=== PATIENT | female | born 1965 | race Caucasian/White ===

== ENCOUNTER 2019-11-11 14:27 | Emergency (ER) | payer SELFPAY ==
[~2019-11-11] VITALS: Ht 160 cm; Wt 81.8 kg
--- NOTE | 2019-11-11 15:09 | ED General ---
General Stated Complaint: TACHY; ELEV BP History of Present Illness Date Seen by Provider: Nov 11, 2019 Time Seen by Provider: 14:30 Initial Comments The patient is a 54-year-old female with a history of hypertension previously on lisinopril but off of her medication for many months. She has no other history of chronic disease and has no cardiac history. She presents with concern for fatigue. Patient states that she woke this morning feeling very fatigued and noticed that she was having some shortness of breath with exertion, although not at rest. She elected to come to the emergency department for evaluation of her fatigue. Upon initial evaluation the emergency department patient's vital signs are notable for mild tachycardia to the 110s and markedly elevated blood pressures with diastolics as high as the 140s and systolics above 200. Patient denies any other specific symptoms and specifically denies fevers, nausea or vomiting, headache, focal weakness, numbness, tingling, neck stiffness/pain/meningismus, chest pain of any kind, flank pain, back pain, abdominal pain, dysuria or hematuria, changes in bowel habits. Patient is alert and oriented and pleasantly and appropriate interactive and in no significant distress upon initial assessment in the emergency department. Allergies and Home Medications Allergies Coded Allergies: No Known Drug Allergies (Unverified , 11/11/19) Patient Home Medication List Home Medication List Reviewed: Yes Review of Systems Review of Systems Constitutional: see HPI All Other Systems Reviewed Negative Unless Noted: Yes (Negative excepted noted.) Past Fqehzoq-Rmkhza-Tmegof Hx Past Med/Social Hx: Reviewed Nursing Past Med/Soc Hx Patient Social History Recent Foreign Travel: No Family Medical History Reviewed Nursing Family Hx Physical Exam Vital Signs Vital Signs - First Documented 11/11/19 15:30 B/P (MAP) 209/133 Capillary Refill : Height, Weight, BMI Height: '" Weight: lbs. oz. kg; BMI Method: General Appearance: No Apparent Distress Comments This is an older female appearing nontoxic and in no acute distress. Head is normocephalic and atraumatic. Neck is supple and nontender. Oropharynx is moist. Lungs are clear to auscultation at all stations. There is a normal S1 and S2 without rubs or gallops and capillary refill is appropriate, less than 2 seconds globally. Abdomen is soft, nontender and nondistended. Skin is warm and dry without cyanosis, clubbing or edema. Psychiatrically, the patient demonstrates appropriate mood and affect and is alert. Progress/Results/Core Measures Suspected Sepsis SIRS Temperature: Pulse: Respiratory Rate: Laboratory Tests 11/11/19 14:47: White Blood Count 10.9 Blood Pressure / Mean: Laboratory Tests 11/11/19 14:47: Creatinine 0.80, INR Comment 1.1, Platelet Count 403H, Total Bilirubin 0.7 Results/Orders Lab Results Laboratory Tests Test 11/11/19 14:47 Range/Units White Blood Count 10.9 4.3-11.0 10^3/uL Red Blood Count 5.50 4.35-5.85 10^6/uL Hemoglobin 13.8 11.5-16.0 G/DL Hematocrit 42 35-52 % Mean Corpuscular Volume 77 L 80-99 FL Mean Corpuscular Hemoglobin 25 25-34 PG Mean Corpuscular Hemoglobin Concent 33 32-36 G/DL Red Cell Distribution Width 14.9 H 10.0-14.5 % Platelet Count 403 H 130-400 10^3/uL Mean Platelet Volume 9.4 7.4-10.4 FL Neutrophils (%) (Auto) 84 H 42-75 % Lymphocytes (%) (Auto) 10 L 12-44 % Monocytes (%) (Auto) 5 0-12 % Eosinophils (%) (Auto) 0 0-10 % Basophils (%) (Auto) 1 0-10 % Neutrophils # (Auto) 9.1 H 1.8-7.8 X 10^3 Lymphocytes # (Auto) 1.1 1.0-4.0 X 10^3 Monocytes # (Auto) 0.6 0.0-1.0 X 10^3 Eosinophils # (Auto) 0.0 0.0-0.3 10^3/uL Basophils # (Auto) 0.1 0.0-0.1 10^3/uL Prothrombin Time 14.3 12.2-14.7 SEC INR Comment 1.1 0.8-1.4 Activated Partial Thromboplast Time 26 24-35 SEC Sodium Level 136 135-145 MMOL/L Potassium Level 3.3 L 3.6-5.0 MMOL/L Chloride Level 100 98-107 MMOL/L Carbon Dioxide Level 22 21-32 MMOL/L Anion Gap 14 5-14 MMOL/L Blood Urea Nitrogen 14 7-18 MG/DL Creatinine 0.80 0.60-1.30 MG/DL Estimat Glomerular Filtration Rate > 60 BUN/Creatinine Ratio 18 Glucose Level 147 H 70-105 MG/DL Calcium Level 8.9 8.5-10.1 MG/DL Corrected Calcium 8.9 8.5-10.1 MG/DL Total Bilirubin 0.7 0.1-1.0 MG/DL Aspartate Amino Transf (AST/SGOT) 35 H 5-34 U/L Alanine Aminotransferase (ALT/SGPT) 32 0-55 U/L Alkaline Phosphatase 148 H 40-136 U/L Troponin I 1.65 *H <0.30 NG/ML Pro-B-Type Natriuretic Peptide 6112.0 H <75.0 PG/ML Total Protein 7.6 6.4-8.2 GM/DL Albumin 4.0 3.2-4.5 GM/DL My Orders Orders - MIHAELA BELL MD Cbc With Automated Diff (11/11/19 15:03) Comprehensive Metabolic Panel (11/11/19 15:03) Troponin I Fs (11/11/19 15:03) Ekg Tracing (11/11/19 15:03) Chest 1 View Ap/Pa Only (11/11/19 15:03) Probnp Fs (11/11/19 15:03) Protime With Inr (11/11/19 15:03) Partial Thromboplastin Time (11/11/19 15:03) Ua Culture If Indicated (11/11/19 15:03) Labetalol Injection (Normodyne Injection (11/11/19 15:15) Aspirin Tablet (Aspirin Tablet) (11/11/19 15:15) Ns (Ivpb) (Sodium C... W/Diltiazem Iv Fo (11/11/19 15:15) Nicardipine Drip (11/11/19 16:15) Medications Given in ED Current Medications Medications Dose Ordered Sig/Foster Route Start Time Stop Time Status Last Admin Dose Admin Aspirin 325 mg ONCE ONCE PO 11/11/19 15:15 11/11/19 15:16 DC 11/11/19 15:22 325 MG Labetalol HCl 10 mg ONCE ONCE IV 11/11/19 15:15 11/11/19 15:16 DC 11/11/19 15:22 10 MG Vital Signs/I&O 11/11/19 15:30 B/P (MAP) 209/133 Capillary Refill : Progress Note : Time: 16:12 Progress Note Workup remarkable for troponin is markedly elevated. Patient is resting comfortably in no acute distress upon reassessment. She is hematin dynamically stable. Blood pressure started to come down on a Cardene drip. The patient has received an aspirin. Case was initially discussed with Dr. Crump of [facility] over [place] is on diversion and there are no beds at [facility] so will transfer to [facility] for admission. Case is discussed with Dr. Luz of [facility] interventional cardiology who recommends no initiation of heparin drip given markedly elevated blood pressures but agrees with aspirin and Cardene drip. He feels the patient is in hypertensive emergency and may have a type II NSTEMI related to this. We will proceed with transfer via EMS. The patient is graciously accepted in admission to the [place] ICU by Dr. Luz. ECG Comment Sinus rhythm, rate 112, ST elevation anterior lateral leads consistent with likely incomplete left bundle branch block, no reciprocal depressions, LA 161, QRS 106, QTC 459, EP interpretation. Repeat EKG sinus rhythm, rate 110, ST elevation anterior lateral leads consi stent with likely incomplete left bundle branch block, no reciprocal depressions, LA 163, QRS 108, QTc 463, EP interpretation. Both EKGs with machine rate of acute AK however case discussed with Dr. Crump of [facility] and then again with Dr. Luz of [facility] cardiology who reviewed EKGs with me and agree this does not represent acute STEMI. Diagnostic Imaging Comments CHEST 1 VIEW AP/PA ONLY INDICATION: Chest pressure. TIME OF EXAM: 3:45 p.m. COMPARISON: No prior studies are available for comparison. FINDINGS: The heart is enlarged. There appears to be some patchy density in the lung bases suggestive of pneumonia. Mid and upper lung arteaga are clear. No effusion or pneumothorax is identified. IMPRESSION: Cardiomegaly with patchy bibasilar infiltrates. Critical Care Note Critical Care Total Time (minutes) 48 Departure Impression Primary Impression: NSTEMI (non-ST elevated myocardial infarction) Additional Impression: Hypertensive emergency Disposition: 02 XFER SHT-TRM HOSP Condition: Stable Transfer Transfer Reason: Exceeds level of care Time Spoke to Accepting Phy: 15:30 Transfer Progress Notes [facility] has no beds. Transferring to Dr. Luz at [facility]. Transfer Facility: [facility] Method of Transfer: EMS Departure-Patient Inst. Referrals: BLUE ROSAS MD (PCP) Primary Care Physician KARTIK HEREDIA APRN (Family) Primary Care Physician MIHAELA BELL MD Nov 11, 2019 15:09 POS
[2019-11-11 15:14] LABS: HEMATOCRIT 42 % (35-52); HEMOGLOBIN 13.8 G/DL (11.5-16.0); MEAN CORPUSCULAR HEMOGLOBIN 25 PG (25-34); WHITE BLOOD COUNT 10.9 10^3/uL (4.3-11.0)
[2019-11-11 15:15] LABS: BASOPHILS # (AUTO) 0.1 10^3/uL (0.0-0.1); BASOPHILS % (AUTO) 1 % (0-10); EOSINOPHILS % (AUTO) 0 % (0-10); LYMPHOCYTES # (AUTO) 1.1 X 10^3 (1.0-4.0); LYMPHOCYTES % (AUTO) 10 % (12-44); MEAN CORPUSCULAR HGB CONC 33 G/DL (32-36); MEAN CORPUSCULAR VOLUME 77 FL (80-99); MEAN PLATELET VOLUME 9.4 FL (7.4-10.4); MONOCYTES # (AUTO) 0.6 X 10^3 (0.0-1.0); MONOCYTES % (AUTO) 5 % (0-12); NEUTROPHILS # (AUTO) 9.1 X 10^3 (1.8-7.8); NEUTROPHILS % (AUTO) 84 % (42-75); PLATELET COUNT 403 10^3/uL (130-400); RED CELL DISTRIBUTION WIDTH 14.9 % (10.0-14.5)
[2019-11-11] MEDS ORDERED: LABETALOL HCL 20 MG/4 ML VIAL IV ONE (15:15)
[2019-11-11] MEDS ORDERED: DILTIAZEM IV FOR DRIP 125 MG in NS (IVPB) 100 ML IV SCH (15:15)
[2019-11-11] MEDS ORDERED: ASPIRIN 325 MG (5 GR) TABLET PO ONE (15:15)
[2019-11-11 15:22] LABS: INR 1.1 (0.8-1.4); PROTHROMBIN TIME PATIENT 14.3 SEC (12.2-14.7)
[2019-11-11 15:38] LABS: BUN/CREATININE RATIO 18; CALCIUM 8.9 MG/DL (8.5-10.1); CARBON DIOXIDE 22 MMOL/L (21-32); CHLORIDE 100 MMOL/L (98-107); GFR ESTIMATED > 60; GLUCOSE 147 MG/DL (70-105); POTASSIUM 3.3 MMOL/L (3.6-5.0); SODIUM 136 MMOL/L (135-145)
[2019-11-11 15:39] LABS: ALANINE AMINOTRANSFERASE 32 U/L (0-55); ALKALINE PHOSPHATASE 148 U/L (40-136); BILIRUBIN,TOTAL 0.7 MG/DL (0.1-1.0); TOTAL PROTEIN 7.6 GM/DL (6.4-8.2)
--- NOTE | 2019-11-11 15:44 | NUR ---
Called [facility] at this time and they declined flight due to weather (ice and snow).
--- NOTE | 2019-11-11 15:58 | Diagnostic Imaging Report ---
INDICATION: Chest pressure. TIME OF EXAM: 3:45 p.m. COMPARISON: No prior studies are available for comparison. FINDINGS: The heart is enlarged. There appears to be some patchy density in the lung bases suggestive of pneumonia. Mid and upper lung arteaga are clear. No effusion or pneumothorax is identified. IMPRESSION: Cardiomegaly with patchy bibasilar infiltrates. Dictated by: Dictated on workstation # [id number]
[2019-11-11] MEDS ORDERED: niCARdipine IV FOR DRIP 50 MG KIT ONE (16:11)
[2019-11-11] MEDS ORDERED: NS (IVPB) 250 ML ONE (16:11)
[2019-11-11] MEDS ORDERED: niCARdipine IV 50 MG in NS (IVPB) 230 ML IV SCH (16:15)
[2019-11-11 16:57] VITALS: BP 169/101
== END 2019-11-11 17:00 | disposition short-term general hospital (02) ==
LOC: ER FS 14:29
DX: I21.4 Non-ST elevation (NSTEMI) myocardial infarction (principal); I16.1 Hypertensive emergency; I10 Essential (primary) hypertension
CPT/HCPCS: 36415; 71045; 80053; 83880; 84484; 85025; 85610; 85730; 93005

== ENCOUNTER 2020-03-04 17:28 | Emergency (ER) | payer SELFPAY ==
[~2020-03-04] VITALS: Ht 160 cm; Wt 73.3 kg
--- OUTSIDE RECORDS SUMMARY | 2020-03-04 17:32 | XMS REPORT | Continuity of Care Document ---
Author Organization Unknown Address Unknown Phone Unavailable Allergies Active Description Code Type Severity Reaction Onset Reported/Identified Relationship to Patient Clinical Status Yes No Known Drug Allergies [id number] Drug Allergy Unknown N/A 11/11/2019 Medications There is no data. Problems There is no data. Procedures There is no data. Results Test Result Range Complete blood count (CBC) with automate d white blood cell (WBC) differential - 11/11/19 14:47 Blood leukocytes automated count (number/volume) 10.9 10*3/uL 4.3-11.0 Blood erythrocytes automated count (number/volume) 5.50 10*6/uL 4.35-5.85 Venous blood hemoglobin measurement (mass/volume) 13.8 g/dL 11.5-16.0 Blood hematocrit (volume fraction) 42 % 35-52 Automated erythrocyte mean corpuscular volume 77 [ foz_us] 80-99 Automated erythrocyte mean corpuscular h emoglobin (mass per erythrocyte) 25 pg 25-34 Automated erythrocyte mean corpuscular h emoglobin concentration measurement (mass/volume) 33 g/dL 32-36 Automated erythrocyte distribution width ratio 14. 9 % 10.0- 14.5 Automated blood platelet count (count/volume) 403 10*3/uL 130-400 Automated blood platelet mean volume measurement 9.4 [foz_us] 7.4-10.4 Automated blood neutrophils/100 leukocytes 84 % 42-75 Automated blood lymphocytes/100 leukocytes 10 % 12-44 Blood monocytes/100 leukocytes 5 % 0-12 Automated blood eosinophils/100 leukocytes 0 % 0-10 Automated blood basophils/100 leukocytes 1 % 0-10 Blood neutrophils automated count (number/volume) 9.1 10*3 1.8-7.8 Blood lymphocytes automated count (number/volume) 1.1 10*3 1.0-4.0 Blood monocytes automated count (number/volume) 0. 6 10*3 0.0-1.0 Automated eosinophil count 0.0 10*3/uL 0 .0-0.3 Automated blood basophil count (count/volume) 0.1 10*3/uL 0.0-0.1 PT panel in platelet poor plasma by coag ulation assay - 11/11/19 14:47 Prothrombin time (PT) in platelet poor plasma by coagu lation assay 14.3 s 12.2-14.7 INR in platelet poor plasma or blood by coagulation as say 1.1 0.8-1.4 Activated partial thromboplastin time (a PTT) in platelet poor plasma bycoagulation assay - 11/11/19 14:47 Activated partial thromboplastin time (a PTT) in platelet poor plasma bycoagulation assay 26 s 24-35 Comprehensive metabolic panel - 11/11/19 14:47 Serum or plasma sodium measurement (moles/volume) 136 mmol/L 135-145 Serum or plasma potassium measurement (moles/volume) 3.3 mmol/L 3.6-5.0 Serum or plasma chloride measurement (moles/volume) 100 mmol/L 98-107 Carbon dioxide 22 mmol/L 21-32 Serum or plasma anion gap determination (moles/volume) 14 mmol/L 5-14 Serum or plasma urea nitrogen measurement (mass/volume ) 14 mg/dL 7-18 Serum or plasma creatinine measurement (mass/volume) 0.80 mg/dL 0.60-1.30 Serum or plasma urea nitrogen/creatinine mass ratio 18 NRG Serum or plasma creatinine measurement w ith calculation of estimated glomerular filtration rate > NRG Serum or plasma glucose measurement (mass/volume) 147 mg/dL 70-105 Serum or plasma calcium measurement (mass/volume) 8.9 mg/dL 8.5-10.1 Serum or plasma total bilirubin measurement (mass/volu me) 0.7 mg/dL 0.1-1.0 Serum or plasma alkaline phosphatase patrizia surement (enzymatic activity/volume) 148 U/L 40-136 Serum or plasma aspartate aminotransfera se measurement (enzymatic activity/volume) 35 U/L 5-34 Serum or plasma alanine aminotransferase measurement (enzymatic activity/volume) 32 U/L 0-55 Serum or plasma protein measurement (mass/volume) 7.6 g/dL 6.4-8.2 Serum or plasma albumin measurement (mass/volume) 4.0 g/dL 3.2-4.5 CALCIUM CORRECTED 8.9 mg/dL 8.5-10.1 TROPONIN I FS - 11/11/19 14:47 TROPONIN I FS 1.65 ng/mL <0.30 PROBNP FS - 11/11/19 14:47 PROBNP FS 6112.0 pg/mL <75.0 Encounters ACCT No. Visit Date/Time Discharge Status Pt. Type Provider Facility Loc./Unit Complaint [id number] 11/11/2019 14:29:00 019 17:00:00 DIS Emergency RAY COPPOLA, MIHAELA Blake [facility] ER FS TACHY; ELEV BP [id number] 03/04/2020 17:29:[address] Emergency ANNIE GONZALEZ DO [facility] ER FS CONSTIPATION
[2020-03-04] MEDS ORDERED: ONDANSETRON 4 MG/2 ML (SDV) Z0FRAN IVP ONE (17:45)
[2020-03-04] MEDS ORDERED: fentaNYL INJECTION 100 MCG/2 ML AMP IVP ONE ×2 (17:45→19:00)
--- NOTE | 2020-03-04 17:45 | ED Abdominal Pain ---
General Chief Complaint: Abdominal/GI Problems Stated Complaint: CONSTIPATION Source of Information: Patient Exam Limitations: No Limitations History of Present Illness Date Seen by Provider: Mar 04, 2020 Time Seen by Provider: 17:30 Initial Comments Patient presents from [facility] where she was seen to arrival for abdominal pain. Patient complains of having 2 weeks of constipation, not relieved by taking MiraLAX. History of constipation, but never this bad. States that yesterday her abdomen became much larger. States that she has lost her appetite, although she is still drinking. She does have some nausea but has not been vomiting. Denies any chest pain, shortness of air, cough or fever. De nies any recent illness or known exposure to COVID-19 Allergies and Home Medications Allergies Coded Allergies: No Known Drug Allergies (Unverified , 11/11/19) Patient Home Medication List Home Medication List Reviewed: Yes Review of Systems Review of Systems Constitutional: see HPI; No dizziness, No fever; malaise; No weakness Respiratory: Denies Cough, Denies Shortness of Air Cardiovascular: Denies Chest Pain, Denies Irregular Heart Rate, Denies Lightheadedness, Denies Palpitations, Denies Syncope Gastrointestinal: See HPI, Abdomen Distended, Abdominal Pain, Constipated, Nausea, Poor Appetite; Denies Vomiting Genitourinary: Denies Frequency, Denies Flank Pain, Denies Hematuria, Denies Pain, Denies Urgency Musculoskeletal: No back pain, No joint pain Skin: No change in color, No lesions, No pruritus, No rash Past Jcngbbg-Kjljhr-Auwhtk Hx Past Med/Social Hx: Reviewed Nursing Past Med/Soc Hx Patient Social History Alcohol Use: Denies Use Recreational Drug Use: No Smoking Status: Never a Smoker 2nd Hand Smoke Exposure: No Recent Foreign Travel: No Contact w/Someone Who Travel: No Recent Hopitalizations: No Physical Abuse: No Sexual Abuse: No Mistreated: No Fear: No Seasonal Allergies Seasonal Allergies: No Past Medical History Surgeries: No Respiratory: No Cardiac: Yes Heart Attack, Hypertension Neurological: No Genitourinary: No Gastrointestinal: No Musculoskeletal: No Endocrine: No HEENT: No Cancer: No Psychosocial: No Integumentary: No Physical Exam Vital Signs Vital Signs - First Documented 03/04/20 17:35 Temp 36.2 Pulse 84 Resp 16 B/P (MAP) 123/78 (93) Pulse Ox 96 O2 Delivery Room Air Capillary Refill : Height/Weight/BMI Height: '" Weight: lbs. oz. kg; 31.00 BMI Method: General Appearance: WD/WN, no apparent distress Respiratory: chest non-tender, lungs clear Cardiovascular: regular rate, rhythm, no edema, no gallop, no JVD, no murmur Gastrointestinal: abnormal bowel sounds (hypoactive), distended; No rebound; tenderness; No hernia, No mass Extremities: non-tender, no pedal edema, no calf tenderness Back: normal inspection, no CVA tenderness, no vertebral tenderness Neurologic/Psychiatric: no motor/sensory deficits, alert, normal mood/affect, oriented x 3 Skin: normal color, warm/dry Focused Exam Lactate Level 03/04/20 18:00: Lactic Acid Level 1.75 Lactic Acid Level Laboratory Tests Test 03/04/20 18:00 Lactic Acid Level 1.75 MMOL/L (0.50-2.00) Progress/Results/Core Measures Results/Orders Lab Results Laboratory Tests Test 03/04/20 17:40 03/04/20 18:00 03/04/20 18:10 Range/Units White Blood Count 43.1 *H 4.3-11.0 10^3/uL Red Blood Count 5.69 4.35-5.85 10^6/uL Hemoglobin 13.5 11.5-16.0 G/DL Hematocrit 41 35-52 % Mean Corpuscular Volume 71 L 80-99 FL Mean Corpuscular Hemoglobin 24 L 25-34 PG Mean Corpuscular Hemoglobin Concent 33 32-36 G/DL Red Cell Distribution Width 22.5 H 10.0-14.5 % Platelet Count 318 130-400 10^3/uL Mean Platelet Volume 10.0 7.4-10.4 FL Neutrophils (%) (Auto) 88 H 42-75 % Lymphocytes (%) (Auto) 3 L 12-44 % Monocytes (%) (Auto) 8 0-12 % Eosinophils (%) (Auto) 0 0-10 % Basophils (%) (Auto) 0 0-10 % Neutrophils # (Auto) 38.1 H 1.8-7.8 X 10^3 Lymphocytes # (Auto) 1.0 1.0-4.0 X 10^3 Monocytes # (Auto) 3.3 H 0.0-1.0 X 10^3 Eosinophils # (Auto) 0.0 0.0-0.3 10^3/uL Basophils # (Auto) 0.1 0.0-0.1 10^3/uL Neutrophils % (Manual) 95 % Lymphocytes % (Manual) 4 % Monocytes % (Manual) 0 % Eosinophils % (Manual) 0 % Basophils % (Manual) 0 % Band Neutrophils 1 % Poikilocytosis SLIGHT Sodium Level 134 L 135-145 MMOL/L Potassium Level 4.3 3.6-5.0 MMOL/L Chloride Level 93 L 98-107 MMOL/L Carbon Dioxide Level 22 21-32 MMOL/L Anion Gap 19 H 5-14 MMOL/L Blood Urea Nitrogen 69 H 7-18 MG/DL Creatinine 1.58 H 0.60-1.30 MG/DL Estimat Glomerular Filtration Rate 34 BUN/Creatinine Ratio 44 Glucose Level 179 H 70-105 MG/DL Calcium Level 9.5 8.5-10.1 MG/DL Corrected Calcium 9.7 8.5-10.1 MG/DL Total Bilirubin 1.0 0.1-1.0 MG/DL Aspartate Amino Transf (AST/SGOT) 20 5-34 U/L Alanine Aminotransferase (ALT/SGPT) 20 0-55 U/L Alkaline Phosphatase 111 40-136 U/L Total Protein 7.3 6.4-8.2 GM/DL Albumin 3.8 3.2-4.5 GM/DL Lactic Acid Level 1.75 0.50-2.00 MMOL/L Urine Color YELLOW Urine Clarity CLOUDY Urine pH 6.0 5-9 Urine Specific [place] >=1.030 1.016-1.022 Urine Protein NEGATIVE NEGATIVE Urine Glucose (UA) 1+ H NEGATIVE Urine Ketones NEGATIVE NEGATIVE Urine Nitrite POSITIVE H NEGATIVE Urine Bilirubin NEGATIVE NEGATIVE Urine Urobilinogen 0.2 < = 1.0 MG/DL Urine Leukocyte Esterase NEGATIVE NEGATIVE Urine RBC (Auto) 1+ H NEGATIVE Urine RBC 0-2 /HPF Urine WBC 5-10 H /HPF Urine Squamous Epithelial Cells 5-10 /HPF Urine Crystals NONE /LPF Urine Bacteria LARGE H /HPF Urine Casts NONE /LPF Urine Mucus SMALL H /LPF Urine Culture Indicated YES My Orders Orders - ROVENSTINE,ANNIE L DO Ed Iv/Invasive Line Start (03/04/20 17:40) Cbc With Automated Diff (03/04/20 17:40) Comprehensive Metabolic Panel (03/04/20 17:40) Lactic Acid Analyzer (03/04/20 17:40) Urinalysis (03/04/20 17:40) Fentanyl Injection (Sublimaze Injection (03/04/20 17:45) Ondansetron Injection (Zofran Injectio (03/04/20 17:45) Manual Differential (03/04/20 17:40) Ct Abdomen/Pelvis Wo (03/04/20 17:40) Urine Culture (03/04/20 18:10) Fentanyl Injection (Sublimaze Injection (03/04/20 19:00) Medications Given in ED Current Medications Medications Dose Ordered Sig/Foster Route Start Time Stop Time Status Last Admin Dose Admin Fentanyl Citrate 50 mcg ONCE ONCE IVP 03/04/20 17:45 03/04/20 17:46 DC 03/04/20 17:50 50 MCG Fentanyl Citrate 50 mcg ONCE ONCE IVP 03/04/20 19:00 03/04/20 19:01 DC 03/04/20 19:03 50 MCG Ondansetron HCl 4 mg ONCE ONCE IVP 03/04/20 17:45 03/04/20 17:46 DC 03/04/20 17:50 4 MG Vital Signs/I&O 03/04/20 17:35 Temp 36.2 Pulse 84 Resp 16 B/P (MAP) 123/78 (93) Pulse Ox 96 O2 Delivery Room Air Progress Progress Note : Progress Note After RAD report called Dr Ji (Gen Surg) @ [phone] who [email or web address]. Spoke to Dr Ej Oro @ [phone] who accepts for transfer to [facility] ER. Discussed w pt risk of transfer and benefit of surgical eval and treatment. She agrees and understands. Vitals stable, pain improved, but persists. Nausea improved and no vomiting. Diagnostic Imaging Diagonstic Imaging: CT Plain Films/CT/US/NM/MRI: abdomen Comments FINDINGS: The visualized portions of the lung bases are clear. There is no pleural fluid collection. There is no free intraperitoneal air. The liver and gallbladder appear normal without contrast. The spleen, adrenals and pancreas appear normal. The kidneys, bilaterally, appear unremarkable. There is no retroperitoneal mass. There is no ascites. There is marked diffuse colonic distention down to the level of the sigmoid colon. The sigmoid colon shows an abrupt obstruction with possible twist, highly suspicious for obstructing sigmoid volvulus. The rectum and sigmoid colon are not distended. There is a periumbilical hernia containing fat as well as some fluid with a questionable hematocrit level. IMPRESSION: Findings suspicious for obstruction of the colon at the sigmoid level, suspicious for a sigmoid volvulus with obstruction. There is a periumbilical hernia containing some fluid with questionable hematocrit level. Dictated on workstation # [id number] Dict: 03/04/20 1834 Trans: 03/04/20 1842 PJE [id number] Interpreted by: SO PAPPAS MD Electronically signed by: Departure Impression Primary Impression: Abdominal pain Qualified Codes: R10.84 - Generalized abdominal pain Additional Impression: Bowel obstruction Qualified Codes: K56.2 - Volvulus Disposition: XFER SHT-TRM HOSP Condition: Stable Transfer Transfer Reason: Exceeds level of care Transfer Time: 18:57 Transfer Facility: transfer ER to ER for surgical eval by Dr Ji. Departure-Patient Inst. Referrals: BLUE ROSAS MD (PCP) Primary Care Physician KARTIK HEREDIA APRN (Family) Primary Care Physician ANNIE GONZALEZ DO Mar 04, 2020 17:45
[2020-03-04 17:50] LABS: WHITE BLOOD COUNT 43.1 10^3/uL (4.3-11.0)
[2020-03-04 17:51] LABS: BASOPHILS % (AUTO) 0 % (0-10); EOSINOPHILS % (AUTO) 0 % (0-10); HEMATOCRIT 41 % (35-52); HEMOGLOBIN 13.5 G/DL (11.5-16.0); MEAN CORPUSCULAR HEMOGLOBIN 24 PG (25-34); MEAN CORPUSCULAR HGB CONC 33 G/DL (32-36); MEAN CORPUSCULAR VOLUME 71 FL (80-99); MONOCYTES % (AUTO) 8 % (0-12); NEUTROPHILS % (AUTO) 88 % (42-75); PLATELET COUNT 318 10^3/uL (130-400); RED CELL DISTRIBUTION WIDTH 22.5 % (10.0-14.5)
[2020-03-04 17:52] LABS: BASOPHILS # (AUTO) 0.1 10^3/uL (0.0-0.1); LYMPHOCYTES % (AUTO) 3 % (12-44); MONOCYTES # (AUTO) 3.3 X 10^3 (0.0-1.0); NEUTROPHILS # (AUTO) 38.1 X 10^3 (1.8-7.8)
[2020-03-04 18:10] LABS: CALCIUM 9.5 MG/DL (8.5-10.1); CREATININE SERUM 1.58 MG/DL (0.60-1.30); POTASSIUM 4.3 MMOL/L (3.6-5.0)
[2020-03-04 18:11] LABS: ALBUMIN 3.8 GM/DL (3.2-4.5); TOTAL PROTEIN 7.3 GM/DL (6.4-8.2)
[2020-03-04 18:18] LABS: BAND NEUTROPHILS 1 %; BASOPHILS % (MANUAL) 0 %; EOSINOPHILS % (MANUAL) 0 %; LYMPHOCYTES % (MANUAL) 4 %; MONOCYTES % (MANUAL) 0 %; NEUTROPHILS % (MANUAL) 95 %; POIKILOCYTOSIS SLIGHT
[2020-03-04 18:33] LABS: BILIRUBIN,URINE NEGATIVE (NEGATIVE); CLARITY,URINE CLOUDY; COLOR,URINE YELLOW; GLUCOSE, URINE (UA) 1+ (NEGATIVE); KETONES,URINE NEGATIVE (NEGATIVE); LEUKOCYTE ESTERASE ,URINE NEGATIVE (NEGATIVE); NITRITE,URINE POSITIVE (NEGATIVE); PROTEIN,URINE NEGATIVE (NEGATIVE); RBC,URINE 0-2 /HPF
[2020-03-04 18:34] LABS: BACTERIA,URINE LARGE /HPF
--- NOTE | 2020-03-04 18:43 | Diagnostic Imaging Report ---
INDICATION: Abdominal pain. EXAMINATION: CT abdomen and pelvis obtained without IV contrast. TECHNIQUE: Multiple contiguous axial images were obtained through the abdomen and pelvis without the use of intravenous contrast. Auto Exposure Controls were utilized during the CT exam to meet ALARA standards for radiation dose reduction. COMPARISON: There is no prior study for comparison. FINDINGS: The visualized portions of the lung bases are clear. There is no pleural fluid collection. There is no free intraperitoneal air. The liver and gallbladder appear normal without contrast. The spleen, adrenals and pancreas appear normal. The kidneys, bilaterally, appear unremarkable. There is no retroperitoneal mass. There is no ascites. There is marked diffuse colonic distention down to the level of the sigmoid colon. The sigmoid colon shows an abrupt obstruction with possible twist, highly suspicious for obstructing sigmoid volvulus. The rectum and sigmoid colon are not distended. There is a periumbilical hernia containing fat as well as some fluid with a questionable hematocrit level. IMPRESSION: Findings suspicious for obstruction of the colon at the sigmoid level, suspicious for a sigmoid volvulus with obstruction. There is a periumbilical hernia containing some fluid with questionable hematocrit level. Dictated by: Dictated on workstation # [id number]
[2020-03-04 19:17] VITALS: BP 119/85
[2020-03-05] MEDS ORDERED: SPIR25TA PO (15:10)
[2020-03-05] MEDS ORDERED: CRV25T PO (15:10)
[2020-03-05] MEDS ORDERED: APIX5TAB PO (15:10)
== END 2020-03-04 19:14 | disposition short-term general hospital (02) ==
LOC: EDUNIT# 17:28 → ER FS 17:29
DX: K56.609 Unspecified intestinal obstruction, unspecified as to partial versus complete obstruction (principal)
CPT/HCPCS: 36415; 74176; 80053; 81000; 83605; 85007; 85027; 87077; 87088; 96374; 96375; 96376

== ENCOUNTER 2020-03-04 19:48 | Inpatient (IN) | payer SELFPAY ==
[~2020-03-04] VITALS: Ht 160 cm; Wt 88.3 kg
[2020-03-04] MEDS ORDERED: fentaNYL INJECTION 100 MCG/2 ML AMP IVP ONE (20:00)
[2020-03-04] MEDS ORDERED: LACTATED RINGERS 1,000 ML IV SCH (20:30)
--- NOTE | 2020-03-04 20:44 | History & Physical-Surgical ---
History of Present Illness History of Present Illness Reason for visit/HPI Surgery was asked to admit pt secondary to Sigmoid Volvulus. HPI per ED: Patient presents from [facility] where she was seen to arrival for abdominal pain. Patient complains of having 2 weeks of constipation, not relieved by taking MiraLAX. History of constipation, but never this bad. States that yesterday her abdomen became much larger. States that she has lost her appetite, although she is still drinking. She does have some nausea but has not been vomiting. Denies any chest pain, shortness of air, cough or fever. Denies any recent illness or known exposure to COVID-19 When I spoke with pt kiana in the ER she stated she has not really been able to eat much over past 2 weeks. She has not had a BM, but still is passing some flatus. States her belly is not normally this big and reports her pain as 10 out of 10 only helped by pain meds. Movements and bouncing around in the ambulance made pain worse. Pain is all over her abdomen and does not really radiate anywhere. She describes the pain as constant dull ache with occasional sharp shooting pains. Date of Admission Mar 04, 2020 at 20:27 Time Seen by a Provider: 20:12 I consulted on this patient on 03/04/20 20:38 Attending Physician Sheila Ji DO Admitting Physician Veda Rm MD Consult Allergies and Home Medications Allergies Coded Allergies: No Known Drug Allergies (Unverified , 11/11/19) Patient Home Medication List Home Medication List Reviewed: Yes Past Ssnkuqp-Gfpnnc-Cdwikw Hx Patient Social History Alcohol Use: Denies Use Recreational Drug Use: No Smoking Status: Never a Smoker 2nd Hand Smoke Exposure: No Recent Foreign Travel: No Contact w/Someone Who Travel: No Recent Infectious Disease Expo: No Recent Hopitalizations: No Seasonal Allergies Seasonal Allergies: No Surgeries History of Surgeries: Yes Surgeries: Cardiac, Coronary Stent Respiratory History of Respiratory Disorde: No Cardiovascular History of Cardiac Disorders: Yes (Heart Failure) Cardiac Disorders: Heart Attack, High Cholesterol, Hypertension Neurological History of Neurological Disord: No Genitourinary History of Genitourinary Disor: No Gastrointestinal History of Gastrointestinal Di: No Musculoskeletal History of Musculoskeletal Dis: No Endocrine History of Endocrine Disorders: No HEENT History of HEENT Disorders: No Cancer History of Cancer: No Psychosocial History of Psychiatric Problem: No Integumentary History of Skin or Integumenta: No Family Medical History Significant Family History: Hypertension (mother), Other Conditions/Hx (Mother of anuerysm and her father when she 2-3; doesn't know of what) Review of Systems Constitutional: diaphoresis, malaise, weakness EENTM: No blurred vision, No double vision, No mouth pain, No mouth swelling, No epistaxis Respiratory: No cough, No dyspnea on exertion, No short of breath Cardiovascular: No chest pain, No edema; Hx of Intervention; No palpitations Gastrointestinal: abdominal pain, constipation; No hematemesis, No jaundice; loss of appetite, nausea; No vomiting Genitourinary: No dysuria, No frequency, No hematuria Musculoskeletal: joint pain, joint swelling, muscle stiffness, muscle weakness Skin: No change in color, No change in hair/nails Psychiatric/Neurological: Denies Anxiety, Denies Depressed, Denies Tremors HEMATOLOGIC - Pt denies any hx of abnormal bleeding or bruising Physical Exam Vital Signs Vital Signs - First Documented 03/04/20 19:52 Temp 36.4 Pulse 80 Resp 17 B/P (MAP) 112/76 (88) Pulse Ox 97 O2 Delivery Nasal Cannula O2 Flow Rate 2.00 Capillary Refill : Less Than 3 Seconds Height, Weight, BMI Height: '" Weight: lbs. oz. kg; 28.00 BMI Method: General Appearance: Chronically ill, Moderate Distress Eyes: Bilateral Eye PERRL, Bilateral Eye EOMI HEENT: Pharynx Normal; No Scleral Icterus (L), No Scleral Icterus (R); Other (mucous membranes are very dry) Neck: Non Tender, Supple Respiratory: Chest Non Tender, Lungs Clear, Normal Breath Sounds, No Accessory Muscle Use, No Respiratory Distress Cardiovascular: Regular Rate, Rhythm, No Edema, No Murmur Gastrointestinal: No Organomegaly, Abnormal Bowel Sounds, Distended (looks bigger than if she was 9 months ), Hernia (large umbilical hernia, incarcerated) Rectal: Deferred Back: No CVA Tenderness, No Vertebral Tenderness Extremity: Normal Capillary Refill, Non Tender, No Calf Tenderness Neurologic/Psychiatric: Alert, Oriented x3, No Motor/Sensory Deficits, Normal Mood/Affect, assembler skylights II-XII Norm as Tested Skin: Normal Color, Warm/Dry Lymphatic: No Adenopathy (neck, axilla or groin) Data Review Radiology CT ABDOMEN/PELVIS WO INDICATION: Abdominal pain. EXAMINATION: CT abdomen and pelvis obtained without IV contrast. TECHNIQUE: Multiple contiguous axial images were obtained through the abdomen and pelvis without the use of intravenous contrast. Auto Exposure Controls were utilized during the CT exam to meet ALARA standards for radiation dose reduction. COMPARISON: There is no prior study for comparison. FINDINGS: The visualized portions of the lung bases are clear. There is no pleural fluid collection. There is no free intraperitoneal air. The liver and gallbladder appear normal without contrast. The spleen, adrenals and pancreas appear normal. The kidneys, bilaterally, appear unremarkable. There is no retroperitoneal mass. There is no ascites. There is marked diffuse colonic distention down to the level of the sigmoid colon. The sigmoid colon shows an abrupt obstruction with possible twist, highly suspicious for obstructing sigmoid volvulus. The rectum and sigmoid colon are not distended. There is a periumbilical hernia containing fat as well as some fluid with a questionable hematocrit level. IMPRESSION: Findings suspicious for obstruction of the colon at the sigmoid level, suspicious for a sigmoid volvulus with obstruction. There is a periumbilical hernia containing some fluid with questionable hematocrit level. 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 Recovery from colon resection will mean at least 3-4 day stay in the hospital. 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 If that is successful, then the next step would be bowel prep and probably to OR on Monday for colon resection; because this will reoccur and therefore must remove the redundant colon. If I am unsuccessful at decompression tonight, then pt will go straight to Exploratory Laparotomy with possible bowel resection. I plan on doing the colonoscopy in the OR, just in case we need to do the Laparotomy. I explained all of this to the pt and went over risks and complications not limited to pain, bleeding, infection, scar and damage to bowel. In fact there is a higher than normal chance that the colonoscopy could cause a perforation because the colon is thinned out by the large distention. She will be made NPO, IV fluids will be started, pain control, anti-emetics, IV ABX and will get consent. Will replace electrolytes as well. Hopefully the acute kidney insufficiency is just dehydration and IV fluids will help that resolve. All questions answered to her satisfaction. SHEILA JI DO Mar 04, 2020 20:44
--- NOTE | 2020-03-04 21:25 | NUR ---
BK YOUNG admitted to room 418-1, with an admitting diagnosis of SIGMOID VOLVULUS AND LEUKOCYTOSIS, on 03/04/20 from ed via cart, accompanied by staff.BK YOUNG introduced to surroundings, call light, bed controls, phone, TV, temperature control, lights, meal times, smoking policy, visitor policy, side rail policy, bathrooms and showers. Patient Rights given to patient in the handbook.BK YOUNG verbalizes understanding that [facility] is not responsible for the loss or damage to any personal effects or valuables that are kept in the patients posession during their hospitalization. The following Patient Care Plans were discussed with BK YOUNG: Discharge Planning, SIGMOID VOLVULUS AND LEUKOCYTOSIS. BK YOUNG verbalizes understanding of Interdisciplinary Patient Education. Patient and/or family were informed about the Rapid Response Team and its purpose.
[2020-03-04 21:47] VITALS: BP 129/76
[2020-03-04] MEDS: fentaNYL INJECTION 100 MCG/2 ML AMP IVP PRN (22:02)
[2020-03-04] MEDS: LACTATED RINGERS 1,000 ML IV SCH (22:02)
[2020-03-04] MEDS ORDERED: ONDANSETRON 4 MG/2 ML (SDV) Z0FRAN IV PRN (22:45)
[2020-03-04 22:55] VITALS: BP 129/76
[2020-03-04] MEDS ORDERED: RT-ALBUTEROL SULF 2.5 MG/3 ML PRE-MIX VIAL INH PRN (23:00)
[2020-03-04] MEDS ORDERED: ONDANSETRON 4 MG/2 ML (SDV) Z0FRAN ONE (23:10)
[2020-03-04] MEDS ORDERED: LIDOCAINE PF 2% 5 ML (XYLOCAINE) VIAL ONE (23:10)
[2020-03-04] MEDS ORDERED: proPOfol 200 MG/20 ML (DIPRIVAN) VIAL IV ONE (23:10)
[2020-03-04] MEDS ORDERED: fentaNYL INJECTION 100 MCG/2 ML AMP ONE (23:10)
--- NOTE | 2020-03-04 23:10 | NUR ---
PATIENT LEFT UNIT FOR SURGERY
[2020-03-04] MEDS: LACTATED RINGERS 1,000 ML IV PRN (23:25)
[2020-03-04] MEDS ORDERED: KETAMINE/NaCl 50 MG/5 ML SYRINGE (ED ONLY) ONE (23:25)
[2020-03-04] MEDS ORDERED: ETOMIDATE IV SOLN 20 MG/10 ML VIAL ONE (23:30)
[2020-03-05] VITALS (34 sets, daily range): BP systolic 84–140; BP diastolic 45–81
[2020-03-05] MEDS ORDERED: KETOROLAC 15 MG/ML VIAL IV SCH
[2020-03-05] MEDS ORDERED: VASOPRESSIN INJECTION 20 UNIT/ML VIAL ONE (00:01)
[2020-03-05] MEDS ORDERED: MIDAZOLAM 2 MG/2 ML (VERSED) VIAL ONE (00:14)
[2020-03-05] MEDS ORDERED: NS IV 500 ML 500 ML IV SCH ×2 (00:15)
[2020-03-05] MEDS ORDERED: PROPOFOL INJECTION 50 ML IV ONE (00:16)
[2020-03-05] MEDS ORDERED: ceFAZolin INJECTION 2,000 MG ONE (00:16)
[2020-03-05] MEDS: LACTATED RINGERS 1,000 ML IV PRN ×2 (00:18→01:26)
[2020-03-05] MEDS ORDERED: HYDROmorphone 2 MG/ML VIAL (DILAUDID) ONE ×2 (00:25→01:43)
[2020-03-05] MEDS ORDERED: SEVOFLURANE (ULTANE) 15 ML INHAL SOLN ONE ×2 (00:33→01:10)
[2020-03-05] MEDS ORDERED: ceFAZolin 2 GM IV Premixed 50 ML IV ONE (00:45)
[2020-03-05] MEDS ORDERED: LACTATED RINGERS 1,000 ML IV PRN (01:13)
[2020-03-05] MEDS ORDERED: NS IV 1000 ML 0 ML ONE (01:19)
[2020-03-05] MEDS ORDERED: LACTATED RINGERS 1,000 ML IV SCH ×2 (01:59→03:30)
--- NOTE | 2020-03-05 01:59 | Progress Note-Post Operative ---
Post-Operative Progess Note Surgeon (s)/Brush Fabrication Supervisor (s) Surgeon SHEILA DE OLIVEIRA DO [employer] Supervisor: Brendan Pre-Operative Diagnosis Sigmoid Volvulus, Hyponatremia, CAD, EMIGDIO, UTI Post-Operative Diagnosis Ischemic bowel, incarcerated umbilical hernia plus above Procedure & Operative Findings Date of Procedure 03/05/20 Procedure Performed/Findings Flex Sig SubTotal Colectomy with end Ileostomy creation Insertion of central line with US guidance Anesthesia Type GET Estimated Blood Loss Estimated blood loss (mL): 200ml Specimens/Packing Specimens Removed Almost entire Large bowel hernia sac SHEILA DE OLIVEIRA DO Mar 05, 2020 01:59
[2020-03-05] MEDS ORDERED: fentaNYL INJECTION 1,250 MCG in NORMAL SALINE 250 ML INJ PRN (02:00)
[2020-03-05] MEDS ORDERED: ONDANSETRON 4 MG/2 ML (SDV) Z0FRAN IVP PRN (02:00)
[2020-03-05] MEDS ORDERED: HALOPERIDOL 5 MG/ML (HALDOL) AMP IV PRN (02:00)
[2020-03-05] MEDS ORDERED: DexMEDEtomidine 250 ML DRIP 250 ML IV SCH ×2 (02:00→07:15)
[2020-03-05] MEDS: NOREPINEPHRINE 4 MG/250 ML 250 ML IV SCH ×7 (02:35→21:57)
[2020-03-05] MEDS: metroNIDAZOLE 500MG/100ML IVPB 100 ML IV SCH ×3 (03:05→18:27)
[2020-03-05] MEDS: ENOXAPARIN 40 MG/0.4 ML (LOVENOX) SYR SC SCH (03:06)
[2020-03-05] MEDS: VASOPRESSIN INJECTION 20 UNIT in NORMAL SALINE 100 ML IV SCH ×3 (03:06→18:51)
[2020-03-05 03:21] LABS: ABG BASE EXCESS -1.5 MMOL/L (-2.5-2.5); ABG OXYGEN SATURATION 99 % (94-100); ABG PCO2 37 MMHG (35-45); ABG PO2 112 MMHG (79-93); ABG TCO2 23.9 MMOL/L (21.0-31.0)
[2020-03-05 03:23] LABS: ALLENS TEST YES-POS; INSPIRED O2 30%; PATIENT TEMP 36.4; VENTILATOR YES
[2020-03-05 03:25] LABS: BASOPHILS % (AUTO) 0 % (0-10); EOSINOPHILS % (AUTO) 0 % (0-10); HEMATOCRIT 31 % (35-52); HEMOGLOBIN 10.4 G/DL (11.5-16.0); LYMPHOCYTES % (AUTO) 5 % (12-44); MEAN CORPUSCULAR HEMOGLOBIN 24 PG (25-34); MEAN CORPUSCULAR HGB CONC 34 G/DL (32-36); MEAN CORPUSCULAR VOLUME 70 FL (80-99); MEAN PLATELET VOLUME 10.1 FL (7.4-10.4); MONOCYTES # (AUTO) 1.2 X 10^3 (0.0-1.0); MONOCYTES % (AUTO) 6 % (0-12); NEUTROPHILS # (AUTO) 18.7 X 10^3 (1.8-7.8); NEUTROPHILS % (AUTO) 89 % (42-75); PLATELET COUNT 275 10^3/uL (130-400); RED CELL DISTRIBUTION WIDTH 22.1 % (10.0-14.5); WHITE BLOOD COUNT 20.9 10^3/uL (4.3-11.0)
--- NOTE | 2020-03-05 03:27 | Pulmonary Consultation ---
History of Present Illness History of Present Illness Date Seen by Provider: Mar 05, 2020 Time Seen by Provider: 03:20 Date of Admission History of Present Illness 54yo with hx of CAD and CO 4 mo ago s/p stent placement presented to ED from [facility] secondary to severe worsening abdominal pain, nausea, abdominal distention, and constipation x 2 wks. Pt was found to have a sigmoind volvulus causing large bowel obstruction. She was taken to surgery and is now s/p resection. Pt is currently sedated on vent. She is hypotensive on Levophed. Allergies and Home Medications Allergies Coded Allergies: No Known Drug Allergies (Unverified , 11/11/19) Past Mfnfrli-Ogxgra-Ssffar Hx Patient Social History Alcohol Use: Denies Use Recreational Drug Use: No Smoking Status: Never a Smoker 2nd Hand Smoke Exposure: No Recent Foreign Travel: No Contact w/Someone Who Travel: No Recent Infectious Disease Expo: No Recent Hopitalizations: No Physical Abuse: No Sexual Abuse: No Mistreated: No Fear: No Seasonal Allergies Seasonal Allergies: No Past Medical History Surgeries: Yes Cardiac, Coronary Stent Respiratory: No Cardiac: Yes (Heart Failure) Heart Attack, High Cholesterol, Hypertension Neurological: No Genitourinary: No Gastrointestinal: No Musculoskeletal: No Endocrine: No HEENT: No Cancer: No Psychosocial: No Integumentary: No Family Medical History Hypertension (mother), Other Conditions/Hx (Mother of anuerysm and her father when she 2-3; doesn't know of what) Review of Systems Time Seen by Provider: 03:47 Sepsis Event Evaluation Height, Weight, BMI Height: '" Weight: lbs. oz. kg; 29.25 BMI Method: Exam Exam Vital Signs Date Time Temp Pulse Resp B/P (MAP) Pulse Ox O2 Delivery O2 Flow Rate FiO2 03/05/20 03:00 68 14 102/48 (66) 96 Mechanical Ventilator 30.00 03/05/20 02:52 70 89/47 03/05/20 02:48 70 147/68 03/05/20 02:47 149/70 03/05/20 02:46 70 03/05/20 02:46 68 169/78 03/05/20 02:45 67 12 140/74 (96) 98 Mechanical Ventilator 30.00 03/05/20 02:45 60 90/46 03/05/20 02:45 68 146/87 03/05/20 02:42 68 100/53 03/05/20 02:40 66 84/39 03/05/20 02:38 65 86/40 03/05/20 02:35 60 90/46 03/05/20 02:30 70 14 92/46 (61) 97 Mechanical Ventilator 30.00 03/05/20 02:21 70 03/05/20 02:15 36.2 64 14 112/81 (91) 100 Mechanical Ventilator 30.00 03/04/20 22:55 36.7 78 92 03/04/20 21:47 36.7 78 20 129/76 (93) 92 Room Air 03/04/20 21:47 36.7 78 20 129/76 92 Room Air 03/04/20 21:30 92 Room Air 2.00 03/04/20 21:17 71 18 124/81 97 Nasal Cannula 2.00 03/04/20 19:52 36.4 80 17 112/76 (88) 97 Nasal Cannula 2.00 I & O 03/05/20 07:00 Intake Total 3050 ml Output Total 400 ml Balance 2650 ml Height & Weight Height: '" Weight: lbs. oz. kg; 29.25 BMI Method: General Appearance: Chronically ill, Other (sedated on vent) HEENT: Pharynx Normal; No Scleral Icterus (L), No Scleral Icterus (R); Other (mucous membranes are very dry) Neck: Non Tender, Supple Respiratory: Chest Non Tender, Lungs Clear, Normal Breath Sounds, No Accessory Muscle Use, No Respiratory Distress Cardiovascular: Regular Rate, Rhythm, No Edema, No Murmur Capillary Refill: Less Than 3 Seconds Extremity: Normal Capillary Refill, Non Tender, No Calf Tenderness Neurologic/Psychiatric: Alert, Oriented x3, No Motor/Sensory Deficits, Normal Mood/Affect, copyist II-XII Norm as Tested Skin: Normal Color, Warm/Dry Lymphatic: No Adenopathy (neck, axilla or groin) Assessment/Plan Assessment/Plan Acute respiratory failure secondary -Will wean vent today -Labs pending -ABG pending Intrabdominal sepsis -Jiang cultures - Rocephin and flagyl -IVF -Check LA Large bowel obstruction secondary to sigmoid volvulus s/p resection Hypotension -Currently on Levophed - wean to D/C -IVF Hyponatremia -Monitor Elevated troponin probably secondary to sepsis -repeat CAD -Check EKG EMIGDIO -IVF TANA ZHAO DO Mar 05, 2020 03:27
[2020-03-05 03:34] LABS: ALBUMIN 2.3 GM/DL (3.2-4.5); POTASSIUM 3.9 MMOL/L (3.6-5.0)
[2020-03-05 03:36] LABS: TOTAL PROTEIN 4.3 GM/DL (6.4-8.2)
[2020-03-05 03:38] LABS: BILIRUBIN,TOTAL 0.8 MG/DL (0.1-1.0)
[2020-03-05 03:40] LABS: CREATININE SERUM 1.3 MG/DL (0.60-1.30)
[2020-03-05 03:43] LABS: MAGNESIUM 1.8 MG/DL (1.6-2.4)
[2020-03-05] MEDS: fentaNYL INJECTION 100 MCG/2 ML AMP IVP PRN ×3 (03:53→18:26)
[2020-03-05] MEDS ORDERED: LACTATED RINGERS 1,000 ML IV ONE ×2 (04:00→04:45)
[2020-03-05] MEDS: POTASSIUM CL 10MEQ/50ML IVPB 50 ML IV SCH (05:01)
[2020-03-05] MEDS: MAGNESIUM 1 GM/100 ML IVPB 100 ML IV SCH (05:02)
[2020-03-05] MEDS: KCL 20 MEQ TAB (K-DUR) PO SCH (05:02)
--- NOTE | 2020-03-05 06:01 | NUR ---
This RN notified Dr. Taveras that patient's BP still low with SBP in low 90's and DBP in 40's, despite 2L bolus of LR completed and Levophed gtt currently running (see IV spreadsheet). Order received at this time to wait on extubating patient. This RN will continue to monitor.
--- NOTE | 2020-03-05 06:08 | NUR ---
This RN notified Dr. Ji that patient's ileostomy dressing is leaking moderate amount of blood, unable to measure amount due to it leaking into bedding. Order received to reinforce dressing at this time. This RN reinforced dressing with ABD pad and medipore tape. Will continue to monitor.
[2020-03-05] MEDS: LACTATED RINGERS 1,000 ML IV SCH ×4 (06:15→23:38)
--- NOTE | 2020-03-05 07:08 | Diagnostic Imaging Report ---
INDICATION: Respiratory failure EXAMINATION: Portable chest 2:40 AM There is an ET tube projecting over the trachea. There is an NG tube projecting over the stomach. Right IJ central line tip projects over the SVC. Heart size and pulmonary vascularity are normal. There is minimal right basilar atelectasis. IMPRESSION: Right basilar discoid atelectasis. Support tubes and catheters project over appropriate structures. Dictated by: Dictated on workstation # [id number]
--- NOTE | 2020-03-05 07:23 | Anesthesia-General Post-Op ---
General Patient Condition Mental Status/LOC: Same as Preop Cardiovascular: Satisfactory Nausea/Vomiting: Absent Respiratory: Satisfactory Pain: Controlled Complications: Absent Post Op Complications Complications None Follow Up Care/Instructions Patient Instructions None needed. Anesthesia/Patient Condition Patient Condition Patient is doing well, no complaints, stable vital signs, no apparent adverse anesthesia problems. No complications reported per nursing. MARIELENA GARCÍA CRNA Mar 05, 2020 07:23
--- NOTE | 2020-03-05 07:27 | NUR ---
This RN notified Dr. Crump of consult.
--- NOTE | 2020-03-05 08:32 | Consultation-Cardiology ---
HPI-Cardiology Cardiology Consultation: Date of Consultation 03/05/20 Time Seen by a Provider: 08:10 Date of Admission Attending Physician Diony Ji DO Admitting Physician Veda Rm MD Consulting Physician VI KO MD, MA, FACP, FACC, [facility], CCDS Physician requesting consult: Dr Taveras HPI: Chief Complaint: Reason for consultation: Abnormal ECG HPI 54 yo woman who underwent emergency surgery for sigmoid volvulus causing intestinal obstruction early this morning. Almost entire large intestine rem li. Hypotensive post-op. On vent. Dr Taveras noted ECG abnormalities on tele this am. ECG done around at 3:22 am this morning and I was called by the nursing staff for abnormal ECG at approx 7:35 am. The ECG show more ST elevation than was seen on a previous ECG. The computer readout was early repolarization but, in looking at the ECG, ac anterolateral [place] cannot be excluded. The patient is intubated, but is responsive. She denies cp or shortness of breath or other symptoms. Review of Systems-Cardiology Review of Systems Constitutional: malaise, other (limited ROS because pt is intubated and on [facility] vent; ROS gathered from pt and records) Eyes: other (does not report visual symptoms) Ears/Nose/Throat: other (does not report ENT symptoms) Respiratory: As described under HPI Cardiovascular: As described under HPI Gastrointestinal: other (presented with constipation an severe abd pain that led to emergency surgery) Genitourinary: other (does not report urinary symptoms) Psychiatric/Neurological: other (does not report focal weakness) Hematologic: other (does not report bleeding abnormalities) [id number]-Fjthsz Hx Patient Social History Alcohol Use: Denies Use Recreational Drug Use: No Smoking Status: Never a Smoker 2nd Hand Smoke Exposure: No Recent Foreign Travel: No Recent Infectious Disease Expo: No Hospitalization with Isolation: Denies Past Medical History PMH As described under Assessment. Family Medical History Family Medical History: No fam h/o early CAD reported or found in records Allergies and Home Medications Allergies Coded Allergies: No Known Drug Allergies (Unverified , 11/11/19) Patient Home Medication List Home Medication List Reviewed: Yes Physical Exam-Cardiology Physical Exam Vital Signs/I&O 03/04/20 03/04/20 03/04/20 03/04/20 21:17 21:30 21:47 21:47 Temp 36.7 36.7 Pulse 71 78 78 Resp 18 20 20 B/P (MAP) 124/81 129/76 129/76 (93) Pulse Ox 97 92 92 92 O2 Delivery Nasal Cannula Room Air Room Air Room Air O2 Flow Rate 2.00 2.00 03/04/20 03/05/20 03/05/20 03/05/20 22:55 02:10 02:10 02:15 Temp 36.7 36.2 36.2 Pulse 78 64 Resp 14 14 B/P (MAP) 112/81 (91) 112/81 (91) Pulse Ox 92 96 100 O2 Delivery Mechanical Ventilator Mechanical Ventilator Mechanical Ventilator O2 Flow Rate 30 30 30.00 03/05/20 03/05/20 03/05/20 03/05/20 02:15 02:20 02:21 02:27 Pulse 70 80 Resp 14 12 B/P (MAP) 94/48 (63) Pulse Ox 96 100 O2 Delivery Mechanical Ventilator Mechanical Ventilator O2 Flow Rate 30 30 FiO2 30 03/05/20 03/05/20 03/05/20 03/05/20 02:30 02:30 02:30 02:35 Pulse 70 60 Resp 14 14 B/P (MAP) 92/46 (61) 90/46 Pulse Ox 97 96 O2 Delivery Mechanical Ventilator Mechanical Ventilator Mechanical Ventilator O2 Flow Rate 30.00 30 30 03/05/20 03/05/20 03/05/20 03/05/20 02:38 02:40 02:40 02:42 Pulse 65 66 68 Resp 14 B/P (MAP) 86/40 84/39 100/53 O2 Delivery Mechanical Ventilator O2 Flow Rate 30 03/05/20 03/05/20 03/05/20 03/05/20 02:45 02:45 02:45 02:45 Pulse 68 60 67 Resp 12 B/P (MAP) 146/87 90/46 140/74 (96) Pulse Ox 98 O2 Delivery Mechanical Ventilator Mechanical Ventilator O2 Flow Rate 30.00 30 03/05/20 03/05/20 03/05/20 03/05/20 02:46 02:46 02:47 02:48 Pulse 68 70 70 B/P (MAP) 169/78 149/70 147/68 03/05/20 03/05/20 03/05/20 03/05/20 02:50 02:52 03:00 03:00 Pulse 70 68 Resp 14 14 B/P (MAP) 89/47 102/48 (66) Pulse Ox 99 96 O2 Delivery Mechanical Ventilator Mechanical Ventilator Mechanical Ventilator O2 Flow Rate 30 30 30.00 03/05/20 03/05/20 03/05/20 03/05/20 03:00 03:30 04:00 04:00 Temp 36.2 36.4 Pulse 72 73 Resp 14 14 13 B/P (MAP) 121/58 (79) 104/52 (69) Pulse Ox 98 100 96 O2 Delivery Mechanical Ventilator Mechanical Ventilator Mechanical Ventilator O2 Flow Rate 30 30.00 30.00 03/05/20 03/05/20 03/05/20 03/05/20 04:00 05:00 06:00 06:05 Pulse 72 81 78 Resp 12 12 B/P (MAP) 123/58 (79) 120/56 (77) 125/56 Pulse Ox 95 96 O2 Delivery Mechanical Ventilator Mechanical Ventilator Mechanical Ventilator O2 Flow Rate 30.00 30.00 FiO2 30 03/05/20 03/05/20 03/05/20 03/05/20 06:28 07:00 07:00 08:00 Pulse 77 78 76 75 Resp 13 17 13 B/P (MAP) 114/58 (76) 104/55 (71) Pulse Ox 95 95 96 O2 Delivery Mechanical Ventilator Mechanical Ventilator O2 Flow Rate 30.00 30.00 FiO2 30 03/05/20 08:00 O2 Delivery Mechanical Ventilator FiO2 30 03/05/20 00:00 Intake Total 1000 ml Balance 1000 ml Capillary Refill : Less Than 3 Seconds Constitutional: other (on mech vent, but does appear oriented and answers questions with head movements and squeezing of hand upon instruction) HEENT: PERRL, EOMI Neck: carotid pulses are 2 + bilaterally Respiratory: No accessory muscle use; other (good bilat air entry) Cardiovascular: regular rate-rhythm, S1 and S2, systolic murmur (faint AURA at card base) Gastrointestinal: other (post surgical abdomen; we did not attempt palpation; absent bs) Extremities: No clubbing, No cyanosis, No significant edema Neurologic/Psychiatric: other (seems to able to move all limbs equally) Skin: No rash on exposed areas, No ulcerations on exposed areas Data Review Labs Laboratory Tests 03/04/20 22:32: Serum Test, Qualitative NEGATIVE 03/05/20 03:14: White Blood Count 20.9H, Red Blood Count 4.38, Hemoglobin 10.4#L, Hematocrit 31L , Mean Corpuscular Volume 70L, Mean Corpuscular Hemoglobin 24L, Mean Corpuscular Hemoglobin Concent 34, Red Cell Distribution Width 22.1H, Platelet Count 275, Mean Platelet Volume 10.1, Neutrophils (%) (Auto) 89H, Lymphocytes (%) (Auto) 5L , Monocytes (%) (Auto) 6, Eosinophils (%) (Auto) 0, Basophils (%) (Auto) 0, Neut rophils # (Auto) 18.7H, Lymphocytes # (Auto) 1.0, Monocytes # (Auto) 1.2H, Eosinophils # (Auto) 0.0, Basophils # (Auto) 0.0, Sodium Level 136, Potassium Level 3.9, Chloride Level 106, Carbon Dioxide Level 17L, Anion Gap 13, Blood Urea Nitrogen 65H, Creatinine 1.30, Estimat Glomerular Filtration Rate 43, BUN/Creatinine Ratio 50, Glucose Level 130H, Calcium Level 7.0L, Corrected Calcium 8.4L, Magnesium Level 1.8, Total Bilirubin 0.8, Aspartate Amino Transf (AST/SGOT) 18, Alanine Aminotransferase (ALT/SGPT) 15, Alkaline Phosphatase 74, Troponin I 0.030H, Total Protein 4.3L, Albumin 2.3L 03/05/20 03:17: Blood Gas Puncture Site L RAD, Blood Gas Patient Temperature 36.4, Arterial Blood pH 7.40, Arterial Blood Partial Pressure CO2 37, Arterial Blood Partial Pressure O2 112H, Arterial Blood HCO3 23, Arterial Blood Total CO2 23.9, Arterial Blood Oxygen Saturation 99, Arterial Blood Base Excess -1.5, Wilfred Test YES-POS, Blood Gas Ventilator Setting YES, Blood Gas Inspired Oxygen 30% 03/05/20 03:59: Lactic Acid Level 1.66 Laboratory Tests 03/05/20 03:14 A/P-Cardiology Assessment/Admission Diagnosis Hypotension post surgery, cannot exclude cardiogenic shock Abnormal ECG, cannot exclude ac [place] CAD, h/o cor stenting at [facility] in Oct 2019 S/p colectomy for intestinal obstruction EMIGDIO 2 Discussion and Recomendations * I explained her CV issues to her. Despite being intubated, she is communicative and understands issues * Given hypotension and abnormal ECG in the setting of known CAD and recent cor stenting, urgent cath appears appropriate. This was discussed with her. She understands the rationale, procedure, risks, benefits and potential complications and wishes to proceed. I told her that her risk of cath and PCI is higher than usual, given fresh abdominal surgery, ac renal insufficiency, and hypotension. She has instructed (by gestures) her nurse to have her friend (her main care provider) to sign the consent * Meanwhile, we are trying to obtain her card cath and PCI records from [facility] * Further recs to be based on hosp course Clinical Quality Measures DVT/VTE Risk/Contraindication: Risk Factor Score Per Nursin RFS Level Per Nursing on Admit: 4+=Very High VI KO MD FACP FAC CCDS Mar 05, 2020 08:32
--- NOTE | 2020-03-05 08:45 | Consultation-Cardiology ---
HPI-Cardiology Cardiology Consultation: Date of Consultation 03/05/20 Time Seen by a Provider: 08:20 Date of Admission 03-04-2020 Attending Physician Sheila De Oliveira DO Admitting Physician Veda Rm MD Consulting Physician Hipolito Crump MD HPI: Chief Complaint: Elevated troponin Ms. Ray is a 54 year old female admitted to ICU 6 post abdominal surgery. She is currently intubated and sedated. There is no family at the bedside. Per conversation with the nurse she was seen in the [facility] ED d/t constipation a nd transferred to [place]. She underwent colo with Dr. De Oliveira at which time she then underwent colectomy with ileostomy placement. She has a known h/o CAD with h/o GA in October 2019 for which she has had stent placement. She is also noted to be on Eliquis for reasons unknown at this time. Review of Systems-Cardiology Review of Systems Other comments Unable to obtain d/t intubation and sedation DWE-[id number]-[id number] Hx Patient Social History Alcohol Use: Denies Use Recreational Drug Use: No Smoking Status: Never a Smoker 2nd Hand Smoke Exposure: No Recent Foreign Travel: No Recent Infectious Disease Expo: No Hospitalization with Isolation: Denies Past Medical History PMH As described under Assessment. Family Medical History Family Medical History: Unable to obtain d/t intubation and sedation Allergies and Home Medications Allergies Coded Allergies: No Known Drug Allergies (Unverified , 11/11/19) Physical Exam-Cardiology Physical Exam Vital Signs/I&O 03/04/20 03/04/20 03/04/20 03/04/20 21:17 21:30 21:47 21:47 Temp 36.7 36.7 Pulse 71 78 78 Resp 18 20 20 B/P (MAP) 124/81 129/76 129/76 (93) Pulse Ox 97 92 92 92 O2 Delivery Nasal Cannula Room Air Room Air Room Air O2 Flow Rate 2.00 2.00 03/04/20 03/05/20 03/05/20 03/05/20 22:55 02:10 02:10 02:15 Temp 36.7 36.2 36.2 Pulse 78 64 Resp 14 14 B/P (MAP) 112/81 (91) 112/81 (91) Pulse Ox 92 96 100 O2 Delivery Mechanical Ventilator Mechanical Ventilator Mechanical Ventilator O2 Flow Rate 30 30 30.00 03/05/20 03/05/20 03/05/20 03/05/20 02:15 02:20 02:21 02:27 Pulse 70 80 Resp 14 12 B/P (MAP) 94/48 (63) Pulse Ox 96 100 O2 Delivery Mechanical Ventilator Mechanical Ventilator O2 Flow Rate 30 30 FiO2 30 03/05/20 03/05/20 03/05/20 03/05/20 02:30 02:30 02:30 02:35 Pulse 70 60 Resp 14 14 B/P (MAP) 92/46 (61) 90/46 Pulse Ox 97 96 O2 Delivery Mechanical Ventilator Mechanical Ventilator Mechanical Ventilator O2 Flow Rate 30.00 30 30 03/05/20 03/05/20 03/05/20 03/05/20 02:38 02:40 02:40 02:42 Pulse 65 66 68 Resp 14 B/P (MAP) 86/40 84/39 100/53 O2 Delivery Mechanical Ventilator O2 Flow Rate 30 03/05/20 03/05/20 03/05/20 03/05/20 02:45 02:45 02:45 02:45 Pulse 68 60 67 Resp 12 B/P (MAP) 146/87 90/46 140/74 (96) Pulse Ox 98 O2 Delivery Mechanical Ventilator Mechanical Ventilator O2 Flow Rate 30.00 30 03/05/20 03/05/20 03/05/20 03/05/20 02:46 02:46 02:47 02:48 Pulse 68 70 70 B/P (MAP) 169/78 149/70 147/68 03/05/20 03/05/20 03/05/20 03/05/20 02:50 02:52 03:00 03:00 Pulse 70 68 Resp 14 14 B/P (MAP) 89/47 102/48 (66) Pulse Ox 99 96 O2 Delivery Mechanical Ventilator Mechanical Ventilator Mechanical Ventilator O2 Flow Rate 30 30 30.00 03/05/20 03/05/20 03/05/20 03/05/20 03:00 03:30 04:00 04:00 Temp 36.2 36.4 Pulse 72 73 Resp 14 14 13 B/P (MAP) 121/58 (79) 104/52 (69) Pulse Ox 98 100 96 O2 Delivery Mechanical Ventilator Mechanical Ventilator Mechanical Ventilator O2 Flow Rate 30 30.00 30.00 03/05/20 03/05/20 03/05/20 03/05/20 04:00 05:00 06:00 06:05 Pulse 72 81 78 Resp 12 12 B/P (MAP) 123/58 (79) 120/56 (77) 125/56 Pulse Ox 95 96 O2 Delivery Mechanical Ventilator Mechanical Ventilator Mechanical Ventilator O2 Flow Rate 30.00 30.00 FiO2 30 03/05/20 03/05/20 03/05/20 03/05/20 06:28 07:00 07:00 08:00 Pulse 77 78 76 75 Resp 13 17 13 B/P (MAP) 114/58 (76) 104/55 (71) Pulse Ox 95 95 96 O2 Delivery Mechanical Ventilator Mechanical Ventilator O2 Flow Rate 30.00 30.00 FiO2 30 03/05/20 08:00 O2 Delivery Mechanical Ventilator FiO2 30 03/05/20 00:00 Intake Total 1000 ml Balance 1000 ml Capillary Refill : Less Than 3 Seconds Constitutional: appears stated age; No AAO x 3; well-developed, well-nourished HEENT: No xanthelasmas are seen Neck: No carotid bruit; carotid pulses are 2 + bilaterally Respiratory: other (good air entry) Cardiovascular: regular rate-rhythm; No JVD; S1 and S2 Gastrointestinal: other (post surgical abdomen ostomy) Extremities: no lower extremity edema bilateral Neurologic/Psychiatric: other (sedated; does move extremities) Skin: No rash on exposed areas, No ulcerations on exposed areas Data Review Labs Laboratory Tests 03/04/20 22:32: Serum Test, Qualitative NEGATIVE 03/05/20 03:14: White Blood Count 20.9H, Red Blood Count 4.38, Hemoglobin 10.4#L, Hematocrit 31L , Mean Corpuscular Volume 70L, Mean Corpuscular Hemoglobin 24L, Mean Corpuscular Hemoglobin Concent 34, Red Cell Distribution Width 22.1H, Platelet Count 275, Mean Platelet Volume 10.1, Neutrophils (%) (Auto) 89H, Lymphocytes (%) (Auto) 5L , Monocytes (%) (Auto) 6, Eosinophils (%) (Auto) 0, Basophils (%) (Auto) 0, Neutrophils # (Auto) 18.7H, Lymphocytes # (Auto) 1.0, Monocytes # (Auto) 1.2H, Eosinophils # (Auto) 0.0, Basophils # (Auto) 0.0, Sodium Level 136, Potassium Level 3.9, Chloride Level 106, Carbon Dioxide Level 17L, Anion Gap 13, Blood Urea Nitrogen 65H, Creatinine 1.30, Estimat Glomerular Filtration Rate 43, BUN/Creatinine Ratio 50, Glucose Level 130H, Calcium Level 7.0L, Corrected Calcium 8.4L, Magnesium Level 1.8, Total Bilirubin 0.8, Aspartate Amino Transf (AST/SGOT) 18, Alanine Aminotransferase (ALT/SGPT) 15, Alkaline Phosphatase 74, Troponin I 0.030H, Total Protein 4.3L, Albumin 2.3L 03/05/20 03:17: Blood Gas Puncture Site L RAD, Blood Gas Patient Temperature 36.4, Arterial Blood pH 7.40, Arterial Blood Partial Pressure CO2 37, Arterial Blood Partial Pressure O2 112H, Arterial Blood HCO3 23, Arterial Blood Total CO2 23.9, Arterial Blood Oxygen Saturation 99, Arterial Blood Base Excess -1.5, Wilfred Test YES-POS, Blood Gas Ventilator Setting YES, Blood Gas Inspired Oxygen 30% 03/05/20 03:59: Lactic Acid Level 1.66 Laboratory Tests 03/05/20 03:14 Radiology NAME: [facility] REC#: [id number] PT STATUS: ADM IN : 1965 PHYSICIAN: SHEILA DE OLIVEIRA DO ADMIT DATE: 03/04/20/ICU Signed Date of Exam:03/05/20 CHEST 1 VIEW, AP/PA ONLY INDICATION: Respiratory failure EXAMINATION: Portable chest 2:40 AM There is an ET tube projecting over the trachea. There is an NG tube projecting over the stomach. Right IJ central line tip projects over the SVC. Heart size and pulmonary vascularity are normal. There is minimal right basilar atelectasis. IMPRESSION: Right basilar discoid atelectasis. Support tubes and catheters project over appropriate structures. Dictated by: Dictated on workstation # [id number] Dict: 03/05/20 [id number] Trans: 03/05/2030 [facility] [place] [id number] Interpreted by: FABY OWUSU MD Electronically signed by: FABY OWUSU MD 03/05/20 4530 A/P-Cardiology Assessment/Admission Diagnosis STEMI H/O CAD with GA in October 2019 for which she was treated with stent placement at [facility] in [place], [place] - details unknown S/P colectomy with ileostomy placement on 03-04-[address] De Oliveira Clinical Quality Measures DVT/VTE Risk/Contraindication: Risk Factor Score Per Nursin RFS Level Per Nursing on Admit: 4+=Very High BENJI WILLOUGHBY Mar 05, 2020 08:45
[2020-03-05] MEDS ORDERED: ceFAZolin 2 GM IV Premixed 50 ML IV SCH (09:00)
[2020-03-05] MEDS ORDERED: LIDOCAINE 1% INJ 20 ML 20 ML VIAL ONE (09:06)
[2020-03-05] MEDS ORDERED: MIDAZOLAM 5 MG/5 ML (VERSED) VIAL ONE (09:06)
[2020-03-05] MEDS ORDERED: fentaNYL INJECTION 100 MCG/2 ML AMP ONE (09:07)
[2020-03-05] MEDS ORDERED: NS IV 1000 ML 1,000 ML ONE (09:07)
[2020-03-05] MEDS ORDERED: HEParin (CATH LAB) 2,000 ML IV ONE (09:07)
[2020-03-05] MEDS: PANTOPRAZOLE 40 MG (PROTONIX) VIAL IVP SCH (09:25)
--- NOTE | 2020-03-05 09:45 | NUR ---
CM/SS: Contact made with ICU nursing staff as to the status of pt. RN indicated pt will be going for a heart cath shortly. Plan: To be determined Summary: Pt currently on the vent and will be going for a heart cath procedure. RN has been communicating with a friend, as there was not family identified on the face sheet. This worker will follow up.
[2020-03-05] MEDS ORDERED: NS IV 1000 ML 1,000 ML IV SCH ×2 (10:30→10:55)
--- NOTE | 2020-03-05 10:48 | Physical Therapy Progress Note ---
Therapy Progress Note PT order received. Pt in [place] at time of attempted evaluation. PT will need new orders when Pt cleared for activity from cardiac and surgery standpoint. JUAN ALBERTO DICKINSON DPT Mar 05, 2020 10:48
[2020-03-05] MEDS ORDERED: PATIENT MAY USE OWN MEDS, ALL PO SCH (11:00)
[2020-03-05] MEDS ORDERED: CLOPIDOGREL 75 MG (PLAVIX) TABLET PO ONE (11:00)
--- NOTE | 2020-03-05 11:14 | NUR ---
"Received dietary consult regarding pt's vent status. PMH: hypercholesterolemia; HTN Current admit: large bowel obstruction Est. kcal needs: 7901-0587 kcal | 20-25 kcal/kg Est. Pro needs: 60-75 g Pro | 0.8-1.0 g Pro/kg If pt is to remain NPO for more than 3d, would recommend the following TF: Jevity 1.5 at goal rate of 45ml/hr. Begin at 10ml/hr and increase by 10ml q6h as tolerated. Monitor gastric residuals for tolerance. At goal rate, provides 1620 kcal (22 kcal/kg); 69 g Pro (0.9 g Pro/kg); and 821ml free water. Flush with 75ml H2O q4h for hydration status. With flushes, provides 1271ml free water. Will continue to follow and reassess as pt needs, intake, and status change. Camron Rogers, MS, RD, LD"
--- NOTE | 2020-03-05 11:59 | CARDIAC CATHETERIZATION ---
DATE OF SERVICE: 03/04/2020 CARDIAC CATHETERIZATION REPORT The patient is a 54-year-old lady, who was admitted with acute intestinal obstruction and underwent colon resection. Subsequently, she was hypotensive. The electrocardiogram was abnormal. She is known to have coronary artery disease and has had coronary stenting in [place] in 10/2019, the details of which are not available at the time of this dictation. Because of hypotension, concern for cardiogenic shock, and an abnormal electrocardiogram on which there was more ST elevation than on previous electrocardiograms, we proceeded with cardiac catheterization after having obtained a consent. Although, she was on a ventilator, she was awake and alert at the time of providing consent and wanted us to proceed. DESCRIPTION OF PROCEDURE: She was brought to the cardiac catheterization laboratory. Right groin was prepared and draped in the usual sterile fashion and 1% was used as local anesthesia. Modified Seldinger technique was used to advance a 5-Latvian sheath in right femoral artery. A 5-Latvian JL4 catheter was used for left coronary angiography. A 5-Latvian JR4 catheter was used for right coronary angiography. A 5-Latvian pigtail catheter was used for left heart catheterization. Left ventricular angiography was not performed. This was to conserve contrast, given the patient's renal insufficiency. At the end of the procedure, manual pressure was used to achieve hemostasis following sheath removal. She tolerated the procedure well. HEMODYNAMICS: Left ventricular end-diastolic pressure following coronary angiography was 12 mmHg. There was no significant pressure gradient on pullback across the aortic valve. Ascending aortic pressure was 123/61 with a mean of 83 mmHg. CORONARY ANGIOGRAPHY: There is diffuse coronary calcification. Left main coronary artery is free of significant disease. Left anterior descending artery has diffuse moderate disease in its proximal and mid portions and moderately severe disease in its distal portion. Left circumflex artery has a patent stent in its mid portion. This is somewhat oversized. No significant in-stent restenosis is seen. There is moderate diffuse disease of the left circumflex. The first obtuse marginal has 70% to 80% ostial stenosis, but is of a small caliber and does not appear suitable for percutaneous intervention. Right coronary artery is dominant and has a 50% proximal stenosis. There is a patent stent in its mid portion. It is somewhat oversized. It does not show any significant in-stent restenosis. There is approximately 50% stenosis in the distal right coronary artery. CONCLUSIONS: 1. Coronary artery disease as detailed above. There are patent stents in the mid left circumflex and the mid right coronary arteries. There is moderate diffuse disease of all coronary arteries. There is moderately severe diffuse disease of the distal left anterior descending. A small caliber obtuse marginal has 70% to 80% ostial stenosis. 2. Normal left ventricular end-diastolic pressure. DISCUSSION AND RECOMMENDATIONS: Based on results of the study, it appears appropriate to continue a conservative approach. No distinctly acute lesions are seen. Conservative therapy appears to be the most appropriate form of treatment at this time, given the patient's recent major abdominal surgery. Job ID: [id number] DocumentID: [id number] Dictated Date: 03/05/2020 10:40:56 Living Manager Date: 03/05/2020 11:58:55 Dictated By: VI KO MD, MA, FACP, FACC,
--- NOTE | 2020-03-05 12:59 | Progress Note - Surgery ---
Subjective Time Seen by a Provider: 12:47 Subjective/Events-last exam Pt seen and examined, sedated on vent. Review of Systems unable to assess, pt on vent Focused Exam Lactate Level 03/05/20 03:59: Lactic Acid Level 1.66 Objective Exam Vital Signs Date Time Temp Pulse Resp B/P (MAP) Pulse Ox O2 Delivery O2 Flow Rate FiO2 03/05/20 10:58 79 14 95 30 03/05/20 10:00 89 24 84/54 (64) 96 Mechanical Ventilator 30.00 03/05/20 09:24 89/52 03/05/20 09:00 79 13 88/51 (63) 95 Mechanical Ventilator 30.00 03/05/20 08:00 37.1 03/05/20 08:00 Mechanical Ventilator 30 03/05/20 08:00 75 13 104/55 (71) 96 Mechanical Ventilator 30.00 03/05/20 07:00 76 17 114/58 (76) 95 Mechanical Ventilator 30.00 03/05/20 07:00 78 03/05/20 06:28 77 13 95 30 03/05/20 06:05 78 125/56 03/05/20 06:00 81 12 120/56 (77) 96 Mechanical Ventilator 30.00 03/05/20 05:00 72 12 123/58 (79) 95 Mechanical Ventilator 30.00 03/05/20 04:00 Mechanical Ventilator 30 03/05/20 04:00 73 13 104/52 (69) 96 Mechanical Ventilator 30.00 03/05/20 04:00 36.4 03/05/20 03:30 72 14 121/58 (79) 100 Mechanical Ventilator 30.00 03/05/20 03:00 36.2 14 98 Mechanical Ventilator 30 03/05/20 03:00 68 14 102/48 (66) 96 Mechanical Ventilator 30.00 03/05/20 03:00 Mechanical Ventilator 30 03/05/20 02:52 70 89/47 03/05/20 02:50 14 99 Mechanical Ventilator 30 03/05/20 02:48 70 147/68 03/05/20 02:47 149/70 03/05/20 02:46 70 03/05/20 02:46 68 169/78 03/05/20 02:45 Mechanical Ventilator 30 03/05/20 02:45 67 12 140/74 (96) 98 Mechanical Ventilator 30.00 03/05/20 02:45 60 90/46 03/05/20 02:45 68 146/87 03/05/20 02:42 68 100/53 03/05/20 02:40 66 84/39 03/05/20 02:40 14 Mechanical Ventilator 30 03/05/20 02:38 65 86/40 03/05/20 02:35 60 90/46 03/05/20 02:30 Mechanical Ventilator 30 03/05/20 02:30 14 96 Mechanical Ventilator 30 03/05/20 02:30 70 14 92/46 (61) 97 Mechanical Ventilator 30.00 03/05/20 02:27 80 12 100 30 03/05/20 02:21 70 03/05/20 02:20 14 94/48 (63) 96 Mechanical Ventilator 30 03/05/20 02:15 Mechanical Ventilator 30 03/05/20 02:15 36.2 64 14 112/81 (91) 100 Mechanical Ventilator 30.00 03/05/20 02:10 36.2 14 112/81 (91) 96 Mechanical Ventilator 30 03/05/20 02:10 Mechanical Ventilator 30 03/04/20 22:55 36.7 78 92 03/04/20 21:47 36.7 78 20 129/76 (93) 92 Room Air 03/04/20 21:47 36.7 78 20 129/76 92 Room Air 03/04/20 21:30 92 Room Air 2.00 03/04/20 21:17 71 18 124/81 97 Nasal Cannula 2.00 03/04/20 19:52 36.4 80 17 112/76 (88) 97 Nasal Cannula 2.00 I & O 03/05/20 07:00 Intake Total 5600 ml Output Total 775 ml Balance 4825 ml Capillary Refill : Less Than 3 Seconds General Appearance: Chronically ill, Other (sedated on vent) HEENT: No Scleral Icterus (L), No Scleral Icterus (R); Other (mucous membranes are very dry) Respiratory: Lungs Clear, Normal Breath Sounds Cardiovascular: Regular Rate, Rhythm, No Murmur Gastrointestinal: soft, other (inicision is intact, with dried blood. Ileostomy is viable, no output yet but has minimial oozing of blood) Skin: Normal Color, Warm/Dry Results Lab Laboratory Tests 03/04/20 22:32: Serum Test, Qualitative NEGATIVE 03/05/20 03:14: White Blood Count 20.9H, Red Blood Count 4.38, Hemoglobin 10.4#L, Hematocrit 31L , Mean Corpuscular Volume 70L, Mean Corpuscular Hemoglobin 24L, Mean Corpuscular Hemoglobin Concent 34, Red Cell Distribution Width 22.1H, Platelet Count 275, Mean Platelet Volume 10.1, Neutrophils (%) (Auto) 89H, Lymphocytes (%) (Auto) 5L , Monocytes (%) (Auto) 6, Eosinophils (%) (Auto) 0, Basophils (%) (Auto) 0, Neutrophils # (Auto) 18.7H, Lymphocytes # (Auto) 1.0, Monocytes # (Auto) 1.2H, Eosinophils # (Auto) 0.0, Basophils # (Auto) 0.0, Sodium Level 136, Potassium Level 3.9, Chloride Level 106, Carbon Dioxide Level 17L, Anion Gap 13, Blood Urea Nitrogen 65H, Creatinine 1.30, Estimat Glomerular Filtration Rate 43, BUN/Creatinine Ratio 50, Glucose Level 130H, Calcium Level 7.0L, Corrected Calcium 8.4L, Magnesium Level 1.8, Total Bilirubin 0.8, Aspartate Amino Transf (AST/SGOT) 18, Alanine Aminotransferase (ALT/SGPT) 15, Alkaline Phosphatase 74, Troponin I 0.030H, Total Protein 4.3L, Albumin 2.3L 03/05/20 03:17: Blood Gas Puncture Site L RAD, Blood Gas Patient Temperature 36.4, Arterial Blood pH 7.40, Arterial Blood Partial Pressure CO2 37, Arterial Blood Partial Pressure O2 112H, Arterial Blood HCO3 23, Arterial Blood Total CO2 23.9, Arterial Blood Oxygen Saturation 99, Arterial Blood Base Excess -1.5, Wilfred Test YES-POS, Blood Gas Ventilator Setting YES, Blood Gas Inspired Oxygen 30% 03/05/20 03:59: Lactic Acid Level 1.66 03/05/20 12:19: Assessment/Plan Assessment/Plan Assessment/Plan S/P Subtotal Colectomy with End Ileostomy creation - secondary to Ischemic bowel Sigmoid Volvulus - causing Large Bowel Obstruction Hyponatremia - resolved CAD - hx of MT with stent placement 4 months ago EMIGDIO - improved slightly UTI - oon ABX Supportive care, attempt to wean from ventilator, monitor labs, IV fluids, pain control. Awaiting ileostomy fxn, cont NGT and NPO for now. Clinical Quality Measures DVT/VTE Risk/Contraindication: Risk Factor Score Per Nursin RFS Level Per Nursing on Admit: 4+=Very High SHEILA DE OLIVEIRA DO Mar 05, 2020 12:59
--- NOTE | 2020-03-05 14:07 | Occ Therapy Progress Note ---
Therapy Progress Note Pt on ventilator this am. When attempted evaluation, pt undergoing heart cath. OT to hold tx on this date due to medical status. MAISHA DAVENPORT OTR Mar 05, 2020 14:07
[2020-03-05] MEDS ORDERED: APIX5TAB PO ×2 (15:10)
[2020-03-05] MEDS ORDERED: SPIR25TA PO ×2 (15:10)
[2020-03-05] MEDS ORDERED: CRV25T PO ×2 (15:10)
--- NOTE | 2020-03-05 15:11 | NUR ---
UNABLE TO SPEAK WITH THE PT AT THIS TIME. I CALLED [facility] IN [facility] TO COMPLETE THE MED REC THE FOLLOWING ARE FILL DATES: 02-19-2020 COREG 25MG #60/30DS 02-19-2020 ELIQUIS 5MG #60/30DS 02-19-2020 SPIRONOLACTONE 25MG #30/30DS WHEN THE PT IS AWAKE I WILL SPEAK AND UPDATE THE MED REC AND NOTES NEEDED
[2020-03-05 16:53] LABS: ABG BASE EXCESS -0.6 MMOL/L (-2.5-2.5); ABG OXYGEN SATURATION 99 % (94-100); ABG PCO2 31 MMHG (35-45); ABG PH 7.48 (7.37-7.43); ABG PO2 121 MMHG (79-93); ABG TCO2 23.4 MMOL/L (21.0-31.0)
[2020-03-05 16:54] LABS: INSPIRED O2 30%; PATIENT TEMP 37.6; VENTILATOR YES
[2020-03-06] VITALS (25 sets, daily range): BP systolic 85–148; BP diastolic 42–69
[2020-03-06] MEDS: LACTATED RINGERS 1,000 ML IV SCH ×4 (00:26→21:37)
[2020-03-06] MEDS: fentaNYL INJECTION 100 MCG/2 ML AMP IVP PRN ×4 (00:31→23:12)
[2020-03-06] MEDS: NOREPINEPHRINE 4 MG/250 ML 250 ML IV SCH ×7 (00:39→20:36)
[2020-03-06] MEDS: metroNIDAZOLE 500MG/100ML IVPB 100 ML IV SCH ×3 (01:32→17:15)
[2020-03-06] MEDS: ENOXAPARIN 40 MG/0.4 ML (LOVENOX) SYR SC SCH (01:35)
[2020-03-06 03:11] LABS: BASOPHILS % (AUTO) 0 % (0-10); EOSINOPHILS # (AUTO) 0.1 10^3/uL (0.0-0.3); EOSINOPHILS % (AUTO) 1 % (0-10); HEMATOCRIT 27 % (35-52); HEMOGLOBIN 9.1 G/DL (11.5-16.0); LYMPHOCYTES % (AUTO) 6 % (12-44); MEAN CORPUSCULAR HEMOGLOBIN 24 PG (25-34); MEAN CORPUSCULAR HGB CONC 34 G/DL (32-36); MEAN CORPUSCULAR VOLUME 70 FL (80-99); MONOCYTES # (AUTO) 3.2 X 10^3 (0.0-1.0); MONOCYTES % (AUTO) 19 % (0-12); NEUTROPHILS % (AUTO) 75 % (42-75); PLATELET COUNT 383 10^3/uL (130-400); RED CELL DISTRIBUTION WIDTH 22.3 % (10.0-14.5); WHITE BLOOD COUNT 17.4 10^3/uL (4.3-11.0)
[2020-03-06] MEDS: VASOPRESSIN INJECTION 20 UNIT in NORMAL SALINE 100 ML IV SCH ×3 (03:12→17:17)
[2020-03-06 03:22] LABS: CHLORIDE 110 MMOL/L (98-107); POTASSIUM 3.5 MMOL/L (3.6-5.0); SODIUM 140 MMOL/L (135-145)
[2020-03-06 03:23] LABS: CALCIUM 7.2 MG/DL (8.5-10.1); GLUCOSE 121 MG/DL (70-105)
[2020-03-06] MEDS: cefTRIAXone FOR IV USE 1,000 MG in WATER (STERILE) FOR INJECTION 10 ML IV SCH (03:23)
[2020-03-06 03:25] LABS: CARBON DIOXIDE 19 MMOL/L (21-32)
[2020-03-06 03:27] LABS: CREATININE SERUM 0.95 MG/DL (0.60-1.30); GFR ESTIMATED > 60; PHOSPHORUS 2.1 MG/DL (2.3-4.7)
[2020-03-06 03:28] LABS: BUN/CREATININE RATIO 46
[2020-03-06 03:30] LABS: MAGNESIUM 1.8 MG/DL (1.6-2.4)
--- NOTE | 2020-03-06 04:42 | Pulmonary Progress Note ---
Subjective Time Seen by a Provider: 04:36 Sepsis Event Evaluation Height, Weight, BMI Height: '" Weight: lbs. oz. kg; 29.25 BMI Method: Focused Exam Lactate Level 03/05/20 03:59: Lactic Acid Level 1.66 Exam Exam Vital Signs Date Time Temp Pulse Resp B/P (MAP) Pulse Ox O2 Delivery O2 Flow Rate FiO2 03/06/20 03:25 37.6 03/06/20 03:13 Nasal Cannula 2.00 03/06/20 03:04 113/44 03/06/20 02:09 106/48 03/06/20 02:00 98 28 102/47 (65) 94 Nasal Cannula 2.00 03/06/20 01:13 110/48 03/06/20 01:00 101 03/06/20 01:00 101 30 112/48 (69) 94 Nasal Cannula 2.00 03/06/20 00:39 89/43 03/06/20 00:00 100 32 103/47 (65) 95 Nasal Cannula 2.00 03/05/20 23:55 Nasal Cannula 2.00 03/05/20 23:38 36.2 03/05/20 23:00 96 25 107/47 (67) 96 Nasal Cannula 2.00 03/05/20 22:20 105/51 03/05/20 22:17 86/44 03/05/20 22:15 Nasal Cannula 2.00 03/05/20 22:00 100 29 113/48 (69) 96 Nasal Cannula 3.00 03/05/20 22:00 03/05/20 21:57 120/51 03/05/20 21:00 95 29 123/48 (73) 97 Nasal Cannula 3.00 03/05/20 20:13 Nasal Cannula 3.00 03/05/20 20:00 37.1 03/05/20 20:00 91 29 122/47 (72) 97 Nasal Cannula 3.00 03/05/20 19:25 105/40 03/05/20 19:00 93 28 115/56 (75) 96 Nasal Cannula 3.00 03/05/20 19:00 94 03/05/20 18:00 101 30 120/58 (78) 93 Nasal Cannula 3.00 03/05/20 17:00 91 22 102/53 (69) 96 Mechanical Ventilator 4/9/20 16:21 101/52 03/05/20 16:00 Mechanical Ventilator 30 03/05/20 16:00 89 24 116/58 (77) 94 Mechanical Ventilator 03/05/20 15:00 82 15 104/51 (68) 96 Mechanical Ventilator 03/05/20 14:40 83 16 96 30 03/05/20 14:33 107/53 03/05/20 14:00 83 17 94/49 (64) 96 Mechanical Ventilator 03/05/20 13:00 78 03/05/20 12:30 85 22 87/58 (68) 95 Mechanical Ventilator 03/05/20 12:00 74 20 88/60 (69) 97 Mechanical Ventilator 03/05/20 12:00 Mechanical Ventilator 30 03/05/20 11:45 36.8 80 22 95/60 (72) 94 Mechanical Ventilator 03/05/20 11:30 75 20 92/54 (67) 95 Mechanical Ventilator 03/05/20 11:15 88 22 88/55 (66) 97 Mechanical Ventilator 03/05/20 11:00 85 20 90/54 (66) 95 03/05/20 10:58 79 14 95 30 03/05/20 10:00 89 24 84/54 (64) 96 Mechanical Ventilator 30.00 03/05/20 09:24 89/52 03/05/20 09:00 79 13 88/51 (63) 95 Mechanical Ventilator 30.00 03/05/20 08:00 37.1 03/05/20 08:00 Mechanical Ventilator 30 03/05/20 08:00 75 13 104/55 (71) 96 Mechanical Ventilator 30.00 03/05/20 07:00 76 17 114/58 (76) 95 Mechanical Ventilator 30.00 03/05/20 07:00 78 03/05/20 06:28 77 13 95 30 03/05/20 06:05 78 125/56 03/05/20 06:00 81 12 120/56 (77) 96 Mechanical Ventilator 30.00 03/05/20 05:00 72 12 123/58 (79) 95 Mechanical Ventilator 30.00 I & O 03/06/20 07:00 Intake Total 1750 ml Output Total 1700 ml Balance 50 ml Height & Weight Height: '" Weight: lbs. oz. kg; 29.25 BMI Method: General Appearance: Chronically ill, Other (sedated on vent) HEENT: No Scleral Icterus (L), No Scleral Icterus (R); Other (mucous membranes are very dry) Respiratory: Lungs Clear, Normal Breath Sounds Cardiovascular: Regular Rate, Rhythm, No Murmur Capillary Refill: Less Than 3 Seconds Gastrointestinal: soft, other (inicision is intact, with dried blood. Ileostomy is viable, no output yet but has minimial oozing of blood) Skin: Normal Color, Warm/Dry Results Lab Laboratory Tests 03/05/20 03:14 03/06/20 03:03 Assessment/Plan Assessment/Plan Acute respiratory failure secondary -pt is off vent and on 2 liters of oxygen Intrabdominal sepsis with shock -Continue IVF -Give liter bolus of LR - continue to titrate Levophed to D/C -Will add solucortef 100mg IV Q 8 -Jiang cultures pending - Rocephin and flagyl -IVF Large bowel obstruction secondary to sigmoid volvulus s/p resection Hyponatremia -Monitor Elevated troponin probably secondary to sepsis -repeat CAD -Check EKG EMIGDIO -IVF TANA ZHAO DO Mar 06, 2020 04:41
[2020-03-06] MEDS ORDERED: LACTATED RINGERS 1,000 ML IV SCH (04:45)
[2020-03-06] MEDS ORDERED: MAGNESIUM 1 GM/100 ML IVPB 100 ML IV ONE (04:45)
[2020-03-06] MEDS: MAGNESIUM 1 GM/100 ML IVPB 100 ML IV SCH (04:52)
[2020-03-06] MEDS: POTASSIUM CL 10MEQ/50ML IVPB 50 ML IV SCH (04:52)
[2020-03-06] MEDS: KCL 20 MEQ TAB (K-DUR) PO SCH (04:52)
[2020-03-06] MEDS ORDERED: HYDROCORTISONE 100 MG/2 ML (Solu-CORTEF) VIAL IV SCH (06:00)
--- NOTE | 2020-03-06 06:48 | NUR ---
THIS RN CHECKED LEVOPHED D/T IV PUMP BEEPING AND DECREASED BLOOD PRESSURE. NEW BAG HAD BEEN HUNG RECENTLY, HOWEVER, ON ASSESSMENT, IV BAG HAD LEAKED COMPLETELY EMPTY ONTO FLOOR. NEW BAG HUNG AND COMMENT WRITTEN ON IV SPREAD SHEET.
[2020-03-06] MEDS: PANTOPRAZOLE 40 MG (PROTONIX) VIAL IVP SCH (08:26)
[2020-03-06] MEDS: CLOPIDOGREL 75 MG (PLAVIX) TABLET PO SCH (08:26)
--- NOTE | 2020-03-06 08:31 | Diagnostic Imaging Report ---
Portable erect AP chest at 3:23. Indication: Postop sigmoid volvulus. In the interval since the prior exam of 03/05/2020 the patient has been extubated. The NG line and the central venous catheter on the right seen previously are again evident and no different. The heart size is stable. In the interval since the prior exam a pneumoperitoneum has developed beneath the right hemidiaphragm. Most likely this is a sequela of the patient's recent surgical procedure. There is still a small amount of atelectasis/infiltrate and fluid in the right lung base. The lungs are otherwise generally clear. The mediastinum is not widened. The osseous structures are intact. Impression: 1. A postoperative pneumoperitoneum has developed beneath right hemidiaphragm. There are still small amount of atelectasis/infiltrate and fluid involving the right lung base. The chest is otherwise stable. 2. The patient has been extubated. 3. These results were discussed with Dr. Cabrales. Dictated by: Dictated on workstation # [id number]
--- NOTE | 2020-03-06 08:33 | Physical Therapy Progress Note ---
Therapy Progress Note PT consulted with RN who requests a Hold on therapy on this date due to patient's current medical status. PT will continue to monitor patient status and initiate treatment when patient is medically stable. PHIL GERBER PT Mar 06, 2020 08:33
[2020-03-06] MEDS: ASPIRIN 81 MG CHEW (CHILDREN'S ASA) PO SCH (08:45)
[2020-03-06] MEDS ORDERED: POTASSIUM PHOSPHATE INJ 30 MM in NS (IVPB) 250 ML IV ONE (09:00)
--- NOTE | 2020-03-06 10:41 | Occ Therapy Progress Note ---
Therapy Progress Note Per nursing, therapy to be held on this date due to pt's medical state. OT to continue to monitor pt status and initiate eval/ treat when medically stable and able to participate in skilled therapy tx session. MAISHA DAVENPORT OTR Mar 06, 2020 10:41
--- NOTE | 2020-03-06 11:05 | NUR ---
Pastoral care visit.
--- NOTE | 2020-03-06 13:02 | NUR ---
CM/SS: Visited with pt as to plan for discharge Plan: Undetermined at this time. Pt reports living at home prior to her hospital stay. Summary: Pt reports feeling better, but still not feeling 100%. Pt reports that she knows this worker as this worker is familiar with a friend of hers. She reports that she came from home and that she would plan to return there upon discharge. This workers role is explained and pt reminded that this worker will follow up closer to discharge to coordinate services for her. She verbalizes understanding. When asked about family she report she has lots of good friends. This worker will follow up.
--- NOTE | 2020-03-06 13:06 | Progress Note - Surgery ---
Subjective Time Seen by a Provider: 12:41 Subjective/Events-last exam Pt seen and examined, states pain controlled with meds. Denies N/V and is taking sips of clears. Review of Systems General: Fatigue, Malaise Pulmonary: No Dyspnea, No Cough Cardiovascular: No: Chest Pain, Palpitations Gastrointestinal: Abdominal Pain unable to assess, pt on vent Focused Exam Lactate Level 03/05/20 03:59: Lactic Acid Level 1.66 Objective Exam Vital Signs Date Time Temp Pulse Resp B/P (MAP) Pulse Ox O2 Delivery O2 Flow Rate FiO2 03/06/20 12:55 115/51 03/06/20 12:26 104 03/06/20 12:25 37.8 107 93 03/06/20 12:00 106 24 128/56 (80) 93 Room Air 03/06/20 11:22 37.8 03/06/20 11:00 101 30 121/48 (72) 93 Room Air 03/06/20 10:11 105/43 03/06/20 10:00 98 27 115/42 (66) 94 Room Air 03/06/20 09:00 94 26 125/57 (79) Room Air 03/06/20 08:26 Room Air 03/06/20 08:18 98 Nasal Cannula 2.00 03/06/20 08:00 95 28 115/52 (73) 98 Nasal Cannula 2.00 03/06/20 08:00 36.8 03/06/20 08:00 Nasal Cannula 2.00 03/06/20 07:00 97 28 113/51 (71) 98 Nasal Cannula 2.00 03/06/20 07:00 97 03/06/20 06:49 106/51 03/06/20 06:46 77/38 03/06/20 06:27 133/54 03/06/20 06:00 101 28 127/49 (75) 95 Nasal Cannula 2.00 03/06/20 05:45 127/49 03/06/20 05:00 97 27 127/50 (75) 96 Nasal Cannula 2.00 03/06/20 04:00 97 29 107/45 (65) 95 Nasal Cannula 2.00 03/06/20 03:25 37.6 03/06/20 03:13 Nasal Cannula 2.00 03/06/20 03:04 113/44 03/06/20 03:00 101 28 108/49 (68) 94 Nasal Cannula 2.00 03/06/20 02:09 106/48 03/06/20 02:00 98 28 102/47 (65) 94 Nasal Cannula 2.00 03/06/20 01:13 110/48 03/06/20 01:00 101 03/06/20 01:00 101 30 112/48 (69) 94 Nasal Cannula 2.00 03/06/20 00:39 89/43 03/06/20 00:00 100 32 103/47 (65) 95 Nasal Cannula 2.00 03/05/20 23:55 Nasal Cannula 2.00 03/05/20 23:38 36.2 03/05/20 23:00 96 25 107/47 (67) 96 Nasal Cannula 2.00 03/05/20 22:20 105/51 03/05/20 22:17 86/44 03/05/20 22:15 Nasal Cannula 2.00 03/05/20 22:00 100 29 113/48 (69) 96 Nasal Cannula 3.00 03/05/20 22:00 03/05/20 21:57 120/51 03/05/20 21:00 95 29 123/48 (73) 97 Nasal Cannula 3.00 03/05/20 20:13 Nasal Cannula 3.00 03/05/20 20:00 37.1 03/05/20 20:00 91 29 122/47 (72) 97 Nasal Cannula 3.00 03/05/20 19:25 105/40 03/05/20 19:00 93 28 115/56 (75) 96 Nasal Cannula 3.00 03/05/20 19:00 94 03/05/20 18:00 101 30 120/58 (78) 93 Nasal Cannula 3.00 03/05/20 17:00 91 22 102/53 (69) 96 Mechanical Ventilator 03/05/20 16:21 101/52 03/05/20 16:00 Mechanical Ventilator 30 03/05/20 16:00 89 24 116/58 (77) 94 Mechanical Ventilator 03/05/20 15:00 82 15 104/51 (68) 96 Mechanical Ventilator 03/05/20 14:40 83 16 96 30 03/05/20 14:33 107/53 03/05/20 14:00 83 17 94/49 (64) 96 Mechanical Ventilator I & O 03/06/20 07:00 Intake Total 3200 ml Output Total 2300 ml Balance 900 ml Capillary Refill : Less Than 3 Seconds General Appearance: No Apparent Distress, Chronically ill HEENT: Moist Mucous Membranes; No Scleral Icterus (L), No Scleral Icterus (R) Respiratory: Lungs Clear, Normal Breath Sounds Cardiovascular: Regular Rate, Rhythm, No Murmur Gastrointestinal: soft, other (inicision is intact, with dried blood. Ileostomy is viable, no output yet but has minimial oozing of blood) Skin: Normal Color, Warm/Dry Results Lab Laboratory Tests 03/05/20 16:44: Blood Gas Puncture Site ART LINE, Blood Gas Patient Temperature 37.6, Arterial Blood pH 7.48H, Arterial Blood Partial Pressure CO2 31L, Arterial Blood Partial Pressure O2 121H, Arterial Blood HCO3 23, Arterial Blood Total CO2 23.4, Arterial Blood Oxygen Saturation 99, Arterial Blood Base Excess -0.6, Wilfred Test N/A, Blood Gas Ventilator Setting YES, Blood Gas Inspired Oxygen 30% 03/05/20 23:00: Glucometer 142H 03/06/20 03:03: White Blood Count 17.4H, Red Blood Count 3.79L, Hemoglobin 9.1L, Hematocrit 27L, Mean Corpuscular Volume 70L, Mean Corpuscular Hemoglobin 24L, Mean Corpuscular Hemoglobin Concent 34, Red Cell Distribution Width 22.3H, Platelet Count 383, Mean Platelet Volume 10.0, Neutrophils (%) (Auto) 75, Lymphocytes (%) (Auto) 6L, Monocytes (%) (Auto) 19H, Eosinophils (%) (Auto) 1, Basophils (%) (Auto) 0, Neutrophils # (Auto) 13.0H, Lymphocytes # (Auto) 1.0, Monocytes # (Auto) 3.2H, Eosinophils # (Auto) 0.1, Basophils # (Auto) 0.0, Sodium Level 140, Potassium Level 3.5L, Chloride Level 110H, Carbon Dioxide Level 19L, Anion Gap 11, Blood Urea Nitrogen 44H, Creatinine 0.95, Estimat Glomerular Filtration Rate > 60, BUN/Creatinine Ratio 46, Glucose Level 121H, Calcium Level 7.2L, Phosphorus Level 2.1L, Magnesium Level 1.8 03/06/20 11:36: Glucometer 127H Microbiology 03/04/20 MRSA Screen - Final, Complete MRSA not isolated Assessment/Plan Assessment/Plan Assessment/Plan S/P Subtotal Colectomy with End Ileostomy creation - 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 RT to help with IS. Continue IV fluids and pain meds as needed. Up to chair as tolerated. Monitor labs, steroids on hold for now. Pt still requiring some pressure support. Clinical Quality Measures DVT/VTE Risk/Contraindication: Risk Factor Score Per Nursin RFS Level Per Nursing on Admit: 4+=Very High SHEILA DE OLIVEIRA DO Mar 06, 2020 13:06
--- NOTE | 2020-03-06 15:00 | OPERATIVE REPORT ---
DATE OF SERVICE: 03/05/2020 PREOPERATIVE DIAGNOSES: Sigmoid volvulus hyponatremia, coronary artery disease, acute kidney injury, possible urinary tract infection. POSTOPERATIVE DIAGNOSES: Sigmoid volvulus hyponatremia, coronary artery disease, acute kidney injury, possible urinary tract infection plus ischemic bowel, septic shock. PROCEDURE: 1. Flexible sigmoidoscopy. 2. Subtotal colectomy with end ileostomy creation. 3. Central line insertion. SURGEON: Sheila Ji DO JEWELRY APPRAISER: Stuart Cardona DO. ANESTHESIA: General endotracheal tube. SPECIMEN: Almost the entire large bowel plus a small portion of terminal ileum. BLOOD LOSS: Less than 200 mL. FLUIDS: Per anesthesia. POSTOPERATIVE CONDITION: Stable. INDICATION FOR PROCEDURE: The patient is a 54-year-old female who came in with abdominal pain. Abdomen was very distended, looked to be even more than 9 months . CAT scan showed a sigmoid volvulus. She had a history of coronary artery disease with recent [place] in October. She had some mild acute kidney injury, hyponatremia and she was becoming hypotensive. FINDINGS: The patient had ischemic bowel and almost the entire large colon was ischemic and very very dilated. I have never seen this dilated. She had some venous insufficiency and was going to need some blood pressure support with IV medication, so a central line was placed at the end of the case. PROCEDURE NOTE: After informed consent was obtained, the patient was brought to the operating room for planned flexible sigmoidoscopy or colonoscopy to attempt decompression. I had discussed with her that if could not do this, she would probably have an exploratory laparotomy. She was then brought to the operating room, placed on table in left lateral decubitus position. She was administered some IV sedation by the INSURANCE LOSS ADJUSTER and then started the colonoscopy. Unfortunately, as we pushed in got only about 10 cm. It was very tightened down and then we pushed a little bit more saw bowel on the inside. Picture was taken and at this point then removed this colonoscopy; because she needed to go straight to exploratory laparotomy for bowel resection. She was intubated. She was then sterilely prepped and draped in normal fashion. I made a midline incision with a #10 blade, carried down through the skin and subcutaneous tissue, then deepened down to subcutaneous tissue with Bovie electrocautery, got into the abdomen and then protected the bowel with my hand and then opened with the Bovie electrocautery superiorly and inferiorly. The sigmoid colon was extremely dilated and necrotic, had opened the incision further and finally able to deliver basically all of the large intestine. It was all necrotic opened to release the air to make a little bit easier to work, then elected to start the subtotal colectomy, coming under the terminal ileum bluntly and with Bovie electrocautery to create a space and then placed a SOREN-75 across this, clamped and fired, thereby transecting and then came across the mesentery to remove the colon coming through under the terminal ileum, taking out the appendix and then started to take the cecum using LigaSure in a stepwise fashion, clamping, coagulating and transecting in this fashion coming up the ascending colon around the hepatic flexure along the transverse colon to the splenic flexure, then down the descending colon and sigmoid help completely removing the colon down into the rectum and just above the fascia and peritoneal reflection, able to free this area up, I elected to use a contour stapler to get across the proximal portion of the rectum, clamped and fired, thereby transecting and then removed this entire portion of the colon passed this off the table. The patient was placed in Trendelenburg to keep her blood pressures up. There is some mild spillage of fecal material from the colotomy to release the air. Copiously irrigated the abdomen with 6 liters of warm normal saline. The patient remained stable in the Trendelenburg position. She was on some blood pressure support, elected to do an end ileostomy. We had thought about possibly placing an Abthera VAC and coming back, but because she was stable I elected to do this in one procedure and so in the right lower quadrant, cut a circular portion of skin and then cut the subcutaneous fat down to the fascia could be made a cruciate incision and the fascia with bovie cautery, came thru the muscle with two fingers. Placed a Alie through this opening into the abdomen, grasped the terminal ileum, pulled this through the abdominal wall. There was some bleeding in the pelvis. This was controlled with Bovie electrocautery as well as some Surgiflo and Surgicel as well as some Gelfoam. Bleeding stopped. No other bleeding or any obvious pathology. At this point, I elected to close the incision with #1 double stranded PDS suture running from the inferior portion to superior portion tying to itself. Area was then irrigated with saline and then closed this with balbina and then matured the ileostomy. Cut the end of the terminal ileum off and then did a Lexus ileostomy, suture at 3, 6, 9, and 12 o'clock brooking the ileostomy down and then in between did this with a 3-0 Vicryl and then in between did 2 interrupted sutures of 3-0 Vicryl to mature the ileostomy, looked very nice. There was some minimal oozing, but looked viable and at this point then the area was cleaned and dried, pressure dressing placed in the midline and the ostomy device placed on the ileostomy. Because the patient was hypotensive, I then went above and did a central line placement with ultrasound guidance; located the right IJ. She was sterilely prepped and draped in normal fashion and using an 18-gauge fine needle with negative inspiration watched with ultrasound; able to cannulate the right IJ on the second attempt. Good flash of blood, removed the syringe, placed a guidewire using Seldinger technique, checked with ultrasound and guidewire was down in the right IJ, made a stab incision along the guidewire and then over the guidewire placed a dilator using Seldinger technique, removed the dilator. I then over the guidewire, placed the triple lumen catheter using Seldinger technique, it went in easily and then removed the guidewire and then central line in place with a 3-0 silk suture and then had caps on each end of the triple lumen, locking caps easily aspirated and flushed in all ports, got a good flash of blood and then an Op-Site was placed to cover this. The patient was then transferred to the ICU in stable condition. Sponge, instrument and needle count correct at the end of the case. Dr. Cardona assisted in this case helping to make incisions, close the incision, identify anatomy and moving anatomy out of the way. Job ID: [id number] DocumentID: [id number] Dictated Date: 03/06/2020 10:14:05 [employer] Direction Specialist Date: 03/06/2020 14:59:40 Dictated By: SHEILA JI DO [facility]OSPITALCharles
--- NOTE | 2020-03-06 16:11 | Progress Note - Cardiology ---
Cardiology SOAP Progress Note Subjective: Does not report cp or palp or syncope Communication difficult. Off vent. Has NGT. Seems to some difficulty speaking Nods to yes to question about gen malaise Objective: I&O/Vital Signs 03/06/20 03/06/20 03/06/20 03/06/20 05:00 05:45 06:00 06:27 Pulse 97 101 Resp 27 28 B/P (MAP) 127/50 (75) 127/49 127/49 (75) 133/54 Pulse Ox 96 95 O2 Delivery Nasal Cannula Nasal Cannula O2 Flow Rate 2.00 2.00 03/06/20 03/06/20 03/06/20 03/06/20 06:46 06:49 07:00 07:00 Pulse 97 97 Resp 28 B/P (MAP) 77/38 106/51 113/51 (71) Pulse Ox 98 O2 Delivery Nasal Cannula O2 Flow Rate 2.00 03/06/20 03/06/20 03/06/20 03/06/20 08:00 08:00 08:00 08:18 Temp 36.8 Pulse 95 Resp 28 B/P (MAP) 115/52 (73) Pulse Ox 98 98 O2 Delivery Nasal Cannula Nasal Cannula Nasal Cannula O2 Flow Rate 2.00 2.00 2.00 03/06/20 03/06/20 03/06/20 03/06/20 08:26 09:00 10:00 10:11 Pulse 94 98 Resp 26 27 B/P (MAP) 125/57 (79) 115/42 (66) 105/43 Pulse Ox 94 O2 Delivery Room Air Room Air Room Air 03/06/20 03/06/20 03/06/20 03/06/20 11:00 11:22 12:00 12:00 Temp 37.8 Pulse 101 106 Resp 30 24 B/P (MAP) 121/48 (72) 128/56 (80) Pulse Ox 93 93 O2 Delivery Room Air Room Air Nasal Cannula O2 Flow Rate 2.00 03/06/20 03/06/20 03/06/20 03/06/20 12:25 12:26 12:55 13:00 Temp 37.8 Pulse 107 104 105 Resp 27 B/P (MAP) 115/51 120/53 (75) Pulse Ox 93 96 O2 Delivery Room Air 03/06/20 03/06/20 03/06/20 13:23 14:00 15:00 Pulse 103 103 Resp 30 32 B/P (MAP) 148/67 (94) 135/63 (87) Pulse Ox 98 96 96 O2 Delivery Room Air Room Air Room Air 03/06/20 00:00 Intake Total 250 ml Output Total 1300 ml Balance -1050 ml Constitutional: other (extubated, appropriately responsive) Respiratory: No accessory muscle use; other (good bilat air entry) Cardiovascular: regular rate-rhythm, S1 and S2, systolic murmur (faint AURA at card base) Gastrointestional: other (post surgical abdomen; we did not attempt palpation; absent bs) Extremities: No clubbing, No cyanosis, No significant edema Neurologic/Psychiatric: other (seems to able to move all limbs equally) Skin: No rash on exposed areas, No ulcerations on exposed areas Results/Procedures: Labs Laboratory Tests 03/05/20 16:44: Blood Gas Puncture Site ART LINE, Blood Gas Patient Temperature 37.6, Arterial Blood pH 7.48H, Arterial Blood Partial Pressure CO2 31L, Arterial Blood Partial Pressure O2 121H, Arterial Blood HCO3 23, Arterial Blood Total CO2 23.4, Arterial Blood Oxygen Saturation 99, Arterial Blood Base Excess -0.6, Wilfred Test N/A, Blood Gas Ventilator Setting YES, Blood Gas Inspired Oxygen 30% 03/05/20 23:00: Glucometer 142H 03/06/20 03:03: White Blood Count 17.4H, Red Blood Count 3.79L, Hemoglobin 9.1L, Hematocrit 27L, Mean Corpuscular Volume 70L, Mean Corpuscular Hemoglobin 24L, Mean Corpuscular Hemoglobin Concent 34, Red Cell Distribution Width 22.3H, Platelet Count 383, Mean Platelet Volume 10.0, Neutrophils (%) (Auto) 75, Lymphocytes (%) (Auto) 6L, Monocytes (%) (Auto) 19H, Eosinophils (%) (Auto) 1, Basophils (%) (Auto) 0, N eutrophils # (Auto) 13.0H, Lymphocytes # (Auto) 1.0, Monocytes # (Auto) 3.2H, Eosinophils # (Auto) 0.1, Basophils # (Auto) 0.0, Sodium Level 140, Potassium Le audrey 3.5L, Chloride Level 110H, Carbon Dioxide Level 19L, Anion Gap 11, Blood Urea Nitrogen 44H, Creatinine 0.95, Estimat Glomerular Filtration Rate > 60, BUN/Creatinine Ratio 46, Glucose Level 121H, Calcium Level 7.2L, Phosphorus Level 2.1L, Magnesium Level 1.8 03/06/20 11:36: Glucometer 127H Microbiology 03/05/20 Blood Culture - Preliminary, Resulted No growth 03/04/20 MRSA Screen - Final, Complete MRSA not isolated Laboratory Tests 03/05/20 03:14 03/06/20 03:03 A/P: Assessment: Day 2 post colectomy for intestinal obstruction Hypotension post surgery, improved Abnormal ECG, but no evidence of ac NC CAD, h/o cor stenting at [facility] Oct 2019. Last card cath on 03/05/20: patent stents in the mid left circumflex and the mid right coronary arteries. There is moderate diffuse disease of all coronary arteries. There is moderately severe diffuse disease of the distal left anterior descending. A small caliber obtuse marginal has 70% to 80% ostial stenosis. Normal left ventricular end- diastolic pressure. Echo of 03/05/20: LVEF 60-65%, mild to mod TR, RVSP 35-40 mmHg, mild dilatation of LA EMIGDIO 2, improved Plan: * Complex management due to multiple comorbidities * Based on card w/u of 03/05/20 (see above) her post-op hypotension does not appear to have been cardiac. I discussed her CV issues and her CV w/u with her * Continue DAPT because of recent coronary stenting * Monitor and correct labs * Further recs to be based on hosp course IV KO MD FACP FAC CCDS Mar 06, 2020 16:11
[2020-03-06] MEDS: RT-ALBUTEROL SULF 2.5 MG/3 ML PRE-MIX VIAL INH SCH (18:18)
[2020-03-07] VITALS (24 sets, daily range): BP systolic 87–144; BP diastolic 37–73
[2020-03-07] MEDS: metroNIDAZOLE 500MG/100ML IVPB 100 ML IV SCH ×3 (02:19→18:28)
[2020-03-07] MEDS: fentaNYL INJECTION 100 MCG/2 ML AMP IVP PRN ×2 (02:19→22:51)
[2020-03-07] MEDS: cefTRIAXone FOR IV USE 1,000 MG in WATER (STERILE) FOR INJECTION 10 ML IV SCH (03:31)
[2020-03-07] MEDS: ENOXAPARIN 40 MG/0.4 ML (LOVENOX) SYR SC SCH (03:31)
[2020-03-07 03:38] LABS: BASOPHILS % (AUTO) 0 % (0-10); EOSINOPHILS # (AUTO) 0.1 10^3/uL (0.0-0.3); EOSINOPHILS % (AUTO) 1 % (0-10); HEMATOCRIT 26 % (35-52); HEMOGLOBIN 8.9 G/DL (11.5-16.0); LYMPHOCYTES # (AUTO) 0.8 X 10^3 (1.0-4.0); LYMPHOCYTES % (AUTO) 5 % (12-44); MEAN CORPUSCULAR HEMOGLOBIN 24 PG (25-34); MEAN CORPUSCULAR HGB CONC 34 G/DL (32-36); MEAN CORPUSCULAR VOLUME 71 FL (80-99); MEAN PLATELET VOLUME 10.5 FL (7.4-10.4); MONOCYTES # (AUTO) 2.3 X 10^3 (0.0-1.0); MONOCYTES % (AUTO) 15 % (0-12); NEUTROPHILS # (AUTO) 12.6 X 10^3 (1.8-7.8); NEUTROPHILS % (AUTO) 80 % (42-75); PLATELET COUNT 319 10^3/uL (130-400); RED CELL DISTRIBUTION WIDTH 23.1 % (10.0-14.5); WHITE BLOOD COUNT 15.7 10^3/uL (4.3-11.0)
[2020-03-07 03:48] LABS: POTASSIUM 3.7 MMOL/L (3.6-5.0)
[2020-03-07 03:54] LABS: CREATININE SERUM 0.98 MG/DL (0.60-1.30)
[2020-03-07 03:56] LABS: MAGNESIUM 2.3 MG/DL (1.6-2.4)
[2020-03-07] MEDS: LACTATED RINGERS 1,000 ML IV SCH ×6 (05:00→22:52)
[2020-03-07] MEDS: VASOPRESSIN INJECTION 20 UNIT in NORMAL SALINE 100 ML IV SCH ×3 (05:04→21:18)
[2020-03-07] MEDS: KCL 20 MEQ TAB (K-DUR) PO SCH (05:05)
[2020-03-07] MEDS: MAGNESIUM 1 GM/100 ML IVPB 100 ML IV SCH (05:05)
[2020-03-07] MEDS: POTASSIUM CL 10MEQ/50ML IVPB 50 ML IV SCH (05:05)
--- NOTE | 2020-03-07 05:52 | Pulmonary Progress Note ---
Subjective Time Seen by a Provider: 05:47 Subjective/Events-last exam Pt is still on Levophed gtt. Respiratory munoz she is doing well Sepsis Event Evaluation Height, Weight, BMI Height: '" Weight: lbs. oz. kg; 29.25 BMI Method: Focused Exam Lactate Level 03/05/20 03:59: Lactic Acid Level 1.66 Exam Exam Vital Signs Date Time Temp Pulse Resp B/P (MAP) Pulse Ox O2 Delivery O2 Flow Rate FiO2 03/07/20 04:00 36.7 03/07/20 04:00 93 22 94/41 (58) 96 Room Air 03/07/20 04:00 Room Air 03/07/20 03:00 99 25 103/50 (67) 95 Room Air 03/07/20 02:00 98 24 111/59 (76) 97 Room Air 03/07/20 01:00 93 27 92/47 (62) 95 Room Air 03/07/20 01:00 93 03/07/20 00:00 Room Air 03/07/20 00:00 36.5 03/07/20 00:00 94 30 93/51 (65) 96 Room Air 03/06/20 23:00 96 25 102/58 (73) 95 Room Air 03/06/20 22:00 93 19 85/58 (67) 90 Room Air 03/06/20 21:37 89/49 03/06/20 21:00 93 33 98/51 (67) 97 Room Air 03/06/20 20:36 86/53 03/06/20 20:00 Room Air 03/06/20 20:00 93 26 96/53 (67) 96 Room Air 03/06/20 19:39 37.2 03/06/20 19:00 97 03/06/20 19:00 94 29 100/49 (66) 97 Room Air 03/06/20 18:17 97 Room Air 03/06/20 18:00 98 31 101/48 (65) 96 Room Air 03/06/20 17:00 96 30 95/48 (64) 95 Room Air 03/06/20 16:00 Room Air 03/06/20 16:00 96 31 132/61 (84) 96 Room Air 03/06/20 15:48 37.5 03/06/20 15:00 103 32 135/63 (87) 96 Room Air 03/06/20 14:00 103 30 148/67 (94) 96 Room Air 03/06/20 13:23 98 Room Air 03/06/20 13:00 105 27 120/53 (75) 96 Room Air 03/06/20 12:55 115/51 03/06/20 12:26 104 03/06/20 12:25 37.8 107 93 03/06/20 12:00 Nasal Cannula 2.00 03/06/20 12:00 106 24 128/56 (80) 93 Room Air 03/06/20 11:22 37.8 03/06/20 11:00 101 30 121/48 (72) 93 Room Air 03/06/20 10:11 105/43 03/06/20 10:00 98 27 115/42 (66) 94 Room Air 03/06/20 09:00 94 26 125/57 (79) Room Air 03/06/20 08:26 Room Air 03/06/20 08:18 98 Nasal Cannula 2.00 03/06/20 08:00 95 28 115/52 (73) 98 Nasal Cannula 2.00 03/06/20 08:00 36.8 03/06/20 08:00 Nasal Cannula 2.00 03/06/20 07:00 97 28 113/51 (71) 98 Nasal Cannula 2.00 03/06/20 07:00 97 03/06/20 06:49 106/51 03/06/20 06:46 77/38 03/06/20 06:27 133/54 03/06/20 06:00 101 28 127/49 (75) 95 Nasal Cannula 2.00 I & O 03/07/20 07:00 Intake Total 1000 ml Output Total 1425 ml Balance -425 ml Height & Weight Height: '" Weight: lbs. oz. kg; 29.25 BMI Method: General Appearance: No Apparent Distress, Chronically ill HEENT: Moist Mucous Membranes; No Scleral Icterus (L), No Scleral Icterus (R) Respiratory: Lungs Clear, Normal Breath Sounds Cardiovascular: Regular Rate, Rhythm, No Murmur Capillary Refill: Less Than 3 Seconds Gastrointestinal: soft, other (inicision is intact, with dried blood. Ileostomy is viable, no output yet but has minimial oozing of blood) Skin: Normal Color, Warm/Dry Results Lab Laboratory Tests 03/06/20 03:03 4/11/20 02:16 Assessment/Plan Assessment/Plan Acute respiratory failure secondary -pt is off vent and on 2 liters of oxygen Intrabdominal sepsis with shock -Currently LR at 150cc/hr -Pt has decreased UO and is very concentrated. She is on Levophed for hypotension. -Increase IVF to 250ml/hr x 2 liters then back to 150 -Pt is still on Levophed -Dr. Ji does not want solucortef at this time -Jiang cultures pending - Rocephin and flagyl -IVF Large bowel obstruction secondary to sigmoid volvulus s/p resection Hyponatremia - improving -Monitor Elevated troponin probably secondary to sepsis -repeat CAD -Check EKG EMIGDIO -- improving -IVF TANA ZHAO DO Mar 07, 2020 05:52
[2020-03-07] MEDS: RT-ALBUTEROL SULF 2.5 MG/3 ML PRE-MIX VIAL INH SCH ×2 (07:02→20:21)
[2020-03-07 07:09] LABS: BILIRUBIN,URINE 1+ (NEGATIVE); CLARITY,URINE CLOUDY; COLOR,URINE BROWN; GLUCOSE, URINE (UA) NEGATIVE (NEGATIVE); KETONES,URINE TRACE (NEGATIVE); LEUKOCYTE ESTERASE ,URINE TRACE (NEGATIVE); NITRITE,URINE NEGATIVE (NEGATIVE); PROTEIN,URINE 1+ (NEGATIVE)
[2020-03-07 07:22] LABS: AMORPHOUS SEDIMENT,UR FEW AMOR URATES /LPF; BACTERIA,URINE NEGATIVE /HPF
[2020-03-07] MEDS: CLOPIDOGREL 75 MG (PLAVIX) TABLET PO SCH (08:33)
[2020-03-07] MEDS: PANTOPRAZOLE 40 MG (PROTONIX) VIAL IVP SCH (08:33)
[2020-03-07] MEDS: ASPIRIN 81 MG CHEW (CHILDREN'S ASA) PO SCH (08:33)
--- NOTE | 2020-03-07 08:33 | Physical Therapy Evaluation ---
PT Evaluation-General Medical Diagnosis Admission Date Mar 04, 2020 at 20:27 Medical Diagnosis: large bowel obstruction Onset Date: Mar 04, 2020 Therapy Diagnosis Therapy Diagnosis: generalized weakness/debility Precautions Precautions/Isolations: Fall Prevention, Standard Precautions Referral Physician: Garrison Reason for Referral: Evaluation/Treatment Medical History Pertinent Medical History: Heart Failure, HTN, [place] Current History s/p ischemic bowel and bowel resection/and heart cath Reviewed History: Yes Social History Home: Single Level Current Living Status: Alone Prior Prior Level of Function SCALE: Activities may be completed with or without assistive devices. 1-Ldcsskwxap-ccbfdzy completes the activity by him/herself with no assistance from a helper. 5-Set-up or Clean-up Assistance-helper sets up or cleans up; patient completes activity. [place] assists only prior to or following the activity. 4-Supervision or Touching Assistance-helper provides verbal cues and/or touching/steadying and/or contact guard assistance as patient completes activity. Assistance may be provided throughout the activity or intermittently. 3-Partial/Moderate Assistance-helper does LESS THAN HALF the effort. [place] lifts, holds or supports trunk or limbs, but provides less than half the effort. 2-Substantial/Maximal Assistance-helper does MORE THAN HALF the effort. [place] lifts or holds trunk or limbs and provides more than half the effort. 8-Zxraqmjih-gbbwiy does ALL the effort. Patient does none of the effort to complete the activity. Or, the assistance of 2 or more helpers is required for the patient to complete the activity. If activity was not attempted, code reason: 7-Patient Refused. 9-Not Applicable-not attempted and the patient did not perform the activity before the current illness, exacerbation or injury. 10-Not Attempted due to Environmental Limitations-(lack of equipment, weather restraints, etc.). 88-Not Attempted due to Medical Conditions or Safety Concerns. 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 PT Evaluation-Current Subjective Patient agrees to up in recliner Pain Numeric Pain Scale: 8 Location: Lower Location Body Site: Abdomen Pain Description: Acute Objective Patient Orientation: Normal For Age Attachments: NG Tube, SCD's, Monson Catheter, IV ROM/Strength ROM Lower Extremities bilateral LE WFL Strength Lower Extremities 3/5 grossly bilateral LE Integumentary/Posture Integumentary refer to nursing notes Bladder Incontinence: Monson Cath Posture WFL Neuromuscular (Tone, Coordination, Reflexes) grossly intact Sensory Vision: Functional Hearing: Functional Sensation Right Lower Extremit: Intact Sensation Left Lower Extremity: Intact Transfers Roll Left to Right (QC): 2 Sit to Lying (QC): 2 Lying to Sitting/Side of Bed(Q: 2 Sit to Stand (QC): 2 Chair/Fda-zt-Sfvor Xfer(QC): 2 Gait Does the Patient Walk?: No and Walking Goal IS indicated Balance Sitting Static: Normal Sitting Dynamic: Normal Standing Static: Fair Standing Dynamic: Fair Assessment/Needs 54 y.o. female, will benefit from skilled PT to address functional strength and mobility to improve current LOF to safely return to independent PLOF. Rehab Potential: Fair PT Group Home Goals [employer] Goals PT [employer] Goals Time Frame: Mar 21, 2020 Roll Left & Right (QC): 6 Sit to Lying (QC): 6 Lying-Sitting on Side/Bed(QC): 6 Sit to Stand (QC): 6 Chair/Izo-oc-Tijuh Xfer(QC): 6 Toilet Transfer (QC): 6 Car Transfer (QC): 6 Does the Patient Walk: Yes Walk 10 feet (QC): 6 Walk 50ft with 2 Turns (QC): 6 Walk 150 ft (QC): 6 Walking 10ft on Uneven Surface: 6 PT Plan Problem List Problem List: Activity Tolerance, Functional Strength, Balance, Gait, Transfer, Bed Mobility Treatment/Plan Treatment Plan: Continue Plan of Care Treatment Plan: Bed Mobility, Education, Functional Activity Fern, Functional Strength, Gait, Safety, Therapeutic Exercise, Transfers Treatment Duration: Mar 21, 2020 Frequency: 6 times per week Estimated Hrs Per Day: .25 hour per day Patient and/or Family Agrees t: Yes Time/GCodes Time In: 710 Time Out: 733 Total Billed Treatment Time: 23 Total Billed Treatment 1 visit EVModC 23 min PHIL GERBER PT Mar 07, 2020 08:33
--- NOTE | 2020-03-07 08:42 | Diagnostic Imaging Report ---
EXAM: Portable erect AP chest at 3:32 INDICATION: Postop sigmoid volvulus. FINDINGS: The prior exam of 03/06/2020 noted a postoperative pneumoperitoneum beneath the right hemidiaphragm. The pneumoperitoneum has nearly completely resolved. The heart is stable in size. There is still a small amount of atelectasis/infiltrate in the right lung base. The lungs are otherwise generally clear. The mediastinum is not widened. The osseous structures are intact. The central venous catheter on the right and the NG line seen previously are again evident and no different. IMPRESSION: 1. In the interval since the prior study, the free air beneath the right hemidiaphragm has essentially resolved. There is still a small amount of atelectasis/infiltrate and fluid in the right lung base however. 2. The overall appearance of the chest is otherwise stable. Dictated by: Dictated on workstation # [id number]
--- NOTE | 2020-03-07 08:46 | Occupational Therapy Eval ---
OT Evaluation-General/PLF Medical Diagnosis Admission Date Mar 04, 2020 at 20:27 Medical Diagnosis: large bowel obstruction Onset Date: Mar 04, 2020 Therapy Diagnosis Therapy Diagnosis: decreased self care skills Precautions Precautions/Isolations: Fall Prevention, Standard Precautions Safety Interventions: None Referral Physician: Garrison Medical History Pertinent Medical History: Heart Failure, HTN, [place] Current History s/p ischemic bowel and bowel resection/and heart cath Reviewed History: Yes Social History Home: Single Level Current Living Status: Alone Steps Into Home: 3 ADL-Prior Level of Function SCALE: Activities may be completed with or without assistive devices. 7-Iyitmtbbtu-tollzql completes the activity by him/herself with no assistance from a helper. 5-Set-up or Clean-up Assistance-helper sets up or cleans up; patient completes activity. [place] assists only prior to or following the activity. 4-Supervision or Touching Assistance-helper provides verbal cues and/or touching/steadying and/or contact guard assistance as patient completes activity. Assistance may be provided throughout the activity or intermittently. 3-Partial/Moderate Assistance-helper does LESS THAN HALF the effort. [place] lifts, holds or supports trunk or limbs, but provides less than half the effort. 2-Substantial/Maximal Assistance-helper does MORE THAN HALF the effort. [place] lifts or holds trunk or limbs and provides more than half the effort. 4-Wbsfjkvlr-nxqylx does ALL the effort. Patient does none of the effort to complete the activity. Or, the assistance of 2 or more helpers is required for the patient to complete the activity. If activity was not attempted, code reason: 7-Patient Refused. 9-Not Applicable-not attempted and the patient did not perform the activity before the current illness, exacerbation or injury. 10-Not Attempted due to Environmental Limitations-(lack of equipment, weather restraints, etc.). 88-Not Attempted due to Medical Conditions or Safety Concerns. ADL PLOF Comments Pt reports being independent with self care and mobility prior to admission Self Care: Independent Functional Cognition: Independent Drive Self: No OT Current Status Subjective Pt sitting in chair, agrees to therapy. Pt reports 4/10 abdominal pain, but states she is felling better. Mental Status/Objective Patient Orientation: Person, Place Attachments: Monson Catheter, IV, NG Tube Current Dentures/Partials: Yes Hand Dominance: Right Upper Extremity Coordination Fair Upper Extremity Strength Not formally assessed secondary to pain following abdominal surgery. Pt demonstrates generalized weakness ADL-Treatment ADL-Current Pt participates in evaluation while sitting in chair. Pt washes face with SBA. Pt drinks from cup with straw with set up. Pt is very fatigued this morning. Will further assess ADLs in future sessions as pt able to tolerate. Education provided regarding role of OT and plan of care. Pt states understanding and is in agreement with plan. Pt sitting in chair with needs met and RN present after session. Education OT Patient Education: Rehab process Teaching Recipient: Patient Teaching Methods: Discussion Response to Teaching: Verbalize Understanding OT Short Term Goals Short Term Goals Time Frame: Mar 14, 2020 Toileting hygiene: 3 Shower/bathe self: 3 Upper body dressin Lower body dressin OT Detention Goals Executive Communications Manager Goals Time Frame: Mar 21, 2020 Eating (QC): 6 Oral Hygiene (QC): 5 Toileting Hygiene (QC): 5 Shower/Bathe Self (QC): 4 Upper Body Dressing (QC): 5 Lower Body Dressing (QC): 5 On/Off Footwear (QC): 5 Additional Goals: 2-Verbalize Understanding, 3-ImproveStrength/Fern 1=Demonstrate adherence to instructed precautions during ADL tasks. 2=Patient will verbalize/demonstrate understanding of assistive devices/modifications for ADL. 3=Patient will improve strength/tolerance for activity to enable patient to perform ADL's. OT Education/Plan Problem List/Assessment Assessment: Decreased Activ Tolerance, Decreased UE Strength, Dependent Transfers, Impaired Funct Balance, Impaired I ADL's, Impaired Self-Care Skills Pt to benefit from skilled OT intervention for ADL training, transfers, strengthening, and home safety education to increase level of independence and allow safe discharge. Discharge Recommendations Plan/Recommendations: Continue POC Treatment Plan/Plan of Care Treatment,Training & Education: Yes Patient would benefit from OT for education, treatment and training to promote independence in ADL's, mobility, safety and/or upper extremity function for ADL's. Plan of Care: ADL Retraining, Functional Mobility, UE Funct Exercise/Act Treatment Duration: Mar 21, 2020 Frequency: 5 times per week Estimated Hrs Per Day: .25 hour per day Rehab Potential: Fair Time/GCodes Start Time: 08:29 Stop Time: 08:41 Total Time Billed (hr/min): 12 Billed Treatment Time 1 visit, [facility](12minutes) NAS BOYD OT Mar 07, 2020 08:46
--- NOTE | 2020-03-07 14:29 | Progress Note - Surgery ---
Subjective Time Seen by a Provider: 12:01 Subjective/Events-last exam Pt seen and examined, sitting up in chair. States she feels fine. Nurse states 1000ml of NGT out put Review of Systems Pulmonary: No Dyspnea, No Cough Cardiovascular: No: Chest Pain, Palpitations Gastrointestinal: Abdominal Pain (at inicision); No: Nausea, Vomiting unable to assess, pt on vent Focused Exam Lactate Level 03/05/20 03:59: Lactic Acid Level 1.66 Objective Exam Vital Signs Date Time Temp Pulse Resp B/P (MAP) Pulse Ox O2 Delivery O2 Flow Rate FiO2 03/07/20 14:00 96 108/40 (62) 98 Room Air 03/07/20 13:00 93 03/07/20 13:00 96 119/49 (72) 100 Room Air 03/07/20 12:00 92 114/46 (68) 98 Room Air 03/07/20 11:00 92 113/43 (66) 91 Room Air 03/07/20 10:00 96 107/42 (63) 97 Room Air 03/07/20 09:00 93 107/43 (64) Room Air 03/07/20 08:00 101 30 108/46 (66) Room Air 03/07/20 08:00 Room Air 03/07/20 07:02 100 Room Air 03/07/20 07:00 95 03/07/20 07:00 94 35 100/47 (64) 97 Room Air 03/07/20 06:00 98 25 87/39 (55) 94 Room Air 03/07/20 05:00 97 20 93/39 (57) 94 Room Air 03/07/20 04:00 36.7 03/07/20 04:00 93 22 94/41 (58) 96 Room Air 03/07/20 04:00 Room Air 03/07/20 03:00 99 25 103/50 (67) 95 Room Air 03/07/20 02:00 98 24 111/59 (76) 97 Room Air 03/07/20 01:00 93 27 92/47 (62) 95 Room Air 03/07/20 01:00 93 03/07/20 00:00 Room Air 03/07/20 00:00 36.5 03/07/20 00:00 94 30 93/51 (65) 96 Room Air 03/06/20 23:00 96 25 102/58 (73) 95 Room Air 03/06/20 22:00 93 19 85/58 (67) 90 Room Air 03/06/20 21:37 89/49 03/06/20 21:00 93 33 98/51 (67) 97 Room Air 03/06/20 20:36 86/53 03/06/20 20:00 Room Air 03/06/20 20:00 93 26 96/53 (67) 96 Room Air 03/06/20 19:39 37.2 03/06/20 19:00 97 03/06/20 19:00 94 29 100/49 (66) 97 Room Air 03/06/20 18:17 97 Room Air 03/06/20 18:00 98 31 101/48 (65) 96 Room Air 03/06/20 17:00 96 30 95/48 (64) 95 Room Air 03/06/20 16:00 Room Air 03/06/20 16:00 96 31 132/61 (84) 96 Room Air 03/06/20 15:48 37.5 03/06/20 15:00 103 32 135/63 (87) 96 Room Air I & O 03/07/20 07:00 Intake Total 1050 ml Output Total 3275 ml Balance -2225 ml Capillary Refill : Less Than 3 Seconds General Appearance: No Apparent Distress, Chronically ill HEENT: Moist Mucous Membranes; No Scleral Icterus (L), No Scleral Icterus (R) Respiratory: Lungs Clear, Normal Breath Sounds Cardiovascular: Regular Rate, Rhythm, No Murmur Gastrointestinal: soft, other (inicision is intact, with dried blood. Ileostomy has large amount of output) Skin: Normal Color, Warm/Dry Results Lab Laboratory Tests 03/06/20 17:52: Glucometer 152H 03/07/20 02:16: White Blood Count 15.7H, Red Blood Count 3.69L, Hemoglobin 8.9L, Hematocrit 26L, Mean Corpuscular Volume 71L, Mean Corpuscular Hemoglobin 24L, Mean Corpuscular Hemoglobin Concent 34, Red Cell Distribution Width 23.1H, Platelet Count 319, Mean Platelet Volume 10.5H, Neutrophils (%) (Auto) 80H, Lymphocytes (%) (Auto) 5L, Monocytes (%) (Auto) 15H, Eosinophils (%) (Auto) 1, Basophils (%) (Auto) 0, Neutrophils # (Auto) 12.6H, Lymphocytes # (Auto) 0.8L, Monocytes # (Auto) 2.3H, Eosinophils # (Auto) 0.1, Basophils # (Auto) 0.0, Sodium Level 142, Potassium Level 3.7, Chloride Level 113H, Carbon Dioxide Level 18L, Anion Gap 11, Blood Urea Nitrogen 40H, Creatinine 0.98, Estimat Glomerular Filtration Rate 59, BUN/Creatinine Ratio 41, Glucose Level 164H, Calcium Level 7.0L, Phosphorus Level 3.0, Magnesium Level 2.3 03/07/20 06:25: Urine Color BROWNH, Urine Clarity CLOUDY, Urine pH 5.0, Urine Specific [place] 1.020, Urine Protein 1+H, Urine Glucose (UA) NEGATIVE, Urine Ketones TRACEH, Urine Nitrite NEGATIVE, Urine Bilirubin 1+H, Urine Urobilinogen 1.0, Urine L eukocyte Esterase TRACEH, Urine RBC (Auto) NEGATIVE, Urine RBC NONE, Urine WBC 2-5, Urine Squamous Epithelial Cells 5-10, Urine Crystals PRESENTH, Urine Amorphous Sediment FEW CRISTOBAL URATESH, Urine Bacteria NEGATIVE, Urine Casts NONE, Urine Mucus SMALLH, Urine Culture Indicated NO Microbiology 03/05/20 Blood Culture - Preliminary, Resulted No growth 03/04/20 MRSA Screen - Final, Complete MRSA not isolated Assessment/Plan Assessment/Plan Assessment/Plan S/P Subtotal Colectomy with End Ileostomy creation - secondary to Ischemic bowel Sigmoid Volvulus - causing Large Bowel Obstruction Hyponatremia - resolved CAD - hx of [place] with stent placement 4 months ago EMIGDIO - improved slightly UTI - repeat UA looks ok Clears as tolerated and will retry NGT clamped. RT to help with IS. Continue IV fluids and pain meds as needed. Up to chair and start to ambulate as tolerat ed. Monitor labs. Clinical Quality Measures DVT/VTE Risk/Contraindication: Risk Factor Score Per Nursin RFS Level Per Nursing on Admit: 4+=Very High SHEILA DE OLIVEIRA DO Mar 07, 2020 14:29
--- NOTE | 2020-03-07 15:29 | Progress Note - Cardiology ---
Cardiology SOAP Progress Note Subjective: No cp or palp or syncope No shortness of breath at rest Gen weakness and malaise Objective: I&O/Vital Signs 03/07/20 03/07/20 03/07/20 03/07/20 04:00 04:00 04:00 05:00 Temp 36.7 Pulse 93 97 Resp 22 20 B/P (MAP) 94/41 (58) 93/39 (57) Pulse Ox 96 94 O2 Delivery Room Air Room Air Room Air 03/07/20 03/07/20 03/07/20 03/07/20 06:00 07:00 07:00 07:02 Pulse 98 94 95 Resp 25 35 B/P (MAP) 87/39 (55) 100/47 (64) Pulse Ox 94 97 100 O2 Delivery Room Air Room Air Room Air 03/07/20 03/07/20 03/07/20 03/07/20 08:00 08:00 09:00 10:00 Pulse 101 93 96 Resp 30 B/P (MAP) 108/46 (66) 107/43 (64) 107/42 (63) Pulse Ox 97 O2 Delivery Room Air Room Air Room Air Room Air 03/07/20 03/07/20 03/07/20 03/07/20 11:00 12:00 13:00 13:00 Pulse 92 92 96 93 B/P (MAP) 113/43 (66) 114/46 (68) 119/49 (72) Pulse Ox 91 98 100 O2 Delivery Room Air Room Air Room Air 03/07/20 03/07/20 14:00 15:00 Pulse 96 93 Resp 28 B/P (MAP) 108/40 (62) 128/47 (74) Pulse Ox 98 98 O2 Delivery Room Air Room Air 03/07/20 00:00 Intake Total 750 ml Output Total 1325 ml Balance -575 ml Constitutional: other (extubated, appropriately responsive) Respiratory: No accessory muscle use; other (good bilat air entry) Cardiovascular: regular rate-rhythm, S1 and S2, systolic murmur (faint AURA at card base) Gastrointestional: other (post surgical abdomen; we did not attempt palpation; absent bs) Extremities: No clubbing, No cyanosis, No significant edema Neurologic/Psychiatric: other (seems to able to move all limbs equally) Skin: No rash on exposed areas, No ulcerations on exposed areas Results/Procedures: Labs Laboratory Tests 03/06/20 17:52: Glucometer 152H 03/07/20 02:16: White Blood Count 15.7H, Red Blood Count 3.69L, Hemoglobin 8.9L, Hematocrit 26L, Mean Corpuscular Volume 71L, Mean Corpuscular Hemoglobin 24L, Mean Corpuscular Hemoglobin Concent 34, Red Cell Distribution Width 23.1H, Platelet Count 319, Mean Platelet Volume 10.5H, Neutrophils (%) (Auto) 80H, Lymphocytes (%) (Auto) 5L, Monocytes (%) (Auto) 15H, Eosinophils (%) (Auto) 1, Basophils (%) (Auto) 0, Neutrophils # (Auto) 12.6H, Lymphocytes # (Auto) 0.8L, Monocytes # (Auto) 2.3H, Eosinophils # (Auto) 0.1, Basophils # (Auto) 0.0, Sodium Level 142, Potassium Level 3.7, Chloride Level 113H, Carbon Dioxide Level 18L, Anion Gap 11, Blood Urea Nitrogen 40H, Creatinine 0.98, Estimat Glomerular Filtration Rate 59, BUN/Creatinine Ratio 41, Glucose Level 164H, Calcium Level 7.0L, Phosphorus Level 3.0, Magnesium Level 2.3 03/07/20 06:25: Urine Color BROWNH, Urine Clarity CLOUDY, Urine pH 5.0, Urine Specific [place] 1.020, Urine Protein 1+H, Urine Glucose (UA) NEGATIVE, Urine Ketones TRACEH, Urine Nitrite NEGATIVE, Urine Bilirubin 1+H, Urine Urobilinogen 1.0, Urine Leukocyte Esterase TRACEH, Urine RBC (Auto) NEGATIVE, Urine RBC NONE, Urine WBC 2-5, Urine Squamous Epithelial Cells 5-10, Urine Crystals PRESENTH, Urine Amorphous Sediment FEW CRISTOBAL URATESH, Urine Bacteria NEGATIVE, Urine Casts NONE, Urine Mucus SMALLH, Urine Culture Indicated NO Microbiology 03/05/20 Blood Culture - Preliminary, Resulted No growth 03/04/20 MRSA Screen - Final, Complete MRSA not isolated Laboratory Tests 03/06/20 03:03 03/07/20 02:16 A/P: Assessment: Day 3 post colectomy for intestinal obstruction Hypotension post surgery, improved Abnormal ECG, but no evidence of ac MA CAD, [facility]. Last card cath on 03/05/20: patent stents in the mid left circumflex and the mid right coronary arteries. There is moderate diffuse disease of all coronary arteries. There is moderately severe diffuse disease of the distal left anterior descending. A small caliber obtuse marginal has 70% to 80% ostial stenosis. Normal left ventricular end- diastolic pressure. Echo of 03/05/20: LVEF 60-65%, mild to mod TR, RVSP 35-40 mmHg, mild dilatation of LA EMIGDIO 2, improved Plan: * Continue DAPT because of recent coronary stenting * Monitor and correct labs * I reviewed her CV issues and her CV w/u during this hospitalization with her VI KO MD FACP FAC CCDS Mar 07, 2020 15:29
[2020-03-08] VITALS (15 sets, daily range): BP systolic 86–120; BP diastolic 30–80
[2020-03-08] MEDS: ENOXAPARIN 40 MG/0.4 ML (LOVENOX) SYR SC SCH (01:06)
[2020-03-08] MEDS: metroNIDAZOLE 500MG/100ML IVPB 100 ML IV SCH ×3 (01:06→17:08)
[2020-03-08] MEDS: LACTATED RINGERS 1,000 ML IV SCH ×3 (01:07→15:49)
[2020-03-08 03:38] LABS: CHLORIDE 111 MMOL/L (98-107); POTASSIUM 3.2 MMOL/L (3.6-5.0); SODIUM 138 MMOL/L (135-145)
[2020-03-08 03:39] LABS: CALCIUM 6.5 MG/DL (8.5-10.1)
[2020-03-08 03:40] LABS: GLUCOSE 103 MG/DL (70-105)
[2020-03-08 03:42] LABS: CARBON DIOXIDE 18 MMOL/L (21-32)
[2020-03-08 03:44] LABS: GFR ESTIMATED > 60; PHOSPHORUS 1.8 MG/DL (2.3-4.7)
[2020-03-08 03:45] LABS: BUN/CREATININE RATIO 43
[2020-03-08 03:46] LABS: MAGNESIUM 1.9 MG/DL (1.6-2.4)
[2020-03-08] MEDS: NOREPINEPHRINE 4 MG/250 ML 250 ML IV SCH (03:47)
[2020-03-08] MEDS: cefTRIAXone FOR IV USE 1,000 MG in WATER (STERILE) FOR INJECTION 10 ML IV SCH (03:54)
[2020-03-08 04:15] LABS: BASOPHILS % (AUTO) 0 % (0-10); EOSINOPHILS # (AUTO) 0.1 10^3/uL (0.0-0.3); EOSINOPHILS % (AUTO) 1 % (0-10); HEMATOCRIT 21 % (35-52); HEMOGLOBIN 7.1 G/DL (11.5-16.0); LYMPHOCYTES # (AUTO) 0.9 X 10^3 (1.0-4.0); LYMPHOCYTES % (AUTO) 7 % (12-44); MEAN CORPUSCULAR HEMOGLOBIN 24 PG (25-34); MEAN CORPUSCULAR HGB CONC 34 G/DL (32-36); MEAN CORPUSCULAR VOLUME 71 FL (80-99); MEAN PLATELET VOLUME 9.2 FL (7.4-10.4); MONOCYTES # (AUTO) 1.8 X 10^3 (0.0-1.0); MONOCYTES % (AUTO) 13 % (0-12); NEUTROPHILS # (AUTO) 10.7 X 10^3 (1.8-7.8); NEUTROPHILS % (AUTO) 79 % (42-75); PLATELET COUNT 240 10^3/uL (130-400); RED CELL DISTRIBUTION WIDTH 22.5 % (10.0-14.5); WHITE BLOOD COUNT 13.6 10^3/uL (4.3-11.0)
[2020-03-08] MEDS ORDERED: POTASSIUM PHOSPHATE INJ 30 MM in NS (IVPB) 250 ML IV ONE (05:15)
[2020-03-08] MEDS: MAGNESIUM 1 GM/100 ML IVPB 100 ML IV SCH (05:41)
--- NOTE | 2020-03-08 05:53 | Progress Note - Surgery ---
Subjective Time Seen by a Provider: 04:53 Subjective/Events-last exam Pt seen and examined, states she is feeling ok and did ambulate. Nurse states BP on art-line dropped so pt was restarted on Levophed. Review of Systems General: Fatigue, Malaise Pulmonary: No Dyspnea, No Cough Cardiovascular: No: Chest Pain, Palpitations Gastrointestinal: Abdominal Pain unable to assess, pt on vent Objective Exam Vital Signs Date Time Temp Pulse Resp B/P (MAP) Pulse Ox O2 Delivery O2 Flow Rate FiO2 03/08/20 05:00 89 23 112/46 (68) 98 Room Air 03/08/20 04:00 Room Air 03/08/20 04:00 91 24 112/46 (68) 98 Room Air 03/08/20 03:58 36.4 03/08/20 03:47 128/53 03/08/20 03:00 98 25 97/30 (52) 97 Room Air 03/08/20 02:00 96 23 105/33 (57) 97 Room Air 03/08/20 01:00 99 03/08/20 01:00 99 21 102/37 (58) 96 Room Air 03/08/20 00:00 98 26 100/34 (56) 95 Room Air 03/08/20 00:00 Room Air 03/08/20 00:00 35.6 03/07/20 23:00 100 24 102/37 (58) 97 Room Air 03/07/20 22:00 101 23 109/43 (65) 96 Room Air 03/07/20 21:00 101 28 117/46 (69) 97 Room Air 03/07/20 20:21 97 Room Air 03/07/20 20:00 96 28 126/52 (76) 97 Room Air 03/07/20 20:00 37.2 03/07/20 20:00 Room Air 03/07/20 19:00 99 03/07/20 19:00 97 26 134/50 (78) 96 Room Air 03/07/20 18:00 98 16 137/54 (81) 94 Room Air 03/07/20 17:00 98 30 144/55 (84) 94 Room Air 03/07/20 16:00 Room Air 03/07/20 16:00 97 23 124/47 (72) 98 Room Air 03/07/20 16:00 36.8 03/07/20 15:00 93 28 128/47 (74) 98 Room Air 03/07/20 14:00 96 108/40 (62) 98 Room Air 03/07/20 13:00 93 03/07/20 13:00 96 119/49 (72) 100 Room Air 03/07/20 12:00 Room Air 03/07/20 12:00 92 114/46 (68) 98 Room Air 03/07/20 11:00 92 113/43 (66) 91 Room Air 03/07/20 10:00 96 107/42 (63) 97 Room Air 03/07/20 09:00 93 107/43 (64) Room Air 03/07/20 08:00 101 30 108/46 (66) Room Air 03/07/20 08:00 Room Air 03/07/20 07:02 100 Room Air 03/07/20 07:00 95 03/07/20 07:00 94 35 100/47 (64) 97 Room Air 03/07/20 06:00 98 25 87/39 (55) 94 Room Air I & O 03/08/20 07:00 Intake Total 3950 ml Output Total 4100 ml Balance -150 ml Capillary Refill : Less Than 3 Seconds General Appearance: No Apparent Distress, Chronically ill HEENT: Moist Mucous Membranes; No Scleral Icterus (L), No Scleral Icterus (R) Respiratory: Lungs Clear, Normal Breath Sounds Cardiovascular: Regular Rate, Rhythm, No Murmur Gastrointestinal: soft, other (inicision is intact, with dried blood. Ileostomy has large amount of output) Skin: Normal Color, Warm/Dry Results Lab Laboratory Tests 03/07/20 06:25: Urine Color BROWNH, Urine Clarity CLOUDY, Urine pH 5.0, Urine Specific [place] 1.020, Urine Protein 1+H, Urine Glucose (UA) NEGATIVE, Urine Ketones TRACEH, Urine Nitrite NEGATIVE, Urine Bilirubin 1+H, Urine Urobilinogen 1.0, Urine Leukocyte Esterase TRACEH, Urine RBC (Auto) NEGATIVE, Urine RBC NONE, Urine WBC 2-5, Urine Squamous Epithelial Cells 5-10, Urine Crystals PRESENTH, Urine Amorphous Sediment FEW CRISTOBAL URATESH, Urine Bacteria NEGATIVE, Urine Casts NONE, Urine Mucus SMALLH, Urine Culture Indicated NO 03/08/20 03:23: White Blood Count 13.6H, Red Blood Count 2.97L, Hemoglobin 7.1#L, Hematocrit 21L , Mean Corpuscular Volume 71L, Mean Corpuscular Hemoglobin 24L, Mean Corpuscular Hemoglobin Concent 34, Red Cell Distribution Width 22.5H, Platelet Count 240, Mean Platelet Volume 9.2, Neutrophils (%) (Auto) 79H, Lymphocytes (%) (Auto) 7L, Monocytes (%) (Auto) 13H, Eosinophils (%) (Auto) 1, Basophils (%) (Auto) 0, Neutrophils # (Auto) 10.7H, Lymphocytes # (Auto) 0.9L, Monocytes # (Auto) 1.8H, Eosinophils # (Auto) 0.1, Basophils # (Auto) 0.0, Sodium Level 138, Potassium Level 3.2L, Chloride Level 111H, Carbon Dioxide Level 18L, Anion Gap 9, Blood Urea Nitrogen 34H, Creatinine 0.80, Estimat Glomerular Filtration Rate > 60, BUN/Creatinine Ratio 43, Glucose Level 103, Calcium Level 6.5L, Phosphorus Level 1.8L, Magnesium Level 1.9 Microbiology 03/05/20 Blood Culture - Preliminary, Resulted No growth 03/04/20 MRSA Screen - Final, Complete MRSA not isolated Assessment/Plan Assessment/Plan Assessment/Plan Anemia - probably dilutional and because of blood draws, will monitor and hold Lovenox. Pt is ambulating which will cover her for VTE. S/P Subtotal Colectomy with End Ileostomy creation - secondary to Ischemic bowel Sigmoid Volvulus - causing Large Bowel Obstruction Hyponatremia - resolved CAD - hx of [place] with stent placement 4 months ago EMIGDIO - improved slightly UTI - repeat UA looks ok Clears and increase diet as tolerated, probably will D/C NGT today. RT to help with IS. Continue IV fluids and pain meds as needed. Up to chair and start to ambulate as tolerated. Monitor labs. Clinical Quality Measures DVT/VTE Risk/Contraindication: Risk Factor Score Per Nursin RFS Level Per Nursing on Admit: 4+=Very High SHEILA DE OLIVEIRA DO Mar 08, 2020 05:53
[2020-03-08] MEDS: KCL 20 MEQ TAB (K-DUR) PO SCH (06:31)
--- NOTE | 2020-03-08 08:04 | Diagnostic Imaging Report ---
Indication: Dyspnea. Follow-up sigmoid volvulus. Comparison: 03/07/2020. 03/06/2020. Discussion: Postoperative pneumoperitoneum is again noted under the right hemidiaphragm. Low lung volumes. Mild cardiomegaly stable. No consolidation, pleural fluid, or pneumothorax. Enteric tube is stable. Right IJ central venous catheter stable. Impression: 1. Stable chest including postoperative pneumoperitoneum. Dictated by: Dictated on workstation # [id number]
[2020-03-08] MEDS: CLOPIDOGREL 75 MG (PLAVIX) TABLET PO SCH (08:43)
[2020-03-08] MEDS: PANTOPRAZOLE 40 MG (PROTONIX) VIAL IVP SCH (08:43)
[2020-03-08] MEDS: ASPIRIN 81 MG CHEW (CHILDREN'S ASA) PO SCH (08:43)
[2020-03-08] MEDS: RT-ALBUTEROL SULF 2.5 MG/3 ML PRE-MIX VIAL INH SCH ×2 (08:44→20:15)
--- NOTE | 2020-03-08 12:30 | NUR ---
SBAR report given to Ofelia MODI
--- NOTE | 2020-03-08 12:30 | NUR ---
This RN took over patient care at this time. PT alert and orientated. verbalizes no problems at this time
--- NOTE | 2020-03-08 13:07 | Progress Note - Cardiology ---
Cardiology SOAP Progress Note Subjective: No cp or palp or syncope Gen weakness Gets tired with mild activity Does not report shortness of breath No focal weakness Objective: I&O/Vital Signs 03/08/20 03/08/20 03/08/20 03/08/20 02:00 03:00 03:47 03:58 Temp 36.4 Pulse 96 98 Resp 23 25 B/P (MAP) 105/33 (57) 97/30 (52) 128/53 Pulse Ox 97 97 O2 Delivery Room Air Room Air 03/08/20 03/08/20 03/08/20 03/08/20 04:00 04:00 05:00 06:00 Pulse 91 89 93 Resp 24 23 23 B/P (MAP) 112/46 (68) 112/46 (68) 120/51 (74) Pulse Ox 98 98 98 O2 Delivery Room Air Room Air Room Air Room Air 03/08/20 03/08/20 03/08/20 03/08/20 06:40 07:00 08:00 08:45 Pulse 92 93 B/P (MAP) 116/70 (85) Pulse Ox 94 97 O2 Delivery Room Air Room Air Room Air 03/08/20 00:00 Intake Total 2750 ml Output Total 2650 ml Balance 100 ml Constitutional: other (extubated, appropriately responsive) Respiratory: No accessory muscle use; other (good bilat air entry) Cardiovascular: regular rate-rhythm, S1 and S2, systolic murmur (faint AURA at card base) Gastrointestional: other (post surgical abdomen; we did not attempt palpation; absent bs) Extremities: No clubbing, No cyanosis, No significant edema Neurologic/Psychiatric: other (seems to able to move all limbs equally) Skin: No rash on exposed areas, No ulcerations on exposed areas Results/Procedures: Labs Laboratory Tests 03/08/20 03:23: White Blood Count 13.6H, Red Blood Count 2.97L, Hemoglobin 7.1#L, Hematocrit 21L , Mean Corpuscular Volume 71L, Mean Corpuscular Hemoglobin 24L, Mean Corpuscular Hemoglobin Concent 34, Red Cell Distribution Width 22.5H, Platelet Count 240, Mean Platelet Volume 9.2, Neutrophils (%) (Auto) 79H, Lymphocytes (%) (Auto) 7L, Monocytes (%) (Auto) 13H, Eosinophils (%) (Auto) 1, Basophils (%) (Auto) 0, Neutrophils # (Auto) 10.7H, Lymphocytes # (Auto) 0.9L, Monocytes # (Auto) 1.8H, Eosinophils # (Auto) 0.1, Basophils # (Auto) 0.0, Sodium Level 138, Potassium Level 3.2L, Chloride Level 111H, Carbon Dioxide Level 18L, Anion Gap 9, Blood Urea Nitrogen 34H, Creatinine 0.80, Estimat Glomerular Filtration Rate > 60, BUN/Creatinine Ratio 43, Glucose Level 103, Calcium Level 6.5L, Phosphorus Level 1.8L, Magnesium Level 1.9 Microbiology 03/05/20 Blood Culture - Preliminary, Resulted No growth 03/04/20 MRSA Screen - Final, Complete MRSA not isolated Laboratory Tests 03/07/20 02:16 03/08/20 03:23 A/P: Assessment: Day 3 post colectomy for intestinal obstruction Marked post-op anemia, managed by the Surgical and Hospitalist Services Hypokalemia on 03/08/20, being replenished Abnormal ECG, but no evidence of ac [place] CAD, h/o cor stenting at [facility] in Oct 2019. Last card cath on 03/05/20: patent stents in the mid left circumflex and the mid right coronary arteries. There is moderate diffuse disease of all coronary arteries. There is moderately severe diffuse disease of the distal left anterior descending. A small caliber obtuse marginal has 70% to 80% ostial stenosis. Normal left ventricular end- diastolic pressure. Echo of 03/05/20: LVEF 60-65%, mild to mod TR, RVSP 35-40 mmHg, mild dilatation of LA Post-op hypotension and EMIGDIO 2, resolved Plan: * Continue DAPT because of recent coronary stenting * Replenish K * Monitor labs VI KO MD FACP [facility] Mar 08, 2020 13:07
--- NOTE | 2020-03-08 18:40 | NUR ---
Report to this RN that Pt HR was in the high 120s for the past 30 mins. this RN checked BP and HR which was BP 80/56 HR 126 at this time. pt stated she was asymptomatic but upon ambulation from chair to bed with this RN and MUSIC COMPOSER Pt felt weak. Dr Ji notified about Pt status. no concern for BP and HR at this time but this RN received orders for 2units of blood
[2020-03-08] MEDS ORDERED: NS IV 500 ML 500 ML IV SCH (18:45)
[2020-03-08] MEDS ORDERED: NS IV 500 ML 500 ML IV ONE (18:45)
[2020-03-09] VITALS (11 sets, daily range): BP systolic 94–120; BP diastolic 61–75
[2020-03-09 01:17] LABS: HEMOGLOBIN 6.7 G/DL (11.5-16.0)
--- NOTE | 2020-03-09 01:20 | NUR ---
2 UNITS OF BLOOD ORDERED FOR PT. THIS NURSE WAS TOLD BY LAB THAT DUE TO SHORTAGE OF O POSITIVE BLOOD, THAT 1 HOUR POST BLOOD H&H NEEDS TO BE DRAWN AFTER 1ST UNIT TO DETERMINE IF 2ND UNIT IS NEEDED. THIS NURSE WAS NOTIFIED OF CRITICAL HBG OF 6.7 AFTER 1ST UNIT, SECOND UNIT OF BLOOD STARTED ON PT. WILL CONTINUE TO MONITOR PT HBG LEVELS AFTER 2ND UNIT OF BLOOD, WILL NOTIFY DR IF HGB REMAIN AT CRITICAL LEVEL.
[2020-03-09] MEDS: metroNIDAZOLE 500MG/100ML IVPB 100 ML IV SCH ×3 (03:24→17:26)
[2020-03-09] MEDS: LACTATED RINGERS 1,000 ML IV SCH ×4 (03:32→21:14)
[2020-03-09] MEDS ORDERED: cefTRIAXone 1,000 MG IV (ROCEPHIN) VIAL ONE (03:56)
[2020-03-09] MEDS ORDERED: WATER (STERILE) FOR INJECTION 10 ML ONE (03:56)
[2020-03-09] MEDS: cefTRIAXone FOR IV USE 1,000 MG in WATER (STERILE) FOR INJECTION 10 ML IV SCH (04:13)
[2020-03-09 06:08] LABS: BASOPHILS % (AUTO) 0 % (0-10); EOSINOPHILS # (AUTO) 0.1 10^3/uL (0.0-0.3); EOSINOPHILS % (AUTO) 1 % (0-10); HEMATOCRIT 23 % (35-52); HEMOGLOBIN 7.7 G/DL (11.5-16.0); LYMPHOCYTES % (AUTO) 6 % (12-44); MEAN CORPUSCULAR HEMOGLOBIN 25 PG (25-34); MEAN CORPUSCULAR HGB CONC 34 G/DL (32-36); MEAN CORPUSCULAR VOLUME 75 FL (80-99); MEAN PLATELET VOLUME 9.5 FL (7.4-10.4); MONOCYTES % (AUTO) 12 % (0-12); NEUTROPHILS # (AUTO) 13.6 X 10^3 (1.8-7.8); NEUTROPHILS % (AUTO) 81 % (42-75); PLATELET COUNT 195 10^3/uL (130-400); RED CELL DISTRIBUTION WIDTH 20.8 % (10.0-14.5); WHITE BLOOD COUNT 16.7 10^3/uL (4.3-11.0)
[2020-03-09 06:18] LABS: CHLORIDE 110 MMOL/L (98-107); POTASSIUM 3.7 MMOL/L (3.6-5.0); SODIUM 138 MMOL/L (135-145)
[2020-03-09 06:19] LABS: CALCIUM 6.4 MG/DL (8.5-10.1); GLUCOSE 83 MG/DL (70-105)
[2020-03-09 06:21] LABS: CARBON DIOXIDE 19 MMOL/L (21-32)
[2020-03-09 06:23] LABS: CREATININE SERUM 0.75 MG/DL (0.60-1.30); GFR ESTIMATED > 60
[2020-03-09 06:24] LABS: BUN/CREATININE RATIO 37
[2020-03-09] MEDS: MAGNESIUM 1 GM/100 ML IVPB 100 ML IV SCH (06:41)
[2020-03-09] MEDS: KCL 20 MEQ TAB (K-DUR) PO SCH (06:41)
[2020-03-09] MEDS: RT-ALBUTEROL SULF 2.5 MG/3 ML PRE-MIX VIAL INH SCH (06:57)
[2020-03-09] MEDS: PANTOPRAZOLE 40 MG (PROTONIX) VIAL IVP SCH (08:30)
[2020-03-09] MEDS: CLOPIDOGREL 75 MG (PLAVIX) TABLET PO SCH (08:31)
[2020-03-09] MEDS: ASPIRIN 81 MG CHEW (CHILDREN'S ASA) PO SCH (08:31)
--- NOTE | 2020-03-09 10:41 | Progress Note - Surgery ---
Subjective Time Seen by a Provider: 10:28 Subjective/Events-last exam Pt seen and examined, denies abdominal pain. Main complaint is of feeling weak and wants NGT out. Tolerating clears. Review of Systems General: Fatigue, Malaise Pulmonary: No Dyspnea, No Cough Cardiovascular: No: Chest Pain, Palpitations Gastrointestinal: No: Nausea, Vomiting unable to assess, pt on vent Objective Exam Vital Signs Date Time Temp Pulse Resp B/P (MAP) Pulse Ox O2 Delivery O2 Flow Rate FiO2 03/09/20 08:00 98 Room Air 2.00 03/09/20 08:00 36.6 100 18 106/66 (79) 98 Room Air 03/09/20 06:57 96 Room Air 03/09/20 06:40 99 03/09/20 04:11 36.7 100 24 102/67 99 Room Air 03/09/20 04:00 36.7 100 26 102/67 (79) 99 Room Air 03/09/20 01:59 36.6 105 26 94/61 98 Room Air 03/09/20 01:44 36.7 111 26 109/72 97 Room Air 03/09/20 01:00 106 03/09/20 00:04 36.4 110 28 97/61 (73) 96 Room Air 03/08/20 23:57 36.8 110 28 103/67 96 Room Air 03/08/20 21:30 36.7 117 28 92/64 98 Room Air 03/08/20 21:13 36.6 118 30 86/56 98 Room Air 03/08/20 20:16 100 Room Air 03/08/20 20:05 Room Air 03/08/20 20:05 36.6 125 30 90/65 (73) 98 Room Air 03/08/20 19:00 118 03/08/20 17:35 36.6 116 18 102/64 (77) 97 Room Air 03/08/20 15:33 36.8 90 21 118/80 (93) 98 Room Air 03/08/20 12:36 93 03/08/20 12:00 36.4 93 18 119/72 (88) 97 Room Air 03/08/20 12:00 Room Air I & O 03/09/20 07:00 Intake Total 1210 ml Output Total 2825 ml Balance -1615 ml Capillary Refill : Less Than 3 Seconds General Appearance: No Apparent Distress, Chronically ill HEENT: Moist Mucous Membranes; No Scleral Icterus (L), No Scleral Icterus (R) Respiratory: Lungs Clear, Normal Breath Sounds Cardiovascular: Regular Rate, Rhythm, No Murmur Gastrointestinal: soft, other (inicision is intact. Ileostomy has large amount of output) Skin: Pallor Results Lab Laboratory Tests 03/09/20 01:05: Hemoglobin 6.7*L, Hematocrit 20*L 03/09/20 06:00: Hemoglobin 7.7L, Hematocrit 23L, White Blood Count 16.7H, Red Blood Count 3.03L, Mean Corpuscular Volume 75L, Mean Corpuscular Hemoglobin 25, Mean Corpuscular Hemoglobin Concent 34, Red Cell Distribution Width 20.8H, Platelet Count 195, Mean Platelet Volume 9.5, Neutrophils (%) (Auto) 81H, Lymphocytes (%) (Auto) 6L, Monocytes (%) (Auto) 12, Eosinophils (%) (Auto) 1, Basophils (%) (Auto) 0, Neutrophils # (Auto) 13.6H, Lymphocytes # (Auto) 1.0, Monocytes # (Auto) 2.0H, Eosinophils # (Auto) 0.1, Basophils # (Auto) 0.0, Sodium Level 138, Potassium Level 3.7, Chloride Level 110H, Carbon Dioxide Level 19L, Anion Gap 9, Blood Urea Nitrogen 28H, Creatinine 0.75, Estimat Glomerular Filtration Rate > 60, BUN/Creatinine Ratio 37, Glucose Level 83, Calcium Level 6.4L Microbiology 03/05/20 Blood Culture - Preliminary, Resulted No growth 03/04/20 MRSA Screen - Final, Complete MRSA not isolated Assessment/Plan Assessment/Plan Assessment/Plan Anemia - S/P transfuse 2 units PRBC, Hg only came up to 7.7 S/P Subtotal Colectomy 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 Will give pt some Lasix to see if we can help her edema. Decrease IV fluids but will need to make sure she drinks enough because she is having copious amount of output from ileostomy. Will leave arellano in one more day to accurately monitor I&O's with Lasix. Encourage ambulation and IS use. Clinical Quality Measures DVT/VTE Risk/Contraindication: Risk Factor Score Per Nursin RFS Level Per Nursing on Admit: 4+=Very High SHEILA DE OLIVEIRA DO Mar 09, 2020 10:41
[2020-03-09] MEDS ORDERED: FUROSEMIDE 40 MG/4 ML INJ (LASIX) IVP NR ×2 (10:45→11:00)
--- NOTE | 2020-03-09 10:45 | Progress Note - Cardiology ---
Cardiology SOAP Progress Note Subjective: Sitting up in a recliner at the bedside. C/O bilat LE swelling which she feels is worse and uncomfortable. No c/o CP or palpitations. Received blood transfusion this morning. Objective: I&O/Vital Signs 03/09/20 03/10/20 03/10/20 03/10/20 23:50 01:00 03:50 06:48 Temp 37.2 37.0 Pulse 106 109 105 Resp 16 16 B/P (MAP) 119/70 (86) 117/74 (88) Pulse Ox 97 94 95 O2 Delivery Room Air Room Air Room Air 03/10/20 03/10/20 07:00 07:28 Temp 36.6 Pulse 106 108 Resp 18 B/P (MAP) 136/83 (100) Pulse Ox 97 O2 Delivery Room Air 03/10/20 00:00 Intake Total 2560 ml Output Total 3100 ml Balance -540 ml Constitutional: other (responds appropriately) Respiratory: No accessory muscle use; other (good bilat air entry) Cardiovascular: regular rate-rhythm, S1 and S2, systolic murmur (faint AURA at card base) Gastrointestional: other (post surgical abdomen; we did not attempt palpation; absent bs; NG tube in place) Extremities: No clubbing, No cyanosis; significant edema (bilat pitting edema) Neurologic/Psychiatric: other (able to move all limbs equally) Skin: No rash on exposed areas, No ulcerations on exposed areas Results/Procedures: Labs Laboratory Tests 03/09/20 12:14: Lab Scanned Report Transfusion Reaction Form 03/10/20 04:00: White Blood Count 13.2H, Red Blood Count 2.93L, Hemoglobin 7.5L, Hematocrit 22L, Mean Corpuscular Volume 75L, Mean Corpuscular Hemoglobin 26, Mean Corpuscular Hemoglobin Concent 34, Red Cell Distribution Width 20.1H, Platelet Count 214, Mean Platelet Volume 9.5, Neutrophils (%) (Auto) 84H, Lymphocytes (%) (Auto) 6L, Monocytes (%) (Auto) 9, Eosinophils (%) (Auto) 1, Basophils (%) (Auto) 0, Neutr ophils # (Auto) 11.1H, Lymphocytes # (Auto) 0.7L, Monocytes # (Auto) 1.2H, E osinophils # (Auto) 0.2, Basophils # (Auto) 0.0, Sodium Level 134L, Potassium Level 3.3L, Chloride Level 107, Carbon Dioxide Level 20L, Anion Gap 7, Blood Urea Nitrogen 19H, Creatinine 0.61, Estimat Glomerular Filtration Rate > 60, BUN/Creatinine Ratio 31, Glucose Level 99, Calcium Level 6.3L Microbiology 03/05/20 Blood Culture - Preliminary, Resulted No growth 03/04/20 MRSA Screen - Final, Complete MRSA not isolated A/P: Assessment: Day 4 post colectomy for intestinal obstruction Marked post-op anemia, managed by the Surgical and Hospitalist Services - received 2 units of 03-09-2020 Hypokalemia on 03/08/20, being replenished Abnormal ECG, but no evidence of ac [place] CAD, h/o cor stenting at [facility] in Oct 2019. Last card cath on 03/05/20: patent stents in the mid left circumflex and the mid right coronary arteries. There is moderate diffuse disease of all coronary arteries. There is moderately severe diffuse disease of the distal left anterior descending. A small caliber obtuse marginal has 70% to 80% ostial stenosis. Normal left ventricular end-diastolic pressure. Echo of 03/05/20: LVEF 60-65%, mild to mod TR, RVSP 35-40 mmHg, mild dilatation of LA Post-op hypotension and EMIGDIO 2, resolved Plan: * Continue DAPT because of recent coronary stenting * Management of anemia per medical/surgical services - received 2 units PRBC today * Received IV Lasix this morning * Monitor labs BENJI WILLOUGHBY Mar 09, 2020 10:45
--- NOTE | 2020-03-09 11:51 | NUR ---
CM/SS: Attempted to visit with pt today to check on her status and plan for discharge. Pt is sitting in he recliner and does not seem to want to visit, and is a little fretful. This worker will follow up at at later time.
--- NOTE | 2020-03-09 12:00 | Physical Therapy Daily Note ---
PT Daily Note-Current Subjective Pt up in recliner upon arrival. NG tube just taken out by RN. Pt agrees to therapy tx; seated ex only. Pain Location: No Pain Reported Mental Status Patient Orientation: Person, Place, Time, Situation Attachments: Monson Catheter, IV Transfers SCALE: Activities may be completed with or without assistive devices. 6-Jzspobzskh-uxnaves completes the activity by him/herself with no assistance from a helper. 5-Set-up or Clean-up Assistance-helper sets up or cleans up; patient completes activity. Irving assists only prior to or following the activity. 4-Supervision or Touching Assistance-helper provides verbal cues and/or touching/steadying and/or contact guard assistance as patient completes activity. Assistance may be provided throughout the activity or intermittently. 3-Partial/Moderate Assistance-helper does LESS THAN HALF the effort. Irving lifts, holds or supports trunk or limbs, but provides less than half the effort. 2-Substantial/Maximal Assistance-helper does MORE THAN HALF the effort. Irving lifts or holds trunk or limbs and provides more than half the effort. 2-Upecqgtys-ocsfib does ALL the effort. Patient does none of the effort to complete the activity. Or, the assistance of 2 or more helpers is required for the patient to complete the activity. If activity was not attempted, code reason: 7-Patient Refused. 9-Not Applicable-not attempted and the patient did not perform the activity before the current illness, exacerbation or injury. 10-Not Attempted due to Environmental Limitations-(lack of equipment, weather restraints, etc.). 88-Not Attempted due to Medical Conditions or Safety Concerns. Exercises Seated Therapy Exercises: Ankle pumps, Long arc quads, Hip flexion, Kicking activity, Hip abd/add Seated Reps: 15 Treatments Pt completes seated ex at edge of recliner. Pt works on core strengthening and use UE to help scoot self back into recliner at end of tx. Pt in recliner w/ feet up, call light and bedside table w/ in reach and all needs met at end of tx. Assessment Current Status: Fair Progress Pt fatigued easily during tx. PT Classics Teacher Goals Classics Teacher Goals PT [facility] Goals Time Frame: Mar 21, 2020 Roll Left & Right (QC): 6 Sit to Lying (QC): 6 Lying-Sitting on Side/Bed(QC): 6 Sit to Stand (QC): 6 Chair/Mtq-sx-Ovbyh Xfer(QC): 6 Toilet Transfer (QC): 6 Car Transfer (QC): 6 Does the Patient Walk: Yes Walk 10 feet (QC): 6 Walk 50ft with 2 Turns (QC): 6 Walk 150 ft (QC): 6 Walking 10ft on Uneven Surface: 6 PT Plan Problem List Problem List: Activity Tolerance, Safety, ROM Treatment/Plan Treatment Plan: Continue Plan of Care Treatment Plan: Bed Mobility, Education, Functional Activity Fern, Functional Strength, Gait, Safety, Therapeutic Exercise, Transfers Treatment Duration: Mar 21, 2020 Frequency: 6 times per week Estimated Hrs Per Day: .25 hour per day Patient and/or Family Agrees t: Yes Safety Risks/Education Patient Education: Correct Positioning, Safety Issues Teaching Recipient: Patient Teaching Methods: Discussion Response to Teaching: Verbalize Understanding Time/GCodes Time In: 1120 Time Out: 1137 Total Billed Treatment Time: 17 Total Billed Treatment 1, EX (17mins) JOSE STOLL [employer]OV[employer] RUNNER Mar 09, 2020 12:00
--- NOTE | 2020-03-09 13:24 | Occupational Ther Daily Note ---
OT Current Status-Daily Note Subjective Pt alert, reclining in chair. Pt agrees to therapy. Pt's lunch was beside her and pt stated that she didn't know it was there. Mental Status/Objective Patient Orientation: Person, Place, Time, Situation Attachments: Monson Catheter, IV ADL-Treatment Therapy Code Descriptions/Definitions Functional [place] Measure: 0=Not Assessed/NA 4=Minimal Assistance 1=Total Assistance 5=Supervision or Setup 2=Maximal Assistance 6=Modified [place] 3=Moderate Assistance 7=Complete IndependenceSCALE: Activities may be completed with or without assistive devices. 2-Seqmitqjia-fhibybn completes the activity by him/herself with no assistance from a helper. 5-Set-up or Clean-up Assistance-helper sets up or cleans up; patient completes activity. [place] assists only prior to or following the activity. 4-Supervision or Touching Assistance-helper provides verbal cues and/or touching/steadying and/or contact guard assistance as patient completes activity. Assistance may be provided throughout the activity or intermittently. 3-Partial/Moderate Assistance-helper does LESS THAN HALF the effort. [place] lifts, holds or supports trunk or limbs, but provides less than half the effort. 2-Substantial/Maximal Assistance-helper does MORE THAN HALF the effort. [place] lifts or holds trunk or limbs and provides more than half the effort. 7-Zpchkwufs-pxvvsr does ALL the effort. Patient does none of the effort to comp lete the activity. Or, the assistance of 2 or more helpers is required for the patient to complete the activity. If activity was not attempted, code reason: 7-Patient Refused. 9-Not Applicable-not attempted and the patient did not perform the activity before the current illness, exacerbation or injury. 10-Not Attempted due to Environmental Limitations-(lack of equipment, weather restraints, etc.). 88-Not Attempted due to Medical Conditions or Safety Concerns. Eating (QC): 6 Other Treatment Pt able to pull upper body forward off of seat back using B UE's. Using B UE's, pt able to scoot self back in recliner, minimally. Pt able to complete resistive fine motor tasks with good strength to open small packages and sustain grasp on utensils. After handed a wash cloth, pt washed face and hands. Pt has low HG and has significant decreased activity tolerance. After therapy, pt sitting in recliner eating lunch. Call light/phone in reach. All needs met in room. OT Short Term Goals Short Term Goals Time Frame: Mar 14, 2020 Toileting hygiene: 3 Shower/bathe self: 3 Upper body dressin Lower body dressin OT Senior Marketing Manager Goals Senior Care Goals Time Frame: Mar 21, 2020 Eating (QC): 6 Oral Hygiene (QC): 5 Toileting Hygiene (QC): 5 Shower/Bathe Self (QC): 4 Upper Body Dressing (QC): 5 Lower Body Dressing (QC): 5 On/Off Footwear (QC): 5 Additional Goals: 2-Verbalize Understanding, 3-ImproveStrength/Fern 1=Demonstrate adherence to instructed precautions during ADL tasks. 2=Patient will verbalize/demonstrate understanding of assistive devices/modifications for ADL. 3=Patient will improve strength/tolerance for activity to enable patient to perform ADL's. OT Education/Plan Problem List/Assessment Assessment: Decreased Activ Tolerance, Decreased UE Strength Pt to benefit from skilled OT intervention for ADL training, transfers, stre ngthening, and home safety education to increase level of independence and allow safe discharge. Discharge Recommendations Plan/Recommendations: Continue POC Treatment Plan/Plan of Care Patient would benefit from OT for education, treatment and training to promote independence in ADL's, mobility, safety and/or upper extremity function for ADL's. Plan of Care: ADL Retraining, Functional Mobility, UE Funct Exercise/Act Treatment Duration: Mar 21, 2020 Frequency: 5 times per week Estimated Hrs Per Day: .25 hour per day Rehab Potential: Fair Time/GCodes Start Time: 13:11 Stop Time: 13:27 Total Time Billed (hr/min): 16 Billed Treatment Time 1 visit-FA 1 (16min) LEYDA HOBSON Mar 09, 2020 13:24
--- NOTE | 2020-03-09 13:28 | NUR ---
"RD ASSESSMENT PMHx: HF; hypercholesterolemia; HTN; OH PT INTERACTION: Pt was awake and pleasant during nutrition assessment. Pt states current appetite is okay, and that she is tolerating her current diet order but she is also tired of it. Note avg PO intake 66% x2d, with intake declining over the last day. Pt states trying to follow a low-CHO diet, and has no issues with chewing/swallowing food. Pt states no recent issues with nausea/vomiting/constipation/diarrhea at this time. Note pt has ileostomy, and pt states no issues with output. Note pt not currently on bowel regimen per chart review. Pt states recent wt loss, but unsure of amount/timeframe. Note recent 15# wt loss x4mon, per chart review. ABNORMAL NUTRITION-RELATED LAB VALUES LOW: Ca 6.4 HIGH: Cl 110; BUN 28 Est. kcal needs: 2139-7294 kcal | 20-25 kcal/kg Est. Pro needs: 75-90 g Pro | 1.0-1.2 g Pro/kg PES STATEMENT: Inadequate oral intake (NI-2.1) related to loss of appetite as evidenced by pt interview | avg PO intake 66% x2d INTERVENTION: Continue with current diet order of Clear Liquid diet. Advance diet to Regular diet, when medically able and as tolerated. Add Ensure Clear (vary) to meals TID, for increased kcal intake. Provides 250 kcal and 8 g Pro per serving. Will continue to follow and reassess as pt needs, intake, and status change. MONITOR/EVALUATE: PO Intake; Plan of Care; Hydration Status; Weight Status; Lab Values Camron Rogers, MS, RD, LD"
--- NOTE | 2020-03-09 14:12 | Progress Note - Cardiology ---
Cardiology SOAP Progress Note Subjective: No cp or palp or syncope Appetite has returned No n/v/d Gen weakness No shortness of breath Objective: I&O/Vital Signs 03/09/20 03/09/20 03/09/20 03/09/20 04:00 04:11 06:40 06:57 Temp 36.7 36.7 Pulse 100 100 99 Resp 26 24 B/P (MAP) 102/67 (79) 102/67 Pulse Ox 99 99 96 O2 Delivery Room Air Room Air Room Air 03/09/20 03/09/20 03/09/20 03/09/20 08:00 08:00 12:00 13:00 Temp 36.6 36.5 Pulse 100 102 106 Resp 18 21 B/P (MAP) 106/66 (79) 110/61 (77) Pulse Ox 98 98 98 O2 Delivery Room Air Room Air Room Air O2 Flow Rate 2.00 03/09/20 13:33 Temp 36.5 Pulse 100 Pulse Ox 98 FiO2 21 03/09/20 00:00 Intake Total 700 ml Output Total 2150 ml Balance -1450 ml Constitutional: other (responds appropriately) Respiratory: No accessory muscle use; other (good bilat air entry) Cardiovascular: regular rate-rhythm, S1 and S2, systolic murmur (faint AURA at card base) Gastrointestional: other (post surgical abdomen; we did not attempt palpation; absent bs; NG tube in place) Extremities: No clubbing, No cyanosis; significant edema (bilat pitting edema) Neurologic/Psychiatric: other (able to move all limbs equally) Skin: No rash on exposed areas, No ulcerations on exposed areas Results/Procedures: Labs Laboratory Tests 03/09/20 01:05: Hemoglobin 6.7*L, Hematocrit 20*L 03/09/20 06:00: Hemoglobin 7.7L, Hematocrit 23L, White Blood Count 16.7H, Red Blood Count 3.03L, Mean Corpuscular Volume 75L, Mean Corpuscular Hemoglobin 25, Mean Corpuscular Hemoglobin Concent 34, Red Cell Distribution Width 20.8H, Platelet Count 195, Mean Platelet Volume 9.5, Neutrophils (%) (Auto) 81H, Lymphocytes (%) (Auto) 6L, Monocytes (%) (Auto) 12, Eosinophils (%) (Auto) 1, Basophils (%) (Auto) 0, Neutrophils # (Auto) 13.6H, Lymphocytes # (Auto) 1.0, Monocytes # (Auto) 2.0H, Eosinophils # (Auto) 0.1, Basophils # (Auto) 0.0, Sodium Level 138, Potassium Level 3.7, Chloride Level 110H, Carbon Dioxide Level 19L, Anion Gap 9, Blood Urea Nitrogen 28H, Creatinine 0.75, Estimat Glomerular Filtration Rate > 60, BUN/Creatinine Ratio 37, Glucose Level 83, Calcium Level 6.4L 03/09/20 12:14: Lab Scanned Report Transfusion Reaction Form Microbiology 03/05/20 Blood Culture - Preliminary, Resulted No growth 03/04/20 MRSA Screen - Final, Complete MRSA not isolated Laboratory Tests 03/08/20 03:23 03/09/20 01:05 03/09/20 06:00 A/P: Assessment: S/p colectomy for intestinal obstruction Marked post-op anemia, managed by the Surgical and Hospitalist Services - received 2 units of 03-09-2020 Hypokalemia on 03/08/20, being replenished Abnormal ECG, but no evidence of ac [place] CAD, h/o cor stenting at [facility] in Oct 2019. Last card cath on 03/05/20: patent stents in the mid left circumflex and the mid right coronary arteries. There is moderate diffuse disease of all coronary arteries. There is moderately severe diffuse disease of the distal left anterior descending. A small caliber obtuse marginal has 70% to 80% ostial stenosis. Normal left ventricular end- diastolic pressure. Echo of 03/05/20: LVEF 60-65%, mild to mod TR, RVSP 35-40 mmHg, mild dilatation of LA Post-op hypotension and EMIGDIO 2, resolved Plan: * Continue DAPT because of recent coronary stenting * Management of anemia per medical/surgical services - received 2 units PRBC today * Received IV Lasix this morning * Monitor labs VI KO MD FACP FAC CCDS Mar 09, 2020 14:12
--- NOTE | 2020-03-09 14:43 | NUR ---
wafer and bag changed to ileostomy at this time. patient tolerated well.
[2020-03-09] MEDS: fentaNYL INJECTION 100 MCG/2 ML AMP IVP PRN ×2 (17:24→21:53)
[2020-03-10] MEDS: metroNIDAZOLE 500MG/100ML IVPB 100 ML IV SCH ×2 (02:01→09:28)
[2020-03-10] MEDS: LACTATED RINGERS 1,000 ML IV SCH ×3 (02:55→16:27)
[2020-03-10 03:50] VITALS: BP 117/74
[2020-03-10] MEDS ORDERED: WATER (STERILE) FOR INJECTION 10 ML ONE (03:51)
[2020-03-10] MEDS ORDERED: cefTRIAXone 1,000 MG IV (ROCEPHIN) VIAL ONE (03:51)
[2020-03-10] MEDS: fentaNYL INJECTION 100 MCG/2 ML AMP IVP PRN ×3 (04:09→19:53)
[2020-03-10] MEDS: cefTRIAXone FOR IV USE 1,000 MG in WATER (STERILE) FOR INJECTION 10 ML IV SCH (04:09)
[2020-03-10 04:28] LABS: BASOPHILS % (AUTO) 0 % (0-10); EOSINOPHILS # (AUTO) 0.2 10^3/uL (0.0-0.3); EOSINOPHILS % (AUTO) 1 % (0-10); HEMATOCRIT 22 % (35-52); HEMOGLOBIN 7.5 G/DL (11.5-16.0); LYMPHOCYTES # (AUTO) 0.7 X 10^3 (1.0-4.0); LYMPHOCYTES % (AUTO) 6 % (12-44); MEAN CORPUSCULAR HEMOGLOBIN 26 PG (25-34); MEAN CORPUSCULAR HGB CONC 34 G/DL (32-36); MEAN CORPUSCULAR VOLUME 75 FL (80-99); MEAN PLATELET VOLUME 9.5 FL (7.4-10.4); MONOCYTES # (AUTO) 1.2 X 10^3 (0.0-1.0); MONOCYTES % (AUTO) 9 % (0-12); NEUTROPHILS # (AUTO) 11.1 X 10^3 (1.8-7.8); NEUTROPHILS % (AUTO) 84 % (42-75); PLATELET COUNT 214 10^3/uL (130-400); RED CELL DISTRIBUTION WIDTH 20.1 % (10.0-14.5); WHITE BLOOD COUNT 13.2 10^3/uL (4.3-11.0)
[2020-03-10 04:39] LABS: CHLORIDE 107 MMOL/L (98-107); POTASSIUM 3.3 MMOL/L (3.6-5.0); SODIUM 134 MMOL/L (135-145)
[2020-03-10 04:40] LABS: CALCIUM 6.3 MG/DL (8.5-10.1); GLUCOSE 99 MG/DL (70-105)
[2020-03-10 04:42] LABS: CARBON DIOXIDE 20 MMOL/L (21-32)
[2020-03-10 04:44] LABS: CREATININE SERUM 0.61 MG/DL (0.60-1.30); GFR ESTIMATED > 60
[2020-03-10 04:45] LABS: BUN/CREATININE RATIO 31
[2020-03-10] MEDS: MAGNESIUM 1 GM/100 ML IVPB 100 ML IV SCH (05:01)
[2020-03-10] MEDS: KCL 20 MEQ TAB (K-DUR) PO SCH (06:04)
[2020-03-10] MEDS: RT-ALBUTEROL SULF 2.5 MG/3 ML PRE-MIX VIAL INH PRN ×2 (06:47→18:08)
[2020-03-10 07:28] VITALS: BP 136/83
--- NOTE | 2020-03-10 08:53 | Physical Therapy Daily Note ---
PT Daily Note-Current Subjective Patient in bed pre tx, agrees to PT, has 3-4/10 pain in abdomen. Appearance Patient in recliner post tx with nurse call, phone, tray, legs elevated, on air pad in chair. Mental Status Patient Orientation: Person, Place, Situation Attachments: Colostomy/Ileostomy, Monson Catheter, IV Transfers SCALE: Activities may be completed with or without assistive devices. 9-Fjiqmsniwz-uakotyd completes the activity by him/herself with no assistance from a helper. 5-Set-up or Clean-up Assistance-helper sets up or cleans up; patient completes activity. [place] assists only prior to or following the activity. 4-Supervision or Touching Assistance-helper provides verbal cues and/or touching/steadying and/or contact guard assistance as patient completes activity. Assistance may be provided throughout the activity or intermittently. 3-Partial/Moderate Assistance-helper does LESS THAN HALF the effort. [place] lifts, holds or supports trunk or limbs, but provides less than half the effort. 2-Substantial/Maximal Assistance-helper does MORE THAN HALF the effort. [place] lifts or holds trunk or limbs and provides more than half the effort. 7-Eejcgvxav-vghpir does ALL the effort. Patient does none of the effort to complete the activity. Or, the assistance of 2 or more helpers is required for the patient to complete the activity. If activity was not attempted, code reason: 7-Patient Refused. 9-Not Applicable-not attempted and the patient did not perform the activity before the current illness, exacerbation or injury. 10-Not Attempted due to Environmental Limitations-(lack of equipment, weather restraints, etc.). 88-Not Attempted due to Medical Conditions or Safety Concerns. Roll Left & Right (QC): 3 Lying to Sitting/Side of Bed(Q: 3 Sit to Stand (QC): 4 Chair/Dex-ho-Uhhtq Xfer(QC): 4 Mod assist for supine to sit, cues for positioning. Patient very anxious and crying when sitting on the side of the bed, she says she is afraid of walking to the chair. Gait Training Distance: 5' Gait Persons Needed: 1 Gait Assistive Device: FWW Patient ambulated 5' to recliner using a rolling walker and CGA, slightly unsteady at the beginning but recovering quickly. Exercises Supine Ex: Ankle pumps, Quad Set, Glut sets Supine Reps: 15 (Performed in recliner with legs elevated.) Treatments bed mobility and transfers, ambulation, LE exercise Assessment Current Status: Fair Progress Improving general mobility, very anxious/afraid. PT Head Athletic Trainer Goals Head Athletic Trainer Goals PT Head Athletic Trainer Goals Time Frame: Mar 21, 2020 Roll Left & Right (QC): 6 Sit to Lying (QC): 6 Lying-Sitting on Side/Bed(QC): 6 Sit to Stand (QC): 6 Chair/Ziq-ux-Fwy[place] Xfer(QC): 6 Toilet Transfer (QC): 6 Car Transfer (QC): 6 Does the Patient Walk: Yes Walk 10 feet (QC): 6 Walk 50ft with 2 Turns (QC): 6 Walk 150 ft (QC): 6 Walking 10ft on Uneven Surface: 6 PT Plan Problem List Problem List: Activity Tolerance, Functional Strength, Safety, Balance, Gait, Transfer, Bed Mobility, ROM Treatment/Plan Treatment Plan: Continue Plan of Care Treatment Plan: Bed Mobility, Education, Functional Activity Fern, Functional Strength, Gait, Safety, Therapeutic Exercise, Transfers Treatment Duration: Mar 21, 2020 Frequency: 6 times per week Estimated Hrs Per Day: .25 hour per day Patient and/or Family Agrees t: Yes Safety Risks/Education Patient Education: Gait Training, Transfer Techniques, Correct Positioning, Safety Issues Teaching Recipient: Patient Teaching Methods: Demonstration, Discussion Response to Teaching: Reinforcement Needed Time/GCodes Time In: 829 Time Out: 08 Total Billed Treatment Time: 14 Total Billed Treatment 1 visit FA KEI LUKE PT Mar 10, 2020 08:53
--- NOTE | 2020-03-10 09:23 | Progress Note - Cardiology ---
Cardiology SOAP Progress Note Subjective: Sitting up in chair at the bedside. States she continues to feel weak. No c/o CP, SOB. Reports feeling of rapid heart beat over night lasting for a few minutes. Tele strips reviewed showing sinus tachycardia with occ PVC's. Objective: I&O/Vital Signs Constitutional: other (responds appropriately) Respiratory: No accessory muscle use; other (good bilat air entry) Cardiovascular: regular rate-rhythm, S1 and S2, systolic murmur (faint AURA at card base) Gastrointestional: other (post surgical abdomen; we did not attempt palpation; absent bs; NG tube in place) Extremities: No clubbing, No cyanosis; significant edema ( mild to mod bilat LE swelling) Neurologic/Psychiatric: other (able to move all limbs equally) Skin: No rash on exposed areas, No ulcerations on exposed areas Results/Procedures: Labs Microbiology 03/12/20 Catheter Tip Culture - Final, Complete No growth 03/05/20 Blood Culture - Final, Complete No growth 03/04/20 MRSA Screen - Final, Complete MRSA not isolated A/P: Assessment: S/p colectomy for intestinal obstruction Marked post-op anemia, managed by the Surgical and Hospitalist Services - received 2 units of 03-09-2020 Hypokalemia on 03/08/20, being replenished Abnormal ECG, but no evidence of ac [place] CAD, h/o cor stenting at [facility] in Oct 2019. Last card cath on 03/05/20: patent stents in the mid left circumflex and the mid right coronary arteries. There is moderate diffuse disease of all coronary arteries. There is moderately severe diffuse disease of the distal left anterior descending. A small caliber obtuse marginal has 70% to 80% ostial stenosis. Normal left ventricular end- diastolic pressure. Echo of 03/05/20: LVEF 60-65%, mild to mod TR, RVSP 35-40 mmHg, mild dilatation of LA Post-op hypotension and EMIGDIO 2, resolved Plan: * Continue DAPT because of recent coronary stenting * Management of anemia per medical/surgical services - received 2 units PRBC today * BP has improved, tachycardia, previously taking BB tx - resume BB at low dose and adjust as tolerated * Monitor labs BENJI WILLOUGHBY Mar 10, 2020 09:23
[2020-03-10] MEDS: PANTOPRAZOLE 40 MG (PROTONIX) VIAL IVP SCH (09:27)
[2020-03-10] MEDS: CLOPIDOGREL 75 MG (PLAVIX) TABLET PO SCH (09:28)
[2020-03-10] MEDS: ASPIRIN 81 MG CHEW (CHILDREN'S ASA) PO SCH (09:28)
[2020-03-10] MEDS ORDERED: meTOprolol TARTRATE 25 MG (LOPRESSOR) TABLET ONE (09:29)
[2020-03-10] MEDS ORDERED: meTOprolol TARTRATE 25 MG (LOPRESSOR) TABLET PO ONE (09:30)
--- NOTE | 2020-03-10 11:21 | NUR ---
CM/SS: Visited with pt as to her plan for discharge Plan: Pt will go to her friends home at the time of discharge. Summary: Pt is feeling better on today. Pt reports that she will go and live with her friend initially, and then go home. She reports being weak and only has walked a little bit. She is encouraged to walk with physical therapy when they come to visit. She verbalizes understanding. When asked about if she would need some teaching on her ileostomy, she thinks maybe, but is not for sure. Pt identifies her friend as having a background in healthcare. This worker will continue to follow up.
[2020-03-10 11:23] VITALS: BP 126/80
--- NOTE | 2020-03-10 11:57 | Occupational Ther Daily Note ---
OT Current Status-Daily Note Subjective Pt seated in recliner at start of session, requesting to transfer to bed. Pain Numeric Pain Scale: 4 Mental Status/Objective Attachments: Monson Catheter, IV ADL-Treatment Therapy Code Descriptions/Definitions Functional [place] Measure: 0=Not Assessed/NA 4=Minimal Assistance 1=Total Assistance 5=Supervision or Setup 2=Maximal Assistance 6=Modified [place] 3=Moderate Assistance 7=Complete IndependenceSCALE: Activities may be completed with or without assistive devices. 9-Gfqekllpdp-pnnmsqc completes the activity by him/herself with no assistance from a helper. 5-Set-up or Clean-up Assistance-helper sets up or cleans up; patient completes activity. [place] assists only prior to or following the activity. 4-Supervision or Touching Assistance-helper provides verbal cues and/or touching/steadying and/or contact guard assistance as patient completes activity. Assistance may be provided throughout the activity or intermittently. 3-Partial/Moderate Assistance-helper does LESS THAN HALF the effort. [place] lifts, holds or supports trunk or limbs, but provides less than half the effort. 2-Substantial/Maximal Assistance-helper does MORE THAN HALF the effort. [place] lifts or holds trunk or limbs and provides more than half the effort. 5-Qjrtdrzvp-jitqdl does ALL the effort. Patient does none of the effort to complete the activity. Or, the assistance of 2 or more helpers is required for the patient to complete the activity. If activity was not attempted, code reason: 7-Patient Refused. 9-Not Applicable-not attempted and the patient did not perform the activity before the current illness, exacerbation or injury. 10-Not Attempted due to Environmental Limitations-(lack of equipment, weather restraints, etc.). 88-Not Attempted due to Medical Conditions or Safety Concerns. Oral Hygiene (QC): 5 (set up/clean up. Pt required increased time with task) Other Treatment Pt seated in recliner, transferred from recliner to EOB with CGA. Pt then sat EOB while she completed oral hygiene. Pt slow with movements, requiring increased time with tasks. Pt then transferred sit to supine, requiring assistance with BLEs into bed. Post OT session, pt laying in bed, call light in reach and all needs met. Education OT Patient Education: Correct positioning, Energy conservation, Modified ADL techniques, Progress toward Goal/Update tx plan, Purpose of tx/functional activities, Transfer techniques Teaching Recipient: Patient Teaching Methods: Discussion Response to Teaching: Verbalize Understanding OT Short Term Goals Short Term Goals Time Frame: Mar 14, 2020 Toileting hygiene: 3 Shower/bathe self: 3 Upper body dressin Lower body dressin OT Pharmacy Intern Goals Skilled Nursing Goals Time Frame: Mar 21, 2020 Eating (QC): 6 Oral Hygiene (QC): 5 Toileting Hygiene (QC): 5 Shower/Bathe Self (QC): 4 Upper Body Dressing (QC): 5 Lower Body Dressing (QC): 5 On/Off Footwear (QC): 5 Additional Goals: 2-Verbalize Understanding, 3-ImproveStrength/Fern 1=Demonstrate adherence to instructed precautions during ADL tasks. 2=Patient will verbalize/demonstrate understanding of assistive devices/modifications for ADL. 3=Patient will improve strength/tolerance for activity to enable patient to perform ADL's. OT Education/Plan Problem List/Assessment Assessment: Decreased Activ Tolerance, Decreased UE Strength, Impaired Funct Balance, Impaired I ADL's, Impaired Self-Care Skills Pt to benefit from skilled OT intervention for ADL training, transfers, strengthening, and home safety education to increase level of independence and allow safe discharge. Discharge Recommendations Plan/Recommendations: Continue POC Treatment Plan/Plan of Care Patient would benefit from OT for education, treatment and training to promote independence in ADL's, mobility, safety and/or upper extremity function for ADL's. Plan of Care: ADL Retraining, Functional Mobility, UE Funct Exercise/Act Treatment Duration: Mar 21, 2020 Frequency: 5 times per week Estimated Hrs Per Day: .25 hour per day Rehab Potential: Fair Time/GCodes Start Time: 11:13 Stop Time: 11:36 Total Time Billed (hr/min): 23 Billed Treatment Time 1, ADL 2 SHAVON BARTLETT OT Mar 10, 2020 11:57
--- NOTE | 2020-03-10 14:20 | NUR ---
Spoke with patient reference ileostomy and assisting RN with caring for ostomy. Gave pt secure start information and helped her fill out part of it and gave he instruction to finish and we can fax it to [place]. Pt appeared very drowsy and was not participating in teaching. She requested I come back later. I informed her I could come by on .
--- NOTE | 2020-03-10 14:50 | Progress Note - Cardiology ---
Cardiology SOAP Progress Note Subjective: Notes gen malaise, weakness and tiredness Poor stamina Feel heart beat to rapid at times, nomi after mild activity No focal weakness No n/v/d Objective: I&O/Vital Signs 03/10/20 03/10/20 03/10/20 03/10/20 03:50 06:48 07:00 07:28 Temp 37.0 36.6 Pulse 105 106 108 Resp 16 18 B/P (MAP) 117/74 (88) 136/83 (100) Pulse Ox 94 95 97 O2 Delivery Room Air Room Air Room Air 03/10/20 03/10/20 03/10/20 08:00 11:23 13:00 Temp 36.5 Pulse 107 102 Resp 20 B/P (MAP) 126/80 (95) Pulse Ox 97 99 O2 Delivery Room Air Room Air 03/10/20 00:00 Intake Total 2560 ml Output Total 3100 ml Balance -540 ml Constitutional: other (responds appropriately) Respiratory: No accessory muscle use; other (good bilat air entry) Cardiovascular: regular rate-rhythm, S1 and S2, systolic murmur (faint AURA at card base) Gastrointestional: other (post surgical abdomen; we did not attempt palpation; absent bs; NG tube in place) Extremities: No clubbing, No cyanosis; significant edema ( mild to mod bilat LE swelling) Neurologic/Psychiatric: other (able to move all limbs equally) Skin: No rash on exposed areas, No ulcerations on exposed areas Results/Procedures: Labs Laboratory Tests 03/10/20 04:00: White Blood Count 13.2H, Red Blood Count 2.93L, Hemoglobin 7.5L, Hematocrit 22L, Mean Corpuscular Volume 75L, Mean Corpuscular Hemoglobin 26, Mean Corpuscular Hemoglobin Concent 34, Red Cell Distribution Width 20.1H, Platelet Count 214, Mean Platelet Volume 9.5, Neutrophils (%) (Auto) 84H, Lymphocytes (%) (Auto) 6L, Monocytes (%) (Auto) 9, Eosinophils (%) (Auto) 1, Basophils (%) (Auto) 0, Neutrophils # (Auto) 11.1H, Lymphocytes # (Auto) 0.7L, Monocytes # (Auto) 1.2H, Eosinophils # (Auto) 0.2, Basophils # (Auto) 0.0, Sodium Level 134L, Potassium Level 3.3L, Chloride Level 107, Carbon Dioxide Level 20L, Anion Gap 7, Blood Urea Nitrogen 19H, Creatinine 0.61, Estimat Glomerular Filtration Rate > 60, BUN/Creatinine Ratio 31, Glucose Level 99, Calcium Level 6.3L Microbiology 03/05/20 Blood Culture - Final, Complete No growth 03/04/20 MRSA Screen - Final, Complete MRSA not isolated Laboratory Tests 03/09/20 01:05 03/09/20 06:00 03/10/20 04:00 A/P: Assessment: S/p colectomy for intestinal obstruction Marked post-op anemia, managed by the Surgical and Hospitalist Services - received 2 units of 03-09-2020 Sinus tach Hypokalemia Abnormal ECG, but no evidence of ac [place] CAD, h/o cor stenting at [facility] in Oct 2019. Last card cath on 03/05/20: patent stents in the mid left circumflex and the mid right coronary arteries. There is moderate diffuse disease of all coronary arteries. There is moderately severe diffuse disease of the distal left anterior descending. A small caliber obtuse marginal has 70% to 80% ostial stenosis. Normal left ventricular end- diastolic pressure. Echo of 03/05/20: LVEF 60-65%, mild to mod TR, RVSP 35-40 mmHg, mild dilatation of LA Post-op hypotension and EMIGDIO 2, resolved Plan: * I reviewed her CV issues with her and answered questions * Continue DAPT because of recent coronary stenting * Increase bb * Replenish k * Monitor labs VI KO MD FACP FAC CCDS Mar 10, 2020 14:50
[2020-03-10 15:26] VITALS: BP 121/72
--- NOTE | 2020-03-10 15:42 | Progress Note - Surgery ---
Subjective Time Seen by a Provider: 09:49 Subjective/Events-last exam Pt seen and examined, states she still feels weak but pain controlled. She looks better than yesterday, slightly more color. Review of Systems General: No Chills, No Night Sweats; Fatigue, Malaise Pulmonary: No Dyspnea, No Cough Cardiovascular: No: Chest Pain, Palpitations Gastrointestinal: Abdominal Pain (very minimal at incision); No: Nausea, Vomiting Objective Exam Vital Signs Date Time Temp Pulse Resp B/P (MAP) Pulse Ox O2 Delivery O2 Flow Rate FiO2 03/10/20 15:26 37.0 106 18 121/72 (88) 97 Room Air 03/10/20 13:00 102 03/10/20 11:23 36.5 107 20 126/80 (95) 99 Room Air 03/10/20 08:00 97 Room Air 03/10/20 07:28 36.6 108 18 136/83 (100) 97 Room Air 03/10/20 07:00 106 03/10/20 06:48 95 Room Air 03/10/20 03:50 37.0 105 16 117/74 (88) 94 Room Air 03/10/20 01:00 109 03/09/20 23:50 37.2 106 16 119/70 (86) 97 Room Air 03/09/20 20:00 Room Air 2.00 03/09/20 19:53 36.5 104 18 118/75 (89) 100 Room Air 03/09/20 19:00 107 I & O 03/10/20 07:00 Intake Total 4120 ml Output Total 4650 ml Balance -530 ml Capillary Refill : Less Than 3 Seconds General Appearance: No Apparent Distress, Chronically ill HEENT: Moist Mucous Membranes; No Scleral Icterus (L), No Scleral Icterus (R) Respiratory: Lungs Clear, Normal Breath Sounds Cardiovascular: Regular Rate, Rhythm, No Murmur Gastrointestinal: soft, other (inicision is intact. Ileostomy has large amount of output) Skin: Pallor Results Lab Laboratory Tests 03/10/20 04:00: White Blood Count 13.2H, Red Blood Count 2.93L, Hemoglobin 7.5L, Hematocrit 22L, Mean Corpuscular Volume 75L, Mean Corpuscular Hemoglobin 26, Mean Corpuscular Hemoglobin Concent 34, Red Cell Distribution Width 20.1H, Platelet Count 214, Mean Platelet Volume 9.5, Neutrophils (%) (Auto) 84H, Lymphocytes (%) (Auto) 6L, Monocytes (%) (Auto) 9, Eosinophils (%) (Auto) 1, Basophils (%) (Auto) 0, Neutrophils # (Auto) 11.1H, Lymphocytes # (Auto) 0.7L, Monocytes # (Auto) 1.2H, Eosinophils # (Auto) 0.2, Basophils # (Auto) 0.0, Sodium Level 134L, Potassium Level 3.3L, Chloride Level 107, Carbon Dioxide Level 20L, Anion Gap 7, Blood Urea Nitrogen 19H, Creatinine 0.61, Estimat Glomerular Filtration Rate > 60, BUN/Creatinine Ratio 31, Glucose Level 99, Calcium Level 6.3L Microbiology 03/05/20 Blood Culture - Final, Complete No growth 03/04/20 MRSA Screen - Final, Complete MRSA not isolated Assessment/Plan Assessment/Plan Assessment/Plan Hypokalemia - replace potassium with oral supplements Anemia - S/P transfuse 2 units PRBC, Hg only came up to 7.7. 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 It appears the Lasix has helped her edema a little bit; no longer in the hands but still some in b/l LE. Decrease IV fluids and will D/C arellano. Clinical Quality Measures DVT/VTE Risk/Contraindication: Risk Factor Score Per Nursin RFS Level Per Nursing on Admit: 4+=Very High SHEILA DE OLIVEIRA DO Mar 10, 2020 15:42
[2020-03-10 19:34] VITALS: BP_SYST 121; BP_SYST 137; BP_DIAS 72; BP_DIAS 75
[2020-03-10] MEDS ORDERED: meTOprolol TARTRATE 25 MG (LOPRESSOR) TABLET PO SCH (21:00)
[2020-03-10] MEDS: meTOprolol TARTRATE 25 MG (LOPRESSOR) TABLET PO SCH (21:14)
[2020-03-11] VITALS (7 sets, daily range): BP systolic 110–135; BP diastolic 74–86
[2020-03-11] MEDS: fentaNYL INJECTION 100 MCG/2 ML AMP IVP PRN ×4 (01:47→18:17)
[2020-03-11 04:56] LABS: BASOPHILS % (AUTO) 0 % (0-10); EOSINOPHILS # (AUTO) 0.2 10^3/uL (0.0-0.3); EOSINOPHILS % (AUTO) 1 % (0-10); HEMATOCRIT 23 % (35-52); HEMOGLOBIN 7.9 G/DL (11.5-16.0); LYMPHOCYTES # (AUTO) 0.9 X 10^3 (1.0-4.0); LYMPHOCYTES % (AUTO) 5 % (12-44); MEAN CORPUSCULAR HEMOGLOBIN 26 PG (25-34); MEAN CORPUSCULAR HGB CONC 34 G/DL (32-36); MEAN CORPUSCULAR VOLUME 75 FL (80-99); MEAN PLATELET VOLUME 8.9 FL (7.4-10.4); MONOCYTES # (AUTO) 1.7 X 10^3 (0.0-1.0); MONOCYTES % (AUTO) 10 % (0-12); NEUTROPHILS # (AUTO) 14.8 X 10^3 (1.8-7.8); NEUTROPHILS % (AUTO) 84 % (42-75); PLATELET COUNT 295 10^3/uL (130-400); RED CELL DISTRIBUTION WIDTH 20.8 % (10.0-14.5); WHITE BLOOD COUNT 17.7 10^3/uL (4.3-11.0)
[2020-03-11 05:07] LABS: CHLORIDE 107 MMOL/L (98-107); POTASSIUM 3.6 MMOL/L (3.6-5.0); SODIUM 135 MMOL/L (135-145)
[2020-03-11 05:08] LABS: CALCIUM 6.6 MG/DL (8.5-10.1)
[2020-03-11 05:09] LABS: GLUCOSE 95 MG/DL (70-105)
[2020-03-11 05:10] LABS: CARBON DIOXIDE 19 MMOL/L (21-32)
[2020-03-11 05:12] LABS: CREATININE SERUM 0.54 MG/DL (0.60-1.30); GFR ESTIMATED > 60
[2020-03-11 05:13] LABS: BUN/CREATININE RATIO 20
[2020-03-11] MEDS: KCL 20 MEQ TAB (K-DUR) PO SCH (05:24)
[2020-03-11] MEDS: MAGNESIUM 1 GM/100 ML IVPB 100 ML IV SCH (05:24)
[2020-03-11 06:20] LABS: ANISOCYTOSIS SLIGHT; BURR CELLS SLIGHT; ELLIPT/OVALOCYTES SLIGHT; EOSINOPHILS % (MANUAL) 2 %; HYPOCHROMASIA SLIGHT; LYMPHOCYTES % (MANUAL) 6 %; MONOCYTES % (MANUAL) 7 %; NEUTROPHILS % (MANUAL) 85 %; POIKILOCYTOSIS SLIGHT
[2020-03-11 06:21] LABS: SCHISTOCYTES SLIGHT
--- NOTE | 2020-03-11 07:15 | NUR ---
Dr. Ji contacted at 0708 and notified that PT has not urinated this form grader. PT denies complaints of bladder fullness and/or urge to urinate. Unable to bladder scar at this time r/t PT's pain. Awaiting further orders at this time.
[2020-03-11] MEDS: RT-ALBUTEROL SULF 2.5 MG/3 ML PRE-MIX VIAL INH SCH ×2 (07:16→18:51)
[2020-03-11] MEDS: CLOPIDOGREL 75 MG (PLAVIX) TABLET PO SCH (09:23)
[2020-03-11] MEDS: meTOprolol TARTRATE 25 MG (LOPRESSOR) TABLET PO SCH (09:23)
[2020-03-11] MEDS: ASPIRIN 81 MG CHEW (CHILDREN'S ASA) PO SCH (09:23)
[2020-03-11] MEDS: PANTOPRAZOLE 40 MG (PROTONIX) VIAL IVP SCH (09:23)
[2020-03-11] MEDS: LACTATED RINGERS 1,000 ML IV SCH (10:40)
[2020-03-11] MEDS ORDERED: meTOprolol TARTRATE 25 MG (LOPRESSOR) TABLET PO ONE (11:30)
--- NOTE | 2020-03-11 11:37 | Physical Therapy Daily Note ---
PT Daily Note-Current Subjective Pt in bed, agreeable. Agreeable to ambulate further with encouragement and addition of second skilled person. Mental Status Patient Orientation: Person, Place, Time, Situation Attachments: SCD's, Colostomy/Ileostomy, IV Transfers SCALE: Activities may be completed with or without assistive devices. 4-Pwzdcmxdwc-qhvqrit completes the activity by him/herself with no assistance from a helper. 5-Set-up or Clean-up Assistance-helper sets up or cleans up; patient completes activity. [place] assists only prior to or following the activity. 4-Supervision or Touching Assistance-helper provides verbal cues and/or touching/steadying and/or contact guard assistance as patient completes activity. Assistance may be provided throughout the activity or intermittently. 3-Partial/Moderate Assistance-helper does LESS THAN HALF the effort. [place] lifts, holds or supports trunk or limbs, but provides less than half the effort. 2-Substantial/Maximal Assistance-helper does MORE THAN HALF the effort. [place] lifts or holds trunk or limbs and provides more than half the effort. 3-Wtxpzjchk-mlfouy does ALL the effort. Patient does none of the effort to complete the activity. Or, the assistance of 2 or more helpers is required for the patient to complete the activity. If activity was not attempted, code reason: 7-Patient Refused. 9-Not Applicable-not attempted and the patient did not perform the activity before the current illness, exacerbation or injury. 10-Not Attempted due to Environmental Limitations-(lack of equipment, weather restraints, etc.). 88-Not Attempted due to Medical Conditions or Safety Concerns. Roll Left & Right (QC): 4 Lying to Sitting/Side of Bed(Q: 3 Sit to Stand (QC): 5 Chair/Ksr-rm-Ttpwi Xfer(QC): 5 Weight Bearing Right Lower Extremity: Right Full Weight Bearing Left Lower Extremity: Left Full Weight Bearing Gait Training Does the Patient Walk?: Yes Distance: 5', 25' Walk 10 feet (QC): 4 Walk 50 ft with 2 Turns(QC): 88 Walk 150 ft (QC): 88 Walking 10ft/uneven surface-QC: 88 Gait Persons Needed: 1 Gait Assistive Device: FWW Pt ambulated bed->chair with CGA x 1. After seated rest, Pt ambulated 25' x 1 with FWW with CGA x 1. Very slow, deliberate gait but no LOB. Wheelchair Training Does the Pt Use a Wheelchair?: No Treatments Gait training, transfer training. Up in chair with all needs met. Assessment Current Status: Good Progress Pt tolerated well. Max skilled VCS for sequencing log-roll, sidelying->sit TFR. VCS for hand placement with sit<->stand. Pt with increased activity with encouragement. PT Compliance Analyst Goals Fpc Goals PT Fpc Goals Time Frame: Mar 21, 2020 Roll Left & Right (QC): 6 Sit to Lying (QC): 6 Lying-Sitting on Side/Bed(QC): 6 Sit to Stand (QC): 6 Chair/Bki-zc-Xcpue Xfer(QC): 6 Toilet Transfer (QC): 6 Car Transfer (QC): 6 Does the Patient Walk: Yes Walk 10 feet (QC): 6 Walk 50ft with 2 Turns (QC): 6 Walk 150 ft (QC): 6 Walking 10ft on Uneven Surface: 6 PT Plan Problem List Problem List: Activity Tolerance, Functional Strength, Safety, Balance, Gait, Transfer, Bed Mobility Treatment/Plan Treatment Plan: Continue Plan of Care Treatment Plan: Bed Mobility, Education, Functional Activity Fern, Functional Strength, Gait, Safety, Therapeutic Exercise, Transfers Treatment Duration: Mar 21, 2020 Frequency: 6 times per week Estimated Hrs Per Day: .25 hour per day Patient and/or Family Agrees t: Yes Safety Risks/Education Patient Education: Gait Training, Transfer Techniques Teaching Recipient: Patient Teaching Methods: Discussion Response to Teaching: Reinforcement Needed Time/GCodes Time In: 1100 Time Out: 1127 Total Billed Treatment Time: 14 Total Billed Treatment 1, GT x 14' (unattended x 13' for OT to address ADLs) JUAN ALBERTO DICKINSON DPRyan Mar 11, 2020 11:37
--- NOTE | 2020-03-11 11:41 | Occupational Ther Daily Note ---
OT Current Status-Daily Note Subjective Pt laying in bed at start of tx, reports some pain in abdomen, did not express pain rating. Mental Status/Objective Patient Orientation: Normal For Age Attachments: Colostomy/Ileostomy, IV, SCD's ADL-Treatment Therapy Code Descriptions/Definitions Functional [place] Measure: 0=Not Assessed/NA 4=Minimal Assistance 1=Total Assistance 5=Supervision or Setup 2=Maximal Assistance 6=Modified [place] 3=Moderate Assistance 7=Complete IndependenceSCALE: Activities may be completed with or without assistive devices. 3-Augwjlvhcp-hoeephb completes the activity by him/herself with no assistance from a helper. 5-Set-up or Clean-up Assistance-helper sets up or cleans up; patient completes activity. [place] assists only prior to or following the activity. 4-Supervision or Touching Assistance-helper provides verbal cues and/or touching/steadying and/or contact guard assistance as patient completes a ctivity. Assistance may be provided throughout the activity or intermittently. 3-Partial/Moderate Assistance-helper does LESS THAN HALF the effort. [place] lifts, holds or supports trunk or limbs, but provides less than half the effort. 2-Substantial/Maximal Assistance-helper does MORE THAN HALF the effort. [place] lifts or holds trunk or limbs and provides more than half the effort. 4-Mfbapwtfx-rrjmxx does ALL the effort. Patient does none of the effort to complete the activity. Or, the assistance of 2 or more helpers is required for the patient to complete the activity. If activity was not attempted, code reason: 7-Patient Refused. 9-Not Applicable-not attempted and the patient did not perform the activity before the current illness, exacerbation or injury. 10-Not Attempted due to Environmental Limitations-(lack of equipment, weather restraints, etc.). 88-Not Attempted due to Medical Conditions or Safety Concerns. Oral Hygiene (QC): 5 (set up/clean up at tray table.) Other Treatment Pt completed oral hygiene seated in recliner. She required increased time with task in order to brush her teeth and then brush her dentures. Pt used a wet washcloth with set up assist in order to wash her face. Pt also brushed her hair with set up assist at recliner level. Post tx pt seated in recliner, call light in reach and all needs met. Education OT Patient Education: Correct positioning, Energy conservation, Modified ADL techniques, Progress toward Goal/Update tx plan, Purpose of tx/functional activities Teaching Recipient: Patient Teaching Methods: Discussion Response to Teaching: Verbalize Understanding OT Short Term Goals Short Term Goals Time Frame: Mar 14, 2020 Toileting hygiene: 3 Shower/bathe self: 3 Upper body dressin Lower body dressin OT Temporary Receptionist Goals Temporary Receptionist Goals Time Frame: Mar 21, 2020 Eating (QC): 6 Oral Hygiene (QC): 5 Toileting Hygiene (QC): 5 Shower/Bathe Self (QC): 4 Upper Body Dressing (QC): 5 Lower Body Dressing (QC): 5 On/Off Footwear (QC): 5 Additional Goals: 2-Verbalize Understanding, 3-ImproveStrength/Fern 1=Demonstrate adherence to instructed precautions during ADL tasks. 2=Patient will verbalize/demonstrate understanding of assistive devices/modifications for ADL. 3=Patient will improve strength/tolerance for activity to enable patient to perform ADL's. OT Education/Plan Problem List/Assessment Assessment: Decreased Activ Tolerance, Decreased UE Strength, Impaired I ADL's, Impaired Self-Care Skills Pt to benefit from skilled OT intervention for ADL training, transfers, strengthening, and home safety education to increase level of independence and allow safe discharge. Discharge Recommendations Plan/Recommendations: Continue POC Treatment Plan/Plan of Care Patient would benefit from OT for education, treatment and training to promote independence in ADL's, mobility, safety and/or upper extremity function for ADL's. Plan of Care: ADL Retraining, Functional Mobility, UE Funct Exercise/Act Treatment Duration: Mar 21, 2020 Frequency: 5 times per week Estimated Hrs Per Day: .25 hour per day Rehab Potential: Fair Time/GCodes Start Time: 11:00 Stop Time: 11:27 Total Time Billed (hr/min): 13 Billed Treatment Time (unattended 14' for PT to address gait.) 1, ADL (13'), SHAVON BARTLETT OT Mar 11, 2020 11:41
--- NOTE | 2020-03-11 11:44 | Progress Note - Cardiology ---
Cardiology SOAP Progress Note Subjective: Notes rapid heart beat with activity Does not report cp or syncope or swelling Gen malaise and weakness Mild exertional shortness of breath No focal weakness Objective: I&O/Vital Signs 03/11/20 03/11/20 03/11/20 03/11/20 00:50 01:00 04:00 07:00 Temp 37.6 36.8 Pulse 110 112 114 112 Resp 20 20 B/P (MAP) 135/82 (99) 129/86 (100) Pulse Ox 95 97 O2 Delivery Room Air Room Air 03/11/20 03/11/20 07:16 08:00 Temp 36.1 Pulse 113 Resp 16 B/P (MAP) 128/82 (97) Pulse Ox 94 99 O2 Delivery Room Air Room Air 03/11/20 00:00 Intake Total 2340 ml Output Total 775 ml Balance 1565 ml Constitutional: other (responds appropriately) Respiratory: No accessory muscle use; other (good bilat air entry) Cardiovascular: regular rate-rhythm, S1 and S2, systolic murmur (faint AURA at card base) Gastrointestional: other (post surgical abdomen; we did not attempt palpation; absent bs; NG tube in place) Extremities: No clubbing, No cyanosis; significant edema ( mild to mod bilat LE swelling) Neurologic/Psychiatric: other (able to move all limbs equally) Skin: No rash on exposed areas, No ulcerations on exposed areas Results/Procedures: Labs Laboratory Tests 03/11/20 04:45: White Blood Count 17.7H, Red Blood Count 3.05L, Hemoglobin 7.9L, Hematocrit 23L, Mean Corpuscular Volume 75L, Mean Corpuscular Hemoglobin 26, Mean Corpuscular Hemoglobin Concent 34, Red Cell Distribution Width 20.8H, Platelet Count 295, Mean Platelet Volume 8.9, Neutrophils (%) (Auto) 84H, Lymphocytes (%) (Auto) 5L, Monocytes (%) (Auto) 10, Eosinophils (%) (Auto) 1, Basophils (%) (Auto) 0, Neutrophils # (Auto) 14.8H, Lymphocytes # (Auto) 0.9L, Monocytes # (Auto) 1.7H, Eosinophils # (Auto) 0.2, Basophils # (Auto) 0.0, Neutrophils % (Manual) 85, Lymphocytes % (Manual) 6, Monocytes % (Manual) 7, Eosinophils % (Manual) 2, Hypochromasia SLIGHT, Poikilocytosis SLIGHT, Anisocytosis SLIGHT, [place] Cells SLIGHT, Elliptocytes SLIGHT, Schistocytes SLIGHT, Sodium Level 135, Potassium Level 3.6, Chloride Level 107, Carbon Dioxide Level 19L, Anion Gap 9, Blood Urea Nitrogen 11, Creatinine 0.54L, Estimat Glomerular Filtration Rate > 60, BUN/Creatinine Ratio 20, Glucose Level 95, Calcium Level 6.6L Microbiology 03/05/20 Blood Culture - Final, Complete No growth 03/04/20 MRSA Screen - Final, Complete MRSA not isolated Laboratory Tests 03/10/20 04:00 03/11/20 04:45 A/P: Assessment: Sinus tach and leucocytosis, consider systemic infection (managed by Med and Surg Svces0 S/p colectomy for intestinal obstruction Marked post-op anemia, managed by the Surgical and Hospitalist Services - received 2 units of 03-09-2020 Hypokalemia, corrected Abnormal ECG, but no evidence of ac CO CAD, h/o cor stenting at [facility] in Oct 2019. Last card cath on 03/05/20: patent stents in the mid left circumflex and the mid right coronary arteries. There is moderate diffuse disease of all coronary arteries. There is moderately severe diffuse disease of the distal left anterior descending. A small caliber obtuse marginal has 70% to 80% ostial stenosis. Normal left ventricular end- diastolic pressure. Echo of 03/05/20: LVEF 60-65%, mild to mod TR, RVSP 35-40 mmHg, mild dilatation of LA Post-op hypotension and EMIGDIO 2, resolved Plan: * Further increase bb * Continue DAPT because of recent coronary stenting * Monitor labs VI KO MD FACP FAC CCDS Mar 11, 2020 11:44
--- NOTE | 2020-03-11 13:02 | NUR ---
"RD ASSESSMENT PMHx: HF; hypercholesterolemia; HTN; MO PT INTERACTION: Pt was awake and pleasant during nutrition follow-up. Pt states her appetite has improved a bit. Note avg PO intake 33% x2d, per chart review. Pt states no issues with n/v/c/d since last assessment. Note ileostomy output avg of 2043ml x4d, and that pt not currently on bowel regimen per chart review. ABNORMAL NUTRITION-RELATED LAB VALUES LOW: cr 0.54; Ca 6.6 HIGH: Est. kcal needs: 6996-1677 kcal | 20-25 kcal/kg Est. Pro needs: 75-90 g Pro | 1.0-1.2 g Pro/kg PES STATEMENT: Inadequate oral intake (NI-2.1) related to loss of appetite as evidenced by pt interview | avg PO intake 33% x2d INTERVENTION: Continue with current diet order of DYS2 Mechanically Altered diet. Would recommend advancing diet to Regular when medically able and as tolerated. Switch current supplementation order of Ensure Clear (vary) with meals TID to Ensure Enlive with meals TID, for increased kcal intake. Ensure Enlive provides 350 kcal and 13 g Pro per serving. Encouraged pt to eat when able. Will continue to follow and reassess as pt needs, intake, and status change. MONITOR/EVALUATE: PO Intake; Plan of Care; Hydration Status; Weight Status; Lab Values Camron Rogers, MS, RD, LD"
--- NOTE | 2020-03-11 13:31 | NUR ---
CM/SS: Visited with pt about her plan for discharge as well as completed the [employer] Application for Medical assistance and Application for food and fraga assistance. Plan: Pt continues to report she will return to her home - but will spend time at a friends until she can return to her home Summary: Discussed with pt as to not having insurance and the need to apply for [employer] - Medicaid as well as fraga and food assistance. Pt is open to do so. Applications completed. Pt does report having outstanding medical bill from [place] as she had to have stints placed in October 2019. Pt reports her bill is $87,000. Pt is open to provide this worker the information. Pt reports not knowing some of the information, but is told we will get the application submitted so that is can be processed. She is aware that she will have to provide them with some additional information for the application to be complete. Pt has not applied for disability, and is hopeful to return to work. Call to pt's friend - Sandra Perez - [phone] - she verifies that pt will come to her home after she is discharged from hospital. Pt is encouraged to work with physical therapy and get stronger. Pt continues to not want to go to inpatient rehab and wants to go from here to her friends home to recuperate. [employer] [facility] [place] and then mailed, as well as the application for food assistance is mailed to the [facility] office in [facility]. Pt is provided with copies of both for her records. This worker will continue to follow up with pt as to her finalized plan for discharge.
--- NOTE | 2020-03-11 14:22 | Diagnostic Imaging Report ---
INDICATION: Recent surgery with elevated white blood cell count. FINDINGS: There is a small amount of free air deep to the right hemidiaphragm presumed on a post operative basis given the history. Mild basilar atelectasis but no evidence for pneumonia. IMPRESSION: Mild bibasilar partial atelectasis. Small amount of pneumoperitoneum presumed postsurgical. No evidence for pneumonia or failure. Dictated by: Dictated on workstation # [id number]
--- NOTE | 2020-03-11 14:59 | Progress Note - Surgery ---
Subjective Time Seen by a Provider: 13:28 Subjective/Events-last exam Pt seen and examined; states she is feeling better, but still a little weak. She is tolerating diet but not drinking much fluids. Review of Systems Pulmonary: No Dyspnea, No Cough Cardiovascular: No: Chest Pain, Palpitations Gastrointestinal: Abdominal Pain; No: Nausea, Vomiting Objective Exam Vital Signs Date Time Temp Pulse Resp B/P (MAP) Pulse Ox O2 Delivery O2 Flow Rate FiO2 03/11/20 12:49 110 03/11/20 12:00 36.3 109 16 129/80 (96) 98 Room Air 03/11/20 08:00 36.1 113 16 128/82 (97) 99 Room Air 03/11/20 08:00 Room Air 03/11/20 07:16 94 Room Air 03/11/20 07:00 112 03/11/20 04:00 36.8 114 20 129/86 (100) 97 Room Air 03/11/20 01:00 112 03/11/20 00:50 37.6 110 20 135/82 (99) 95 Room Air 03/10/20 19:50 96 Room Air 03/10/20 19:34 36.9 114 18 137/75 (95) 96 Room Air 03/10/20 19:00 107 03/10/20 18:08 95 Room Air 03/10/20 15:26 37.0 106 18 121/72 (88) 97 Room Air I & O 03/11/20 07:00 Intake Total 3790 ml Output Total 775 ml Balance 3015 ml Capillary Refill : Less Than 3 Seconds General Appearance: No Apparent Distress, Chronically ill HEENT: Moist Mucous Membranes; No Scleral Icterus (L), No Scleral Icterus (R) Respiratory: Lungs Clear, Normal Breath Sounds Cardiovascular: Regular Rate, Rhythm, No Murmur Gastrointestinal: soft, other (inicision is intact. Ileostomy has large amount of output) Skin: Pallor Results Lab Laboratory Tests 03/11/20 04:45: White Blood Count 17.7H, Red Blood Count 3.05L, Hemoglobin 7.9L, Hematocrit 23L, Mean Corpuscular Volume 75L, Mean Corpuscular Hemoglobin 26, Mean Corpuscular Hemoglobin Concent 34, Red Cell Distribution Width 20.8H, Platelet Count 295, Mean Platelet Volume 8.9, Neutrophils (%) (Auto) 84H, Lymphocytes (%) (Auto) 5L, Monocytes (%) (Auto) 10, Eosinophils (%) (Auto) 1, Basophils (%) (Auto) 0, Neutrophils # (Auto) 14.8H, Lymphocytes # (Auto) 0.9L, Monocytes # (Auto) 1.7H, Eosinophils # (Auto) 0.2, Basophils # (Auto) 0.0, Neutrophils % (Manual) 85, Lymphocytes % (Manual) 6, Monocytes % (Manual) 7, Eosinophils % (Manual) 2, Hypochromasia SLIGHT, Poikilocytosis SLIGHT, Anisocytosis SLIGHT, [place] Cells SLIGHT, Elliptocytes SLIGHT, Schistocytes SLIGHT, Sodium Level 135, Potassium Level 3.6, Chloride Level 107, Carbon Dioxide Level 19L, Anion Gap 9, Blood Urea Nitrogen 11, Creatinine 0.54L, Estimat Glomerular Filtration Rate > 60, BUN/Creatinine Ratio 20, Glucose Level 95, Calcium Level 6.6L Microbiology 03/05/20 Blood Culture - Final, Complete No growth 03/04/20 MRSA Screen - Final, Complete MRSA not isolated Assessment/Plan Assessment/Plan Assessment/Plan Elevated WBC - CXR shows mild atelectasis Hypokalemia - resolved Anemia - S/P transfuse 2 units PRBC 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 D/C'd arellano but pt is not urinating much; normal amount in bladder seen with b ladder scan. Clinical Quality Measures DVT/VTE Risk/Contraindication: Risk Factor Score Per Nursin RFS Level Per Nursing on Admit: 4+=Very High SHEILA DE OLIVEIRA DO Mar 11, 2020 14:59
--- NOTE | 2020-03-11 15:30 | NUR ---
IRF Evaluation At SW request, this worker met with patient to discuss details of rehabilitation program. It was explained to patient that she meets criteria for admission and the MD accepted her as a patient. Upon completion of program explanation, patient had no questions. Patient asked what her interest is towards admitting, her response: "I don't know." This worker indicated a follow-up tomorrow morning.
[2020-03-11] MEDS: meTOprolol TARTRATE 50 MG (LOPRESSOR) TAB PO SCH (22:04)
[2020-03-12] MEDS: LACTATED RINGERS 1,000 ML IV SCH ×2 (03:12→17:47)
[2020-03-12 04:56] VITALS: BP 123/85
[2020-03-12 05:51] LABS: BASOPHILS % (AUTO) 0 % (0-10); EOSINOPHILS # (AUTO) 0.3 10^3/uL (0.0-0.3); EOSINOPHILS % (AUTO) 1 % (0-10); HEMATOCRIT 23 % (35-52); HEMOGLOBIN 7.9 G/DL (11.5-16.0); LYMPHOCYTES # (AUTO) 1.2 X 10^3 (1.0-4.0); LYMPHOCYTES % (AUTO) 6 % (12-44); MEAN CORPUSCULAR HEMOGLOBIN 26 PG (25-34); MEAN CORPUSCULAR HGB CONC 34 G/DL (32-36); MEAN CORPUSCULAR VOLUME 76 FL (80-99); MONOCYTES # (AUTO) 1.7 X 10^3 (0.0-1.0); MONOCYTES % (AUTO) 8 % (0-12); NEUTROPHILS # (AUTO) 18.1 X 10^3 (1.8-7.8); NEUTROPHILS % (AUTO) 85 % (42-75); PLATELET COUNT 382 10^3/uL (130-400); RED CELL DISTRIBUTION WIDTH 21.8 % (10.0-14.5); WHITE BLOOD COUNT 21.3 10^3/uL (4.3-11.0)
[2020-03-12 06:15] LABS: CHLORIDE 103 MMOL/L (98-107)
[2020-03-12 06:16] LABS: SODIUM 131 MMOL/L (135-145)
[2020-03-12 06:17] LABS: CALCIUM 6.7 MG/DL (8.5-10.1); GLUCOSE 88 MG/DL (70-105)
[2020-03-12 06:19] LABS: CARBON DIOXIDE 19 MMOL/L (21-32)
[2020-03-12 06:21] LABS: GFR ESTIMATED > 60
[2020-03-12 06:22] LABS: BUN/CREATININE RATIO 23
[2020-03-12] MEDS: MAGNESIUM 1 GM/100 ML IVPB 100 ML IV SCH (06:31)
[2020-03-12] MEDS: KCL 20 MEQ TAB (K-DUR) PO SCH (06:32)
--- NOTE | 2020-03-12 06:39 | NUR ---
PT HAD WEIGHT INCREASE OF [address] DE OLIVEIRA NOTIFIED OF WEIGHT GAIN. NO NEW ORDERS AT THIS TIME.
[2020-03-12 08:00] VITALS: BP 126/82
[2020-03-12] MEDS: RT-ALBUTEROL SULF 2.5 MG/3 ML PRE-MIX VIAL INH SCH ×2 (08:13→18:32)
[2020-03-12] MEDS: ASPIRIN 81 MG CHEW (CHILDREN'S ASA) PO SCH (08:56)
[2020-03-12] MEDS: meTOprolol TARTRATE 50 MG (LOPRESSOR) TAB PO SCH ×2 (08:56→20:41)
[2020-03-12] MEDS: PANTOPRAZOLE 40 MG (PROTONIX) VIAL IVP SCH (08:56)
[2020-03-12] MEDS: CLOPIDOGREL 75 MG (PLAVIX) TABLET PO SCH (08:56)
--- NOTE | 2020-03-12 09:30 | NUR ---
IRF Met with patient this morning as a follow-up to prior discussion. Patient became tearful and stating she is unsure if she would like to proceed with admission. Re-explanation of rehab program benefits provided. Notified SW of above information. Will continue to follow.
--- NOTE | 2020-03-12 11:29 | Physical Therapy Daily Note ---
PT Daily Note-Current Subjective Patient in bed pre tx, agrees to PT, has 3/10 pain in abdomen. Will be co- treating with OT due to poor patient mobility, strength, endurance, increased pain, anxiety, and patient fear of movement. Appearance Patient in recliner post tx with nurse call, phone, tray, all needs met, legs elevated. Mental Status Patient Orientation: Person, Place, Situation Attachments: IV Transfers SCALE: Activities may be completed with or without assistive devices. 2-Vgzqhxpcgw-nouyhjg completes the activity by him/herself with no assistance from a helper. 5-Set-up or Clean-up Assistance-helper sets up or cleans up; patient completes activity. [place] assists only prior to or following the activity. 4-Supervision or Touching Assistance-helper provides verbal cues and/or touching/steadying and/or contact guard assistance as patient completes activ ity. Assistance may be provided throughout the activity or intermittently. 3-Partial/Moderate Assistance-helper does LESS THAN HALF the effort. [place] lifts, holds or supports trunk or limbs, but provides less than half the effort. 2-Substantial/Maximal Assistance-helper does MORE THAN HALF the effort. [place] lifts or holds trunk or limbs and provides more than half the effort. 3-Uhsfpwuue-yhsbxw does ALL the effort. Patient does none of the effort to complete the activity. Or, the assistance of 2 or more helpers is required for the patient to complete the activity. If activity was not attempted, code reason: 7-Patient Refused. 9-Not Applicable-not attempted and the patient did not perform the activity before the current illness, exacerbation or injury. 10-Not Attempted due to Environmental Limitations-(lack of equipment, weather restraints, etc.). 88-Not Attempted due to Medical Conditions or Safety Concerns. Roll Left & Right (QC): 2 Lying to Sitting/Side of Bed(Q: 2 Sit to Stand (QC): 4 Chair/Jsh-rx-Tqfsh Xfer(QC): 4 More assist needed for supine to sit and to scoot to the edge of the bed. Weight Bearing Right Lower Extremity: Right Full Weight Bearing Left Lower Extremity: Left Full Weight Bearing Gait Training Distance: 10'x2 Walk 10 feet (QC): 4 Gait Assistive Device: FWW Patient ambulated to the restroom, sat on toilet, wiped herself when done but then needed assist from OT to help her completely get clean, ambulated to the recliner, CGA, slow, some unsteadiness but no assist needed to recover. Exercises Seated Therapy Exercises: Ankle pumps, Long arc quads, Hip flexion (x10) Seated Reps: 20 Treatments bed mobility and transfers, ambulation, toileting, LE exercise Assessment Current Status: Poor Progress more assist needed for supine to sit, patient crying when sitting on EOB due to fear PT Pleating Machine Operator Goals [facility] Goals PT [facility] Goals Time Frame: Mar 21, 2020 Roll Left & Right (QC): 6 Sit to Lying (QC): 6 Lying-Sitting on Side/Bed(QC): 6 Sit to Stand (QC): 6 Chair/Ssi-us-Ujhcg Xfer(QC): 6 Toilet Transfer (QC): 6 Car Transfer (QC): 6 Does the Patient Walk: Yes Walk 10 feet (QC): 6 Walk 50ft with 2 Turns (QC): 6 Walk 150 ft (QC): 6 Walking 10ft on Uneven Surface: 6 PT Plan Problem List Problem List: Activity Tolerance, Functional Strength, Safety, Balance, Gait, Transfer, Bed Mobility, ROM Treatment/Plan Treatment Plan: Continue Plan of Care Treatment Plan: Bed Mobility, Education, Functional Activity Fern, Functional Strength, Gait, Safety, Therapeutic Exercise, Transfers Treatment Duration: Mar 21, 2020 Frequency: 6 times per week Estimated Hrs Per Day: .25 hour per day Patient and/or Family Agrees t: Yes Safety Risks/Education Patient Education: Gait Training, Transfer Techniques, Correct Positioning, Safety Issues Teaching Recipient: Patient Teaching Methods: Demonstration, Discussion Response to Teaching: Reinforcement Needed Time/GCodes Time In: 1055 Time Out: 1120 Total Billed Treatment Time: 25 Total Billed Treatment 1 visit GT 15' EX 10' Co-treated with OT for the whole '. PT performed LE exercise, ambulation, transfers, OT performed toileting, UE positioning during activity. KEI CRUZ PT Mar 12, 2020 11:29
--- NOTE | 2020-03-12 11:38 | Occupational Ther Daily Note ---
OT Current Status-Daily Note Subjective Pt alert, lying in bed. Pt agrees to therapy. Pt rated pain after session was 3/10. Mental Status/Objective Patient Orientation: Person, Place, Time, Situation Attachments: IV ADL-Treatment Co-treat with PT ([id number])due to pt's medical complexity, low activity tolerance,anxiety and decreased mobility. PT working on bed mobility, transfers, ambulation and B LE strengthening. OT working on ADLs, B UE placement during transfers/ambulation and B UE strengthening. Mod A for supine to EOB. Mod A for sit to stand for toilet transfer. Pt able to reach all areas to cleanse, assist only to check if pt clean. Assist to manipulate gown during hygiene. Pt had small wound area on buttocks, notified nrsg. Pt then was able to push to scoot back in chair 2x's for strengthening. Call light/phone in reach. All needs met in room. Therapy Code Descriptions/Definitions Functional [place] Measure: 0=Not Assessed/NA 4=Minimal Assistance 1=Total Assistance 5=Supervision or Setup 2=Maximal Assistance 6=Modified [place] 3=Moderate Assistance 7=Complete IndependenceSCALE: Activities may be completed with or without assistive devices. 3-Evxsateyse-yyujghq completes the activity by him/herself with no assistance from a helper. 5-Set-up or Clean-up Assistance-helper sets up or cleans up; patient completes activity. [place] assists only prior to or following the activity. 4-Supervision or Touching Assistance-helper provides verbal cues and/or touching/steadying and/or contact guard assistance as patient completes activ ity. Assistance may be provided throughout the activity or intermittently. 3-Partial/Moderate Assistance-helper does LESS THAN HALF the effort. [place] lifts, holds or supports trunk or limbs, but provides less than half the effort. 2-Substantial/Maximal Assistance-helper does MORE THAN HALF the effort. [place] lifts or holds trunk or limbs and provides more than half the effort. 5-Aedqmtiok-xvbqjz does ALL the effort. Patient does none of the effort to complete the activity. Or, the assistance of 2 or more helpers is required for the patient to complete the activity. If activity was not attempted, code reason: 7-Patient Refused. 9-Not Applicable-not attempted and the patient did not perform the activity before the current illness, exacerbation or injury. 10-Not Attempted due to Environmental Limitations-(lack of equipment, weather restraints, etc.). 88-Not Attempted due to Medical Conditions or Safety Concerns. Toileting Hygiene (QC): 3 Toilet Transfer (QC): 3 OT Short Term Goals Short Term Goals Time Frame: Mar 14, 2020 Toileting hygiene: 3 Shower/bathe self: 3 Upper body dressin Lower body dressin OT [facility] Goals Travel Services Professional Goals Time Frame: Mar 21, 2020 Eating (QC): 6 Oral Hygiene (QC): 5 Toileting Hygiene (QC): 5 Shower/Bathe Self (QC): 4 Upper Body Dressing (QC): 5 Lower Body Dressing (QC): 5 On/Off Footwear (QC): 5 Additional Goals: 2-Verbalize Understanding, 3-ImproveStrength/[place] 1=Demonstrate adherence to instructed precautions during ADL tasks. 2=Patient will verbalize/demonstrate understanding of assistive devices/modifications for ADL. 3=Patient will improve strength/tolerance for activity to enable patient to perform ADL's. OT Education/Plan Problem List/Assessment Assessment: Decreased Activ Tolerance, Decreased UE Strength, Impaired Funct Balance, Impaired Self-Care Skills Pt to benefit from skilled OT intervention for ADL training, transfers, strengthening, and home safety education to increase level of independence and allow safe discharge. Discharge Recommendations Plan/Recommendations: Continue POC Treatment Plan/Plan of Care Patient would benefit from OT for education, treatment and training to promote independence in ADL's, mobility, safety and/or upper extremity function for ADL's. Plan of Care: ADL Retraining, Functional Mobility, UE Funct Exercise/Act Treatment Duration: Mar 21, 2020 Frequency: 5 times per week Estimated Hrs Per Day: .25 hour per day Rehab Potential: Fair Time/GCodes Start Time: 10:55 Stop Time: 11:20 Total Time Billed (hr/min): 25 Billed Treatment Time 1 visit-ADL 2 (25 min) LEYDA HOBSON Mar 12, 2020 11:38
[2020-03-12 12:00] VITALS: BP 118/87
--- NOTE | 2020-03-12 12:29 | Progress Note - Surgery ---
Subjective Time Seen by a Provider: 12:01 Subjective/Events-last exam Pt seen and examined, no new complaints. She is tolerating diet and has started to urinate more. Nursing states she has had 33lbs weight gain since she came in. Review of Systems General: No Chills, No Night Sweats; Fatigue, Malaise Pulmonary: No Dyspnea, No Cough Cardiovascular: No: Chest Pain, Palpitations Gastrointestinal: No: Nausea, Vomiting Objective Exam Vital Signs Date Time Temp Pulse Resp B/P (MAP) Pulse Ox O2 Delivery O2 Flow Rate FiO2 03/12/20 12:00 36.3 111 18 118/87 (97) 97 Room Air 03/12/20 08:58 Room Air 03/12/20 08:13 97 Room Air 03/12/20 08:00 36.6 106 18 126/82 (97) 99 Room Air 03/12/20 06:40 111 03/12/20 04:56 37.3 114 18 123/85 (98) 99 Room Air 03/12/20 01:00 110 03/11/20 23:46 36.9 114 20 119/80 (93) 98 Room Air 03/11/20 19:47 37.3 111 16 119/83 (95) 99 Room Air 03/11/20 19:30 Room Air 03/11/20 19:00 114 03/11/20 18:51 99 Room Air 03/11/20 16:10 36.9 103 18 110/74 (86) 99 Room Air 03/11/20 12:49 110 I & O 03/12/20 07:00 Intake Total 1740 ml Output Total 2350 ml Balance -610 ml Capillary Refill : Less Than 3 Seconds General Appearance: No Apparent Distress, Chronically ill HEENT: Moist Mucous Membranes; No Scleral Icterus (L), No Scleral Icterus (R) Respiratory: Lungs Clear, Normal Breath Sounds Cardiovascular: Regular Rate, Rhythm, No Murmur Gastrointestinal: soft, other (inicision is intact. Ileostomy has large amount of output) Skin: Pallor Results Lab Laboratory Tests 03/12/20 05:40: White Blood Count 21.3H, Red Blood Count 3.07L, Hemoglobin 7.9L, Hematocrit 23L, Mean Corpuscular Volume 76L, Mean Corpuscular Hemoglobin 26, Mean Corpuscular Hemoglobin Concent 34, Red Cell Distribution Width 21.8H, Platelet Count 382, Mean Platelet Volume 9.0, Neutrophils (%) (Auto) 85H, Lymphocytes (%) (Auto) 6L, Monocytes (%) (Auto) 8, Eosinophils (%) (Auto) 1, Basophils (%) (Auto) 0, Neutrophils # (Auto) 18.1H, Lymphocytes # (Auto) 1.2, Monocytes # (Auto) 1.7H, Eosinophils # (Auto) 0.3, Basophils # (Auto) 0.0, Sodium Level 131L, Potassium Level 4.0, Chloride Level 103, Carbon Dioxide Level 19L, Anion Gap 9, Blood Urea Nitrogen 14, Creatinine 0.60, Estimat Glomerular Filtration Rate > 60, BUN/Creatinine Ratio 23, Glucose Level 88, Calcium Level 6.7L Microbiology 03/05/20 Blood Culture - Final, Complete No growth 03/04/20 MRSA Screen - Final, Complete MRSA not isolated Assessment/Plan Assessment/Plan Assessment/Plan Elevated WBC - CXR showed mild atelectasis, Will D/C Central line and culture tip Hypokalemia - resolved Anemia - stable S/P transfuse 2 units PRBC 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 Spoke with pt today regarding going down to ARU, I don't think she is going to move enough at home and need her to get stronger. I will also start some IV lasix to see if we can get the fluid off of her; she may start moving some of it on her own now because she is far enough out from surgery. Clinical Quality Measures DVT/VTE Risk/Contraindication: Risk Factor Score Per Nursin RFS Level Per Nursing on Admit: 4+=Very High SHEILA DE OLIVEIRA DO Mar 12, 2020 12:29
[2020-03-12] MEDS ORDERED: FUROSEMIDE 40 MG/4 ML INJ (LASIX) IVP NR (12:30)
--- NOTE | 2020-03-12 13:09 | Cardiology Progress Note ---
Cardiology SOAP Progress Note Subjective: No cardiac complaints. Objective: I&O/Vital Signs 03/12/20 03/12/20 03/12/20 03/12/20 04:56 06:40 08:00 08:13 Temp 37.3 36.6 Pulse 114 111 106 Resp 18 18 B/P (MAP) 123/85 (98) 126/82 (97) Pulse Ox 99 99 97 O2 Delivery Room Air Room Air Room Air 03/12/20 03/12/20 03/12/20 08:58 12:00 12:49 Temp 36.3 Pulse 111 117 Resp 18 B/P (MAP) 118/87 (97) Pulse Ox 97 O2 Delivery Room Air Room Air 03/12/20 00:00 Intake Total 1440 ml Output Total 850 ml Balance 590 ml Constitutional: other (responds appropriately) Respiratory: No accessory muscle use; other (good bilat air entry) Cardiovascular: regular rate-rhythm, S1 and S2, systolic murmur (faint AURA at card base) Gastrointestional: other (post surgical abdomen; we did not attempt palpation; absent bs; NG tube in place) Extremities: No clubbing, No cyanosis; significant edema ( mild to mod bilat LE swelling) Neurologic/Psychiatric: other (able to move all limbs equally) Skin: No rash on exposed areas, No ulcerations on exposed areas Results/Procedures: Labs Laboratory Tests 03/12/20 05:40: White Blood Count 21.3H, Red Blood Count 3.07L, Hemoglobin 7.9L, Hematocrit 23L, Mean Corpuscular Volume 76L, Mean Corpuscular Hemoglobin 26, Mean Corpuscular Hemoglobin Concent 34, Red Cell Distribution Width 21.8H, Platelet Count 382, Mean Platelet Volume 9.0, Neutrophils (%) (Auto) 85H, Lymphocytes (%) (Auto) 6L, Monocytes (%) (Auto) 8, Eosinophils (%) (Auto) 1, Basophils (%) (Auto) 0, Neutrophils # (Auto) 18.1H, Lymphocytes # (Auto) 1.2, Monocytes # (Auto) 1.7H, Eosinophils # (Auto) 0.3, Basophils # (Auto) 0.0, Sodium Level 131L, Potassium Level 4.0, Chloride Level 103, Carbon Dioxide Level 19L, Anion Gap 9, Blood Urea Nitrogen 14, Creatinine 0.60, Estimat Glomerular Filtration Rate > 60, BUN/Creatinine Ratio 23, Glucose Level 88, Calcium Level 6.7L Microbiology 03/05/20 Blood Culture - Final, Complete No growth 03/04/20 MRSA Screen - Final, Complete MRSA not isolated A/P: Assessment/Dx: Sinus tach and leucocytosis, consider systemic infection (managed by Med and Surg Svces) S/p colectomy for intestinal obstruction Marked post-op anemia, managed by the Surgical and Hospitalist Services - received 2 units of 03-09-2020 Hypokalemia, corrected Abnormal ECG, but no evidence of ac [place] CAD, h/o cor stenting at [facility] in Oct 2019. Last card cath on 03/05/20: patent stents in the mid left circumflex and the mid right coronary arteries. There is moderate diffuse disease of all coronary arteries. There is moderately severe diffuse disease of the distal left anterior descending. A small caliber obtuse marginal has 70% to 80% ostial stenosis. Normal left ventricular end- diastolic pressure. Echo of 03/05/20: LVEF 60-65%, mild to mod TR, RVSP 35-40 mmHg, mild dilatation of LA Post-op hypotension and EMIGDIO 2, resolved Plan: * Beta nadeem * Continue DAPT because of recent coronary stenting * Monitor labs Thank you for your consultation. Please call me if you have any questions. [place] Allen MD, FACP, FACC, FSCAI, FHRS, CCDS Interventional Cardiology Cardiac Electrophysiology Vascular Medicine and Endovascular Interventions Kusum ALLEN MD Mar 12, 2020 13:08
--- NOTE | 2020-03-12 14:11 | NUR ---
CM/SS: Visited with pt as to plan for discharge and consideration for going to Inpatient Rehab. Plan: To be determined. Possible Inpatient Rehab. 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 Pt is encouraged by this worker that she can apply for unemployment. Pt is asked about inpatient rehab and is hesitant to want to go. Pt seems down today and just wants to rest. This worker will check bradley linebacker crewmember to noon. Call to pt's friend. Sandra Perez - [phone]. Discuss options with her as far as pt going to inpatient rehab. She will encourage pt to work more with physical therapy and consider rehab. This worker checks back with pt. Pt reports she would like to stay in her room on 4th floor and work with physical therapy, instead of going to rehab. Dr. Ji is in to speak with pt.as well about rehab. Pt states she wants to stay in her room and not move to 2nd floor. Dr. Ji is able to encourage pt to move around based on her maintaining fluid. Pt seems open to do so. Pt reports she is also open to working physical therapy. Pt is encouraged to work hard with physical therapy. Call to Physical therapy to request that they come and work with pt again today. Pt has previously walked 100feet. Physical Therapy came to see pt an she is able to walk 200ft. This worker will follow up.
--- NOTE | 2020-03-12 14:54 | Physical Therapy Daily Note ---
PT Daily Note-Current Subjective Patient is up in recliner and agrees to PT. Mental Status Patient Orientation: Normal For Age Attachments: IV Transfers SCALE: Activities may be completed with or without assistive devices. 7-Jiobzgsbwx-ylwscqg completes the activity by him/herself with no assistance from a helper. 5-Set-up or Clean-up Assistance-helper sets up or cleans up; patient completes activity. [place] assists only prior to or following the activity. 4-Supervision or Touching Assistance-helper provides verbal cues and/or touching/steadying and/or contact guard assistance as patient completes activity. Assistance may be provided throughout the activity or intermittently. 3-Partial/Moderate Assistance-helper does LESS THAN HALF the effort. [place] lifts, holds or supports trunk or limbs, but provides less than half the effort. 2-Substantial/Maximal Assistance-helper does MORE THAN HALF the effort. [place] lifts or holds trunk or limbs and provides more than half the effort. 5-Xyyhlmbct-hvitse does ALL the effort. Patient does none of the effort to complete the activity. Or, the assistance of 2 or more helpers is required for the patient to complete the activity. If activity was not attempted, code reason: 7-Patient Refused. 9-Not Applicable-not attempted and the patient did not perform the activity before the current illness, exacerbation or injury. 10-Not Attempted due to Environmental Limitations-(lack of equipment, weather restraints, etc.). 88-Not Attempted due to Medical Conditions or Safety Concerns. Sit to Stand (QC): 4 Weight Bearing Right Lower Extremity: Right Full Weight Bearing Left Lower Extremity: Left Full Weight Bearing Gait Training Does the Patient Walk?: Yes Distance: 200' Walk 10 feet (QC): 4 Walk 50 ft with 2 Turns(QC): 4 Walk 150 ft (QC): 4 Gait Assistive Device: FWW slow, steady gait sequence/VC's for body placement in FWW Assessment Patient tolerated treatment well and has increased distance with gait training. PT to increase activity as tolerated by patient. Patient does need much e ncouragement to participate with PT. PT educated patient on importance of actively participating to improve current LOF to avoid possible negative side effects of not. Patient voices understanding. PT Prison Goals Strategy Specialist Goals PT Strategy Specialist Goals Time Frame: Mar 21, 2020 Roll Left & Right (QC): 6 Sit to Lying (QC): 6 Lying-Sitting on Side/Bed(QC): 6 Sit to Stand (QC): 6 Chair/Qfl-lx-Epoez Xfer(QC): 6 Toilet Transfer (QC): 6 Car Transfer (QC): 6 Does the Patient Walk: Yes Walk 10 feet (QC): 6 Walk 50ft with 2 Turns (QC): 6 Walk 150 ft (QC): 6 Walking 10ft on Uneven Surface: 6 PT Plan Treatment/Plan Treatment Plan: Continue Plan of Care Treatment Plan: Bed Mobility, Education, Functional Activity Fern, Functional Strength, Gait, Safety, Therapeutic Exercise, Transfers Treatment Duration: Mar 21, 2020 Frequency: 6 times per week Estimated Hrs Per Day: .25 hour per day Patient and/or Family Agrees t: Yes Time/GCodes Time In: 1430 Time Out: 1445 Total Billed Treatment Time: 15 Total Billed Treatment 1 visit GT 15 min PHIL GERBER PT Mar 12, 2020 14:54
[2020-03-12 16:00] VITALS: BP 122/77
[2020-03-12 20:00] VITALS: BP 113/78
[2020-03-12 23:54] VITALS: BP 118/74
[2020-03-13 03:58] VITALS: BP 124/76
[2020-03-13 06:01] LABS: BASOPHILS % (AUTO) 0 % (0-10); EOSINOPHILS # (AUTO) 0.3 10^3/uL (0.0-0.3); EOSINOPHILS % (AUTO) 1 % (0-10); HEMATOCRIT 25 % (35-52); HEMOGLOBIN 8.4 G/DL (11.5-16.0); LYMPHOCYTES # (AUTO) 1.3 X 10^3 (1.0-4.0); LYMPHOCYTES % (AUTO) 6 % (12-44); MEAN CORPUSCULAR HEMOGLOBIN 26 PG (25-34); MEAN CORPUSCULAR HGB CONC 34 G/DL (32-36); MEAN CORPUSCULAR VOLUME 77 FL (80-99); MONOCYTES # (AUTO) 1.4 X 10^3 (0.0-1.0); MONOCYTES % (AUTO) 7 % (0-12); NEUTROPHILS # (AUTO) 17.9 X 10^3 (1.8-7.8); NEUTROPHILS % (AUTO) 86 % (42-75); PLATELET COUNT 501 10^3/uL (130-400); RED CELL DISTRIBUTION WIDTH 22.7 % (10.0-14.5); WHITE BLOOD COUNT 20.9 10^3/uL (4.3-11.0)
[2020-03-13 06:13] LABS: CHLORIDE 105 MMOL/L (98-107); POTASSIUM 4.2 MMOL/L (3.6-5.0); SODIUM 134 MMOL/L (135-145)
[2020-03-13 06:15] LABS: GLUCOSE 94 MG/DL (70-105)
[2020-03-13] MEDS: MAGNESIUM 1 GM/100 ML IVPB 100 ML IV SCH (06:15)
[2020-03-13] MEDS: KCL 20 MEQ TAB (K-DUR) PO SCH (06:15)
[2020-03-13 06:16] LABS: CARBON DIOXIDE 19 MMOL/L (21-32)
[2020-03-13 06:19] LABS: CREATININE SERUM 0.61 MG/DL (0.60-1.30); GFR ESTIMATED > 60
[2020-03-13 06:20] LABS: BUN/CREATININE RATIO 23
[2020-03-13 08:10] VITALS: BP 137/85
[2020-03-13] MEDS: ASPIRIN 81 MG CHEW (CHILDREN'S ASA) PO SCH (08:26)
[2020-03-13] MEDS: PANTOPRAZOLE 40 MG (PROTONIX) VIAL IVP SCH (08:26)
[2020-03-13] MEDS: CLOPIDOGREL 75 MG (PLAVIX) TABLET PO SCH (08:26)
[2020-03-13] MEDS: meTOprolol TARTRATE 50 MG (LOPRESSOR) TAB PO SCH (08:26)
[2020-03-13] MEDS ORDERED: FUROSEMIDE 40 MG/4 ML INJ (LASIX) IVP SCH (09:00)
[2020-03-13] MEDS: RT-ALBUTEROL SULF 2.5 MG/3 ML PRE-MIX VIAL INH SCH (09:18)
--- NOTE | 2020-03-13 10:22 | Discharge Inst-Surgical ---
Discharge Inst-Surgical Depart Medication/Instructions New, Converted or Re-Newed RX: Other (pt being transferred to in rehab) Patient Instructions Follow up Appt: Make appointment for 2 weeks. [phone] Instructions: No lifting greater than 20 pounds. No strenuous activity. May shower in 24 hours, no tub bath or soaking. Use incentive spirometer at home as directed. No Smoking Skin/Wound Care: Bandage changes as needed for midline. Ileostomy care and supplies. Symptoms to Report: Appetite Changes, Extremity Discoloration, Numbness/Tingling, Swelling Increased, Bleeding Excessive, Eyesight Changes, Pain Increased, Urine Color Change, Constipation(Persistent), Fever over 101 degree F, Pain/Pressure in chest, Urinating Difficulty, Cough Up/Vomit Blood, Heart Beat Irreg/Pounding, Pain/Pressure in jaw, Cramps in feet or legs, Lightheadedness, Pain/Pressure in shoulder, Diarrhea(Persistent), Memory Changes Suddenly, Questions/Concerns, Weight gain consecutive days, Dizziness/Fainting, Nausea/Vomiting, Shortness of Breath, Weight gain over 2 pounds If questions or concerns contact your physician Or seek help at emergency department. Activity Activity as Tolerated: Yes Activity Instructions: Avoid Stress to Incision Driving Instructions: No Driving/Refer to Diet Discharge Diet: No Restrictions (increased fluids, especially ones with electrolytes) If Any Problems/Questions/Issu: Contact Your Physician, Go to Emergency Room Skin/Wound Care Infection Signs and Symptoms: Increased Redness, Foul Odor of Wound, Increased Drainage, Skin Itchy or Has a Rash, Increased Swelling, Temperature Above 101 F Bathing Instructions: Shower Stitches/[place]/Dermabond Dis: Care of SHEILA Rodriguez DO Mar 13, 2020 10:22
[2020-03-13] MEDS: LACTATED RINGERS 1,000 ML IV SCH (10:26)
--- NOTE | 2020-03-13 10:26 | Progress Note - Surgery ---
Subjective Time Seen by a Provider: 09:40 Subjective/Events-last exam Pt seen, still appears weak and is not moving much. Pain is controlled. Review of Systems General: No Chills, No Night Sweats Pulmonary: No Dyspnea, No Cough Cardiovascular: No: Chest Pain, Palpitations Objective Exam Vital Signs Date Time Temp Pulse Resp B/P (MAP) Pulse Ox O2 Delivery O2 Flow Rate FiO2 03/13/20 09:20 95 Room Air 03/13/20 08:10 36.8 115 18 137/85 (102) 100 Room Air 03/13/20 08:00 100 Room Air 03/13/20 06:44 103 03/13/20 03:58 37.0 106 20 124/76 (92) 98 Room Air 03/13/20 01:00 105 03/12/20 23:54 36.7 107 18 118/74 (89) 99 Room Air 03/12/20 20:00 37.2 120 18 113/78 (90) 99 Room Air 03/12/20 20:00 Room Air 03/12/20 19:00 121 03/12/20 18:32 95 Room Air 03/12/20 16:00 37.2 118 20 122/77 (92) 98 Room Air 03/12/20 12:49 117 03/12/20 12:00 36.3 111 18 118/87 (97) 97 Room Air I & O 03/13/20 07:00 Intake Total 2660 ml Output Total 3700 ml Balance -1040 ml Capillary Refill : Less Than 3 Seconds General Appearance: No Apparent Distress, Chronically ill HEENT: Moist Mucous Membranes; No Scleral Icterus (L), No Scleral Icterus (R) Respiratory: Lungs Clear, Normal Breath Sounds Cardiovascular: Regular Rate, Rhythm, No Murmur Gastrointestinal: soft, other (inicision is intact. Ileostomy has large amount of output) Extremity: Pedal Edema (+2-3) Skin: Pallor Results Lab Laboratory Tests 03/13/20 05:30: White Blood Count 20.9H, Red Blood Count 3.23L, Hemoglobin 8.4L, Hematocrit 25L, Mean Corpuscular Volume 77L, Mean Corpuscular Hemoglobin 26, Mean Corpuscular Hemoglobin Concent 34, Red Cell Distribution Width 22.7H, Platelet Count 501H, Mean Platelet Volume 9.0, Neutrophils (%) (Auto) 86H, Lymphocytes (%) (Auto) 6L, Monocytes (%) (Auto) 7, Eosinophils (%) (Auto) 1, Basophils (%) (Auto) 0, Neutrophils # (Auto) 17.9H, Lymphocytes # (Auto) 1.3, Monocytes # (Auto) 1.4H, Eosinophils # (Auto) 0.3, Basophils # (Auto) 0.0, Sodium Level 134L, Potassium Level 4.2, Chloride Level 105, Carbon Dioxide Level 19L, Anion Gap 10, Blood Urea Nitrogen 14, Creatinine 0.61, Estimat Glomerular Filtration Rate > 60, BUN/Creatinine Ratio 23, Glucose Level 94, Calcium Level 7.0L Microbiology 03/05/20 Blood Culture - Final, Complete No growth 03/04/20 MRSA Screen - Final, Complete MRSA not isolated Assessment/Plan Assessment/Plan Assessment/Plan Elevated WBC - CXR showed mild atelectasis, Will D/C Central line and culture tip. 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 Clinical Quality Measures DVT/VTE Risk/Contraindication: Risk Factor Score Per Nursin RFS Level Per Nursing on Admit: 4+=Very High SHEILA DE OLIVEIRA DO Mar 13, 2020 10:26
[2020-03-13] MEDS: fentaNYL INJECTION 100 MCG/2 ML AMP IVP PRN (10:30)
--- NOTE | 2020-03-13 10:54 | NUR ---
CM/SS: Visited with pt as to her going to Inpatient Rehab on today. Plan: Pt will go to Inpatient Rehab today. Summary: Pt told today that Inpatient Rehab can take her and she can go today. She requested that she have come clothes. This worker was making arrangements to get pt clothes, and Inpatient Rehab staff indicated that she did not need to get dressed, as they would get her dressed once on the floor. Pt was not really happy about that. Pt requested that this worker call her friend Sandra Perez and let her know that she is being moved to rehab on today. Call to Sandra Perez [phone] friend of pt. She is notified that pt is moving to Inpatient Rehab on today.
--- NOTE | 2020-03-13 11:00 | NUR ---
REPORT CALLED TO ARU RIAN ETIENNE. PT/OT HERE TO TAKE PATIENT TO ROOM 225.
[2020-03-13 11:05] VITALS: BP 137/85
--- NOTE | 2020-03-16 08:53 | Physician Query Clarification ---
PQ-Further Specificity Admission/Discharge Admission Date: Mar 04, 2020 at 20:27 Discharge Date: Mar 13, 2020 at 11:05 The medical record reflects the following clinical scenario: History/Risk Factors: Volvulus w/ obstruction and ischemic bowel, intraabdominal sepsis, Clinical Findings: Troponin 1.793 Treatment: monitor Question: Can you further specify elevated troponin secondary to sepsis per the clinical indicators above? Please document a response in the Progress Notes or Discharge Summary. Cardiology was consulted please defer this question to them. PHYSICIAN RESPONSE Can you specify per above: Other, explanation/clinical finding Explanation/Clinical Findings Cardiology was consulted please defer this question to them. Please remember a lack of response to the above will prompt a phone page by CDI/Coding staff. In responding to this query, please exercise your independent professional judgment. The purpose of this communication is to more accurately reflect the complexity of your patients condition. The fact that a question is asked does not imply that any particular answer is desired or expected. Thank you for your timely response to this clarification. Requestors name: Ranjana THIS PHYSICIAN QUERY FORM IS A PERMANENT PART OF THE MEDICAL RECORD RANJANA YEE Mar 16, 2020 08:53 ATNA ZHAO DO March 31, 2020 10:43
--- NOTE | 2020-03-16 08:57 | Physician Query Clarification ---
PQ-Further Specificity Admission/Discharge Admission Date: Mar 04, 2020 at 20:27 Discharge Date: Mar 13, 2020 at 11:05 The medical record reflects the following clinical scenario: History/Risk Factors: volvulus with obstruction and ischemic bowel Clinical Findings: Hgb 6.7 Treatment: Transfused 2 units Question: Can you further specify the anemia per the clinical indicators above? Please document a response in the Progress Notes or Discharge Summary. 1. Anemia d/t acute blood loss 2. Anemia - dilutional 3. Other, with explanation of the clinical findings. 4. Clinically undetermined, no explanation for the clinical findings. PHYSICIAN RESPONSE Can you specify per above: Other, explanation/clinical finding Explanation/Clinical Findings Pt had some blood loss from surgery but it was not enough to bring her down to 6.7. Some of this was previously standing anemia of unknown origin and some was dilutional. Please remember a lack of response to the above will prompt a phone page by CDI/Coding staff. In responding to this query, please exercise your independent professional judgment. The purpose of this communication is to more accurately reflect the complexity of your patients condition. The fact that a question is asked does n ot imply that any particular answer is desired or expected. Thank you for your timely response to this clarification. Requestors name: Ranjana THIS PHYSICIAN QUERY FORM IS A PERMANENT PART OF THE MEDICAL RECORD RANJANA YEE Mar 16, 2020 08:57 SHEILA DE OLIVEIRA DO Mar 16, 2020 10:10
--- NOTE | 2020-03-31 11:17 | Discharge Summary ---
Diagnosis/Chief Complaint Date of Admission Mar 04, 2020 at 20:27 Date of Discharge Mar 13, 2020 at 11:05 Discharge Date: Mar 13, 2020 Admission Diagnosis Admission Diagnosis Sigmoid Volvulus, Hyponatremia, CAD, EMIGDIO, UTI Discharge Diagnosis Sigmoid Volvulus, Hyponatremia, CAD, EMIGDIO, UTI Ischemic bowel, incarcerated umbilical hernia Debility Reason Hospital Visit Surgery was asked to admit pt secondary to Sigmoid Volvulus. HPI per ED: Patient presents from [facility] where she was seen to arrival for abdominal pain. Patient complains of having 2 weeks of constipation, not relieved by taking MiraLAX. History of constipation, but never this bad. States that yesterday her abdomen became much larger. States that she has lost her appetite, although she is still drinking. She does have some nausea but has not been vomiting. Denies any chest pain, shortness of air, cough or fever. Denies any recent illness or known exposure to COVID-19 When I spoke with pt kiana in the ER she stated she has not really been able to eat much over past 2 weeks. She has not had a BM, but still is passing some flatus. States her belly is not normally this big and reports her pain as 10 out of 10 only helped by pain meds. Movements and bouncing around in the ambulance made pain worse. Pain is all over her abdomen and does not really radiate anywhere. She describes the pain as constant dull ache with occasional sharp shooting pains. Discharge Summary Procedures: Cardiac Catheterization Sub-Total Colectomy with end Ileostomy Attempted Colonoscopy Consultations Cardiology Pulmonary/Critical Care PT/OT Discharge Physical Examination Allergies: Coded Allergies: No Known Drug Allergies (Unverified , 11/11/19) General Appearance: Alert, Oriented X3, No Acute Distress, Other (weak) Respiratory: Clear to Auscultation Cardiovascular: Regular Rate Abdominal: Soft, Other (ostomy, pink and functioning) Hospital Course Patient is a 54-year-old female who presented with severe abdominal distention and pain. She had a history of recent OR and coronary stenting 4 months ago. An attempted decompressive colonoscopy was performed the night she came in however upon entering noted ischemic bowel and she was immediately switched to a exploratory laparotomy and subtotal colectomy was performed. Cardiology was c onsulted and a catheterization was done because of inability rule out OR. As well, pulmonary/critical care were consulted to help with acute respiratory failure and vent management. Patient spent 2 days in the ICU was able to be weaned off the vent, took a day or so for the ostomy to start working and she became very edematous because of all the fluid boluses she was given. Patient slowly improved, but very slowly; it took a week to finally get all the fluid off she was having trouble moving and physical therapy and occupational therapy were consulted. The ostomy started functioning, we started getting her pain under control, she was told to use incentive spirometer and encouraged to ambulate but she was having a very hard time doing this. Therefore on March 13 she was discharged to inpatient rehabilitation unit. Discharge Instructions to patient/family Please see electronic discharge instructions given to patient. Discharge Medications Reviewed and agree with Discharge Medication list on patient's Discharge Instruction sheet Clinical Quality Measures DVT/VTE Risk/Contraindication: Risk Factor Score Per Nursin RFS Level Per Nursing on Admit: 4+=Very High SHEILA DE OLIVEIRA DO March 31, 2020 11:17
--- NOTE | 2020-04-02 11:23 | Physician Query Clarification ---
PQ-Further Specificity Admission/Discharge Admission Date: Mar 04, 2020 at 20:27 Discharge Date: Mar 13, 2020 at 11:05 The medical record reflects the following clinical scenario: History/Risk Factors: Volvulus w/ obstruction and ischemic bowel, intraabdominal sepsis, Clinical Findings: Troponin 1.793 Treatment: monitor Question: Can you further specify elevated troponin secondary to sepsis per the clinical indicators above? Please document a response in the Progress Notes or Discharge Summary. 1. Type 2 [place] 2. Elevated troponin etiology undetermined 3. Other, with explanation of the clinical findings. 4. Clinically undetermined, no explanation for the clinical findings. PHYSICIAN RESPONSE Can you specify per above: 1 Please remember a lack of response to the above will prompt a phone page by CDI/Coding staff. In responding to this query, please exercise your independent professional judgment. The purpose of this communication is to more accurately reflect the complexity of your patients condition. The fact that a question is asked does not imply that any particular answer is desired or expected. Thank you for your timely response to this clarification. Requestors name: Ranjana THIS PHYSICIAN QUERY FORM IS A PERMANENT PART OF THE MEDICAL RECORD RANJANA YEE April 02, 2020 11:23 VI KO MD FACP FAC [facility] April 02, 2020 16:58
[2020-04-05] MEDS ORDERED: METO50TA15 PO ×2 (18:05)
[2020-04-05] MEDS ORDERED: OXYC5TAB96 PO ×2 (18:05)
[2020-04-05] MEDS ORDERED: ASPI-983 PO ×2 (18:05)
[2020-04-05] MEDS ORDERED: ALPR0.254 PO ×2 (18:05)
[2020-04-05] MEDS ORDERED: PANT40TA3 PO ×2 (18:05)
[2020-04-05] MEDS ORDERED: CLOP75TA28 PO ×2 (18:05)
== END 2020-03-13 11:05 | DRG 329 ==
LOC: EDUNIT# 19:48 → ER 19:50 → ICU 20:27 → 4TH 22:06 → ICU 03-05 01:24 → 4TH 03-08 12:00
PROVIDERS: ADMIT Surgery; ATTEND Surgery
PROC: 4A023N7 Measurement of Cardiac Sampling and Pressure, Left Heart, Percutaneous Approach (ICD-10-PCS; 2020-03-04)
PROC: B2111ZZ Fluoroscopy of Multiple Coronary Arteries using Low Osmolar Contrast (ICD-10-PCS; 2020-03-04)
PROC: 0DBE0ZZ Excision of Large Intestine, Open Approach (ICD-10-PCS; principal; 2020-03-05)
PROC: 0D1 Gastrointestinal System, Bypass (ICD-10-PCS; 2020-03-05)
PROC: 0DJD8ZZ Inspection of Lower Intestinal Tract, Via Natural or Artificial Opening Endoscopic (ICD-10-PCS; 2020-03-05)
DX: K56.2 Volvulus (principal); K42.0 Umbilical hernia with obstruction, without gangrene; K65.1 Peritoneal abscess; J96.00 Acute respiratory failure, unspecified whether with hypoxia or hypercapnia; N17.9 Acute kidney failure, unspecified; E87.1 Hypo-osmolality and hyponatremia; N39.0 Urinary tract infection, site not specified; I25.10 Atherosclerotic heart disease of native coronary artery without angina pectoris; I25.2 Old myocardial infarction; I11.0 Hypertensive heart disease with heart failure; I50.9 Heart failure, unspecified; E78.00 Pure hypercholesterolemia, unspecified; K59.00 Constipation, unspecified; I95.81 Postprocedural hypotension; R79.89 Other specified abnormal findings of blood chemistry; Z95.5 Presence of coronary angioplasty implant and graft; R65.21 Severe sepsis with septic shock; I21.A1 Myocardial infarction type 2; I07.1 Rheumatic tricuspid insufficiency; E87.6 Hypokalemia; D64.9 Anemia, unspecified; J98.11 Atelectasis
CPT/HCPCS: 36415; 71045; 71046; 80048; 80053; 81000; 82805; 82962; 83605; 83735; 84100; 84484; 84703; 85007; 85014; 85018; 85025; 85027; 86850; 86900; 86901; 86920; 87040; 87070; 87081; 88302; 88307; 93005; 93306; 93458; 94002; 94640; 94664; 94760; 94799; 96361; 96374; 99284

== ENCOUNTER 2020-03-13 10:11 | Inpatient (IN) | payer SELFPAY ==
[~2020-03-13] VITALS: Ht 160 cm; Wt 65.6 kg
[~2020-03-13 10:11] MED LIST: APIX5TAB PO; CRV25T PO; SPIR25TA PO
[2020-03-13] MEDS ORDERED: CALCIUM CARBONATE 500 MG (TUMS) TAB.CHEW PO PRN (10:30)
[2020-03-13] MEDS ORDERED: LACTULOSE SYRUP 10GM/15ML (ENULOSE) 30ML UDC PO PRN (10:30)
[2020-03-13] MEDS ORDERED: ALPRAZolam 0.25 MG (XANAX) TAB PO PRN (10:30)
[2020-03-13] MEDS ORDERED: guaiFENesin/CODEINE (ROBITUSSIN AC) 10ML UDC PO PRN (10:30)
[2020-03-13] MEDS ORDERED: MELATONIN 3 MG TABLET PO PRN (10:30)
[2020-03-13] MEDS ORDERED: DOCUSATE SODIUM 100 MG (COLACE) CAP PO PRN (10:30)
[2020-03-13] MEDS ORDERED: diphenhydrAMINE 25 MG TAB (BENADRYL) PO PRN (10:30)
[2020-03-13] MEDS ORDERED: FLEET ENEMA ADULT 1 EA BTL PR PRN (10:30)
[2020-03-13] MEDS ORDERED: BISACODYL 10 MG SUPP (DULCOLAX) PR PRN (10:30)
[2020-03-13] MEDS ORDERED: ONDANSETRON 4 MG (ZOFRAN) ORAL DISSOLVE TAB PO PRN (10:30)
[2020-03-13] MEDS ORDERED: LOPERAMIDE 2 MG (IMODIUM) TABLET PO PRN (10:30)
[2020-03-13 12:00] VITALS: BP 115/83
--- NOTE | 2020-03-13 12:00 | NUR ---
f pt name] admitted to room 225-1, with an admitting diagnosis of debility, on 03/13/20 from med/surg floor via wheelchair, accompanied by pt/ot staff.BK YOUNG introduced to surroundings, call light, bed controls, phone, TV, temperature control, lights, meal times, smoking policy, visitor policy, side rail policy, bathrooms and showers. Patient Rights given to patient in the handbook.BK YOUNG verbalizes understanding that [facility] is not responsible for the loss or damage to any personal effects or valuables that are kept in the patients posession during their hospitalization. The Patient's Care Plans were discussed with the patient as well interdisciplinary Discharge Planning. BK YOUNG verbalizes understanding of Interdisciplinary Patient Education. Patient and/or family were informed about the Rapid Response Team and its purpose. Patient received Patient Rights Booklet, which includes Privacy Act Statement and Data Collection Information Summary.
[2020-03-13] MEDS ORDERED: fentaNYL INJECTION 100 MCG/2 ML AMP IVP PRN (12:45)
[2020-03-13] MEDS ORDERED: PATIENT MAY USE OWN MEDS, ALL PO SCH (12:45)
[2020-03-13] MEDS ORDERED: ONDANSETRON 4 MG/2 ML (SDV) Z0FRAN IVP PRN (12:45)
--- NOTE | 2020-03-13 12:49 | PM&R Post Admission Assessment ---
PM&R HP Date of Visit: Mar 13, 2020 Time of Visit: 12:00 History of Present Illness CC: Debility following SubTotal Colectomy due to volvulus with ischemic bowel with end Ileostomy creation 03/05/20 POD # [address] Ji uncomplicated HPI: This is a very chronically ill and debilitated 54yoWF clinic patient of Heide Rhodes who presents to the IRF unit in need of aggressive therapy in order to regain function of ADL's and stamina following an extensive and complex hospital course beginning 03/05/20 for abdominal pain which resulted in subtotal colectomy and end ileostomy. Patient had a recent coronary stent placed at [facility] 4 months ago and required a repeat cath here at [facility] due to refractory hypotension while in ICU in post op status but this revealed diffuse and moderate CAD but patent stents in place. Patient has had 30# weight gain during the hospital course and IV Lasix has been started to start diuresing. Dr Allen has seen the patient today and tachycardia remains as a result of her complex medical issues and recent decompensation. Patient has hirsutism noted on exam and I have reviewed labs which remain abnormal with elevated wbc and electrolyte abnormalities which will be monitored closely during her IRF stay. Patient is a poor historian at this time and can't really tell me much about her PMH. I logged into [facility] EMR and did not see any visit to [facility] in the past 1 year for stents. Patient meets IRF criteria and does not have a qualifying 60% diagnosis. Patient will be admitted to IRF due to current COVID-19 crisis. This patient is an appropriate ARU 40% patient, who during this COVID emergency, requires the admission to acute rehab. Past [id number] Hx Past Med/Social Hx: Reviewed Nursing Past Med/Soc Hx, Reviewed and Corrections made Patient Social History Marrital Status: cohabiting Employed/Student: unemployed Alcohol Use: Denies Use Smoking Status: Former Smoker 2nd Hand Smoke Exposure: No Recent Foreign Travel: No Contact w/other who traveled: No Recent Hopitalizations: No Recent Infectious Disease Expo: No Seasonal Allergies Seasonal Allergies: No Past Medical History Surgeries: Abdominal (03/05/20 subtotal colectomy), Cardiac, Coronary Stent Currently Using CPAP: No Currently Using BIPAP: No Cardiac: Heart Attack, High Cholesterol, Hypertension Psychosocial: Sleep Difficulties, Anxiety, Depression Family History Hypertension, Other Conditions/Hx PM&R Allergy/Meds/Data Review Allergies Coded Allergies: No Known Drug Allergies (Unverified , 11/11/19) Home Medications Scheduled Apixaban (Eliquis), 5 MG PO BID, (Reported) Carvedilol (Coreg), 25 MG PO BID, (Reported) Spironolactone (Aldactone), 25 MG PO DAILY, (Reported) Current Medications Current Medications Reviewed Review of Systems Constitutional: see HPI, dizziness, malaise, weakness EENTM: no symptoms reported Respiratory: dyspnea on exertion, short of breath Cardiovascular: edema, palpitations Gastrointestinal: abdominal pain, loss of appetite, nausea Genitourinary: decreased output Musculoskeletal: back pain, joint pain, muscle pain, muscle cramps Skin: no symptoms reported Psychiatric/Neurological: Anxiety, Depressed Physical Exam Physical Exam Vital Signs Vital Signs - First Documented 03/13/20 12:00 Temp 37.4 Pulse 127 Resp 18 B/P (MAP) 115/83 Pulse Ox 97 O2 Delivery Room Air Capillary Refill : Height, Weight, BMI Height: '" Weight: lbs. oz. kg; 34.45 BMI Method: General Appearance: WD/WN, Anxious, Chronically ill, Mild Distress Eyes: Bilateral Eye Normal Inspection, Bilateral Eye PERRL HEENT: PERRL/EOMI, Normal ENT Inspection, Pharynx Normal Neck: Full Range of Motion, Normal Inspection, Non Tender, Supple, Carotid Bruit Respiratory: Chest Non Tender, Lungs Clear, No Accessory Muscle Use, No Respiratory Distress, Decreased Breath Sounds Cardiovascular: Regular Rate, Rhythm, No Gallop, No JVD, No Murmur, Normal Peripheral Pulses Gastrointestinal: Normal Bowel Sounds, No Organomegaly, No Pulsatile Mass, Soft, Tenderness Back: Normal Inspection, No CVA Tenderness, No Vertebral Tenderness Extremity: Normal Capillary Refill, Normal Inspection, Normal Range of Motion, Non Tender, No Calf Tenderness, Pedal Edema (2+ legs) Neurologic/Psychiatric: Alert, Oriented x3, No Motor/Sensory Deficits, Normal Mood/Affect, customer service advocate II-XII Norm as Tested, Motor Weakness (generalized all extremties) Skin: Normal Color, Warm/Dry Lymphatic: No Adenopathy PM&R Medical Assessment & Plan REHAB/MEDICAL ASSESSMENT AND PLAN: REHAB IMPAIRMENT GROUP: Debility ETIOLOGIC DIAGNOSIS: Debility following emergent subtotal colectomy with ileostomy The comorbidities that impact the patients function and/or functional outcome by: chronic illness, anasarca from volume overload, recent CAD stent REHAB PLAN: The patient is being admitted to our comprehensive inpatient rehabilitation facility and can tolerate the intensity of service consisting of at least: 180 minutes of therapy a day, 5 out of 7 days a week Rehab treatment will consist of: PT OT will both focus on regaining ADL's and stamina for ambulation and work to conserve energy on long recovery from critical illness The patient/family has a good understanding of our discharge process and will benefit from an interdisciplinary inpatient rehabilitation program. The patient has potential to make improvement and is in need of at least two of the following multidisciplinary therapies including but not limited to physical, occupational, speech, and prosthetics and orthotics. Additionally the patient will need services from respiratory, nutritional services, wound care, psychology, etc. (Customize this to each patient). Given the patients complex condition and risk of further medical complications, rehabilitation services cannot be safely or effectively provided at a lower level of care such as a shelter facility. BARRIERS TO DISCHARGE: Lives alone? ESTIMATED LOS: 7 days DISPOSITION: Home RELEVANT CHANGES SINCE PREADMISSION SCREENING: I have compared the patients medical and functional status at the time of the preadmission screening and there are: no changes PROGNOSIS: Good REHABILITATION GOALS: 1. PT OT will both focus on regaining ADL's and stamina for ambulation and work to conserve energy on long recovery from critical illness All the above goals were reviewed with the patient and he/she is in agreement. By signing this document, I acknowledge that I have personally performed a full physical examination on this patient within 24 hours of admission to this inpatient rehabilitation facility and have determined the patient to be able to tolerate the above course of treatment at an intensive level for a reasonable period of time. I will be completing a detailed individualized Plan of Care for this patient by day #4 of the patients stay based upon the Preadmission Screen, the Post-Admission Evaluation, and the therapy evaluations. Admission Dx/Comorbidities: (1) S/P colectomy ICD Codes: Z90.49 - Acquired absence of other specified parts of digestive tract (2) Ileostomy in place ICD Codes: Z93.2 - Ileostomy status (3) Hirsutism ICD Codes: L68.0 - Hirsutism (4) Tachycardia ICD Codes: R00.0 - Tachycardia, unspecified (5) Anasarca ICD Codes: R60.1 - Generalized edema (6) Anemia ICD Codes: D64.9 - Anemia, unspecified (7) Debility ICD Codes: R53.81 - Other malaise (8) Sigmoid volvulus ICD Codes: K56.2 - Volvulus (9) Leukocytosis ICD Codes: D72.829 - Elevated white blood cell count, unspecified (10) Acute kidney injury ICD Codes: N17.9 - Acute kidney failure, unspecified (11) Hyponatremia ICD Codes: E87.1 - Hypo-osmolality and hyponatremia (12) Coronary artery disease ICD Codes: I25.10 - Atherosclerotic heart disease of [place] coronary artery without angina pectoris (13) Abdominal pain Status: Acute ICD Codes: R10.9 - Unspecified abdominal pain (14) Elevated troponin ICD Codes: R79.89 - Other specified abnormal findings of blood chemistry (15) S/P cardiac cath ICD Codes: Z98.890 - Other specified postprocedural states SESAR BEEBE DO Mar 13, 2020 12:49
--- NOTE | 2020-03-13 13:06 | Cardiology Progress Note ---
Cardiology SOAP Progress Note Subjective: No cardiac complaints. Objective: I&O/Vital Signs 03/13/20 12:00 Temp 37.4 Pulse 127 Resp 18 B/P (MAP) 115/83 Pulse Ox 97 O2 Delivery Room Air Constitutional: AAO x 3 Respiratory: chest is bilaterally symmetric, lungs clear to auscultation Cardiovascular: regular rate-rhythm, S1 and S2, systolic murmur Gastrointestional: other (recent abdominal surgery, abdominal exam was not done.) Extremities: pedal edema Neurologic/Psychiatric: no motor/sensory deficits, alert, normal mood/affect, oriented x 3 Skin: normal color A/P: Assessment/Dx: Currently in inpatient rehabilitation. Sinus tach and leucocytosis, consider systemic infection (managed by Med and Surg Svces). Okay to DC telemetry. S/p colectomy for intestinal obstruction Marked post-op anemia, managed by the Surgical and Hospitalist Services - received 2 units of 03-09-2020 Hypokalemia, corrected Abnormal ECG, but no evidence of ac [place] CAD, h/o cor stenting at [facility] in Oct 2019. Last card cath on 03/05/20: patent stents in the mid left circumflex and the mid right coronary arteries. There is moderate diffuse disease of all coronary arteries. There is moderately severe diffuse disease of the distal left anterior descending. A small caliber obtuse marginal has 70% to 80% ostial stenosis. Normal left ventricular end- diastolic pressure. Echo of 03/05/20: LVEF 60-65%, mild to mod TR, RVSP 35-40 mmHg, mild dilatation of LA Post-op hypotension and EMIGDIO 2, resolved Plan: * Beta nadeem * Continue DAPT because of recent coronary stenting * Monitor labs Thank you for your consultation. Please call me if you have any questions. Odessa Allen MD, FACP, FACC, [facility], [place] Interventional Cardiology Cardiac Electrophysiology Vascular Medicine and Endovascular Interventions Kusum ALLEN MD Mar 13, 2020 13:06
--- NOTE | 2020-03-13 13:16 | Occupational Therapy Eval ---
OT Evaluation-General/PLF Medical Diagnosis Admission Date Mar 13, 2020 at 11:35 Medical Diagnosis: ischemic bowel obstruction/ resection Onset Date: Mar 04, 2020 Therapy Diagnosis Therapy Diagnosis: Decreased ADL status Precautions Precautions/Isolations: Standard Precautions Referral Physician: Anali Hackett DO Referral Reason: Activity Tolerance, Self Care, Evaluation/Treatment, Strengthening/ROM Medical History Pertinent Medical History: Heart Failure, HTN, [place] Current History Pt admits from [facility], per medical records- "Findings suspicious for obstruction of the colon at the sigmoid level, suspicious for a sigmoid volvulus with obstruction." resection and heart cath completed Reviewed History: Yes Social History Home: Single Level Current Living Status: Alone Pt lives alone, has walk in shower/ standard toilet. Pt states she is going to live with friend upon d/c (states friend has caregiving experience). Pt has not been to friend's home, therefore more info is needed for d/c environment by pt. ADL-Prior Level of Function SCALE: Activities may be completed with or without assistive devices. 1-Byndxqtgrd-giptxbk completes the activity by him/herself with no assistance from a helper. 5-Set-up or Clean-up Assistance-helper sets up or cleans up; patient completes activity. [place] assists only prior to or following the activity. 4-Supervision or Touching Assistance-helper provides verbal cues and/or touching/steadying and/or contact guard assistance as patient completes activity. Assistance may be provided throughout the activity or intermittently. 3-Partial/Moderate Assistance-helper does LESS THAN HALF the effort. [place] lifts, holds or supports trunk or limbs, but provides less than half the effort. 2-Substantial/Maximal Assistance-helper does MORE THAN HALF the effort. [place] lifts or holds trunk or limbs and provides more than half the effort. 2-Wondkkwkg-zyjnbv does ALL the effort. Patient does none of the effort to complete the activity. Or, the assistance of 2 or more helpers is required for the patient to complete the activity. If activity was not attempted, code reason: 7-Patient Refused. 9-Not Applicable-not attempted and the patient did not perform the activity before the current illness, exacerbation or injury. 10-Not Attempted due to Environmental Limitations-(lack of equipment, weather restraints, etc.). 88-Not Attempted due to Medical Conditions or Safety Concerns. ADL PLOF Comments Pt states IND with I/ADL tasks without use of AE. Self Care: Independent Functional Cognition: Independent DME/Equipment: Grab Bars, Shower Occupation: guide Drive Self: No OT Current Status Subjective Pt seen on 4th floor, brought to ARU with OT/ PT assist. Pt denies pain when asked, though specific movements causes pt to halt activities and grimace. Pt alert/ oriented. Very soft spoken, tearful at times. Mental Status/Objective Patient Orientation: Person, Place, Situation Attachments: Telemetry (d/c'd upon admit to ARU ) Current Glasses/Contacts: No Hearing Aids: No Dentures/Partials: Yes Hand Dominance: Left Upper Extremity ROM WFL BUE Upper Extremity Coordination WFL BUE Upper Extremity Sensation WFL BUE Upper Extremity Strength WFL BUE Edema: bilateral LE edema ADL-Treatment Eating (QC): 6 Oral Hygiene (QC): 6 Shower/Bathe Self (QC): 3 (Pt denies shower, pt and nursing states pt took sponge bath this morning. Based on clinical judgment pt would require SBA during showering tasks and min A for thoroughness.) Upper Body Dressing (QC): 5 (s/u) Lower Body Dressing (QC): 3 (min A for threading one LE into pants, able to bring over hips with SBA.) On/Off Footwear (QC): 3 (mod A- pt able to bring one foot over knee to don sock, pt unable to complete following foot, requires mod APt has PEPITO hose donned, would require max A for knee high TEDs) Toileting Hygiene (QC): 4 (SBA in stance per pt report and per clinical judgment ) Other Treatments [id number]: OT evaluation [id number]: PT eval [id number] (50): OT/ PT cotreat: Co-treat rendered due to pts decreased energy/ endurance, medical complexity, decreased balance and increased painful movements. OT focuses on problem solving, pain management, UE movement, and ADLs as PT works on gait, balance, LE movements. 5218-6831 (37): OT/ PT cotreat: Co-treat rendered due to pts decreased energy/ endurance, medical complexity, decreased balance and increased painful movements. OT focuses on problem solving, pain management, UE movement, and ADLs as PT works on gait, balance, LE movements. [id number]: Pt seen on 4th floor. Pt educated on OT role and ARU expectations. Pt denies showering when asked, stating she took one. Pt denies pain, though grimaces during sock donning and moving edge of chair. Pt sit to stand from recliner with CGA, walks from room to elevator with CGA and 2WW wihtout break. OT follows with w/c. Pt completes PT evaluation, walks to room with CGA. Pt completes bed mob with max A for LEs, educated on log roll out of bed (pt requires max Ax2 out of bed, PT works with LE as OT works torso/ UE). Pt completes dressing tasks EOB with fair balance, pt requires assist with LE dress ing tasks due to pain in abdomen. Pt educated on use of utility operator for LE tasks, pt does not return demonstrate at this time. Pt completes multiple sit to stands from EOB and chair, completes with CGA. Pt ambulates to recliner, sits to brush teeth. Pt completes with plans to shave later today, all needs met, call light in reach. 8614-1026: Pt seen in recliner chair, stating 3.5/10 pain in abdomen. Pt agreeable to OT/ PT co-treat. Pt states desire for toileting, sit to stand from recliner CGA, ambulates with 2WW to toilet. Toilet transfer from stand to sit (good control, use of grab bars). Pt toilets, states, "Help," from restroom. Pt 's fluid running out from colostomy bag onto floor. Pt calmed and nursing notified. PT/ OT assisted in clean up and assist with pt positioning (PT assists in stance, OT assists in ADLs including LB dressing and clean-up). Education on AE (dressing stick, sock aide, utility operator) demonstrated to pt for ease of LB dressing tasks. Nursing completes coverage of new colostomy, pt sit to stand from standard toilet with cues for hand positioning on grab bars with CGA. pt stands at walker with good balance with PT CGA, OT assist in clean up. Pt able to lift one leg at a time as OT threads briefs, pt pulls over hips. Pt returns to recliner with all needs met, call light in reach, nursing present. Education OT Patient Education: Correct positioning, Energy conservation, Modified ADL techniques, Purpose of tx/functional activities, Rehab process, Safety issues, Use of adapted equipment Teaching Recipient: Patient Teaching Methods: Demonstration, Discussion Response to Teaching: Verbalize Understanding, Return Demonstration, Reinforcement Needed OT Short Term Goals Short Term Goals Upper body dressin Lower body dressin Putting on/taking off footwear: 5 OT Residential Framing Carpenter Goals Jail Goals Time Frame: March 27, 2020 Eating (QC): 6 Oral Hygiene (QC): 6 Toileting Hygiene (QC): 6 Shower/Bathe Self (QC): 6 Upper Body Dressing (QC): 6 Lower Body Dressing (QC): 6 On/Off Footwear (QC): 6 Additional Goals: 1-Demonstrate ADL Tasks, 2-Verbalize Understanding, 3- ImproveStrength/Fern 1=Demonstrate adherence to instructed precautions during ADL tasks. 2=Patient will verbalize/demonstrate understanding of assistive devices/modifications for ADL. 3=Patient will improve strength/tolerance for activity to enable patient to perform ADL's. OT Education/Plan Problem List/Assessment Assessment: Decreased Activ Tolerance, Dependent Transfers, Edema, Impaired Bed Mobility, Impaired Funct Balance, Impaired I ADL's, Impaired Self-Care Skills Discharge Recommendations Plan/Recommendations: Continue POC Therapy Discharge Recommendati: Home & Family Equpiment Recommendations-D/C: Engineering Consultant, Sock Aide, Dressing Stick Treatment Plan/Plan of Care Treatment,Training & Education: Yes Patient would benefit from OT for education, treatment and training to promote independence in ADL's, mobility, safety and/or upper extremity function for ADL's. Plan of Care: ADL Retraining, Concurrent Therapy, Functional Mobility, Group Exercise/Act as Ind, UE Funct Exercise/Act Treatment Duration: March 27, 2020 Frequency: At least 5 of 7 days/Wk (IRF) Estimated Hrs Per Day: 1.5 hours per day Agreement: Yes Rehab Potential: Good Time/GCodes Start Time: 10:50 (1408) Stop Time: 12:00 (1445) Total Time Billed (hr/min): 97 (10 eval50 cotreat) Billed Treatment Time [id number]: OT evaluation 8701-8990: PT eval 8831-1855 (50): OT/ PT cotreat: Co-treat rendered due to pts decreased energy/ endurance, medical complexity, decreased balance and increased painful movements. OT focuses on problem solving, pain management, UE movement, and ADLs as PT works on gait, balance, LE movements. 4524-5884 (37) OT/ PT cotreat 1, EVM (10) 1, ADL 3 (50) 1, ADL 2 (37) Total: 97 MAISHA DAVENPORT OTR Mar 13, 2020 13:16
--- NOTE | 2020-03-13 13:23 | NUR ---
"RD ASSESSMENT PMHx: HT: hypercholesterolemia; HTN; [place] PT INTERACTION: Pt was awake and pleasant during nutrition follow-up.Pt states she has been eating better since last assessment. Note avg PO intake 31% x3d, per chart review. Pt states no issues with nausea/vomiting/constipation since last assessment. Note pt has ostomy and output avg is 1083ml x4d, per chart review. Note pt not currently on bowel regimen per chart review. Note recent 33# wt gain x9d, per chart review. ABNORMAL NUTRITION-RELATED LAB VALUES LOW: Na 134; Ca 7.0 HIGH: Est. kcal needs: 1385-6096 kcal | 20-25 kcal/kg Est. Pro needs: 70-88 g Pro | 0.8-1.0 g Pro/kg PES STATEMENT: Inadequate oral intake (NI-2.1) related to loss of appetite as evidenced by pt interview | avg PO intake 31% x3d INTERVENTION: Continue with current diet order of DYS2 Mechanically Altered diet. Continue with current supplementation order of Ensure Enlive (vary) with meals TID, for increased kcal intake. Provides 350 kcal and 13 g Pro per serving. Will continue to follow and reassess as pt needs, intake, and status change. MONITOR/EVALUATE: PO Intake; Plan of Care; Hydration Status; Weight Status; Lab Values Camron Rogers, MS, RD, LD"
--- NOTE | 2020-03-13 13:27 | ST Cognitive Linguistic Eval ---
Speech Evaluation-General Medical Diagnosis Colectomy for Intestinal Obstruction Onset Date: Mar 13, 2020 Therapy Diagnosis Therapy Diagnosis: Cognitive-communication Referral Referring Physician: Dr. Hackett Medical History Pertinent Medical History: Heart Failure, HTN, [place] Social History Current Living Status: Alone Speech PLF-Current Status Prior Level of Function Patient lived alone where she was independent for her daily needs. Subjective Patient was cooperative with the cognitive assessment. Language Eval: Auditory Comprehends Simple Yes/No Ques: Functional Indent/Objects Multiple [place]: Functional Ident/Pics in Multiple [place]: Functional Follows 1-Step Commands: Functional Follows Complex Directions: Functional Follows General Conversations: Functional Language Eval: Verbal Language Completes Spontaneous Greeting: Functional Produces Auto, Serial Info: Functional Imitates Simple Words/Phrases: Functional Word Finding: Functional Requests Basic Needs: Functional States Basic Personal Info: Functional Expresses Complex Ideas: Functional Objective Cognitive Domain Attention: WNL Memory: WNL Problem Solving: Functional Executive Functions: WNL Visuospatial Skills: WNL Composite Severity Rating: WNL Clock Drawing Severity Rating: WNL Objective Formal/Standardized Tests [facility] Status ([facility]) Results 29/30, normal range of function Oral Motor/Speech Production Within Normal Limits Impression Patient is a 54 year old female who was admitted to the ARU s/p colectomy for intestinal obstruction. She was given the [facility] with a score of 29/30 obtained. Patient does not require ST services at this time. Speech Patient Assess Expression of Ideas/Wants: Expression (4) Understanding Verbal Content: Understands (4) Brief Interview-Mental Status: Yes Repetition of Three Words: Three (3) Temporal Orientation: Year: Correct (3) Temporal Orientation: Month: Accurate within 5 days(2) Temporal Orientation: Day: Correct (1) Recall : Wear to say "Sock": Yes, no cue required (2) Recall : Color: Yes, after cueing (1) Recall : Bed: Yes, no cue required (2) Memory/Recall Ability: Current season, That he or she is in a hsp/hsp unit Speech-Plan Patient/Family Goals Patient/Family Goals: Patient states she plans to move in with a friend upon hospital discharge. Treatment Plan Speech Therapy Treatment Plan: Discontinue ST Treatment Duration: Mar 13, 2020 Frequency: 1 time per week Estimated Hrs Per Day: .25 hour per day Rehab Potential: Good Barriers to Learning: None identified Pt/Family Agrees to Plan: Yes Safety Risks/Education Teaching Recipient: Patient Teaching Methods: Discussion Response to Teaching: Verbalize Understanding Education Topics Provided: Safety within her room Time Speech Therapy Time In: 13:05 Speech Therapy Time Out: 13:20 Total Billed Time: 15 Billed Treatment Time 1, SPSNDCOMP TABITHA Ch Mar 13, 2020 13:27
--- NOTE | 2020-03-13 13:40 | Physical Therapy Evaluation ---
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 Prior Prior Level of Function SCALE: Activities may be completed with or without assistive devices. 9-Kntkoiwceu-jrkaibz completes the activity by him/herself with no assistance from a helper. 5-Set-up or Clean-up Assistance-helper sets up or cleans up; patient completes activity. [place] assists only prior to or following the activity. 4-Supervision or Touching Assistance-helper provides verbal cues and/or touching/steadying and/or contact guard assistance as patient completes activity. Assistance may be provided throughout the activity or intermittently. 3-Partial/Moderate Assistance-helper does LESS THAN HALF the effort. [place] lifts, holds or supports trunk or limbs, but provides less than half the effort. 2-Substantial/Maximal Assistance-helper does MORE THAN HALF the effort. [place] lifts or holds trunk or limbs and provides more than half the effort. 2-Mnhppavzy-bpiecx does ALL the effort. Patient does none of the effort to complete the activity. Or, the assistance of 2 or more helpers is required for the patient to complete the activity. If activity was not attempted, code reason: 7-Patient Refused. 9-Not Applicable-not attempted and the patient did not perform the activity before the current illness, exacerbation or injury. 10-Not Attempted due to Environmental Limitations-(lack of equipment, weather restraints, etc.). 88-Not Attempted due to Medical Conditions or Safety Concerns. Bed Mobility: 6 Transfers (B,C,W/C): 6 Gait: 6 Indoor Mobility (Ambulation): Independent PT Evaluation-Current Subjective Patient in recliner pre tx, agrees to PT, has no complaints of pain at rest, will be co-treating with OT after evaluation due to poor patient mobility, pain with movement, anxiety with movement, fear of falling, the need to coordinate UE and LE with activity and to decrease chance of falling. Pt/Family Goals to be independent at home Objective Patient Orientation: Person, Place, Situation ROM/Strength ROM Lower Extremities generally slightly limited due to LE edema Strength Lower Extremities 3+/5 gross BLE Sensory Hearing: Functional Sensation Right Lower Extremit: Intact Sensation Left Lower Extremity: Intact Transfers Roll Left to Right (QC): 3 Sit to Lying (QC): 3 Lying to Sitting/Side of Bed(Q: 2 Sit to Stand (QC): 4 Chair/Dfv-dh-Brtxq Xfer(QC): 4 Toilet Transfer (QC): 4 Car Transfer (QC): 3 Patient performs bed mobility with mod assist, supine to sit with max assist, sit to supine with mod assist, sit <-> stand with CGA, transfers with CGA, car transfer mod assist. Patient needs assist with both feet for sit to supine and during car transfer, occasional cues for UE positioning and safety. Gait Does the Patient Walk?: Yes Mode of Locomotion: Walk Anticipated Mode of Locomotion: Walk Walk 10 feet (QC): 4 Walk 50 ft with 2 Turns(QC): 4 Walk 150 ft (QC): 4 Walking 10ft/uneven surface-QC: 4 Distance: 150', 100' Gait Assistive Device: FWW Comments/Gait Description Patient can ambulate 150' with a rolling walker with CGA (including 50' with at least 2 turns of 90 degrees and 10' over an uneven surface). Patient ambulates very slowly, takes short steps, narrow APRIL, takes many standing rest breaks. Wheelchair Training Does the Pt Use a Wheelchair?: No Wheel 50 ft with 2 turns (QC): 9 Wheel 150 ft (QC): 9 Stairs 1 Step (curb) (QC): 88 4 Steps (QC): 88 12 Steps (QC): 88 Attempted to go up one step using a rolling walker but patient could not lift either foot up high enough to get onto the step. Balance Sitting Static: Fair Sitting Dynamic: Fair Standing Static: Fair Standing Dynamic: Fair Picking up an Object (QC): 88 Treatment dressing, grooming. PT assisted with OT during dressing and grooming with transfers, positioning, sitting and standing balance. OT also assisted with positioning and safety during ambulation and transfers. Assessment/Needs Patient has impaired mobility, strength, endurance, balance. Patient has a lot of fear of movement and will often cry after sitting in bed before getting up. Patient is poorly motivated. Rehab Potential: Fair PT Short Term Goals Short Term Goals Time Frame: Mar 20, 2020 Roll Left & Right: 3 Sit to lyin Lying to sitting on side of be: 3 Sit to stand: 4 Chair/jfd-dl-npdeg transfer: 4 Walk 10 feet: 4 Walk 50 feet with two turns: 4 Walk 150 feet: 4 PT Care Home Goals Care Home Goals PT Detective And Intelligence Analyst Goals Time Frame: April 03, 2020 Roll Left & Right (QC): 6 Sit to Lying (QC): 6 Lying-Sitting on Side/Bed(QC): 6 Sit to Stand (QC): 6 Chair/Giz-ug-Szbdp Xfer(QC): 6 Toilet Transfer (QC): 6 Car Transfer (QC): 6 Does the Patient Walk: Yes Walk 10 feet (QC): 6 Walk 50ft with 2 Turns (QC): 6 Walk 150 ft (QC): 6 Walking 10ft on Uneven Surface: 6 1 Step (curb) (QC): 4 4 Steps (QC): 4 12 Steps (QC): 88 Picking up an Object (QC): 88 Wheel 50 feet with 2 turns (QC: 88 Wheel 150 feet: 88 PT Plan Problem List Problem List: Activity Tolerance, Functional Strength, Safety, Balance, Gait, Transfer, Bed Mobility, ROM Treatment/Plan Treatment Plan: Continue Plan of Care Treatment Plan: Bed Mobility, Education, Functional Activity Fern, Functional Strength, Group Therapy, Gait, Safety, Therapeutic Exercise, Transfers Treatment Duration: April 03, 2020 Frequency: At least 5 of 7 days/Wk (IRF) Estimated Hrs Per Day: 1.5 hours per day Patient and/or Family Agrees t: Yes Safety Risks/Education Patient Education: Gait Training, Transfer Techniques, Steps, Correct Positioning, Safety Issues Teaching Recipient: Patient Teaching Methods: Demonstration, Discussion Response to Teaching: Reinforcement Needed Discharge Recommendations Plan Patient will perform bed mobility and transfer training, balance and endurance training, functional strengthening, stair training, gait training, and education, to improve functional mobility and independence at home. Therapy Discharge Recommendati: Home & Family Time/GCodes Time In: 1050 Time Out: 1200 Total Billed Treatment Time: 60 Total Billed Treatment 1 visit EVM 10' GT 20' FA 30' Co-treated with OT for 50', PT eval from [id number], OT eval from 8386-9303, co- treat from [id number]. KEI CRUZ PT Mar 13, 2020 13:40
--- NOTE | 2020-03-13 14:50 | Physical Therapy Daily Note ---
PT Daily Note-Current Subjective Patient in recliner pre tx, agrees to PT, has 3.5/10 pain in abdomen, will be co-treating with OT due to poor patient mobility, endurance, strength, fear of activity and falling, the need to coordinate UE and LE activity. Appearance Patient in recliner post tx with nurse call, phone, tray, all needs met, nurse in room. Mental Status Patient Orientation: Person, Place, Situation Attachments: Colostomy/Ileostomy Transfers SCALE: Activities may be completed with or without assistive devices. 3-Nmgqlsjwgv-sprvawi completes the activity by him/herself with no assistance from a helper. 5-Set-up or Clean-up Assistance-helper sets up or cleans up; patient completes activity. [place] assists only prior to or following the activity. 4-Supervision or Touching Assistance-helper provides verbal cues and/or touching/steadying and/or contact guard assistance as patient completes activity. Assistance may be provided throughout the activity or intermittently. 3-Partial/Moderate Assistance-helper does LESS THAN HALF the effort. [place] lifts, holds or supports trunk or limbs, but provides less than half the effort. 2-Substantial/Maximal Assistance-helper does MORE THAN HALF the effort. [place] lifts or holds trunk or limbs and provides more than half the effort. 0-Zcxcgnduz-qsrrhm does ALL the effort. Patient does none of the effort to complete the activity. Or, the assistance of 2 or more helpers is required for the patient to complete the activity. If activity was not attempted, code reason: 7-Patient Refused. 9-Not Applicable-not attempted and the patient did not perform the activity be fore the current illness, exacerbation or injury. 10-Not Attempted due to Environmental Limitations-(lack of equipment, weather restraints, etc.). 88-Not Attempted due to Medical Conditions or Safety Concerns. Sit to Stand (QC): 4 Chair/Tdr-gh-Taqel Xfer(QC): 4 Toilet Transfer (QC): 3 Patient stands from recliner with CGA, needs to use the restroom, ambulates 10' to the toilet and sits, her iliostomy almost immediately springs a leak all over the floor, cleaned floor and got the nurse, nurse changes and cleans patient while standing with PT and PT assist with balance and safety, then ambulates back to her recliner, OT assists with dressing while PT assists with positioning in standing. Treatments transfers, ambulation, standing balance Assessment Current Status: Poor Progress Patient very fatigued, poor endurance PT Short Term Goals Short Term Goals Time Frame: Mar 20, 2020 Roll Left & Right: 3 Sit to lyin Lying to sitting on side of be: 3 Sit to stand: 4 Chair/jkx-mn-xvoix transfer: 4 Walk 10 feet: 4 Walk 50 feet with two turns: 4 Walk 150 feet: 4 PT Longterm Goals Longterm Goals PT Longterm Goals Time Frame: April 03, 2020 Roll Left & Right (QC): 6 Sit to Lying (QC): 6 Lying-Sitting on Side/Bed(QC): 6 Sit to Stand (QC): 6 Chair/Igd-sv-Osvgw Xfer(QC): 6 Toilet Transfer (QC): 6 Car Transfer (QC): 6 Does the Patient Walk: Yes Walk 10 feet (QC): 6 Walk 50ft with 2 Turns (QC): 6 Walk 150 ft (QC): 6 Walking 10ft on Uneven Surface: 6 1 Step (curb) (QC): 4 4 Steps (QC): 4 12 Steps (QC): 88 Picking up an Object (QC): 88 Wheel 50 feet with 2 turns (QC: 88 Wheel 150 feet: 88 PT Plan Problem List Problem List: Activity Tolerance, Functional Strength, Safety, Balance, Gait, Transfer, Bed Mobility, ROM Treatment/Plan Treatment Plan: Continue Plan of Care Treatment Plan: Bed Mobility, Education, Functional Activity Fern, Functional Strength, Group Therapy, Gait, Safety, Therapeutic Exercise, Transfers Treatment Duration: April 03, 2020 Frequency: At least 5 of 7 days/Wk (IRF) Estimated Hrs Per Day: 1.5 hours per day Patient and/or Family Agrees t: Yes Safety Risks/Education Patient Education: Gait Training, Transfer Techniques, Correct Positioning, Safety Issues Teaching Recipient: Patient Teaching Methods: Demonstration, Discussion Response to Teaching: Reinforcement Needed Time/GCodes Time In: 1408 Time Out: 1445 Total Billed Treatment Time: 37 Total Billed Treatment 1 visit FA 37' HERMESKEI VIGIL PT Mar 13, 2020 14:50
[2020-03-13 15:18] VITALS: BP 103/70
--- NOTE | 2020-03-13 15:54 | NUR ---
I ENTERED THE MED REC BEFORE THE PT WAS TRANSFERRED DOWN TO IRF
[2020-03-13] MEDS: RT-ALBUTEROL SULF 2.5 MG/3 ML PRE-MIX VIAL INH SCH (19:22)
[2020-03-13 21:00] VITALS: BP 115/79
[2020-03-13] MEDS: meTOprolol TARTRATE 50 MG (LOPRESSOR) TAB PO SCH (21:42)
[2020-03-13] MEDS: CEPHALEXIN 250 MG (KEFLEX) CAP PO SCH (21:42)
[2020-03-13] MEDS: DOCUSATE SODIUM 100 MG (COLACE) CAP PO SCH (21:48)
[2020-03-13] MEDS: SENNA W/DOCUSATE (SENOKOT S) TABLET PO SCH (21:48)
[2020-03-13] MEDS: polyethylene glycoL POWDER 17 GM (MIRALAX) PACK PO SCH (21:48)
[2020-03-14] MEDS ORDERED: CATHETER FLUSH 10 ML SYR IV PRN (04:15)
--- NOTE | 2020-03-14 04:48 | NUR ---
Pt temp 38.4. Dr. Hackett notified. New orders received for Tylenol 650mg q4hrs prn.
[2020-03-14 05:01] VITALS: BP 122/71
[2020-03-14] MEDS: ACETAMINOPHEN 325 MG TABLET PO PRN ×2 (05:15→20:50)
[2020-03-14] MEDS: CATHETER FLUSH 10 ML SYR IV SCH ×3 (05:16→20:56)
[2020-03-14 05:47] LABS: BASOPHILS % (AUTO) 0 % (0-10); EOSINOPHILS # (AUTO) 0.2 10^3/uL (0.0-0.3); EOSINOPHILS % (AUTO) 1 % (0-10); HEMATOCRIT 23 % (35-52); HEMOGLOBIN 7.6 G/DL (11.5-16.0); LYMPHOCYTES # (AUTO) 1.5 X 10^3 (1.0-4.0); LYMPHOCYTES % (AUTO) 8 % (12-44); MEAN CORPUSCULAR HEMOGLOBIN 26 PG (25-34); MEAN CORPUSCULAR HGB CONC 34 G/DL (32-36); MEAN CORPUSCULAR VOLUME 78 FL (80-99); MEAN PLATELET VOLUME 8.9 FL (7.4-10.4); MONOCYTES # (AUTO) 1.6 X 10^3 (0.0-1.0); MONOCYTES % (AUTO) 9 % (0-12); NEUTROPHILS # (AUTO) 15.2 X 10^3 (1.8-7.8); NEUTROPHILS % (AUTO) 82 % (42-75); PLATELET COUNT 564 10^3/uL (130-400); RED CELL DISTRIBUTION WIDTH 22.8 % (10.0-14.5); WHITE BLOOD COUNT 18.6 10^3/uL (4.3-11.0)
[2020-03-14 06:02] LABS: ALANINE AMINOTRANSFERASE 19 U/L (0-55); ALKALINE PHOSPHATASE 87 U/L (40-136); BILIRUBIN,TOTAL 0.6 MG/DL (0.1-1.0); BUN/CREATININE RATIO 23; CALCIUM 6.8 MG/DL (8.5-10.1); CARBON DIOXIDE 19 MMOL/L (21-32); CHLORIDE 102 MMOL/L (98-107); CREATININE SERUM 0.61 MG/DL (0.60-1.30); GFR ESTIMATED > 60; GLUCOSE 102 MG/DL (70-105); POTASSIUM 4.1 MMOL/L (3.6-5.0); SODIUM 130 MMOL/L (135-145); TOTAL PROTEIN 4.9 GM/DL (6.4-8.2)
[2020-03-14] MEDS: RT-ALBUTEROL SULF 2.5 MG/3 ML PRE-MIX VIAL INH SCH ×2 (06:52→18:17)
--- NOTE | 2020-03-14 09:45 | Diagnostic Imaging Report ---
INDICATION: Fever. Time of exam 7:49 AM Correlation is made with prior chest from 03/11/2020. The heart size is normal. The pulmonary vascularity is unremarkable. The lungs are clear. No infiltrate, effusion or pneumothorax is detected. Impression: No acute cardiopulmonary process is detected. Dictated by: Dictated on workstation # [id number]
--- NOTE | 2020-03-14 09:45 | NUR ---
left forearm IV site bad. New site started with 20 ga, Rt AC. pt. tolerates procedure well. flushed with 20cc NS.
[2020-03-14] MEDS: SENNA W/DOCUSATE (SENOKOT S) TABLET PO SCH ×2 (09:46→20:56)
[2020-03-14] MEDS: IRON SUCROSE 200 MG/10 ML (VENOFER) VIAL IV SCH (09:46)
[2020-03-14] MEDS: PANTOPRAZOLE 40 MG (PROTONIX) TAB PO SCH (09:46)
[2020-03-14] MEDS: CEPHALEXIN 250 MG (KEFLEX) CAP PO SCH (09:46)
[2020-03-14] MEDS: DOCUSATE SODIUM 100 MG (COLACE) CAP PO SCH ×2 (09:46→20:55)
[2020-03-14] MEDS: FUROSEMIDE 40 MG/4 ML INJ (LASIX) IVP SCH (09:46)
[2020-03-14] MEDS: ASPIRIN 81 MG CHEW (CHILDREN'S ASA) PO SCH (09:46)
[2020-03-14] MEDS: CLOPIDOGREL 75 MG (PLAVIX) TABLET PO SCH (09:46)
[2020-03-14] MEDS: polyethylene glycoL POWDER 17 GM (MIRALAX) PACK PO SCH ×2 (09:47→20:56)
[2020-03-14] MEDS: meTOprolol TARTRATE 50 MG (LOPRESSOR) TAB PO SCH ×2 (09:53→20:49)
--- NOTE | 2020-03-14 10:48 | Physical Therapy Daily Note ---
PT Daily Note-Current Subjective Pt laying Supine in bed upon arrival. Pt asking for pain meds and a little teary a beginning of Rx. Pt agrees to Supine Ex while waiting for Nurse. Pain Location Body Site: Abdomen Pain Description: Burning, Tightness Comment: Pt reports pain but doesn't rate Mental Status Patient Orientation: Person, Place, Situation Attachments: Colostomy/Ileostomy, IV Transfers SCALE: Activities may be completed with or without assistive devices. 5-Qmdgotdfic-tadinga completes the activity by him/herself with no assistance from a helper. 5-Set-up or Clean-up Assistance-helper sets up or cleans up; patient completes activity. [place] assists only prior to or following the activity. 4-Supervision or Touching Assistance-helper provides verbal cues and/or touching/steadying and/or contact guard assistance as patient completes activity. Assistance may be provided throughout the activity or intermittently. 3-Partial/Moderate Assistance-helper does LESS THAN HALF the effort. [place] lifts, holds or supports trunk or limbs, but provides less than half the effort. 2-Substantial/Maximal Assistance-helper does MORE THAN HALF the effort. [place] lifts or holds trunk or limbs and provides more than half the effort. 3-Sdzlibnph-fuhltc does ALL the effort. Patient does none of the effort to complete the activity. Or, the assistance of 2 or more helpers is required for the patient to complete the activity. If activity was not attempted, code reason: 7-Patient Refused. 9-Not Applicable-not attempted and the patient did not perform the activity before the current illness, exacerbation or injury. 10-Not Attempted due to Environmental Limitations-(lack of equipment, weather restraints, etc.). 88-Not Attempted due to Medical Conditions or Safety Concerns. Exercises Supine Ex: Ankle pumps, Quad Set, Glut sets, Heel Slides, Straight leg raise, Hip abd/add Supine Reps: 15 Treatments SR ACCOUNT EXECUTIVE assists pt with calming anxiety to begin Rx. SR ACCOUNT EXECUTIVE discusses goals while on ARU and wanting to assist pt getting better to go home. Nurse gives pt morning meds and takes vitals. Pt is calmer and completes Supine Ex with RB as needed. Assessment Current Status: Fair Progress Pt is anxious to begin Rx but SR ACCOUNT EXECUTIVE is able to assist and pt feeling better by end of Rx. Pt reports pain in abdomen with Ex. PT Short Term Goals Short Term Goals Time Frame: Mar 20, 2020 Roll Left & Right: 3 Sit to lyin Lying to sitting on side of be: 3 Sit to stand: 4 Chair/sro-ws-rcjrn transfer: 4 Walk 10 feet: 4 Walk 50 feet with two turns: 4 Walk 150 feet: 4 PT Nurse Advisor Goals Nurse Advisor Goals PT Care Home Goals Time Frame: April 03, 2020 Roll Left & Right (QC): 6 Sit to Lying (QC): 6 Lying-Sitting on Side/Bed(QC): 6 Sit to Stand (QC): 6 Chair/Byh-xm-Xmjop Xfer(QC): 6 Toilet Transfer (QC): 6 Car Transfer (QC): 6 Does the Patient Walk: Yes Walk 10 feet (QC): 6 Walk 50ft with 2 Turns (QC): 6 Walk 150 ft (QC): 6 Walking 10ft on Uneven Surface: 6 1 Step (curb) (QC): 4 4 Steps (QC): 4 12 Steps (QC): 88 Picking up an Object (QC): 88 Wheel 50 feet with 2 turns (QC: 88 Wheel 150 feet: 88 PT Plan Problem List Problem List: Activity Tolerance, Functional Strength, Safety, Balance, Gait, Transfer, Bed Mobility Treatment/Plan Treatment Plan: Continue Plan of Care Treatment Plan: Bed Mobility, Education, Functional Activity Fern, Functional Strength, Group Therapy, Gait, Safety, Therapeutic Exercise, Transfers Treatment Duration: April 03, 2020 Frequency: At least 5 of 7 days/Wk (IRF) Estimated Hrs Per Day: 1.5 hours per day Patient and/or Family Agrees t: Yes Safety Risks/Education Patient Education: Correct Positioning, Safety Issues Teaching Recipient: Patient Teaching Methods: Discussion Response to Teaching: Verbalize Understanding Time/GCodes Time In: 930 Time Out: 1000 Total Billed Treatment Time: 30 Total Billed Treatment 1, FA (10m) & EX (20m) PARTH TONEY SR ACCOUNT EXECUTIVE Mar 14, 2020 10:48
--- NOTE | 2020-03-14 11:16 | Cardiology Progress Note ---
Cardiology SOAP Progress Note Subjective: No cardiac complaints. Objective: I&O/Vital Signs 03/14/20 03/14/20 03/14/20 03/14/20 05:01 05:15 06:32 06:32 Temp 38.4 38.4 37.4 37.4 Pulse 115 Resp 20 B/P (MAP) 122/71 (88) Pulse Ox 98 O2 Delivery Room Air 03/14/20 03/14/20 06:52 09:00 Pulse Ox 93 O2 Delivery Room Air Room Air 03/14/20 00:00 Intake Total 300 ml Output Total 450 ml Balance -150 ml Constitutional: AAO x 3 Respiratory: chest is bilaterally symmetric, lungs clear to auscultation Cardiovascular: regular rate-rhythm, S1 and S2, systolic murmur Gastrointestional: other (recent abdominal surgery, abdominal exam was not done.) Extremities: pedal edema Neurologic/Psychiatric: no motor/sensory deficits, alert, normal mood/affect, oriented x 3 Skin: normal color Results/Procedures: Labs Laboratory Tests 03/14/20 05:22: White Blood Count 18.6H, Red Blood Count 2.90L, Hemoglobin 7.6L, Hematocrit 23L, Mean Corpuscular Volume 78L, Mean Corpuscular Hemoglobin 26, Mean Corpuscular Hemoglobin Concent 34, Red Cell Distribution Width 22.8H, Platelet Count 564H, Mean Platelet Volume 8.9, Neutrophils (%) (Auto) 82H, Lymphocytes (%) (Auto) 8L, Monocytes (%) (Auto) 9, Eosinophils (%) (Auto) 1, Basophils (%) (Auto) 0, Neutrophils # (Auto) 15.2H, Lymphocytes # (Auto) 1.5, Monocytes # (Auto) 1.6H, Eosinophils # (Auto) 0.2, Basophils # (Auto) 0.0, Sodium Level 130L, Potassium Level 4.1, Chloride Level 102, Carbon Dioxide Level 19L, Anion Gap 9, Blood Urea Nitrogen 14, Creatinine 0.61, Estimat Glomerular Filtration Rate > 60, BUN/Creatinine Ratio 23, Glucose Level 102, Calcium Level 6.8L, Corrected Calcium 8.4L, Total Bilirubin 0.6, Aspartate Amino Transf (AST/SGOT) 23, Alanine Aminotransferase (ALT/SGPT) 19, Alkaline Phosphatase 87, Total Protein 4.9L, Albumin 2.0L 03/14/20 09:00: Lactic Acid Level 0.88, Procalcitonin 0.46H A/P: Assessment/Dx: Currently in inpatient rehabilitation. Sinus tach and leucocytosis, consider systemic infection (managed by Med and Surg Sv[facility]). Okay to DC telemetry. S/p colectomy for intestinal obstruction Marked post-op anemia, managed by the Surgical and Hospitalist Services - received 2 units of 03-09-2020 Hypokalemia, corrected Abnormal ECG, but no evidence of ac [place] CAD, [facility]. Last card cath on 03/05/20: patent stents in the mid left circumflex and the mid right coronary arteries. There is moderate diffuse disease of all coronary arteries. There is moderately severe diffuse disease of the distal left anterior descending. A small caliber obtuse marginal has 70% to 80% ostial stenosis. Normal left ventricular end- diastolic pressure. Echo of 03/05/20: LVEF 60-65%, mild to mod TR, RVSP 35-40 mmHg, mild dilatation of LA Post-op hypotension and EMIGDIO 2, resolved Plan: * Beta nadeem * Continue DAPT because of recent coronary stenting * Monitor labs * Spoke to the nurse again today and recommended DVT prophylaxis. She will speak to Dr. Ji. Thank you for your consultation. Please call me if you have any questions. Odessa Allen MD, FACP, FACC, FSCAI, FHRS, CCDS Interventional Cardiology Cardiac Electrophysiology Vascular Medicine and Endovascular Interventions Focused Exam Lactate Level 03/14/20 09:00: Lactic Acid Level 0.88 Lactic Acid Level Laboratory Tests Test 03/14/20 09:00 Lactic Acid Level 0.88 MMOL/L (0.50-2.00) Kusum ALLEN MD Mar 14, 2020 11:16
--- NOTE | 2020-03-14 12:35 | PM&R Progress Note ---
Subjective HPI/CC On Admission Date Seen by Provider: Mar 14, 2020 Time Seen by Provider: 14:00 Subjective/Events-last exam Patient doing better Slept well last night Fever 101 and w/u ordered by Dr Taveras prompted starting IV abx for facility acquire infection Anasarca managed with Lasix Poor nutrition with albumin 2.0 is causing the third spacing also Pain is tolerated Talked to her about her hirsutism and she states her mother had it and she shaves it regularly Had regular periods up until recently going through ramos-menopause but she did not have children Checked meds and labs Conferred with RN Reviewed therapy notes Review of Systems General: Fatigue Pulmonary: Dyspnea Cardiovascular: Edema Neurological: Weakness, Numbness, Incoordination Focused Exam Lactate Level 03/14/20 09:00: Lactic Acid Level 0.88 Lactic Acid Level Objective Exam Vital Signs Vital Signs Date Time Temp Pulse Resp B/P (MAP) Pulse Ox O2 Delivery O2 Flow Rate FiO2 03/14/20 17:03 36.6 120 20 125/84 (98) 95 Room Air Capillary Refill : Less Than 3 Seconds General Appearance: WD/WN, Anxious, Chronically ill, Mild Distress HEENT: PERRL/EOMI, Normal ENT Inspection, Pharynx Normal Neck: Full Range of Motion, Normal Inspection, Non Tender, Supple, Carotid Bruit Respiratory: Chest Non Tender, Lungs Clear, No Accessory Muscle Use, No Respiratory Distress, Decreased Breath Sounds Cardiovascular: Regular Rate, Rhythm, No Gallop, No JVD, No Murmur, Normal Peripheral Pulses Gastrointestinal: Normal Bowel Sounds, No Organomegaly, No Pulsatile Mass, Soft, Tenderness Back: Normal Inspection, No CVA Tenderness, No Vertebral Tenderness Extremity: Normal Capillary Refill, Normal Inspection, Normal Range of Motion, Non Tender, No Calf Tenderness, Pedal Edema (2+ legs) Neurologic/Psychiatric: Alert, Oriented x3, No Motor/Sensory Deficits, Normal Mood/Affect, flight information expediter II-XII Norm as Tested, Motor Weakness (generalized all extremties) Skin: Normal Color, Warm/Dry Lymphatic: No Adenopathy Results/Procedures Lab Laboratory Tests 03/14/20 05:22 Patient resulted labs reviewed. FIM Transfers Therapy Code Descriptions/Definitions Functional [place] Measure: 0=Not Assessed/NA 4=Minimal Assistance 1=Total Assistance 5=Supervision or Setup 2=Maximal Assistance 6=Modified [place] 3=Moderate Assistance 7=Complete IndependenceSCALE: Activities may be completed with or without assistive devices. 9-Qwubgvtroy-jatwnae completes the activity by him/herself with no assistance from a helper. 5-Set-up or Clean-up Assistance-helper sets up or cleans up; patient completes activity. [place] assists only prior to or following the activity. 4-Supervision or Touching Assistance-helper provides verbal cues and/or touching/steadying and/or contact guard assistance as patient completes activity. Assistance may be provided throughout the activity or intermittently. 3-Partial/Moderate Assistance-helper does LESS THAN HALF the effort. [place] lifts, holds or supports trunk or limbs, but provides less than half the effort. 2-Substantial/Maximal Assistance-helper does MORE THAN HALF the effort. [place] lifts or holds trunk or limbs and provides more than half the effort. 5-Uqlsiokpb-yxzwkh does ALL the effort. Patient does none of the effort to complete the activity. Or, the assistance of 2 or more helpers is required for the patient to complete the activity. If activity was not attempted, code reason: 7-Patient Refused. 9-Not Applicable-not attempted and the patient did not perform the activity before the current illness, exacerbation or injury. 10-Not Attempted due to Environmental Limitations-(lack of equipment, weather restraints, etc.). 88-Not Attempted due to Medical Conditions or Safety Concerns. Roll Left to Right (QC): 3 Sit to Lying (QC): 3 Sit to Stand (QC): 4 Chair/Tkf-rd-Iwkqu Xfer(QC): 4 Car Transfer (QC): 3 Gait Training Does the Patient Walk?: Yes Walk 10 feet (QC): 4 Walk 50 ft with 2 Turns(QC): 4 Walk 150 ft (QC): 4 Walking 10ft/uneven surface-QC: 4 Gait Assistive Device: FWW Wheelchair Training Does the Pt Use a Wheelchair?: No Wheel 50 ft with 2 turns (QC): 9 Wheel 150 ft (QC): 9 Stair Training 1 Step (curb) (QC): 88 4 Steps (QC): 88 12 Steps (QC): 88 Balance Picking up an Object (QC): 88 ADL-Treatment Eating (QC): 6 Oral Hygiene (QC): 6 Shower/Bathe Self (QC): 3 (Pt denies shower, pt and nursing states pt took sponge bath this morning. Based on clinical judgment pt would require SBA during showering tasks and min A for thoroughness.) Upper Body Dressing (QC): 5 (s/u) Lower Body Dressing (QC): 3 (min A for threading one LE into pants, able to bring over hips with SBA.) On/Off Footwear (QC): 3 (mod A- pt able to bring one foot over knee to don sock, pt unable to complete following foot, requires mod APt has PEPITO hose donned, would require max A for knee high TEDs) Toileting Hygiene (QC): 4 (SBA in stance per pt report and per clinical judgment ) Assessment/Plan Assessment and Plan Assess & Plan/Chief Complaint Assessment: Debility s/p critical illness and VDRF 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 Anasarca Hirsutism Poor albumin level Sore mouth added Nystatin and Magic mouthwash Fever Zosyn added by Dr Taveras Plan: Mouth treatment IRF protocol Lab monitored Check labs periodically Wound care to iliostomy site (1) S/P colectomy (2) Ileostomy in place (3) Hirsutism (4) Tachycardia (5) Anasarca (6) Anemia (7) Debility (8) Sigmoid volvulus (9) Leukocytosis (10) Acute kidney injury (11) Hyponatremia (12) Coronary artery disease (13) Abdominal pain Status: Acute (14) Elevated troponin (15) S/P cardiac cath SESAR BEEBE DO Mar 14, 2020 12:35
[2020-03-14 12:41] LABS: BILIRUBIN,URINE NEGATIVE (NEGATIVE); CLARITY,URINE CLEAR; COLOR,URINE YELLOW; GLUCOSE, URINE (UA) NEGATIVE (NEGATIVE); KETONES,URINE NEGATIVE (NEGATIVE); LEUKOCYTE ESTERASE ,URINE TRACE (NEGATIVE); NITRITE,URINE NEGATIVE (NEGATIVE); PROTEIN,URINE NEGATIVE (NEGATIVE)
[2020-03-14] MEDS ORDERED: PIPERACILLIN/TAZOBACTAM (BULK) 4.5 GM in NS (IVPB) 100 ML IV NR (13:00)
[2020-03-14] MEDS ORDERED: VANCOMYCIN INJECTION 0.1 MG in NS (IVPB) 250 ML IV SCH (13:00)
[2020-03-14 13:18] LABS: BACTERIA,URINE NEGATIVE /HPF; RBC,URINE 0-2 /HPF; WBC,URINE 0-2 /HPF
--- NOTE | 2020-03-14 13:19 | NUR ---
PTD Vanco - Loading dose of 1750mg over 2 hours x 1, then 1gm every 8 hours. Trough prior to the 4th dose. Addendum: 03/15/20 at 1323 by JAQUELIN MEJIA [facility] 03/15 1230 Vanco Trough - 27.5. Repeat trough ordered for 03/16 @ 06.
[2020-03-14] MEDS ORDERED: MAGIC MOUTHWASH, ADULT 155 ML BOTTLE PO SCH (14:00)
[2020-03-14] MEDS ORDERED: VANCOMYCIN 1,750 MG/NS 500 ML IVPB IV NR ×2 (14:00)
[2020-03-14 17:03] VITALS: BP 125/84
[2020-03-14] MEDS: MAGIC MOUTHWASH (ADULT) PO SCH ×8 (17:25→20:51)
[2020-03-14] MEDS: NYSTATIN ORAL SUSP 5 ML UDC PO SCH (17:56)
--- NOTE | 2020-03-14 18:19 | Individualized Plan of Care ---
Individualized Plan of Care Rehab Nursing IPOC Order Admission Date Mar 13, 2020 at 11:35 Current Orders Orders Admission Order(Inpt,Obs,Sdc) (03/13/20 10:24) Vital Signs: Per Unit Policy ( 08,16,00 (03/13/20 10:24) Antonio Vera ,21 (03/13/20 10:24) Oceanographer Physical-Inpt Rehab Con (03/13/20 10:24) Rehab Nursing Orders-Ipoc (03/13/20 10:24) Physical Therapy Rehab Orders (03/13/20 10:24) Occupational Therapy Rehab Ord (03/13/20 10:24) Speech Therapy Rehab Orders (03/13/20 10:24) Cbc With Automated Diff (03/14/20 06:00) Comprehensive Metabolic Panel (03/14/20 06:00) Intake & Output 06,14,22 (03/13/20 10:24) Precautions (Aru) (03/13/20 10:24) Weekly Weight WEEK (03/13/20 10:24) Rehab-Intensity Of Therapy (03/13/20 10:24) Alprazolam Tablet (Xanax Tablet) (03/13/20 10:30) Calcium Carbonate Chew Tablet (Antacid C (03/13/20 10:30) Diphenhydramine Tablet (Benadryl Tablet) (03/13/20 10:30) Docusate Sodium Capsule (Colace Capsule) (03/13/20 21:00) Docusate Sodium Capsule (Colace Capsule) (03/13/20 10:30) Bisacodyl Suppository (Dulcolax Supposit (03/13/20 10:30) Lactulose Oral Solution (Enulose Oral So (03/13/20 10:30) Na Phos/Na Biphos Enema (Fleet Enema Fer (03/13/20 10:30) Guaifenesin/Codeine Syrup (Robitussin Ac (03/13/20 10:30) Loperamide Tablet (Imodium Tablet) (03/13/20 10:30) Melatonin Tablet (Melatonin Tablet) (03/13/20 10:30) Polyethylene Glycol Powder Pkt (Miralax (03/13/20 21:00) Ondansetron Oral Dissolve Tab (Zofran (03/13/20 10:30) Senna S Tablet (Senokot S Tablet) (03/13/20 21:00) Dys2 Mechanically Altered (03/13/20 Lunch) Nursing Communication (Order) (03/13/20 11:24) Transfer - Bed/Room/Location (03/13/20 11:43) Code/Resuscitation (03/13/20 12:43) Catheter(Urinary) Discontinue (03/13/20 12:43) Elevate (03/13/20 12:43) Heel Protectors Bilateral (03/13/20 12:43) Ice: Apply To Affected Area (03/13/20 12:43) Iv Maintain (Order) (03/13/20 12:43) Incentive Spirometry (Nursing) Q2H (03/13/20 12:43) May Follow Nutritional Rec For (03/13/20 12:43) Ensure Enlive (03/13/20 Dinner) Albuterol Pre-Mix Nebs (Rt) (Proventil (03/13/20 21:00) Aspirin Chewable Tablet (Baby Aspirin Ch (03/14/20 09:00) Furosemide Injection (Lasix Injection) (03/14/20 09:00) Patient May Use Own Meds, All (Patient M (03/13/20 12:45) Clopidogrel Tablet (Plavix Tablet) (03/14/20 09:00) Ondansetron Injection (Zofran Injectio (03/13/20 12:45) Fentanyl Injection (Sublimaze Injection (03/13/20 12:45) Metoprolol Tartrate (Ir) Tab (Lopressor (03/13/20 21:00) Consult Cardiology (03/13/20 12:43) Consult Pulmonology (03/13/20 12:43) Dietary Consult (03/13/20 12:43) Svn Small Volume Nebulizer (03/13/20 12:43) Mat Initiate Protocol (03/13/20 12:43) Svn Small Volume Nebulizer (03/13/20 12:43) Pantoprazole Tablet (Protonix Tablet) (03/14/20 09:00) Oxycodone Immediate Rel Tablet (Oxyir Ta (03/13/20 12:45) Consult General Surgery (03/13/20 12:43) Dys2 Mechanically Altered (03/13/20 Dinner) Sequential Compression Device Q4H (03/13/20 13:13) Dvt/Vte Risk - Notifiy Physici Q4H (03/13/20 13:13) Patient Visit (03/13/20 ) Pt Eval Moderate Complexity (03/13/20 ) Gait Training, Ea 15 Min (03/13/20 ) Functional Activities, Ea 15 (03/13/20 ) Patient Visit (03/13/20 ) Speech Sound Lang Comp (03/13/20 ) Patient Visit (03/13/20 ) Functional Activities, Ea 15 (03/13/20 ) Cephalexin Capsule (Keflex Capsule) (03/13/20 21:00) Iron Test (Fe) (03/14/20 06:00) Iron Sucrose Injection (Venofer Injectio (03/14/20 09:00) Sodium Chloride Flush (Catheter Flush Sy (03/14/20 04:15) Sodium Chloride Flush (Catheter Flush Sy (03/14/20 06:00) Acetaminophen Tablet/Caplet (Tylenol T (03/14/20 05:00) Blood Culture (03/14/20 07:36) Sputum Culture (03/14/20 07:36) Urinalysis (03/14/20 11:45) Procalcitonin (Pct) (03/14/20 07:36) Lactic Acid Analyzer (03/14/20 07:36) Chest 1 View, Ap/Pa Only (03/14/20 07:36) Mrsa Screen Physician Request (03/14/20 07:36) Mrsa Nursing Screening/Treatme .admit (03/14/20 07:36) Patient Visit (03/14/20 ) Functional Activities, Ea 15 (03/14/20 ) Exercise Therap, Ea 15 Min (03/14/20 ) Piperacillin/Tazobactam (Bulk) (Zosyn In (03/14/20 13:00) Vancomycin Injection (Vancomycin Injecti (03/14/20 13:00) Vancomycin Injection (Vancomycin Injecti (03/14/20 14:00) Vancomycin Injection (Vancomycin Injecti (03/14/20 22:00) Piperacillin/Tazobactam (Bulk) (Zosyn In (03/14/20 19:00) Trough Order (Trough Order-Pharmacy Orde (03/15/20 12:30) Vancomycin,Trough (03/15/20 12:30) Nystatin Oral Suspension (Mycostatin O (03/14/20 18:00) Nystatin Susp For Compounding (Mycostati (03/14/20 17:00) Rehab Nursing Orders: Ongoing Assess. of Cognitive Status, Ongoing Assess. of Function Status, Bladder Management, Bladder Scan, Bladder Training, Bowel Management, Bowel Training, Disease Management & Educaiton, DVT Prophylaxis, Fall Prevention, Fluid/Electrolyte/Nutrition Mgmt, Infection Prevention, Medication Management & Education, Management of Risks & Complications, Management of Skin Intergrity, Nutrition Management, Pain Management, Patient/Family Support, Safety Management, Swallow Precautions, Wound Management Intensity of Therapy to be met Patient to be seen: Min.3h per day/5 of 7d PT IPOC Problem List: Activity Tolerance, Functional Strength, Safety, Balance, Gait, Transfer, Bed Mobility Treatment Plan: Continue Plan of Care Bed Mobility, Education, Functional Activity Fern, Functional Strength, Group Therapy, Gait, Safety, Therapeutic Exercise, Transfers Treatment Duration: April 03, 2020 Frequency: At least 5 of 7 days/Wk (IRF) Estimated Hrs Per Day: 1.5 hours per day OT IPOC Problems: Decreased Activ Tolerance, Dependent Transfers, Edema, Impaired Bed Mobility, Impaired Funct Balance, Impaired I ADL's, Impaired Self-Care Skills OT Treatment, Training and Edu: Yes Plan of Care: ADL Retraining, Concurrent Therapy, Functional Mobility, Group Exercise/Act as Ind, UE Funct Exercise/Act Treatment Duration: March 27, 2020 Frequency: At least 5 of 7 days/Wk (IRF) Estimated Hrs Per Day: 1.[address] IPOC Speech Therapy Treatment Plan: Discontinue ST Treatment Duration: Mar 13, 2020 Frequency: 1 time per week Estimated Hrs Per Day: .25 hour per day Oceanographer Physical/Case Mgmt Oceanographer Physical/Case Managemen: Discharge Planning Dietitian/Cake Wringer Dietitian/Cake Wringer to monitor nutritional status and make changes and/or recommendations as needed and work with speech pathology on dietary upgrades as the occur. Physician IPOC Medical Issues being managed closely and that require the 24 hour availability of a physician: Recent critical illness with new iliostomy due to ischemic bowel with anasarca due to volume overload with severe weakness with high risk for decompensation Medical Issues: Bowel/Bladder Function, DVT Prophylaxis, Falls Precautions, Fluid/Electrolyte/Nutrition Balance, Infection Protection, Pain Management, Swallowing Precautions, Wound Care Brief Synthesis of Preadmission Screen, Post-Admission Evaluation, and Therapy Evaluations: PT OT will focus on regaining strengthening and regaining ADL's in order to return home Medical Prognosis: Good Anticipated Length of Stay: 10 days SESAR BEEBE DO Mar 14, 2020 18:19
[2020-03-14 19:07] VITALS: BP 138/84
[2020-03-14] MEDS: PIPERACILLIN/TAZO 4.5 GM/NS 100 ML IV SCH ×2 (20:51)
--- NOTE | 2020-03-14 22:00 | NUR ---
Straight Catheterization using sterile procedure, Joann MODI in the room assisting with procedure, 900 ml of clear yellow urine obtained, pt tolerated procedure well. Addendum: 03/16/20 at 0042 by IDANIA SALAS RN Note entered on wrong patient chart.
[2020-03-15] MEDS: NYSTATIN ORAL SUSP 5 ML UDC PO SCH ×4 (00:54→17:19)
[2020-03-15] MEDS: VANCOMYCIN 1 GM/NS 250 ML IVPB IV SCH ×4 (00:54→06:26)
[2020-03-15] MEDS: PIPERACILLIN/TAZO 4.5 GM/NS 100 ML IV SCH ×6 (02:49→18:53)
[2020-03-15 06:00] VITALS: BP 113/53
[2020-03-15] MEDS: CATHETER FLUSH 10 ML SYR IV SCH ×3 (06:26→22:06)
[2020-03-15] MEDS: ACETAMINOPHEN 325 MG TABLET PO PRN ×2 (06:41→15:11)
--- NOTE | 2020-03-15 07:08 | Pulmonary Progress Note ---
Subjective Time Seen by a Provider: 07:05 Subjective/Events-last exam Pt has worsening leukocytosis and fever. Sepsis Event Evaluation Height, Weight, BMI Height: '" Weight: lbs. oz. kg; 34.45 BMI Method: Focused Exam Lactate Level 03/14/20 09:00: Lactic Acid Level 0.88 Exam Exam Vital Signs Date Time Temp Pulse Resp B/P (MAP) Pulse Ox O2 Delivery O2 Flow Rate FiO2 03/15/20 06:00 38.0 110 18 113/53 (73) 94 Room Air 03/14/20 21:00 Room Air 03/14/20 19:07 134 138/84 (102) 95 Room Air 03/14/20 18:18 93 Room Air 03/14/20 17:03 36.6 120 20 125/84 (98) 95 Room Air 03/14/20 09:00 Room Air I & O 03/15/20 07:00 Intake Total 2062 ml Output Total 2875 ml Balance -813 ml Height & Weight Height: '" Weight: lbs. oz. kg; 34.45 BMI Method: General Appearance: WD/WN, Anxious, Chronically ill, Mild Distress HEENT: PERRL/EOMI, Normal ENT Inspection, Pharynx Normal Neck: Full Range of Motion, Normal Inspection, Non Tender, Supple, Carotid Bruit Respiratory: Chest Non Tender, Lungs Clear, No Accessory Muscle Use, No Respir atory Distress, Decreased Breath Sounds Cardiovascular: Regular Rate, Rhythm, No Gallop, No JVD, No Murmur, Normal Peripheral Pulses Capillary Refill: Less Than 3 Seconds Extremity: Normal Capillary Refill, Normal Inspection, Normal Range of Motion, Non Tender, No Calf Tenderness, Pedal Edema (2+ legs) Neurologic/Psychiatric: Alert, Oriented x3, No Motor/Sensory Deficits, Normal Mood/Affect, structural 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
[2020-03-15] MEDS: RT-ALBUTEROL SULF 2.5 MG/3 ML PRE-MIX VIAL INH SCH ×2 (08:06→22:18)
[2020-03-15 08:13] LABS: BASOPHILS % (AUTO) 0 % (0-10); EOSINOPHILS # (AUTO) 0.2 10^3/uL (0.0-0.3); EOSINOPHILS % (AUTO) 1 % (0-10); HEMATOCRIT 24 % (35-52); HEMOGLOBIN 7.7 G/DL (11.5-16.0); LYMPHOCYTES # (AUTO) 1.3 X 10^3 (1.0-4.0); LYMPHOCYTES % (AUTO) 7 % (12-44); MEAN CORPUSCULAR HEMOGLOBIN 26 PG (25-34); MEAN CORPUSCULAR HGB CONC 33 G/DL (32-36); MEAN CORPUSCULAR VOLUME 79 FL (80-99); MEAN PLATELET VOLUME 8.5 FL (7.4-10.4); MONOCYTES # (AUTO) 1.6 X 10^3 (0.0-1.0); MONOCYTES % (AUTO) 8 % (0-12); NEUTROPHILS # (AUTO) 15.9 X 10^3 (1.8-7.8); NEUTROPHILS % (AUTO) 83 % (42-75); PLATELET COUNT 628 10^3/uL (130-400); RED CELL DISTRIBUTION WIDTH 23.7 % (10.0-14.5)
[2020-03-15 08:23] LABS: ALBUMIN 2.1 GM/DL (3.2-4.5); CHLORIDE 103 MMOL/L (98-107); POTASSIUM 4.1 MMOL/L (3.6-5.0); SODIUM 133 MMOL/L (135-145)
[2020-03-15 08:25] LABS: GLUCOSE 93 MG/DL (70-105); TOTAL PROTEIN 5.2 GM/DL (6.4-8.2)
[2020-03-15 08:26] LABS: CARBON DIOXIDE 20 MMOL/L (21-32)
[2020-03-15 08:27] LABS: BILIRUBIN,TOTAL 0.9 MG/DL (0.1-1.0)
[2020-03-15 08:28] LABS: PHOSPHORUS 2.8 MG/DL (2.3-4.7)
[2020-03-15 08:29] LABS: ALKALINE PHOSPHATASE 93 U/L (40-136); CREATININE SERUM 0.61 MG/DL (0.60-1.30); GFR ESTIMATED > 60
[2020-03-15 08:30] LABS: BUN/CREATININE RATIO 20
[2020-03-15 08:32] LABS: ALANINE AMINOTRANSFERASE 18 U/L (0-55); MAGNESIUM 1.7 MG/DL (1.6-2.4)
[2020-03-15 08:42] VITALS: BP 120/82
[2020-03-15] MEDS: meTOprolol TARTRATE 50 MG (LOPRESSOR) TAB PO SCH ×2 (09:10→22:04)
[2020-03-15] MEDS: PANTOPRAZOLE 40 MG (PROTONIX) TAB PO SCH (09:10)
[2020-03-15] MEDS: FUROSEMIDE 40 MG/4 ML INJ (LASIX) IVP SCH (09:10)
[2020-03-15] MEDS: CLOPIDOGREL 75 MG (PLAVIX) TABLET PO SCH (09:10)
[2020-03-15] MEDS: ASPIRIN 81 MG CHEW (CHILDREN'S ASA) PO SCH (09:10)
[2020-03-15] MEDS: MAGIC MOUTHWASH (ADULT) PO SCH ×16 (09:11→22:04)
[2020-03-15] MEDS: DOCUSATE SODIUM 100 MG (COLACE) CAP PO SCH ×2 (09:20→22:05)
[2020-03-15] MEDS: SENNA W/DOCUSATE (SENOKOT S) TABLET PO SCH ×2 (09:20→22:05)
[2020-03-15] MEDS: polyethylene glycoL POWDER 17 GM (MIRALAX) PACK PO SCH ×2 (09:20→22:05)
[2020-03-15 11:26] VITALS: BP 122/80
--- NOTE | 2020-03-15 11:36 | PM&R Progress Note ---
Subjective HPI/CC On Admission Date Seen by Provider: Mar 15, 2020 Time Seen by Provider: 11:50 Subjective/Events-last exam Patient doing better each day Slept well last night again Fever and w/u ordered by Dr Taveras prompted starting IV abx for facility acquire infection Abx D#2 Anasarca managed with Lasix and decreasing fluid in legs gradually Poor nutrition with albumin 2.0 is causing the third spacing also Pain is tolerated Iliostomy working well for the patient Checked meds and labs Conferred with RN Reviewed therapy notes Review of Systems General: Fatigue Pulmonary: Dyspnea Cardiovascular: Edema Neurological: Weakness, Numbness, Incoordination Focused Exam Lactate Level 03/14/20 09:00: Lactic Acid Level 0.88 Objective Exam Vital Signs Vital Signs Date Time Temp Pulse Resp B/P (MAP) Pulse Ox O2 Delivery O2 Flow Rate FiO2 03/15/20 15:04 37.0 03/15/20 11:26 117 22 122/80 (94) 96 Room Air Capillary Refill : Less Than 3 Seconds General Appearance: No Apparent Distress, WD/WN, Anxious, Chronically ill HEENT: PERRL/EOMI, Normal ENT Inspection, Pharynx Normal Neck: Full Range of Motion, Normal Inspection, Non Tender, Supple, Carotid Bruit Respiratory: Chest Non Tender, Lungs Clear, Normal Breath Sounds, No Accessory Muscle Use, No Respiratory Distress Cardiovascular: Regular Rate, Rhythm, No Gallop, No JVD, No Murmur, Normal Peripheral Pulses Gastrointestinal: Normal Bowel Sounds, No Organomegaly, No Pulsatile Mass, Soft, Tenderness Back: Normal Inspection, No CVA Tenderness, No Vertebral Tenderness Extremity: Normal Capillary Refill, Normal Inspection, Normal Range of Motion, Non Tender, No Calf Tenderness, Pedal Edema (2+ legs) Neurologic/Psychiatric: Alert, Oriented x3, No Motor/Sensory Deficits, Normal Mood/Affect, multiple games dealer II-XII Norm as Tested, Motor Weakness (generalized all extremties) Skin: Normal Color, Warm/Dry Lymphatic: No Adenopathy Results/Procedures Lab Laboratory Tests 03/15/20 08:04 Patient resulted labs reviewed. FIM Transfers Therapy Code Descriptions/Definitions Functional [place] Measure: 0=Not Assessed/NA 4=Minimal Assistance 1=Total Assistance 5=Supervision or Setup 2=Maximal Assistance 6=Modified [place] 3=Moderate Assistance 7=Complete IndependenceSCALE: Activities may be completed with or without assistive devices. 1-Oxhipnkgio-tigodpv completes the activity by him/herself with no assistance from a helper. 5-Set-up or Clean-up Assistance-helper sets up or cleans up; patient completes activity. [place] assists only prior to or following the activity. 4-Supervision or Touching Assistance-helper provides verbal cues and/or touching/steadying and/or contact guard assistance as patient completes activity. Assistance may be provided throughout the activity or intermittently. 3-Partial/Moderate Assistance-helper does LESS THAN HALF the effort. [place] lifts, holds or supports trunk or limbs, but provides less than half the effort. 2-Substantial/Maximal Assistance-helper does MORE THAN HALF the effort. [place] lifts or holds trunk or limbs and provides more than half the effort. 4-Xtyzufssb-ufbsvh does ALL the effort. Patient does none of the effort to complete the activity. Or, the assistance of 2 or more helpers is required for the patient to complete the activity. If activity was not attempted, code reason: 7-Patient Refused. 9-Not Applicable-not attempted and the patient did not perform the activity before the current illness, exacerbation or injury. 10-Not Attempted due to Environmental Limitations-(lack of equipment, weather restraints, etc.). 88-Not Attempted due to Medical Conditions or Safety Concerns. Roll Left to Right (QC): 3 Sit to Lying (QC): 3 Sit to Stand (QC): 4 Chair/Jdu-hf-Qngyb Xfer(QC): 4 Car Transfer (QC): 3 Gait Training Does the Patient Walk?: Yes Walk 10 feet (QC): 4 Walk 50 ft with 2 Turns(QC): 4 Walk 150 ft (QC): 4 Walking 10ft/uneven surface-QC: 4 Gait Assistive Device: FWW Wheelchair Training Does the Pt Use a Wheelchair?: No Wheel 50 ft with 2 turns (QC): 9 Wheel 150 ft (QC): 9 Stair Training 1 Step (curb) (QC): 88 4 Steps (QC): 88 12 Steps (QC): 88 Balance Picking up an Object (QC): 88 ADL-Treatment Eating (QC): 6 Oral Hygiene (QC): 6 Shower/Bathe Self (QC): 3 (Pt denies shower, pt and nursing states pt took sponge bath this morning. Based on clinical judgment pt would require SBA during showering tasks and min A for thoroughness.) Upper Body Dressing (QC): 5 (s/u) Lower Body Dressing (QC): 3 (min A for threading one LE into pants, able to bring over hips with SBA.) On/Off Footwear (QC): 3 (mod A- pt able to bring one foot over knee to don sock, pt unable to complete following foot, requires mod APt has PEPITO hose donned, would require max A for knee high TEDs) Toileting Hygiene (QC): 4 (SBA in stance per pt report and per clinical ju dgment ) Assessment/Plan Assessment and Plan Assess & Plan/Chief Complaint Assessment: Debility s/p critical illness and VDRF 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 Anasarca Hirsutism Poor albumin level Sore mouth added Nystatin and Magic mouthwash Fever Zosyn added by Dr Taveras empirically Plan: Mouth treatment is improving status IRF protocol Lab monitored Check labs periodically Wound care to iliostomy site (1) S/P colectomy (2) Ileostomy in place (3) Hirsutism (4) Tachycardia (5) Anasarca (6) Anemia (7) Debility (8) Sigmoid volvulus (9) Leukocytosis (10) Acute kidney injury (11) Hyponatremia (12) Coronary artery disease (13) Abdominal pain Status: Acute (14) Elevated troponin (15) S/P cardiac cath SESAR BEEBE DO Mar 15, 2020 11:36
[2020-03-15] MEDS ORDERED: TROUGH ORDER-PHARMACY XX NR (12:30)
--- NOTE | 2020-03-15 14:22 | Cardiology Progress Note ---
Cardiology SOAP Progress Note Subjective: No acute cardiac complaints. Objective: I&O/Vital Signs 03/15/20 03/15/20 03/15/20 03/15/20 06:00 08:07 08:42 09:24 Temp 38.0 38.0 37.4 Pulse 110 122 122 Resp 18 21 B/P (MAP) 113/53 (73) 120/82 (95) Pulse Ox 94 93 96 96 O2 Delivery Room Air Room Air Room Air Room Air 03/15/20 11:26 Temp 37.4 Pulse 117 Resp 22 B/P (MAP) 122/80 (94) Pulse Ox 96 O2 Delivery Room Air 03/15/20 00:00 Intake Total 1042 ml Output Total 1075 ml Balance -33 ml Constitutional: AAO x 3 Respiratory: chest is bilaterally symmetric, lungs clear to auscultation Cardiovascular: regular rate-rhythm, S1 and S2, systolic murmur Gastrointestional: other (recent abdominal surgery, abdominal exam was not done.) Extremities: pedal edema Neurologic/Psychiatric: no motor/sensory deficits, alert, normal mood/affect, oriented x 3 Skin: normal color Results/Procedures: Labs Laboratory Tests 03/15/20 08:04: White Blood Count 19.0H, Red Blood Count 2.97L, Hemoglobin 7.7L, Hematocrit 24L, Mean Corpuscular Volume 79L, Mean Corpuscular Hemoglobin 26, Mean Corpuscular Hemoglobin Concent 33, Red Cell Distribution Width 23.7H, Platelet Count 628H, Mean Platelet Volume 8.5, Neutrophils (%) (Auto) 83H, Lymphocytes (%) (Auto) 7L, Monocytes (%) (Auto) 8, Eosinophils (%) (Auto) 1, Basophils (%) (Auto) 0, Neutrophils # (Auto) 15.9H, Lymphocytes # (Auto) 1.3, Monocytes # (Auto) 1.6H, Eosinophils # (Auto) 0.2, Basophils # (Auto) 0.0, Sodium Level 133L, Potassium Level 4.1, Chloride Level 103, Carbon Dioxide Level 20L, Anion Gap 10, Blood Urea Nitrogen 12, Creatinine 0.61, Estimat Glomerular Filtration Rate > 60, BUN/Creatinine Ratio 20, Glucose Level 93, Calcium Level 7.0L, Corrected Calcium 8.5, Phosphorus Level 2.8, Magnesium Level 1.7, Total Bilirubin 0.9, Aspartate Amino Transf (AST/SGOT) 21, Alanine Aminotransferase (ALT/SGPT) 18, Alkaline Phosphatase 93, Total Protein 5.2L, Albumin 2.1L 03/15/20 12:35: Vancomycin Level Trough 27.5*H A/P: Assessment/Dx: Currently in inpatient rehabilitation. Sinus tach and leucocytosis, consider systemic infection (managed by Med and Surg Svces). Okay to DC telemetry. S/p colectomy for intestinal obstruction Marked post-op anemia, managed by the Surgical and Hospitalist Services - received 2 units of 03-09-2020 Hypokalemia, corrected Abnormal ECG, but no evidence of ac TX CAD, h/o cor stenting at [facility] in Oct 2019. Last card cath on 03/05/20: patent stents in the mid left circumflex and the mid right coronary arteries. There is moderate diffuse disease of all coronary arteries. There is moderately severe diffuse disease of the distal left anterior descending. A small caliber obtuse marginal has 70% to 80% ostial stenosis. Normal left ventricular end- diastolic pressure. Echo of 03/05/20: LVEF 60-65%, mild to mod TR, RVSP 35-40 mmHg, mild dilatation of LA Post-op hypotension and EMIGDIO 2, resolved Plan: * Beta nadeem * Continue DAPT because of recent coronary stenting * Monitor labs * I recommend DVT prophylaxis if no surgical contraindication. Will defer to Dr. Ji. Thank you for your consultation. Please call me if you have any questions. Odessa Allen MD, FACP, FACC, FSCAI, FHRS, CCDS Interventional Cardiology Cardiac Electrophysiology Vascular Medicine and Endovascular Interventions Focused Exam Lactate Level 03/14/20 09:00: Lactic Acid Level 0.88 Kusum ALLEN MD Mar 15, 2020 14:22
[2020-03-15 17:19] VITALS: BP 110/74
--- NOTE | 2020-03-15 18:32 | NUR ---
Noted reddened, sore area below Rt breast, notified Dr. Hackett & rec'd new orders.
[2020-03-15] MEDS: MICONAZOLE 2% POWDER (DESENEX AF) 90 GM TOP SCH (22:08)
[2020-03-15] MEDS: NYSTATIN CREAM (MYCOSTATIN) 30 GM TUBE TP SCH (22:09)
[2020-03-16] MEDS: NYSTATIN ORAL SUSP 5 ML UDC PO SCH ×4 (00:01→18:13)
[2020-03-16] MEDS: PIPERACILLIN/TAZO 4.5 GM/NS 100 ML IV SCH ×4 (03:12→16:14)
[2020-03-16 05:56] LABS: BASOPHILS % (AUTO) 0 % (0-10); EOSINOPHILS # (AUTO) 0.3 10^3/uL (0.0-0.3); EOSINOPHILS % (AUTO) 2 % (0-10); HEMATOCRIT 23 % (35-52); HEMOGLOBIN 7.2 G/DL (11.5-16.0); LYMPHOCYTES # (AUTO) 1.2 X 10^3 (1.0-4.0); LYMPHOCYTES % (AUTO) 7 % (12-44); MEAN CORPUSCULAR HEMOGLOBIN 26 PG (25-34); MEAN CORPUSCULAR HGB CONC 32 G/DL (32-36); MEAN CORPUSCULAR VOLUME 81 FL (80-99); MEAN PLATELET VOLUME 8.6 FL (7.4-10.4); MONOCYTES # (AUTO) 1.4 X 10^3 (0.0-1.0); MONOCYTES % (AUTO) 8 % (0-12); NEUTROPHILS # (AUTO) 15.2 X 10^3 (1.8-7.8); NEUTROPHILS % (AUTO) 84 % (42-75); PLATELET COUNT 633 10^3/uL (130-400); RED CELL DISTRIBUTION WIDTH 23.6 % (10.0-14.5); WHITE BLOOD COUNT 18.1 10^3/uL (4.3-11.0)
[2020-03-16 06:00] VITALS: BP 126/84
[2020-03-16] MEDS ORDERED: TROUGH ORDER-PHARMACY XX NR (06:00)
[2020-03-16 06:22] LABS: BUN/CREATININE RATIO 19; CARBON DIOXIDE 19 MMOL/L (21-32); CHLORIDE 105 MMOL/L (98-107); CREATININE SERUM 0.59 MG/DL (0.60-1.30); GFR ESTIMATED > 60; GLUCOSE 103 MG/DL (70-105); MAGNESIUM 1.7 MG/DL (1.6-2.4); PHOSPHORUS 2.9 MG/DL (2.3-4.7); POTASSIUM 3.7 MMOL/L (3.6-5.0); SODIUM 133 MMOL/L (135-145)
[2020-03-16 06:28] LABS: VANCOMYCIN,TROUGH 12.2 UG/ML (10.0-20.0)
[2020-03-16] MEDS: CATHETER FLUSH 10 ML SYR IV SCH ×2 (06:42→08:36)
[2020-03-16] MEDS: MICONAZOLE 2% POWDER (DESENEX AF) 90 GM TOP SCH ×2 (08:36→22:25)
[2020-03-16] MEDS: NYSTATIN CREAM (MYCOSTATIN) 30 GM TUBE TP SCH ×2 (08:36→22:26)
--- NOTE | 2020-03-16 08:37 | NUR ---
Just finished changing ostomy & flange, & abdominal drsg after pt noted leaking from the ostomy. Noted mild redness of skin around ostomy. Cleansed well & skin barrier applied, abd incision w balbina intact w noted small areas of minimal gaping at proximal incision, although incision is still approximated w balbina intact. Cleansed well w chlorhexidine/alcohol swabs & skin barrier to surrounding skin to protect. Pt breezy well. Meds applied to reddened area in Rt abdominal folds as ordered, see EMAR. Dr. Taveras has been in, notified of incision. CT of abd & pelvis ordered. PT working w OT now. Have spent the last hour w the pt, doing drsg & ostomy changes, gathering supplies. Pt consented to midline or PICC for IV access.
[2020-03-16] MEDS ORDERED: VANCOMYCIN 1 GM/NS 250 ML IVPB IV SCH ×2 (09:00)
--- NOTE | 2020-03-16 09:26 | Occupational Ther Daily Note ---
OT Current Status-Daily Note Subjective Pt laying in bed at start of session with nursing present. Pt agreeable to OT session with focus on ADLS. Pt reported pain during transfers from sit to stand, but she did not verbalize pain rating. Mental Status/Objective Patient Orientation: Normal For Age Attachments: Colostomy/Ileostomy ADL-Treatment Therapy Code Descriptions/Definitions Functional [place] Measure: 0=Not Assessed/NA 4=Minimal Assistance 1=Total Assistance 5=Supervision or Setup 2=Maximal Assistance 6=Modified [place] 3=Moderate Assistance 7=Complete IndependenceSCALE: Activities may be completed with or without assistive devices. 5-Yriszeyupb-xldxfbe completes the activity by him/herself with no assistance from a helper. 5-Set-up or Clean-up Assistance-helper sets up or cleans up; patient completes activity. [place] assists only prior to or following the activity. 4-Supervision or Touching Assistance-helper provides verbal cues and/or touching/steadying and/or contact guard assistance as patient completes activity. Assistance may be provided throughout the activity or intermittently. 3-Partial/Moderate Assistance-helper does LESS THAN HALF the effort. [place] lifts, holds or supports trunk or limbs, but provides less than half the effort. 2-Substantial/Maximal Assistance-helper does MORE THAN HALF the effort. [place] lifts or holds trunk or limbs and provides more than half the effort. 9-Wwdbfhpaw-jkiwvp does ALL the effort. Patient does none of the effort to complete the activity. Or, the assistance of 2 or more helpers is required for the patient to complete the activity. If activity was not attempted, code reason: 7-Patient Refused. 9-Not Applicable-not attempted and the patient did not perform the activity before the current illness, exacerbation or injury. 10-Not Attempted due to Environmental Limitations-(lack of equipment, weather restraints, etc.). 88-Not Attempted due to Medical Conditions or Safety Concerns. Shower/Bathe Self (QC): 3 (Sponge Bath: Pt seated EOB. She was able to wash all parts, required min A with LEs due to thoroughness. SBA during stand at FWW.) Lower Body Dressing (QC): 3 (OT educated pt on using revenue stamp cutter to don brief. OT demo'd revenue stamp cutter, then pt able to thread legs into brief with min A. Pt required SBA during stand at FWW as she managed briefs up.) Other Treatment Pt laying in bed agreeable to OT tx with focus on ADLs. Nurse finished changing ostomy as OT gathered and set up supplies for ADL tx. Pt transferred supine to sit EOB with min A. Pt completed sponge bath, with multiple rest breaks throughout task. Pt instructed by nurse to finish drinking liquid given prior to scan this AM. Pt drank liquid throughout session on rest breaks. Pt donned hospital gown. Pt dependent for donning tedhose, OT then donned socks for pt. No footwear QC score given due to pt not given opportunity to don socks secondary to time constraint. Post OT session, pt seated EOB, call light in reach and all needs met. Education OT Patient Education: Correct positioning, Energy conservation, Modified ADL techniques, Progress toward Goal/Update tx plan, Purpose of tx/functional activities, Transfer techniques Teaching Recipient: Patient Teaching Methods: Discussion Response to Teaching: Verbalize Understanding OT Short Term Goals Short Term Goals Upper body dressin Lower body dressin Putting on/taking off footwear: 5 OT Alf Goals Cardroom Plastic Card Grader Goals Time Frame: March 27, 2020 Eating (QC): 6 Oral Hygiene (QC): 6 Toileting Hygiene (QC): 6 Shower/Bathe Self (QC): 6 Upper Body Dressing (QC): 6 Lower Body Dressing (QC): 6 On/Off Footwear (QC): 6 Additional Goals: 1-Demonstrate ADL Tasks, 2-Verbalize Understanding, 3- ImproveStrength/Fern 1=Demonstrate adherence to instructed precautions during ADL tasks. 2=Patient will verbalize/demonstrate understanding of assistive devices/modifications for ADL. 3=Patient will improve strength/tolerance for activity to enable patient to perform ADL's. OT Education/Plan Problem List/Assessment Assessment: Decreased Activ Tolerance, Decreased UE Strength, Impaired Funct Balance, Impaired I ADL's, Impaired Self-Care Skills Discharge Recommendations Plan/Recommendations: Continue POC Treatment Plan/Plan of Care Patient would benefit from OT for education, treatment and training to promote independence in ADL's, mobility, safety and/or upper extremity function for ADL's. Plan of Care: ADL Retraining, Concurrent Therapy, Functional Mobility, Group Exercise/Act as Ind, UE Funct Exercise/Act Treatment Duration: March 27, 2020 Frequency: At least 5 of 7 days/Wk (IRF) Estimated Hrs Per Day: 1.5 hours per day Agreement: Yes Rehab Potential: Fair Time/GCodes Start Time: 08:15 Stop Time: 09:15 Total Time Billed (hr/min): 60 Billed Treatment Time 1, ADL 4 SHAVON BARTLETT OT Mar 16, 2020 09:26
[2020-03-16] MEDS: RT-ALBUTEROL SULF 2.5 MG/3 ML PRE-MIX VIAL INH SCH ×2 (09:42→18:45)
[2020-03-16] MEDS: MAGIC MOUTHWASH (ADULT) PO SCH ×16 (09:52→22:22)
--- NOTE | 2020-03-16 10:01 | NUR ---
Unable to administer IV meds d/t peripheral IV has infiltrated, placed order for midline or PICC for pt's IV ATB's & Venofer. Just spoke w IV auto accessories installer, Melba, notified that pt has CT scheduled for 10:30. Notified Pharmacy of all this.
[2020-03-16] MEDS: meTOprolol TARTRATE 50 MG (LOPRESSOR) TAB PO SCH ×2 (10:05→22:20)
[2020-03-16] MEDS: PANTOPRAZOLE 40 MG (PROTONIX) TAB PO SCH (10:05)
[2020-03-16] MEDS: ASPIRIN 81 MG CHEW (CHILDREN'S ASA) PO SCH (10:05)
[2020-03-16] MEDS: CLOPIDOGREL 75 MG (PLAVIX) TABLET PO SCH (10:05)
[2020-03-16] MEDS: DOCUSATE SODIUM 100 MG (COLACE) CAP PO SCH ×2 (10:06→22:24)
[2020-03-16] MEDS: SENNA W/DOCUSATE (SENOKOT S) TABLET PO SCH ×2 (10:06→22:25)
[2020-03-16] MEDS: polyethylene glycoL POWDER 17 GM (MIRALAX) PACK PO SCH ×2 (10:06→22:24)
--- NOTE | 2020-03-16 10:14 | Physical Therapy Daily Note ---
PT Daily Note-Current Subjective Pt. agrees to Rx. States her chief complaint today is her tongue is so irritated and painful. Comments that she is going down for a test and needs to finish her "cocktail" Pain Numeric Pain Scale: 5-Moderate Pain Location: Medial Location Body Site: Throat (specifically tongue) Pain Description: Burning Mental Status Patient Orientation: Normal For Age Transfers SCALE: Activities may be completed with or without assistive devices. 3-Lkjjqnwiji-otnjeoj completes the activity by him/herself with no assistance from a helper. 5-Set-up or Clean-up Assistance-helper sets up or cleans up; patient completes activity. [place] assists only prior to or following the activity. 4-Supervision or Touching Assistance-helper provides verbal cues and/or touching/steadying and/or contact guard assistance as patient completes activity. Assistance may be provided throughout the activity or intermittently. 3-Partial/Moderate Assistance-helper does LESS THAN HALF the effort. [place] lifts, holds or supports trunk or limbs, but provides less than half the effort. 2-Substantial/Maximal Assistance-helper does MORE THAN HALF the effort. [place] lifts or holds trunk or limbs and provides more than half the effort. 0-Nvewklngn-htjudl does ALL the effort. Patient does none of the effort to complete the activity. Or, the assistance of 2 or more helpers is required for the patient to complete the activity. If activity was not attempted, code reason: 7-Patient Refused. 9-Not Applicable-not attempted and the patient did not perform the activity before the current illness, exacerbation or injury. 10-Not Attempted due to Environmental Limitations-(lack of equipment, weather restraints, etc.). 88-Not Attempted due to Medical Conditions or Safety Concerns. Sit to Stand (QC): 5 Chair/Xsb-jh-Iptem Xfer(QC): 5 multiple sit to stands from chair with arms and recliner all with SBA Gait Training Does the Patient Walk?: Yes Walk 10 feet (QC): 5 Walk 50 ft with 2 Turns(QC): 5 Gait Persons Needed: 1 Gait Assistive Device: FWW 60ft x 6, 80 ft x 1 FWW SBA slow, no LOB, flexed at trunk , moderate wt bearing on FWW Exercises Supine Ex: Ankle pumps, Quad Set, Glut sets, Hip abd/add Supine Reps: 15 Seated Therapy Exercises: Ankle pumps, Sit to stand, Long arc quads, Hip flexion, Hip abd/add Seated Reps: 15 Treatments pt. trying to finish drinking cocktail to prepare for CT scan. Assessment Current Status: Good Progress needs encouragement to keep walking and progressing PT Short Term Goals Short Term Goals Time Frame: Mar 20, 2020 Roll Left & Right: 3 Sit to lyin Lying to sitting on side of be: 3 Sit to stand: 4 Chair/amd-zh-gfwho transfer: 4 Walk 10 feet: 4 Walk 50 feet with two turns: 4 Walk 150 feet: 4 PT Mcfp Goals Supervisor Of Way Goals PT Supervisor Of Way Goals Time Frame: April 03, 2020 Roll Left & Right (QC): 6 Sit to Lying (QC): 6 Lying-Sitting on Side/Bed(QC): 6 Sit to Stand (QC): 6 Chair/Atl-gu-Wkref Xfer(QC): 6 Toilet Transfer (QC): 6 Car Transfer (QC): 6 Does the Patient Walk: Yes Walk 10 feet (QC): 6 Walk 50ft with 2 Turns (QC): 6 Walk 150 ft (QC): 6 Walking 10ft on Uneven Surface: 6 1 Step (curb) (QC): 4 4 Steps (QC): 4 12 Steps (QC): 88 Picking up an Object (QC): 88 Wheel 50 feet with 2 turns (QC: 88 Wheel 150 feet: 88 PT Plan Treatment/Plan Treatment Plan: Continue Plan of Care Treatment Plan: Bed Mobility, Education, Functional Activity [place], Functional Strength, Group Therapy, Gait, Safety, Therapeutic Exercise, Transfers Treatment Duration: April 03, 2020 Frequency: At least 5 of 7 days/Wk (IRF) Estimated Hrs Per Day: 1.5 hours per day Patient and/or Family Agrees t: Yes Safety Risks/Education Patient Education: Gait Training, Transfer Techniques, Correct Positioning, Disease Process, Safety Issues Teaching Recipient: Patient Teaching Methods: Demonstration, Discussion Response to Teaching: Verbalize Understanding, Return Demonstration, Reinforcement Needed Time/GCodes Time In: 915 Time Out: 1015 Total Billed Treatment Time: 60 Total Billed Treatment 1,GT30m,EX15m,FA15m AN CHUN CERTIFIED PHARMACY TECHNICIAN Mar 16, 2020 10:14
[2020-03-16] MEDS ORDERED: DIATRIZOATE MEGLUM/SODIUM 37% 120 ML (GASTROGRAFIN) PO ONE (10:15)
[2020-03-16] MEDS ORDERED: HOLD METFORMIN - RECEIVED CONTRAST 20 ML VIAL IV SCH (10:15)
[2020-03-16] MEDS ORDERED: NS 100 ML (IVPB) BAG IV ONE (10:15)
[2020-03-16] MEDS ORDERED: IOHEXOL 350 MG/ML 100 ML (OMNIPAQUE 350) VIAL IV ONE (10:15)
--- NOTE | 2020-03-16 11:33 | Progress Note - Surgery ---
Subjective Time Seen by a Provider: 11:18 Subjective/Events-last exam Pt seen and examined, denies much pain but still feels weak. She thinks she may not be as weak. Review of Systems General: Fatigue, Malaise Pulmonary: No Cough, No Pleuritic Chest Pain Cardiovascular: No: Chest Pain, Palpitations Gastrointestinal: No: Nausea, Vomiting Focused Exam Lactate Level 03/14/20 09:00: Lactic Acid Level 0.88 Objective Exam Vital Signs Date Time Temp Pulse Resp B/P (MAP) Pulse Ox O2 Delivery O2 Flow Rate FiO2 03/16/20 06:00 37.8 114 26 126/84 (98) 94 Room Air 03/15/20 22:18 95 Room Air 03/15/20 21:00 Room Air 03/15/20 17:19 37.2 117 20 110/74 (86) 99 Room Air 03/15/20 15:04 37.0 03/15/20 11:26 37.4 117 22 122/80 (94) 96 Room Air I & O 03/16/20 07:00 Intake Total 1940 ml Output Total 4080 ml Balance -2140 ml Capillary Refill : Less Than 3 Seconds General Appearance: No Apparent Distress, Anxious, Chronically ill HEENT: PERRL/EOMI, Moist Mucous Membranes Respiratory: Chest Non Tender, Lungs Clear, No Accessory Muscle Use, No Respiratory Distress, Decreased Breath Sounds Cardiovascular: Regular Rate, Rhythm, No Murmur Gastrointestinal: soft, distended (mild), other (incision is improved compared to Monday, iliostomy with good output) Extremity: Pedal Edema (2+ legs) Neurologic/Psychiatric: Alert, Oriented x3, box truck driver II-XII Norm as Tested, Motor Weakness (generalized all extremties) Results Lab Laboratory Tests 03/15/20 12:35: Vancomycin Level Trough 27.5*H 03/16/20 05:45: Vancomycin Level Trough 12.2, White Blood Count 18.1H, Red Blood Count 2.80L, Hemoglobin 7.2L, Hematocrit 23L, Mean Corpuscular Volume 81, Mean Corpuscular Hemoglobin 26, Mean Corpuscular Hemoglobin Concent 32, Red Cell Distribution Width 23.6H, Platelet Count 633H, Mean Platelet Volume 8.6, Neutrophils (%) (Auto) 84H, Lymphocytes (%) (Auto) 7L, Monocytes (%) (Auto) 8, Eosinophils (%) ( Auto) 2, Basophils (%) (Auto) 0, Neutrophils # (Auto) 15.2H, Lymphocytes # (Auto) 1.2, Monocytes # (Auto) 1.4H, Eosinophils # (Auto) 0.3, Basophils # (Auto) 0.0, Sodium Level 133L, Potassium Level 3.7, Chloride Level 105, Carbon Dioxide Level 19L, Anion Gap 9, Blood Urea Nitrogen 11, Creatinine 0.59L, Estimat Glomerular Filtration Rate > 60, BUN/Creatinine Ratio 19, Glucose Level 103, Calcium Level 7.0L, Phosphorus Level 2.9, Magnesium Level 1.7 Microbiology 03/14/20 Blood Culture - Preliminary, Resulted No growth Assessment/Plan Assessment/Plan Assessment/Plan Ascites Weakness S/P Subtotal Colectomy CT abd/pelvis shows a large amount of fluid in the abdomen, no free air, some dilated loops of small bowel and a lot of food in her stomach. I spoke with the radiologist and he is going to try and tap some of the fluid; which may be diagnostic and therapeutic. Encourage protein intake and ambulation. I don't think she has a small bowel obstruction, because she has a lot of output in ileostomy. Continue rehab. Clinical Quality Measures DVT/VTE Risk/Contraindication: Risk Factor Score Per Nursin RFS Level Per Nursing on Admit: 4+=Very High SHEILA DE OLIVEIRA DO Mar 16, 2020 11:33
--- NOTE | 2020-03-16 11:36 | Occupational Ther Daily Note ---
OT Current Status-Daily Note Subjective Pt returning from scan at start of session, agreeable to OT evaluation. She reports pain in her mouth/lips with oral hygiene, but did not verbalize pain rating. Mental Status/Objective Patient Orientation: Normal For Age ADL-Treatment Therapy Code Descriptions/Definitions Functional [place] Measure: 0=Not Assessed/NA 4=Minimal Assistance 1=Total Assistance 5=Supervision or Setup 2=Maximal Assistance 6=Modified [place] 3=Moderate Assistance 7=Complete IndependenceSCALE: Activities may be completed with or without assistive devices. 2-Mpybioczrl-jdgovzi completes the activity by him/herself with no assistance from a helper. 5-Set-up or Clean-up Assistance-helper sets up or cleans up; patient completes activity. [place] assists only prior to or following the activity. 4-Supervision or Touching Assistance-helper provides verbal cues and/or touching/steadying and/or contact guard assistance as patient completes activity. Assistance may be provided throughout the activity or intermittently. 3-Partial/Moderate Assistance-helper does LESS THAN HALF the effort. [place] lifts, holds or supports trunk or limbs, but provides less than half the effort. 2-Substantial/Maximal Assistance-helper does MORE THAN HALF the effort. [place] lifts or holds trunk or limbs and provides more than half the effort. 6-Ypnibdjtj-zwlwvk does ALL the effort. Patient does none of the effort to complete the activity. Or, the assistance of 2 or more helpers is required for the patient to complete the activity. If activity was not attempted, code reason: 7-Patient Refused. 9-Not Applicable-not attempted and the patient did not perform the activity before the current illness, exacerbation or injury. 10-Not Attempted due to Environmental Limitations-(lack of equipment, weather restraints, etc.). 88-Not Attempted due to Medical Conditions or Safety Concerns. Oral Hygiene (QC): 5 (set up, pt attempted to brush her teeth with toothbrush but reports increased pain. OT provided pt with foam swab and pt able to use it with less pain.) Other Treatment OT assisted pt from transfer chair to recliner. Pt brushed teeth with set up. She then removed beads from red theraputty in order to increase fine motor strength and endurance. PICC nurse arrived in order to place PICC line. OT a ssisted pt from recliner to bed. Pt transferred from EOB to supine, OT assisted pt with getting both legs into bed. Post OT session, pt laying in bed call light in reach and all needs met with PICC nurse present. Education OT Patient Education: Correct positioning, Energy conservation, Exercise program, Modified ADL techniques, Progress toward Goal/Update tx plan, Purpose of tx/functional activities, Transfer techniques Teaching Recipient: Patient Teaching Methods: Discussion Response to Teaching: Verbalize Understanding OT Short Term Goals Short Term Goals Upper body dressin Lower body dressin Putting on/taking off footwear: 5 OT Parachute Mender Goals Halfway Goals Time Frame: March 27, 2020 Eating (QC): 6 Oral Hygiene (QC): 6 Toileting Hygiene (QC): 6 Shower/Bathe Self (QC): 6 Upper Body Dressing (QC): 6 Lower Body Dressing (QC): 6 On/Off Footwear (QC): 6 Additional Goals: 1-Demonstrate ADL Tasks, 2-Verbalize Understanding, 3- ImproveStrength/Fern 1=Demonstrate adherence to instructed precautions during ADL tasks. 2=Patient will verbalize/demonstrate understanding of assistive devices/modifications for ADL. 3=Patient will improve strength/tolerance for activity to enable patient to perform ADL's. OT Education/Plan Problem List/Assessment Assessment: Decreased Activ Tolerance, Decreased UE Strength, Impaired Funct Balance, Impaired I ADL's, Impaired Self-Care Skills Discharge Recommendations Plan/Recommendations: Continue POC Treatment Plan/Plan of Care Patient would benefit from OT for education, treatment and training to promote independence in ADL's, mobility, safety and/or upper extremity function for ADL's. Plan of Care: ADL Retraining, Concurrent Therapy, Functional Mobility, Group Exercise/Act as Ind, UE Funct Exercise/Act Treatment Duration: March 27, 2020 Frequency: At least 5 of 7 days/Wk (IRF) Estimated Hrs Per Day: 1.5 hours per day Agreement: Yes Rehab Potential: Fair Time/GCodes Start Time: 10:57 Stop Time: 11:27 Total Time Billed (hr/min): 30 Billed Treatment Time 1, FA 2 SHAVON BARTLETT OT Mar 16, 2020 11:36
--- NOTE | 2020-03-16 11:38 | PM&R Progress Note ---
Subjective HPI/CC On Admission Date Seen by Provider: Mar 16, 2020 Time Seen by Provider: 10:15 Subjective/Events-last exam Patient doing better each day Slept well last night again Fever and w/u ordered by Dr Taveras prompted starting IV abx for facility acquire infection Abx D#3 Anasarca managed with Lasix and decreasing fluid in legs gradually but CT scan completed and Dr Ji noted ascites which may need to be drained Poor nutrition with albumin 2.0 is causing the third spacing also Pain is tolerated Iliostomy working well for the patient Checked meds and labs Conferred with RN Reviewed therapy notes Review of Systems General: Fatigue Cardiovascular: Edema Focused Exam Lactate Level 03/14/20 09:00: Lactic Acid Level 0.88 Objective Exam Vital Signs Vital Signs Date Time Temp Pulse Resp B/P (MAP) Pulse Ox O2 Delivery O2 Flow Rate FiO2 03/16/20 18:45 94 Room Air 03/16/20 18:26 120 20 123/78 (93) 03/16/20 15:45 36.7 Capillary Refill : Less Than 3 Seconds General Appearance: No Apparent Distress, Anxious, Chronically ill HEENT: PERRL/EOMI, Moist Mucous Membranes Respiratory: Chest Non Tender, Lungs Clear, No Accessory Muscle Use, No Respiratory Distress, Decreased Breath Sounds Cardiovascular: Regular Rate, Rhythm, No Murmur Gastrointestinal: Normal Bowel Sounds, No Organomegaly, No Pulsatile Mass, Soft, Tenderness Back: Normal Inspection, No CVA Tenderness, No Vertebral Tenderness Extremity: Pedal Edema (2+ legs) Neurologic/Psychiatric: Alert, Oriented x3, furniture assembler II-XII Norm as Tested, Motor Weakness (generalized all extremties) Results/Procedures Lab Laboratory Tests 03/16/20 05:45 Patient resulted labs reviewed. FIM Transfers Therapy Code Descriptions/Definitions Functional [place] Measure: 0=Not Assessed/NA 4=Minimal Assistance 1=Total Assistance 5=Supervision or Setup 2=Maximal Assistance 6=Modified [place] 3=Moderate Assistance 7=Complete IndependenceSCALE: Activities may be completed with or without assistive devices. 9-Ngsnkkajcu-busysrj completes the activity by him/herself with no assistance from a helper. 5-Set-up or Clean-up Assistance-helper sets up or cleans up; patient completes activity. [place] assists only prior to or following the activity. 4-Supervision or Touching Assistance-helper provides verbal cues and/or touching/steadying and/or contact guard assistance as patient completes activity. Assistance may be provided throughout the activity or intermittently. 3-Partial/Moderate Assistance-helper does LESS THAN HALF the effort. [place] lifts, holds or supports trunk or limbs, but provides less than half the effort. 2-Substantial/Maximal Assistance-helper does MORE THAN HALF the effort. [place] lifts or holds trunk or limbs and provides more than half the effort. 3-Hpsylyfgx-glhvyy does ALL the effort. Patient does none of the effort to complete the activity. Or, the assistance of 2 or more helpers is required for the patient to complete the activity. If activity was not attempted, code reason: 7-Patient Refused. 9-Not Applicable-not attempted and the patient did not perform the activity before the current illness, exacerbation or injury. 10-Not Attempted due to Environmental Limitations-(lack of equipment, weather restraints, etc.). 88-Not Attempted due to Medical Conditions or Safety Concerns. Roll Left to Right (QC): 3 Sit to Lying (QC): 3 Sit to Stand (QC): 5 Chair/Vyr-ms-Lsjyv Xfer(QC): 5 Car Transfer (QC): 3 Gait Training Does the Patient Walk?: Yes Walk 10 feet (QC): 5 Walk 50 ft with 2 Turns(QC): 5 Walk 150 ft (QC): 4 Walking 10ft/uneven surface-QC: 4 Gait Persons Needed: 1 Gait Assistive Device: FWW Wheelchair Training Does the Pt Use a Wheelchair?: No Wheel 50 ft with 2 turns (QC): 9 Wheel 150 ft (QC): 9 Stair Training 1 Step (curb) (QC): 88 4 Steps (QC): 88 12 Steps (QC): 88 Balance Picking up an Object (QC): 88 ADL-Treatment Eating (QC): 6 Oral Hygiene (QC): 5 (set up, pt attempted to brush her teeth with toothbrush but reports increased pain. OT provided pt with foam swab and pt able to use it with less pain.) Shower/Bathe Self (QC): 3 (Sponge Bath: Pt seated EOB. She was able to wash all parts, required min A with LEs due to thoroughness. SBA during stand at [facility].) Upper Body Dressing (QC): 5 (s/u) Lower Body Dressing (QC): 3 (OT educated pt on using senior bioinformatics specialist to don brief. OT demo'd senior bioinformatics specialist, then pt able to thread legs into brief with min A. Pt required SBA during stand at FWW as she managed briefs up.) On/Off Footwear (QC): 3 (mod A- pt able to bring one foot over knee to don sock, pt unable to complete following foot, requires mod APt has PEPITO hose deshawn ed, would require max A for knee high TEDs) Toileting Hygiene (QC): 4 (SBA in stance per pt report and per clinical judgment ) Assessment/Plan Assessment and Plan Assess & Plan/Chief Complaint Assessment: Debility s/p critical illness and VDRF 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 Anasarca Hirsutism Poor albumin level Sore mouth added Nystatin and Magic mouthwash Fever Zosyn added by Dr Taveras empirically Ascites Plan: Mouth treatment is improving status IRF protocol Lab monitored Check labs periodically Wound care to iliostomy site Paracentesis? (1) S/P colectomy (2) Ileostomy in place (3) Hirsutism (4) Tachycardia (5) Anasarca (6) Anemia (7) Debility (8) Sigmoid volvulus (9) Leukocytosis (10) Acute kidney injury (11) Hyponatremia (12) Coronary artery disease (13) Abdominal pain Status: Acute (14) Elevated troponin (15) S/P cardiac cath SESAR BEEBE DO Mar 16, 2020 11:38
--- NOTE | 2020-03-16 11:41 | Diagnostic Imaging Report ---
EXAMINATION: CT Abdomen and Pelvis with intravenous contrast. TECHNIQUE: Multiple contiguous axial images were obtained through the abdomen and pelvis after the uneventful administration of intravenous contrast. All CT scans use one or more of the following dose optimizing techniques: automated exposure control, MA and/or KvP adjustment based on a patient size and exam type, or iterative reconstruction. HISTORY: Concern for abscess. Colostomy 10 days ago. COMPARISON: CT abdomen and pelvis on 03/04/2020. FINDINGS: There is a focal outpouching at the left ventricular apex, concerning for left ventricular aneurysm. Trace pleural effusions are seen with a small amount of bibasilar atelectasis. Interval colectomy changes are visualized with a right lower quadrant ostomy. There has been interval development of a moderate amount of ascites throughout the abdomen. Isoattenuating material is seen in the left hemiabdomen, concerning for blood products. There are fluid-filled dilated loops of small bowel throughout the abdomen. The stomach is also moderately distended with ingested contents. No free intraperitoneal air is seen. No loculated fluid collection is seen in the abdomen to suggest abscess. A small amount of fluid and subcutaneous air is seen at the insertion site of the ventral abdomen. The liver, spleen, pancreas, adrenal glands, and kidneys have a normal appearance. There is no pathologically enlarged mesenteric or retroperitoneal adenopathy. No acute osseous abnormalities. Anasarca is noted. The urinary bladder is mildly distended. There is no free air, loculated collection, or adenopathy in the pelvis. IMPRESSION: 1. Postsurgical changes of colectomy and right lower quadrant ostomy. A moderate amount of ascites is seen throughout the abdomen with isoattenuating material in the left hemiabdomen concerning for blood products. No obvious active extravasation is seen. Consider paracentesis and fluid analysis to further evaluate. 2. Fluid-filled distended loops of small bowel throughout the abdomen. This is favored to represent ileus given the recent surgical changes. No transition point is seen to suggest obstruction. NG tube may be considered to decompress. 3. Focal outpouching at the left ventricular apex, which can be seen with left ventricular aneurysm. Recommend correlation with a recent history of myocardial infarction and EKG findings. Faxed to Froy Taveras DO at 11:40 a.m. by swapna Dictated by: Dictated on workstation # [id number]
[2020-03-16 12:42] LABS: INR 1.5 (0.8-1.4); PROTHROMBIN TIME PATIENT 18.3 SEC (12.2-14.7)
[2020-03-16] MEDS ORDERED: LIDOCAINE 1% INJ 20 ML 20 ML VIAL INJ NR (12:45)
--- NOTE | 2020-03-16 13:04 | Diagnostic Imaging Report ---
HISTORY: PICC placement TECHNIQUE: Frontal view of the chest. COMPARISON: 03/14/2020 FINDINGS: The right PICC projects over the superior cavoatrial junction. Lung volumes are low. No focal consolidation is seen. There is no pleural effusion or pneumothorax. The cardiac silhouette is normal in size and contour given lung volumes. There are degenerative changes in the shoulders bilaterally. There may be calcifications of the right shoulder suggesting calcific tendinitis. IMPRESSION: 1. The tip of the right PICC projects over the cavoatrial junction. Dictated by: Dictated on workstation # [id number]
[2020-03-16] MEDS ORDERED: LIDOCAINE 1% INJ 20 ML 20 ML VIAL ONE (13:20)
--- NOTE | 2020-03-16 13:25 | NUR ---
CM/SS ADMISSION Patient was admitted to ARU 03/13/20 from [facility] for debility, status post colectomy with new ileostomy. Medical inpatient stay, in addition to abdominal surgery, included ventilation and cardiac catheterization. Patient comorbidities include, in part, CAD, Anemia, weight gain of approx 30# since admission. Patient is medically complex with reduced energy and endurance, decreased balance and pain with movement. PICC line inserted this a.m. PCP: Dr. Veda Rm MD and Heide Mclaughlin APRN, in [facility], [facility]. [phone] PHARMACY: [facility] INSURANCE: Uninsured, now unemployed. DME: Was independent prior to onset of illness/surgery/continued hospitalization. Her home has walk-in shower with grab bars, standard toilet. CONTACTS: Patient lists friend Donna Perez of [facility], . Will explore further when patient is more improved for conversation. BARRIERS TO DISCHARGE: Discharge will need to be carefully planned because of self-pay status. 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 Patient will have an extended recovery time regarding any future employment or applications for same. Will explore [facility] Financial Assistance, [employer], Disability, depending on patient functional recovery. Patient has indicated she will go home with her friend at discharge, will confirm that arrangement when able. Will need ileostomy supplies and probable Rx assistance. Patient understood the purpose and process of the Weekly Team Conference as it relates to length of stay and planning for discharge.
--- NOTE | 2020-03-16 13:36 | NUR ---
Parencentesis being done by Radiologist & staff. Brandi PICC line RN has called & stated that pt's PICC is in place & can be used. This RN will administer IV meds as ordered as soon as parencentesis procedure is done & can get to pt.
--- NOTE | 2020-03-16 14:15 | Physical Therapy Daily Note ---
PT Daily Note-Current Subjective Pt. states she is exhausted after all the procedures she has had today. Pt. agrees to bed exercises with rest breaks. Pt. states she sure could go for a brownie with ice cream. This was forwarded to Nurse and tech Pain Location: No Pain Reported Mental Status Patient Orientation: Normal For Age Transfers SCALE: Activities may be completed with or without assistive devices. 5-Loevpztrhn-ubgkdgp completes the activity by him/herself with no assistance fr om a helper. 5-Set-up or Clean-up Assistance-helper sets up or cleans up; patient completes activity. [place] assists only prior to or following the activity. 4-Supervision or Touching Assistance-helper provides verbal cues and/or touching/steadying and/or contact guard assistance as patient completes activity. Assistance may be provided throughout the activity or intermittently. 3-Partial/Moderate Assistance-helper does LESS THAN HALF the effort. [place] lifts, holds or supports trunk or limbs, but provides less than half the effort. 2-Substantial/Maximal Assistance-helper does MORE THAN HALF the effort. [place] lifts or holds trunk or limbs and provides more than half the effort. 4-Xuycpfuke-rvxqay does ALL the effort. Patient does none of the effort to complete the activity. Or, the assistance of 2 or more helpers is required for the patient to complete the activity. If activity was not attempted, code reason: 7-Patient Refused. 9-Not Applicable-not attempted and the patient did not perform the activity before the current illness, exacerbation or injury. 10-Not Attempted due to Environmental Limitations-(lack of equipment, weather restraints, etc.). 88-Not Attempted due to Medical Conditions or Safety Concerns. pt. attempted pushing self up in bed using rails with HOB flat but needed mod assist Exercises Supine Ex: Bridging, Ankle pumps, Quad Set, Glut sets, Heel Slides, Scooting (attempted), Hip abd/add Supine Reps: 15 Treatments UE shoulder flexion, shoulder abduction both x 15 reps Assessment Current Status: Fair Progress very fatigued, limited tolerance for Rx this afternoon PT Short Term Goals Short Term Goals Time Frame: Mar 20, 2020 Roll Left & Right: 3 Sit to lyin Lying to sitting on side of be: 3 Sit to stand: 4 Chair/thg-fg-unjzh transfer: 4 Walk 10 feet: 4 Walk 50 feet with two turns: 4 Walk 150 feet: 4 PT News Camera Operator Goals Chcf Goals PT Chcf Goals Time Frame: April 03, 2020 Roll Left & Right (QC): 6 Sit to Lying (QC): 6 Lying-Sitting on Side/Bed(QC): 6 Sit to Stand (QC): 6 Chair/Tks-ar-Vlwgt Xfer(QC): 6 Toilet Transfer (QC): 6 Car Transfer (QC): 6 Does the Patient Walk: Yes Walk 10 feet (QC): 6 Walk 50ft with 2 Turns (QC): 6 Walk 150 ft (QC): 6 Walking 10ft on Uneven Surface: 6 1 Step (curb) (QC): 4 4 Steps (QC): 4 12 Steps (QC): 88 Picking up an Object (QC): 88 Wheel 50 feet with 2 turns (QC: 88 Wheel 150 feet: 88 PT Plan Treatment/Plan Treatment Plan: Continue Plan of Care Treatment Plan: Bed Mobility, Education, Functional Activity Fern, Functional Strength, Group Therapy, Gait, Safety, Therapeutic Exercise, Transfers Treatment Duration: April 03, 2020 Frequency: At least 5 of 7 days/Wk (IRF) Estimated Hrs Per Day: 1.5 hours per day Patient and/or Family Agrees t: Yes Time/GCodes Time In: 1345 Time Out: 1415 Total Billed Treatment Time: 30 Total Billed Treatment 1,EX30m AN CHUN HOT SHOT Mar 16, 2020 14:15
[2020-03-16 14:39] LABS: GLUCOSE,BODY FLUID 94 MG/DL
[2020-03-16 14:40] LABS: AMYLASE,BODY FLUID 47 U/L; LDH,BODY FLUID 586 U/L; TOTAL PROTEIN,BODY FLUID 2.8 G/DL
[2020-03-16] MEDS: IRON SUCROSE 200 MG/10 ML (VENOFER) VIAL IV SCH (14:52)
[2020-03-16 15:00] VITALS: BP 128/81
[2020-03-16 15:15] VITALS: BP 130/84
[2020-03-16 15:18] LABS: BODY FLUID APPEARENCE MOD BLDY; BODY FLUID COLOR RED; BODY FLUID SOURCE PERITON; BODY FLUID WBC TOTAL COUNT 800 /uL
[2020-03-16 15:19] LABS: BODY FLUID RBC COUNT 160000 /uL; LYMPHOCYTES,BODY FLUID 40 %
--- NOTE | 2020-03-16 15:25 | Diagnostic Imaging Report ---
EXAMINATION: Paracentesis. INDICATION: Ascites. TECHNIQUE: The CT abdomen/pelvis exam performed earlier today raised the question of complicated ascites within the abdomen. Following aseptic preparation of the skin and administration of local anesthesia, a 5 cm Yueh needle was advanced into a fluid collection in the right upper quadrant using ultrasound guidance. Approximately 200 cc of port wine colored fluid was removed. The patient tolerated the procedure and was dismissed in good condition. IMPRESSION: 1. There has been a successful ultrasound-guided aspiration of the fluid collection in the right upper quadrant. The final Pathology report is pending. 2. These results were called to Dr. Diony Ji. Dictated by: Dictated on workstation # [id number]
[2020-03-16 15:45] VITALS: BP 124/81
[2020-03-16 16:26] VITALS: BP 119/77
--- NOTE | 2020-03-16 17:42 | NUR ---
Spoke w Pharmacist, Adrian, & notified that pt's IV meds were given late today d/t had to wait until pt had PICC line placed, & for x-ray to confirm placement. Adrian stated that he will re-time the medicine.
--- NOTE | 2020-03-16 17:44 | Cardiology Progress Note ---
Cardiology SOAP Progress Note Subjective: No cardiac complaints. Objective: I&O/Vital Signs 03/17/20 03/17/20 03/17/20 03/17/20 05:09 06:46 10:05 10:10 Temp 36.4 36.4 Pulse 106 112 122 Resp 20 B/P (MAP) 120/78 (92) 118/80 (93) Pulse Ox 97 98 99 99 O2 Delivery Room Air Room Air Room Air FiO2 21 03/17/20 03/17/20 11:30 11:45 Temp 36.5 36.4 Pulse 104 104 Resp 24 24 B/P (MAP) 109/60 104/98 Pulse Ox 99 96 O2 Delivery Room Air Room Air 03/17/20 00:00 Intake Total 1425 ml Output Total 3280 ml Balance -1855 ml Constitutional: AAO x 3 Respiratory: chest is bilaterally symmetric, lungs clear to auscultation Cardiovascular: regular rate-rhythm, S1 and S2, systolic murmur Gastrointestional: other (recent abdominal surgery, abdominal exam was not done.) Extremities: pedal edema Neurologic/Psychiatric: no motor/sensory deficits, alert, normal mood/affect, oriented x 3 Skin: normal color Results/Procedures: Labs Laboratory Tests 03/16/20 13:47: Body Fluid Source PERITON, Body Fluid Color RED, Body Fluid Appearance MOD BLDY, Body Fluid WBC 800, Body Fluid RBC [id number], Body Fluid Polynuclear WBCs 50, Body Fluid Mononuclear WBCs 10, Body Fluid Lymphocytes 40, Body Fluid Other Cells , Body Fluid Glucose 94, Body Fluid Total Protein 2.8, Body Fluid Lactate Dehydrogenase 586, Body Fluid Amylase 47, Body Fluid Creatinine 0.51 03/17/20 06:15: White Blood Count 12.0H, Red Blood Count 2.58L, Hemoglobin 6.6*L, Hematocrit 21L , Mean Corpuscular Volume 82, Mean Corpuscular Hemoglobin 26, Mean Corpuscular Hemoglobin Concent 31L, Red Cell Distribution Width 24.4H, Platelet Count 498H, Mean Platelet Volume 8.4, Neutrophils (%) (Auto) 81H, Lymphocytes (%) (Auto) 8L, Monocytes (%) (Auto) 9, Eosinophils (%) (Auto) 2, Basophils (%) (Auto) 0, Neutrophils # (Auto) 9.7H, Lymphocytes # (Auto) 1.0, Monocytes # (Auto) 1.1H, Eosinophils # (Auto) 0.2, Basophils # (Auto) 0.0, Sodium Level 136, Potassium Level 3.7, Chloride Level 108H, Carbon Dioxide Level 19L, Anion Gap 9, Blood Urea Nitrogen 8, Creatinine 0.56L, Estimat Glomerular Filtration Rate > 60, BUN/Creatinine Ratio 14, Glucose Level 88, Calcium Level 7.1L, Phosphorus Level 3.3, Magnesium Level 1.6 Microbiology 03/16/20 Gram Stain - Final, Resulted 03/16/20 Anaerobic Culture, Resulted Pending 03/16/20 Surgical Culture - Preliminary, Resulted 03/14/20 Blood Culture - Preliminary, Resulted No growth A/P: Assessment/Dx: Currently in inpatient rehabilitation. Sinus tach and leucocytosis, consider systemic infection (managed by Med and Surg Svces). Okay to DC telemetry. S/p colectomy for intestinal obstruction Marked post-op anemia, managed by the Surgical and Hospitalist Services - received 2 units of 03-09-2020 Hypokalemia, corrected Abnormal ECG, but no evidence of ac ND CAD, h/o cor stenting at [facility] in Oct 2019. Last card cath on 03/05/20: patent stents in the mid left circumflex and the mid right coronary arteries. There is moderate diffuse disease of all coronary arteries. There is moderately severe diffuse disease of the distal left anterior descending. A small caliber obtuse marginal has 70% to 80% ostial stenosis. Normal left ventricular end- diastolic pressure. Echo of 03/05/20: LVEF 60-65%, mild to mod TR, RVSP 35-40 mmHg, mild dilatation of LA Post-op hypotension and EMIGDIO 2, resolved Plan: * Beta nadeem * Continue DAPT because of recent coronary stenting * Monitor labs * I recommend DVT prophylaxis if no surgical contraindication. Will defer to Dr. Ji. Thank you for your consultation. Please call me if you have any questions. Odessa Allen MD, FACP, FACC, FSCAI, FHRS, CCDS Interventional Cardiology Cardiac Electrophysiology Vascular Medicine and Endovascular Interventions Focused Exam Lactate Level Kusum ALLEN MD Mar 16, 2020 17:44
[2020-03-16 18:26] VITALS: BP 123/78
[2020-03-17] VITALS (10 sets, daily range): BP systolic 104–129; BP diastolic 60–98
[2020-03-17] MEDS: PIPERACILLIN/TAZO 4.5 GM/NS 100 ML IV SCH ×8 (00:14→22:25)
[2020-03-17] MEDS: CATHETER FLUSH 10 ML SYR IV SCH ×4 (00:15→22:28)
[2020-03-17] MEDS: NYSTATIN ORAL SUSP 5 ML UDC PO SCH ×4 (00:26→17:20)
[2020-03-17] MEDS: VANCOMYCIN 1 GM/NS 250 ML IVPB IV SCH ×4 (03:41→14:48)
[2020-03-17] MEDS: RT-ALBUTEROL SULF 2.5 MG/3 ML PRE-MIX VIAL INH SCH (06:46)
[2020-03-17 07:50] LABS: BASOPHILS % (AUTO) 0 % (0-10); EOSINOPHILS # (AUTO) 0.2 10^3/uL (0.0-0.3); EOSINOPHILS % (AUTO) 2 % (0-10); HEMATOCRIT 21 % (35-52); LYMPHOCYTES % (AUTO) 8 % (12-44); MEAN CORPUSCULAR HEMOGLOBIN 26 PG (25-34); MEAN CORPUSCULAR HGB CONC 31 G/DL (32-36); MEAN CORPUSCULAR VOLUME 82 FL (80-99); MEAN PLATELET VOLUME 8.4 FL (7.4-10.4); MONOCYTES # (AUTO) 1.1 X 10^3 (0.0-1.0); MONOCYTES % (AUTO) 9 % (0-12); NEUTROPHILS # (AUTO) 9.7 X 10^3 (1.8-7.8); NEUTROPHILS % (AUTO) 81 % (42-75); PLATELET COUNT 498 10^3/uL (130-400); RED CELL DISTRIBUTION WIDTH 24.4 % (10.0-14.5)
[2020-03-17 07:52] LABS: HEMOGLOBIN 6.6 G/DL (11.5-16.0)
[2020-03-17 08:06] LABS: CHLORIDE 108 MMOL/L (98-107); POTASSIUM 3.7 MMOL/L (3.6-5.0); SODIUM 136 MMOL/L (135-145)
[2020-03-17 08:07] LABS: CALCIUM 7.1 MG/DL (8.5-10.1)
[2020-03-17 08:08] LABS: GLUCOSE 88 MG/DL (70-105)
[2020-03-17 08:09] LABS: CARBON DIOXIDE 19 MMOL/L (21-32)
[2020-03-17 08:11] LABS: PHOSPHORUS 3.3 MG/DL (2.3-4.7)
[2020-03-17 08:12] LABS: CREATININE SERUM 0.56 MG/DL (0.60-1.30); GFR ESTIMATED > 60
[2020-03-17 08:13] LABS: BUN/CREATININE RATIO 14
[2020-03-17 08:14] LABS: MAGNESIUM 1.6 MG/DL (1.6-2.4)
[2020-03-17] MEDS ORDERED: NS IV 500 ML 500 ML IV SCH (09:30)
[2020-03-17] MEDS: MAGIC MOUTHWASH (ADULT) PO SCH ×16 (09:48→22:12)
[2020-03-17] MEDS: meTOprolol TARTRATE 50 MG (LOPRESSOR) TAB PO SCH ×2 (09:55→21:56)
[2020-03-17] MEDS: PANTOPRAZOLE 40 MG (PROTONIX) TAB PO SCH (09:55)
[2020-03-17] MEDS: polyethylene glycoL POWDER 17 GM (MIRALAX) PACK PO SCH ×2 (09:56→21:56)
[2020-03-17] MEDS: SENNA W/DOCUSATE (SENOKOT S) TABLET PO SCH ×2 (09:56→21:56)
[2020-03-17] MEDS: DOCUSATE SODIUM 100 MG (COLACE) CAP PO SCH ×2 (09:56→21:55)
[2020-03-17] MEDS: NYSTATIN CREAM (MYCOSTATIN) 30 GM TUBE TP SCH ×2 (09:57→21:08)
[2020-03-17] MEDS: MICONAZOLE 2% POWDER (DESENEX AF) 90 GM TOP SCH ×2 (09:57→21:07)
--- NOTE | 2020-03-17 10:37 | NUR ---
late entry: ptd vancomycin labs: scr 0.59 (03/16) VANCOMYCIN LVLS 03/15 @1235 - 27.5, 03/16@ 0545 - 12.2 PHARMACOKINETIC CALC: KD ~ 0.0478 T1/2 ~ 14.5 HOURS plan: change vancomycin to 1,250mg iv q 12 hours, will repeat a trough level on 03/18 prior to morning dose. Addendum: 03/17/20 at 1051 by SARAH CHATTERJEE [facility] UPDATE: VANCOMYCIN DOSING TIMES CHANGED YESTERDAY AFTERNOON, WILL NOW DO A VANCOMYCIN LEVEL 03/18 @ 1400.
--- NOTE | 2020-03-17 10:39 | Occupational Ther Daily Note ---
OT Current Status-Daily Note Subjective Pt alert, sitting EOB. Nrsg in room. Pt to have IV line put in to administer blood. Hmg at 6.6 Mental Status/Objective Patient Orientation: Person, Place, Time, Situation Attachments: Central Line, Colostomy/Ileostomy, IV ADL-Treatment Pt agrees on education of footwear AE. Pt c/o pain at coccyx area with any movement, nrsg aware. Pt able to doff socks with dressing stick. Nrsg came in to start IV line. Assisted pt's B LE to lift into bed then assist to rotate due to pt's increased pain at coccyx area. Assist to don PEPITO hose in bed. Demonstrated how to use sock aide then pt returned demonstration in supine with assist. Pt will need continued education and direction to demonstrate proficiency with AE. Pt assisted with turning onto L side. After session, pt lying in bed with call light/phone in reach. All needs met in room. Therapy Code Descriptions/Definitions Functional [place] Measure: 0=Not Assessed/NA 4=Minimal Assistance 1=Total Assistance 5=Supervision or Setup 2=Maximal Assistance 6=Modified [place] 3=Moderate Assistance 7=Complete IndependenceSCALE: Activities may be completed with or without assistive devices. 7-Uzxzkxtrbu-lftjtvw completes the activity by him/herself with no assistance from a helper. 5-Set-up or Clean-up Assistance-helper sets up or cleans up; patient completes activity. [place] assists only prior to or following the activity. 4-Supervision or Touching Assistance-helper provides verbal cues and/or touching/steadying and/or contact guard assistance as patient completes activity. Assistance may be provided throughout the activity or intermittently. 3-Partial/Moderate Assistance-helper does LESS THAN HALF the effort. [place] lifts, holds or supports trunk or limbs, but provides less than half the effort. 2-Substantial/Maximal Assistance-helper does MORE THAN HALF the effort. [place] lifts or holds trunk or limbs and provides more than half the effort. 0-Whpqgtgai-khlwcz does ALL the effort. Patient does none of the effort to complete the activity. Or, the assistance of 2 or more helpers is required for the patient to complete the activity. If activity was not attempted, code reason: 7-Patient Refused. 9-Not Applicable-not attempted and the patient did not perform the activity before the current illness, exacerbation or injury. 10-Not Attempted due to Environmental Limitations-(lack of equipment, weather restraints, etc.). 88-Not Attempted due to Medical Conditions or Safety Concerns. On/Off Footwear: 2 Education OT Patient Education: Modified ADL techniques, Use of adapted equipment Teaching Recipient: Patient Teaching Methods: Demonstration, Discussion Response to Teaching: Verbalize Understanding, Return Demonstration, Reinforcement Needed OT Short Term Goals Short Term Goals Upper body dressin Lower body dressin Putting on/taking off footwear: 5 OT Fci Goals Fci Goals Time Frame: March 27, 2020 Eating (QC): 6 Oral Hygiene (QC): 6 Toileting Hygiene (QC): 6 Shower/Bathe Self (QC): 6 Upper Body Dressing (QC): 6 Lower Body Dressing (QC): 6 On/Off Footwear (QC): 6 Additional Goals: 1-Demonstrate ADL Tasks, 2-Verbalize Understanding, 3- ImproveStrength/Fern 1=Demonstrate adherence to instructed precautions during ADL tasks. 2=Patient will verbalize/demonstrate understanding of assistive devices/modifications for ADL. 3=Patient will improve strength/tolerance for activity to enable patient to perform ADL's. OT Education/Plan Problem List/Assessment Assessment: Decreased Activ Tolerance, Decreased UE Strength, Impaired Bed Mobility, Impaired Self-Care Skills Discharge Recommendations Plan/Recommendations: Continue POC Treatment Plan/Plan of Care Patient would benefit from OT for education, treatment and training to promote independence in ADL's, mobility, safety and/or upper extremity function for ADL's. Plan of Care: ADL Retraining, Concurrent Therapy, Functional Mobility, Group E xercise/Act as Ind, UE Funct Exercise/Act Treatment Duration: March 27, 2020 Frequency: At least 5 of 7 days/Wk (IRF) Estimated Hrs Per Day: 1.5 hours per day Agreement: Yes Rehab Potential: Fair Time/GCodes Start Time: 10:00 Stop Time: 11:00 Total Time Billed (hr/min): 60 Billed Treatment Time 1 visit-ADL 4 (60 min) LEYDA HOBSON Mar 17, 2020 10:39
--- NOTE | 2020-03-17 10:44 | Physical Therapy Daily Note ---
PT Daily Note-Current Subjective Pt up in chair, agreeable to treatment. Pt reports her bottom is sore. Pain rated 4/10. Occasional wincing with seated re-positioning during ther ex. C/o "legs are heavy" during LE strengthening. Mental Status Patient Orientation: Person, Place, Situation Transfers SCALE: Activities may be completed with or without assistive devices. 5-Mcvmdpvmrj-wyafvpy completes the activity by him/herself with no assistance from a helper. 5-Set-up or Clean-up Assistance-helper sets up or cleans up; patient completes activity. [place] assists only prior to or following the activity. 4-Supervision or Touching Assistance-helper provides verbal cues and/or touching/steadying and/or contact guard assistance as patient completes activity. Assistance may be provided throughout the activity or intermittently. 3-Partial/Moderate Assistance-helper does LESS THAN HALF the effort. [place] lifts, holds or supports trunk or limbs, but provides less than half the effort. 2-Substantial/Maximal Assistance-helper does MORE THAN HALF the effort. [place] lifts or holds trunk or limbs and provides more than half the effort. 1-Rqhtgocgf-bpkbdb does ALL the effort. Patient does none of the effort to complete the activity. Or, the assistance of 2 or more helpers is required for the patient to complete the activity. If activity was not attempted, code reason: 7-Patient Refused. 9-Not Applicable-not attempted and the patient did not perform the activity before the current illness, exacerbation or injury. 10-Not Attempted due to Environmental Limitations-(lack of equipment, weather restraints, etc.). 88-Not Attempted due to Medical Conditions or Safety Concerns. Gait Training Gait Assistive Device: FWW PT amb with FWW, f/u of w/c and IVpole 4 x 100ft. Pt allowed to rest 3-4 min between bouts. Exercises Supine Ex: Ankle pumps, Quad Set, Heel Slides Supine Reps: 20 Seated Therapy Exercises: Long arc quads, Hip abd/add Seated Reps: 20 Standing: Hip Abduction, Hamstring curls, Marching Standing Reps: 20 NuStep Minutes: 5 NuStep Workload: 5 Assessment Current Status: Fair Progress Pt fatigues easily, tolerated well with rest breaks as needed. Pt back to EOB in care of nurses post therapy session. PT Short Term Goals Short Term Goals Time Frame: Mar 20, 2020 Roll Left & Right: 3 Sit to lyin Lying to sitting on side of be: 3 Sit to stand: 4 Chair/vpf-bx-lyefb transfer: 4 Walk 10 feet: 4 Walk 50 feet with two turns: 4 Walk 150 feet: 4 PT Care Home Goals Software Development Test Engineer Goals PT Care Home Goals Time Frame: April 03, 2020 Roll Left & Right (QC): 6 Sit to Lying (QC): 6 Lying-Sitting on Side/Bed(QC): 6 Sit to Stand (QC): 6 Chair/Ymr-fv-Ccqyu Xfer(QC): 6 Toilet Transfer (QC): 6 Car Transfer (QC): 6 Does the Patient Walk: Yes Walk 10 feet (QC): 6 Walk 50ft with 2 Turns (QC): 6 Walk 150 ft (QC): 6 Walking 10ft on Uneven Surface: 6 1 Step (curb) (QC): 4 4 Steps (QC): 4 12 Steps (QC): 88 Picking up an Object (QC): 88 Wheel 50 feet with 2 turns (QC: 88 Wheel 150 feet: 88 PT Plan Treatment/Plan Treatment Plan: Continue Plan of Care Treatment Plan: Bed Mobility, Education, Functional Activity Fern, Functional Strength, Group Therapy, Gait, Safety, Therapeutic Exercise, Transfers Treatment Duration: April 03, 2020 Frequency: At least 5 of 7 days/Wk (IRF) Estimated Hrs Per Day: 1.5 hours per day Patient and/or Family Agrees t: Yes Time/GCodes Time In: 815 Time Out: 945 Total Billed Treatment Time: 90 Total Billed Treatment 1, gait x 45', Ther ex x 45' MOISÉS EMERSON CPTA Mar 17, 2020 10:44
[2020-03-17] MEDS ORDERED: NS IV 500 ML 500 ML ONE (10:53)
--- NOTE | 2020-03-17 11:46 | PM&R Progress Note ---
Subjective HPI/CC On Admission Date Seen by Provider: Mar 17, 2020 Time Seen by Provider: 12:00 Subjective/Events-last exam Patient anemic today requiring 2 units of blood today Dr Ji monitoring the issue Paracentesis 200cc performed which was bloody All anticoagulation helpd due to severe bleeding requiring transfusions Psych evaluation ordered Iliostomy managing well Checked meds and labs Conferred with RN Reviewed therapy notes Review of Systems General: Fatigue Gastrointestinal: Abdominal Pain Objective Exam Vital Signs Vital Signs Date Time Temp Pulse Resp B/P (MAP) Pulse Ox O2 Delivery O2 Flow Rate FiO2 03/18/20 17:26 37.0 112 20 121/82 (95) 98 Room Air 03/17/20 10:05 21 Capillary Refill : Less Than 3 Seconds General Appearance: No Apparent Distress, WD/WN, Anxious, Chronically ill HEENT: PERRL/EOMI, Normal ENT Inspection, Pharynx Normal, Moist Mucous Membranes Neck: Full Range of Motion, Non Tender, Supple Respiratory: Chest Non Tender, Lungs Clear, Normal Breath Sounds, No Accessory Muscle Use, No Respiratory Distress Cardiovascular: Regular Rate, Rhythm, No Edema, No Gallop, No JVD, No Murmur Gastrointestinal: Normal Bowel Sounds, No Organomegaly, No Pulsatile Mass, Soft, Tenderness Back: Normal Inspection, No CVA Tenderness, No Vertebral Tenderness Extremity: Normal Capillary Refill, Normal Inspection, Normal Range of Motion, Non Tender, No Calf Tenderness, Pedal Edema (2+ legs) Neurologic/Psychiatric: Alert, Oriented x3, No Motor/Sensory Deficits, Normal Mood/Affect, fourth hand II-XII Norm as Tested, Motor Weakness (generalized all extremties) Skin: Normal Color Lymphatic: No Adenopathy Results/Procedures Lab Laboratory Tests 03/18/20 07:25 Patient resulted labs reviewed. FIM Transfers Therapy Code Descriptions/Definitions Functional [place] Measure: 0=Not Assessed/NA 4=Minimal Assistance 1=Total Assistance 5=Supervision or Setup 2=Maximal Assistance 6=Modified [place] 3=Moderate Assistance 7=Complete IndependenceSCALE: Activities may be completed with or without assistive devices. 6-Tdznxmqzbu-ynlfypa completes the activity by him/herself with no assistance from a helper. 5-Set-up or Clean-up Assistance-helper sets up or cleans up; patient completes activity. [place] assists only prior to or following the activity. 4-Supervision or Touching Assistance-helper provides verbal cues and/or touching/steadying and/or contact guard assistance as patient completes activity. Assistance may be provided throughout the activity or intermittently. 3-Partial/Moderate Assistance-helper does LESS THAN HALF the effort. [place] lifts, holds or supports trunk or limbs, but provides less than half the effort. 2-Substantial/Maximal Assistance-helper does MORE THAN HALF the effort. [place] lifts or holds trunk or limbs and provides more than half the effort. 8-Kxhrtjbht-itzjlh does ALL the effort. Patient does none of the effort to complete the activity. Or, the assistance of 2 or more helpers is required for the patient to complete the activity. If activity was not attempted, code reason: 7-Patient Refused. 9-Not Applicable-not attempted and the patient did not perform the activity before the current illness, exacerbation or injury. 10-Not Attempted due to Environmental Limitations-(lack of equipment, weather restraints, etc.). 88-Not Attempted due to Medical Conditions or Safety Concerns. Roll Left to Right (QC): 3 Sit to Lying (QC): 3 Sit to Stand (QC): 5 Chair/Zsx-ob-Mmiss Xfer(QC): 5 Car Transfer (QC): 3 Gait Training Does the Patient Walk?: Yes Walk 10 feet (QC): 5 Walk 50 ft with 2 Turns(QC): 5 Walk 150 ft (QC): 4 Walking 10ft/uneven surface-QC: 4 Gait Persons Needed: 1 Gait Assistive Device: FWW Wheelchair Training Does the Pt Use a Wheelchair?: No Wheel 50 ft with 2 turns (QC): 9 Wheel 150 ft (QC): 9 Stair Training 1 Step (curb) (QC): 88 4 Steps (QC): 88 12 Steps (QC): 88 Balance Picking up an Object (QC): 88 ADL-Treatment Eating (QC): 6 Oral Hygiene (QC): 5 (set up, pt attempted to brush her teeth with toothbrush but reports increased pain. OT provided pt with foam swab and pt able to use it with less pain.) Shower/Bathe Self (QC): 3 (Sponge Bath: Pt seated EOB. She was able to wash all parts, required min A with LEs due to thoroughness. SBA during stand at [facility].) Upper Body Dressing (QC): 5 (s/u) Lower Body Dressing (QC): 3 (OT educated pt on using mail room to don brief. OT demo'd mail room, then pt able to thread legs into brief with min A. Pt required SBA during stand at [facility] as she managed briefs up.) On/Off Footwear (QC): 2 Toileting Hygiene (QC): 4 (SBA in stance per pt report and per clinical judgment ) Assessment/Plan Assessment and Plan Assess & Plan/Chief Complaint Assessment: Debility s/p critical illness and VDRF 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 Anasarca Hirsutism Poor albumin level Sore mouth added Nystatin and Magic mouthwash Fever Zosyn added by Dr Taveras empirically Ascites Severe anemia requiring 2 units of blood today Plan: Mouth treatment is improving status IRF protocol Lab monitored Holding anticoagulation Wound care to iliostomy site Paracentesis noted (1) S/P colectomy (2) Ileostomy in place (3) Hirsutism (4) Tachycardia (5) Anasarca (6) Anemia (7) Debility (8) Sigmoid volvulus (9) Leukocytosis (10) Acute kidney injury (11) Hyponatremia (12) Coronary artery disease (13) Abdominal pain Status: Acute (14) Elevated troponin (15) S/P cardiac cath SESAR BEEBE DO Mar 17, 2020 11:46
--- NOTE | 2020-03-17 12:05 | Progress Note - Surgery ---
Subjective Time Seen by a Provider: 11:42 Subjective/Events-last exam Pt seen and examined, only complaints are of weakness. Review of Systems General: Fatigue, Malaise Pulmonary: No Dyspnea, No Cough Cardiovascular: No: Chest Pain, Palpitations Gastrointestinal: No: Nausea Objective Exam Vital Signs Date Time Temp Pulse Resp B/P (MAP) Pulse Ox O2 Delivery O2 Flow Rate FiO2 03/17/20 11:45 36.4 104 24 104/98 96 Room Air 03/17/20 11:30 36.5 104 24 109/60 99 Room Air 03/17/20 10:10 122 118/80 (93) 99 Room Air 03/17/20 10:05 36.4 112 99 21 03/17/20 06:46 98 Room Air 03/17/20 05:09 36.4 106 20 120/78 (92) 97 Room Air 03/16/20 21:00 Room Air 03/16/20 18:45 94 Room Air 03/16/20 18:26 120 20 123/78 (93) 97 Room Air 03/16/20 16:26 109 119/77 (91) 97 Room Air 03/16/20 15:57 Room Air 03/16/20 15:45 36.7 109 124/81 (95) 03/16/20 15:15 111 16 130/84 (99) 91 Room Air 03/16/20 15:00 120 20 128/81 (97) I & O 03/17/20 07:00 Intake Total 1965 ml Output Total 5880 ml Balance -3915 ml Capillary Refill : Less Than 3 Seconds General Appearance: No Apparent Distress, Anxious, Chronically ill HEENT: PERRL/EOMI, Moist Mucous Membranes Respiratory: Chest Non Tender, Lungs Clear, No Accessory Muscle Use, No Respiratory Distress, Decreased Breath Sounds Cardiovascular: Regular Rate, Rhythm, No Murmur Gastrointestinal: soft, distended (mild), other (incision is improved compared to Monday, iliostomy with good output) Extremity: Pedal Edema (2+ legs) Neurologic/Psychiatric: Motor Weakness (generalized all extremties) Results Lab Laboratory Tests 03/16/20 13:47: Body Fluid Source PERITON, Body Fluid Color RED, Body Fluid Appearance MOD BLDY, Body Fluid WBC 800, Body Fluid RBC 811345, Body Fluid Polynuclear WBCs 50, Body Fluid Mononuclear WBCs 10, Body Fluid Lymphocytes 40, Body Fluid Other Cells , Body Fluid Glucose 94, Body Fluid Total Protein 2.8, Body Fluid Lactate Dehydrogenase 586, Body Fluid Amylase 47, Body Fluid Creatinine 0.51 03/17/20 06:15: White Blood Count 12.0H, Red Blood Count 2.58L, Hemoglobin 6.6*L, Hematocrit 21L , Mean Corpuscular Volume 82, Mean Corpuscular Hemoglobin 26, Mean Corpuscular Hemoglobin Concent 31L, Red Cell Distribution Width 24.4H, Platelet Count 498H, Mean Platelet Volume 8.4, Neutrophils (%) (Auto) 81H, Lymphocytes (%) (Auto) 8L, Monocytes (%) (Auto) 9, Eosinophils (%) (Auto) 2, Basophils (%) (Auto) 0, Neutrophils # (Auto) 9.7H, Lymphocytes # (Auto) 1.0, Monocytes # (Auto) 1.1H, Eosinophils # (Auto) 0.2, Basophils # (Auto) 0.0, Sodium Level 136, Potassium Level 3.7, Chloride Level 108H, Carbon Dioxide Level 19L, Anion Gap 9, Blood Urea Nitrogen 8, Creatinine 0.56L, Estimat Glomerular Filtration Rate > 60, BUN/Creatinine Ratio 14, Glucose Level 88, Calcium Level 7.1L, Phosphorus Level 3.3, Magnesium Level 1.6 Microbiology 03/16/20 Gram Stain - Final, Resulted 03/16/20 Anaerobic Culture, Resulted Pending 03/16/20 Surgical Culture - Preliminary, Resulted 03/14/20 Blood Culture - Preliminary, Resulted No growth Assessment/Plan Assessment/Plan Assessment/Plan Anemia - Hg dropped to 6.6 today Ascites -turned out to be serosanguinous; probably more sanguinous than serous Weakness - most likely secondary to above S/P Subtotal Colectomy Pt is being transfused 2 units; her hemoglobin has been in the low 7's so didn't change much, but she would benefit from Hg above 8. Blood in abdomen is old, will monitor her H/H. I don't think she has a small bowel obstruction, because she has a lot of output in ileostomy. Continue rehab. Clinical Quality Measures DVT/VTE Risk/Contraindication: Risk Factor Score Per Nursin RFS Level Per Nursing on Admit: 4+=Very High SHEILA DE OLIVEIRA DO Mar 17, 2020 12:05
--- NOTE | 2020-03-17 12:53 | Cardiology Progress Note ---
Cardiology SOAP Progress Note Subjective: No cardiac complaints. Objective: I&O/Vital Signs 03/17/20 03/17/20 03/17/20 03/17/20 05:09 06:46 10:05 10:10 Temp 36.4 36.4 Pulse 106 112 122 Resp 20 B/P (MAP) 120/78 (92) 118/80 (93) Pulse Ox 97 98 99 99 O2 Delivery Room Air Room Air Room Air FiO2 21 03/17/20 03/17/20 11:30 11:45 Temp 36.5 36.4 Pulse 104 104 Resp 24 24 B/P (MAP) 109/60 104/98 Pulse Ox 99 96 O2 Delivery Room Air Room Air 03/17/20 00:00 Intake Total 1425 ml Output Total 3280 ml Balance -1855 ml Constitutional: AAO x 3 Respiratory: chest is bilaterally symmetric, lungs clear to auscultation Cardiovascular: regular rate-rhythm, S1 and S2, systolic murmur Gastrointestional: other (recent abdominal surgery, abdominal exam was not done.) Extremities: pedal edema Neurologic/Psychiatric: no motor/sensory deficits, alert, normal mood/affect, oriented x 3 Skin: normal color Results/Procedures: Labs Laboratory Tests 03/16/20 13:47: Body Fluid Source PERITON, Body Fluid Color RED, Body Fluid Appearance MOD BLDY, Body Fluid WBC 800, Body Fluid RBC 086081, Body Fluid Polynuclear WBCs 50, Body Fluid Mononuclear WBCs 10, Body Fluid Lymphocytes 40, Body Fluid Other Cells , Body Fluid Glucose 94, Body Fluid Total Protein 2.8, Body Fluid Lactate Dehydrogenase 586, Body Fluid Amylase 47, Body Fluid Creatinine 0.51 03/17/20 06:15: White Blood Count 12.0H, Red Blood Count 2.58L, Hemoglobin 6.6*L, Hematocrit 21L , Mean Corpuscular Volume 82, Mean Corpuscular Hemoglobin 26, Mean Corpuscular Hemoglobin Concent 31L, Red Cell Distribution Width 24.4H, Platelet Count 498H, Mean Platelet Volume 8.4, Neutrophils (%) (Auto) 81H, Lymphocytes (%) (Auto) 8L, Monocytes (%) (Auto) 9, Eosinophils (%) (Auto) 2, Basophils (%) (Auto) 0, Neutrophils # (Auto) 9.7H, Lymphocytes # (Auto) 1.0, Monocytes # (Auto) 1.1H, Eosinophils # (Auto) 0.2, Basophils # (Auto) 0.0, Sodium Level 136, Potassium Level 3.7, Chloride Level 108H, Carbon Dioxide Level 19L, Anion Gap 9, Blood Urea Nitrogen 8, Creatinine 0.56L, Estimat Glomerular Filtration Rate > 60, BUN/Creatinine Ratio 14, Glucose Level 88, Calcium Level 7.1L, Phosphorus Level 3.3, Magnesium Level 1.6 Microbiology 03/16/20 Gram Stain - Final, Resulted 03/16/20 Anaerobic Culture, Resulted Pending 03/16/20 Surgical Culture - Preliminary, Resulted 03/14/20 Blood Culture - Preliminary, Resulted No growth A/P: Assessment/Dx: Currently in inpatient rehabilitation. Sinus tach and leucocytosis, consider systemic infection (managed by [facility] S[facility]). Okay to DC telemetry. S/p colectomy for intestinal obstruction Marked post-op anemia, managed by the Surgical and Hospitalist Services - received 2 units of 03-09-2020 Hypokalemia, corrected Abnormal ECG, but no evidence of ac IN CAD, h/o cor stenting at [facility] in Oct 2019. Last card cath on 03/05/20: patent stents in the mid left circumflex and the mid right coronary arteries. There is moderate diffuse disease of all coronary arteries. There is moderately severe diffuse disease of the distal left anterior descending. A small caliber obtuse marginal has 70% to 80% ostial stenosis. Normal left ventricular end- diastolic pressure. Echo of 03/05/20: LVEF 60-65%, mild to mod TR, RVSP 35-40 mmHg, mild dilatation of LA Post-op hypotension and EMIGDIO 2, resolved Plan: * Beta nadeem * Continue DAPT because of recent coronary stenting. On aspirin and Plavix. * Monitor labs * I recommend DVT prophylaxis if no surgical contraindication. Will defer to Dr. Ji. Thank you for your consultation. Please call me if you have any questions. Odessa Allen MD, FACP, FACC, FSCAI, FHRS, CCDS Interventional Cardiology Cardiac Electrophysiology Vascular Medicine and Endovascular Interventions Kusum ALLEN MD Mar 17, 2020 12:53
--- NOTE | 2020-03-17 13:36 | NUR ---
CM/SS CONCURRENT DOCUMENTATION Observed patient during PT session this a.m. Patient challenged by acute issues, continued medical complexity, very deconditioned. Leather Sponger exploring [employer] benefits on patient's behalf. [facility] [employer] has completed a benefit application for her but must have supportive documentation to submit with it. Work in partnership to get this during hospitalization if at all possible.
[2020-03-17] MEDS ORDERED: RT-ALBUTEROL SULF 2.5 MG/3 ML PRE-MIX VIAL INH PRN (14:00)
--- NOTE | 2020-03-17 14:03 | Occupational Ther Daily Note ---
OT Current Status-Daily Note Subjective Pt lying in bed. Pt receiving blood during OT session. Pt agrees to complete OT session in supine. Mental Status/Objective Patient Orientation: Person, Place, Time, Situation Attachments: Central Line, IV, Oxygen ADL-Treatment Pt discussed home environment. Pt stated that she has a walk-in shower though no shower seat. Pt also stated that she will be going home with a friend for approximately 2 weeks after rehab. Pt then was able to open containers and packages to set own meal up and use regular utensils to eat. Pt required assist x2 to scoot up in bed to position self to eat more efficiently. Increased time required to complete tasks due to low activity tolerance. After session, pt sitting up in bed with call light/phone in reach. All needs met in room. Therapy Code Descriptions/Definitions Functional [place] Measure: 0=Not Assessed/NA 4=Minimal Assistance 1=Total Assistance 5=Supervision or Setup 2=Maximal Assistance 6=Modified [place] 3=Moderate Assistance 7=Complete IndependenceSCALE: Activities may be completed with or without assistive devices. 7-Bnxdjeicoj-pbhwabu completes the activity by him/herself with no assistance from a helper. 5-Set-up or Clean-up Assistance-helper sets up or cleans up; patient completes activity. [place] assists only prior to or following the activity. 4-Supervision or Touching Assistance-helper provides verbal cues and/or touching/steadying and/or contact guard assistance as patient completes activity. Assistance may be provided throughout the activity or intermittently. 3-Partial/Moderate Assistance-helper does LESS THAN HALF the effort. [place] lifts, holds or supports trunk or limbs, but provides less than half the effort. 2-Substantial/Maximal Assistance-helper does MORE THAN HALF the effort. [place] lifts or holds trunk or limbs and provides more than half the effort. 0-Xebdehetb-awwqug does ALL the effort. Patient does none of the effort to complete the activity. Or, the assistance of 2 or more helpers is required for the patient to complete the activity. If activity was not attempted, code reason: 7-Patient Refused. 9-Not Applicable-not attempted and the patient did not perform the activity before the current illness, exacerbation or injury. 10-Not Attempted due to Environmental Limitations-(lack of equipment, weather restraints, etc.). 88-Not Attempted due to Medical Conditions or Safety Concerns. Eating (QC): 6 OT Short Term Goals Short Term Goals Upper body dressin Lower body dressin Putting on/taking off footwear: 5 OT Usp Goals [employer] Goals Time Frame: March 27, 2020 Eating (QC): 6 Oral Hygiene (QC): 6 Toileting Hygiene (QC): 6 Shower/Bathe Self (QC): 6 Upper Body Dressing (QC): 6 Lower Body Dressing (QC): 6 On/Off Footwear (QC): 6 Additional Goals: 1-Demonstrate ADL Tasks, 2-Verbalize Understanding, 3- ImproveStrength/Fern 1=Demonstrate adherence to instructed precautions during ADL tasks. 2=Patient will verbalize/demonstrate understanding of assistive devices/modifications for ADL. 3=Patient will improve strength/tolerance for activity to enable patient to perform ADL's. OT Education/Plan Problem List/Assessment Assessment: Decreased Activ Tolerance, Dependent Transfers, Impaired Self-Care Skills Discharge Recommendations Plan/Recommendations: Continue POC Treatment Plan/Plan of Care Patient would benefit from OT for education, treatment and training to promote independence in ADL's, mobility, safety and/or upper extremity function for ADL's. Plan of Care: ADL Retraining, Concurrent Therapy, Functional Mobility, Group Exercise/Act as Ind, UE Funct Exercise/Act Treatment Duration: March 27, 2020 Frequency: At least 5 of 7 days/Wk (IRF) Estimated Hrs Per Day: 1.5 hours per day Agreement: Yes Rehab Potential: Fair Time/GCodes Start Time: 13:30 Stop Time: 14:00 Total Time Billed (hr/min): 30 Billed Treatment Time 1 visit-FA 2 (30 min) LEYDA HOBSON Mar 17, 2020 14:02
--- NOTE | 2020-03-17 14:47 | NUR ---
"RD ASSESSMENT PMHx: hypercholesterolemia; HTN; VT PT INTERACTION: Pt was awake and pleasant during consult for poor appetite and sore mouth. Pt states she has been eating alright since last assessment. Note avg PO intake 53% x4d, per chart review. Pt states no issues with n/v/c/d since last assessment. Note pt has ileostomy and avg output is 1757ml, per chart review. Note pt currently on bowel regimen of Colace BID; Senna BID; and Miralax BID, per chart review. Pt states having some difficulty chewing/swallowing d/t her sore mouth. ABNORMAL NUTRITION-RELATED LAB VALUES LOW: Pro 5.2; alb 2.1; cr 0.56; Ca 7.1 HIGH: Cl 108 Est. kcal needs: 4577-0727 kcal | 20-25 kcal/kg Est. Pro needs: 83-99 g Pro | 1.0-1.2 g Pro/kg PES STATEMENT: Inadequate oral intake (NI-2.1) related to loss of appetite | sore mouth as evidenced by pt interview | avg PO intake 53% x4d INTERVENTION: Continue with current diet order of Regular diet. Add Ensure Enlive to meals TID, for increased kcal intake. Provides 350 kcal and 13 g Pro per serving. Encouraged pt to eat when able. Will continue to follow and reassess as pt needs, intake, and status change. MONITOR/EVALUATE: PO Intake; Plan of Care; Hydration Status; Weight Status; Lab Values Camron Rogers, MS, RD, LD"
[2020-03-18] MEDS: NYSTATIN ORAL SUSP 5 ML UDC PO SCH ×4 (00:45→18:20)
[2020-03-18] MEDS: VANCOMYCIN 1 GM/NS 250 ML IVPB IV SCH ×2 (04:09)
[2020-03-18 05:09] VITALS: BP 134/81
[2020-03-18] MEDS: CATHETER FLUSH 10 ML SYR IV SCH ×3 (05:28→22:12)
[2020-03-18] MEDS: PIPERACILLIN/TAZO 4.5 GM/NS 100 ML IV SCH ×6 (05:28→22:12)
[2020-03-18 07:33] LABS: BASOPHILS % (AUTO) 0 % (0-10); EOSINOPHILS # (AUTO) 0.2 10^3/uL (0.0-0.3); EOSINOPHILS % (AUTO) 2 % (0-10); HEMATOCRIT 29 % (35-52); LYMPHOCYTES # (AUTO) 1.1 X 10^3 (1.0-4.0); LYMPHOCYTES % (AUTO) 9 % (12-44); MEAN CORPUSCULAR HEMOGLOBIN 27 PG (25-34); MEAN CORPUSCULAR HGB CONC 33 G/DL (32-36); MEAN CORPUSCULAR VOLUME 83 FL (80-99); MEAN PLATELET VOLUME 8.5 FL (7.4-10.4); MONOCYTES # (AUTO) 1.1 X 10^3 (0.0-1.0); MONOCYTES % (AUTO) 9 % (0-12); NEUTROPHILS # (AUTO) 10.4 X 10^3 (1.8-7.8); NEUTROPHILS % (AUTO) 81 % (42-75); PLATELET COUNT 506 10^3/uL (130-400); WHITE BLOOD COUNT 12.9 10^3/uL (4.3-11.0)
[2020-03-18 07:34] LABS: HEMOGLOBIN 9.6 G/DL (11.5-16.0)
[2020-03-18 07:42] LABS: CHLORIDE 109 MMOL/L (98-107); POTASSIUM 3.8 MMOL/L (3.6-5.0); SODIUM 134 MMOL/L (135-145)
[2020-03-18 07:43] LABS: CALCIUM 7.3 MG/DL (8.5-10.1)
[2020-03-18 07:44] LABS: GLUCOSE 110 MG/DL (70-105)
[2020-03-18 07:45] LABS: CARBON DIOXIDE 16 MMOL/L (21-32)
[2020-03-18 07:48] LABS: GFR ESTIMATED > 60
[2020-03-18 07:49] LABS: BUN/CREATININE RATIO 13
[2020-03-18 07:50] LABS: MAGNESIUM 1.7 MG/DL (1.6-2.4)
[2020-03-18] MEDS: PANTOPRAZOLE 40 MG (PROTONIX) TAB PO SCH (09:10)
[2020-03-18] MEDS: DOCUSATE SODIUM 100 MG (COLACE) CAP PO SCH ×2 (09:10→22:13)
[2020-03-18] MEDS: IRON SUCROSE 200 MG/10 ML (VENOFER) VIAL IV SCH (09:10)
[2020-03-18] MEDS: meTOprolol TARTRATE 50 MG (LOPRESSOR) TAB PO SCH ×2 (09:10→22:09)
[2020-03-18] MEDS: MAGIC MOUTHWASH (ADULT) PO SCH ×4 (09:12)
[2020-03-18] MEDS: polyethylene glycoL POWDER 17 GM (MIRALAX) PACK PO SCH ×2 (09:12→22:13)
[2020-03-18] MEDS: SENNA W/DOCUSATE (SENOKOT S) TABLET PO SCH ×2 (09:12→22:13)
[2020-03-18] MEDS: MICONAZOLE 2% POWDER (DESENEX AF) 90 GM TOP SCH ×2 (09:13→22:11)
[2020-03-18] MEDS: NYSTATIN CREAM (MYCOSTATIN) 30 GM TUBE TP SCH ×2 (09:13→22:12)
--- NOTE | 2020-03-18 09:45 | Occupational Ther Daily Note ---
OT Current Status-Daily Note Subjective Pt seated in recliner, nursing present. Agreeable to OT tx with focus on ADLs. She denied showering on this date stating she would rather do it tomorrow. Pain Numeric Pain Scale: 3 Comment: pt reports 3/10 pain in her mouth Mental Status/Objective Patient Orientation: Normal For Age Attachments: Colostomy/Ileostomy, IV ADL-Treatment Therapy Code Descriptions/Definitions Functional [place] Measure: 0=Not Assessed/NA 4=Minimal Assistance 1=Total Assistance 5=Supervision or Setup 2=Maximal Assistance 6=Modified [place] 3=Moderate Assistance 7=Complete IndependenceSCALE: Activities may be completed with or without assistive devices. 6-Ttmkquyrmq-fdpspro completes the activity by him/herself with no assistance from a helper. 5-Set-up or Clean-up Assistance-helper sets up or cleans up; patient completes activity. [place] assists only prior to or following the activity. 4-Supervision or Touching Assistance-helper provides verbal cues and/or holly bianka/steadying and/or contact guard assistance as patient completes activity. Assistance may be provided throughout the activity or intermittently. 3-Partial/Moderate Assistance-helper does LESS THAN HALF the effort. [place] lifts, holds or supports trunk or limbs, but provides less than half the effort. 2-Substantial/Maximal Assistance-helper does MORE THAN HALF the effort. [place] lifts or holds trunk or limbs and provides more than half the effort. 3-Mmwuelxzx-dkcswe does ALL the effort. Patient does none of the effort to complete the activity. Or, the assistance of 2 or more helpers is required for the patient to complete the activity. If activity was not attempted, code reason: 7-Patient Refused. 9-Not Applicable-not attempted and the patient did not perform the activity before the current illness, exacerbation or injury. 10-Not Attempted due to Environmental Limitations-(lack of equipment, weather restraints, etc.). 88-Not Attempted due to Medical Conditions or Safety Concerns. Oral Hygiene (QC): 6 (Pt completed task seated at sink) Shower/Bathe Self (QC): 7 (pt declined task on this date) Other Treatment Pt seated in recliner, agreed to OT tx. She denied showering but requested for her hair to be washed. OT set up task of washing hair with a shower cap. Pt able to scrub hair in order to wash her hair, then dried it with a towel. Pt brushed her hair independently. She then transferred to the bathroom with SBA and FWW as OT managed IV line, she sat at sink for oral hygiene and shaving with increased time with tasks. Pt's IV finished, and nursing removed IV. Pt then transferred from bathroom to recliner using FWW with SBA. OT dependently donned TEDhose and socks for pt, pt not given opportunity to don socks due to time constraint, thus no QC score given. Pt declined putting on regular clothes due to ostomy needing emptied frequently, pt able to don hospital gown over he back like a robe to cover her backside. Pt already had hospital gown on the front. Post OT session, pt sitting upright in recliner, call light in reach and all needs met. Nursing present. Education OT Patient Education: Correct positioning, Energy conservation, Modified ADL techniques, Progress toward Goal/Update tx plan, Purpose of tx/functional activities, Transfer techniques Teaching Recipient: Patient Teaching Methods: Discussion Response to Teaching: Verbalize Understanding OT Short Term Goals Short Term Goals Upper body dressin Lower body dressin Putting on/taking off footwear: 5 OT Vocational Rehabilitation Counselor Goals [place] Goals Time Frame: March 27, 2020 Eating (QC): 6 Oral Hygiene (QC): 6 Toileting Hygiene (QC): 6 Shower/Bathe Self (QC): 6 Upper Body Dressing (QC): 6 Lower Body Dressing (QC): 6 On/Off Footwear (QC): 6 Additional Goals: 1-Demonstrate ADL Tasks, 2-Verbalize Understanding, 3- ImproveStrength/Fern 1=Demonstrate adherence to instructed precautions during ADL tasks. 2=Patient will verbalize/demonstrate understanding of assistive devic es/modifications for ADL. 3=Patient will improve strength/tolerance for activity to enable patient to perform ADL's. OT Education/Plan Problem List/Assessment Assessment: Decreased Activ Tolerance, Decreased UE Strength, Impaired I ADL's, Impaired Self-Care Skills Discharge Recommendations Plan/Recommendations: Continue POC Treatment Plan/Plan of Care Patient would benefit from OT for education, treatment and training to promote independence in ADL's, mobility, safety and/or upper extremity function for ADL's. Plan of Care: ADL Retraining, Concurrent Therapy, Functional Mobility, Group Exercise/Act as Ind, UE Funct Exercise/Act Treatment Duration: March 27, 2020 Frequency: At least 5 of 7 days/Wk (IRF) Estimated Hrs Per Day: 1.5 hours per day Agreement: Yes Rehab Potential: Fair Time/GCodes Start Time: 08:15 Stop Time: 09:30 Total Time Billed (hr/min): 75 Billed Treatment Time 1, ADL 5 SHAVON BARTLETT OT Mar 18, 2020 09:45
--- NOTE | 2020-03-18 11:00 | NUR ---
Pastoral care visit
--- NOTE | 2020-03-18 11:00 | NUR ---
BEHAVIORAL HEALTH CALLED FOR FACETIME CONFERENCE.
--- NOTE | 2020-03-18 11:10 | Physical Therapy Daily Note ---
PT Daily Note-Current Subjective Pt. agrees to Rx. States her bottom hurts when sitting in semi reclined position. After experimenting with supine and slightly on side in recliner pt states she feels better .Requested many sips of water during rx as well as stating again that she would really like to have a brownie and ice cream "thats the only thing that really sounds good" Pain Numeric Pain Scale: 4 Location: Medial Location Body Site: Sacrum Pain Description: Pressure Mental Status Patient Orientation: Person, Place, Time, Situation pt. in off and on emotional and cries a bit during Rx but responds to encouragement for Rx Transfers SCALE: Activities may be completed with or without assistive devices. 5-Zwotthubmc-etkkhfe completes the activity by him/herself with no assistance from a helper. 5-Set-up or Clean-up Assistance-helper sets up or cleans up; patient completes activity. [place] assists only prior to or following the activity. 4-Supervision or Touching Assistance-helper provides verbal cues and/or touching/steadying and/or contact guard assistance as patient completes activity. Assistance may be provided throughout the activity or intermittently. 3-Partial/Moderate Assistance-helper does LESS THAN HALF the effort. [place] lifts, holds or supports trunk or limbs, but provides less than half the effort. 2-Substantial/Maximal Assistance-helper does MORE THAN HALF the effort. [place] lifts or holds trunk or limbs and provides more than half the effort. 4-Uoxwnnzvi-oofkjm does ALL the effort. Patient does none of the effort to complete the activity. Or, the assistance of 2 or more helpers is required for the patient to complete the activity. If activity was not attempted, code reason: 7-Patient Refused. 9-Not Applicable-not attempted and the patient did not perform the activity before the current illness, exacerbation or injury. 10-Not Attempted due to Environmental Limitations-(lack of equipment, weather restraints, etc.). 88-Not Attempted due to Medical Conditions or Safety Concerns. Roll Left & Right (QC): 5 Sit to Lying (QC): 6 Lying to Sitting/Side of Bed(Q: 6 Sit to Stand (QC): 6 Chair/Pdz-lx-Qsqxd Xfer(QC): 6 Gait Training Does the Patient Walk?: Yes Walk 10 feet (QC): 5 Walk 50 ft with 2 Turns(QC): 5 Walk 150 ft (QC): 5 Gait Persons Needed: 1 Gait Assistive Device: FWW requests some breaks for rest . Even step length, fair alignment, good use of FWW Stair Training Stair Training: Handrails/: uses walker #of Steps: 2 Stairs: Pattern: Step to pink "starter step" min assist 2 step ups 2 step downs Exercises Supine Ex: Bridging, Ankle pumps, Quad Set, Rolling, Glut sets, Heel Slides, Scooting (up in recliner), Straight leg raise, Hip abd/add Supine Reps: 15 Seated Therapy Exercises: Ankle pumps, Sit to stand, Long arc quads, Hip flexion Seated Reps: 12 NuStep Minutes: 12 NuStep Workload: 5 Treatments slow, moving with breaks but improving over all with increased indep for TRFs and longer bouts of gait as well as initiating steps with good outcome Assessment Current Status: Good Progress PT Short Term Goals Short Term Goals Time Frame: Mar 20, 2020 Roll Left & Right: 3 Sit to lyin Lying to sitting on side of be: 3 Sit to stand: 4 Chair/nbv-sz-gzmdg transfer: 4 Walk 10 feet: 4 Walk 50 feet with two turns: 4 Walk 150 feet: 4 PT Skilled Nursing Goals Hazmat Cdl A Driver Goals PT Skilled Nursing Goals Time Frame: April 03, 2020 Roll Left & Right (QC): 6 Sit to Lying (QC): 6 Lying-Sitting on Side/Bed(QC): 6 Sit to Stand (QC): 6 Chair/Dhc-qo-Wrhea Xfer(QC): 6 Toilet Transfer (QC): 6 Car Transfer (QC): 6 Does the Patient Walk: Yes Walk 10 feet (QC): 6 Walk 50ft with 2 Turns (QC): 6 Walk 150 ft (QC): 6 Walking 10ft on Uneven Surface: 6 1 Step (curb) (QC): 4 4 Steps (QC): 4 12 Steps (QC): 88 Picking up an Object (QC): 88 Wheel 50 feet with 2 turns (QC: 88 Wheel 150 feet: 88 PT Plan Treatment/Plan Treatment Plan: Continue Plan of Care Treatment Plan: Bed Mobility, Education, Functional Activity [place], Functional Strength, Group Therapy, Gait, Safety, Therapeutic Exercise, Transfers Treatment Duration: April 03, 2020 Frequency: At least 5 of 7 days/Wk (IRF) Estimated Hrs Per Day: 1.5 hours per day Patient and/or Family Agrees t: Yes Safety Risks/Education Patient Education: Gait Training, Transfer Techniques, Steps, Correct Positioning, Disease Process Teaching Recipient: Patient, Primary Caregiver Teaching Methods: Discussion Response to Teaching: Verbalize Understanding, Return Demonstration, Reinforcement Needed Time/GCodes Time In: 930 Time Out: 1100 Total Billed Treatment Time: 90 Total Billed Treatment 1,EX35m,FA30m,GT25m AN CHUN DEPUTY HEAD Mar 18, 2020 11:10
--- NOTE | 2020-03-18 11:27 | PM&R Progress Note ---
Subjective HPI/CC On Admission Date Seen by Provider: Mar 18, 2020 Time Seen by Provider: 12:00 Subjective/Events-last exam Patient doing better each day and especially since blood given yesterday 2 units Psych evaluation completed today Fever and w/u ordered by Dr Taveras prompted starting IV abx for facility acquire infection Abx D#4 Pain managed Poor nutrition with albumin 2.0 is causing the third spacing also Pain is tolerated Iliostomy working well for the patient Checked meds and labs Conferred with RN Reviewed therapy notes Review of Systems General: Fatigue Pulmonary: Dyspnea Objective Exam Vital Signs Vital Signs Date Time Temp Pulse Resp B/P (MAP) Pulse Ox O2 Delivery O2 Flow Rate FiO2 03/18/20 17:26 37.0 112 20 121/82 (95) 98 Room Air 03/17/20 10:05 21 Capillary Refill : Less Than 3 Seconds General Appearance: No Apparent Distress, Anxious, Chronically ill HEENT: PERRL/EOMI, Moist Mucous Membranes Respiratory: Chest Non Tender, Lungs Clear, No Accessory Muscle Use, No Respiratory Distress, Decreased Breath Sounds Cardiovascular: Regular Rate, Rhythm, No Murmur Gastrointestinal: Normal Bowel Sounds, No Organomegaly, No Pulsatile Mass, Soft, Tenderness Back: Normal Inspection, No CVA Tenderness, No Vertebral Tenderness Extremity: Pedal Edema (2+ legs) Neurologic/Psychiatric: Motor Weakness (generalized all extremties) Results/Procedures Lab Laboratory Tests 03/18/20 07:25 Patient resulted labs reviewed. FIM Transfers Therapy Code Descriptions/Definitions Functional [place] Measure: 0=Not Assessed/NA 4=Minimal Assistance 1=Total Assistance 5=Supervision or Setup 2=Maximal Assistance 6=Modified [place] 3=Moderate Assistance 7=Complete IndependenceSCALE: Activities may be completed with or without assistive devices. 2-Dwrjzciuqd-jfjvyoj completes the activity by him/herself with no assistance from a helper. 5-Set-up or Clean-up Assistance-helper sets up or cleans up; patient completes activity. [place] assists only prior to or following the activity. 4-Supervision or Touching Assistance-helper provides verbal cues and/or touching/steadying and/or contact guard assistance as patient completes activity. Assistance may be provided throughout the activity or intermittently. 3-Partial/Moderate Assistance-helper does LESS THAN HALF the effort. [place] lifts, holds or supports trunk or limbs, but provides less than half the effort. 2-Substantial/Maximal Assistance-helper does MORE THAN HALF the effort. [place] lifts or holds trunk or limbs and provides more than half the effort. 6-Ljmmcxyds-mzwhas does ALL the effort. Patient does none of the effort to complete the activity. Or, the assistance of 2 or more helpers is required for the patient to complete the activity. If activity was not attempted, code reason: 7-Patient Refused. 9-Not Applicable-not attempted and the patient did not perform the activity before the current illness, exacerbation or injury. 10-Not Attempted due to Environmental Limitations-(lack of equipment, weather restraints, etc.). 88-Not Attempted due to Medical Conditions or Safety Concerns. Roll Left to Right (QC): 5 Sit to Lying (QC): 6 Sit to Stand (QC): 6 Chair/Wbz-os-Lfzqi Xfer(QC): 6 Car Transfer (QC): 3 Gait Training Does the Patient Walk?: Yes Walk 10 feet (QC): 5 Walk 50 ft with 2 Turns(QC): 5 Walk 150 ft (QC): 4 Walking 10ft/uneven surface-QC: 4 Gait Persons Needed: 1 Gait Assistive Device: FWW Wheelchair Training Does the Pt Use a Wheelchair?: No Wheel 50 ft with 2 turns (QC): 9 Wheel 150 ft (QC): 9 Stair Training 1 Step (curb) (QC): 88 4 Steps (QC): 88 12 Steps (QC): 88 Balance Picking up an Object (QC): 88 ADL-Treatment Eating (QC): 6 Oral Hygiene (QC): 6 (Pt completed task seated at sink) Shower/Bathe Self (QC): 7 (pt declined task on this date) Upper Body Dressing (QC): 5 (s/u) Lower Body Dressing (QC): 3 (OT educated pt on using electrical technology instructor to don brief. OT demo'd electrical technology instructor, then pt able to thread legs into brief with min A. Pt required SBA during stand at [facility] as she managed briefs up.) On/Off Footwear (QC): 2 Toileting Hygiene (QC): 4 (SBA in stance per pt report and per clinical carola gment ) Assessment/Plan Assessment and Plan Assess & Plan/Chief Complaint Assessment: Debility s/p critical illness and VDRF 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 Anasarca Hirsutism Poor albumin level Sore mouth added Nystatin and Magic mouthwash Fever Zosyn added by Dr Taveras empirically Ascites s/p paracentesis anemia s/p transfusions 2 units 03/17/20 Plan: Mouth treatment is improving status IRF protocol Lab monitored Check labs periodically Wound care to iliostomy site Paracentesis completed (1) S/P colectomy (2) Ileostomy in place (3) Hirsutism (4) Tachycardia (5) Anasarca (6) Anemia (7) Debility (8) Sigmoid volvulus (9) Leukocytosis (10) Acute kidney injury (11) Hyponatremia (12) Coronary artery disease (13) Abdominal pain Status: Acute (14) Elevated troponin (15) S/P cardiac cath SESAR BEEBE DO Mar 18, 2020 11:27
--- NOTE | 2020-03-18 12:23 | Behavioral Health Consult ---
Consult- Consult Date Seen by Provider: Mar 18, 2020 Time Seen by Provider: 11:00 Date: 03-18-20 Referral: Dr. Hackett [facility]#: [id number] CPT Code: 76138 Psychodiagnostic Examination 61912 Interactive Complexity, 1 unit(s) Start Time: 11:00 am Stop Time: 12:30 pm Chief Complaint: depression Referral: Naomi Ray is a 54-year-old, , female referred by Dr. Hackett for a clinical diagnostic assessment. Information for this evaluation was gathered from self-report and clinical observation. Presenting Problem: [facility] nurse, Joana, reported Naomi has been tearful and appeared depressed and they are wanting to know if she needs to be prescribed an antidepressant. Joana reported Naomi has had a lot of very recent changes in her body since being hospitalized and she felt Naomi was having a difficult time coping with the changes. Naomi reported she has been in the hospital for about two and a half weeks. She reported she suddenly got sick and had to go to the hospital where she had a bowel obstruction surgery. She reported she was very surprised with her sudden health issues and denied there being anything occurring before that would lead to those issues. Naomi reported she found out that where she works in [place] was temporarily closing and then she found out they would be permanently closing and trying to sell the company. Naomi reported she knew that would be a possibility, as they had tried to sell in the past, but finding out it would be permanently closed while in the hospital was difficult for her. She reported she has felt bummed but denied feeling depressed or suicidal. She reported she feels she was initially very grouchy but has been trying to be less so the past few days after realizing her behavior. She reported her sleep has been fair and she has probably lost some weight due to not being able to wear her dentures due to her mouth being too dry. She denied crying more than normal but stated she has had a crazy couple of days due to having to have a CT scan, staff thinking she was starting to have heart problems, and then having to have fluid pulled from her. She denied any guilt, problems concentrating, or worthlessness. She reported she initially had some problems with too little energy but stated she feels it has been a bit better the past few days. Naomi reported she has been worrying more than normal but stated she feels it is what would be expected for anyone in her position but does not find it overwhelming. She reported she was initially worried about the amount of physical therapy she would need to complete, but stated this week she has been more positive and has been trying to participate more than she had been. She denied any previous mental health history or diagnosis for herself or for any of her family members. Observations/Mental Status: Naomi arrived on time for the appointment and was alone. Overall appearance was appropriate and indicated adequate self-care. Naomi appeared to be a fair historian. Observed gait and gross motor movements indicated no clinically significant difficulties. [place] general approach to the evaluation indicated interest. Orientation was intact for person, place, time, and situation. Naomi evidenced fair understanding of the reason for the appointment. [place] in-session behavior was cooperative. The predominant mood was depressed with affect appropriate to expressed concerns and presenting problem. Immediate attention and concentration was unremarkable clinically during the interview. Memory functioning appeared to be intact. Level of intellectual functioning compared to same age peers was estimated to be in the average range. Thought processes were found to be generally logical, coherent and goal directed. Thought content appeared normal. Psychomotor functioning was within normal limits. Tone of voice was normal and controlled. Expressive speech was marked by fluent speech and language. Eye contact was fair. Insight was fair. Overall, style of interacting during the appointment was appropriate and motivated. Educational and Vocational Histories: History of learning problems: not assessed. School-based remedial education services: were denied. In-school behavior problems: not assessed. 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 Family and Social Histories: Naomi reported she lives alone but once she will be moving in with a friend of hers who owns her own businessman will also act as her POA. She denied having any children. Social contacts were reported as good. She reported she has many close friends between her orthodox family and other very close friends. She reported she has had many people check in with her to see how she is doing. Summary of Assessment Information/Prognosis: Naomi is a 54-year-old female. Following current assessment, presenting problem and symptoms appear consistent with a preliminary diagnosis of F43.21 Adjustment disorder with depressed mood. Overall, prognosis is estimated to be good. Her diagnosis was discussed with her and she was encouraged to talk with her doctor if her symptoms worsened or if she began to feel more depressed. She stated she agreed with the diagnosis and denied having any questions or concerns. She was told that at this point due to her diagnosis, therapist would not recommend the addition of an antidepressant and Naomi stated she agreed and did not feel she needed any psychotropic medications at this time. Strengths/Weaknesses: Strengths/Resources: accepts feedback and positive social support Liabilities/Barriers: health problems Diagnostic Impressions: F43.21 Adjustment disorder with depressed mood Initial Treatment Plan/Recommendations: The recommendations currently include the following: remain in hospital and participate in physical therapy; continue to monitor to symptoms of depression to be sure they do not worsen, if symptoms continue assist in scheduling outpatient therapy appointment to process recent physical changes. Naomi is recommended to return as needed should additional problems develop. Further disposition will be made at that time. Naomi verbalized understanding of these recommendations and an intention to comply with the proposed treatment plan and course of treatment. THERESA SOTO [facility] Mar 18, 2020 12:23
--- NOTE | 2020-03-18 13:00 | NUR ---
DR DE OLIVEIRA HERE TO ASSESS ABDOMINAL INCISION. HE FEELS THAT INCISION IS IMPROVING AND MAKE SURE DRESSING STAYS D/I.
--- NOTE | 2020-03-18 13:14 | Cardiology Progress Note ---
Cardiology SOAP Progress Note Subjective: No cardiac complaints. Objective: I&O/Vital Signs 03/18/20 05:09 Temp 36.0 Pulse 97 Resp 20 B/P (MAP) 134/81 (98) Pulse Ox 98 O2 Delivery Room Air 03/18/20 00:00 Intake Total 1380 ml Output Total 1150 ml Balance 230 ml Constitutional: AAO x 3 Respiratory: chest is bilaterally symmetric, lungs clear to auscultation Cardiovascular: regular rate-rhythm, S1 and S2, systolic murmur Gastrointestional: other (recent abdominal surgery, abdominal exam was not done.) Extremities: pedal edema Neurologic/Psychiatric: no motor/sensory deficits, alert, normal mood/affect, oriented x 3 Skin: normal color Results/Procedures: Labs Laboratory Tests 03/18/20 07:25: White Blood Count 12.9H, Red Blood Count 3.55L, Hemoglobin 9.6#L, Hematocrit 29L , Mean Corpuscular Volume 83, Mean Corpuscular Hemoglobin 27, Mean Corpuscular Hemoglobin Concent 33, Red Cell Distribution Width 22.0H, Platelet Count 506H, Mean Platelet Volume 8.5, Neutrophils (%) (Auto) 81H, Lymphocytes (%) (Auto) 9L, Monocytes (%) (Auto) 9, Eosinophils (%) (Auto) 2, Basophils (%) (Auto) 0, Neut rophils # (Auto) 10.4H, Lymphocytes # (Auto) 1.1, Monocytes # (Auto) 1.1H, Eosinophils # (Auto) 0.2, Basophils # (Auto) 0.0, Sodium Level 134L, Potassium Level 3.8, Chloride Level 109H, Carbon Dioxide Level 16L, Anion Gap 9, Blood Urea Nitrogen 8, Creatinine 0.60, Estimat Glomerular Filtration Rate > 60, BUN/Creatinine Ratio 13, Glucose Level 110H, Calcium Level 7.3L, Phosphorus Level 3.0, Magnesium Level 1.7 Microbiology 03/16/20 Gram Stain - Final, Resulted 03/16/20 Anaerobic Culture - Preliminary, Resulted No anaerobes isolated 03/16/20 Surgical Culture - Preliminary, Resulted No growth 03/14/20 Blood Culture - Preliminary, Resulted No growth A/P: Assessment/Dx: Currently in inpatient rehabilitation. Sinus tach and leucocytosis, consider systemic infection (managed by Med and Surg Svces). Okay to DC telemetry. S/p colectomy for intestinal obstruction Marked post-op anemia, managed by the Surgical and Hospitalist Services - received 2 units of 4 Hypokalemia, corrected Abnormal ECG, but no evidence of ac IA CAD, h/o cor stenting at [facility] in Oct 2019. Last card cath on 03/05/20: patent stents in the mid left circumflex and the mid right coronary arteries. There is moderate diffuse disease of all coronary arteries. There is moderately severe diffuse disease of the distal left anterior descending. A small caliber obtuse marginal has 70% to 80% ostial stenosis. Normal left ventricular end- diastolic pressure. Echo of 03/05/20: LVEF 60-65%, mild to mod TR, RVSP 35-40 mmHg, mild dilatation of LA Post-op hypotension and EMIGDIO 2, resolved Plan: * Beta nadeem * Continue DAPT because of recent coronary stenting. On aspirin and Plavix. * Monitor labs * I recommend DVT prophylaxis if no surgical contraindication. Will defer to Dr. Ji. Thank you for your consultation. Please call me if you have any questions. Odessa Allen MD, FACP, FACC, FSCAI, FHRS, CCDS Interventional Cardiology Cardiac Electrophysiology Vascular Medicine and Endovascular Interventions Kusum ALLEN MD Mar 18, 2020 13:14
--- NOTE | 2020-03-18 13:22 | Progress Note - Surgery ---
Subjective Time Seen by a Provider: 13:04 Subjective/Events-last exam Pt seen and examined, no new complaints today. Review of Systems General: Fatigue Pulmonary: No Dyspnea, No Cough Cardiovascular: No: Chest Pain, Palpitations Gastrointestinal: No: Nausea, Vomiting, Abdominal Pain Objective Exam Vital Signs Date Time Temp Pulse Resp B/P (MAP) Pulse Ox O2 Delivery O2 Flow Rate FiO2 03/18/20 05:09 36.0 97 20 134/81 (98) 98 Room Air 03/17/20 21:00 Room Air 03/17/20 18:29 Room Air 03/17/20 18:08 36.2 20 96 03/17/20 18:06 105 120/73 03/17/20 17:08 35.9 107 20 112/74 (87) 100 Room Air 03/17/20 14:50 36.6 105 20 121/77 97 Room Air 03/17/20 14:30 36.6 104 20 129/72 96 Room Air 03/17/20 14:02 36.6 104 20 129/72 96 I & O 03/18/20 07:00 Intake Total 2055 ml Output Total 3600 ml Balance -1545 ml Capillary Refill : Less Than 3 Seconds General Appearance: No Apparent Distress, Anxious, Chronically ill HEENT: PERRL/EOMI, Moist Mucous Membranes Respiratory: Chest Non Tender, Lungs Clear, No Accessory Muscle Use, No Respiratory Distress, Decreased Breath Sounds Cardiovascular: Regular Rate, Rhythm, No Murmur Gastrointestinal: soft, distended (mild), other (incision does not appear infected, skin slightly pulled apart in some places. Ileostomy large amount of output) Extremity: Pedal Edema (2+ legs) Neurologic/Psychiatric: Motor Weakness (generalized all extremties) Results Lab Laboratory Tests 03/18/20 07:25: White Blood Count 12.9H, Red Blood Count 3.55L, Hemoglobin 9.6#L, Hematocrit 29L , Mean Corpuscular Volume 83, Mean Corpuscular Hemoglobin 27, Mean Corpuscular Hemoglobin Concent 33, Red Cell Distribution Width 22.0H, Platelet Count 506H, Mean Platelet Volume 8.5, Neutrophils (%) (Auto) 81H, Lymphocytes (%) (Auto) 9L, Monocytes (%) (Auto) 9, Eosinophils (%) (Auto) 2, Basophils (%) (Auto) 0, Neutrophils # (Auto) 10.4H, Lymphocytes # (Auto) 1.1, Monocytes # (Auto) 1.1H, Eosinophils # (Auto) 0.2, Basophils # (Auto) 0.0, Sodium Level 134L, Potassium Level 3.8, Chloride Level 109H, Carbon Dioxide Level 16L, Anion Gap 9, Blood Urea Nitrogen 8, Creatinine 0.60, Estimat Glomerular Filtration Rate > 60, BUN/Creatinine Ratio 13, Glucose Level 110H, Calcium Level 7.3L, Phosphorus Level 3.0, Magnesium Level 1.7 Microbiology 03/16/20 Gram Stain - Final, Resulted 03/16/20 Anaerobic Culture - Preliminary, Resulted No anaerobes isolated 03/16/20 Surgical Culture - Preliminary, Resulted No growth 03/14/20 Blood Culture - Preliminary, Resulted No growth Assessment/Plan Assessment/Plan Assessment/Plan Anemia - Hg up to 9.6 today after transfusion Ascites -turned out to be serosanguinous; probably more sanguinous than serous Weakness - most likely secondary to above S/P Subtotal Colectomy Pt' hemoglobin is better and will monitor her H/H. Midline incision has drainage, but mostly serous and does not look purulent....this was seen on CT. Will continue to watch this area and try to keep it clean and dry. Diet as tolerated with increased protein and fluids because of large output in ileostomy. Continue rehab. Clinical Quality Measures DVT/VTE Risk/Contraindication: Risk Factor Score Per Nursin RFS Level Per Nursing on Admit: 4+=Very High SHEILA DE OLIVEIRA DO Mar 18, 2020 13:22
--- NOTE | 2020-03-18 13:36 | Occupational Ther Daily Note ---
OT Current Status-Daily Note Subjective Pt sitting upright in recliner at start of session, agreeable to OT tx. Pt reported she enjoyed lunch today. Mental Status/Objective Patient Orientation: Normal For Age Attachments: Colostomy/Ileostomy ADL-Treatment Therapy Code Descriptions/Definitions Functional [place] Measure: 0=Not Assessed/NA 4=Minimal Assistance 1=Total Assistance 5=Supervision or Setup 2=Maximal Assistance 6=Modified [place] 3=Moderate Assistance 7=Complete IndependenceSCALE: Activities may be completed with or without assistive devices. 8-Mpylkenjei-uabeems completes the activity by him/herself with no assistance from a helper. 5-Set-up or Clean-up Assistance-helper sets up or cleans up; patient completes activity. [place] assists only prior to or following the activity. 4-Supervision or Touching Assistance-helper provides verbal cues and/or touching/steadying and/or contact guard assistance as patient completes activity. Assistance may be provided throughout the activity or intermittently. 3-Partial/Moderate Assistance-helper does LESS THAN HALF the effort. [place] lifts, holds or supports trunk or limbs, but provides less than half the effort. 2-Substantial/Maximal Assistance-helper does MORE THAN HALF the effort. [place] lifts or holds trunk or limbs and provides more than half the effort. 6-Bfmyluxzn-dvzjxo does ALL the effort. Patient does none of the effort to complete the activity. Or, the assistance of 2 or more helpers is required for the patient to complete the activity. If activity was not attempted, code reason: 7-Patient Refused. 9-Not Applicable-not attempted and the patient did not perform the activity before the current illness, exacerbation or injury. 10-Not Attempted due to Environmental Limitations-(lack of equipment, weather restraints, etc.). 88-Not Attempted due to Medical Conditions or Safety Concerns. Other Treatment Pt seated in recliner. She completed functional activity of removing beads from red theraputty in order to increase fine motor strength and endurance. Pt talked with OT throughout session about the weather and how she hopes it does not storm, she is not a fan of storms. Post OT session, pt seated in recliner, call light in reach and all needs met. Education OT Patient Education: Correct positioning, Energy conservation, Exercise program, Modified ADL techniques, Progress toward Goal/Update tx plan, Purpose of tx/functional activities Teaching Recipient: Patient Teaching Methods: Demonstration, Discussion Response to Teaching: Verbalize Understanding, Return Demonstration OT Short Term Goals Short Term Goals Upper body dressin Lower body dressin Putting on/taking off footwear: 5 OT Marine Meteorologist Goals Fpc Goals Time Frame: March 27, 2020 Eating (QC): 6 Oral Hygiene (QC): 6 Toileting Hygiene (QC): 6 Shower/Bathe Self (QC): 6 Upper Body Dressing (QC): 6 Lower Body Dressing (QC): 6 On/Off Footwear (QC): 6 Additional Goals: 1-Demonstrate ADL Tasks, 2-Verbalize Understanding, 3- ImproveStrength/Fern 1=Demonstrate adherence to instructed precautions during ADL tasks. 2=Patient will verbalize/demonstrate understanding of assistive devices/modifications for ADL. 3=Patient will improve strength/tolerance for activity to enable patient to perform ADL's. OT Education/Plan Problem List/Assessment Assessment: Decreased Activ Tolerance, Decreased UE Strength, Impaired Funct Balance, Impaired I ADL's, Impaired Self-Care Skills Discharge Recommendations Plan/Recommendations: Continue POC Treatment Plan/Plan of Care Patient would benefit from OT for education, treatment and training to promote independence in ADL's, mobility, safety and/or upper extremity function for ADL's. Plan of Care: ADL Retraining, Concurrent Therapy, Functional Mobility, Group Exercise/Act as Ind, UE Funct Exercise/Act Treatment Duration: March 27, 2020 Frequency: At least 5 of 7 days/Wk (IRF) Estimated Hrs Per Day: 1.5 hours per day Agreement: Yes Rehab Potential: Fair Time/GCodes Start Time: 12:50 Stop Time: 13:05 Total Time Billed (hr/min): 15 Billed Treatment Time 1, SHAVON CLARKE OT Mar 18, 2020 13:36
[2020-03-18] MEDS: [UNRECOGNIZED DRUG - OTHER] PO SCH ×12 (13:58→22:10)
[2020-03-18] MEDS: PREDNISOLONE PO SCH ×12 (13:58→22:10)
[2020-03-18] MEDS: NYSTATIN PO SCH ×12 (13:58→22:10)
[2020-03-18] MEDS ORDERED: TROUGH ORDER-PHARMACY XX ONE (14:00)
--- NOTE | 2020-03-18 15:04 | NUR ---
PT WAS TEARFUL FIRST THING THIS MORNING, BUT MOOD HAS IMPROVED WELL APPETITE. URINE DARK MATIAS, ENCOURAGED PT TO INCREASE FLUIDS.
[2020-03-18 17:26] VITALS: BP 121/82
[2020-03-19] MEDS: NYSTATIN ORAL SUSP 5 ML UDC PO SCH ×4 (01:36→18:00)
[2020-03-19 05:46] VITALS: BP 138/89
[2020-03-19] MEDS: PREDNISOLONE PO SCH ×16 (06:37→20:52)
[2020-03-19] MEDS: NYSTATIN PO SCH ×16 (06:37→20:52)
[2020-03-19] MEDS: [UNRECOGNIZED DRUG - OTHER] PO SCH ×16 (06:37→20:52)
[2020-03-19 06:49] LABS: BASOPHILS % (AUTO) 0 % (0-10); EOSINOPHILS # (AUTO) 0.3 10^3/uL (0.0-0.3); EOSINOPHILS % (AUTO) 3 % (0-10); HEMATOCRIT 30 % (35-52); HEMOGLOBIN 9.8 G/DL (11.5-16.0); LYMPHOCYTES # (AUTO) 0.9 X 10^3 (1.0-4.0); LYMPHOCYTES % (AUTO) 8 % (12-44); MEAN CORPUSCULAR HEMOGLOBIN 27 PG (25-34); MEAN CORPUSCULAR HGB CONC 33 G/DL (32-36); MEAN CORPUSCULAR VOLUME 83 FL (80-99); MEAN PLATELET VOLUME 8.2 FL (7.4-10.4); MONOCYTES # (AUTO) 0.9 X 10^3 (0.0-1.0); MONOCYTES % (AUTO) 8 % (0-12); NEUTROPHILS # (AUTO) 8.7 X 10^3 (1.8-7.8); NEUTROPHILS % (AUTO) 81 % (42-75); PLATELET COUNT 430 10^3/uL (130-400); RED CELL DISTRIBUTION WIDTH 22.5 % (10.0-14.5); WHITE BLOOD COUNT 10.9 10^3/uL (4.3-11.0)
[2020-03-19 07:10] LABS: BUN/CREATININE RATIO 13; CALCIUM 7.5 MG/DL (8.5-10.1); CARBON DIOXIDE 15 MMOL/L (21-32); CHLORIDE 112 MMOL/L (98-107); CREATININE SERUM 0.62 MG/DL (0.60-1.30); GFR ESTIMATED > 60; GLUCOSE 100 MG/DL (70-105); MAGNESIUM 1.8 MG/DL (1.6-2.4); PHOSPHORUS 3.1 MG/DL (2.3-4.7); POTASSIUM 3.8 MMOL/L (3.6-5.0); SODIUM 137 MMOL/L (135-145)
[2020-03-19 07:29] LABS: ANISOCYTOSIS SLIGHT; BAND NEUTROPHILS 2 %; EOSINOPHILS % (MANUAL) 1 %; LYMPHOCYTES % (MANUAL) 4 %; MONOCYTES % (MANUAL) 8 %; NEUTROPHILS % (MANUAL) 85 %; POIKILOCYTOSIS SLIGHT
[2020-03-19 07:30] LABS: BURR CELLS SLIGHT
[2020-03-19] MEDS: PIPERACILLIN/TAZO 4.5 GM/NS 100 ML IV SCH ×6 (07:55→22:17)
[2020-03-19] MEDS: CATHETER FLUSH 10 ML SYR IV SCH ×3 (07:56→22:17)
[2020-03-19 08:30] VITALS: BP 124/84
[2020-03-19] MEDS: DOCUSATE SODIUM 100 MG (COLACE) CAP PO SCH ×2 (08:50→20:55)
[2020-03-19] MEDS: SENNA W/DOCUSATE (SENOKOT S) TABLET PO SCH ×2 (08:50→20:55)
[2020-03-19] MEDS: polyethylene glycoL POWDER 17 GM (MIRALAX) PACK PO SCH ×2 (08:50→20:55)
[2020-03-19] MEDS: NYSTATIN CREAM (MYCOSTATIN) 30 GM TUBE TP SCH ×2 (08:51→21:02)
[2020-03-19] MEDS: MICONAZOLE 2% POWDER (DESENEX AF) 90 GM TOP SCH ×2 (08:51→21:02)
[2020-03-19] MEDS: PANTOPRAZOLE 40 MG (PROTONIX) TAB PO SCH (08:52)
[2020-03-19] MEDS: meTOprolol TARTRATE 50 MG (LOPRESSOR) TAB PO SCH ×2 (09:08→20:51)
--- NOTE | 2020-03-19 09:21 | Occupational Ther Daily Note ---
OT Current Status-Daily Note Subjective Pt seated upright in recliner, agreeable to OT tx this AM with focus on ADLs. She reports pain in her buttocks, did not verbalize pain rating. Mental Status/Objective Patient Orientation: Normal For Age Attachments: IV ADL-Treatment Therapy Code Descriptions/Definitions Functional [place] Measure: 0=Not Assessed/NA 4=Minimal Assistance 1=Total Assistance 5=Supervision or Setup 2=Maximal Assistance 6=Modified [place] 3=Moderate Assistance 7=Complete IndependenceSCALE: Activities may be completed with or without assistive devices. 7-Hzhsekwamx-timfdzo completes the activity by him/herself with no assistance from a helper. 5-Set-up or Clean-up Assistance-helper sets up or cleans up; patient completes activity. [employer] assists only prior to or following the activity. 4-Supervision or Touching Assistance-helper provides verbal cues and/or touching/steadying and/or contact guard assistance as patient completes activity. Assistance may be provided throughout the activity or intermittently. 3-Partial/Moderate Assistance-helper does LESS THAN HALF the effort. [employer] lifts, holds or supports trunk or limbs, but provides less than half the effort. 2-Substantial/Maximal Assistance-helper does MORE THAN HALF the effort. [employer] lifts or holds trunk or limbs and provides more than half the effort. 7-Axijskhiq-eezhqo does ALL the effort. Patient does none of the effort to complete the activity. Or, the assistance of 2 or more helpers is required for the patient to complete the activity. If activity was not attempted, code reason: 7-Patient Refused. 9-Not Applicable-not attempted and the patient did not perform the activity before the current illness, exacerbation or injury. 10-Not Attempted due to Environmental Limitations-(lack of equipment, weather restraints, etc.). 88-Not Attempted due to Medical Conditions or Safety Concerns. Shower/Bathe Self (QC): 4 (sponge bath. Pt able to wash all parts, SBA in stand at FWW) Lower Body Dressing (QC): 4 (Pt donned brief with sheet metal journeyman, no verbal cues needed. SBA during stand at FWW) On/Off Footwear: 3 (Pt doffed socks, OT dependently donned TEDhose. Pt then able to don socks with sock aide, no cues required) Other Treatment Pt seated in recliner, agreeable to OT tx. She completed sponge bath and dressing at recliner, with rest breaks as needed. Pt required SBA with all stands at FWW, and increased time with ADLs. Upper body dressing not attempted on this date due to pt having IV hooked up during tx. Post OT session, pt seated in recliner, call light in reach and all needs met. Education OT Patient Education: Correct positioning, Energy conservation, Exercise program, Modified ADL techniques, Progress toward Goal/Update tx plan, Purpose of tx/functional activities, Safety issues, Use of adapted equipment Teaching Recipient: Patient Teaching Methods: Discussion Response to Teaching: Verbalize Understanding OT Short Term Goals Short Term Goals Upper body dressin Lower body dressin Putting on/taking off footwear: 5 OT Halfway Goals Halfway Goals Time Frame: March 27, 2020 Eating (QC): 6 Oral Hygiene (QC): 6 Toileting Hygiene (QC): 6 Shower/Bathe Self (QC): 6 Upper Body Dressing (QC): 6 Lower Body Dressing (QC): 6 On/Off Footwear (QC): 6 Additional Goals: 1-Demonstrate ADL Tasks, 2-Verbalize Understanding, 3- ImproveStrength/Fern 1=Demonstrate adherence to instructed precautions during ADL tasks. 2=Patient will verbalize/demonstrate understanding of assistive devic es/modifications for ADL. 3=Patient will improve strength/tolerance for activity to enable patient to perform ADL's. OT Education/Plan Problem List/Assessment Assessment: Decreased Activ Tolerance, Decreased UE Strength, Impaired I ADL's, Impaired Self-Care Skills Discharge Recommendations Plan/Recommendations: Continue POC Treatment Plan/Plan of Care Patient would benefit from OT for education, treatment and training to promote independence in ADL's, mobility, safety and/or upper extremity function for ADL's. Plan of Care: ADL Retraining, Concurrent Therapy, Functional Mobility, Group Exercise/Act as Ind, UE Funct Exercise/Act Treatment Duration: March 27, 2020 Frequency: At least 5 of 7 days/Wk (IRF) Estimated Hrs Per Day: 1.5 hours per day Agreement: Yes Rehab Potential: Fair Time/GCodes Start Time: 08:00 Stop Time: 09:15 Total Time Billed (hr/min): 75 Billed Treatment Time 1, ADL 5 SHAVON BARTLETT OT Mar 19, 2020 09:20
--- NOTE | 2020-03-19 10:05 | PM&R Progress Note ---
Subjective HPI/CC On Admission Date Seen by Provider: Mar 19, 2020 Time Seen by Provider: 11:00 Subjective/Events-last exam Patient doing better each day and especially since blood given 2 days ago of 2 units Psych evaluation completed and seems to have helped with just talk therapy and no med recommended Fever and w/u ordered by Dr Taveras prompted starting IV abx for facility acquire infection Abx D#5, no fever now Pain managed Poor nutrition with albumin 2.0 is causing the third spacing also Pain is tolerated Iliostomy working well for the patient Checked meds and labs Conferred with RN Reviewed therapy notes Review of Systems General: Fatigue Cardiovascular: Edema Objective Exam Vital Signs Vital Signs Date Time Temp Pulse Resp B/P (MAP) Pulse Ox O2 Delivery O2 Flow Rate FiO2 03/20/20 06:00 36.1 94 22 125/78 (94) 98 Room Air 03/17/20 10:05 21 Capillary Refill : Less Than 3 Seconds General Appearance: No Apparent Distress, Anxious, Chronically ill HEENT: PERRL/EOMI, Moist Mucous Membranes Neck: Full Range of Motion, Non Tender, Supple Respiratory: Chest Non Tender, Lungs Clear, No Accessory Muscle Use, No Respiratory Distress, Decreased Breath Sounds Cardiovascular: Regular Rate, Rhythm, No Murmur Gastrointestinal: Normal Bowel Sounds, No Organomegaly, No Pulsatile Mass, Soft, Tenderness Back: Normal Inspection, No CVA Tenderness, No Vertebral Tenderness Extremity: Pedal Edema (2+ legs) Neurologic/Psychiatric: Motor Weakness (generalized all extremties) Skin: Normal Color Lymphatic: No Adenopathy Results/Procedures Lab Laboratory Tests 03/20/20 06:35 Patient resulted labs reviewed. FIM Transfers Therapy Code Descriptions/Definitions Functional [place] Measure: 0=Not Assessed/NA 4=Minimal Assistance 1=Total Assistance 5=Supervision or Setup 2=Maximal Assistance 6=Modified [place] 3=Moderate Assistance 7=Complete IndependenceSCALE: Activities may be completed with or without assistive devices. 4-Mpcuhdsniz-cwczqdm completes the activity by him/herself with no assistance from a helper. 5-Set-up or Clean-up Assistance-helper sets up or cleans up; patient completes activity. [place] assists only prior to or following the activity. 4-Supervision or Touching Assistance-helper provides verbal cues and/or touching/steadying and/or contact guard assistance as patient completes activity. Assistance may be provided throughout the activity or intermittently. 3-Partial/Moderate Assistance-helper does LESS THAN HALF the effort. [place] lifts, holds or supports trunk or limbs, but provides less than half the effort. 2-Substantial/Maximal Assistance-helper does MORE THAN HALF the effort. [place] lifts or holds trunk or limbs and provides more than half the effort. 7-Jeocfgdvw-srlkfy does ALL the effort. Patient does none of the effort to complete the activity. Or, the assistance of 2 or more helpers is required for the patient to complete the activity. If activity was not attempted, code reason: 7-Patient Refused. 9-Not Applicable-not attempted and the patient did not perform the activity before the current illness, exacerbation or injury. 10-Not Attempted due to Environmental Limitations-(lack of equipment, weather restraints, etc.). 88-Not Attempted due to Medical Conditions or Safety Concerns. Roll Left to Right (QC): 5 Sit to Lying (QC): 6 Sit to Stand (QC): 6 Chair/Hzw-ed-Hwpib Xfer(QC): 6 Car Transfer (QC): 3 Gait Training Does the Patient Walk?: Yes Walk 10 feet (QC): 5 Walk 50 ft with 2 Turns(QC): 5 Walk 150 ft (QC): 5 Walking 10ft/uneven surface-QC: 4 Gait Persons Needed: 1 Gait Assistive Device: FWW Wheelchair Training Does the Pt Use a Wheelchair?: No Wheel 50 ft with 2 turns (QC): 9 Wheel 150 ft (QC): 9 Stair Training Stair Training: Handrails/: uses walker #of Steps: 2 1 Step (curb) (QC): 88 4 Steps (QC): 88 12 Steps (QC): 88 Stairs: Pattern: Step to Balance Picking up an Object (QC): 88 ADL-Treatment Eating (QC): 6 Oral Hygiene (QC): 6 (Pt completed task seated at sink) Shower/Bathe Self (QC): 4 (sponge bath. Pt able to wash all parts, SBA in stand at FWW) Upper Body Dressing (QC): 5 (s/u) Lower Body Dressing (QC): 4 (Pt donned brief with crystal report developer, no verbal cues needed. SBA during stand at FWW) On/Off Footwear (QC): 3 (Pt doffed socks, OT dependently donned TEDhose. Pt then able to don socks with sock aide, no cues required) Toileting Hygiene (QC): 4 (SBA in stance per pt report and per clinical judgment ) Assessment/Plan Assessment and Plan Assess & Plan/Chief Complaint Assessment: Debility s/p critical illness and VDRF 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 Anasarca Hirsutism Poor albumin level Sore mouth added Nystatin and Magic mouthwash Fever Zosyn added by Dr Taveras empirically Ascites s/p paracentesis anemia s/p transfusions 2 units 03/17/20 Plan: Mouth treatment is improving status IRF protocol Lab monitored Check labs periodically Wound care to iliostomy site Paracentesis completed (1) S/P colectomy (2) Ileostomy in place (3) Hirsutism (4) Tachycardia (5) Anasarca (6) Anemia (7) Debility (8) Sigmoid volvulus (9) Leukocytosis (10) Acute kidney injury (11) Hyponatremia (12) Coronary artery disease (13) Abdominal pain Status: Acute (14) Elevated troponin (15) S/P cardiac cath SESAR BEEBE DO Mar 19, 2020 10:05
--- NOTE | 2020-03-19 12:23 | Progress Note - Surgery ---
Subjective Time Seen by a Provider: 11:42 Subjective/Events-last exam Pt seen and examined, states she feels a little bit stronger today. No other complaints. Review of Systems Cardiovascular: No: Chest Pain, Palpitations Gastrointestinal: No: Nausea, Vomiting Objective Exam Vital Signs Date Time Temp Pulse Resp B/P (MAP) Pulse Ox O2 Delivery O2 Flow Rate FiO2 03/19/20 09:16 Room Air 03/19/20 08:30 122 20 124/84 (97) 98 Room Air 03/19/20 05:46 36.2 103 20 138/89 (105) 99 Room Air 03/18/20 21:00 Room Air 03/18/20 17:26 37.0 112 20 121/82 (95) 98 Room Air I & O 03/19/20 07:00 Intake Total 1360 ml Output Total 5300 ml Balance -3940 ml Capillary Refill : Less Than 3 Seconds General Appearance: No Apparent Distress, Anxious, Chronically ill HEENT: PERRL/EOMI, Moist Mucous Membranes Respiratory: Chest Non Tender, Lungs Clear, No Accessory Muscle Use, No Respiratory Distress, Decreased Breath Sounds Cardiovascular: Regular Rate, Rhythm, No Murmur Gastrointestinal: soft, distended (mild), other (incision does not appear infected, skin slightly pulled apart in some places - no changes from 03/18. Ileostomy large amount of output) Extremity: Pedal Edema (2+ legs) Neurologic/Psychiatric: Motor Weakness (generalized all extremties) Results Lab Laboratory Tests 03/19/20 06:30: White Blood Count 10.9, Red Blood Count 3.62L, Hemoglobin 9.8L, Hematocrit 30L, Mean Corpuscular Volume 83, Mean Corpuscular Hemoglobin 27, Mean Corpuscular Hemoglobin Concent 33, Red Cell Distribution Width 22.5H, Platelet Count 430H, Mean Platelet Volume 8.2, Neutrophils (%) (Auto) 81H, Lymphocytes (%) (Auto) 8L, Monocytes (%) (Auto) 8, Eosinophils (%) (Auto) 3, Basophils (%) (Auto) 0, Neutrophils # (Auto) 8.7H, Lymphocytes # (Auto) 0.9L, Monocytes # (Auto) 0.9, Eosinophils # (Auto) 0.3, Basophils # (Auto) 0.0, Neutrophils % (Manual) 85, Lymphocytes % (Manual) 4, Monocytes % (Manual) 8, Eosinophils % (Manual) 1, Band Neutrophils 2, Poikilocytosis SLIGHT, Anisocytosis SLIGHT, Tristen Cells SLIGHT, Sodium Level 137, Potassium Level 3.8, Chloride Level 112H, Carbon Dioxide Level 15L, Anion Gap 10, Blood Urea Nitrogen 8, Creatinine 0.62, Estimat Glomerular Filtration Rate > 60, BUN/Creatinine Ratio 13, Glucose Level 100, Calcium Level 7.5L, Phosphorus Level 3.1, Magnesium Level 1.8 Microbiology 03/16/20 Gram Stain - Final, Resulted 03/16/20 Anaerobic Culture - Preliminary, Resulted No anaerobes isolated 03/16/20 Surgical Culture - Preliminary, Resulted No growth 03/14/20 Blood Culture - Preliminary, Resulted No growth Assessment/Plan Assessment/Plan Assessment/Plan Anemia - Hg at 9.8 today (stable) Ascites -turned out to be serosanguinous; probably more sanguinous than serous Weakness - improving S/P Subtotal Colectomy Pt's hemoglobin is stable. Midline incision no changes; continue to try and keep it clean and dry. Diet as tolerated with increased protein and fluids because of large output in ileostomy. Continue rehab. Clinical Quality Measures DVT/VTE Risk/Contraindication: Risk Factor Score Per Nursin RFS Level Per Nursing on Admit: 4+=Very High SHEILA DE OLIVEIRA DO Mar 19, 2020 12:23
--- NOTE | 2020-03-19 13:05 | NUR ---
CM/SS WEEKLY TEAM CONFERENCE SUMMARY Met with patient yesterday afternoon to review Summary and she is in agreement for continued stay and subsequent review next conference date 03/25/20. Electronic Installer contacted Manuel Castillo RN, Patient Education & Wound Care, regarding patient ostomy teaching and supplies. He visited [facility] this a.m. and updated that patient was given paperwork for [employer] that, once completed/faxed, will trigger free samples to be sent to patient. Regarding intermission coordinator supplies, patient remains uninsured and this process will be explored with [employer] during her stay here. Manuel reportedly has met with patient a couple of times regarding her independent management of ostomy and recommended that she participate with RN's for changing and emptying her current appliances. He will continue to follow. Unit RN reports that patient's motivation about participation in her ostomy care has improved since the weekend. Continue supportive education and return demonstration for self management. Barrier to discharge at present is uninsured status as it pertains to supplies and services post hospital stay.
--- NOTE | 2020-03-19 13:52 | Occupational Ther Daily Note ---
OT Current Status-Daily Note Subjective Pt seated in recliner at start of session, agreeable to OT tx. Pt reports being worn out this afternoon, declining going to therapy area at this time. Mental Status/Objective Patient Orientation: Normal For Age ADL-Treatment Therapy Code Descriptions/Definitions Functional [place] Measure: 0=Not Assessed/NA 4=Minimal Assistance 1=Total Assistance 5=Supervision or Setup 2=Maximal Assistance 6=Modified [place] 3=Moderate Assistance 7=Complete IndependenceSCALE: Activities may be completed with or without assistive devices. 0-Zkqwplgwsa-umpujuy completes the activity by him/herself with no assistance from a helper. 5-Set-up or Clean-up Assistance-helper sets up or cleans up; patient completes activity. [place] assists only prior to or following the activity. 4-Supervision or Touching Assistance-helper provides verbal cues and/or touching/steadying and/or contact guard assistance as patient completes activity . Assistance may be provided throughout the activity or intermittently. 3-Partial/Moderate Assistance-helper does LESS THAN HALF the effort. [place] lifts, holds or supports trunk or limbs, but provides less than half the effort. 2-Substantial/Maximal Assistance-helper does MORE THAN HALF the effort. [place] lifts or holds trunk or limbs and provides more than half the effort. 5-Ikkbvhert-hshjbr does ALL the effort. Patient does none of the effort to complete the activity. Or, the assistance of 2 or more helpers is required for the patient to complete the activity. If activity was not attempted, code reason: 7-Patient Refused. 9-Not Applicable-not attempted and the patient did not perform the activity before the current illness, exacerbation or injury. 10-Not Attempted due to Environmental Limitations-(lack of equipment, weather restraints, etc.). 88-Not Attempted due to Medical Conditions or Safety Concerns. Other Treatment Pt seated in recliner, agreed to OT tx. She reports being tired and would like to go to bed after OT tx. Pt agreed to OT session in her room. Pt removed beads from red theraputty in order to increase fine motor strength/coordination with tasks. After task, pt transferred sit to stand with SBA, then transferred to bed with FWW and SBA. Pt sat EOB, transferred supine. She attempted to bring her legs into the bed but was unsuccessful, requiring assistance with BLES. Post OT session, pt laying in bed, call light in reach and all needs met. Education OT Patient Education: Correct positioning, Energy conservation, Modified ADL techniques, Progress toward Goal/Update tx plan, Purpose of tx/functional activities, Safety issues, Transfer techniques Teaching Recipient: Patient Teaching Methods: Discussion Response to Teaching: Verbalize Understanding OT Short Term Goals Short Term Goals Upper body dressin Lower body dressin Putting on/taking off footwear: 5 OT Medicaid Billing Specialist Goals Medicaid Billing Specialist Goals Time Frame: March 27, 2020 Eating (QC): 6 Oral Hygiene (QC): 6 Toileting Hygiene (QC): 6 Shower/Bathe Self (QC): 6 Upper Body Dressing (QC): 6 Lower Body Dressing (QC): 6 On/Off Footwear (QC): 6 Additional Goals: 1-Demonstrate ADL Tasks, 2-Verbalize Understanding, 3- ImproveStrength/Fern 1=Demonstrate adherence to instructed precautions during ADL tasks. 2=Patient will verbalize/demonstrate understanding of assistive devices/m odifications for ADL. 3=Patient will improve strength/tolerance for activity to enable patient to perform ADL's. OT Education/Plan Problem List/Assessment Assessment: Decreased Activ Tolerance, Decreased UE Strength, Impaired Bed Mobility, Impaired I ADL's, Impaired Self-Care Skills Discharge Recommendations Plan/Recommendations: Continue POC Treatment Plan/Plan of Care Patient would benefit from OT for education, treatment and training to promote independence in ADL's, mobility, safety and/or upper extremity function for ADL's. Plan of Care: ADL Retraining, Concurrent Therapy, Functional Mobility, Group Exercise/Act as Ind, UE Funct Exercise/Act Treatment Duration: March 27, 2020 Frequency: At least 5 of 7 days/Wk (IRF) Estimated Hrs Per Day: 1.5 hours per day Agreement: Yes Rehab Potential: Fair Time/GCodes Start Time: 13:30 Stop Time: 13:45 Total Time Billed (hr/min): 15 Billed Treatment Time RAMIREZ Parkinson ADDISON OT Mar 19, 2020 13:52
--- NOTE | 2020-03-19 13:57 | Physical Therapy Daily Note ---
PT Daily Note-Current Subjective Pt agreeable to PT, denies pain upon arrival. Pt call nurse aid to empty colostomy bag. Pt states she is trying to watch so she can learn. Discussed pt possibly asking nurse staff to allow her to care for colostomy. Pt agreeable. Pt does c/o pain with sitting on nu-step intially, adjusts to more comfortable position. Pt c/o fatigue post therapy session. Mental Status Patient Orientation: Person, Place, Situation Attachments: IV Transfers SCALE: Activities may be completed with or without assistive devices. 8-Rvyveoiaft-rzcechb completes the activity by him/herself with no assistance from a helper. 5-Set-up or Clean-up Assistance-helper sets up or cleans up; patient completes activity. [place] assists only prior to or following the activity. 4-Supervision or Touching Assistance-helper provides verbal cues and/or touching/steadying and/or contact guard assistance as patient completes activity. Assistance may be provided throughout the activity or intermittently. 3-Partial/Moderate Assistance-helper does LESS THAN HALF the effort. [place] lifts, holds or supports trunk or limbs, but provides less than half the effort. 2-Substantial/Maximal Assistance-helper does MORE THAN HALF the effort. [place] lifts or holds trunk or limbs and provides more than half the effort. 1-Ybwjgufed-ewvmwj does ALL the effort. Patient does none of the effort to compl ete the activity. Or, the assistance of 2 or more helpers is required for the patient to complete the activity. If activity was not attempted, code reason: 7-Patient Refused. 9-Not Applicable-not attempted and the patient did not perform the activity before the current illness, exacerbation or injury. 10-Not Attempted due to Environmental Limitations-(lack of equipment, weather restraints, etc.). 88-Not Attempted due to Medical Conditions or Safety Concerns. transfers mod (I) sit-stand transfers Gait Training Gait Assistive Device: FWW Pt amb with FWW 4 x 108ft with CGA and f/u IV pole. Pt required 2-3 min rest between walking bouts. Exercises Seated Therapy Exercises: Ankle pumps, Long arc quads, Hip flexion, Hip abd/add Seated Reps: 20 Standing: Step-ups Standing Reps: 8 NuStep Minutes: 15 NuStep Workload: 5 Treatments Pt participated in seated ther ex, gait training, step up on 6" curb step in //bars, and nu-step for endurance. Assessment Current Status: Good Progress Pt endurance steadily improving. Pt did c/o fatigue. Pt became tearful during step up exercise. When asked what was wrong she replied "it is just hard". Otherwise, good tolerance to treatment with rest breaks as needed. Colostomy bag leaked, apparent upon return to room. Nursing notified by pt. Pt seated in chair with call light and all needs met. PT Short Term Goals Short Term Goals Time Frame: Mar 20, 2020 Roll Left & Right: 3 Sit to lyin Lying to sitting on side of be: 3 Sit to stand: 4 Chair/lbr-ai-czmpm transfer: 4 Walk 10 feet: 4 Walk 50 feet with two turns: 4 Walk 150 feet: 4 PT Still Operator Goals Still Operator Goals PT Prison Goals Time Frame: April 03, 2020 Roll Left & Right (QC): 6 Sit to Lying (QC): 6 Lying-Sitting on Side/Bed(QC): 6 Sit to Stand (QC): 6 Chair/Ttn-jg-Rzyzw Xfer(QC): 6 Toilet Transfer (QC): 6 Car Transfer (QC): 6 Does the Patient Walk: Yes Walk 10 feet (QC): 6 Walk 50ft with 2 Turns (QC): 6 Walk 150 ft (QC): 6 Walking 10ft on Uneven Surface: 6 1 Step (curb) (QC): 4 4 Steps (QC): 4 12 Steps (QC): 88 Picking up an Object (QC): 88 Wheel 50 feet with 2 turns (QC: 88 Wheel 150 feet: 88 PT Plan Treatment/Plan Treatment Plan: Continue Plan of Care Treatment Plan: Bed Mobility, Education, Functional Activity Fern, Functional Strength, Group Therapy, Gait, Safety, Therapeutic Exercise, Transfers Treatment Duration: April 03, 2020 Frequency: At least 5 of 7 days/Wk (IRF) Estimated Hrs Per Day: 1.5 hours per day Patient and/or Family Agrees t: Yes Time/GCodes Time In: 1000 Time Out: 1120 Total Billed Treatment Time: 80 Total Billed Treatment 1, ther ex x 45', Gait x 35' MOISÉS EMERSON CPTA Mar 19, 2020 13:57
--- NOTE | 2020-03-19 14:10 | Physical Therapy Daily Note ---
PT Daily Note-Current Subjective Pt up in chair, agreeable to treatment. Pt denies pain, says she is tired. Mental Status Patient Orientation: Person, Place, Situation Transfers SCALE: Activities may be completed with or without assistive devices. 8-Gwvazesvvn-issolej completes the activity by him/herself with no assistance from a helper. 5-Set-up or Clean-up Assistance-helper sets up or cleans up; patient completes activity. [place] assists only prior to or following the activity. 4-Supervision or Touching Assistance-helper provides verbal cues and/or touching/steadying and/or contact guard assistance as patient completes activity. Assistance may be provided throughout the activity or intermittently. 3-Partial/Moderate Assistance-helper does LESS THAN HALF the effort. [place] lifts, holds or supports trunk or limbs, but provides less than half the effort. 2-Substantial/Maximal Assistance-helper does MORE THAN HALF the effort. [place] lifts or holds trunk or limbs and provides more than half the effort. 0-Bsdzgcpaw-jnaxyy does ALL the effort. Patient does none of the effort to complete the activity. Or, the assistance of 2 or more helpers is required for the patient to complete the activity. If activity was not attempted, code reason: 7-Patient Refused. 9-Not Applicable-not attempted and the patient did not perform the activity before the current illness, exacerbation or injury. 10-Not Attempted due to Environmental Limitations-(lack of equipment, weather restraints, etc.). 88-Not Attempted due to Medical Conditions or Safety Concerns. Gait Training Gait Assistive Device: FWW Pt amb with FWW x 220ft with SBA, slow and steady speed. Exercises Seated Therapy Exercises: Ankle pumps, Long arc quads, Hip flexion, Hip abd/add Seated Reps: 20 Assessment Current Status: Good Progress Pt breezy above well. Strength and stamina steadily improving. Pt would benefit from continued PT to improve strength,endurance and safe mobility. PT Short Term Goals Short Term Goals Time Frame: Mar 20, 2020 Roll Left & Right: 3 Sit to lyin Lying to sitting on side of be: 3 Sit to stand: 4 Chair/etz-ps-vmpjz transfer: 4 Walk 10 feet: 4 Walk 50 feet with two turns: 4 Walk 150 feet: 4 PT Correction Goals Planning Lead Goals PT Planning Lead Goals Time Frame: April 03, 2020 Roll Left & Right (QC): 6 Sit to Lying (QC): 6 Lying-Sitting on Side/Bed(QC): 6 Sit to Stand (QC): 6 Chair/Zwa-jr-Albkx Xfer(QC): 6 Toilet Transfer (QC): 6 Car Transfer (QC): 6 Does the Patient Walk: Yes Walk 10 feet (QC): 6 Walk 50ft with 2 Turns (QC): 6 Walk 150 ft (QC): 6 Walking 10ft on Uneven Surface: 6 1 Step (curb) (QC): 4 4 Steps (QC): 4 12 Steps (QC): 88 Picking up an Object (QC): 88 Wheel 50 feet with 2 turns (QC: 88 Wheel 150 feet: 88 PT Plan Treatment/Plan Treatment Plan: Continue Plan of Care Treatment Plan: Bed Mobility, Education, Functional Activity Fern, Functional Strength, Group Therapy, Gait, Safety, Therapeutic Exercise, Transfers Treatment Duration: April 03, 2020 Frequency: At least 5 of 7 days/Wk (IRF) Estimated Hrs Per Day: 1.5 hours per day Patient and/or Family Agrees t: Yes Time/GCodes Time In: 105 Time Out: 120 Total Billed Treatment Time: 15 Total Billed Treatment 1, gait 10', ther ex 5' MOISÉS EMERSON CPTA Mar 19, 2020 14:10
--- NOTE | 2020-03-19 14:51 | NUR ---
CM/SS CONCURRENT DOCUMENTATION Visited with patient's friend/caregiver to confirm post hospital arrangements. Her complete information is: Carola Perez (Kay) [address] [place] [address] She will accept patient into her home for a period of recuperation prior to patient returning home alone to her previous residence. Donna has agreed to be patient's DPOA-HC, she will confirm directly with patient she only agrees to healthcare and not general power of employment law attorney responsibilities. Chief Operator [employer] has sent referral through [facility] for this to be completed with patient. Completed order through [employer] for patient, specifically requesting Consumer Assistance Program (CAP) because of uninsured status. REQUESTED: Stock No: [id number] Flat CeraPlus Skin Barrier - Tape 43700 Two Piece Drainable Ostomy Pouch, Beige color 7917 Adapt Skin Protective Wipes 7760 Adapt [place] Remover Wipes 7906 Adapt Stoma Powder 8805 Adapt CeraRing Barrier Rings 7730 Adapt Medical Adhesive [place] Also requested ALTERATIONS SEWER as is provided through the [employer] Start Program. If patient is approved, items will be sent out to Donna's address for now, possibly for 6 months at a time. [place] will communicate directly with patient re same and patient access to them is phone [phone]. Patient sleeping soundly at this time, will update when convenient for her.
[2020-03-19 16:19] VITALS: BP 128/84
--- NOTE | 2020-03-19 19:28 | NUR ---
bedside report received from TEQUILA MODI/ALBERT MODI, assume care of pt
[2020-03-19 20:48] VITALS: BP 133/88
--- NOTE | 2020-03-19 20:54 | NUR ---
pt refused Colace, miralax & Senokot, c/o abd pain & mouth pain level 4/10 on numeric scale, Mycostatin liq 5ml & oxyir 5mg given
--- NOTE | 2020-03-19 21:40 | NUR ---
rates pain level 2/10 on numeric scale
--- NOTE | 2020-03-19 22:17 | Cardiology Progress Note ---
Cardiology SOAP Progress Note Subjective: No cardiac complaint. Objective: I&O/Vital Signs 03/20/20 03/20/20 03/20/20 03/20/20 06:00 08:15 09:10 09:13 Temp 36.1 36.1 Pulse 94 94 Resp 22 B/P (MAP) 125/78 (94) Pulse Ox 98 98 98 O2 Delivery Room Air Room Air Room Air 03/20/20 00:00 Intake Total 1417 ml Output Total 2220 ml Balance -803 ml Constitutional: AAO x 3 Respiratory: chest is bilaterally symmetric, lungs clear to auscultation Cardiovascular: regular rate-rhythm, S1 and S2, systolic murmur Gastrointestional: other (recent abdominal surgery, abdominal exam was not done.) Extremities: pedal edema Neurologic/Psychiatric: no motor/sensory deficits, alert, normal mood/affect, oriented x 3 Skin: normal color Results/Procedures: Labs Laboratory Tests 03/20/20 06:35: White Blood Count 9.4, Red Blood Count 3.54L, Hemoglobin 9.6L, Hematocrit 30L, Mean Corpuscular Volume 84, Mean Corpuscular Hemoglobin 27, Mean Corpuscular Hemoglobin Concent 32, Red Cell Distribution Width 22.4H, Platelet Count 381, Mean Platelet Volume 8.2, Neutrophils (%) (Auto) 79H, Lymphocytes (%) (Auto) 9L, Monocytes (%) (Auto) 10, Eosinophils (%) (Auto) 2, Basophils (%) (Auto) 0, Neutrophils # (Auto) 7.5, Lymphocytes # (Auto) 0.8L, Monocytes # (Auto) 0.9, Eosinophils # (Auto) 0.2, Basophils # (Auto) 0.0, Sodium Level 136, Potassium Level 3.8, Chloride Level 112H, Carbon Dioxide Level 15L, Anion Gap 9, Blood Urea Nitrogen 9, Creatinine 0.60, Estimat Glomerular Filtration Rate > 60, BUN/Creatinine Ratio 15, Glucose Level 91, Calcium Level 7.4L, Phosphorus Level 3.1, Magnesium Level 1.9 Microbiology 03/16/20 Gram Stain - Final, Complete 03/16/20 Anaerobic Culture - Final, Complete No anaerobes isolated 03/16/20 Surgical Culture - Final, Complete No growth 03/14/20 Blood Culture - Final, Complete No growth A/P: Assessment/Dx: Currently in inpatient rehabilitation. Sinus tach and leucocytosis, consider systemic infection (managed by [facility] Surg S[facility]). Okay to DC telemetry. S/p colectomy for intestinal obstruction Marked post-op anemia, managed by the Surgical and Hospitalist Services - rec eived 2 units of 03-09-2020 Hypokalemia, corrected Abnormal ECG, but no evidence of ac GA CAD, h/o cor stenting at [facility] in Oct 2019. Last card cath on 03/05/20: patent stents in the mid left circumflex and the mid right coronary arteries. There is moderate diffuse disease of all coronary arteries. There is moderately severe diffuse disease of the distal left anterior descending. A small caliber obtuse marginal has 70% to 80% ostial stenosis. Normal left ventricular end- diastolic pressure. Echo of 03/05/20: LVEF 60-65%, mild to mod TR, RVSP 35-40 mmHg, mild dilatation of LA Post-op hypotension and EMIGDIO 2, resolved Plan: * Beta nadeem * Continue DAPT because of recent coronary stenting. On aspirin and Plavix. * Monitor labs * I recommend DVT prophylaxis if no surgical contraindication. Will defer to Dr. Ji. Thank you for your consultation. Please call me if you have any questions. Odessa Allen MD, FACP, FACC, FSCAI, FHRS, CCDS Interventional Cardiology Cardiac Electrophysiology Vascular Medicine and Endovascular Interventions Kusum ALLEN MD Mar 19, 2020 22:17
[2020-03-20] MEDS: NYSTATIN ORAL SUSP 5 ML UDC PO SCH ×5 (00:23→23:19)
[2020-03-20 06:00] VITALS: BP 125/78
[2020-03-20] MEDS: CATHETER FLUSH 10 ML SYR IV SCH ×3 (06:14→21:08)
[2020-03-20] MEDS: [UNRECOGNIZED DRUG - OTHER] PO SCH ×16 (06:15→21:09)
[2020-03-20] MEDS: PREDNISOLONE PO SCH ×16 (06:15→21:09)
[2020-03-20] MEDS: NYSTATIN PO SCH ×16 (06:15→21:09)
[2020-03-20 06:50] LABS: BASOPHILS % (AUTO) 0 % (0-10); EOSINOPHILS # (AUTO) 0.2 10^3/uL (0.0-0.3); EOSINOPHILS % (AUTO) 2 % (0-10); HEMATOCRIT 30 % (35-52); HEMOGLOBIN 9.6 G/DL (11.5-16.0); LYMPHOCYTES # (AUTO) 0.8 X 10^3 (1.0-4.0); LYMPHOCYTES % (AUTO) 9 % (12-44); MEAN CORPUSCULAR HEMOGLOBIN 27 PG (25-34); MEAN CORPUSCULAR HGB CONC 32 G/DL (32-36); MEAN CORPUSCULAR VOLUME 84 FL (80-99); MEAN PLATELET VOLUME 8.2 FL (7.4-10.4); MONOCYTES # (AUTO) 0.9 X 10^3 (0.0-1.0); MONOCYTES % (AUTO) 10 % (0-12); NEUTROPHILS # (AUTO) 7.5 X 10^3 (1.8-7.8); NEUTROPHILS % (AUTO) 79 % (42-75); PLATELET COUNT 381 10^3/uL (130-400); RED CELL DISTRIBUTION WIDTH 22.4 % (10.0-14.5); WHITE BLOOD COUNT 9.4 10^3/uL (4.3-11.0)
[2020-03-20 07:04] LABS: BUN/CREATININE RATIO 15; CALCIUM 7.4 MG/DL (8.5-10.1); CARBON DIOXIDE 15 MMOL/L (21-32); CHLORIDE 112 MMOL/L (98-107); GFR ESTIMATED > 60; GLUCOSE 91 MG/DL (70-105); MAGNESIUM 1.9 MG/DL (1.6-2.4); PHOSPHORUS 3.1 MG/DL (2.3-4.7); POTASSIUM 3.8 MMOL/L (3.6-5.0); SODIUM 136 MMOL/L (135-145)
[2020-03-20] MEDS: DOCUSATE SODIUM 100 MG (COLACE) CAP PO SCH ×2 (08:36→21:08)
[2020-03-20] MEDS: polyethylene glycoL POWDER 17 GM (MIRALAX) PACK PO SCH ×2 (08:37→21:08)
[2020-03-20] MEDS: SENNA W/DOCUSATE (SENOKOT S) TABLET PO SCH ×2 (08:37→21:09)
[2020-03-20] MEDS: MICONAZOLE 2% POWDER (DESENEX AF) 90 GM TOP SCH ×2 (08:37→21:10)
[2020-03-20] MEDS: NYSTATIN CREAM (MYCOSTATIN) 30 GM TUBE TP SCH ×3 (08:37→21:14)
--- NOTE | 2020-03-20 09:01 | Occupational Ther Daily Note ---
OT Current Status-Daily Note Subjective Pt seated upright in recliner at start of session, agreeable to OT tx. She did not verbalize any pain during tx. Mental Status/Objective Patient Orientation: Normal For Age ADL-Treatment Therapy Code Descriptions/Definitions Functional [place] Measure: 0=Not Assessed/NA 4=Minimal Assistance 1=Total Assistance 5=Supervision or Setup 2=Maximal Assistance 6=Modified [place] 3=Moderate Assistance 7=Complete IndependenceSCALE: Activities may be completed with or without assistive devices. 6-Qoxshsbqpw-kzwbxua completes the activity by him/herself with no assistance from a helper. 5-Set-up or Clean-up Assistance-helper sets up or cleans up; patient completes activity. [place] assists only prior to or following the activity. 4-Supervision or Touching Assistance-helper provides verbal cues and/or touching/steadying and/or contact guard assistance as patient completes activity. Assistance may be provided throughout the activity or intermittently. 3-Partial/Moderate Assistance-helper does LESS THAN HALF the effort. [place] lifts, holds or supports trunk or limbs, but provides less than half the effort. 2-Substantial/Maximal Assistance-helper does MORE THAN HALF the effort. [place] lifts or holds trunk or limbs and provides more than half the effort. 3-Yiccpdtfy-ctvzvv does ALL the effort. Patient does none of the effort to complete the activity. Or, the assistance of 2 or more helpers is required for the patient to complete the activity. If activity was not attempted, code reason: 7-Patient Refused. 9-Not Applicable-not attempted and the patient did not perform the activity before the current illness, exacerbation or injury. 10-Not Attempted due to Environmental Limitations-(lack of equipment, weather restraints, etc.). 88-Not Attempted due to Medical Conditions or Safety Concerns. Oral Hygiene (QC): 6 (pt completed task seated at sink.) Upper Body Dressing (QC): 5 (set up assist) Lower Body Dressing (QC): 4 (Pt doffed underwear, donned underwear and pants with SBA during stand at FWW. She used the reimbursement auditor for task as needed) On/Off Footwear: 3 (Pt doffed socks with reimbursement auditor, OT donned TEDhose, then pt able to don socks with sock aide. Pt denied attempting shoes on this date.) Other Treatment Pt seated in recliner, agreed to OT tx. Pt requested to wash hair with shower cap. OT set up shower cap for pt, then pt able to wash her hair and dry it. Pt then washed up under abdominal fold and under breasts. Pt then donned LE clothing at recliner. Pt ambulated to bathroom using FWW with SBA where she sat at sink and completed oral hygiene and shaving independently. Pt returned to the [facility] gown, donning lime puller shirt with set up. Post OT session, pt seated upright in recliner, call light in reach and all needs met. Education OT Patient Education: Correct positioning, Energy conservation, Modified ADL techniques, Progress toward Goal/Update tx plan, Purpose of tx/functional activities, Transfer techniques, Use of adapted equipment Teaching Recipient: Patient Teaching Methods: Discussion Response to Teaching: Verbalize Understanding OT Short Term Goals Short Term Goals Upper body dressin Lower body dressin Putting on/taking off footwear: 5 OT Senior Care Goals Senior Care Goals Time Frame: March 27, 2020 Eating (QC): 6 Oral Hygiene (QC): 6 Toileting Hygiene (QC): 6 Shower/Bathe Self (QC): 6 Upper Body Dressing (QC): 6 Lower Body Dressing (QC): 6 On/Off Footwear (QC): 6 Additional Goals: 1-Demonstrate ADL Tasks, 2-Verbalize Understanding, 3- ImproveStrength/[place] 1=Demonstrate adherence to instructed precautions during ADL tasks. 2=Patient will verbalize/demonstrate understanding of assistive devices/modifications for ADL. 3=Patient will improve strength/tolerance for activity to enable patient to perform ADL's. OT Education/Plan Problem List/Assessment Assessment: Decreased Activ Tolerance, Decreased UE Strength, Impaired I ADL's, Impaired Self-Care Skills Discharge Recommendations Plan/Recommendations: Continue POC Treatment Plan/Plan of Care Patient would benefit from OT for education, treatment and training to promote independence in ADL's, mobility, safety and/or upper extremity function for ADL's. Plan of Care: ADL Retraining, Concurrent Therapy, Functional Mobility, Group Exercise/Act as Ind, UE Funct Exercise/Act Treatment Duration: March 27, 2020 Frequency: At least 5 of 7 days/Wk (IRF) Estimated Hrs Per Day: 1.5 hours per day Agreement: Yes Rehab Potential: Fair Time/GCodes Start Time: 08:00 Stop Time: 09:15 Total Time Billed (hr/min): 75 Billed Treatment Time 1, ADL 5 SHAVON BARTLETT OT Mar 20, 2020 09:01
[2020-03-20 09:13] VITALS: BP 125/78
[2020-03-20] MEDS: PANTOPRAZOLE 40 MG (PROTONIX) TAB PO SCH (09:24)
[2020-03-20] MEDS: meTOprolol TARTRATE 50 MG (LOPRESSOR) TAB PO SCH ×2 (09:24→21:10)
[2020-03-20] MEDS: IRON SUCROSE 200 MG/10 ML (VENOFER) VIAL IV SCH (09:24)
--- NOTE | 2020-03-20 11:05 | PM&R Progress Note ---
Subjective HPI/CC On Admission Date Seen by Provider: Mar 20, 2020 Time Seen by Provider: 11:15 Subjective/Events-last exam Patient doing better each day and especially since blood given 3 days ago of 2 units Psych evaluation completed and seems to have helped with just talk therapy and no med recommended and she feels really good about that Abx completed and no fever recurrence Pain managed well Poor nutrition with albumin 2.0 is causing the third spacing also, dietary managing and IV Lasix completed Venofer infusion tolerated well and really giving her a boost Magic mouthwash really helping her Iliostomy working well for the patient Checked meds and labs Conferred with RN Reviewed therapy notes Review of Systems General: Fatigue Cardiovascular: Edema Gastrointestinal: Nausea, Abdominal Pain Objective Exam Vital Signs Vital Signs Date Time Temp Pulse Resp B/P (MAP) Pulse Ox O2 Delivery O2 Flow Rate FiO2 03/20/20 09:13 36.1 94 98 03/20/20 09:10 Room Air 03/20/20 06:00 22 125/78 (94) 03/17/20 10:05 21 Capillary Refill : Less Than 3 Seconds General Appearance: No Apparent Distress, Anxious, Chronically ill HEENT: PERRL/EOMI, Moist Mucous Membranes Neck: Full Range of Motion, Non Tender, Supple Respiratory: Chest Non Tender, Lungs Clear, No Accessory Muscle Use, No Respiratory Distress, Decreased Breath Sounds Cardiovascular: Regular Rate, Rhythm, No Murmur Gastrointestinal: Normal Bowel Sounds, No Organomegaly, No Pulsatile Mass, Soft, Tenderness Back: Normal Inspection, No CVA Tenderness, No Vertebral Tenderness Extremity: Pedal Edema (2+ legs) Neurologic/Psychiatric: Motor Weakness (generalized all extremties) Skin: Normal Color Lymphatic: No Adenopathy Results/Procedures Lab Laboratory Tests 03/20/20 06:35 Patient resulted labs reviewed. FIM Transfers Therapy Code Descriptions/Definitions Functional [place] Measure: 0=Not Assessed/NA 4=Minimal Assistance 1=Total Assistance 5=Supervision or Setup 2=Maximal Assistance 6=Modified [place] 3=Moderate Assistance 7=Complete IndependenceSCALE: Activities may be completed with or without assistive devices. 3-Rvvrmcugvz-bwpalna completes the activity by him/herself with no assistance from a helper. 5-Set-up or Clean-up Assistance-helper sets up or cleans up; patient completes activity. [place] assists only prior to or following the activity. 4-Supervision or Touching Assistance-helper provides verbal cues and/or touching/steadying and/or contact guard assistance as patient completes activity. Assistance may be provided throughout the activity or intermittently. 3-Partial/Moderate Assistance-helper does LESS THAN HALF the effort. [place] lifts, holds or supports trunk or limbs, but provides less than half the effort. 2-Substantial/Maximal Assistance-helper does MORE THAN HALF the effort. [place] lifts or holds trunk or limbs and provides more than half the effort. 6-Bijnmokir-xoivge does ALL the effort. Patient does none of the effort to complete the activity. Or, the assistance of 2 or more helpers is required for the patient to complete the activity. If activity was not attempted, code reason: 7-Patient Refused. 9-Not Applicable-not attempted and the patient did not perform the activity before the current illness, exacerbation or injury. 10-Not Attempted due to Environmental Limitations-(lack of equipment, weather restraints, etc.). 88-Not Attempted due to Medical Conditions or Safety Concerns. Roll Left to Right (QC): 5 Sit to Lying (QC): 6 Sit to Stand (QC): 6 Chair/Fkf-ig-Wkxpr Xfer(QC): 6 Car Transfer (QC): 3 Gait Training Does the Patient Walk?: Yes Walk 10 feet (QC): 5 Walk 50 ft with 2 Turns(QC): 5 Walk 150 ft (QC): 5 Walking 10ft/uneven surface-QC: 4 Gait Persons Needed: 1 Gait Assistive Device: FWW Wheelchair Training Does the Pt Use a Wheelchair?: No Wheel 50 ft with 2 turns (QC): 9 Wheel 150 ft (QC): 9 Stair Training Stair Training: Handrails/: uses walker #of Steps: 2 1 Step (curb) (QC): 88 4 Steps (QC): 88 12 Steps (QC): 88 Stairs: Pattern: Step to Balance Picking up an Object (QC): 88 ADL-Treatment Eating (QC): 6 Oral Hygiene (QC): 6 (pt completed task seated at sink.) Shower/Bathe Self (QC): 4 (sponge bath. Pt able to wash all parts, SBA in stand at FWW) Upper Body Dressing (QC): 5 (set up assist) Lower Body Dressing (QC): 4 (Pt doffed underwear, donned underwear and pants with SBA during stand at FWW. She used the sanitary engineer for task as needed) On/Off Footwear (QC): 3 (Pt doffed socks with sanitary engineer, OT donned TEDhose, then pt able to don socks with sock aide. Pt denied attempting shoes on this date.) Toileting Hygiene (QC): 4 (SBA in stance per pt report and per clinical ju dgment ) Assessment/Plan Assessment and Plan Assess & Plan/Chief Complaint Assessment: Debility s/p critical illness and VDRF 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 Anasarca Hirsutism Poor albumin level improving with good nutrition Sore mouth added Nystatin and Magic mouthwash resolving s/p fever Zosyn added by Dr Taveras empirically now DC Ascites s/p paracentesis Anemia s/p transfusions 2 units 03/17/20 Plan: Mouth treatment is improving status IRF protocol Lab monitored Check labs periodically Wound care to iliostomy site Paracentesis completed Abx completed Fever resolved (1) S/P colectomy (2) Ileostomy in place (3) Hirsutism (4) Tachycardia (5) Anasarca (6) Anemia (7) Debility (8) Sigmoid volvulus (9) Leukocytosis (10) Acute kidney injury (11) Hyponatremia (12) Coronary artery disease (13) Abdominal pain Status: Acute (14) Elevated troponin (15) S/P cardiac cath SESAR BEEBE DO Mar 20, 2020 11:04
--- NOTE | 2020-03-20 11:23 | Physical Therapy Daily Note ---
PT Daily Note-Current Subjective Pt up in chair, agreeable to participate after nursing addressed leaking from abdomen. Denied pain. Mental Status Patient Orientation: Person, Place, Time, Situation Attachments: Colostomy/Ileostomy Transfers SCALE: Activities may be completed with or without assistive devices. 7-Uczrdviabo-twbhlkc completes the activity by him/herself with no assistance from a helper. 5-Set-up or Clean-up Assistance-helper sets up or cleans up; patient completes activity. [place] assists only prior to or following the activity. 4-Supervision or Touching Assistance-helper provides verbal cues and/or touching/steadying and/or contact guard assistance as patient completes activity. Assistance may be provided throughout the activity or intermittently. 3-Partial/Moderate Assistance-helper does LESS THAN HALF the effort. [place] lifts, holds or supports trunk or limbs, but provides less than half the effort. 2-Substantial/Maximal Assistance-helper does MORE THAN HALF the effort. [place] lifts or holds trunk or limbs and provides more than half the effort. 2-Laqwyorov-axmzyt does ALL the effort. Patient does none of the effort to complete the activity. Or, the assistance of 2 or more helpers is required for the patient to complete the activity. If activity was not attempted, code reason: 7-Patient Refused. 9-Not Applicable-not attempted and the patient did not perform the activity before the current illness, exacerbation or injury. 10-Not Attempted due to Environmental Limitations-(lack of equipment, weather restraints, etc.). 88-Not Attempted due to Medical Conditions or Safety Concerns. Sit to Stand (QC): 5 Multiple sit<->Stand with SBA for dressing change, shorts donning/doffing. Pt able to step into/out of brief in standing with FWW with SBA. Weight Bearing Right Lower Extremity: Right Full Weight Bearing Left Lower Extremity: Left Full Weight Bearing Gait Training Does the Patient Walk?: Yes Distance: 150 Walk 10 feet (QC): 5 Walk 50 ft with 2 Turns(QC): 5 Walk 150 ft (QC): 5 Gait Persons Needed: 1 Gait Assistive Device: FWW Pt ambulates with slow, steady gait with FWW. Wheelchair Training Does the Pt Use a Wheelchair?: No Exercises Standing: Heel/toe raises, 3 way Ex=Flex, Abd, Ext, Marching, Mini squats Standing Reps: 10 NuStep Minutes: 10 NuStep Workload: 4 Treatments Gait with FWW, transfers. NuStep and LE exercises for functional strengthening, functional activity tolerance. Returned to room, up in chair with all needs met. Assessment Current Status: Good Progress Pt tolerated well. Slow but safe with functional mobility this AM. PT Short Term Goals Short Term Goals Time Frame: Mar 20, 2020 Roll Left & Right: 3 Sit to lyin Lying to sitting on side of be: 3 Sit to stand: 4 Chair/klb-we-rtppi transfer: 4 Walk 10 feet: 4 Walk 50 feet with two turns: 4 Walk 150 feet: 4 PT Lead Manufacturing Engineering Tech Goals Lead Manufacturing Engineering Tech Goals PT Lead Manufacturing Engineering Tech Goals Time Frame: April 03, 2020 Roll Left & Right (QC): 6 Sit to Lying (QC): 6 Lying-Sitting on Side/Bed(QC): 6 Sit to Stand (QC): 6 Chair/Bkp-zp-Eoivx Xfer(QC): 6 Toilet Transfer (QC): 6 Car Transfer (QC): 6 Does the Patient Walk: Yes Walk 10 feet (QC): 6 Walk 50ft with 2 Turns (QC): 6 Walk 150 ft (QC): 6 Walking 10ft on Uneven Surface: 6 1 Step (curb) (QC): 4 4 Steps (QC): 4 12 Steps (QC): 88 Picking up an Object (QC): 88 Wheel 50 feet with 2 turns (QC: 88 Wheel 150 feet: 88 PT Plan Problem List Problem List: Activity Tolerance, Functional Strength, Safety, Balance, Gait, Transfer, Bed Mobility Treatment/Plan Treatment Plan: Continue Plan of Care Treatment Plan: Bed Mobility, Education, Functional Activity Fern, Functional Strength, Group Therapy, Gait, Safety, Therapeutic Exercise, Transfers Treatment Duration: April 03, 2020 Frequency: At least 5 of 7 days/Wk (IRF) Estimated Hrs Per Day: 1.5 hours per day Patient and/or Family Agrees t: Yes Time/GCodes Time In: 1005 Time Out: 1105 Total Billed Treatment Time: 60 Total Billed Treatment 1, FA x 30', EX x 30' JUAN ALBERTO DICKINSON DPRyan Mar 20, 2020 11:23
--- NOTE | 2020-03-20 11:32 | NUR ---
"RD ASSESSMENT PMHx: hypercholesterolemia; HTN; NE PT INTERACTION: Pt was awake and pleasant during nutrition follow-up. Pt states she has been eating okay since last assessment, and tolerating her nutrition supplementation. Note avg PO intake 52% x4d, per chart review. Pt states no issues with n/v/c/d since last assessment. Note pt stool output avg of 3030ml x4d, and pt currently on bowel regimen of Colace BID; Senna BID; and Miralax BID, per chart review. ABNORMAL NUTRITION-RELATED LAB VALUES LOW: Ca 7.4 HIGH: Cl 112 Est. kcal needs: 0370-5810 kcal | 20-25 kcal/kg Est. Pro needs: 76-92 g Pro | 1.0-1.2 g Pro/kg PES STATEMENT: Inadequate oral intake (NI-2.1) related to loss of appetite as evidenced by pt interview | avg PO intake 52% x4d INTERVENTION: Continue with current diet order of DYS2 Mechanically Altered diet. Continue with current supplementation order of Ensure Enlive (vary) with meals TID, for increased kcal intake. Provides 350 kcal and 13 g Pro per serving. Encouraged pt to eat when able. Will continue to follow and reassess as pt needs, intake, and status change. MONITOR/EVALUATE: PO Intake; Plan of Care; Hydration Status; Weight Status; Lab Values Camron Rogers, MS, RD, LD"
--- NOTE | 2020-03-20 13:54 | Occupational Ther Daily Note ---
OT Current Status-Daily Note Subjective Pt seated in recliner, stating she has been having issues with her ostomy today requiring it to be changed multiple times. She states she is about ready to give up and go to bed for the day. Pt agreed to OT session with focus on ADLs. She did not verbalize any pain. Mental Status/Objective Patient Orientation: Normal For Age Attachments: Colostomy/Ileostomy ADL-Treatment Therapy Code Descriptions/Definitions Functional Nitro Measure: 0=Not Assessed/NA 4=Minimal Assistance 1=Total Assistance 5=Supervision or Setup 2=Maximal Assistance 6=Modified Nitro 3=Moderate Assistance 7=Complete IndependenceSCALE: Activities may be completed with or without assistive devices. 9-Mpffrpdbmk-iqvwklo completes the activity by him/herself with no assistance from a helper. 5-Set-up or Clean-up Assistance-helper sets up or cleans up; patient completes activity. [place] assists only prior to or following the activity. 4-Supervision or Touching Assistance-helper provides verbal cues and/or touching/steadying and/or contact guard assistance as patient completes activity. Assistance may be provided throughout the activity or intermittently. 3-Partial/Moderate Assistance-helper does LESS THAN HALF the effort. [place] lifts, holds or supports trunk or limbs, but provides less than half the effort. 2-Substantial/Maximal Assistance-helper does MORE THAN HALF the effort. [place] lifts or holds trunk or limbs and provides more than half the effort. 9-Rkohtcadm-itlvdw does ALL the effort. Patient does none of the effort to complete the activity. Or, the assistance of 2 or more helpers is required for the patient to complete the activity. If activity was not attempted, code reason: 7-Patient Refused. 9-Not Applicable-not attempted and the patient did not perform the activity bef ore the current illness, exacerbation or injury. 10-Not Attempted due to Environmental Limitations-(lack of equipment, weather r estraints, etc.). 88-Not Attempted due to Medical Conditions or Safety Concerns. Lower Body Dressing (QC): 4 (pt donned pants at recliner, SBA in stand at FWW) Toileting Hygiene (QC): 4 (SBA pt managed clothing and hygiene) Toilet Transfer (QC): 4 (SBA on/off BSC over toilet.) Other Treatment Pt seated in recliner, ambulated to the restroom using FWW and SBA. Pt completed toileting, then returned to the recliner. Pt donned pants. Post OT session, pt seated in recliner, call light in reach and all needs met. Education OT Patient Education: Correct positioning, Energy conservation, Modified ADL techniques, Progress toward Goal/Update tx plan, Purpose of tx/functional activities Teaching Recipient: Patient Teaching Methods: Discussion Response to Teaching: Verbalize Understanding OT Short Term Goals Short Term Goals Upper body dressin Lower body dressin Putting on/taking off footwear: 5 OT Longterm Goals [employer] Goals Time Frame: March 27, 2020 Eating (QC): 6 Oral Hygiene (QC): 6 Toileting Hygiene (QC): 6 Shower/Bathe Self (QC): 6 Upper Body Dressing (QC): 6 Lower Body Dressing (QC): 6 On/Off Footwear (QC): 6 Additional Goals: 1-Demonstrate ADL Tasks, 2-Verbalize Understanding, 3- ImproveStrength/[place] 1=Demonstrate adherence to instructed precautions during ADL tasks. 2=Patient will verbalize/demonstrate understanding of assistive devices/modifications for ADL. 3=Patient will improve strength/tolerance for activity to enable patient to perform ADL's. OT Education/Plan Problem List/Assessment Assessment: Decreased Activ Tolerance, Decreased UE Strength, Impaired I ADL's, Impaired Self-Care Skills Discharge Recommendations Plan/Recommendations: Continue POC Treatment Plan/Plan of Care Patient would benefit from OT for education, treatment and training to promote independence in ADL's, mobility, safety and/or upper extremity function for ADL's. Plan of Care: ADL Retraining, Concurrent Therapy, Functional Mobility, Group Exercise/Act as Ind, UE Funct Exercise/Act Treatment Duration: March 27, 2020 Frequency: At least 5 of 7 days/Wk (IRF) Estimated Hrs Per Day: 1.5 hours per day Agreement: Yes Rehab Potential: Fair Time/GCodes Start Time: 13:30 Stop Time: 13:45 Total Time Billed (hr/min): 15 Billed Treatment Time 1, ADL SHAVON BARTLETT OT Mar 20, 2020 13:54
--- NOTE | 2020-03-20 14:00 | NUR ---
CM/SS CONCURRENT DOCUMENTATION Pastoral Care updated continuity writer they left DPOA HC documentation in patient room for her review and will complete with her later today. Visited with patient to update about order placed with [employer] for Consumer Assistance Program and that they likely would be calling her personal cell to converse directly with her about financial information. Patient appreciative. Continues to appear improved each day as far as alertness and engagement.
--- NOTE | 2020-03-20 14:12 | Physical Therapy Daily Note ---
PT Daily Note-Current Subjective Pt up in chair, agreeable. Pt reports "that's where I get stressed" re: repeated leaking of bag. Mental Status Patient Orientation: Person, Place, Time, Situation Attachments: Colostomy/Ileostomy Transfers SCALE: Activities may be completed with or without assistive devices. 0-Mladtcajwv-edvpagv completes the activity by him/herself with no assistance fr om a helper. 5-Set-up or Clean-up Assistance-helper sets up or cleans up; patient completes activity. [place] assists only prior to or following the activity. 4-Supervision or Touching Assistance-helper provides verbal cues and/or touching/steadying and/or contact guard assistance as patient completes activity. Assistance may be provided throughout the activity or intermittently. 3-Partial/Moderate Assistance-helper does LESS THAN HALF the effort. [place] lifts, holds or supports trunk or limbs, but provides less than half the effort. 2-Substantial/Maximal Assistance-helper does MORE THAN HALF the effort. [place] lifts or holds trunk or limbs and provides more than half the effort. 2-Udiojjbyn-tjzifr does ALL the effort. Patient does none of the effort to complete the activity. Or, the assistance of 2 or more helpers is required for the patient to complete the activity. If activity was not attempted, code reason: 7-Patient Refused. 9-Not Applicable-not attempted and the patient did not perform the activity before the current illness, exacerbation or injury. 10-Not Attempted due to Environmental Limitations-(lack of equipment, weather restraints, etc.). 88-Not Attempted due to Medical Conditions or Safety Concerns. Sit to Stand (QC): 5 Weight Bearing Right Lower Extremity: Right Full Weight Bearing Left Lower Extremity: Left Full Weight Bearing Gait Training Does the Patient Walk?: Yes Distance: 250 Walk 10 feet (QC): 5 Walk 50 ft with 2 Turns(QC): 5 Walk 150 ft (QC): 5 Gait Persons Needed: 1 Gait Assistive Device: FWW Pt ambulates with slow gait speed, SBA with FWW. Fatigued at end of 250' with seated recovery break but safe. Ambulated another 100' to room. Wheelchair Training Does the Pt Use a Wheelchair?: No Exercises Seated Therapy Exercises: Ankle pumps, Long arc quads Seated Reps: 20 Treatments Gait with FWW, seated LE exercises. Up in chair, needs met, post treatment. Assessment Current Status: Good Progress Pt tolerated well. Fatigued but safe with functional mobility. PT Short Term Goals Short Term Goals Time Frame: Mar 20, 2020 Roll Left & Right: 3 Sit to lyin Lying to sitting on side of be: 3 Sit to stand: 4 Chair/dsh-ex-qtykg transfer: 4 Walk 10 feet: 4 Walk 50 feet with two turns: 4 Walk 150 feet: 4 PT Profile Saw Setup Operator Goals Fpc Goals PT Profile Saw Setup Operator Goals Time Frame: April 03, 2020 Roll Left & Right (QC): 6 Sit to Lying (QC): 6 Lying-Sitting on Side/Bed(QC): 6 Sit to Stand (QC): 6 Chair/Brz-qt-Stdoj Xfer(QC): 6 Toilet Transfer (QC): 6 Car Transfer (QC): 6 Does the Patient Walk: Yes Walk 10 feet (QC): 6 Walk 50ft with 2 Turns (QC): 6 Walk 150 ft (QC): 6 Walking 10ft on Uneven Surface: 6 1 Step (curb) (QC): 4 4 Steps (QC): 4 12 Steps (QC): 88 Picking up an Object (QC): 88 Wheel 50 feet with 2 turns (QC: 88 Wheel 150 feet: 88 PT Plan Problem List Problem List: Activity Tolerance, Functional Strength, Safety, Balance, Gait, Transfer, Bed Mobility Treatment/Plan Treatment Plan: Continue Plan of Care Treatment Plan: Bed Mobility, Education, Functional Activity Fern, Functional Strength, Group Therapy, Gait, Safety, Therapeutic Exercise, Transfers Treatment Duration: April 03, 2020 Frequency: At least 5 of 7 days/Wk (IRF) Estimated Hrs Per Day: 1.5 hours per day Patient and/or Family Agrees t: Yes Time/GCodes Time In: 1345 Time Out: 1415 Total Billed Treatment Time: 30 Total Billed Treatment 1, FA x 20', Ex x 10' JUAN ALBERTO DICKINSON DPRyan Mar 20, 2020 14:12
--- NOTE | 2020-03-20 14:37 | Cardiology Progress Note ---
Cardiology SOAP Progress Note Subjective: No cardiac complaints. Objective: I&O/Vital Signs 03/20/20 03/20/20 03/20/20 03/20/20 06:00 08:15 09:10 09:13 Temp 36.1 36.1 Pulse 94 94 Resp 22 B/P (MAP) 125/78 (94) Pulse Ox 98 98 98 O2 Delivery Room Air Room Air Room Air 03/20/20 00:00 Intake Total 1417 ml Output Total 2220 ml Balance -803 ml Constitutional: AAO x 3 Respiratory: chest is bilaterally symmetric, lungs clear to auscultation Cardiovascular: regular rate-rhythm, S1 and S2, systolic murmur Gastrointestional: other (recent abdominal surgery, abdominal exam was not done.) Extremities: pedal edema Neurologic/Psychiatric: no motor/sensory deficits, alert, normal mood/affect, oriented x 3 Skin: normal color Results/Procedures: Labs Laboratory Tests 03/20/20 06:35: White Blood Count 9.4, Red Blood Count 3.54L, Hemoglobin 9.6L, Hematocrit 30L, Mean Corpuscular Volume 84, Mean Corpuscular Hemoglobin 27, Mean Corpuscular Hemoglobin Concent 32, Red Cell Distribution Width 22.4H, Platelet Count 381, Mean Platelet Volume 8.2, Neutrophils (%) (Auto) 79H, Lymphocytes (%) (Auto) 9L, Monocytes (%) (Auto) 10, Eosinophils (%) (Auto) 2, Basophils (%) (Auto) 0, Neutrophils # (Auto) 7.5, Lymphocytes # (Auto) 0.8L, Monocytes # (Auto) 0.9, Eosinophils # (Auto) 0.2, Basophils # (Auto) 0.0, Sodium Level 136, Potassium Level 3.8, Chloride Level 112H, Carbon Dioxide Level 15L, Anion Gap 9, Blood Urea Nitrogen 9, Creatinine 0.60, Estimat Glomerular Filtration Rate > 60, BUN/Creatinine Ratio 15, Glucose Level 91, Calcium Level 7.4L, Phosphorus Level 3.1, Magnesium Level 1.9 Microbiology 03/16/20 Gram Stain - Final, Complete 03/16/20 Anaerobic Culture - Final, Complete No anaerobes isolated 03/16/20 Surgical Culture - Final, Complete No growth 03/14/20 Blood Culture - Final, Complete No growth A/P: Assessment/Dx: Currently in inpatient rehabilitation. Sinus tach and leucocytosis, consider systemic infection (managed by [facility] and Surg S[facility]). Okay to DC telemetry. S/p colectomy for intestinal obstruction Marked post-op anemia, managed by the Surgical and Hospitalist Services - re ceived 2 units of 03-09-2020 Hypokalemia, corrected Abnormal ECG, but no evidence of ac MA CAD, h/o cor stenting at [facility] in Oct 2019. Last card cath on 03/05/20: patent stents in the mid left circumflex and the mid right coronary arteries. There is moderate diffuse disease of all coronary arteries. There is moderately severe diffuse disease of the distal left anterior descending. A small caliber obtuse marginal has 70% to 80% ostial stenosis. Normal left ventricular end- diastolic pressure. Echo of 03/05/20: LVEF 60-65%, mild to mod TR, RVSP 35-40 mmHg, mild dilatation of LA Post-op hypotension and EMIGDIO 2, resolved Plan: * Beta nadeem * Continue DAPT because of recent coronary stenting. On aspirin and Plavix. * Monitor labs Thank you for your consultation. Please call me if you have any questions. Odessa Allen MD, FACP, FACC, FSCAI, FHRS, CCDS Interventional Cardiology Cardiac Electrophysiology Vascular Medicine and Endovascular Interventions Kusum ALLEN MD Mar 20, 2020 14:37
--- NOTE | 2020-03-20 15:05 | NUR ---
Pastoral care visit, completed Advance Directive, pt shared how much better she is feeling in mood and spirit.
[2020-03-20 18:00] VITALS: BP 131/87
[2020-03-20 21:06] VITALS: BP 120/76
[2020-03-21 05:22] VITALS: BP 117/74
[2020-03-21] MEDS: NYSTATIN ORAL SUSP 5 ML UDC PO SCH ×3 (06:21→17:14)
[2020-03-21] MEDS: NYSTATIN PO SCH ×16 (06:22→20:46)
[2020-03-21] MEDS: CATHETER FLUSH 10 ML SYR IV SCH ×3 (06:22→20:45)
[2020-03-21] MEDS: [UNRECOGNIZED DRUG - OTHER] PO SCH ×16 (06:22→20:46)
[2020-03-21] MEDS: PREDNISOLONE PO SCH ×16 (06:22→20:46)
[2020-03-21] MEDS: ZINC OXIDE 16% OINT (BUTT PASTE) 113 GM TUBE TOP PRN (06:31)
[2020-03-21 07:07] LABS: BASOPHILS % (AUTO) 0 % (0-10); EOSINOPHILS # (AUTO) 0.1 10^3/uL (0.0-0.3); EOSINOPHILS % (AUTO) 1 % (0-10); HEMATOCRIT 31 % (35-52); HEMOGLOBIN 9.8 G/DL (11.5-16.0); LYMPHOCYTES # (AUTO) 0.8 X 10^3 (1.0-4.0); LYMPHOCYTES % (AUTO) 8 % (12-44); MEAN CORPUSCULAR HEMOGLOBIN 27 PG (25-34); MEAN CORPUSCULAR HGB CONC 32 G/DL (32-36); MEAN CORPUSCULAR VOLUME 85 FL (80-99); MEAN PLATELET VOLUME 8.9 FL (7.4-10.4); MONOCYTES # (AUTO) 0.9 X 10^3 (0.0-1.0); MONOCYTES % (AUTO) 9 % (0-12); NEUTROPHILS # (AUTO) 8.2 X 10^3 (1.8-7.8); NEUTROPHILS % (AUTO) 82 % (42-75); PLATELET COUNT 359 10^3/uL (130-400); RED CELL DISTRIBUTION WIDTH 22.4 % (10.0-14.5)
[2020-03-21 07:17] LABS: CHLORIDE 114 MMOL/L (98-107); SODIUM 138 MMOL/L (135-145)
[2020-03-21 07:18] LABS: CALCIUM 7.7 MG/DL (8.5-10.1)
[2020-03-21 07:19] LABS: GLUCOSE 94 MG/DL (70-105)
[2020-03-21 07:20] LABS: CARBON DIOXIDE 15 MMOL/L (21-32)
[2020-03-21 07:22] LABS: PHOSPHORUS 3.1 MG/DL (2.3-4.7)
[2020-03-21 07:23] LABS: GFR ESTIMATED > 60
[2020-03-21 07:24] LABS: BUN/CREATININE RATIO 15
[2020-03-21 07:25] LABS: MAGNESIUM 1.8 MG/DL (1.6-2.4)
[2020-03-21 08:44] VITALS: BP 143/88
[2020-03-21] MEDS: PANTOPRAZOLE 40 MG (PROTONIX) TAB PO SCH (08:45)
[2020-03-21] MEDS: meTOprolol TARTRATE 50 MG (LOPRESSOR) TAB PO SCH ×2 (08:45→20:45)
[2020-03-21] MEDS: DOCUSATE SODIUM 100 MG (COLACE) CAP PO SCH ×2 (08:45→20:45)
[2020-03-21] MEDS: MICONAZOLE 2% POWDER (DESENEX AF) 90 GM TOP SCH ×2 (08:46→20:44)
[2020-03-21] MEDS: NYSTATIN CREAM (MYCOSTATIN) 30 GM TUBE TP SCH ×2 (08:46→20:45)
[2020-03-21] MEDS: polyethylene glycoL POWDER 17 GM (MIRALAX) PACK PO SCH ×2 (09:26→20:46)
[2020-03-21] MEDS: SENNA W/DOCUSATE (SENOKOT S) TABLET PO SCH ×2 (09:27→20:46)
--- NOTE | 2020-03-21 10:05 | Physical Therapy Daily Note ---
PT Daily Note-Current Subjective Pt lying in bed upon arrival; all 4 bed railings up. Pt states she had just laid down in bed, from the recliner. Pt agrees to therapy tx. Pain Numeric Pain Scale: 3 Location: Posterior, Medial Location Body Site: Sacrum Pain Description: Pressure Mental Status Patient Orientation: Person, Place, Time, Situation Attachments: [place] Lock (x2), Colostomy/Ileostomy Transfers SCALE: Activities may be completed with or without assistive devices. 5-Hpwnlxwlyj-izcuqux completes the activity by him/herself with no assistance from a helper. 5-Set-up or Clean-up Assistance-helper sets up or cleans up; patient completes a ctivity. [place] assists only prior to or following the activity. 4-Supervision or Touching Assistance-helper provides verbal cues and/or touching/steadying and/or contact guard assistance as patient completes activity. Assistance may be provided throughout the activity or intermittently. 3-Partial/Moderate Assistance-helper does LESS THAN HALF the effort. [place] lifts, holds or supports trunk or limbs, but provides less than half the effort. 2-Substantial/Maximal Assistance-helper does MORE THAN HALF the effort. [place] lifts or holds trunk or limbs and provides more than half the effort. 5-Yrctknpsx-xfvvtf does ALL the effort. Patient does none of the effort to complete the activity. Or, the assistance of 2 or more helpers is required for the patient to complete the activity. If activity was not attempted, code reason: 7-Patient Refused. 9-Not Applicable-not attempted and the patient did not perform the activity before the current illness, exacerbation or injury. 10-Not Attempted due to Environmental Limitations-(lack of equipment, weather restraints, etc.). 88-Not Attempted due to Medical Conditions or Safety Concerns. Roll Left & Right (QC): 6 Sit to Lying (QC): 3 Lying to Sitting/Side of Bed(Q: 3 Sit to Stand (QC): 4 Pt requires ModA x1 getting BLE's off/on bed. Pt uses BUE's and bed rails to reposition self in bed. Weight Bearing Right Lower Extremity: Right Full Weight Bearing Left Lower Extremity: Left Full Weight Bearing Gait Training Does the Patient Walk?: Yes Gait Persons Needed: 1 Gait Assistive Device: FWW Pt ambulates w/ FWW at [facility] for 120', 100' and 120' w/ 2 seated rest breaks. Treatments Gait, safety, bed mobility. Pt in bed w/ pillow slightly under R hip/lower back/sacrum, to relieve pressure. Pt bed railings up, call light and bedside ta ble w/in reach and all needs met at end of tx. Assessment Current Status: Fair Progress Pt tired and tearful this morning, but participates in therapy. Pt requires 2 seated rest breaks during ambulation, d/t fatigue. PT Short Term Goals Short Term Goals Time Frame: Mar 20, 2020 Roll Left & Right: 3 Sit to lyin Lying to sitting on side of be: 3 Sit to stand: 4 Chair/xvk-dh-vpayw transfer: 4 Walk 10 feet: 4 Walk 50 feet with two turns: 4 Walk 150 feet: 4 PT Typewriter Aligner Goals Typewriter Aligner Goals PT Fdc Goals Time Frame: April 03, 2020 Roll Left & Right (QC): 6 Sit to Lying (QC): 6 Lying-Sitting on Side/Bed(QC): 6 Sit to Stand (QC): 6 Chair/Mnk-xz-Wzkuc Xfer(QC): 6 Toilet Transfer (QC): 6 Car Transfer (QC): 6 Does the Patient Walk: Yes Walk 10 feet (QC): 6 Walk 50ft with 2 Turns (QC): 6 Walk 150 ft (QC): 6 Walking 10ft on Uneven Surface: 6 1 Step (curb) (QC): 4 4 Steps (QC): 4 12 Steps (QC): 88 Picking up an Object (QC): 88 Wheel 50 feet with 2 turns (QC: 88 Wheel 150 feet: 88 PT Plan Problem List Problem List: Activity Tolerance, Functional Strength, Safety, Gait, Transfer, Bed Mobility Treatment/Plan Treatment Plan: Continue Plan of Care Treatment Plan: Bed Mobility, Education, Functional Activity Fern, Functional Strength, Group Therapy, Gait, Safety, Therapeutic Exercise, Transfers Treatment Duration: April 03, 2020 Frequency: At least 5 of 7 days/Wk (IRF) Estimated Hrs Per Day: 1.5 hours per day Patient and/or Family Agrees t: Yes Safety Risks/Education Patient Education: Gait Training, Transfer Techniques, Correct Positioning, Safety Issues Teaching Recipient: Patient Teaching Methods: Discussion Response to Teaching: Verbalize Understanding Time/GCodes Time In: 0930 Time Out: 1000 Total Billed Treatment Time: 30 Total Billed Treatment 1 visit GT x1 (15m), FA x1 (15m) JOSE STOLL KAPOK MACHINE OPERATOR Mar 21, 2020 10:05
--- NOTE | 2020-03-21 12:11 | PM&R Progress Note ---
Subjective HPI/CC On Admission Date Seen by Provider: Mar 21, 2020 Time Seen by Provider: 12:15 Subjective/Events-last exam Patient doing better each day and especially since blood given 4 days ago of 2 units Spirits are up but flat affect is chronic Abx completed and no fever recurrence, incisional wound looks good per surgery Pain managed well Poor nutrition managed with diet Venofer infusion tolerated well and really giving her a boost Magic mouthwash really helping her Iliostomy working well for the patient, I reviewed pics from nurse Checked meds and labs Conferred with RN Reviewed therapy notes Review of Systems General: Fatigue Gastrointestinal: Abdominal Pain Neurological: Weakness Objective Exam Vital Signs Vital Signs Date Time Temp Pulse Resp B/P (MAP) Pulse Ox O2 Delivery O2 Flow Rate FiO2 03/21/20 09:00 Room Air 03/21/20 08:44 98 143/88 (106) 03/21/20 05:22 36.7 16 96 03/17/20 10:05 21 Capillary Refill : Less Than 3 Seconds General Appearance: No Apparent Distress, Anxious, Chronically ill HEENT: PERRL/EOMI, Moist Mucous Membranes Neck: Full Range of Motion, Non Tender, Supple Respiratory: Chest Non Tender, Lungs Clear, No Accessory Muscle Use, No Respiratory Distress, Decreased Breath Sounds Cardiovascular: Regular Rate, Rhythm, No Murmur Gastrointestinal: Normal Bowel Sounds, No Organomegaly, No Pulsatile Mass, Soft, Tenderness Back: Normal Inspection, No CVA Tenderness, No Vertebral Tenderness Extremity: Pedal Edema (2+ legs) Neurologic/Psychiatric: Motor Weakness (generalized all extremties) Skin: Normal Color Lymphatic: No Adenopathy Results/Procedures Lab Laboratory Tests 03/21/20 06:30 Patient resulted labs reviewed. FIM Transfers Therapy Code Descriptions/Definitions Functional [place] Measure: 0=Not Assessed/NA 4=Minimal Assistance 1=Total Assistance 5=Supervision or Setup 2=Maximal Assistance 6=Modified [place] 3=Moderate Assistance 7=Complete IndependenceSCALE: Activities may be completed with or without assistive devices. 9-Hmenqhcgkq-kqijfhx completes the activity by him/herself with no assistance from a helper. 5-Set-up or Clean-up Assistance-helper sets up or cleans up; patient completes activity. [place] assists only prior to or following the activity. 4-Supervision or Touching Assistance-helper provides verbal cues and/or touching/steadying and/or contact guard assistance as patient completes activity. Assistance may be provided throughout the activity or intermittently. 3-Partial/Moderate Assistance-helper does LESS THAN HALF the effort. [place] lifts, holds or supports trunk or limbs, but provides less than half the effort. 2-Substantial/Maximal Assistance-helper does MORE THAN HALF the effort. [place] lifts or holds trunk or limbs and provides more than half the effort. 9-Lfmswbali-hbeqlk does ALL the effort. Patient does none of the effort to complete the activity. Or, the assistance of 2 or more helpers is required for the patient to complete the activity. If activity was not attempted, code reason: 7-Patient Refused. 9-Not Applicable-not attempted and the patient did not perform the activity before the current illness, exacerbation or injury. 10-Not Attempted due to Environmental Limitations-(lack of equipment, weather restraints, etc.). 88-Not Attempted due to Medical Conditions or Safety Concerns. Roll Left to Right (QC): 6 Sit to Lying (QC): 3 Sit to Stand (QC): 4 Chair/Sek-rh-Zjhww Xfer(QC): 6 Car Transfer (QC): 3 Gait Training Does the Patient Walk?: Yes Distance: 250 Walk 10 feet (QC): 5 Walk 50 ft with 2 Turns(QC): 5 Walk 150 ft (QC): 5 Walking 10ft/uneven surface-QC: 4 Gait Persons Needed: 1 Gait Assistive Device: FWW Wheelchair Training Does the Pt Use a Wheelchair?: No Wheel 50 ft with 2 turns (QC): 9 Wheel 150 ft (QC): 9 Stair Training Stair Training: Handrails/: uses walker #of Steps: 2 1 Step (curb) (QC): 88 4 Steps (QC): 88 12 Steps (QC): 88 Stairs: Pattern: Step to Balance Picking up an Object (QC): 88 ADL-Treatment Eating (QC): 6 Oral Hygiene (QC): 6 (pt completed task seated at sink.) Shower/Bathe Self (QC): 4 (sponge bath. Pt able to wash all parts, SBA in stand at FWW) Upper Body Dressing (QC): 5 (set up assist) Lower Body Dressing (QC): 4 (pt donned pants at recliner, SBA in stand at FWW) On/Off Footwear (QC): 3 (Pt doffed socks with clip wrapper, OT donned TEDhose, then pt able to don socks with sock aide. 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 Anasarca Hirsutism Poor albumin level improving with good nutrition Sore mouth added Nystatin and Magic mouthwash resolving s/p fever Zosyn added by Dr Taveras empirically now DC Ascites s/p paracentesis Anemia s/p transfusions 2 units 03/17/20 Situational depression Plan: Mouth treatment is improving status IRF protocol Lab monitored Check labs periodically Wound care to iliostomy site Paracentesis completed Abx completed Fever resolved (1) S/P colectomy (2) Ileostomy in place (3) Hirsutism (4) Tachycardia (5) Anasarca (6) Anemia (7) Debility (8) Sigmoid volvulus (9) Leukocytosis (10) Acute kidney injury (11) Hyponatremia (12) Coronary artery disease (13) Abdominal pain Status: Acute (14) Elevated troponin (15) S/P cardiac cath SESAR BEEBE DO Mar 21, 2020 12:11
--- NOTE | 2020-03-21 12:50 | Cardiology Progress Note ---
Cardiology SOAP Progress Note Subjective: No cardiac complaints. Objective: I&O/Vital Signs 03/21/20 03/21/20 03/21/20 05:22 08:44 09:00 Temp 36.7 Pulse 100 98 Resp 16 B/P (MAP) 117/74 (88) 143/88 (106) Pulse Ox 96 O2 Delivery Room Air Room Air 03/21/20 00:00 Intake Total 590 ml Output Total 985 ml Balance -395 ml Constitutional: AAO x 3 Respiratory: chest is bilaterally symmetric, lungs clear to auscultation Cardiovascular: regular rate-rhythm, S1 and S2, systolic murmur Gastrointestional: soft, audible bowel sounds Extremities: normal range of motion, non-tender, normal inspection, pedal edema Neurologic/Psychiatric: no motor/sensory deficits, alert, normal mood/affect, oriented x 3 Skin: normal color Results/Procedures: Labs Laboratory Tests 03/21/20 06:30: White Blood Count 10.0, Red Blood Count 3.62L, Hemoglobin 9.8L, Hematocrit 31L, Mean Corpuscular Volume 85, Mean Corpuscular Hemoglobin 27, Mean Corpuscular Hemoglobin Concent 32, Red Cell Distribution Width 22.4H, Platelet Count 359, Mean Platelet Volume 8.9, Neutrophils (%) (Auto) 82H, Lymphocytes (%) (Auto) 8L, Monocytes (%) (Auto) 9, Eosinophils (%) (Auto) 1, Basophils (%) (Auto) 0, Neutrophils # (Auto) 8.2H, Lymphocytes # (Auto) 0.8L, Monocytes # (Auto) 0.9, Eosinophils # (Auto) 0.1, Basophils # (Auto) 0.0, Sodium Level 138, Potassium Level 4.0, Chloride Level 114H, Carbon Dioxide Level 15L, Anion Gap 9, Blood Urea Nitrogen 9, Creatinine 0.60, Estimat Glomerular Filtration Rate > 60, BUN/Creatinine Ratio 15, Glucose Level 94, Calcium Level 7.7L, Phosphorus Level 3.1, Magnesium Level 1.8 Microbiology 03/16/20 Gram Stain - Final, Complete 03/16/20 Anaerobic Culture - Final, Complete No anaerobes isolated 03/16/20 Surgical Culture - Final, Complete No growth 03/14/20 Blood Culture - Final, Complete No growth A/P: Assessment/Dx: Currently in inpatient rehabilitation. Sinus tach and leucocytosis, consider systemic infection (managed by [facility]). Resolved. Okay to DC telemetry. S/p colectomy for intestinal obstruction Marked post-op anemia, managed by the Surgical and Hospitalist Services - received 2 units of 03-09-2020 Hypokalemia, corrected Abnormal ECG, but no evidence of ac [place] CAD, h/o cor stenting at [facility] in Oct 2019. Last card cath on 03/05/20: patent stents in the mid left circumflex and the mid right coronary arteries. There is moderate diffuse disease of all coronary arteries. There is moderately severe diffuse disease of the distal left anterior descending. A small caliber obtuse marginal has 70% to 80% ostial stenosis. Normal left ventricular end- diastolic pressure. Echo of 03/05/20: LVEF 60-65%, mild to mod TR, RVSP 35-40 mmHg, mild dilatation of LA Post-op hypotension and EMIGDIO 2, resolved Plan: * Beta nadeem * Continue DAPT because of recent coronary stenting. On aspirin and Plavix. * Monitor labs Thank you for your consultation. Please call me if you have any questions. Odessa Allen MD, FACP, FACC, FSCAI, FHRS, CCDS Interventional Cardiology Cardiac Electrophysiology Vascular Medicine and Endovascular Interventions Kusum ALLEN MD Mar 21, 2020 12:50
--- NOTE | 2020-03-21 14:03 | Progress Note - Surgery ---
Subjective Date Seen by a Provider: Mar 21, 2020 Time Seen by a Provider: 10:48 Subjective/Events-last exam Patient states she is not having any new issues. Tolerating diet. + output from ileostomy. working on not getting to leak. patient pain controlled. Denies n/v fever sweats chills shortness of breath or chest pain. Hgb stable. Objective Exam Vital Signs Date Time Temp Pulse Resp B/P (MAP) Pulse Ox O2 Delivery O2 Flow Rate FiO2 03/21/20 09:00 Room Air 03/21/20 08:44 98 143/88 (106) 03/21/20 05:22 36.7 100 16 117/74 (88) 96 Room Air 03/20/20 21:42 Room Air 03/20/20 21:06 102 120/76 (91) 03/20/20 18:00 36.6 101 18 131/87 (102) 99 Room Air I & O 03/21/20 07:00 Intake Total 890 ml Output Total 4285 ml Balance -3395 ml Capillary Refill : Less Than 3 Seconds General Appearance: No Apparent Distress, Anxious, Chronically ill HEENT: PERRL/EOMI, Moist Mucous Membranes Neck: Full Range of Motion, Non Tender, Supple Respiratory: Chest Non Tender, No Accessory Muscle Use, No Respiratory Distress Cardiovascular: Regular Rate, Rhythm, No Murmur Gastrointestinal: soft, other (incision does not appear infected, skin slightly pulled apart in some places of incision Ileostomy + output ostomy pink) Extremity: Pedal Edema (2+ legs) Neurologic/Psychiatric: Motor Weakness (generalized all extremties) Skin: Normal Color Lymphatic: No Adenopathy Results Lab Laboratory Tests 03/21/20 06:30: White Blood Count 10.0, Red Blood Count 3.62L, Hemoglobin 9.8L, Hematocrit 31L, Mean Corpuscular Volume 85, Mean Corpuscular Hemoglobin 27, Mean Corpuscular Hemoglobin Concent 32, Red Cell Distribution Width 22.4H, Platelet Count 359, Mean Platelet Volume 8.9, Neutrophils (%) (Auto) 82H, Lymphocytes (%) (Auto) 8L, Monocytes (%) (Auto) 9, Eosinophils (%) (Auto) 1, Basophils (%) (Auto) 0, Neutrophils # (Auto) 8.2H, Lymphocytes # (Auto) 0.8L, Monocytes # (Auto) 0.9, Eosinophils # (Auto) 0.1, Basophils # (Auto) 0.0, Sodium Level 138, Potassium Level 4.0, Chloride Level 114H, Carbon Dioxide Level 15L, Anion Gap 9, Blood Urea Nitrogen 9, Creatinine 0.60, Estimat Glomerular Filtration Rate > 60, BUN/Creatinine Ratio 15, Glucose Level 94, Calcium Level 7.7L, Phosphorus Level 3.1, Magnesium Level 1.8 Microbiology 03/16/20 Gram Stain - Final, Complete 03/16/20 Anaerobic Culture - Final, Complete No anaerobes isolated 03/16/20 Surgical Culture - Final, Complete No growth 03/14/20 Blood Culture - Final, Complete No growth Assessment/Plan Assessment/Plan Assessment/Plan Anemia - Hg stable Ascites -turned out to be serosanguinous; probably more sanguinous than serous Weakness - improving S/P Subtotal Colectomy Pt's hemoglobin is stable-follow. Midline incision keep bandage clean and dry changing daily and prn diet as tolerates ostomy care Clinical Quality Measures DVT/VTE Risk/Contraindication: Risk Factor Score Per Nursin RFS Level Per Nursing on Admit: 4+=Very High ARIADNE VALENTIN DO Mar 21, 2020 14:03
[2020-03-21 18:09] VITALS: BP 149/89
[2020-03-21 20:47] VITALS: BP 123/76
[2020-03-22] MEDS: NYSTATIN ORAL SUSP 5 ML UDC PO SCH ×5 (05:11→21:43)
[2020-03-22] MEDS: CATHETER FLUSH 10 ML SYR IV SCH ×3 (05:11→20:39)
[2020-03-22 05:31] VITALS: BP 127/81
[2020-03-22] MEDS: NYSTATIN PO SCH ×16 (06:42→20:39)
[2020-03-22] MEDS: PREDNISOLONE PO SCH ×16 (06:42→20:39)
[2020-03-22] MEDS: [UNRECOGNIZED DRUG - OTHER] PO SCH ×16 (06:42→20:39)
[2020-03-22 06:55] LABS: BASOPHILS % (AUTO) 0 % (0-10); EOSINOPHILS # (AUTO) 0.1 10^3/uL (0.0-0.3); EOSINOPHILS % (AUTO) 1 % (0-10); HEMATOCRIT 31 % (35-52); LYMPHOCYTES # (AUTO) 0.8 X 10^3 (1.0-4.0); LYMPHOCYTES % (AUTO) 9 % (12-44); MEAN CORPUSCULAR HEMOGLOBIN 28 PG (25-34); MEAN CORPUSCULAR HGB CONC 33 G/DL (32-36); MEAN CORPUSCULAR VOLUME 84 FL (80-99); MEAN PLATELET VOLUME 8.4 FL (7.4-10.4); MONOCYTES # (AUTO) 0.9 X 10^3 (0.0-1.0); MONOCYTES % (AUTO) 10 % (0-12); NEUTROPHILS % (AUTO) 80 % (42-75); PLATELET COUNT 353 10^3/uL (130-400); WHITE BLOOD COUNT 8.8 10^3/uL (4.3-11.0)
[2020-03-22 07:16] LABS: BUN/CREATININE RATIO 11; CALCIUM 7.8 MG/DL (8.5-10.1); CARBON DIOXIDE 15 MMOL/L (21-32); CHLORIDE 112 MMOL/L (98-107); CREATININE SERUM 0.61 MG/DL (0.60-1.30); GFR ESTIMATED > 60; GLUCOSE 102 MG/DL (70-105); POTASSIUM 3.8 MMOL/L (3.6-5.0); SODIUM 135 MMOL/L (135-145)
[2020-03-22] MEDS: NYSTATIN CREAM (MYCOSTATIN) 30 GM TUBE TP SCH ×2 (09:00→20:40)
[2020-03-22] MEDS: polyethylene glycoL POWDER 17 GM (MIRALAX) PACK PO SCH ×2 (09:00→20:40)
[2020-03-22] MEDS: SENNA W/DOCUSATE (SENOKOT S) TABLET PO SCH ×2 (09:00→20:40)
[2020-03-22] MEDS: ACETAMINOPHEN 325 MG TABLET PO PRN (09:39)
[2020-03-22] MEDS: meTOprolol TARTRATE 50 MG (LOPRESSOR) TAB PO SCH ×2 (09:39→20:40)
[2020-03-22] MEDS: DOCUSATE SODIUM 100 MG (COLACE) CAP PO SCH ×2 (09:40→20:39)
[2020-03-22] MEDS: PANTOPRAZOLE 40 MG (PROTONIX) TAB PO SCH (09:40)
[2020-03-22] MEDS: IRON SUCROSE 200 MG/10 ML (VENOFER) VIAL IV SCH (09:40)
[2020-03-22] MEDS: MICONAZOLE 2% POWDER (DESENEX AF) 90 GM TOP SCH ×2 (10:00→20:39)
--- NOTE | 2020-03-22 10:40 | Cardiology Progress Note ---
Cardiology SOAP Progress Note Subjective: No cardiac complaints. Objective: I&O/Vital Signs 03/22/20 03/22/20 05:31 09:00 Temp 36.6 Pulse 97 Resp 16 B/P (MAP) 127/81 (96) Pulse Ox 99 O2 Delivery Room Air Room Air 03/22/20 00:00 Intake Total 950 ml Output Total 800 ml Balance 150 ml Constitutional: AAO x 3 Respiratory: chest is bilaterally symmetric, lungs clear to auscultation Cardiovascular: regular rate-rhythm, S1 and S2, systolic murmur Gastrointestional: soft, audible bowel sounds Extremities: normal range of motion, non-tender, normal inspection, pedal edema Neurologic/Psychiatric: no motor/sensory deficits, alert, normal mood/affect, oriented x 3 Skin: normal color Results/Procedures: Labs Laboratory Tests 03/22/20 06:45: White Blood Count 8.8, Red Blood Count 3.62L, Hemoglobin 10.0L, Hematocrit 31L, Mean Corpuscular Volume 84, Mean Corpuscular Hemoglobin 28, Mean Corpuscular Hemoglobin Concent 33, Red Cell Distribution Width 22.0H, Platelet Count 353, Mean Platelet Volume 8.4, Neutrophils (%) (Auto) 80H, Lymphocytes (%) (Auto) 9L, Monocytes (%) (Auto) 10, Eosinophils (%) (Auto) 1, Basophils (%) (Auto) 0, Neutrophils # (Auto) 7.0, Lymphocytes # (Auto) 0.8L, Monocytes # (Auto) 0.9, Eosinophils # (Auto) 0.1, Basophils # (Auto) 0.0, Sodium Level 135, Potassium Level 3.8, Chloride Level 112H, Carbon Dioxide Level 15L, Anion Gap 8, Blood Urea Nitrogen 7, Creatinine 0.61, Estimat Glomerular Filtration Rate > 60, BUN/Creatinine Ratio 11, Glucose Level 102, Calcium Level 7.8L, Phosphorus Level 3.0, Magnesium Level 2.0 Microbiology 03/16/20 Gram Stain - Final, Complete 03/16/20 Anaerobic Culture - Final, Complete No anaerobes isolated 03/16/20 Surgical Culture - Final, Complete No growth 03/14/20 Blood Culture - Final, Complete No growth A/P: Assessment/Dx: Currently in inpatient rehabilitation. Sinus tach and leucocytosis, consider systemic infection (managed by [facility]). Resolved. Okay to DC telemetry. S/p colectomy for intestinal obstruction Marked post-op anemia, managed by the Surgical and Hospitalist Services - received 2 units of 03-09-2020 Hypokalemia, corrected Abnormal ECG, but no evidence of ac [place] CAD, h/o cor stenting at [facility] in Oct 2019. Last card cath on 03/05/20: patent stents in the mid left circumflex and the mid right coronary arteries. There is moderate diffuse disease of all coronary arteries. There is moderately severe diffuse disease of the distal left anterior descending. A small caliber obtuse marginal has 70% to 80% ostial stenosis. Normal left ventricular end- diastolic pressure. Echo of 03/05/20: LVEF 60-65%, mild to mod TR, RVSP 35-40 mmHg, mild dilatation of LA Post-op hypotension and EMIGDIO 2, resolved Plan: * Beta nadeem * Continue DAPT because of recent coronary stenting. On aspirin and Plavix. * Monitor labs Thank you for your consultation. Please call me if you have any questions. Odessa Allen MD, FACP, FACC, FSCAI, FHRS, CCDS Interventional Cardiology Cardiac Electrophysiology Vascular Medicine and Endovascular Interventions Kusum ALLEN MD Mar 22, 2020 10:40
--- NOTE | 2020-03-22 13:18 | PM&R Progress Note ---
Subjective HPI/CC On Admission Date Seen by Provider: Mar 22, 2020 Time Seen by Provider: 13:00 Subjective/Events-last exam Patient doing better each day Spirits are up but flat affect is chronic Abx completed and no fever recurrence, incisional wound looks good per surgery Pain managed well Poor nutrition managed with diet and she is eating better and more portions Venofer infusion tolerated well and really giving her a boost Hgb 10 Magic mouthwash really helping her Iliostomy working well for the patient but bag "exploded" off earlier so working on that Checked meds and labs Conferred with RN Reviewed therapy notes Review of Systems General: Fatigue Pulmonary: Dyspnea Objective Exam Vital Signs Vital Signs Date Time Temp Pulse Resp B/P (MAP) Pulse Ox O2 Delivery O2 Flow Rate FiO2 03/22/20 09:00 Room Air 03/22/20 05:31 36.6 97 16 127/81 (96) 99 03/17/20 10:05 21 Capillary Refill : Less Than 3 Seconds General Appearance: No Apparent Distress, Anxious, Chronically ill HEENT: PERRL/EOMI, Normal ENT Inspection, Pharynx Normal, Moist Mucous Membranes Neck: Full Range of Motion, Non Tender, Supple Respiratory: Chest Non Tender, Lungs Clear, No Accessory Muscle Use, No R espiratory Distress, Decreased Breath Sounds Cardiovascular: Regular Rate, Rhythm, No Gallop, No JVD, No Murmur Gastrointestinal: Normal Bowel Sounds, No Organomegaly, No Pulsatile Mass, Soft, Tenderness Back: Normal Inspection, No CVA Tenderness, No Vertebral Tenderness Extremity: Pedal Edema (2+ legs) Neurologic/Psychiatric: Alert, Oriented x3, distribution center associate II-XII Norm as Tested, Depressed Affect, Motor Weakness (generalized all extremties) Skin: Normal Color Lymphatic: No Adenopathy Results/Procedures Lab Laboratory Tests 03/22/20 06:45 Patient resulted labs reviewed. FIM Transfers Therapy Code Descriptions/Definitions Functional [place] Measure: 0=Not Assessed/NA 4=Minimal Assistance 1=Total Assistance 5=Supervision or Setup 2=Maximal Assistance 6=Modified [place] 3=Moderate Assistance 7=Complete IndependenceSCALE: Activities may be completed with or without assistive devices. 8-Wuhzmpckbh-otqyfzs completes the activity by him/herself with no assistance from a helper. 5-Set-up or Clean-up Assistance-helper sets up or cleans up; patient completes activity. [place] assists only prior to or following the activity. 4-Supervision or Touching Assistance-helper provides verbal cues and/or touching/steadying and/or contact guard assistance as patient completes act ivity. Assistance may be provided throughout the activity or intermittently. 3-Partial/Moderate Assistance-helper does LESS THAN HALF the effort. [place] lifts, holds or supports trunk or limbs, but provides less than half the effort. 2-Substantial/Maximal Assistance-helper does MORE THAN HALF the effort. [place] lifts or holds trunk or limbs and provides more than half the effort. 3-Vzahqdwpq-dxyfdr does ALL the effort. Patient does none of the effort to complete the activity. Or, the assistance of 2 or more helpers is required for the patient to complete the activity. If activity was not attempted, code reason: 7-Patient Refused. 9-Not Applicable-not attempted and the patient did not perform the activity before the current illness, exacerbation or injury. 10-Not Attempted due to Environmental Limitations-(lack of equipment, weather restraints, etc.). 88-Not Attempted due to Medical Conditions or Safety Concerns. Roll Left to Right (QC): 6 Sit to Lying (QC): 3 Sit to Stand (QC): 4 Chair/Dcv-zc-Uoaix Xfer(QC): 6 Car Transfer (QC): 3 Gait Training Does the Patient Walk?: Yes Distance: 250 Walk 10 feet (QC): 5 Walk 50 ft with 2 Turns(QC): 5 Walk 150 ft (QC): 5 Walking 10ft/uneven surface-QC: 4 Gait Persons Needed: 1 Gait Assistive Device: FWW Wheelchair Training Does the Pt Use a Wheelchair?: No Wheel 50 ft with 2 turns (QC): 9 Wheel 150 ft (QC): 9 Stair Training Stair Training: Handrails/: uses walker #of Steps: 2 1 Step (curb) (QC): 88 4 Steps (QC): 88 12 Steps (QC): 88 Stairs: Pattern: Step to Balance Picking up an Object (QC): 88 ADL-Treatment Eating (QC): 6 Oral Hygiene (QC): 6 (pt completed task seated at sink.) Shower/Bathe Self (QC): 4 (sponge bath. Pt able to wash all parts, SBA in stand at FWW) Upper Body Dressing (QC): 5 (set up assist) Lower Body Dressing (QC): 4 (pt donned pants at recliner, SBA in stand at FWW) On/Off Footwear (QC): 3 (Pt doffed socks with coding specialist home health, OT donned TEDhose, then pt able to don socks with sock aide. 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 Anasarca Hirsutism Poor albumin level improving with good nutrition Sore mouth added Nystatin and Magic mouthwash resolving s/p fever Zosyn added by Dr Taveras empirically now DC Ascites s/p paracentesis just bloody serous NGTD Anemia s/p transfusions 2 units 03/17/20 now hgb 10 with iron infusions co mpleting Situational depression Plan: Mouth treatment is improving status IRF protocol Lab monitored Check labs periodically Wound care to iliostomy site Paracentesis completed Abx completed Fever resolved Check labs in am (1) S/P colectomy (2) Ileostomy in place (3) Hirsutism (4) Tachycardia (5) Anasarca (6) Anemia (7) Debility (8) Sigmoid volvulus (9) Leukocytosis (10) Acute kidney injury (11) Hyponatremia (12) Coronary artery disease (13) Abdominal pain Status: Acute (14) Elevated troponin (15) S/P cardiac cath SESAR BEEBE DO Mar 22, 2020 13:18
[2020-03-22] MEDS ORDERED: NYSTATIN PO SCH ×4 (16:00)
[2020-03-22] MEDS ORDERED: PREDNISOLONE PO SCH ×4 (16:00)
[2020-03-22] MEDS ORDERED: [UNRECOGNIZED DRUG - OTHER] PO SCH ×4 (16:00)
[2020-03-22 18:00] VITALS: BP 135/86
[2020-03-22 20:37] VITALS: BP 137/88
[2020-03-23 05:05] VITALS: BP 131/85
[2020-03-23] MEDS: NYSTATIN PO SCH ×16 (06:21→21:11)
[2020-03-23] MEDS: [UNRECOGNIZED DRUG - OTHER] PO SCH ×16 (06:21→21:11)
[2020-03-23] MEDS: CATHETER FLUSH 10 ML SYR IV SCH ×3 (06:21→22:42)
[2020-03-23] MEDS: PREDNISOLONE PO SCH ×16 (06:21→21:11)
[2020-03-23 06:39] LABS: BASOPHILS % (AUTO) 0 % (0-10); EOSINOPHILS # (AUTO) 0.2 10^3/uL (0.0-0.3); EOSINOPHILS % (AUTO) 2 % (0-10); HEMATOCRIT 33 % (35-52); HEMOGLOBIN 10.6 G/DL (11.5-16.0); LYMPHOCYTES # (AUTO) 0.8 X 10^3 (1.0-4.0); LYMPHOCYTES % (AUTO) 7 % (12-44); MEAN CORPUSCULAR HEMOGLOBIN 27 PG (25-34); MEAN CORPUSCULAR HGB CONC 32 G/DL (32-36); MEAN CORPUSCULAR VOLUME 85 FL (80-99); MEAN PLATELET VOLUME 8.7 FL (7.4-10.4); MONOCYTES # (AUTO) 0.9 X 10^3 (0.0-1.0); MONOCYTES % (AUTO) 9 % (0-12); NEUTROPHILS # (AUTO) 8.4 X 10^3 (1.8-7.8); NEUTROPHILS % (AUTO) 81 % (42-75); PLATELET COUNT 386 10^3/uL (130-400); RED CELL DISTRIBUTION WIDTH 21.8 % (10.0-14.5); WHITE BLOOD COUNT 10.4 10^3/uL (4.3-11.0)
[2020-03-23 06:51] LABS: ALBUMIN 2.7 GM/DL (3.2-4.5); CHLORIDE 112 MMOL/L (98-107); SODIUM 136 MMOL/L (135-145)
[2020-03-23 06:53] LABS: CALCIUM 8.2 MG/DL (8.5-10.1)
[2020-03-23 06:54] LABS: GLUCOSE 102 MG/DL (70-105)
[2020-03-23 06:55] LABS: CARBON DIOXIDE 16 MMOL/L (21-32)
[2020-03-23 06:56] LABS: BILIRUBIN,TOTAL 0.8 MG/DL (0.1-1.0)
[2020-03-23 06:57] LABS: ALKALINE PHOSPHATASE 158 U/L (40-136)
[2020-03-23 06:58] LABS: CREATININE SERUM 0.66 MG/DL (0.60-1.30); GFR ESTIMATED > 60
[2020-03-23 06:59] LABS: BUN/CREATININE RATIO 14
[2020-03-23 07:00] LABS: ALANINE AMINOTRANSFERASE 25 U/L (0-55)
[2020-03-23] MEDS: DOCUSATE SODIUM 100 MG (COLACE) CAP PO SCH ×2 (08:00→21:19)
[2020-03-23] MEDS: polyethylene glycoL POWDER 17 GM (MIRALAX) PACK PO SCH ×2 (08:01→21:19)
[2020-03-23] MEDS: SENNA W/DOCUSATE (SENOKOT S) TABLET PO SCH ×2 (08:01→21:20)
--- NOTE | 2020-03-23 08:38 | Occupational Ther Daily Note ---
OT Current Status-Daily Note Subjective Pt seated upright in recliner, agreeable to OT tx. Pt did not verbalize any pain during tx. Mental Status/Objective Patient Orientation: Normal For Age Attachments: Colostomy/Ileostomy ADL-Treatment Therapy Code Descriptions/Definitions Functional [place] Measure: 0=Not Assessed/NA 4=Minimal Assistance 1=Total Assistance 5=Supervision or Setup 2=Maximal Assistance 6=Modified [place] 3=Moderate Assistance 7=Complete IndependenceSCALE: Activities may be completed with or without assistive devices. 8-Zuadcynzse-jiqkmno completes the activity by him/herself with no assistance from a helper. 5-Set-up or Clean-up Assistance-helper sets up or cleans up; patient completes activity. [place] assists only prior to or following the activity. 4-Supervision or Touching Assistance-helper provides verbal cues and/or touching/steadying and/or contact guard assistance as patient completes activity. Assistance may be provided throughout the activity or intermittently. 3-Partial/Moderate Assistance-helper does LESS THAN HALF the effort. [place] lifts, holds or supports trunk or limbs, but provides less than half the effort. 2-Substantial/Maximal Assistance-helper does MORE THAN HALF the effort. [place] lifts or holds trunk or limbs and provides more than half the effort. 1-Qklwpbrrm-kekovw does ALL the effort. Patient does none of the effort to complete the activity. Or, the assistance of 2 or more helpers is required for the patient to complete the activity. If activity was not attempted, code reason: 7-Patient Refused. 9-Not Applicable-not attempted and the patient did not perform the activity before the current illness, exacerbation or injury. 10-Not Attempted due to Environmental Limitations-(lack of equipment, weather restraints, etc.). 88-Not Attempted due to Medical Conditions or Safety Concerns. Oral Hygiene (QC): 6 (sitting at sink) Lower Body Dressing (QC): 4 (SBA) On/Off Footwear: 3 (Pt doffed socks using contact center professional, OT dependently donned tedhose, then pt able to don socks with sock aide.) Other Treatment Pt seated in recliner, asked if she could wash her hair with a shower cap, shave and brush her teeth today. Pt washed her hair with set up of warm shower cap at recliner, she then dried her hair and combed it. Pt ambulated to the bathroom using FWW, SBA where she sat at sink in order to shave and brush her teeth. Pt completed seated tasks at sink independently. Pt transferred to recliner where she used washcloth to wipe under her breasts and stomach fold. Nurse present to place powder on folds. Pt doffed/donned underwear, changed her hospital gown, and donned socks. Pt requested to lay down after treatment. Pt transferred from recliner to bed using FWW, SBA. She then transferred sit to supine with SBA. Post OT session, pt laying in bed, call light in reach and all needs met. Education OT Patient Education: Correct positioning, Energy conservation, Modified ADL techniques, Progress toward Goal/Update tx plan, Purpose of tx/functional activities, Transfer techniques Teaching Recipient: Patient Teaching Methods: Discussion Response to Teaching: Verbalize Understanding OT Short Term Goals Short Term Goals Upper body dressin Lower body dressin Putting on/taking off footwear: 5 OT Table Cut Off Saw Operator Goals Alf Goals Time Frame: March 27, 2020 Eating (QC): 6 Oral Hygiene (QC): 6 Toileting Hygiene (QC): 6 Shower/Bathe Self (QC): 6 Upper Body Dressing (QC): 6 Lower Body Dressing (QC): 6 On/Off Footwear (QC): 6 Additional Goals: 1-Demonstrate ADL Tasks, 2-Verbalize Understanding, 3- ImproveStrength/Fern 1=Demonstrate adherence to instructed precautions during ADL tasks. 2=Patient will verbalize/demonstrate understanding of assistive devices/modifications for ADL. 3=Patient will improve strength/tolerance for activity to enable patient to perform ADL's. OT Education/Plan Problem List/Assessment Assessment: Decreased Activ Tolerance, Decreased UE Strength, Impaired I ADL's, Impaired Self-Care Skills Discharge Recommendations Plan/Recommendations: Continue POC Treatment Plan/Plan of Care Patient would benefit from OT for education, treatment and training to promote independence in ADL's, mobility, safety and/or upper extremity function for ADL's. Plan of Care: ADL Retraining, Concurrent Therapy, Functional Mobility, Group Exercise/Act as Ind, UE Funct Exercise/Act Treatment Duration: March 27, 2020 Frequency: At least 5 of 7 days/Wk (IRF) Estimated Hrs Per Day: 1.5 hours per day Agreement: Yes Rehab Potential: Fair Time/GCodes Start Time: 07:50 Stop Time: 09:20 Total Time Billed (hr/min): 90 Billed Treatment Time 1, ADL 6 SHAVON BARTLETT OT Mar 23, 2020 08:38
[2020-03-23] MEDS: NYSTATIN ORAL SUSP 5 ML UDC PO SCH ×3 (08:48→18:39)
[2020-03-23] MEDS: meTOprolol TARTRATE 50 MG (LOPRESSOR) TAB PO SCH ×2 (08:48→21:03)
[2020-03-23] MEDS: PANTOPRAZOLE 40 MG (PROTONIX) TAB PO SCH (08:48)
[2020-03-23] MEDS: NYSTATIN CREAM (MYCOSTATIN) 30 GM TUBE TP SCH ×2 (08:49→21:20)
[2020-03-23] MEDS: MICONAZOLE 2% POWDER (DESENEX AF) 90 GM TOP SCH ×2 (08:49→21:03)
--- NOTE | 2020-03-23 09:24 | Cardiology Progress Note ---
Subjective Date Seen by Provider: Mar 23, 2020 Time Seen by Provider: 08:25 Subjective/Events-last exam Patient sitting up in chair, denies any chest pain, dyspnea, or palpitations Review of Systems General: No Chills, No Night Sweats, No Fatigue, No Malaise, No Appetite, No Other HEENT: No Head Aches, No Visual Changes, No Eye Pain, No Ear Pain, No Dysphasia, No Sinus Congestion, No Post Nasal Drip, No Sore Throat, No Other Pulmonary: No Dyspnea, No Cough, No Pleuritic Chest Pain, No Other Cardiovascular: No: Chest Pain, Palpitations, Orthopnea, Paroxysmal Noc. Dyspnea, Edema, Lt Headedness, Other Objective-Cardiology Exam Last Set of Vital Signs Vital Signs 03/17/20 03/23/20 03/23/20 10:05 05:05 08:15 Temp 36.4 Pulse 94 Resp 16 B/P (MAP) 131/85 (100) Pulse Ox 96 O2 Delivery Room Air FiO2 21 Capillary Refill : Less Than 3 Seconds I&O Intake and Output 03/23/20 00:00 Intake Total 1550 ml Output Total 6300 ml Balance -4750 ml Intake Oral 1550 ml Output Urine Total 1750 ml Stool Total 4550 ml # Bowel Movements 1 General: Alert, Oriented X3, Cooperative HEENT: Atraumatic, PERRLA Neck: Supple, No JVD, No Thyromegaly Lungs: Clear to Auscultation, Normal Air Movement Heart: Other (tachycardia) Abdomen: Soft, No Tenderness Extremities: No Clubbing, No Edema, Normal Pulses Skin: No Rashes, No Significant Lesion Neuro: Normal Gait, Normal Speech, Cranial Nerves 3-12 NL Psych/Mental Status: Mental Status NL, Mood NL Results Lab Laboratory Tests 03/23/20 06:35 A/P-Cardiology Admission Diagnosis CAD Sinus tachycardia Anemia ischemic bowel s/p colectomy Assessment/Plan CAD, h/o stenting at [facility] Oct 2019. Last card cath on 03/05/20: patent stents in the mid left circumflex and the mid right coronary arteries. There is moderate diffuse disease of all coronary arteries. There is moderately severe diffuse disease of the distal left anterior descending. A small caliber obtuse marginal has 70% to 80% ostial stenosis. Normal left ventricular end- diastolic pressure. Echo of 03/05/20: LVEF 60-65%, mild to mod TR, RVSP 35-40 mmHg, mild dilatation of LA. ASA and Plavix were d/c'd on 03/17 secondary to anemia, planning to restart medication Sinus tachycardia, continue on beta nadeem S/p colectomy for intestinal obstruction Marked post-op anemia, s/p transfusion, managed by the [facility] Hypokalemia, corrected, continue to monitor Post-op hypotension and EMIGDIO 2, resolved Patient was seen and evaluated with Jossy, examination performed, management plan was discussed, agree with the current scribed note, I made few changes to the note using Italic font Patient was seen at bedside, comfortably, denied any chest pain Examination lungs were clear to auscultation, heart is regular Discussed regarding restarting aspirin and Plavix, no active bleeding is noted at this time, discussed with Dr. Ji and we agreed on restarting aspirin and Plavix and monitoring her closely Continue to monitor heart rate and blood pressure Monitor H&H Clinical Quality Measures DVT/VTE Risk/Contraindication: Risk Factor Score Per Nursin RFS Level Per Nursing on Admit: 4+=Very High JOSSY RASCON Mar 23, 2020 09:24 MALLORY MELLO MD Mar 23, 2020 13:09
--- NOTE | 2020-03-23 09:27 | PM&R Progress Note ---
Subjective HPI/CC On Admission Date Seen by Provider: Mar 23, 2020 Time Seen by Provider: 09:30 Subjective/Events-last exam Pt doing very well. Hgb 10.6. No fever. Edema is much improved. Overall feels like she is improving but Pt very weak and debilitated. Getting around with PT pretty well. Still struggling with ostomy bag. Checked meds and labs Conferred with RN Reviewed therapy notes Review of Systems General: Fatigue Pulmonary: Dyspnea Cardiovascular: Edema Neurological: Incoordination Objective Exam Vital Signs Vital Signs Date Time Temp Pulse Resp B/P (MAP) Pulse Ox O2 Delivery O2 Flow Rate FiO2 03/23/20 17:26 35.6 107 18 133/90 (104) 97 Room Air 03/17/20 10:05 21 Capillary Refill : Less Than 3 Seconds General Appearance: No Apparent Distress, Anxious, Chronically ill HEENT: PERRL/EOMI, Normal ENT Inspection, Pharynx Normal, Moist Mucous Membranes Neck: Full Range of Motion, Non Tender, Supple Respiratory: Chest Non Tender, Lungs Clear, No Accessory Muscle Use, No Respiratory Distress, Decreased Breath Sounds Cardiovascular: Regular Rate, Rhythm, No Gallop, No JVD, No Murmur Gastrointestinal: Normal Bowel Sounds, No Organomegaly, No Pulsatile Mass, Soft, Tenderness Back: Normal Inspection, No CVA Tenderness, No Vertebral Tenderness Extremity: Pedal Edema (2+ legs) Neurologic/Psychiatric: Alert, Oriented x3, commission for the blind director II-XII Norm as Tested, Depressed Affect, Motor Weakness (generalized all extremties) Skin: Normal Color Lymphatic: No Adenopathy Results/Procedures Lab Laboratory Tests 03/23/20 06:35 Patient resulted labs reviewed. FIM Transfers Therapy Code Descriptions/Definitions Functional [place] Measure: 0=Not Assessed/NA 4=Minimal Assistance 1=Total Assistance 5=Supervision or Setup 2=Maximal Assistance 6=Modified [place] 3=Moderate Assistance 7=Complete IndependenceSCALE: Activities may be completed with or without assistive devices. 4-Qsbupbnemv-dpkgmgh completes the activity by him/herself with no assistance from a helper. 5-Set-up or Clean-up Assistance-helper sets up or cleans up; patient completes activity. [place] assists only prior to or following the activity. 4-Supervision or Touching Assistance-helper provides verbal cues and/or touching/steadying and/or contact guard assistance as patient completes activity. Assistance may be provided throughout the activity or intermittently. 3-Partial/Moderate Assistance-helper does LESS THAN HALF the effort. [place] lifts, holds or supports trunk or limbs, but provides less than half the effort. 2-Substantial/Maximal Assistance-helper does MORE THAN HALF the effort. [place] lifts or holds trunk or limbs and provides more than half the effort. 6-Kwmwqowcy-pgrjmx does ALL the effort. Patient does none of the effort to complete the activity. Or, the assistance of 2 or more helpers is required for the patient to complete the activity. If activity was not attempted, code reason: 7-Patient Refused. 9-Not Applicable-not attempted and the patient did not perform the activity before the current illness, exacerbation or injury. 10-Not Attempted due to Environmental Limitations-(lack of equipment, weather restraints, etc.). 88-Not Attempted due to Medical Conditions or Safety Concerns. Roll Left to Right (QC): 6 Sit to Lying (QC): 3 Sit to Stand (QC): 4 Chair/Jym-oe-Ebqhy Xfer(QC): 6 Car Transfer (QC): 3 Gait Training Does the Patient Walk?: Yes Distance: 250 Walk 10 feet (QC): 5 Walk 50 ft with 2 Turns(QC): 5 Walk 150 ft (QC): 5 Walking 10ft/uneven surface-QC: 4 Gait Persons Needed: 1 Gait Assistive Device: FWW Wheelchair Training Does the Pt Use a Wheelchair?: No Wheel 50 ft with 2 turns (QC): 9 Wheel 150 ft (QC): 9 Stair Training Stair Training: Handrails/: uses walker #of Steps: 2 1 Step (curb) (QC): 88 4 Steps (QC): 88 12 Steps (QC): 88 Stairs: Pattern: Step to Balance Picking up an Object (QC): 88 ADL-Treatment Eating (QC): 6 Oral Hygiene (QC): 6 (sitting at sink) Shower/Bathe Self (QC): 4 (sponge bath. Pt able to wash all parts, SBA in stand at FWW) Upper Body Dressing (QC): 5 (set up assist) Lower Body Dressing (QC): 4 (SBA) On/Off Footwear (QC): 3 (Pt doffed socks using sys dir, OT dependently donned tedhose, then pt able to don socks with sock aide.) Toileting Hygiene (QC): 4 (SBA pt managed clothing and hygiene) Toilet Transfer (QC): 4 (SBA on/off BSC over toilet.) Assessment/Plan Assessment and Plan Assess & Plan/Chief Complaint Assessment: Debility s/p critical illness and VDRF 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 Anasarca Hirsutism Poor albumin level improving with good nutrition Sore mouth added Nystatin and Magic mouthwash resolving s/p fever Zosyn added by Dr Taveras empirically now DC Ascites s/p paracentesis just bloody serous NGTD Anemia s/p transfusions 2 units 03/17/20 now hgb 10 with iron infusions completing Situational depression Plan: Mouth treatment is improving status IRF protocol Lab monitored Check labs periodically Wound care to iliostomy site Paracentesis completed Abx completed Fever resolved Checked labs in am (1) S/P colectomy (2) Ileostomy in place (3) Hirsutism (4) Tachycardia (5) Anasarca (6) Anemia (7) Debility (8) Sigmoid volvulus (9) Leukocytosis (10) Acute kidney injury (11) Hyponatremia (12) Coronary artery disease (13) Abdominal pain Status: Acute (14) Elevated troponin (15) S/P cardiac cath SESAR BEEBE DO Mar 23, 2020 09:27
--- NOTE | 2020-03-23 12:15 | Physical Therapy Daily Note ---
PT Daily Note-Current Subjective Pt. pleasant and happy to tell this LEAD SOFTWARE TESTER she has made significant progress since seen by this therapist last. Pain Location: No Pain Reported Mental Status Patient Orientation: Normal For Age Attachments: Colostomy/Ileostomy Transfers SCALE: Activities may be completed with or without assistive devices. 6-Gwtnxkgqng-hhaouef completes the activity by him/herself with no assistance from a helper. 5-Set-up or Clean-up Assistance-helper sets up or cleans up; patient completes activity. [place] assists only prior to or following the activity. 4-Supervision or Touching Assistance-helper provides verbal cues and/or touching/steadying and/or contact guard assistance as patient completes activity. Assistance may be provided throughout the activity or intermittently. 3-Partial/Moderate Assistance-helper does LESS THAN HALF the effort. [place] lifts, holds or supports trunk or limbs, but provides less than half the effort. 2-Substantial/Maximal Assistance-helper does MORE THAN HALF the effort. [place] lifts or holds trunk or limbs and provides more than half the effort. 7-Bmjykthmj-krybbo does ALL the effort. Patient does none of the effort to complete the activity. Or, the assistance of 2 or more helpers is required for the patient to complete the activity. If activity was not attempted, code reason: 7-Patient Refused. 9-Not Applicable-not attempted and the patient did not perform the activity before the current illness, exacerbation or injury. 10-Not Attempted due to Environmental Limitations-(lack of equipment, weather restraints, etc.). 88-Not Attempted due to Medical Conditions or Safety Concerns. Roll Left & Right (QC): 6 Sit to Lying (QC): 6 Lying to Sitting/Side of Bed(Q: 6 Sit to Stand (QC): 6 Chair/Eiy-sz-Kpnol Xfer(QC): 6 Toilet Transfer (QC): 6 Weight Bearing Right Lower Extremity: Right Full Weight Bearing Left Lower Extremity: Left Full Weight Bearing Gait Training Does the Patient Walk?: Yes Walk 10 feet (QC): 5 Walk 50 ft with 2 Turns(QC): 5 Walk 150 ft (QC): 5 Gait Persons Needed: 1 Gait Assistive Device: FWW Stair Training Stair Training: Handrails/: uses walker #of Steps: 2 1 Step (curb) (QC): 4 Stairs: Pattern: Step to pink step trial, with good results , will advance to stairs Exercises Supine Ex: Ankle pumps, Quad Set, Rolling, Glut sets, Heel Slides, Scooting, Straight leg raise, Hip abd/add Supine Reps: 15 Seated Therapy Exercises: Ankle pumps, Sit to stand, Long arc quads, Hip flexion Seated Reps: 12 NuStep Minutes: 10 NuStep Workload: 4 Treatments toileted SBA Assessment Current Status: Good Progress PT Short Term Goals Short Term Goals Time Frame: Mar 20, 2020 Roll Left & Right: 3 Sit to lyin Lying to sitting on side of be: 3 Sit to stand: 4 Chair/wxr-tc-ftrvl transfer: 4 Walk 10 feet: 4 Walk 50 feet with two turns: 4 Walk 150 feet: 4 PT Alf Goals Plaster Machine Operator Goals PT Plaster Machine Operator Goals Time Frame: April 03, 2020 Roll Left & Right (QC): 6 Sit to Lying (QC): 6 Lying-Sitting on Side/Bed(QC): 6 Sit to Stand (QC): 6 Chair/Wuk-on-Moqxi Xfer(QC): 6 Toilet Transfer (QC): 6 Car Transfer (QC): 6 Does the Patient Walk: Yes Walk 10 feet (QC): 6 Walk 50ft with 2 Turns (QC): 6 Walk 150 ft (QC): 6 Walking 10ft on Uneven Surface: 6 1 Step (curb) (QC): 4 4 Steps (QC): 4 12 Steps (QC): 88 Picking up an Object (QC): 88 Wheel 50 feet with 2 turns (QC: 88 Wheel 150 feet: 88 PT Plan Treatment/Plan Treatment Plan: Continue Plan of Care Treatment Plan: Bed Mobility, Education, Functional Activity Fern, Functional Strength, Group Therapy, Gait, Safety, Therapeutic Exercise, Transfers Treatment Duration: April 03, 2020 Frequency: At least 5 of 7 days/Wk (IRF) Estimated Hrs Per Day: 1.5 hours per day Patient and/or Family Agrees t: Yes Safety Risks/Education Patient Education: Gait Training, Transfer Techniques, Steps, Correct Positioni ng, Disease Process, Safety Issues Teaching Recipient: Patient Teaching Methods: Demonstration, Discussion Response to Teaching: Verbalize Understanding, Return Demonstration, Reinforcement Needed Time/GCodes Time In: 1105 Time Out: 1205 Total Billed Treatment Time: 60 Total Billed Treatment 1,EX25m,FA15m,GT20m AN CHUN LEAD SOFTWARE TESTER Mar 23, 2020 12:15
[2020-03-23] MEDS ORDERED: ASPIRIN E.C. 81 MG (ECOTRIN) TAB PO ONE (13:00)
[2020-03-23] MEDS ORDERED: CLOPIDOGREL 75 MG (PLAVIX) TABLET PO ONE (13:00)
--- NOTE | 2020-03-23 14:00 | Physical Therapy Daily Note ---
PT Daily Note-Current Subjective Pt. agrees to Rx. Pain Location: No Pain Reported Mental Status Patient Orientation: Normal For Age Transfers SCALE: Activities may be completed with or without assistive devices. 6-Wmdvwbifhy-hqdxekr completes the activity by him/herself with no assistance from a helper. 5-Set-up or Clean-up Assistance-helper sets up or cleans up; patient completes activity. [place] assists only prior to or following the activity. 4-Supervision or Touching Assistance-helper provides verbal cues and/or touching/steadying and/or contact guard assistance as patient completes activity. Assistance may be provided throughout the activity or intermittently. 3-Partial/Moderate Assistance-helper does LESS THAN HALF the effort. [place] lifts, holds or supports trunk or limbs, but provides less than half the effort. 2-Substantial/Maximal Assistance-helper does MORE THAN HALF the effort. [place] lifts or holds trunk or limbs and provides more than half the effort. 6-Wmjdmoemg-hpfcbj does ALL the effort. Patient does none of the effort to complete the activity. Or, the assistance of 2 or more helpers is required for the patient to complete the activity. If activity was not attempted, code reason: 7-Patient Refused. 9-Not Applicable-not attempted and the patient did not perform the activity before the current illness, exacerbation or injury. 10-Not Attempted due to Environmental Limitations-(lack of equipment, weather restraints, etc.). 88-Not Attempted due to Medical Conditions or Safety Concerns. Car Transfer (QC): 5 all SBA Weight Bearing Right Lower Extremity: Right Full Weight Bearing Left Lower Extremity: Left Full Weight Bearing Gait Training Gait Assistive Device: FWW 160ft, 175ft FWW SBA, no LOB, slow, needs rest breaks Exercises Standing: Hip Abduction, Heel/toe raises, Marching, Mini squats Standing Reps: 12 Treatments mask on while out of room per protocol PT Short Term Goals Short Term Goals Time Frame: Mar 20, 2020 Roll Left & Right: 3 Sit to lyin Lying to sitting on side of be: 3 Sit to stand: 4 Chair/pex-qh-ftivy transfer: 4 Walk 10 feet: 4 Walk 50 feet with two turns: 4 Walk 150 feet: 4 PT Residential Goals Residential Goals PT Master Craftsman Goals Time Frame: April 03, 2020 Roll Left & Right (QC): 6 Sit to Lying (QC): 6 Lying-Sitting on Side/Bed(QC): 6 Sit to Stand (QC): 6 Chair/Usa-ht-Ohitx Xfer(QC): 6 Toilet Transfer (QC): 6 Car Transfer (QC): 6 Does the Patient Walk: Yes Walk 10 feet (QC): 6 Walk 50ft with 2 Turns (QC): 6 Walk 150 ft (QC): 6 Walking 10ft on Uneven Surface: 6 1 Step (curb) (QC): 4 4 Steps (QC): 4 12 Steps (QC): 88 Picking up an Object (QC): 88 Wheel 50 feet with 2 turns (QC: 88 Wheel 150 feet: 88 PT Plan Treatment/Plan Treatment Plan: Continue Plan of Care Treatment Plan: Bed Mobility, Education, Functional Activity Fern, Functional Strength, Group Therapy, Gait, Safety, Therapeutic Exercise, Transfers Treatment Duration: April 03, 2020 Frequency: At least 5 of 7 days/Wk (IRF) Estimated Hrs Per Day: 1.5 hours per day Patient and/or Family Agrees t: Yes Safety Risks/Education Patient Education: Gait Training, Transfer Techniques, Correct Positioning, Disease Process, Safety Issues Teaching Recipient: Patient Teaching Methods: Demonstration, Discussion Response to Teaching: Verbalize Understanding, Return Demonstration, Reinforcement Needed Time/GCodes Time In: 1330 Time Out: 1400 Total Billed Treatment Time: 30 Total Billed Treatment 1,GT10m,EX20m AN CHUN COMPUTER TRAINING SPECIALIST Mar 23, 2020 14:00
[2020-03-23 17:26] VITALS: BP 133/90
[2020-03-24] MEDS: NYSTATIN ORAL SUSP 5 ML UDC PO SCH ×5 (01:22→22:39)
[2020-03-24 05:40] VITALS: BP 128/85
[2020-03-24] MEDS: PREDNISOLONE PO SCH ×16 (06:31→22:22)
[2020-03-24] MEDS: NYSTATIN PO SCH ×16 (06:31→22:22)
[2020-03-24] MEDS: [UNRECOGNIZED DRUG - OTHER] PO SCH ×16 (06:31→22:22)
[2020-03-24] MEDS: CATHETER FLUSH 10 ML SYR IV SCH ×3 (06:32→22:23)
[2020-03-24] MEDS: PANTOPRAZOLE 40 MG (PROTONIX) TAB PO SCH (09:07)
[2020-03-24] MEDS: meTOprolol TARTRATE 50 MG (LOPRESSOR) TAB PO SCH ×2 (09:07→22:25)
[2020-03-24] MEDS: ASPIRIN E.C. 81 MG (ECOTRIN) TAB PO SCH (09:07)
[2020-03-24] MEDS: CLOPIDOGREL 75 MG (PLAVIX) TABLET PO SCH (09:07)
[2020-03-24] MEDS: polyethylene glycoL POWDER 17 GM (MIRALAX) PACK PO SCH ×2 (09:10→22:22)
[2020-03-24] MEDS: SENNA W/DOCUSATE (SENOKOT S) TABLET PO SCH ×2 (09:10→22:22)
[2020-03-24] MEDS: NYSTATIN CREAM (MYCOSTATIN) 30 GM TUBE TP SCH ×2 (09:10→22:24)
[2020-03-24] MEDS: MICONAZOLE 2% POWDER (DESENEX AF) 90 GM TOP SCH ×2 (09:10→22:24)
[2020-03-24] MEDS: DOCUSATE SODIUM 100 MG (COLACE) CAP PO SCH ×2 (09:11→22:22)
--- NOTE | 2020-03-24 09:22 | Cardiology Progress Note ---
Subjective Date Seen by Provider: Mar 24, 2020 Time Seen by Provider: 08:25 Subjective/Events-last exam Patient is in bed, denies any chest pain or palpitations. Review of Systems General: No Chills, No Night Sweats, No Fatigue, No Malaise, No Appetite, No Other HEENT: No Head Aches, No Visual Changes, No Eye Pain, No Ear Pain, No Dysphasia, No Sinus Congestion, No Post Nasal Drip, No Sore Throat, No Other Pulmonary: No Dyspnea, No Cough, No Pleuritic Chest Pain, No Other Cardiovascular: No: Chest Pain, Palpitations, Orthopnea, Paroxysmal Noc. Dyspnea, Edema, Lt Headedness, Other Objective-Cardiology Exam Last Set of Vital Signs Vital Signs 03/24/20 03/24/20 05:40 09:00 Temp 36.2 Pulse 101 Resp 18 B/P (MAP) 128/85 (99) Pulse Ox 96 O2 Delivery Room Air Capillary Refill : Less Than 3 Seconds I&O Intake and Output 03/24/20 00:00 Intake Total 1100 ml Output Total 4475 ml Balance -3375 ml Intake Oral 1100 ml Output Urine Total 700 ml Stool Total 3775 ml General: Alert, Oriented X3, Cooperative HEENT: Atraumatic, PERRLA Neck: Supple, No JVD, No Thyromegaly Lungs: Clear to Auscultation, Normal Air Movement Heart: Normal S1, Normal S2, Other (tachycardia) Abdomen: Soft, No Tenderness Extremities: No Clubbing, No Edema, Normal Pulses Skin: No Rashes, No Significant Lesion Neuro: Normal Gait, Normal Speech, Cranial Nerves 3-12 NL Psych/Mental Status: Mental Status NL, Mood NL A/P-Cardiology Admission Diagnosis CAD Sinus tachycardia Anemia ischemic bowel s/p colectomy Assessment/Plan CAD, h/o stenting [facility] Oct [facility]. Last card cath on 03/05/20: patent stents in the mid left circumflex and the mid right coronary arteries. There is moderate diffuse disease of all coronary arteries. There is moderately severe diffuse disease of the distal left anterior descending. A small caliber obtuse marginal has 70% to 80% ostial stenosis. Normal left ventricular end- diastolic pressure. Echo of 03/05/20: LVEF 60-65%, mild to mod TR, RVSP 35-40 mmHg, mild dilatation of LA. ASA and Plavix restarted yesterday. Sinus tachycardia, continue on beta nadeem S/p colectomy for intestinal obstruction Marked post-op anemia, s/p transfusion, managed by the [facility] Hospital[facility]. Continue to monitor H/H closely. Hypokalemia, corrected, continue to monitor Post-op hypotension and EMIGDIO 2, resolved Patient was seen and evaluated with Jossy, examination performed, management plan was discussed, agree with the current scribed note, I made few changes to t he note using Italic font Patient was seen at bedside, comfortable, no new complaint Tolerating aspirin and Plavix Monitor H&H Clinical Quality Measures DVT/VTE Risk/Contraindication: Risk Factor Score Per Nursin RFS Level Per Nursing on Admit: 4+=Very High JOSSY RASCON Mar 24, 2020 09:22 MALLORY MELLO MD Mar 24, 2020 13:29
--- NOTE | 2020-03-24 09:46 | PM&R Progress Note ---
Subjective HPI/CC On Admission Date Seen by Provider: Mar 24, 2020 Time Seen by Provider: 09:45 Subjective/Events-last exam Pt dramatically improved Got in the shower on her own today with assistance There is a lot of gas in the ileostomy bag and will try to reach out to surgery to see if we can have a little better management with that Labs remain stable No fever Overall much improved Checked meds and labs Conferred with RN Reviewed therapy notes Review of Systems General: Fatigue Neurological: Weakness Objective Exam Vital Signs Vital Signs Date Time Temp Pulse Resp B/P (MAP) Pulse Ox O2 Delivery O2 Flow Rate FiO2 03/25/20 06:02 36.4 91 20 123/82 (96) 97 Room Air Capillary Refill : Less Than 3 Seconds General Appearance: No Apparent Distress, Anxious, Chronically ill HEENT: PERRL/EOMI, Normal ENT Inspection, Pharynx Normal, Moist Mucous Membranes Neck: Full Range of Motion, Non Tender, Supple Respiratory: Chest Non Tender, Lungs Clear, No Accessory Muscle Use, No Respiratory Distress, Decreased Breath Sounds Cardiovascular: Regular Rate, Rhythm, No Gallop, No JVD, No Murmur Gastrointestinal: Normal Bowel Sounds, No Organomegaly, No Pulsatile Mass, Soft, Tenderness Back: Normal Inspection, No CVA Tenderness, No Vertebral Tenderness Extremity: Pedal Edema (2+ legs) Neurologic/Psychiatric: Alert, Oriented x3, crew leader/control room operator II-XII Norm as Tested, Depressed Affect, Motor Weakness (generalized all extremties) Skin: Normal Color Lymphatic: No Adenopathy Results/Procedures Lab Laboratory Tests 03/25/20 04:45 Patient resulted labs reviewed. FIM Transfers Therapy Code Descriptions/Definitions Functional [place] Measure: 0=Not Assessed/NA 4=Minimal Assistance 1=Total Assistance 5=Supervision or Setup 2=Maximal Assistance 6=Modified [place] 3=Moderate Assistance 7=Complete IndependenceSCALE: Activities may be completed with or without assistive devices. 6-Uooxigqtsj-bccowpk completes the activity by him/herself with no assistance from a helper. 5-Set-up or Clean-up Assistance-helper sets up or cleans up; patient completes activity. [place] assists only prior to or following the activity. 4-Supervision or Touching Assistance-helper provides verbal cues and/or touching/steadying and/or contact guard assistance as patient completes activity. Assistance may be provided throughout the activity or intermittently. 3-Partial/Moderate Assistance-helper does LESS THAN HALF the effort. [place] lifts, holds or supports trunk or limbs, but provides less than half the effort. 2-Substantial/Maximal Assistance-helper does MORE THAN HALF the effort. [place] lifts or holds trunk or limbs and provides more than half the effort. 9-Qeyxougln-efkdsy does ALL the effort. Patient does none of the effort to complete the activity. Or, the assistance of 2 or more helpers is required for the patient to complete the activity. If activity was not attempted, code reason: 7-Patient Refused. 9-Not Applicable-not attempted and the patient did not perform the activity before the current illness, exacerbation or injury. 10-Not Attempted due to Environmental Limitations-(lack of equipment, weather restraints, etc.). 88-Not Attempted due to Medical Conditions or Safety Concerns. Roll Left to Right (QC): 6 Sit to Lying (QC): 6 Sit to Stand (QC): 6 Chair/Fbx-db-Ztxid Xfer(QC): 6 Car Transfer (QC): 5 Gait Training Does the Patient Walk?: Yes Distance: 250 Walk 10 feet (QC): 5 Walk 50 ft with 2 Turns(QC): 5 Walk 150 ft (QC): 5 Walking 10ft/uneven surface-QC: 4 Gait Persons Needed: 1 Gait Assistive Device: FWW Wheelchair Training Does the Pt Use a Wheelchair?: No Wheel 50 ft with 2 turns (QC): 9 Wheel 150 ft (QC): 9 Stair Training Stair Training: Handrails/: uses walker #of Steps: 2 1 Step (curb) (QC): 4 4 Steps (QC): 88 12 Steps (QC): 88 Stairs: Pattern: Step to Balance Picking up an Object (QC): 88 ADL-Treatment Eating (QC): 6 Oral Hygiene (QC): 6 (sitting at sink) Shower/Bathe Self (QC): 4 (sponge bath. 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 Anasarca Hirsutism Poor albumin level improving with good nutrition Sore mouth added Nystatin and Magic mouthwash resolving s/p fever Zosyn added by Dr Taveras empirically now DC Ascites s/p paracentesis just bloody serous NGTD Anemia s/p transfusions 2 units 03/17/20 now hgb 10 with iron infusions completin g Situational depression Plan: Mouth treatment is improving status IRF protocol Lab monitored Check labs periodically Wound care to iliostomy site Paracentesis completed Abx completed Fever resolved (1) S/P colectomy (2) Ileostomy in place (3) Hirsutism (4) Tachycardia (5) Anasarca (6) Anemia (7) Debility (8) Sigmoid volvulus (9) Leukocytosis (10) Acute kidney injury (11) Hyponatremia (12) Coronary artery disease (13) Abdominal pain Status: Acute (14) Elevated troponin (15) S/P cardiac cath SESAR BEEBE DO Mar 24, 2020 09:45
--- NOTE | 2020-03-24 11:12 | Physical Therapy Daily Note ---
PT Daily Note-Current Subjective Pt ready for PT upon arrival. Pt denies pain, says her bottom seems to be doing better. Pt says her bedside chair is still very uncomfortable. Pt feels her strength is improving "a little". Pt is still planning to stay with a friend upon her discharge. Mental Status Patient Orientation: Person, Place, Situation Transfers SCALE: Activities may be completed with or without assistive devices. 4-Dngbzmjfer-kzvbxbr completes the activity by him/herself with no assistance from a helper. 5-Set-up or Clean-up Assistance-helper sets up or cleans up; patient completes activity. [place] assists only prior to or following the activity. 4-Supervision or Touching Assistance-helper provides verbal cues and/or touching/steadying and/or contact guard assistance as patient completes activity. Assistance may be provided throughout the activity or intermittently. 3-Partial/Moderate Assistance-helper does LESS THAN HALF the effort. [place] lifts, holds or supports trunk or limbs, but provides less than half the effort. 2-Substantial/Maximal Assistance-helper does MORE THAN HALF the effort. [place] lifts or holds trunk or limbs and provides more than half the effort. 0-Ojlunitao-myrlnd does ALL the effort. Patient does none of the effort to complete the activity. Or, the assistance of 2 or more helpers is required for the patient to complete the activity. If activity was not attempted, code reason: 7-Patient Refused. 9-Not Applicable-not attempted and the patient did not perform the activity before the current illness, exacerbation or injury. 10-Not Attempted due to Environmental Limitations-(lack of equipment, weather restraints, etc.). 88-Not Attempted due to Medical Conditions or Safety Concerns. Pt transfers mod (I) all levels. Weight Bearing Right Lower Extremity: Right Full Weight Bearing Left Lower Extremity: Left Full Weight Bearing Gait Training Gait Assistive Device: FWW 1 x 650ft with FWW and SBA, slow speed Exercises Seated Therapy Exercises: Ankle pumps, Long arc quads, Hip flexion, Hip abd/add Seated Reps: 20 Standing: Heel/toe raises, 3 way Ex=Flex, Abd, Ext, Marching, Side steps, Step- ups, Unilateral stance Standing Reps: 20 Practiced tandem stance 2 x [address] NuStep Minutes: 15 NuStep Workload: 5 Assessment Current Status: Good Progress Pt breezy well with frequent rest breaks. Pt strength and functional mobility improving steadily. PT Short Term Goals Short Term Goals Time Frame: Mar 20, 2020 Roll Left & Right: 3 Sit to lyin Lying to sitting on side of be: 3 Sit to stand: 4 Chair/pob-vk-cbbst transfer: 4 Walk 10 feet: 4 Walk 50 feet with two turns: 4 Walk 150 feet: 4 PT Truck Dock Material Mover Goals Truck Dock Material Mover Goals PT Truck Dock Material Mover Goals Time Frame: April 03, 2020 Roll Left & Right (QC): 6 Sit to Lying (QC): 6 Lying-Sitting on Side/Bed(QC): 6 Sit to Stand (QC): 6 Chair/Xbd-bp-Snvdr Xfer(QC): 6 Toilet Transfer (QC): 6 Car Transfer (QC): 6 Does the Patient Walk: Yes Walk 10 feet (QC): 6 Walk 50ft with 2 Turns (QC): 6 Walk 150 ft (QC): 6 Walking 10ft on Uneven Surface: 6 1 Step (curb) (QC): 4 4 Steps (QC): 4 12 Steps (QC): 88 Picking up an Object (QC): 88 Wheel 50 feet with 2 turns (QC: 88 Wheel 150 feet: 88 PT Plan Treatment/Plan Treatment Plan: Continue Plan of Care Treatment Plan: Bed Mobility, Education, Functional Activity Fern, Functional Strength, Group Therapy, Gait, Safety, Therapeutic Exercise, Transfers Treatment Duration: April 03, 2020 Frequency: At least 5 of 7 days/Wk (IRF) Estimated Hrs Per Day: 1.5 hours per day Patient and/or Family Agrees t: Yes Time/GCodes Time In: 1035 Time Out: 1150 Total Billed Treatment Time: 75 Total Billed Treatment 1, Ex x 45', Gait x 30' MOISÉS EMERSON CPTA Mar 24, 2020 11:12
--- NOTE | 2020-03-24 11:19 | NUR ---
RD ASSESSMENT PMHx: hypercholesterolemia; HTN; [place] PT INTERACTION: Pt was awake and pleasant during nutrition follow-up. Pt states she has not been "eating the best" since last assessment. Note avg PO intake 54% x4d, per chart review. Pt states no issues with nausea, vomiting, constipation, or diarrhea since last assessment. Note stool output avg of 3543 ml x4d, and pt currently on bowel regimen of colace BID; senna BID; and miralax BID, per chart review. ABNORMAL NUTRITION-RELATED LAB VALUES LOW: Ca 8.2; alb 2.7 HIGH: Cl 112; alkphos 158 Est. kcal needs: 4173-5642 kcal | 20-25 kcal/kg Est. Pro needs: 66-80 g Pro | 1.0-1.2 g Pro/kg PES STATEMENT: Inadequate oral intake (NI-2.1) related to loss of appetite as evidenced by pt interview | avg PO intake 54% x4d INTERVENTION: Continue with current diet order of DYS2 Mechanically Altered diet. Continue with current diet order of Ensure Enlive with meals TID, for increased kcal intake. Provides 350 kcal and 13 g Pro per serving. Will continue to follow and reassess as pt needs, intake, and status change. MONITOR/EVALUATE: PO Intake; Plan of Care; Hydration Status; Weight Status; Lab Values Camron Rogers, , RD, LD
--- NOTE | 2020-03-24 11:54 | Occupational Ther Daily Note ---
OT Current Status-Daily Note Subjective Pt alert, lying in bed. Nrsg present in room throughout treatment. Pt agrees to therapy. No c/o pain. Mental Status/Objective Patient Orientation: Person, Place, Time, Situation ADL-Treatment Supine to EOB SBA. Pt ambulated to bathroom with SBA using FWW. SBA for toilet transfer and hygiene. SBA for transfer to shower. SBA for bathing using grabbars, hand held shower and shower bench. Pt able to don/doff upper body dressing after set up, lower body dressing with SBA for safety. Pt used sock aide to don socks, doffed socks by hand. Sitting at sink to complete oral care by self. Assist to don PEPITO hose. Pt takes increased time to complete tasks due to decreased activity tolerance. After therapy, pt lying in bed with call light/phone in reach. All needs met in room. Therapy Code Descriptions/Definitions Functional [place] Measure: 0=Not Assessed/NA 4=Minimal Assistance 1=Total Assistance 5=Supervision or Setup 2=Maximal Assistance 6=Modified [place] 3=Moderate Assistance 7=Complete IndependenceSCALE: Activities may be completed with or without assistive devices. 9-Kjtogpcgnn-bgynfkb completes the activity by him/herself with no assistance fr om a helper. 5-Set-up or Clean-up Assistance-helper sets up or cleans up; patient completes activity. [place] assists only prior to or following the activity. 4-Supervision or Touching Assistance-helper provides verbal cues and/or touching/steadying and/or contact guard assistance as patient completes activity. Assistance may be provided throughout the activity or intermittently. 3-Partial/Moderate Assistance-helper does LESS THAN HALF the effort. [place] lifts, holds or supports trunk or limbs, but provides less than half the effort. 2-Substantial/Maximal Assistance-helper does MORE THAN HALF the effort. [place] lifts or holds trunk or limbs and provides more than half the effort. 7-Qjfosghql-gawgqt does ALL the effort. Patient does none of the effort to complete the activity. Or, the assistance of 2 or more helpers is required for the patient to complete the activity. If activity was not attempted, code reason: 7-Patient Refused. 9-Not Applicable-not attempted and the patient did not perform the activity before the current illness, exacerbation or injury. 10-Not Attempted due to Environmental Limitations-(lack of equipment, weather restraints, etc.). 88-Not Attempted due to Medical Conditions or Safety Concerns. Oral Hygiene (QC): 6 Shower/Bathe Self (QC): 4 (SBA) Upper Body Dressing (QC): 5 Lower Body Dressing (QC): 4 (SBA) On/Off Footwear: 3 (SBA for all except the assistance to don PEPITO hose.) Toileting Hygiene (QC): 4 (SBA) Toilet Transfer (QC): 4 (SBA) OT Short Term Goals Short Term Goals Upper body dressin Lower body dressin Putting on/taking off footwear: 5 OT Blood Bank Business Manager Goals Blood Bank Business Manager Goals Time Frame: March 27, 2020 Eating (QC): 6 Oral Hygiene (QC): 6 Toileting Hygiene (QC): 6 Shower/Bathe Self (QC): 6 Upper Body Dressing (QC): 6 Lower Body Dressing (QC): 6 On/Off Footwear (QC): 6 Additional Goals: 1-Demonstrate ADL Tasks, 2-Verbalize Understanding, 3- ImproveStrength/[place] 1=Demonstrate adherence to instructed precautions during ADL tasks. 2=Patient will verbalize/demonstrate understanding of assistive devices/modifications for ADL. 3=Patient will improve strength/tolerance for activity to enable patient to perform ADL's. OT Education/Plan Problem List/Assessment Assessment: Decreased Activ Tolerance, Decreased UE Strength, Impaired Self- Care Skills Discharge Recommendations Plan/Recommendations: Continue POC Treatment Plan/Plan of Care Patient would benefit from OT for education, treatment and training to promote independence in ADL's, mobility, safety and/or upper extremity function for ADL's. Plan of Care: ADL Retraining, Concurrent Therapy, Functional Mobility, Group Exercise/Act as Ind, UE Funct Exercise/Act Treatment Duration: March 27, 2020 Frequency: At least 5 of 7 days/Wk (IRF) Estimated Hrs Per Day: 1.5 hours per day Agreement: Yes Rehab Potential: Fair Time/GCodes Start Time: 08:45 Stop Time: 09:15 Total Time Billed (hr/min): 90 Billed Treatment Time 1 visit-ADL 6 (90 min) LEYDA HOBSON Mar 24, 2020 11:54
--- NOTE | 2020-03-24 14:03 | Physical Therapy Daily Note ---
PT Daily Note-Current Subjective Pt denies pain. Pt agreeable to treatment. Mental Status Patient Orientation: Person, Place, Situation Transfers SCALE: Activities may be completed with or without assistive devices. 9-Zyczuspksn-eexunth completes the activity by him/herself with no assistance from a helper. 5-Set-up or Clean-up Assistance-helper sets up or cleans up; patient completes activity. [place] assists only prior to or following the activity. 4-Supervision or Touching Assistance-helper provides verbal cues and/or touchi ng/steadying and/or contact guard assistance as patient completes activity. Assistance may be provided throughout the activity or intermittently. 3-Partial/Moderate Assistance-helper does LESS THAN HALF the effort. [place] lifts, holds or supports trunk or limbs, but provides less than half the effort. 2-Substantial/Maximal Assistance-helper does MORE THAN HALF the effort. [place] lifts or holds trunk or limbs and provides more than half the effort. 0-Ptvzjopuo-zbwpgc does ALL the effort. Patient does none of the effort to complete the activity. Or, the assistance of 2 or more helpers is required for the patient to complete the activity. If activity was not attempted, code reason: 7-Patient Refused. 9-Not Applicable-not attempted and the patient did not perform the activity before the current illness, exacerbation or injury. 10-Not Attempted due to Environmental Limitations-(lack of equipment, weather restraints, etc.). 88-Not Attempted due to Medical Conditions or Safety Concerns. Weight Bearing Right Lower Extremity: Right Full Weight Bearing Left Lower Extremity: Left Full Weight Bearing Exercises Supine Ex: Ankle pumps, Quad Set, Glut sets, Heel Slides, Short Arc Quads, Straight leg raise, Hip abd/add Supine Reps: 20 Assessment Current Status: Good Progress Pt breezy very well. Progressing appropriately with strength and functional mobility. PT Short Term Goals Short Term Goals Time Frame: Mar 20, 2020 Roll Left & Right: 3 Sit to lyin Lying to sitting on side of be: 3 Sit to stand: 4 Chair/jxn-sw-qyzpi transfer: 4 Walk 10 feet: 4 Walk 50 feet with two turns: 4 Walk 150 feet: 4 PT Billet Examiner Goals Group Home Goals PT Billet Examiner Goals Time Frame: April 03, 2020 Roll Left & Right (QC): 6 Sit to Lying (QC): 6 Lying-Sitting on Side/Bed(QC): 6 Sit to Stand (QC): 6 Chair/Cuv-oh-Teirs Xfer(QC): 6 Toilet Transfer (QC): 6 Car Transfer (QC): 6 Does the Patient Walk: Yes Walk 10 feet (QC): 6 Walk 50ft with 2 Turns (QC): 6 Walk 150 ft (QC): 6 Walking 10ft on Uneven Surface: 6 1 Step (curb) (QC): 4 4 Steps (QC): 4 12 Steps (QC): 88 Picking up an Object (QC): 88 Wheel 50 feet with 2 turns (QC: 88 Wheel 150 feet: 88 PT Plan Treatment/Plan Treatment Plan: Continue Plan of Care Treatment Plan: Bed Mobility, Education, Functional Activity Fern, Functional Strength, Group Therapy, Gait, Safety, Therapeutic Exercise, Transfers Treatment Duration: April 03, 2020 Frequency: At least 5 of 7 days/Wk (IRF) Estimated Hrs Per Day: 1.5 hours per day Patient and/or Family Agrees t: Yes Time/GCodes Time In: 100 Time Out: 115 Total Billed Treatment Time: 15 Total Billed Treatment 1, ther ex 15min MOISÉS EMERSON CPTA Mar 24, 2020 14:03
[2020-03-24 17:08] VITALS: BP 130/88
--- NOTE | 2020-03-24 17:24 | NUR ---
pt feels nauseated right as supper is delivered. vomits 500cc brown and yellow liquid with small chunks undigested food. hygiene and oral cares given, zofran IV per med order given, as pt mouth continues to be sore. rests with head up. supper covered and held in fridge. temp 36.8*. 150cc with flatus noted and emptied from ileostomy. pt rests.
[2020-03-25] MEDS: CATHETER FLUSH 10 ML SYR IV SCH ×3 (04:49→21:08)
[2020-03-25 04:59] LABS: BASOPHILS % (AUTO) 0 % (0-10); EOSINOPHILS # (AUTO) 0.1 10^3/uL (0.0-0.3); EOSINOPHILS % (AUTO) 1 % (0-10); HEMATOCRIT 31 % (35-52); HEMOGLOBIN 10.2 G/DL (11.5-16.0); LYMPHOCYTES # (AUTO) 0.9 X 10^3 (1.0-4.0); LYMPHOCYTES % (AUTO) 8 % (12-44); MEAN CORPUSCULAR HEMOGLOBIN 28 PG (25-34); MEAN CORPUSCULAR HGB CONC 33 G/DL (32-36); MEAN CORPUSCULAR VOLUME 85 FL (80-99); MEAN PLATELET VOLUME 8.5 FL (7.4-10.4); MONOCYTES # (AUTO) 1.1 X 10^3 (0.0-1.0); MONOCYTES % (AUTO) 10 % (0-12); NEUTROPHILS # (AUTO) 8.1 X 10^3 (1.8-7.8); NEUTROPHILS % (AUTO) 80 % (42-75); PLATELET COUNT 423 10^3/uL (130-400); RED CELL DISTRIBUTION WIDTH 21.1 % (10.0-14.5); WHITE BLOOD COUNT 10.1 10^3/uL (4.3-11.0)
[2020-03-25 06:02] VITALS: BP 123/82
[2020-03-25] MEDS: [UNRECOGNIZED DRUG - OTHER] PO SCH ×20 (06:33→21:08)
[2020-03-25] MEDS: PREDNISOLONE PO SCH ×20 (06:33→21:08)
[2020-03-25] MEDS: NYSTATIN PO SCH ×20 (06:33→21:08)
[2020-03-25] MEDS: NYSTATIN ORAL SUSP 5 ML UDC PO SCH ×4 (08:39→22:00)
[2020-03-25] MEDS: CLOPIDOGREL 75 MG (PLAVIX) TABLET PO SCH (08:39)
[2020-03-25] MEDS: ASPIRIN E.C. 81 MG (ECOTRIN) TAB PO SCH (08:39)
[2020-03-25] MEDS: PANTOPRAZOLE 40 MG (PROTONIX) TAB PO SCH (08:40)
[2020-03-25] MEDS: SENNA W/DOCUSATE (SENOKOT S) TABLET PO SCH ×2 (08:40→21:06)
[2020-03-25] MEDS: NYSTATIN CREAM (MYCOSTATIN) 30 GM TUBE TP SCH ×2 (08:40→21:07)
[2020-03-25] MEDS: polyethylene glycoL POWDER 17 GM (MIRALAX) PACK PO SCH ×2 (08:40→21:06)
[2020-03-25] MEDS: MICONAZOLE 2% POWDER (DESENEX AF) 90 GM TOP SCH ×2 (08:40→21:07)
[2020-03-25] MEDS: DOCUSATE SODIUM 100 MG (COLACE) CAP PO SCH ×2 (08:41→21:05)
[2020-03-25] MEDS: meTOprolol TARTRATE 50 MG (LOPRESSOR) TAB PO SCH ×2 (08:42→21:07)
--- NOTE | 2020-03-25 09:05 | Cardiology Progress Note ---
Subjective Date Seen by Provider: Mar 25, 2020 Time Seen by Provider: 08:30 Subjective/Events-last exam Patient sitting up in wheelchair, doing ADL's. Denies any chest pain or dyspnea. Review of Systems General: No Chills, No Night Sweats, No Fatigue, No Malaise, No Appetite, No Other HEENT: No Head Aches, No Visual Changes, No Eye Pain, No Ear Pain, No Dysphasia, No Sinus Congestion, No Post Nasal Drip, No Sore Throat, No Other Pulmonary: Dyspnea; No Cough, No Pleuritic Chest Pain, No Other Cardiovascular: No: Chest Pain, Palpitations, Orthopnea, Paroxysmal Noc. Dyspnea, Edema, Lt Headedness, Other Objective-Cardiology Exam Last Set of Vital Signs Vital Signs 03/25/20 03/25/20 06:02 09:00 Temp 36.4 Pulse 91 Resp 20 B/P (MAP) 123/82 (96) Pulse Ox 97 O2 Delivery Room Air Capillary Refill : Less Than 3 Seconds I&O Intake and Output 03/25/20 00:00 Intake Total 1820 ml Output Total 3450 ml Balance -1630 ml Intake Oral 1820 ml Output Urine Total 500 ml Stool Total 2450 ml Emesis 500 ml General: Alert, Oriented X3, Cooperative HEENT: Atraumatic, PERRLA Neck: Supple, No JVD, No Thyromegaly Lungs: Clear to Auscultation, Normal Air Movement Heart: Normal S1, Normal S2, Other (tachycardia) Abdomen: Soft, No Tenderness Extremities: No Clubbing, No Edema, Normal Pulses Skin: No Rashes, No Significant Lesion Neuro: Normal Gait, Normal Speech, Cranial Nerves 3-12 NL Psych/Mental Status: Mental Status NL, Mood NL Results Lab Laboratory Tests 03/25/20 04:45 A/P-Cardiology Admission Diagnosis CAD Sinus tachycardia Anemia ischemic bowel s/p colectomy Assessment/Plan CAD, h/o stenting at [facility] Oct 2019. Last card cath on 03/05/20: patent stents in the mid left circumflex and the mid right coronary arteries. There is moderate diffuse disease of all coronary arteries. There is moderately severe diffuse disease of the distal left anterior descending. A small caliber obtuse marginal has 70% to 80% ostial stenosis. Normal left ventricular end- diastolic pressure. Echo of 03/05/20: LVEF 60-65%, mild to mod TR, RVSP 35-40 mmHg, mild dilatation of LA. ASA and Plavix restarted, continue to monitor. Sinus tachycardia, continue on beta nadeem S/p colectomy for intestinal obstruction Marked post-op anemia, s/p transfusion, managed by the [facility]. H/H stable, continue to monitor closely. Hypokalemia, corrected, continue to monitor Post-op hypotension and EMIGDIO 2, resolved Patient was seen and evaluated with Jossy, examination performed, management plan was discussed, agree with the current scribed note, I made few changes to the note using Italic font Patient was seen at bedside, comfortable, still having. Still having mild abdominal pain Tolerating aspirin and Plavix well, continue to monitor H&H Clinical Quality Measures DVT/VTE Risk/Contraindication: Risk Factor Score Per Nursin RFS Level Per Nursing on Admit: 4+=Very High JOSSY RASCON Mar 25, 2020 09:05 MALLORY MELLO MD Mar 25, 2020 14:04
--- NOTE | 2020-03-25 09:38 | Occupational Ther Daily Note ---
OT Current Status-Daily Note Subjective Pt seated at EOB at start of session, agreeable to OT Tx with focus on ADLS. She did not report any pain with tx. Mental Status/Objective Patient Orientation: Normal For Age Attachments: Colostomy/Ileostomy ADL-Treatment Therapy Code Descriptions/Definitions Functional Emanuel Measure: 0=Not Assessed/NA 4=Minimal Assistance 1=Total Assistance 5=Supervision or Setup 2=Maximal Assistance 6=Modified Emanuel 3=Moderate Assistance 7=Complete IndependenceSCALE: Activities may be completed with or without assistive devices. 3-Afdqpwhmfj-wwsotmk completes the activity by him/herself with no assistance from a helper. 5-Set-up or Clean-up Assistance-helper sets up or cleans up; patient completes activity. [place] assists only prior to or following the activity. 4-Supervision or Touching Assistance-helper provides verbal cues and/or touching/steadying and/or contact guard assistance as patient completes activity. Assistance may be provided throughout the activity or intermittently. 3-Partial/Moderate Assistance-helper does LESS THAN HALF the effort. [place] lifts, holds or supports trunk or limbs, but provides less than half the effort. 2-Substantial/Maximal Assistance-helper does MORE THAN HALF the effort. [place] lifts or holds trunk or limbs and provides more than half the effort. 2-Ujyrirsjs-bmhfkw does ALL the effort. Patient does none of the effort to complete the activity. Or, the assistance of 2 or more helpers is required for the patient to complete the activity. If activity was not attempted, code reason: 7-Patient Refused. 9-Not Applicable-not attempted and the patient did not perform the activity before the current illness, exacerbation or injury. 10-Not Attempted due to Environmental Limitations-(lack of equipment, weather restraints, etc.). 88-Not Attempted due to Medical Conditions or Safety Concerns. Eating (QC): 6 (per pt report she had no difficulties eating breakfast.) Oral Hygiene (QC): 6 (IND seated at sink) Upper Body Dressing (QC): 5 (set up) Lower Body Dressing (QC): 4 (SBA, pt doffed underwear, donned underwear and pants.) On/Off Footwear: 3 (SBA with socks, min A due to OT donning TEDhose.) Toileting Hygiene (QC): 3 (Min A with emptying ostomy bag. OT and nurse present giving step by step direction.) Other Treatment Pt seated EOB, asked to wash her hair and shave today. OT gathered ADL supplies, then set up warm shower cap for pt to wash her hair. Pt able to wash/dry hair with set up, then she ambulated to the bathroom using FWW with SBA. Pt sat at sink and shaved and completed oral hygiene independently. Nursing present to give pt her meds, then OT and nurse educated pt on emptying her ostomy bag. Pt able to follow directions to complete emptying with min A. Pt then ambulated to EOB where she completed dressing. Pt requested to lay down post tx, transferring sit to supine with SBA. Post OT session, pt laying in bed, call light in reach and all need met. Education OT Patient Education: Correct positioning, Energy conservation, Modified ADL techniques, Progress toward Goal/Update tx plan, Purpose of tx/functional activities, Transfer techniques Teaching Recipient: Patient Teaching Methods: Discussion Response to Teaching: Verbalize Understanding OT Short Term Goals Short Term Goals Upper body dressin Lower body dressin Putting on/taking off footwear: 5 OT Mcfp Goals Mcfp Goals Time Frame: March 27, 2020 Eating (QC): 6 Oral Hygiene (QC): 6 Toileting Hygiene (QC): 6 Shower/Bathe Self (QC): 6 Upper Body Dressing (QC): 6 Lower Body Dressing (QC): 6 On/Off Footwear (QC): 6 Additional Goals: 1-Demonstrate ADL Tasks, 2-Verbalize Understanding, 3-ImproveStrength/Fern 1=Demonstrate adherence to instructed precautions during ADL tasks. 2=Patient will verbalize/demonstrate understanding of assistive devices/modifications for ADL. 3=Patient will improve strength/tolerance for activity to enable patient to perform ADL's. OT Education/Plan Problem List/Assessment Assessment: Decreased Activ Tolerance, Decreased UE Strength, Impaired I ADL's, Impaired Self-Care Skills Discharge Recommendations Plan/Recommendations: Continue POC Treatment Plan/Plan of Care Patient would benefit from OT for education, treatment and training to promote independence in ADL's, mobility, safety and/or upper extremity function for ADL's. Plan of Care: ADL Retraining, Concurrent Therapy, Functional Mobility, Group Exercise/Act as Ind, UE Funct Exercise/Act Treatment Duration: March 27, 2020 Frequency: At least 5 of 7 days/Wk (IRF) Estimated Hrs Per Day: 1.5 hours per day Agreement: Yes Rehab Potential: Fair Time/GCodes Start Time: 08:00 Stop Time: 09:30 Total Time Billed (hr/min): 90 Billed Treatment Time 1, ADL 6 SHAVON BARTLETT OT Mar 25, 2020 09:38
--- NOTE | 2020-03-25 10:00 | NUR ---
pt performing daily cares with therapy. edu given re: emptying ostomy, handout with pictures given. process explained, hand & ostomy hygiene explained, patient practices, tolerates well. will continue to practice throughout day after therapy. Will continue to monitor.
--- NOTE | 2020-03-25 10:14 | PM&R Progress Note ---
Subjective HPI/CC On Admission Date Seen by Provider: Mar 25, 2020 Time Seen by Provider: 10:15 Subjective/Events-last exam She emptied her own ileostomy bag today and nurse was very pleased with her performance there Had a bit of emesis last night of 500 CCs but she ate a good breakfast today and had no problems Overall improving, does not feel like she is ready to go home yet but now she is on track No significant falls and no pain Checked meds and labs Conferred with RN Reviewed therapy notes Review of Systems General: Fatigue Gastrointestinal: Nausea, Vomiting, Abdominal Pain Objective Exam Vital Signs Vital Signs Date Time Temp Pulse Resp B/P (MAP) Pulse Ox O2 Delivery O2 Flow Rate FiO2 03/26/20 05:24 36.7 100 16 129/79 (96) 97 Room Air Capillary Refill : Less Than 3 Seconds General Appearance: No Apparent Distress, Anxious, Chronically ill HEENT: PERRL/EOMI, Normal ENT Inspection, Pharynx Normal, Moist Mucous Membranes Neck: Full Range of Motion, Non Tender, Supple Respiratory: Chest Non Tender, Lungs Clear, No Accessory Muscle Use, No Respiratory Distress, Decreased Breath Sounds Cardiovascular: Regular Rate, Rhythm, No Gallop, No JVD, No Murmur Gastrointestinal: Normal Bowel Sounds, No Organomegaly, No Pulsatile Mass, Soft, Tenderness Back: Normal Inspection, No CVA Tenderness, No Vertebral Tenderness Extremity: Pedal Edema (2+ legs) Neurologic/Psychiatric: Alert, Oriented x3, corn cutter II-XII Norm as Tested, Depressed Affect, Motor Weakness (generalized all extremties) Skin: Normal Color Lymphatic: No Adenopathy Results/Procedures Lab Patient resulted labs reviewed. FIM Transfers Therapy Code Descriptions/Definitions Functional [place] Measure: 0=Not Assessed/NA 4=Minimal Assistance 1=Total Assistance 5=Supervision or Setup 2=Maximal Assistance 6=Modified [place] 3=Moderate Assistance 7=Complete IndependenceSCALE: Activities may be completed with or without assistive devices. 2-Gttqlrbfev-jkccbtp completes the activity by him/herself with no assistance from a helper. 5-Set-up or Clean-up Assistance-helper sets up or cleans up; patient completes activity. [place] assists only prior to or following the activity. 4-Supervision or Touching Assistance-helper provides verbal cues and/or touching/steadying and/or contact guard assistance as patient completes activity. Assistance may be provided throughout the activity or intermittently. 3-Partial/Moderate Assistance-helper does LESS THAN HALF the effort. [place] lifts, holds or supports trunk or limbs, but provides less than half the effort. 2-Substantial/Maximal Assistance-helper does MORE THAN HALF the effort. [place] lifts or holds trunk or limbs and provides more than half the effort. 1-Zeqvefrpp-vgloso does ALL the effort. Patient does none of the effort to complete the activity. Or, the assistance of 2 or more helpers is required for the patient to complete the activity. If activity was not attempted, code reason: 7-Patient Refused. 9-Not Applicable-not attempted and the patient did not perform the activity before the current illness, exacerbation or injury. 10-Not Attempted due to Environmental Limitations-(lack of equipment, weather restraints, etc.). 88-Not Attempted due to Medical Conditions or Safety Concerns. Roll Left to Right (QC): 6 Sit to Lying (QC): 6 Sit to Stand (QC): 6 Chair/Hdx-ie-Cddut Xfer(QC): 6 Car Transfer (QC): 5 Gait Training Does the Patient Walk?: Yes Distance: 250 Walk 10 feet (QC): 5 Walk 50 ft with 2 Turns(QC): 5 Walk 150 ft (QC): 5 Walking 10ft/uneven surface-QC: 4 Gait Persons Needed: 1 Gait Assistive Device: FWW Wheelchair Training Does the Pt Use a Wheelchair?: No Wheel 50 ft with 2 turns (QC): 9 Wheel 150 ft (QC): 9 Stair Training Stair Training: Handrails/: uses walker #of Steps: 2 1 Step (curb) (QC): 4 4 Steps (QC): 88 12 Steps (QC): 88 Stairs: Pattern: Step to Balance Picking up an Object (QC): 88 ADL-Treatment Eating (QC): 6 (per pt report she had no difficulties eating breakfast.) Oral Hygiene (QC): 6 (IND seated at sink) Shower/Bathe Self (QC): 4 (SBA) Upper Body Dressing (QC): 5 (set up) Lower Body Dressing (QC): 4 (SBA, pt doffed underwear, donned underwear and pants.) On/Off Footwear (QC): 3 (SBA with socks, min A due to OT donning TEDhose.) Toileting Hygiene (QC): 3 (Min A with emptying ostomy bag. OT and nurse present giving step by step direction.) Toilet Transfer (QC): 4 (SBA) Assessment/Plan Assessment and Plan Assess & Plan/Chief Complaint Assessment: Debility s/p critical illness and VDRF 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 Anasarca Hirsutism Poor albumin level improving with good nutrition Sore mouth added Nystatin and Magic mouthwash resolving s/p fever Zosyn added by Dr Taveras empirically now DC Ascites s/p paracentesis just bloody serous NGTD Anemia s/p transfusions 2 units 03/17/20 now hgb 10 with iron infusions completing Situational depression Emesis Plan: Mouth treatment is improving status IRF protocol Lab monitored Check labs periodically Wound care to iliostomy site Paracentesis completed Abx completed Fever resolved (1) S/P colectomy (2) Ileostomy in place (3) Hirsutism (4) Tachycardia (5) Anasarca (6) Anemia (7) Debility (8) Sigmoid volvulus (9) Leukocytosis (10) Acute kidney injury (11) Hyponatremia (12) Coronary artery disease (13) Abdominal pain Status: Acute (14) Elevated troponin (15) S/P cardiac cath SESAR BEEBE DO Mar 25, 2020 10:14
--- NOTE | 2020-03-25 12:30 | NUR ---
patient uses call light to request use of restroom to empty ostomy bag. setup assistance offered, patient able to perform emptying of bag and proper hygiene. praise and encouragement offered. will con't to monitor.
--- NOTE | 2020-03-25 14:50 | Physical Therapy Daily Note ---
PT Daily Note-Current Subjective Pt agreeable. Pt reports she was sick last evening but feels really good this morning. Mental Status Patient Orientation: Person, Place, Situation Transfers SCALE: Activities may be completed with or without assistive devices. 8-Ytukchisxs-trpzpgp completes the activity by him/herself with no assistance from a helper. 5-Set-up or Clean-up Assistance-helper sets up or cleans up; patient completes activity. [place] assists only prior to or following the activity. 4-Supervision or Touching Assistance-helper provides verbal cues and/or touching/steadying and/or contact guard assistance as patient completes activity. Assistance may be provided throughout the activity or intermittently. 3-Partial/Moderate Assistance-helper does LESS THAN HALF the effort. [place] lifts, holds or supports trunk or limbs, but provides less than half the effort. 2-Substantial/Maximal Assistance-helper does MORE THAN HALF the effort. [place] lifts or holds trunk or limbs and provides more than half the effort. 3-Jrcrpebta-kgejla does ALL the effort. Patient does none of the effort to complete the activity. Or, the assistance of 2 or more helpers is required for the patient to complete the activity. If activity was not attempted, code reason: 7-Patient Refused. 9-Not Applicable-not attempted and the patient did not perform the activity before the current illness, exacerbation or injury. 10-Not Attempted due to Environmental Limitations-(lack of equipment, weather restraints, etc.). 88-Not Attempted due to Medical Conditions or Safety Concerns. Transfers out of bed with vcs for arm placement and "push", otherwise mod (I) all levels. Weight Bearing Right Lower Extremity: Right Full Weight Bearing Left Lower Extremity: Left Full Weight Bearing Gait Training Gait Assistive Device: FWW Pt amb with FWW 2 x 125ft, SBA Exercises Supine Ex: Ankle pumps, Quad Set, Heel Slides, Short Arc Quads, Straight leg raise, Hip abd/add Supine Reps: 20 Seated Therapy Exercises: Long arc quads, Hip flexion, Hip abd/add Seated Reps: [address] Ex=Flex, Abd, Ext, Marching, Side steps Standing Reps: 20 NuStep Minutes: 20 NuStep Workload: 3 Treatments Pt performed standing single leg stance 3 x 10 sec each leg, walking january with "hold" x 3 trips in //bars for dynamic balance challenge. Assessment Current Status: Good Progress Pt is progressing appropriately all phases. Balance and stamina improving. PT Short Term Goals Short Term Goals Time Frame: Mar 20, 2020 Roll Left & Right: 3 Sit to lyin Lying to sitting on side of be: 3 Sit to stand: 4 Chair/avv-nc-hqeqm transfer: 4 Walk 10 feet: 4 Walk 50 feet with two turns: 4 Walk 150 feet: 4 PT Group Home Goals Grizzly Worker Goals PT Group Home Goals Time Frame: April 03, 2020 Roll Left & Right (QC): 6 Sit to Lying (QC): 6 Lying-Sitting on Side/Bed(QC): 6 Sit to Stand (QC): 6 Chair/Izo-bt-Mujjp Xfer(QC): 6 Toilet Transfer (QC): 6 Car Transfer (QC): 6 Does the Patient Walk: Yes Walk 10 feet (QC): 6 Walk 50ft with 2 Turns (QC): 6 Walk 150 ft (QC): 6 Walking 10ft on Uneven Surface: 6 1 Step (curb) (QC): 4 4 Steps (QC): 4 12 Steps (QC): 88 Picking up an Object (QC): 88 Wheel 50 feet with 2 turns (QC: 88 Wheel 150 feet: 88 PT Plan Treatment/Plan Treatment Plan: Continue Plan of Care Treatment Plan: Bed Mobility, Education, Functional Activity Fern, Functional Strength, Group Therapy, Gait, Safety, Therapeutic Exercise, Transfers Treatment Duration: April 03, 2020 Frequency: At least 5 of 7 days/Wk (IRF) Estimated Hrs Per Day: 1.5 hours per day Patient and/or Family Agrees t: Yes Time/GCodes Time In: 1030 Time Out: 1145 Total Billed Treatment Time: 75 Total Billed Treatment 1, ther ex 45', Gait 30' MOISÉS EMERSON CPTA Mar 25, 2020 14:50
--- NOTE | 2020-03-25 14:54 | Physical Therapy Daily Note ---
PT Daily Note-Current Subjective Pt resting in bed, reports she is "tired". Pt denies pain. Mental Status Patient Orientation: Person, Place, Situation Transfers SCALE: Activities may be completed with or without assistive devices. 8-Agwnzagdsn-qskuxyq completes the activity by him/herself with no assistance from a helper. 5-Set-up or Clean-up Assistance-helper sets up or cleans up; patient completes activity. [place] assists only prior to or following the activity. 4-Supervision or Touching Assistance-helper provides verbal cues and/or touching/steadying and/or contact guard assistance as patient completes activity. Assistance may be provided throughout the activity or intermittently. 3-Partial/Moderate Assistance-helper does LESS THAN HALF the effort. [place] lifts, holds or supports trunk or limbs, but provides less than half the effort. 2-Substantial/Maximal Assistance-helper does MORE THAN HALF the effort. [place] lifts or holds trunk or limbs and provides more than half the effort. 4-Fslojvlqt-zvjnoe does ALL the effort. Patient does none of the effort to complete the activity. Or, the assistance of 2 or more helpers is required for the patient to complete the activity. If activity was not attempted, code reason: 7-Patient Refused. 9-Not Applicable-not attempted and the patient did not perform the activity before the current illness, exacerbation or injury. 10-Not Attempted due to Environmental Limitations-(lack of equipment, weather restraints, etc.). 88-Not Attempted due to Medical Conditions or Safety Concerns. Weight Bearing Right Lower Extremity: Right Full Weight Bearing Left Lower Extremity: Left Full Weight Bearing Exercises Supine Ex: Ankle pumps, Quad Set, Glut sets, Heel Slides, Short Arc Quads, Straight leg raise, Hip abd/add Supine Reps: 20 Assessment Current Status: Good Progress Pt breezy well with good performance. Pt resting in bed post therapy session with call light and all needs met. PT Short Term Goals Short Term Goals Time Frame: Mar 20, 2020 Roll Left & Right: 3 Sit to lyin Lying to sitting on side of be: 3 Sit to stand: 4 Chair/ahv-ft-zvteb transfer: 4 Walk 10 feet: 4 Walk 50 feet with two turns: 4 Walk 150 feet: 4 PT Penitentiary Goals Penitentiary Goals PT Penitentiary Goals Time Frame: April 03, 2020 Roll Left & Right (QC): 6 Sit to Lying (QC): 6 Lying-Sitting on Side/Bed(QC): 6 Sit to Stand (QC): 6 Chair/Vsn-cl-Wljuw Xfer(QC): 6 Toilet Transfer (QC): 6 Car Transfer (QC): 6 Does the Patient Walk: Yes Walk 10 feet (QC): 6 Walk 50ft with 2 Turns (QC): 6 Walk 150 ft (QC): 6 Walking 10ft on Uneven Surface: 6 1 Step (curb) (QC): 4 4 Steps (QC): 4 12 Steps (QC): 88 Picking up an Object (QC): 88 Wheel 50 feet with 2 turns (QC: 88 Wheel 150 feet: 88 PT Plan Treatment/Plan Treatment Plan: Continue Plan of Care Treatment Plan: Bed Mobility, Education, Functional Activity Fern, Functional Strength, Group Therapy, Gait, Safety, Therapeutic Exercise, Transfers Treatment Duration: April 03, 2020 Frequency: At least 5 of 7 days/Wk (IRF) Estimated Hrs Per Day: 1.5 hours per day Patient and/or Family Agrees t: Yes Time/GCodes Time In: 105 Time Out: 120 Total Billed Treatment Time: 15 Total Billed Treatment 1, ther ex 15' MOISÉS EMERSON CPTA Mar 25, 2020 14:54
[2020-03-25 15:33] VITALS: BP 147/97
--- NOTE | 2020-03-25 15:45 | NUR ---
patient wakes up from nap, vomiting 500cc. ileostomy bag leaking onto dressing. patient cleaned up, oral cares given. ileostomy area cleansed, dried, new wafer & bag applied per protocol. dressing changed, area cleansed with sterile water, then with alcohol swabs. 6 balbina at bottom of incision no longer holding incision. contacted Dr. Ji, orders rec'd. 6 balbina removed per orders rec'd. area cleansed with alcohol swab, folded 4x4 gauze applied to top of incision, covered with island dressing. pt given IV zofran per MAR @ 1600. requests 'no supper' at this time. supper ordered, held in fridge for later consumption. will con't to monitor.
--- NOTE | 2020-03-25 15:45 | NUR ---
pt wakes up vomiting. 500cc emesis, brown with small bits of food. ileostomy bag leaking onto dressing. pt cleaned up, oral cares given. ileostomy and dressing changed. Dr. Ji notified, some balbina no longer intact, orders rec'd. 6 balbina removed from lower surgical site. area cleansed with sterile water et then alcohol swabs. folded 4x4 gauze placed with island dressing on top of abdominal incision. new wafer and bag placed over ileostomy. IV zofran given per JAN. will con't to monitor.
[2020-03-25 17:46] VITALS: BP_SYST 116; BP_SYST 126; BP_DIAS 81; BP_DIAS 87
[2020-03-25 21:04] VITALS: BP 120/82
[2020-03-26 05:24] VITALS: BP 129/79
[2020-03-26] MEDS: CATHETER FLUSH 10 ML SYR IV SCH ×3 (06:06→21:20)
[2020-03-26] MEDS: [UNRECOGNIZED DRUG - OTHER] PO SCH ×16 (06:07→21:19)
[2020-03-26] MEDS: NYSTATIN PO SCH ×16 (06:07→21:19)
[2020-03-26] MEDS: PREDNISOLONE PO SCH ×16 (06:07→21:19)
[2020-03-26] MEDS: PANTOPRAZOLE 40 MG (PROTONIX) TAB PO SCH (08:12)
[2020-03-26] MEDS: meTOprolol TARTRATE 50 MG (LOPRESSOR) TAB PO SCH ×2 (08:12→21:20)
[2020-03-26] MEDS: NYSTATIN ORAL SUSP 5 ML UDC PO SCH ×4 (08:13→21:23)
[2020-03-26] MEDS: ASPIRIN E.C. 81 MG (ECOTRIN) TAB PO SCH (08:13)
[2020-03-26] MEDS: CLOPIDOGREL 75 MG (PLAVIX) TABLET PO SCH (08:13)
[2020-03-26] MEDS: SENNA W/DOCUSATE (SENOKOT S) TABLET PO SCH ×2 (08:58→20:04)
[2020-03-26] MEDS: polyethylene glycoL POWDER 17 GM (MIRALAX) PACK PO SCH ×2 (08:58→20:04)
[2020-03-26] MEDS: DOCUSATE SODIUM 100 MG (COLACE) CAP PO SCH ×2 (08:58→20:04)
--- NOTE | 2020-03-26 09:05 | Cardiology Progress Note ---
Subjective Date Seen by Provider: Mar 26, 2020 Time Seen by Provider: 08:20 Subjective/Events-last exam Patient is up doing ADL's. Denies any new complaints. Denies any chest pain or dyspnea. Review of Systems General: No Chills, No Night Sweats, No Fatigue, No Malaise, No Appetite, No Other HEENT: No Head Aches, No Visual Changes, No Eye Pain, No Ear Pain, No Dysphasia, No Sinus Congestion, No Post Nasal Drip, No Sore Throat, No Other Pulmonary: No Dyspnea, No Cough, No Pleuritic Chest Pain, No Other Cardiovascular: No: Chest Pain, Palpitations, Orthopnea, Paroxysmal Noc. Dyspnea, Edema, Lt Headedness, Other Objective-Cardiology Exam Last Set of Vital Signs Vital Signs 03/26/20 05:24 Temp 36.7 Pulse 100 Resp 16 B/P (MAP) 129/79 (96) Pulse Ox 97 O2 Delivery Room Air Capillary Refill : Less Than 3 Seconds I&O Intake and Output 03/26/20 00:00 Intake Total 1100 ml Output Total 2830 ml Balance -1730 ml Intake Oral 1100 ml Output Urine Total 1330 ml Stool Total 1000 ml Emesis 500 ml General: Alert, Oriented X3, Cooperative HEENT: Atraumatic, PERRLA Neck: Supple, No JVD, No Thyromegaly Lungs: Clear to Auscultation, Normal Air Movement Heart: Normal S1, Normal S2, Other (tachycardia) Abdomen: Soft, No Tenderness Extremities: No Clubbing, No Edema, Normal Pulses Skin: No Rashes, No Significant Lesion Neuro: Normal Gait, Normal Speech, Cranial Nerves 3-12 NL Psych/Mental Status: Mental Status NL, Mood NL A/P-Cardiology Admission Diagnosis CAD Sinus tachycardia Anemia ischemic bowel s/p colectomy Assessment/Plan CAD, h/o stenting at [facility] in Oct 2019. Last card cath on 03/05/20: patent stents in the mid left circumflex and the mid right coronary arteries. There is moderate diffuse disease of all coronary arteries. There is moderately severe diffuse disease of the distal left anterior descending. A small caliber obtuse marginal has 70% to 80% ostial stenosis. Normal left ventricular end- diastolic pressure. Echo of 03/05/20: LVEF 60-65%, mild to mod TR, RVSP 35-40 mmHg, mild dilatation of LA. Continue on Plavix and ASA. Sinus tachycardia, continue on beta nadeem S/p colectomy for intestinal obstruction Marked post-op anemia, s/p transfusion, managed by the [facility]. H/H stable, continue to monitor closely. Hypokalemia, corrected, continue to monitor Post-op hypotension and EMIGDIO 2, resolved Patient was seen and evaluated with Jossy, examination performed, management plan was discussed, agree with the current scribed note, I made few changes to the note using Italic font Patient was seen at bedside, laying down comfortably Had some nausea and vomiting yesterday, feeling better today Continue on current medication continue to monitor, monitor blood pressure and H&H Clinical Quality Measures DVT/VTE Risk/Contraindication: Risk Factor Score Per Nursin RFS Level Per Nursing on Admit: 4+=Very High JOSSY RASCON Mar 26, 2020 9:05 am MALLORY MELLO MD Mar 26, 2020 10:16 am
--- NOTE | 2020-03-26 09:30 | Occupational Ther Daily Note ---
OT Current Status-Daily Note Subjective Pt agreed to OT tx with focus on ADLs, requesting to shower today. Pt did not verbalize any pain during tx. Mental Status/Objective Patient Orientation: Normal For Age Attachments: Colostomy/Ileostomy ADL-Treatment Therapy Code Descriptions/Definitions Functional [place] Measure: 0=Not Assessed/NA 4=Minimal Assistance 1=Total Assistance 5=Supervision or Setup 2=Maximal Assistance 6=Modified [place] 3=Moderate Assistance 7=Complete IndependenceSCALE: Activities may be completed with or without assistive devices. 3-Yskomcdlwv-kbhoahg completes the activity by him/herself with no assistance from a helper. 5-Set-up or Clean-up Assistance-helper sets up or cleans up; patient completes activity. [place] assists only prior to or following the activity. 4-Supervision or Touching Assistance-helper provides verbal cues and/or touching/steadying and/or contact guard assistance as patient completes activity. Assistance may be provided throughout the activity or intermittently. 3-Partial/Moderate Assistance-helper does LESS THAN HALF the effort. [place] lifts, holds or supports trunk or limbs, but provides less than half the effort. 2-Substantial/Maximal Assistance-helper does MORE THAN HALF the effort. [place] lifts or holds trunk or limbs and provides more than half the effort. 5-Yctxhbght-mumsyi does ALL the effort. Patient does none of the effort to complete the activity. Or, the assistance of 2 or more helpers is required for the patient to complete the activity. If activity was not attempted, code reason: 7-Patient Refused. 9-Not Applicable-not attempted and the patient did not perform the activity before the current illness, exacerbation or injury. 10-Not Attempted due to Environmental Limitations-(lack of equipment, weather restraints, etc.). 88-Not Attempted due to Medical Conditions or Safety Concerns. Oral Hygiene (QC): 6 (seated at sink) Shower/Bathe Self (QC): 4 (SBA, OT covered IV and dressing prior to shower. Pt completed all parts of shower with SBA during stand at GB) Upper Body Dressing (QC): 5 (set up) Lower Body Dressing (QC): 4 (SBA) Toileting Hygiene (QC): 3 (Min A emptying ostomy, OT held container as pt emptied contents of ostomy bag. SBA with urination only.) Toilet Transfer (QC): 4 (SBA) Other Treatment Pt seated in chair with arm rests, agreeable to OT. Pt transferred to chair in restroom to empty ostomy, then stated she needed to use the restroom. She then completed showering and dressing seated on SC. Pt then sat at sink to complete oral hygiene and shaving. Pt transferred to sit EOB then to supine with SBA. Post OT session, pt laying in bed, call light in reach and all needs met. Education OT Patient Education: Correct positioning, Energy conservation, Modified ADL techniques, Progress toward Goal/Update tx plan, Purpose of tx/functional activities Teaching Recipient: Patient Teaching Methods: Discussion Response to Teaching: Verbalize Understanding OT Short Term Goals Short Term Goals Upper body dressin Lower body dressin Putting on/taking off footwear: 5 OT Clerical Supervisor Goals Retirement Goals Time Frame: March 27, 2020 Eating (QC): 6 Oral Hygiene (QC): 6 Toileting Hygiene (QC): 6 Shower/Bathe Self (QC): 6 Upper Body Dressing (QC): 6 Lower Body Dressing (QC): 6 On/Off Footwear (QC): 6 Additional Goals: 1-Demonstrate ADL Tasks, 2-Verbalize Understanding, 3- ImproveStrength/Fern 1=Demonstrate adherence to instructed precautions during ADL tasks. 2=Patient will verbalize/demonstrate understanding of assistive devices/modifications for ADL. 3=Patient will improve strength/tolerance for activity to enable patient to perform ADL's. OT Education/Plan Problem List/Assessment Assessment: Decreased Activ Tolerance, Decreased UE Strength, Impaired I ADL's, Impaired Self-Care Skills Discharge Recommendations Plan/Recommendations: Continue POC Treatment Plan/Plan of Care Treatment,Training & Education: Yes Patient would benefit from OT for education, treatment and training to promote independence in ADL's, mobility, safety and/or upper extremity function for ADL's. Plan of Care: ADL Retraining, Concurrent Therapy, Functional Mobility, Group Exercise/Act as Ind, UE Funct Exercise/Act Treatment Duration: March 27, 2020 Frequency: At least 5 of 7 days/Wk (IRF) Estimated Hrs Per Day: 1.5 hours per day Agreement: Yes Rehab Potential: Fair Time/GCodes Start Time: 08:00 Stop Time: 09:30 Total Time Billed (hr/min): 90 Billed Treatment Time 1, ADL 6 SHAVON BARTLETT OT Mar 26, 2020 09:30
[2020-03-26] MEDS: NYSTATIN CREAM (MYCOSTATIN) 30 GM TUBE TP SCH ×2 (09:40→21:20)
[2020-03-26] MEDS: MICONAZOLE 2% POWDER (DESENEX AF) 90 GM TOP SCH ×2 (09:40→21:20)
--- NOTE | 2020-03-26 10:10 | PM&R Progress Note ---
Subjective HPI/CC On Admission Date Seen by Provider: Mar 26, 2020 Time Seen by Provider: 10:15 Subjective/Events-last exam Dressing was changed and everything looks good per nursing report She is supposed to eat some small frequent meals but she did have an emesis episode again at 3pm yesterday Will try to initiate Zofran prior to 3 o'clock to see if that can martin emesis She is dumping her ileostomy bag on her own now No significant falls and no pain Checked meds and labs Conferred with RN Reviewed therapy notes Review of Systems General: Fatigue Gastrointestinal: Nausea, Vomiting, Abdominal Pain Objective Exam Vital Signs Vital Signs Date Time Temp Pulse Resp B/P (MAP) Pulse Ox O2 Delivery O2 Flow Rate FiO2 03/27/20 05:46 35.8 84 20 122/84 (97) 99 Room Air Capillary Refill : Less Than 3 Seconds General Appearance: No Apparent Distress, Anxious, Chronically ill HEENT: PERRL/EOMI, Normal ENT Inspection, Pharynx Normal, Moist Mucous Membranes Neck: Full Range of Motion, Non Tender, Supple Respiratory: Chest Non Tender, Lungs Clear, No Accessory Muscle Use, No Respiratory Distress, Decreased Breath Sounds Cardiovascular: Regular Rate, Rhythm, No Gallop, No JVD, No Murmur Gastrointestinal: Normal Bowel Sounds, No Organomegaly, No Pulsatile Mass, Soft, Tenderness Back: Normal Inspection, No CVA Tenderness, No Vertebral Tenderness Extremity: Pedal Edema (2+ legs) Neurologic/Psychiatric: Alert, Oriented x3, business administration instructor II-XII Norm as Tested, Depressed Affect, Motor Weakness (generalized all extremties) Skin: Normal Color Lymphatic: No Adenopathy Results/Procedures Lab Laboratory Tests 03/27/20 05:45 Patient resulted labs reviewed. FIM Transfers Therapy Code Descriptions/Definitions Functional [place] Measure: 0=Not Assessed/NA 4=Minimal Assistance 1=Total Assistance 5=Supervision or Setup 2=Maximal Assistance 6=Modified [place] 3=Moderate Assistance 7=Complete IndependenceSCALE: Activities may be completed with or without assistive devices. 8-Jauzsaftyk-lyobsnm completes the activity by him/herself with no assistance from a helper. 5-Set-up or Clean-up Assistance-helper sets up or cleans up; patient completes activity. [place] assists only prior to or following the activity. 4-Supervision or Touching Assistance-helper provides verbal cues and/or touching/steadying and/or contact guard assistance as patient completes activity. Assistance may be provided throughout the activity or intermittently. 3-Partial/Moderate Assistance-helper does LESS THAN HALF the effort. [place] lifts, holds or supports trunk or limbs, but provides less than half the effort. 2-Substantial/Maximal Assistance-helper does MORE THAN HALF the effort. [place] lifts or holds trunk or limbs and provides more than half the effort. 7-Jcrhlcmmb-dfxljp does ALL the effort. Patient does none of the effort to complete the activity. Or, the assistance of 2 or more helpers is required for the patient to complete the activity. If activity was not attempted, code reason: 7-Patient Refused. 9-Not Applicable-not attempted and the patient did not perform the activity before the current illness, exacerbation or injury. 10-Not Attempted due to Environmental Limitations-(lack of equipment, weather restraints, etc.). 88-Not Attempted due to Medical Conditions or Safety Concerns. Roll Left to Right (QC): 6 Sit to Lying (QC): 6 Sit to Stand (QC): 6 Chair/Xyu-na-Zfccx Xfer(QC): 6 Car Transfer (QC): 5 Gait Training Does the Patient Walk?: Yes Distance: 250 Walk 10 feet (QC): 5 Walk 50 ft with 2 Turns(QC): 5 Walk 150 ft (QC): 5 Walking 10ft/uneven surface-QC: 4 Gait Persons Needed: 1 Gait Assistive Device: FWW Wheelchair Training Does the Pt Use a Wheelchair?: No Wheel 50 ft with 2 turns (QC): 9 Wheel 150 ft (QC): 9 Stair Training Stair Training: Handrails/: uses walker #of Steps: 2 1 Step (curb) (QC): 4 4 Steps (QC): 88 12 Steps (QC): 88 Stairs: Pattern: Step to Balance Picking up an Object (QC): 88 ADL-Treatment Eating (QC): 6 (per pt report she had no difficulties eating breakfast.) Oral Hygiene (QC): 6 (seated at sink) Shower/Bathe Self (QC): 4 (SBA, OT covered IV and dressing prior to shower. Pt completed all parts of shower with SBA during stand at GB) Upper Body Dressing (QC): 5 (set up) Lower Body Dressing (QC): 4 (SBA) On/Off Footwear (QC): 3 (SBA with socks, min A due to OT donning TEDhose.) Toileting Hygiene (QC): 3 (Min A emptying ostomy, OT held container as pt emptied contents of ostomy bag. SBA with urination only.) Toilet Transfer (QC): 4 (SBA) Assessment/Plan Assessment and Plan Assess & Plan/Chief Complaint Assessment: Debility s/p critical illness and VDRF 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 Anasarca Hirsutism Poor albumin level improving with good nutrition Sore mouth added Nystatin and Magic mouthwash resolving s/p fever Zosyn added by Dr Taveras empirically now DC Ascites s/p paracentesis just bloody serous NGTD Anemia s/p transfusions 2 units 03/17/20 now hgb 10 with iron infusions completing Situational depression Emesis Plan: Mouth treatment is improving status IRF protocol Lab monitored Check labs periodically Wound care to iliostomy site Paracentesis completed Emesis treatment (1) S/P colectomy (2) Ileostomy in place (3) Hirsutism (4) Tachycardia (5) Anasarca (6) Anemia (7) Debility (8) Sigmoid volvulus (9) Leukocytosis (10) Acute kidney injury (11) Hyponatremia (12) Coronary artery disease (13) Abdominal pain Status: Acute (14) Elevated troponin (15) S/P cardiac cath SESAR BEEBE DO Mar 26, 2020 10:09
--- NOTE | 2020-03-26 10:32 | Occ Therapy Rehab Re-Cert ---
OT Re-Certification Form Plan of Care: ADL Retraining, Concurrent Therapy, Functional Mobility, Group Exercise/Act as Ind, UE Funct Exercise/Act Pt's goals remain the same with time frame extended. Frequency: At least 5 of 7 days/Wk (IRF) Estimated Hrs Per Day: 1.5 hours per day Agreement: Yes Rehab Potential: Good OT Short Term Goals Short Term Goals Upper body dressin Lower body dressin Putting on/taking off footwear: 5 OT Mcfp Goals Credit Investigator Goals Time Frame: April 08, 2020 Eating (QC): 6 Oral Hygiene (QC): 6 Toileting Hygiene (QC): 6 Shower/Bathe Self (QC): 6 Upper Body Dressing (QC): 6 Lower Body Dressing (QC): 6 On/Off Footwear (QC): 6 Additional Goals: 1-Demonstrate ADL Tasks, 2-Verbalize Understanding, 3- ImproveStrength/Fern 1=Demonstrate adherence to instructed precautions during ADL tasks. 2=Patient will verbalize/demonstrate understanding of assistive devices/modifications for ADL. 3=Patient will improve strength/tolerance for activity to enable patient to perform ADL's. SHAVON BARTLETT OT Mar 26, 2020 10:31
--- NOTE | 2020-03-26 13:03 | Physical Therapy Daily Note ---
PT Daily Note-Current Subjective Pt. in bed and agrees to therapy. No voiced complaints. Mental Status Patient Orientation: Person, Place, Time, Situation Transfers SCALE: Activities may be completed with or without assistive devices. 9-Xbvhhefusg-izrzzfo completes the activity by him/herself with no assistance from a helper. 5-Set-up or Clean-up Assistance-helper sets up or cleans up; patient completes activity. [place] assists only prior to or following the activity. 4-Supervision or Touching Assistance-helper provides verbal cues and/or touching/steadying and/or contact guard assistance as patient completes activity. Assistance may be provided throughout the activity or intermittently. 3-Partial/Moderate Assistance-helper does LESS THAN HALF the effort. [place] lifts, holds or supports trunk or limbs, but provides less than half the effort. 2-Substantial/Maximal Assistance-helper does MORE THAN HALF the effort. [place] lifts or holds trunk or limbs and provides more than half the effort. 0-Nlnfhwcok-izipel does ALL the effort. Patient does none of the effort to complete the activity. Or, the assistance of 2 or more helpers is required for the patient to complete the activity. If activity was not attempted, code reason: 7-Patient Refused. 9-Not Applicable-not attempted and the patient did not perform the activity before the current illness, exacerbation or injury. 10-Not Attempted due to Environmental Limitations-(lack of equipment, weather restraints, etc.). 88-Not Attempted due to Medical Conditions or Safety Concerns. Lying to Sitting/Side of Bed(Q: 6 Sit to Stand (QC): 6 Weight Bearing Right Lower Extremity: Right Full Weight Bearing Left Lower Extremity: Left Full Weight Bearing Gait Training Does the Patient Walk?: Yes Distance: x 125 ft, x 300 ft Walk 150 ft (QC): 4 Gait Persons Needed: 1 Gait Assistive Device: FWW SBA needed, slow gait speed but overall steady Exercises Seated Therapy Exercises: Ankle pumps, Sit to stand, Long arc quads, Hip flexion Seated Reps: 20 Standing: Hip Abduction, Hamstring curls, Heel/toe raises, Marching, Side steps, Step-ups Standing Reps: 20 NuStep Minutes: 20 NuStep Workload: 5 Treatments gait training and LE ROM and strengthening exercises Assessment Current Status: Good Progress Able to increase ambulation distance today. Pt. fatigues with gait but has no LOB. Pt. does well with LE strengthening exercises, no c/o throughout session. She is progressing very well with therapy. PT Short Term Goals Short Term Goals Time Frame: Mar 20, 2020 Roll Left & Right: 3 Sit to lyin Lying to sitting on side of be: 3 Sit to stand: 4 Chair/sik-dv-okqjy transfer: 4 Walk 10 feet: 4 Walk 50 feet with two turns: 4 Walk 150 feet: 4 PT Residential Goals Residential Goals PT Residential Goals Time Frame: April 03, 2020 Roll Left & Right (QC): 6 Sit to Lying (QC): 6 Lying-Sitting on Side/Bed(QC): 6 Sit to Stand (QC): 6 Chair/Prq-oi-Bdagy Xfer(QC): 6 Toilet Transfer (QC): 6 Car Transfer (QC): 6 Does the Patient Walk: Yes Walk 10 feet (QC): 6 Walk 50ft with 2 Turns (QC): 6 Walk 150 ft (QC): 6 Walking 10ft on Uneven Surface: 6 1 Step (curb) (QC): 4 4 Steps (QC): 4 12 Steps (QC): 88 Picking up an Object (QC): 88 Wheel 50 feet with 2 turns (QC: 88 Wheel 150 feet: 88 PT Plan Treatment/Plan Treatment Plan: Continue Plan of Care Treatment Plan: Bed Mobility, Education, Functional Activity Fern, Functional Strength, Group Therapy, Gait, Safety, Therapeutic Exercise, Transfers Treatment Duration: April 03, 2020 Frequency: At least 5 of 7 days/Wk (IRF) Estimated Hrs Per Day: 1.5 hours per day Patient and/or Family Agrees t: Yes Time/GCodes Time In: 1030 Time Out: 1140 Total Billed Treatment Time: 70 Total Billed Treatment 1, GT 10', Ex 60' CHE RDZ PT Mar 26, 2020 13:03
--- NOTE | 2020-03-26 13:08 | Physical Therapy Daily Note ---
PT Daily Note-Current Subjective Pt. in bed, states she is tired, requests bed exercises. Mental Status Patient Orientation: Person, Place, Time, Situation Transfers SCALE: Activities may be completed with or without assistive devices. 8-Wrxcallwyq-qtalesi completes the activity by him/herself with no assistance from a helper. 5-Set-up or Clean-up Assistance-helper sets up or cleans up; patient completes activity. [place] assists only prior to or following the activity. 4-Supervision or Touching Assistance-helper provides verbal cues and/or touching/steadying and/or contact guard assistance as patient completes activity. Assistance may be provided throughout the activity or intermittently. 3-Partial/Moderate Assistance-helper does LESS THAN HALF the effort. [place] lifts, holds or supports trunk or limbs, but provides less than half the effort. 2-Substantial/Maximal Assistance-helper does MORE THAN HALF the effort. [place] lifts or holds trunk or limbs and provides more than half the effort. 7-Ortbglpuu-yzltcn does ALL the effort. Patient does none of the effort to complete the activity. Or, the assistance of 2 or more helpers is required for the patient to complete the activity. If activity was not attempted, code reason: 7-Patient Refused. 9-Not Applicable-not attempted and the patient did not perform the activity before the current illness, exacerbation or injury. 10-Not Attempted due to Environmental Limitations-(lack of equipment, weather restraints, etc.). 88-Not Attempted due to Medical Conditions or Safety Concerns. Weight Bearing Right Lower Extremity: Right Full Weight Bearing Left Lower Extremity: Left Full Weight Bearing Exercises Supine Ex: Ankle pumps, Quad Set, Glut sets, Lower trunk rotation, Heel Slides, Short Arc Quads, Straight leg raise, Hip abd/add Supine Reps: 20 Treatments LE exercises Assessment Current Status: Good Progress Pt. does well with LE exercises, completes through full ROM and without c/o pain. Pt. in bed post session with call light and all needs met. PT Short Term Goals Short Term Goals Time Frame: Mar 20, 2020 Roll Left & Right: 3 Sit to lyin Lying to sitting on side of be: 3 Sit to stand: 4 Chair/qjb-rg-pnxie transfer: 4 Walk 10 feet: 4 Walk 50 feet with two turns: 4 Walk 150 feet: 4 PT Shelter Goals Shelter Goals PT Shelter Goals Time Frame: April 03, 2020 Roll Left & Right (QC): 6 Sit to Lying (QC): 6 Lying-Sitting on Side/Bed(QC): 6 Sit to Stand (QC): 6 Chair/Ozi-nn-Slqub Xfer(QC): 6 Toilet Transfer (QC): 6 Car Transfer (QC): 6 Does the Patient Walk: Yes Walk 10 feet (QC): 6 Walk 50ft with 2 Turns (QC): 6 Walk 150 ft (QC): 6 Walking 10ft on Uneven Surface: 6 1 Step (curb) (QC): 4 4 Steps (QC): 4 12 Steps (QC): 88 Picking up an Object (QC): 88 Wheel 50 feet with 2 turns (QC: 88 Wheel 150 feet: 88 PT Plan Treatment/Plan Treatment Plan: Continue Plan of Care Treatment Plan: Bed Mobility, Education, Functional Activity Fern, Functional Strength, Group Therapy, Gait, Safety, Therapeutic Exercise, Transfers Treatment Duration: April 03, 2020 Frequency: At least 5 of 7 days/Wk (IRF) Estimated Hrs Per Day: 1.5 hours per day Patient and/or Family Agrees t: Yes Time/GCodes Time In: 1300 Time Out: 1320 Total Billed Treatment Time: 20 Total Billed Treatment 1, Ex 20' CHE RDZ PT Mar 26, 2020 13:08
--- NOTE | 2020-03-26 13:33 | NUR ---
"RD ASSESSMENT PMHx: hypercholesterolemia; HTN; [place] PT INTERACTION: Pt was awake and pleasant during nutrition follow-up. Pt states she has been eating okay since last assessment. Note avg PO intake 40% x3d, per chart review. Pt states issues with nausea and vomiting since last assessment. Note 1 episode of emesis on 03/25, per chart review. Pt states no issues with her ileostomy. Note pt currently on bowel regimen of colace BID; senna BID; and miralax BID, per chart review. ABNORMAL NUTRITION-RELATED LAB VALUES LOW: alb 2.7; Ca 8.2 HIGH: Cl 112; alkphos 158 Est. kcal needs: 0931-3250 kcal | 25-30 kcal/kg Est. Pro needs: 63-76 g Pro | 1.0-1.2 g Pro/kg PES STATEMENT: Inadequate oral intake (NI-2.1) related to loss of appetite | nausea | vomiting as evidenced by pt interview | avg PO intake 40% x3d INTERVENTION: Continue with current diet order of DYS2 Mechanically Altered diet. Continue with current supplementation order of Ensure Enlive (vary) with meals TID, for increased kcal intake. Provides 350 kcal and 13 g Pro per serving. Encouraged pt to eat when able. Will continue to follow and reassess as pt needs, intake, and status change. MONITOR/EVALUATE: PO Intake; Plan of Care; Hydration Status; Weight Status; Lab Values Camron Rogers, MS, RD, LD"
--- NOTE | 2020-03-26 15:15 | NUR ---
Ileostomy appliance changed d/t leaking out of side. Patient was being assisted to bathroom when appliance lost adherence to skin. Patient cleaned up, new clothing provided. Appliance and bag changed. Dressing to Abdomen changed as a small amount of ileostomy matter leaked onto outside of bandage.
--- NOTE | 2020-03-26 15:24 | NUR ---
CM/SS WEEKLY TEAM CONFERENCE SUMMARY Met with patient this a.m. and had followup conversation with her DPOA-HC/caregiver Donna Perez. The plan remains patient will go to Donna's home for respite until able to return home alone. Both were informed of the tentative proposed discharge date of 03/30/20. Patient expressed her reluctance and that she felt if she had another week, like next Monday or , she would hopefully feel better and stronger. Physician aware per her rounds/notes today. Positive progress with patient performing more of her ileostomy care independently with staff on standby. Donna expressed concerns about patients incision and healing/dressing, inquired with Unit RN who then contacted Donna by phone to answer questions. [employer] has delivered ostomy supplies for patient to Donna's home. HHC: Will need [facility] because of patient's uninsured status, RN PT OT planned. FINANCIAL: Financial Services FS indicate patient is not eligible for Medicaid because of savings balance. Patient can file for disability on her own, FS is providing phone number to initiate. Patient may need Rx assist for post hospital care plan.
[2020-03-26 16:28] VITALS: BP 115/85
[2020-03-27] MEDS: CATHETER FLUSH 10 ML SYR IV SCH ×3 (04:03→21:23)
[2020-03-27] MEDS: NYSTATIN PO SCH ×16 (05:17→21:18)
[2020-03-27] MEDS: PREDNISOLONE PO SCH ×16 (05:17→21:18)
[2020-03-27] MEDS: [UNRECOGNIZED DRUG - OTHER] PO SCH ×16 (05:17→21:18)
[2020-03-27 05:46] VITALS: BP 122/84
[2020-03-27 05:59] LABS: BASOPHILS % (AUTO) 0 % (0-10); EOSINOPHILS # (AUTO) 0.2 10^3/uL (0.0-0.3); EOSINOPHILS % (AUTO) 2 % (0-10); HEMATOCRIT 34 % (35-52); HEMOGLOBIN 10.8 G/DL (11.5-16.0); LYMPHOCYTES # (AUTO) 0.9 X 10^3 (1.0-4.0); LYMPHOCYTES % (AUTO) 9 % (12-44); MEAN CORPUSCULAR HEMOGLOBIN 27 PG (25-34); MEAN CORPUSCULAR HGB CONC 32 G/DL (32-36); MEAN CORPUSCULAR VOLUME 85 FL (80-99); MEAN PLATELET VOLUME 8.6 FL (7.4-10.4); MONOCYTES # (AUTO) 1.1 X 10^3 (0.0-1.0); MONOCYTES % (AUTO) 11 % (0-12); NEUTROPHILS # (AUTO) 7.3 X 10^3 (1.8-7.8); NEUTROPHILS % (AUTO) 77 % (42-75); PLATELET COUNT 469 10^3/uL (130-400); RED CELL DISTRIBUTION WIDTH 19.9 % (10.0-14.5); WHITE BLOOD COUNT 9.5 10^3/uL (4.3-11.0)
[2020-03-27 06:19] LABS: BILIRUBIN,TOTAL 0.7 MG/DL (0.1-1.0); CALCIUM 8.6 MG/DL (8.5-10.1); CREATININE SERUM 1.81 MG/DL (0.60-1.30); POTASSIUM 4.8 MMOL/L (3.6-5.0); TOTAL PROTEIN 7.8 GM/DL (6.4-8.2)
[2020-03-27 08:08] VITALS: BP 108/78
[2020-03-27] MEDS: NYSTATIN ORAL SUSP 5 ML UDC PO SCH ×4 (08:09→21:19)
[2020-03-27] MEDS: meTOprolol TARTRATE 50 MG (LOPRESSOR) TAB PO SCH ×2 (08:09→21:25)
[2020-03-27] MEDS: CLOPIDOGREL 75 MG (PLAVIX) TABLET PO SCH (08:09)
[2020-03-27] MEDS: PANTOPRAZOLE 40 MG (PROTONIX) TAB PO SCH (08:09)
[2020-03-27] MEDS: ASPIRIN E.C. 81 MG (ECOTRIN) TAB PO SCH (08:09)
[2020-03-27] MEDS: DOCUSATE SODIUM 100 MG (COLACE) CAP PO SCH ×2 (09:00→21:24)
[2020-03-27] MEDS: polyethylene glycoL POWDER 17 GM (MIRALAX) PACK PO SCH ×2 (09:00→21:24)
[2020-03-27] MEDS: MICONAZOLE 2% POWDER (DESENEX AF) 90 GM TOP SCH ×2 (09:00→21:23)
[2020-03-27] MEDS: NYSTATIN CREAM (MYCOSTATIN) 30 GM TUBE TP SCH ×2 (09:00→21:24)
[2020-03-27] MEDS: SENNA W/DOCUSATE (SENOKOT S) TABLET PO SCH ×2 (09:00→21:25)
--- NOTE | 2020-03-27 09:49 | Physical Therapy Daily Note ---
PT Daily Note-Current Subjective Pt EOB, agreeable. Reports "I finally slept really well last night". Mental Status Patient Orientation: Person, Place, Time, Situation Attachments: Colostomy/Ileostomy Transfers SCALE: Activities may be completed with or without assistive devices. 0-Hytcqreizw-dhmfjjn completes the activity by him/herself with no assistance from a helper. 5-Set-up or Clean-up Assistance-helper sets up or cleans up; patient completes activity. [place] assists only prior to or following the activity. 4-Supervision or Touching Assistance-helper provides verbal cues and/or touching/steadying and/or contact guard assistance as patient completes activity. Assistance may be provided throughout the activity or intermittently. 3-Partial/Moderate Assistance-helper does LESS THAN HALF the effort. [place] lifts, holds or supports trunk or limbs, but provides less than half the effort. 2-Substantial/Maximal Assistance-helper does MORE THAN HALF the effort. [place] lifts or holds trunk or limbs and provides more than half the effort. 4-Ludkkmlfd-ydycnk does ALL the effort. Patient does none of the effort to complete the activity. Or, the assistance of 2 or more helpers is required for the patient to complete the activity. If activity was not attempted, code reason: 7-Patient Refused. 9-Not Applicable-not attempted and the patient did not perform the activity before the current illness, exacerbation or injury. 10-Not Attempted due to Environmental Limitations-(lack of equipment, weather restraints, etc.). 88-Not Attempted due to Medical Conditions or Safety Concerns. Sit to Stand (QC): 6 Weight Bearing Right Lower Extremity: Right Full Weight Bearing Left Lower Extremity: Left Full Weight Bearing Gait Training Does the Patient Walk?: Yes Distance: 250 Walk 10 feet (QC): 5 Walk 50 ft with 2 Turns(QC): 5 Walk 150 ft (QC): 5 Gait Persons Needed: 1 Gait Assistive Device: FWW Pt ambulates with slow but steady gait with FWW. Wheelchair Training Does the Pt Use a Wheelchair?: No Stair Training Stair Training: Handrails/: 2 handrails #of Steps: 4 4 Steps (QC): 4 Stairs: Pattern: Reciprocal Exercises Seated Therapy Exercises: Ankle pumps, Long arc quads, Hip flexion, Hip abd/add NuStep Minutes: 15 NuStep Workload: 4 Treatments LE functional strengthening, gait with FWW, gait on stairs. Returned to room with all needs met. Assessment Current Status: Good Progress Pt has made good progress with PT, (I) with functional mobility improving steadily. PT Short Term Goals Short Term Goals Time Frame: Mar 20, 2020 Roll Left & Right: 3 Sit to lyin Lying to sitting on side of be: 3 Sit to stand: 4 Chair/eil-gp-dxkke transfer: 4 Walk 10 feet: 4 Walk 50 feet with two turns: 4 Walk 150 feet: 4 PT Usp Goals Usp Goals PT Hyperbaric Technologist Goals Time Frame: April 03, 2020 Roll Left & Right (QC): 6 Sit to Lying (QC): 6 Lying-Sitting on Side/Bed(QC): 6 Sit to Stand (QC): 6 Chair/Lyx-my-[place] Xfer(QC): 6 Toilet Transfer (QC): 6 Car Transfer (QC): 6 Does the Patient Walk: Yes Walk 10 feet (QC): 6 Walk 50ft with 2 Turns (QC): 6 Walk 150 ft (QC): 6 Walking 10ft on Uneven Surface: 6 1 Step (curb) (QC): 4 4 Steps (QC): 4 12 Steps (QC): 88 Picking up an Object (QC): 88 Wheel 50 feet with 2 turns (QC: 88 Wheel 150 feet: 88 PT Plan Problem List Problem List: Activity Tolerance, Functional Strength, Balance, Gait, Transfer Treatment/Plan Treatment Plan: Continue Plan of Care Treatment Plan: Bed Mobility, Education, Functional Activity Fern, Functional Strength, Group Therapy, Gait, Safety, Therapeutic Exercise, Transfers Treatment Duration: April 03, 2020 Frequency: At least 5 of 7 days/Wk (IRF) Estimated Hrs Per Day: 1.5 hours per day Patient and/or Family Agrees t: Yes Time/GCodes Time In: 30 Time Out: 1030 Total Billed Treatment Time: 60 Total Billed Treatment 1, Ex x 35', FA x 25' JUAN ALBERTO DICKINSON DPRyan March 27, 2020 09:49
--- NOTE | 2020-03-27 10:47 | PM&R Progress Note ---
Subjective HPI/CC On Admission Date Seen by Provider: March 27, 2020 Time Seen by Provider: 10:45 Subjective/Events-last exam Creatinine 1.8 noted and sodium 130 Discussed the need to increase PO fluids and not plain water which could decrease sodium level dangerously Powerade and gatorade will be started IVF will be started She is dumping her ileostomy bag on her own now No significant falls and no pain Checked meds and labs Conferred with RN Reviewed therapy notes Review of Systems General: Fatigue Gastrointestinal: Abdominal Pain Objective Exam Vital Signs Vital Signs Date Time Temp Pulse Resp B/P (MAP) Pulse Ox O2 Delivery O2 Flow Rate FiO2 03/28/20 05:05 35.8 104 20 121/81 (94) 95 Room Air Capillary Refill : Less Than 3 Seconds General Appearance: No Apparent Distress, Anxious, Chronically ill HEENT: PERRL/EOMI, Normal ENT Inspection, Pharynx Normal, Moist Mucous Membranes Neck: Full Range of Motion, Non Tender, Supple Respiratory: Chest Non Tender, Lungs Clear, No Accessory Muscle Use, No Respiratory Distress, Decreased Breath Sounds Cardiovascular: Regular Rate, Rhythm, No Gallop, No JVD, No Murmur Gastrointestinal: Normal Bowel Sounds, No Organomegaly, No Pulsatile Mass, Soft, Tenderness Back: Normal Inspection, No CVA Tenderness, No Vertebral Tenderness Extremity: Pedal Edema (2+ legs) Neurologic/Psychiatric: Alert, Oriented x3, mechanical facilities technician II-XII Norm as Tested, Depressed Affect, Motor Weakness (generalized all extremties) Skin: Normal Color Lymphatic: No Adenopathy Results/Procedures Lab Patient resulted labs reviewed. FIM Transfers Therapy Code Descriptions/Definitions Functional [place] Measure: 0=Not Assessed/NA 4=Minimal Assistance 1=Total Assistance 5=Supervision or Setup 2=Maximal Assistance 6=Modified [place] 3=Moderate Assistance 7=Complete IndependenceSCALE: Activities may be completed with or without assistive devices. 3-Ddqsotrqsm-qbkyskj completes the activity by him/herself with no assistance from a helper. 5-Set-up or Clean-up Assistance-helper sets up or cleans up; patient completes activity. [place] assists only prior to or following the activity. 4-Supervision or Touching Assistance-helper provides verbal cues and/or touching/steadying and/or contact guard assistance as patient completes activity. Assistance may be provided throughout the activity or intermittently. 3-Partial/Moderate Assistance-helper does LESS THAN HALF the effort. [place] lifts, holds or supports trunk or limbs, but provides less than half the effort. 2-Substantial/Maximal Assistance-helper does MORE THAN HALF the effort. [place] lifts or holds trunk or limbs and provides more than half the effort. 1-Awhziycps-luikhq does ALL the effort. Patient does none of the effort to complete the activity. Or, the assistance of 2 or more helpers is required for the patient to complete the activity. If activity was not attempted, code reason: 7-Patient Refused. 9-Not Applicable-not attempted and the patient did not perform the activity before the current illness, exacerbation or injury. 10-Not Attempted due to Environmental Limitations-(lack of equipment, weather restraints, etc.). 88-Not Attempted due to Medical Conditions or Safety Concerns. Roll Left to Right (QC): 6 Sit to Lying (QC): 6 Sit to Stand (QC): 6 Chair/Gan-xy-Vdatp Xfer(QC): 6 Car Transfer (QC): 5 Gait Training Does the Patient Walk?: Yes Distance: 250 Walk 10 feet (QC): 5 Walk 50 ft with 2 Turns(QC): 5 Walk 150 ft (QC): 5 Walking 10ft/uneven surface-QC: 4 Gait Persons Needed: 1 Gait Assistive Device: FWW Wheelchair Training Does the Pt Use a Wheelchair?: No Wheel 50 ft with 2 turns (QC): 9 Wheel 150 ft (QC): 9 Stair Training Stair Training: Handrails/: 2 handrails #of Steps: 4 1 Step (curb) (QC): 4 4 Steps (QC): 4 12 Steps (QC): 88 Stairs: Pattern: Reciprocal Balance Picking up an Object (QC): 88 ADL-Treatment Eating (QC): 6 (per pt report she had no difficulties eating breakfast.) Oral Hygiene (QC): 6 (seated at sink) Shower/Bathe Self (QC): 4 (SBA, OT covered IV and dressing prior to shower. Pt completed all parts of shower with SBA during stand at GB) Upper Body Dressing (QC): 5 (set up) Lower Body Dressing (QC): 4 (SBA) On/Off Footwear (QC): 3 (SBA with socks, min A due to OT donning TEDhose.) Toileting Hygiene (QC): 3 (Min A emptying ostomy, OT held container as pt emptied contents of ostomy bag. SBA with urination only.) Toilet Transfer (QC): 4 (SBA) Assessment/Plan Assessment and Plan Assess & Plan/Chief Complaint Assessment: Debility s/p critical illness and VDRF 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 Anasarca Hirsutism Poor albumin level improving with good nutrition Sore mouth added Nystatin and Magic mouthwash resolving s/p fever Zosyn added by Dr Taveras empirically now DC Ascites s/p paracentesis just bloody serous NGTD Anemia s/p transfusions 2 units 03/17/20 now hgb 10 with iron infusions c ompleting Situational depression Emesis causing ARF and volume depletion giving gentle IVF 03/27/20 Plan: Mouth treatment is improving status IRF protocol Lab monitored Check labs periodically Wound care to iliostomy site Paracentesis completed Emesis treatment IVF today (1) S/P colectomy (2) Ileostomy in place (3) Hirsutism (4) Tachycardia (5) Anasarca (6) Anemia (7) Debility (8) Sigmoid volvulus (9) Leukocytosis (10) Acute kidney injury (11) Hyponatremia (12) Coronary artery disease (13) Abdominal pain Status: Acute (14) Elevated troponin (15) S/P cardiac cath SESAR BEEBE DO March 27, 2020 10:47
--- NOTE | 2020-03-27 11:00 | Occupational Ther Daily Note ---
OT Current Status-Daily Note Subjective Pt seated upright in chair, agreeable to OT tx stating she would like to take a shower today. She did not report any pain with tx. Mental Status/Objective Patient Orientation: Normal For Age Attachments: Colostomy/Ileostomy ADL-Treatment Therapy Code Descriptions/Definitions Functional [place] Measure: 0=Not Assessed/NA 4=Minimal Assistance 1=Total Assistance 5=Supervision or Setup 2=Maximal Assistance 6=Modified [place] 3=Moderate Assistance 7=Complete IndependenceSCALE: Activities may be completed with or without assistive devices. 4-Lkedfqvlwm-rfodgvz completes the activity by him/herself with no assistance from a helper. 5-Set-up or Clean-up Assistance-helper sets up or cleans up; patient completes activity. [place] assists only prior to or following the activity. 4-Supervision or Touching Assistance-helper provides verbal cues and/or touching/steadying and/or contact guard assistance as patient completes activity. Assistance may be provided throughout the activity or intermittently. 3-Partial/Moderate Assistance-helper does LESS THAN HALF the effort. [place] lifts, holds or supports trunk or limbs, but provides less than half the effort. 2-Substantial/Maximal Assistance-helper does MORE THAN HALF the effort. [place] lifts or holds trunk or limbs and provides more than half the effort. 8-Iubtebaxq-vupwuy does ALL the effort. Patient does none of the effort to complete the activity. Or, the assistance of 2 or more helpers is required for the patient to complete the activity. If activity was not attempted, code reason: 7-Patient Refused. 9-Not Applicable-not attempted and the patient did not perform the activity before the current illness, exacerbation or injury. 10-Not Attempted due to Environmental Limitations-(lack of equipment, weather restraints, etc.). 88-Not Attempted due to Medical Conditions or Safety Concerns. Oral Hygiene (QC): 6 (ind seated at sink) Shower/Bathe Self (QC): 4 (SBA during stand. Pt reports she does not feel comfortable enough standing without someone close by. She completed all parts.) Upper Body Dressing (QC): 5 (set up) Lower Body Dressing (QC): 4 (SBA) On/Off Footwear: 3 (Assist with tedhose. Pt able to doff/don socks with AE) Toileting Hygiene (QC): 3 (min A emptying ostomy bag seated in chair. OT held container as pt emptied contents, pt did not get bottom of bag completely shut, spilling some onto floor. OT assisted with clean up from accident.) Other Treatment Pt seated in chair, transferred to bathroom with FWW and SBA, pt then sat in chair to empty ostomy. Pt transferred to shower chair and then completed showering. Pt's ostomy bag had began leaking from the side. Nurse notified, pt donned hospital gown transferring to bed. Nursing changed pt's ostomy as OT cleaned up from ADLs and set up for next portion of ADLs. Pt transferred supine to sit EOB with SBA then completed dressing. Pt went to bathroom and completed oral hygiene seated at sink, then returned to sit EOB. Post OT session, pt seated EOB, call light in reach and all needs met. Education OT Patient Education: Correct positioning, Energy conservation, Modified ADL techniques, Progress toward Goal/Update tx plan, Purpose of tx/functional activities Teaching Recipient: Patient Teaching Methods: Discussion Response to Teaching: Verbalize Understanding OT Short Term Goals Short Term Goals Upper body dressin Lower body dressin Putting on/taking off footwear: 5 OT Javascript Engineer Goals Usp Goals Time Frame: April 08, 2020 Eating (QC): 6 Oral Hygiene (QC): 6 Toileting Hygiene (QC): 6 Shower/Bathe Self (QC): 6 Upper Body Dressing (QC): 6 Lower Body Dressing (QC): 6 On/Off Footwear (QC): 6 Additional Goals: 1-Demonstrate ADL Tasks, 2-Verbalize Understanding, 3- ImproveStrength/[place] 1=Demonstrate adherence to instructed precautions during ADL tasks. 2=Patient will verbalize/demonstrate understanding of assistive devices/modifications for ADL. 3=Patient will improve strength/tolerance for activity to enable patient to perform ADL's. OT Education/Plan Problem List/Assessment Assessment: Decreased Activ Tolerance, Decreased UE Strength, Impaired I ADL's, Impaired Self-Care Skills Discharge Recommendations Plan/Recommendations: Continue POC Treatment Plan/Plan of Care Patient would benefit from OT for education, treatment and training to promote independence in ADL's, mobility, safety and/or upper extremity function for ADL's. Plan of Care: ADL Retraining, Concurrent Therapy, Functional Mobility, Group Exercise/Act as Ind, UE Funct Exercise/Act Treatment Duration: March 27, 2020 Frequency: At least 5 of 7 days/Wk (IRF) Estimated Hrs Per Day: 1.5 hours per day Agreement: Yes Rehab Potential: Good Time/GCodes Start Time: 08:00 Stop Time: 09:30 Total Time Billed (hr/min): 90 Billed Treatment Time 1, ADL 6 SHAVON BARTLETT OT March 27, 2020 11:00
[2020-03-27] MEDS: NS IV 1000 ML 1,000 ML IV SCH ×2 (11:24→21:18)
--- NOTE | 2020-03-27 13:36 | NUR ---
CM/SS CONCURRENT DOCUMENTATION Reviewed EMR, discussed patient overall status with Unit RN and physician. Unit RN visited with patient's DPOA/friend yesterday to answer her questions about wound site and care at this time. Caregiver reportedly stated the patient would need to be able to self-direct and complete all dressing and colostomy care and changes independently. 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 Suspended Monday discharge, reassess patient first of week for overall status and level of functioning. Physician proposed patient may require a short term stay in a [facility] facility; however, she is uninsured and not eligible for Medicaid so this would likely be impossible since the financial piece has been confirmed unavailable.
--- NOTE | 2020-03-27 13:52 | Physical Therapy Daily Note ---
PT Daily Note-Current Subjective Pt agreeable. Now on IV fluids; "I am really dehydrated!" Mental Status Patient Orientation: Person, Place, Time, Situation Attachments: Colostomy/Ileostomy, IV Transfers SCALE: Activities may be completed with or without assistive devices. 9-Moxtzryakf-ftyjkqy completes the activity by him/herself with no assistance from a helper. 5-Set-up or Clean-up Assistance-helper sets up or cleans up; patient completes activity. [place] assists only prior to or following the activity. 4-Supervision or Touching Assistance-helper provides verbal cues and/or touching/steadying and/or contact guard assistance as patient completes activity. Assistance may be provided throughout the activity or intermittently. 3-Partial/Moderate Assistance-helper does LESS THAN HALF the effort. [place] lifts, holds or supports trunk or limbs, but provides less than half the effort. 2-Substantial/Maximal Assistance-helper does MORE THAN HALF the effort. [place] lifts or holds trunk or limbs and provides more than half the effort. 0-Zpbsgmsnp-iugvwi does ALL the effort. Patient does none of the effort to complete the activity. Or, the assistance of 2 or more helpers is required for the patient to complete the activity. If activity was not attempted, code reason: 7-Patient Refused. 9-Not Applicable-not attempted and the patient did not perform the activity before the current illness, exacerbation or injury. 10-Not Attempted due to Environmental Limitations-(lack of equipment, weather restraints, etc.). 88-Not Attempted due to Medical Conditions or Safety Concerns. Roll Left & Right (QC): 6 Sit to Lying (QC): 6 Lying to Sitting/Side of Bed(Q: 6 Sit to Stand (QC): 6 Weight Bearing Right Lower Extremity: Right Full Weight Bearing Left Lower Extremity: Left Full Weight Bearing Gait Training Does the Patient Walk?: Yes Distance: 250 Walk 10 feet (QC): 6 Walk 50 ft with 2 Turns(QC): 6 Walk 150 ft (QC): 6 Gait Persons Needed: 1 Gait Assistive Device: FWW Pt ambulates with slow, steady gait, flexed posture. Wheelchair Training Does the Pt Use a Wheelchair?: No Exercises Standing: Heel/toe raises, 3 way Ex=Flex, Abd, Ext, Marching Standing Reps: 20 Treatments Gait with FWW, standing LE exercises for functional strengthening, activity tolerance. Returned to bed with all needs met. Assessment Current Status: Excellent Progress Pt tolerated well. Improving functional activity tolerance, safe functional mobility. PT Short Term Goals Short Term Goals Time Frame: Mar 20, 2020 Roll Left & Right: 3 Sit to lyin Lying to sitting on side of be: 3 Sit to stand: 4 Chair/vhb-ki-nvxlr transfer: 4 Walk 10 feet: 4 Walk 50 feet with two turns: 4 Walk 150 feet: 4 PT Vacuum Tester Cans Goals Fdc Goals PT Vacuum Tester Cans Goals Time Frame: April 03, 2020 Roll Left & Right (QC): 6 Sit to Lying (QC): 6 Lying-Sitting on Side/Bed(QC): 6 Sit to Stand (QC): 6 Chair/Tin-zn-Hzuks Xfer(QC): 6 Toilet Transfer (QC): 6 Car Transfer (QC): 6 Does the Patient Walk: Yes Walk 10 feet (QC): 6 Walk 50ft with 2 Turns (QC): 6 Walk 150 ft (QC): 6 Walking 10ft on Uneven Surface: 6 1 Step (curb) (QC): 4 4 Steps (QC): 4 12 Steps (QC): 88 Picking up an Object (QC): 88 Wheel 50 feet with 2 turns (QC: 88 Wheel 150 feet: 88 PT Plan Problem List Problem List: Activity Tolerance, Functional Strength, Balance, Gait, Transfer Treatment/Plan Treatment Plan: Continue Plan of Care Treatment Plan: Bed Mobility, Education, Functional Activity Fern, Functional Strength, Group Therapy, Gait, Safety, Therapeutic Exercise, Transfers Treatment Duration: April 03, 2020 Frequency: At least 5 of 7 days/Wk (IRF) Estimated Hrs Per Day: 1.5 hours per day Patient and/or Family Agrees t: Yes Time/GCodes Time In: 1315 Time Out: 1345 Total Billed Treatment Time: 30 Total Billed Treatment 1, EX x 15', FA x 15' JUAN ALBERTO DICKINSON DPRyan March 27, 2020 13:52
[2020-03-27 16:00] VITALS: BP 119/83
--- NOTE | 2020-03-27 18:58 | Cardiology Progress Note ---
Cardiology SOAP Progress Note Subjective: No cardiac complaints Objective: I&O/Vital Signs 03/27/20 03/27/20 08:08 09:00 Pulse 107 B/P (MAP) 108/78 (88) O2 Delivery Room Air 03/27/20 00:00 Intake Total 740 ml Output Total 876 ml Balance -136 ml Constitutional: AAO x 3 Respiratory: chest is bilaterally symmetric, lungs clear to auscultation Cardiovascular: regular rate-rhythm, S1 and S2, systolic murmur Gastrointestional: soft, audible bowel sounds Extremities: normal range of motion, non-tender, normal inspection, pedal edema Neurologic/Psychiatric: no motor/sensory deficits, alert, normal mood/affect, oriented x 3 Skin: normal color Results/Procedures: Labs Laboratory Tests 03/27/20 05:45: White Blood Count 9.5, Red Blood Count 3.96L, Hemoglobin 10.8L, Hematocrit 34L, Mean Corpuscular Volume 85, Mean Corpuscular Hemoglobin 27, Mean Corpuscular Hemoglobin Concent 32, Red Cell Distribution Width 19.9H, Platelet Count 469H, Mean Platelet Volume 8.6, Neutrophils (%) (Auto) 77H, Lymphocytes (%) (Auto) 9L, Monocytes (%) (Auto) 11, Eosinophils (%) (Auto) 2, Basophils (%) (Auto) 0, Neutrophils # (Auto) 7.3, Lymphocytes # (Auto) 0.9L, Monocytes # (Auto) 1.1H, Eosinophils # (Auto) 0.2, Basophils # (Auto) 0.0, Sodium Level 130L, Potassium Level 4.8, Chloride Level 102, Carbon Dioxide Level 14L, Anion Gap 14, Blood Urea Nitrogen 35H, Creatinine 1.81H, Estimat Glomerular Filtration Rate 29, BUN/Creatinine Ratio 19, Glucose Level 101, Calcium Level 8.6, Corrected Calcium 9.4, Total Bilirubin 0.7, Aspartate Amino Transf (AST/SGOT) 26, Alanine Aminotransferase (ALT/SGPT) 30, Alkaline Phosphatase 224H, Total Protein 7.8, Albumin 3.0L Microbiology 03/16/20 Gram Stain - Final, Complete 03/16/20 Anaerobic Culture - Final, Complete No anaerobes isolated 03/16/20 Surgical Culture - Final, Complete No growth 03/14/20 Blood Culture - Final, Complete No growth A/P: Assessment/Dx: Currently in inpatient rehabilitation. Sinus tach and leucocytosis, consider systemic infection (managed by Med and Surg Svces). Resolved. Okay to DC telemetry. S/p colectomy for intestinal obstruction Marked post-op anemia, managed by the Surgical and Hospitalist Services - received 2 units of 03-09-2020 Hypokalemia, corrected Abnormal ECG, but no evidence of ac NM CAD, [facility]. Last card cath on 03/05/20: patent stents in the mid left circumflex and the mid right coronary arteries. There is moderate diffuse disease of all coronary arteries. There is moderately severe diffuse disease of the distal left anterior descending. A small caliber obtuse marginal has 70% to 80% ostial stenosis. Normal left ventricular end- diastolic pressure. Echo of 03/05/20: LVEF 60-65%, mild to mod TR, RVSP 35-40 mmHg, mild dilatation of LA Post-op hypotension and EMIGDIO 2, resolved Plan: * Beta nadeem * Continue DAPT because of recent coronary stenting. On aspirin and Plavix. * Monitor labs Thank you for your consultation. Please call me if you have any questions. Odessa Allen MD, FACP, FACC, FSCAI, FHRS, CCDS Interventional Cardiology Cardiac Electrophysiology Vascular Medicine and Endovascular Interventions Kusum ALLEN MD March 27, 2020 18:58
[2020-03-28 05:05] VITALS: BP 121/81
[2020-03-28] MEDS: CATHETER FLUSH 10 ML SYR IV SCH ×3 (06:48→20:38)
[2020-03-28] MEDS: NS IV 1000 ML 1,000 ML IV SCH ×2 (06:49→17:31)
[2020-03-28] MEDS: [UNRECOGNIZED DRUG - OTHER] PO SCH ×16 (06:49→22:56)
[2020-03-28] MEDS: NYSTATIN PO SCH ×16 (06:49→22:56)
[2020-03-28] MEDS: PREDNISOLONE PO SCH ×16 (06:49→22:56)
[2020-03-28 07:20] LABS: ALBUMIN 2.9 GM/DL (3.2-4.5); BILIRUBIN,TOTAL 0.5 MG/DL (0.1-1.0); CALCIUM 8.1 MG/DL (8.5-10.1); CREATININE SERUM 1.59 MG/DL (0.60-1.30); POTASSIUM 4.5 MMOL/L (3.6-5.0); TOTAL PROTEIN 7.3 GM/DL (6.4-8.2)
[2020-03-28] MEDS: DOCUSATE SODIUM 100 MG (COLACE) CAP PO SCH ×2 (08:46→20:15)
[2020-03-28] MEDS: polyethylene glycoL POWDER 17 GM (MIRALAX) PACK PO SCH ×2 (08:47→20:15)
--- NOTE | 2020-03-28 08:55 | Physical Therapy Daily Note ---
PT Daily Note-Current Subjective Pt up in BR, agreeable without c/o. Mental Status Patient Orientation: Person, Place, Time, Situation Attachments: IV Transfers SCALE: Activities may be completed with or without assistive devices. 6-Idipreilkd-btqlwvc completes the activity by him/herself with no assistance from a helper. 5-Set-up or Clean-up Assistance-helper sets up or cleans up; patient completes activity. [place] assists only prior to or following the activity. 4-Supervision or Touching Assistance-helper provides verbal cues and/or touching/steadying and/or contact guard assistance as patient completes activity. Assistance may be provided throughout the activity or intermittently. 3-Partial/Moderate Assistance-helper does LESS THAN HALF the effort. [place] lifts, holds or supports trunk or limbs, but provides less than half the effort. 2-Substantial/Maximal Assistance-helper does MORE THAN HALF the effort. [place] lifts or holds trunk or limbs and provides more than half the effort. 6-Cmcqpttzw-xlsqsl does ALL the effort. Patient does none of the effort to complete the activity. Or, the assistance of 2 or more helpers is required for the patient to complete the activity. If activity was not attempted, code reason: 7-Patient Refused. 9-Not Applicable-not attempted and the patient did not perform the activity before the current illness, exacerbation or injury. 10-Not Attempted due to Environmental Limitations-(lack of equipment, weather restraints, etc.). 88-Not Attempted due to Medical Conditions or Safety Concerns. Sit to Lying (QC): 6 Sit to Stand (QC): 6 Weight Bearing Right Lower Extremity: Right Full Weight Bearing Left Lower Extremity: Left Full Weight Bearing Gait Training Does the Patient Walk?: Yes Distance: 150 Walk 10 feet (QC): 6 Walk 50 ft with 2 Turns(QC): 6 Walk 150 ft (QC): 6 Gait Assistive Device: FWW Slow, steady gait with FWW. Flexed posture, assist with IV pole only. Wheelchair Training Does the Pt Use a Wheelchair?: No Exercises NuStep Minutes: 10 NuStep Workload: 5 Treatments NuStep for functional strengthening, activity tolerance, ambulation with FWW. Pt in bed with all needs met post treatment. Assessment Current Status: Good Progress Pt tolerated very well. Improving (I) with all functional mobility, improved functional activity tolerance. PT Short Term Goals Short Term Goals Time Frame: Mar 20, 2020 Roll Left & Right: 3 Sit to lyin Lying to sitting on side of be: 3 Sit to stand: 4 Chair/gqe-uo-ywten transfer: 4 Walk 10 feet: 4 Walk 50 feet with two turns: 4 Walk 150 feet: 4 PT [employer] Operator Goals Detention Goals PT Detention Goals Time Frame: April 03, 2020 Roll Left & Right (QC): 6 Sit to Lying (QC): 6 Lying-Sitting on Side/Bed(QC): 6 Sit to Stand (QC): 6 Chair/Nvj-wo-Fjinj Xfer(QC): 6 Toilet Transfer (QC): 6 Car Transfer (QC): 6 Does the Patient Walk: Yes Walk 10 feet (QC): 6 Walk 50ft with 2 Turns (QC): 6 Walk 150 ft (QC): 6 Walking 10ft on Uneven Surface: 6 1 Step (curb) (QC): 4 4 Steps (QC): 4 12 Steps (QC): 88 Picking up an Object (QC): 88 Wheel 50 feet with 2 turns (QC: 88 Wheel 150 feet: 88 PT Plan Problem List Problem List: Activity Tolerance, Functional Strength, Balance, Gait, Transfer Treatment/Plan Treatment Plan: Continue Plan of Care Treatment Plan: Bed Mobility, Education, Functional Activity [place], Functional Strength, Group Therapy, Gait, Safety, Therapeutic Exercise, Transfers Treatment Duration: April 03, 2020 Frequency: At least 5 of 7 days/Wk (IRF) Estimated Hrs Per Day: 1.5 hours per day Patient and/or Family Agrees t: Yes Time/GCodes Time In: 821 Time Out: 0851 Total Billed Treatment Time: 29 Total Billed Treatment 1, Ex x 12', FA x 17' JUAN ALBERTO DICKINSON DPRyan March 28, 2020 08:55
[2020-03-28] MEDS: meTOprolol TARTRATE 50 MG (LOPRESSOR) TAB PO SCH ×2 (09:21→20:37)
[2020-03-28] MEDS: PANTOPRAZOLE 40 MG (PROTONIX) TAB PO SCH (09:21)
[2020-03-28] MEDS: SENNA W/DOCUSATE (SENOKOT S) TABLET PO SCH ×2 (09:22→20:15)
[2020-03-28] MEDS: NYSTATIN ORAL SUSP 5 ML UDC PO SCH ×4 (09:22→22:56)
[2020-03-28] MEDS: ASPIRIN E.C. 81 MG (ECOTRIN) TAB PO SCH (09:22)
[2020-03-28] MEDS: CLOPIDOGREL 75 MG (PLAVIX) TABLET PO SCH (09:22)
[2020-03-28] MEDS: NYSTATIN CREAM (MYCOSTATIN) 30 GM TUBE TP SCH ×2 (09:23→22:56)
[2020-03-28] MEDS: MICONAZOLE 2% POWDER (DESENEX AF) 90 GM TOP SCH ×2 (09:23→20:39)
--- NOTE | 2020-03-28 12:20 | PM&R Progress Note ---
Subjective HPI/CC On Admission Date Seen by Provider: March 28, 2020 Time Seen by Provider: 12:30 Subjective/Events-last exam Creatinine 1.59 noted and sodium 130 Drinking orange gatorade and water and doing well with that, she will need to maintain that mcfp Powerade and gatorade will be maintained IVF will be maintained 1 more day She is dumping her ileostomy bag on her own now No significant falls and no pain Checked meds and labs Conferred with RN Reviewed therapy notes Review of Systems General: Fatigue Objective Exam Vital Signs Vital Signs Date Time Temp Pulse Resp B/P (MAP) Pulse Ox O2 Delivery O2 Flow Rate FiO2 03/28/20 05:05 35.8 104 20 121/81 (94) 95 Room Air Capillary Refill : Less Than 3 Seconds General Appearance: No Apparent Distress, Anxious, Chronically ill HEENT: PERRL/EOMI, Normal ENT Inspection, Pharynx Normal, Moist Mucous Membranes Neck: Full Range of Motion, Non Tender, Supple Respiratory: Chest Non Tender, Lungs Clear, No Accessory Muscle Use, No Respiratory Distress, Decreased Breath Sounds Cardiovascular: Regular Rate, Rhythm, No Gallop, No JVD, No Murmur Gastrointestinal: Normal Bowel Sounds, No Organomegaly, No Pulsatile Mass, Soft , Tenderness Back: Normal Inspection, No CVA Tenderness, No Vertebral Tenderness Extremity: Pedal Edema (2+ legs) Neurologic/Psychiatric: Alert, Oriented x3, carpenters helper II-XII Norm as Tested, Depressed Affect, Motor Weakness (generalized all extremties) Skin: Normal Color Lymphatic: No Adenopathy Results/Procedures Lab Laboratory Tests 03/28/20 06:50 Patient resulted labs reviewed. FIM Transfers Therapy Code Descriptions/Definitions Functional [place] Measure: 0=Not Assessed/NA 4=Minimal Assistance 1=Total Assistance 5=Supervision or Setup 2=Maximal Assistance 6=Modified [place] 3=Moderate Assistance 7=Complete IndependenceSCALE: Activities may be completed with or without assistive devices. 9-Ytodpwlurl-ngnlujs completes the activity by him/herself with no assistance from a helper. 5-Set-up or Clean-up Assistance-helper sets up or cleans up; patient completes activity. [place] assists only prior to or following the activity. 4-Supervision or Touching Assistance-helper provides verbal cues and/or touching/steadying and/or contact guard assistance as patient completes activity. Assistance may be provided throughout the activity or intermittently. 3-Partial/Moderate Assistance-helper does LESS THAN HALF the effort. [place] lifts, holds or supports trunk or limbs, but provides less than half the effort. 2-Substantial/Maximal Assistance-helper does MORE THAN HALF the effort. [place] lifts or holds trunk or limbs and provides more than half the effort. 8-Rffhxwwuc-qfaizb does ALL the effort. Patient does none of the effort to complete the activity. Or, the assistance of 2 or more helpers is required for the patient to complete the activity. If activity was not attempted, code reason: 7-Patient Refused. 9-Not Applicable-not attempted and the patient did not perform the activity before the current illness, exacerbation or injury. 10-Not Attempted due to Environmental Limitations-(lack of equipment, weather restraints, etc.). 88-Not Attempted due to Medical Conditions or Safety Concerns. Roll Left to Right (QC): 6 Sit to Lying (QC): 6 Sit to Stand (QC): 6 Chair/Sqn-bz-Xgkdr Xfer(QC): 6 Car Transfer (QC): 5 Gait Training Does the Patient Walk?: Yes Distance: 150 Walk 10 feet (QC): 6 Walk 50 ft with 2 Turns(QC): 6 Walk 150 ft (QC): 6 Walking 10ft/uneven surface-QC: 4 Gait Persons Needed: 1 Gait Assistive Device: FWW Wheelchair Training Does the Pt Use a Wheelchair?: No Wheel 50 ft with 2 turns (QC): 9 Wheel 150 ft (QC): 9 Stair Training Stair Training: Handrails/: 2 handrails #of Steps: 4 1 Step (curb) (QC): 4 4 Steps (QC): 4 12 Steps (QC): 88 Stairs: Pattern: Reciprocal Balance Picking up an Object (QC): 88 ADL-Treatment Eating (QC): 6 (per pt report she had no difficulties eating breakfast.) Oral Hygiene (QC): 6 (ind seated at sink) Shower/Bathe Self (QC): 4 (SBA during stand. Pt reports she does not feel comfortable enough standing without someone close by. She completed all parts.) Upper Body Dressing (QC): 5 (set up) Lower Body Dressing (QC): 4 (SBA) On/Off Footwear (QC): 3 (Assist with tedhose. Pt able to doff/don socks with AE) Toileting Hygiene (QC): 3 (min A emptying ostomy bag seated in chair. OT held container as pt emptied contents, pt did not get bottom of bag completely shut, spilling some onto floor. OT assisted with clean up from accident.) Toilet Transfer (QC): 4 (SBA) Assessment/Plan Assessment and Plan Assess & Plan/Chief Complaint Assessment: Debility s/p critical illness and VDRF 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 Anasarca Hirsutism Poor albumin level improving with good nutrition Sore mouth added Nystatin and Magic mouthwash resolving s/p fever Zosyn added by Dr Taveras empirically now DC Ascites s/p paracentesis just bloody serous NGTD Anemia s/p transfusions 2 units 03/17/20 now hgb 10 with iron infusions completing Situational depression Emesis causing ARF and volume depletion giving gentle IVF 03/27/20 and 03/28/20 Plan: Mouth treatment is improving status IRF protocol Lab monitored Check labs periodically Wound care to iliostomy site Paracentesis completed Emesis treatment IVF today again (1) S/P colectomy (2) Ileostomy in place (3) Hirsutism (4) Tachycardia (5) Anasarca (6) Anemia (7) Debility (8) Sigmoid volvulus (9) Leukocytosis (10) Acute kidney injury (11) Hyponatremia (12) Coronary artery disease (13) Abdominal pain Status: Acute (14) Elevated troponin (15) S/P cardiac cath SESAR BEEBE DO March 28, 2020 12:20
[2020-03-28 17:37] VITALS: BP 124/81
[2020-03-28 20:37] VITALS: BP 135/85
[2020-03-28] MEDS: ZINC OXIDE 16% OINT (BUTT PASTE) 113 GM TUBE TOP PRN (20:39)
--- NOTE | 2020-03-28 21:02 | Cardiology Progress Note ---
Cardiology SOAP Progress Note Subjective: No cardiac complaints. Objective: I&O/Vital Signs 03/28/20 17:37 Temp 35.9 Pulse 99 Resp 20 B/P (MAP) 124/81 (95) Pulse Ox 98 O2 Delivery Room Air 03/28/20 00:00 Intake Total 2140 ml Output Total 902 ml Balance 1238 ml Constitutional: AAO x 3 Respiratory: chest is bilaterally symmetric, lungs clear to auscultation Cardiovascular: regular rate-rhythm, S1 and S2, systolic murmur Gastrointestional: soft, audible bowel sounds Extremities: normal range of motion, non-tender, normal inspection, pedal edema Neurologic/Psychiatric: no motor/sensory deficits, alert, normal mood/affect, oriented x 3 Skin: normal color Results/Procedures: Labs Laboratory Tests 03/28/20 06:50: Sodium Level 130L, Potassium Level 4.5, Chloride Level 106, Carbon Dioxide Level 14L, Anion Gap 10, Blood Urea Nitrogen 37H, Creatinine 1.59H, Estimat Glomerular Filtration Rate 34, BUN/Creatinine Ratio 23, Glucose Level 98, Calcium Level 8.1L, Corrected Calcium 9.0, Total Bilirubin 0.5, Aspartate Amino Transf (AST/SGOT) 18, Alanine Aminotransferase (ALT/SGPT) 25, Alkaline Phosphatase 204H , Total Protein 7.3, Albumin 2.9L Microbiology 03/16/20 Gram Stain - Final, Complete 03/16/20 Anaerobic Culture - Final, Complete No anaerobes isolated 03/16/20 Surgical Culture - Final, Complete No growth 03/14/20 Blood Culture - Final, Complete No growth A/P: Assessment/Dx: Currently in inpatient rehabilitation. Sinus tach and leucocytosis, consider systemic infection (managed by [facility]). Resolved. Okay to DC telemetry. S/p colectomy for intestinal obstruction Marked post-op anemia, managed by the Surgical and Hospitalist Services - received 2 units of 03-09-2020 Hypokalemia, corrected Abnormal ECG, but no evidence of ac [place] CAD, h/o cor stenting at [facility] in Oct 2019. Last card cath on 03/05/20: patent stents in the mid left circumflex and the mid right coronary arteries. There is moderate diffuse disease of all coronary arteries. There is moderately severe diffuse disease of the distal left anterior descending. A small caliber obtuse marginal has 70% to 80% ostial stenosis. Normal left ventricular end-diastolic pressure. Echo of 03/05/20: LVEF 60-65%, mild to mod TR, RVSP 35-40 mmHg, mild dilatation of LA Post-op hypotension and EMIGDIO 2, resolved Plan: * Beta nadeem * Continue DAPT because of recent coronary stenting. On aspirin and Plavix. * Monitor labs Thank you for your consultation. Please call me if you have any questions. Odessa Allen MD, FACP, FACC, FSCAI, FHRS, CCDS Interventional Cardiology Cardiac Electrophysiology Vascular Medicine and Endovascular Interventions Kusum ALLEN MD March 28, 2020 21:02
[2020-03-29] MEDS: NS IV 1000 ML 1,000 ML IV SCH (03:15)
[2020-03-29 05:08] VITALS: BP 134/89
[2020-03-29] MEDS: PREDNISOLONE PO SCH ×16 (06:40→20:53)
[2020-03-29] MEDS: CATHETER FLUSH 10 ML SYR IV SCH ×3 (06:40→20:51)
[2020-03-29] MEDS: NYSTATIN PO SCH ×16 (06:40→20:53)
[2020-03-29] MEDS: [UNRECOGNIZED DRUG - OTHER] PO SCH ×16 (06:40→20:53)
[2020-03-29] MEDS: polyethylene glycoL POWDER 17 GM (MIRALAX) PACK PO SCH ×2 (08:55→19:40)
[2020-03-29] MEDS: DOCUSATE SODIUM 100 MG (COLACE) CAP PO SCH ×2 (08:55→19:39)
[2020-03-29] MEDS: SENNA W/DOCUSATE (SENOKOT S) TABLET PO SCH ×2 (08:55→19:40)
[2020-03-29] MEDS: CLOPIDOGREL 75 MG (PLAVIX) TABLET PO SCH (09:34)
[2020-03-29] MEDS: PANTOPRAZOLE 40 MG (PROTONIX) TAB PO SCH (09:34)
[2020-03-29] MEDS: ASPIRIN E.C. 81 MG (ECOTRIN) TAB PO SCH (09:34)
[2020-03-29] MEDS: meTOprolol TARTRATE 50 MG (LOPRESSOR) TAB PO SCH ×2 (09:34→20:49)
[2020-03-29] MEDS: NYSTATIN ORAL SUSP 5 ML UDC PO SCH (09:35)
[2020-03-29] MEDS: NYSTATIN CREAM (MYCOSTATIN) 30 GM TUBE TP SCH ×2 (09:35→19:40)
[2020-03-29] MEDS: MICONAZOLE 2% POWDER (DESENEX AF) 90 GM TOP SCH ×2 (09:35→20:52)
--- NOTE | 2020-03-29 12:01 | PM&R Progress Note ---
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 and gatorade will be maintained IVF will be DC to prevent overload She is dumping her ileostomy bag on her own now No significant falls and no pain Checked meds and labs Conferred with RN Reviewed therapy notes Review of Systems General: Fatigue Objective Exam Vital Signs Vital Signs Date Time Temp Pulse Resp B/P (MAP) Pulse Ox O2 Delivery O2 Flow Rate FiO2 03/29/20 08:15 Room Air 03/29/20 05:08 36.8 96 20 134/89 (104) 98 Capillary Refill : Less Than 3 Seconds General Appearance: No Apparent Distress, Anxious, Chronically ill HEENT: PERRL/EOMI, Normal ENT Inspection, Pharynx Normal, Moist Mucous Membranes Neck: Full Range of Motion, Non Tender, Supple Respiratory: Chest Non Tender, Lungs Clear, No Accessory Muscle Use, No Respiratory Distress, Decreased Breath Sounds Cardiovascular: Regular Rate, Rhythm, No Gallop, No JVD, No Murmur Gastrointestinal: Normal Bowel Sounds, No Organomegaly, No Pulsatile Mass, Soft, Tenderness Back: Normal Inspection, No CVA Tenderness, No Vertebral Tenderness Extremity: Pedal Edema (2+ legs) Neurologic/Psychiatric: Alert, Oriented x3, rn cardiac rehab II-XII Norm as Tested, Depressed Affect, Motor Weakness (generalized all extremties) Skin: Normal Color Lymphatic: No Adenopathy Results/Procedures Lab Patient resulted labs reviewed. FIM Transfers Therapy Code Descriptions/Definitions Functional [place] Measure: 0=Not Assessed/NA 4=Minimal Assistance 1=Total Assistance 5=Supervision or Setup 2=Maximal Assistance 6=Modified [place] 3=Moderate Assistance 7=Complete IndependenceSCALE: Activities may be completed with or without assistive devices. 3-Bgxyunulyl-dfrapxr completes the activity by him/herself with no assistance from a helper. 5-Set-up or Clean-up Assistance-helper sets up or cleans up; patient completes activity. [place] assists only prior to or following the activity. 4-Supervision or Touching Assistance-helper provides verbal cues and/or touching/steadying and/or contact guard assistance as patient completes activity. Assistance may be provided throughout the activity or intermittently. 3-Partial/Moderate Assistance-helper does LESS THAN HALF the effort. [place] lifts, holds or supports trunk or limbs, but provides less than half the effort. 2-Substantial/Maximal Assistance-helper does MORE THAN HALF the effort. [place] lifts or holds trunk or limbs and provides more than half the effort. 5-Wqlhczkcf-wrlhkg does ALL the effort. Patient does none of the effort to complete the activity. Or, the assistance of 2 or more helpers is required for the patient to complete the activity. If activity was not attempted, code reason: 7-Patient Refused. 9-Not Applicable-not attempted and the patient did not perform the activity before the current illness, exacerbation or injury. 10-Not Attempted due to Environmental Limitations-(lack of equipment, weather restraints, etc.). 88-Not Attempted due to Medical Conditions or Safety Concerns. Roll Left to Right (QC): 6 Sit to Lying (QC): 6 Sit to Stand (QC): 6 Chair/Zdg-nq-Yxaow Xfer(QC): 6 Car Transfer (QC): 5 Gait Training Does the Patient Walk?: Yes Distance: 150 Walk 10 feet (QC): 6 Walk 50 ft with 2 Turns(QC): 6 Walk 150 ft (QC): 6 Walking 10ft/uneven surface-QC: 4 Gait Persons Needed: 1 Gait Assistive Device: FWW Wheelchair Training Does the Pt Use a Wheelchair?: No Wheel 50 ft with 2 turns (QC): 9 Wheel 150 ft (QC): 9 Stair Training Stair Training: Handrails/: 2 handrails #of Steps: 4 1 Step (curb) (QC): 4 4 Steps (QC): 4 12 Steps (QC): 88 Stairs: Pattern: Reciprocal Balance Picking up an Object (QC): 88 ADL-Treatment Eating (QC): 6 (per pt report she had no difficulties eating breakfast.) Oral Hygiene (QC): 6 (ind seated at sink) Shower/Bathe Self (QC): 4 (SBA during stand. Pt reports she does not feel comfortable enough standing without someone close by. She completed all parts.) Upper Body Dressing (QC): 5 (set up) Lower Body Dressing (QC): 4 (SBA) On/Off Footwear (QC): 3 (Assist with tedhose. Pt able to doff/don socks with AE) Toileting Hygiene (QC): 3 (min A emptying ostomy bag seated in chair. OT held container as pt emptied contents, pt did not get bottom of bag completely shut, spilling some onto floor. OT assisted with clean up from accident.) Toilet Transfer (QC): 4 (SBA) Assessment/Plan Assessment and Plan Assess & Plan/Chief Complaint Assessment: Debility s/p critical illness and VDRF 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 Anasarca much improved now after Lasix Hirsutism Poor albumin level improving with good nutrition Sore mouth added Nystatin and Magic mouthwash resolving so will DC Nystatin S&S s/p fever Zosyn added by Dr Taveras empirically now DC Ascites s/p paracentesis just bloody serous NGTD Anemia s/p transfusions 2 units 03/17/20 now hgb 10 with iron infusions completed Situational depression Emesis causing ARF and volume depletion giving gentle IVF 03/27/20 and 03/28/20 and DC today 03/29/20 Plan: Mouth treatment is improving status IRF protocol Lab monitored Check labs periodically Wound care to iliostomy site Paracentesis completed Emesis treatment IVF DC (1) S/P colectomy (2) Ileostomy in place (3) Hirsutism (4) Tachycardia (5) Anasarca (6) Anemia (7) Debility (8) Sigmoid volvulus (9) Leukocytosis (10) Acute kidney injury (11) Hyponatremia (12) Coronary artery disease (13) Abdominal pain Status: Acute (14) Elevated troponin (15) S/P cardiac cath SESAR BEEBE DO March 29, 2020 12:01
--- NOTE | 2020-03-29 16:06 | Cardiology Progress Note ---
Cardiology SOAP Progress Note Subjective: No cardiac complaints. Objective: I&O/Vital Signs 03/29/20 03/29/20 05:08 08:15 Temp 36.8 Pulse 96 Resp 20 B/P (MAP) 134/89 (104) Pulse Ox 98 O2 Delivery Room Air Room Air 03/29/20 00:00 Intake Total 2150 ml Output Total 2208 ml Balance -58 ml Constitutional: AAO x 3 Respiratory: chest is bilaterally symmetric, lungs clear to auscultation Cardiovascular: regular rate-rhythm, S1 and S2, systolic murmur Gastrointestional: soft, audible bowel sounds Extremities: normal range of motion, non-tender, normal inspection, pedal edema Neurologic/Psychiatric: no motor/sensory deficits, alert, normal mood/affect, oriented x 3 Skin: normal color Results/Procedures: Labs Microbiology 03/16/20 Gram Stain - Final, Complete 03/16/20 Anaerobic Culture - Final, Complete No anaerobes isolated 03/16/20 Surgical Culture - Final, Complete No growth 03/14/20 Blood Culture - Final, Complete No growth A/P: Assessment/Dx: Currently in inpatient rehabilitation. Sinus tach and leucocytosis, consider systemic infection (managed by [facility]). Resolved. Okay to DC telemetry. S/p colectomy for intestinal obstruction Marked post-op anemia, managed by the Surgical and Hospitalist Services - received 2 units of 03-09-2020 Hypokalemia, corrected Abnormal ECG, but no evidence of ac [place] CAD, h/o cor stenting at [facility] in Oct 2019. Last card cath on 03/05/20: patent stents in the mid left circumflex and the mid right coronary arteries. There is moderate diffuse disease of all coronary arteries. There is moderately severe diffuse disease of the distal left anterior descending. A small caliber obtuse marginal has 70% to 80% ostial stenosis. Normal left ventricular end- diastolic pressure. Echo of 03/05/20: LVEF 60-65%, mild to mod TR, RVSP 35-40 mmHg, mild dilatation of LA Post-op hypotension and EMIGDIO 2, resolved Plan: * Beta nadeem * Continue DAPT because of recent coronary stenting. On aspirin and Plavix. * Monitor labs Thank you for your consultation. Please call me if you have any questions. Odessa Allen MD, FACP, FACC, FSCAI, FHRS, CCDS Interventional Cardiology Cardiac Electrophysiology Vascular Medicine and Endovascular Interventions Kusum ALLEN MD March 29, 2020 16:06
[2020-03-29 17:30] VITALS: BP 136/85
[2020-03-30] MEDS: CATHETER FLUSH 10 ML SYR IV SCH ×3 (06:04→21:52)
[2020-03-30] MEDS: NYSTATIN PO SCH ×16 (06:04→22:02)
[2020-03-30] MEDS: [UNRECOGNIZED DRUG - OTHER] PO SCH ×16 (06:04→22:02)
[2020-03-30] MEDS: PREDNISOLONE PO SCH ×16 (06:04→22:02)
[2020-03-30 06:13] LABS: BASOPHILS % (AUTO) 1 % (0-10); EOSINOPHILS # (AUTO) 0.2 10^3/uL (0.0-0.3); EOSINOPHILS % (AUTO) 3 % (0-10); HEMATOCRIT 29 % (35-52); HEMOGLOBIN 9.4 G/DL (11.5-16.0); LYMPHOCYTES # (AUTO) 0.6 X 10^3 (1.0-4.0); LYMPHOCYTES % (AUTO) 10 % (12-44); MEAN CORPUSCULAR HEMOGLOBIN 28 PG (25-34); MEAN CORPUSCULAR HGB CONC 32 G/DL (32-36); MEAN CORPUSCULAR VOLUME 86 FL (80-99); MEAN PLATELET VOLUME 8.5 FL (7.4-10.4); MONOCYTES # (AUTO) 0.7 X 10^3 (0.0-1.0); MONOCYTES % (AUTO) 11 % (0-12); NEUTROPHILS # (AUTO) 4.7 X 10^3 (1.8-7.8); NEUTROPHILS % (AUTO) 76 % (42-75); PLATELET COUNT 267 10^3/uL (130-400); RED CELL DISTRIBUTION WIDTH 19.7 % (10.0-14.5); WHITE BLOOD COUNT 6.2 10^3/uL (4.3-11.0)
[2020-03-30 06:34] LABS: ALANINE AMINOTRANSFERASE 19 U/L (0-55); ALBUMIN 2.5 GM/DL (3.2-4.5); ALKALINE PHOSPHATASE 160 U/L (40-136); BILIRUBIN,TOTAL 0.3 MG/DL (0.1-1.0); BUN/CREATININE RATIO 31; CALCIUM 7.7 MG/DL (8.5-10.1); CARBON DIOXIDE 15 MMOL/L (21-32); CHLORIDE 110 MMOL/L (98-107); CREATININE SERUM 0.74 MG/DL (0.60-1.30); GFR ESTIMATED > 60; GLUCOSE 104 MG/DL (70-105); POTASSIUM 4.2 MMOL/L (3.6-5.0); SODIUM 133 MMOL/L (135-145); TOTAL PROTEIN 6.3 GM/DL (6.4-8.2)
[2020-03-30 06:50] VITALS: BP 127/79
[2020-03-30] MEDS: NYSTATIN CREAM (MYCOSTATIN) 30 GM TUBE TP SCH ×2 (09:00→22:02)
[2020-03-30] MEDS: polyethylene glycoL POWDER 17 GM (MIRALAX) PACK PO SCH ×2 (09:00→22:02)
[2020-03-30] MEDS: SENNA W/DOCUSATE (SENOKOT S) TABLET PO SCH ×2 (09:00→22:02)
--- NOTE | 2020-03-30 09:10 | PM&R Progress Note ---
Subjective HPI/CC On Admission Date Seen by Provider: March 30, 2020 Time Seen by Provider: 09:15 Subjective/Events-last exam Creatinine now normal DC iv fluid yesterday Ileostomy output is better Hgb 9.4 Sodium level 133 Creatinine normal at 0.77 [place] gatorade tolerated very well with water No significant falls and no pain Checked meds and labs Conferred with RN Reviewed therapy notes Review of Systems General: Fatigue Gastrointestinal: Abdominal Pain Objective Exam Vital Signs Vital Signs Date Time Temp Pulse Resp B/P (MAP) Pulse Ox O2 Delivery O2 Flow Rate FiO2 03/30/20 16:00 36.8 87 16 146/91 (109) 97 Room Air Capillary Refill : Less Than 3 Seconds General Appearance: No Apparent Distress, Anxious, Chronically ill HEENT: PERRL/EOMI, Normal ENT Inspection, Pharynx Normal, Moist Mucous Membranes Neck: Full Range of Motion, Non Tender, Supple Respiratory: Chest Non Tender, Lungs Clear, No Accessory Muscle Use, No Respiratory Distress, Decreased Breath Sounds Cardiovascular: Regular Rate, Rhythm, No Gallop, No JVD, No Murmur Gastrointestinal: Normal Bowel Sounds, No Organomegaly, No Pulsatile Mass, Soft, Tenderness Back: Normal Inspection, No CVA Tenderness, No Vertebral Tenderness Extremity: Pedal Edema (2+ legs) Neurologic/Psychiatric: Alert, Oriented x3, healthcare administrative assistant II-XII Norm as Tested, Depressed Affect, Motor Weakness (generalized all extremties) Skin: Normal Color Lymphatic: No Adenopathy Results/Procedures Lab Laboratory Tests 03/30/20 06:05 Patient resulted labs reviewed. FIM Transfers Therapy Code Descriptions/Definitions Functional [place] Measure: 0=Not Assessed/NA 4=Minimal Assistance 1=Total Assistance 5=Supervision or Setup 2=Maximal Assistance 6=Modified [place] 3=Moderate Assistance 7=Complete IndependenceSCALE: Activities may be completed with or without assistive devices. 0-Toctqeminv-yqtgamf completes the activity by him/herself with no assistance from a helper. 5-Set-up or Clean-up Assistance-helper sets up or cleans up; patient completes activity. [place] assists only prior to or following the activity. 4-Supervision or Touching Assistance-helper provides verbal cues and/or touching/steadying and/or contact guard assistance as patient completes activity. Assistance may be provided throughout the activity or intermittently. 3-Partial/Moderate Assistance-helper does LESS THAN HALF the effort. [place] lifts, holds or supports trunk or limbs, but provides less than half the effort. 2-Substantial/Maximal Assistance-helper does MORE THAN HALF the effort. [place] lifts or holds trunk or limbs and provides more than half the effort. 3-Lzvrbsdhx-ypmbhu does ALL the effort. Patient does none of the effort to comp lete the activity. Or, the assistance of 2 or more helpers is required for the patient to complete the activity. If activity was not attempted, code reason: 7-Patient Refused. 9-Not Applicable-not attempted and the patient did not perform the activity before the current illness, exacerbation or injury. 10-Not Attempted due to Environmental Limitations-(lack of equipment, weather restraints, etc.). 88-Not Attempted due to Medical Conditions or Safety Concerns. Roll Left to Right (QC): 6 Sit to Lying (QC): 6 Sit to Stand (QC): 6 Chair/Bnt-og-Vaspm Xfer(QC): 6 Car Transfer (QC): 5 Gait Training Does the Patient Walk?: Yes Distance: 150 Walk 10 feet (QC): 6 Walk 50 ft with 2 Turns(QC): 6 Walk 150 ft (QC): 6 Walking 10ft/uneven surface-QC: 4 Gait Persons Needed: 1 Gait Assistive Device: FWW Wheelchair Training Does the Pt Use a Wheelchair?: No Wheel 50 ft with 2 turns (QC): 9 Wheel 150 ft (QC): 9 Stair Training Stair Training: Handrails/: 2 handrails #of Steps: 4 1 Step (curb) (QC): 4 4 Steps (QC): 4 12 Steps (QC): 88 Stairs: Pattern: Reciprocal Balance Picking up an Object (QC): 88 ADL-Treatment Eating (QC): 6 (per pt report she had no difficulties eating breakfast.) Oral Hygiene (QC): 6 (ind seated at sink) Shower/Bathe Self (QC): 4 (SBA during stand. Pt reports she does not feel comfortable enough standing without someone close by. She completed all parts.) Upper Body Dressing (QC): 5 (set up) Lower Body Dressing (QC): 4 (SBA) On/Off Footwear (QC): 3 (Assist with tedhose. Pt able to doff/don socks with AE) Toileting Hygiene (QC): 3 (min A emptying ostomy bag seated in chair. OT held container as pt emptied contents, pt did not get bottom of bag completely shut, spilling some onto floor. OT assisted with clean up from accident.) Toilet Transfer (QC): 4 (SBA) Assessment/Plan Assessment and Plan Assess & Plan/Chief Complaint Assessment: Debility s/p critical illness and VDRF 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 Anasarca much improved now after Lasix last week Hirsutism Poor albumin level improving with good nutrition Sore mouth added Nystatin and Magic mouthwash resolving so will DC Nystatin S&S s/p fever Zosyn added by Dr Taveras empirically now DC Ascites s/p paracentesis just bloody serous NGTD Anemia s/p transfusions 2 units 03/17/20 now hgb 10 with iron infusions completed Situational depression Emesis causing ARF and volume depletion giving gentle IVF 03/27/20 and 03/28/20 and DC today 03/29/20 Plan: Mouth treatment is improving status IRF protocol Lab monitored Check labs periodically Wound care to iliostomy site Paracentesis completed Emesis treatment IVF DC (1) S/P colectomy (2) Ileostomy in place (3) Hirsutism (4) Tachycardia (5) Anasarca (6) Anemia (7) Debility (8) Sigmoid volvulus (9) Leukocytosis (10) Acute kidney injury (11) Hyponatremia (12) Coronary artery disease (13) Abdominal pain Status: Acute (14) Elevated troponin (15) S/P cardiac cath SESAR BEEBE DO March 30, 2020 09:10
[2020-03-30] MEDS: ASPIRIN E.C. 81 MG (ECOTRIN) TAB PO SCH (09:40)
[2020-03-30] MEDS: PANTOPRAZOLE 40 MG (PROTONIX) TAB PO SCH (09:40)
[2020-03-30] MEDS: CLOPIDOGREL 75 MG (PLAVIX) TABLET PO SCH (09:40)
[2020-03-30] MEDS: meTOprolol TARTRATE 50 MG (LOPRESSOR) TAB PO SCH ×2 (09:40→21:51)
[2020-03-30] MEDS: DOCUSATE SODIUM 100 MG (COLACE) CAP PO SCH ×2 (09:40→21:51)
[2020-03-30] MEDS: MICONAZOLE 2% POWDER (DESENEX AF) 90 GM TOP SCH ×2 (09:45→22:02)
--- NOTE | 2020-03-30 09:45 | NUR ---
After OT had given patient a shower, this nurse alerted that there was a small amount of drainage coming out of the bottom of ostomy device. Also noted that dressing to midline abdomen was saturated with serosanguineous drainage and is dated 03/28. Dressing immediately removed. One staple from lower area of wound came off with dressing. Area cleansed and new dressing applied. New ostomy appliance and bag applied. Patient tolerated all procedures well.
--- NOTE | 2020-03-30 10:07 | Occupational Ther Daily Note ---
OT Current Status-Daily Note Subjective Pt sitting upright EOB at start of session, agreeable to OT tx. She did not report any pain during session. Mental Status/Objective Patient Orientation: Normal For Age ADL-Treatment Therapy Code Descriptions/Definitions Functional [place] Measure: 0=Not Assessed/NA 4=Minimal Assistance 1=Total Assistance 5=Supervision or Setup 2=Maximal Assistance 6=Modified [place] 3=Moderate Assistance 7=Complete IndependenceSCALE: Activities may be completed with or without assistive devices. 4-Ghfvezyffa-vkjrbzu completes the activity by him/herself with no assistance from a helper. 5-Set-up or Clean-up Assistance-helper sets up or cleans up; patient completes activity. [place] assists only prior to or following the activity. 4-Supervision or Touching Assistance-helper provides verbal cues and/or touching/steadying and/or contact guard assistance as patient completes activity. Assistance may be provided throughout the activity or intermittently. 3-Partial/Moderate Assistance-helper does LESS THAN HALF the effort. [place] lifts, holds or supports trunk or limbs, but provides less than half the effort. 2-Substantial/Maximal Assistance-helper does MORE THAN HALF the effort. [place] lifts or holds trunk or limbs and provides more than half the effort. 7-Kuqzahwhm-uohjwq does ALL the effort. Patient does none of the effort to complete the activity. Or, the assistance of 2 or more helpers is required for the patient to complete the activity. If activity was not attempted, code reason: 7-Patient Refused. 9-Not Applicable-not attempted and the patient did not perform the activity before the current illness, exacerbation or injury. 10-Not Attempted due to Environmental Limitations-(lack of equipment, weather restraints, etc.). 88-Not Attempted due to Medical Conditions or Safety Concerns. Eating (QC): 6 (per pt report) Oral Hygiene (QC): 6 (seated at sink) Shower/Bathe Self (QC): 4 (Pt able to wash all parts. Pt safely stood at GB in order to wash periarea and buttocks, pt asked for SBA during stand. No LOB noted) Toileting Hygiene (QC): 3 (min A with emptying ostomy bag. OT held container as pt emptied contents. Pt able to wipe and close ostomy bag.SBA with urination, pt able to manage clothing and complete hygiene.) Toilet Transfer (QC): 4 (SBA) Other Treatment Pt seated EOB, transferred to chair in bathroom where she emptied her ostomy bag, then transferred to toilet for toileting. Pt transferred to shower where sh e doffed clothes with SBA and completed showering. After shower, pt put on hospital gown and completed oral hygiene, shaving, and hair brushing independently seated at sink. Pt transferred to sit EOB, nurse present and stated pt's ostomy needed changed. Due to pt not donning clothes during tx, no QC score given. Post OT tx, pt laying in bed, call light in reach and all needs met. Education OT Patient Education: Correct positioning, Energy conservation, Modified ADL techniques, Progress toward Goal/Update tx plan, Purpose of tx/functional activities, Safety issues Teaching Recipient: Patient Teaching Methods: Demonstration, Discussion Response to Teaching: Verbalize Understanding, Return Demonstration OT Short Term Goals Short Term Goals Upper body dressin Lower body dressin Putting on/taking off footwear: 5 OT Intermediate Goals Intermediate Goals Time Frame: April 08, 2020 Eating (QC): 6 Oral Hygiene (QC): 6 Toileting Hygiene (QC): 6 Shower/Bathe Self (QC): 6 Upper Body Dressing (QC): 6 Lower Body Dressing (QC): 6 On/Off Footwear (QC): 6 Additional Goals: 1-Demonstrate ADL Tasks, 2-Verbalize Understanding, 3- ImproveStrength/[place]ern 1=Demonstrate adherence to instructed precautions during ADL tasks. 2=Patient will verbalize/demonstrate understanding of assistive devices/modifications for ADL. 3=Patient will improve strength/tolerance for activity to enable patient to perform ADL's. OT Education/Plan Problem List/Assessment Assessment: Decreased Activ Tolerance, Decreased UE Strength, Impaired I ADL's, Impaired Self-Care Skills Discharge Recommendations Plan/Recommendations: Continue POC Treatment Plan/Plan of Care Patient would benefit from OT for education, treatment and training to promote independence in ADL's, mobility, safety and/or upper extremity function for ADL's. Plan of Care: ADL Retraining, Concurrent Therapy, Functional Mobility, Group Exercise/Act as Ind, UE Funct Exercise/Act Treatment Duration: March 27, 2020 Frequency: At least 5 of 7 days/Wk (IRF) Estimated Hrs Per Day: 1.5 hours per day Agreement: Yes Rehab Potential: Good Time/GCodes Start Time: 08:00 Stop Time: 09:30 Total Time Billed (hr/min): 90 Billed Treatment Time 1, ADL 6 SHAVON BARTLETT OT March 30, 2020 10:07
--- NOTE | 2020-03-30 10:58 | Physical Therapy Daily Note ---
PT Daily Note-Current Subjective Pt. states she doesnt know when she may be going home. Feels stronger every day Pain Location: No Pain Reported Mental Status Patient Orientation: Normal For Age Transfers SCALE: Activities may be completed with or without assistive devices. 9-Xynyteshsf-jqwjakr completes the activity by him/herself with no assistance from a helper. 5-Set-up or Clean-up Assistance-helper sets up or cleans up; patient completes activity. [place] assists only prior to or following the activity. 4-Supervision or Touching Assistance-helper provides verbal cues and/or touching/steadying and/or contact guard assistance as patient completes activity. Assistance may be provided throughout the activity or intermittently. 3-Partial/Moderate Assistance-helper does LESS THAN HALF the effort. [place] lifts, holds or supports trunk or limbs, but provides less than half the effort. 2-Substantial/Maximal Assistance-helper does MORE THAN HALF the effort. [place] lifts or holds trunk or limbs and provides more than half the effort. 1-Ancoxdzyk-ncmvdh does ALL the effort. Patient does none of the effort to complete the activity. Or, the assistance of 2 or more helpers is required for the patient to complete the activity. If activity was not attempted, code reason: 7-Patient Refused. 9-Not Applicable-not attempted and the patient did not perform the activity before the current illness, exacerbation or injury. 10-Not Attempted due to Environmental Limitations-(lack of equipment, weather restraints, etc.). 88-Not Attempted due to Medical Conditions or Safety Concerns. Roll Left & Right (QC): 6 Sit to Lying (QC): 6 Lying to Sitting/Side of Bed(Q: 6 Sit to Stand (QC): 6 Chair/Fej-ll-Rtvtw Xfer(QC): 6 Toilet Transfer (QC): 6 Car Transfer (QC): 6 Weight Bearing Right Lower Extremity: Right Full Weight Bearing Left Lower Extremity: Left Full Weight Bearing Gait Training Does the Patient Walk?: Yes Walk 10 feet (QC): 6 Walk 50 ft with 2 Turns(QC): 6 Walk 150 ft (QC): 6 Walking 10ft/uneven surface-QC: 6 Gait Persons Needed: 1 Gait Assistive Device: FWW slow, moderate amt wt on FWW, no LOB Stair Training Stair Training: Handrails/: 2 handrails #of Steps: 4 1 Step (curb) (QC): 4 4 Steps (QC): 4 12 Steps (QC): 88 Stairs: Pattern: Reciprocal CGA and some instruction for steps and sequence Exercises Supine Ex: Bridging, Ankle pumps, Quad Set, Rolling, Glut sets, Heel Slides, Short Arc Quads, Scooting, Straight leg raise, Hip abd/add Supine Reps: 15 NuStep Minutes: 10 NuStep Workload: 4 Assessment Current Status: Good Progress PT Short Term Goals Short Term Goals Time Frame: Mar 20, 2020 Roll Left & Right: 3 Sit to lyin Lying to sitting on side of be: 3 Sit to stand: 4 Chair/zgh-ne-yiice transfer: 4 Walk 10 feet: 4 Walk 50 feet with two turns: 4 Walk 150 feet: 4 PT Proposal Coordinator Goals Proposal Coordinator Goals PT Proposal Coordinator Goals Time Frame: April 03, 2020 Roll Left & Right (QC): 6 Sit to Lying (QC): 6 Lying-Sitting on Side/Bed(QC): 6 Sit to Stand (QC): 6 Chair/Hax-ki-Zxpgt Xfer(QC): 6 Toilet Transfer (QC): 6 Car Transfer (QC): 6 Does the Patient Walk: Yes Walk 10 feet (QC): 6 Walk 50ft with 2 Turns (QC): 6 Walk 150 ft (QC): 6 Walking 10ft on Uneven Surface: 6 1 Step (curb) (QC): 4 4 Steps (QC): 4 12 Steps (QC): 88 Picking up an Object (QC): 88 Wheel 50 feet with 2 turns (QC: 88 Wheel 150 feet: 88 PT Plan Treatment/Plan Treatment Plan: Continue Plan of Care Treatment Plan: Bed Mobility, Education, Functional Activity Fern, Functional Strength, Group Therapy, Gait, Safety, Therapeutic Exercise, Transfers Treatment Duration: April 03, 2020 Frequency: At least 5 of 7 days/Wk (IRF) Estimated Hrs Per Day: 1.5 hours per day Patient and/or Family Agrees t: Yes Safety Risks/Education Patient Education: Gait Training, Transfer Techniques, Steps, Correct Positioning, Disease Process, Safety Issues Teaching Recipient: Patient Teaching Methods: Demonstration, Discussion Response to Teaching: Verbalize Understanding, Return Demonstration, Reinforcement Needed Time/GCodes Time In: 1000 Time Out: 1100 Total Billed Treatment Time: 60 Total Billed Treatment 1,GT15m,EX25m,FA20m LUEBBER, AN A FUNERAL PRE ARRANGEMENT COUNSELOR March 30, 2020 10:58
--- NOTE | 2020-03-30 11:35 | Physical Therapy Daily Note ---
PT Daily Note-Current Subjective Patient in bed pre tx, agrees to PT, has no complaints of pain. Appearance Patient in bed post tx with nurse call, phone, tray, all needs met. Mental Status Patient Orientation: Normal For Age Transfers SCALE: Activities may be completed with or without assistive devices. 7-Roevdgpoao-gvnqqbr completes the activity by him/herself with no assistance from a helper. 5-Set-up or Clean-up Assistance-helper sets up or cleans up; patient completes activity. [place] assists only prior to or following the activity. 4-Supervision or Touching Assistance-helper provides verbal cues and/or touching/steadying and/or contact guard assistance as patient completes activity. Assistance may be provided throughout the activity or intermittently. 3-Partial/Moderate Assistance-helper does LESS THAN HALF the effort. [place] lifts, holds or supports trunk or limbs, but provides less than half the effort. 2-Substantial/Maximal Assistance-helper does MORE THAN HALF the effort. [place] lifts or holds trunk or limbs and provides more than half the effort. 4-Voxduiywx-fglkve does ALL the effort. Patient does none of the effort to complete the activity. Or, the assistance of 2 or more helpers is required for the patient to complete the activity. If activity was not attempted, code reason: 7-Patient Refused. 9-Not Applicable-not attempted and the patient did not perform the activity before the current illness, exacerbation or injury. 10-Not Attempted due to Environmental Limitations-(lack of equipment, weather restraints, etc.). 88-Not Attempted due to Medical Conditions or Safety Concerns. Roll Left & Right (QC): 6 Sit to Lying (QC): 6 Lying to Sitting/Side of Bed(Q: 6 Sit to Stand (QC): 5 Chair/Sfw-gn-Bihfk Xfer(QC): 5 Weight Bearing Right Lower Extremity: Right Full Weight Bearing Left Lower Extremity: Left Full Weight Bearing Gait Training Distance: 300'x2, 120' Walk 10 feet (QC): 4 Walk 50 ft with 2 Turns(QC): 4 Walk 150 ft (QC): 4 Gait Assistive Device: FWW SBA, slow but steady ambulation Exercises Standing: Hip Abduction, Heel/toe raises, Marching, Mini squats Standing Reps: 15 Treatments bed mobility and transfers, ambulation, functional strengthening Assessment Current Status: Fair Progress Patient tried ambulating in the parallel bars without use of UE's and she was able to walk from one end to the other but has a significant trendelenburg gait and hip weakness. PT Short Term Goals Short Term Goals Time Frame: Mar 20, 2020 Roll Left & Right: 3 Sit to lyin Lying to sitting on side of be: 3 Sit to stand: 4 Chair/rtd-ee-gzudd transfer: 4 Walk 10 feet: 4 Walk 50 feet with two turns: 4 Walk 150 feet: 4 PT Shelter Goals Shelter Goals PT Shelter Goals Time Frame: April 03, 2020 Roll Left & Right (QC): 6 Sit to Lying (QC): 6 Lying-Sitting on Side/Bed(QC): 6 Sit to Stand (QC): 6 Chair/Drb-gt-Xuqhu Xfer(QC): 6 Toilet Transfer (QC): 6 Car Transfer (QC): 6 Does the Patient Walk: Yes Walk 10 feet (QC): 6 Walk 50ft with 2 Turns (QC): 6 Walk 150 ft (QC): 6 Walking 10ft on Uneven Surface: 6 1 Step (curb) (QC): 4 4 Steps (QC): 4 12 Steps (QC): 88 Picking up an Object (QC): 88 Wheel 50 feet with 2 turns (QC: 88 Wheel 150 feet: 88 PT Plan Problem List Problem List: Activity Tolerance, Functional Strength, Safety, Balance, Gait, Transfer Treatment/Plan Treatment Plan: Continue Plan of Care Treatment Plan: Bed Mobility, Education, Functional Activity Fern, Functional Strength, Group Therapy, Gait, Safety, Therapeutic Exercise, Transfers Treatment Duration: April 03, 2020 Frequency: At least 5 of 7 days/Wk (IRF) Estimated Hrs Per Day: 1.5 hours per day Patient and/or Family Agrees t: Yes Safety Risks/Education Patient Education: Gait Training, Transfer Techniques, Correct Positioning, Safety Issues Teaching Recipient: Patient Teaching Methods: Demonstration, Discussion Response to Teaching: Reinforcement Needed Time/GCodes Time In: 1105 Time Out: 1135 Total Billed Treatment Time: 30 Total Billed Treatment 1 visit GT 20' EX 10' KEI CRUZ PT March 30, 2020 11:34
[2020-03-30 16:00] VITALS: BP 146/91
[2020-03-31 05:57] VITALS: BP 132/86
[2020-03-31] MEDS: NYSTATIN PO SCH ×16 (06:36→21:25)
[2020-03-31] MEDS: [UNRECOGNIZED DRUG - OTHER] PO SCH ×16 (06:36→21:25)
[2020-03-31] MEDS: CATHETER FLUSH 10 ML SYR IV SCH ×3 (06:36→21:26)
[2020-03-31] MEDS: PREDNISOLONE PO SCH ×16 (06:36→21:25)
[2020-03-31 08:30] VITALS: BP 135/96
--- NOTE | 2020-03-31 08:56 | Progress Note - Cardiology ---
Cardiology SOAP Progress Note Subjective: Up in chair, just completed morning care. States she feels tired, but otherwise good. No c/o CP, palpitations, syncope or near syncope. No c/o LE swelling. Objective: I&O/Vital Signs 04/01/20 04/01/20 04/01/20 05:51 08:04 09:00 Temp 36.9 Pulse 91 93 Resp 20 B/P (MAP) 132/81 (98) 132/88 (103) Pulse Ox 99 O2 Delivery Room Air Room Air 04/01/20 00:00 Intake Total 1460 ml Output Total 550 ml Balance 910 ml Constitutional: AAO x 3 Respiratory: chest is bilaterally symmetric, lungs clear to auscultation Cardiovascular: regular rate-rhythm, S1 and S2, systolic murmur Gastrointestional: soft, audible bowel sounds, other (colostomy) Extremities: no lower extremity edema bilateral Neurologic/Psychiatric: alert, grossly intact (moves extremities) Skin: No rash on exposed areas, No ulcerations on exposed areas Results/Procedures: Labs Microbiology 03/16/20 Gram Stain - Final, Complete 03/16/20 Anaerobic Culture - Final, Complete No anaerobes isolated 03/16/20 Surgical Culture - Final, Complete No growth 03/14/20 Blood Culture - Final, Complete No growth A/P: Assessment: S/p colectomy for intestinal obstruction Marked post-op anemia, managed by the [facility] - received 2 units on 03-09-2020 - management per medical services Abnormal ECG, but no evidence of ac SD CAD, h/o cor stenting at [facility] in Oct 2019. Last card cath on 03/05/20: patent stents in the mid left circumflex and the mid right coronary arteries. There is moderate diffuse disease of all coronary arteries. There is moderately severe diffuse disease of the distal left anterior descending. A small caliber obtuse marginal has 70% to 80% ostial stenosis. Normal left ventricular end- diastolic pressure. Echo of 03/05/20: LVEF 60-65%, mild to mod TR, RVSP 35-40 mmHg, mild dilatation of LA Post-op hypotension and EMIGDIO 2, resolved Plan: Continue current regimen Monitor lab from time to time BENJI WILLOUGHBY March 31, 2020 08:55
[2020-03-31] MEDS: meTOprolol TARTRATE 50 MG (LOPRESSOR) TAB PO SCH ×2 (08:58→21:24)
[2020-03-31] MEDS: CLOPIDOGREL 75 MG (PLAVIX) TABLET PO SCH (08:58)
[2020-03-31] MEDS: DOCUSATE SODIUM 100 MG (COLACE) CAP PO SCH ×2 (08:58→21:24)
[2020-03-31] MEDS: PANTOPRAZOLE 40 MG (PROTONIX) TAB PO SCH (08:58)
[2020-03-31] MEDS: ASPIRIN E.C. 81 MG (ECOTRIN) TAB PO SCH (08:58)
[2020-03-31] MEDS: SENNA W/DOCUSATE (SENOKOT S) TABLET PO SCH ×2 (08:58→21:24)
[2020-03-31] MEDS: MICONAZOLE 2% POWDER (DESENEX AF) 90 GM TOP SCH ×2 (09:03→21:26)
[2020-03-31] MEDS: NYSTATIN CREAM (MYCOSTATIN) 30 GM TUBE TP SCH ×2 (09:04→21:26)
[2020-03-31] MEDS: polyethylene glycoL POWDER 17 GM (MIRALAX) PACK PO SCH ×2 (09:05→19:50)
--- NOTE | 2020-03-31 09:39 | Occupational Ther Daily Note ---
OT Current Status-Daily Note Subjective Pt seated on EOB at start of session, agreeable to OT tx. She reported 0/10 pain at start of tx, and 3/10 at end of tx. Mental Status/Objective Patient Orientation: Normal For Age Attachments: Colostomy/Ileostomy ADL-Treatment Therapy Code Descriptions/Definitions Functional [place] Measure: 0=Not Assessed/NA 4=Minimal Assistance 1=Total Assistance 5=Supervision or Setup 2=Maximal Assistance 6=Modified [place] 3=Moderate Assistance 7=Complete IndependenceSCALE: Activities may be completed with or without assistive devices. 4-Vvibutzdoh-rvdumpg completes the activity by him/herself with no assistance from a helper. 5-Set-up or Clean-up Assistance-helper sets up or cleans up; patient completes activity. [place] assists only prior to or following the activity. 4-Supervision or Touching Assistance-helper provides verbal cues and/or touching/steadying and/or contact guard assistance as patient completes activity. Assistance may be provided throughout the activity or intermittently. 3-Partial/Moderate Assistance-helper does LESS THAN HALF the effort. [place] lifts, holds or supports trunk or limbs, but provides less than half the effort. 2-Substantial/Maximal Assistance-helper does MORE THAN HALF the effort. [place] lifts or holds trunk or limbs and provides more than half the effort. 5-Zxkdtcngb-qgvmim does ALL the effort. Patient does none of the effort to complete the activity. Or, the assistance of 2 or more helpers is required for the patient to complete the activity. If activity was not attempted, code reason: 7-Patient Refused. 9-Not Applicable-not attempted and the patient did not perform the activity before the current illness, exacerbation or injury. 10-Not Attempted due to Environmental Limitations-(lack of equipment, weather restraints, etc.). 88-Not Attempted due to Medical Conditions or Safety Concerns. Eating (QC): 6 (per pt report) Oral Hygiene (QC): 6 (ind seated at sink) Shower/Bathe Self (QC): 4 (Pt completed showering after OT set up shower, covering dressing/ostomy/IV. Pt asked for SBA during standing at [facility], pt washed buttocks and periarea without difficulty, no LOB) Upper Body Dressing (QC): 5 Lower Body Dressing (QC): 5 On/Off Footwear: 5 Toileting Hygiene (QC): 3 (min A emptying ostomy. Pt able to empty ostomy into container as OT held container for pt. SBA for urination, Pt able to complete clothing management and hygiene.) Toilet Transfer (QC): 4 (SBA) Other Treatment Pt seated EOB agreed to OT session with focus on ADLs. Pt transferred to a chair in the restroom in order to empty ostomy, then transferred to [facility] [place] in order to complete toileting. Pt transferred to the shower, completed showering, then sat at sink. Pt independently completed oral hygiene, hair brushing and oral hygiene seated at sink. Pt transferred to EOB where nursing provided meds and changed pts dressing as OT cleaned up after ADL tx. Pt then completed dressing seated EOB. Post OT session, pt seated EOB, call light in reach and all needs met. Education OT Patient Education: Correct positioning, Energy conservation, Modified ADL te chniques, Progress toward Goal/Update tx plan, Purpose of tx/functional activities Teaching Recipient: Patient Teaching Methods: Demonstration, Discussion Response to Teaching: Verbalize Understanding, Return Demonstration OT Short Term Goals Short Term Goals Upper body dressin Lower body dressin Putting on/taking off footwear: 5 OT Lead Loader Goals Lead Loader Goals Time Frame: April 08, 2020 Eating (QC): 6 Oral Hygiene (QC): 6 Toileting Hygiene (QC): 6 Shower/Bathe Self (QC): 6 Upper Body Dressing (QC): 6 Lower Body Dressing (QC): 6 On/Off Footwear (QC): 6 Additional Goals: 1-Demonstrate ADL Tasks, 2-Verbalize Understanding, 3-Improv eStrength/Fern 1=Demonstrate adherence to instructed precautions during ADL tasks. 2=Patient will verbalize/demonstrate understanding of assistive devices/modifications for ADL. 3=Patient will improve strength/tolerance for activity to enable patient to p erform ADL's. OT Education/Plan Problem List/Assessment Assessment: Decreased Activ Tolerance, Decreased UE Strength, Impaired I ADL's, Impaired Self-Care Skills Discharge Recommendations Plan/Recommendations: Continue POC Treatment Plan/Plan of Care Patient would benefit from OT for education, treatment and training to promote independence in ADL's, mobility, safety and/or upper extremity function for ADL' s. Plan of Care: ADL Retraining, Concurrent Therapy, Functional Mobility, Group Exercise/Act as Ind, UE Funct Exercise/Act Treatment Duration: March 27, 2020 Frequency: At least 5 of 7 days/Wk (IRF) Estimated Hrs Per Day: 1.5 hours per day Agreement: Yes Rehab Potential: Good Time/GCodes Start Time: 08:00 Stop Time: 09:30 Total Time Billed (hr/min): 90 Billed Treatment Time 1, ADL 6 (90') SHAVON BARTLETT OT March 31, 2020 09:39
--- NOTE | 2020-03-31 10:21 | PM&R Progress Note ---
Subjective HPI/CC On Admission Date Seen by Provider: March 31, 2020 Time Seen by Provider: 10:15 Subjective/Events-last exam Incision looks good but Dr. Ji will check on it because it does have some drainage Hardened stool from ileostomy will maintain on gatorade and water Overall improving immensely by the day Denies any significant pain issues Fall risk Talked to her about if she has a nausea and vomiting episode when she is at home and can't keep up her fluids she needs to go the ER for fluids No significant falls and no pain Checked meds and labs Conferred with RN Reviewed therapy notes Review of Systems General: Fatigue Gastrointestinal: Abdominal Pain Objective Exam Vital Signs Vital Signs Date Time Temp Pulse Resp B/P (MAP) Pulse Ox O2 Delivery O2 Flow Rate FiO2 03/31/20 17:15 36.2 90 18 144/96 (112) 98 Room Air Capillary Refill : Less Than 3 Seconds General Appearance: No Apparent Distress, Anxious, Chronically ill HEENT: PERRL/EOMI, Normal ENT Inspection, Pharynx Normal, Moist Mucous Membranes Neck: Full Range of Motion, Non Tender, Supple Respiratory: Chest Non Tender, Lungs Clear, No Accessory Muscle Use, No Respiratory Distress, Decreased Breath Sounds Cardiovascular: Regular Rate, Rhythm, No Gallop, No JVD, No Murmur Gastrointestinal: Normal Bowel Sounds, No Organomegaly, No Pulsatile Mass, Soft, Tenderness Back: Normal Inspection, No CVA Tenderness, No Vertebral Tenderness Extremity: Pedal Edema (2+ legs) Neurologic/Psychiatric: Alert, Oriented x3, donor services technician II-XII Norm as Tested, Depressed Affect, Motor Weakness (generalized all extremties) Skin: Normal Color Lymphatic: No Adenopathy Results/Procedures Lab Patient resulted labs reviewed. FIM Transfers Therapy Code Descriptions/Definitions Functional [place] Measure: 0=Not Assessed/NA 4=Minimal Assistance 1=Total Assistance 5=Supervision or Setup 2=Maximal Assistance 6=Modified [place] 3=Moderate Assistance 7=Complete IndependenceSCALE: Activities may be completed with or without assistive devices. 1-Ommecrtgkq-ptpovuo completes the activity by him/herself with no assistance from a helper. 5-Set-up or Clean-up Assistance-helper sets up or cleans up; patient completes activity. [place] assists only prior to or following the activity. 4-Supervision or Touching Assistance-helper provides verbal cues and/or touching/steadying and/or contact guard assistance as patient completes activity. Assistance may be provided throughout the activity or intermittently. 3-Partial/Moderate Assistance-helper does LESS THAN HALF the effort. [place] lifts, holds or supports trunk or limbs, but provides less than half the effort. 2-Substantial/Maximal Assistance-helper does MORE THAN HALF the effort. [place] lifts or holds trunk or limbs and provides more than half the effort. 2-Eorepqydv-pbfkgp does ALL the effort. Patient does none of the effort to complete the activity. Or, the assistance of 2 or more helpers is required for the patient to complete the activity. If activity was not attempted, code reason: 7-Patient Refused. 9-Not Applicable-not attempted and the patient did not perform the activity before the current illness, exacerbation or injury. 10-Not Attempted due to Environmental Limitations-(lack of equipment, weather restraints, etc.). 88-Not Attempted due to Medical Conditions or Safety Concerns. Roll Left to Right (QC): 6 Sit to Lying (QC): 6 Sit to Stand (QC): 5 Chair/Lkg-ew-Iiijz Xfer(QC): 5 Car Transfer (QC): 6 Gait Training Does the Patient Walk?: Yes Distance: 300'x2, 120' Walk 10 feet (QC): 4 Walk 50 ft with 2 Turns(QC): 4 Walk 150 ft (QC): 4 Walking 10ft/uneven surface-QC: 6 Gait Persons Needed: 1 Gait Assistive Device: FWW Wheelchair Training Does the Pt Use a Wheelchair?: No Wheel 50 ft with 2 turns (QC): 9 Wheel 150 ft (QC): 9 Stair Training Stair Training: Handrails/: 2 handrails #of Steps: 4 1 Step (curb) (QC): 4 4 Steps (QC): 4 12 Steps (QC): 88 Stairs: Pattern: Reciprocal Balance Picking up an Object (QC): 88 ADL-Treatment Eating (QC): 6 (per pt report) Oral Hygiene (QC): 6 (ind seated at sink) Shower/Bathe Self (QC): 4 (Pt completed showering after OT set up shower, covering dressing/ostomy/IV. Pt asked for SBA during standing at [facility], pt washed buttocks and periarea without difficulty, no LOB) Upper Body Dressing (QC): 5 Lower Body Dressing (QC): 5 On/Off Footwear (QC): 5 Toileting Hygiene (QC): 3 (min A emptying ostomy. Pt able to empty ostomy into container as OT held container for pt. 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 Anasarca much improved now after Lasix last week Hirsutism Poor albumin level improving with good nutrition Sore mouth added Nystatin and Magic mouthwash resolving so will DC Nystatin S&S s/p fever Zosyn added by Dr Taveras empirically now DC Ascites s/p paracentesis just bloody serous NGTD Anemia s/p transfusions 2 units 03/17/20 now hgb 10 with iron infusions completed Situational depression Emesis causing ARF and volume depletion giving gentle IVF 03/27/20 and 03/28/20 and DC 03/29/20 Plan: Mouth treatment is improving status IRF protocol Lab monitored Check labs periodically Wound care to iliostomy site Paracentesis completed Emesis treatment IVF DC (1) S/P colectomy (2) Ileostomy in place (3) Hirsutism (4) Tachycardia (5) Anasarca (6) Anemia (7) Debility (8) Sigmoid volvulus (9) Leukocytosis (10) Acute kidney injury (11) Hyponatremia (12) Coronary artery disease (13) Abdominal pain Status: Acute (14) Elevated troponin (15) S/P cardiac cath SESAR BEEBE DO March 31, 2020 10:21
--- NOTE | 2020-03-31 10:53 | Physical Therapy Daily Note ---
PT Daily Note-Current Subjective Pt in restroom upon arrival. Pt agrees to PT for QC scoring for anticipated DC. Mental Status Patient Orientation: Person, Place, Time, Situation Attachments: Colostomy/Ileostomy Transfers SCALE: Activities may be completed with or without assistive devices. 2-Cdyxqccjgp-snlbxov completes the activity by him/herself with no assistance from a helper. 5-Set-up or Clean-up Assistance-helper sets up or cleans up; patient completes activity. [place] assists only prior to or following the activity. 4-Supervision or Touching Assistance-helper provides verbal cues and/or touching/steadying and/or contact guard assistance as patient completes activity. Assistance may be provided throughout the activity or intermittently. 3-Partial/Moderate Assistance-helper does LESS THAN HALF the effort. [place] lifts, holds or supports trunk or limbs, but provides less than half the effort. 2-Substantial/Maximal Assistance-helper does MORE THAN HALF the effort. [place] lifts or holds trunk or limbs and provides more than half the effort. 7-Zyffnpuvy-txctcp does ALL the effort. Patient does none of the effort to complete the activity. Or, the assistance of 2 or more helpers is required for the patient to complete the activity. If activity was not attempted, code reason: 7-Patient Refused. 9-Not Applicable-not attempted and the patient did not perform the activity be fore the current illness, exacerbation or injury. 10-Not Attempted due to Environmental Limitations-(lack of equipment, weather restraints, etc.). 88-Not Attempted due to Medical Conditions or Safety Concerns. Roll Left & Right (QC): 6 Sit to Lying (QC): 6 Lying to Sitting/Side of Bed(Q: 6 Sit to Stand (QC): 6 Chair/Dsb-ua-Safut Xfer(QC): 6 Toilet Transfer (QC): 6 Car Transfer (QC): 6 Weight Bearing Right Lower Extremity: Right Full Weight Bearing Left Lower Extremity: Left Full Weight Bearing Gait Training Does the Patient Walk?: Yes Distance: 100', 150' Walk 10 feet (QC): 6 Walk 50 ft with 2 Turns(QC): 6 Walk 150 ft (QC): 6 Walking 10ft/uneven surface-QC: 6 Gait Persons Needed: 1 Gait Assistive Device: FWW Wheelchair Training Does the Pt Use a Wheelchair?: No Stair Training Stair Training: Handrails/: 2 handrails #of Steps: 4 1 Step (curb) (QC): 6 4 Steps (QC): 6 12 Steps (QC): 88 Stairs: Pattern: Step to Pt reports 4 steps is all she can do. Balance Picking up an Object (QC): 5 Exercises NuStep Minutes: 15 NuStep Workload: 4 Treatments Pt finishes in restroom before leaving room for Rx. Pt completes QC scoring items listed above as well as ambulates in hallway and uses NuStep for 15m at WL 4. Pt returns to room and rest Supine in bed at end of Rx with all needs met, call light in hand. Assessment Current Status: Good Progress Pt tolerates Rx well, needs occasional RB. PT Short Term Goals Short Term Goals Time Frame: Mar 20, 2020 Roll Left & Right: 3 Sit to lyin Lying to sitting on side of be: 3 Sit to stand: 4 Chair/klg-dn-dkvbw transfer: 4 Walk 10 feet: 4 Walk 50 feet with two turns: 4 Walk 150 feet: 4 PT Engraver [employer]namental [employer] Goals Engraver Ornamental Design Goals PT Intermediate Goals Time Frame: April 03, 2020 Roll Left & Right (QC): 6 Sit to Lying (QC): 6 Lying-Sitting on Side/Bed(QC): 6 Sit to Stand (QC): 6 Chair/Eho-cr-Jcsev Xfer(QC): 6 Toilet Transfer (QC): 6 Car Transfer (QC): 6 Does the Patient Walk: Yes Walk 10 feet (QC): 6 Walk 50ft with 2 Turns (QC): 6 Walk 150 ft (QC): 6 Walking 10ft on Uneven Surface: 6 1 Step (curb) (QC): 4 4 Steps (QC): 4 12 Steps (QC): 88 Picking up an Object (QC): 88 Wheel 50 feet with 2 turns (QC: 88 Wheel 150 feet: 88 PT Plan Problem List Problem List: Activity Tolerance Treatment/Plan Treatment Plan: Continue Plan of Care Treatment Plan: Bed Mobility, Education, Functional Activity Fern, Functional Strength, Group Therapy, Gait, Safety, Therapeutic Exercise, Transfers Treatment Duration: April 03, 2020 Frequency: At least 5 of 7 days/Wk (IRF) Estimated Hrs Per Day: 1.5 hours per day Patient and/or Family Agrees t: Yes Safety Risks/Education Patient Education: Steps, Correct Positioning, Safety Issues Teaching Recipient: Patient Teaching Methods: Discussion Response to Teaching: Verbalize Understanding Time/GCodes Time In: 930 Time Out: 1030 Total Billed Treatment Time: 60 Total Billed Treatment 1, GT (15m), FA x2 (30m) & EX (15m) PARTH TONEY BRICK MACHINE OPERATOR March 31, 2020 10:53
--- NOTE | 2020-03-31 13:12 | Progress Note - Surgery ---
Subjective Time Seen by a Provider: 12:43 Subjective/Events-last exam Pt seen and examined, appears to have better color and is a little stronger. Review of Systems Cardiovascular: No: Chest Pain, Palpitations Gastrointestinal: No: Nausea, Vomiting, Abdominal Pain Objective Exam Vital Signs Date Time Temp Pulse Resp B/P (MAP) Pulse Ox O2 Delivery O2 Flow Rate FiO2 03/31/20 09:00 Room Air 03/31/20 05:57 36.2 81 20 132/86 (101) 100 Room Air 03/30/20 20:40 Room Air 03/30/20 16:00 36.8 87 16 146/91 (109) 97 Room Air I & O 03/31/20 07:00 Intake Total 2080 ml Output Total 825 ml Balance 1255 ml Capillary Refill : Less Than 3 Seconds General Appearance: No Apparent Distress, Anxious, Chronically ill HEENT: PERRL/EOMI, Moist Mucous Membranes Respiratory: Chest Non Tender, Lungs Clear, No Accessory Muscle Use, No Respiratory Distress Cardiovascular: Regular Rate, Rhythm, No Murmur Gastrointestinal: soft, other (incision does not appear infected, skin slightly pulled apart in some places of incision Ileostomy + output ostomy pink) Neurologic/Psychiatric: Alert, Oriented x3, Depressed Affect, Motor Weakness (generalized all extremties) Results Lab Microbiology 03/16/20 Gram Stain - Final, Complete 03/16/20 Anaerobic Culture - Final, Complete No anaerobes isolated 03/16/20 Surgical Culture - Final, Complete No growth 03/14/20 Blood Culture - Final, Complete No growth Assessment/Plan Assessment/Plan Assessment/Plan Anemia - Hg stable Ascites -turned out to be serosanguinous; probably more sanguinous than serous Weakness - improving S/P Subtotal Colectomy Will D/C bal[place] and keep incision clean and dry; use daily soap and water. No signs of infection, edges may pull apart but should be fine. Will continue to monitor. Clinical Quality Measures DVT/VTE Risk/Contraindication: Risk Factor Score Per Nursin RFS Level Per Nursing on Admit: 4+=Very High SHEILA DE OLIVEIRA DO March 31, 2020 13:12
--- NOTE | 2020-03-31 13:35 | Physical Therapy Daily Note ---
PT Daily Note-Current Subjective Patient agrees to PT. No c/o. Mental Status Patient Orientation: Normal For Age Transfers SCALE: Activities may be completed with or without assistive devices. 2-Ejjbxyyzon-appouxb completes the activity by him/herself with no assistance from a helper. 5-Set-up or Clean-up Assistance-helper sets up or cleans up; patient completes activity. [place] assists only prior to or following the activity. 4-Supervision or Touching Assistance-helper provides verbal cues and/or touching/steadying and/or contact guard assistance as patient completes activity. Assistance may be provided throughout the activity or intermittently. 3-Partial/Moderate Assistance-helper does LESS THAN HALF the effort. [place] lifts, holds or supports trunk or limbs, but provides less than half the effort. 2-Substantial/Maximal Assistance-helper does MORE THAN HALF the effort. [place] lifts or holds trunk or limbs and provides more than half the effort. 7-Issdfgmbq-kegqkp does ALL the effort. Patient does none of the effort to c omplete the activity. Or, the assistance of 2 or more helpers is required for the patient to complete the activity. If activity was not attempted, code reason: 7-Patient Refused. 9-Not Applicable-not attempted and the patient did not perform the activity before the current illness, exacerbation or injury. 10-Not Attempted due to Environmental Limitations-(lack of equipment, weather restraints, etc.). 88-Not Attempted due to Medical Conditions or Safety Concerns. Sit to Stand (QC): 6 Weight Bearing Right Lower Extremity: Right Full Weight Bearing Left Lower Extremity: Left Full Weight Bearing Gait Training Does the Patient Walk?: Yes Distance: 500' x 3 Walk 10 feet (QC): 6 Walk 50 ft with 2 Turns(QC): 6 Walk 150 ft (QC): 6 Walking 10ft/uneven surface-QC: 6 Gait Assistive Device: FWW slow, steady gait sequence with FWW Assessment Patient tolerated treatment well and is very emotional on this date. Plan dismissal this week per report. PT Short Term Goals Short Term Goals Time Frame: Mar 20, 2020 Roll Left & Right: 3 Sit to lyin Lying to sitting on side of be: 3 Sit to stand: 4 Chair/lrv-fv-eifes transfer: 4 Walk 10 feet: 4 Walk 50 feet with two turns: 4 Walk 150 feet: 4 PT Filling Technician Goals Filling Technician Goals PT Filling Technician Goals Time Frame: April 03, 2020 Roll Left & Right (QC): 6 Sit to Lying (QC): 6 Lying-Sitting on Side/Bed(QC): 6 Sit to Stand (QC): 6 Chair/Ffe-hr-Ccbjs Xfer(QC): 6 Toilet Transfer (QC): 6 Car Transfer (QC): 6 Does the Patient Walk: Yes Walk 10 feet (QC): 6 Walk 50ft with 2 Turns (QC): 6 Walk 150 ft (QC): 6 Walking 10ft on Uneven Surface: 6 1 Step (curb) (QC): 4 4 Steps (QC): 4 12 Steps (QC): 88 Picking up an Object (QC): 88 Wheel 50 feet with 2 turns (QC: 88 Wheel 150 feet: 88 PT Plan Treatment/Plan Treatment Plan: Continue Plan of Care Treatment Plan: Bed Mobility, Education, Functional Activity Fern, Functional Strength, Group Therapy, Gait, Safety, Therapeutic Exercise, Transfers Treatment Duration: April 03, 2020 Frequency: At least 5 of 7 days/Wk (IRF) Estimated Hrs Per Day: 1.5 hours per day Patient and/or Family Agrees t: Yes Time/GCodes Time In: 1300 Time Out: 1330 Total Billed Treatment Time: 30 Total Billed Treatment 1 visit FA x 2 30 min PHIL GERBER PT March 31, 2020 13:35
--- NOTE | 2020-03-31 15:43 | Progress Note - Cardiology ---
Cardiology SOAP Progress Note Subjective: She notes gen weakness, malaise, and tiredness, but is gradually improving No cp or palp or syncope Mild exertional shortness of breath No focal weakness Objective: I&O/Vital Signs 03/31/20 03/31/20 05:57 09:00 Temp 36.2 Pulse 81 Resp 20 B/P (MAP) 132/86 (101) Pulse Ox 100 O2 Delivery Room Air Room Air 03/30/20 23:59 Intake Total 980 ml Output Total 675 ml Balance 305 ml Constitutional: AAO x 3 Respiratory: chest is bilaterally symmetric, lungs clear to auscultation Cardiovascular: regular rate-rhythm, S1 and S2, systolic murmur Gastrointestional: soft, audible bowel sounds, other (colostomy) Extremities: no lower extremity edema bilateral Neurologic/Psychiatric: alert, grossly intact (moves extremities) Skin: No rash on exposed areas, No ulcerations on exposed areas Results/Procedures: Labs Microbiology 03/16/20 Gram Stain - Final, Complete 03/16/20 Anaerobic Culture - Final, Complete No anaerobes isolated 03/16/20 Surgical Culture - Final, Complete No growth 03/14/20 Blood Culture - Final, Complete No growth Laboratory Tests 03/30/20 06:05 A/P: Assessment: S/p colectomy for intestinal obstruction Marked post-op anemia, managed by the Surgical and Hospitalist Services - received 2 units on 03-09-2020 Abnormal ECG, but no evidence of ac AR CAD, h/o cor stenting at [facility] in Oct 2019. Last card cath on 03/05/20: patent stents in the mid left circumflex and the mid right coronary arteries. There is moderate diffuse disease of all coronary arteries. There is moderately severe diffuse disease of the distal left anterior descending. A small caliber obtuse marginal has 70% to 80% ostial stenosis. Normal left ventricular end- diastolic pressure. Echo of 03/05/20: LVEF 60-65%, mild to mod TR, RVSP 35-40 mmHg, mild dilatation of LA Post-op hypotension and EMIGDIO 2, resolved Plan: * She has had a long hospitalization and a difficult post-op course, but seems to be improving now * Continue current regimen * Monitor lab from time to time * I reviewed her CV issues with her and answered questions VI KO MD FACP FAC CCDS March 31, 2020 15:43
--- NOTE | 2020-03-31 16:00 | NUR ---
Corinth removed from midline abdomen per orders. Patient was tearful with removal at times, otherwise handled procedure well. Wound cleansed with Soap and Water and new island dressing was applied.
[2020-03-31 17:15] VITALS: BP 144/96
[2020-03-31 21:25] VITALS: BP 148/96
[2020-04-01 05:51] VITALS: BP 132/81
[2020-04-01] MEDS: NYSTATIN PO SCH ×16 (06:22→21:08)
[2020-04-01] MEDS: [UNRECOGNIZED DRUG - OTHER] PO SCH ×16 (06:22→21:08)
[2020-04-01] MEDS: PREDNISOLONE PO SCH ×16 (06:22→21:08)
[2020-04-01] MEDS: CATHETER FLUSH 10 ML SYR IV SCH ×3 (06:22→21:08)
[2020-04-01] MEDS: MICONAZOLE 2% POWDER (DESENEX AF) 90 GM TOP SCH ×2 (08:03→21:20)
[2020-04-01] MEDS: DOCUSATE SODIUM 100 MG (COLACE) CAP PO SCH ×2 (08:03→21:08)
[2020-04-01] MEDS: meTOprolol TARTRATE 50 MG (LOPRESSOR) TAB PO SCH ×2 (08:03→21:08)
[2020-04-01] MEDS: CLOPIDOGREL 75 MG (PLAVIX) TABLET PO SCH (08:03)
[2020-04-01] MEDS: ASPIRIN E.C. 81 MG (ECOTRIN) TAB PO SCH (08:03)
[2020-04-01] MEDS: PANTOPRAZOLE 40 MG (PROTONIX) TAB PO SCH (08:03)
[2020-04-01 08:04] VITALS: BP 132/88
[2020-04-01] MEDS: NYSTATIN CREAM (MYCOSTATIN) 30 GM TUBE TP SCH ×2 (08:04→21:20)
--- NOTE | 2020-04-01 08:58 | Occupational Ther Daily Note ---
OT Current Status-Daily Note Subjective Pt sitting EOB at start of session, agreeable to OT tx this AM. She did not verbalize any pain during tx. Pt asks to take a shower this morning, stating she would shower daily at home. Mental Status/Objective Patient Orientation: Normal For Age Attachments: Colostomy/Ileostomy ADL-Treatment Therapy Code Descriptions/Definitions Functional [place] Measure: 0=Not Assessed/NA 4=Minimal Assistance 1=Total Assistance 5=Supervision or Setup 2=Maximal Assistance 6=Modified [place] 3=Moderate Assistance 7=Complete IndependenceSCALE: Activities may be completed with or without assistive devices. 2-Nvyqgsudwd-xuqxxvg completes the activity by him/herself with no assistance from a helper. 5-Set-up or Clean-up Assistance-helper sets up or cleans up; patient completes activity. [place] assists only prior to or following the activity. 4-Supervision or Touching Assistance-helper provides verbal cues and/or touching/steadying and/or contact guard assistance as patient completes activity. Assistance may be provided throughout the activity or intermittently. 3-Partial/Moderate Assistance-helper does LESS THAN HALF the effort. [place] lifts, holds or supports trunk or limbs, but provides less than half the effort. 2-Substantial/Maximal Assistance-helper does MORE THAN HALF the effort. [place] lifts or holds trunk or limbs and provides more than half the effort. 7-Bticqsmlw-tchqlx does ALL the effort. Patient does none of the effort to complete the activity. Or, the assistance of 2 or more helpers is required for the patient to complete the activity. If activity was not attempted, code reason: 7-Patient Refused. 9-Not Applicable-not attempted and the patient did not perform the activity before the current illness, exacerbation or injury. 10-Not Attempted due to Environmental Limitations-(lack of equipment, weather restraints, etc.). 88-Not Attempted due to Medical Conditions or Safety Concerns. Eating (QC): 6 (per pt report, she is independent with eating) Oral Hygiene (QC): 6 (independent seated at sink) Shower/Bathe Self (QC): 5 (set up, OT covered dressing/ostomy/IV. Pt completed all parts of shower. ) Upper Body Dressing (QC): 5 (set up) Lower Body Dressing (QC): 5 (set up) On/Off Footwear: 5 (set up) Toileting Hygiene (QC): 6 (pt emptied ostomy bag over toilet without difficulty) Toilet Transfer (QC): 6 Other Treatment Pt seated EOB, transferred to bathroom to complete toileting and showering. She then sat at the sink to shave, brush her teeth and brush her hair. Pt transferred to bed where nursing changed pt's dressing as OT cleaned up from ADL tx. Pt then sat EOB to complete dressing. Post OT session, pt seated EOB, call light in reach and all needs met. Education OT Patient Education: Correct positioning, Energy conservation, Modified ADL techniques, Progress toward Goal/Update tx plan, Purpose of tx/functional activities Teaching Recipient: Patient Teaching Methods: Discussion Response to Teaching: Verbalize Understanding OT Short Term Goals Short Term Goals Upper body dressin Lower body dressin Putting on/taking off footwear: 5 OT Penitentiary Goals Penitentiary Goals Time Frame: April 08, 2020 Eating (QC): 6 Oral Hygiene (QC): 6 Toileting Hygiene (QC): 6 Shower/Bathe Self (QC): 6 Upper Body Dressing (QC): 6 Lower Body Dressing (QC): 6 On/Off Footwear (QC): 6 Additional Goals: 1-Demonstrate ADL Tasks, 2-Verbalize Understanding, 3- ImproveStrength/Fern 1=Demonstrate adherence to instructed precautions during ADL tasks. 2=Patient will verbalize/demonstrate understanding of assistive devices/modifications for ADL. 3=Patient will improve strength/tolerance for activity to enable patient to perform ADL's. OT Education/Plan Problem List/Assessment Assessment: Decreased Activ Tolerance, Decreased UE Strength, Impaired I ADL's, Impaired Self-Care Skills Discharge Recommendations Plan/Recommendations: Continue POC Treatment Plan/Plan of Care Treatment,Training & Education: Yes Patient would benefit from OT for education, treatment and training to promote independence in ADL's, mobility, safety and/or upper extremity function for ADL's. Plan of Care: ADL Retraining, Concurrent Therapy, Functional Mobility, Group Exercise/Act as Ind, UE Funct Exercise/Act Treatment Duration: March 27, 2020 Frequency: At least 5 of 7 days/Wk (IRF) Estimated Hrs Per Day: 1.5 hours per day Agreement: Yes Rehab Potential: Good Time/GCodes Start Time: 08:00 Stop Time: 09:30 Total Time Billed (hr/min): 90 Billed Treatment Time 1, ADL 6 SHAVON BARTLETT OT April 01, 2020 08:58
[2020-04-01] MEDS: SENNA W/DOCUSATE (SENOKOT S) TABLET PO SCH ×2 (09:34→21:08)
[2020-04-01] MEDS: polyethylene glycoL POWDER 17 GM (MIRALAX) PACK PO SCH ×2 (09:34→21:20)
--- NOTE | 2020-04-01 10:15 | PM&R Progress Note ---
Subjective HPI/CC On Admission Date Seen by Provider: April 01, 2020 Time Seen by Provider: 10:15 Subjective/Events-last exam Up ad roro today by therapy DC planned for Monday after team meeting Major progress with emptying her own ileostomy Less drainage around the wound [place] were removed Dr. Ji thinks it was looking really good No significant falls and no pain Checked meds and labs Conferred with RN Reviewed therapy notes Review of Systems General: Fatigue Gastrointestinal: Abdominal Pain Objective Exam Vital Signs Vital Signs Date Time Temp Pulse Resp B/P (MAP) Pulse Ox O2 Delivery O2 Flow Rate FiO2 04/01/20 17:06 36.0 90 16 141/97 (112) 100 Room Air Capillary Refill : Less Than 3 Seconds General Appearance: No Apparent Distress, Anxious, Chronically ill HEENT: PERRL/EOMI, Normal ENT Inspection, Pharynx Normal, Moist Mucous Membranes Neck: Full Range of Motion, Non Tender, Supple Respiratory: Chest Non Tender, Lungs Clear, No Accessory Muscle Use, No Respir atory Distress, Decreased Breath Sounds Cardiovascular: Regular Rate, Rhythm, No Gallop, No JVD, No Murmur Gastrointestinal: Normal Bowel Sounds, No Organomegaly, No Pulsatile Mass, Soft, Tenderness Back: Normal Inspection, No CVA Tenderness, No Vertebral Tenderness Extremity: Pedal Edema (2+ legs) Neurologic/Psychiatric: Alert, Oriented x3, rustic terrazzo setter II-XII Norm as Tested, Depressed Affect, Motor Weakness (generalized all extremties) Skin: Normal Color Lymphatic: No Adenopathy Results/Procedures Lab Patient resulted labs reviewed. FIM Transfers Therapy Code Descriptions/Definitions Functional [place] Measure: 0=Not Assessed/NA 4=Minimal Assistance 1=Total Assistance 5=Supervision or Setup 2=Maximal Assistance 6=Modified [place] 3=Moderate Assistance 7=Complete IndependenceSCALE: Activities may be completed with or without assistive devices. 2-Whlhsscyzi-xwlqpix completes the activity by him/herself with no assistance from a helper. 5-Set-up or Clean-up Assistance-helper sets up or cleans up; patient completes activity. [place] assists only prior to or following the activity. 4-Supervision or Touching Assistance-helper provides verbal cues and/or touching/steadying and/or contact guard assistance as patient completes activity. Assistance may be provided throughout the activity or intermittently. 3-Partial/Moderate Assistance-helper does LESS THAN HALF the effort. [place] lifts, holds or supports trunk or limbs, but provides less than half the effort. 2-Substantial/Maximal Assistance-helper does MORE THAN HALF the effort. [place] lifts or holds trunk or limbs and provides more than half the effort. 1-Winauibcv-qnnlmi does ALL the effort. Patient does none of the effort to complete the activity. Or, the assistance of 2 or more helpers is required for the patient to complete the activity. If activity was not attempted, code reason: 7-Patient Refused. 9-Not Applicable-not attempted and the patient did not perform the activity before the current illness, exacerbation or injury. 10-Not Attempted due to Environmental Limitations-(lack of equipment, weather restraints, etc.). 88-Not Attempted due to Medical Conditions or Safety Concerns. Roll Left to Right (QC): 6 Sit to Lying (QC): 6 Sit to Stand (QC): 6 Chair/Esj-vw-Lyekd Xfer(QC): 6 Car Transfer (QC): 6 Gait Training Does the Patient Walk?: Yes Distance: 500' x 3 Walk 10 feet (QC): 6 Walk 50 ft with 2 Turns(QC): 6 Walk 150 ft (QC): 6 Walking 10ft/uneven surface-QC: 6 Gait Persons Needed: 1 Gait Assistive Device: FWW Wheelchair Training Does the Pt Use a Wheelchair?: No Wheel 50 ft with 2 turns (QC): 9 Wheel 150 ft (QC): 9 Stair Training Stair Training: Handrails/: 2 handrails #of Steps: 4 1 Step (curb) (QC): 6 4 Steps (QC): 6 12 Steps (QC): 88 Stairs: Pattern: Step to Balance Picking up an Object (QC): 5 ADL-Treatment Eating (QC): 6 (per pt report, she is independent with eating) Oral Hygiene (QC): 6 (independent seated at sink) Shower/Bathe Self (QC): 5 (set up, OT covered dressing/ostomy/IV. Pt completed all parts of shower. 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 Anasarca much improved now after Lasix last week Hirsutism Poor albumin level improving with good nutrition Sore mouth added Nystatin and Magic mouthwash resolving so will DC Nystatin S&S s/p fever Zosyn added by Dr Taveras empirically now DC Ascites s/p paracentesis just bloody serous NGTD Anemia s/p transfusions 2 units 03/17/20 now hgb 10 with iron infusions completed Situational depression Emesis causing ARF and volume depletion giving gentle IVF 03/27/20 and 03/28/20 and DC 03/29/20 Plan: Mouth treatment is improving status IRF protocol Lab monitored Check labs periodically Wound care to iliostomy site Paracentesis completed Emesis treatment IVF DC DC Monday (1) S/P colectomy (2) Ileostomy in place (3) Hirsutism (4) Tachycardia (5) Anasarca (6) Anemia (7) Debility (8) Sigmoid volvulus (9) Leukocytosis (10) Acute kidney injury (11) Hyponatremia (12) Coronary artery disease (13) Abdominal pain Status: Acute (14) Elevated troponin (15) S/P cardiac cath SESAR BEEBE DO April 01, 2020 10:15
--- NOTE | 2020-04-01 10:44 | Physical Therapy Daily Note ---
PT Daily Note-Current Subjective Pt sitting at EOB upon arrival. Pt declines need for restroom. Pt agrees to PT. Pain Location: No Pain Reported Mental Status Patient Orientation: Person, Place, Time, Situation Attachments: Colostomy/Ileostomy Transfers SCALE: Activities may be completed with or without assistive devices. 5-Biubvgvypd-bdcqwwk completes the activity by him/herself with no assistance from a helper. 5-Set-up or Clean-up Assistance-helper sets up or cleans up; patient completes activity. [place] assists only prior to or following the activity. 4-Supervision or Touching Assistance-helper provides verbal cues and/or touching/steadying and/or contact guard assistance as patient completes activity. Assistance may be provided throughout the activity or intermittently. 3-Partial/Moderate Assistance-helper does LESS THAN HALF the effort. [place] lifts, holds or supports trunk or limbs, but provides less than half the effort. 2-Substantial/Maximal Assistance-helper does MORE THAN HALF the effort. [place] lifts or holds trunk or limbs and provides more than half the effort. 5-Cgomjkbzl-rhsdct does ALL the effort. Patient does none of the effort to complete the activity. Or, the assistance of 2 or more helpers is required for the patient to complete the activity. If activity was not attempted, code reason: 7-Patient Refused. 9-Not Applicable-not attempted and the patient did not perform the activity before the current illness, exacerbation or injury. 10-Not Attempted due to Environmental Limitations-(lack of equipment, weather restraints, etc.). 88-Not Attempted due to Medical Conditions or Safety Concerns. Roll Left & Right (QC): 6 Sit to Lying (QC): 6 Lying to Sitting/Side of Bed(Q: 6 Sit to Stand (QC): 6 Chair/Hxo-eh-Yinwa Xfer(QC): 6 Toilet Transfer (QC): 6 Car Transfer (QC): 6 Weight Bearing Right Lower Extremity: Right Full Weight Bearing Left Lower Extremity: Left Full Weight Bearing Gait Training Does the Patient Walk?: Yes Distance: 150', 450' Walk 10 feet (QC): 6 Walk 50 ft with 2 Turns(QC): 6 Walk 150 ft (QC): 6 Gait Persons Needed: 1 Gait Assistive Device: FWW Wheelchair Training Does the Pt Use a Wheelchair?: No Stair Training Stair Training: Handrails/: 2 handrails #of Steps: 4 1 Step (curb) (QC): 6 4 Steps (QC): 6 12 Steps (QC): 7 Stairs: Pattern: Step to Pt states 4 steps is her max. Exercises Seated Therapy Exercises: Ankle pumps, Long arc quads, Hip flexion, Kicking activity Seated Reps: 20 NuStep Minutes: 15 NuStep Workload: 5 Treatments Pt ambulates in hallway using FWW. Pt uses NuStep 15m at WL 5 and Seated EX. Pt takes extended walk before taking RB then returning to room to rest in bed. Pt has all needs met, call light in hand. Assessment Current Status: Good Progress Pt has improved and is now Ad roro in room, Nurse notified. PT Short Term Goals Short Term Goals Time Frame: Mar 20, 2020 Roll Left & Right: 3 Sit to lyin Lying to sitting on side of be: 3 Sit to stand: 4 Chair/yjn-tw-kwudq transfer: 4 Walk 10 feet: 4 Walk 50 feet with two turns: 4 Walk 150 feet: 4 PT Hemotherapist Goals Detention Goals PT Detention Goals Time Frame: April 03, 2020 Roll Left & Right (QC): 6 Sit to Lying (QC): 6 Lying-Sitting on Side/Bed(QC): 6 Sit to Stand (QC): 6 Chair/Tdc-jx-Guuvx Xfer(QC): 6 Toilet Transfer (QC): 6 Car Transfer (QC): 6 Does the Patient Walk: Yes Walk 10 feet (QC): 6 Walk 50ft with 2 Turns (QC): 6 Walk 150 ft (QC): 6 Walking 10ft on Uneven Surface: 6 1 Step (curb) (QC): 4 4 Steps (QC): 4 12 Steps (QC): 88 Picking up an Object (QC): 88 Wheel 50 feet with 2 turns (QC: 88 Wheel 150 feet: 88 PT Plan Problem List Problem List: Activity Tolerance Treatment/Plan Treatment Plan: Continue Plan of Care Treatment Plan: Bed Mobility, Education, Functional Activity Fern, Functional Strength, Group Therapy, Gait, Safety, Therapeutic Exercise, Transfers Treatment Duration: April 03, 2020 Frequency: At least 5 of 7 days/Wk (IRF) Estimated Hrs Per Day: 1.5 hours per day Patient and/or Family Agrees t: Yes Safety Risks/Education Patient Education: Correct Positioning, Safety Issues Teaching Recipient: Patient Teaching Methods: Discussion Response to Teaching: Verbalize Understanding Time/GCodes Time In: 930 Time Out: 1030 Total Billed Treatment Time: 60 Total Billed Treatment 1, GT x2 (30m). FA (10m) & EX (20m) PARTH TONEY COAL SHOVELER April 01, 2020 10:44
--- NOTE | 2020-04-01 12:13 | Progress Note - Cardiology ---
Cardiology SOAP Progress Note Subjective: Up on the side of the bed. States she is feeling well Objective: I&O/Vital Signs 04/03/20 04/03/20 05:47 08:51 Temp 36.0 Pulse 87 Resp 20 B/P (MAP) 143/94 (110) Pulse Ox 98 O2 Delivery Room Air Room Air 04/03/20 00:00 Intake Total 640 ml Balance 640 ml Constitutional: AAO x 3 Respiratory: chest is bilaterally symmetric, lungs clear to auscultation Cardiovascular: regular rate-rhythm, S1 and S2, systolic murmur Gastrointestional: soft, audible bowel sounds, other (colostomy) Extremities: no lower extremity edema bilateral Neurologic/Psychiatric: alert, grossly intact (moves extremities) Skin: No rash on exposed areas, No ulcerations on exposed areas Results/Procedures: Labs Microbiology 03/16/20 Gram Stain - Final, Complete 03/16/20 Anaerobic Culture - Final, Complete No anaerobes isolated 03/16/20 Surgical Culture - Final, Complete No growth 03/14/20 Blood Culture - Final, Complete No growth A/P: Assessment: S/p colectomy for intestinal obstruction Marked post-op anemia, managed by the Surgical and Hospitalist Services - received 2 units on 03-09-2020 Abnormal ECG, but no evidence of ac [place] CAD, h/o cor stenting at [facility] in Oct 2019. Last card cath on 03/05/20: patent stents in the mid left circumflex and the mid right coronary arteries. There is moderate diffuse disease of all coronary arteries. There is moderately severe diffuse disease of the distal left anterior descending. A small caliber obtuse marginal has 70% to 80% ostial stenosis. Normal left ventricular end- diastolic pressure. Echo of 03/05/20: LVEF 60-65%, mild to mod TR, RVSP 35-40 mmHg, mild dilatation of LA Post-op hypotension and EMIGDIO 2, resolved Plan: * She has had a long hospitalization and a difficult post-op course, but seems to be improving now * Continue current regimen * Monitor lab from time to time * I reviewed her CV issues with her and answered questions BENJI WILLOUGHBY April 01, 2020 12:13
--- NOTE | 2020-04-01 14:09 | Physical Therapy Daily Note ---
PT Daily Note-Current Subjective Pt asleep Supine in bed upon arrival. Pt agrees to PT. Pain Location: No Pain Reported Mental Status Patient Orientation: Person, Place, Time, Situation Attachments: Colostomy/Ileostomy Transfers SCALE: Activities may be completed with or without assistive devices. 2-Cyogsndxpc-oijdebo completes the activity by him/herself with no assistance from a helper. 5-Set-up or Clean-up Assistance-helper sets up or cleans up; patient completes activity. [place] assists only prior to or following the activity. 4-Supervision or Touching Assistance-helper provides verbal cues and/or touching/steadying and/or contact guard assistance as patient completes activity. Assistance may be provided throughout the activity or intermittently. 3-Partial/Moderate Assistance-helper does LESS THAN HALF the effort. [place] li fts, holds or supports trunk or limbs, but provides less than half the effort. 2-Substantial/Maximal Assistance-helper does MORE THAN HALF the effort. [place] lifts or holds trunk or limbs and provides more than half the effort. 2-Rphuzlchi-jgjkvp does ALL the effort. Patient does none of the effort to complete the activity. Or, the assistance of 2 or more helpers is required for the patient to complete the activity. If activity was not attempted, code reason: 7-Patient Refused. 9-Not Applicable-not attempted and the patient did not perform the activity before the current illness, exacerbation or injury. 10-Not Attempted due to Environmental Limitations-(lack of equipment, weather restraints, etc.). 88-Not Attempted due to Medical Conditions or Safety Concerns. Roll Left & Right (QC): 6 Sit to Lying (QC): 6 Lying to Sitting/Side of Bed(Q: 6 Sit to Stand (QC): 6 Chair/Gpa-ao-Kwsjl Xfer(QC): 6 Toilet Transfer (QC): 6 Weight Bearing Right Lower Extremity: Right Full Weight Bearing Left Lower Extremity: Left Full Weight Bearing Gait Training Does the Patient Walk?: Yes Distance: 750' Walk 10 feet (QC): 6 Walk 50 ft with 2 Turns(QC): 6 Walk 150 ft (QC): 6 Gait Persons Needed: 1 Gait Assistive Device: FWW Wheelchair Training Does the Pt Use a Wheelchair?: No Treatments Pt transfers from bed to EOB and dons socks & shoes. Pt ambulates in hallway and on main floor of hospital. Pt returns to ARU then back to room to rest in bed. Pt has all needs met, call light in hand. Assessment Current Status: Good Progress Pt tolerates Rx well. PT Short Term Goals Short Term Goals Time Frame: Mar 20, 2020 Roll Left & Right: 3 Sit to lyin Lying to sitting on side of be: 3 Sit to stand: 4 Chair/jbb-ot-dkayd transfer: 4 Walk 10 feet: 4 Walk 50 feet with two turns: 4 Walk 150 feet: 4 PT Group Home Goals Tomographic Tech Goals PT Tomographic Tech Goals Time Frame: April 03, 2020 Roll Left & Right (QC): 6 Sit to Lying (QC): 6 Lying-Sitting on Side/Bed(QC): 6 Sit to Stand (QC): 6 Chair/Krq-qm-Olycq Xfer(QC): 6 Toilet Transfer (QC): 6 Car Transfer (QC): 6 Does the Patient Walk: Yes Walk 10 feet (QC): 6 Walk 50ft with 2 Turns (QC): 6 Walk 150 ft (QC): 6 Walking 10ft on Uneven Surface: 6 1 Step (curb) (QC): 4 4 Steps (QC): 4 12 Steps (QC): 88 Picking up an Object (QC): 88 Wheel 50 feet with 2 turns (QC: 88 Wheel 150 feet: 88 PT Plan Problem List Problem List: Activity Tolerance Treatment/Plan Treatment Plan: Continue Plan of Care Treatment Plan: Bed Mobility, Education, Functional Activity Fern, Functional Strength, Group Therapy, Gait, Safety, Therapeutic Exercise, Transfers Treatment Duration: April 03, 2020 Frequency: At least 5 of 7 days/Wk (IRF) Estimated Hrs Per Day: 1.5 hours per day Patient and/or Family Agrees t: Yes Safety Risks/Education Patient Education: Correct Positioning, Safety Issues Teaching Recipient: Patient Teaching Methods: Discussion Response to Teaching: Verbalize Understanding Time/GCodes Time In: 1300 Time Out: 1330 Total Billed Treatment Time: 30 Total Billed Treatment 1, GT x2 (30m) PARTH TONEY PTA April 01, 2020 14:09
--- NOTE | 2020-04-01 15:19 | NUR ---
CM/SS PATIENT CARE CONFERENCE SUMMARY Reviewed Summary with patient and she is in agreement to the plan for discharge Monday, April 06, 2020 to the home of her friend Donna Perez. Plate Maker updated Donna by phone x 2 today. Understanding is that patient will be as independent as possible prior to coming to Donna's home regarding ostomy changes and routine wound dressing as needed. Donna indicates she has spoken to patient about this directly and patient indicates to publicity writer same understanding. Team aware, nursing staff working in partnership with patient regarding education, demonstration, and return demonstration. Goal is that patient will become confident and comfortable solo within reasonable situations. HHC: Initiated with [facility] due to patient's jasbir care application within our system and otherwise uninsured status. Requesting RN, PT OT. DME: Patient will need a FWW, Donna has one at her home patient can use. She has other assistive devices if needed.
[2020-04-01 17:06] VITALS: BP 141/97
--- NOTE | 2020-04-01 18:35 | NUR ---
Education and hands-on learning opportunity provided for patient regarding Ostomy care and changing of appliance and surgical site wound dressing. Ostomy supplies gathered and placed on bedside table for patient to look at and practice with. This nurse lead patient in step by step process of preparing supplies, using pattern to cut appliance to fit, use of adhesive materials, removal and cleaning of area, prepping skin, and how to apply to skin and place bag. Appliance did not need to be replaced today as it was replaced on 03/30/20 and is continuing to hold well. Additional reading material provided for patient. Patient did very well with learning experience. Plan is to replace appliance with patient doing hands on care for next ostomy appliance change within the next few days. Patient was also able to do all of the care and changing of surgical site dressing with nurse instructing her through the procedure. Nursing will continue to teach and provide patient with hands on, independence building opportunities.
[2020-04-02 05:40] VITALS: BP 144/95
[2020-04-02] MEDS: PREDNISOLONE PO SCH ×16 (06:32→21:09)
[2020-04-02] MEDS: CATHETER FLUSH 10 ML SYR IV SCH ×3 (06:32→21:15)
[2020-04-02] MEDS: [UNRECOGNIZED DRUG - OTHER] PO SCH ×16 (06:32→21:09)
[2020-04-02] MEDS: NYSTATIN PO SCH ×16 (06:32→21:09)
[2020-04-02 08:00] VITALS: BP 133/86
--- NOTE | 2020-04-02 08:23 | Progress Note - Cardiology ---
Cardiology SOAP Progress Note Objective: I&O/Vital Signs 04/03/20 04/03/20 05:47 08:51 Temp 36.0 Pulse 87 Resp 20 B/P (MAP) 143/94 (110) Pulse Ox 98 O2 Delivery Room Air Room Air 04/03/20 00:00 Intake Total 640 ml Balance 640 ml Constitutional: AAO x 3 Respiratory: chest is bilaterally symmetric, lungs clear to auscultation Cardiovascular: regular rate-rhythm, S1 and S2, systolic murmur Gastrointestional: soft, audible bowel sounds, other (colostomy) Extremities: no lower extremity edema bilateral Neurologic/Psychiatric: alert, grossly intact (moves extremities) Skin: No rash on exposed areas, No ulcerations on exposed areas Results/Procedures: Labs Microbiology 03/16/20 Gram Stain - Final, Complete 03/16/20 Anaerobic Culture - Final, Complete No anaerobes isolated 03/16/20 Surgical Culture - Final, Complete No growth 03/14/20 Blood Culture - Final, Complete No growth A/P: Assessment: S/p colectomy for intestinal obstruction Marked post-op anemia, managed by the Surgical and Hospitalist Services - received 2 units on 03-09-2020 Abnormal ECG, but no evidence of ac NV CAD, h/o cor stenting at [facility] in Oct 2019. Last card cath on 03/05/20: patent stents in the mid left circumflex and the mid right coronary arteries. There is moderate diffuse disease of all coronary arteries. There is moderately severe diffuse disease of the distal left anterior descending. A small caliber obtuse marginal has 70% to 80% ostial stenosis. Normal left ventricular end- diastolic pressure. Echo of 03/05/20: LVEF 60-65%, mild to mod TR, RVSP 35-40 mmHg, mild dilatation of LA Post-op hypotension and EMIGDIO 2, resolved Plan: * She has had a long hospitalization and a difficult post-op course, but seems to be improving now * Continue current regimen * Monitor lab from time to time * We have reviewed her CV issues with her and answered questions * Plan is to discharge home with services on Monday BENJI WILLOUGHBY April 02, 2020 08:23
--- NOTE | 2020-04-02 09:01 | Occupational Ther Daily Note ---
OT Current Status-Daily Note Subjective Pt laying in bed at start of session, agreeable to OT Tx. She does not report pain during session. Mental Status/Objective Patient Orientation: Normal For Age Attachments: Colostomy/Ileostomy ADL-Treatment Therapy Code Descriptions/Definitions Functional [place] Measure: 0=Not Assessed/NA 4=Minimal Assistance 1=Total Assistance 5=Supervision or Setup 2=Maximal Assistance 6=Modified [place] 3=Moderate Assistance 7=Complete IndependenceSCALE: Activities may be completed with or without assistive devices. 0-Rspicbcziy-gynetof completes the activity by him/herself with no assistance from a helper. 5-Set-up or Clean-up Assistance-helper sets up or cleans up; patient completes activity. [place] assists only prior to or following the activity. 4-Supervision or Touching Assistance-helper provides verbal cues and/or touching/steadying and/or contact guard assistance as patient completes activ ity. Assistance may be provided throughout the activity or intermittently. 3-Partial/Moderate Assistance-helper does LESS THAN HALF the effort. [place] lifts, holds or supports trunk or limbs, but provides less than half the effort. 2-Substantial/Maximal Assistance-helper does MORE THAN HALF the effort. [place] lifts or holds trunk or limbs and provides more than half the effort. 0-Rghpgvdde-kzfivo does ALL the effort. Patient does none of the effort to complete the activity. Or, the assistance of 2 or more helpers is required for the patient to complete the activity. If activity was not attempted, code reason: 7-Patient Refused. 9-Not Applicable-not attempted and the patient did not perform the activity before the current illness, exacerbation or injury. 10-Not Attempted due to Environmental Limitations-(lack of equipment, weather restraints, etc.). 88-Not Attempted due to Medical Conditions or Safety Concerns. Eating (QC): 6 Oral Hygiene (QC): 6 (seated at sink) Shower/Bathe Self (QC): 5 (set up assist. ) Upper Body Dressing (QC): 5 Lower Body Dressing (QC): 5 On/Off Footwear: 5 Toileting Hygiene (QC): 6 (emptied ostomy bag over toilet) Toilet Transfer (QC): 6 Other Treatment Pt laying in bed, transferred supine to sit EOB, then into the bathroom to the toilet with FWW, IND. She completed toileting, then to the shower for showering. Post shower, pt sat at sink to complete oral hygiene and shaving independently. Pt transferred to bedroom to seat with arm supports where she got dressed. Post OT session, pt seated in chair, call light in reach and all needs met, nursing present to assist pt with changing her dressing. Education OT Patient Education: Correct positioning, Energy conservation, Modified ADL techniques, Progress toward Goal/Update tx plan, Purpose of tx/functional activities Teaching Recipient: Patient Teaching Methods: Discussion Response to Teaching: Verbalize Understanding OT Short Term Goals Short Term Goals Upper body dressin Lower body dressin Putting on/taking off footwear: 5 OT Detention Goals Preparation Operator Goals Time Frame: April 08, 2020 Eating (QC): 6 Oral Hygiene (QC): 6 Toileting Hygiene (QC): 6 Shower/Bathe Self (QC): 6 Upper Body Dressing (QC): 6 Lower Body Dressing (QC): 6 On/Off Footwear (QC): 6 Additional Goals: 1-Demonstrate ADL Tasks, 2-Verbalize Understanding, 3- ImproveStrength/[place] 1=Demonstrate adherence to instructed precautions during ADL tasks. 2=Patient will verbalize/demonstrate understanding of assistive devices/modifications for ADL. 3=Patient will improve strength/tolerance for activity to enable patient to perform ADL's. OT Education/Plan Problem List/Assessment Assessment: Decreased Activ Tolerance, Decreased Safety Aware, Impaired I ADL's, Impaired Self-Care Skills Discharge Recommendations Plan/Recommendations: Continue POC Treatment Plan/Plan of Care Treatment,Training & Education: Yes Patient would benefit from OT for education, treatment and training to promote independence in ADL's, mobility, safety and/or upper extremity function for ADL's. Plan of Care: ADL Retraining, Concurrent Therapy, Functional Mobility, Group Exercise/Act as Ind, UE Funct Exercise/Act Treatment Duration: March 27, 2020 Frequency: At least 5 of 7 days/Wk (IRF) Estimated Hrs Per Day: 1.5 hours per day Agreement: Yes Rehab Potential: Good Time/GCodes Start Time: 08:00 Stop Time: 09:15 Total Time Billed (hr/min): 75 Billed Treatment Time 1, ADL 5 SHAVON BARTLETT OT April 02, 2020 09:01
[2020-04-02] MEDS: meTOprolol TARTRATE 50 MG (LOPRESSOR) TAB PO SCH ×2 (09:24→21:08)
[2020-04-02] MEDS: DOCUSATE SODIUM 100 MG (COLACE) CAP PO SCH ×2 (09:24→21:08)
[2020-04-02] MEDS: CLOPIDOGREL 75 MG (PLAVIX) TABLET PO SCH (09:24)
[2020-04-02] MEDS: SENNA W/DOCUSATE (SENOKOT S) TABLET PO SCH ×2 (09:25→21:08)
[2020-04-02] MEDS: PANTOPRAZOLE 40 MG (PROTONIX) TAB PO SCH (09:25)
[2020-04-02] MEDS: ASPIRIN E.C. 81 MG (ECOTRIN) TAB PO SCH (09:25)
[2020-04-02] MEDS: polyethylene glycoL POWDER 17 GM (MIRALAX) PACK PO SCH ×2 (09:26→21:09)
[2020-04-02] MEDS: MICONAZOLE 2% POWDER (DESENEX AF) 90 GM TOP SCH ×2 (09:26→21:21)
[2020-04-02] MEDS: NYSTATIN CREAM (MYCOSTATIN) 30 GM TUBE TP SCH ×2 (09:26→21:21)
--- NOTE | 2020-04-02 09:30 | NUR ---
Pt. tolerating up ad roro well. Pt. changed dressing on incision and is emptying ileostomy independently.
--- NOTE | 2020-04-02 10:08 | PM&R Progress Note ---
Subjective HPI/CC On Admission Date Seen by Provider: April 02, 2020 Time Seen by Provider: 10:15 Subjective/Events-last exam Pt is eating better and more protein Changed her own dressing today Dumping the ileostomy bag and doing very well Overall feels as if she is improving immensely everyday Keeping up with her Gatorade and Water Up ad roro today by therapy DC planned for Monday after team meeting Major progress with emptying her own ileostomy Less drainage around the wound Jeet were removed Dr. Ji thinks it was looking really good No significant falls and no pain Checked meds and labs Conferred with RN Reviewed therapy notes Review of Systems General: Fatigue Gastrointestinal: Abdominal Pain Objective Exam Vital Signs Vital Signs Date Time Temp Pulse Resp B/P (MAP) Pulse Ox O2 Delivery O2 Flow Rate FiO2 04/02/20 21:17 101 144/84 (104) 04/02/20 21:00 Room Air 04/02/20 15:57 36.8 16 97 Capillary Refill : Less Than 3 Seconds General Appearance: No Apparent Distress, Anxious, Chronically ill HEENT: PERRL/EOMI, Normal ENT Inspection, Pharynx Normal, Moist Mucous Membranes Neck: Full Range of Motion, Non Tender, Supple Respiratory: Chest Non Tender, Lungs Clear, No Accessory Muscle Use, No Res piratory Distress, Decreased Breath Sounds Cardiovascular: Regular Rate, Rhythm, No Gallop, No JVD, No Murmur Gastrointestinal: Normal Bowel Sounds, No Organomegaly, No Pulsatile Mass, Soft, Tenderness Back: Normal Inspection, No CVA Tenderness, No Vertebral Tenderness Extremity: Pedal Edema (2+ legs) Neurologic/Psychiatric: Alert, Oriented x3, group care worker II-XII Norm as Tested, Depressed Affect, Motor Weakness (generalized all extremties) Skin: Normal Color Lymphatic: No Adenopathy Results/Procedures Lab Patient resulted labs reviewed. FIM Transfers Therapy Code Descriptions/Definitions Functional [place] Measure: 0=Not Assessed/NA 4=Minimal Assistance 1=Total Assistance 5=Supervision or Setup 2=Maximal Assistance 6=Modified [place] 3=Moderate Assistance 7=Complete IndependenceSCALE: Activities may be completed with or without assistive devices. 5-Ligvdjmssk-girmiix completes the activity by him/herself with no assistance from a helper. 5-Set-up or Clean-up Assistance-helper sets up or cleans up; patient completes activity. [place] assists only prior to or following the activity. 4-Supervision or Touching Assistance-helper provides verbal cues and/or touching/steadying and/or contact guard assistance as patient completes activity. Assistance may be provided throughout the activity or intermittently. 3-Partial/Moderate Assistance-helper does LESS THAN HALF the effort. [place] lifts, holds or supports trunk or limbs, but provides less than half the effort. 2-Substantial/Maximal Assistance-helper does MORE THAN HALF the effort. [place] lifts or holds trunk or limbs and provides more than half the effort. 8-Xdxjhftlm-ndslnz does ALL the effort. Patient does none of the effort to complete the activity. Or, the assistance of 2 or more helpers is required for the patient to complete the activity. If activity was not attempted, code reason: 7-Patient Refused. 9-Not Applicable-not attempted and the patient did not perform the activity before the current illness, exacerbation or injury. 10-Not Attempted due to Environmental Limitations-(lack of equipment, weather restraints, etc.). 88-Not Attempted due to Medical Conditions or Safety Concerns. Roll Left to Right (QC): 6 Sit to Lying (QC): 6 Sit to Stand (QC): 6 Chair/Hwk-rk-Emfbt Xfer(QC): 6 Car Transfer (QC): 6 Gait Training Does the Patient Walk?: Yes Distance: 750' Walk 10 feet (QC): 6 Walk 50 ft with 2 Turns(QC): 6 Walk 150 ft (QC): 6 Walking 10ft/uneven surface-QC: 6 Gait Persons Needed: 1 Gait Assistive Device: FWW Wheelchair Training Does the Pt Use a Wheelchair?: No Wheel 50 ft with 2 turns (QC): 9 Wheel 150 ft (QC): 9 Stair Training Stair Training: Handrails/: 2 handrails #of Steps: 4 1 Step (curb) (QC): 6 4 Steps (QC): 6 12 Steps (QC): 7 Stairs: Pattern: Step to Balance Picking up an Object (QC): 5 ADL-Treatment Eating (QC): 6 Oral Hygiene (QC): 6 (seated at sink) Shower/Bathe Self (QC): 5 (set up assist. 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 Anasarca much improved now after Lasix Hirsutism Poor albumin level improving with good nutrition Sore mouth added Nystatin and Magic mouthwash resolving so will DC Nystatin S&S s/p fever Zosyn added by Dr Taveras empirically now DC Ascites s/p paracentesis just bloody serous NGTD Anemia s/p transfusions 2 units 03/17/20 now hgb 10 with iron infusions completed Situational depression Emesis causing ARF and volume depletion giving gentle IVF 03/27/20 and 03/28/20 and DC 03/29/20 Plan: Mouth treatment is improving status IRF protocol Lab monitored Check labs periodically Wound care to iliostomy site Paracentesis completed Emesis treatment IVF DC DC Monday (1) S/P colectomy (2) Ileostomy in place (3) Hirsutism (4) Tachycardia (5) Anasarca (6) Anemia (7) Debility (8) Sigmoid volvulus (9) Leukocytosis (10) Acute kidney injury (11) Hyponatremia (12) Coronary artery disease (13) Abdominal pain Status: Acute (14) Elevated troponin (15) S/P cardiac cath SESAR BEEBE DO April 02, 2020 10:08
--- NOTE | 2020-04-02 10:30 | Physical Therapy Daily Note ---
PT Daily Note-Current Subjective Pt sitting at EOB upon arrival. Pt agrees to PT. Pain Location: No Pain Reported Mental Status Attachments: Colostomy/Ileostomy Transfers SCALE: Activities may be completed with or without assistive devices. 2-Zrdrdfwefe-edakual completes the activity by him/herself with no assistance from a helper. 5-Set-up or Clean-up Assistance-helper sets up or cleans up; patient completes activity. [place] assists only prior to or following the activity. 4-Supervision or Touching Assistance-helper provides verbal cues and/or touching/steadying and/or contact guard assistance as patient completes activity. Assistance may be provided throughout the activity or intermittently. 3-Partial/Moderate Assistance-helper does LESS THAN HALF the effort. [place] lifts, holds or supports trunk or limbs, but provides less than half the effort. 2-Substantial/Maximal Assistance-helper does MORE THAN HALF the effort. [place] lifts or holds trunk or limbs and provides more than half the effort. 4-Jzzclbbbb-nskuwm does ALL the effort. Patient does none of the effort to complete the activity. Or, the assistance of 2 or more helpers is required for the patient to complete the activity. If activity was not attempted, code reason: 7-Patient Refused. 9-Not Applicable-not attempted and the patient did not perform the activity before the current illness, exacerbation or injury. 10-Not Attempted due to Environmental Limitations-(lack of equipment, weather restraints, etc.). 88-Not Attempted due to Medical Conditions or Safety Concerns. Sit to Stand (QC): 6 Weight Bearing Right Lower Extremity: Right Full Weight Bearing Left Lower Extremity: Left Full Weight Bearing Gait Training Does the Patient Walk?: Yes Distance: 100', 8' x3, 450' Walk 10 feet (QC): 6 Walk 50 ft with 2 Turns(QC): 6 Walk 150 ft (QC): 6 Gait Persons Needed: 1 Gait Assistive Device: FWW Pt walks majority of distance using FWW at Mod I, attempts short distances in //bars w/o AD. Wheelchair Training Does the Pt Use a Wheelchair?: No Exercises NuStep Minutes: 16 NuStep Workload: 5 Treatments Pt transfers from bed and ambulates in hallway. Pt ambulates in //bars x3 befor e using NuStep for 16m at WL 5. Pt ambulates extended distance in hallway before returning to room, including short distance again w/o AD. Pt resting at EOB at end of Rx with all needs met, call light next to pt. Assessment Current Status: Excellent Progress Pt tolerates Rx well, taking occasional RB as needed. PT Short Term Goals Short Term Goals Time Frame: Mar 20, 2020 Roll Left & Right: 3 Sit to lyin Lying to sitting on side of be: 3 Sit to stand: 4 Chair/uhj-xq-sppqi transfer: 4 Walk 10 feet: 4 Walk 50 feet with two turns: 4 Walk 150 feet: 4 PT Mcfp Goals Mcfp Goals PT Polishing Machine Tender Goals Time Frame: April 03, 2020 Roll Left & Right (QC): 6 Sit to Lying (QC): 6 Lying-Sitting on Side/Bed(QC): 6 Sit to Stand (QC): 6 Chair/Zlt-kn-Qzfsl Xfer(QC): 6 Toilet Transfer (QC): 6 Car Transfer (QC): 6 Does the Patient Walk: Yes Walk 10 feet (QC): 6 Walk 50ft with 2 Turns (QC): 6 Walk 150 ft (QC): 6 Walking 10ft on Uneven Surface: 6 1 Step (curb) (QC): 4 4 Steps (QC): 4 12 Steps (QC): 88 Picking up an Object (QC): 88 Wheel 50 feet with 2 turns (QC: 88 Wheel 150 feet: 88 PT Plan Problem List Problem List: Activity Tolerance Treatment/Plan Treatment Plan: Continue Plan of Care Treatment Plan: Bed Mobility, Education, Functional Activity Fern, Functional Strength, Group Therapy, Gait, Safety, Therapeutic Exercise, Transfers Treatment Duration: April 03, 2020 Frequency: At least 5 of 7 days/Wk (IRF) Estimated Hrs Per Day: 1.5 hours per day Patient and/or Family Agrees t: Yes Safety Risks/Education Patient Education: Correct Positioning, Safety Issues Teaching Recipient: Patient Teaching Methods: Discussion Response to Teaching: Verbalize Understanding Time/GCodes Time In: 930 Time Out: 1030 Total Billed Treatment Time: 60 Total Billed Treatment 1, GT x2 (25m), EX (20m) & FA (15m) PARTH TONEY PRIZE FIGHTER April 02, 2020 10:30
--- NOTE | 2020-04-02 13:03 | NUR ---
CM/SS DISCHARGE PLANNING HHC: Confirmed with [facility] that they will accept patient as uninsured status for short term services. Updated of 04/06/20, discharge date. Asking for RN, PT, OT. DME: [facility] supplies were already delivered to the house, patient's continued supplies will be maintained between her and [facility].
--- NOTE | 2020-04-02 13:20 | Occupational Ther Daily Note ---
OT Current Status-Daily Note Subjective Pt seated on toilet emptying ostomy at start of session, agreeable to OT tx. Mental Status/Objective Patient Orientation: Normal For Age Attachments: Colostomy/Ileostomy ADL-Treatment Therapy Code Descriptions/Definitions Functional [place] Measure: 0=Not Assessed/NA 4=Minimal Assistance 1=Total Assistance 5=Supervision or Setup 2=Maximal Assistance 6=Modified [place] 3=Moderate Assistance 7=Complete IndependenceSCALE: Activities may be completed with or without assistive devices. 3-Ogugnryltz-wyfamwc completes the activity by him/herself with no assistance from a helper. 5-Set-up or Clean-up Assistance-helper sets up or cleans up; patient completes activity. [place] assists only prior to or following the activity. 4-Supervision or Touching Assistance-helper provides verbal cues and/or touching/steadying and/or contact guard assistance as patient completes activity. Assistance may be provided throughout the activity or intermittently. 3-Partial/Moderate Assistance-helper does LESS THAN HALF the effort. [place] lifts, holds or supports trunk or limbs, but provides less than half the effort. 2-Substantial/Maximal Assistance-helper does MORE THAN HALF the effort. [place] lifts or holds trunk or limbs and provides more than half the effort. 7-Wfwaqwcie-dnhtpv does ALL the effort. Patient does none of the effort to complete the activity. Or, the assistance of 2 or more helpers is required for the patient to complete the activity. If activity was not attempted, code reason: 7-Patient Refused. 9-Not Applicable-not attempted and the patient did not perform the activity before the current illness, exacerbation or injury. 10-Not Attempted due to Environmental Limitations-(lack of equipment, weather restraints, etc.). 88-Not Attempted due to Medical Conditions or Safety Concerns. On/Off Footwear: 6 Toileting Hygiene (QC): 6 Toilet Transfer (QC): 6 Other Treatment Pt completed toileting, washed her hands at the sink, then sat EOB. Pt doffed slipper socks, donning regular socks and tennis shoes. In order to increase fine motor strength and coordination, pt removed beads from red theraputty. Pt reports she enjoys this activity and finds it calming as well as beneficial. Post OT session, pt seated EOB, call light in reach and all needs met. Education OT Patient Education: Correct positioning, Energy conservation, Exercise program, Modified ADL techniques, Progress toward Goal/Update tx plan, Purpose of tx/functional activities Teaching Recipient: Patient Teaching Methods: Discussion Response to Teaching: Verbalize Understanding OT Short Term Goals Short Term Goals Upper body dressin Lower body dressin Putting on/taking off footwear: 5 OT Packaging Tech Goals Packaging Tech Goals Time Frame: April 08, 2020 Eating (QC): 6 Oral Hygiene (QC): 6 Toileting Hygiene (QC): 6 Shower/Bathe Self (QC): 6 Upper Body Dressing (QC): 6 Lower Body Dressing (QC): 6 On/Off Footwear (QC): 6 Additional Goals: 1-Demonstrate ADL Tasks, 2-Verbalize Understanding, 3- ImproveStrength/Fern 1=Demonstrate adherence to instructed precautions during ADL tasks. 2=Patient will verbalize/demonstrate understanding of assistive devices/modifications for ADL. 3=Patient will improve strength/tolerance for activity to enable patient to perform ADL's. OT Education/Plan Problem List/Assessment Assessment: Decreased Activ Tolerance, Decreased UE Strength, Impaired I ADL's Discharge Recommendations Plan/Recommendations: Continue POC Treatment Plan/Plan of Care Patient would benefit from OT for education, treatment and training to promote independence in ADL's, mobility, safety and/or upper extremity function for ADL's. Plan of Care: ADL Retraining, Concurrent Therapy, Functional Mobility, Group Exercise/Act as Ind, UE Funct Exercise/Act Treatment Duration: March 27, 2020 Frequency: At least 5 of 7 days/Wk (IRF) Estimated Hrs Per Day: 1.5 hours per day Agreement: Yes Rehab Potential: Good Time/GCodes Start Time: 13:00 Stop Time: 13:15 Total Time Billed (hr/min): 15 Billed Treatment Time 1RAMIREZ ADDISON OT April 02, 2020 13:20
--- NOTE | 2020-04-02 14:17 | Physical Therapy Daily Note ---
PT Daily Note-Current Subjective Pt in restroom upon arrival. Pt agrees to PT. Pain Location: No Pain Reported Mental Status Patient Orientation: Person, Place, Time, Situation Attachments: Colostomy/Ileostomy Transfers SCALE: Activities may be completed with or without assistive devices. 6-Xayjadoeps-zqukovu completes the activity by him/herself with no assistance from a helper. 5-Set-up or Clean-up Assistance-helper sets up or cleans up; patient completes activity. [place] assists only prior to or following the activity. 4-Supervision or Touching Assistance-helper provides verbal cues and/or touching/steadying and/or contact guard assistance as patient completes activity. Assistance may be provided throughout the activity or intermittently. 3-Partial/Moderate Assistance-helper does LESS THAN HALF the effort. [place] lifts, holds or supports trunk or limbs, but provides less than half the effort. 2-Substantial/Maximal Assistance-helper does MORE THAN HALF the effort. [place] lifts or holds trunk or limbs and provides more than half the effort. 2-Dducvnvbk-vrarsf does ALL the effort. Patient does none of the effort to complete the activity. Or, the assistance of 2 or more helpers is required for the patient to complete the activity. If activity was not attempted, code reason: 7-Patient Refused. 9-Not Applicable-not attempted and the patient did not perform the activity before the current illness, exacerbation or injury. 10-Not Attempted due to Environmental Limitations-(lack of equipment, weather restraints, etc.). 88-Not Attempted due to Medical Conditions or Safety Concerns. Sit to Stand (QC): 6 Weight Bearing Right Lower Extremity: Right Full Weight Bearing Left Lower Extremity: Left Full Weight Bearing Gait Training Does the Patient Walk?: Yes Distance: 450' Walk 10 feet (QC): 6 Walk 50 ft with 2 Turns(QC): 6 Walk 150 ft (QC): 6 Gait Persons Needed: 1 Gait Assistive Device: FWW Wheelchair Training Does the Pt Use a Wheelchair?: No Treatments Pt finishes in restroom and Nurse flushes IVs. Pt then transfers from EOB then standing and ambulates in hallway. Pt ambulates most of walk using FWW at Mod I but last 10' was w/o AD at close SBA. Pt returns to EOB at end of Rx with all needs met, call light in hand. Assessment Current Status: Excellent Progress Pt continues to push self to be as independent as she can be but knows her limits and will rest when needed. PT Short Term Goals Short Term Goals Time Frame: Mar 20, 2020 Roll Left & Right: 3 Sit to lyin Lying to sitting on side of be: 3 Sit to stand: 4 Chair/oxb-zd-ekfgb transfer: 4 Walk 10 feet: 4 Walk 50 feet with two turns: 4 Walk 150 feet: 4 PT Assisted Goals Item Repair Manager Goals PT Item Repair Manager Goals Time Frame: April 03, 2020 Roll Left & Right (QC): 6 Sit to Lying (QC): 6 Lying-Sitting on Side/Bed(QC): 6 Sit to Stand (QC): 6 Chair/Bvt-re-Rhxlk Xfer(QC): 6 Toilet Transfer (QC): 6 Car Transfer (QC): 6 Does the Patient Walk: Yes Walk 10 feet (QC): 6 Walk 50ft with 2 Turns (QC): 6 Walk 150 ft (QC): 6 Walking 10ft on Uneven Surface: 6 1 Step (curb) (QC): 4 4 Steps (QC): 4 12 Steps (QC): 88 Picking up an Object (QC): 88 Wheel 50 feet with 2 turns (QC: 88 Wheel 150 feet: 88 PT Plan Problem List Problem List: Activity Tolerance Treatment/Plan Treatment Plan: Continue Plan of Care Treatment Plan: Bed Mobility, Education, Functional Activity Fern, Functional Strength, Group Therapy, Gait, Safety, Therapeutic Exercise, Transfers Treatment Duration: April 03, 2020 Frequency: At least 5 of 7 days/Wk (IRF) Estimated Hrs Per Day: 1.5 hours per day Patient and/or Family Agrees t: Yes Safety Risks/Education Patient Education: Gait Training, Correct Positioning, Safety Issues Teaching Recipient: Patient Teaching Methods: Discussion Response to Teaching: Verbalize Understanding Time/GCodes Time In: 1330 Time Out: 1400 Total Billed Treatment Time: 30 Total Billed Treatment 1, GT x2 (30m) PARTH TONEY PTA April 02, 2020 14:17
[2020-04-02 15:57] VITALS: BP 124/82
--- NOTE | 2020-04-02 17:01 | Progress Note - Cardiology ---
Cardiology SOAP Progress Note Subjective: No cp or palp or syncope Gen weakness and malaise, improving No focal weakness No n/v/d Objective: I&O/Vital Signs 04/02/20 04/02/20 04/02/20 04/02/20 05:40 08:00 09:00 15:57 Temp 36.4 36.8 Pulse 87 100 88 Resp 20 16 B/P (MAP) 144/95 (111) 133/86 (102) 124/82 (96) Pulse Ox 100 97 O2 Delivery Room Air Room Air Room Air 04/02/20 00:00 Intake Total 1025 ml Balance 1025 ml Constitutional: AAO x 3 Respiratory: chest is bilaterally symmetric, lungs clear to auscultation Cardiovascular: regular rate-rhythm, S1 and S2, systolic murmur Gastrointestional: soft, audible bowel sounds, other (colostomy) Extremities: no lower extremity edema bilateral Neurologic/Psychiatric: alert, grossly intact (moves extremities) Skin: No rash on exposed areas, No ulcerations on exposed areas Results/Procedures: Labs Microbiology 03/16/20 Gram Stain - Final, Complete 03/16/20 Anaerobic Culture - Final, Complete No anaerobes isolated 03/16/20 Surgical Culture - Final, Complete No growth 03/14/20 Blood Culture - Final, Complete No growth A/P: Assessment: S/p colectomy for intestinal obstruction Marked post-op anemia, managed by the Surgical and Hospitalist Services - received 2 units on 03-09-2020 Type 2 TN, perioperative, in February 2020 at time of presentation with intestinal obstruction and probable septic shock CAD, h/o cor stenting at [facility] in Oct 2019. Last card cath on 03/05/20: patent stents in the mid left circumflex and the mid right coronary arteries. There is moderate diffuse disease of all coronary arteries. There is moderately severe diffuse disease of the distal left anterior descending. A small caliber obtuse marginal has 70% to 80% ostial stenosis. Normal left ventricular end- diastolic pressure. Echo of 03/05/20: LVEF 60-65%, mild to mod TR, RVSP 35-40 mmHg, mild dilatation of LA Post-op hypotension and EMIGDIO 2, resolved Plan: * Monitor lab from time to time * We have reviewed her CV issues with her and answered questions VI KO MD FACP FAC CCDS April 02, 2020 17:01
[2020-04-02 21:17] VITALS: BP 144/84
[2020-04-03 05:47] VITALS: BP 143/94
[2020-04-03] MEDS: NYSTATIN PO SCH ×16 (06:56→21:18)
[2020-04-03] MEDS: [UNRECOGNIZED DRUG - OTHER] PO SCH ×16 (06:56→21:18)
[2020-04-03] MEDS: PREDNISOLONE PO SCH ×16 (06:56→21:18)
[2020-04-03] MEDS: CATHETER FLUSH 10 ML SYR IV SCH ×3 (06:56→21:19)
--- NOTE | 2020-04-03 08:48 | Physical Therapy Daily Note ---
PT Daily Note-Current Subjective Pt agreeable. Pt states "I am up adlib now. I am doing good." Pt reports she is discharging Monday to a friends house. Pt reports she is ready for DC. Pt denies pain today. Mental Status Patient Orientation: Person, Place, Situation Transfers SCALE: Activities may be completed with or without assistive devices. 8-Kwxamgcspj-vyioowc completes the activity by him/herself with no assistance from a helper. 5-Set-up or Clean-up Assistance-helper sets up or cleans up; patient completes activity. [place] assists only prior to or following the activity. 4-Supervision or Touching Assistance-helper provides verbal cues and/or t ouching/steadying and/or contact guard assistance as patient completes activity. Assistance may be provided throughout the activity or intermittently. 3-Partial/Moderate Assistance-helper does LESS THAN HALF the effort. [place] lifts, holds or supports trunk or limbs, but provides less than half the effort. 2-Substantial/Maximal Assistance-helper does MORE THAN HALF the effort. [place] lifts or holds trunk or limbs and provides more than half the effort. 0-Urpaxdnwq-enmhhm does ALL the effort. Patient does none of the effort to complete the activity. Or, the assistance of 2 or more helpers is required for the patient to complete the activity. If activity was not attempted, code reason: 7-Patient Refused. 9-Not Applicable-not attempted and the patient did not perform the activity before the current illness, exacerbation or injury. 10-Not Attempted due to Environmental Limitations-(lack of equipment, weather restraints, etc.). 88-Not Attempted due to Medical Conditions or Safety Concerns. Weight Bearing Right Lower Extremity: Right Full Weight Bearing Left Lower Extremity: Left Full Weight Bearing Gait Training Does the Patient Walk?: Yes Gait Assistive Device: FWW Pt amb in hallway 1 x 120ft, 1 x 750ft with SBA and FWW. Good steady speed. Exercises Supine Ex: Ankle pumps, Quad Set, Glut sets, Heel Slides, Short Arc Quads, Hip abd/add Supine Reps: 20 Seated Therapy Exercises: Ankle pumps, Long arc quads, Hip flexion Seated Reps: 20 NuStep Minutes: 20 NuStep Workload: 3 Treatments Pt seen for ther ex in supine and sitting, gait training and Nu-step. Pt used BR and dressed herself (I). Assessment Current Status: Excellent Progress Pt breezy above very well. Pt demonstrating safe and (I) mobility in BR and room. Pt has made good progress with functional mobility. No signs of fatigue with therapy. Pt back to room EOB with call light and all needs met. PT Short Term Goals Short Term Goals Time Frame: Mar 20, 2020 Roll Left & Right: 3 Sit to lyin Lying to sitting on side of be: 3 Sit to stand: 4 Chair/zjz-vi-jtied transfer: 4 Walk 10 feet: 4 Walk 50 feet with two turns: 4 Walk 150 feet: 4 PT Chcf Goals Masonry Instructor Goals PT [facility] Goals Time Frame: April 03, 2020 Roll Left & Right (QC): 6 Sit to Lying (QC): 6 Lying-Sitting on Side/Bed(QC): 6 Sit to Stand (QC): 6 Chair/Pva-br-Yvifj Xfer(QC): 6 Toilet Transfer (QC): 6 Car Transfer (QC): 6 Does the Patient Walk: Yes Walk 10 feet (QC): 6 Walk 50ft with 2 Turns (QC): 6 Walk 150 ft (QC): 6 Walking 10ft on Uneven Surface: 6 1 Step (curb) (QC): 4 4 Steps (QC): 4 12 Steps (QC): 88 Picking up an Object (QC): 88 Wheel 50 feet with 2 turns (QC: 88 Wheel 150 feet: 88 PT Plan Treatment/Plan Treatment Plan: Continue Plan of Care Treatment Plan: Bed Mobility, Education, Functional Activity Fern, Functional Strength, Group Therapy, Gait, Safety, Therapeutic Exercise, Transfers Treatment Duration: April 03, 2020 Frequency: At least 5 of 7 days/Wk (IRF) Estimated Hrs Per Day: 1.5 hours per day Patient and/or Family Agrees t: Yes Time/GCodes Time In: 805 Time Out: 900 Total Billed Treatment Time: 55 Total Billed Treatment 1, ther ex x 25', FA x 15', gait x 15' MOISÉS EMERSON CPTA April 03, 2020 08:47
[2020-04-03] MEDS: PANTOPRAZOLE 40 MG (PROTONIX) TAB PO SCH (09:14)
[2020-04-03] MEDS: CLOPIDOGREL 75 MG (PLAVIX) TABLET PO SCH (09:14)
[2020-04-03] MEDS: ASPIRIN E.C. 81 MG (ECOTRIN) TAB PO SCH (09:14)
[2020-04-03] MEDS: meTOprolol TARTRATE 50 MG (LOPRESSOR) TAB PO SCH ×2 (09:14→21:09)
--- NOTE | 2020-04-03 10:37 | PM&R Progress Note ---
Subjective HPI/CC On Admission Date Seen by Provider: April 03, 2020 Time Seen by Provider: 10:45 Subjective/Events-last exam Pt is eating better and more protein and no emesis reported Changes her own dressing and bag now Dumping the ileostomy bag and doing very well Overall feels as if she is improving immensely everyday Keeping up with her Gatorade and Water Up ad roro today by therapy DC planned for Monday Less drainage around the wound Jeet were removed Dr. Ji thinks it was looking really good No significant falls and no pain Checked meds and labs Conferred with RN Reviewed therapy notes Review of Systems General: Fatigue Objective Exam Vital Signs Vital Signs Date Time Temp Pulse Resp B/P (MAP) Pulse Ox O2 Delivery O2 Flow Rate FiO2 04/04/20 07:00 36.5 83 18 145/78 (100) 96 Room Air Capillary Refill : Less Than 3 Seconds General Appearance: No Apparent Distress, Anxious, Chronically ill HEENT: PERRL/EOMI, Normal ENT Inspection, Pharynx Normal, Moist Mucous Membranes Neck: Full Range of Motion, Non Tender, Supple Respiratory: Chest Non Tender, Lungs Clear, No Accessory Muscle Use, No Respiratory Distress, Decreased Breath Sounds Cardiovascular: Regular Rate, Rhythm, No Gallop, No JVD, No Murmur Gastrointestinal: Normal Bowel Sounds, No Organomegaly, No Pulsatile Mass, Soft, Tenderness Back: Normal Inspection, No CVA Tenderness, No Vertebral Tenderness Extremity: Pedal Edema (2+ legs) Neurologic/Psychiatric: Alert, Oriented x3, steam cleaning machine operator II-XII Norm as Tested, Depressed Affect, Motor Weakness (generalized all extremties) Skin: Normal Color Lymphatic: No Adenopathy Results/Procedures Lab Patient resulted labs reviewed. FIM Transfers Therapy Code Descriptions/Definitions Functional [place] Measure: 0=Not Assessed/NA 4=Minimal Assistance 1=Total Assistance 5=Supervision or Setup 2=Maximal Assistance 6=Modified [place] 3=Moderate Assistance 7=Complete IndependenceSCALE: Activities may be completed with or without assistive devices. 8-Jmsksnclqc-fqdepha completes the activity by him/herself with no assistance from a helper. 5-Set-up or Clean-up Assistance-helper sets up or cleans up; patient completes activity. [place] assists only prior to or following the activity. 4-Supervision or Touching Assistance-helper provides verbal cues and/or touching/steadying and/or contact guard assistance as patient completes activity. Assistance may be provided throughout the activity or intermittently. 3-Partial/Moderate Assistance-helper does LESS THAN HALF the effort. [place] lifts, holds or supports trunk or limbs, but provides less than half the effort. 2-Substantial/Maximal Assistance-helper does MORE THAN HALF the effort. [place] lifts or holds trunk or limbs and provides more than half the effort. 3-Xrcmbxfkg-lewtht does ALL the effort. Patient does none of the effort to complete the activity. Or, the assistance of 2 or more helpers is required for the patient to complete the activity. If activity was not attempted, code reason: 7-Patient Refused. 9-Not Applicable-not attempted and the patient did not perform the activity before the current illness, exacerbation or injury. 10-Not Attempted due to Environmental Limitations-(lack of equipment, weather restraints, etc.). 88-Not Attempted due to Medical Conditions or Safety Concerns. Roll Left to Right (QC): 6 Sit to Lying (QC): 6 Sit to Stand (QC): 6 Chair/Iya-ot-Jclri Xfer(QC): 6 Car Transfer (QC): 6 Gait Training Does the Patient Walk?: Yes Distance: 450' Walk 10 feet (QC): 6 Walk 50 ft with 2 Turns(QC): 6 Walk 150 ft (QC): 6 Walking 10ft/uneven surface-QC: 6 Gait Persons Needed: 1 Gait Assistive Device: FWW Wheelchair Training Does the Pt Use a Wheelchair?: No Wheel 50 ft with 2 turns (QC): 9 Wheel 150 ft (QC): 9 Stair Training Stair Training: Handrails/: 2 handrails #of Steps: 4 1 Step (curb) (QC): 6 4 Steps (QC): 6 12 Steps (QC): 7 Stairs: Pattern: Step to Balance Picking up an Object (QC): 5 ADL-Treatment Eating (QC): 6 Oral Hygiene (QC): 6 (seated at sink) Shower/Bathe Self (QC): 5 (set up assist. 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 Anasarca much improved now after Lasix Hirsutism Poor albumin level improving with good nutrition Sore mouth added Nystatin and Magic mouthwash resolving so will DC Nystatin S&S s/p fever Zosyn added by Dr Taveras empirically now DC Ascites s/p paracentesis just bloody serous NGTD Anemia s/p transfusions 2 units 03/17/20 now hgb 10 with iron infusions completed Situational depression Emesis causing ARF and volume depletion giving gentle IVF 03/27/20 and 03/28/20 and DC 03/29/20 Plan: Mouth treatment is improving status IRF protocol Lab monitored Check labs periodically Wound care to iliostomy site Paracentesis completed Emesis treatment IVF DC DC Monday (1) S/P colectomy (2) Ileostomy in place (3) Hirsutism (4) Tachycardia (5) Anasarca (6) Anemia (7) Debility (8) Sigmoid volvulus (9) Leukocytosis (10) Acute kidney injury (11) Hyponatremia (12) Coronary artery disease (13) Abdominal pain Status: Acute (14) Elevated troponin (15) S/P cardiac cath SESAR BEEBE DO April 03, 2020 10:37
--- NOTE | 2020-04-03 10:47 | Occupational Ther Daily Note ---
OT Current Status-Daily Note Subjective Pt seated EOB at start of session, agreeable to OT tx with focus on ADLs. Mental Status/Objective Patient Orientation: Person, Place, Time, Situation Attachments: Colostomy/Ileostomy ADL-Treatment Therapy Code Descriptions/Definitions Functional [place] Measure: 0=Not Assessed/NA 4=Minimal Assistance 1=Total Assistance 5=Supervision or Setup 2=Maximal Assistance 6=Modified [place] 3=Moderate Assistance 7=Complete IndependenceSCALE: Activities may be completed with or without assistive devices. 0-Ncvgjpbvls-oftcfam completes the activity by him/herself with no assistance from a helper. 5-Set-up or Clean-up Assistance-helper sets up or cleans up; patient completes activity. [place] assists only prior to or following the activity. 4-Supervision or Touching Assistance-helper provides verbal cues and/or touching/steadying and/or contact guard assistance as patient completes activity. Assistance may be provided throughout the activity or intermittently. 3-Partial/Moderate Assistance-helper does LESS THAN HALF the effort. [place] lifts, holds or supports trunk or limbs, but provides less than half the effort. 2-Substantial/Maximal Assistance-helper does MORE THAN HALF the effort. [place] lifts or holds trunk or limbs and provides more than half the effort. 9-Pimlawcey-unhekm does ALL the effort. Patient does none of the effort to complete the activity. Or, the assistance of 2 or more helpers is required for the patient to complete the activity. If activity was not attempted, code reason: 7-Patient Refused. 9-Not Applicable-not attempted and the patient did not perform the activity before the current illness, exacerbation or injury. 10-Not Attempted due to Environmental Limitations-(lack of equipment, weather restraints, etc.). 88-Not Attempted due to Medical Conditions or Safety Concerns. Eating (QC): 6 (per pt report) Oral Hygiene (QC): 6 (pt reports completing oral hygiene IND prior to tx) Shower/Bathe Self (QC): 5 Upper Body Dressing (QC): 5 Lower Body Dressing (QC): 5 On/Off Footwear: 5 Toileting Hygiene (QC): 6 Toilet Transfer (QC): 6 Other Treatment Pt seated EOB, transferred to restroom where she completed toileting, showering and dressing. Pt then took her dirty clothes to laundry, and started the washer with min cues due to being an unfamiliar washer. Pt then returned to her room where she sat EOB to change her dressing. Nurse present to give pt's meds, then stepped out to gather dressing supplies. Pt able to remove dressing, then wash with warm washcloth with set up assist. Post OT session, pt seated EOB, call light in reach and all needs met. Nurse aware of pt's position awaiting dressing supplies. Education OT Patient Education: Correct positioning, Energy conservation, Modified ADL techniques, Progress toward Goal/Update tx plan, Purpose of tx/functional activities Teaching Recipient: Patient Teaching Methods: Discussion Response to Teaching: Verbalize Understanding OT Short Term Goals Short Term Goals Upper body dressin Lower body dressin Putting on/taking off footwear: 5 OT Financial Quantitative Analyst Goals Custodial Goals Time Frame: April 08, 2020 Eating (QC): 6 Oral Hygiene (QC): 6 Toileting Hygiene (QC): 6 Shower/Bathe Self (QC): 6 Upper Body Dressing (QC): 6 Lower Body Dressing (QC): 6 On/Off Footwear (QC): 6 Additional Goals: 1-Demonstrate ADL Tasks, 2-Verbalize Understanding, 3-Impro veStrength/Fern 1=Demonstrate adherence to instructed precautions during ADL tasks. 2=Patient will verbalize/demonstrate understanding of assistive devices/modifications for ADL. 3=Patient will improve strength/tolerance for activity to enable patient to perform ADL's. OT Education/Plan Problem List/Assessment Assessment: Decreased Activ Tolerance, Decreased UE Strength, Impaired I ADL's Discharge Recommendations Plan/Recommendations: Continue POC Treatment Plan/Plan of Care Patient would benefit from OT for education, treatment and training to promote independence in ADL's, mobility, safety and/or upper extremity function for ADL's. Plan of Care: ADL Retraining, Concurrent Therapy, Functional Mobility, Group Exercise/Act as Ind, UE Funct Exercise/Act Treatment Duration: March 27, 2020 Frequency: At least 5 of 7 days/Wk (IRF) Estimated Hrs Per Day: 1.5 hours per day Agreement: Yes Rehab Potential: Good Time/GCodes Start Time: 09:30 Stop Time: 10:45 Total Time Billed (hr/min): 75 Billed Treatment Time 1, ADL 5 SHAVON BARTLETT OT April 03, 2020 10:47
[2020-04-03] MEDS: DOCUSATE SODIUM 100 MG (COLACE) CAP PO SCH ×2 (10:52→21:09)
[2020-04-03] MEDS: SENNA W/DOCUSATE (SENOKOT S) TABLET PO SCH ×2 (10:52→21:14)
[2020-04-03] MEDS: polyethylene glycoL POWDER 17 GM (MIRALAX) PACK PO SCH ×2 (10:59→21:18)
[2020-04-03] MEDS: MICONAZOLE 2% POWDER (DESENEX AF) 90 GM TOP SCH ×2 (11:00→21:18)
[2020-04-03] MEDS: NYSTATIN CREAM (MYCOSTATIN) 30 GM TUBE TP SCH ×2 (11:00→21:19)
--- NOTE | 2020-04-03 13:54 | Occupational Ther Daily Note ---
OT Current Status-Daily Note Subjective Pt laying in bed at start of session, agreed to OT tx. She did not report any pain. Mental Status/Objective Patient Orientation: Normal For Age ADL-Treatment Therapy Code Descriptions/Definitions Functional [place] Measure: 0=Not Assessed/NA 4=Minimal Assistance 1=Total Assistance 5=Supervision or Setup 2=Maximal Assistance 6=Modified [place] 3=Moderate Assistance 7=Complete IndependenceSCALE: Activities may be completed with or without assistive devices. 3-Kubwpsscow-giofwct completes the activity by him/herself with no assistance f rom a helper. 5-Set-up or Clean-up Assistance-helper sets up or cleans up; patient completes activity. [place] assists only prior to or following the activity. 4-Supervision or Touching Assistance-helper provides verbal cues and/or touching/steadying and/or contact guard assistance as patient completes activity. Assistance may be provided throughout the activity or intermittently. 3-Partial/Moderate Assistance-helper does LESS THAN HALF the effort. [place] lifts, holds or supports trunk or limbs, but provides less than half the effort. 2-Substantial/Maximal Assistance-helper does MORE THAN HALF the effort. [place] lifts or holds trunk or limbs and provides more than half the effort. 1-Gebdubxbg-sbajqv does ALL the effort. Patient does none of the effort to complete the activity. Or, the assistance of 2 or more helpers is required for the patient to complete the activity. If activity was not attempted, code reason: 7-Patient Refused. 9-Not Applicable-not attempted and the patient did not perform the activity before the current illness, exacerbation or injury. 10-Not Attempted due to Environmental Limitations-(lack of equipment, weather restraints, etc.). 88-Not Attempted due to Medical Conditions or Safety Concerns. Other Treatment Pt sat EOB in order to complete functional activity of removing beads from red theraputty. This task was chosen in order to increase fine motor strength and coordination to increase independence with ADLs and functional activities. Pt able to remove x15 beads from putty. OT left putty and beads in pt's room instructing her to complete task a couple times over the weekend, she verbalized understanding. Post OT tx, pt laying in bed, call light in reach and all needs met. Education OT Patient Education: Correct positioning, Energy conservation, Progress toward Goal/Update tx plan, Purpose of tx/functional activities Teaching Recipient: Patient Teaching Methods: Discussion Response to Teaching: Verbalize Understanding OT Short Term Goals Short Term Goals Upper body dressin Lower body dressin Putting on/taking off footwear: 5 OT Leather Coverer Goals Leather Coverer Goals Time Frame: April 08, 2020 Eating (QC): 6 Oral Hygiene (QC): 6 Toileting Hygiene (QC): 6 Shower/Bathe Self (QC): 6 Upper Body Dressing (QC): 6 Lower Body Dressing (QC): 6 On/Off Footwear (QC): 6 Additional Goals: 1-Demonstrate ADL Tasks, 2-Verbalize Understanding, 3- ImproveStrength/Fern 1=Demonstrate adherence to instructed precautions during ADL tasks. 2=Patient will verbalize/demonstrate understanding of assistive devices/modifications for ADL. 3=Patient will improve strength/tolerance for activity to enable patient to perform ADL's. OT Education/Plan Problem List/Assessment Assessment: Decreased Activ Tolerance, Decreased UE Strength, Impaired I ADL's, Impaired Self-Care Skills Discharge Recommendations Plan/Recommendations: Continue POC Treatment Plan/Plan of Care Patient would benefit from OT for education, treatment and training to promote independence in ADL's, mobility, safety and/or upper extremity function for ADL's. Plan of Care: ADL Retraining, Concurrent Therapy, Functional Mobility, Group Exercise/Act as Ind, UE Funct Exercise/Act Treatment Duration: March 27, 2020 Frequency: At least 5 of 7 days/Wk (IRF) Estimated Hrs Per Day: 1.5 hours per day Agreement: Yes Rehab Potential: Good Time/GCodes Start Time: 13:20 Stop Time: 13:40 Total Time Billed (hr/min): 20 Billed Treatment Time RAMIREZ Parkinson ADDISON OT April 03, 2020 13:54
--- NOTE | 2020-04-03 14:48 | Physical Therapy Daily Note ---
PT Daily Note-Current Subjective Pt ready for PT. Pt denies pain. Pt says she feels 100% better about going home Monday since she was able to improve this week. Mental Status Patient Orientation: Person, Place, Situation Transfers SCALE: Activities may be completed with or without assistive devices. 7-Qcstfkwsng-jctlaoq completes the activity by him/herself with no assistance from a helper. 5-Set-up or Clean-up Assistance-helper sets up or cleans up; patient completes activity. [place] assists only prior to or following the activity. 4-Supervision or Touching Assistance-helper provides verbal cues and/or touching/steadying and/or contact guard assistance as patient completes activity. Assistance may be provided throughout the activity or intermittently. 3-Partial/Moderate Assistance-helper does LESS THAN HALF the effort. [place] lifts, holds or supports trunk or limbs, but provides less than half the effort. 2-Substantial/Maximal Assistance-helper does MORE THAN HALF the effort. [place] lifts or holds trunk or limbs and provides more than half the effort. 5-Fxxqmmabg-qxdmoy does ALL the effort. Patient does none of the effort to complete the activity. Or, the assistance of 2 or more helpers is required for the patient to complete the activity. If activity was not attempted, code reason: 7-Patient Refused. 9-Not Applicable-not attempted and the patient did not perform the activity before the current illness, exacerbation or injury. 10-Not Attempted due to Environmental Limitations-(lack of equipment, weather restraints, etc.). 88-Not Attempted due to Medical Conditions or Safety Concerns. Weight Bearing Right Lower Extremity: Right Full Weight Bearing Left Lower Extremity: Left Full Weight Bearing Gait Training Gait Assistive Device: FWW Pt amb with FWW in hallway, elevator, down to 1st floor, outside to get fresh air. Pt SBA for gait training with FWW. Exercises Seated Therapy Exercises: Ankle pumps, Long arc quads, Hip flexion Seated Reps: 20 NuStep Minutes: 5 NuStep Workload: 5 Assessment Current Status: Excellent Progress Pt in good spirits, feeling good about DC Monday. Pt showing mod (I) mobility all levels. Pt back to room on EOB with call light and all needs met. PT Short Term Goals Short Term Goals Time Frame: Mar 20, 2020 Roll Left & Right: 3 Sit to lyin Lying to sitting on side of be: 3 Sit to stand: 4 Chair/cmd-bk-auuix transfer: 4 Walk 10 feet: 4 Walk 50 feet with two turns: 4 Walk 150 feet: 4 PT Mcfp Goals Transitional Care Nurse Goals PT Mcfp Goals Time Frame: April 03, 2020 Roll Left & Right (QC): 6 Sit to Lying (QC): 6 Lying-Sitting on Side/Bed(QC): 6 Sit to Stand (QC): 6 Chair/Lwy-ir-Dflio Xfer(QC): 6 Toilet Transfer (QC): 6 Car Transfer (QC): 6 Does the Patient Walk: Yes Walk 10 feet (QC): 6 Walk 50ft with 2 Turns (QC): 6 Walk 150 ft (QC): 6 Walking 10ft on Uneven Surface: 6 1 Step (curb) (QC): 4 4 Steps (QC): 4 12 Steps (QC): 88 Picking up an Object (QC): 88 Wheel 50 feet with 2 turns (QC: 88 Wheel 150 feet: 88 PT Plan Treatment/Plan Treatment Plan: Continue Plan of Care Treatment Plan: Bed Mobility, Education, Functional Activity Fern, Functional Strength, Group Therapy, Gait, Safety, Therapeutic Exercise, Transfers Treatment Duration: April 03, 2020 Frequency: At least 5 of 7 days/Wk (IRF) Estimated Hrs Per Day: 1.5 hours per day Patient and/or Family Agrees t: Yes Time/GCodes Time In: 1400 Time Out: 1435 Total Billed Treatment Time: 35 Total Billed Treatment 1, ther ex 15', gait 20' MOISÉS EMERSON CPTA April 03, 2020 14:48
--- NOTE | 2020-04-03 15:32 | NUR ---
"RD ASSESSMENT PMHx: hypercholesterolemia; HTN; NM PT INTERACTION: Pt was awake and pleasant during nutrition follow-up. Pt states she has been eating better since last assessment. Note avg PO intake 76% x4d, per chart review. This is a needed improvement for this pt as PO intake had been low for some time during admission. Pt states no issues with nausea, vomiting, constipation, or diarrhea. Pt states ostomy output is good. Note pt currently on bowel regimen of colace BID; senna BID; and miralax BID, per chart review. ABNORMAL NUTRITION-RELATED LAB VALUES LOW: Na 133; Ca 7.7; Pro 6.3; alb 2.5 HIGH: Cl 110; BUN 23; alkphos 160 Est. kcal needs: 5688-6962 kcal | 20-25 kcal/kg Est. Pro needs: 66-79 g Pro | 1.0-1.2 g Pro/kg PES STATEMENT: Given current PO intake, no nutrition diagnosis at this time (NO-1.1) INTERVENTION: Continue with current diet order of Regular diet. Will continue to follow and reassess as pt needs, intake, and status change. MONITOR/EVALUATE: PO Intake; Plan of Care; Hydration Status; Weight Status; Lab Values Camron Rogers, MS, RD, LD"
[2020-04-03 16:44] VITALS: BP 123/84
[2020-04-04 07:00] VITALS: BP 145/78
[2020-04-04] MEDS: PREDNISOLONE PO SCH ×16 (07:23→21:59)
[2020-04-04] MEDS: NYSTATIN PO SCH ×16 (07:23→21:59)
[2020-04-04] MEDS: [UNRECOGNIZED DRUG - OTHER] PO SCH ×16 (07:23→21:59)
[2020-04-04] MEDS: CATHETER FLUSH 10 ML SYR IV SCH ×3 (07:24→22:03)
[2020-04-04] MEDS: PANTOPRAZOLE 40 MG (PROTONIX) TAB PO SCH (08:11)
[2020-04-04] MEDS: ASPIRIN E.C. 81 MG (ECOTRIN) TAB PO SCH (08:11)
[2020-04-04] MEDS: CLOPIDOGREL 75 MG (PLAVIX) TABLET PO SCH (08:11)
[2020-04-04] MEDS: meTOprolol TARTRATE 50 MG (LOPRESSOR) TAB PO SCH ×2 (08:11→21:59)
[2020-04-04] MEDS: SENNA W/DOCUSATE (SENOKOT S) TABLET PO SCH ×2 (08:13→21:54)
[2020-04-04] MEDS: DOCUSATE SODIUM 100 MG (COLACE) CAP PO SCH ×2 (08:13→21:54)
[2020-04-04] MEDS: polyethylene glycoL POWDER 17 GM (MIRALAX) PACK PO SCH ×2 (08:13→21:54)
[2020-04-04] MEDS: MICONAZOLE 2% POWDER (DESENEX AF) 90 GM TOP SCH ×2 (09:15→21:54)
[2020-04-04] MEDS: NYSTATIN CREAM (MYCOSTATIN) 30 GM TUBE TP SCH ×2 (09:15→21:54)
--- NOTE | 2020-04-04 12:01 | Physical Therapy Daily Note ---
PT Daily Note-Current Subjective Pt. happy to report she is feeling well and doing well and is going home Mon. Requests long walk to vending machines and back Pain Location: No Pain Reported Mental Status Patient Orientation: Normal For Age Transfers SCALE: Activities may be completed with or without assistive devices. 6-Qylyprlnat-gcjmwuc completes the activity by him/herself with no assistance from a helper. 5-Set-up or Clean-up Assistance-helper sets up or cleans up; patient completes activity. [place] assists only prior to or following the activity. 4-Supervision or Touching Assistance-helper provides verbal cues and/or touching/steadying and/or contact guard assistance as patient completes activity. Assistance may be provided throughout the activity or intermittently. 3-Partial/Moderate Assistance-helper does LESS THAN HALF the effort. [place] li fts, holds or supports trunk or limbs, but provides less than half the effort. 2-Substantial/Maximal Assistance-helper does MORE THAN HALF the effort. [place] lifts or holds trunk or limbs and provides more than half the effort. 4-Ixnzmwluq-dasauv does ALL the effort. Patient does none of the effort to complete the activity. Or, the assistance of 2 or more helpers is required for the patient to complete the activity. If activity was not attempted, code reason: 7-Patient Refused. 9-Not Applicable-not attempted and the patient did not perform the activity before the current illness, exacerbation or injury. 10-Not Attempted due to Environmental Limitations-(lack of equipment, weather restraints, etc.). 88-Not Attempted due to Medical Conditions or Safety Concerns. all TRFs mod I Weight Bearing Right Lower Extremity: Right Full Weight Bearing Left Lower Extremity: Left Full Weight Bearing Gait Training Does the Patient Walk?: Yes Gait Persons Needed: 0 Gait Assistive Device: FWW pt. ambulated 600 ft. with FWW no LOB with good endurance and good handling of FWW. pt. up ad roro in room Exercises Seated Therapy Exercises: Ankle pumps, Long arc quads, Hip flexion, Hip abd/add Seated Reps: 10 Assessment Current Status: Good Progress meets goals PT Short Term Goals Short Term Goals Time Frame: Mar 20, 2020 Roll Left & Right: 3 Sit to lyin Lying to sitting on side of be: 3 Sit to stand: 4 Chair/gou-ur-zfeux transfer: 4 Walk 10 feet: 4 Walk 50 feet with two turns: 4 Walk 150 feet: 4 PT Hosiery Knitter Goals Hosiery Knitter Goals PT Hosiery Knitter Goals Time Frame: April 03, 2020 Roll Left & Right (QC): 6 Sit to Lying (QC): 6 Lying-Sitting on Side/Bed(QC): 6 Sit to Stand (QC): 6 Chair/Bnv-do-Nyuqe Xfer(QC): 6 Toilet Transfer (QC): 6 Car Transfer (QC): 6 Does the Patient Walk: Yes Walk 10 feet (QC): 6 Walk 50ft with 2 Turns (QC): 6 Walk 150 ft (QC): 6 Walking 10ft on Uneven Surface: 6 1 Step (curb) (QC): 4 4 Steps (QC): 4 12 Steps (QC): 88 Picking up an Object (QC): 88 Wheel 50 feet with 2 turns (QC: 88 Wheel 150 feet: 88 PT Plan Treatment/Plan Treatment Plan: Continue Plan of Care Treatment Plan: Bed Mobility, Education, Functional Activity Fern, Functional Strength, Group Therapy, Gait, Safety, Therapeutic Exercise, Transfers Treatment Duration: April 03, 2020 Frequency: At least 5 of 7 days/Wk (IRF) Estimated Hrs Per Day: 1.5 hours per day Patient and/or Family Agrees t: Yes Safety Risks/Education Patient Education: Gait Training, Transfer Techniques, Correct Positioning, Disease Process, Safety Issues Teaching Recipient: Patient Teaching Methods: Demonstration, Discussion Response to Teaching: Verbalize Understanding, Return Demonstration Time/GCodes Time In: 1130 Time Out: 1155 Total Billed Treatment Time: 25 Total Billed Treatment 1,GT25m AN CHUN PTA April 04, 2020 12:00
--- NOTE | 2020-04-04 12:45 | PM&R Progress Note ---
Subjective HPI/CC On Admission Date Seen by Provider: April 04, 2020 Time Seen by Provider: 12:45 Subjective/Events-last exam Pt is eating better and more protein and no emesis reported so really now on track Changes her own dressing and bag now and is comfortable doing so now Overall feels as if she is improving immensely everyday Keeping up with her Gatorade and Water Up ad roro today by therapy DC planned for Monday Less drainage around the wound Jeet were removed Dr. Ji thinks it was looking really good Will check labs tomorrow instead of Monday in case she needs any IVF No significant falls and no pain Checked meds and labs Conferred with RN Reviewed therapy notes Review of Systems General: Fatigue Objective Exam Vital Signs Vital Signs Date Time Temp Pulse Resp B/P (MAP) Pulse Ox O2 Delivery O2 Flow Rate FiO2 04/04/20 16:08 36.4 90 16 130/84 (99) 100 Room Air Capillary Refill : Less Than 3 Seconds General Appearance: No Apparent Distress, Anxious, Chronically ill HEENT: PERRL/EOMI, Normal ENT Inspection, Pharynx Normal, Moist Mucous Membranes Neck: Full Range of Motion, Non Tender, Supple Respiratory: Chest Non Tender, Lungs Clear, No Accessory Muscle Use, No Respiratory Distress, Decreased Breath Sounds Cardiovascular: Regular Rate, Rhythm, No Gallop, No JVD, No Murmur Gastrointestinal: Normal Bowel Sounds, No Organomegaly, No Pulsatile Mass, Soft, Tenderness Back: Normal Inspection, No CVA Tenderness, No Vertebral Tenderness Extremity: Pedal Edema Neurologic/Psychiatric: Alert, Oriented x3, house parent II-XII Norm as Tested, Depressed Affect, Motor Weakness Skin: Normal Color Lymphatic: No Adenopathy Results/Procedures Lab Patient resulted labs reviewed. FIM Transfers Therapy Code Descriptions/Definitions Functional [place] Measure: 0=Not Assessed/NA 4=Minimal Assistance 1=Total Assistance 5=Supervision or Setup 2=Maximal Assistance 6=Modified [place] 3=Moderate Assistance 7=Complete IndependenceSCALE: Activities may be completed with or without assistive devices. 9-Ucbdvwymej-iqlyxja completes the activity by him/herself with no assistance fr om a helper. 5-Set-up or Clean-up Assistance-helper sets up or cleans up; patient completes activity. [place] assists only prior to or following the activity. 4-Supervision or Touching Assistance-helper provides verbal cues and/or touching/steadying and/or contact guard assistance as patient completes activity. Assistance may be provided throughout the activity or intermittently. 3-Partial/Moderate Assistance-helper does LESS THAN HALF the effort. [place] lifts, holds or supports trunk or limbs, but provides less than half the effort. 2-Substantial/Maximal Assistance-helper does MORE THAN HALF the effort. [place] lifts or holds trunk or limbs and provides more than half the effort. 5-Seuxfiwpi-turzly does ALL the effort. Patient does none of the effort to complete the activity. Or, the assistance of 2 or more helpers is required for the patient to complete the activity. If activity was not attempted, code reason: 7-Patient Refused. 9-Not Applicable-not attempted and the patient did not perform the activity before the current illness, exacerbation or injury. 10-Not Attempted due to Environmental Limitations-(lack of equipment, weather restraints, etc.). 88-Not Attempted due to Medical Conditions or Safety Concerns. Roll Left to Right (QC): 6 Sit to Lying (QC): 6 Sit to Stand (QC): 6 Chair/His-mo-Tzzet Xfer(QC): 6 Car Transfer (QC): 6 Gait Training Does the Patient Walk?: Yes Distance: 450' Walk 10 feet (QC): 6 Walk 50 ft with 2 Turns(QC): 6 Walk 150 ft (QC): 6 Walking 10ft/uneven surface-QC: 6 Gait Persons Needed: 0 Gait Assistive Device: FWW Wheelchair Training Does the Pt Use a Wheelchair?: No Wheel 50 ft with 2 turns (QC): 9 Wheel 150 ft (QC): 9 Stair Training Stair Training: Handrails/: 2 handrails #of Steps: 4 1 Step (curb) (QC): 6 4 Steps (QC): 6 12 Steps (QC): 7 Stairs: Pattern: Step to Balance Picking up an Object (QC): 5 ADL-Treatment Eating (QC): 6 (per pt report) Oral Hygiene (QC): 6 (pt reports completing oral hygiene IND prior to tx) Shower/Bathe Self (QC): 5 Upper Body Dressing (QC): 5 Lower Body Dressing (QC): 5 On/Off Footwear (QC): 5 Toileting Hygiene (QC): 6 Toilet Transfer (QC): 6 Assessment/Plan Assessment and Plan Assess & Plan/Chief Complaint Assessment: Debility s/p critical illness and VDRF 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 Anasarca much improved now after Lasix Hirsutism Poor albumin level improving with good nutrition Sore mouth resolved s/p fever Zosyn added by Dr Taveras empirically now DC Ascites s/p paracentesis just bloody serous NGTD Anemia s/p transfusions 2 units 03/17/20 now hgb 10 with iron infusions completed Situational depression Emesis causing ARF and volume depletion giving gentle IVF 03/27/20 and 03/28/20 and DC 03/29/20 Plan: Mouth treatment is improving status IRF protocol Lab tomorrow in prep for DC Monday Wound care to iliostomy site IVF DC DC Monday (1) S/P colectomy (2) Ileostomy in place (3) Hirsutism (4) Tachycardia (5) Anasarca (6) Anemia (7) Debility (8) Sigmoid volvulus (9) Leukocytosis (10) Acute kidney injury (11) Hyponatremia (12) Coronary artery disease (13) Abdominal pain Status: Acute (14) Elevated troponin (15) S/P cardiac cath SESAR BEEBE DO April 04, 2020 12:44
[2020-04-04 16:08] VITALS: BP 130/84
[2020-04-05 06:55] LABS: BASOPHILS % (AUTO) 0 % (0-10); EOSINOPHILS # (AUTO) 0.2 10^3/uL (0.0-0.3); EOSINOPHILS % (AUTO) 2 % (0-10); HEMATOCRIT 30 % (35-52); HEMOGLOBIN 9.8 G/DL (11.5-16.0); LYMPHOCYTES # (AUTO) 0.8 X 10^3 (1.0-4.0); LYMPHOCYTES % (AUTO) 12 % (12-44); MEAN CORPUSCULAR HEMOGLOBIN 27 PG (25-34); MEAN CORPUSCULAR HGB CONC 33 G/DL (32-36); MEAN CORPUSCULAR VOLUME 84 FL (80-99); MEAN PLATELET VOLUME 9.2 FL (7.4-10.4); MONOCYTES # (AUTO) 0.6 X 10^3 (0.0-1.0); MONOCYTES % (AUTO) 9 % (0-12); NEUTROPHILS % (AUTO) 76 % (42-75); PLATELET COUNT 189 10^3/uL (130-400); RED CELL DISTRIBUTION WIDTH 18.6 % (10.0-14.5); WHITE BLOOD COUNT 6.6 10^3/uL (4.3-11.0)
[2020-04-05 06:58] VITALS: BP 142/81
[2020-04-05 07:09] LABS: ALBUMIN 2.9 GM/DL (3.2-4.5)
[2020-04-05 07:10] LABS: CHLORIDE 108 MMOL/L (98-107); POTASSIUM 4.1 MMOL/L (3.6-5.0); SODIUM 136 MMOL/L (135-145)
[2020-04-05 07:12] LABS: GLUCOSE 98 MG/DL (70-105); TOTAL PROTEIN 6.8 GM/DL (6.4-8.2)
[2020-04-05 07:13] LABS: CARBON DIOXIDE 19 MMOL/L (21-32)
[2020-04-05 07:14] LABS: BILIRUBIN,TOTAL 0.3 MG/DL (0.1-1.0)
[2020-04-05 07:15] LABS: ALKALINE PHOSPHATASE 173 U/L (40-136)
[2020-04-05 07:16] LABS: CREATININE SERUM 0.77 MG/DL (0.60-1.30); GFR ESTIMATED > 60
[2020-04-05 07:17] LABS: BUN/CREATININE RATIO 22
[2020-04-05] MEDS: [UNRECOGNIZED DRUG - OTHER] PO SCH ×16 (07:17→21:47)
[2020-04-05] MEDS: PREDNISOLONE PO SCH ×16 (07:17→21:47)
[2020-04-05] MEDS: NYSTATIN PO SCH ×16 (07:17→21:47)
[2020-04-05] MEDS: CATHETER FLUSH 10 ML SYR IV SCH ×3 (07:18→21:44)
[2020-04-05 07:19] LABS: ALANINE AMINOTRANSFERASE 20 U/L (0-55)
[2020-04-05] MEDS: PANTOPRAZOLE 40 MG (PROTONIX) TAB PO SCH (08:05)
[2020-04-05] MEDS: ASPIRIN E.C. 81 MG (ECOTRIN) TAB PO SCH (08:05)
[2020-04-05] MEDS: CLOPIDOGREL 75 MG (PLAVIX) TABLET PO SCH (08:05)
[2020-04-05] MEDS: meTOprolol TARTRATE 50 MG (LOPRESSOR) TAB PO SCH ×2 (08:05→21:43)
[2020-04-05] MEDS: SENNA W/DOCUSATE (SENOKOT S) TABLET PO SCH ×2 (08:07→21:48)
[2020-04-05] MEDS: polyethylene glycoL POWDER 17 GM (MIRALAX) PACK PO SCH ×2 (08:07→21:48)
[2020-04-05] MEDS: DOCUSATE SODIUM 100 MG (COLACE) CAP PO SCH ×2 (08:07→21:49)
[2020-04-05] MEDS: MICONAZOLE 2% POWDER (DESENEX AF) 90 GM TOP SCH ×2 (08:08→21:48)
[2020-04-05] MEDS: NYSTATIN CREAM (MYCOSTATIN) 30 GM TUBE TP SCH ×2 (08:08→21:48)
--- NOTE | 2020-04-05 10:29 | PM&R Progress Note ---
Subjective HPI/CC On Admission Date Seen by Provider: April 05, 2020 Time Seen by Provider: 12:45 Subjective/Events-last exam Pt is eating better and more protein and no emesis reported so really now on track Changes her own dressing and bag now and is comfortable doing so now and has done well with education Overall feels as if she is improving immensely everyday Keeping up with her Gatorade and Water Up ad roro today by therapy DC planned for tomorrow Less drainage around the wound Jeet were removed last week Dr. Ji thinks it was looking really good Labs reviewed today and all normal No significant falls and no pain Checked meds and labs Conferred with RN Reviewed therapy notes Review of Systems General: Fatigue Neurological: Weakness Objective Exam Vital Signs Vital Signs Date Time Temp Pulse Resp B/P (MAP) Pulse Ox O2 Delivery O2 Flow Rate FiO2 04/05/20 17:06 36.3 94 20 148/93 (111) 100 Room Air Capillary Refill : Less Than 3 Seconds General Appearance: No Apparent Distress, Anxious, Chronically ill HEENT: PERRL/EOMI, Normal ENT Inspection, Pharynx Normal, Moist Mucous Membranes Neck: Full Range of Motion, Non Tender, Supple Respiratory: Chest Non Tender, Lungs Clear, No Accessory Muscle Use, No Respiratory Distress, Decreased Breath Sounds Cardiovascular: Regular Rate, Rhythm, No Gallop, No JVD, No Murmur Gastrointestinal: Normal Bowel Sounds, No Organomegaly, No Pulsatile Mass, Soft, Tenderness Back: Normal Inspection, No CVA Tenderness, No Vertebral Tenderness Extremity: Pedal Edema Neurologic/Psychiatric: Alert, Oriented x3, cutting table operator II-XII Norm as Tested, Depressed Affect, Motor Weakness Skin: Normal Color Lymphatic: No Adenopathy Results/Procedures Lab Laboratory Tests 04/05/20 06:40 Patient resulted labs reviewed. FIM Transfers Therapy Code Descriptions/Definitions Functional [place] Measure: 0=Not Assessed/NA 4=Minimal Assistance 1=Total Assistance 5=Supervision or Setup 2=Maximal Assistance 6=Modified [place] 3=Moderate Assistance 7=Complete IndependenceSCALE: Activities may be completed with or without assistive devices. 6-Tchkxzfvhr-vzpkiye completes the activity by him/herself with no assistance from a helper. 5-Set-up or Clean-up Assistance-helper sets up or cleans up; patient completes activity. [place] assists only prior to or following the activity. 4-Supervision or Touching Assistance-helper provides verbal cues and/or touching/steadying and/or contact guard assistance as patient completes activity. Assistance may be provided throughout the activity or intermittently. 3-Partial/Moderate Assistance-helper does LESS THAN HALF the effort. [place] lifts, holds or supports trunk or limbs, but provides less than half the effort. 2-Substantial/Maximal Assistance-helper does MORE THAN HALF the effort. [place] lifts or holds trunk or limbs and provides more than half the effort. 1-Amzuocjnk-gldvzh does ALL the effort. Patient does none of the effort to complete the activity. Or, the assistance of 2 or more helpers is required for the patient to complete the activity. If activity was not attempted, code reason: 7-Patient Refused. 9-Not Applicable-not attempted and the patient did not perform the activity before the current illness, exacerbation or injury. 10-Not Attempted due to Environmental Limitations-(lack of equipment, weather restraints, etc.). 88-Not Attempted due to Medical Conditions or Safety Concerns. Roll Left to Right (QC): 6 Sit to Lying (QC): 6 Sit to Stand (QC): 6 Chair/Jom-ib-Uvzlo Xfer(QC): 6 Car Transfer (QC): 6 Gait Training Does the Patient Walk?: Yes Distance: 450' Walk 10 feet (QC): 6 Walk 50 ft with 2 Turns(QC): 6 Walk 150 ft (QC): 6 Walking 10ft/uneven surface-QC: 6 Gait Persons Needed: 0 Gait Assistive Device: FWW Wheelchair Training Does the Pt Use a Wheelchair?: No Wheel 50 ft with 2 turns (QC): 9 Wheel 150 ft (QC): 9 Stair Training Stair Training: Handrails/: 2 handrails #of Steps: 4 1 Step (curb) (QC): 6 4 Steps (QC): 6 12 Steps (QC): 7 Stairs: Pattern: Step to Balance Picking up an Object (QC): 5 ADL-Treatment Eating (QC): 6 (per pt report) Oral Hygiene (QC): 6 (pt reports completing oral hygiene IND prior to tx) Shower/Bathe Self (QC): 5 Upper Body Dressing (QC): 5 Lower Body Dressing (QC): 5 On/Off Footwear (QC): 5 Toileting Hygiene (QC): 6 Toilet Transfer (QC): 6 Assessment/Plan Assessment and Plan Assess & Plan/Chief Complaint Assessment: Debility s/p critical illness and VDRF 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 Anasarca much improved now after Lasix Hirsutism Poor albumin level improving with good nutrition Sore mouth resolved s/p fever Zosyn added by Dr Taveras empirically now DC Ascites s/p paracentesis just bloody serous NGTD Anemia s/p transfusions 2 units 03/17/20 now hgb 10 with iron infusions completed Situational depression Emesis causing ARF and volume depletion giving gentle IVF 03/27/20 and 03/28/20 and DC 03/29/20 Plan: Mouth treatment is improving status IRF protocol Lab tomorrow in prep for DC Monday Wound care to iliostomy site IVF DC DC Monday (1) S/P colectomy (2) Ileostomy in place (3) Hirsutism (4) Tachycardia (5) Anasarca (6) Anemia (7) Debility (8) Sigmoid volvulus (9) Leukocytosis (10) Acute kidney injury (11) Hyponatremia (12) Coronary artery disease (13) Abdominal pain Status: Acute (14) Elevated troponin (15) S/P cardiac cath SESAR BEEBE DO April 05, 2020 10:29
[2020-04-05 17:06] VITALS: BP_SYST 100; BP_SYST 148; BP_DIAS 64; BP_DIAS 93
[2020-04-05] MEDS ORDERED: ASPI-983 PO ×2 (18:05)
[2020-04-05] MEDS ORDERED: ALPR0.254 PO ×2 (18:05)
[2020-04-05] MEDS ORDERED: CLOP75TA28 PO ×2 (18:05)
[2020-04-05] MEDS ORDERED: PANT40TA3 PO ×2 (18:05)
[2020-04-05] MEDS ORDERED: OXYC5TAB96 PO ×2 (18:05)
[2020-04-05] MEDS ORDERED: METO50TA15 PO ×2 (18:05)
--- NOTE | 2020-04-05 18:08 | D/C HH Face to Face Order ---
D/C Face to Face Orders Reconcile Patient Problems Problems Reviewed?: Yes Instructions for Patient Via [facility], Patient Instructions/FollowUp: [facility] [address] Ji 1 week Physician to follow Patient: [facility] Discharge Diet for Home: No Restrictions Patient Problems: s/p ischemic bowel resection Severe weight loss Iliostomy requiring aggressive PO fluid intake permanently Goals for Patient: [place] Patient Data-Allergies,Ht & Wt Patient Allergies: Coded Allergies: No Known Drug Allergies (Unverified , 11/11/19) Home Health Need/Face to Face Date of Face to Face: April 06, 2020 Clinical Findings: Generalized weakness and fatigue, Immune-compromised, Instability, Muscle weakness, Pain with ambulation, Unsteady gait, Non-healing wound I have seen Pt hqsn-uh-vprv: Yes Discharged To: Home Diagnosis/Conditions: s/p ischemic bowel resection Severe weight loss Iliostomy requiring aggressive PO fluid intake permanently Patient is Homebound due to: Luciano fall risk due to instabilty, Muscle weakness Homebound Status Due to the above stated illness, injury or surgical procedure (medical cond ition or diagnosis) and associated clinical findings, the patient is homebound because of his/her inability to leave home except with aid of a supportive device and/or person AND leaving the home requires a considerable and taxing effort or is medically contraindicated. Pt req the following assistanc: [facility] Home Health Nursing Orders Home Health Services Order: Nursing Services (wound management, iliostomy guidance) Home Health Infusion Therapy Line Start Date: Mar 16, 2020 Certify Stmt I certify that this patient is under my care and that I, a nurse practitioner or a physician; a administrative assistant office manager working with me, had a face to face encounter that -meets the physician face to face encounter requirements with this patient as dated. SESAR BEEBE DO April 05, 2020 18:08
[2020-04-06 06:25] VITALS: BP 131/82
[2020-04-06] MEDS: PREDNISOLONE PO SCH ×8 (06:50→12:03)
[2020-04-06] MEDS: NYSTATIN PO SCH ×8 (06:50→12:03)
[2020-04-06] MEDS: [UNRECOGNIZED DRUG - OTHER] PO SCH ×8 (06:50→12:03)
[2020-04-06] MEDS: CATHETER FLUSH 10 ML SYR IV SCH (06:51)
[2020-04-06 08:05] VITALS: BP 156/99
[2020-04-06] MEDS: DOCUSATE SODIUM 100 MG (COLACE) CAP PO SCH (08:06)
[2020-04-06] MEDS: ASPIRIN E.C. 81 MG (ECOTRIN) TAB PO SCH (08:06)
[2020-04-06] MEDS: meTOprolol TARTRATE 50 MG (LOPRESSOR) TAB PO SCH (08:07)
[2020-04-06] MEDS: SENNA W/DOCUSATE (SENOKOT S) TABLET PO SCH (08:07)
[2020-04-06] MEDS: CLOPIDOGREL 75 MG (PLAVIX) TABLET PO SCH (08:07)
[2020-04-06] MEDS: PANTOPRAZOLE 40 MG (PROTONIX) TAB PO SCH (08:07)
--- NOTE | 2020-04-06 08:42 | Occupational Ther Daily Note ---
OT Current Status-Daily Note Subjective Pt seated EOB at start of session, agreed to OT tx. She did not report any pain. Mental Status/Objective Patient Orientation: Normal For Age Attachments: Colostomy/Ileostomy ADL-Treatment Therapy Code Descriptions/Definitions Functional [place] Measure: 0=Not Assessed/NA 4=Minimal Assistance 1=Total Assistance 5=Supervision or Setup 2=Maximal Assistance 6=Modified [place] 3=Moderate Assistance 7=Complete IndependenceSCALE: Activities may be completed with or without assistive devices. 2-Fcypolvscl-qhtufov completes the activity by him/herself with no assistance from a helper. 5-Set-up or Clean-up Assistance-helper sets up or cleans up; patient completes activity. [place] assists only prior to or following the activity. 4-Supervision or Touching Assistance-helper provides verbal cues and/or touching/steadying and/or contact guard assistance as patient completes activity. Assistance may be provided throughout the activity or intermittently. 3-Partial/Moderate Assistance-helper does LESS THAN HALF the effort. [place] lifts, holds or supports trunk or limbs, but provides less than half the effort. 2-Substantial/Maximal Assistance-helper does MORE THAN HALF the effort. [place] lifts or holds trunk or limbs and provides more than half the effort. 4-Jcrigigst-whxbjq does ALL the effort. Patient does none of the effort to complete the activity. Or, the assistance of 2 or more helpers is required for the patient to complete the activity. If activity was not attempted, code reason: 7-Patient Refused. 9-Not Applicable-not attempted and the patient did not perform the activity before the current illness, exacerbation or injury. 10-Not Attempted due to Environmental Limitations-(lack of equipment, weather restraints, etc.). 88-Not Attempted due to Medical Conditions or Safety Concerns. Eating (QC): 6 Oral Hygiene (QC): 6 (seated at sink) Shower/Bathe Self (QC): 5 (set up due to assist for covering dressing. Pt then able to complete all parts of shower) Upper Body Dressing (QC): 6 (pt gathered clothes from closet then donned wire puller shirt without difficulty.) Lower Body Dressing (QC): 6 (pt gathered clothes from closet then donned pants without difficulty.) On/Off Footwear: 6 (pt gathered footwear, doffing/donning without difficulty.) Toileting Hygiene (QC): 6 (pt emptied ostomy into toilet) Toilet Transfer (QC): 6 Other Treatment Pt seated EOB at start of session, nurse present providing meds. Pt able to take meds and drink from glass without difficulty. She then emptied ostomy into toilet, noting she no longer had a good seal with the ostomy and had some leakage. Pt donned/doffed clothes, completed oral hygiene and showering to obtain QC scores. She then transferred to bed wearing a hospital gown in order for her to change dressing and ostomy. Post OT tx, pt seated EOB, call light in reach and all needs met. Nursing present to assist pt with changing ostomy/dressing. Education OT Patient Education: Correct positioning, Energy conservation, Modified ADL techniques, Progress toward Goal/Update tx plan, Purpose of tx/functional activities Teaching Recipient: Patient Teaching Methods: Discussion Response to Teaching: Verbalize Understanding OT Short Term Goals Short Term Goals Upper body dressin Lower body dressin Putting on/taking off footwear: 5 OT Jail Goals Jail Goals Time Frame: April 08, 2020 Eating (QC): 6 (met) Oral Hygiene (QC): 6 (met) Toileting Hygiene (QC): 6 (met) Shower/Bathe Self (QC): 6 (not met, set up) Upper Body Dressing (QC): 6 (met) Lower Body Dressing (QC): 6 (met) On/Off Footwear (QC): 6 (met) Additional Goals: 1-Demonstrate ADL Tasks, 2-Verbalize Understanding, 3- ImproveStrength/Fern 1=Demonstrate adherence to instructed precautions during ADL tasks. 2=Patient will verbalize/demonstrate understanding of assistive devices/modifications for ADL. 3=Patient will improve strength/tolerance for activity to enable patient to perform ADL's. OT Education/Plan Problem List/Assessment Assessment: Decreased Activ Tolerance, Decreased UE Strength Discharge Recommendations Plan/Recommendations: Continue POC Treatment Plan/Plan of Care Treatment,Training & Education: Yes Patient would benefit from OT for education, treatment and training to promote independence in ADL's, mobility, safety and/or upper extremity function for ADL's. Plan of Care: ADL Retraining, Concurrent Therapy, Functional Mobility, Group Exercise/Act as Ind, UE Funct Exercise/Act Treatment Duration: March 27, 2020 Frequency: At least 5 of 7 days/Wk (IRF) Estimated Hrs Per Day: 1.5 hours per day Agreement: Yes Rehab Potential: Good Time/GCodes Start Time: 08:00 Stop Time: 08:50 Total Time Billed (hr/min): 50 Billed Treatment Time 1, ADL 3 SHAVON BARTLETT OT April 06, 2020 08:42
[2020-04-06] MEDS: NYSTATIN CREAM (MYCOSTATIN) 30 GM TUBE TP SCH (09:00)
[2020-04-06] MEDS: polyethylene glycoL POWDER 17 GM (MIRALAX) PACK PO SCH (09:00)
[2020-04-06] MEDS: MICONAZOLE 2% POWDER (DESENEX AF) 90 GM TOP SCH (09:00)
--- NOTE | 2020-04-06 09:28 | Discharge Summary ---
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 Anasarca much improved now after Lasix Hirsutism Poor albumin level improving with good nutrition Sore mouth resolved s/p fever Zosyn added by Dr Taveras empirically now DC Ascites s/p paracentesis just bloody serous NGTD Anemia s/p transfusions 2 units 03/17/20 now hgb 10 with iron infusions completed Situational depression Emesis causing ARF and volume depletion giving gentle IVF 03/27/20 and 03/28/20 and DC 03/29/20 Plan: Mouth treatment is improving status IRF protocol Lab tomorrow in prep for DC Monday Wound care to iliostomy site IVF DC DC Monday (1) S/P colectomy (2) Ileostomy in place (3) Hirsutism (4) Tachycardia (5) Anasarca (6) Anemia (7) Debility (8) Sigmoid volvulus (9) Leukocytosis (10) Acute kidney injury (11) Hyponatremia (12) Coronary artery disease (13) Abdominal pain Status: Acute (14) Elevated troponin (15) S/P cardiac cath Discharge Summary Discharge Physical Examination Allergies: Coded Allergies: No Known Drug Allergies (Unverified , 11/11/19) Vitals & I&Os Vital Signs Date Time Temp Pulse Resp B/P (MAP) Pulse Ox O2 Delivery O2 Flow Rate FiO2 04/06/20 15:06 35.8 112 16 156/99 100 Room Air General Appearance: Alert, Oriented X3, Cooperative Respiratory: Clear to Auscultation Cardiovascular: Regular Rate Neuro: Normal Gait, Normal Speech, Strength at 5/5 X4 Ext Psych/Mental Status: Mental Status NL Hospital Course Was the Problem List Reviewed?: Yes Hospital course: Pt had a very long complicated course, for 25 days in inpatient rehab, after she was recovering from a critical illness of ischemic bowel s/p c omplete resection of the colon and placed an ileostomy by Dr. Ji. Pt had pneumonia during her hospital course, antibiotics initiated with good results. IV fluids were needed during the hospital course several times due to output of ileostomy and not drinking enough fluids so we did shift to gatorade and water with good results and maintained on good fluid status. She did receive IV iron and two units of blood while she was in inpatient rehab and just overall she required aggressive treatment but was able to get strong enough to be able to go home with a friend who will look after her but home health was also ordered. All pain medication and regular medication was sent to [facility] in [place] that was confirmed by housing case manager. Overall she did very well and was discharged in improved condition, well on her way to complete recovery. Labs (last 24 hrs) Laboratory Tests 03/13/20 11:35: Lab Scanned Report Referred Lab Report 03/14/20 05:22: White Blood Count 18.6H, Red Blood Count 2.90L, Hemoglobin 7.6L, Hematocrit 23L, Mean Corpuscular Volume 78L, Mean Corpuscular Hemoglobin 26, Mean Corpuscular Hemoglobin Concent 34, Red Cell Distribution Width 22.8H, Platelet Count 564H, Mean Platelet Volume 8.9, Neutrophils (%) (Auto) 82H, Lymphocytes (%) (Auto) 8L, Monocytes (%) (Auto) 9, Eosinophils (%) (Auto) 1, Basophils (%) (Auto) 0, Neutrophils # (Auto) 15.2H, Lymphocytes # (Auto) 1.5, Monocytes # (Auto) 1.6H, Eosinophils # (Auto) 0.2, Basophils # (Auto) 0.0, Sodium Level 130L, Potassium Level 4.1, Chloride Level 102, Carbon Dioxide Level 19L, Anion Gap 9, Blood Urea Nitrogen 14, Creatinine 0.61, Estimat Glomerular Filtration Rate > 60, BUN/Creatinine Ratio 23, Glucose Level 102, Calcium Level 6.8L, Corrected Calcium 8.4L, Iron Level 21L, Total Bilirubin 0.6, Aspartate Amino Transf (AST/SGOT) 23, Alanine Aminotransferase (ALT/SGPT) 19, Alkaline Phosphatase 87, Total Protein 4.9L, Albumin 2.0L 03/14/20 09:00: Lactic Acid Level 0.88, Procalcitonin 0.46H 03/14/20 11:45: Urine Color YELLOW, Urine Clarity CLEAR, Urine pH 6.0, Urine Specific [place] <=1.005, Urine Protein NEGATIVE, Urine Glucose (UA) NEGATIVE, Urine Ketones NEGATIVE, Urine Nitrite NEGATIVE, Urine Bilirubin NEGATIVE, Urine Urobilinogen 0.2, Urine Leukocyte Esterase TRACEH, Urine RBC (Auto) 1+H, Urine RBC 0-2, Urine WBC 0-2, Urine Squamous Epithelial Cells 2-5, Urine Crystals NONE, Urine Bacteria NEGATIVE, Urine Casts NONE, Urine Mucus NEGATIVE, Urine Culture Indicated NO 03/15/20 08:04: White Blood Count 19.0H, Red Blood Count 2.97L, Hemoglobin 7.7L, Hematocrit 24L, Mean Corpuscular Volume 79L, Mean Corpuscular Hemoglobin 26, Mean Corpuscular Hemoglobin Concent 33, Red Cell Distribution Width 23.7H, Platelet Count 628H, Mean Platelet Volume 8.5, Neutrophils (%) (Auto) 83H, Lymphocytes (%) (Auto) 7L, Monocytes (%) (Auto) 8, Eosinophils (%) (Auto) 1, Basophils (%) (Auto) 0, Neutrophils # (Auto) 15.9H, Lymphocytes # (Auto) 1.3, Monocytes # (Auto) 1.6H, Eosinophils # (Auto) 0.2, Basophils # (Auto) 0.0, Sodium Level 133L, Potassium Level 4.1, Chloride Level 103, Carbon Dioxide Level 20L, Anion Gap 10, Blood Urea Nitrogen 12, Creatinine 0.61, Estimat Glomerular Filtration Rate > 60, BUN/Creatinine Ratio 20, Glucose Level 93, Calcium Level 7.0L, Corrected Calcium 8.5, Phosphorus Level 2.8, Magnesium Level 1.7, Total Bilirubin 0.9, Aspartate Amino Transf (AST/SGOT) 21, Alanine Aminotransferase (ALT/SGPT) 18, Alkaline Phosphatase 93, Total Protein 5.2L, Albumin 2.1L 03/15/20 12:35: Vancomycin Level Trough 27.5*H 03/16/20 05:45: White Blood Count 18.1H, Red Blood Count 2.80L, Hemoglobin 7.2L, Hematocrit 23L, Mean Corpuscular Volume 81, Mean Corpuscular Hemoglobin 26, Mean Corpuscular Hemoglobin Concent 32, Red Cell Distribution Width 23.6H, Platelet Count 633H, Mean Platelet Volume 8.6, Neutrophils (%) (Auto) 84H, Lymphocytes (%) (Auto) 7L, Monocytes (%) (Auto) 8, Eosinophils (%) (Auto) 2, Basophils (%) (Auto) 0, Neutrophils # (Auto) 15.2H, Lymphocytes # (Auto) 1.2, Monocytes # (Auto) 1.4H, Eosinophils # (Auto) 0.3, Basophils # (Auto) 0.0, Sodium Level 133L, Potassium Level 3.7, Chloride Level 105, Carbon Dioxide Level 19L, Anion Gap 9, Blood Urea Nitrogen 11, Creatinine 0.59L, Estimat Glomerular Filtration Rate > 60, BUN/Creatinine Ratio 19, Glucose Level 103, Calcium Level 7.0L, Phosphorus Level 2.9, Magnesium Level 1.7, Vancomycin Level Trough 12.2, Prothrombin Time 18.3H, INR Comment 1.5H 03/16/20 13:47: Body Fluid Source PERITON, Body Fluid Color RED, Body Fluid Appearance MOD BLDY, Body Fluid WBC 800, Body Fluid RBC [id number], Body Fluid Polynuclear WBCs 50, Body Fluid Mononuclear WBCs 10, Body Fluid Lymphocytes 40, Body Fluid Other Cells , Body Fluid Glucose 94, Body Fluid Total Protein 2.8, Body Fluid Lactate Dehydrogenase 586, Body Fluid Amylase 47, Body Fluid Creatinine 0.51 03/17/20 06:15: White Blood Count 12.0H, Red Blood Count 2.58L, Hemoglobin 6.6*L, Hematocrit 21L , Mean Corpuscular Volume 82, Mean Corpuscular Hemoglobin 26, Mean Corpuscular Hemoglobin Concent 31L, Red Cell Distribution Width 24.4H, Platelet Count 498H, Mean Platelet Volume 8.4, Neutrophils (%) (Auto) 81H, Lymphocytes (%) (Auto) 8L, Monocytes (%) (Auto) 9, Eosinophils (%) (Auto) 2, Basophils (%) (Auto) 0, Neutrophils # (Auto) 9.7H, Lymphocytes # (Auto) 1.0, Monocytes # (Auto) 1.1H, Eosinophils # (Auto) 0.2, Basophils # (Auto) 0.0, Sodium Level 136, Potassium Level 3.7, Chloride Level 108H, Carbon Dioxide Level 19L, Anion Gap 9, Blood Urea Nitrogen 8, Creatinine 0.56L, Estimat Glomerular Filtration Rate > 60, BUN/Creatinine Ratio 14, Glucose Level 88, Calcium Level 7.1L, Phosphorus Level 3.3, Magnesium Level 1.6 03/18/20 07:25: White Blood Count 12.9H, Red Blood Count 3.55L, Hemoglobin 9.6#L, Hematocrit 29L , Mean Corpuscular Volume 83, Mean Corpuscular Hemoglobin 27, Mean Corpuscular Hemoglobin Concent 33, Red Cell Distribution Width 22.0H, Platelet Count 506H, Mean Platelet Volume 8.5, Neutrophils (%) (Auto) 81H, Lymphocytes (%) (Auto) 9L, Monocytes (%) (Auto) 9, Eosinophils (%) (Auto) 2, Basophils (%) (Auto) 0, Neutrophils # (Auto) 10.4H, Lymphocytes # (Auto) 1.1, Monocytes # (Auto) 1.1H, Eosinophils # (Auto) 0.2, Basophils # (Auto) 0.0, Sodium Level 134L, Potassium Level 3.8, Chloride Level 109H, Carbon Dioxide Level 16L, Anion Gap 9, Blood Urea Nitrogen 8, Creatinine 0.60, Estimat Glomerular Filtration Rate > 60, BUN/ Creatinine Ratio 13, Glucose Level 110H, Calcium Level 7.3L, Phosphorus Level 3.0, Magnesium Level 1.7 03/19/20 06:30: White Blood Count 10.9, Red Blood Count 3.62L, Hemoglobin 9.8L, Hematocrit 30L, Mean Corpuscular Volume 83, Mean Corpuscular Hemoglobin 27, Mean Corpuscular Hemoglobin Concent 33, Red Cell Distribution Width 22.5H, Platelet Count 430H, Mean Platelet Volume 8.2, Neutrophils (%) (Auto) 81H, Lymphocytes (%) (Auto) 8L, Monocytes (%) (Auto) 8, Eosinophils (%) (Auto) 3, Basophils (%) (Auto) 0, Neutrophils # (Auto) 8.7H, Lymphocytes # (Auto) 0.9L, Monocytes # (Auto) 0.9, Eosinophils # (Auto) 0.3, Basophils # (Auto) 0.0, Sodium Level 137, Potassium Level 3.8, Chloride Level 112H, Carbon Dioxide Level 15L, Anion Gap 10, Blood Urea Nitrogen 8, Creatinine 0.62, Estimat Glomerular Filtration Rate > 60, BUN/Creatinine Ratio 13, Glucose Level 100, Calcium Level 7.5L, Phosphorus Level 3.1, Magnesium Level 1.8, Neutrophils % (Manual) 85, Lymphocytes % (Manual) 4, Monocytes % (Manual) 8, Eosinophils % (Manual) 1, Band Neutrophils 2, Poikilocytosis SLIGHT, Anisocytosis SLIGHT, [place] Cells SLIGHT 03/20/20 06:35: White Blood Count 9.4, Red Blood Count 3.54L, Hemoglobin 9.6L, Hematocrit 30L, Mean Corpuscular Volume 84, Mean Corpuscular Hemoglobin 27, Mean Corpuscular Hemoglobin Concent 32, Red Cell Distribution Width 22.4H, Platelet Count 381, Mean Platelet Volume 8.2, Neutrophils (%) (Auto) 79H, Lymphocytes (%) (Auto) 9L, Monocytes (%) (Auto) 10, Eosinophils (%) (Auto) 2, Basophils (%) (Auto) 0, Neutrophils # (Auto) 7.5, Lymphocytes # (Auto) 0.8L, Monocytes # (Auto) 0.9, Eosinophils # (Auto) 0.2, Basophils # (Auto) 0.0, Sodium Level 136, Potassium Level 3.8, Chloride Level 112H, Carbon Dioxide Level 15L, Anion Gap 9, Blood Urea Nitrogen 9, Creatinine 0.60, Estimat Glomerular Filtration Rate > 60, BUN/Creatinine Ratio 15, Glucose Level 91, Calcium Level 7.4L, Phosphorus Level 3.1, Magnesium Level 1.9 03/21/20 06:30: White Blood Count 10.0, Red Blood Count 3.62L, Hemoglobin 9.8L, Hematocrit 31L, Mean Corpuscular Volume 85, Mean Corpuscular Hemoglobin 27, Mean Corpuscular Hemoglobin Concent 32, Red Cell Distribution Width 22.4H, Platelet Count 359, Mean Platelet Volume 8.9, Neutrophils (%) (Auto) 82H, Lymphocytes (%) (Auto) 8L, Monocytes (%) (Auto) 9, Eosinophils (%) (Auto) 1, Basophils (%) (Auto) 0, Neutrophils # (Auto) 8.2H, Lymphocytes # (Auto) 0.8L, Monocytes # (Auto) 0.9, Eosinophils # (Auto) 0.1, Basophils # (Auto) 0.0, Sodium Level 138, Potassium Level 4.0, Chloride Level 114H, Carbon Dioxide Level 15L, Anion Gap 9, Blood Urea Nitrogen 9, Creatinine 0.60, Estimat Glomerular Filtration Rate > 60, BUN/Creatinine Ratio 15, Glucose Level 94, Calcium Level 7.7L, Phosphorus Level 3.1, Magnesium Level 1.8 03/22/20 06:45: White Blood Count 8.8, Red Blood Count 3.62L, Hemoglobin 10.0L, Hematocrit 31L, Mean Corpuscular Volume 84, Mean Corpuscular Hemoglobin 28, Mean Corpuscular Hemoglobin Concent 33, Red Cell Distribution Width 22.0H, Platelet Count 353, Mean Platelet Volume 8.4, Neutrophils (%) (Auto) 80H, Lymphocytes (%) (Auto) 9L, Monocytes (%) (Auto) 10, Eosinophils (%) (Auto) 1, Basophils (%) (Auto) 0, Neutrophils # (Auto) 7.0, Lymphocytes # (Auto) 0.8L, Monocytes # (Auto) 0.9, Eosinophils # (Auto) 0.1, Basophils # (Auto) 0.0, Sodium Level 135, Potassium Level 3.8, Chloride Level 112H, Carbon Dioxide Level 15L, Anion Gap 8, Blood Urea Nitrogen 7, Creatinine 0.61, Estimat Glomerular Filtration Rate > 60, BUN/Creatinine Ratio 11, Glucose Level 102, Calcium Level 7.8L, Phosphorus Level 3.0, Magnesium Level 2.0 03/23/20 06:35: White Blood Count 10.4, Red Blood Count 3.87L, Hemoglobin 10.6L, Hematocrit 33L, Mean Corpuscular Volume 85, Mean Corpuscular Hemoglobin 27, Mean Corpuscular Hemoglobin Concent 32, Red Cell Distribution Width 21.8H, Platelet Count 386, Mean Platelet Volume 8.7, Neutrophils (%) (Auto) 81H, Lymphocytes (%) (Auto) 7L, Monocytes (%) (Auto) 9, Eosinophils (%) (Auto) 2, Basophils (%) (Auto) 0, Neutrophils # (Auto) 8.4H, Lymphocytes # (Auto) 0.8L, Monocytes # (Auto) 0.9, Eosinophils # (Auto) 0.2, Basophils # (Auto) 0.0, Sodium Level 136, Potassium Level 4.0, Chloride Level 112H, Carbon Dioxide Level 16L, Anion Gap 8, Blood Urea Nitrogen 9, Creatinine 0.66, Estimat Glomerular Filtration Rate > 60, BUN/Creatinine Ratio 14, Glucose Level 102, Calcium Level 8.2L, Corrected Calcium 9.2, Total Bilirubin 0.8, Aspartate Amino Transf (AST/SGOT) 24, Alanine Aminotransferase (ALT/SGPT) 25, Alkaline Phosphatase 158H, Total Protein 7.0, Albumin 2.7L 03/25/20 04:45: White Blood Count 10.1, Red Blood Count 3.68L, Hemoglobin 10.2L, Hematocrit 31L, Mean Corpuscular Volume 85, Mean Corpuscular Hemoglobin 28, Mean Corpuscular Hemoglobin Concent 33, Red Cell Distribution Width 21.1H, Platelet Count 423H, Mean Platelet Volume 8.5, Neutrophils (%) (Auto) 80H, Lymphocytes (%) (Auto) 8L, Monocytes (%) (Auto) 10, Eosinophils (%) (Auto) 1, Basophils (%) (Auto) 0, Neutrophils # (Auto) 8.1H, Lymphocytes # (Auto) 0.9L, Monocytes # (Auto) 1.1H, Eosinophils # (Auto) 0.1, Basophils # (Auto) 0.0 03/27/20 05:45: White Blood Count 9.5, Red Blood Count 3.96L, Hemoglobin 10.8L, Hematocrit 34L, Mean Corpuscular Volume 85, Mean Corpuscular Hemoglobin 27, Mean Corpuscular Hemoglobin Concent 32, Red Cell Distribution Width 19.9H, Platelet Count 469H, Mean Platelet Volume 8.6, Neutrophils (%) (Auto) 77H, Lymphocytes (%) (Auto) 9L, Monocytes (%) (Auto) 11, Eosinophils (%) (Auto) 2, Basophils (%) (Auto) 0, Neutrophils # (Auto) 7.3, Lymphocytes # (Auto) 0.9L, Monocytes # (Auto) 1.1H, Eosinophils # (Auto) 0.2, Basophils # (Auto) 0.0, Sodium Level 130L, Potassium Level 4.8, Chloride Level 102, Carbon Dioxide Level 14L, Anion Gap 14, Blood Urea Nitrogen 35H, Creatinine 1.81H, Estimat Glomerular Filtration Rate 29, BUN/Creatinine Ratio 19, Glucose Level 101, Calcium Level 8.6, Corrected Calcium 9.4, Total Bilirubin 0.7, Aspartate Amino Transf (AST/SGOT) 26, Alanine Aminotransferase (ALT/SGPT) 30, Alkaline Phosphatase 224H, Total Protein 7.8, Albumin 3.0L 03/28/20 06:50: Sodium Level 130L, Potassium Level 4.5, Chloride Level 106, Carbon Dioxide Level 14L, Anion Gap 10, Blood Urea Nitrogen 37H, Creatinine 1.59H, Estimat Glomerular Filtration Rate 34, BUN/Creatinine Ratio 23, Glucose Level 98, Calcium Level 8.1L, Corrected Calcium 9.0, Total Bilirubin 0.5, Aspartate Amino Transf (AST/SGOT) 18, Alanine Aminotransferase (ALT/SGPT) 25, Alkaline Phosphatase 204H , Total Protein 7.3, Albumin 2.9L 03/30/20 06:05: White Blood Count 6.2, Red Blood Count 3.39L, Hemoglobin 9.4L, Hematocrit 29L, Mean Corpuscular Volume 86, Mean Corpuscular Hemoglobin 28, Mean Corpuscular Hemoglobin Concent 32, Red Cell Distribution Width 19.7H, Platelet Count 267, Mean Platelet Volume 8.5, Neutrophils (%) (Auto) 76H, Lymphocytes (%) (Auto) 10L , Monocytes (%) (Auto) 11, Eosinophils (%) (Auto) 3, Basophils (%) (Auto) 1, Neutrophils # (Auto) 4.7, Lymphocytes # (Auto) 0.6L, Monocytes # (Auto) 0.7, Eosinophils # (Auto) 0.2, Basophils # (Auto) 0.0, Sodium Level 133L, Potassium Level 4.2, Chloride Level 110H, Carbon Dioxide Level 15L, Anion Gap 8, Blood Urea Nitrogen 23H, Creatinine 0.74, Estimat Glomerular Filtration Rate > 60, BUN/Creatinine Ratio 31, Glucose Level 104, Calcium Level 7.7L, Corrected Calcium 8.9, Total Bilirubin 0.3, Aspartate Amino Transf (AST/SGOT) 17, Alanine Aminotransferase (ALT/SGPT) 19, Alkaline Phosphatase 160H, Total Protein 6.3L, Albumin 2.5L 04/05/20 06:40: White Blood Count 6.6, Red Blood Count 3.58L, Hemoglobin 9.8L, Hematocrit 30L, Mean Corpuscular Volume 84, Mean Corpuscular Hemoglobin 27, Mean Corpuscular Hemoglobin Concent 33, Red Cell Distribution Width 18.6H, Platelet Count 189, Mean Platelet Volume 9.2, Neutrophils (%) (Auto) 76H, Lymphocytes (%) (Auto) 12, Monocytes (%) (Auto) 9, Eosinophils (%) (Auto) 2, Basophils (%) (Auto) 0, Neutrophils # (Auto) 5.0, Lymphocytes # (Auto) 0.8L, Monocytes # (Auto) 0.6, Eosinophils # (Auto) 0.2, Basophils # (Auto) 0.0, Sodium Level 136, Potassium Level 4.1, Chloride Level 108H, Carbon Dioxide Level 19L, Anion Gap 9, Blood Urea Nitrogen 17, Creatinine 0.77, Estimat Glomerular Filtration Rate > 60, BUN/ Creatinine Ratio 22, Glucose Level 98, Calcium Level 8.0L, Corrected Calcium 8.9, Total Bilirubin 0.3, Aspartate Amino Transf (AST/SGOT) 18, Alanine Aminotransferase (ALT/SGPT) 20, Alkaline Phosphatase 173H, Total Protein 6.8, Albumin 2.9L Microbiology 03/16/20 Gram Stain - Final, Complete 03/16/20 Anaerobic Culture - Final, Complete No anaerobes isolated 03/16/20 Surgical Culture - Final, Complete No growth 03/14/20 Blood Culture - Final, Complete No growth Pending Labs Microbiology Date/Time Source Procedure Growth Status 03/16/20 13:47 Body Fluid Peritoneal Gram Stain - Final Complete 03/16/20 13:47 Body Fluid Peritoneal Anaerobic Culture - Final No anaerobes isolated Complete 03/16/20 13:47 Body Fluid Peritoneal Surgical Culture - Final No growth Complete 03/14/20 09:10 Peripheral Lt Hand Blood Culture - Final No growth Complete 03/14/20 09:05 Peripheral Rt Hand Blood Culture - Final No growth Complete 03/14/20 09:00 Peripheral Rt Ac Blood Culture - Final No growth Complete Laboratory Tests 03/13/20 11:35: Lab Scanned Report Referred Lab Report 03/14/20 05:22: White Blood Count 18.6, Red Blood Count 2.90, Hemoglobin 7.6, Hematocrit 23, Mean Corpuscular Volume 78, Mean Corpuscular Hemoglobin 26, Mean Corpuscular Hemoglobin Concent 34, Red Cell Distribution Width 22.8, Platelet Count 564, M mg Platelet Volume 8.9, Neutrophils (%) (Auto) 82, Lymphocytes (%) (Auto) 8, Monocytes (%) (Auto) 9, Eosinophils (%) (Auto) 1, Basophils (%) (Auto) 0, Neutrophils # (Auto) 15.2, Lymphocytes # (Auto) 1.5, Monocytes # (Auto) 1.6, Eosinophils # (Auto) 0.2, Basophils # (Auto) 0.0, Sodium Level 130, Potassium Level 4.1, Chloride Level 102, Carbon Dioxide Level 19, Anion Gap 9, Blood Urea Nitrogen 14, Creatinine 0.61, Estimat Glomerular Filtration Rate > 60, BUN/Creatinine Ratio 23, Glucose Level 102, Calcium Level 6.8, Corrected Calcium 8.4, Iron Level 21, Total Bilirubin 0.6, Aspartate Amino Transf (AST/SGOT) 23, Alanine Aminotransferase (ALT/SGPT) 19, Alkaline Phosphatase 87, Total Protein 4.9, Albumin 2.0 03/14/20 09:00: Lactic Acid Level 0.88, Procalcitonin 0.46 03/14/20 11:45: Urine Color YELLOW, Urine Clarity CLEAR, Urine pH 6.0, Urine Specific [place] <=1.005, Urine Protein NEGATIVE, Urine Glucose (UA) NEGATIVE, Urine Ketones NEGATIVE, Urine Nitrite NEGATIVE, Urine Bilirubin NEGATIVE, Urine Urobilinogen 0.2, Urine Leukocyte Esterase TRACE, Urine RBC (Auto) 1+, Urine RBC 0-2, Urine WBC 0-2, Urine Squamous Epithelial Cells 2-5, Urine Crystals NONE, Urine Bacteria NEGATIVE, Urine Casts NONE, Urine Mucus NEGATIVE, Urine Culture Indicated NO 03/15/20 08:04: White Blood Count 19.0, Red Blood Count 2.97, Hemoglobin 7.7, Hematocrit 24, Mean Corpuscular Volume 79, Mean Corpuscular Hemoglobin 26, Mean Corpuscular Hemoglobin Concent 33, Red Cell Distribution Width 23.7, Platelet Count 628, Mean Platelet Volume 8.5, Neutrophils (%) (Auto) 83, Lymphocytes (%) (Auto) 7, Monocytes (%) (Auto) 8, Eosinophils (%) (Auto) 1, Basophils (%) (Auto) 0, Neutrophils # (Auto) 15.9, Lymphocytes # (Auto) 1.3, Monocytes # (Auto) 1.6, Eosinophils # (Auto) 0.2, Basophils # (Auto) 0.0, Sodium Level 133, Potassium Level 4.1, Chloride Level 103, Carbon Dioxide Level 20, Anion Gap 10, Blood Urea Nitrogen 12, Creatinine 0.61, Estimat Glomerular Filtration Rate > 60, BUN/Creatinine Ratio 20, Glucose Level 93, Calcium Level 7.0, Corrected Calcium 8.5, Phosphorus Level 2.8, Magnesium Level 1.7, Total Bilirubin 0.9, Aspartate Amino Transf (AST/SGOT) 21, Alanine Aminotransferase (ALT/SGPT) 18, Alkaline Phosphatase 93, Total Protein 5.2, Albumin 2.1 03/15/20 12:35: Vancomycin Level Trough 27.5 03/16/20 05:45: White Blood Count 18.1, Red Blood Count 2.80, Hemoglobin 7.2, Hematocrit 23, Mean Corpuscular Volume 81, Mean Corpuscular Hemoglobin 26, Mean Corpuscular Hemoglobin Concent 32, Red Cell Distribution Width 23.6, Platelet Count 633, Mean Platelet Volume 8.6, Neutrophils (%) (Auto) 84, Lymphocytes (%) (Auto) 7, Monocytes (%) (Auto) 8, Eosinophils (%) (Auto) 2, Basophils (%) (Auto) 0, Neutrophils # (Auto) 15.2, Lymphocytes # (Auto) 1.2, Monocytes # (Auto) 1.4, Eosinophils # (Auto) 0.3, Basophils # (Auto) 0.0, Sodium Level 133, Potassium Level 3.7, Chloride Level 105, Carbon Dioxide Level 19, Anion Gap 9, Blood Urea Nitrogen 11, Creatinine 0.59, Estimat Glomerular Filtration Rate > 60, BUN/Creatinine Ratio 19, Glucose Level 103, Calcium Level 7.0, Phosphorus Level 2.9, Magnesium Level 1.7, Vancomycin Level Trough 12.2, Prothrombin Time 18.3, INR Comment 1.5 03/16/20 13:47: Body Fluid Source PERITON, Body Fluid Color RED, Body Fluid Appearance MOD BLDY, Body Fluid WBC 800, Body Fluid RBC [id number], Body Fluid Polynuclear WBCs 50, Body Fluid Mononuclear WBCs 10, Body Fluid Lymphocytes 40, Body Fluid Other Cells , Body Fluid Glucose 94, Body Fluid Total Protein 2.8, Body Fluid Lactate Dehydrogenase 586, Body Fluid Amylase 47, Body Fluid Creatinine 0.51 03/17/20 06:15: White Blood Count 12.0, Red Blood Count 2.58, Hemoglobin 6.6, Hematocrit 21, Mean Corpuscular Volume 82, Mean Corpuscular Hemoglobin 26, Mean Corpuscular Hemoglobin Concent 31, Red Cell Distribution Width 24.4, Platelet Count 498, Me an Platelet Volume 8.4, Neutrophils (%) (Auto) 81, Lymphocytes (%) (Auto) 8, Monocytes (%) (Auto) 9, Eosinophils (%) (Auto) 2, Basophils (%) (Auto) 0, Neutrophils # (Auto) 9.7, Lymphocytes # (Auto) 1.0, Monocytes # (Auto) 1.1, Eosinophils # (Auto) 0.2, Basophils # (Auto) 0.0, Sodium Level 136, Potassium Level 3.7, Chloride Level 108, Carbon Dioxide Level 19, Anion Gap 9, Blood Urea Nitrogen 8, Creatinine 0.56, Estimat Glomerular Filtration Rate > 60, BUN/Creatinine Ratio 14, Glucose Level 88, Calcium Level 7.1, Phosphorus Level 3.3, Magnesium Level 1.6 03/18/20 07:25: White Blood Count 12.9, Red Blood Count 3.55, Hemoglobin 9.6, Hematocrit 29, Mean Corpuscular Volume 83, Mean Corpuscular Hemoglobin 27, Mean Corpuscular Hemoglobin Concent 33, Red Cell Distribution Width 22.0, Platelet Count 506, Mean Platelet Volume 8.5, Neutrophils (%) (Auto) 81, Lymphocytes (%) (Auto) 9, Monocytes (%) (Auto) 9, Eosinophils (%) (Auto) 2, Basophils (%) (Auto) 0, Neutrophils # (Auto) 10.4, Lymphocytes # (Auto) 1.1, Monocytes # (Auto) 1.1, Eosinophils # (Auto) 0.2, Basophils # (Auto) 0.0, Sodium Level 134, Potassium Level 3.8, Chloride Level 109, Carbon Dioxide Level 16, Anion Gap 9, Blood Urea Nitrogen 8, Creatinine 0.60, Estimat Glomerular Filtration Rate > 60, BUN/Creatinine Ratio 13, Glucose Level 110, Calcium Level 7.3, Phosphorus Level 3.0, Magnesium Level 1.7 03/19/20 06:30: White Blood Count 10.9, Red Blood Count 3.62, Hemoglobin 9.8, Hematocrit 30, Mean Corpuscular Volume 83, Mean Corpuscular Hemoglobin 27, Mean Corpuscular Hemoglobin Concent 33, Red Cell Distribution Width 22.5, Platelet Count 430, Mean Platelet Volume 8.2, Neutrophils (%) (Auto) 81, Lymphocytes (%) (Auto) 8, Monocytes (%) (Auto) 8, Eosinophils (%) (Auto) 3, Basophils (%) (Auto) 0, Neutrophils # (Auto) 8.7, Lymphocytes # (Auto) 0.9, Monocytes # (Auto) 0.9, Eosinophils # (Auto) 0.3, Basophils # (Auto) 0.0, Sodium Level 137, Potassium Level 3.8, Chloride Level 112, Carbon Dioxide Level 15, Anion Gap 10, Blood Urea Nitrogen 8, Creatinine 0.62, Estimat Glomerular Filtration Rate > 60, BUN/Creatinine Ratio 13, Glucose Level 100, Calcium Level 7.5, Phosphorus Level 3.1, Magnesium Level 1.8, Neutrophils % (Manual) 85, Lymphocytes % (Manual) 4, Monocytes % (Manual) 8, Eosinophils % (Manual) 1, Band Neutrophils 2, Poikilocytosis SLIGHT, Anisocytosis SLIGHT, [place] Cells SLIGHT 03/20/20 06:35: White Blood Count 9.4, Red Blood Count 3.54, Hemoglobin 9.6, Hematocrit 30, Mean Corpuscular Volume 84, Mean Corpuscular Hemoglobin 27, Mean Corpuscular Hemoglobin Concent 32, Red Cell Distribution Width 22.4, Platelet Count 381, Mean Platelet Volume 8.2, Neutrophils (%) (Auto) 79, Lymphocytes (%) (Auto) 9, Monocytes (%) (Auto) 10, Eosinophils (%) (Auto) 2, Basophils (%) (Auto) 0, Neutrophils # (Auto) 7.5, Lymphocytes # (Auto) 0.8, Monocytes # (Auto) 0.9, Eosinophils # (Auto) 0.2, Basophils # (Auto) 0.0, Sodium Level 136, Potassium Level 3.8, Chloride Level 112, Carbon Dioxide Level 15, Anion Gap 9, Blood Urea Nitrogen 9, Creatinine 0.60, Estimat Glomerular Filtration Rate > 60, BUN/Creatinine Ratio 15, Glucose Level 91, Calcium Level 7.4, Phosphorus Level 3.1, Magnesium Level 1.9 03/21/20 06:30: White Blood Count 10.0, Red Blood Count 3.62, Hemoglobin 9.8, Hematocrit 31, Mean Corpuscular Volume 85, Mean Corpuscular Hemoglobin 27, Mean Corpuscular Hemoglobin Concent 32, Red Cell Distribution Width 22.4, Platelet Count 359, Mean Platelet Volume 8.9, Neutrophils (%) (Auto) 82, Lymphocytes (%) (Auto) 8, M onocytes (%) (Auto) 9, Eosinophils (%) (Auto) 1, Basophils (%) (Auto) 0, Neutrophils # (Auto) 8.2, Lymphocytes # (Auto) 0.8, Monocytes # (Auto) 0.9, Eosinophils # (Auto) 0.1, Basophils # (Auto) 0.0, Sodium Level 138, Potassium Level 4.0, Chloride Level 114, Carbon Dioxide Level 15, Anion Gap 9, Blood Urea Nitrogen 9, Creatinine 0.60, Estimat Glomerular Filtration Rate > 60, BUN/Cre atinine Ratio 15, Glucose Level 94, Calcium Level 7.7, Phosphorus Level 3.1, Magnesium Level 1.8 03/22/20 06:45: White Blood Count 8.8, Red Blood Count 3.62, Hemoglobin 10.0, Hematocrit 31, Mean Corpuscular Volume 84, Mean Corpuscular Hemoglobin 28, Mean Corpuscular Hemoglobin Concent 33, Red Cell Distribution Width 22.0, Platelet Count 353, Mean Platelet Volume 8.4, Neutrophils (%) (Auto) 80, Lymphocytes (%) (Auto) 9, Monocytes (%) (Auto) 10, Eosinophils (%) (Auto) 1, Basophils (%) (Auto) 0, Neutrophils # (Auto) 7.0, Lymphocytes # (Auto) 0.8, Monocytes # (Auto) 0.9, Eosinophils # (Auto) 0.1, Basophils # (Auto) 0.0, Sodium Level 135, Potassium Level 3.8, Chloride Level 112, Carbon Dioxide Level 15, Anion Gap 8, Blood Urea Nitrogen 7, Creatinine 0.61, Estimat Glomerular Filtration Rate > 60, BUN/Creatinine Ratio 11, Glucose Level 102, Calcium Level 7.8, Phosphorus Level 3.0, Magnesium Level 2.0 03/23/20 06:35: White Blood Count 10.4, Red Blood Count 3.87, Hemoglobin 10.6, Hematocrit 33, Mean Corpuscular Volume 85, Mean Corpuscular Hemoglobin 27, Mean Corpuscular Hemoglobin Concent 32, Red Cell Distribution Width 21.8, Platelet Count 386, Mean Platelet Volume 8.7, Neutrophils (%) (Auto) 81, Lymphocytes (%) (Auto) 7, Monocytes (%) (Auto) 9, Eosinophils (%) (Auto) 2, Basophils (%) (Auto) 0, Neutrophils # (Auto) 8.4, Lymphocytes # (Auto) 0.8, Monocytes # (Auto) 0.9, Eosinophils # (Auto) 0.2, Basophils # (Auto) 0.0, Sodium Level 136, Potassium Level 4.0, Chloride Level 112, Carbon Dioxide Level 16, Anion Gap 8, Blood Urea Nitrogen 9, Creatinine 0.66, Estimat Glomerular Filtration Rate > 60, BUN/Creati nine Ratio 14, Glucose Level 102, Calcium Level 8.2, Corrected Calcium 9.2, Total Bilirubin 0.8, Aspartate Amino Transf (AST/SGOT) 24, Alanine Aminotransferase (ALT/SGPT) 25, Alkaline Phosphatase 158, Total Protein 7.0, Albumin 2.7 03/25/20 04:45: White Blood Count 10.1, Red Blood Count 3.68, Hemoglobin 10.2, Hematocrit 31, Mean Corpuscular Volume 85, Mean Corpuscular Hemoglobin 28, Mean Corpuscular Hemoglobin Concent 33, Red Cell Distribution Width 21.1, Platelet Count 423, Mean Platelet Volume 8.5, Neutrophils (%) (Auto) 80, Lymphocytes (%) (Auto) 8, Monocytes (%) (Auto) 10, Eosinophils (%) (Auto) 1, Basophils (%) (Auto) 0, Neutrophils # (Auto) 8.1, Lymphocytes # (Auto) 0.9, Monocytes # (Auto) 1.1, Eosinophils # (Auto) 0.1, Basophils # (Auto) 0.0 03/27/20 05:45: White Blood Count 9.5, Red Blood Count 3.96, Hemoglobin 10.8, Hematocrit 34, Lila n Corpuscular Volume 85, Mean Corpuscular Hemoglobin 27, Mean Corpuscular Hemoglobin Concent 32, Red Cell Distribution Width 19.9, Platelet Count 469, Mean Platelet Volume 8.6, Neutrophils (%) (Auto) 77, Lymphocytes (%) (Auto) 9, Monocytes (%) (Auto) 11, Eosinophils (%) (Auto) 2, Basophils (%) (Auto) 0, Neutrophils # (Auto) 7.3, Lymphocytes # (Auto) 0.9, Monocytes # (Auto) 1.1, Eos inophils # (Auto) 0.2, Basophils # (Auto) 0.0, Sodium Level 130, Potassium Level 4.8, Chloride Level 102, Carbon Dioxide Level 14, Anion Gap 14, Blood Urea Nitrogen 35, Creatinine 1.81, Estimat Glomerular Filtration Rate 29, BUN/Creatinine Ratio 19, Glucose Level 101, Calcium Level 8.6, Corrected Calcium 9.4, Total Bilirubin 0.7, Aspartate Amino Transf (AST/SGOT) 26, Alanine Aminot ransferase (ALT/SGPT) 30, Alkaline Phosphatase 224, Total Protein 7.8, Albumin 3.0 03/28/20 06:50: Sodium Level 130, Potassium Level 4.5, Chloride Level 106, Carbon Dioxide Level 14, Anion Gap 10, Blood Urea Nitrogen 37, Creatinine 1.59, Estimat Glomerular Filtration Rate 34, BUN/Creatinine Ratio 23, Glucose Level 98, Calcium Level 8.1, Corrected Calcium 9.0, Total Bilirubin 0.5, Aspartate Amino Transf (AST/SGOT) 18, Alanine Aminotransferase (ALT/SGPT) 25, Alkaline Phosphatase 204, Total Protein 7.3, Albumin 2.9 03/30/20 06:05: White Blood Count 6.2, Red Blood Count 3.39, Hemoglobin 9.4, Hematocrit 29, Mean Corpuscular Volume 86, Mean Corpuscular Hemoglobin 28, Mean Corpuscular Hemoglobin Concent 32, Red Cell Distribution Width 19.7, Platelet Count 267, Mean Platelet Volume 8.5, Neutrophils (%) (Auto) 76, Lymphocytes (%) (Auto) 10, Monocytes (%) (Auto) 11, Eosinophils (%) (Auto) 3, Basophils (%) (Auto) 1, Neutrophils # (Auto) 4.7, Lymphocytes # (Auto) 0.6, Monocytes # (Auto) 0.7, Eosinophils # (Auto) 0.2, Basophils # (Auto) 0.0, Sodium Level 133, Potassium Level 4.2, Chloride Level 110, Carbon Dioxide Level 15, Anion Gap 8, Blood Urea Nitrogen 23, Creatinine 0.74, Estimat Glomerular Filtration Rate > 60, BUN/Creatinine Ratio 31, Glucose Level 104, Calcium Level 7.7, Corrected Calcium 8.9, Total Bilirubin 0.3, Aspartate Amino Transf (AST/SGOT) 17, Alanine Aminotransferase (ALT/SGPT) 19, Alkaline Phosphatase 160, Total Protein 6.3, Albumin 2.5 04/05/20 06:40: White Blood Count 6.6, Red Blood Count 3.58, Hemoglobin 9.8, Hematocrit 30, Mean Corpuscular Volume 84, Mean Corpuscular Hemoglobin 27, Mean Corpuscular Hemoglobin Concent 33, Red Cell Distribution Width 18.6, Platelet Count 189, Mean Platelet Volume 9.2, Neutrophils (%) (Auto) 76, Lymphocytes (%) (Auto) 12, Monocytes (%) (Auto) 9, Eosinophils (%) (Auto) 2, Basophils (%) (Auto) 0, Neutrophils # (Auto) 5.0, Lymphocytes # (Auto) 0.8, Monocytes # (Auto) 0.6, Eosinophils # (Auto) 0.2, Basophils # (Auto) 0.0, Sodium Level 136, Potassium Level 4.1, Chloride Level 108, Carbon Dioxide Level 19, Anion Gap 9, Blood Urea Nitrogen 17, Creatinine 0.77, Estimat Glomerular Filtration Rate > 60, BUN/Creatinine Ratio 22, Glucose Level 98, Calcium Level 8.0, Corrected Calcium 8.9, Total Bilirubin 0.3, Aspartate Amino Transf (AST/SGOT) 18, Alanine Aminotransferase (ALT/SGPT) 20, Alkaline Phosphatase 173, Total Protein 6.8, Albumin 2.9 Discharge Home Medications: Active Scripts Active Pantoprazole Sodium 40 Mg Tablet.dr 40 Mg PO DAILY Alprazolam 0.25 Mg Tablet 0.25 Mg PO Q8H PRN Oxycodone IR (Oxycodone HCl) 5 Mg Tablet 5 Mg PO Q4H PRN Aspirin EC (Aspirin) 81 Mg Tablet.dr 81 Mg PO DAILY Metoprolol Tartrate 50 Mg Tablet 50 Mg PO BID Clopidogrel (Clopidogrel Bisulfate) 75 Mg Tablet 75 Mg PO DAILY Instructions to patient/family Please see electronic discharge instructions given to patient. Diagnosis/Problems Diagnosis/Problems (1) S/P colectomy (2) Ileostomy in place (3) Hirsutism (4) Tachycardia (5) Anasarca (6) Anemia (7) Debility (8) Sigmoid volvulus (9) Leukocytosis (10) Acute kidney injury (11) Hyponatremia (12) Coronary artery disease (13) Abdominal pain Status: Acute (14) Elevated troponin (15) S/P cardiac cath Clinical Quality Measures DVT/VTE Risk/Contraindication: Risk Factor Score Per Nursin RFS Level Per Nursing on Admit: 4+=Very High SESAR BEEBE DO April 06, 2020 09:27
--- NOTE | 2020-04-06 10:36 | Physical Therapy Daily Note ---
PT Daily Note-Current Subjective Patient in bathroom pre tx, agrees to PT, has no complaints of pain at rest. Appearance Patient in room post tx, she is independent in her room. Mental Status Patient Orientation: Person, Place, Situation, Normal For Age Transfers SCALE: Activities may be completed with or without assistive devices. 4-Hdhanjxotb-edexose completes the activity by him/herself with no assistance from a helper. 5-Set-up or Clean-up Assistance-helper sets up or cleans up; patient completes activity. Colton assists only prior to or following the activity. 4-Supervision or Touching Assistance-helper provides verbal cues and/or touching/steadying and/or contact guard assistance as patient completes activity. Assistance may be provided throughout the activity or intermittently. 3-Partial/Moderate Assistance-helper does LESS THAN HALF the effort. Colton lifts, holds or supports trunk or limbs, but provides less than half the effort. 2-Substantial/Maximal Assistance-helper does MORE THAN HALF the effort. Colton lifts or holds trunk or limbs and provides more than half the effort. 1-Wyrrhbzfa-ivuljk does ALL the effort. Patient does none of the effort to complete the activity. Or, the assistance of 2 or more helpers is required for the patient to complete the activity. If activity was not attempted, code reason: 7-Patient Refused. 9-Not Applicable-not attempted and the patient did not perform the activity before the current illness, exacerbation or injury. 10-Not Attempted due to Environmental Limitations-(lack of equipment, weather restraints, etc.). 88-Not Attempted due to Medical Conditions or Safety Concerns. Roll Left & Right (QC): 6 Sit to Lying (QC): 6 Lying to Sitting/Side of Bed(Q: 6 Sit to Stand (QC): 6 Chair/Duk-gz-Uweea Xfer(QC): 6 Toilet Transfer (QC): 6 Car Transfer (QC): 6 Patient is independent with bed mobility and transfers and car transfer. Patient displays safe positioning during transfers. Weight Bearing Right Lower Extremity: Right Full Weight Bearing Left Lower Extremity: Left Full Weight Bearing Gait Training Distance: 400' Walk 10 feet (QC): 6 Walk 50 ft with 2 Turns(QC): 6 Walk 150 ft (QC): 6 Walking 10ft/uneven surface-QC: 6 Gait Assistive Device: FWW Patient can ambulate 400' with a rolling walker with independence (including 50' with at least 2 turns of 90 degrees and 10' over an uneven surface). Patient ambulates slow but steady. Wheelchair Training Does the Pt Use a Wheelchair?: No Stair Training Stair Training: Handrails/: 2 handrails #of Steps: 12 1 Step (curb) (QC): 4 4 Steps (QC): 4 12 Steps (QC): 4 Stairs: Pattern: Step to Patient can go up and down 12 steps using 2 handrails with SBA. Patient is fairly fatigued after doing 12 steps. Balance Picking up an Object (QC): 6 Treatments bed mobility and transfers, ambulation, stair training, car transfer Assessment Current Status: Fair Progress good overall progress and is independent with all mobility except for stairs PT Short Term Goals Short Term Goals Time Frame: Mar 20, 2020 Roll Left & Right: 3 Sit to lyin Lying to sitting on side of be: 3 Sit to stand: 4 Chair/nwd-un-daqyh transfer: 4 Walk 10 feet: 4 Walk 50 feet with two turns: 4 Walk 150 feet: 4 PT Police Detention Attendant Goals Police Detention Attendant Goals PT Police Detention Attendant Goals Time Frame: April 03, 2020 Roll Left & Right (QC): 6 Sit to Lying (QC): 6 Lying-Sitting on Side/Bed(QC): 6 Sit to Stand (QC): 6 Chair/Dib-gz-Rhxrp Xfer(QC): 6 Toilet Transfer (QC): 6 Car Transfer (QC): 6 Does the Patient Walk: Yes Walk 10 feet (QC): 6 Walk 50ft with 2 Turns (QC): 6 Walk 150 ft (QC): 6 Walking 10ft on Uneven Surface: 6 1 Step (curb) (QC): 4 4 Steps (QC): 4 12 Steps (QC): 88 Picking up an Object (QC): 88 Wheel 50 feet with 2 turns (QC: 88 Wheel 150 feet: 88 PT Plan Problem List Problem List: Activity Tolerance, Functional Strength, Safety, Balance, Gait, Transfer Treatment/Plan Treatment Plan: Discontinue PT (patient discharging today) Treatment Plan: Bed Mobility, Education, Functional Activity Fern, Functional Strength, Group Therapy, Gait, Safety, Therapeutic Exercise, Transfers Treatment Duration: April 03, 2020 Frequency: At least 5 of 7 days/Wk (IRF) Estimated Hrs Per Day: 1.5 hours per day Patient and/or Family Agrees t: Yes Safety Risks/Education Patient Education: Gait Training, Transfer Techniques, Steps, Correct Positioning, Safety Issues Teaching Recipient: Patient Teaching Methods: Demonstration, Discussion Response to Teaching: Verbalize Understanding Discharge Recommendations Plan DC Time/GCodes Time In: 1015 Time Out: 1030 Total Billed Treatment Time: 15 Total Billed Treatment 1 visit FA 15' KEI CRUZ PT April 06, 2020 10:35
--- NOTE | 2020-04-06 10:41 | Therapy Team Discharge Summary ---
Therapy Discharge Summary Discharge Recommendations Date of Discharge Physical Therapy Patient came to rehab following colectomy for intestinal obstruction. Upon evaluation patient performed bed mobility with mod assist, supine to sit with max assist, sit to supine with mod assist, sit <-> stand with CGA, transfers with CGA, car transfer mod assist, ambulated 150' with a rolling walker with CGA (including 50' with at least 2 turns of 90 degrees and 10' over an uneven surface), no stairs. Patient has been performing bed mobility and transfer tr shanae, balance and endurance training, functional strengthening, stair training, gait training, and education. Patient has made good progress and has met all of her usp goals. Now, patient is independent with bed mobility and transfers and car transfer, ambulates 400' with a rolling walker with independence (including 50' with at least 2 turns of 90 degrees and 10' over an uneven surface), can go up and down 12 steps using 2 handrails with SBA, and can chicken picker an object from the floor with independence. Patient is discharging from this facility today and will be discharged from PT at this time. Occupational Therapy Decreased Activ Tolerance, Decreased UE Strength PT Implementation Manager Goals Implementation Manager Goals PT Implementation Manager Goals Time Frame: April 03, 2020 Roll Left to Right (QC): 6 Sit to Lying (QC): 6 Lying-Sitting on Side/Bed(QC): 6 Sit to Stand (QC): 6 Chair/Fee-we-Qhhcd Xfer(QC): 6 Car Transfer (QC): 6 Does the Patient Walk: Yes Walk 10 feet (QC): 6 Walk 10ft-Uneven Surface(QC): 6 Walk 50ft with 2 Turns (QC): 6 Walk 150 ft (QC): 6 Wheel 50 feet with 2 turns (QC: 88 1 Step (curb) (QC): 4 4 Steps (QC): 4 12 Steps (QC): 88 Picking up an Object (QC): 88 OT Fci Goals Fci Goals Time Frame: April 08, 2020 Eating (QC): 6 (met) Oral Hygiene (QC): 6 (met) Shower/Bathe Self (QC): 6 (not met, set up) Upper Body Dressing (QC): 6 (met) Lower Body Dressing (QC): 6 (met) On/Off Footwear (QC): 6 (met) Toileting Hygiene (QC): 6 (met) Toilet/Commode Transfer (QC): 6 Additional Goals: 1-Demonstrate ADL Tasks, 2-Verbalize Understanding, 3- ImproveStrength/Fern 1=Demonstrate adherence to instructed precautions during ADL tasks. 2=Patient will verbalize/demonstrate understanding of assistive devices/modifications for ADL. 3=Patient will improve strength/tolerance for activity to enable patient to perform ADL's. KEI CRUZ PT April 06, 2020 10:41
--- NOTE | 2020-04-06 13:25 | Progress Note - Cardiology ---
Cardiology SOAP Progress Note Subjective: No cp or palp or syncope Weakness better No focal weakness Tires easily, but better than before No n/v/d Objective: I&O/Vital Signs 04/06/20 04/06/20 04/06/20 06:25 08:05 09:00 Temp 35.8 Pulse 76 112 Resp 16 B/P (MAP) 131/82 (98) 156/99 (118) Pulse Ox 100 O2 Delivery Room Air Room Air 04/06/20 00:00 Intake Total 1550 ml Balance 1550 ml Constitutional: AAO x 3 Respiratory: chest is bilaterally symmetric, lungs clear to auscultation Cardiovascular: regular rate-rhythm, S1 and S2, systolic murmur Gastrointestional: soft, audible bowel sounds, other (colostomy) Extremities: no lower extremity edema bilateral Neurologic/Psychiatric: alert, grossly intact (moves extremities) Skin: No rash on exposed areas, No ulcerations on exposed areas Results/Procedures: Labs Microbiology 03/16/20 Gram Stain - Final, Complete 03/16/20 Anaerobic Culture - Final, Complete No anaerobes isolated 03/16/20 Surgical Culture - Final, Complete No growth 03/14/20 Blood Culture - Final, Complete No growth Laboratory Tests 04/05/20 06:40 A/P: Assessment: S/p colectomy for intestinal obstruction Marked post-op anemia, managed by the Surgical and Hospitalist Services - received 2 units on 03-09-2020 Type 2 TN, perioperative, in February 2020 at time of presentation with intestinal obstruction and probable septic shock CAD, h/o cor stenting at [facility] in Oct 2019. Last card cath on 03/05/20: patent stents in the mid left circumflex and the mid right coronary arteries. There is moderate diffuse disease of all coronary arteries. There is moderately severe diffuse disease of the distal left anterior descending. A small caliber obtuse marginal has 70% to 80% ostial stenosis. Normal left ventricular end- diastolic pressure. Echo of 03/05/20: LVEF 60-65%, mild to mod TR, RVSP 35-40 mmHg, mild dilatation of LA Post-op hypotension and EMIGDIO 2, resolved Plan: * Continue DAPT * Outpt cardiac f/u recommended * CV issues discussed and questions answered VI KO MD FACP FAC CCDS April 06, 2020 13:25
--- NOTE | 2020-04-06 13:59 | NUR ---
CM/SS DISCHARGE Patient discharged today as planned to the home of her friend, Carola Perez (Kay) in [place]. HHC: Finalized with [facility], [facility], for RN, PT, OT. Patient remains uninsured and is under jasbir application umbrella for services at this time. DME: Donna indicates she has a vast supply of DME, particularly a FWW if patient continues to use one. Patient very appreciative of her stay here and her overall process and maximized performance. Unit RN aware of discharge and has been in coordination with caregiver regarding picker tender arrangements. Discharge planning complete unless situation changes to warrant alternate intervention. Addendum: 04/06/20 at 1507 by LINDSEY RICHARDS Faxed clinical update to PCP: MARY Mclaughlin APRN FX: [phone] PH: [phone] Updated staff by phone she as discharged and that [facility] would be calling for future [facility] orders.
[2020-04-06 15:06] VITALS: BP 156/99
--- NOTE | 2020-04-08 10:18 | Therapy Team Discharge Summary ---
Therapy Discharge Summary Discharge Recommendations Date of Discharge April 06, 2020 at 14:15 Occupational Therapy Pt admitted to ARU on 03/13/2020 s/p ischemic bowel resection. Her PLOF was in dependent with all ADLs and functional mobility without AE/AD. At admission, pt was indpendent for feeding and oral hygiene, min A showering, set up upper body dressing, min A lower body dressing, mod A footwear, SBA toileting (urination only), and SBA toilet transfer. OT tx with focus on increasing independence and safety with ADLs and functional mobility, increasing BUE strength, increase fine motor strength and coordination. At discharge, pt was indepdendent with all ADLs except for showering (set up to cover dressing). Pt was also able to empty ostomy bag independently. Pt met all goals except showering goal due to set up assist required. She discharged from facility, thus d/c from OT services at this time. Decreased Activ Tolerance, Decreased UE Strength PT Prison Goals Prison Goals PT [facility] Goals Time Frame: April 03, 2020 Roll Left to Right (QC): 6 Sit to Lying (QC): 6 Lying-Sitting on Side/Bed(QC): 6 Sit to Stand (QC): 6 Chair/Dit-du-Qaekr Xfer(QC): 6 Car Transfer (QC): 6 Does the Patient Walk: Yes Walk 10 feet (QC): 6 Walk 10ft-Uneven Surface(QC): 6 Walk 50ft with 2 Turns (QC): 6 Walk 150 ft (QC): 6 Wheel 50 feet with 2 turns (QC: 88 1 Step (curb) (QC): 4 4 Steps (QC): 4 12 Steps (QC): 88 Picking up an Object (QC): 88 OT [facility] Goals Prison Goals Time Frame: April 08, 2020 Eating (QC): 6 (met) Oral Hygiene (QC): 6 (met) Shower/Bathe Self (QC): 6 (not met, set up) Upper Body Dressing (QC): 6 (met) Lower Body Dressing (QC): 6 (met) On/Off Footwear (QC): 6 (met) Toileting Hygiene (QC): 6 (met) Toilet/Commode Transfer (QC): 6 (met) Additional Goals: 1-Demonstrate ADL Tasks, 2-Verbalize Understanding, 3-ImproveStrength/Fern 1=Demonstrate adherence to instructed precautions during ADL tasks. 2=Patient will verbalize/demonstrate understanding of assistive devices/modifications for ADL. 3=Patient will improve strength/tolerance for activity to enable patient to perform ADL's. SHAVON BARTLETT OT April 08, 2020 10:17
== END 2020-04-06 14:15 | disposition home health service (06) | DRG 947 ==
PROVIDERS: ADMIT Internal Medicine; ATTEND Internal Medicine
DX: R53.81 Other malaise (principal); R53.1 Weakness; Z48.815 Encounter for surgical aftercare following surgery on the digestive system; Z93.2 Ileostomy status; E87.70 Fluid overload, unspecified; D64.9 Anemia, unspecified; I21.A1 Myocardial infarction type 2; E87.1 Hypo-osmolality and hyponatremia; N17.9 Acute kidney failure, unspecified; R60.1 Generalized edema; I25.10 Atherosclerotic heart disease of native coronary artery without angina pectoris; R50.9 Fever, unspecified; K13.79 Other lesions of oral mucosa; I10 Essential (primary) hypertension; E78.00 Pure hypercholesterolemia, unspecified; F41.9 Anxiety disorder, unspecified; F32.9 Major depressive disorder, single episode, unspecified; L68.0 Hirsutism; Z95.5 Presence of coronary angioplasty implant and graft; I07.1 Rheumatic tricuspid insufficiency; R11.10 Vomiting, unspecified; E86.9 Volume depletion, unspecified
CPT/HCPCS: 36415; 36569; 49083; 71045; 74177; 76937; 80048; 80053; 80202; 81000; 82150; 82570; 82945; 83540; 83605; 83615; 83735; 84100; 84145; 84157; 85007; 85025; 85027; 85610; 86850; 86900; 86901; 86920; 87040; 87070; 87075; 87205; 89051; 94640; 94760

== ENCOUNTER → 2020-05-26 | Outpatient (CLI) | payer OTHER ==
[~2020-05-26] MED LIST changes: +ALPR0.254 PO; +ASPI-983 PO; +CLOP75TA28 PO; +METO50TA15 PO; +OXYC5TAB96 PO; +PANT40TA3 PO
[2020-05-26 15:24] LABS: HEMATOCRIT 40 % (35-52); HEMOGLOBIN 12.9 G/DL (11.5-16.0); MEAN CORPUSCULAR HEMOGLOBIN 27 PG (25-34); MEAN CORPUSCULAR HGB CONC 32 G/DL (32-36); MEAN CORPUSCULAR VOLUME 85 FL (80-99); PLATELET COUNT 341 10^3/uL (130-400); WHITE BLOOD COUNT 9.1 10^3/uL (4.3-11.0)
[2020-05-26 15:25] LABS: BASOPHILS # (AUTO) 0.1 10^3/uL (0.0-0.1); BASOPHILS % (AUTO) 1 % (0-10); EOSINOPHILS # (AUTO) 0.2 10^3/uL (0.0-0.3); EOSINOPHILS % (AUTO) 2 % (0-10); LYMPHOCYTES # (AUTO) 1.1 X 10^3 (1.0-4.0); LYMPHOCYTES % (AUTO) 12 % (12-44); MEAN PLATELET VOLUME 9.1 FL (7.4-10.4); MONOCYTES # (AUTO) 0.6 X 10^3 (0.0-1.0); MONOCYTES % (AUTO) 7 % (0-12); NEUTROPHILS % (AUTO) 78 % (42-75)
[2020-05-26 16:04] LABS: CHLORIDE 103 MMOL/L (98-107); POTASSIUM 4.5 MMOL/L (3.6-5.0); SODIUM 138 MMOL/L (135-145)
[2020-05-26 16:05] LABS: ALANINE AMINOTRANSFERASE 14 U/L (0-55); ALBUMIN 3.9 GM/DL (3.2-4.5); ALKALINE PHOSPHATASE 124 U/L (40-136); BILIRUBIN,TOTAL 0.5 MG/DL (0.1-1.0); BUN/CREATININE RATIO 21; CALCIUM 9.6 MG/DL (8.5-10.1); CARBON DIOXIDE 22 MMOL/L (21-32); CREATININE SERUM 0.92 MG/DL (0.60-1.30); GFR ESTIMATED > 60; GLUCOSE 99 MG/DL (70-105); TOTAL PROTEIN 8.1 GM/DL (6.4-8.2)
== END ==
LOC: LAB FS 14:21
PROVIDERS: ATTEND Nurse Practitioner Family
DX: I10 Essential (primary) hypertension (principal)
CPT/HCPCS: 36415; 80053; 84443; 85025

== ENCOUNTER 2020-06-17 05:41 | Outpatient (RCR) | payer OTHER ==
[~2020-06-17] VITALS: Ht 160 cm; Wt 66.8 kg
[2020-06-17] MEDS ORDERED: PANT40TA3 PO (13:44)
[2020-06-17] MEDS ORDERED: ALPR0.254 PO (13:44)
[2020-06-17] MEDS ORDERED: ASPI-983 PO (13:44)
[2020-06-17] MEDS ORDERED: LISI-552 PO (13:44)
[2020-06-17] MEDS ORDERED: OXYC5CAP18 PO (13:44)
[2020-06-17] MEDS ORDERED: CLOP75TA28 PO (13:44)
[2020-06-17] MEDS ORDERED: METO100T12 PO (13:44)
== END 2020-06-17 13:56 | disposition home or self-care (01) ==
LOC: PREOP 05:41
PROVIDERS: ATTEND Surgery
DX: Z01.818 Encounter for other preprocedural examination (principal)

== ENCOUNTER → 2020-06-19 | Outpatient (CLI) | payer OTHER ==
[~2020-06-19] MED LIST changes: +LISI-552 PO; +METO100T12 PO; +OXYC5CAP18 PO
== END ==
LOC: LAB FS 10:46
PROVIDERS: ATTEND Surgery
DX: Z01.818 Encounter for other preprocedural examination (principal); Z93.2 Ileostomy status; Z20.828 Contact with and (suspected) exposure to other viral communicable diseases
CPT/HCPCS: 87635

== ENCOUNTER 2020-07-03 21:39 | Inpatient (IN) | payer OTHER ==
[~2020-07-03] VITALS: Ht 160 cm; Wt 73.1 kg
[~2020-07-03 21:39] MED LIST changes: +NITR50CA PO
--- OUTSIDE RECORDS SUMMARY | 2020-07-03 21:46 | XMS REPORT | Continuity of Care Document ---
Author Organization Unknown Address Unknown Phone Unavailable Allergies Active Description Code Type Severity Reaction Onset Reported/Identified Relationship to Patient Clinical Status Yes No Known Drug Allergies [id number] Drug Allergy Unknown N/A 11/11/2019 Medications There is no data. Problems Date Dx Coded Attending Type Code Diagnosis Diagnosed By 10/26/1355 SHEILA DE OLIVEIRA DO B Ot Z01.8 18 ENCOUNTER FOR OTHER PREPROCEDURAL EXAMIN 11/11/2019 MIHAELA BELL MD Ot I10 ESSENTIAL (PRIMARY) HYPERTENSION 11/11/2019 MIHAELA BELL MD Ot I16. 1 HYPERTENSIVE EMERGENCY 11/11/2019 MIHAELA BELL MD, Ot I21. 4 NON-ST ELEVATION (NSTEMI) MYOCARDIAL INF 11/11/2019 MIHAELA BELL MD Ot R00. 0 TACHYCARDIA, UNSPECIFIED 03/04/2020 ROVENSTINE DO, ANNIE L Ot K56.609 UNSP INTESTNL OBST, UNSP TO PARTIAL V 03/04/2020 ROVENSTINE DO, ANNIE L Ot R10.9 UNSPECIFIED ABDOMINAL PAIN 03/06/2020 ROVENSTINE DO, ANNIE L Ot K56.609 UNSP INTESTNL OBST, UNSP TO PARTIAL V 03/06/2020 ROVENSTINE DO, ANNIE L Ot R10.9 UNSPECIFIED ABDOMINAL PAIN 03/08/2020 [place] DO, SHEILA B Ot E78.0 0 PURE HYPERCHOLESTEROLEMIA, UNSPECIFIED 03/08/2020 [facility]MAN DO, SHEILA B Ot E87.1 HYPO-OSMOLALITY AND HYPONATREMIA 03/08/2020 [facility] DO, SHEILA B Ot I11.0 HYPERTENSIVE HEART DISEASE WITH HEART FA 03/08/2020 BERTINMAN DO, SHEILA B Ot I25.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 03/08/2020 [facility] DO, SHEILA B Ot I25.2 OLD MYOCARDIAL INFARCTION 03/08/2020 [facility] DO, SHEILA B Ot I50.9 HEART FAILURE, UNSPECIFIED 03/08/2020 [facility] DO, SHEILA B Ot I95.8 1 POSTPROCEDURAL HYPOTENSION 03/08/2020 [facility] DO, SHEILA B Ot J96.0 0 ACUTE RESPIRATORY FAILURE, UNSP W HYPOXI 03/08/2020 [facility] DO, SHEILA B Ot K42.0 UMBILICAL HERNIA WITH OBSTRUCTION, WITHO 03/08/2020 [facility] DO, SHEILA B Ot K56.2 VOLVULUS 03/08/2020 [facility] DO, SHEILA B Ot K59.0 0 CONSTIPATION, UNSPECIFIED 03/08/2020 [facility] DO, SHEILA B Ot K65.1 PERITONEAL ABSCESS 03/08/2020 [facility] DO, SHEILA B Ot N17.9 ACUTE KIDNEY FAILURE, UNSPECIFIED 03/08/2020 [facility], SHEILA B Ot N39.0 URINARY TRACT INFECTION, SITE NOT SPECIF 03/08/2020 [facility], SHEILA B Ot R79.8 9 OTHER SPECIFIED ABNORMAL FINDINGS OF BLO 03/08/2020 [facility], SHEILA B Ot Z95.5 PRESENCE OF CORONARY ANGIOPLASTY IMPLANT 03/12/2020 [facility], SHEILA B Ot E78.0 0 PURE HYPERCHOLESTEROLEMIA, UNSPECIFIED 03/12/2020 [facility], SHEILA B Ot E87.1 HYPO-OSMOLALITY AND HYPONATREMIA 03/12/2020 [facility], SHEILA B Ot I11.0 HYPERTENSIVE HEART DISEASE WITH HEART FA 03/12/2020 [facility], SHEILA B Ot I25.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 03/12/2020 [facility], SHEILA B Ot I25.2 OLD MYOCARDIAL INFARCTION 03/12/2020 [facility], SHEILA B Ot I50.9 HEART FAILURE, UNSPECIFIED 03/12/2020 [facility], SHEILA B Ot I95.8 1 POSTPROCEDURAL HYPOTENSION 03/12/2020 [facility], SHEILA B Ot J96.0 0 ACUTE RESPIRATORY FAILURE, UNSP W HYPOXI 03/12/2020 [facility], SHEILA B Ot K42.0 UMBILICAL HERNIA WITH OBSTRUCTION, WITHO 03/12/2020 [facility] DO, SHEILA B Ot K56.2 VOLVULUS 03/12/2020 [facility] DO, SHEILA B Ot K59.0 0 CONSTIPATION, UNSPECIFIED 03/12/2020 [facility] DO, SHEILA B Ot K65.1 PERITONEAL ABSCESS 03/12/2020 [facility] DO, SHEILA B Ot N17.9 ACUTE KIDNEY FAILURE, UNSPECIFIED 03/12/2020 [facility] DO, SHEILA B Ot N39.0 URINARY TRACT INFECTION, SITE NOT SPECIF 03/12/2020 [facility] DO, SHEILA B Ot R79.8 9 OTHER SPECIFIED ABNORMAL FINDINGS OF BLO 03/12/2020 [facility] DO, SHEILA B Ot Z95.5 PRESENCE OF CORONARY ANGIOPLASTY IMPLANT 03/12/2020 [facility] DO, SHEILA B Ot E78.0 0 PURE HYPERCHOLESTEROLEMIA, UNSPECIFIED 03/12/2020 [facility] DO, SHEILA B Ot E87.1 HYPO-OSMOLALITY AND HYPONATREMIA 03/12/2020 [facility] DO, SHEILA B Ot I11.0 HYPERTENSIVE HEART DISEASE WITH HEART FA 03/12/2020 [facility], SHEILA B Ot I25.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 03/12/2020 [facility], SHEILA B Ot I25.2 OLD MYOCARDIAL INFARCTION 03/12/2020 [facility], SHEILA B Ot I50.9 HEART FAILURE, UNSPECIFIED 03/12/2020 [facility] DO, SHEILA B Ot I95.8 1 POSTPROCEDURAL HYPOTENSION 03/12/2020 [facility] DO, SHEILA B Ot J96.0 0 ACUTE RESPIRATORY FAILURE, UNSP W HYPOXI 03/12/2020 [facility], SHEILA B Ot K42.0 UMBILICAL HERNIA WITH OBSTRUCTION, WITHO 03/12/2020 [facility] DO, SHEILA B Ot K56.2 VOLVULUS 03/12/2020 [facility], SHEILA B Ot K59.0 0 CONSTIPATION, UNSPECIFIED 03/12/2020 [facility] DO, SHEILA B Ot K65.1 PERITONEAL ABSCESS 03/12/2020 [facility] DO, SHEILA B Ot N17.9 ACUTE KIDNEY FAILURE, UNSPECIFIED 03/12/2020 [facility] DO, SHEILA B Ot N39.0 URINARY TRACT INFECTION, SITE NOT SPECIF 03/12/2020 [facility] DO, SHEILA B Ot R79.8 9 OTHER SPECIFIED ABNORMAL FINDINGS OF BLO 03/12/2020 [facility] DO, SHEILA B Ot Z95.5 PRESENCE OF CORONARY ANGIOPLASTY IMPLANT 03/13/2020 [facility] DO, SHEILA B Ot E78.0 0 PURE HYPERCHOLESTEROLEMIA, UNSPECIFIED 03/13/2020 [facility] DO, SHEILA B Ot E87.1 HYPO-OSMOLALITY AND HYPONATREMIA 03/13/2020 [facility] DO, SHEILA B Ot I11.0 HYPERTENSIVE HEART DISEASE WITH HEART FA 03/13/2020 [facility], SHEILA B Ot I25.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 03/13/2020 [facility], SHEILA B Ot I25.2 OLD MYOCARDIAL INFARCTION 03/13/2020 [facility], SHEILA B Ot I50.9 HEART FAILURE, UNSPECIFIED 03/13/2020 [facility], SHEILA B Ot I95.8 1 POSTPROCEDURAL HYPOTENSION 03/13/2020 [facility], SHEILA B Ot J96.0 0 ACUTE RESPIRATORY FAILURE, UNSP W HYPOXI 03/13/2020 [facility], SHEILA B Ot K42.0 UMBILICAL HERNIA WITH OBSTRUCTION, WITHO 03/13/2020 [facility], SHEILA B Ot K56.2 VOLVULUS 03/13/2020 [facility], SHEILA B Ot K59.0 0 CONSTIPATION, UNSPECIFIED 03/13/2020 [facility], SHEILA B Ot K65.1 PERITONEAL ABSCESS 03/13/2020 [facility], SHEILA B Ot N17.9 ACUTE KIDNEY FAILURE, UNSPECIFIED 03/13/2020 [facility], SHEILA B Ot N39.0 URINARY TRACT INFECTION, SITE NOT SPECIF 03/13/2020 [facility], SHEILA B Ot R79.8 9 OTHER SPECIFIED ABNORMAL FINDINGS OF BLO 03/13/[facility] SHEILA B Ot Z95.5 PRESENCE OF CORONARY ANGIOPLASTY IMPLANT 03/13/2020 [facility], SHEILA B Ot D64.9 ANEMIA, UNSPECIFIED 03/13/2020 [facility], SHEILA B Ot E78.0 0 PURE HYPERCHOLESTEROLEMIA, UNSPECIFIED 03/13/2020 [facility], SHEILA B Ot E87.1 HYPO-OSMOLALITY AND HYPONATREMIA 03/13/2020 [facility], SHEILA B Ot E87.6 HYPOKALEMIA 03/13/2020 [facility], SHEILA B Ot I07.1 RHEUMATIC TRICUSPID INSUFFICIENCY 03/13/2020 [facility], SHEILA B Ot I11.0 HYPERTENSIVE HEART DISEASE WITH HEART FA 03/13/2020 [facility] DO, SHEILA B Ot I21.A 1 MYOCARDIAL INFARCTION TYPE 2 03/13/2020 [facility], SHEILA B Ot I25.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 03/13/2020 [facility] DO, SHEILA B Ot I25.2 OLD MYOCARDIAL INFARCTION 03/13/2020 [facility] DO, SHEILA B Ot I50.9 HEART FAILURE, UNSPECIFIED 03/13/2020 [facility] SHEILA B Ot I95.8 1 POSTPROCEDURAL HYPOTENSION 03/13/2020 [facility], SHEILA B Ot J96.0 0 ACUTE RESPIRATORY FAILURE, UNSP W HYPOXI 03/13/2020 [facility] SHEILA B Ot J98.1 1 ATELECTASIS 03/13/2020 [facility], SHEILA B Ot K42.0 UMBILICAL HERNIA WITH OBSTRUCTION, WITHO 03/13/2020 [facility], SHEILA B Ot K56.2 VOLVULUS 03/13/2020 [facility], SHEILA B Ot K59.0 0 CONSTIPATION, UNSPECIFIED 03/13/2020 [facility], SHEILA B Ot K65.1 PERITONEAL ABSCESS 03/13/2020 [facility], SHEILA B Ot N17.9 ACUTE KIDNEY FAILURE, UNSPECIFIED 03/13/2020 [facility], SHEILA B Ot N39.0 URINARY TRACT INFECTION, SITE NOT SPECIF 03/13/2020 [facility] SHEILA B Ot R65.2 1 SEVERE SEPSIS WITH SEPTIC SHOCK 03/13/2020 [facility], SHEILA B Ot R79.8 9 OTHER SPECIFIED ABNORMAL FINDINGS OF BLO 03/13/2020 [facility] , SHEILA B Ot Z95.5 PRESENCE OF CORONARY ANGIOPLASTY IMPLANT 03/19/2020 [facility] DO, SESAR Ot D64.9 ANEMIA, UNSPECIFIED 03/19/2020 [facility] DO, SESAR Ot E78.00 PURE HYPERCHOLESTEROLEMIA, UNSPECIFIED 03/19/2020 [facility] DO, SESAR Ot E87.70 FLUID OVERLOAD, UNSPECIFIED 03/19/2020 [facility] DO, SESAR Ot F32.9 MAJOR DEPRESSIVE DISORDER, SINGLE EPISOD 03/19/2020 [facility] DO, SESAR Ot F41.9 ANXIETY DISORDER, UNSPECIFIED 03/19/2020 [facility] DO, SESAR Ot I10 ESSENTIAL (PRIMARY) HYPERTENSION 03/19/2020 [place] DO, SESAR Ot I25.10 ATHSCL HEART DISEASE OF [place] CORONARY 03/19/2020 [facility] DO, SESAR Ot K13.79 OTHER LESIONS OF ORAL MUCOSA 03/19/2020 [facility] DO, SESAR Ot L68.0 HIRSUTISM 03/19/2020 [facility] DO, SESAR Ot R50.9 FEVER, UNSPECIFIED 03/19/2020 [facility] DO, SESAR Ot R53.1 WEAKNESS 03/19/2020 [facility] DO, SESAR Ot R53.81 OTHER MALAISE 03/19/2020 [facility] DO, SESAR Ot R60.1 GENERALIZED EDEMA 03/19/2020 [facility] DO, SESAR Ot Z48.81 5 ENCNTR FOR SURGICAL AFTCR FOLLOWING SURG 03/19/2020 [facility] DO, SESAR Ot Z93.2 ILEOSTOMY STATUS 03/19/2020 [facility] DO, SESAR Ot Z95.5 PRESENCE OF CORONARY ANGIOPLASTY IMPLANT 03/20/2020 [facility] DO, SESAR Ot D64.9 ANEMIA, UNSPECIFIED 03/20/2020 [facility] DO, SESAR Ot E78.00 PURE HYPERCHOLESTEROLEMIA, UNSPECIFIED 03/20/2020 [facility] DO, SESAR Ot E87.70 FLUID OVERLOAD, UNSPECIFIED 03/20/2020 [facility] DO, SESAR Ot F32.9 MAJOR DEPRESSIVE DISORDER, SINGLE EPISOD 03/20/2020 [facility] DO, SESAR Ot F41.9 ANXIETY DISORDER, UNSPECIFIED 03/20/2020 [facility] DO, SESAR Ot I10 ESSENTIAL (PRIMARY) HYPERTENSION 03/20/2020 [facility] DO, SESAR Ot I25.10 ATHSCL HEART DISEASE OF [place] CORONARY 03/20/2020 [facility] DO, SESAR Ot K13.79 OTHER LESIONS OF ORAL MUCOSA 03/20/2020 [facility] DO, SESAR Ot L68.0 HIRSUTISM 03/20/2020 [facility] DO, SESAR Ot R50.9 FEVER, UNSPECIFIED 03/20/2020 [facility] DO, SESAR Ot R53.1 WEAKNESS 03/20/2020 [facility] DO, SESAR Ot R53.81 OTHER MALAISE 03/20/2020 [facility] DO, SESAR Ot R60.1 GENERALIZED EDEMA 03/20/2020 [facility] DO, SESAR Ot Z48.81 5 ENCNTR FOR SURGICAL AFTCR FOLLOWING SURG 03/20/2020 [facility] DO, SESAR Ot Z93.2 ILEOSTOMY STATUS 03/20/2020 [facility] DO, SESAR Ot Z95.5 PRESENCE OF CORONARY ANGIOPLASTY IMPLANT 03/21/2020 [facility] DO, SESAR Ot D64.9 ANEMIA, UNSPECIFIED 03/21/2020 [facility] DO, SESAR Ot E78.00 PURE HYPERCHOLESTEROLEMIA, UNSPECIFIED 03/21/2020 [facility] DO, SESAR Ot E87.70 FLUID OVERLOAD, UNSPECIFIED 03/21/2020 [facility] DO, SESAR Ot F32.9 MAJOR DEPRESSIVE DISORDER, SINGLE EPISOD 03/21/2020 [facility] DO, SESAR Ot F41.9 ANXIETY DISORDER, UNSPECIFIED 03/21/2020 [facility] DO, SESAR Ot I10 ESSENTIAL (PRIMARY) HYPERTENSION 03/21/2020 [facility] DO, SESAR Ot I25.10 ATHSCL HEART DISEASE OF [place] CORONARY 03/21/2020 [facility] DO, SESAR Ot K13.79 OTHER LESIONS OF ORAL MUCOSA 03/21/2020 [facility] DO, SESAR Ot L68.0 HIRSUTISM 03/21/2020 [facility] DO, SESAR Ot R50.9 FEVER, UNSPECIFIED 03/21/2020 [facility] DO, SESAR Ot R53.1 WEAKNESS 03/21/2020 [facility] DO, SESAR Ot R53.81 OTHER MALAISE 03/21/2020 [facility] DO, SESAR Ot R60.1 GENERALIZED EDEMA 03/21/2020 [facility] DO, SESAR Ot Z48.81 5 ENCNTR FOR SURGICAL AFTCR FOLLOWING SURG 03/21/2020 [facility] DO, SESAR Ot Z93.2 ILEOSTOMY STATUS 03/21/2020 [facility] DO, SESAR Ot Z95.5 PRESENCE OF CORONARY ANGIOPLASTY IMPLANT 03/22/2020 [facility] DO, SESAR Ot D64.9 ANEMIA, UNSPECIFIED 03/22/2020 [facility] DO, SESAR Ot E78.00 PURE HYPERCHOLESTEROLEMIA, UNSPECIFIED 03/22/2020 [facility] DO, SESAR Ot E87.70 FLUID OVERLOAD, UNSPECIFIED 03/22/2020 [facility] DO, SESAR Ot F32.9 MAJOR DEPRESSIVE DISORDER, SINGLE EPISOD 03/22/2020 [facility] DO, SESAR Ot F41.9 ANXIETY DISORDER, UNSPECIFIED 03/22/2020 [facility] DO, SESAR Ot I10 ESSENTIAL (PRIMARY) HYPERTENSION 03/22/2020 [facility] DO, SESAR Ot I25.10 ATHSCL HEART DISEASE OF [place] CORONARY 03/22/2020 [facility] DO, SESAR Ot K13.79 OTHER LESIONS OF ORAL MUCOSA 03/22/2020 [facility] DO, SESAR Ot L68.0 HIRSUTISM 03/22/2020 [facility] DO, SESAR Ot R50.9 FEVER, UNSPECIFIED 03/22/2020 [facility] DO, SESAR Ot R53.1 WEAKNESS 03/22/2020 [facility] DO, SESAR Ot R53.81 OTHER MALAISE 03/22/2020 [facility] DO, SESAR Ot R60.1 GENERALIZED EDEMA 03/22/2020 [facility] DO, SESAR Ot Z48.81 5 ENCNTR FOR SURGICAL AFTCR FOLLOWING SURG 03/22/2020 [facility] DO, SESAR Ot Z93.2 ILEOSTOMY STATUS 03/22/2020 [facility] DO, SESAR Ot Z95.5 PRESENCE OF CORONARY ANGIOPLASTY IMPLANT 03/23/2020 [facility] DO, SESAR Ot D64.9 ANEMIA, UNSPECIFIED 03/23/2020 [facility] DO, SESAR Ot E78.00 PURE HYPERCHOLESTEROLEMIA, UNSPECIFIED 03/23/2020 [facility] DO, SESAR Ot E87.70 FLUID OVERLOAD, UNSPECIFIED 03/23/2020 [facility] DO, SESAR Ot F32.9 MAJOR DEPRESSIVE DISORDER, SINGLE EPISOD 03/23/2020 [facility] DO, SESAR Ot F41.9 ANXIETY DISORDER, UNSPECIFIED 03/23/2020 [facility] DO, SESAR Ot I10 ESSENTIAL (PRIMARY) HYPERTENSION 03/23/2020 [facility] DO, SESAR Ot I25.10 ATHSCL HEART DISEASE OF [place] CORONARY 03/23/2020 [facility] DO, SESAR Ot K13.79 OTHER LESIONS OF ORAL MUCOSA 03/23/2020 [facility] DO, SESAR Ot L68.0 HIRSUTISM 03/23/2020 [facility] DO, SESAR Ot R50.9 FEVER, UNSPECIFIED 03/23/2020 [facility] DO, SESAR Ot R53.1 WEAKNESS 03/23/2020 [facility] DO, SESAR Ot R53.81 OTHER MALAISE 03/23/2020 [facility] DO, SESAR Ot R60.1 GENERALIZED EDEMA 03/23/2020 [facility] DO, SESAR Ot Z48.81 5 ENCNTR FOR SURGICAL AFTCR FOLLOWING SURG 03/23/2020 [facility] DO, SESAR Ot Z93.2 ILEOSTOMY STATUS 03/23/2020 [facility] DO, SESAR Ot Z95.5 PRESENCE OF CORONARY ANGIOPLASTY IMPLANT 03/24/2020 [facility] DO, SESAR Ot D64.9 ANEMIA, UNSPECIFIED 03/24/2020 [facility] DO, SESAR Ot E78.00 PURE HYPERCHOLESTEROLEMIA, UNSPECIFIED 03/24/2020 [facility] DO, SESAR Ot E87.70 FLUID OVERLOAD, UNSPECIFIED 03/24/2020 [facility] DO, SESAR Ot F32.9 MAJOR DEPRESSIVE DISORDER, SINGLE EPISOD 03/24/2020 [facility] DO, SESAR Ot F41.9 ANXIETY DISORDER, UNSPECIFIED 03/24/2020 [facility] DO, SESAR Ot I10 ESSENTIAL (PRIMARY) HYPERTENSION 03/24/2020 [facility] DO, SESAR Ot I25.10 ATHSCL HEART DISEASE OF [place] CORONARY 03/24/2020 [facility] DO, SESAR Ot K13.79 OTHER LESIONS OF ORAL MUCOSA 03/24/2020 [facility] DO, SESAR Ot L68.0 HIRSUTISM 03/24/2020 [facility] DO, SESAR Ot R50.9 FEVER, UNSPECIFIED 03/24/2020 [facility] DO, SESAR Ot R53.1 WEAKNESS 03/24/2020 [facility] DO, SESAR Ot R53.81 OTHER MALAISE 03/24/2020 [facility] DO, SESAR Ot R60.1 GENERALIZED EDEMA 03/24/2020 [facility] DO, SESAR Ot Z48.81 5 ENCNTR FOR SURGICAL AFTCR FOLLOWING SURG 03/24/2020 [facility] DO, SESAR Ot Z93.2 ILEOSTOMY STATUS 03/24/2020 [facility] DO, SESAR Ot Z95.5 PRESENCE OF CORONARY ANGIOPLASTY IMPLANT 03/25/2020 [facility] DO, SESAR Ot D64.9 ANEMIA, UNSPECIFIED 03/25/2020 [facility] DO, SESAR Ot E78.00 PURE HYPERCHOLESTEROLEMIA, UNSPECIFIED 03/25/2020 [facility] DO, SESAR Ot E87.70 FLUID OVERLOAD, UNSPECIFIED 03/25/2020 [facility] DO, SESAR Ot F32.9 MAJOR DEPRESSIVE DISORDER, SINGLE EPISOD 03/25/2020 [facility] DO, SESAR Ot F41.9 ANXIETY DISORDER, UNSPECIFIED 03/25/2020 [facility] DO, SESAR Ot I10 ESSENTIAL (PRIMARY) HYPERTENSION 03/25/2020 [facility] DO, SESAR Ot I25.10 ATHSCL HEART DISEASE OF [place] CORONARY 03/25/2020 [facility] DO, SESAR Ot K13.79 OTHER LESIONS OF ORAL MUCOSA 03/25/2020 [facility] DO, SESAR Ot L68.0 HIRSUTISM 03/25/2020 [facility] DO, SESAR Ot R50.9 FEVER, UNSPECIFIED 03/25/2020 [facility] DO, SESAR Ot R53.1 WEAKNESS 03/25/2020 [facility] DO, SESAR Ot R53.81 OTHER MALAISE 03/25/2020 [facility] DO, SESAR Ot R60.1 GENERALIZED EDEMA 03/25/2020 [facility] DO, SESAR Ot Z48.81 5 ENCNTR FOR SURGICAL AFTCR FOLLOWING SURG 03/25/2020 [facility] DO, SESAR Ot Z93.2 ILEOSTOMY STATUS 03/25/2020 [facility] DO, SESAR Ot Z95.5 PRESENCE OF CORONARY ANGIOPLASTY IMPLANT 03/26/2020 [facility] DO, SESAR Ot D64.9 ANEMIA, UNSPECIFIED 03/26/2020 [facility] DO, SESAR Ot E78.00 PURE HYPERCHOLESTEROLEMIA, UNSPECIFIED 03/26/2020 BEE[facility] DO, SESAR Ot E87.70 FLUID OVERLOAD, UNSPECIFIED 03/26/2020 [facility] DO, SESAR Ot F32.9 MAJOR DEPRESSIVE DISORDER, SINGLE EPISOD 03/26/2020 [facility]EE[facility] DO, SESAR Ot F41.9 ANXIETY DISORDER, UNSPECIFIED 03/26/2020 BEEBE DO, SESAR Ot I10 ESSENTIAL (PRIMARY) HYPERTENSION 03/26/2020 [facility]EE[facility] DO, SESAR Ot I25.10 ATHSCL HEART DISEASE OF [place] CORONARY 03/26/2020 [facility] DO, SESAR Ot K13.79 OTHER LESIONS OF ORAL MUCOSA 03/26/2020 BEEBE DO, SESAR Ot L68.0 HIRSUTISM 03/26/2020 BEEBE DO, SESAR Ot R50.9 FEVER, UNSPECIFIED 03/26/2020 [facility]EE[facility] DO, SESAR Ot R53.1 WEAKNESS 03/26/2020 BEEBE DO, SESAR Ot R53.81 OTHER MALAISE 03/26/2020 BEEBE DO, SESAR Ot R60.1 GENERALIZED EDEMA 03/26/2020 BEEBE DO, SESAR Ot Z48.81 5 ENCNTR FOR SURGICAL AFTCR FOLLOWING SURG 03/26/2020 BEEBE DO, SESAR Ot Z93.2 ILEOSTOMY STATUS 03/26/2020 BEEBE DO, SESAR Ot Z95.5 PRESENCE OF CORONARY ANGIOPLASTY IMPLANT 03/26/2020 BEEBE DO, SESAR Ot D64.9 ANEMIA, UNSPECIFIED 03/26/2020 BEEBE DO, SESAR Ot E78.00 PURE HYPERCHOLESTEROLEMIA, UNSPECIFIED 03/26/2020 BEEBE DO, SESAR Ot E87.70 FLUID OVERLOAD, UNSPECIFIED 03/26/2020 BEEBE DO, SESAR Ot F32.9 MAJOR DEPRESSIVE DISORDER, SINGLE EPISOD 03/26/2020 BEEBE DO, SESAR Ot F41.9 ANXIETY DISORDER, UNSPECIFIED 03/26/2020 BEEBE DO, SESAR Ot I10 ESSENTIAL (PRIMARY) HYPERTENSION 03/26/2020 BEEBE DO, SESAR Ot I25.10 ATHSCL HEART DISEASE OF [place] CORONARY 03/26/2020 BEEBE DO, SESAR Ot K13.79 OTHER LESIONS OF ORAL MUCOSA 03/26/2020 BEEBE DO, SESAR Ot L68.0 HIRSUTISM 03/26/2020 BEEBE DO, SESAR Ot R50.9 FEVER, UNSPECIFIED 03/26/2020 BEEBE DO, SESAR Ot R53.1 WEAKNESS 03/26/2020 BEEBE DO, SESAR Ot R53.81 OTHER MALAISE 03/26/2020 BEEBE DO, SESAR Ot R60.1 GENERALIZED EDEMA 03/26/2020 BEEBE DO, SESAR Ot Z48.81 5 ENCNTR FOR SURGICAL AFTCR FOLLOWING SURG 03/26/2020 BEEBE DO, SESAR Ot Z93.2 ILEOSTOMY STATUS 03/26/2020 BEEBE DO, SESAR Ot Z95.5 PRESENCE OF CORONARY ANGIOPLASTY IMPLANT 03/27/2020 BEEBE DO, SESAR Ot D64.9 ANEMIA, UNSPECIFIED 03/27/2020 BEEBE DO, SESAR Ot E78.00 PURE HYPERCHOLESTEROLEMIA, UNSPECIFIED 03/27/2020 BEEBE DO, SESAR Ot E87.70 FLUID OVERLOAD, UNSPECIFIED 03/27/2020 BEEBE DO, SESAR Ot F32.9 MAJOR DEPRESSIVE DISORDER, SINGLE EPISOD 03/27/2020 EBEBE DO, SESAR Ot F41.9 ANXIETY DISORDER, UNSPECIFIED 03/27/2020 BEEBE DO, SESAR Ot I10 ESSENTIAL (PRIMARY) HYPERTENSION 03/27/2020 BEE[facility] DO, SESAR Ot I25.10 ATHSCL HEART DISEASE OF [place] CORONARY 03/27/2020 [facility] DO, SESAR Ot K13.79 OTHER LESIONS OF ORAL MUCOSA 03/27/2020 BEEBE DO, SESAR Ot L68.0 HIRSUTISM 03/27/2020 [facility] DO, SESAR Ot R50.9 FEVER, UNSPECIFIED 03/27/2020 [facility] DO, SESAR Ot R53.1 WEAKNESS 03/27/2020 BEE[facility] DO, SESAR Ot R53.81 OTHER MALAISE 03/27/2020 BEEBE DO, SESAR Ot R60.1 GENERALIZED EDEMA 03/27/2020 BEEBE DO, SESAR Ot Z48.81 5 ENCNTR FOR SURGICAL AFTCR FOLLOWING SURG 03/27/2020 BEEBE DO, SESAR Ot Z93.2 ILEOSTOMY STATUS 03/27/2020 BEEBE DO, SESAR Ot Z95.5 PRESENCE OF CORONARY ANGIOPLASTY IMPLANT 03/28/2020 BEEBE DO, SESAR Ot D64.9 ANEMIA, UNSPECIFIED 03/28/2020 BEEBE DO, SESAR Ot E78.00 PURE HYPERCHOLESTEROLEMIA, UNSPECIFIED 03/28/2020 BEEBE DO, SESAR Ot E87.70 FLUID OVERLOAD, UNSPECIFIED 03/28/2020 BEEBE DO, SESAR Ot F32.9 MAJOR DEPRESSIVE DISORDER, SINGLE EPISOD 03/28/2020 BEEBE DO, SESAR Ot F41.9 ANXIETY DISORDER, UNSPECIFIED 03/28/2020 BEEBE DO, SESAR Ot I10 ESSENTIAL (PRIMARY) HYPERTENSION 03/28/2020 BEEBE DO, SESAR Ot I25.10 ATHSCL HEART DISEASE OF [place] CORONARY 03/28/2020 BEEBE DO, SESAR Ot K13.79 OTHER LESIONS OF [place] 03/28/2020 BEEBE DO, SESAR Ot L68.0 HIRSUTISM 03/28/2020 BEEBE DO, SESAR Ot R50.9 FEVER, UNSPECIFIED 03/28/2020 BEEBE DO, SESAR Ot R53.1 WEAKNESS 03/28/2020 BEEBE DO, SESAR Ot R53.81 OTHER MALAISE 03/28/2020 BEEBE DO, SESAR Ot R60.1 GENERALIZED EDEMA 03/28/2020 BEEBE DO, SESAR Ot Z48.81 5 ENCNTR FOR SURGICAL AFTCR FOLLOWING SURG 03/28/2020 BEEBE DO, SESAR Ot Z93.2 ILEOSTOMY STATUS 03/28/2020 BEEBE DO, SESAR Ot Z95.5 PRESENCE OF CORONARY ANGIOPLASTY IMPLANT 03/29/2020 BEEBE DO, SESAR Ot D64.9 ANEMIA, UNSPECIFIED 03/29/2020 BEEBE DO, SESAR Ot E78.00 PURE HYPERCHOLESTEROLEMIA, UNSPECIFIED 03/29/2020 BEEBE DO, SESAR Ot E87.70 FLUID OVERLOAD, UNSPECIFIED 03/29/2020 BEEBE DO, SESAR Ot F32.9 MAJOR DEPRESSIVE DISORDER, SINGLE EPISOD 03/29/2020 BEEBE DO, SESAR Ot F41.9 ANXIETY DISORDER, UNSPECIFIED 03/29/2020 BEEBE DO, SESAR Ot I10 ESSENTIAL (PRIMARY) HYPERTENSION 03/29/2020 BEEBE DO, SESAR Ot I25.10 ATHSCL HEART DISEASE OF [place] CORONARY 03/29/2020 BEEBE DO, SESAR Ot K13.79 OTHER LESIONS OF [place]AL [place]UC[place] 03/29/2020 BEEBE DO, SESAR Ot L68.0 HIRSUTISM 03/29/2020 BEEBE DO, SESAR Ot R50.9 FEVER, UNSPECIFIED 03/29/2020 BEEBE DO, SESAR Ot R53.1 WEAKNESS 03/29/2020 BEEBE DO, SESAR Ot R53.81 OTHER MALAISE 03/29/2020 BEEBE DO SESAR Ot R60.1 GENERALIZED EDEMA 03/29/2020 BEEBE DO, SESAR Ot Z48.81 5 ENCNTR FOR SURGICAL AFTCR FOLLOWING SURG 03/29/2020 BEEBE DO, SESAR Ot Z93.2 ILEOSTOMY STATUS 03/29/2020 BEEBE DO SESAR Ot Z95.5 PRESENCE OF CORONARY ANGIOPLASTY IMPLANT 03/30/2020 BEEBE DO SESAR Ot D64.9 ANEMIA, UNSPECIFIED 03/30/2020 BEEBE DO, SESAR Ot E78.00 PURE HYPERCHOLESTEROLEMIA, UNSPECIFIED 03/30/2020 BEEBE DO, SESAR Ot E87.70 FLUID OVERLOAD, UNSPECIFIED 03/30/2020 BEEBE DO, SESAR Ot F32.9 MAJOR DEPRESSIVE DISORDER, SINGLE EPISOD 03/30/2020 BEEBE DO, SESAR Ot F41.9 ANXIETY DISORDER, UNSPECIFIED 03/30/2020 BEEBE DO, SESAR Ot I10 ESSENTIAL (PRIMARY) HYPERTENSION 03/30/2020 BEEBE DO, SESAR Ot I25.10 ATHSCL HEART DISEASE OF [place] CORONARY 03/30/2020 BEEBE DO, SESAR Ot K13.79 OTHER LESIONS OF [place]AL [place]UC[place] 03/30/2020 BEEBE DO, SESAR Ot L68.0 HIRSUTISM 03/30/2020 BEEBE DO, SESAR Ot R50.9 FEVER, UNSPECIFIED 03/30/2020 BEEBE DO, SSEAR Ot R53.1 WEAKNESS 03/30/2020 BEEBE DO, SESAR Ot R53.81 OTHER MALAISE 03/30/2020 BEEBE DO, SESAR Ot R60.1 GENERALIZED EDEMA 03/30/2020 BEEBE DO, SESAR Ot Z48.81 5 ENCNTR FOR SURGICAL AFTCR FOLLOWING SURG 03/30/2020 BEEBE DO, SESAR Ot Z93.2 ILEOSTOMY STATUS 03/30/2020 BEEBE DO, SESAR Ot Z95.5 PRESENCE OF CORONARY ANGIOPLASTY IMPLANT 03/31/2020 BEEBE DO, SESAR Ot D64.9 ANEMIA, UNSPECIFIED 03/31/2020 BEEBE DO, SESAR Ot E78.00 PURE HYPERCHOLESTEROLEMIA, UNSPECIFIED 03/31/2020 BEEBE DO, SESAR Ot E87.70 FLUID OVERLOAD, UNSPECIFIED 03/31/2020 BEEBE DO, SESAR Ot F32.9 MAJOR DEPRESSIVE DISORDER, SINGLE EPISOD 03/31/2020 BEEBE DO, SESAR Ot F41.9 ANXIETY DISORDER, UNSPECIFIED 03/31/2020 BEEBE DO, SESAR Ot I10 ESSENTIAL (PRIMARY) HYPERTENSION 03/31/2020 BEEBE DO, SESAR Ot I25.10 ATHSCL HEART DISEASE OF [place] CORONARY 03/31/2020 BEEBE DO, SESAR Ot K13.79 OTHER LESIONS OF [place]AL [place]UC[place] 03/31/2020 BEEBE DO, SESAR Ot L68.0 HIRSUTISM 03/31/2020 BEEBE DO, SESAR Ot R50.9 FEVER, UNSPECIFIED 03/31/2020 BEEBE DO, SESAR Ot R53.1 WEAKNESS 03/31/2020 BEEBE DO, SESAR Ot R53.81 OTHER [place] 03/31/2020 BEEBE DO, SESAR Ot R60.1 GENERALIZED EDEMA 03/31/2020 BEEBE DO, SESAR Ot Z48.81 5 ENCNTR FOR SURGICAL AFTCR FOLLOWING SURG 03/31/2020 BEEBE DO, SESAR Ot Z93.2 ILEOSTOMY STATUS 03/31/2020 BEEBE DO, SESAR Ot Z95.5 PRESENCE OF CORONARY ANGIOPLASTY IMPLANT 04/01/2020 BEEBE DO, SESAR Ot D64.9 ANEMIA, UNSPECIFIED 04/01/2020 BEEBE DO, SESAR Ot E78.00 PURE HYPERCHOLESTEROLEMIA, UNSPECIFIED 04/01/2020 BEEBE DO, SESAR Ot E87.70 FLUID OVERLOAD, UNSPECIFIED 04/01/2020 BEEBE DO, SESAR Ot F32.9 MAJOR DEPRESSIVE DISORDER, SINGLE EPISOD 04/01/2020 BEEBE DO, SESAR Ot F41.9 ANXIETY DISORDER, UNSPECIFIED 04/01/2020 BEEBE DO, SESAR Ot I10 ESSENTIAL (PRIMARY) HYPERTENSION 04/01/2020 BEEBE DO, SESAR Ot I25.10 ATHSCL HEART DISEASE OF [place] CORONARY 04/01/2020 BEEBE DO, SESAR Ot K13.79 OTHER LESIONS OF ORAL MUCOSA 04/01/2020 BEEBE DO, SESAR Ot L68.0 HIRSUTISM 04/01/2020 BEEBE DO, SESAR Ot R50.9 FEVER, UNSPECIFIED 04/01/2020 BEEBE DO, SESAR Ot R53.1 WEAKNESS 04/01/2020 BEEBE DO, SESAR Ot R53.81 OTHER MALAISE 04/01/2020 BEEBE DO, SESAR Ot R60.1 GENERALIZED EDEMA 04/01/2020 BEEBE DO, SESAR Ot Z48.81 5 ENCNTR FOR SURGICAL AFTCR FOLLOWING SURG 04/01/2020 BEEBE DO, SESAR Ot Z93.2 ILEOSTOMY STATUS 04/01/2020 BEEBE DO, SESAR Ot Z95.5 PRESENCE OF CORONARY ANGIOPLASTY IMPLANT 04/02/2020 BEEBE DO, SESAR Ot D64.9 ANEMIA, UNSPECIFIED 04/02/2020 BEEBE DO, SESAR Ot E78.00 PURE HYPERCHOLESTEROLEMIA, UNSPECIFIED 04/02/2020 BEEBE DO, SESAR Ot E87.70 FLUID OVERLOAD, UNSPECIFIED 04/02/2020 BEEBE DO, SESAR Ot F32.9 MAJOR DEPRESSIVE DISORDER, SINGLE EPISOD 04/02/2020 BEEBE DO, SESAR Ot F41.9 ANXIETY DISORDER, UNSPECIFIED 04/02/2020 BEEBE DO, SESAR Ot I10 ESSENTIAL (PRIMARY) HYPERTENSION 04/02/2020 BEEBE DO, SESAR Ot I25.10 ATHSCL HEART DISEASE OF [place] CORONARY 04/02/2020 BEEBE DO, SESAR Ot K13.79 OTHER LESIONS OF ORAL MUCOSA 04/02/2020 BEEBE DO, SESAR Ot L68.0 HIRSUTISM 04/02/2020 BEEBE DO, SESAR Ot R50.9 FEVER, UNSPECIFIED 04/02/2020 BEEBE DO, SESAR Ot R53.1 WEAKNESS 04/02/2020 BEEBE DO, SESAR Ot R53.81 OTHER MALAISE 04/02/2020 BEEBE DO, SESAR Ot R60.1 GENERALIZED EDEMA 04/02/2020 BEEBE DO, SESAR Ot Z48.81 5 ENCNTR FOR SURGICAL AFTCR FOLLOWING SURG 04/02/2020 BEEBE DO, SESAR Ot Z93.2 ILEOSTOMY STATUS 04/02/2020 BEEBE DO, SESAR Ot Z95.5 PRESENCE OF CORONARY ANGIOPLASTY IMPLANT 04/03/2020 BEEBE DO, SESAR Ot D64.9 ANEMIA, UNSPECIFIED 04/03/2020 BEEBE DO, SESAR Ot E78.00 PURE HYPERCHOLESTEROLEMIA, UNSPECIFIED 04/03/2020 BEEBE DO, SESAR Ot E87.70 FLUID OVERLOAD, UNSPECIFIED 04/03/2020 BEEBE DO, SESAR Ot F32.9 MAJOR DEPRESSIVE DISORDER, SINGLE EPISOD 04/03/2020 BEEBE DO, SESAR Ot F41.9 ANXIETY DISORDER, UNSPECIFIED 04/03/2020 BEEBE DO, SESAR Ot I10 ESSENTIAL (PRIMARY) HYPERTENSION 04/03/2020 BEEBE DO, SESAR Ot I25.10 ATHSCL HEART DISEASE OF [place] CORONARY 04/03/2020 BEEBE DO, SESAR Ot K13.79 OTHER LESIONS OF ORAL MUCOSA 04/03/2020 BEEBE DO, SESAR Ot L68.0 HIRSUTISM 04/03/2020 BEEBE DO, SESAR Ot R50.9 FEVER, UNSPECIFIED 04/03/2020 BEEBE DO, SESAR Ot R53.1 WEAKNESS 04/03/2020 BEEBE DO, SESAR Ot R53.81 OTHER MALAISE 04/03/2020 BEEBE DO, SESAR Ot R60.1 GENERALIZED EDEMA 04/03/2020 BEEBE DO, SESAR Ot Z48.81 5 ENCNTR FOR SURGICAL AFTCR FOLLOWING SURG 04/03/2020 BEEBE DO, SESAR Ot Z93.2 ILEOSTOMY STATUS 04/03/2020 BEEBE DO, SESAR Ot Z95.5 PRESENCE OF CORONARY ANGIOPLASTY IMPLANT 04/04/2020 BEEBE DO, SESAR Ot D64.9 ANEMIA, UNSPECIFIED 04/04/2020 BEEBE DO, SESAR Ot E78.00 PURE HYPERCHOLESTEROLEMIA, UNSPECIFIED 04/04/2020 BEEBE DO, SESAR Ot E87.70 FLUID OVERLOAD, UNSPECIFIED 04/04/2020 BEEBE DO, SESAR Ot F32.9 MAJOR DEPRESSIVE DISORDER, SINGLE EPISOD 04/04/2020 BEEBE DO, SESAR Ot F41.9 ANXIETY DISORDER, UNSPECIFIED 04/04/2020 BEEBE DO, SESAR Ot I10 ESSENTIAL (PRIMARY) HYPERTENSION 04/04/2020 BEEBE DO, SESAR Ot I25.10 ATHSCL HEART DISEASE OF [place] CORONARY 04/04/2020 BEEBE DO, SESAR Ot K13.79 OTHER LESIONS OF ORAL MUCOSA 04/04/2020 BEEBE DO, SESAR Ot L68.0 HIRSUTISM 04/04/2020 BEEBE DO, SESAR Ot R50.9 FEVER, UNSPECIFIED 04/04/2020 BEEBE DO, SESAR Ot R53.1 WEAKNESS 04/04/2020 BEEBE DO, SESAR Ot R53.81 OTHER MALAISE 04/04/2020 BEEBE DO, SESAR Ot R60.1 GENERALIZED EDEMA 04/04/2020 BEEBE DO, SESAR Ot Z48.81 5 ENCNTR FOR SURGICAL AFTCR FOLLOWING SURG 04/04/2020 BEEBE DO, SESAR Ot Z93.2 ILEOSTOMY STATUS 04/04/2020 BEEBE DO, SESAR Ot Z95.5 PRESENCE OF CORONARY ANGIOPLASTY IMPLANT 04/05/2020 BEEBE DO, SESAR Ot D64.9 ANEMIA, UNSPECIFIED 04/05/2020 BEEBE DO, SESAR Ot E78.00 PURE HYPERCHOLESTEROLEMIA, UNSPECIFIED 04/05/2020 BEEBE DO, SESAR Ot E87.70 FLUID OVERLOAD, UNSPECIFIED 04/05/2020 BEEBE DO, SESAR Ot F32.9 MAJOR DEPRESSIVE DISORDER, SINGLE EPISOD 04/05/2020 BEEBE DO, SESAR Ot F41.9 ANXIETY DISORDER, UNSPECIFIED 04/05/2020 BEEBE DO, SESAR Ot I10 ESSENTIAL (PRIMARY) HYPERTENSION 04/05/2020 BEEBE DO, SESAR Ot I25.10 ATHSCL HEART DISEASE OF [place] CORONARY 04/05/2020 BEEBE DO, SESAR Ot K13.79 OTHER LESIONS OF ORAL MUCOSA 04/05/2020 BEEBE DO, SESAR Ot L68.0 HIRSUTISM 04/05/2020 BEEBE DO, SESAR Ot R50.9 FEVER, UNSPECIFIED 04/05/2020 BEEBE DO, SESAR Ot R53.1 WEAKNESS 04/05/2020 BEEBE DO, SESAR Ot R53.81 OTHER MALAISE 04/05/2020 BEEBE DO, SESAR Ot R60.1 GENERALIZED EDEMA 04/05/2020 BEEBE DO, SESAR Ot Z48.81 5 ENCNTR FOR SURGICAL AFTCR FOLLOWING SURG 04/05/2020 BEEBE DO, SESAR Ot Z93.2 ILEOSTOMY STATUS 04/05/2020 BEEBE DO, SESAR Ot Z95.5 PRESENCE OF CORONARY ANGIOPLASTY IMPLANT 04/06/2020 BEEBE DO, SESAR Ot D64.9 ANEMIA, UNSPECIFIED 04/06/2020 BEEBE DO, SESAR Ot E78.00 PURE HYPERCHOLESTEROLEMIA, UNSPECIFIED 04/06/2020 BEEBE DO, SESAR Ot E87.70 FLUID OVERLOAD, UNSPECIFIED 04/06/2020 BEEBE DO, SESAR Ot F32.9 MAJOR DEPRESSIVE DISORDER, SINGLE EPISOD 04/06/2020 BEEBE DO, SESAR Ot F41.9 ANXIETY DISORDER, UNSPECIFIED 04/06/2020 BEEBE DO, SESAR Ot I10 ESSENTIAL (PRIMARY) HYPERTENSION 04/06/2020 BEEBE DO, SESAR Ot I25.10 ATHSCL HEART DISEASE OF [place] CORONARY 04/06/2020 BEEBE DO, SESAR Ot K13.79 OTHER LESIONS OF ORAL MUCOSA 04/06/2020 BEEBE DO, SESAR Ot L68.0 HIRSUTISM 04/06/2020 BEEBE DO, SESAR Ot R50.9 FEVER, UNSPECIFIED 04/06/2020 BEEBE DO, SESAR Ot R53.1 WEAKNESS 04/06/2020 BEEBE DO, SESAR Ot R53.81 OTHER MALAISE 04/06/2020 BEEBE DO, SESAR Ot R60.1 GENERALIZED EDEMA 04/06/2020 BEEBE DO, SESAR Ot Z48.81 5 ENCNTR FOR SURGICAL AFTCR FOLLOWING SURG 04/06/2020 BEEBE DO, SESAR Ot Z93.2 ILEOSTOMY STATUS 04/06/2020 BEEBE DO, SESAR Ot Z95.5 PRESENCE OF CORONARY ANGIOPLASTY IMPLANT 04/06/2020 BEEBE DO, SESAR Ot D64.9 ANEMIA, UNSPECIFIED 04/06/2020 BEEBE DO, SESAR Ot E78.00 PURE HYPERCHOLESTEROLEMIA, UNSPECIFIED 04/06/2020 BEEBE DO, SESAR Ot E86.9 VOLUME DEPLETION, UNSPECIFIED 04/06/2020 BEEBE DO, SESAR Ot E87.1 HYPO-OSMOLALITY AND HYPONATREMIA 04/06/2020 BEEBE DO, SESAR Ot E87.70 FLUID OVERLOAD, UNSPECIFIED 04/06/2020 BEEBE DO, SESAR Ot F32.9 MAJOR DEPRESSIVE DISORDER, SINGLE EPISOD 04/06/2020 BEEBE DO, SESAR Ot F41.9 ANXIETY DISORDER, UNSPECIFIED 04/06/2020 BEEBE DO, SESAR Ot I07.1 RHEUMATIC TRICUSPID INSUFFICIENCY 04/06/2020 BEEBE DO, SESAR Ot I10 ESSENTIAL (PRIMARY) HYPERTENSION 04/06/2020 BEEBE DO, SESAR Ot I21.A1 MYOCARDIAL INFARCTION TYPE 2 04/06/2020 BEEBE DO, SESAR Ot I25.10 ATHSCL HEART DISEASE OF [place] CORONARY 04/06/2020 BEEBE DO, SESAR Ot K13.79 OTHER LESIONS OF ORAL MUCOSA 04/06/2020 BEEBE DO, SESAR Ot L68.0 HIRSUTISM 04/06/2020 BEEBE DO, SESAR Ot N17.9 ACUTE KIDNEY FAILURE, UNSPECIFIED 04/06/2020 BEEBE DO, SESAR Ot R11.10 VOMITING, UNSPECIFIED 04/06/2020 BEEBE DO, SESAR Ot R50.9 FEVER, UNSPECIFIED 04/06/2020 BEEBE DO, SESAR Ot R53.1 WEAKNESS 04/06/2020 BEEBE DO, SESAR Ot R53.81 OTHER MALAISE 04/06/2020 BEEBE DO, SESAR Ot R60.1 GENERALIZED EDEMA 04/06/2020 BEEBE DO, SESAR Ot Z48.81 5 ENCNTR FOR SURGICAL AFTCR FOLLOWING SURG 04/06/2020 BEEBE DO, SESAR Ot Z93.2 ILEOSTOMY STATUS 04/06/2020 BEEBE DO, SESAR Ot Z95.5 PRESENCE OF CORONARY ANGIOPLASTY IMPLANT 05/07/2020 ALVINO SANDERS SHEILA B Ot D64.9 ANEMIA, UNSPECIFIED 05/07/2020 ALVINO SANDERS, SHEILA B Ot E78.0 0 PURE HYPERCHOLESTEROLEMIA, UNSPECIFIED 05/07/2020 ALVINO DO SHEILA B Ot E87.1 HYPO-OSMOLALITY AND HYPONATREMIA 05/07/2020 ALVINO SANDERS SHEILA B Ot E87.6 HYPOKALEMIA 05/07/2020 [facility], SHEILA B Ot I07.1 RHEUMATIC TRICUSPID INSUFFICIENCY 05/07/2020 [facility], SHEILA B Ot I11.0 HYPERTENSIVE HEART DISEASE WITH HEART FA 05/07/2020 [facility], SHEILA B Ot I21.A 1 MYOCARDIAL INFARCTION TYPE 2 05/07/2020 [facility] DO, SHEILA B Ot I25.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 05/07/2020 [facility], SHEILA B Ot I25.2 OLD MYOCARDIAL INFARCTION 05/07/2020 [facility], SHEILA B Ot I50.9 HEART FAILURE, UNSPECIFIED 05/07/2020 [facility], SHEILA B Ot I95.8 1 POSTPROCEDURAL HYPOTENSION 05/07/2020 [facility], SHEILA B Ot J96.0 0 ACUTE RESPIRATORY FAILURE, UNSP W HYPOXI 05/07/2020 [facility], SHEILA B Ot J98.1 1 ATELECTASIS 05/07/2020 [facility], SHEILA B Ot K42.0 UMBILICAL HERNIA WITH OBSTRUCTION, WITHO 05/07/2020 [facility], SHEILA B Ot K56.2 VOLVULUS 05/07/2020 [facility], SHEILA B Ot K59.0 0 CONSTIPATION, UNSPECIFIED 05/07/2020 [facility], SHEILA B Ot K65.1 PERITONEAL ABSCESS 05/07/2020 [facility], SHEILA B Ot N17.9 ACUTE KIDNEY FAILURE, UNSPECIFIED 05/07/2020 [facility], SHEILA B Ot N39.0 URINARY TRACT INFECTION, SITE NOT SPECIF 05/07/2020 [facility], SHEILA B Ot R65.2 1 SEVERE SEPSIS WITH SEPTIC SHOCK 05/07/2020 [facility], SHEILA B Ot R79.8 9 OTHER SPECIFIED ABNORMAL FINDINGS OF BLO 05/07/2020 [facility], SHEILA B Ot Z95.5 PRESENCE OF CORONARY ANGIOPLASTY IMPLANT 05/07/2020 [facility], SHEILA B Ot D64.9 ANEMIA, UNSPECIFIED 05/07/2020 [facility], SHEILA B Ot E78.0 0 PURE HYPERCHOLESTEROLEMIA, UNSPECIFIED 05/07/2020 [facility], SHEILA B Ot E87.1 HYPO-OSMOLALITY AND HYPONATREMIA 05/07/2020 [facility], SHEILA B Ot E87.6 HYPOKALEMIA 05/07/2020 [facility], SHEILA B Ot I07.1 RHEUMATIC TRICUSPID INSUFFICIENCY 05/07/2020 [facility], SHEILA B Ot I11.0 HYPERTENSIVE HEART DISEASE WITH HEART FA 05/07/2020 [facility], SHEILA B Ot I21.A 1 MYOCARDIAL INFARCTION TYPE 2 05/07/2020 [facility], SHEILA B Ot I25.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 05/07/2020 [facility], SHEILA B Ot I25.2 OLD MYOCARDIAL INFARCTION 05/07/2020 [facility], SHEILA B Ot I50.9 HEART FAILURE, UNSPECIFIED 05/07/2020 [facility], SHEILA B Ot I95.8 1 POSTPROCEDURAL HYPOTENSION 05/07/2020 [facility], SHEILA B Ot J96.0 0 ACUTE RESPIRATORY FAILURE, UNSP W HYPOXI 05/07/2020 [facility], SHEILA B Ot J98.1 1 ATELECTASIS 05/07/2020 [facility], SHEILA B Ot K42.0 UMBILICAL HERNIA WITH OBSTRUCTION, WITHO 05/07/2020 [facility], SHEILA B Ot K56.2 VOLVULUS 05/07/2020 [facility], SHEILA B Ot K59.0 0 CONSTIPATION, UNSPECIFIED 05/07/2020 [facility], SHEILA B Ot K65.1 PERITONEAL ABSCESS 05/07/2020 [facility], SHEILA B Ot N17.9 ACUTE KIDNEY FAILURE, UNSPECIFIED 05/07/2020 [facility], SHEILA B Ot N39.0 URINARY TRACT INFECTION, SITE NOT SPECIF 05/07/2020 [facility], SHEILA B Ot R65.2 1 SEVERE SEPSIS WITH SEPTIC SHOCK 05/07/2020 [facility], SHEILA B Ot R79.8 9 OTHER SPECIFIED ABNORMAL FINDINGS OF BLO 05/07/2020 [facility], SHEILA B Ot Z95.5 PRESENCE OF CORONARY ANGIOPLASTY IMPLANT 05/07/2020 [facility], SHEILA B Ot D64.9 ANEMIA, UNSPECIFIED 05/07/2020 [facility], SHEILA B Ot E78.0 0 PURE HYPERCHOLESTEROLEMIA, UNSPECIFIED 05/07/2020 [facility], SHEILA B Ot E87.1 HYPO-OSMOLALITY AND HYPONATREMIA 05/07/2020 [facility], SHEILA B Ot E87.6 HYPOKALEMIA 05/07/2020 [facility], SHEILA B Ot I07.1 RHEUMATIC TRICUSPID INSUFFICIENCY 05/07/2020 [facility], SHEILA B Ot I11.0 HYPERTENSIVE HEART DISEASE WITH HEART FA 05/07/2020 [facility], SHEILA B Ot I21.A 1 MYOCARDIAL INFARCTION TYPE 2 05/07/2020 [facility], SHEILA B Ot I25.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 05/07/2020 [facility], SHEILA B Ot I25.2 OLD MYOCARDIAL INFARCTION 05/07/2020 [facility], SHEILA B Ot I50.9 HEART FAILURE, UNSPECIFIED 05/07/2020 [facility], SHEILA B Ot I95.8 1 POSTPROCEDURAL HYPOTENSION 05/07/2020 [facility], SHEILA B Ot J96.0 0 ACUTE RESPIRATORY FAILURE, UNSP W HYPOXI 05/07/2020 [facility], SHEILA B Ot J98.1 1 ATELECTASIS 05/07/2020 [facility], SHEILA B Ot K42.0 UMBILICAL HERNIA WITH OBSTRUCTION, WITHO 05/07/2020 [facility], SHEILA B Ot K56.2 VOLVULUS 05/07/2020 [facility], SHEILA B Ot K59.0 0 CONSTIPATION, UNSPECIFIED 05/07/2020 [facility], SHEILA B Ot K65.1 PERITONEAL ABSCESS 05/07/2020 [facility], SHEILA B Ot N17.9 ACUTE KIDNEY FAILURE, UNSPECIFIED 05/07/2020 [facility], SHEILA B Ot N39.0 URINARY TRACT INFECTION, SITE NOT SPECIF 05/07/2020 [facility], SHEILA B Ot R65.2 1 SEVERE SEPSIS WITH SEPTIC SHOCK 05/07/2020 [facility], SHEILA B Ot R79.8 9 OTHER SPECIFIED ABNORMAL FINDINGS OF BLO 05/07/2020 [facility], SHEILA B Ot Z95.5 PRESENCE OF CORONARY ANGIOPLASTY IMPLANT 05/13/2020 [facility] DO, ANNIE Roman Ot K56.609 UNSP INTESTNL OBST, UNSP TO PARTIAL V 05/13/2020 [facility] DO, ANNIE L Ot R10.9 UNSPECIFIED ABDOMINAL PAIN 05/14/2020 [facility] DO, ANNIE Roman Ot K56.609 UNSP INTESTNL OBST, UNSP TO PARTIAL V 05/14/2020 [facility] DO, ANNIE L Ot R10.9 UNSPECIFIED ABDOMINAL PAIN 05/26/2020 [facility] DO, ANNIE Roman Ot K56.609 UNSP INTESTNL OBST, UNSP TO PARTIAL V 05/26/2020 [facility] DO, ANNIE Roman Ot R10.9 UNSPECIFIED ABDOMINAL PAIN 05/26/2020 [facility] DO, ANNIE Roman Ot K56.609 UNSP INTESTNL OBST, UNSP TO PARTIAL V 05/26/2020 [facility] DO, ANNIE Roman Ot R10.9 UNSPECIFIED ABDOMINAL PAIN 05/27/2020 BENJI WILLOUGHBY Abel RN ANESTHESIOLOGY Ot I 10 ESSENTIAL (PRIMARY) HYPERTENSION 05/29/2020 BENJI WILLOUGHBY Abel RN ANESTHESIOLOGY Ot I 10 ESSENTIAL (PRIMARY) HYPERTENSION 05/29/2020 BENJI WILLOUGHBY Abel RN ANESTHESIOLOGY Ot I 10 ESSENTIAL (PRIMARY) HYPERTENSION 06/19/2020 [facility] DO, ANNIE Roman Ot K56.609 UNSP INTESTNL OBST, UNSP TO PARTIAL V 06/19/2020 [facility] DO, ANNIE Roman Ot R10.9 UNSPECIFIED ABDOMINAL PAIN 06/19/2020 BENJI WILLOUGHBY RN ANESTHESIOLOGY Ot I 10 ESSENTIAL (PRIMARY) HYPERTENSION 06/26/2020 [facility] CALVIN SANDERSIC B Ot Z01.8 18 ENCOUNTER FOR OTHER PREPROCEDURAL EXAMIN 06/26/2020 BERTINCAUSEY SHEILA SANDERS B Ot Z20.8 28 CONTACT W AND EXPOSURE TO OTH VIRAL COMM 06/26/2020 BERTINCAUSEY DO SHEILA B Ot Z93.2 ILEOSTOMY STATUS 06/29/2020 JUDY WILLOUGHBYHER Abel RN ANESTHESIOLOGY Ot I 10 ESSENTIAL (PRIMARY) HYPERTENSION Procedures Code Description Performed By Per formed On [id number] FL ASURE OF CARDIAC SAMPL PRESSURE, L H 03/04/2020 [id number] FL UOROSCOPY OF MULT COR ART USING L OSM 03/04/2020 [id number] BY PASS ILEUM TO CUTANEOUS WITH AUTOL SUB 03/05/2020 [id number] EX CISION OF LARGE INTESTINE, OPEN APPROA 03/05/2020 [id number] IN SPECTION OF LOWER INTESTINAL TRACT, EN 03/05/[id number] NOVAK OF PERITONEAL CAVITY, PERCUTANE 03/16/2020 Results Test Result Range Complete blood count [...] 11/11/19 14:47 PROBNP FS 6112.0 pg/mL <75.0 Complete blood count (CBC) with automate d white blood cell (WBC) differential - 03/04/20 17:40 Blood leukocytes automated count (number/volume) 43.1 10*3/uL 4.3-11.0 Blood erythrocytes automated count (number/volume) 5.69 10*6/uL 4.35-5.85 Venous blood hemoglobin measurement (mass/volume) 13.5 g/dL 11.5-16.0 Blood hematocrit (volume fraction) 41 % 35-52 Automated erythrocyte mean corpuscular volume 71 [ foz_us] 80-99 Automated erythrocyte mean corpuscular h emoglobin (mass per erythrocyte) 24 pg 25-34 Automated erythrocyte mean corpuscular h emoglobin concentration measurement (mass/volume) 33 g/dL 32-36 Automated erythrocyte distribution width ratio 22. 5 % 10.0- 14.5 Automated blood platelet count (count/volume) 318 10*3/uL 130-400 Automated blood platelet mean volume measurement 10.0 [foz_us] 7.4-10.4 Automated blood neutrophils/100 leukocytes 88 % 42-75 Automated blood lymphocytes/100 leukocytes 3 % 12-44 Blood monocytes/100 leukocytes 8 % 0-12 Automated blood eosinophils/100 leukocytes 0 % 0-10 Automated blood basophils/100 leukocytes 0 % 0-10 Blood neutrophils automated count (number/volume) 38.1 10*3 1.8-7.8 Blood lymphocytes automated count (number/volume) 1.0 10*3 1.0-4.0 Blood monocytes automated count (number/volume) 3. 3 10*3 0.0-1.0 Automated eosinophil count 0.0 10*3/uL 0 .0-0.3 Automated blood basophil count (count/volume) 0.1 10*3/uL 0.0-0.1 Comprehensive metabolic panel - 03/04/20 17:40 Serum or plasma sodium measurement (moles/volume) 134 mmol/L 135-145 Serum or plasma potassium measurement (moles/volume) 4.3 mmol/L 3.6-5.0 Serum or plasma chloride measurement (moles/volume) 93 mmol/L 98-107 Carbon dioxide 22 mmol/L 21-32 Serum or plasma anion gap determination (moles/volume) 19 mmol/L 5-14 Serum or plasma urea nitrogen measurement (mass/volume ) 69 mg/dL 7-18 Serum or plasma creatinine measurement (mass/volume) 1.58 mg/dL 0.60-1.30 Serum or plasma urea nitrogen/creatinine mass ratio 44 NRG Serum or plasma creatinine measurement w ith calculation of estimated glomerular filtration rate 34 NRG Serum or plasma glucose measurement (mass/volume) 179 mg/dL 70-105 Serum or plasma calcium measurement (mass/volume) 9.5 mg/dL 8.5-10.1 Serum or plasma total bilirubin measurement (mass/volu me) 1.0 mg/dL 0.1-1.0 Serum or plasma alkaline phosphatase patrizia surement (enzymatic activity/volume) 111 U/L 40-136 Serum or plasma aspartate aminotransfera se measurement (enzymatic activity/volume) 20 U/L 5-34 Serum or plasma alanine aminotransferase measurement (enzymatic activity/volume) 20 U/L 0-55 Serum or plasma protein measurement (mass/volume) 7.3 g/dL 6.4-8.2 Serum or plasma albumin measurement (mass/volume) 3.8 g/dL 3.2-4.5 CALCIUM CORRECTED 9.7 mg/dL 8.5-10.1 Manual absolute plasma cell count - 07/16 17:40 Blood monocytes/100 leukocytes 0 % NRG Manual blood segmented neutrophils/100 leukocytes 95 % NRG Blood band neutrophils/100 leukocytes 1 % NRG Manual blood lymphocytes/100 leukocytes 4 % NRG Manual eosinophils/100 leukocytes in nose 0 % NRG Manual blood basophils/100 leukocytes 0 % NRG Blood poikilocytosis detection by light microscopy SLIGHT NRG Blood lactic acid measurement (moles/vol ume) - 03/04/20 18:00 Blood lactic acid measurement (moles/volume) 1.75 mmol/L 0.50-2.00 Complete urinalysis with reflex to cultu re - 03/04/20 18:10 Urine color determination YELLOW NRG Urine clarity determination CLOUDY NR G Urine pH measurement by test strip 6.0 5-9 Specific gravity of urine by test strip >= 1.016-1.022 Urine protein assay by test strip, semi-quantitative NEGATIVE NEGATIVE Urine glucose detection by automated test strip 1+ NEGATIVE Erythrocytes detection in urine sediment by light micr oscopy 1+ NEGATIVE Urine ketones detection by automated test strip NE GATIVE NEGATIVE Urine nitrite detection by test strip POSITIVE NEGATIVE Urine total bilirubin detection by test strip NEGA TIVE NEGATIVE Urine urobilinogen measurement by automated test strip (mass/volume) 0.2 mg/dL < = 1.0 Urine leukocyte esterase detection by dipstick NEG ATIVE NEGATIVE Automated urine sediment erythrocyte cou nt by microscopy (number/high power field) [HPF] NRG Automated urine sediment leukocyte count by microscopy (number/high power field) [HPF] NRG Bacteria detection in urine sediment by light microsco py LARGE NRG Squamous epithelial cells detection in u rine sediment by light microscopy 5-10 NRG Crystals detection in urine sediment by light microsco py NONE NRG Casts detection in urine sediment by light microscopy NONE NRG Mucus detection in urine sediment by light microscopy SMALL NRG Complete urinalysis with reflex to culture YES NRG Bacterial urine culture - 03/04/20 18:10 Bacterial urine culture [id number] NRG COLONY COUNT >100,000/ML NRG SUSCEPTIBILITY SUSCEPTIBILITY REPORTED 03/07/20 10: 05 NRG Dirithromycin susceptibility test by dis k diffusion - 03/04/20 18:10 Gentamicin susceptibility test by minimum inhibitory c oncentration <= NRG Trimethoprim/sulfamethoxazole susceptibi lity test by minimum inhibitoryconcentration <= NRG Levofloxacin susceptibility test by minimum inhibitory concentration > NRG Ampicillin susceptibility test by minimum inhibitory c oncentration <= NRG Cefazolin susceptibility test by minimum inhibitory co ncentration 2 NRG Ceftriaxone susceptibility test by minimum inhibitory concentration <= NRG Ciprofloxacin susceptibility test by minimum inhibitor y concentration > NRG Meropenem susceptibility test by minimum inhibitory co ncentration <= NRG Nitrofurantoin susceptibility test by mi nimum inhibitory concentration <= NRG Amoxicillin and clavulanate potassium susc LYNN <= NRG Methicillin resistant Staphylococcus aur eus (MRSA) screening culture - 03/04/20 21:40 Methicillin resistant Staphylococcus aureus (MRSA) scr eening culture NEG NRG Serum or plasma choriogonadotropin (preg armando test) detection - 03/04/20 22:32 Serum or plasma choriogonadotropin ( test) de tection NEGATIVE NEGATIVE Blood type T Indirect antibody screen pa yobani - 03/04/20 23:59 WRISTBAND NUMBER [id number] NRG ABO+Rh group OP NRG Blood group antibody screen NEGATIVE NR G Complete blood count (CBC) with automate d white blood cell (WBC) differential - 03/05/20 03:14 Blood leukocytes automated count (number/volume) 20.9 10*3/uL 4.3-11.0 Blood erythrocytes automated count (number/volume) 4.38 10*6/uL 4.35-5.85 Venous blood hemoglobin measurement (mass/volume) 10.4 g/dL 11.5-16.0 Blood hematocrit (volume fraction) 31 % 35-52 Automated erythrocyte mean corpuscular volume 70 [ foz_us] 80-99 Automated erythrocyte mean corpuscular h emoglobin (mass per erythrocyte) 24 pg 25-34 Automated erythrocyte mean corpuscular h emoglobin concentration measurement (mass/volume) 34 g/dL 32-36 Automated erythrocyte distribution width ratio 22. 1 % 10.0- 14.5 Automated blood platelet count (count/volume) 275 10*3/uL 130-400 Automated blood platelet mean volume measurement 10.1 [foz_us] 7.4-10.4 Automated blood neutrophils/100 leukocytes 89 % 42-75 Automated blood lymphocytes/100 leukocytes 5 % 12-44 Blood monocytes/100 leukocytes 6 % 0-12 Automated blood eosinophils/100 leukocytes 0 % 0-10 Automated blood basophils/100 leukocytes 0 % 0-10 Blood neutrophils automated count (number/volume) 18.7 10*3 1.8-7.8 Blood lymphocytes automated count (number/volume) 1.0 10*3 1.0-4.0 Blood monocytes automated count (number/volume) 1. 2 10*3 0.0-1.0 Automated eosinophil count 0.0 10*3/uL 0 .0-0.3 Automated blood basophil count (count/volume) 0.0 10*3/uL 0.0-0.1 Comprehensive metabolic panel - 03/05/20 03:14 Serum or plasma sodium measurement (moles/volume) 136 mmol/L 135-145 Serum or plasma potassium measurement (moles/volume) 3.9 mmol/L 3.6-5.0 Serum or plasma chloride measurement (moles/volume) 106 mmol/L 98-107 Carbon dioxide 17 mmol/L 21-32 Serum or plasma anion gap determination (moles/volume) 13 mmol/L 5-14 Serum or plasma urea nitrogen measurement (mass/volume ) 65 mg/dL 7-18 Serum or plasma creatinine measurement (mass/volume) 1.30 mg/dL 0.60-1.30 Serum or plasma urea nitrogen/creatinine mass ratio 50 NRG Serum or plasma creatinine measurement w ith calculation of estimated glomerular filtration rate 43 NRG Serum or plasma glucose measurement (mass/volume) 130 mg/dL 70-105 Serum or plasma calcium measurement (mass/volume) 7.0 mg/dL 8.5-10.1 Serum or plasma total bilirubin measurement (mass/volu me) 0.8 mg/dL 0.1-1.0 Serum or plasma alkaline phosphatase patrizia surement (enzymatic activity/volume) 74 U/L 40-136 Serum or plasma aspartate aminotransfera se measurement (enzymatic activity/volume) 18 U/L 5-34 Serum or plasma alanine aminotransferase measurement (enzymatic activity/volume) 15 U/L 0-55 Serum or plasma protein measurement (mass/volume) 4.3 g/dL 6.4-8.2 Serum or plasma albumin measurement (mass/volume) 2.3 g/dL 3.2-4.5 CALCIUM CORRECTED 8.4 mg/dL 8.5-10.1 Magnesium - 03/05/20 03:14 Magnesium 1.8 mg/dL 1.6-2.4 Serum or plasma troponin i.cardiac measu rement (mass/volume) - 03/05/20 03:14 Serum or plasma troponin i.cardiac measurement (mass/v olume) 0.030 ng/mL <0.028 Arterial blood gas measurement - 0 03:17 Blood pCO2 37 mm[Hg] 35-45 Blood pO2 112 mm[Hg] 79-93 Arterial blood bicarbonate measurement (moles/volume) 23 mmol/L 23-27 Arterial blood base excess by calculation -1.5 mmo l/L -2.5-2.5 Arterial blood oxygen saturation measurement 99 % 94-100 * Inhaled oxygen flow rate 30% NRG Arterial blood pH measurement with patient temperature correction 7.40 7.37-7.43 Arterial blood carbon dioxide, total measurement (mole s/volume) 23.9 mmol/L 21.0-31.0 Body site L RAD NRG Assessment of wrist artery patency prior to arterial p uncture YES-POS NRG Setting of ventilation mode YES NR G Measurement of body temperature 36.4 NRG Bacterial blood culture - 03/05/20 03:55 Bacterial blood culture NG NRG Blood lactic acid measurement (moles/vol ume) - 03/05/20 03:59 Blood lactic acid measurement (moles/volume) 1.66 mmol/L 0.50-2.00 Bacterial blood culture - 03/05/20 03:59 Bacterial blood culture NG NRG Bacterial blood culture - 03/05/20 04:08 Bacterial blood culture NG NRG Serum or plasma troponin i.cardiac measu rement (mass/volume) - 03/05/20 12:19 Serum or plasma troponin i.cardiac measurement (mass/v olume) 1.793 ng/mL <0.028 Arterial blood gas measurement - 0 16:44 Blood pCO2 31 mm[Hg] 35-45 Blood pO2 121 mm[Hg] 79-93 Arterial blood bicarbonate measurement (moles/volume) 23 mmol/L 23-27 Arterial blood base excess by calculation -0.6 mmo l/L -2.5-2.5 Arterial blood oxygen saturation measurement 99 % 94-100 * Inhaled oxygen flow rate 30% NRG Arterial blood pH measurement with patient temperature correction 7.48 7.37-7.43 Arterial blood carbon dioxide, total measurement (mole s/volume) 23.4 mmol/L 21.0-31.0 Body site ART LINE NRG Assessment of wrist artery patency prior to arterial p uncture N/A NRG Setting of ventilation mode YES NR G Measurement of body temperature 37.6 NRG Capillary blood glucose measurement by g lucometer (mass/volume) - 03/05/20 23:00 Capillary blood glucose measurement by glucometer (mas s/volume) 142 mg/dL 70-110 Complete blood count (CBC) with automate d white blood cell (WBC) differential - 03/06/20 03:03 Blood leukocytes automated count (number/volume) 17.4 10*3/uL 4.3-11.0 Blood erythrocytes automated count (number/volume) 3.79 10*6/uL 4.35-5.85 Venous blood hemoglobin measurement (mass/volume) 9.1 g/dL 11.5-16.0 Blood hematocrit (volume fraction) 27 % 35-52 Automated erythrocyte mean corpuscular volume 70 [ foz_us] 80-99 Automated erythrocyte mean corpuscular h emoglobin (mass per erythrocyte) 24 pg 25-34 Automated erythrocyte mean corpuscular h emoglobin concentration measurement (mass/volume) 34 g/dL 32-36 Automated erythrocyte distribution width ratio 22. 3 % 10.0- 14.5 Automated blood platelet count (count/volume) 383 10*3/uL 130-400 Automated blood platelet mean volume measurement 10.0 [foz_us] 7.4-10.4 Automated blood neutrophils/100 leukocytes 75 % 42-75 Automated blood lymphocytes/100 leukocytes 6 % 12-44 Blood monocytes/100 leukocytes 19 % 0-12 Automated blood eosinophils/100 leukocytes 1 % 0-10 Automated blood basophils/100 leukocytes 0 % 0-10 Blood neutrophils automated count (number/volume) 13.0 10*3 1.8-7.8 Blood lymphocytes automated count (number/volume) 1.0 10*3 1.0-4.0 Blood monocytes automated count (number/volume) 3. 2 10*3 0.0-1.0 Automated eosinophil count 0.1 10*3/uL 0 .0-0.3 Automated blood basophil count (count/volume) 0.0 10*3/uL 0.0-0.1 Whole blood basic metabolic panel - 02/25 03:03 Serum or plasma sodium measurement (moles/volume) 140 mmol/L 135-145 Serum or plasma potassium measurement (moles/volume) 3.5 mmol/L 3.6-5.0 Serum or plasma chloride measurement (moles/volume) 110 mmol/L 98-107 Carbon dioxide 19 mmol/L 21-32 Serum or plasma anion gap determination (moles/volume) 11 mmol/L 5-14 Serum or plasma urea nitrogen measurement (mass/volume ) 44 mg/dL 7-18 Serum or plasma creatinine measurement (mass/volume) 0.95 mg/dL 0.60-1.30 Serum or plasma urea nitrogen/creatinine mass ratio 46 NRG Serum or plasma creatinine measurement w ith calculation of estimated glomerular filtration rate > NRG Serum or plasma glucose measurement (mass/volume) 121 mg/dL 70-105 Serum or plasma calcium measurement (mass/volume) 7.2 mg/dL 8.5-10.1 Serum or plasma phosphate measurement (m ass/volume) - 03/06/20 03:03 Serum or plasma phosphate measurement (mass/volume) 2.1 mg/dL 2.3-4.7 Magnesium - 03/06/20 03:03 Magnesium 1.8 mg/dL 1.6-2.4 Capillary blood glucose measurement by g lucometer (mass/volume) - 03/06/20 11:36 Capillary blood glucose measurement by glucometer (mas s/volume) 127 mg/dL 70-110 Capillary blood glucose measurement by g lucometer (mass/volume) - 03/06/20 17:52 Capillary blood glucose measurement by glucometer (mas s/volume) 152 mg/dL 70-110 Complete blood count (CBC) with automate d white blood cell (WBC) differential - 03/07/20 02:16 Blood leukocytes automated count (number/volume) 15.7 10*3/uL 4.3-11.0 Blood erythrocytes automated count (number/volume) 3.69 10*6/uL 4.35-5.85 Venous blood hemoglobin measurement (mass/volume) 8.9 g/dL 11.5-16.0 Blood hematocrit (volume fraction) 26 % 35-52 Automated erythrocyte mean corpuscular volume 71 [ foz_us] 80-99 Automated erythrocyte mean corpuscular h emoglobin (mass per erythrocyte) 24 pg 25-34 Automated erythrocyte mean corpuscular h emoglobin concentration measurement (mass/volume) 34 g/dL 32-36 Automated erythrocyte distribution width ratio 23. 1 % 10.0- 14.5 Automated blood platelet count (count/volume) 319 10*3/uL 130-400 Automated blood platelet mean volume measurement 10.5 [foz_us] 7.4-10.4 Automated blood neutrophils/100 leukocytes 80 % 42-75 Automated blood lymphocytes/100 leukocytes 5 % 12-44 Blood monocytes/100 leukocytes 15 % 0-12 Automated blood eosinophils/100 leukocytes 1 % 0-10 Automated blood basophils/100 leukocytes 0 % 0-10 Blood neutrophils automated count (number/volume) 12.6 10*3 1.8-7.8 Blood lymphocytes automated count (number/volume) 0.8 10*3 1.0-4.0 Blood monocytes automated count (number/volume) 2. 3 10*3 0.0-1.0 Automated eosinophil count 0.1 10*3/uL 0 .0-0.3 Automated blood basophil count (count/volume) 0.0 10*3/uL 0.0-0.1 Whole blood basic metabolic panel - 02/25 12/16 02:16 Serum or plasma sodium measurement (moles/volume) 142 mmol/L 135-145 Serum or plasma potassium measurement (moles/volume) 3.7 mmol/L 3.6-5.0 Serum or plasma chloride measurement (moles/volume) 113 mmol/L 98-107 Carbon dioxide 18 mmol/L 21-32 Serum or plasma anion gap determination (moles/volume) 11 mmol/L 5-14 Serum or plasma urea nitrogen measurement (mass/volume ) 40 mg/dL 7-18 Serum or plasma creatinine measurement (mass/volume) 0.98 mg/dL 0.60-1.30 Serum or plasma urea nitrogen/creatinine mass ratio 41 NRG Serum or plasma creatinine measurement w ith calculation of estimated glomerular filtration rate 59 NRG Serum or plasma glucose measurement (mass/volume) 164 mg/dL 70-105 Serum or plasma calcium measurement (mass/volume) 7.0 mg/dL 8.5-10.1 Serum or plasma phosphate measurement (m ass/volume) - 03/07/20 02:16 Serum or plasma phosphate measurement (mass/volume) 3.0 mg/dL 2.3-4.7 Magnesium - 03/07/20 02:16 Magnesium 2.3 mg/dL 1.6-2.4 Complete urinalysis with reflex to cultu re - 03/07/20 06:25 Urine color determination BROWN NRG Urine clarity determination CLOUDY NR G Urine pH measurement by test strip 5.0 5-9 Specific gravity of urine by test strip 1.020 1.016-1.022 Urine protein assay by test strip, semi-quantitative 1+ NEGATIVE Urine glucose detection by automated test strip NE GATIVE NEGATIVE Erythrocytes detection in urine sediment by light micr oscopy NEGATIVE NEGATIVE Urine ketones detection by automated test strip TR BORIS NEGATIVE Urine nitrite detection by test strip NEGATIVE NEGATIVE Urine total bilirubin detection by test strip 1+ NEGATIVE Urine urobilinogen measurement by automated test strip (mass/volume) 1.0 mg/dL < = 1.0 Urine leukocyte esterase detection by dipstick TRA CE NEGATIVE Automated urine sediment erythrocyte cou nt by microscopy (number/high power field) NONE NRG Automated urine sediment leukocyte count by microscopy (number/high power field) [HPF] NRG Bacteria detection in urine sediment by light microsco py NEGATIVE NRG Squamous epithelial cells detection in u rine sediment by light microscopy 5-10 NRG Crystals detection in urine sediment by light microsco py PRESENT NRG Casts detection in urine sediment by light microscopy NONE NRG Mucus detection in urine sediment by light microscopy SMALL NRG Complete urinalysis with reflex to culture NO NRG Amorphous sediment detection in urine sediment by ligh t microscopy FEW CRISTOBAL URATES NRG Whole blood basic metabolic panel - 02/25 01/16 03:23 Serum or plasma sodium measurement (moles/volume) 138 mmol/L 135-145 Serum or plasma potassium measurement (moles/volume) 3.2 mmol/L 3.6-5.0 Serum or plasma chloride measurement (moles/volume) 111 mmol/L 98-107 Carbon dioxide 18 mmol/L 21-32 Serum or plasma anion gap determination (moles/volume) 9 mmol/L 5-14 Serum or plasma urea nitrogen measurement (mass/volume ) 34 mg/dL 7-18 Serum or plasma creatinine measurement (mass/volume) 0.80 mg/dL 0.60-1.30 Serum or plasma urea nitrogen/creatinine mass ratio 43 NRG Serum or plasma creatinine measurement w ith calculation of estimated glomerular filtration rate > NRG Serum or plasma glucose measurement (mass/volume) 103 mg/dL 70-105 Serum or plasma calcium measurement (mass/volume) 6.5 mg/dL 8.5-10.1 Serum or plasma phosphate measurement (m ass/volume) - 03/08/20 03:23 Serum or plasma phosphate measurement (mass/volume) 1.8 mg/dL 2.3-4.7 Magnesium - 03/08/20 03:23 Magnesium 1.9 mg/dL 1.6-2.4 Complete blood count (CBC) with automate d white blood cell (WBC) differential - 03/08/20 03:23 Blood leukocytes automated count (number/volume) 13.6 10*3/uL 4.3-11.0 Blood erythrocytes automated count (number/volume) 2.97 10*6/uL 4.35-5.85 Venous blood hemoglobin measurement (mass/volume) 7.1 g/dL 11.5-16.0 Blood hematocrit (volume fraction) 21 % 35-52 Automated erythrocyte mean corpuscular volume 71 [ foz_us] 80-99 Automated erythrocyte mean corpuscular h emoglobin (mass per erythrocyte) 24 pg 25-34 Automated erythrocyte mean corpuscular h emoglobin concentration measurement (mass/volume) 34 g/dL 32-36 Automated erythrocyte distribution width ratio 22. 5 % 10.0- 14.5 Automated blood platelet count (count/volume) 240 10*3/uL 130-400 Automated blood platelet mean volume measurement 9.2 [foz_us] 7.4-10.4 Automated blood neutrophils/100 leukocytes 79 % 42-75 Automated blood lymphocytes/100 leukocytes 7 % 12-44 Blood monocytes/100 leukocytes 13 % 0-12 Automated blood eosinophils/100 leukocytes 1 % 0-10 Automated blood basophils/100 leukocytes 0 % 0-10 Blood neutrophils automated count (number/volume) 10.7 10*3 1.8-7.8 Blood lymphocytes automated count (number/volume) 0.9 10*3 1.0-4.0 Blood monocytes automated count (number/volume) 1. 8 10*3 0.0-1.0 Automated eosinophil count 0.1 10*3/uL 0 .0-0.3 Automated blood basophil count (count/volume) 0.0 10*3/uL 0.0-0.1 RED CELLS LEUKO REDUCED AS1 - 03/08/20 1 8:53 RED CELLS LEUKO REDUCED AS1 T RANSFUSED 03/08/20 2106 NRG Blood type T Indirect antibody screen [facility] 03/08/20 18:53 WRISTBAND NUMBER [id number] NRG ABO+Rh group OP NRG Blood group antibody screen NEGATIVE NR G Whole blood hemoglobin and hematocrit [facility] 03/09/20 01:05 Venous blood hemoglobin measurement (mass/volume) 6.7 g/dL 11.5-16.0 Blood hematocrit (volume fraction) 20 % 35-52 Complete blood count (CBC) with automate d white blood cell (WBC) differential - 03/09/20 06:00 Blood leukocytes automated count (number/volume) 16.7 10*3/uL 4.3-11.0 Blood erythrocytes automated count (number/volume) 3.03 10*6/uL 4.35-5.85 Venous blood hemoglobin measurement (mass/volume) 7.7 g/dL 11.5-16.0 Blood hematocrit (volume fraction) 23 % 35-52 Automated erythrocyte mean corpuscular volume 75 [ foz_us] 80-99 Automated erythrocyte mean corpuscular h emoglobin (mass per erythrocyte) 25 pg 25-34 Automated erythrocyte mean corpuscular h emoglobin concentration measurement (mass/volume) 34 g/dL 32-36 Automated erythrocyte distribution width ratio 20. 8 % 10.0- 14.5 Automated blood platelet count (count/volume) 195 10*3/uL 130-400 Automated blood platelet mean volume measurement 9.5 [foz_us] 7.4-10.4 Automated blood neutrophils/100 leukocytes 81 % 42-75 Automated blood lymphocytes/100 leukocytes 6 % 12-44 Blood monocytes/100 leukocytes 12 % 0-12 Automated blood eosinophils/100 leukocytes 1 % 0-10 Automated blood basophils/100 leukocytes 0 % 0-10 Blood neutrophils automated count (number/volume) 13.6 10*3 1.8-7.8 Blood lymphocytes automated count (number/volume) 1.0 10*3 1.0-4.0 Blood monocytes automated count (number/volume) 2. 0 10*3 0.0-1.0 Automated eosinophil count 0.1 10*3/uL 0 .0-0.3 Automated blood basophil count (count/volume) 0.0 10*3/uL 0.0-0.1 Whole blood basic metabolic panel - 02/25 02/13 06:00 Serum or plasma sodium measurement (moles/volume) 138 mmol/L 135-145 Serum or plasma potassium measurement (moles/volume) 3.7 mmol/L 3.6-5.0 Serum or plasma chloride measurement (moles/volume) 110 mmol/L 98-107 Carbon dioxide 19 mmol/L 21-32 Serum or plasma anion gap determination (moles/volume) 9 mmol/L 5-14 Serum or plasma urea nitrogen measurement (mass/volume ) 28 mg/dL 7-18 Serum or plasma creatinine measurement (mass/volume) 0.75 mg/dL 0.60-1.30 Serum or plasma urea nitrogen/creatinine mass ratio 37 NRG Serum or plasma creatinine measurement w ith calculation of estimated glomerular filtration rate > NRG Serum or plasma glucose measurement (mass/volume) 83 mg/dL 70-105 Serum or plasma calcium measurement (mass/volume) 6.4 mg/dL 8.5-10.1 Whole blood basic metabolic panel - 02/25 03/16 04:00 Serum or plasma sodium measurement (moles/volume) 134 mmol/L 135-145 Serum or plasma potassium measurement (moles/volume) 3.3 mmol/L 3.6-5.0 Serum or plasma chloride measurement (moles/volume) 107 mmol/L 98-107 Carbon dioxide 20 mmol/L 21-32 Serum or plasma anion gap determination (moles/volume) 7 mmol/L 5-14 Serum or plasma urea nitrogen measurement (mass/volume ) 19 mg/dL 7-18 Serum or plasma creatinine measurement (mass/volume) 0.61 mg/dL 0.60-1.30 Serum or plasma urea nitrogen/creatinine mass ratio 31 NRG Serum or plasma creatinine measurement w ith calculation of estimated glomerular filtration rate > NRG Serum or plasma glucose measurement (mass/volume) 99 mg/dL 70-105 Serum or plasma calcium measurement (mass/volume) 6.3 mg/dL 8.5-10.1 Complete blood count (CBC) with automate d white blood cell (WBC) differential - 03/10/20 04:00 Blood leukocytes automated count (number/volume) 13.2 10*3/uL 4.3-11.0 Blood erythrocytes automated count (number/volume) 2.93 10*6/uL 4.35-5.85 Venous blood hemoglobin measurement (mass/volume) 7.5 g/dL 11.5-16.0 Blood hematocrit (volume fraction) 22 % 35-52 Automated erythrocyte mean corpuscular volume 75 [ foz_us] 80-99 Automated erythrocyte mean corpuscular h emoglobin (mass per erythrocyte) 26 pg 25-34 Automated erythrocyte mean corpuscular h emoglobin concentration measurement (mass/volume) 34 g/dL 32-36 Automated erythrocyte distribution width ratio 20. 1 % 10.0- 14.5 Automated blood platelet count (count/volume) 214 10*3/uL 130-400 Automated blood platelet mean volume measurement 9.5 [foz_us] 7.4-10.4 Automated blood neutrophils/100 leukocytes 84 % 42-75 Automated blood lymphocytes/100 leukocytes 6 % 12-44 Blood monocytes/100 leukocytes 9 % 0-12 Automated blood eosinophils/100 leukocytes 1 % 0-10 Automated blood basophils/100 leukocytes 0 % 0-10 Blood neutrophils automated count (number/volume) 11.1 10*3 1.8-7.8 Blood lymphocytes automated count (number/volume) 0.7 10*3 1.0-4.0 Blood monocytes automated count (number/volume) 1. 2 10*3 0.0-1.0 Automated eosinophil count 0.2 10*3/uL 0 .0-0.3 Automated blood basophil count (count/volume) 0.0 10*3/uL 0.0-0.1 Complete blood count (CBC) with automate d white blood cell (WBC) differential - 03/11/20 04:45 Blood leukocytes automated count (number/volume) 17.7 10*3/uL 4.3-11.0 Blood erythrocytes automated count (number/volume) 3.05 10*6/uL 4.35-5.85 Venous blood hemoglobin measurement (mass/volume) 7.9 g/dL 11.5-16.0 Blood hematocrit (volume fraction) 23 % 35-52 Automated erythrocyte mean corpuscular volume 75 [ foz_us] 80-99 Automated erythrocyte mean corpuscular h emoglobin (mass per erythrocyte) 26 pg 25-34 Automated erythrocyte mean corpuscular h emoglobin concentration measurement (mass/volume) 34 g/dL 32-36 Automated erythrocyte distribution width ratio 20. 8 % 10.0- 14.5 Automated blood platelet count (count/volume) 295 10*3/uL 130-400 Automated blood platelet mean volume measurement 8.9 [foz_us] 7.4-10.4 Automated blood neutrophils/100 leukocytes 84 % 42-75 Automated blood lymphocytes/100 leukocytes 5 % 12-44 Blood monocytes/100 leukocytes 10 % 0-12 Automated blood eosinophils/100 leukocytes 1 % 0-10 Automated blood basophils/100 leukocytes 0 % 0-10 Blood neutrophils automated count (number/volume) 14.8 10*3 1.8-7.8 Blood lymphocytes automated count (number/volume) 0.9 10*3 1.0-4.0 Blood monocytes automated count (number/volume) 1. 7 10*3 0.0-1.0 Automated eosinophil count 0.2 10*3/uL 0 .0-0.3 Automated blood basophil count (count/volume) 0.0 10*3/uL 0.0-0.1 Whole blood basic metabolic panel - 02/25 04/15 04:45 Serum or plasma sodium measurement (moles/volume) 135 mmol/L 135-145 Serum or plasma potassium measurement (moles/volume) 3.6 mmol/L 3.6-5.0 Serum or plasma chloride measurement (moles/volume) 107 mmol/L 98-107 Carbon dioxide 19 mmol/L 21-32 Serum or plasma anion gap determination (moles/volume) 9 mmol/L 5-14 Serum or plasma urea nitrogen measurement (mass/volume ) 11 mg/dL 7-18 Serum or plasma creatinine measurement (mass/volume) 0.54 mg/dL 0.60-1.30 Serum or plasma urea nitrogen/creatinine mass ratio 20 NRG Serum or plasma creatinine measurement w ith calculation of estimated glomerular filtration rate > NRG Serum or plasma glucose measurement (mass/volume) 95 mg/dL 70-105 Serum or plasma calcium measurement (mass/volume) 6.6 mg/dL 8.5-10.1 Manual absolute plasma cell count - 02/25 04/15 04:45 Blood monocytes/100 leukocytes 7 % NRG Manual blood segmented neutrophils/100 leukocytes 85 % NRG Manual blood lymphocytes/100 leukocytes 6 % NRG Manual eosinophils/100 leukocytes in nose 2 % NRG Blood anisocytosis detection by light microscopy S LIGHT NRG Blood ovalocytes detection by light microscopy SLI GHT NRG Blood poikilocytosis detection by light microscopy SLIGHT NRG Blood hypochromia detection by light microscopy SL IGHT NRG Blood nivia cells detection by light microscopy SLI GHT NRG Blood schistocytes detection by light microscopy S LIGHT NRG Complete blood count (CBC) with automate d white blood cell (WBC) differential - 03/12/20 05:40 Blood leukocytes automated count (number/volume) 21.3 10*3/uL 4.3-11.0 Blood erythrocytes automated count (number/volume) 3.07 10*6/uL 4.35-5.85 Venous blood hemoglobin measurement (mass/volume) 7.9 g/dL 11.5-16.0 Blood hematocrit (volume fraction) 23 % 35-52 Automated erythrocyte mean corpuscular volume 76 [ foz_us] 80-99 Automated erythrocyte mean corpuscular h emoglobin (mass per erythrocyte) 26 pg 25-34 Automated erythrocyte mean corpuscular h emoglobin concentration measurement (mass/volume) 34 g/dL 32-36 Automated erythrocyte distribution width ratio 21. 8 % 10.0- 14.5 Automated blood platelet count (count/volume) 382 10*3/uL 130-400 Automated blood platelet mean volume measurement 9.0 [foz_us] 7.4-10.4 Automated blood neutrophils/100 leukocytes 85 % 42-75 Automated blood lymphocytes/100 leukocytes 6 % 12-44 Blood monocytes/100 leukocytes 8 % 0-12 Automated blood eosinophils/100 leukocytes 1 % 0-10 Automated blood basophils/100 leukocytes 0 % 0-10 Blood neutrophils automated count (number/volume) 18.1 10*3 1.8-7.8 Blood lymphocytes automated count (number/volume) 1.2 10*3 1.0-4.0 Blood monocytes automated count (number/volume) 1. 7 10*3 0.0-1.0 Automated eosinophil count 0.3 10*3/uL 0 .0-0.3 Automated blood basophil count (count/volume) 0.0 10*3/uL 0.0-0.1 Whole blood basic metabolic panel - 02/25 05/16 05:40 Serum or plasma sodium measurement (moles/volume) 131 mmol/L 135-145 Serum or plasma potassium measurement (moles/volume) 4.0 mmol/L 3.6-5.0 Serum or plasma chloride measurement (moles/volume) 103 mmol/L 98-107 Carbon dioxide 19 mmol/L 21-32 Serum or plasma anion gap determination (moles/volume) 9 mmol/L 5-14 Serum or plasma urea nitrogen measurement (mass/volume ) 14 mg/dL 7-18 Serum or plasma creatinine measurement (mass/volume) 0.60 mg/dL 0.60-1.30 Serum or plasma urea nitrogen/creatinine mass ratio 23 NRG Serum or plasma creatinine measurement w ith calculation of estimated glomerular filtration rate > NRG Serum or plasma glucose measurement (mass/volume) 88 mg/dL 70-105 Serum or plasma calcium measurement (mass/volume) 6.7 mg/dL 8.5-10.1 Bacterial catheter tip culture - 0 13:20 Bacterial catheter tip culture NG NRG Complete blood count (CBC) with automate d white blood cell (WBC) differential - 03/13/20 05:30 Blood leukocytes automated count (number/volume) 20.9 10*3/uL 4.3-11.0 Blood erythrocytes automated count (number/volume) 3.23 10*6/uL 4.35-5.85 Venous blood hemoglobin measurement (mass/volume) 8.4 g/dL 11.5-16.0 Blood hematocrit (volume fraction) 25 % 35-52 Automated erythrocyte mean corpuscular volume 77 [ foz_us] 80-99 Automated erythrocyte mean corpuscular h emoglobin (mass per erythrocyte) 26 pg 25-34 Automated erythrocyte mean corpuscular h emoglobin concentration measurement (mass/volume) 34 g/dL 32-36 Automated erythrocyte distribution width ratio 22. 7 % 10.0- 14.5 Automated blood platelet count (count/volume) 501 10*3/uL 130-400 Automated blood platelet mean volume measurement 9.0 [foz_us] 7.4-10.4 Automated blood neutrophils/100 leukocytes 86 % 42-75 Automated blood lymphocytes/100 leukocytes 6 % 12-44 Blood monocytes/100 leukocytes 7 % 0-12 Automated blood eosinophils/100 leukocytes 1 % 0-10 Automated blood basophils/100 leukocytes 0 % 0-10 Blood neutrophils automated count (number/volume) 17.9 10*3 1.8-7.8 Blood lymphocytes automated count (number/volume) 1.3 10*3 1.0-4.0 Blood monocytes automated count (number/volume) 1. 4 10*3 0.0-1.0 Automated eosinophil count 0.3 10*3/uL 0 .0-0.3 Automated blood basophil count (count/volume) 0.0 10*3/uL 0.0-0.1 Whole blood basic metabolic panel - 02/25 06/15 05:30 Serum or plasma sodium measurement (moles/volume) 134 mmol/L 135-145 Serum or plasma potassium measurement (moles/volume) 4.2 mmol/L 3.6-5.0 Serum or plasma chloride measurement (moles/volume) 105 mmol/L 98-107 Carbon dioxide 19 mmol/L 21-32 Serum or plasma anion gap determination (moles/volume) 10 mmol/L 5-14 Serum or plasma urea nitrogen measurement (mass/volume ) 14 mg/dL 7-18 Serum or plasma creatinine measurement (mass/volume) 0.61 mg/dL 0.60-1.30 Serum or plasma urea nitrogen/creatinine mass ratio 23 NRG Serum or plasma creatinine measurement w ith calculation of estimated glomerular filtration rate > NRG Serum or plasma glucose measurement (mass/volume) 94 mg/dL 70-105 Serum or plasma calcium measurement (mass/volume) 7.0 mg/dL 8.5-10.1 Complete blood count (CBC) with automate d white blood cell (WBC) differential - 03/14/20 05:22 Blood leukocytes automated count (number/volume) 18.6 10*3/uL 4.3-11.0 Blood erythrocytes automated count (number/volume) 2.90 10*6/uL 4.35-5.85 Venous blood hemoglobin measurement (mass/volume) 7.6 g/dL 11.5-16.0 Blood hematocrit (volume fraction) 23 % 35-52 Automated erythrocyte mean corpuscular volume 78 [ foz_us] 80-99 Automated erythrocyte mean corpuscular h emoglobin (mass per erythrocyte) 26 pg 25-34 Automated erythrocyte mean corpuscular h emoglobin concentration measurement (mass/volume) 34 g/dL 32-36 Automated erythrocyte distribution width ratio 22. 8 % 10.0- 14.5 Automated blood platelet count (count/volume) 564 10*3/uL 130-400 Automated blood platelet mean volume measurement 8.9 [foz_us] 7.4-10.4 Automated blood neutrophils/100 leukocytes 82 % 42-75 Automated blood lymphocytes/100 leukocytes 8 % 12-44 Blood monocytes/100 leukocytes 9 % 0-12 Automated blood eosinophils/100 leukocytes 1 % 0-10 Automated blood basophils/100 leukocytes 0 % 0-10 Blood neutrophils automated count (number/volume) 15.2 10*3 1.8-7.8 Blood lymphocytes automated count (number/volume) 1.5 10*3 1.0-4.0 Blood monocytes automated count (number/volume) 1. 6 10*3 0.0-1.0 Automated eosinophil count 0.2 10*3/uL 0 .0-0.3 Automated blood basophil count (count/volume) 0.0 10*3/uL 0.0-0.1 Comprehensive metabolic panel - 03/14/20 05:22 Serum or plasma sodium measurement (moles/volume) 130 mmol/L 135-145 Serum or plasma potassium measurement (moles/volume) 4.1 mmol/L 3.6-5.0 Serum or plasma chloride measurement (moles/volume) 102 mmol/L 98-107 Carbon dioxide 19 mmol/L 21-32 Serum or plasma anion gap determination (moles/volume) 9 mmol/L 5-14 Serum or plasma urea nitrogen measurement (mass/volume ) 14 mg/dL 7-18 Serum or plasma creatinine measurement (mass/volume) 0.61 mg/dL 0.60-1.30 Serum or plasma urea nitrogen/creatinine mass ratio 23 NRG Serum or plasma creatinine measurement w ith calculation of estimated glomerular filtration rate > NRG Serum or plasma glucose measurement (mass/volume) 102 mg/dL 70-105 Serum or plasma calcium measurement (mass/volume) 6.8 mg/dL 8.5-10.1 Serum or plasma total bilirubin measurement (mass/volu me) 0.6 mg/dL 0.1-1.0 Serum or plasma alkaline phosphatase patrizia surement (enzymatic activity/volume) 87 U/L 40-136 Serum or plasma aspartate aminotransfera se measurement (enzymatic activity/volume) 23 U/L 5-34 Serum or plasma alanine aminotransferase measurement (enzymatic activity/volume) 19 U/L 0-55 Serum or plasma protein measurement (mass/volume) 4.9 g/dL 6.4-8.2 Serum or plasma albumin measurement (mass/volume) 2.0 g/dL 3.2-4.5 CALCIUM CORRECTED 8.4 mg/dL 8.5-10.1 IRON TEST - 03/14/20 05:22 Serum or plasma iron measurement (mass/volume) 21 % 33-167 Blood lactic acid measurement (moles/vol ume) - 03/14/20 09:00 Blood lactic acid measurement (moles/volume) 0.88 mmol/L 0.50-2.00 PROCALCITONIN (PCT) - 03/14/20 09:00 PROCALCITONIN (PCT) 0.46 ng/mL <0.10 Bacterial blood culture - 03/14/20 09:00 Bacterial blood culture NG NRG Bacterial blood culture - 03/14/20 09:05 Bacterial blood culture NG NRG Bacterial blood culture - 03/14/20 09:10 Bacterial blood culture NG NRG Complete urinalysis with reflex to cultu re - 03/14/20 11:45 Urine color determination YELLOW NRG Urine clarity determination CLEAR NR G Urine pH measurement by test strip 6.0 5-9 Specific gravity of urine by test strip <= 1.016-1.022 Urine protein assay by test strip, semi-quantitative NEGATIVE NEGATIVE Urine glucose detection by automated test strip NE GATIVE NEGATIVE Erythrocytes detection in urine sediment by light micr oscopy 1+ NEGATIVE Urine ketones detection by automated test strip NE GATIVE NEGATIVE Urine nitrite detection by test strip NEGATIVE NEGATIVE Urine total bilirubin detection by test strip NEGA TIVE NEGATIVE Urine urobilinogen measurement by automated test strip (mass/volume) 0.2 mg/dL < = 1.0 Urine leukocyte esterase detection by dipstick TRA CE NEGATIVE Automated urine sediment erythrocyte cou nt by microscopy (number/high power field) [HPF] NRG Automated urine sediment leukocyte count by microscopy (number/high power field) [HPF] NRG Bacteria detection in urine sediment by light microsco py NEGATIVE NRG Squamous epithelial cells detection in u rine sediment by light microscopy 2-5 NRG Crystals detection in urine sediment by light microsco py NONE NRG Casts detection in urine sediment by light microscopy NONE NRG Mucus detection in urine sediment by light microscopy NEGATIVE NRG Complete urinalysis with reflex to culture NO NRG Complete blood count (CBC) with automate d white blood cell (WBC) differential - 03/15/20 08:04 Blood leukocytes automated count (number/volume) 19.0 10*3/uL 4.3-11.0 Blood erythrocytes automated count (number/volume) 2.97 10*6/uL 4.35-5.85 Venous blood hemoglobin measurement (mass/volume) 7.7 g/dL 11.5-16.0 Blood hematocrit (volume fraction) 24 % 35-52 Automated erythrocyte mean corpuscular volume 79 [ foz_us] 80-99 Automated erythrocyte mean corpuscular h emoglobin (mass per erythrocyte) 26 pg 25-34 Automated erythrocyte mean corpuscular h emoglobin concentration measurement (mass/volume) 33 g/dL 32-36 Automated erythrocyte distribution width ratio 23. 7 % 10.0- 14.5 Automated blood platelet count (count/volume) 628 10*3/uL 130-400 Automated blood platelet mean volume measurement 8.5 [foz_us] 7.4-10.4 Automated blood neutrophils/100 leukocytes 83 % 42-75 Automated blood lymphocytes/100 leukocytes 7 % 12-44 Blood monocytes/100 leukocytes 8 % 0-12 Automated blood eosinophils/100 leukocytes 1 % 0-10 Automated blood basophils/100 leukocytes 0 % 0-10 Blood neutrophils automated count (number/volume) 15.9 10*3 1.8-7.8 Blood lymphocytes automated count (number/volume) 1.3 10*3 1.0-4.0 Blood monocytes automated count (number/volume) 1. 6 10*3 0.0-1.0 Automated eosinophil count 0.2 10*3/uL 0 .0-0.3 Automated blood basophil count (count/volume) 0.0 10*3/uL 0.0-0.1 Comprehensive metabolic panel - 03/15/20 08:04 Serum or plasma sodium measurement (moles/volume) 133 mmol/L 135-145 Serum or plasma potassium measurement (moles/volume) 4.1 mmol/L 3.6-5.0 Serum or plasma chloride measurement (moles/volume) 103 mmol/L 98-107 Carbon dioxide 20 mmol/L 21-32 Serum or plasma anion gap determination (moles/volume) 10 mmol/L 5-14 Serum or plasma urea nitrogen measurement (mass/volume ) 12 mg/dL 7-18 Serum or plasma creatinine measurement (mass/volume) 0.61 mg/dL 0.60-1.30 Serum or plasma urea nitrogen/creatinine mass ratio 20 NRG Serum or plasma creatinine measurement w ith calculation of estimated glomerular filtration rate > NRG Serum or plasma glucose measurement (mass/volume) 93 mg/dL 70-105 Serum or plasma calcium measurement (mass/volume) 7.0 mg/dL 8.5-10.1 Serum or plasma total bilirubin measurement (mass/volu me) 0.9 mg/dL 0.1-1.0 Serum or plasma alkaline phosphatase patrizia surement (enzymatic activity/volume) 93 U/L 40-136 Serum or plasma aspartate aminotransfera se measurement (enzymatic activity/volume) 21 U/L 5-34 Serum or plasma alanine aminotransferase measurement (enzymatic activity/volume) 18 U/L 0-55 Serum or plasma protein measurement (mass/volume) 5.2 g/dL 6.4-8.2 Serum or plasma albumin measurement (mass/volume) 2.1 g/dL 3.2-4.5 CALCIUM CORRECTED 8.5 mg/dL 8.5-10.1 Serum or plasma phosphate measurement (m ass/volume) - 03/15/20 08:04 Serum or plasma phosphate measurement (mass/volume) 2.8 mg/dL 2.3-4.7 Magnesium - 03/15/20 08:04 Magnesium 1.7 mg/dL 1.6-2.4 Vancomycin trough - 03/15/20 12:35 Vancomycin trough 27.5 ug/mL 10.0-20.0 Complete blood count (CBC) with automate d white blood cell (WBC) differential - 03/16/20 05:45 Blood leukocytes automated count (number/volume) 18.1 10*3/uL 4.3-11.0 Blood erythrocytes automated count (number/volume) 2.80 10*6/uL 4.35-5.85 Venous blood hemoglobin measurement (mass/volume) 7.2 g/dL 11.5-16.0 Blood hematocrit (volume fraction) 23 % 35-52 Automated erythrocyte mean corpuscular volume 81 [ foz_us] 80-99 Automated erythrocyte mean corpuscular h emoglobin (mass per erythrocyte) 26 pg 25-34 Automated erythrocyte mean corpuscular h emoglobin concentration measurement (mass/volume) 32 g/dL 32-36 Automated erythrocyte distribution width ratio 23. 6 % 10.0- 14.5 Automated blood platelet count (count/volume) 633 10*3/uL 130-400 Automated blood platelet mean volume measurement 8.6 [foz_us] 7.4-10.4 Automated blood neutrophils/100 leukocytes 84 % 42-75 Automated blood lymphocytes/100 leukocytes 7 % 12-44 Blood monocytes/100 leukocytes 8 % 0-12 Automated blood eosinophils/100 leukocytes 2 % 0-10 Automated blood basophils/100 leukocytes 0 % 0-10 Blood neutrophils automated count (number/volume) 15.2 10*3 1.8-7.8 Blood lymphocytes automated count (number/volume) 1.2 10*3 1.0-4.0 Blood monocytes automated count (number/volume) 1. 4 10*3 0.0-1.0 Automated eosinophil count 0.3 10*3/uL 0 .0-0.3 Automated blood basophil count (count/volume) 0.0 10*3/uL 0.0-0.1 Whole blood basic metabolic panel - 02/26 0 05:45 Serum or plasma sodium measurement (moles/volume) 133 mmol/L 135-145 Serum or plasma potassium measurement (moles/volume) 3.7 mmol/L 3.6-5.0 Serum or plasma chloride measurement (moles/volume) 105 mmol/L 98-107 Carbon dioxide 19 mmol/L 21-32 Serum or plasma anion gap determination (moles/volume) 9 mmol/L 5-14 Serum or plasma urea nitrogen measurement (mass/volume ) 11 mg/dL 7-18 Serum or plasma creatinine measurement (mass/volume) 0.59 mg/dL 0.60-1.30 Serum or plasma urea nitrogen/creatinine mass ratio 19 NRG Serum or plasma creatinine measurement w ith calculation of estimated glomerular filtration rate > NRG Serum or plasma glucose measurement (mass/volume) 103 mg/dL 70-105 Serum or plasma calcium measurement (mass/volume) 7.0 mg/dL 8.5-10.1 Serum or plasma phosphate measurement (m ass/volume) - 03/16/20 05:45 Serum or plasma phosphate measurement (mass/volume) 2.9 mg/dL 2.3-4.7 Magnesium - 03/16/20 05:45 Magnesium 1.7 mg/dL 1.6-2.4 Vancomycin trough - 03/16/20 05:45 Vancomycin trough 12.2 ug/mL 10.0-20.0 PT panel in platelet poor plasma by coag ulation assay - 03/16/20 05:45 Prothrombin time (PT) in platelet poor plasma by coagu lation assay 18.3 s 12.2-14.7 INR in platelet poor plasma or blood by coagulation as say 1.5 0.8-1.4 Body fluid cell count - 03/16/20 13:47 Specimen source identification of body fluid PERIT ON NRG Evaluation of color of body fluid RED NRG Determination of appearance of body fluid MOD BLDY NRG Body fluid leukocytes count (number/volume) 800 /u L NRG Body fluid erythrocytes count (number/volume) 1600 00 /uL NRG Manual body fluid polymorphonuclear cells/100 leukocyt es 50 % NRG Manual body fluid mononuclear cells/100 leukocytes 10 % NRG Manual body fluid lymphocytes/100 leukocytes 40 % NRG Glucose body fluid - 03/16/20 13:47 Glucose body fluid 94 mg/dL NRG Body fluid total protein measurement - 0 03/16/20 13:47 Body fluid total protein measurement 2.8 g/dL NRG Body fluid/serum or plasma lactate dehyd rogenase (LDH) ratio - 03/16/20 13:47 Body fluid/serum or plasma lactate dehydrogenase (LDH) ratio 586 U/L NRG Amylase body fluid - 03/16/20 13:47 Amylase body fluid 47 U/L NRG Creatinine body fluid - 03/16/20 13:47 Creatinine body fluid 0.51 mg/dL NRG Bacteria identification in isolate by an aerobe culture - 03/16/20 13:47 Bacteria identification in isolate by anaerobe culture CELIA NRG Gram stain microscopy - 03/16/20 13:47 Gram stain microscopy No bacteria seen NRG Bacteria identification in wound by cult ure - 03/16/20 13:47 Bacteria identification in wound by culture NG NRG Complete blood count (CBC) with automate d white blood cell (WBC) differential - 03/17/20 06:15 Blood leukocytes automated count (number/volume) 12.0 10*3/uL 4.3-11.0 Blood erythrocytes automated count (number/volume) 2.58 10*6/uL 4.35-5.85 Venous blood hemoglobin measurement (mass/volume) 6.6 g/dL 11.5-16.0 Blood hematocrit (volume fraction) 21 % 35-52 Automated erythrocyte mean corpuscular volume 82 [ foz_us] 80-99 Automated erythrocyte mean corpuscular h emoglobin (mass per erythrocyte) 26 pg 25-34 Automated erythrocyte mean corpuscular h emoglobin concentration measurement (mass/volume) 31 g/dL 32-36 Automated erythrocyte distribution width ratio 24. 4 % 10.0- 14.5 Automated blood platelet count (count/volume) 498 10*3/uL 130-400 Automated blood platelet mean volume measurement 8.4 [foz_us] 7.4-10.4 Automated blood neutrophils/100 leukocytes 81 % 42-75 Automated blood lymphocytes/100 leukocytes 8 % 12-44 Blood monocytes/100 leukocytes 9 % 0-12 Automated blood eosinophils/100 leukocytes 2 % 0-10 Automated blood basophils/100 leukocytes 0 % 0-10 Blood neutrophils automated count (number/volume) 9.7 10*3 1.8-7.8 Blood lymphocytes automated count (number/volume) 1.0 10*3 1.0-4.0 Blood monocytes automated count (number/volume) 1. 1 10*3 0.0-1.0 Automated eosinophil count 0.2 10*3/uL 0 .0-0.3 Automated blood basophil count (count/volume) 0.0 10*3/uL 0.0-0.1 Whole blood basic metabolic panel - 02/26 12/16 06:15 Serum or plasma sodium measurement (moles/volume) 136 mmol/L 135-145 Serum or plasma potassium measurement (moles/volume) 3.7 mmol/L 3.6-5.0 Serum or plasma chloride measurement (moles/volume) 108 mmol/L 98-107 Carbon dioxide 19 mmol/L 21-32 Serum or plasma anion gap determination (moles/volume) 9 mmol/L 5-14 Serum or plasma urea nitrogen measurement (mass/volume ) 8 mg/dL 7-18 Serum or plasma creatinine measurement (mass/volume) 0.56 mg/dL 0.60-1.30 Serum or plasma urea nitrogen/creatinine mass ratio 14 NRG Serum or plasma creatinine measurement w ith calculation of estimated glomerular filtration rate > NRG Serum or plasma glucose measurement (mass/volume) 88 mg/dL 70-105 Serum or plasma calcium measurement (mass/volume) 7.1 mg/dL 8.5-10.1 Serum or plasma phosphate measurement (m ass/volume) - 03/17/20 06:15 Serum or plasma phosphate measurement (mass/volume) 3.3 mg/dL 2.3-4.7 Magnesium - 03/17/20 06:15 Magnesium 1.6 mg/dL 1.6-2.4 RED CELLS LEUKO REDUCED AS1 - 03/17/20 1 0:00 RED CELLS LEUKO REDUCED AS1 T RANSFUSED 03/17/20 1052 NRG Blood type T Indirect antibody screen pa yobani - 03/17/20 10:00 WRISTBAND NUMBER [id number] NRG ABO+Rh group OP NRG Blood group antibody screen NEGATIVE NR G Complete blood count (CBC) with automate d white blood cell (WBC) differential - 03/18/20 07:25 Blood leukocytes automated count (number/volume) 12.9 10*3/uL 4.3-11.0 Blood erythrocytes automated count (number/volume) 3.55 10*6/uL 4.35-5.85 Venous blood hemoglobin measurement (mass/volume) 9.6 g/dL 11.5-16.0 Blood hematocrit (volume fraction) 29 % 35-52 Automated erythrocyte mean corpuscular volume 83 [ foz_us] 80-99 Automated erythrocyte mean corpuscular h emoglobin (mass per erythrocyte) 27 pg 25-34 Automated erythrocyte mean corpuscular h emoglobin concentration measurement (mass/volume) 33 g/dL 32-36 Automated erythrocyte distribution width ratio 22. 0 % 10.0- 14.5 Automated blood platelet count (count/volume) 506 10*3/uL 130-400 Automated blood platelet mean volume measurement 8.5 [foz_us] 7.4-10.4 Automated blood neutrophils/100 leukocytes 81 % 42-75 Automated blood lymphocytes/100 leukocytes 9 % 12-44 Blood monocytes/100 leukocytes 9 % 0-12 Automated blood eosinophils/100 leukocytes 2 % 0-10 Automated blood basophils/100 leukocytes 0 % 0-10 Blood neutrophils automated count (number/volume) 10.4 10*3 1.8-7.8 Blood lymphocytes automated count (number/volume) 1.1 10*3 1.0-4.0 Blood monocytes automated count (number/volume) 1. 1 10*3 0.0-1.0 Automated eosinophil count 0.2 10*3/uL 0 .0-0.3 Automated blood basophil count (count/volume) 0.0 10*3/uL 0.0-0.1 Whole blood basic metabolic panel - 02/26 01/16 07:25 Serum or plasma sodium measurement (moles/volume) 134 mmol/L 135-145 Serum or plasma potassium measurement (moles/volume) 3.8 mmol/L 3.6-5.0 Serum or plasma chloride measurement (moles/volume) 109 mmol/L 98-107 Carbon dioxide 16 mmol/L 21-32 Serum or plasma anion gap determination (moles/volume) 9 mmol/L 5-14 Serum or plasma urea nitrogen measurement (mass/volume ) 8 mg/dL 7-18 Serum or plasma creatinine measurement (mass/volume) 0.60 mg/dL 0.60-1.30 Serum or plasma urea nitrogen/creatinine mass ratio 13 NRG Serum or plasma creatinine measurement w ith calculation of estimated glomerular filtration rate > NRG Serum or plasma glucose measurement (mass/volume) 110 mg/dL 70-105 Serum or plasma calcium measurement (mass/volume) 7.3 mg/dL 8.5-10.1 Serum or plasma phosphate measurement (m ass/volume) - 03/18/20 07:25 Serum or plasma phosphate measurement (mass/volume) 3.0 mg/dL 2.3-4.7 Magnesium - 03/18/20 07:25 Magnesium 1.7 mg/dL 1.6-2.4 Complete blood count (CBC) with automate d white blood cell (WBC) differential - 03/19/20 06:30 Blood leukocytes automated count (number/volume) 10.9 10*3/uL 4.3-11.0 Blood erythrocytes automated count (number/volume) 3.62 10*6/uL 4.35-5.85 Venous blood hemoglobin measurement (mass/volume) 9.8 g/dL 11.5-16.0 Blood hematocrit (volume fraction) 30 % 35-52 Automated erythrocyte mean corpuscular volume 83 [ foz_us] 80-99 Automated erythrocyte mean corpuscular h emoglobin (mass per erythrocyte) 27 pg 25-34 Automated erythrocyte mean corpuscular h emoglobin concentration measurement (mass/volume) 33 g/dL 32-36 Automated erythrocyte distribution width ratio 22. 5 % 10.0- 14.5 Automated blood platelet count (count/volume) 430 10*3/uL 130-400 Automated blood platelet mean volume measurement 8.2 [foz_us] 7.4-10.4 Automated blood neutrophils/100 leukocytes 81 % 42-75 Automated blood lymphocytes/100 leukocytes 8 % 12-44 Blood monocytes/100 leukocytes 8 % 0-12 Automated blood eosinophils/100 leukocytes 3 % 0-10 Automated blood basophils/100 leukocytes 0 % 0-10 Blood neutrophils automated count (number/volume) 8.7 10*3 1.8-7.8 Blood lymphocytes automated count (number/volume) 0.9 10*3 1.0-4.0 Blood monocytes automated count (number/volume) 0. 9 10*3 0.0-1.0 Automated eosinophil count 0.3 10*3/uL 0 .0-0.3 Automated blood basophil count (count/volume) 0.0 10*3/uL 0.0-0.1 Whole blood basic metabolic panel - 02/26 02/13 06:30 Serum or plasma sodium measurement (moles/volume) 137 mmol/L 135-145 Serum or plasma potassium measurement (moles/volume) 3.8 mmol/L 3.6-5.0 Serum or plasma chloride measurement (moles/volume) 112 mmol/L 98-107 Carbon dioxide 15 mmol/L 21-32 Serum or plasma anion gap determination (moles/volume) 10 mmol/L 5-14 Serum or plasma urea nitrogen measurement (mass/volume ) 8 mg/dL 7-18 Serum or plasma creatinine measurement (mass/volume) 0.62 mg/dL 0.60-1.30 Serum or plasma urea nitrogen/creatinine mass ratio 13 NRG Serum or plasma creatinine measurement w ith calculation of estimated glomerular filtration rate > NRG Serum or plasma glucose measurement (mass/volume) 100 mg/dL 70-105 Serum or plasma calcium measurement (mass/volume) 7.5 mg/dL 8.5-10.1 Serum or plasma phosphate measurement (m ass/volume) - 03/19/20 06:30 Serum or plasma phosphate measurement (mass/volume) 3.1 mg/dL 2.3-4.7 Magnesium - 03/19/20 06:30 Magnesium 1.8 mg/dL 1.6-2.4 Manual absolute plasma cell count - 02/26 02/13 06:30 Blood monocytes/100 leukocytes 8 % NRG Manual blood segmented neutrophils/100 leukocytes 85 % NRG Blood band neutrophils/100 leukocytes 2 % NRG Manual blood lymphocytes/100 leukocytes 4 % NRG Manual eosinophils/100 leukocytes in nose 1 % NRG Blood anisocytosis detection by light microscopy S LIGHT NRG Blood poikilocytosis detection by light microscopy SLIGHT NRG Blood nivia cells detection by light microscopy SLI GHT NRG Complete blood count (CBC) with automate d white blood cell (WBC) differential - 03/20/20 06:35 Blood leukocytes automated count (number/volume) 9.4 10*3/uL 4.3-11.0 Blood erythrocytes automated count (number/volume) 3.54 10*6/uL 4.35-5.85 Venous blood hemoglobin measurement (mass/volume) 9.6 g/dL 11.5-16.0 Blood hematocrit (volume fraction) 30 % 35-52 Automated erythrocyte mean corpuscular volume 84 [ foz_us] 80-99 Automated erythrocyte mean corpuscular h emoglobin (mass per erythrocyte) 27 pg 25-34 Automated erythrocyte mean corpuscular h emoglobin concentration measurement (mass/volume) 32 g/dL 32-36 Automated erythrocyte distribution width ratio 22. 4 % 10.0- 14.5 Automated blood platelet count (count/volume) 381 10*3/uL 130-400 Automated blood platelet mean volume measurement 8.2 [foz_us] 7.4-10.4 Automated blood neutrophils/100 leukocytes 79 % 42-75 Automated blood lymphocytes/100 leukocytes 9 % 12-44 Blood monocytes/100 leukocytes 10 % 0-12 Automated blood eosinophils/100 leukocytes 2 % 0-10 Automated blood basophils/100 leukocytes 0 % 0-10 Blood neutrophils automated count (number/volume) 7.5 10*3 1.8-7.8 Blood lymphocytes automated count (number/volume) 0.8 10*3 1.0-4.0 Blood monocytes automated count (number/volume) 0. 9 10*3 0.0-1.0 Automated eosinophil count 0.2 10*3/uL 0 .0-0.3 Automated blood basophil count (count/volume) 0.0 10*3/uL 0.0-0.1 Whole blood basic metabolic panel - 02/26 03/16 06:35 Serum or plasma sodium measurement (moles/volume) 136 mmol/L 135-145 Serum or plasma potassium measurement (moles/volume) 3.8 mmol/L 3.6-5.0 Serum or plasma chloride measurement (moles/volume) 112 mmol/L 98-107 Carbon dioxide 15 mmol/L 21-32 Serum or plasma anion gap determination (moles/volume) 9 mmol/L 5-14 Serum or plasma urea nitrogen measurement (mass/volume ) 9 mg/dL 7-18 Serum or plasma creatinine measurement (mass/volume) 0.60 mg/dL 0.60-1.30 Serum or plasma urea nitrogen/creatinine mass ratio 15 NRG Serum or plasma creatinine measurement w ith calculation of estimated glomerular filtration rate > NRG Serum or plasma glucose measurement (mass/volume) 91 mg/dL 70-105 Serum or plasma calcium measurement (mass/volume) 7.4 mg/dL 8.5-10.1 Serum or plasma phosphate measurement (m ass/volume) - 03/20/20 06:35 Serum or plasma phosphate measurement (mass/volume) 3.1 mg/dL 2.3-4.7 Magnesium - 03/20/20 06:35 Magnesium 1.9 mg/dL 1.6-2.4 Complete blood count (CBC) with automate d white blood cell (WBC) differential - 03/21/20 06:30 Blood leukocytes automated count (number/volume) 10.0 10*3/uL 4.3-11.0 Blood erythrocytes automated count (number/volume) 3.62 10*6/uL 4.35-5.85 Venous blood hemoglobin measurement (mass/volume) 9.8 g/dL 11.5-16.0 Blood hematocrit (volume fraction) 31 % 35-52 Automated erythrocyte mean corpuscular volume 85 [ foz_us] 80-99 Automated erythrocyte mean corpuscular h emoglobin (mass per erythrocyte) 27 pg 25-34 Automated erythrocyte mean corpuscular h emoglobin concentration measurement (mass/volume) 32 g/dL 32-36 Automated erythrocyte distribution width ratio 22. 4 % 10.0- 14.5 Automated blood platelet count (count/volume) 359 10*3/uL 130-400 Automated blood platelet mean volume measurement 8.9 [foz_us] 7.4-10.4 Automated blood neutrophils/100 leukocytes 82 % 42-75 Automated blood lymphocytes/100 leukocytes 8 % 12-44 Blood monocytes/100 leukocytes 9 % 0-12 Automated blood eosinophils/100 leukocytes 1 % 0-10 Automated blood basophils/100 leukocytes 0 % 0-10 Blood neutrophils automated count (number/volume) 8.2 10*3 1.8-7.8 Blood lymphocytes automated count (number/volume) 0.8 10*3 1.0-4.0 Blood monocytes automated count (number/volume) 0. 9 10*3 0.0-1.0 Automated eosinophil count 0.1 10*3/uL 0 .0-0.3 Automated blood basophil count (count/volume) 0.0 10*3/uL 0.0-0.1 Whole blood basic metabolic panel - 02/26 04/15 06:30 Serum or plasma sodium measurement (moles/volume) 138 mmol/L 135-145 Serum or plasma potassium measurement (moles/volume) 4.0 mmol/L 3.6-5.0 Serum or plasma chloride measurement (moles/volume) 114 mmol/L 98-107 Carbon dioxide 15 mmol/L 21-32 Serum or plasma anion gap determination (moles/volume) 9 mmol/L 5-14 Serum or plasma urea nitrogen measurement (mass/volume ) 9 mg/dL 7-18 Serum or plasma creatinine measurement (mass/volume) 0.60 mg/dL 0.60-1.30 Serum or plasma urea nitrogen/creatinine mass ratio 15 NRG Serum or plasma creatinine measurement w ith calculation of estimated glomerular filtration rate > NRG Serum or plasma glucose measurement (mass/volume) 94 mg/dL 70-105 Serum or plasma calcium measurement (mass/volume) 7.7 mg/dL 8.5-10.1 Serum or plasma phosphate measurement (m ass/volume) - 03/21/20 06:30 Serum or plasma phosphate measurement (mass/volume) 3.1 mg/dL 2.3-4.7 Magnesium - 03/21/20 06:30 Magnesium 1.8 mg/dL 1.6-2.4 Complete blood count (CBC) with automate d white blood cell (WBC) differential - 03/22/20 06:45 Blood leukocytes automated count (number/volume) 8.8 10*3/uL 4.3-11.0 Blood erythrocytes automated count (number/volume) 3.62 10*6/uL 4.35-5.85 Venous blood hemoglobin measurement (mass/volume) 10.0 g/dL 11.5-16.0 Blood hematocrit (volume fraction) 31 % 35-52 Automated erythrocyte mean corpuscular volume 84 [ foz_us] 80-99 Automated erythrocyte mean corpuscular h emoglobin (mass per erythrocyte) 28 pg 25-34 Automated erythrocyte mean corpuscular h emoglobin concentration measurement (mass/volume) 33 g/dL 32-36 Automated erythrocyte distribution width ratio 22. 0 % 10.0- 14.5 Automated blood platelet count (count/volume) 353 10*3/uL 130-400 Automated blood platelet mean volume measurement 8.4 [foz_us] 7.4-10.4 Automated blood neutrophils/100 leukocytes 80 % 42-75 Automated blood lymphocytes/100 leukocytes 9 % 12-44 Blood monocytes/100 leukocytes 10 % 0-12 Automated blood eosinophils/100 leukocytes 1 % 0-10 Automated blood basophils/100 leukocytes 0 % 0-10 Blood neutrophils automated count (number/volume) 7.0 10*3 1.8-7.8 Blood lymphocytes automated count (number/volume) 0.8 10*3 1.0-4.0 Blood monocytes automated count (number/volume) 0. 9 10*3 0.0-1.0 Automated eosinophil count 0.1 10*3/uL 0 .0-0.3 Automated blood basophil count (count/volume) 0.0 10*3/uL 0.0-0.1 Whole blood basic metabolic panel - 02/26 05/16 06:45 Serum or plasma sodium measurement (moles/volume) 135 mmol/L 135-145 Serum or plasma potassium measurement (moles/volume) 3.8 mmol/L 3.6-5.0 Serum or plasma chloride measurement (moles/volume) 112 mmol/L 98-107 Carbon dioxide 15 mmol/L 21-32 Serum or plasma anion gap determination (moles/volume) 8 mmol/L 5-14 Serum or plasma urea nitrogen measurement (mass/volume ) 7 mg/dL 7-18 Serum or plasma creatinine measurement (mass/volume) 0.61 mg/dL 0.60-1.30 Serum or plasma urea nitrogen/creatinine mass ratio 11 NRG Serum or plasma creatinine measurement w ith calculation of estimated glomerular filtration rate > NRG Serum or plasma glucose measurement (mass/volume) 102 mg/dL 70-105 Serum or plasma calcium measurement (mass/volume) 7.8 mg/dL 8.5-10.1 Serum or plasma phosphate measurement (m ass/volume) - 03/22/20 06:45 Serum or plasma phosphate measurement (mass/volume) 3.0 mg/dL 2.3-4.7 Magnesium - 03/22/20 06:45 Magnesium 2.0 mg/dL 1.6-2.4 Complete blood count (CBC) with automate d white blood cell (WBC) differential - 03/23/20 06:35 Blood leukocytes automated count (number/volume) 10.4 10*3/uL 4.3-11.0 Blood erythrocytes automated count (number/volume) 3.87 10*6/uL 4.35-5.85 Venous blood hemoglobin measurement (mass/volume) 10.6 g/dL 11.5-16.0 Blood hematocrit (volume fraction) 33 % 35-52 Automated erythrocyte mean corpuscular volume 85 [ foz_us] 80-99 Automated erythrocyte mean corpuscular h emoglobin (mass per erythrocyte) 27 pg 25-34 Automated erythrocyte mean corpuscular h emoglobin concentration measurement (mass/volume) 32 g/dL 32-36 Automated erythrocyte distribution width ratio 21. 8 % 10.0- 14.5 Automated blood platelet count (count/volume) 386 10*3/uL 130-400 Automated blood platelet mean volume measurement 8.7 [foz_us] 7.4-10.4 Automated blood neutrophils/100 leukocytes 81 % 42-75 Automated blood lymphocytes/100 leukocytes 7 % 12-44 Blood monocytes/100 leukocytes 9 % 0-12 Automated blood eosinophils/100 leukocytes 2 % 0-10 Automated blood basophils/100 leukocytes 0 % 0-10 Blood neutrophils automated count (number/volume) 8.4 10*3 1.8-7.8 Blood lymphocytes automated count (number/volume) 0.8 10*3 1.0-4.0 Blood monocytes automated count (number/volume) 0. 9 10*3 0.0-1.0 Automated eosinophil count 0.2 10*3/uL 0 .0-0.3 Automated blood basophil count (count/volume) 0.0 10*3/uL 0.0-0.1 Comprehensive metabolic panel - 03/23/20 06:35 Serum or plasma sodium measurement (moles/volume) 136 mmol/L 135-145 Serum or plasma potassium measurement (moles/volume) 4.0 mmol/L 3.6-5.0 Serum or plasma chloride measurement (moles/volume) 112 mmol/L 98-107 Carbon dioxide 16 mmol/L 21-32 Serum or plasma anion gap determination (moles/volume) 8 mmol/L 5-14 Serum or plasma urea nitrogen measurement (mass/volume ) 9 mg/dL 7-18 Serum or plasma creatinine measurement (mass/volume) 0.66 mg/dL 0.60-1.30 Serum or plasma urea nitrogen/creatinine mass ratio 14 NRG Serum or plasma creatinine measurement w ith calculation of estimated glomerular filtration rate > NRG Serum or plasma glucose measurement (mass/volume) 102 mg/dL 70-105 Serum or plasma calcium measurement (mass/volume) 8.2 mg/dL 8.5-10.1 Serum or plasma total bilirubin measurement (mass/volu me) 0.8 mg/dL 0.1-1.0 Serum or plasma alkaline phosphatase patrizia surement (enzymatic activity/volume) 158 U/L 40-136 Serum or plasma aspartate aminotransfera se measurement (enzymatic activity/volume) 24 U/L 5-34 Serum or plasma alanine aminotransferase measurement (enzymatic activity/volume) 25 U/L 0-55 Serum or plasma protein measurement (mass/volume) 7.0 g/dL 6.4-8.2 Serum or plasma albumin measurement (mass/volume) 2.7 g/dL 3.2-4.5 CALCIUM CORRECTED 9.2 mg/dL 8.5-10.1 Complete blood count (CBC) with automate d white blood cell (WBC) differential - 03/25/20 04:45 Blood leukocytes automated count (number/volume) 10.1 10*3/uL 4.3-11.0 Blood erythrocytes automated count (number/volume) 3.68 10*6/uL 4.35-5.85 Venous blood hemoglobin measurement (mass/volume) 10.2 g/dL 11.5-16.0 Blood hematocrit (volume fraction) 31 % 35-52 Automated erythrocyte mean corpuscular volume 85 [ foz_us] 80-99 Automated erythrocyte mean corpuscular h emoglobin (mass per erythrocyte) 28 pg 25-34 Automated erythrocyte mean corpuscular h emoglobin concentration measurement (mass/volume) 33 g/dL 32-36 Automated erythrocyte distribution width ratio 21. 1 % 10.0- 14.5 Automated blood platelet count (count/volume) 423 10*3/uL 130-400 Automated blood platelet mean volume measurement 8.5 [foz_us] 7.4-10.4 Automated blood neutrophils/100 leukocytes 80 % 42-75 Automated blood lymphocytes/100 leukocytes 8 % 12-44 Blood monocytes/100 leukocytes 10 % 0-12 Automated blood eosinophils/100 leukocytes 1 % 0-10 Automated blood basophils/100 leukocytes 0 % 0-10 Blood neutrophils automated count (number/volume) 8.1 10*3 1.8-7.8 Blood lymphocytes automated count (number/volume) 0.9 10*3 1.0-4.0 Blood monocytes automated count (number/volume) 1. 1 10*3 0.0-1.0 Automated eosinophil count 0.1 10*3/uL 0 .0-0.3 Automated blood basophil count (count/volume) 0.0 10*3/uL 0.0-0.1 Complete blood count (CBC) with automate d white blood cell (WBC) differential - 03/27/20 05:45 Blood leukocytes automated count (number/volume) 9.5 10*3/uL 4.3-11.0 Blood erythrocytes automated count (number/volume) 3.96 10*6/uL 4.35-5.85 Venous blood hemoglobin measurement (mass/volume) 10.8 g/dL 11.5-16.0 Blood hematocrit (volume fraction) 34 % 35-52 Automated erythrocyte mean corpuscular volume 85 [ foz_us] 80-99 Automated erythrocyte mean corpuscular h emoglobin (mass per erythrocyte) 27 pg 25-34 Automated erythrocyte mean corpuscular h emoglobin concentration measurement (mass/volume) 32 g/dL 32-36 Automated erythrocyte distribution width ratio 19. 9 % 10.0- 14.5 Automated blood platelet count (count/volume) 469 10*3/uL 130-400 Automated blood platelet mean volume measurement 8.6 [foz_us] 7.4-10.4 Automated blood neutrophils/100 leukocytes 77 % 42-75 Automated blood lymphocytes/100 leukocytes 9 % 12-44 Blood monocytes/100 leukocytes 11 % 0-12 Automated blood eosinophils/100 leukocytes 2 % 0-10 Automated blood basophils/100 leukocytes 0 % 0-10 Blood neutrophils automated count (number/volume) 7.3 10*3 1.8-7.8 Blood lymphocytes automated count (number/volume) 0.9 10*3 1.0-4.0 Blood monocytes automated count (number/volume) 1. 1 10*3 0.0-1.0 Automated eosinophil count 0.2 10*3/uL 0 .0-0.3 Automated blood basophil count (count/volume) 0.0 10*3/uL 0.0-0.1 Comprehensive metabolic panel - 03/27/20 05:45 Serum or plasma sodium measurement (moles/volume) 130 mmol/L 135-145 Serum or plasma potassium measurement (moles/volume) 4.8 mmol/L 3.6-5.0 Serum or plasma chloride measurement (moles/volume) 102 mmol/L 98-107 Carbon dioxide 14 mmol/L 21-32 Serum or plasma anion gap determination (moles/volume) 14 mmol/L 5-14 Serum or plasma urea nitrogen measurement (mass/volume ) 35 mg/dL 7-18 Serum or plasma creatinine measurement (mass/volume) 1.81 mg/dL 0.60-1.30 Serum or plasma urea nitrogen/creatinine mass ratio 19 NRG Serum or plasma creatinine measurement w ith calculation of estimated glomerular filtration rate 29 NRG Serum or plasma glucose measurement (mass/volume) 101 mg/dL 70-105 Serum or plasma calcium measurement (mass/volume) 8.6 mg/dL 8.5-10.1 Serum or plasma total bilirubin measurement (mass/volu me) 0.7 mg/dL 0.1-1.0 Serum or plasma alkaline phosphatase patrizia surement (enzymatic activity/volume) 224 U/L 40-136 Serum or plasma aspartate aminotransfera se measurement (enzymatic activity/volume) 26 U/L 5-34 Serum or plasma alanine aminotransferase measurement (enzymatic activity/volume) 30 U/L 0-55 Serum or plasma protein measurement (mass/volume) 7.8 g/dL 6.4-8.2 Serum or plasma albumin measurement (mass/volume) 3.0 g/dL 3.2-4.5 CALCIUM CORRECTED 9.4 mg/dL 8.5-10.1 Comprehensive metabolic panel - 03/28/20 06:50 Serum or plasma sodium measurement (moles/volume) 130 mmol/L 135-145 Serum or plasma potassium measurement (moles/volume) 4.5 mmol/L 3.6-5.0 Serum or plasma chloride measurement (moles/volume) 106 mmol/L 98-107 Carbon dioxide 14 mmol/L 21-32 Serum or plasma anion gap determination (moles/volume) 10 mmol/L 5-14 Serum or plasma urea nitrogen measurement (mass/volume ) 37 mg/dL 7-18 Serum or plasma creatinine measurement (mass/volume) 1.59 mg/dL 0.60-1.30 Serum or plasma urea nitrogen/creatinine mass ratio 23 NRG Serum or plasma creatinine measurement w ith calculation of estimated glomerular filtration rate 34 NRG Serum or plasma glucose measurement (mass/volume) 98 mg/dL 70-105 Serum or plasma calcium measurement (mass/volume) 8.1 mg/dL 8.5-10.1 Serum or plasma total bilirubin measurement (mass/volu me) 0.5 mg/dL 0.1-1.0 Serum or plasma alkaline phosphatase patrizia surement (enzymatic activity/volume) 204 U/L 40-136 Serum or plasma aspartate aminotransfera se measurement (enzymatic activity/volume) 18 U/L 5-34 Serum or plasma alanine aminotransferase measurement (enzymatic activity/volume) 25 U/L 0-55 Serum or plasma protein measurement (mass/volume) 7.3 g/dL 6.4-8.2 Serum or plasma albumin measurement (mass/volume) 2.9 g/dL 3.2-4.5 CALCIUM CORRECTED 9.0 mg/dL 8.5-10.1 Complete blood count (CBC) with automate d white blood cell (WBC) differential - 03/30/20 06:05 Blood leukocytes automated count (number/volume) 6.2 10*3/uL 4.3-11.0 Blood erythrocytes automated count (number/volume) 3.39 10*6/uL 4.35-5.85 Venous blood hemoglobin measurement (mass/volume) 9.4 g/dL 11.5-16.0 Blood hematocrit (volume fraction) 29 % 35-52 Automated erythrocyte mean corpuscular volume 86 [ foz_us] 80-99 Automated erythrocyte mean corpuscular h emoglobin (mass per erythrocyte) 28 pg 25-34 Automated erythrocyte mean corpuscular h emoglobin concentration measurement (mass/volume) 32 g/dL 32-36 Automated erythrocyte distribution width ratio 19. 7 % 10.0- 14.5 Automated blood platelet count (count/volume) 267 10*3/uL 130-400 Automated blood platelet mean volume measurement 8.5 [foz_us] 7.4-10.4 Automated blood neutrophils/100 leukocytes 76 % 42-75 Automated blood lymphocytes/100 leukocytes 10 % 12-44 Blood monocytes/100 leukocytes 11 % 0-12 Automated blood eosinophils/100 leukocytes 3 % 0-10 Automated blood basophils/100 leukocytes 1 % 0-10 Blood neutrophils automated count (number/volume) 4.7 10*3 1.8-7.8 Blood lymphocytes automated count (number/volume) 0.6 10*3 1.0-4.0 Blood monocytes automated count (number/volume) 0. 7 10*3 0.0-1.0 Automated eosinophil count 0.2 10*3/uL 0 .0-0.3 Automated blood basophil count (count/volume) 0.0 10*3/uL 0.0-0.1 Comprehensive metabolic panel - 03/30/20 06:05 Serum or plasma sodium measurement (moles/volume) 133 mmol/L 135-145 Serum or plasma potassium measurement (moles/volume) 4.2 mmol/L 3.6-5.0 Serum or plasma chloride measurement (moles/volume) 110 mmol/L 98-107 Carbon dioxide 15 mmol/L 21-32 Serum or plasma anion gap determination (moles/volume) 8 mmol/L 5-14 Serum or plasma urea nitrogen measurement (mass/volume ) 23 mg/dL 7-18 Serum or plasma creatinine measurement (mass/volume) 0.74 mg/dL 0.60-1.30 Serum or plasma urea nitrogen/creatinine mass ratio 31 NRG Serum or plasma creatinine measurement w ith calculation of estimated glomerular filtration rate > NRG Serum or plasma glucose measurement (mass/volume) 104 mg/dL 70-105 Serum or plasma calcium measurement (mass/volume) 7.7 mg/dL 8.5-10.1 Serum or plasma total bilirubin measurement (mass/volu me) 0.3 mg/dL 0.1-1.0 Serum or plasma alkaline phosphatase patrizia surement (enzymatic activity/volume) 160 U/L 40-136 Serum or plasma aspartate aminotransfera se measurement (enzymatic activity/volume) 17 U/L 5-34 Serum or plasma alanine aminotransferase measurement (enzymatic activity/volume) 19 U/L 0-55 Serum or plasma protein measurement (mass/volume) 6.3 g/dL 6.4-8.2 Serum or plasma albumin measurement (mass/volume) 2.5 g/dL 3.2-4.5 CALCIUM CORRECTED 8.9 mg/dL 8.5-10.1 Complete blood count (CBC) with automate d white blood cell (WBC) differential - 04/05/20 06:40 Blood leukocytes automated count (number/volume) 6.6 10*3/uL 4.3-11.0 Blood erythrocytes automated count (number/volume) 3.58 10*6/uL 4.35-5.85 Venous blood hemoglobin measurement (mass/volume) 9.8 g/dL 11.5-16.0 Blood hematocrit (volume fraction) 30 % 35-52 Automated erythrocyte mean corpuscular volume 84 [ foz_us] 80-99 Automated erythrocyte mean corpuscular h emoglobin (mass per erythrocyte) 27 pg 25-34 Automated erythrocyte mean corpuscular h emoglobin concentration measurement (mass/volume) 33 g/dL 32-36 Automated erythrocyte distribution width ratio 18. 6 % 10.0- 14.5 Automated blood platelet count (count/volume) 189 10*3/uL 130-400 Automated blood platelet mean volume measurement 9.2 [foz_us] 7.4-10.4 Automated blood neutrophils/100 leukocytes 76 % 42-75 Automated blood lymphocytes/100 leukocytes 12 % 12-44 Blood monocytes/100 leukocytes 9 % 0-12 Automated blood eosinophils/100 leukocytes 2 % 0-10 Automated blood basophils/100 leukocytes 0 % 0-10 Blood neutrophils automated count (number/volume) 5.0 10*3 1.8-7.8 Blood lymphocytes automated count (number/volume) 0.8 10*3 1.0-4.0 Blood monocytes automated count (number/volume) 0. 6 10*3 0.0-1.0 Automated eosinophil count 0.2 10*3/uL 0 .0-0.3 Automated blood basophil count (count/volume) 0.0 10*3/uL 0.0-0.1 Comprehensive metabolic panel - 04/05/20 06:40 Serum or plasma sodium measurement (moles/volume) 136 mmol/L 135-145 Serum or plasma potassium measurement (moles/volume) 4.1 mmol/L 3.6-5.0 Serum or plasma chloride measurement (moles/volume) 108 mmol/L 98-107 Carbon dioxide 19 mmol/L 21-32 Serum or plasma anion gap determination (moles/volume) 9 mmol/L 5-14 Serum or plasma urea nitrogen measurement (mass/volume ) 17 mg/dL 7-18 Serum or plasma creatinine measurement (mass/volume) 0.77 mg/dL 0.60-1.30 Serum or plasma urea nitrogen/creatinine mass ratio 22 NRG Serum or plasma creatinine measurement w ith calculation of estimated glomerular filtration rate > NRG Serum or plasma glucose measurement (mass/volume) 98 mg/dL 70-105 Serum or plasma calcium measurement (mass/volume) 8.0 mg/dL 8.5-10.1 Serum or plasma total bilirubin measurement (mass/volu me) 0.3 mg/dL 0.1-1.0 Serum or plasma alkaline phosphatase patrizia surement (enzymatic activity/volume) 173 U/L 40-136 Serum or plasma aspartate aminotransfera se measurement (enzymatic activity/volume) 18 U/L 5-34 Serum or plasma alanine aminotransferase measurement (enzymatic activity/volume) 20 U/L 0-55 Serum or plasma protein measurement (mass/volume) 6.8 g/dL 6.4-8.2 Serum or plasma albumin measurement (mass/volume) 2.9 g/dL 3.2-4.5 CALCIUM CORRECTED 8.9 mg/dL 8.5-10.1 Complete blood count (CBC) with automate d white blood cell (WBC) differential - 05/26/20 14:35 Blood leukocytes automated count (number/volume) 9.1 10*3/uL 4.3-11.0 Blood erythrocytes automated count (number/volume) 4.73 10*6/uL 4.35-5.85 Venous blood hemoglobin measurement (mass/volume) 12.9 g/dL 11.5-16.0 Blood hematocrit (volume fraction) 40 % 35-52 Automated erythrocyte mean corpuscular volume 85 [ foz_us] 80-99 Automated erythrocyte mean corpuscular h emoglobin (mass per erythrocyte) 27 pg 25-34 Automated erythrocyte mean corpuscular h emoglobin concentration measurement (mass/volume) 32 g/dL 32-36 Automated erythrocyte distribution width ratio 14. 0 % 10.0- 14.5 Automated blood platelet count (count/volume) 341 10*3/uL 130-400 Automated blood platelet mean volume measurement 9.1 [foz_us] 7.4-10.4 Automated blood neutrophils/100 leukocytes 78 % 42-75 Automated blood lymphocytes/100 leukocytes 12 % 12-44 Blood monocytes/100 leukocytes 7 % 0-12 Automated blood eosinophils/100 leukocytes 2 % 0-10 Automated blood basophils/100 leukocytes 1 % 0-10 Blood neutrophils automated count (number/volume) 7.0 10*3 1.8-7.8 Blood lymphocytes automated count (number/volume) 1.1 10*3 1.0-4.0 Blood monocytes automated count (number/volume) 0. 6 10*3 0.0-1.0 Automated eosinophil count 0.2 10*3/uL 0 .0-0.3 Automated blood basophil count (count/volume) 0.1 10*3/uL 0.0-0.1 Comprehensive metabolic panel - 05/26/20 14:35 Serum or plasma sodium measurement (moles/volume) 138 mmol/L 135-145 Serum or plasma potassium measurement (moles/volume) 4.5 mmol/L 3.6-5.0 Serum or plasma chloride measurement (moles/volume) 103 mmol/L 98-107 Carbon dioxide 22 mmol/L 21-32 Serum or plasma anion gap determination (moles/volume) 13 mmol/L 5-14 Serum or plasma urea nitrogen measurement (mass/volume ) 19 mg/dL 7-18 Serum or plasma creatinine measurement (mass/volume) 0.92 mg/dL 0.60-1.30 Serum or plasma urea nitrogen/creatinine mass ratio 21 NRG Serum or plasma creatinine measurement w ith calculation of estimated glomerular filtration rate > NRG Serum or plasma glucose measurement (mass/volume) 99 mg/dL 70-105 Serum or plasma calcium measurement (mass/volume) 9.6 mg/dL 8.5-10.1 Serum or plasma total bilirubin measurement (mass/volu me) 0.5 mg/dL 0.1-1.0 Serum or plasma alkaline phosphatase patrizia surement (enzymatic activity/volume) 124 U/L 40-136 Serum or plasma aspartate aminotransfera se measurement (enzymatic activity/volume) 16 U/L 5-34 Serum or plasma alanine aminotransferase measurement (enzymatic activity/volume) 14 U/L 0-55 Serum or plasma protein measurement (mass/volume) 8.1 g/dL 6.4-8.2 Serum or plasma albumin measurement (mass/volume) 3.9 g/dL 3.2-4.5 CALCIUM CORRECTED 9.7 mg/dL 8.5-10.1 THYROID STIMULATING HORMONE - 05/26/20 1 4:35 THYROID STIMULATING HORMONE 2.73 u[iU]/mL 0.35-4.94 Coronavirus SARS-CoV-2 SO 2018 - 0 10:06 Coronavirus Ab [Units/volume] in Serum Negative Negative Methicillin resistant Staphylococcus aur eus (MRSA) screening culture - 06/24/20 06:58 Methicillin resistant Staphylococcus aureus (MRSA) scr eening culture NEG NRG Complete blood count (CBC) with automate d white blood cell (WBC) differential - 06/24/20 07:03 Blood leukocytes automated count (number/volume) 7.3 10*3/uL 4.3-11.0 Blood erythrocytes automated count (number/volume) 4.98 10*6/uL 4.35-5.85 Venous blood hemoglobin measurement (mass/volume) 13.9 g/dL 11.5-16.0 Blood hematocrit (volume fraction) 40 % 35-52 Automated erythrocyte mean corpuscular volume 79 [ foz_us] 80-99 Automated erythrocyte mean corpuscular h emoglobin (mass per erythrocyte) 28 pg 25-34 Automated erythrocyte mean corpuscular h emoglobin concentration measurement (mass/volume) 35 g/dL 32-36 Automated erythrocyte distribution width ratio 14. 9 % 10.0- 14.5 Automated blood platelet count (count/volume) 288 10*3/uL 130-400 Automated blood platelet mean volume measurement 10.7 [foz_us] 7.4-10.4 Automated blood neutrophils/100 leukocytes 72 % 42-75 Automated blood lymphocytes/100 leukocytes 14 % 12-44 Blood monocytes/100 leukocytes 11 % 0-12 Automated blood eosinophils/100 leukocytes 3 % 0-10 Automated blood basophils/100 leukocytes 0 % 0-10 Blood neutrophils automated count (number/volume) 5.2 10*3 1.8-7.8 Blood lymphocytes automated count (number/volume) 1.0 10*3 1.0-4.0 Blood monocytes automated count (number/volume) 0. 8 10*3 0.0-1.0 Automated eosinophil count 0.2 10*3/uL 0 .0-0.3 Automated blood basophil count (count/volume) 0.0 10*3/uL 0.0-0.1 Blood type T Indirect antibody screen [facility] - 06/24/20 07:03 WRISTBAND NUMBER [id number] NRG ABO+Rh group OP NRG Blood group antibody screen NEGATIVE NR G Serum or plasma choriogonadotropin (preg armando test) detection - 06/24/20 07:55 Serum or plasma choriogonadotropin ( test) de tection NEGATIVE NEGATIVE Serum or plasma creatinine measurement ( mass/volume) - 06/24/20 07:55 Serum or plasma creatinine measurement (mass/volume) 0.99 mg/dL 0.60-1.30 Whole blood hemoglobin and hematocrit [facility] - 06/29/20 04:29 Venous blood hemoglobin measurement (mass/volume) 11.0 g/dL 11.5-16.0 Blood hematocrit (volume fraction) 33 % 35-52 Complete blood count (CBC) with automate d white blood cell (WBC) differential - 06/29/20 14:23 Blood leukocytes automated count (number/volume) 10.4 10*3/uL 4.3-11.0 Blood erythrocytes automated count (number/volume) 3.50 10*6/uL 4.35-5.85 Venous blood hemoglobin measurement (mass/volume) 9.7 g/dL 11.5-16.0 Blood hematocrit (volume fraction) 29 % 35-52 Automated erythrocyte mean corpuscular volume 82 [ foz_us] 80-99 Automated erythrocyte mean corpuscular h emoglobin (mass per erythrocyte) 28 pg 25-34 Automated erythrocyte mean corpuscular h emoglobin concentration measurement (mass/volume) 34 g/dL 32-36 Automated erythrocyte distribution width ratio 14. 8 % 10.0- 14.5 Automated blood platelet count (count/volume) 310 10*3/uL 130-400 Automated blood platelet mean volume measurement 8.9 [foz_us] 7.4-10.4 Automated blood neutrophils/100 leukocytes 88 % 42-75 Automated blood lymphocytes/100 leukocytes 3 % 12-44 Blood monocytes/100 leukocytes 9 % 0-12 Automated blood eosinophils/100 leukocytes 0 % 0-10 Automated blood basophils/100 leukocytes 0 % 0-10 Blood neutrophils automated count (number/volume) 9.1 10*3 1.8-7.8 Blood lymphocytes automated count (number/volume) 0.3 10*3 1.0-4.0 Blood monocytes automated count (number/volume) 1. 0 10*3 0.0-1.0 Automated eosinophil count 0.0 10*3/uL 0 .0-0.3 Automated blood basophil count (count/volume) 0.0 10*3/uL 0.0-0.1 Comprehensive metabolic panel - 06/29/20 14:23 Serum or plasma sodium measurement (moles/volume) 135 mmol/L 135-145 Serum or plasma potassium measurement (moles/volume) 4.1 mmol/L 3.6-5.0 Serum or plasma chloride measurement (moles/volume) 106 mmol/L 98-107 Carbon dioxide 19 mmol/L 21-32 Serum or plasma anion gap determination (moles/volume) 10 mmol/L 5-14 Serum or plasma urea nitrogen measurement (mass/volume ) 32 mg/dL 7-18 Serum or plasma creatinine measurement (mass/volume) 0.93 mg/dL 0.60-1.30 Serum or plasma urea nitrogen/creatinine mass ratio 34 NRG Serum or plasma creatinine measurement w ith calculation of estimated glomerular filtration rate > NRG Serum or plasma glucose measurement (mass/volume) 125 mg/dL 70-105 Serum or plasma calcium measurement (mass/volume) 9.0 mg/dL 8.5-10.1 Serum or plasma total bilirubin measurement (mass/volu me) 0.6 mg/dL 0.1-1.0 Serum or plasma alkaline phosphatase patrizia surement (enzymatic activity/volume) 147 U/L 40-136 Serum or plasma aspartate aminotransfera se measurement (enzymatic activity/volume) 22 U/L 5-34 Serum or plasma alanine aminotransferase measurement (enzymatic activity/volume) 18 U/L 0-55 Serum or plasma protein measurement (mass/volume) 7.1 g/dL 6.4-8.2 Serum or plasma albumin measurement (mass/volume) 3.5 g/dL 3.2-4.5 CALCIUM CORRECTED 9.4 mg/dL 8.5-10.1 Complete urinalysis with reflex to cultu re - 06/29/20 18:30 Urine color determination YELLOW NRG Urine clarity determination SL CLOUDY N RG Urine pH measurement by test strip 6.0 5-9 Specific gravity of urine by test strip 1.025 1.016-1.022 Urine protein assay by test strip, semi-quantitative 2+ NEGATIVE Urine glucose detection by automated test strip NE GATIVE NEGATIVE Erythrocytes detection in urine sediment by light micr oscopy 1+ NEGATIVE Urine ketones detection by automated test strip TR BORIS NEGATIVE Urine nitrite detection by test strip NEGATIVE NEGATIVE Urine total bilirubin detection by test strip NEGA TIVE NEGATIVE Urine urobilinogen measurement by automated test strip (mass/volume) 0.2 mg/dL < = 1.0 Urine leukocyte esterase detection by dipstick 1+ NEGATIVE Automated urine sediment erythrocyte cou nt by microscopy (number/high power field) RARE NRG Automated urine sediment leukocyte count by microscopy (number/high power field) [HPF] NRG Bacteria detection in urine sediment by light microsco py MODERATE NRG Squamous epithelial cells detection in u rine sediment by light microscopy 5-10 NRG Crystals detection in urine sediment by light microsco py NONE NRG Casts detection in urine sediment by light microscopy PRESENT NRG Mucus detection in urine sediment by light microscopy NEGATIVE NRG Complete urinalysis with reflex to culture YES NRG Hyaline casts detection in urine sediment by light lynn roscopy RARE NRG Bacterial urine culture - 06/29/20 18:30 Bacterial urine culture [id number] NRG COLONY COUNT . NRG SUSCEPTIBILITY REPORTED PREDOMINANT BY RML AND NRG MRSA SCREEN SUSCEPTIBILTIY REPORTED 07/01/20 11:15 NRG RAPID ID PRELIM RAPID ID TESTING AT [facility] NRG Dirithromycin susceptibility test by dis k diffusion - 06/29/20 18:30 Gentamicin susceptibility test by minimum inhibitory c oncentration <= NRG Trimethoprim/sulfamethoxazole susceptibi lity test by minimum inhibitoryconcentration > NRG Levofloxacin susceptibility test by minimum inhibitory concentration > NRG Ampicillin susceptibility test by minimum inhibitory c oncentration > NRG Cefazolin susceptibility test by minimum inhibitory co ncentration 4 NRG Ceftriaxone susceptibility test by minimum inhibitory concentration <= NRG Ciprofloxacin susceptibility test by minimum inhibitor y concentration > NRG Meropenem susceptibility test by minimum inhibitory co ncentration <= NRG Nitrofurantoin susceptibility test by mi nimum inhibitory concentration <= NRG Amoxicillin and clavulanate potassium susc LYNN = NRG Complete blood count (CBC) with automate d white blood cell (WBC) differential - 06/30/20 05:32 Blood leukocytes automated count (number/volume) 8.9 10*3/uL 4.3-11.0 Blood erythrocytes automated count (number/volume) 3.54 10*6/uL 4.35-5.85 Venous blood hemoglobin measurement (mass/volume) 9.8 g/dL 11.5-16.0 Blood hematocrit (volume fraction) 29 % 35-52 Automated erythrocyte mean corpuscular volume 82 [ foz_us] 80-99 Automated erythrocyte mean corpuscular h emoglobin (mass per erythrocyte) 28 pg 25-34 Automated erythrocyte mean corpuscular h emoglobin concentration measurement (mass/volume) 34 g/dL 32-36 Automated erythrocyte distribution width ratio 14. 8 % 10.0- 14.5 Automated blood platelet count (count/volume) 288 10*3/uL 130-400 Automated blood platelet mean volume measurement 9.3 [foz_us] 7.4-10.4 Automated blood neutrophils/100 leukocytes 83 % 42-75 Automated blood lymphocytes/100 leukocytes 6 % 12-44 Blood monocytes/100 leukocytes 11 % 0-12 Automated blood eosinophils/100 leukocytes 0 % 0-10 Automated blood basophils/100 leukocytes 0 % 0-10 Blood neutrophils automated count (number/volume) 7.4 10*3 1.8-7.8 Blood lymphocytes automated count (number/volume) 0.5 10*3 1.0-4.0 Blood monocytes automated count (number/volume) 1. 0 10*3 0.0-1.0 Automated eosinophil count 0.0 10*3/uL 0 .0-0.3 Automated blood basophil count (count/volume) 0.0 10*3/uL 0.0-0.1 Comprehensive metabolic panel - 06/30/20 05:32 Serum or plasma sodium measurement (moles/volume) 135 mmol/L 135-145 Serum or plasma potassium measurement (moles/volume) 4.2 mmol/L 3.6-5.0 Serum or plasma chloride measurement (moles/volume) 107 mmol/L 98-107 Carbon dioxide 18 mmol/L 21-32 Serum or plasma anion gap determination (moles/volume) 10 mmol/L 5-14 Serum or plasma urea nitrogen measurement (mass/volume ) 26 mg/dL 7-18 Serum or plasma creatinine measurement (mass/volume) 0.84 mg/dL 0.60-1.30 Serum or plasma urea nitrogen/creatinine mass ratio 31 NRG Serum or plasma creatinine measurement w ith calculation of estimated glomerular filtration rate > NRG Serum or plasma glucose measurement (mass/volume) 131 mg/dL 70-105 Serum or plasma calcium measurement (mass/volume) 8.7 mg/dL 8.5-10.1 Serum or plasma total bilirubin measurement (mass/volu me) 0.5 mg/dL 0.1-1.0 Serum or plasma alkaline phosphatase patrizia surement (enzymatic activity/volume) 180 U/L 40-136 Serum or plasma aspartate aminotransfera se measurement (enzymatic activity/volume) 22 U/L 5-34 Serum or plasma alanine aminotransferase measurement (enzymatic activity/volume) 23 U/L 0-55 Serum or plasma protein measurement (mass/volume) 6.7 g/dL 6.4-8.2 Serum or plasma albumin measurement (mass/volume) 3.2 g/dL 3.2-4.5 CALCIUM CORRECTED 9.3 mg/dL 8.5-10.1 Manual absolute plasma cell count - 03/16 05:32 Blood monocytes/100 leukocytes 10 % NRG Manual blood segmented neutrophils/100 leukocytes 84 % NRG Manual blood lymphocytes/100 leukocytes 6 % NRG Blood anisocytosis detection by light microscopy S LIGHT NRG Blood poikilocytosis detection by light microscopy SLIGHT NRG Blood hypochromia detection by light microscopy SL IGHT NRG Blood microcytes detection by light microscopy SLI GHT NRG Encounters ACCT No. Visit Date/Time Discharge Status Pt. Type Provider Facility Loc./Unit Complaint [id number] 06/24/2020 06:23:00 13:59:00 DIS Inpatient SHEILA DE OLIVEIRA DO [facility] 4TH ILEOSTOMY [id number] 06/19/2020 10:46:00 23:59:59 CLS Outpatient CALVIN DE OLIVEIRA DOIC B [facility] LAB FS PRE OP REQUIREMENT [id number] 06/17/2020 05:41:00 13:56:00 DIS Outpatient CALVIN DE OLIVEIRA DOIC B [facility] PREOP ILEOSTOMY [id number] 05/26/2020 14:21:00 23:59:59 CLS Outpatient BENJI WILLOGUHBYP [facility] LAB FS HTN [id number] 03/13/2020 11:35:00 14:15:00 DIS Inpatient BEEBE , SESAR [facility] IRF DEBILITY [id number] 03/04/2020 20:27:00 11:05:00 DIS Inpatient SHEILA DE OLIVEIRA DO B [facility] 4TH ISCHEMIC BOWEL,HX CAD,A KI [id number] 03/04/2020 17:29:00 17:29:00 CAN Preadmit ANNIE GONZALEZ DO [facility] ER FS CONSTIPATION [id number] 11/11/2019 14:29:00 019 17:00:00 DIS Emergency RAY COPPOLA, MIHAELA Blake [facility] ER FS TACHY; ELEV BP [id number] 07/03/2020 21:41:[address] Emergency ANNIE GONZALEZ DO [facility] ER FS BROKEN OPEN INCISION
--- NOTE | 2020-07-03 22:05 | ED Abdominal Pain ---
General Chief Complaint: Abdominal/GI Problems Stated Complaint: BROKEN OPEN INCISION Nursing Triage Note: Pt had an ileostomy reversal done this past week at [place]. Pt presents tonight with a portion of her bowel protruding through the incision. Sepsis Screen: No Definite Risk Source of Information: Patient Exam Limitations: No Limitations (ANNIE MENDOSA DO) History of Present Illness Date Seen by Provider: Jul 03, 2020 Time Seen by Provider: 21:49 Initial Comments 51-year-old female presents via POV to the ER with complaint of a "lump under her bandage". Patient had an ileostomy reversal on [address] De Oliveira. Today was changing her bandage about 9 p.m. and noted the mass. No significant pain, however moderate concerned and came to the ER. Patient last ate around 730 p.m. tonight. No recent fever or chills, no nausea vomiting. Bowel movements have been normal. (ANNIE MENDOSA DO) Allergies and Home Medications Allergies Coded Allergies: No Known Drug Allergies (Unverified , 11/11/19) Home Medications Alprazolam 0.25 Mg Tablet, 0.25 MG PO Q8H PRN for ANXIETY, (Reported) Lisinopril 20 Mg Tablet, 20 MG PO BID, (Reported) Metoprolol Tartrate 100 Mg Tablet, 100 MG PO BID, (Reported) Nitrofurantoin Macrocrystal 50 Mg Capsule, 50 MG PO Q6H Prescribed by: SHEILA DE OLIVEIRA on 07/02/20 0946 Oxycodone HCl 5 Mg Capsule, 5 MG PO Q4H PRN for PAIN-MODERATE (5-7), (Reported) Pantoprazole Sodium 40 Mg Tablet.dr, 40 MG PO DAILY, (Reported) Patient Home Medication List Home Medication List Reviewed: Yes (ANNIE MENDOSA DO) Review of Systems Review of Systems Constitutional: No fever, No malaise, No weakness Gastrointestinal: See HPI, Abdominal Pain; Denies Constipated, Denies Nausea, Denies Poor Appetite, Denies Vomiting; Other (mass coming out of abdomen) (ANNIE MENDOSA DO) Past Jkrkuwu-Pwhzen-Ndntwq Hx Past Med/Social Hx: Reviewed Nursing Past Med/Soc Hx (ANNIE MENDOSA DO) Patient Social History Alcohol Use: Denies Use Recreational Drug Use: No 2nd Hand Smoke Exposure: No Recent Foreign Travel: No Contact w/Someone Who Travel: No Recent Infectious Disease Expo: No Recent Hopitalizations: No Physical Abuse: No Sexual Abuse: No (ROVENSTINE,ANNIE L DO) Seasonal Allergies Seasonal Allergies: No (ROVENSTINE,ANNIE L DO) Past Medical History Surgeries: Yes (ILEOSTOMY) Abdominal, Cardiac, Coronary Stent Respiratory: No Currently Using CPAP: No Currently Using BIPAP: No Cardiac: Yes (STENTS X3) Heart Attack, High Cholesterol, Hypertension Neurological: No Sexually Transmitted Disease: No HIV/AIDS: No Genitourinary: No Gastrointestinal: Yes (ILEOSTOMY, HX BLOCKED BOWEL) Musculoskeletal: No Endocrine: No HEENT: No Cancer: No Psychosocial: Yes Sleep Difficulties, Anxiety, Depression Integumentary: No Blood Disorders: No Adverse Reaction/Blood Tranf: No (HAD TRANSFUSION WITHOUT PROBLEMS) (ROVENSTINE,ANNIE L DO) Family Medical History Hypertension 19 MOTHER Hypertension, Other Conditions/Hx (ROVENSTINE,ANNIE L DO) Physical Exam Vital Signs Vital Signs - First Documented 07/03/20 21:43 Temp 36.9 Pulse 122 Resp 16 B/P (MAP) 124/78 (93) Pulse Ox 100 O2 Delivery Room Air (FABY EDGAR MD) Vital Signs Capillary Refill : Less Than 3 Seconds (ROVENSTINE,ANNIE L DO) Height/Weight/BMI Height: '" Weight: lbs. oz. kg; 26.09 BMI Method: General Appearance: WD/WN, no apparent distress Respiratory: chest non-tender, lungs clear Cardiovascular: regular rate, rhythm, no edema Gastrointestinal: soft, no pulsatile mass, other (eviscerated small intestine through dehisced midline incision infraumbilical.) Neurologic/Psychiatric: alert, normal mood/affect Skin: normal color, warm/dry (ROVENSTINE,ANNIE L DO) Neck: full range of motion, supple Cardiovascular: no murmur, tachycardia Extremities: non-tender, normal inspection (FABY EDGAR MD) Progress/Results/Core Measures Results/Orders Lab Results Laboratory Tests Test 07/03/20 22:05 Range/Units White Blood Count 12.1 H 4.3-11.0 10^3/uL Red Blood Count 3.79 L 4.35-5.85 10^6/uL Hemoglobin 10.5 L 11.5-16.0 G/DL Hematocrit 32 L 35-52 % Mean Corpuscular Volume 83 80-99 FL Mean Corpuscular Hemoglobin 28 25-34 PG Mean Corpuscular Hemoglobin Concent 33 32-36 G/DL Red Cell Distribution Width 14.7 H 10.0-14.5 % Platelet Count 560 H 130-400 10^3/uL Mean Platelet Volume 8.7 7.4-10.4 FL Neutrophils (%) (Auto) 74 42-75 % Lymphocytes (%) (Auto) 10 L 12-44 % Monocytes (%) (Auto) 13 H 0-12 % Eosinophils (%) (Auto) 2 0-10 % Basophils (%) (Auto) 0 0-10 % Neutrophils # (Auto) 8.9 H 1.8-7.8 X 10^3 Lymphocytes # (Auto) 1.3 1.0-4.0 X 10^3 Monocytes # (Auto) 1.6 H 0.0-1.0 X 10^3 Eosinophils # (Auto) 0.2 0.0-0.3 10^3/uL Basophils # (Auto) 0.0 0.0-0.1 10^3/uL Sodium Level 137 135-145 MMOL/L Potassium Level 4.4 3.6-5.0 MMOL/L Chloride Level 109 H 98-107 MMOL/L Carbon Dioxide Level 14 L 21-32 MMOL/L Anion Gap 14 5-14 MMOL/L Blood Urea Nitrogen 43 H 7-18 MG/DL Creatinine 1.01 0.60-1.30 MG/DL Estimat Glomerular Filtration Rate 57 BUN/Creatinine Ratio 43 Glucose Level 128 H 70-105 MG/DL Calcium Level 8.9 8.5-10.1 MG/DL (FABY EDGAR MD) Vital Signs/I&O 07/03/20 07/03/20 07/03/20 21:43 22:11 23:03 Temp 36.9 36.9 36.9 Pulse 122 110 120 Resp 16 16 18 B/P (MAP) 124/78 (93) 118/73 (93) 121/86 (98) Pulse Ox 100 100 O2 Delivery Room Air Room Air (FABY EDGAR MD) Blood Pressure Mean: 93 Progress Progress Note : Progress Note 7227: Patient arrives from [facility] and excepted in ED to ED transfer from Dr. Mendosa due to bowel evisceration after ileostomy reversal. Patient reevaluated. Currently comfortable. Dr. Cardona called and is in route and surgery team is in route as well. Monitor patient. 2318: Dr. Cardona arrives and evaluating patient. Bowel evisceration noted. Patient to go to the OR. Patient agrees to plan. (FABY EDGAR MD) Departure Communication (Admissions) Time/Spoke to Admitting Phy: 21:53 spoke to legal secretary receptionist Surgeon, Dr Cardona who accepts pt to go to surgery @ [phone]. spoke [address] Edgar @ 2156- who accepts for ER to ER transfer (ANNIE MENDOSA DO) Impression Primary Impression: Evisceration of bowel Additional Impression: Surgical wound dehiscence Qualified Codes: T81.31XA - Disruption of external operation (surgical) wound, not elsewhere classified, initial encounter Disposition: ADMITTED INPATIENT Condition: Stable Admissions Decision to Admit Reason: Admit from ER (General) Decision to Admit/Date: Jul 03, 2020 Time/Decision to Admit Time: 21:55 (ANNIE MENDOSA DO) Departure-Patient Inst. Ref[facility]: [facility] [place]) Primary Care Physician KARTIK HEREDIA APRN (Family) Primary Care Physician ANNIE MENDOSA DO Jul 03, 2020 22:05 FABY EDGAR MD Jul 03, 2020 23:21
[2020-07-03 22:23] LABS: BASOPHILS % (AUTO) 0 % (0-10); EOSINOPHILS # (AUTO) 0.2 10^3/uL (0.0-0.3); EOSINOPHILS % (AUTO) 2 % (0-10); HEMATOCRIT 32 % (35-52); HEMOGLOBIN 10.5 G/DL (11.5-16.0); LYMPHOCYTES # (AUTO) 1.3 X 10^3 (1.0-4.0); LYMPHOCYTES % (AUTO) 10 % (12-44); MEAN CORPUSCULAR HEMOGLOBIN 28 PG (25-34); MEAN CORPUSCULAR HGB CONC 33 G/DL (32-36); MEAN CORPUSCULAR VOLUME 83 FL (80-99); MEAN PLATELET VOLUME 8.7 FL (7.4-10.4); MONOCYTES # (AUTO) 1.6 X 10^3 (0.0-1.0); MONOCYTES % (AUTO) 13 % (0-12); NEUTROPHILS # (AUTO) 8.9 X 10^3 (1.8-7.8); NEUTROPHILS % (AUTO) 74 % (42-75); PLATELET COUNT 560 10^3/uL (130-400); RED CELL DISTRIBUTION WIDTH 14.7 % (10.0-14.5); WHITE BLOOD COUNT 12.1 10^3/uL (4.3-11.0)
[2020-07-03 22:38] LABS: CALCIUM 8.9 MG/DL (8.5-10.1); CREATININE SERUM 1.01 MG/DL (0.60-1.30); POTASSIUM 4.4 MMOL/L (3.6-5.0)
--- NOTE | 2020-07-03 23:07 | NUR ---
PT ARRIVED VIA [facility]. PT DENIES PAIN AT THIS TIME.
[2020-07-03] MEDS ORDERED: SUCCINYLCHOLINE INJ 100 MG/5 ML SYR ONE (23:22)
[2020-07-03] MEDS ORDERED: ONDANSETRON 4 MG/2 ML (SDV) Z0FRAN ONE (23:22)
[2020-07-03] MEDS ORDERED: proPOfol 200 MG/20 ML (DIPRIVAN) VIAL IV ONE (23:22)
[2020-07-03] MEDS ORDERED: ROCURONIUM 10 MG/ML 5 ML SYRINGE IV ONE (23:22)
[2020-07-03] MEDS ORDERED: fentaNYL INJECTION 100 MCG/2 ML AMP ONE (23:22)
[2020-07-03] MEDS ORDERED: MIDAZOLAM 2 MG/2 ML (VERSED) VIAL ONE (23:23)
[2020-07-03] MEDS ORDERED: SEVOFLURANE (ULTANE) 15 ML INHAL SOLN ONE (23:23)
[2020-07-03] MEDS ORDERED: LIDOCAINE PF 2% 5 ML (XYLOCAINE) VIAL ONE (23:23)
[2020-07-03] MEDS ORDERED: LACTATED RINGERS 1,000 ML IV ONE (23:30)
--- OUTSIDE RECORDS SUMMARY | 2020-07-03 23:32 | XMS REPORT | Continuity of Care Document ---
Author Organization Unknown Address Unknown Phone Unavailable Allergies Active Description Code Type Severity Reaction Onset Reported/Identified Relationship to Patient Clinical Status Yes No Known Drug Allergies [id number] Drug Allergy Unknown N/A 11/11/2019 Medications There [...] Ot I25.1 0 ATHSCL HEART DISEASE OF [place] CORONARY 03/08/2020 [facility] DO, SHEILA B Ot I25.2 OLD MYOCARDIAL INFARCTION 03/08/2020 [facility] DO, SHEILA B Ot I50.9 HEART FAILURE, UNSPECIFIED 03/08/2020 [facility] DO, SHEILA B Ot I95.8 1 POSTPROCEDURAL HYPOTENSION 03/08/2020 [facility] DO, SHEILA B Ot J96.0 0 ACUTE RESPIRATORY FAILURE, UNSP W HYPOXI 03/08/2020 [facility] DO, SHEILA B Ot K42.0 UMBILICAL HERNIA WITH OBSTRUCTION, WITHO 03/08/2020 [facility] DO, SHEILA B Ot K56.2 VOLVULUS 03/08/2020 [facility] DO, SHEILA B Ot K59.0 0 CONSTIPATION, UNSPECIFIED 03/08/2020 [facility] DO, SHEILA B Ot K65.1 PERITONEAL ABSCESS 03/08/2020 [facility] DO, SHEILA B Ot N17.9 ACUTE KIDNEY FAILURE, UNSPECIFIED 03/08/2020 [facility], SHEILA B Ot N39.0 URINARY TRACT INFECTION, SITE NOT SPECIF 03/08/2020 [facility], SHEILA B Ot R79.8 9 OTHER SPECIFIED ABNORMAL FINDINGS OF BLO 03/08/2020 [facility], SHEILA B Ot Z95.5 PRESENCE OF CORONARY ANGIOPLASTY IMPLANT 03/12/2020 [facility], SHEILA B Ot E78.0 0 PURE HYPERCHOLESTEROLEMIA, UNSPECIFIED 03/12/2020 [facility], SHEILA B Ot E87.1 HYPO-OSMOLALITY AND HYPONATREMIA 03/12/2020 [facility], SHEILA B Ot I11.0 HYPERTENSIVE HEART DISEASE WITH HEART FA 03/12/2020 [facility], SHEILA B Ot I25.1 0 ATHSCL HEART DISEASE OF [place] CORONARY 03/12/2020 [facility], SHEILA B Ot I25.2 OLD MYOCARDIAL INFARCTION 03/12/2020 [facility], SHEILA B Ot I50.9 HEART FAILURE, UNSPECIFIED 03/12/2020 [facility], SHEILA B Ot I95.8 1 POSTPROCEDURAL HYPOTENSION 03/12/2020 [facility], SHEILA B Ot J96.0 0 ACUTE RESPIRATORY FAILURE, UNSP W HYPOXI 03/12/2020 [facility], SHEILA B Ot K42.0 UMBILICAL HERNIA WITH OBSTRUCTION, WITHO 03/12/2020 [facility] DO, SHEILA B Ot K56.2 VOLVULUS 03/12/2020 [facility] DO, SHEILA B Ot K59.0 0 CONSTIPATION, UNSPECIFIED 03/12/2020 [facility] DO, SHEILA B Ot K65.1 PERITONEAL ABSCESS 03/12/2020 [facility] DO, SHEILA B Ot N17.9 ACUTE KIDNEY FAILURE, UNSPECIFIED 03/12/2020 [facility] DO, SHEILA B Ot N39.0 URINARY TRACT INFECTION, SITE NOT SPECIF 03/12/2020 [facility] DO, SHEILA B Ot R79.8 9 OTHER SPECIFIED ABNORMAL FINDINGS OF BLO 03/12/2020 [facility] DO, SHEILA B Ot Z95.5 PRESENCE OF CORONARY ANGIOPLASTY IMPLANT 03/12/2020 [facility] DO, SHEILA B Ot E78.0 0 PURE HYPERCHOLESTEROLEMIA, UNSPECIFIED 03/12/2020 [facility] DO, SHEILA B Ot E87.1 HYPO-OSMOLALITY AND HYPONATREMIA 03/12/2020 [facility] DO, SHEILA B Ot I11.0 HYPERTENSIVE HEART DISEASE WITH HEART FA 03/12/2020 [facility], SHEILA B Ot I25.1 0 ATHSCL HEART DISEASE OF [place] CORONARY 03/12/2020 [facility], SHEILA B Ot I25.2 OLD MYOCARDIAL INFARCTION 03/12/2020 [facility], SHEILA B Ot I50.9 HEART FAILURE, UNSPECIFIED 03/12/2020 [facility] DO, SHEILA B Ot I95.8 1 POSTPROCEDURAL HYPOTENSION 03/12/2020 [facility] DO, SHEILA B Ot J96.0 0 ACUTE RESPIRATORY FAILURE, UNSP W HYPOXI 03/12/2020 [facility], SHEILA B Ot K42.0 UMBILICAL HERNIA WITH OBSTRUCTION, WITHO 03/12/2020 [facility] DO, SHEILA B Ot K56.2 VOLVULUS 03/12/2020 [facility], SHEILA B Ot K59.0 0 CONSTIPATION, UNSPECIFIED 03/12/2020 [facility] DO, SHEILA B Ot K65.1 PERITONEAL ABSCESS 03/12/2020 [facility] DO, SHEILA B Ot N17.9 ACUTE KIDNEY FAILURE, UNSPECIFIED 03/12/2020 [facility] DO, SHEILA B Ot N39.0 URINARY TRACT INFECTION, SITE NOT SPECIF 03/12/2020 [facility] DO, SHEILA B Ot R79.8 9 OTHER SPECIFIED ABNORMAL FINDINGS OF BLO 03/12/2020 [facility] DO, SHEILA B Ot Z95.5 PRESENCE OF CORONARY ANGIOPLASTY IMPLANT 03/13/2020 [facility] DO, SHEILA B Ot E78.0 0 PURE HYPERCHOLESTEROLEMIA, UNSPECIFIED 03/13/2020 [facility] DO, SHEILA B Ot E87.1 HYPO-OSMOLALITY AND HYPONATREMIA 03/13/2020 [facility] DO, SHEILA B Ot I11.0 HYPERTENSIVE HEART DISEASE WITH HEART FA 03/13/2020 [facility], SHEILA B Ot I25.1 0 ATHSCL HEART DISEASE OF [place] CORONARY 03/13/2020 [facility], SHEILA B Ot I25.2 OLD MYOCARDIAL INFARCTION 03/13/2020 [facility], SHEILA B Ot I50.9 HEART FAILURE, UNSPECIFIED 03/13/2020 [facility], SHEILA B Ot I95.8 1 POSTPROCEDURAL HYPOTENSION 03/13/2020 [facility], SHEILA B Ot J96.0 0 ACUTE RESPIRATORY FAILURE, UNSP W HYPOXI 03/13/2020 [facility], SHEILA B Ot K42.0 UMBILICAL HERNIA WITH OBSTRUCTION, WITHO 03/13/2020 [facility], SHEILA B Ot K56.2 VOLVULUS 03/13/2020 [facility], SHEILA B Ot K59.0 0 CONSTIPATION, UNSPECIFIED 03/13/2020 [facility], SHEILA B Ot K65.1 PERITONEAL ABSCESS 03/13/2020 [facility], SHEILA B Ot N17.9 ACUTE KIDNEY FAILURE, UNSPECIFIED 03/13/2020 [facility], SHEILA B Ot N39.0 URINARY TRACT INFECTION, SITE NOT SPECIF 03/13/2020 [facility], SHEILA B Ot R79.8 9 OTHER SPECIFIED ABNORMAL FINDINGS OF BLO 03/13[facility] SHE[facility] B Ot Z95.5 PRESENCE OF CORONARY ANGIOPLASTY IMPLANT 03/13/2020 [facility], SHEILA B Ot D64.9 ANEMIA, UNSPECIFIED 03/13/2020 [facility], SHEILA B Ot E78.0 0 PURE HYPERCHOLESTEROLEMIA, UNSPECIFIED 03/13/2020 [facility], SHEILA B Ot E87.1 HYPO-OSMOLALITY AND HYPONATREMIA 03/13/2020 [facility], SHEILA B Ot E87.6 HYPOKALEMIA 03/13/2020 [facility], SHEILA B Ot I07.1 RHEUMATIC TRICUSPID INSUFFICIENCY 03/13/2020 [facility], SHEILA B Ot I11.0 HYPERTENSIVE HEART DISEASE WITH HEART FA 03/13/2020 [facility] DO, SHEILA B Ot I21.A 1 MYOCARDIAL INFARCTION TYPE 2 03/13/2020 [facility], SHEILA B Ot I25.1 0 ATHSCL HEART DISEASE OF [place] CORONARY 03/13/2020 [facility] DO, SHEILA B Ot I25.2 OLD MYOCARDIAL INFARCTION 03/13/2020 [facility] DO, SHEILA B Ot I50.9 HEART FAILURE, UNSPECIFIED 03/13/2020 [facility] SHEIL[facility] B Ot I95.8 1 POSTPROCEDURAL HYPOTENSION 03/13/2020 [facility] SHEILA B Ot J96.0 0 ACUTE RESPIRATORY FAILURE, UNSP W HYPOXI 03/13/2020 [facility] SHEILA B Ot J98.1 1 ATELECTASIS 03/13/2020 [facility] SHEILA B Ot K42.0 UMBILICAL HERNIA WITH OBSTRUCTION, WITHO 03/13/2020 [facility], SHEILA B Ot K56.2 VOLVULUS 03/13/2020 [facility] SHEILA B Ot K59.0 0 CONSTIPATION, UNSPECIFIED 03/13/2020 [facility], SHEILA B Ot K65.1 PERITONEAL ABSCESS 03/13/2020 [facility] SHEILA B Ot N17.9 ACUTE KIDNEY FAILURE, UNSPECIFIED 03/13/2020 [facility], SHEILA B Ot N39.0 URINARY TRACT INFECTION, SITE NOT SPECIF 03/13/2020 [facility] SHEILA B Ot R65.2 1 SEVERE SEPSIS WITH SEPTIC SHOCK 03/13/2020 [facility] SHEILA B Ot R79.8 9 OTHER SPECIFIED ABNORMAL FINDINGS OF BLO 03/13/2020 [facility] , SHEILA B Ot Z95.5 PRESENCE OF [...] SESAR Ot I25.10 ATHSCL HEART DISEASE OF [place] CORONARY 03/19/2020 [facility] DO, SESAR Ot K13.79 [...] SESAR Ot F41.9 ANXIETY DISORDER, UNSPECIFIED 03/20/2020 [facility] DO, SESAR Ot I10 ESSENTIAL (PRIMARY) HYPERTENSION 03/20/2020 [facility] DO, SESAR Ot I25.10 ATHSCL HEART DISEASE OF [place] CORONARY 03/20/2020 [facility] DO, SESAR Ot K13.79 [...] SESAR Ot I25.10 ATHSCL HEART DISEASE OF [place] CORONARY 03/21/2020 [facility] DO, SESAR Ot K13.79 [...] SESAR Ot I25.10 ATHSCL HEART DISEASE OF [place] CORONARY 03/22/2020 [facility] DO, SESAR Ot K13.79 [...] F32.9 MAJOR DEPRESSIVE DISORDER, SINGLE EPISOD 03/23/2020 [facility] DO, SESAR Ot F41.9 ANXIETY DISORDER, UNSPECIFIED 03/23/2020 [facility] DO, SESAR Ot I10 ESSENTIAL (PRIMARY) HYPERTENSION 03/23/2020 [facility] DO, SESAR Ot I25.10 ATHSCL HEART DISEASE OF [place] CORONARY 03/23/2020 [facility] DO, SESAR Ot K13.79 [...] SESAR Ot I25.10 ATHSCL HEART DISEASE OF [place] CORONARY 03/24/2020 [facility] DO, SESAR Ot K13.79 [...] SESAR Ot I25.10 ATHSCL HEART DISEASE OF [place] CORONARY 03/25/2020 [facility] DO, SESAR Ot K13.79 [...] SESAR Ot I25.10 ATHSCL HEART DISEASE OF [place] CORONARY 03/26/2020 [facility] DO, SESAR Ot K13.79 [...] SESAR Ot I25.10 ATHSCL HEART DISEASE OF [place] CORONARY 03/26/2020 [facility] DO, SESAR Ot K13.79 [...] F32.9 MAJOR DEPRESSIVE DISORDER, SINGLE EPISOD 03/27/2020 [facility] DO, SESAR Ot F41.9 ANXIETY DISORDER, UNSPECIFIED 03/27/2020 [facility] DO, SESAR Ot I10 ESSENTIAL (PRIMARY) HYPERTENSION 03/27/2020 [facility] DO, SESAR Ot I25.10 ATHSCL HEART DISEASE OF [place] CORONARY 03/27/2020 [facility] DO, SESAR Ot K13.79 [...] SESAR Ot I25.10 ATHSCL HEART DISEASE OF [place] CORONARY 03/28/2020 [facility] DO, SESAR Ot K13.79 [...] SESAR Ot I25.10 ATHSCL HEART DISEASE OF [place] CORONARY 03/29/2020 [facility] DO, SESAR Ot K13.79 [...] SESAR Ot I25.10 ATHSCL HEART DISEASE OF [place] CORONARY 03/30/2020 [facility] DO, SESAR Ot K13.79 OTHER LESIONS OF ORAL MUCOSA 03/30/2020 [facility] DO, SESAR Ot L68.0 HIRSUTISM 03/30/2020 [facility] DO, SESAR Ot R50.9 FEVER, UNSPECIFIED 03/30/2020 [facility] DO, SESAR Ot R53.1 WEAKNESS 03/30/2020 [facility] DO, SESAR [...] SESAR Ot I25.10 ATHSCL HEART DISEASE OF [place] CORONARY 03/31/2020 [facility] DO, SESAR Ot K13.79 [...] SESAR Ot I25.10 ATHSCL HEART DISEASE OF [place] CORONARY 04/01/2020 [facility] DO, SESAR Ot K13.79 [...] SESAR Ot I25.10 ATHSCL HEART DISEASE OF [place] CORONARY 04/02/2020 [facility] DO, SESAR Ot K13.79 [...] SESAR Ot I25.10 ATHSCL HEART DISEASE OF [place] CORONARY 04/03/2020 [facility] DO, SESAR Ot K13.79 [...] SESAR Ot I25.10 ATHSCL HEART DISEASE OF [place] CORONARY 04/04/2020 [facility] DO, SESAR Ot K13.79 [...] OF CORONARY ANGIOPLASTY IMPLANT 04/05/2020 [facility] DO, ESSAR Ot D64.9 ANEMIA, UNSPECIFIED 04/05/2020 [facility] DO, SESAR Ot E78.00 PURE HYPERCHOLESTEROLEMIA, UNSPECIFIED 04/05/2020 [facility] DO, SESAR Ot E87.70 FLUID OVERLOAD, UNSPECIFIED 04/05/2020 [facility] DO, SESAR Ot F32.9 MAJOR DEPRESSIVE DISORDER, SINGLE EPISOD 04/05/2020 [facility] DO, SESAR Ot F41.9 ANXIETY DISORDER, UNSPECIFIED 04/05/2020 [facility] DO, SESAR Ot I10 ESSENTIAL (PRIMARY) HYPERTENSION 04/05/2020 [facility] DO, SESAR Ot I25.10 ATHSCL HEART DISEASE OF [place] CORONARY 04/05/2020 [facility] DO, SESAR Ot K13.79 [...] ENCNTR FOR SURGICAL AFTCR FOLLOWING SURG 04/05/2020 [facility] DO, SESAR Ot Z93.2 ILEOSTOMY STATUS 04/05/2020 [...] SESAR Ot I25.10 ATHSCL HEART DISEASE OF [place] CORONARY 04/06/2020 [facility] DO, SESAR Ot K13.79 [...] SESAR Ot I25.10 ATHSCL HEART DISEASE OF [place] CORONARY 04/06/2020 [facility] DO, SESAR Ot K13.79 [...] SANDERS SHEILA B Ot E87.6 HYPOKALEMIA 05/07/2020 [facility], SHEILA B Ot I07.1 RHEUMATIC TRICUSPID INSUFFICIENCY 05/07/2020 [facility], SHEILA B Ot I11.0 HYPERTENSIVE HEART DISEASE WITH HEART FA 05/07/2020 [facility], SHEILA B Ot I21.A 1 MYOCARDIAL INFARCTION TYPE 2 05/07/2020 [facility] DO, SHEILA B Ot I25.1 0 ATHSCL HEART DISEASE OF [place] CORONARY 05/07/2020 [facility], SHEILA B Ot I25.2 OLD MYOCARDIAL INFARCTION 05/07/2020 [facility], SHEILA B Ot I50.9 HEART FAILURE, UNSPECIFIED 05/07/2020 [facility], SHEILA B Ot I95.8 1 POSTPROCEDURAL HYPOTENSION 05/07/2020 [facility], SHEILA B Ot J96.0 0 ACUTE RESPIRATORY FAILURE, UNSP W HYPOXI 05/07/2020 [facility], SHEILA B Ot J98.1 1 ATELECTASIS 05/07/2020 [facility], SHEILA B Ot K42.0 UMBILICAL HERNIA WITH OBSTRUCTION, WITHO 05/07/2020 [facility], SHEILA B Ot K56.2 VOLVULUS 05/07/2020 [facility], SHEILA B Ot K59.0 0 CONSTIPATION, UNSPECIFIED 05/07/2020 [facility], SHEILA B Ot K65.1 PERITONEAL ABSCESS 05/07/2020 [facility], SHEILA B Ot N17.9 ACUTE KIDNEY FAILURE, UNSPECIFIED 05/07/2020 [facility], SHEILA B Ot N39.0 URINARY TRACT INFECTION, SITE NOT SPECIF 05/07/2020 [facility], SHEILA B Ot R65.2 1 SEVERE SEPSIS WITH SEPTIC SHOCK 05/07/2020 [facility], SHEILA B Ot R79.8 9 OTHER SPECIFIED ABNORMAL FINDINGS OF BLO 05/07/2020 [facility], SHEILA B Ot Z95.5 PRESENCE OF CORONARY ANGIOPLASTY IMPLANT 05/07/2020 [facility], SHEILA B Ot D64.9 ANEMIA, UNSPECIFIED 05/07/2020 [facility], SHEILA B Ot E78.0 0 PURE HYPERCHOLESTEROLEMIA, UNSPECIFIED 05/07/2020 [facility], SHEILA B Ot E87.1 HYPO-OSMOLALITY AND HYPONATREMIA 05/07/2020 [facility], SHEILA B Ot E87.6 HYPOKALEMIA 05/07/2020 [facility], SHEILA B Ot I07.1 RHEUMATIC TRICUSPID INSUFFICIENCY 05/07/2020 [facility], SHEILA B Ot I11.0 HYPERTENSIVE HEART DISEASE WITH HEART FA 05/07/2020 [facility], SHEILA B Ot I21.A 1 MYOCARDIAL INFARCTION TYPE 2 05/07/2020 [facility], SHEILA B Ot I25.1 0 ATHSCL HEART DISEASE OF [place] CORONARY 05/07/2020 [facility], SHEILA B Ot I25.2 OLD MYOCARDIAL INFARCTION 05/07/2020 [facility], SHEILA B Ot I50.9 HEART FAILURE, UNSPECIFIED 05/07/2020 [facility], SHEILA B Ot I95.8 1 POSTPROCEDURAL HYPOTENSION 05/07/2020 [facility], SHEILA B Ot J96.0 0 ACUTE RESPIRATORY FAILURE, UNSP W HYPOXI 05/07/2020 [facility], SHEILA B Ot J98.1 1 ATELECTASIS 05/07/2020 [facility], SHEILA B Ot K42.0 UMBILICAL HERNIA WITH OBSTRUCTION, WITHO 05/07/2020 [facility], SHEILA B Ot K56.2 VOLVULUS 05/07/2020 [facility], SHEILA B Ot K59.0 0 CONSTIPATION, UNSPECIFIED 05/07/2020 [facility], SHEILA B Ot K65.1 PERITONEAL ABSCESS 05/07/2020 [facility], SHEILA B Ot N17.9 ACUTE KIDNEY FAILURE, UNSPECIFIED 05/07/2020 [facility], SHEILA B Ot N39.0 URINARY TRACT INFECTION, SITE NOT SPECIF 05/07/2020 [facility], SHEILA B Ot R65.2 1 SEVERE SEPSIS WITH SEPTIC SHOCK 05/07/2020 [facility], SHEILA B Ot R79.8 9 OTHER SPECIFIED ABNORMAL FINDINGS OF BLO 05/07/2020 [facility], SHEILA B Ot Z95.5 PRESENCE OF CORONARY ANGIOPLASTY IMPLANT 05/07/2020 [facility], SHEILA B Ot D64.9 ANEMIA, UNSPECIFIED 05/07/2020 [facility], SHEILA B Ot E78.0 0 PURE HYPERCHOLESTEROLEMIA, UNSPECIFIED 05/07/2020 [facility], SHEILA B Ot E87.1 HYPO-OSMOLALITY AND HYPONATREMIA 05/07/2020 [facility], SHEILA B Ot E87.6 HYPOKALEMIA 05/07/2020 [facility], SHEILA B Ot I07.1 RHEUMATIC TRICUSPID INSUFFICIENCY 05/07/2020 [facility], SHEILA B Ot I11.0 HYPERTENSIVE HEART DISEASE WITH HEART FA 05/07/2020 [facility], SHEILA B Ot I21.A 1 MYOCARDIAL INFARCTION TYPE 2 05/07/2020 [facility], SHEILA B Ot I25.1 0 ATHSCL HEART DISEASE OF [place] CORONARY 05/07/2020 [facility], SHEILA B Ot I25.2 OLD MYOCARDIAL INFARCTION 05/07/2020 [facility], SHEILA B Ot I50.9 HEART FAILURE, UNSPECIFIED 05/07/2020 [facility], SHEILA B Ot I95.8 1 POSTPROCEDURAL HYPOTENSION 05/07/2020 [facility], SHEILA B Ot J96.0 0 ACUTE RESPIRATORY FAILURE, UNSP W HYPOXI 05/07/2020 [facility], SHEILA B Ot J98.1 1 ATELECTASIS 05/07/2020 [facility], SHEILA B Ot K42.0 UMBILICAL HERNIA WITH OBSTRUCTION, WITHO 05/07/2020 [facility], SHEILA B Ot K56.2 VOLVULUS 05/07/2020 [facility], SHEILA B Ot K59.0 0 CONSTIPATION, UNSPECIFIED 05/07/2020 [facility], SHEILA B Ot K65.1 PERITONEAL ABSCESS 05/07/2020 [facility], SHEILA B Ot N17.9 ACUTE KIDNEY FAILURE, UNSPECIFIED 05/07/2020 [facility], SHEILA B Ot N39.0 URINARY TRACT INFECTION, SITE NOT SPECIF 05/07/2020 [facility], SHEILA B Ot R65.2 1 SEVERE SEPSIS WITH SEPTIC SHOCK 05/07/2020 [facility], SHEILA B Ot R79.8 9 OTHER SPECIFIED ABNORMAL FINDINGS OF BLO 05/07/2020 [facility], SHEILA B Ot Z95.5 [...] TO PARTIAL V 05/26/2020 [facility] DO, ANNIE L Ot R10.9 UNSPECIFIED ABDOMINAL PAIN 05/26/2020 [facility] DO, ANNIE Roman Ot K56.609 UNSP INTESTNL OBST, UNSP TO PARTIAL V 05/26/2020 [facility] DO, ANNIE L Ot R10.9 UNSPECIFIED ABDOMINAL PAIN 05/27/2020 CASE BENJI Abel 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 Ot I 10 ESSENTIAL (PRIMARY) HYPERTENSION 05/29/2020 LAUREENJEANINEBENJI 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 Ot I 10 ESSENTIAL (PRIMARY) HYPERTENSION 05/29/2020 LAUREENJEANINEBENJI 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 Ot I 10 ESSENTIAL (PRIMARY) HYPERTENSION 06/17/2020 [facility] DO, SHEILA B Ot Z01.8 18 ENCOUNTER FOR OTHER PREPROCEDURAL EXAMIN 06/19/2020 [facility]OVENSTINE DO, ANNIE Roman Ot K56.609 UNSP INTESTNL OBST, UNSP TO PARTIAL V 06/19/2020 [facility] DO, ANNIE Abel Ot R10.9 UNSPECIFIED ABDOMINAL PAIN 06/19/2020 LAUREENJEANINEBENJI 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 Ot I 10 ESSENTIAL (PRIMARY) HYPERTENSION 06/26/2020 [facility] DO, SHEILA B Ot Z01.8 18 ENCOUNTER FOR OTHER PREPROCEDURAL EXAMIN 06/26/2020 [facility] DO, SHEILA B Ot Z20.8 28 CONTACT W AND EXPOSURE TO OTH VIRAL COMM 06/26/2020 [facility] DO, SHEILA B Ot Z93.2 ILEOSTOMY STATUS 06/29/2020 BENJI WILLOUGHBY 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 Ot I 10 ESSENTIAL (PRIMARY) HYPERTENSION 07/02/2020 [facility] DO, SHEILA B Ot Z43.2 ENCOUNTER FOR ATTENTION TO ILEOSTOMY 07/02/2020 [facility] DO, SHEILA B Ot Z53.3 1 LAPAROSCOPIC SURGICAL PROCEDURE CONVERTE 07/03/2020 [facility]STINE DO, ANNIE Roman Ot K56.609 UNSP INTESTNL OBST, UNSP TO PARTIAL V 07/03/2020 [facility] DO, ANNIE L Ot R10.9 UNSPECIFIED ABDOMINAL PAIN 07/03/2020 BENJI WILLOUGHBY 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 Ot I 10 ESSENTIAL (PRIMARY) HYPERTENSION 07/03/2020 SHEILA DE OLIVEIRA DO Ot Z01.8 18 ENCOUNTER FOR OTHER PREPROCEDURAL EXAMIN 07/03/2020 SHEILA DE OLIVEIRA DO Ot Z20.8 28 CONTACT W AND EXPOSURE TO OTH VIRAL COMM 07/03/2020 SHEILA DE OLIVEIRA DO Ot Z93.2 ILEOSTOMY STATUS Procedures Code Description Performed By Per formed On [id number] ME ASURE OF CARDIAC SAMPL PRESSURE, L H 03/04/2020 [id number] UOROSCOPY OF MULT COR ART USING L OSM 03/04/2020 [id number] BY PASS ILEUM TO CUTANEOUS WITH AUTOL SUB 03/05/2020 [id number] EX CISION OF LARGE INTESTINE, OPEN APPROA 03/05/2020 [id number] IN SPECTION OF LOWER INTESTINAL TRACT, EN 03/05/[id number] NOVAK OF PERITONEAL CAVITY, PERCUTANE 03/16/2020 [id number] EX CISION OF ILEUM, OPEN APPROACH 06/24/2020 [id number] IN SPECTION OF PERITONEAL CAVITY, PERCUTA 06/24/2020 Results Test Result Range Complete blood count [...] culture - 03/04/20 18:10 Bacterial urine culture [id number] NRG COLONY COUNT >100,000/ML NRG SUSCEPTIBILITY SUSCEPTIBILITY [...] ncentration <= NRG Nitrofurantoin susceptibility test by de nimum inhibitory concentration <= NRG Amoxicillin and [...] pa yobani - 03/04/20 23:59 WRISTBAND NUMBER [id number] NRG ABO+Rh group OP NRG Blood group [...] RED CELLS LEUKO REDUCED AS1 T RANSFUSED 03/08/202105 NRG Blood type T Indirect antibody screen [facility] 03/08/20 18:53 WRISTBAND NUMBER [id number] NRG ABO+Rh group OP NRG Blood group antibody screen NEGATIVE NR G Whole blood hemoglobin and hematocrit [facility] 03/09/20 01:05 Venous blood hemoglobin measurement (mass/volume) [...] Blood hypochromia detection by light microscopy [facility] Blood nivia cells detection by light microscopy SLI T NRG Blood schistocytes detection by light microscopy [...] Whole blood basic metabolic panel - 02/26 05:45 Serum or plasma sodium measurement (moles/volume) [...] Bacteria identification in isolate by anaerobe culture NOANA NRG Gram stain microscopy - 03/16/20 13:47 [...] pa yobani - 03/17/20 10:00 WRISTBAND NUMBER [id number] NRG ABO+Rh group OP NRG Blood group [...] HORMONE 2.73 u[iU]/mL 0.35-4.94 Coronavirus SARS-CoV-2 SO 2019 - 0 10:06 Coronavirus Ab [Units/volume] in [...] 0.0-0.1 Blood type T Indirect antibody screen pa yobani - 06/24/20 07:03 WRISTBAND NUMBER [id number] NRG ABO+Rh group OP NRG Blood group antibody screen NEGATIVE NR G Serum or plasma choriogonadotropin (preg armando test) detection - 06/24/20 07:55 Serum or plasma choriogonadotropin ( test) de tection NEGATIVE NEGATIVE Serum or plasma creatinine measurement ( mass/volume) - 06/24/20 07:55 Serum or plasma creatinine measurement (mass/volume) 0.99 mg/dL 0.60-1.30 Whole blood hemoglobin and hematocrit [facility] - 06/29/20 04:29 Venous blood hemoglobin [...] culture - 06/29/20 18:30 Bacterial urine culture [id number] NRG COLONY COUNT . NRG SUSCEPTIBILITY REPORTED PREDOMINANT BY RML AND NRG MRSA SCREEN SUSCEPTIBILTIY REPORTED 07/01/20 11:15 NRG RAPID ID PRELIM RAPID ID TESTING AT [facility] NRG Dirithromycin susceptibility test by dis [...] d white blood cell (WBC) differential - 07/03/20 22:05 Blood leukocytes automated count (number/volume) 12.1 10*3/uL 4.3-11.0 Blood erythrocytes automated count (number/volume) 3.79 10*6/uL 4.35-5.85 Venous blood hemoglobin measurement (mass/volume) 10.5 g/dL 11.5-16.0 Blood hematocrit (volume fraction) 32 % 35-52 Automated erythrocyte mean corpuscular volume 83 [ foz_us] 80-99 Automated erythrocyte mean corpuscular h emoglobin (mass per erythrocyte) 28 pg 25-34 Automated erythrocyte mean corpuscular h emoglobin concentration measurement (mass/volume) 33 g/dL 32-36 Automated erythrocyte distribution width ratio 14. 7 % 10.0- 14.5 Automated blood platelet count (count/volume) 560 10*3/uL 130-400 Automated blood platelet mean volume measurement 8.7 [foz_us] 7.4-10.4 Automated blood neutrophils/100 leukocytes 74 % 42-75 Automated blood lymphocytes/100 leukocytes 10 % 12-44 Blood monocytes/100 leukocytes 13 % 0-12 Automated blood eosinophils/100 leukocytes 2 % 0-10 Automated blood basophils/100 leukocytes 0 % 0-10 Blood neutrophils automated count (number/volume) 8.9 10*3 1.8-7.8 Blood lymphocytes automated count (number/volume) 1.3 10*3 1.0-4.0 Blood monocytes automated count (number/volume) 1. 6 10*3 0.0-1.0 Automated eosinophil count 0.2 10*3/uL 0 .0-0.3 Automated blood basophil count (count/volume) 0.0 10*3/uL 0.0-0.1 Whole blood basic metabolic panel - 06/15 22:05 Serum or plasma sodium measurement (moles/volume) 137 mmol/L 135-145 Serum or plasma potassium measurement (moles/volume) 4.4 mmol/L 3.6-5.0 Serum or plasma chloride measurement (moles/volume) 109 mmol/L 98-107 Carbon dioxide 14 mmol/L 21-32 Serum or plasma anion gap determination (moles/volume) 14 mmol/L 5-14 Serum or plasma urea nitrogen measurement (mass/volume ) 43 mg/dL 7-18 Serum or plasma creatinine measurement (mass/volume) 1.01 mg/dL 0.60-1.30 Serum or plasma urea nitrogen/creatinine mass ratio 43 NRG Serum or plasma creatinine measurement w ith calculation of estimated glomerular filtration rate 57 NRG Serum or plasma glucose measurement (mass/volume) 128 mg/dL 70-105 Serum or plasma calcium measurement (mass/volume) 8.9 mg/dL 8.5-10.1 Encounters ACCT No. Visit Date/Time Discharge Status Pt. Type Provider Facility Loc./Unit Complaint [id number] 06/24/2020 06:23:00 13:59:00 DIS Inpatient SHEILA DE OLIVEIRA DO [facility] 4TH ILEOSTOMY [id number] 06/19/2020 10:46:00 23:59:59 CLS Outpatient SHEILA DE OLIVEIRA DO [facility] LAB FS PRE OP REQUIREMENT [id number] 06/17/2020 05:41:00 13:56:00 DIS Outpatient SHEILA DE OLIVEIRA DO [facility] PREOP ILEOSTOMY [id number] 05/26/2020 14:21:00 23:59:59 CLS Outpatient BENJI WILLOUGHBY [facility] LAB FS HTN [id number] 03/13/2020 11:35:00 14:15:00 DIS Inpatient SESAR BEEBE DO, [facility] IRF DEBILITY [id number] 03/04/2020 20:27:00 11:05:00 DIS Inpatient SHEILA DE OLIVEIRA DO [facility] 4TH ISCHEMIC BOWEL,HX CAD,A KI [id number] 03/04/2020 17:29:00 17:29:00 CAN Preadmit ANNIE GONZALEZ DO [facility] ER FS CONSTIPATION [id number] 11/11/2019 14:29:00 019 17:00:00 DIS Emergency RAY COPPOLA, MIHAELA W [facility] ER FS TACHY; ELEV BP [id number] 07/03/2020 23:26:[address] Outpatient ARIADNE VALENTIN DO [facility] SDC BROKEN OPEN INCISION
--- NOTE | 2020-07-03 23:42 | NUR ---
PT TO OR WITH OR STAFF.
[2020-07-03] MEDS ORDERED: metroNIDAZOLE 500MG/100ML IVPB 100 ML ONE (23:50)
[2020-07-03] MEDS ORDERED: CEFEPIME 1 GM (MAXIPIME) VIAL ONE (23:52)
[2020-07-04] VITALS (13 sets, daily range): BP systolic 103–131; BP diastolic 59–75
--- NOTE | 2020-07-04 00:02 | History & Physical-Surgical ---
History of Present Illness History of Present Illness Reason for visit/HPI CC: Lump at incision Patient is a 55 year old female who had recent ileostomy takedown with ileoproctostomy. Patient was discharged yesterday. Patient had increased drainage today and noticed lump and went to ER. She was found to have small bowel eviscerated through midline incision. Has been having bowel movements. No increase in pain. No other complaints. Denies fever sweats chills shortness of breath or chest pain. Date of Admission T Date Seen by a Provider: Jul 03, 2020 Time Seen by a Provider: 23:58 I consulted on this patient on 07/03/20 23:56 Attending Physician Ariadne Cardona DO Admitting Physician [facility] Consult Allergies and Home Medications Allergies Coded Allergies: No Known Drug Allergies (Unverified , 11/11/19) Home Medications Alprazolam 0.25 Mg Tablet, 0.25 MG PO Q8H PRN for ANXIETY, (Reported) Lisinopril 20 Mg Tablet, 20 MG PO BID, (Reported) Metoprolol Tartrate 100 Mg Tablet, 100 MG PO BID, (Reported) Nitrofurantoin Macrocrystal 50 Mg Capsule, 50 MG PO Q6H Prescribed by: SHEILA DE OLIVEIRA on 07/02/20 0946 Oxycodone HCl 5 Mg Capsule, 5 MG PO Q4H PRN for PAIN-MODERATE (5-7), (Reported) Pantoprazole Sodium 40 Mg Tablet.dr, 40 MG PO DAILY, (Reported) Patient Home Medication List Home Medication List Reviewed: Yes Past Mqluura-Kqiujb-Ntdxxn Hx Patient Social History Alcohol Use: Denies Use Recreational Drug Use: No 2nd Hand Smoke Exposure: No Recent Foreign Travel: No Contact w/Someone Who Travel: No Recent Infectious Disease Expo: No Recent Hopitalizations: No Seasonal Allergies Seasonal Allergies: No Surgeries History of Surgeries: Yes (ILEOSTOMY take down and reanastamosis) Surgeries: Abdominal, Cardiac, Coronary Stent Respiratory History of Respiratory Disorde: No Cardiovascular History of Cardiac Disorders: Yes (STENTS X3) Cardiac Disorders: Heart Attack, High Cholesterol, Hypertension Neurological History of Neurological Disord: No Reproductive System Sexually Transmitted Disease: No HIV/AIDS: No Genitourinary History of Genitourinary Disor: No Gastrointestinal History of Gastrointestinal Di: Yes (ILEOSTOMY, HX BLOCKED BOWEL) Musculoskeletal History of Musculoskeletal Dis: No Endocrine History of Endocrine Disorders: No HEENT History of HEENT Disorders: No Cancer History of Cancer: No Psychosocial History of Psychiatric Problem: Yes Behavioral Health Disorders: Sleep Difficulties, Anxiety, Depression Integumentary History of Skin or Integumenta: No Blood Transfusions History of Blood Disorders: No Adverse Reaction to a Blood Tr: No (HAD TRANSFUSION WITHOUT PROBLEMS) Reviewed Nursing Assessment Reviewed/Agree w Nursing PMH: Yes Family Medical History Significant Family History: No Pertinent Family Hx, Hypertension, Other Conditions/Hx Family Medial History: Hypertension 19 MOTHER Review of Systems Constitutional: No chills, No diaphoresis EENTM: No hearing loss, No blurred vision, No double vision Respiratory: No cough, No dyspnea on exertion Cardiovascular: No chest pain, No edema Gastrointestinal: see HPI, other (bowel evisceration) Genitourinary: No decreased output, No dysuria Musculoskeletal: No back pain, No joint pain Skin: No change in color, No change in hair/nails Psychiatric/Neurological: Denies Anxiety, Denies Depressed, Denies Emotional Problems All Other Systems Reviewed Negative Unless Noted: Yes (Negative excepted noted.) Physical Exam Vital Signs Vital Signs - First Documented 07/03/20 21:43 Temp 36.9 Pulse 122 Resp 16 B/P (MAP) 124/78 (93) Pulse Ox 100 O2 Delivery Room Air Capillary Refill : Less Than 3 Seconds Height, Weight, BMI Height: '" Weight: lbs. oz. kg; 26.09 BMI Method: General Appearance: No Apparent Distress, Chronically ill HEENT: PERRL/EOMI, Normal ENT Inspection Neck: Normal Inspection, Non Tender, Supple Respiratory: Chest Non Tender, No Accessory Muscle Use, No Respiratory Distress Cardiovascular: No Edema, Tachycardia Gastrointestinal: Soft, Other (midline incision balbina pulled through bowel exposed) Rectal: Deferred Back: No CVA Tenderness, No Vertebral Tenderness Extremity: Normal Capillary Refill, Non Tender, No Calf Tenderness Neurologic/Psychiatric: Alert, Oriented x3, No Motor/Sensory Deficits, Normal Mood/Affect, smart energy specialist II-XII Norm as Tested Skin: Normal Color, Warm/Dry Lymphatic: No Adenopathy Data Review Labs Laboratory Tests 07/03/20 22:05: White Blood Count 12.1H, Red Blood Count 3.79L, Hemoglobin 10.5L, Hematocrit 32L , Mean Corpuscular Volume 83, Mean Corpuscular Hemoglobin 28, Mean Corpuscular Hemoglobin Concent 33, Red Cell Distribution Width 14.7H, Platelet Count 560H, Mean Platelet Volume 8.7, Neutrophils (%) (Auto) 74, Lymphocytes (%) (Auto) 10L, Monocytes (%) (Auto) 13H, Eosinophils (%) (Auto) 2, Basophils (%) (Auto) 0, Neutrophils # (Auto) 8.9H, Lymphocytes # (Auto) 1.3, Monocytes # (Auto) 1.6H, Eosinophils # (Auto) 0.2, Basophils # (Auto) 0.0, Sodium Level 137, Potassium Level 4.4, Chloride Level 109H, Carbon Dioxide Level 14L, Anion Gap 14, Blood Urea Nitrogen 43H, Creatinine 1.01, Estimat Glomerular Filtration Rate 57, BUN/Creatinine Ratio 43, Glucose Level 128H, Calcium Level 8.9 07/03/20 22:10: 07/03/20 23:35: Assessment/Plan Assessment/Plan Admission Diagonsis s/p small bowel resection with ileostomy takedown and ileoproctostomy anastamos is bowel evisceration uti Admission Status: Inpatient Order (span 2 midnights) Reason for Inpatient Admission: patient will need postoperative care that will need stay expected to be 2 midnights Assessment/Plan s/p small bowel resection with ileostomy takedown and ileoproctostomy anastamosis bowel evisceration uti Patient explained risks and benefits of exploring abdomen and closing fascia and all other indicated procedures (and possibly going laparoscopically and placing mesh). she understands and wishes to proceed. patient to or IV fluids Cefepime/Flagyl To OR ARIADNE CARDONA DO Jul 04, 2020 00:02
[2020-07-04] MEDS ORDERED: SEVOFLURANE (ULTANE) 15 ML INHAL SOLN ONE ×5 (01:02→01:49)
[2020-07-04] MEDS ORDERED: LACTATED RINGERS 1,000 ML IV PRN (01:03)
[2020-07-04] MEDS ORDERED: PHENYLEPHRINE 100 MCG/ML 10 ML (ANESTHESIA) SYR ONE (01:03)
[2020-07-04] MEDS ORDERED: morphine INJ 10 MG/ML 1ML (SYR OR VIAL) ONE (01:11)
[2020-07-04] MEDS ORDERED: ONDANSETRON 4 MG/2 ML (SDV) Z0FRAN ONE (01:11)
[2020-07-04] MEDS ORDERED: NEOSTIGMINE 3 MG/3 ML VIAL ONE (01:49)
[2020-07-04] MEDS ORDERED: GLYCOPYRROLATE 0.2 MG/ML (ROBINUL) 2 ML VIAL ONE (01:49)
[2020-07-04] MEDS ORDERED: SUGAMMADEX 500 MG/5 ML VIAL (BRIDION) IV ONE (01:51)
--- NOTE | 2020-07-04 01:53 | Progress Note-Post Operative ---
Post-Operative Progess Note Surgeon (s)/Top Collar Baster (s) Surgeon ARIADNE VALENTIN DO Top Collar Baster: na Pre-Operative Diagnosis evisceration of bowel Post-Operative Diagnosis same Procedure & Operative Findings Date of Procedure 07/04/20 Procedure Performed/Findings exploratory laparostomy washout abdomen closure of abdominal wall laparoscopic hernia repair 15 x 20 cm Phasix mesh placement of wound vac 12 x 7 cm Anesthesia Type gen Estimated Blood Loss Estimated blood loss (mL): min Specimens/Packing Specimens Removed na ARIADNE VALENTIN DO Jul 04, 2020 01:53
[2020-07-04] MEDS ORDERED: ONDANSETRON 4 MG/2 ML (SDV) Z0FRAN IVP PRN ×2 (02:00→02:15)
[2020-07-04] MEDS ORDERED: HYDROmorphone 2 MG/ML VIAL (DILAUDID) IV ONE (02:15)
[2020-07-04] MEDS ORDERED: MEPERIDINE (DEMEROL) INJ 50 MG/ML IVP ONE (02:15)
[2020-07-04] MEDS ORDERED: morphine INJ 10 MG/ML 1ML (SYR OR VIAL) IVP ONE (02:15)
--- NOTE | 2020-07-04 02:55 | NUR ---
BK YOUNG admitted to room 406, with an admitting diagnosis of Evisceration of Bowel; Surgical wound dehiscence from PACU via Hospital bed, accompanied by PACU Staff. BK YOUNG introduced to surroundings, call light, bed controls, phone, TV, temperature control, lights, meal times, smoking policy, visitor policy, side rail policy, bathrooms and showers. Patient Rights given to patient in the handbook. BK YOUNG verbalizes understanding that [facility] is not responsible for the loss or damage to any personal effects or valuables that are kept in the patients posession during their hospitalization. BK YOUNG verbalizes understanding of Interdisciplinary Patient Education. Patient and/or family were informed about the Rapid Response Team and its purpose.
--- OUTSIDE RECORDS SUMMARY | 2020-07-04 03:44 | XMS REPORT | Continuity of Care Document ---
Author Organization Unknown Address Unknown Phone Unavailable Allergies Active Description Code Type Severity Reaction Onset Reported/Identified Relationship to Patient Clinical Status Yes No Known Drug Allergies [id number] Drug Allergy Unknown N/A 11/11/2019 Medications There [...] Ot I25.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 03/08/2020 DELMAN DO, SHEILA B Ot I25.2 OLD MYOCARDIAL INFARCTION 03/08/2020 ALVINO DO, SHEILA B Ot I50.9 HEART FAILURE, UNSPECIFIED 03/08/2020 [facility] DO, SHEILA B Ot I95.8 1 POSTPROCEDURAL HYPOTENSION 03/08/2020 [facility] DO, SHEILA B Ot J96.0 0 ACUTE RESPIRATORY FAILURE, UNSP W HYPOXI 03/08/2020 [facility] DO, SHEILA B Ot K42.0 UMBILICAL HERNIA WITH OBSTRUCTION, WITHO 03/08/2020 [facility] DO, SHEILA B Ot K56.2 VOLVULUS 03/08/2020 [facility] DO, SHEILA B Ot K59.0 0 CONSTIPATION, UNSPECIFIED 03/08/2020 [facility] DO, SHEILA B Ot K65.1 PERITONEAL ABSCESS 03/08/2020 [facility] DO, SHEILA B Ot N17.9 ACUTE KIDNEY [...] Ot I25.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 03/12/2020 [facility], SHEILA B Ot I25.2 OLD MYOCARDIAL INFARCTION 03/12/2020 [facility], SHEILA B Ot I50.9 HEART FAILURE, UNSPECIFIED 03/12/2020 [facility], SHEILA B Ot I95.8 1 POSTPROCEDURAL HYPOTENSION 03/12/2020 [facility], SHEILA B Ot J96.0 0 ACUTE RESPIRATORY FAILURE, UNSP W HYPOXI 03/12/2020 [facility], SHEILA B Ot K42.0 UMBILICAL HERNIA WITH OBSTRUCTION, WITHO 03/12/2020 [facility] DO, SHEILA B Ot K56.2 VOLVULUS 03/12/2020 [facility] DO, SHEILA B Ot K59.0 0 CONSTIPATION, UNSPECIFIED 03/12/2020 [facility] DO, SHEILA B Ot K65.1 PERITONEAL ABSCESS 03/12/2020 [facility] DO, SHEILA B Ot N17.9 ACUTE KIDNEY FAILURE, UNSPECIFIED 03/12/2020 [facility] DO, SHEILA B Ot N39.0 URINARY TRACT INFECTION, SITE NOT SPECIF 03/12/2020 [facility] DO, SHEILA B Ot R79.8 9 OTHER SPECIFIED ABNORMAL FINDINGS OF BLO 03/12/[address] [facility] DO, SHEILA B Ot Z95.5 PRESENCE OF CORONARY ANGIOPLASTY IMPLANT 03/12/2020 [facility] DO, SHEILA B Ot E78.0 0 PURE HYPERCHOLESTEROLEMIA, UNSPECIFIED 03/12/2020 [facility] DO, SHEILA B Ot E87.1 HYPO-OSMOLALITY AND HYPONATREMIA 03/12/2020 [facility] DO, SHEILA B Ot I11.0 HYPERTENSIVE HEART DISEASE WITH HEART FA 03/12/2020 [facility], SHEILA B Ot I25.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 03/12/2020 [facility], SHEILA B Ot I25.2 OLD MYOCARDIAL INFARCTION 03/12/2020 [facility], SHEILA B Ot I50.9 HEART FAILURE, UNSPECIFIED 03/12/2020 [facility] DO, SHEILA B Ot I95.8 1 POSTPROCEDURAL HYPOTENSION 03/12/2020 [facility] DO, SHEILA B Ot J96.0 0 ACUTE RESPIRATORY FAILURE, UNSP W HYPOXI 03/12/2020 [facility], SHEILA B Ot K42.0 UMBILICAL HERNIA WITH OBSTRUCTION, WITHO 03/12/2020 [facility] DO, SHEILA B Ot K56.2 VOLVULUS 03/12/2020 [facility], SHEILA B Ot K59.0 0 CONSTIPATION, UNSPECIFIED 03/12/2020 [facility] DO, SHEILA B Ot K65.1 PERITONEAL ABSCESS 03/12/2020 [facility] DO, SHEILA B Ot N17.9 ACUTE KIDNEY FAILURE, UNSPECIFIED 03/12/2020 [facility] DO, SHEILA B Ot N39.0 URINARY TRACT INFECTION, SITE NOT SPECIF 03/12/2020 [facility] DO, SHELIA B Ot R79.8 9 OTHER SPECIFIED ABNORMAL FINDINGS OF BLO 03/12/2020 [facility] DO, SHEILA B Ot Z95.5 PRESENCE OF CORONARY ANGIOPLASTY IMPLANT 03/13/2020 [facility] DO, SHEILA B Ot E78.0 0 PURE HYPERCHOLESTEROLEMIA, UNSPECIFIED 03/13/2020 [facility] DO, SHEILA B Ot E87.1 HYPO-OSMOLALITY AND HYPONATREMIA 03/13/2020 [facility] DO, SHEILA B Ot I11.0 HYPERTENSIVE HEART DISEASE WITH HEART FA 03/13/2020 [facility], SHEILA B Ot I25.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 03/13/2020 [facility], SHEILA B [...] OTHER SPECIFIED ABNORMAL FINDINGS OF BLO 03/13[facility] B Ot Z95.5 PRESENCE OF [...] HYPERTENSIVE HEART DISEASE WITH HEART FA 03/13/2020 [facility] DO, SHEILA B Ot I21.A 1 MYOCARDIAL INFARCTION TYPE 2 03/13/2020 [facility], SHEILA B Ot I25.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 03/13/2020 [facility] DO, SHEILA B Ot I25.2 OLD MYOCARDIAL INFARCTION 03/13/2020 [facility] DO, SHEILA B Ot I50.9 HEART FAILURE, UNSPECIFIED 03/13/2020 [facility], SHEILA B Ot I95.8 1 POSTPROCEDURAL HYPOTENSION 03/13/2020 [facility], SHEILA B Ot J96.0 0 ACUTE RESPIRATORY FAILURE, UNSP W HYPOXI 03/13/2020 [facility], SHEILA B Ot J98.1 1 ATELECTASIS 03/13/2020 [facility], SHEILA B Ot K42.0 UMBILICAL HERNIA WITH OBSTRUCTION, WITHO 03/13/2020 [facility], SHEILA B Ot K56.2 VOLVULUS 03/13/2020 [facility], SHEILA B Ot K59.0 0 CONSTIPATION, UNSPECIFIED 03/13/2020 [facility], SHEILA B Ot K65.1 PERITONEAL ABSCESS 03/13/2020 [facility], SHEILA B Ot N17.9 ACUTE KIDNEY FAILURE, UNSPECIFIED 03/13/2020 [facility], SHEILA B Ot N39.0 URINARY TRACT INFECTION, SITE NOT SPECIF 03/13/2020 [facility], SHEILA B Ot R65.2 1 SEVERE SEPSIS WITH SEPTIC SHOCK 03/13/2020 [facility], SHEILA B Ot R79.8 9 OTHER SPECIFIED ABNORMAL FINDINGS OF BLO 03/13/2020 [facility] , SHEILA B Ot Z95.5 PRESENCE OF [...] SESAR Ot I25.1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 03/19/2020 BEE[facility] DO, SESAR Ot K13.79 [...] SESAR Ot I25.1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 03/20/2020 BEE[facility] DO, SESAR Ot K13.79 [...] SESAR Ot I25.1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 03/21/2020 [facility]EE[facility] DO, SESAR Ot K13.79 [...] SESAR Ot I25.1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 03/22/2020 [facility]EE[facility] DO, SESAR Ot K13.79 [...] SESAR Ot I25.1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 03/23/2020 [facility] DO, SESAR Ot K13.79 [...] SESAR Ot I25.1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 03/24/2020 [facility] DO, SESAR Ot K13.79 [...] SESAR Ot I25.1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 03/25/2020 [facility] DO, SESAR Ot K13.79 [...] SESAR Ot I25.1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 03/26/2020 [facility] DO, SESAR Ot K13.79 [...] SESAR Ot I25.1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 03/26/2020 [facility]EE[facility] DO, SESAR Ot K13.79 [...] SESAR Ot I25.1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 03/27/2020 [facility] DO, SESAR Ot K13.79 [...] DO, SESAR Ot D64.9 ANEMIA, UNSPECIFIED 03/28/2020 EBEBE DO, SESAR Ot E78.00 PURE HYPERCHOLESTEROLEMIA, UNSPECIFIED 03/28/2020 BEE[facility] DO, SESAR Ot E87.70 FLUID OVERLOAD, UNSPECIFIED 03/28/2020 [facility] DO, SESAR Ot F32.9 MAJOR DEPRESSIVE DISORDER, SINGLE EPISOD 03/28/2020 [facility] DO, SESAR Ot F41.9 ANXIETY DISORDER, UNSPECIFIED 03/28/2020 [facility] DO, SESAR Ot I10 ESSENTIAL (PRIMARY) HYPERTENSION 03/28/2020 [facility] DO, SESAR Ot I25.1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 03/28/2020 [facility]EE[facility] DO, SESAR Ot K13.79 [...] SESAR Ot I25.1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 03/29/2020 [facility] DO, SESAR Ot K13.79 OTHER LESIONS OF ORAL MUCOSA 03/29/2020 [facility] DO, SESAR Ot L68.0 HIRSUTISM 03/29/2020 [facility] DO, SESAR Ot R50.9 FEVER, UNSPECIFIED 03/29/2020 [facility] DO, SESAR Ot R53.1 WEAKNESS 03/29/2020 [facility] DO, SESAR Ot R53.81 OTHER MALAISE 03/29/2020 BEEBE DO SESAR Ot R60.1 GENERALIZED EDEMA 03/29/2020 EBEBE DO, SESAR Ot Z48.81 5 ENCNTR FOR [...] SESAR Ot I25.1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 03/30/2020 [facility] DO, SESAR Ot K13.79 [...] SESAR Ot I25.1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 03/31/2020 [facility] DO, SESAR Ot K13.79 [...] SESAR Ot I25.1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 04/01/2020 [facility] DO, SESAR Ot K13.79 [...] SESAR Ot I25.1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 04/02/2020 [facility]EE[facility] DO, SESAR Ot K13.79 [...] E78.00 PURE HYPERCHOLESTEROLEMIA, UNSPECIFIED 04/03/2020 BEE[facility] DO, SESRA Ot E87.70 FLUID OVERLOAD, UNSPECIFIED 04/03/2020 [facility] DO, SESAR Ot F32.9 MAJOR DEPRESSIVE DISORDER, SINGLE EPISOD 04/03/2020 [facility] DO, SESAR Ot F41.9 ANXIETY DISORDER, UNSPECIFIED 04/03/2020 BEE[facility] DO, SESAR Ot I10 ESSENTIAL (PRIMARY) HYPERTENSION 04/03/2020 BEEBE DO, SESAR Ot I25.1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 04/03/2020 BEE[facility] DO, SESAR Ot K13.79 [...] SESAR Ot I25.1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 04/04/2020 [facility] DO, SESAR Ot K13.79 [...] SESAR Ot I25.1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 04/05/2020 [facility] DO, SESAR Ot K13.79 [...] SESAR Ot I25.1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 04/06/2020 [facility] DO, SESAR Ot K13.79 [...] SESAR Ot I25.1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 04/06/2020 [facility] DO, SESAR Ot K13.79 [...] I21.A 1 MYOCARDIAL INFARCTION TYPE 2 05/07/2020 [facility] DO, SHEILA B Ot I25.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 05/07/2020 [facility], SHEILA B [...] Ot I25.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 05/07/2020 [facility], SHEILA B [...] Ot I25.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 05/07/2020 [facility], SHEILA B [...] UNSPECIFIED ABDOMINAL PAIN 05/27/2020 CASE BENJI Abel DIRECTOR OF LEADERSHIP DEVELOPMENT Ot I 10 ESSENTIAL (PRIMARY) HYPERTENSION 05/29/2020 LAUREENJEANINEBENJI DIRECTOR OF LEADERSHIP DEVELOPMENT Ot I 10 ESSENTIAL (PRIMARY) HYPERTENSION 05/29/2020 LAUREENJEANINEBENJI DIRECTOR OF LEADERSHIP DEVELOPMENT Ot I 10 ESSENTIAL (PRIMARY) HYPERTENSION 06/17/2020 [facility] DO, SHEILA B Ot Z01.8 18 ENCOUNTER FOR OTHER PREPROCEDURAL EXAMIN 06/19/2020 ROVENSTINE DO, ANNIE Roman Ot K56.609 UNSP INTESTNL OBST, UNSP TO PARTIAL V 06/19/2020 ROVENSTINE DO, ANNIE Abel Ot R10.9 UNSPECIFIED ABDOMINAL PAIN 06/19/2020 LAUREENJEANIENBENJI DIRECTOR OF LEADERSHIP DEVELOPMENT Ot I 10 ESSENTIAL (PRIMARY) HYPERTENSION 06/26/2020 [facility] DO, SHEILA B Ot Z01.8 18 ENCOUNTER FOR OTHER PREPROCEDURAL EXAMIN 06/26/2020 [facility] DO, SHEILA B Ot Z20.8 28 CONTACT W AND EXPOSURE TO OTH VIRAL COMM 06/26/2020 [facility] DO, SHEILA B Ot Z93.2 ILEOSTOMY STATUS 06/29/2020 BENJI WILLOUGHBY DIRECTOR OF LEADERSHIP DEVELOPMENT Ot I 10 ESSENTIAL (PRIMARY) HYPERTENSION 07/02/2020 [facility] DO, SHEILA B Ot Z43.2 ENCOUNTER FOR ATTENTION TO ILEOSTOMY 07/02/2020 [facility] DO, SHEILA B Ot Z53.3 1 LAPAROSCOPIC SURGICAL PROCEDURE CONVERTE 07/03/2020 ROVENSTINE DO, ANNIE Roman Ot K56.609 UNSP INTESTNL OBST, UNSP TO PARTIAL V 07/03/2020 ROVENSTINE DO, ANNIE L Ot R10.9 UNSPECIFIED ABDOMINAL PAIN 07/03/2020 BENJI WILLOUGHBY DIRECTOR OF LEADERSHIP DEVELOPMENT Ot I 10 ESSENTIAL (PRIMARY) HYPERTENSION 07/03/2020 SHEILA DE OLIVEIRA DO Ot Z01.8 18 ENCOUNTER FOR OTHER PREPROCEDURAL EXAMIN 07/03/2020 SHEILA DE OLIVEIRA DO Ot Z20.8 28 CONTACT W AND EXPOSURE TO OTH VIRAL COMM 07/03/2020 SHEILA DE OLIVEIRA DO Ot Z93.2 ILEOSTOMY STATUS Procedures Code Description Performed By Per formed On [id number] ME ASURE OF CARDIAC SAMPL PRESSURE, L H 03/04/2020 [id number] FL UOROSCOPY OF MULT COR ART USING L OSM 03/04/2020 [id number] BY PASS ILEUM TO CUTANEOUS WITH AUTOL SUB 03/05/2020 [id number] EX CISION OF LARGE INTESTINE, OPEN APPROA 03/05/2020 [id number] IN SPECTION OF LOWER INTESTINAL TRACT, EN 03/05/[id number] ONVAK OF PERITONEAL CAVITY, PERCUTANE 03/16/2020 [id number] EX CISION OF ILEUM, OPEN APPROACH 06/24/2020 [id number] IN SPECTION OF PERITONEAL CAVITY, PERCUTA 06/24/2020 [...] culture - 03/04/20 18:10 Bacterial urine culture [id number] NRG COLONY COUNT >100,000/ML NRG SUSCEPTIBILITY SUSCEPTIBILITY [...] ncentration <= NRG Nitrofurantoin susceptibility test by ut nimum inhibitory concentration <= NRG Amoxicillin and [...] pa yobani - 03/04/20 23:59 WRISTBAND NUMBER [id number] NRG ABO+Rh group OP NRG Blood group [...] NRG Blood type T Indirect antibody screen [facility] 03/08/20 18:53 WRISTBAND NUMBER [id number] NRG ABO+Rh group OP NRG Blood group antibody screen NEGATIVE NR G Whole blood hemoglobin and hematocrit [facility] 03/09/20 01:05 Venous blood hemoglobin measurement (mass/volume) [...] Blood hypochromia detection by light microscopy [facility] NRG Blood nivia cells detection by light [...] pa yobani - 03/17/20 10:00 WRISTBAND NUMBER [id number] NRG ABO+Rh group OP NRG Blood group [...] pa yobani - 06/24/20 07:03 WRISTBAND NUMBER [id number] NRG ABO+Rh group OP NRG Blood group antibody screen NEGATIVE NR G Serum or plasma choriogonadotropin (preg armando test) detection - 06/24/20 07:55 Serum or plasma choriogonadotropin ( test) de tection NEGATIVE NEGATIVE Serum or plasma creatinine measurement ( mass/volume) - 06/24/20 07:55 Serum or plasma creatinine measurement (mass/volume) 0.99 mg/dL 0.60-1.30 Whole blood hemoglobin and hematocrit [facility] - 06/29/20 04:29 Venous blood hemoglobin measurement [...] culture - 06/29/20 18:30 Bacterial urine culture [id number] NRG COLONY COUNT . NRG SUSCEPTIBILITY REPORTED PREDOMINANT BY RML AND NRG MRSA SCREEN SUSCEPTIBILTIY REPORTED 07/01/20 11:15 NRG RAPID ID PRELIM RAPID ID TESTING AT [facility] NRG Dirithromycin susceptibility test by dis k [...] plasma calcium measurement (mass/volume) 8.9 mg/dL 8.5-10.1 CRP FS - 07/03/20 22:10 CRP FS 12.21 mg/dL <0.50 Blood lactic acid measurement (moles/vol ume) - 07/03/20 23:35 Blood lactic acid measurement (moles/volume) 1.21 mmol/L 0.50-2.00 Encounters ACCT No. Visit Date/Time Discharge Status Pt. Type Provider Facility Loc./Unit Complaint [id number] 06/24/2020 06:23:00 020 13:59:00 DIS Inpatient [facility] SHEILA SANDERS [facility] 4TH ILEOSTOMY [id number] 06/19/2020 10:46:00 23:59:59 CLS Outpatient ALVINO SHEILA SANDERS [facility] LAB FS PRE OP REQUIREMENT [id number] 06/17/2020 05:41:00 13:56:00 DIS Outpatient ALVINO SHEILA SANDERS [facility] PREOP ILEOSTOMY [id number] 05/26/2020 14:21:00 23:59:59 CLS Outpatient CASE BENJI Abel MORELP [facility] LAB FS HTN [id number] 03/13/2020 11:35:00 14:15:00 DIS Inpatient SESAR BEEBE DO, V [facility] IRF DEBILITY [id number] 03/04/2020 20:27:00 11:05:00 DIS Inpatient ALVINO SHEILA SANDERS [facility] 4TH ISCHEMIC BOWEL,HX CAD,A KI [id number] 03/04/2020 17:29:00 17:29:00 CAN Preadmit ROVENSTANNIE MURCIA DO [facility] ER FS CONSTIPATION [id number] 11/11/2019 14:29:00 17:00:00 DIS Emergency RAY COPPOLA, MIHAELA Blake [facility] ER FS TACHY; ELEV BP [id number] 07/04/2020 02:55:[address] Inpatient ARIADNE VALENTIN DO [facility] 4TH EVISCERATION OF BOWEL,SURGIC AL WOUND DEHISCENCE
[2020-07-04] MEDS: NS IV 1000 ML 1,000 ML IV SCH ×4 (03:54→22:17)
[2020-07-04] MEDS ORDERED: RT-ALBUTEROL SULF 2.5 MG/3 ML PRE-MIX VIAL INH PRN (05:15)
[2020-07-04] MEDS ORDERED: CEFEPIME 1 GM (MAXIPIME) VIAL ONE (05:33)
[2020-07-04] MEDS ORDERED: WATER (STERILE) FOR INJECTION 10 ML ONE (05:33)
[2020-07-04] MEDS: morphine INJ 4 MG/ML 1 ML (VIAL/SYRINGE) IVP PRN (05:49)
[2020-07-04] MEDS ORDERED: CEFEPIME INJECTION 1,000 MG in WATER (STERILE) FOR INJECTION 10 ML IV SCH (06:00)
[2020-07-04] MEDS: metroNIDAZOLE 500MG/100ML IVPB 100 ML IV SCH ×2 (08:24→17:17)
--- NOTE | 2020-07-04 08:44 | Progress Note - Surgery ---
FITONKECHI MED STUDENT 07/04/20 0844: Subjective Date Seen by a Provider: Jul 04, 2020 Time Seen by a Provider: 08:25 Subjective/Events-last exam Pt AAOx3 and is drinking and tolerating liquids well. Incisions appear warm and dry with no noticeable edema. Pt states she is having diffuse aching abdominal pain that is not originating from the incision sites. Has not noticed any flatulence. Focused Exam Lactate Level 07/03/20 23:35: Lactic Acid Level 1.21 Objective Exam Vital Signs Date Time Temp Pulse Resp B/P (MAP) Pulse Ox O2 Delivery O2 Flow Rate FiO2 07/04/20 07:31 36.2 81 16 104/68 (80) 99 Room Air 07/04/20 04:52 36.2 79 98 21 07/04/20 03:07 36.2 78 20 114/65 97 Room Air 07/04/20 03:00 Room Air 07/04/20 02:55 Room Air 07/04/20 02:55 36.3 18 114/75 (88) 99 Room Air 07/04/20 02:50 18 112/72 (85) 99 Room Air 07/04/20 02:42 Room Air 07/04/20 02:40 18 110/69 (83) 99 Room Air 07/04/20 02:35 Room Air 07/04/20 02:31 OxyMask 3 07/04/20 02:30 18 103/66 (78) 99 OxyMask 3 07/04/20 02:20 18 109/63 (78) 100 OxyMask 6 07/04/20 02:15 OxyMask 6 07/04/20 02:10 18 115/69 (84) 100 OxyMask 6 07/04/20 02:03 OxyMask 6 07/04/20 02:03 36.5 20 119/59 (79) 100 OxyMask 6 07/03/20 23:46 79 18 108/71 98 Room Air 07/03/20 23:03 36.9 120 18 121/86 (98) Room Air 07/03/20 22:11 36.9 110 16 118/73 (93) 100 07/03/20 21:43 36.9 122 16 124/78 (93) 100 Room Air I & O 07/04/20 07:00 Intake Total 1350 ml Output Total 160 ml Balance 1190 ml Capillary Refill : Less Than 3 Seconds General Appearance: No Apparent Distress, Chronically ill HEENT: PERRL/EOMI, Normal ENT Inspection Neck: Normal Inspection, Non Tender, Supple Respiratory: Chest Non Tender, No Accessory Muscle Use, No Respiratory Distress Cardiovascular: No Edema, Tachycardia Gastrointestinal: soft, no pulsatile mass, tenderness (diffuse abdominal tenderness, NTP but aching pains), other (eviscerated small intestine through dehisced midline incision infraumbilical.) Extremity: Normal Capillary Refill, Non Tender, No Calf Tenderness Neurologic/Psychiatric: Alert, Oriented x3, No Motor/Sensory Deficits, Normal Mood/Affect, folder operator II-XII Norm as Tested Skin: Normal Color, Warm/Dry Lymphatic: No Adenopathy Results Lab Laboratory Tests 07/03/20 22:05: White Blood Count 12.1H, Red Blood Count 3.79L, Hemoglobin 10.5L, Hematocrit 32L , Mean Corpuscular Volume 83, Mean Corpuscular Hemoglobin 28, Mean Corpuscular Hemoglobin Concent 33, Red Cell Distribution Width 14.7H, Platelet Count 560H, Mean Platelet Volume 8.7, Neutrophils (%) (Auto) 74, Lymphocytes (%) (Auto) 10L, Monocytes (%) (Auto) 13H, Eosinophils (%) (Auto) 2, Basophils (%) (Auto) 0, Neutrophils # (Auto) 8.9H, Lymphocytes # (Auto) 1.3, Monocytes # (Auto) 1.6H, Eosinophils # (Auto) 0.2, Basophils # (Auto) 0.0, Sodium Level 137, Potassium Level 4.4, Chloride Level 109H, Carbon Dioxide Level 14L, Anion Gap 14, Blood Urea Nitrogen 43H, Creatinine 1.01, Estimat Glomerular Filtration Rate 57, BUN/Creatinine Ratio 43, Glucose Level 128H, Calcium Level 8.9 07/03/20 22:10: C-Reactive Protein 12.21H 07/03/20 23:35: Lactic Acid Level 1.21 Assessment/Plan Assessment/Plan Assessment/Plan s/p small bowel resection with ileostomy takedown and ileoproctostomy anastamosis bowel evisceration uti Patient explained risks and benefits of exploring abdomen and closing fascia and all other indicated procedures (and possibly going laparoscopically and placing mesh). she understands and wishes to proceed. patient to or IV fluids Cefepime/Flagyl To OR Monitor and treat abdominal pain as necessary Begin increase in diet and ambulating Clinical Quality Measures DVT/VTE Risk/Contraindication: Risk Factor Score Per Nursin RFS Level Per Nursing on Admit: 3=High ARIADNE CARDONA DO 07/04/20 1708: Subjective Subjective/Events-last exam Patient pain controlled, just achy all over abdomen. Tolerating liquids. Didn't want to work with PT this morning but ended up doing so. Not using IS well. Denies n/v fever sweats chills shortness of breath or chest pain. Wound vac intact. Objective Exam General Appearance: No Apparent Distress, Chronically ill HEENT: PERRL/EOMI, Normal ENT Inspection Neck: Normal Inspection, Non Tender, Supple Respiratory: Chest Non Tender, No Accessory Muscle Use, No Respiratory Distress Cardiovascular: Regular Rate, Rhythm, No Edema Gastrointestinal: soft, tenderness (wound vac at midline, incison c/d/i at other sites) Extremity: Non Tender, No Calf Tenderness Neurologic/Psychiatric: Alert, Oriented x3, No Motor/Sensory Deficits, Normal Mood/Affect, folder operator II-XII Norm as Tested Skin: Normal Color, Warm/Dry Lymphatic: No Adenopathy Assessment/Plan Assessment/Plan Assessment/Plan s/p small bowel resection with ileostomy takedown and ileoproctostomy anastamosis with bowel evisceration s/p ex lap, wash out, closure of abdominal wall, laparoscopic hernia repair with Phasix Mesh, wound vac placement uti conitnue abx labs in am encouraged to use IS ambulate lovenox scd's for dvt prophylaxis Supervisory-Addendum Brief Verification & Attestation Participated in pt care: history, MDM, physical Personally performed: exam, history, MDM, supervision of care Care discussed with: Medical Student Procedures: n/a Results interpretation: Verified all documentation Verification and Attestation of Medical Student E/M Service A medical student performed and documented this service in my presence. I reviewed and verified all information documented by the medical student and made modifications to such information, when appropriate. I personally performed the physical exam and medical decision making. Ariadne Cardona, Jul 04, 2020,17:09 NKECHI PAYTON MED STUDENT Jul 04, 2020 08:44 ARIADNE CARDONA DO Jul 04, 2020 17:08
--- NOTE | 2020-07-04 08:56 | Physical Therapy Evaluation ---
PT Evaluation-General Medical Diagnosis Admission Date Jul 04, 2020 at 02:55 Medical Diagnosis: s/p small bowel resection Onset Date: Jul 03, 2020 Therapy Diagnosis Therapy Diagnosis: impaired mobility Precautions Precautions/Isolations: Fall Prevention, Standard Precautions Weight Bear Status Right Lower Extremity: Right Weight Bearing/Tolerated Left Lower Extremity: Left Weight Bearing/Tolerated Referral Physician: Stuart Cardona DO Reason for Referral: Evaluation/Treatment Medical History Pertinent Medical History: Heart Failure, HTN, NV Additional Medical History iliostomy, coronary stent x3, NV, hypercholesterolemia, anxiety, depression Current History Abdominal surgery 07/03. Reviewed History: Yes Social History Home: Single Level Current Living Status: Significant Other Entry Into Home: Ramp Prior Prior Level of Function SCALE: Activities may be completed with or without assistive devices. 5-Odkoaofpmp-kjodtpj completes the activity by him/herself with no assistance from a helper. 5-Set-up or Clean-up Assistance-helper sets up or cleans up; patient completes activity. [place] assists only prior to or following the activity. 4-Supervision or Touching Assistance-helper provides verbal cues and/or touching/steadying and/or contact guard assistance as patient completes activit y. Assistance may be provided throughout the activity or intermittently. 3-Partial/Moderate Assistance-helper does LESS THAN HALF the effort. [place] lifts, holds or supports trunk or limbs, but provides less than half the effort. 2-Substantial/Maximal Assistance-helper does MORE THAN HALF the effort. [place] lifts or holds trunk or limbs and provides more than half the effort. 9-Zplyzpoam-qjpbgb does ALL the effort. Patient does none of the effort to complete the activity. Or, the assistance of 2 or more helpers is required for the patient to complete the activity. If activity was not attempted, code reason: 7-Patient Refused. 9-Not Applicable-not attempted and the patient did not perform the activity before the current illness, exacerbation or injury. 10-Not Attempted due to Environmental Limitations-(lack of equipment, weather restraints, etc.). 88-Not Attempted due to Medical Conditions or Safety Concerns. Bed Mobility: 6 Transfers (B,C,W/C): 6 Gait: 6 Stairs: 6 Indoor Mobility (Ambulation): Independent Stairs: Not Applicalbe Prior Device Use: occasional use of cane PT Evaluation-Current Subjective (R) lower abdominal pain with movement. Pain Numeric Pain Scale: 6 Location: Right Location Body Site: Abdomen Pain Description: Ache, Dull, Stabbing Pt/Family Goals Return home Objective Patient Orientation: Person, Place, Time, Situation Attachments: SCD's, Drains, Monson Catheter, IV wound vac ROM/Strength ROM Upper Extremities WFL ROM Lower Extremities WFL Strength Upper Extremities WFL Strength Lower Extremities WFL Integumentary/Posture Bowel Incontinence: No Bladder Incontinence: Monson Cath Neuromuscular (Tone, Coordination, Reflexes) intact Sensory Vision: Functional Hearing: Functional Sensation Right Upper Extremit: Intact Sensation Left Upper Extremity: Intact Sensation Right Lower Extremit: Intact Sensation Left Lower Extremity: Intact Transfers Roll Left to Right (QC): 3 Sit to Lying (QC): 3 Lying to Sitting/Side of Bed(Q: 3 Sit to Stand (QC): 4 Chair/Kbn-aw-Kpxrx Xfer(QC): 4 Gait Does the Patient Walk?: Yes Mode of Locomotion: Walk Anticipated Mode of Locomotion: Walk Walk 10 feet (QC): 3 Distance: 30ft Gait Assistive Device: FWW Wheelchair Training Does the Pt Use a Wheelchair?: No Balance Sitting Static: Normal Sitting Dynamic: Normal Standing Static: Normal Standing Dynamic: Normal Assessment/Needs Despite abdominal pain, pt was able to perform transfer and ambulation with mi nimal assist. Bed mobility required mod assist. Rehab Potential: Good PT Short Term Goals Short Term Goals Time Frame: Jul 18, 2020 Roll Left & Right: 6 Sit to lyin Lying to sitting on side of be: 6 Sit to stand: 6 Chair/wem-yo-mhlbo transfer: 6 Toilet transfer: 6 Walk 10 feet: 6 Walk 50 feet with two turns: 6 Walk 150 feet: 6 Walking 10ft on uneven surface: 6 1 step (curb): 6 PT Plan Problem List Problem List: Functional Strength, Safety, Gait, Transfer, Bed Mobility Treatment/Plan Treatment Plan: Continue Plan of Care Treatment Plan: Bed Mobility, Functional Activity Fern, Functional Strength, Gait, Safety, Therapeutic Exercise, Transfers Treatment Duration: Jul 18, 2020 Frequency: 6 times per week Estimated Hrs Per Day: .25 hour per day Patient and/or Family Agrees t: Yes Time/GCodes Time In: 0820 Time Out: 0850 Total Billed Treatment Time: 30 Total Billed Treatment 1, radha 30 CARO CRISTOBAL PT Jul 04, 2020 08:56
--- NOTE | 2020-07-04 11:05 | NUR ---
LORTAB 5 PO FOR PAIN.
[2020-07-04] MEDS: HYDROcodone/APAP 5 MG/325 MG (LORTAB) TAB PO PRN ×2 (11:06→19:58)
[2020-07-04] MEDS: CEFEPIME INJECTION 1,000 MG in WATER (STERILE) FOR INJECTION 10 ML IV SCH ×2 (11:59→17:17)
[2020-07-04] MEDS: ENOXAPARIN 40 MG/0.4 ML (LOVENOX) SYR SC SCH (11:59)
--- NOTE | 2020-07-04 12:05 | Consultation - Hospitalist ---
HPI History of Present Illness: HPI/Chief Complaint Patient was taken to the OR early this morning for dehiscence of small bowel into midline incision after ileostomy reconnection 2 days ago. The patient is awake and alert and has some abdominal discomfort but has no nausea vomiting. She denies chest pain. Source: patient Exam Limitations: no limitations Date Seen 07/04/20 Attending Physician Stuart Cardona DO [facility] Referring Physician Dinesh Date of Admission Jul 04, 2020 at 02:55 Home Medications & Allergies Home Medications Reviewed patient Home Medication Reconciliation performed by pharmacy medication reconciliations reprographics technician and/or nursing. Patients Allergies have been reviewed. 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) Alcohol Use: Denies Use Recreational Drug Use: No 2nd Hand Smoke Exposure: No Recent Foreign Travel: No Contact w/other who traveled: No Recent Hopitalizations: No Recent Infectious Disease Expo: No Seasonal Allergies Seasonal Allergies: No Past Medical History Surgeries: Abdominal, Cardiac, Coronary Stent Currently Using CPAP: No Currently Using BIPAP: No Cardiac: Heart Attack, High Cholesterol, Hypertension Sexually Transmitted Disease: No HIV/AIDS: No Psychosocial: Sleep Difficulties, Anxiety, Depression History of Blood Disorders: No Adverse Reaction to Blood Mcgrath: No (HAD TRANSFUSION WITHOUT PROBLEMS) Family History Hypertension 19 MOTHER No Pertinent Family Hx, Hypertension, Other Conditions/Hx Review of Systems Constitutional: see HPI EENTM: no symptoms reported Respiratory: no symptoms reported Gastrointestinal: abdominal pain Genitourinary: no symptoms reported Skin: no symptoms reported Psychiatric/Neurological: No Symptoms Reported Physical Exam Physical Exam Vital Signs Vital Signs - First Documented 07/03/20 07/04/20 21:43 04:52 Temp 36.9 Pulse 122 Resp 16 B/P (MAP) 124/78 (93) Pulse Ox 100 O2 Delivery Room Air FiO2 21 Capillary Refill : Less Than 3 SecondsLess Than 3 Seconds Height, Weight, BMI Height: '" Weight: lbs. oz. kg; 28.55 BMI Method: General Appearance: No Apparent Distress, Chronically ill HEENT: PERRL/EOMI, Normal ENT Inspection Neck: Normal Inspection, Non Tender, Supple Respiratory: Chest Non Tender, No Accessory Muscle Use, No Respiratory Distress Cardiovascular: No Edema, Tachycardia Gastrointestinal: Tenderness, Other (Postop) Rectal: Deferred Back: No CVA Tenderness, No Vertebral Tenderness Extremity: Normal Capillary Refill, Non Tender, No Calf Tenderness Neurologic/Psychiatric: Alert, Oriented x3, No Motor/Sensory Deficits, Normal Mood/Affect, time clock repairer II-XII Norm as Tested Skin: Normal Color, Warm/Dry Lymphatic: No Adenopathy Results Results/Procedures Labs Laboratory Tests 07/03/20 22:05 Patient resulted labs reviewed. Assessment/Plan Assessment and Plan Assess & Plan/Chief Complaint Postop from wound dehiscence and repair-currently doing well Hypertension we'll hold her blood pressure medication since currently it is borderline low Coronary artery disease no evidence of acute event Hyperlipidemia Diagnosis/Problems Diagnosis/Problems (1) Surgical wound dehiscence Status: Acute Qualifiers: Encounter type: initial encounter Qualified Codes: T81.31XA - Disruption of external operation (surgical) wound, not elsewhere classified, initial encounter (2) Evisceration of bowel Status: Acute Assessment & Plan: 07/04: Status post repair with placement of wound VAC. Hematoma caused the dehiscence (3) Coronary artery disease Status: Chronic Assessment & Plan: 07/04 Currently stable with no evidence acute event Qualifiers: Associated angina: without angina (4) Hyperlipidemia Status: Chronic (5) Hypertension Status: Chronic Assessment & Plan: 07/04: We will hold blood pressure medicine since her blood pressure slightly low. Clinical Quality Measures DVT/VTE Risk/Contraindication: Risk Factor Score Per Nursin RFS Level Per Nursing on Admit: 3=REY Patel MD Jul 04, 2020 12:05
--- NOTE | 2020-07-04 13:35 | NUR ---
REMAINS UP IN CHAIR. PHANI WELL.
--- NOTE | 2020-07-04 19:07 | NUR ---
HAS NOT VOIDED. DOES NOT FEEL URGE. ST [facility] 360CC. DR. VALENTIN NOTIFIED. ORDER FOR [facility]TE CATH. KARI REEVES NURSE TO INSERT.
[2020-07-05] VITALS: BP 126/82
[2020-07-05] MEDS: metroNIDAZOLE 500MG/100ML IVPB 100 ML IV SCH ×4 (01:28→23:12)
[2020-07-05] MEDS: CEFEPIME INJECTION 1,000 MG in WATER (STERILE) FOR INJECTION 10 ML IV SCH ×5 (01:28→23:14)
[2020-07-05] MEDS: morphine INJ 4 MG/ML 1 ML (VIAL/SYRINGE) IVP PRN ×2 (03:50→11:27)
[2020-07-05 04:00] VITALS: BP 138/88
[2020-07-05 05:19] LABS: BASOPHILS % (AUTO) 0 % (0-10); EOSINOPHILS # (AUTO) 0.1 10^3/uL (0.0-0.3); EOSINOPHILS % (AUTO) 1 % (0-10); HEMATOCRIT 30 % (35-52); HEMOGLOBIN 10.2 G/DL (11.5-16.0); LYMPHOCYTES # (AUTO) 0.8 X 10^3 (1.0-4.0); LYMPHOCYTES % (AUTO) 5 % (12-44); MEAN CORPUSCULAR HEMOGLOBIN 28 PG (25-34); MEAN CORPUSCULAR HGB CONC 34 G/DL (32-36); MEAN CORPUSCULAR VOLUME 82 FL (80-99); MEAN PLATELET VOLUME 8.4 FL (7.4-10.4); MONOCYTES # (AUTO) 2.1 X 10^3 (0.0-1.0); MONOCYTES % (AUTO) 13 % (0-12); NEUTROPHILS # (AUTO) 13.4 X 10^3 (1.8-7.8); NEUTROPHILS % (AUTO) 82 % (42-75); PLATELET COUNT 355 10^3/uL (130-400); RED CELL DISTRIBUTION WIDTH 15.1 % (10.0-14.5); WHITE BLOOD COUNT 16.4 10^3/uL (4.3-11.0)
[2020-07-05 05:39] LABS: ALANINE AMINOTRANSFERASE 19 U/L (0-55); ALBUMIN 2.7 GM/DL (3.2-4.5); ALKALINE PHOSPHATASE 168 U/L (40-136); BILIRUBIN,TOTAL 0.6 MG/DL (0.1-1.0); BUN/CREATININE RATIO 36; CALCIUM 7.6 MG/DL (8.5-10.1); CARBON DIOXIDE 13 MMOL/L (21-32); CHLORIDE 110 MMOL/L (98-107); CREATININE SERUM 0.81 MG/DL (0.60-1.30); GFR ESTIMATED > 60; GLUCOSE 121 MG/DL (70-105); MAGNESIUM 1.5 MG/DL (1.6-2.4); POTASSIUM 4.5 MMOL/L (3.6-5.0); SODIUM 132 MMOL/L (135-145)
--- NOTE | 2020-07-05 06:54 | Anesthesia-General Post-Op ---
General Patient Condition Mental Status/LOC: Same as Preop Cardiovascular: Satisfactory Nausea/Vomiting: Absent Respiratory: Satisfactory Pain: Controlled Complications: Absent Post Op Complications Complications None Follow Up Care/Instructions Patient Instructions None needed. Anesthesia/Patient Condition Patient Condition Patient is doing well, no complaints, stable vital signs, no apparent adverse anesthesia problems. No complications reported per nursing. Progress Note Post op performed 07/04/2020 @ 1621 ELICEO CONN CRNA Jul 05, 2020 06:54
[2020-07-05] MEDS: NS IV 1000 ML 1,000 ML IV SCH ×2 (07:50→17:50)
[2020-07-05] MEDS: HYDROcodone/APAP 5 MG/325 MG (LORTAB) TAB PO PRN ×3 (07:58→21:20)
--- NOTE | 2020-07-05 08:07 | Progress Note - Surgery ---
FITONKECHI MED STUDENT 07/05/20 0807: Subjective Date Seen by a Provider: Jul 05, 2020 Time Seen by a Provider: 07:40 Subjective/Events-last exam Pt appears to be feeling better than yesterday and has began ambulating. States she is still sore but can continue to increase activity. Still is struggling with IS and had a fever yesterday. Focused Exam Lactate Level 07/03/20 23:35: Lactic Acid Level 1.21 Objective Exam Vital Signs Date Time Temp Pulse Resp B/P (MAP) Pulse Ox O2 Delivery O2 Flow Rate FiO2 07/05/20 04:00 37.6 100 20 138/88 (105) 99 Room Air 07/05/20 00:00 35.8 95 18 126/82 (97) 96 Room Air 07/04/20 19:55 Room Air 07/04/20 19:50 36.8 92 18 131/70 (90) 99 Room Air 07/04/20 19:29 95 Room Air 07/04/20 15:30 36.9 86 18 119/64 (82) 95 Room Air 07/04/20 12:07 37.0 94 14 115/73 (87) 99 Room Air 07/04/20 08:26 Room Air I & O 07/05/20 07:00 Intake Total 4480 ml Output Total 1100 ml Balance 3380 ml Capillary Refill : Less Than 3 SecondsLess Than 3 Seconds General Appearance: No Apparent Distress, Chronically ill HEENT: PERRL/EOMI, Normal ENT Inspection Neck: Normal Inspection, Non Tender, Supple Respiratory: Chest Non Tender, No Accessory Muscle Use, No Respiratory Distress Cardiovascular: Regular Rate, Rhythm, No Edema Gastrointestinal: soft, tenderness (wound vac at midline, incison c/d/i at other sites) Extremity: Non Tender, No Calf Tenderness Neurologic/Psychiatric: Alert, Oriented x3, No Motor/Sensory Deficits, Normal Mood/Affect, maintainability engineer II-XII Norm as Tested Skin: Normal Color, Warm/Dry Lymphatic: No Adenopathy Results Lab Laboratory Tests 07/05/20 05:06: White Blood Count 16.4H, Red Blood Count 3.65L, Hemoglobin 10.2L, Hematocrit 30L , Mean Corpuscular Volume 82, Mean Corpuscular Hemoglobin 28, Mean Corpuscular Hemoglobin Concent 34, Red Cell Distribution Width 15.1H, Platelet Count 355, Mean Platelet Volume 8.4, Neutrophils (%) (Auto) 82H, Lymphocytes (%) (Auto) 5L, Monocytes (%) (Auto) 13H, Eosinophils (%) (Auto) 1, Basophils (%) (Auto) 0, Neutrophils # (Auto) 13.4H, Lymphocytes # (Auto) 0.8L, Monocytes # (Auto) 2.1H, Eosinophils # (Auto) 0.1, Basophils # (Auto) 0.0, Sodium Level 132L, Potassium Level 4.5, Chloride Level 110H, Carbon Dioxide Level 13L, Anion Gap 9, Blood Urea Nitrogen 29H, Creatinine 0.81, Estimat Glomerular Filtration Rate > 60, BUN/Creatinine Ratio 36, Glucose Level 121H, Calcium Level 7.6L, Corrected Calcium 8.6, Magnesium Level 1.5L, Total Bilirubin 0.6, Aspartate Amino Transf (AST/SGOT) 15, Alanine Aminotransferase (ALT/SGPT) 19, Alkaline Phosphatase 168H , Total Protein 6.0L, Albumin 2.7L Microbiology 07/03/20 Blood Culture - Preliminary, Resulted No growth Assessment/Plan Assessment/Plan Assessment/Plan s/p small bowel resection with ileostomy takedown and ileoproctostomy anastamosis with bowel evisceration s/p ex lap, wash out, closure of abdominal wall, laparoscopic hernia repair with Phasix Mesh, wound vac placement uti conitnue abx labs in am encouraged to use IS ambulate lovenox scd's for dvt prophylaxis possible CXR if fever returns Clinical Quality Measures DVT/VTE Risk/Contraindication: Risk Factor Score Per Nursin RFS Level Per Nursing on Admit: 3=High ARIADNE CARDONA DO 07/05/20 1118: Subjective Subjective/Events-last exam Patient feeling better this morning. Using IS better. Pain controlled. Wound vac in place. Denies n/v fever sweats chill shortness of breath or chest pain. Objective Exam General Appearance: No Apparent Distress, Chronically ill HEENT: PERRL/EOMI, Normal ENT Inspection Neck: Normal Inspection, Non Tender, Supple Respiratory: Chest Non Tender, No Accessory Muscle Use, No Respiratory Distress Cardiovascular: Regular Rate, Rhythm, No Edema Gastrointestinal: soft, tenderness (wound vac at midline, incison c/d/i at other sites) Extremity: Non Tender, No Calf Tenderness Neurologic/Psychiatric: Alert, Oriented x3, No Motor/Sensory Deficits, Normal Mood/Affect, maintainability engineer II-XII Norm as Tested Skin: Normal Color, Warm/Dry Lymphatic: No Adenopathy Assessment/Plan Assessment/Plan Assessment/Plan s/p ex lap, wash out, closure of abdominal wall, laparoscopic hernia repair with Phasix Mesh, wound vac placement uti hypomagnesemia continue abx urinalysis chest x ray replace magnesium ambulate IS Supervisory-Addendum Brief Verification & Attestation Participated in pt care: history, MDM, physical Personally performed: exam, history, MDM, supervision of care Care discussed with: Medical Student Procedures: n/a Results interpretation: Verified all documentation Verification and Attestation of Medical Student E/M Service A medical student performed and documented this service in my presence. I reviewed and verified all information documented by the medical student and made modifications to such information, when appropriate. I personally performed the physical exam and medical decision making. Ariadne Cardona, Jul 05, 2020,11:18 NKECHI PAYTON MED STUDENT Jul 05, 2020 08:07 ARIADNE CARDONA DO Jul 05, 2020 11:18
[2020-07-05 08:20] VITALS: BP 134/69
--- NOTE | 2020-07-05 10:58 | Diagnostic Imaging Report ---
INDICATION: Fever. Comparison made with prior examination of 06/29/2020. FINDINGS: The heart size, mediastinal configuration, and pulmonary vascularity are within normal limits. There is no pleural effusion, pneumothorax, or pneumonia. The osseous structures are unremarkable. IMPRESSION: No acute cardiopulmonary abnormality. Dictated by: Dictated on workstation # [id number]
[2020-07-05] MEDS ORDERED: MAGNESIUM 1 GM/100 ML IVPB 100 ML IV ONE (11:15)
[2020-07-05] MEDS: ENOXAPARIN 40 MG/0.4 ML (LOVENOX) SYR SC SCH (12:26)
--- NOTE | 2020-07-05 13:02 | Progress Note - Hospitalist ---
Subjective HPI/CC On Admission Date Seen by Provider: Jul 05, 2020 Time Seen by Provider: 11:45 Patient was taken to the OR early this morning for dehiscence of small bowel into midline incision after ileostomy reconnection 2 days ago. The patient is awake and alert and has some abdominal discomfort but has no nausea vomiting. She denies chest pain. Subjective/Events-last exam Patient says she feels much better today. She had does have some incisional pain but overall feels better. She denies any chest pain or shortness of breath and has been walking in the halls. Review of Systems Gastrointestinal: Abdominal Pain (Incisional) Neurological: Weakness (Mild) Focused Exam Lactate Level 07/03/20 23:35: Lactic Acid Level 1.21 Objective Exam Vital Signs Vital Signs Date Time Temp Pulse Resp B/P (MAP) Pulse Ox O2 Delivery O2 Flow Rate FiO2 07/05/20 09:13 Room Air 07/05/20 08:20 36.3 97 18 134/69 (90) 99 07/04/20 04:52 21 07/04/20 02:31 3 Capillary Refill : Less Than 3 SecondsLess Than 3 Seconds General Appearance: No Apparent Distress, WD/WN HEENT: Other (Hirsute facial rash) Neck: Limited Range of Motion Respiratory: Lungs Clear, Normal Breath Sounds, No Accessory Muscle Use, No Respiratory Distress Cardiovascular: Regular Rate, Rhythm, No Gallop, No JVD, No Murmur, Normal Peripheral Pulses Gastrointestinal: Normal Bowel Sounds, Soft, Tenderness Rectal: Deferred Extremity: Normal Capillary Refill, Normal Inspection, No Pedal Edema Results/Procedures Lab Laboratory Tests 07/05/20 05:06 Patient resulted labs reviewed. Assessment/Plan Assessment and Plan Assess & Plan/Chief Complaint Postop from wound dehiscence and repair-currently doing well-Day number 2, continue walking Hypertension we'll restart her Toprol since currently it is beginning to climb, we will hold the BORIS inhibitor for 1 more day Coronary artery disease-stable Hyperlipidemia Low-grade fever -chest x-ray today was normal Diagnosis/Problems Diagnosis/Problems (1) Surgical wound dehiscence Status: Acute Qualifiers: Encounter type: initial encounter Qualified Codes: T81.31XA - Disruption of external operation (surgical) wound, not elsewhere classified, initial encounter (2) Evisceration of bowel Status: Acute Assessment & Plan: 07/04: Status post repair with placement of wound VAC. Hematoma caused the dehiscence (3) Coronary artery disease Status: Chronic Assessment & Plan: 07/04 Currently stable with no evidence acute event Qualifiers: Associated angina: without angina (4) Hyperlipidemia Status: Chronic (5) Hypertension Status: Chronic Assessment & Plan: 07/04: We will hold blood pressure medicine since her blood pressure slightly low. Clinical Quality Measures DVT/VTE Risk/Contraindication: Risk Factor Score Per Nursin RFS Level Per Nursing on Admit: 3=High REY MEMBRENO MD Jul 05, 2020 13:02
[2020-07-05] MEDS: meTOprolol SUCCINATE 100 MG (TOPROL XL) TAB PO SCH (13:14)
[2020-07-05 13:25] LABS: BILIRUBIN,URINE NEGATIVE (NEGATIVE); CLARITY,URINE CLEAR; COLOR,URINE YELLOW; GLUCOSE, URINE (UA) NEGATIVE (NEGATIVE); KETONES,URINE NEGATIVE (NEGATIVE); LEUKOCYTE ESTERASE ,URINE NEGATIVE (NEGATIVE); NITRITE,URINE NEGATIVE (NEGATIVE); PH,URINE 5.5 (5-9); PROTEIN,URINE TRACE (NEGATIVE)
[2020-07-05 13:32] LABS: AMORPHOUS SEDIMENT,UR MOD AMOR URATES /LPF; BACTERIA,URINE NEGATIVE /HPF; SQUAMOUS EPITHELIAL CELL,UR 0-2 /HPF
[2020-07-05 15:51] VITALS: BP 124/72
[2020-07-05 23:20] VITALS: BP 123/61
[2020-07-06] MEDS: NS IV 1000 ML 1,000 ML IV SCH ×2 (02:48→11:30)
[2020-07-06] MEDS: HYDROcodone/APAP 5 MG/325 MG (LORTAB) TAB PO PRN ×3 (03:11→11:42)
[2020-07-06] MEDS: CEFEPIME INJECTION 1,000 MG in WATER (STERILE) FOR INJECTION 10 ML IV SCH ×2 (05:41→11:36)
[2020-07-06 08:06] VITALS: BP 129/81
[2020-07-06] MEDS: metroNIDAZOLE 500MG/100ML IVPB 100 ML IV SCH (08:22)
[2020-07-06] MEDS: meTOprolol SUCCINATE 100 MG (TOPROL XL) TAB PO SCH (08:24)
--- NOTE | 2020-07-06 09:27 | Progress Note - Surgery ---
FITONKECHI MED STUDENT 07/06/20 0927: Subjective Date Seen by a Provider: Jul 06, 2020 Time Seen by a Provider: 08:20 Subjective/Events-last exam Pt appears comfortable and in no acute distress. Has shown improvement in IS usage and should continue working with it. 2 BM since last exam. Some abdominal tenderness noted with palpation. Denies nausea, vomiting, chills, fever. Focused Exam Lactate Level 07/03/20 23:35: Lactic Acid Level 1.21 Objective Exam Vital Signs Date Time Temp Pulse Resp B/P (MAP) Pulse Ox O2 Delivery O2 Flow Rate FiO2 07/06/20 08:06 37.4 82 18 129/81 (97) 100 Room Air 07/06/20 07:19 92 Room Air 07/05/20 23:20 35.4 89 20 123/61 (81) 97 Room Air 07/05/20 19:30 Room Air 07/05/20 15:51 36.1 89 18 124/72 (89) 99 Room Air I & O 07/06/20 07:00 Intake Total 1990 ml Output Total 1750 ml Balance 240 ml Capillary Refill : Less Than 3 SecondsLess Than 3 Seconds General Appearance: No Apparent Distress, WD/WN HEENT: Other (Hirsute facial rash) Neck: Limited Range of Motion Respiratory: Lungs Clear, Normal Breath Sounds, No Accessory Muscle Use, No Respiratory Distress Cardiovascular: Regular Rate, Rhythm, No Gallop, No JVD, No Murmur, Normal Peripheral Pulses Gastrointestinal: soft, tenderness (wound vac at midline, incison c/d/i at other sites) Extremity: Normal Capillary Refill, Normal Inspection, No Pedal Edema Neurologic/Psychiatric: Alert, Oriented x3, No Motor/Sensory Deficits, Normal Mood/Affect, chemical compounder helper II-XII Norm as Tested Skin: Normal Color, Warm/Dry Lymphatic: No Adenopathy Results Lab Laboratory Tests 07/05/20 13:14: Urine Color YELLOW, Urine Clarity CLEAR, Urine pH 5.5, Urine Specific [place] 1.020, Urine Protein TRACEH, Urine Glucose (UA) NEGATIVE, Urine Ketones NEGATIVE, Urine Nitrite NEGATIVE, Urine Bilirubin NEGATIVE, Urine Urobilinogen 0.2, Urine Leukocyte Esterase NEGATIVE, Urine RBC (Auto) NEGATIVE, Urine RBC NONE, Urine WBC NONE, Urine Squamous Epithelial Cells 0-2, Urine Crystals PRESENTH, Urine Amorphous Sediment MOD CRISTOBAL URATESH, Urine Bacteria NEGATIVE, Urine Casts NONE, Urine Mucus NEGATIVE, Urine Culture Indicated NO Microbiology 07/03/20 Blood Culture - Preliminary, Resulted No growth Assessment/Plan Assessment/Plan Assessment/Plan s/p ex lap, wash out, closure of abdominal wall, laparoscopic hernia repair with Phasix Mesh, wound vac placement uti hypomagnesemia continue abx urinalysis urine culture replace magnesium ambulate IS Clinical Quality Measures DVT/VTE Risk/Contraindication: Risk Factor Score Per Nursin RFS Level Per Nursing on Admit: 3=High ARIADNE CARDONA DO 07/06/201941: Subjective Subjective/Events-last exam Feeling better today. Had 2 bowel movements. Pain controlled. Wound vac at [facility]. Using incentive spirometry. Tolerating diet. Denies n/v fever sweats chills shortness of breath or chest pain. Objective Exam General Appearance: No Apparent Distress, Chronically ill HEENT: PERRL/EOMI, Normal ENT Inspection Neck: Normal Inspection, Supple Respiratory: Chest Non Tender, No Accessory Muscle Use, No Respiratory Distress Cardiovascular: Regular Rate, Rhythm, No Gallop, No JVD Gastrointestinal: soft, tenderness (wound vac at midline, incison c/d/i at other sites) Extremity: Normal Capillary Refill, Normal Inspection Neurologic/Psychiatric: Alert, Oriented x3, No Motor/Sensory Deficits, Normal Mood/Affect, chemical compounder helper II-XII Norm as Tested Skin: Normal Color, Warm/Dry Lymphatic: No Adenopathy Assessment/Plan Assessment/Plan Assessment/Plan s/p ex lap, wash out, closure of abdominal wall, laparoscopic hernia repair with Phasix Mesh, wound vac placement uti hypomagnesemia patient feeling better discussed with Dr. Hackett and wanting to move her to IRF wound care with wound vac change MWF discussed with Nursing Pain control Instructed need to use IS regularly. Supervisory-Addendum Brief Verification & Attestation Participated in pt care: history, MDM, physical Personally performed: exam, history, MDM, supervision of care Care discussed with: Medical Student Procedures: n/a Results interpretation: Verified all documentation Verification and Attestation of Medical Student E/M Service A medical student performed and documented this service in my presence. I reviewed and verified all information documented by the medical student and made modifications to such information, when appropriate. I personally performed the physical exam and medical decision making. Ariadne Cardona, Jul 06, 2020,19:42 NKECHI PAYTON MED STUDENT Jul 06, 2020 09:27 ARIADNE CARDONA DO Jul 06, 2020 19:42
--- NOTE | 2020-07-06 10:18 | Progress Note ---
Subjective Date Seen by a Provider: Jul 06, 2020 Time Seen by a Provider: 09:45 Subjective/Events-last exam Going to rehab Review of Systems General: Fatigue, Malaise Gastrointestinal: Abdominal Pain Neurological: Weakness Focused Exam Lactate Level 07/03/20 23:35: Lactic Acid Level 1.21 Objective Exam Last Set of Vital Signs Vital Signs Date Time Temp Pulse Resp B/P (MAP) Pulse Ox O2 Delivery O2 Flow Rate FiO2 07/06/20 08:06 37.4 82 18 129/81 (97) 100 Room Air 07/04/20 04:52 21 07/04/20 02:31 3 Capillary Refill : Less Than 3 SecondsLess Than 3 Seconds I&O Intake and Output 07/06/20 00:00 Intake Total 1410 ml Output Total 1350 ml Balance 60 ml Intake Oral 1180 ml IV Total 230 ml Output Urine Total 1350 ml # Voids 1 General: Alert, Oriented X3, Cooperative, No Acute Distress Lungs: Clear to Auscultation, Normal Air Movement Heart: Regular Rate, Normal S1, Normal S2, No Murmurs Neuro: Normal Gait, Normal Speech, Strength at 5/5 X4 Ext, Normal Tone Psych/Mental Status: Mental Status NL, Mood NL Results Lab Laboratory Tests 07/05/20 13:14: Urine Color YELLOW, Urine Clarity CLEAR, Urine pH 5.5, Urine Specific [place] 1.020, Urine Protein TRACEH, Urine Glucose (UA) NEGATIVE, Urine Ketones NEGATIVE, Urine Nitrite NEGATIVE, Urine Bilirubin NEGATIVE, Urine Urobilinogen 0.2, Urine Leukocyte Esterase NEGATIVE, Urine RBC (Auto) NEGATIVE, Urine RBC NONE, Urine WBC NONE, Urine Squamous Epithelial Cells 0-2, Urine Crystals PRESENTH, Urine Amorphous Sediment MOD CRISTOBAL URATESH, Urine Bacteria NEGATIVE, Urine Casts NONE, Urine Mucus NEGATIVE, Urine Culture Indicated NO Microbiology 07/03/20 Blood Culture - Preliminary, Resulted No growth Assessment/Plan Assessment/Plan Assess & Plan/Chief Complaint Assessment: Gi surgery Ileus Fragile status Plan: Inpatient rehab Clinical Quality Measures DVT/VTE Risk/Contraindication: Risk Factor Score Per Nursin RFS Level Per Nursing on Admit: 3=High SESAR BEEBE DO Jul 06, 2020 10:18
--- NOTE | 2020-07-06 10:20 | NUR ---
JIMBO NOTIFIED OF WOUND VAC CHANGE OUT PER DR VALENTIN.
--- NOTE | 2020-07-06 10:25 | NUR ---
CM/SS: Visited with pt a to plan for discharge Plan: Pt will admitted to Inpatient Rehab Facility /Unit when deemed appropriate Summary: Pt was recently discharged from the hospital on June 25 to home. Pt reports having some issues and needed to return. Pt reports having a mesh and a wound vac at the time. Pt reports feeling better and is eager to get back on her feet. Pt reports that doctor has indicated she can go back to rehab when appropriate. Pt feels as if she has a good relationship with the people in rehab and she really had a good experience with getting stronger, when she went last time. Discuss the [facility] Medicaid application process. Pt reports she was denied as she has too much money in the bank. Pt reports wanting to give the money to someone. This worker shares that she will have to have proof of where the money went or how the money was sent. Pt reports approval from financial services from [employer] and only needing to pay $100 and she has paid $50. Pt also shares she has not heard from [employer] as she had submitted paperwork but no approval. Pt is encouraged to follow up by calling Ros[facility]. She verbalizes understanding. Pt reports she is doing well mentally, she does not want to be in the hospital, but she has not been depressed. She has good support from friends and her jain. Pt thanks this worker for visiting. This worker will follow up.
[2020-07-06 11:14] VITALS: BP 129/81
[2020-07-06] MEDS: ENOXAPARIN 40 MG/0.4 ML (LOVENOX) SYR SC SCH (11:36)
--- NOTE | 2020-07-06 11:44 | Discharge Inst-Simple/Standard ---
Discharge Inst-Standard Patient Instructions/Follow Up Plan of Care/Instructions/FU: 2-3 WEEKS BARBIE Activity as Tolerated: No Discharge Diet: Regular Diet Other Inst to Patient Follow up Appt: Make appointment for 2-3 week BARBIE Instructions: No lifting greater than 10 pounds. No strenuous activity. May shower in 24 hours, no tub bath or soaking. Use incentive spirometer at home as directed. No Smoking Skin/Wound Care: You have special glue over your incision that will fall off on it's own. Wound vac to be change MWF. Symptoms to Report: Appetite Changes, Extremity Discoloration, Numbness/Tingling, Swelling Increased, Bleeding Excessive, Eyesight Changes, Pain Increased, Urine Color Change, Constipation(Persistent), Fever over 101 degree F, Pain/Pressure in chest, Urinating Difficulty, Cough Up/Vomit Blood, Heart Beat Irreg/Pounding, Pain/Pressure in jaw, Vaginal Bleeding Increase, Cramps in feet or legs, Lightheadedness, Pain/Pressure in shoulder, Diarrhea(Persistent), Memory Changes Suddenly, Questions/Concerns, Weight gain consecutive days, Dizziness/Fainting, Nausea/Vomiting, Shortness of Breath, Weight gain over 2 pounds If questions or concerns contact your physician Or seek help at emergency department. ARIADNE VALENTIN DO Jul 06, 2020 11:44
--- NOTE | 2020-07-06 12:34 | NUR ---
REPORT CALLED TO CASEY MODI
[2020-07-06 12:35] VITALS: BP 129/81
--- NOTE | 2020-07-10 06:56 | OPERATIVE REPORT ---
DATE OF SERVICE: 07/04/2020 PREOPERATIVE DIAGNOSIS: Evisceration of bowel. POSTOPERATIVE DIAGNOSIS: Evisceration of bowel. PROCEDURES PERFORMED: Exploratory laparotomy, washout of abdomen and closure of abdominal wall, laparoscopic hernia repair 15 x 20 cm Phasix mesh and placement of wound VAC 12 x 7 cm. SURGEON: Stuart Cardona DO. ANESTHESIA: General. ESTIMATED BLOOD LOSS: Minimal. COMPLICATIONS: None. INDICATIONS FOR PROCEDURE: The patient is a 55-year-old female, who previously underwent ileostomy takedown and ileoproctostomy. The patient was discharged from the hospital on February 28 and the patient started having increased drainage from the wound, was evaluated in the emergency department and was found to have evisceration of bowel. The patient was transferred to her hospital bed and taken to the operating room. The patient was explained the risks and benefits of procedures and she understands the risks and benefits and wishes to proceed. Consent was signed in the chart. DESCRIPTION OF PROCEDURE: The patient was taken to the operating suite. She was prepped and draped in the usual sterile fashion. Timeout was performed. The balbina had pulled through from the incision. These were all removed. There was an opening of approximately 4 cm at the midline and this is where the PDS suture had visibly pulled through. The PDS suture was then cut out and the midline incision was then opened completely. The abdomen was then inspected. In the subcutaneous layer of the incision, there was a significant amount of clot present, which was evacuated and suctioned. Hemostasis was achieved with cautery from one small area when the abdomen was opened and had minimal bleeding. The bowel also had a viable appearance. The abdomen was irrigated with copious amounts of irrigation. There was no active bleeding within the abdomen, so at this time, the left upper quadrant incision was then opened and a 12 mm trocar was then placed under direct visualization. Copious amounts of irrigation was used to irrigate the abdomen and suction. No other pathology was noted. All the small bowel had normal appearance. There were some adhesions that were present that were able to be bluntly taken down as well. At this time, a Phasix 15 x 20 cm mesh was inserted in the abdomen. This was used to hold down the bowel. The fascia was then closed using 1-0 looped PDS in a running fashion. A suture that was attached to the Phasix mesh was left up to the abdominal wall for tacking purposes later. Once the midline incision was then closed, the abdomen was insufflated and under direct visualization of the laparoscope, a 5 mm trocar was placed in the left lower quadrant and a 5 mm trocar was placed in the right upper quadrant. Using a SecureStrap Tacker, the Phasix mesh was then tacked into place, giving good overlap of the midline incision reinforcing the hernia defect closure. Once this was done, the abdomen was then desufflated and the trocars were removed. The 12 mm fascial defect was then closed using 0 Vicryl. The midline wound was then irrigated with copious amounts of irrigation. The overall defect was 12 x 7 cm and a wound VAC was then placed into the wound after it was cut to size with the overall dimensions being 12 x 7 cm and the wound VAC was attached to the Vac device after it was placed in the usual fashion and got good seal. The abdomen was then washed and dried and sterile bandages were applied. The patient tolerated the procedure well without any complications and she was taken to the recovery room in stable condition. Job ID: [id number] DocumentID: [id number] Dictated Date: 07/09/2020 20:58:56 Rope Coiling Machine Operator Date: 07/10/2020 06:56:33 Dictated By: DO JAZ FUENTES
== END 2020-07-06 12:40 | DRG 908 ==
LOC: EDUNIT# 21:39 → ER FS 21:41 → SDC 23:26 → 4TH 07-04 02:55
PROVIDERS: ADMIT Surgery; ATTEND Surgery
PROC: 0WCG0ZZ Extirpation of Matter from Peritoneal Cavity, Open Approach (ICD-10-PCS; 2020-07-04)
PROC: 0WUF4JZ Supplement Abdominal Wall with Synthetic Substitute, Percutaneous Endoscopic Approach (ICD-10-PCS; principal; 2020-07-04 00:16)
DX: T81.31XA Disruption of external operation (surgical) wound, not elsewhere classified, initial encounter (principal); L76.32 Postprocedural hematoma of skin and subcutaneous tissue following other procedure; E87.2 Acidosis; K43.9 Ventral hernia without obstruction or gangrene; I25.10 Atherosclerotic heart disease of native coronary artery without angina pectoris; E78.5 Hyperlipidemia, unspecified; I10 Essential (primary) hypertension; F41.9 Anxiety disorder, unspecified; F32.9 Major depressive disorder, single episode, unspecified; E83.42 Hypomagnesemia; R50.9 Fever, unspecified
CPT/HCPCS: 36415; 71045; 80048; 80053; 81000; 83605; 83735; 85025; 86141; 87040; 94664; 94760

== ENCOUNTER 2020-07-06 11:17 | Inpatient (IN) | payer OTHER ==
[~2020-07-06] VITALS: Ht 160 cm; Wt 75.8 kg
[2020-07-06] MEDS ORDERED: DOCUSATE SODIUM 100 MG (COLACE) CAP PO PRN (11:45)
[2020-07-06] MEDS ORDERED: CALCIUM CARBONATE 500 MG (TUMS) TAB.CHEW PO PRN (11:45)
[2020-07-06] MEDS ORDERED: ALPRAZolam 0.25 MG (XANAX) TAB PO PRN (11:45)
[2020-07-06] MEDS ORDERED: FLEET ENEMA ADULT 1 EA BTL PR PRN (11:45)
[2020-07-06] MEDS ORDERED: MELATONIN 3 MG TABLET PO PRN (11:45)
[2020-07-06] MEDS ORDERED: guaiFENesin/CODEINE (ROBITUSSIN AC) 10ML UDC PO PRN (11:45)
[2020-07-06] MEDS ORDERED: LACTULOSE SYRUP 10GM/15ML (ENULOSE) 30ML UDC PO PRN (11:45)
[2020-07-06] MEDS ORDERED: diphenhydrAMINE 25 MG TAB (BENADRYL) PO PRN (11:45)
[2020-07-06] MEDS ORDERED: LOPERAMIDE 2 MG (IMODIUM) TABLET PO PRN (11:45)
[2020-07-06] MEDS ORDERED: ONDANSETRON 4 MG (ZOFRAN) ORAL DISSOLVE TAB PO PRN (11:45)
[2020-07-06] MEDS ORDERED: BISACODYL 10 MG SUPP (DULCOLAX) PR PRN (11:45)
--- NOTE | 2020-07-06 12:30 | NUR ---
Pt admitted to room 231, from [address] [place] [id number] via w/c, accompanied by PT, & RN. BK YOUNG introduced to surroundings, call light, bed controls, phone, TV, temperature control, lights, meal times, smoking policy, visitor policy, side rail policy, bathrooms and showers. Patient Rights given to patient in the handbook. BK YOUNG verbalizes understanding that [facility] is not responsible for the loss or damage to any personal effects or valuables that are kept in the patients posession during their hospitalization. The following Patient Care Plans were discussed with the pt: Discharge Planning, Self Care Deficit, Impaired Mobility, Alteration in skin integrity. BK YOUNG verbalizes understanding of Interdisciplinary Patient Education. Patient and/or family were informed about the Rapid Response Team and its purpose. Patient received Patient Rights Booklet, which includes Privacy Act Statement and Data Collection Information Summary.
--- NOTE | 2020-07-06 13:58 | Occupational Therapy Eval ---
OT Evaluation-General/PLF Medical Diagnosis Admission Date Jul 06, 2020 at 12:33 Medical Diagnosis: debility; ileoproctostomy Onset Date: Jul 06, 2020 Therapy Diagnosis Therapy Diagnosis: Decreased ADL status Referral Physician: Roxann Referral Reason: Activity Tolerance, Self Care, Evaluation/Treatment, Strengthening/ROM Medical History Pertinent Medical History: Heart Failure, HTN, [place] Additional Medical History [place], high cholesterol, HTN, anx/ depression. Current History Pt to ARU Apr 17 for ischemic bowel resection. This admission, ileostomy takedown with ileoproctostomy, increased drainage and lump in abdomen, pt admitted to ER with small bowel eviscerated. Reviewed History: Yes Social History Home: Single Level Current Living Status: Alone Entry Into Home: Ramp Lives alone in trailer home, ramp to enter, walk in shower. Has 2WW and cane. ADL-Prior Level of Function SCALE: Activities may be completed with or without assistive devices. 5-Ybborfnqno-sjmbpkl completes the activity by him/herself with no assistance from a helper. 5-Set-up or Clean-up Assistance-helper sets up or cleans up; patient completes activity. [place] assists only prior to or following the activity. 4-Supervision or Touching Assistance-helper provides verbal cues and/or touchin g/steadying and/or contact guard assistance as patient completes activity. Assistance may be provided throughout the activity or intermittently. 3-Partial/Moderate Assistance-helper does LESS THAN HALF the effort. [place] lifts, holds or supports trunk or limbs, but provides less than half the effort. 2-Substantial/Maximal Assistance-helper does MORE THAN HALF the effort. [place] lifts or holds trunk or limbs and provides more than half the effort. 7-Iusadefcj-whuiqo does ALL the effort. Patient does none of the effort to complete the activity. Or, the assistance of 2 or more helpers is required for the patient to complete the activity. If activity was not attempted, code reason: 7-Patient Refused. 9-Not Applicable-not attempted and the patient did not perform the activity before the current illness, exacerbation or injury. 10-Not Attempted due to Environmental Limitations-(lack of equipment, weather restraints, etc.). 88-Not Attempted due to Medical Conditions or Safety Concerns. 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 Drive Self: No OT Current Status Subjective Pt seen in recliner. 5/10 pain per pt. Pt states has already had pain pills. Pt alert/ oriented. Pt agrees to OT eval/ treat. OT individual tx: [id number] (55) IN SERVICE EDUCATION TEACHER session: [id number] Mental Status/Objective Patient Orientation: Person, Place, Time, Situation, Normal For Age Attachments: Other-See Comments (wound vac.) Current Glasses/Contacts: Yes Hearing Aids: No Dentures/Partials: Yes Hand Dominance: Right Upper Extremity ROM WFL BUE Upper Extremity Coordination WFL BUE Upper Extremity Sensation WFL BUE Upper Extremity Strength WFL (4/5) Edema: none noted. ADL-Treatment Eating (QC): 6 (IND) Oral Hygiene (QC): 6 (IND as pt already completed prior to ARU admission.) Shower/Bathe Self (QC): 7 (denies at this time.) Upper Body Dressing (QC): 5 (s/u) Lower Body Dressing (QC): 3 (min A. completes EOB with assist for threading. stance with good balance at walker level. Pain noted in RLE hip flexion. ) On/Off Footwear (QC): 3 (min A due to pain. ) Toileting Hygiene (QC): 4 (SBA post BM) Other Treatments Pt oriented/ alert. Pt agrees to therapy. Pt sit to stand with SBA, utilizes walker with safety. Pt completes ADLs EOB. Pt requires assist with LB threading, though able to complete post-threading. Pt demonstrates good balance, states pain 5/10. Pt requires BM- BSC placed beside pt and completes with SBA. Pt stands and reaches to floor to gather pants. Pt returns to chair with all needs met, call light in reach. Education OT Patient Education: Correct positioning, Energy conservation, Modified ADL techniques, Progress toward Goal/Update tx plan, Purpose of tx/functional activities, Rehab process, Transfer techniques Teaching Recipient: Patient Teaching Methods: Demonstration, Discussion Response to Teaching: Verbalize Understanding, Return Demonstration OT [facility] Goals [facility] Goals Time Frame: Jul 20, 2020 Eating (QC): 6 Oral Hygiene (QC): 6 Toileting Hygiene (QC): 6 Shower/Bathe Self (QC): 6 Upper Body Dressing (QC): 6 Lower Body Dressing (QC): 6 On/Off Footwear (QC): 6 Additional Goals: 1-Demonstrate ADL Tasks, 2-Verbalize Understanding, 3- ImproveStrength/Fern 1=Demonstrate adherence to instructed precautions during ADL tasks. 2=Patient will verbalize/demonstrate understanding of assistive devices/modifications for ADL. 3=Patient will improve strength/tolerance for activity to enable patient to perform ADL's. OT Education/Plan Problem List/Assessment Assessment: Decreased Activ Tolerance, Decreased UE Strength, Impaired I ADL's, Impaired Self-Care Skills Discharge Recommendations Plan/Recommendations: Continue POC Therapy Discharge Recommendati: Home & Family Treatment Plan/Plan of Care Treatment,Training & Education: Yes Patient would benefit from OT for education, treatment and training to promote independence in ADL's, mobility, safety and/or upper extremity function for ADL's. Plan of Care: ADL Retraining, Concurrent Therapy, Functional Mobility, Group Exercise/Act as Ind, UE Funct Exercise/Act Treatment Duration: Jul 20, 2020 Frequency: At least 5 of 7 days/Wk (IRF) Estimated Hrs Per Day: 1.5 hours per day Agreement: Yes Rehab Potential: Good Time/GCodes Start Time: 13:15 Stop Time: 14:10 Total Time Billed (hr/min): 55 Billed Treatment Time OT individual tx: [id number] (55) 1, EVL, ADL 3 (55) MAISHA DAVENPORT OTR Jul 06, 2020 13:58
--- NOTE | 2020-07-06 14:11 | Physical Therapy Evaluation ---
PT Evaluation-General Medical Diagnosis Admission Date Jul 06, 2020 at 12:33 Medical Diagnosis: debility Onset Date: Jul 06, 2020 Therapy Diagnosis Therapy Diagnosis: weakness; abn gait Precautions Precautions/Isolations: Standard Precautions Referral Physician: Roxann Reason for Referral: Evaluation/Treatment Medical History Pertinent Medical History: CAD, Heart Failure, HTN, LA Current History Admitted to acute post dehiscence of small bowel. Small bowel resection with ileostomy takedown and ileoproctostomy anastamosis with bowel evisceration. Wall closure with hernia repair with mesh and wound vac placed. Reviewed History: Yes Social History Home: Single Level Current Living Status: Alone Entry Into Home: Ramp Prior Prior Level of Function SCALE: Activities may be completed with or without assistive devices. 6-Kzbpbdshbe-kyvqngz completes the activity by him/herself with no assistance from a helper. 5-Set-up or Clean-up Assistance-helper sets up or cleans up; patient completes activity. [place] assists only prior to or following the activity. 4-Supervision or Touching Assistance-helper provides verbal cues and/or touching/steadying and/or contact guard assistance as patient completes activity. Assistance may be provided throughout the activity or intermittently. 3-Partial/Moderate Assistance-helper does LESS THAN HALF the effort. [place] lif ts, holds or supports trunk or limbs, but provides less than half the effort. 2-Substantial/Maximal Assistance-helper does MORE THAN HALF the effort. [place] lifts or holds trunk or limbs and provides more than half the effort. 5-Lmkfvmmbz-qjcldz does ALL the effort. Patient does none of the effort to complete the activity. Or, the assistance of 2 or more helpers is required for the patient to complete the activity. If activity was not attempted, code reason: 7-Patient Refused. 9-Not Applicable-not attempted and the patient did not perform the activity before the current illness, exacerbation or injury. 10-Not Attempted due to Environmental Limitations-(lack of equipment, weather restraints, etc.). 88-Not Attempted due to Medical Conditions or Safety Concerns. Bed Mobility: 6 Transfers (B,C,W/C): 6 Gait: 6 (uses a cane for community ambulation) Stairs: 6 Indoor Mobility (Ambulation): Independent PT Evaluation-Current Subjective Pt is agreeable to PT. Reports her abdomen is sore with activiation of core muscles. Reports she feels somewhat weak. Pt/Family Goals Her goal is to return home as she was before. Objective Patient Orientation: Person, Place, Time, Situation ROM/Strength ROM Lower Extremities WNL Strength Lower Extremities B LE strength is grossly 4/5 throughout Integumentary/Posture Integumentary Refer to nursing notes for full assessment. Bowel Incontinence: No Bladder Incontinence: No Posture Slightly rounded shoulders but symmetrical Neuromuscular (Tone, Coordination, Reflexes) intact and functional Sensory Vision: Functional Hearing: Functional Hand Dominance: Right Sensation Right Lower Extremit: Intact Sensation Left Lower Extremity: Intact Transfers Roll Left to Right (QC): 3 (use of bed rails, takes extra time; painful) Sit to Lying (QC): 3 (assist with legs into bed) Lying to Sitting/Side of Bed(Q: 2 (assist to lift trunk; HOB elevated.) Sit to Stand (QC): 3 Chair/Xsr-mk-Wxnta Xfer(QC): 3 Toilet Transfer (QC): 3 Car Transfer (QC): 0 (not tested at this visit, will test at follow up treatment) Gait Does the Patient Walk?: Yes Mode of Locomotion: Walk Anticipated Mode of Locomotion: Walk Walk 10 feet (QC): 3 Walk 50 ft with 2 Turns(QC): 3 (CGA for safety) Walk 150 ft (QC): 3 Walking 10ft/uneven surface-QC: 0 (will assess at follow up visit) Gait Assistive Device: FWW Comments/Gait Description slow and relies on FWW Wheelchair Training Does the Pt Use a Wheelchair?: No Wheel 50 ft with 2 turns (QC): 9 Wheel 150 ft (QC): 9 Stairs 1 Step (curb) (QC): 0 4 Steps (QC): 0 12 Steps (QC): 88 Will assess steps at follow up visit. Balance Sitting Static: Normal Sitting Dynamic: Normal Standing Static: Fair Standing Dynamic: Fair Picking up an Object (QC): 88 Treatment Functional transfers with sit to stand multiple times throughout treatment. Functional gait short distances in the room with FWW with min-CGA for safety. Assessment/Needs Post acute hospital stay with resultant wound vac on her abdomen. She presents with decreased functional strngth, balance and mobilty that impairs bed mobility, transfers, and gait. She will benefit from skilled PT to address functional strength and mobility to allow her to return home as she was before. Rehab Potential: Good PT Short Term Goals Short Term Goals Time Frame: Jul 11, 2020 Sit to lyin Lying to sitting on side of be: 4 Sit to stand: 5 Walk 150 feet: 4 4 steps: 4 PT Group Home Goals Occupational Therapy Assistant Goals PT Occupational Therapy Assistant Goals Time Frame: Jul 22, 2020 Roll Left & Right (QC): 6 Sit to Lying (QC): 6 Lying-Sitting on Side/Bed(QC): 6 Sit to Stand (QC): 6 Chair/Tnw-oo-Yofjw Xfer(QC): 6 Toilet Transfer (QC): 6 Car Transfer (QC): 6 Does the Patient Walk: Yes Walk 10 feet (QC): 6 Walk 50ft with 2 Turns (QC): 6 Walk 150 ft (QC): 6 Walking 10ft on Uneven Surface: 6 1 Step (curb) (QC): 6 4 Steps (QC): 6 12 Steps (QC): 4 Picking up an Object (QC): 4 Wheel 50 feet with 2 turns (QC: 9 Wheel 150 feet: 9 PT Plan Problem List Problem List: Activity Tolerance, Functional Strength, Safety, Balance, Gait, Transfer, Bed Mobility Treatment/Plan Treatment Plan: Continue Plan of Care Treatment Plan: Bed Mobility, Education, Functional Activity Fern, Functional Strength, Group Therapy, Gait, Safety, Therapeutic Exercise, Transfers Treatment Duration: Jul 22, 2020 Frequency: At least 5 of 7 days/Wk (IRF) Estimated Hrs Per Day: 1.5 hours per day Patient and/or Family Agrees t: Yes Safety Risks/Education Patient Education: Safety Issues Teaching Recipient: Patient Teaching Methods: Discussion Response to Teaching: Reinforcement Needed Discharge Recommendations Therapy Discharge Recommendati: Post Acute PT Time/GCodes Time In: 1230 Time Out: 1315 Total Billed Treatment Time: 45 Total Billed Treatment visit EVM 15 FA 30 LEYDA GHOSH PT Jul 06, 2020 14:11
--- OUTSIDE RECORDS SUMMARY | 2020-07-06 14:44 | XMS REPORT | Continuity of Care Document ---
Author Organization Unknown Address Unknown Phone Unavailable Allergies Active Description Code Type Severity Reaction Onset Reported/Identified Relationship to Patient Clinical Status Yes No Known Drug Allergies [id number] Drug Allergy Unknown N/A 11/11/2019 Medications There [...] Ot I25.1 0 ATHSCL HEART DISEASE OF [place] CORONARY 03/08/2020 [facility] DO, SHEILA B Ot I25.2 OLD MYOCARDIAL INFARCTION 03/08/2020 [facility] DO, SHEILA B Ot I50.9 HEART FAILURE, UNSPECIFIED 03/08/2020 [facility] DO, SHEILA B Ot I95.8 1 POSTPROCEDURAL HYPOTENSION 03/08/2020 [facility] DO, SHEILA B Ot J96.0 0 ACUTE RESPIRATORY FAILURE, UNSP W HYPOXI 03/08/2020 [facility] DO, SHEILA B Ot K42.0 UMBILICAL HERNIA WITH OBSTRUCTION, WITHO 03/08/2020 [facility] DO, SHEILA B Ot K56.2 VOLVULUS 03/08/2020 [facility] DO, SHEILA B Ot K59.0 0 CONSTIPATION, UNSPECIFIED 03/08/2020 [facility] DO, SHEILA B Ot K65.1 PERITONEAL ABSCESS 03/08/2020 [facility] DO, SHEILA B Ot N17.9 ACUTE KIDNEY FAILURE, UNSPECIFIED 03/08/2020 [facility], SHEILA B Ot N39.0 URINARY TRACT INFECTION, SITE NOT SPECIF 03/08/2020 [facility], SHEILA B Ot R79.8 9 OTHER SPECIFIED ABNORMAL FINDINGS OF BLO 03/08/2020 [facility], SHEILA B Ot Z95.5 PRESENCE OF CORONARY ANGIOPLASTY IMPLANT 03/12/2020 [facility], SHEILA B Ot E78.0 0 PURE HYPERCHOLESTEROLEMIA, UNSPECIFIED 03/12/2020 [facility], SHEILA B Ot E87.1 HYPO-OSMOLALITY AND HYPONATREMIA 03/12/2020 [facility], SHEILA B Ot I11.0 HYPERTENSIVE HEART DISEASE WITH HEART FA 03/12/2020 [facility], SHEILA B Ot I25.1 0 ATHSCL HEART DISEASE OF [place] CORONARY 03/12/2020 [facility], SHEILA B Ot I25.2 OLD MYOCARDIAL INFARCTION 03/12/2020 [facility], SHEILA B Ot I50.9 HEART FAILURE, UNSPECIFIED 03/12/2020 [facility], SHEILA B Ot I95.8 1 POSTPROCEDURAL HYPOTENSION 03/12/2020 [facility], SHEILA B Ot J96.0 0 ACUTE RESPIRATORY FAILURE, UNSP W HYPOXI 03/12/2020 [facility], SHEILA B Ot K42.0 UMBILICAL HERNIA WITH OBSTRUCTION, WITHO 03/12/2020 [facility] DO, SHEILA B Ot K56.2 VOLVULUS 03/12/2020 [facility] DO, SHEILA B Ot K59.0 0 CONSTIPATION, UNSPECIFIED 03/12/2020 [facility] DO, SHEILA B Ot K65.1 PERITONEAL ABSCESS 03/12/2020 [facility] DO, SHEILA B Ot N17.9 ACUTE KIDNEY FAILURE, UNSPECIFIED 03/12/2020 [facility] DO, SHEILA B Ot N39.0 URINARY TRACT INFECTION, SITE NOT SPECIF 03/12/2020 [facility] DO, SHEILA B Ot R79.8 9 OTHER SPECIFIED ABNORMAL FINDINGS OF BLO 03/12/2020 [facility] DO, SHEILA B Ot Z95.5 PRESENCE OF CORONARY ANGIOPLASTY IMPLANT 03/12/2020 [facility] DO, SHEILA B Ot E78.0 0 PURE HYPERCHOLESTEROLEMIA, UNSPECIFIED 03/12/2020 [facility] DO, SHEILA B Ot E87.1 HYPO-OSMOLALITY AND HYPONATREMIA 03/12/2020 [facility] DO, SHEILA B Ot I11.0 HYPERTENSIVE HEART DISEASE WITH HEART FA 03/12/2020 [facility], SHEILA B Ot I25.1 0 ATHSCL HEART DISEASE OF [place] CORONARY 03/12/2020 [facility], SHEILA B Ot I25.2 OLD MYOCARDIAL INFARCTION 03/12/2020 [facility], SHEILA B Ot I50.9 HEART FAILURE, UNSPECIFIED 03/12/2020 [facility] DO, SHEILA B Ot I95.8 1 POSTPROCEDURAL HYPOTENSION 03/12/2020 [facility] DO, SHEILA B Ot J96.0 0 ACUTE RESPIRATORY FAILURE, UNSP W HYPOXI 03/12/2020 [facility], SHEILA B Ot K42.0 UMBILICAL HERNIA WITH OBSTRUCTION, WITHO 03/12/2020 [facility] DO, SHEILA B Ot K56.2 VOLVULUS 03/12/2020 [facility], SHEILA B Ot K59.0 0 CONSTIPATION, UNSPECIFIED 03/12/2020 [facility] DO, SHEILA B Ot K65.1 PERITONEAL ABSCESS 03/12/2020 [facility] DO, SHEILA B Ot N17.9 ACUTE KIDNEY FAILURE, UNSPECIFIED 03/12/2020 [facility] DO, SHEILA B Ot N39.0 URINARY TRACT INFECTION, SITE NOT SPECIF 03/12/2020 [facility] DO, SHEILA B Ot R79.8 9 OTHER SPECIFIED ABNORMAL FINDINGS OF BLO 03/12/2020 [facility] DO, SHEILA B Ot Z95.5 PRESENCE OF CORONARY ANGIOPLASTY IMPLANT 03/13/2020 [facility] DO, SHEILA B Ot E78.0 0 PURE HYPERCHOLESTEROLEMIA, UNSPECIFIED 03/13/2020 [facility] DO, SHEILA B Ot E87.1 HYPO-OSMOLALITY AND HYPONATREMIA 03/13/2020 [facility] DO, SHEILA B Ot I11.0 HYPERTENSIVE HEART DISEASE WITH HEART FA 03/13/2020 [facility], SHEILA B Ot I25.1 0 ATHSCL HEART DISEASE OF [place] CORONARY 03/13/2020 [facility], SHEILA B Ot I25.2 OLD MYOCARDIAL INFARCTION 03/13/2020 [facility], SHEILA B Ot I50.9 HEART FAILURE, UNSPECIFIED 03/13/2020 [facility], SHEILA B Ot I95.8 1 POSTPROCEDURAL HYPOTENSION 03/13/2020 [facility], SHEILA B Ot J96.0 0 ACUTE RESPIRATORY FAILURE, UNSP W HYPOXI 03/13/2020 [facility], SHEILA B Ot K42.0 UMBILICAL HERNIA WITH OBSTRUCTION, WITHO 03/13/2020 [facility], SHEILA B Ot K56.2 VOLVULUS 03/13/2020 [facility], SHEILA B Ot K59.0 0 CONSTIPATION, UNSPECIFIED 03/13/2020 [facility], SHEILA B Ot K65.1 PERITONEAL ABSCESS 03/13/2020 [facility], SHEILA B Ot N17.9 ACUTE KIDNEY FAILURE, UNSPECIFIED 03/13/2020 [facility], SHEILA B Ot N39.0 URINARY TRACT INFECTION, SITE NOT SPECIF 03/13/2020 [facility], SHEILA B Ot R79.8 9 OTHER SPECIFIED ABNORMAL FINDINGS OF BLO 03/13/2020 [facility], SHEIL[facility] B Ot Z95.5 PRESENCE OF CORONARY ANGIOPLASTY IMPLANT 03/13/2020 [facility], SHEILA B Ot D64.9 ANEMIA, UNSPECIFIED 03/13/2020 [facility], SHEILA B Ot E78.0 0 PURE HYPERCHOLESTEROLEMIA, UNSPECIFIED 03/13/2020 [facility], SHEILA B Ot E87.1 HYPO-OSMOLALITY AND HYPONATREMIA 03/13/2020 [facility], SHEILA B Ot E87.6 HYPOKALEMIA 03/13/2020 [facility], SHEILA B Ot I07.1 RHEUMATIC TRICUSPID INSUFFICIENCY 03/13/2020 [facility], SHEILA B Ot I11.0 HYPERTENSIVE HEART DISEASE WITH HEART FA 03/13/2020 [facility] DO, SHEILA B Ot I21.A 1 MYOCARDIAL INFARCTION TYPE 2 03/13/2020 [facility], SHEILA B Ot I25.1 0 ATHSCL HEART DISEASE OF [place] CORONARY 03/13/2020 [facility] DO, SHEILA B Ot I25.2 OLD MYOCARDIAL INFARCTION 03/13/2020 [facility] DO, SHEILA B Ot I50.9 HEART FAILURE, UNSPECIFIED 03/13/2020 [facility], SHEILA B Ot I95.8 1 POSTPROCEDURAL HYPOTENSION 03/13/2020 [facility], SHEILA B Ot J96.0 0 ACUTE RESPIRATORY FAILURE, UNSP W HYPOXI 03/13/2020 [facility], SHEILA B Ot J98.1 1 ATELECTASIS 03/13/2020 [facility], SHEILA B Ot K42.0 UMBILICAL HERNIA WITH OBSTRUCTION, WITHO 03/13/2020 [facility], SHEILA B Ot K56.2 VOLVULUS 03/13/2020 [facility], SHEILA B Ot K59.0 0 CONSTIPATION, UNSPECIFIED 03/13/2020 [facility], SHEILA B Ot K65.1 PERITONEAL ABSCESS 03/13/2020 [facility], SHEILA B Ot N17.9 ACUTE KIDNEY FAILURE, UNSPECIFIED 03/13/2020 [facility], SHEILA B Ot N39.0 URINARY TRACT INFECTION, SITE NOT SPECIF 03/13/2020 [facility], SHEILA B Ot R65.2 1 SEVERE SEPSIS WITH SEPTIC SHOCK 03/13/2020 [facility], SHEILA B Ot R79.8 9 OTHER SPECIFIED ABNORMAL FINDINGS OF BLO 03/13/2020 [facility] , SHEIAL B Ot Z95.5 PRESENCE OF CORONARY ANGIOPLASTY [...] SESAR Ot I25.10 ATHSCL HEART DISEASE OF [place] CORONARY 03/19/2020 [facility] DO, SESAR Ot K13.79 [...] SESAR Ot I25.10 ATHSCL HEART DISEASE OF [place] CORONARY 03/20/2020 [facility] DO, SESAR Ot K13.79 [...] SESAR Ot I25.10 ATHSCL HEART DISEASE OF [place] CORONARY 03/21/2020 [facility] DO, SESAR Ot K13.79 [...] SESAR Ot I25.10 ATHSCL HEART DISEASE OF [place] CORONARY 03/22/2020 [facility] DO, SESAR Ot K13.79 [...] SESAR Ot I25.10 ATHSCL HEART DISEASE OF [place] CORONARY 03/23/2020 [facility] DO, SESAR Ot K13.79 [...] SESAR Ot I25.10 ATHSCL HEART DISEASE OF [place] CORONARY 03/24/2020 [facility] DO, SESAR Ot K13.79 [...] SESAR Ot I25.10 ATHSCL HEART DISEASE OF [place] CORONARY 03/25/2020 [facility] DO, SESAR Ot K13.79 [...] SESAR Ot I25.10 ATHSCL HEART DISEASE OF [place] CORONARY 03/26/2020 [facility] DO, SESAR Ot K13.79 [...] SESAR Ot I25.10 ATHSCL HEART DISEASE OF [place] CORONARY 03/26/2020 [facility] DO, SESAR Ot K13.79 [...] SESAR Ot I25.10 ATHSCL HEART DISEASE OF [place] CORONARY 03/27/2020 [facility] DO, SESAR Ot K13.79 [...] SESAR Ot I25.10 ATHSCL HEART DISEASE OF [place] CORONARY 03/28/2020 [facility] DO, SESAR Ot K13.79 [...] SESAR Ot I25.10 ATHSCL HEART DISEASE OF [place] CORONARY 03/29/2020 [facility] DO, SESAR Ot K13.79 [...] SESAR Ot I25.10 ATHSCL HEART DISEASE OF [place] CORONARY 03/30/2020 [facility] DO, SESAR Ot K13.79 [...] SESAR Ot I25.10 ATHSCL HEART DISEASE OF [place] CORONARY 03/31/2020 [facility] DO, SESAR Ot K13.79 [...] SESAR Ot I25.10 ATHSCL HEART DISEASE OF [place] CORONARY 04/01/2020 [facility] DO, SESAR Ot K13.79 [...] Ot Z93.2 ILEOSTOMY STATUS 04/01/2020 [facility] DO, SESRA Ot Z95.5 PRESENCE OF CORONARY ANGIOPLASTY IMPLANT [...] SESAR Ot I25.10 ATHSCL HEART DISEASE OF [place] CORONARY 04/02/2020 [facility] DO, SESAR Ot K13.79 OTHER LESIONS OF ORAL MUCOSA 04/02/2020 [facility] DO, SESAR Ot L68.0 HIRSUTISM 04/02/2020 [facility] DO, SESAR Ot R50.9 FEVER, UNSPECIFIED 04/02/2020 [facility] DO, SESAR Ot R53.1 WEAKNESS 04/02/2020 [facility] DO, SESAR Ot R53.81 OTHER MALAISE 04/02/2020 [facility] DO, SESAR Ot R60.1 GENERALIZED EDEMA 04/02/2020 [...] SESAR Ot I25.10 ATHSCL HEART DISEASE OF [place] CORONARY 04/03/2020 [facility] DO, SESAR Ot K13.79 [...] SESAR Ot I25.10 ATHSCL HEART DISEASE OF [place] CORONARY 04/04/2020 [facility] DO, SESAR Ot K13.79 [...] SESAR Ot I25.10 ATHSCL HEART DISEASE OF [place] CORONARY 04/05/2020 [facility] DO, SESAR Ot K13.79 OTHER LESIONS OF ORAL MUCOSA 04/05/2020 [facility] DO, SESAR Ot L68.0 HIRSUTISM 04/05/2020 [facility] DO, SESAR Ot R50.9 FEVER, UNSPECIFIED 04/05/2020 [...] SESAR Ot I25.10 ATHSCL HEART DISEASE OF [place] CORONARY 04/06/2020 [facility] DO, SESAR Ot K13.79 [...] SESAR Ot I25.10 ATHSCL HEART DISEASE OF [place] CORONARY 04/06/2020 [facility] DO, SESAR Ot K13.79 [...] SANDERS SHEILA B Ot E87.6 HYPOKALEMIA 05/07/2020 [facility], SHEILA B Ot I07.1 RHEUMATIC TRICUSPID INSUFFICIENCY 05/07/2020 [facility], SHEILA B Ot I11.0 HYPERTENSIVE HEART DISEASE WITH HEART FA 05/07/2020 [facility], SHEILA B Ot I21.A 1 MYOCARDIAL INFARCTION TYPE 2 05/07/2020 [facility] DO, SHEILA B Ot I25.1 0 ATHSCL HEART DISEASE OF [place] CORONARY 05/07/2020 [facility], SHEILA B Ot I25.2 OLD MYOCARDIAL INFARCTION 05/07/2020 [facility], SHEILA B Ot I50.9 HEART FAILURE, UNSPECIFIED 05/07/2020 [facility], SHEILA B Ot I95.8 1 POSTPROCEDURAL HYPOTENSION 05/07/2020 [facility], SHEILA B Ot J96.0 0 ACUTE RESPIRATORY FAILURE, UNSP W HYPOXI 05/07/2020 [facility], SHEILA B Ot J98.1 1 ATELECTASIS 05/07/2020 [facility], SHEILA B Ot K42.0 UMBILICAL HERNIA WITH OBSTRUCTION, WITHO 05/07/2020 [facility], SHEILA B Ot K56.2 VOLVULUS 05/07/2020 [facility], SHEILA B Ot K59.0 0 CONSTIPATION, UNSPECIFIED 05/07/2020 [facility], SHEILA B Ot K65.1 PERITONEAL ABSCESS 05/07/2020 [facility], SHEILA B Ot N17.9 ACUTE KIDNEY FAILURE, UNSPECIFIED 05/07/2020 [facility], SHEILA B Ot N39.0 URINARY TRACT INFECTION, SITE NOT SPECIF 05/07/2020 [facility], SHEILA B Ot R65.2 1 SEVERE SEPSIS WITH SEPTIC SHOCK 05/07/2020 [facility], SHEILA B Ot R79.8 9 OTHER SPECIFIED ABNORMAL FINDINGS OF BLO 05/07/2020 [facility], SHEILA B Ot Z95.5 PRESENCE OF CORONARY ANGIOPLASTY IMPLANT 05/07/2020 [facility], SHEILA B Ot D64.9 ANEMIA, UNSPECIFIED 05/07/2020 [facility], SHEILA B Ot E78.0 0 PURE HYPERCHOLESTEROLEMIA, UNSPECIFIED 05/07/2020 [facility], SHEILA B Ot E87.1 HYPO-OSMOLALITY AND HYPONATREMIA 05/07/2020 [facility], SHEILA B Ot E87.6 HYPOKALEMIA 05/07/2020 [facility], SHEILA B Ot I07.1 RHEUMATIC TRICUSPID INSUFFICIENCY 05/07/2020 [facility], SHEILA B Ot I11.0 HYPERTENSIVE HEART DISEASE WITH HEART FA 05/07/2020 [facility], SHEILA B Ot I21.A 1 MYOCARDIAL INFARCTION TYPE 2 05/07/2020 [facility], SHEILA B Ot I25.1 0 ATHSCL HEART DISEASE OF [place] CORONARY 05/07/2020 [facility], SHEILA B Ot I25.2 OLD MYOCARDIAL INFARCTION 05/07/2020 [facility], SHEILA B Ot I50.9 HEART FAILURE, UNSPECIFIED 05/07/2020 [facility], SHEILA B Ot I95.8 1 POSTPROCEDURAL HYPOTENSION 05/07/2020 [facility], SHEILA B Ot J96.0 0 ACUTE RESPIRATORY FAILURE, UNSP W HYPOXI 05/07/2020 [facility], SHEILA B Ot J98.1 1 ATELECTASIS 05/07/2020 [facility], SHEILA B Ot K42.0 UMBILICAL HERNIA WITH OBSTRUCTION, WITHO 05/07/2020 [facility], SHEILA B Ot K56.2 VOLVULUS 05/07/2020 [facility], SHEILA B Ot K59.0 0 CONSTIPATION, UNSPECIFIED 05/07/2020 [facility], SHEILA B Ot K65.1 PERITONEAL ABSCESS 05/07/2020 [facility], SHEILA B Ot N17.9 ACUTE KIDNEY FAILURE, UNSPECIFIED 05/07/2020 [facility], SHEILA B Ot N39.0 URINARY TRACT INFECTION, SITE NOT SPECIF 05/07/2020 [facility], SHEILA B Ot R65.2 1 SEVERE SEPSIS WITH SEPTIC SHOCK 05/07/2020 [facility], SHEILA B Ot R79.8 9 OTHER SPECIFIED ABNORMAL FINDINGS OF BLO 05/07/2020 [facility], SHEILA B Ot Z95.5 PRESENCE OF CORONARY ANGIOPLASTY IMPLANT 05/07/2020 [facility], SHEILA B Ot D64.9 ANEMIA, UNSPECIFIED 05/07/2020 [facility], SHEILA B Ot E78.0 0 PURE HYPERCHOLESTEROLEMIA, UNSPECIFIED 05/07/2020 [facility], SHEILA B Ot E87.1 HYPO-OSMOLALITY AND HYPONATREMIA 05/07/2020 [facility], SHEILA B Ot E87.6 HYPOKALEMIA 05/07/2020 [facility], SHEILA B Ot I07.1 RHEUMATIC TRICUSPID INSUFFICIENCY 05/07/2020 [facility], SHEILA B Ot I11.0 HYPERTENSIVE HEART DISEASE WITH HEART FA 05/07/2020 [facility], SHEILA B Ot I21.A 1 MYOCARDIAL INFARCTION TYPE 2 05/07/2020 [facility], SHEILA B Ot I25.1 0 ATHSCL HEART DISEASE OF [place] CORONARY 05/07/2020 [facility], SHEILA B Ot I25.2 OLD MYOCARDIAL INFARCTION 05/07/2020 [facility], SHEILA B Ot I50.9 HEART FAILURE, UNSPECIFIED 05/07/2020 [facility], SHEILA B Ot I95.8 1 POSTPROCEDURAL HYPOTENSION 05/07/2020 [facility], SHEILA B Ot J96.0 0 ACUTE RESPIRATORY FAILURE, UNSP W HYPOXI 05/07/2020 [facility], SHEILA B Ot J98.1 1 ATELECTASIS 05/07/2020 [facility], SHEILA B Ot K42.0 UMBILICAL HERNIA WITH OBSTRUCTION, WITHO 05/07/2020 [facility], SHEILA B Ot K56.2 VOLVULUS 05/07/2020 [facility], SHEILA B Ot K59.0 0 CONSTIPATION, UNSPECIFIED 05/07/2020 [facility], SHEILA B Ot K65.1 PERITONEAL ABSCESS 05/07/2020 [facility], SHEILA B Ot N17.9 ACUTE KIDNEY FAILURE, UNSPECIFIED 05/07/2020 [facility], SHEILA B Ot N39.0 URINARY TRACT INFECTION, SITE NOT SPECIF 05/07/2020 [facility], SHEILA B Ot R65.2 1 SEVERE SEPSIS WITH SEPTIC SHOCK 05/07/2020 [facility], SHEILA B Ot R79.8 9 OTHER SPECIFIED ABNORMAL FINDINGS OF BLO 05/07/2020 [facility], SHEILA B Ot Z95.5 PRESENCE OF CORONARY [...] UNSPECIFIED ABDOMINAL PAIN 05/27/2020 CASE BENJI Abel [employer] Ot I 10 ESSENTIAL (PRIMARY) HYPERTENSION 05/29/2020 LAUREENJEANINEBENJI [employer] Ot I 10 ESSENTIAL (PRIMARY) HYPERTENSION 05/29/2020 [facility]UREENJEANINEBENJI [employer] Ot I 10 ESSENTIAL (PRIMARY) HYPERTENSION 06/17/2020 [facility] DO, SHEILA B Ot Z01.8 18 ENCOUNTER FOR OTHER PREPROCEDURAL EXAMIN 06/19/2020 [facility] DO, ANNIE Roman Ot K56.609 UNSP INTESTNL OBST, UNSP TO PARTIAL V 06/19/2020 [facility] DO, ANNIE Abel Ot R10.9 UNSPECIFIED ABDOMINAL PAIN 06/19/2020 LAUREENJEANINEBENJI [employer] Ot I 10 ESSENTIAL (PRIMARY) HYPERTENSION 06/26/2020 [facility] DO, SHEILA B Ot Z01.8 18 ENCOUNTER FOR OTHER PREPROCEDURAL EXAMIN 06/26/2020 [facility] DO, SHEILA B Ot Z20.8 28 CONTACT W AND EXPOSURE TO OTH VIRAL COMM 06/26/2020 [facility] DO, SHEILA B Ot Z93.2 ILEOSTOMY STATUS 06/29/2020 BENJI WILLOUGHBY [employer] Ot I 10 ESSENTIAL (PRIMARY) HYPERTENSION 07/02/2020 [facility] DO, SHEILA B Ot Z43.2 ENCOUNTER FOR ATTENTION TO ILEOSTOMY 07/02/2020 [facility] DO, SHEILA B Ot Z53.3 1 LAPAROSCOPIC SURGICAL PROCEDURE CONVERTE 07/03/2020 [facility] DO, ANNIE Roman Ot K56.609 UNSP INTESTNL OBST, UNSP TO PARTIAL V 07/03/2020 [facility] DO, ANNIE L Ot R10.9 UNSPECIFIED ABDOMINAL PAIN 07/03/2020 BENJI WILLOUGHBY [employer] Ot I 10 ESSENTIAL (PRIMARY) HYPERTENSION 07/03/2020 SHEILA DE OLIVEIRA DO Ot Z01.8 18 ENCOUNTER FOR OTHER PREPROCEDURAL EXAMIN 07/03/2020 SHEILA DE OLIVEIRA DO Ot Z20.8 28 CONTACT W AND EXPOSURE TO OTH VIRAL COMM 07/03/2020 SHEILA DE OLIVEIRA DO Ot Z93.2 ILEOSTOMY STATUS Procedures Code Description Performed By Per formed On [id number] ME ASURE OF CARDIAC SAMPL PRESSURE, L H 03/04/2020 [id number] UOROSCOPY OF MULT COR ART USING L OSM 03/04/2020 [id number] BY PASS ILEUM TO CUTANEOUS WITH AUTOL SUB 03/05/2020 [id number] EX CISION OF LARGE INTESTINE, OPEN APPROA 03/05/2020 [id number] IN SPECTION OF LOWER INTESTINAL TRACT, EN 03/05/[id number] NOVAK OF PERITONEAL CAVITY, PERCUTANE 03/16/2020 [id number] EX CISION OF ILEUM, OPEN APPROACH 06/24/2020 [id number] IN SPECTION OF PERITONEAL CAVITY, PERCUTA 06/24/2020 [...] culture - 03/04/20 18:10 Bacterial urine culture [id number] NRG COLONY COUNT >100,000/ML NRG SUSCEPTIBILITY SUSCEPTIBILITY [...] ncentration <= NRG Nitrofurantoin susceptibility test by nc nimum inhibitory concentration <= NRG Amoxicillin and [...] pa yobani - 03/04/20 23:59 WRISTBAND NUMBER [id number] NRG ABO+Rh group OP NRG Blood group [...] NRG Blood type T Indirect antibody screen [facility] 03/08/20 18:53 WRISTBAND NUMBER [id number] NRG ABO+Rh group OP NRG Blood group antibody screen NEGATIVE NR G Whole blood hemoglobin and hematocrit [facility] 03/09/20 01:05 Venous blood hemoglobin measurement (mass/volume) [...] Blood hypochromia detection by light [facility] Blood nivia cells detection by [...] pa yobani - 03/17/20 10:00 WRISTBAND NUMBER [id number] NRG ABO+Rh group OP NRG Blood group [...] pa yobani - 06/24/20 07:03 WRISTBAND NUMBER [id number] NRG ABO+Rh group OP NRG Blood group antibody screen NEGATIVE NR G Serum or plasma choriogonadotropin (preg armando test) detection - 06/24/20 07:55 Serum or plasma choriogonadotropin ( test) de tection NEGATIVE NEGATIVE Serum or plasma creatinine measurement ( mass/volume) - 06/24/20 07:55 Serum or plasma creatinine measurement (mass/volume) 0.99 mg/dL 0.60-1.30 Whole blood hemoglobin and hematocrit [facility] - 06/29/20 04:29 Venous blood hemoglobin measurement [...] culture - 06/29/20 18:30 Bacterial urine culture [id number] NRG COLONY COUNT . NRG SUSCEPTIBILITY REPORTED PREDOMINANT BY RML AND NRG MRSA SCREEN SUSCEPTIBILTIY REPORTED 07/01/20 11:15 NRG RAPID ID PRELIM RAPID ID TESTING AT [facility] NRG Dirithromycin susceptibility test by [...] lactic acid measurement (moles/volume) 1.21 mmol/L 0.50-2.00 Bacterial blood culture - 07/03/20 23:35 Bacterial blood culture NG NRG Bacterial blood culture - 07/03/20 23:35 Bacterial blood culture NG NRG Complete blood count (CBC) with automate d white blood cell (WBC) differential - 07/05/20 05:06 Blood leukocytes automated count (number/volume) 16.4 10*3/uL 4.3-11.0 Blood erythrocytes automated count (number/volume) 3.65 10*6/uL 4.35-5.85 Venous blood hemoglobin measurement (mass/volume) 10.2 g/dL 11.5-16.0 Blood hematocrit (volume fraction) 30 % 35-52 Automated erythrocyte mean corpuscular volume 82 [ foz_us] 80-99 Automated erythrocyte mean corpuscular h emoglobin (mass per erythrocyte) 28 pg 25-34 Automated erythrocyte mean corpuscular h emoglobin concentration measurement (mass/volume) 34 g/dL 32-36 Automated erythrocyte distribution width ratio 15. 1 % 10.0- 14.5 Automated blood platelet count (count/volume) 355 10*3/uL 130-400 Automated blood platelet mean volume measurement 8.4 [foz_us] 7.4-10.4 Automated blood neutrophils/100 leukocytes 82 % 42-75 Automated blood lymphocytes/100 leukocytes 5 % 12-44 Blood monocytes/100 leukocytes 13 % 0-12 Automated blood eosinophils/100 leukocytes 1 % 0-10 Automated blood basophils/100 leukocytes 0 % 0-10 Blood neutrophils automated count (number/volume) 13.4 10*3 1.8-7.8 Blood lymphocytes automated count (number/volume) 0.8 10*3 1.0-4.0 Blood monocytes automated count (number/volume) 2. 1 10*3 0.0-1.0 Automated eosinophil count 0.1 10*3/uL 0 .0-0.3 Automated blood basophil count (count/volume) 0.0 10*3/uL 0.0-0.1 Comprehensive metabolic panel - 07/05/20 05:06 Serum or plasma sodium measurement (moles/volume) 132 mmol/L 135-145 Serum or plasma potassium measurement (moles/volume) 4.5 mmol/L 3.6-5.0 Serum or plasma chloride measurement (moles/volume) 110 mmol/L 98-107 Carbon dioxide 13 mmol/L 21-32 Serum or plasma anion gap determination (moles/volume) 9 mmol/L 5-14 Serum or plasma urea nitrogen measurement (mass/volume ) 29 mg/dL 7-18 Serum or plasma creatinine measurement (mass/volume) 0.81 mg/dL 0.60-1.30 Serum or plasma urea nitrogen/creatinine mass ratio 36 NRG Serum or plasma creatinine measurement w ith calculation of estimated glomerular filtration rate > NRG Serum or plasma glucose measurement (mass/volume) 121 mg/dL 70-105 Serum or plasma calcium measurement (mass/volume) 7.6 mg/dL 8.5-10.1 Serum or plasma total bilirubin measurement (mass/volu me) 0.6 mg/dL 0.1-1.0 Serum or plasma alkaline phosphatase patrizia surement (enzymatic activity/volume) 168 U/L 40-136 Serum or plasma aspartate aminotransfera se measurement (enzymatic activity/volume) 15 U/L 5-34 Serum or plasma alanine aminotransferase measurement (enzymatic activity/volume) 19 U/L 0-55 Serum or plasma protein measurement (mass/volume) 6.0 g/dL 6.4-8.2 Serum or plasma albumin measurement (mass/volume) 2.7 g/dL 3.2-4.5 CALCIUM CORRECTED 8.6 mg/dL 8.5-10.1 Magnesium - 07/05/20 05:06 Magnesium 1.5 mg/dL 1.6-2.4 Complete urinalysis with reflex to cultu re - 07/05/20 13:14 Urine color determination YELLOW NRG Urine clarity determination CLEAR NR G Urine pH measurement by test strip 5.5 5-9 Specific gravity of urine by test strip 1.020 1.016-1.022 Urine protein assay by test strip, semi-quantitative TRACE NEGATIVE Urine glucose detection by automated test [...] leukocyte count by microscopy (number/high power field) NONE NRG Bacteria detection in urine sediment by light microsco py NEGATIVE NRG Squamous epithelial cells detection in u rine sediment by light microscopy 0-2 NRG Crystals detection in urine sediment by light microsco py PRESENT NRG Casts detection in urine sediment by light microscopy NONE NRG Mucus detection in urine sediment by light microscopy NEGATIVE NRG Complete urinalysis with reflex to culture NO NRG Amorphous sediment detection in urine sediment by ligh t microscopy MOD CRISTOBAL URATES NRG Encounters ACCT No. Visit Date/Time Discharge Status Pt. Type Provider Facility Loc./Unit Complaint [id number] 07/04/2020 02:55:00 12:40:00 DIS Inpatient ARIADNE VALENTIN DO [facility] 4TH EVISCERATION OF BOWEL,S URGICAL WOUND DEHISCENCE [id number] 06/24/2020 06:23:00 13:59:00 DIS Inpatient SHEILA DE OLIVEIRA DO [facility] 4TH ILEOSTOMY [id number] 06/19/2020 10:46:00 23:59:59 CLS Outpatient BERTINFAYE SHEILA SANDERS [facility] LAB FS PRE OP REQUIREMENT [id number] 06/17/2020 05:41:00 13:56:00 DIS Outpatient SHEILA DE OLIVEIRA DO [facility] PREOP ILEOSTOMY [id number] 05/26/2020 14:21:00 23:59:59 CLS Outpatient BENJI WILLOUGHBY [facility] LAB FS HTN [id number] 03/13/2020 11:35:00 14:15:00 DIS Inpatient CONCEPCIÓN SANDERS SESAR [facility] IRF DEBILITY [id number] 03/04/2020 20:27:00 11:05:00 DIS Inpatient BERTINFAYE SHEILA SANDERS B [facility] 4TH ISCHEMIC BOWEL,HX CAD,A KI [id number] 03/04/2020 17:29:00 17:29:00 CAN Preadmit ADELAVENSTANNIE MURCIA DO [facility] ER FS CONSTIPATION [id number] 11/11/2019 14:29:00 17:00:00 DIS Emergency RAY COPPOLA, MIHAELA Blake [facility] ER FS TACHY; ELEV BP [id number] 07/06/2020 12:33:[address] Inpatient SESAR BEEBE DO [facility] IRF DEBILITY
--- NOTE | 2020-07-06 14:46 | ST Cognitive Linguistic Eval ---
Speech Evaluation-General Medical Diagnosis debility Onset Date: Jul 06, 2020 Therapy Diagnosis Therapy Diagnosis: Cognitive-communication Referral Referring Physician: Dr. Hackett Medical History Pertinent Medical History: CAD, Heart Failure, HTN, MS Reviewed History: Yes Social History Current Living Status: Alone Speech PLF-Current Status Prior Level of Function Patient lived alone where she was independent for her daily needs. Subjective Patient was pleasant and cooperative with the cognitive assessment. Language Eval: Auditory Comprehends Simple Yes/No Ques: Functional Indent/Objects Multiple [place]: Functional Ident/Pics in Multiple [place]: Functional Follows 1-Step Commands: Functional Follows Complex Directions: Functional Follows General Conversations: Functional Language Eval: Verbal Language Completes Spontaneous Greeting: Functional Produces Auto, Serial Info: Functional Imitates Simple Words/Phrases: Functional Word Finding: Functional Requests Basic Needs: Functional States Basic Personal Info: Functional Expresses Complex Ideas: Functional Objective Cognitive Domain Attention: WNL Memory: WNL Problem Solving: Functional Executive Functions: WNL Visuospatial Skills: WNL Composite Severity Rating: WNL Clock Drawing Severity Rating: WNL Objective Formal/Standardized Tests [facility] Status ([facility]) Results 28/30, within normal range of function Oral Motor/Speech Production Within Normal Limits Impression Patient is a pleasant 55 y/o female who was admitted to the ARU s/p abdominal surgery. The patient was given the UMS with a score of 28/30 obtained. Patient's score falls in the normal range of function and will not require further ST services at this time. Speech Patient Assess Expression of Ideas/Wants: Expression (4) Understanding Verbal Content: Understands (4) Brief Interview-Mental Status: Yes Repetition of Three Words: Three (3) Temporal Orientation: Year: Correct (3) Temporal Orientation: Month: Accurate within 5 days(2) Temporal Orientation: Day: Correct (1) Recall : Wear to say "Sock": Yes, no cue required (2) Recall : Color: Yes, no cue required (2) Recall : Bed: Yes, no cue required (2) Memory/Recall Ability: Current season, Location of own room, That he or she is in a hsp/hsp unit Speech-Plan Patient/Family Goals Patient/Family Goals: Patient plans on returning to her home where she has many friends for support of her daily needs. Treatment Plan Speech Therapy Treatment Plan: Discontinue ST Treatment Duration: Jul 06, 2020 Frequency: 1 time per week Estimated Hrs Per Day: .25 hour per day Rehab Potential: Good Barriers to Learning: None identified Pt/Family Agrees to Plan: Yes Safety Risks/Education Teaching Recipient: Patient Teaching Methods: Discussion Response to Teaching: Verbalize Understanding Education Topics Provided: Safety within her room Time Speech Therapy Time In: 14:10 Speech Therapy Time Out: 14:25 Total Billed Time: 15 Billed Treatment Time 1, TABITHA Ames Jul 06, 2020 14:46
--- NOTE | 2020-07-06 15:07 | Occupational Ther Daily Note ---
OT Current Status-Daily Note Subjective Pt in bed when therapy entered room. No c/o pain. Pt agreeable to therapy. Mental Status/Objective Patient Orientation: Person, Place, Time, Situation Attachments: IV ADL-Treatment Therapy Code Descriptions/Definitions Functional [place] Measure: 0=Not Assessed/NA 4=Minimal Assistance 1=Total Assistance 5=Supervision or Setup 2=Maximal Assistance 6=Modified [place] 3=Moderate Assistance 7=Complete IndependenceSCALE: Activities may be completed with or without assistive devices. 6-Uquxsujcnl-prakqbj completes the activity by him/herself with no assistance from a helper. 5-Set-up or Clean-up Assistance-helper sets up or cleans up; patient completes activity. [place] assists only prior to or following the activity. 4-Supervision or Touching Assistance-helper provides verbal cues and/or touching/steadying and/or contact guard assistance as patient completes activity. Assistance may be provided throughout the activity or intermittently. 3-Partial/Moderate Assistance-helper does LESS THAN HALF the effort. [place] lifts, holds or supports trunk or limbs, but provides less than half the effort. 2-Substantial/Maximal Assistance-helper does MORE THAN HALF the effort. [place] lifts or holds trunk or limbs and provides more than half the effort. 7-Bqsnvrldx-dtjlsr does ALL the effort. Patient does none of the effort to complete the activity. Or, the assistance of 2 or more helpers is required for the patient to complete the activity. If activity was not attempted, code reason: 7-Patient Refused. 9-Not Applicable-not attempted and the patient did not perform the activity before the current illness, exacerbation or injury. 10-Not Attempted due to Environmental Limitations-(lack of equipment, weather restraints, etc.). 88-Not Attempted due to Medical Conditions or Safety Concerns. Other Treatment Co-treat with PT (14:25-15:00) due to the need of 2 skilled clinicians for safety during transfers and functional mobility. PT focusing on mobility, LE strength, and transfers. OT facilitating UE strengthening, ADL skills, and functional transfers. Pt. ambulated to gym with SBA and walker. Once in gym, pt. tolerated 20 minutes of fine motor activities while working on standing balance. The fine motor activities focused on bilateral shoulder ROM, crossing midline, security screener strengthening, and hand eye coordination. Pt. required rest breaks between activities due to fatigue from standing. Pt. then completed balance activity for 10 minutes focusing on shifting weight and dynamic standing balance. Pt with PT in gym when OT treatment complete. All needs met. Education OT Patient Education: Correct positioning, Energy conservation, Progress toward Goal/Update tx plan, Purpose of tx/functional activities, Reviewed precautions, Rehab process, Safety issues, Transfer techniques Teaching Recipient: Patient Teaching Methods: Demonstration, Discussion Response to Teaching: Verbalize Understanding, Return Demonstration OT Fci Goals Fci Goals Time Frame: Jul 20, 2020 Eating (QC): 6 Oral Hygiene (QC): 6 Toileting Hygiene (QC): 6 Shower/Bathe Self (QC): 6 Upper Body Dressing (QC): 6 Lower Body Dressing (QC): 6 On/Off Footwear (QC): 6 Additional Goals: 1-Demonstrate ADL Tasks, 2-Verbalize Understanding, 3- ImproveStrength/Fern 1=Demonstrate adherence to instructed precautions during ADL tasks. 2=Patient will verbalize/demonstrate understanding of assistive devices/modifications for ADL. 3=Patient will improve strength/tolerance for activity to enable patient to perform ADL's. OT Education/Plan Problem List/Assessment Assessment: Decreased Activ Tolerance, Decreased UE Strength, Impaired Funct Balance, Impaired I ADL's, Impaired Self-Care Skills Discharge Recommendations Plan/Recommendations: Continue POC Treatment Plan/Plan of Care Treatment,Training & Education: Yes Patient would benefit from OT for education, treatment and training to promote independence in ADL's, mobility, safety and/or upper extremity function for ADL's. Plan of Care: ADL Retraining, Concurrent Therapy, Functional Mobility, Group Exercise/Act as Ind, UE Funct Exercise/Act Treatment Duration: Jul 20, 2020 Frequency: At least 5 of 7 days/Wk (IRF) Estimated Hrs Per Day: 1.5 hours per day Agreement: Yes Rehab Potential: Good Time/GCodes Start Time: 14:25 Stop Time: 15:00 Total Time Billed (hr/min): 35 Billed Treatment Time 1, FA 2 (30 minutes) LEYDA HOBSON Jul 06, 2020 15:07
--- NOTE | 2020-07-06 15:19 | Physical Therapy Daily Note ---
PT Daily Note-Current Subjective Patient in recliner pre tx, agrees to PT, has 7/10 abdominal pain. Will be co- treating with OT due to poor patient mobility, strength, endurance, work on more advanced standing balance activity, the need to coordinate UE and LE during activity. Appearance Patient in recliner post tx with nurse call, phone, tray, all need smet. Mental Status Patient Orientation: Person, Place, Situation wound vac Transfers SCALE: Activities may be completed with or without assistive devices. 3-Qmnlkdjjno-nmxhwex completes the activity by him/herself with no assistance from a helper. 5-Set-up or Clean-up Assistance-helper sets up or cleans up; patient completes activity. [place] assists only prior to or following the activity. 4-Supervision or Touching Assistance-helper provides verbal cues and/or touching/steadying and/or contact guard assistance as patient completes activity. Assistance may be provided throughout the activity or intermittently. 3-Partial/Moderate Assistance-helper does LESS THAN HALF the effort. [place] lifts, holds or supports trunk or limbs, but provides less than half the effort. 2-Substantial/Maximal Assistance-helper does MORE THAN HALF the effort. [place] lifts or holds trunk or limbs and provides more than half the effort. 4-Qchkjovih-gkwyfn does ALL the effort. Patient does none of the effort to complete the activity. Or, the assistance of 2 or more helpers is required for the patient to complete the activity. If activity was not attempted, code reason: 7-Patient Refused. 9-Not Applicable-not attempted and the patient did not perform the activity before the current illness, exacerbation or injury. 10-Not Attempted due to Environmental Limitations-(lack of equipment, weather restraints, etc.). 88-Not Attempted due to Medical Conditions or Safety Concerns. Sit to Stand (QC): 4 Chair/Ywq-ho-Obxej Xfer(QC): 4 Toilet Transfer (QC): 4 Car Transfer (QC): 4 During treatment patient need to use the restroom for a BM, does so without assist, no assist needed for pants or wiping. Gait Training Does the Patient Walk?: Yes Distance: 120'x2 Walk 10 feet (QC): 4 Walk 50 ft with 2 Turns(QC): 4 Gait Persons Needed: 1 Gait Assistive Device: FWW CGA, slow but steady ambulation Stair Training Stair Training: Handrails/: uses walker #of Steps: 1 1 Step (curb) (QC): 4 CGA, cues for foot placement Neuromuscular standing balance and endurance training, with reaching for rings, placing clothespins, and kicking a balloon. Treatments transfers, ambulation, balance training, stairs. PT worked on transfers, ambulation, balance, training, OT also worked on balance training. Assessment Current Status: Fair Progress improving general mobility and strength. PT Short Term Goals Short Term Goals Time Frame: Jul 11, 2020 Sit to lyin Lying to sitting on side of be: 4 Sit to stand: 5 Walk 150 feet: 4 4 steps: 4 PT Ingot Stripper Goals Ingot Stripper Goals PT Ingot Stripper Goals Time Frame: Jul 22, 2020 Roll Left & Right (QC): 6 Sit to Lying (QC): 6 Lying-Sitting on Side/Bed(QC): 6 Sit to Stand (QC): 6 Chair/Bgl-zv-Aeeor Xfer(QC): 6 Toilet Transfer (QC): 6 Car Transfer (QC): 6 Does the Patient Walk: Yes Walk 10 feet (QC): 6 Walk 50ft with 2 Turns (QC): 6 Walk 150 ft (QC): 6 Walking 10ft on Uneven Surface: 6 1 Step (curb) (QC): 6 4 Steps (QC): 6 12 Steps (QC): 4 Picking up an Object (QC): 4 Wheel 50 feet with 2 turns (QC: 9 Wheel 150 feet: 9 PT Plan Problem List Problem List: Activity Tolerance, Functional Strength, Safety, Balance, Gait, Transfer, Bed Mobility, ROM Treatment/Plan Treatment Plan: Continue Plan of Care Treatment Plan: Bed Mobility, Education, Functional Activity [place], Functional Strength, Group Therapy, Gait, Safety, Therapeutic Exercise, Transfers Treatment Duration: Jul 22, 2020 Frequency: At least 5 of 7 days/Wk (IRF) Estimated Hrs Per Day: 1.5 hours per day Patient and/or Family Agrees t: Yes Safety Risks/Education Patient Education: Gait Training, Transfer Techniques, Correct Positioning, Safety Issues Teaching Recipient: Patient Teaching Methods: Demonstration, Discussion Response to Teaching: Reinforcement Needed Time/GCodes Time In: 1425 Time Out: 1510 Total Billed Treatment Time: 45 Total Billed Treatment 1 visit NM 35' FA 10' co-treat with OT from [id number], PT alone from [id number] KEI CRUZ PT Jul 06, 2020 15:19
--- NOTE | 2020-07-06 15:24 | NUR ---
DR BEEBE NOTIFIED OF PATIENT'S ARRIVAL AND REQ FOR PAIN. ORDER TO REQUEST FROM DR VALENTIN PAIN MED
[2020-07-06] MEDS ORDERED: HYDROcodone/APAP 5 MG/325 MG (LORTAB) TAB ONE (15:25)
[2020-07-06] MEDS ORDERED: morphine INJ 4 MG/ML 1 ML (VIAL/SYRINGE) ONE (15:27)
--- NOTE | 2020-07-06 15:40 | NUR ---
WOUND CARE VAC CHANGED BY WOUND CARE TEAM AT THIS TIME. PATIENT C/O WRITHING PAIN 09/05. UNABLE TO TOLERATE. DR VALENTIN NOTIFIED WITH NEW ORDERS RECEIVED. 1533: ATTEMPT 2 MG MSO4 WITHOUT RELIEF. 1539: 2MG MSO4. PATIENT REPORTS PAIN 06/05. CONT TO MONITOR.
--- NOTE | 2020-07-06 15:43 | NUR ---
THE PT CAME DOWN FROM 4TH FLOOR- DUE TO HER BEING A SURGERY PT I DID NOT COMPLETE THE MED REC (IT LOOKS IF KEVIN FROM PRE[facility] ENTERED THE MED REC)- HOWEVER I USED THE EXT MED HISTORY AND CALLED [facility] IN [place] VERIFY THE MED REC THE FOLLOWING ARE FILL DATES FROM [facility]: 04-28-2020 METOPROLOL TART 100MG #180/90DS 05-07-2020 PROTONIX 40MG #90/90DS 06-19-2020 LISINOPRIL 20MG #60/30DS 07-02-2020 MACORDANTIN 50MG #30/5DS ON 05-07-2020 PT RECEIVED PLAVIX 75MG #90 AND ASPIRIN 81MG #90 HOWEVER AFTER HER SURGERY DISCHARGE THESE MEDICATIONS WERE STOPPED. AT THIS TIME I AM NOT ADDING THEM BACK TO THE MED REC DUE TO THE SURGEON STOPPING THEM
[2020-07-06 16:00] VITALS: BP 136/74
[2020-07-06] MEDS ORDERED: ONDANSETRON 4 MG/2 ML (SDV) Z0FRAN IVP PRN (17:45)
[2020-07-06] MEDS ORDERED: HYDROcodone/APAP 5 MG/325 MG (LORTAB) TAB PO PRN (17:45)
[2020-07-06] MEDS ORDERED: RT-ALBUTEROL SULF 2.5 MG/3 ML PRE-MIX VIAL INH PRN (17:45)
--- NOTE | 2020-07-06 17:55 | NUR ---
NEXT WOUND VAC CHANGE 10:00 07/08/20. INTERVENTION ENTERED TO PREMEDICATE PATIENT 30 MIN PRIOR. PATIENT IS SBA, FWW , ALERT , ORIENT AND PLEASANT AT THIS TME. DR BEEBE NOTIFIED MED REC IS FINISHED AND ONLY ORDER IS DIET FROM DR VALENTIN.
--- NOTE | 2020-07-06 20:21 | NUR ---
SPOKE WITH DR. VALENTIN AND RECEIVED ORDER FOR NORMAL SALINE AT 100ML/HR.
[2020-07-06] MEDS: ENOXAPARIN 40 MG/0.4 ML (LOVENOX) SYR SC SCH (20:24)
--- NOTE | 2020-07-06 20:24 | NUR ---
LOVENOX Q24 FOR THIS EVENING NON-ADMINISTERED D/T THE FACT THAT 40MG LOVENOX Q24 WAS ALREADY RECEIVED TODAY ON FOURTH FLOOR AT 1136.
[2020-07-06] MEDS: CEFEPIME INJECTION 1,000 MG in WATER (STERILE) FOR INJECTION 10 ML IV SCH (20:44)
[2020-07-06] MEDS: polyethylene glycoL POWDER 17 GM (MIRALAX) PACK PO SCH (20:44)
[2020-07-06] MEDS: NS IV 1000 ML 1,000 ML IV SCH (20:44)
[2020-07-06] MEDS: SENNA W/DOCUSATE (SENOKOT S) TABLET PO SCH (20:45)
[2020-07-06] MEDS: DOCUSATE SODIUM 100 MG (COLACE) CAP PO SCH (20:45)
[2020-07-06] MEDS ORDERED: metroNIDAZOLE 500MG/100ML IVPB 100 ML ONE (21:49)
[2020-07-06] MEDS: metroNIDAZOLE 500MG/100ML IVPB 100 ML IV SCH (21:54)
[2020-07-06] MEDS: HYDROcodone/APAP 5 MG/325 MG (LORTAB) TAB PO PRN (22:01)
[2020-07-07] MEDS: CEFEPIME INJECTION 1,000 MG in WATER (STERILE) FOR INJECTION 10 ML IV SCH ×5 (01:15→23:16)
[2020-07-07] MEDS: NS IV 1000 ML 1,000 ML IV SCH ×3 (03:31→23:17)
[2020-07-07] MEDS: HYDROcodone/APAP 5 MG/325 MG (LORTAB) TAB PO PRN ×4 (03:32→20:55)
[2020-07-07 05:38] LABS: BASOPHILS % (AUTO) 0 % (0-10); EOSINOPHILS # (AUTO) 0.2 10^3/uL (0.0-0.3); EOSINOPHILS % (AUTO) 2 % (0-10); HEMATOCRIT 29 % (35-52); HEMOGLOBIN 9.4 G/DL (11.5-16.0); LYMPHOCYTES # (AUTO) 0.7 X 10^3 (1.0-4.0); LYMPHOCYTES % (AUTO) 6 % (12-44); MEAN CORPUSCULAR HEMOGLOBIN 27 PG (25-34); MEAN CORPUSCULAR HGB CONC 33 G/DL (32-36); MEAN CORPUSCULAR VOLUME 83 FL (80-99); MEAN PLATELET VOLUME 8.9 FL (7.4-10.4); MONOCYTES # (AUTO) 1.6 X 10^3 (0.0-1.0); MONOCYTES % (AUTO) 12 % (0-12); NEUTROPHILS # (AUTO) 10.9 X 10^3 (1.8-7.8); NEUTROPHILS % (AUTO) 81 % (42-75); PLATELET COUNT 353 10^3/uL (130-400); RED CELL DISTRIBUTION WIDTH 14.9 % (10.0-14.5); WHITE BLOOD COUNT 13.4 10^3/uL (4.3-11.0)
[2020-07-07 05:43] VITALS: BP 160/80
[2020-07-07] MEDS: metroNIDAZOLE 500MG/100ML IVPB 100 ML IV SCH ×3 (05:51→23:16)
[2020-07-07 05:53] LABS: ALBUMIN 2.7 GM/DL (3.2-4.5); CHLORIDE 109 MMOL/L (98-107); POTASSIUM 4.1 MMOL/L (3.6-5.0); SODIUM 134 MMOL/L (135-145)
[2020-07-07 05:56] LABS: GLUCOSE 93 MG/DL (70-105); TOTAL PROTEIN 6.2 GM/DL (6.4-8.2)
[2020-07-07 05:57] LABS: CARBON DIOXIDE 17 MMOL/L (21-32)
[2020-07-07 05:58] LABS: BILIRUBIN,TOTAL 0.3 MG/DL (0.1-1.0)
[2020-07-07 05:59] LABS: ALKALINE PHOSPHATASE 147 U/L (40-136); GFR ESTIMATED > 60
[2020-07-07 06:00] LABS: BUN/CREATININE RATIO 17
[2020-07-07 06:02] LABS: ALANINE AMINOTRANSFERASE 13 U/L (0-55)
[2020-07-07 06:23] LABS: EOSINOPHILS % (MANUAL) 2 %; LYMPHOCYTES % (MANUAL) 5 %; MONOCYTES % (MANUAL) 9 %; NEUTROPHILS % (MANUAL) 84 %
--- NOTE | 2020-07-07 06:23 | PM&R Post Admission Assessment ---
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 At this current time she is very week, labs remain stable, WBC is 16 but her prior level of functioning was ambulatory as she had prior to March critical illness. Past Rrwnzjw-Ukqpmb-Amyqbz Hx Past Med/Social Hx: Reviewed Nursing Past Med/Soc Hx, Reviewed and Corrections made Patient Social History Marrital Status: single Employed/Student: unemployed Alcohol Use: Denies Use Recreational Drug Use: No Smoking Status: Never a Smoker 2nd Hand Smoke Exposure: No Physical Abuse Screen: No Sexual Abuse: No Recent Foreign Travel: No Contact w/other who traveled: No Recent Hopitalizations: Yes Seasonal Allergies Seasonal Allergies: Yes Past Medical History Surgeries: Abdominal, Cardiac, Coronary Stent Respiratory: Pneumonia Currently Using CPAP: No Currently Using BIPAP: No Cardiac: Heart Attack, High Cholesterol, Hypertension Sexually Transmitted Disease: No HIV/AIDS: No Gastrointestinal: Obstructive Bowel, Chronic Constipation Psychosocial: Sleep Difficulties, Anxiety, Depression History of Blood Disorders: No Adverse Reaction to Blood Mcgrath: No (HAD TRANSFUSION WITHOUT PROBLEMS) Family History Cardiovascular disease 19 FATHER Hypertension 19 MOTHER No Pertinent Family Hx, Hypertension, Other Conditions/Hx Prior Level of Function Bed Mobility: 6 Transfers: 6 Gait: 6 (uses a cane for community ambulation) Stairs: 6 Indoor Mobility (Ambulation): Independent Self Care: Independent Functional Cognition: Independent 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 Drive Self: No Current Level of Fuctioning Roll Left to Right: 3 (use of bed rails, takes extra time; painful) Sit to Lyin (assist with legs into bed) Lying to Sitting/Side of Bed: 2 (assist to lift trunk; HOB elevated.) Sit to Stand: 4 Chair/Npl-pp-Tlekc Xfer: 4 Car Transfer: 4 Does the Patient Walk: Yes Mode of Locomotion: Walk Anticipated Mode of Locomotion: Walk Walk 10 feet: 4 Walk 50 ft with 2 Turns: 4 Walk 150 ft: 3 Walking 10ft on uneven surface: 0 (will assess at follow up visit) Gait Assistive Device: FWW Does the Pt Use a Wheelchair: No Wheel 50 ft with 2 turns: 9 Wheel 150 ft: 9 #of Steps: 1 1 Step (curb): 4 4 Steps: 0 12 Steps: 88 Picking up an Object: 88 Eatin (IND) Oral Hygiene: 6 (IND as pt already completed prior to ARU admission.) Shower/Bathe Self: 7 (denies at this time.) Upper Body Dressin (s/u) Lower Body Dressin (min A. completes EOB with assist for threading. stance with good balance at walker level. Pain noted in RLE hip flexion. ) On/Off Footwear: 3 (min A due to pain. ) Toileting Hygiene: 4 (SBA post BM) PM&R Allergy/Meds/Data Review Allergies Coded Allergies: No Known Drug Allergies (Unverified , 11/11/19) Home Medications Scheduled Lisinopril (Lisinopril), 20 MG PO BID, (Reported) Metoprolol Tartrate (Metoprolol Tartrate), 100 MG PO BID, (Reported) Nitrofurantoin Macrocrystal (Nitrofurantoin), 50 MG PO Q6H Pantoprazole Sodium (Pantoprazole Sodium), 40 MG PO DAILY, (Reported) Scheduled PRN Alprazolam (Alprazolam), 0.25 MG PO Q8H PRN for ANXIETY, (Reported) Oxycodone HCl (Oxycodone HCl), 5 MG PO Q4H PRN for PAIN-MODERATE (5-7), (Reported) Discontinued Medications Aspirin (Aspirin EC), 81 MG PO DAILY, (Reported) Clopidogrel Bisulfate (Clopidogrel), 75 MG PO DAILY, (Reported) Current Medications Current Medications Reviewed Laboratory Data Laboratory Tests 07/07/20 04:24: White Blood Count 13.4H, Red Blood Count 3.43L, Hemoglobin 9.4L, Hematocrit 29L, Mean Corpuscular Volume 83, Mean Corpuscular Hemoglobin 27, Mean Corpuscular Hemoglobin Concent 33, Red Cell Distribution Width 14.9H, Platelet Count 353, Mean Platelet Volume 8.9, Neutrophils (%) (Auto) 81H, Lymphocytes (%) (Auto) 6L, Monocytes (%) (Auto) 12, Eosinophils (%) (Auto) 2, Basophils (%) (Auto) 0, Neutrophils # (Auto) 10.9H, Lymphocytes # (Auto) 0.7L, Monocytes # (Auto) 1.6H, Eosinophils # (Auto) 0.2, Basophils # (Auto) 0.0, Sodium Level 134L, Potassium Level 4.1, Chloride Level 109H, Carbon Dioxide Level 17L, Anion Gap 8, Blood Urea Nitrogen 12, Creatinine 0.70, Estimat Glomerular Filtration Rate > 60, BUN/Creatinine Ratio 17, Glucose Level 93, Calcium Level 8.0L, Corrected Calcium 9.0, Total Bilirubin 0.3, Aspartate Amino Transf (AST/SGOT) 8, Alanine Aminotransferase (ALT/SGPT) 13, Alkaline Phosphatase 147H, Total Protein 6.2L, Albumin 2.7L Review of Systems Constitutional: see HPI, dizziness, malaise, weakness EENTM: no symptoms reported Respiratory: no symptoms reported Cardiovascular: no symptoms reported Gastrointestinal: abdominal pain, loss of appetite, nausea Genitourinary: no symptoms reported Musculoskeletal: no symptoms reported Skin: no symptoms reported Psychiatric/Neurological: Anxiety, Depressed All Other Systems Reviewed Negative Unless Noted: Yes Physical Exam Physical Exam Vital Signs Vital Signs - First Documented 07/06/20 16:00 Temp 36.6 Pulse 90 Resp 16 B/P (MAP) 136/74 (94) Pulse Ox 100 O2 Delivery Room Air Capillary Refill : Less Than 3 Seconds Height, Weight, BMI Height: '" Weight: lbs. oz. kg; 28.55 BMI Method: General Appearance: No Apparent Distress, WD/WN, Chronically ill Eyes: Bilateral Eye Normal Inspection, Bilateral Eye PERRL HEENT: PERRL/EOMI, Normal ENT Inspection, Pharynx Normal Neck: Full Range of Motion, Normal Inspection, Non Tender, Supple, Carotid Bruit Respiratory: Chest Non Tender, Lungs Clear, Normal Breath Sounds, No Accessory Muscle Use, No Respiratory Distress Cardiovascular: Regular Rate, Rhythm, No Gallop, No JVD, No Murmur, Normal Peripheral Pulses Gastrointestinal: Normal Bowel Sounds, No Organomegaly, No Pulsatile Mass, Soft, Tenderness, Other (wound vac in place) Back: Normal Inspection, No CVA Tenderness, No Vertebral Tenderness Extremity: Normal Capillary Refill, Normal Inspection, Normal Range of Motion, Non Tender, No Calf Tenderness, Pedal Edema Neurologic/Psychiatric: Alert, Oriented x3, No Motor/Sensory Deficits, Normal Mood/Affect, bag hanger II-XII Norm as Tested, Motor Weakness (generalized weakness all extremities 4/5) Skin: Normal Color, Warm/Dry Lymphatic: No Adenopathy PM&R Medical Assessment & Plan REHAB/MEDICAL ASSESSMENT AND PLAN: REHAB IMPAIRMENT GROUP: Debility ETIOLOGIC DIAGNOSIS: Debility The comorbidities that impact the patients function and/or functional outcome by: chronic debility since March 2020 critical illness, poor social support, poor nutrition and nutrition REHAB PLAN: The patient is being admitted to our comprehensive inpatient rehabilitation facility and can tolerate the intensity of service consisting of at least: 180 minutes of therapy a day, 5 out of 7 days a week Rehab treatment will consist of: PT OT will focus on regaining prior function since revision of ileostomy and help with energy conservation and regaining independence in ADL's The patient/family has a good understanding of our discharge process and will benefit from an interdisciplinary inpatient rehabilitation program. The patient has potential to make improvement and is in need of at least two of the following multidisciplinary therapies including but not limited to physical, occupational, speech, and prosthetics and orthotics. Additionally the patient will need services from respiratory, nutritional services, wound care, psychology, etc. (Customize this to each patient). Given the patients complex condition and risk of further medical complications, rehabilitation services cannot be safely or effectively provided at a lower level of care such as a fdc facility. BARRIERS TO DISCHARGE: Poor reserve ESTIMATED LOS: 7 days DISPOSITION: Home RELEVANT CHANGES SINCE PREADMISSION SCREENING: I have compared the patients medical and functional status at the time of the preadmission screening and there are: no changes PROGNOSIS: Good REHABILITATION GOALS: 1. PT OT will focus on regaining prior function since revision of ileostomy and help with energy conservation and regaining independence in ADL's All the above goals were reviewed with the patient and he/she is in agreement. By signing this document, I acknowledge that I have personally performed a full physical examination on this patient within 24 hours of admission to this inpatient rehabilitation facility and have determined the patient to be able to tolerate the above course of treatment at an intensive level for a reasonable period of time. I will be completing a detailed individualized Plan of Care for this patient by day #4 of the patients stay based upon the Preadmission Screen, the Post-Admission Evaluation, and the therapy evaluations. Admission Dx/Comorbidities: (1) Debility ICD Codes: R53.81 - Other malaise (2) Evisceration of bowel Status: Acute (3) Surgical wound dehiscence Status: Acute ICD Codes: T81.31XA - Disruption of external operation (surgical) wound, not elsewhere classified, initial encounter (4) Hypertensive emergency Status: Acute ICD Codes: I16.1 - Hypertensive emergency (5) Hypertension Status: Chronic ICD Codes: I10 - Essential (primary) hypertension (6) Hyperlipidemia Status: Chronic ICD Codes: E78.5 - Hyperlipidemia, unspecified (7) Coronary artery disease Status: Chronic ICD Codes: I25.10 - Atherosclerotic heart disease of [place] coronary artery without angina pectoris (8) Abdominal pain Status: Acute ICD Codes: R10.9 - Unspecified abdominal pain (9) Anasarca ICD Codes: R60.1 - Generalized edema (10) Anemia ICD Codes: D64.9 - Anemia, unspecified (11) Hirsutism ICD Codes: L68.0 - Hirsutism (12) Leukocytosis ICD Codes: D72.829 - Elevated white blood cell count, unspecified Assessment/Plan Assessment and Plan Assess & Plan/Chief Complaint Assessment: Debility s/p critical illness and VDRF in March 2020 Iliostomy s/p takedown with wound dehiscence and s/p revision with wound vac in place 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
[2020-07-07 06:24] LABS: RBC MORPH NORMAL
--- NOTE | 2020-07-07 06:27 | PM&R Progress Note ---
Subjective HPI/CC On Admission Date Seen by Provider: Jul 07, 2020 Time Seen by Provider: 10:45 Subjective/Events-last exam WBC 13.4 down from 16 Watery diarrhea Buttpaste ordered for ramos-area Lortab taken this morning Checked meds and labs Reviewed therapy notes Conferred with comparative sociology professor of Systems General: Fatigue, Malaise Neurological: Weakness Objective Exam Vital Signs Vital Signs Date Time Temp Pulse Resp B/P (MAP) Pulse Ox O2 Delivery O2 Flow Rate FiO2 07/07/20 08:45 Room Air 07/07/20 05:43 36.8 94 16 160/80 (106) 96 Capillary Refill : Less Than 3 Seconds General Appearance: No Apparent Distress, WD/WN, Chronically ill HEENT: PERRL/EOMI, Normal ENT Inspection, Pharynx Normal Neck: Full Range of Motion, Normal Inspection, Non Tender, Supple, Carotid Bruit Respiratory: Chest Non Tender, Lungs Clear, Normal Breath Sounds, No Accessory Muscle Use, No Respiratory Distress Cardiovascular: Regular Rate, Rhythm, No Gallop, No JVD, No Murmur, Normal Peripheral Pulses Gastrointestinal: Normal Bowel Sounds, No Organomegaly, No Pulsatile Mass, Soft, Tenderness, Other (wound vac in place) Back: Normal Inspection, No CVA Tenderness, No Vertebral Tenderness Extremity: Normal Capillary Refill, Normal Inspection, Normal Range of Motion, Non Tender, No Calf Tenderness, Pedal Edema Neurologic/Psychiatric: Alert, Oriented x3, No Motor/Sensory Deficits, Normal Mood/Affect, board setter II-XII Norm as Tested, Motor Weakness (generalized weakness all extremities 4/5) Skin: Normal Color, Warm/Dry Lymphatic: No Adenopathy Results/Procedures Lab Laboratory Tests 07/07/20 04:24 Patient resulted labs reviewed. FIM Transfers Therapy Code Descriptions/Definitions Functional [place] Measure: 0=Not Assessed/NA 4=Minimal Assistance 1=Total Assistance 5=Supervision or Setup 2=Maximal Assistance 6=Modified [place] 3=Moderate Assistance 7=Complete IndependenceSCALE: Activities may be completed with or without assistive devices. 0-Klbpazakzh-fbvgrpg completes the activity by him/herself with no assistance from a helper. 5-Set-up or Clean-up Assistance-helper sets up or cleans up; patient completes activity. Perdido assists only prior to or following the activity. 4-Supervision or Touching Assistance-helper provides verbal cues and/or touching/steadying and/or contact guard assistance as patient completes activity. Assistance may be provided throughout the activity or intermittently. 3-Partial/Moderate Assistance-helper does LESS THAN HALF the effort. Perdido lifts, holds or supports trunk or limbs, but provides less than half the effort. 2-Substantial/Maximal Assistance-helper does MORE THAN HALF the effort. Perdido lifts or holds trunk or limbs and provides more than half the effort. 9-Mfzqekbkt-fgpjej does ALL the effort. Patient does none of the effort to complete the activity. Or, the assistance of 2 or more helpers is required for the patient to complete the activity. If activity was not attempted, code reason: 7-Patient Refused. 9-Not Applicable-not attempted and the patient did not perform the activity before the current illness, exacerbation or injury. 10-Not Attempted due to Environmental Limitations-(lack of equipment, weather restraints, etc.). 88-Not Attempted due to Medical Conditions or Safety Concerns. Roll Left to Right (QC): 3 (use of bed rails, takes extra time; painful) Sit to Lying (QC): 3 (assist with legs into bed) Sit to Stand (QC): 4 Chair/Ncz-cm-Sisfs Xfer(QC): 4 Car Transfer (QC): 4 Gait Training Does the Patient Walk?: Yes Distance: 120'x2 Walk 10 feet (QC): 4 Walk 50 ft with 2 Turns(QC): 4 Walk 150 ft (QC): 3 Walking 10ft/uneven surface-QC: 0 (will assess at follow up visit) Gait Persons Needed: 1 Gait Assistive Device: FWW Wheelchair Training Does the Pt Use a Wheelchair?: No Wheel 50 ft with 2 turns (QC): 9 Wheel 150 ft (QC): 9 Stair Training Stair Training: Handrails/: uses walker #of Steps: 1 1 Step (curb) (QC): 4 4 Steps (QC): 0 12 Steps (QC): 88 Balance Picking up an Object (QC): 88 ADL-Treatment Eating (QC): 6 (IND) Oral Hygiene (QC): 6 (IND as pt already completed prior to ARU admission.) Shower/Bathe Self (QC): 7 (denies at this time.) Upper Body Dressing (QC): 5 (s/u) Lower Body Dressing (QC): 3 (min A. completes EOB with assist for threading. stance with good balance at walker level. Pain noted in RLE hip flexion. ) On/Off Footwear (QC): 3 (min A due to pain. 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 Anasarca hx Hirsutism Poor albumin level improved h/o Ascites s/p paracentesis just bloody serous NGTD Anemia s/p transfusions 2 units 03/17/20 Situational depression Plan: IRF protocol Continue treatment plan Appreciate Surgery management 07/07/20: Monitor white count now 13 down from 16 Watery diarrhea monitoring Butt paste as needed Pain medication as needed (1) Debility (2) Evisceration of bowel Status: Acute (3) Surgical wound dehiscence Status: Acute (4) Hypertensive emergency Status: Acute (5) Hypertension Status: Chronic (6) Hyperlipidemia Status: Chronic (7) Coronary artery disease Status: Chronic (8) Abdominal pain Status: Acute (9) Anasarca (10) Anemia (11) Hirsutism (12) Leukocytosis SESAR BEEBE DO Jul 07, 2020 06:27
--- NOTE | 2020-07-07 06:27 | Individualized Plan of Care ---
Individualized Plan of Care Rehab Nursing IPOC Order Admission Date Jul 06, 2020 at 12:33 Current Orders Orders Admission Order(Inpt,Obs,Sdc) (07/06/20 11:41) Vital Signs: Per Unit Policy ( 08,16,00 (07/06/20 11:41) Antonio Vera 09,21 (07/06/20 11:41) Sequential Compression Device Q4H (07/06/20 11:41) Property Assessment Monitor-Inpt Rehab Con (07/06/20 11:41) Rehab Nursing Orders-Ipoc (07/06/20 11:41) Physical Therapy Rehab Orders (07/06/20 11:41) Occupational Therapy Rehab Ord (07/06/20 11:41) Speech Therapy Rehab Orders (07/06/20 11:41) Cbc With Automated Diff (07/07/20 06:00) Comprehensive Metabolic Panel (07/07/20 06:00) Intake & Output 06,14,22 (07/06/20 11:41) Precautions (Aru) (07/06/20 11:41) Weekly Weight WEEK (07/06/20 11:41) Rehab-Intensity Of Therapy (07/06/20 11:41) Initiate Admission Nursing Pro .admission (07/06/20 11:41) Alprazolam Tablet (Xanax Tablet) (07/06/20 11:45) Calcium Carbonate Chew Tablet (Antacid C (07/06/20 11:45) Diphenhydramine Tablet (Benadryl Tablet) (07/06/20 11:45) Docusate Sodium Capsule (Colace Capsule) (07/06/20 21:00) Docusate Sodium Capsule (Colace Capsule) (07/06/20 11:45) Bisacodyl Suppository (Dulcolax Supposit (07/06/20 11:45) Lactulose Oral Solution (Enulose Oral So (07/06/20 11:45) Na Phos/Na Biphos Enema (Fleet Enema Fer (07/06/20 11:45) Guaifenesin/Codeine Syrup (Robitussin Ac (07/06/20 11:45) Loperamide Tablet (Imodium Tablet) (07/06/20 11:45) Melatonin Tablet (Melatonin Tablet) (07/06/20 11:45) Polyethylene Glycol Powder Pkt (Miralax (07/06/20 21:00) Ondansetron Oral Dissolve Tab (Zofran (07/06/20 11:45) Senna S Tablet (Senokot S Tablet) (07/06/20 21:00) Code/Resuscitation (07/06/20 11:41) Initiate Admission Nursing Pro .admission (07/06/20 11:41) Admission Arrival Bed Request (07/06/20 12:42) Admission Arrival Bed Request (07/06/20 12:52) Patient Visit (07/06/20 ) Speech Sound Lang Comp (07/06/20 ) Patient Visit (07/06/20 ) Pt Eval Moderate Complexity (07/06/20 ) Functional Activities, Ea 15 (07/06/20 ) Hydrocodone/Apap 5/325 Tablet (Lortab 5 (07/06/20 15:25) Morphine Injection (Morphine Injection (07/06/20 15:27) Wound V.A.C Application Ord/In UD (07/06/20 15:57) Wound V.A.C Nursing Assessment ,18 (07/06/20 15:57) Wound V.A.C Q4hr Inspection-St Q4HR (07/06/20 15:57) Wound V.A.C Nursing Assessment ,18 (07/06/20 15:57) Wound V.A.C Q4hr Inspection-St Q4HR (07/06/20 15:57) Dys2 Mechanically Altered (07/06/20 Dinner) Hydrocodone/Apap 5/325 Tablet (Lortab 5 (07/06/20 17:45) Code/Resuscitation (07/06/20 17:37) Catheter(Urinary) Discontinue (07/06/20 17:37) Incentive Spirometry (Nursing) Q2H (07/06/20 17:37) Intake & Output 06,14,22 (07/06/20 17:37) Vital Signs: Per Unit Policy ( 08,16,00 (07/06/20 17:37) Weight Bearing Status (07/06/20 17:37) Albuterol Pre-Mix Nebs (Rt) (Proventil (07/06/20 17:45) Cefepime Injection (Maxipime Injection) (07/06/20 18:00) Enoxaparin Injection (Lovenox Injection) (07/06/20 18:00) Metronidazole 500mg/100ml Ivpb (Flagyl 5 (07/06/20 22:00) Hydrocodone/Apap 5/325 Tablet (Lortab 5 (07/06/20 17:45) Ns Iv 1000 Ml (Sodium Chloride 0.9%) (07/06/20 17:45) Ondansetron Injection (Zofran Injectio (07/06/20 17:45) Metoprolol Succinate (Xl) Tab (Toprol Xl (07/07/20 09:00) Morphine Injection (Morphine Injection (07/06/20 17:45) Consult Physician (07/06/20 17:37) Incentive Spirometry Initial (07/06/20 17:37) Mat Initiate Protocol (07/06/20 17:37) Svn Small Volume Nebulizer (07/06/20 17:37) Incentive Spirometry (Nursing) Q2H (07/06/20 17:37) Metronidazole 500mg/100ml Ivpb (Flagyl 5 (07/06/20 21:49) Consult Physician (07/06/20 20:15) Manual Differential (07/07/20 04:24) Patient Visit (07/07/20 ) Exercise Therap, Ea 15 Min (07/07/20 ) Gait Training, Ea 15 Min (07/07/20 ) Rehab Nursing Orders: Ongoing Assess. of Cognitive Status, Ongoing Assess. of Function Status, Bladder Management, Bladder Scan, Bladder Training, Bowel Management, Bowel Training, Disease Management & Educaiton, DVT Prophylaxis, Fall Prevention, Fluid/Electrolyte/Nutrition Mgmt, Infection Prevention, Medication Management & Education, Management of Risks & Complications, Management of Skin Intergrity, Nutrition Management, Pain Management, Patient/Family Support, Safety Management Intensity of Therapy to be met Patient to be seen: Min.3h per day/5 of 7d PT IPOC Problem List: Activity Tolerance, Functional Strength, Safety, Balance, Gait, Transfer, Bed Mobility, ROM Treatment Plan: Continue Plan of Care Bed Mobility, Education, Functional Activity Fern, Functional Strength, Group Therapy, Gait, Safety, Therapeutic Exercise, Transfers Treatment Duration: Jul 22, 2020 Frequency: At least 5 of 7 days/Wk (IRF) Estimated Hrs Per Day: 1.5 hours per day OT IPOC Problems: Decreased Activ Tolerance, Decreased UE Strength, Impaired Funct Balance, Impaired I ADL's, Impaired Self-Care Skills OT Treatment, Training and Edu: Yes Plan of Care: ADL Retraining, Concurrent Therapy, Functional Mobility, Group Exercise/Act as Ind, UE Funct Exercise/Act Treatment Duration: Jul 20, 2020 Frequency: At least 5 of 7 days/Wk (IRF) Estimated Hrs Per Day: 1.[address] IPOC Speech Therapy Treatment Plan: Discontinue ST Treatment Duration: Jul 06, 2020 Frequency: 1 time per week Estimated Hrs Per Day: .25 hour per day Property Assessment Monitor/Case Mgmt Property Assessment Monitor/Case Managemen: Discharge Planning Dietitian/Fish Drier Dietitian/Fish Drier to monitor nutritional status and make changes and/or recommendations as needed and work with speech pathology on dietary upgrades as the occur. Physician IPOC Medical Issues being managed closely and that require the 24 hour availability of a physician: Recurrent bowel dysfunction since reversal of iliostomy and hematoma requiring emergent surgery with poor reserve and continued fragile health at risk for decompensation Medical Issues: Bowel/Bladder Function, DVT Prophylaxis, Falls Precautions, Fluid/Electrolyte/Nutrition Balance, Infection Protection, Pain Management Brief Synthesis of Preadmission Screen, Post-Admission Evaluation, and Therapy Evaluations: PT OT will help regain ADL independence in order to increase strength and independence in order to return home Medical Prognosis: Good Anticipated Length of Stay: 7 days SESAR BEEBE DO Jul 07, 2020 06:27
--- NOTE | 2020-07-07 07:41 | Progress Note - Surgery ---
FITONKECHI MED STUDENT 07/07/20 0741: Subjective Date Seen by a Provider: Jul 07, 2020 Time Seen by a Provider: 07:15 Subjective/Events-last exam Pt appeared much stronger and more comfortable today. Claims her she is slowly regaining her strength and energy and is excited to start on a normal diet. Denies abdominal pain, nausea, vomiting, fever, chills. Objective Exam Vital Signs Date Time Temp Pulse Resp B/P (MAP) Pulse Ox O2 Delivery O2 Flow Rate FiO2 07/07/20 05:43 36.8 94 16 160/80 (106) 96 Room Air 07/06/20 21:00 99 Room Air 07/06/20 19:08 99 Room Air 07/06/20 16:00 36.6 90 16 136/74 (94) 100 07/06/20 16:00 Room Air I & O 07/07/20 07:00 Intake Total 2140 ml Balance 2140 ml Capillary Refill : Less Than 3 Seconds General Appearance: No Apparent Distress, WD/WN, Chronically ill HEENT: PERRL/EOMI, Normal ENT Inspection, Pharynx Normal Neck: Full Range of Motion, Normal Inspection, Non Tender, Supple, Carotid Bruit Respiratory: Chest Non Tender, Lungs Clear, Normal Breath Sounds, No Accessory Muscle Use, No Respiratory Distress Cardiovascular: Regular Rate, Rhythm, No Gallop, No JVD, No Murmur, Normal Peripheral Pulses Extremity: Normal Capillary Refill, Normal Inspection, Normal Range of Motion, Non Tender, No Calf Tenderness, Pedal Edema Neurologic/Psychiatric: Alert, Oriented x3, No Motor/Sensory Deficits, Normal 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, 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, Motor Weakness (generalized weakness all extremities 4/5) Skin: Normal Color, Warm/Dry Lymphatic: No Adenopathy Results Lab Laboratory Tests 07/07/20 04:24: White Blood Count 13.4H, Red Blood Count 3.43L, Hemoglobin 9.4L, Hematocrit 29L, Mean Corpuscular Volume 83, Mean Corpuscular Hemoglobin 27, Mean Corpuscular Hemoglobin Concent 33, Red Cell Distribution Width 14.9H, Platelet Count 353, Mean Platelet Volume 8.9, Neutrophils (%) (Auto) 81H, Lymphocytes (%) (Auto) 6L, Monocytes (%) (Auto) 12, Eosinophils (%) (Auto) 2, Basophils (%) (Auto) 0, Neutrophils # (Auto) 10.9H, Lymphocytes # (Auto) 0.7L, Monocytes # (Auto) 1.6H, Eosinophils # (Auto) 0.2, Basophils # (Auto) 0.0, Neutrophils % (Manual) 84, Lymphocytes % (Manual) 5, Monocytes % (Manual) 9, Eosinophils % (Manual) 2, B lood Morphology Comment NORMAL, Sodium Level 134L, Potassium Level 4.1, Chloride Level 109H, Carbon Dioxide Level 17L, Anion Gap 8, Blood Urea Nitrogen 12, Creatinine 0.70, Estimat Glomerular Filtration Rate > 60, BUN/Creatinine Ratio 17, Glucose Level 93, Calcium Level 8.0L, Corrected Calcium 9.0, Total Bilirubin 0.3, Aspartate Amino Transf (AST/SGOT) 8, Alanine Aminotransferase (ALT/SGPT) 13, Alkaline Phosphatase 147H, Total Protein 6.2L, Albumin 2.7L Assessment/Plan Assessment/Plan Assessment/Plan bowel evisceration post op debility increase diet and activity monitor pt as she returns to normal activity level ARIADNE CARDONA DO 07/07/202022: Subjective Subjective/Events-last exam Sitting in chair. Feeling better. Having bowel function. Tolerating diet. Pain controlled. Denies n/v fever sweats chills shortness of breath or chest pain. Wound vac at midline. Objective Exam General Appearance: No Apparent Distress, WD/WN, Chronically ill HEENT: PERRL/EOMI, Normal ENT Inspection, Pharynx Normal Neck: Normal Inspection, Non Tender, Supple Respiratory: Chest Non Tender, No Accessory Muscle Use, No Respiratory Distress Cardiovascular: Regular Rate, Rhythm, No Edema Gastrointestinal: soft, tenderness (incisional incisions c/d/i midline with wound vac) Extremity: Normal Inspection Neurologic/Psychiatric: Alert, Oriented x3 Skin: Normal Color, Warm/Dry Lymphatic: No Adenopathy Assessment/Plan Assessment/Plan Assessment/Plan s/p ex lap closure of abdomen and laparoscopic hernia repair with Phasix mesh for bowel evisceration tolerating diet - advance pain control rehab she continues to slowly improve Supervisory-Addendum Brief Verification & Attestation Participated in pt care: history, MDM, physical Personally performed: exam, history, MDM, supervision of care Care discussed with: Medical Student Procedures: n/a Results interpretation: Verified all documentation Verification and Attestation of Medical Student E/M Service A medical student performed and documented this service in my presence. I reviewed and verified all information documented by the medical student and made modifications to such information, when appropriate. I personally performed the physical exam and medical decision making. Ariadne Cardona, Jul 07, 2020,20:22 NKECHI PAYTON MED STUDENT Jul 07, 2020 07:41 ARIADNE CARDONA DO Jul 07, 2020 20:23
--- NOTE | 2020-07-07 07:51 | NUR ---
PT WAS SITTING UP IN CHAIR EATING BREAKFAST. PT WAS IN NO RESPIRATORY DISTRESS. Addendum: 07/07/20 at 0751 by BRIANNA HDZ RT Amended: Links added.
[2020-07-07] MEDS: meTOprolol SUCCINATE 100 MG (TOPROL XL) TAB PO SCH (08:48)
[2020-07-07] MEDS: SENNA W/DOCUSATE (SENOKOT S) TABLET PO SCH ×2 (08:48→21:06)
[2020-07-07] MEDS: polyethylene glycoL POWDER 17 GM (MIRALAX) PACK PO SCH ×2 (08:48→21:06)
[2020-07-07] MEDS: DOCUSATE SODIUM 100 MG (COLACE) CAP PO SCH ×2 (08:48→21:05)
--- NOTE | 2020-07-07 09:45 | Occupational Ther Daily Note ---
OT Current Status-Daily Note Subjective Pt seated in recliner, agreeable to OT Tx with focus on ADLS. Mental Status/Objective Patient Orientation: Person, Place, Time, Situation Attachments: Drains (wound vac) ADL-Treatment Therapy Code Descriptions/Definitions Functional [place] Measure: 0=Not Assessed/NA 4=Minimal Assistance 1=Total Assistance 5=Supervision or Setup 2=Maximal Assistance 6=Modified [place] 3=Moderate Assistance 7=Complete IndependenceSCALE: Activities may be completed with or without assistive devices. 3-Hzutbdykmt-qqdnzfy completes the activity by him/herself with no assistance from a helper. 5-Set-up or Clean-up Assistance-helper sets up or cleans up; patient completes activity. [place] assists only prior to or following the activity. 4-Supervision or Touching Assistance-helper provides verbal cues and/or touching/steadying and/or contact guard assistance as patient completes activity. Assistance may be provided throughout the activity or intermittently. 3-Partial/Moderate Assistance-helper does LESS THAN HALF the effort. [place] lifts, holds or supports trunk or limbs, but provides less than half the effort. 2-Substantial/Maximal Assistance-helper does MORE THAN HALF the effort. [place] lifts or holds trunk or limbs and provides more than half the effort. 8-Apflydfxm-wjlcha does ALL the effort. Patient does none of the effort to complete the activity. Or, the assistance of 2 or more helpers is required for the patient to complete the activity. If activity was not attempted, code reason: 7-Patient Refused. 9-Not Applicable-not attempted and the patient did not perform the activity before the current illness, exacerbation or injury. 10-Not Attempted due to Environmental Limitations-(lack of equipment, weather restraints, etc.). 88-Not Attempted due to Medical Conditions or Safety Concerns. Oral Hygiene (QC): 5 (set up, pt completed task seated at sink) Shower/Bathe Self (QC): 4 (Pt completed sponge bath seated at sink, SBA in stance.) Upper Body Dressing (QC): 5 (set up ) Lower Body Dressing (QC): 4 (SBA in stance for pant hike.) Toileting Hygiene (QC): 4 (SBA) Toilet Transfer (QC): 4 (SBA) Other Treatment Pt seated in recliner, sit to supine CGA. Pt used FWW to ambulate to the restroom, transferring to the toilet, OT managed wound vac. Pt completed toileting, then transferred to BSC at sink. Pt completed sponge bath, brushed her hair, and oral care seated at sink. Post OT tx, pt seated on BSC at sink, PT present for tx, all needs met. Education OT Patient Education: Correct positioning, Energy conservation, Modified ADL techniques, Progress toward Goal/Update tx plan, Purpose of tx/functional activities, Transfer techniques Teaching Recipient: Patient Teaching Methods: Discussion Response to Teaching: Verbalize Understanding OT Gambreler Helper Goals Gambreler Helper Goals Time Frame: Jul 20, 2020 Eating (QC): 6 Oral Hygiene (QC): 6 Toileting Hygiene (QC): 6 Shower/Bathe Self (QC): 6 Upper Body Dressing (QC): 6 Lower Body Dressing (QC): 6 On/Off Footwear (QC): 6 Additional Goals: 1-Demonstrate ADL Tasks, 2-Verbalize Understanding, 3- ImproveStrength/Fern 1=Demonstrate adherence to instructed precautions during ADL tasks. 2=Patient will verbalize/demonstrate understanding of assistive devices/modifica tions for ADL. 3=Patient will improve strength/tolerance for activity to enable patient to perform ADL's. OT Education/Plan Problem List/Assessment Assessment: Decreased Activ Tolerance, Decreased UE Strength, Impaired I ADL's, Impaired Self-Care Skills Discharge Recommendations Plan/Recommendations: Continue POC Treatment Plan/Plan of Care Patient would benefit from OT for education, treatment and training to promote independence in ADL's, mobility, safety and/or upper extremity function for ADL's. Plan of Care: ADL Retraining, Concurrent Therapy, Functional Mobility, Group Exercise/Act as Ind, UE Funct Exercise/Act Treatment Duration: Jul 20, 2020 Frequency: At least 5 of 7 days/Wk (IRF) Estimated Hrs Per Day: 1.5 hours per day Agreement: Yes Rehab Potential: Good Time/GCodes Start Time: 09:00 Stop Time: 09:45 Total Time Billed (hr/min): 45 Billed Treatment Time 1, ADL 3 SHAVON BARTLETT OT Jul 07, 2020 09:45
--- NOTE | 2020-07-07 10:39 | Physical Therapy Daily Note ---
PT Daily Note-Current Subjective Patient in bathroom pre tx, just got done with OT, has 4/10 pain in abdomen Appearance Patient sitting in common area of rehab, patient will contact nurse when she needs to get back to her room. Mental Status Patient Orientation: Normal For Age wound vac Transfers SCALE: Activities may be completed with or without assistive devices. 7-Rebifcgrar-dbfinuu completes the activity by him/herself with no assistance from a helper. 5-Set-up or Clean-up Assistance-helper sets up or cleans up; patient completes activity. [place] assists only prior to or following the activity. 4-Supervision or Touching Assistance-helper provides verbal cues and/or touching/steadying and/or contact guard assistance as patient completes activity. Assistance may be provided throughout the activity or intermittently. 3-Partial/Moderate Assistance-helper does LESS THAN HALF the effort. [place] lifts, holds or supports trunk or limbs, but provides less than half the effort. 2-Substantial/Maximal Assistance-helper does MORE THAN HALF the effort. [place] lifts or holds trunk or limbs and provides more than half the effort. 9-Ngiuepaxv-wmbuyh does ALL the effort. Patient does none of the effort to complete the activity. Or, the assistance of 2 or more helpers is required for the patient to complete the activity. If activity was not attempted, code reason: 7-Patient Refused. 9-Not Applicable-not attempted and the patient did not perform the activity before the current illness, exacerbation or injury. 10-Not Attempted due to Environmental Limitations-(lack of equipment, weather restraints, etc.). 88-Not Attempted due to Medical Conditions or Safety Concerns. Sit to Stand (QC): 4 Chair/Xnz-lz-Yezix Xfer(QC): 4 SBA Weight Bearing Right Lower Extremity: Right Weight Bearing/Tolerated Left Lower Extremity: Left Weight Bearing/Tolerated Gait Training Distance: 400'x2 Walk 10 feet (QC): 4 Walk 50 ft with 2 Turns(QC): 4 Walk 150 ft (QC): 4 Gait Persons Needed: 1 Gait Assistive Device: FWW SBA, slow but steady ambulation Exercises Standing: Hip Abduction, Heel/toe raises, Marching, Mini squats, Step-ups Standing Reps: 15 NuStep Minutes: 15 NuStep Workload: 4 Treatments transfers, ambulation, functional strengthening Assessment Current Status: Fair Progress improving endurance PT Short Term Goals Short Term Goals Time Frame: Jul 11, 2020 Sit to lyin Lying to sitting on side of be: 4 Sit to stand: 5 Walk 150 feet: 4 4 steps: 4 PT Skilled Nursing Goals Credit Processor Goals PT Credit Processor Goals Time Frame: Jul 22, 2020 Roll Left & Right (QC): 6 Sit to Lying (QC): 6 Lying-Sitting on Side/Bed(QC): 6 Sit to Stand (QC): 6 Chair/Cms-ps-[place] Xfer(QC): 6 Toilet Transfer (QC): 6 Car Transfer (QC): 6 Does the Patient Walk: Yes Walk 10 feet (QC): 6 Walk 50ft with 2 Turns (QC): 6 Walk 150 ft (QC): 6 Walking 10ft on Uneven Surface: 6 1 Step (curb) (QC): 6 4 Steps (QC): 6 12 Steps (QC): 4 Picking up an Object (QC): 4 Wheel 50 feet with 2 turns (QC: 9 Wheel 150 feet: 9 PT Plan Problem List Problem List: Activity Tolerance, Functional Strength, Safety, Balance, Gait, Transfer, Bed Mobility, ROM Treatment/Plan Treatment Plan: Continue Plan of Care Treatment Plan: Bed Mobility, Education, Functional Activity Fern, Functional Strength, Group Therapy, Gait, Safety, Therapeutic Exercise, Transfers Treatment Duration: Jul 22, 2020 Frequency: At least 5 of 7 days/Wk (IRF) Estimated Hrs Per Day: 1.5 hours per day Patient and/or Family Agrees t: Yes Safety Risks/Education Patient Education: Gait Training, Transfer Techniques, Correct Positioning, Safety Issues Teaching Recipient: Patient Teaching Methods: Demonstration, Discussion Response to Teaching: Reinforcement Needed Time/GCodes Time In: 0945 Time Out: 1045 Total Billed Treatment Time: 60 Total Billed Treatment 1 visit GT 30' EX 30' KEI CRUZ PT Jul 07, 2020 10:39
--- NOTE | 2020-07-07 13:30 | NUR ---
Pastoral care visit.
--- NOTE | 2020-07-07 13:45 | NUR ---
"RD ASSESSMENT PMHx: hypercholesterolemia; HTN; IN; recent ileostomy reversal PT INTERACTION: Pt was awake and pleasant during nutrition assessment. Pt states current appetite is good. Note avg PO intake >75% x2meal, per chart review. Pt states following a regular diet at home, and has no issues with chewing/swallowing food. Pt states no recent issues with nausea, vomiting, or constipation. Pt states recent issues with diarrhea. Note last BM was 07/07, and pt currently on bowel regimen of colace BID; senna BID; and miralax BID, per chart review. ABNORMAL NUTRITION-RELATED LAB VALUES LOW: Na 134; Ca 8.0; Pro 6.2; alb 2.7 HIGH: Cl 109; alkphos 147 Est. kcal needs: 1500 kcal | 20 kcal/kg Est. Pro needs: 90 g Pro | 1.2 g Pro/kg PES STATEMENT: Given current PO intake and appetite, no nutrition diagnosis at this time (NO-1.1) INTERVENTION: Note pt currently on DYS2 Mechanically Altered diet. Note pt has no issues with chewing/swallowing food, and does not have a medical need for current diet order. Would recommend advancing diet to Regular diet. Will continue to follow and reassess as pt needs, intake, and status change. MONITOR/EVALUATE: PO Intake; Plan of Care; Hydration Status; Weight Status; Lab Values Camron Rogers, , RD, LD"
--- NOTE | 2020-07-07 14:26 | Physical Therapy Daily Note ---
PT Daily Note-Current Subjective Patient in recliner pre tx, agrees to PT, has 7/10 pain in abdomen. Appearance Patient in recliner post tx with nurse call, phone, tray, all needs met. Mental Status Patient Orientation: Normal For Age Attachments: IV wound vac Transfers SCALE: Activities may be completed with or without assistive devices. 4-Oshtxypeap-htlwfxx completes the activity by him/herself with no assistance from a helper. 5-Set-up or Clean-up Assistance-helper sets up or cleans up; patient completes activity. [place] assists only prior to or following the activity. 4-Supervision or Touching Assistance-helper provides verbal cues and/or touching/steadying and/or contact guard assistance as patient completes activity. Assistance may be provided throughout the activity or intermittently. 3-Partial/Moderate Assistance-helper does LESS THAN HALF the effort. [place] lifts, holds or supports trunk or limbs, but provides less than half the effort. 2-Substantial/Maximal Assistance-helper does MORE THAN HALF the effort. [place] lifts or holds trunk or limbs and provides more than half the effort. 0-Xlztbaerx-iuhxgc does ALL the effort. Patient does none of the effort to complete the activity. Or, the assistance of 2 or more helpers is required for the patient to complete the activity. If activity was not attempted, code reason: 7-Patient Refused. 9-Not Applicable-not attempted and the patient did not perform the activity before the current illness, exacerbation or injury. 10-Not Attempted due to Environmental Limitations-(lack of equipment, weather restraints, etc.). 88-Not Attempted due to Medical Conditions or Safety Concerns. Sit to Stand (QC): 5 Chair/Spf-xk-Phuhh Xfer(QC): 5 Weight Bearing Right Lower Extremity: Right Weight Bearing/Tolerated Left Lower Extremity: Left Weight Bearing/Tolerated Gait Training Distance: 400'x2 Walk 10 feet (QC): 5 Walk 50 ft with 2 Turns(QC): 5 Walk 150 ft (QC): 5 Gait Assistive Device: FWW slow but steady ambulation Treatments transfers, ambulation Assessment Current Status: Fair Progress improving endurance, rest break between bouts of ambulation, patient would probably be independent with ambulation if she didn't have an IV pole and wound vac PT Short Term Goals Short Term Goals Time Frame: Jul 11, 2020 Sit to lyin Lying to sitting on side of be: 4 Sit to stand: 5 Walk 150 feet: 4 4 steps: 4 PT Fpc Goals Sheet Metal Helper Goals PT Fpc Goals Time Frame: Jul 22, 2020 Roll Left & Right (QC): 6 Sit to Lying (QC): 6 Lying-Sitting on Side/Bed(QC): 6 Sit to Stand (QC): 6 Chair/Pda-yj-Khnan Xfer(QC): 6 Toilet Transfer (QC): 6 Car Transfer (QC): 6 Does the Patient Walk: Yes Walk 10 feet (QC): 6 Walk 50ft with 2 Turns (QC): 6 Walk 150 ft (QC): 6 Walking 10ft on Uneven Surface: 6 1 Step (curb) (QC): 6 4 Steps (QC): 6 12 Steps (QC): 4 Picking up an Object (QC): 4 Wheel 50 feet with 2 turns (QC: 9 Wheel 150 feet: 9 PT Plan Problem List Problem List: Activity Tolerance, Functional Strength, Safety, Balance, Gait, Transfer, Bed Mobility, ROM Treatment/Plan Treatment Plan: Continue Plan of Care Treatment Plan: Bed Mobility, Education, Functional Activity Fern, Functional Strength, Group Therapy, Gait, Safety, Therapeutic Exercise, Transfers Treatment Duration: Jul 22, 2020 Frequency: At least 5 of 7 days/Wk (IRF) Estimated Hrs Per Day: 1.5 hours per day Patient and/or Family Agrees t: Yes Safety Risks/Education Patient Education: Gait Training, Transfer Techniques, Correct Positioning, Safety Issues Teaching Recipient: Patient Teaching Methods: Demonstration, Discussion Response to Teaching: Reinforcement Needed Time/GCodes Time In: 1400 Time Out: 1430 Total Billed Treatment Time: 30 Total Billed Treatment 1 visit GT 30' KEI CRUZ PT Jul 07, 2020 14:26
--- NOTE | 2020-07-07 15:23 | Occupational Ther Daily Note ---
OT Current Status-Daily Note Subjective Pt seated on toilet with call light on. OT entered room and assisted pt with toileting. Mental Status/Objective Patient Orientation: Person, Place, Time, Situation Attachments: Drains (wound vac), IV ADL-Treatment Therapy Code Descriptions/Definitions Functional [place] Measure: 0=Not Assessed/NA 4=Minimal Assistance 1=Total Assistance 5=Supervision or Setup 2=Maximal Assistance 6=Modified [place] 3=Moderate Assistance 7=Complete IndependenceSCALE: Activities may be completed with or without assistive devices. 4-Disgrnmssa-pvtatne completes the activity by him/herself with no assistance from a helper. 5-Set-up or Clean-up Assistance-helper sets up or cleans up; patient completes activity. [place] assists only prior to or following the activity. 4-Supervision or Touching Assistance-helper provides verbal cues and/or touching/steadying and/or contact guard assistance as patient completes activity. Assistance may be provided throughout the activity or intermittently. 3-Partial/Moderate Assistance-helper does LESS THAN HALF the effort. [place] lifts, holds or supports trunk or limbs, but provides less than half the effort. 2-Substantial/Maximal Assistance-helper does MORE THAN HALF the effort. [place] lifts or holds trunk or limbs and provides more than half the effort. 5-Qsnpakmmd-[place]ron does ALL the effort. Patient does none of the effort to complete the activity. Or, the assistance of 2 or more helpers is required for the patient to complete the activity. If activity was not attempted, code reason: 7-Patient Refused. 9-Not Applicable-not attempted and the patient did not perform the activity before the current illness, exacerbation or injury. 10-Not Attempted due to Environmental Limitations-(lack of equipment, weather restraints, etc.). 88-Not Attempted due to Medical Conditions or Safety Concerns. Other Treatment Pt seated on toilet, completed toileting. OT provided SBA as pt completed sit to stand, then ambulated to sink with FWW. Pt requested to wash her face and shave, OT provided pt with BSC to sit on at the sink. Pt then able to independently wash her hands, wash her face,and shave. Pt then returned to the recliner using FWW with SBA as OT managed IV/wound vac. Once in recliner, OT provided pt with medium resistance therapy sponge, instructing pt to complete latin dancer squeezes and pinches, 2-3 times a day, 15 reps each, BUEs in order to increase BUE fine motor strength and coordination. Pt demo'd and verbalized understanding. Post OT tx, pt seated in recliner, call light in reach and all needs met. Education OT Patient Education: Correct positioning, Energy conservation, Exercise program, Modified ADL techniques, Progress toward Goal/Update tx plan, Purpose of tx/functional activities, Safety issues, Transfer techniques Teaching Recipient: Patient Teaching Methods: Discussion Response to Teaching: Verbalize Understanding OT Credit Support Specialist Goals Skilled Nursing Goals Time Frame: Jul 20, 2020 Eating (QC): 6 Oral Hygiene (QC): 6 Toileting Hygiene (QC): 6 Shower/Bathe Self (QC): 6 Upper Body Dressing (QC): 6 Lower Body Dressing (QC): 6 On/Off Footwear (QC): 6 Additional Goals: 1-Demonstrate ADL Tasks, 2-Verbalize Understanding, 3- ImproveStrength/Fern 1=Demonstrate adherence to instructed precautions during ADL tasks. 2=Patient will verbalize/demonstrate understanding of assistive devices/modifications for ADL. 3=Patient will improve strength/tolerance for activity to enable patient to perform ADL's. OT Education/Plan Problem List/Assessment Assessment: Decreased Activ Tolerance, Decreased UE Strength, Impaired I ADL's, Impaired Self-Care Skills Discharge Recommendations Plan/Recommendations: Continue POC Treatment Plan/Plan of Care Patient would benefit from OT for education, treatment and training to promote i ndependence in ADL's, mobility, safety and/or upper extremity function for ADL's. Plan of Care: ADL Retraining, Concurrent Therapy, Functional Mobility, Group Exercise/Act as Ind, UE Funct Exercise/Act Treatment Duration: Jul 20, 2020 Frequency: At least 5 of 7 days/Wk (IRF) Estimated Hrs Per Day: 1.5 hours per day Agreement: Yes Rehab Potential: Good Time/GCodes Start Time: 14:30 Stop Time: 15:15 Total Time Billed (hr/min): 45 Billed Treatment Time 1, ADL 3 SHAVON BARTLETT OT Jul 07, 2020 15:23
[2020-07-07 17:00] VITALS: BP 158/82
[2020-07-07] MEDS: ENOXAPARIN 40 MG/0.4 ML (LOVENOX) SYR SC SCH (19:06)
--- NOTE | 2020-07-08 05:51 | PM&R Progress Note ---
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 of Systems General: Fatigue, Malaise Neurological: Weakness Objective Exam Vital Signs Vital Signs Date Time Temp Pulse Resp B/P (MAP) Pulse Ox O2 Delivery O2 Flow Rate FiO2 07/08/20 17:56 36.5 90 16 156/94 (114) 94 Room Air Capillary Refill : Less Than 3 Seconds General Appearance: No Apparent Distress, WD/WN, Chronically ill HEENT: PERRL/EOMI, Normal ENT Inspection, Pharynx Normal Neck: Full Range of Motion, Normal Inspection, Non Tender, Supple, Carotid Bruit Respiratory: Chest Non Tender, Lungs Clear, Normal Breath Sounds, No Accessory Muscle Use, No Respiratory Distress Cardiovascular: Regular Rate, Rhythm, No Gallop, No JVD, No Murmur, Normal Peripheral Pulses Gastrointestinal: Normal Bowel Sounds, No Organomegaly, No Pulsatile Mass, Soft, Tenderness, Other (wound vac in place) Back: Normal Inspection, No CVA Tenderness, No Vertebral Tenderness Extremity: Normal Capillary Refill, Normal Inspection, Normal Range of Motion, Non Tender, No Calf Tenderness, Pedal Edema Neurologic/Psychiatric: Alert, Oriented x3, No Motor/Sensory Deficits, Normal Mood/Affect, payroll representative II-XII Norm as Tested, Motor Weakness (generalized weakness all extremities 4/5) Skin: Normal Color, Warm/Dry Lymphatic: No Adenopathy Results/Procedures Lab Patient resulted labs reviewed. FIM Transfers Therapy Code Descriptions/Definitions Functional [place] Measure: 0=Not Assessed/NA 4=Minimal Assistance 1=Total Assistance 5=Supervision or Setup 2=Maximal Assistance 6=Modified [place] 3=Moderate Assistance 7=Complete IndependenceSCALE: Activities may be completed with or without assistive devices. 1-Dupwkhccct-vbqbdoy completes the activity by him/herself with no assistance from a helper. 5-Set-up or Clean-up Assistance-helper sets up or cleans up; patient completes activity. [place] assists only prior to or following the activity. 4-Supervision or Touching Assistance-helper provides verbal cues and/or touching/steadying and/or contact guard assistance as patient completes activity. Assistance may be provided throughout the activity or intermittently. 3-Partial/Moderate Assistance-helper does LESS THAN HALF the effort. [place] lift s, holds or supports trunk or limbs, but provides less than half the effort. 2-Substantial/Maximal Assistance-helper does MORE THAN HALF the effort. [place] lifts or holds trunk or limbs and provides more than half the effort. 9-Kngfnqled-uayjix does ALL the effort. Patient does none of the effort to complete the activity. Or, the assistance of 2 or more helpers is required for the patient to complete the activity. If activity was not attempted, code reason: 7-Patient Refused. 9-Not Applicable-not attempted and the patient did not perform the activity before the current illness, exacerbation or injury. 10-Not Attempted due to Environmental Limitations-(lack of equipment, weather restraints, etc.). 88-Not Attempted due to Medical Conditions or Safety Concerns. Roll Left to Right (QC): 3 (use of bed rails, takes extra time; painful) Sit to Lying (QC): 3 (assist with legs into bed) Sit to Stand (QC): 5 Chair/Nxo-un-Dtyfa Xfer(QC): 5 Car Transfer (QC): 4 Gait Training Does the Patient Walk?: Yes Distance: 400'x2 Walk 10 feet (QC): 5 Walk 50 ft with 2 Turns(QC): 5 Walk 150 ft (QC): 5 Walking 10ft/uneven surface-QC: 0 (will assess at follow up visit) Gait Persons Needed: 1 Gait Assistive Device: FWW Wheelchair Training Does the Pt Use a Wheelchair?: No Wheel 50 ft with 2 turns (QC): 9 Wheel 150 ft (QC): 9 Stair Training Stair Training: Handrails/: uses walker #of Steps: 1 1 Step (curb) (QC): 4 4 Steps (QC): 0 12 Steps (QC): 88 Balance Picking up an Object (QC): 88 ADL-Treatment Eating (QC): 6 (IND) Oral Hygiene (QC): 5 (set up, pt completed task seated at sink) Shower/Bathe Self (QC): 4 (Pt completed sponge bath seated at sink, SBA in stance.) Upper Body Dressing (QC): 5 (set up ) Lower Body Dressing (QC): 4 (SBA in stance for pant hike.) On/Off Footwear (QC): 3 (min A due to pain. 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 Anasarca hx Hirsutism Poor albumin level improved h/o Ascites s/p paracentesis just bloody serous NGTD Anemia s/p transfusions 2 units 03/17/20 Situational depression Plan: IRF protocol Continue treatment plan Appreciate Surgery management 07/07/20: Monitor white count now 13 down from 16 Watery diarrhea monitoring Butt paste as needed Pain medication as needed 07/08/20: Continue changing wound vac Pain medication before wound vac change Continue strengthening from physical therapy Encourage good nutrition (1) Debility (2) Evisceration of bowel Status: Acute (3) Surgical wound dehiscence Status: Acute (4) Hypertensive emergency Status: Acute (5) Hypertension Status: Chronic (6) Hyperlipidemia Status: Chronic (7) Coronary artery disease Status: Chronic (8) Abdominal pain Status: Acute (9) Anasarca (10) Anemia (11) Hirsutism (12) Leukocytosis SESAR BEEBE DO Jul 08, 2020 05:50
[2020-07-08 06:00] VITALS: BP 162/88
[2020-07-08] MEDS: HYDROcodone/APAP 5 MG/325 MG (LORTAB) TAB PO PRN ×4 (06:10→23:33)
[2020-07-08] MEDS: metroNIDAZOLE 500MG/100ML IVPB 100 ML IV SCH ×3 (06:35→23:13)
[2020-07-08] MEDS: CEFEPIME INJECTION 1,000 MG in WATER (STERILE) FOR INJECTION 10 ML IV SCH ×4 (06:36→23:12)
--- NOTE | 2020-07-08 07:45 | NUR ---
DR VALENTIN NOTIFIED FOR REQUEST OF PREMEDICATION PAIN ORDER PRIOR TO WOUND VAC CHANGE. CONT TO MONITOR.
[2020-07-08 09:06] VITALS: BP 141/83
[2020-07-08] MEDS: meTOprolol SUCCINATE 100 MG (TOPROL XL) TAB PO SCH (09:06)
[2020-07-08] MEDS: SENNA W/DOCUSATE (SENOKOT S) TABLET PO SCH ×2 (09:10→20:08)
[2020-07-08] MEDS: DOCUSATE SODIUM 100 MG (COLACE) CAP PO SCH ×2 (09:10→20:07)
[2020-07-08] MEDS: polyethylene glycoL POWDER 17 GM (MIRALAX) PACK PO SCH ×2 (09:10→20:08)
[2020-07-08] MEDS: NS IV 1000 ML 1,000 ML IV SCH ×2 (09:10→12:22)
[2020-07-08] MEDS ORDERED: morphine INJ 10 MG/ML 1ML (SYR OR VIAL) IVP ONE (09:35)
--- NOTE | 2020-07-08 09:44 | NUR ---
REQUEST FOR BARBIE TO ADVANCE ORDER. AWAITING RESPONSE. DR BEEBE NOTIFIED OF PENDING WOUND VAC PROCEDURE WITH NO PAIN PRE MEDICATION ORDER. ONE TIME ORDER FOR PAIN MANAGEMENT. STILL AWAITING RESPONSE FROM DR VALENTIN FOR FUTURE PAIN MANAGEMENT ORDER. PATIENT DENEIS NEEDS OR C/O AT THIS TIME. CONT TO MONITOR. WILL PREMEDICATE WITH ORDERED PAIN MED. Addendum: 07/08/20 at 1135 by PARTH NG RN CLARIFICATION:TO ADVANCE DIET ORDERS
[2020-07-08] MEDS: morphine INJ 4 MG/ML 1 ML (VIAL/SYRINGE) IVP PRN (09:58)
--- NOTE | 2020-07-08 10:00 | NUR ---
Wound vac changed at bedside.
--- NOTE | 2020-07-08 10:10 | NUR ---
DR BEEBE HERE AND ORDERED PATIENT TO HAVE HYDROCODONE PO DOSE ADMINISTERED AT THIS TIME. ADMINISTERED PER ORDER. PATIENT WOUND VAC BEING CHANGED AT THIS TIME.
--- NOTE | 2020-07-08 10:14 | Occupational Ther Daily Note ---
OT Current Status-Daily Note Subjective Pt seated in recliner, agreeable to OT Tx. Pt did not verbalize pain rating during tx. Mental Status/Objective Patient Orientation: Person, Normal For Age Attachments: Drains (wound vac), IV ADL-Treatment Therapy Code Descriptions/Definitions Functional [place] Measure: 0=Not Assessed/NA 4=Minimal Assistance 1=Total Assistance 5=Supervision or Setup 2=Maximal Assistance 6=Modified [place] 3=Moderate Assistance 7=Complete IndependenceSCALE: Activities may be completed with or without assistive devices. 9-Gdzuavylld-mvpkcam completes the activity by him/herself with no assistance from a helper. 5-Set-up or Clean-up Assistance-helper sets up or cleans up; patient completes activity. [place] assists only prior to or following the activity. 4-Supervision or Touching Assistance-helper provides verbal cues and/or touching/steadying and/or contact guard assistance as patient completes activi ty. Assistance may be provided throughout the activity or intermittently. 3-Partial/Moderate Assistance-helper does LESS THAN HALF the effort. [place] lifts, holds or supports trunk or limbs, but provides less than half the effort. 2-Substantial/Maximal Assistance-helper does MORE THAN HALF the effort. [place] lifts or holds trunk or limbs and provides more than half the effort. 4-Xauvjexvt-csdwzs does ALL the effort. Patient does none of the effort to complete the activity. Or, the assistance of 2 or more helpers is required for the patient to complete the activity. If activity was not attempted, code reason: 7-Patient Refused. 9-Not Applicable-not attempted and the patient did not perform the activity before the current illness, exacerbation or injury. 10-Not Attempted due to Environmental Limitations-(lack of equipment, weather restraints, etc.). 88-Not Attempted due to Medical Conditions or Safety Concerns. Oral Hygiene (QC): 6 (IND seated at sink) Toileting Hygiene (QC): 4 (SBA, pt able to complete clothing management and hygiene) Toilet Transfer (QC): 4 (SBA on/off toilet, OT managed IV/wound vac lines) Other Treatment Pt seated in recliner, used FWW and SBA to the restroom as OT managed IV and wound vac lines. Pt completed toileting, then sat at the sink in order to complete face washing, teeth brushing, hair brushing, and shaving independently. Pt required increased time with all ADLs. After pt completed grooming, she used FWW and SBA to go from the bathroom to sitting EOB, OT managed IV pole/lines. Pt able to transfer sit to supine with SBA. Post OT tx, pt laying in bed, nurse present, call light in reach and all needs met. Education OT Patient Education: Correct positioning, Energy conservation, Modified ADL techniques, Progress toward Goal/Update tx plan, Purpose of tx/functional activities, Safety issues, Transfer techniques Teaching Recipient: Patient Teaching Methods: Discussion Response to Teaching: Verbalize Understanding OT Lining Machine Tender Goals Lining Machine Tender Goals Time Frame: Jul 20, 2020 Eating (QC): 6 Oral Hygiene (QC): 6 Toileting Hygiene (QC): 6 Shower/Bathe Self (QC): 6 Upper Body Dressing (QC): 6 Lower Body Dressing (QC): 6 On/Off Footwear (QC): 6 Additional Goals: 1-Demonstrate ADL Tasks, 2-Verbalize Understanding, 3- ImproveStrength/Fern 1=Demonstrate adherence to instructed precautions during ADL tasks. 2=Patient will verbalize/demonstrate understanding of assistive devices/modifications for ADL. 3=Patient will improve strength/tolerance for activity to enable patient to perform ADL's. OT Education/Plan Problem List/Assessment Assessment: Decreased Activ Tolerance, Decreased UE Strength, Impaired I ADL's, Impaired Self-Care Skills Discharge Recommendations Plan/Recommendations: Continue POC Treatment Plan/Plan of Care Patient would benefit from OT for education, treatment and training to promote independence in ADL's, mobility, safety and/or upper extremity function for ADL's. Plan of Care: ADL Retraining, Concurrent Therapy, Functional Mobility, Group Exercise/Act as Ind, UE Funct Exercise/Act Treatment Duration: Jul 20, 2020 Frequency: At least 5 of 7 days/Wk (IRF) Estimated Hrs Per Day: 1.5 hours per day Agreement: Yes Rehab Potential: Good Time/GCodes Start Time: 09:00 Stop Time: 10:00 Total Time Billed (hr/min): 60 Billed Treatment Time 1, ADL 4 SHAVON BARTLETT OT Jul 08, 2020 10:14
--- NOTE | 2020-07-08 10:17 | NUR ---
PATIENT IS CRYING AND IN WRITHING PAIN APPEARANCE AND C/O 09/05 WITH WOUND VAC CHANGE. ADDITIONAL 2 MG MSO4 GIVEN SIVP AT THIS TIME. CONTINUE AT BEDSIDE PROVIDING PATIENT PRESENCE AND SUPPORT.
[2020-07-08] MEDS ORDERED: morphine INJ 4 MG/ML 1 ML (VIAL/SYRINGE) IVP ONE (11:15)
[2020-07-08] MEDS ORDERED: morphine INJ 4 MG/ML 1 ML (VIAL/SYRINGE) IVP PRN (11:30)
--- NOTE | 2020-07-08 12:00 | Physical Therapy Daily Note ---
PT Daily Note-Current Subjective Pt. in bed, states pain in 3/10 in abdomen, agrees to Rx. Wants a cheeseburger. Pain Numeric Pain Scale: 3 Location: Lower Location Body Site: Abdomen Pain Description: Ache Mental Status Patient Orientation: Normal For Age Attachments: Other-See Comments ([place]), IV Transfers SCALE: Activities may be completed with or without assistive devices. 4-Asrbestkep-qchubyc completes the activity by him/herself with no assistance from a helper. 5-Set-up or Clean-up Assistance-helper sets up or cleans up; patient completes activity. [place] assists only prior to or following the activity. 4-Supervision or Touching Assistance-helper provides verbal cues and/or touching/steadying and/or contact guard assistance as patient completes activity. Assistance may be provided throughout the activity or intermittently. 3-Partial/Moderate Assistance-helper does LESS THAN HALF the effort. [place] lifts, holds or supports trunk or limbs, but provides less than half the effort. 2-Substantial/Maximal Assistance-helper does MORE THAN HALF the effort. [place] lifts or holds trunk or limbs and provides more than half the effort. 9-Kfnpbeqgx-ssxvgq does ALL the effort. Patient does none of the effort to complete the activity. Or, the assistance of 2 or more helpers is required for the patient to complete the activity. If activity was not attempted, code reason: 7-Patient Refused. 9-Not Applicable-not attempted and the patient did not perform the activity before the current illness, exacerbation or injury. 10-Not Attempted due to Environmental Limitations-(lack of equipment, weather restraints, etc.). 88-Not Attempted due to Medical Conditions or Safety Concerns. Roll Left & Right (QC): 6 Sit to Lying (QC): 6 Lying to Sitting/Side of Bed(Q: 6 Sit to Stand (QC): 6 Chair/Kib-px-Bdjsu Xfer(QC): 6 Weight Bearing Right Lower Extremity: Right Weight Bearing/Tolerated Left Lower Extremity: Left Weight Bearing/Tolerated Gait Training Does the Patient Walk?: Yes Walk 10 feet (QC): 5 Walk 50 ft with 2 Turns(QC): 5 Walk 150 ft (QC): 5 Gait Persons Needed: 1 Gait Assistive Device: FWW no LOB, slow, flexed over FWW, assist for IV and [place] Exercises Supine Ex: Bridging, Ankle pumps, Quad Set, Rolling, Glut sets, Lower trunk rotation, Heel Slides, Short Arc Quads, Scooting (scoots self up i bed indep), Straight leg raise (10 bilat), Hip abd/add Supine Reps: 20 NuStep Minutes: 9 NuStep Workload: 3 Assessment Current Status: Good Progress PT Short Term Goals Short Term Goals Time Frame: Jul 11, 2020 Sit to lyin Lying to sitting on side of be: 4 Sit to stand: 5 Walk 150 feet: 4 4 steps: 4 PT German Teacher Goals Shelter Goals PT German Teacher Goals Time Frame: Jul 22, 2020 Roll Left & Right (QC): 6 Sit to Lying (QC): 6 Lying-Sitting on Side/Bed(QC): 6 Sit to Stand (QC): 6 Chair/Bjp-ix-Zckao Xfer(QC): 6 Toilet Transfer (QC): 6 Car Transfer (QC): 6 Does the Patient Walk: Yes Walk 10 feet (QC): 6 Walk 50ft with 2 Turns (QC): 6 Walk 150 ft (QC): 6 Walking 10ft on Uneven Surface: 6 1 Step (curb) (QC): 6 4 Steps (QC): 6 12 Steps (QC): 4 Picking up an Object (QC): 4 Wheel 50 feet with 2 turns (QC: 9 Wheel 150 feet: 9 PT Plan Treatment/Plan Treatment Plan: Continue Plan of Care Treatment Plan: Bed Mobility, Education, Functional Activity Fern, Functional Strength, Group Therapy, Gait, Safety, Therapeutic Exercise, Transfers Treatment Duration: Jul 22, 2020 Frequency: At least 5 of 7 days/Wk (IRF) Estimated Hrs Per Day: 1.5 hours per day Patient and/or Family Agrees t: Yes Safety Risks/Education Patient Education: Gait Training, Transfer Techniques, Correct Positioning, Disease Process, Safety Issues Teaching Recipient: Patient Teaching Methods: Demonstration, Discussion Response to Teaching: Verbalize Understanding, Return Demonstration, Reinforcement Needed Time/GCodes Time In: 1100 Time Out: 1200 Total Billed Treatment Time: 60 Total Billed Treatment 1,EX25,FA15,GT20m AN CHUN BISCUIT PACKER Jul 08, 2020 12:00
--- NOTE | 2020-07-08 13:57 | Occupational Ther Daily Note ---
OT Current Status-Daily Note Subjective Pt seated in recliner at start of session, agreeable to OT tx at this time. Mental Status/Objective Patient Orientation: Person, Normal For Age Attachments: Drains (wound vac), IV ADL-Treatment Therapy Code Descriptions/Definitions Functional [place] Measure: 0=Not Assessed/NA 4=Minimal Assistance 1=Total Assistance 5=Supervision or Setup 2=Maximal Assistance 6=Modified [place] 3=Moderate Assistance 7=Complete IndependenceSCALE: Activities may be completed with or without assistive devices. 9-Fliuqqqzfd-vppihfz completes the activity by him/herself with no assistance from a helper. 5-Set-up or Clean-up Assistance-helper sets up or cleans up; patient completes activity. [place] assists only prior to or following the activity. 4-Supervision or Touching Assistance-helper provides verbal cues and/or touching/steadying and/or contact guard assistance as patient completes activity. Assistance may be provided throughout the activity or intermittently. 3-Partial/Moderate Assistance-helper does LESS THAN HALF the effort. [place] lifts, holds or supports trunk or limbs, but provides less than half the effort. 2-Substantial/Maximal Assistance-helper does MORE THAN HALF the effort. [place] lifts or holds trunk or limbs and provides more than half the effort. 7-Dhnwjofhy-eeguvi does ALL the effort. Patient does none of the effort to complete the activity. Or, the assistance of 2 or more helpers is required for the patient to complete the activity. If activity was not attempted, code reason: 7-Patient Refused. 9-Not Applicable-not attempted and the patient did not perform the activity before the current illness, exacerbation or injury. 10-Not Attempted due to Environmental Limitations-(lack of equipment, weather restraints, etc.). 88-Not Attempted due to Medical Conditions or Safety Concerns. Eating (QC): 6 (Pt reports having no difficulty eating lunch) Toileting Hygiene (QC): 4 (SBA) Toilet Transfer (QC): 4 (SBA) Pt required increased time with ADLs due to slow movements Other Treatment Pt seated in recliner, agreeable to OT Tx. Pt stated she had no difficulty eating lunch, she was able to get a cheeseburger and fries. Pt asked to use the restroom, OT managed lines and wound vac as pt ambulated to bathroom using FWW and SBA. Pt completed toileting then stood at the sink to wash her hands. Pt returned to her recliner as OT managed IV pole. Post OT Tx, pt seated in recliner, call light in reach and all needs met. Education OT Patient Education: Correct positioning, Modified ADL techniques, Progress toward Goal/Update tx plan, Purpose of tx/functional activities Teaching Recipient: Patient Teaching Methods: Discussion Response to Teaching: Verbalize Understanding OT Snf Goals Snf Goals Time Frame: Jul 20, 2020 Eating (QC): 6 Oral Hygiene (QC): 6 Toileting Hygiene (QC): 6 Shower/Bathe Self (QC): 6 Upper Body Dressing (QC): 6 Lower Body Dressing (QC): 6 On/Off Footwear (QC): 6 Additional Goals: 1-Demonstrate ADL Tasks, 2-Verbalize Understanding, 3- ImproveStrength/Fern 1=Demonstrate adherence to instructed precautions during ADL tasks. 2=Patient will verbalize/demonstrate understanding of assistive devices/modif ications for ADL. 3=Patient will improve strength/tolerance for activity to enable patient to perform ADL's. OT Education/Plan Problem List/Assessment Assessment: Decreased Activ Tolerance, Decreased UE Strength, Impaired I ADL's, Impaired Self-Care Skills Discharge Recommendations Plan/Recommendations: Continue POC Treatment Plan/Plan of Care Patient would benefit from OT for education, treatment and training to promote independence in ADL's, mobility, safety and/or upper extremity function for ADL's. Plan of Care: ADL Retraining, Concurrent Therapy, Functional Mobility, Group Exercise/Act as Ind, UE Funct Exercise/Act Treatment Duration: Jul 20, 2020 Frequency: At least 5 of 7 days/Wk (IRF) Estimated Hrs Per Day: 1.5 hours per day Agreement: Yes Rehab Potential: Good Time/GCodes Start Time: 13:00 Stop Time: 13:30 Total Time Billed (hr/min): 30 Billed Treatment Time 1, ADL 2 SHAVON BARTLETT OT Jul 08, 2020 13:57
--- NOTE | 2020-07-08 14:27 | Physical Therapy Daily Note ---
PT Daily Note-Current Subjective Pt. agrees to Rx. Feeling stronger and better Pain Location: No Pain Reported Mental Status Patient Orientation: Normal For Age Attachments: Other-See Comments (wound vacc), IV Transfers SCALE: Activities may be completed with or without assistive devices. 3-Nkombrqzak-zurvbvl completes the activity by him/herself with no assistance from a helper. 5-Set-up or Clean-up Assistance-helper sets up or cleans up; patient completes activity. [place] assists only prior to or following the activity. 4-Supervision or Touching Assistance-helper provides verbal cues and/or touching/steadying and/or contact guard assistance as patient completes activity. Assistance may be provided throughout the activity or intermittently. 3-Partial/Moderate Assistance-helper does LESS THAN HALF the effort. [place]cher lifts, holds or supports trunk or limbs, but provides less than half the effort. 2-Substantial/Maximal Assistance-helper does MORE THAN HALF the effort. Pitcher lifts or holds trunk or limbs and provides more than half the effort. 3-Hetihseoi-wswpjb does ALL the effort. Patient does none of the effort to complete the activity. Or, the assistance of 2 or more helpers is required for the patient to complete the activity. If activity was not attempted, code reason: 7-Patient Refused. 9-Not Applicable-not attempted and the patient did not perform the activity before the current illness, exacerbation or injury. 10-Not Attempted due to Environmental Limitations-(lack of equipment, weather restraints, etc.). 88-Not Attempted due to Medical Conditions or Safety Concerns. in out bed and chair all mod i Weight Bearing Right Lower Extremity: Right Weight Bearing/Tolerated Left Lower Extremity: Left Weight Bearing/Tolerated Gait Training Gait Assistive Device: FWW 75 ft x 2 slow, SBA to Mod i, assist for IV and [place] Exercises Supine Ex: Bridging, Ankle pumps, Quad Set, Rolling, Glut sets, Heel Slides, Short Arc Quads, Scooting, Straight leg raise, Hip abd/add Supine Reps: 15 Seated Therapy Exercises: Ankle pumps, Sit to stand, Long arc quads, Hip flexion Seated Reps: 15 Treatments up in recliner after Rx with call kaur at hand Assessment Current Status: Good Progress PT Short Term Goals Short Term Goals Time Frame: Jul 11, 2020 Sit to lyin Lying to sitting on side of be: 4 Sit to stand: 5 Walk 150 feet: 4 4 steps: 4 PT [place] Goals Chcf Goals PT Chcf Goals Time Frame: Jul 22, 2020 Roll Left & Right (QC): 6 Sit to Lying (QC): 6 Lying-Sitting on Side/Bed(QC): 6 Sit to Stand (QC): 6 Chair/Vqx-pa-Aoyxh Xfer(QC): 6 Toilet Transfer (QC): 6 Car Transfer (QC): 6 Does the Patient Walk: Yes Walk 10 feet (QC): 6 Walk 50ft with 2 Turns (QC): 6 Walk 150 ft (QC): 6 Walking 10ft on Uneven Surface: 6 1 Step (curb) (QC): 6 4 Steps (QC): 6 12 Steps (QC): 4 Picking up an Object (QC): 4 Wheel 50 feet with 2 turns (QC: 9 Wheel 150 feet: 9 PT Plan Treatment/Plan Treatment Plan: Continue Plan of Care Treatment Plan: Bed Mobility, Education, Functional Activity Fern, Functional Strength, Group Therapy, Gait, Safety, Therapeutic Exercise, Transfers Treatment Duration: Jul 22, 2020 Frequency: At least 5 of 7 days/Wk (IRF) Estimated Hrs Per Day: 1.5 hours per day Patient and/or Family Agrees t: Yes Safety Risks/Education Patient Education: Gait Training, Transfer Techniques, Correct Positioning, Disease Process, Safety Issues Teaching Recipient: Patient Teaching Methods: Discussion Response to Teaching: Verbalize Understanding, Return Demonstration Time/GCodes Time In: 1355 Time Out: 1425 Total Billed Treatment Time: 30 Total Billed Treatment 1,EX20m,GT10m AN CHUN GLASS DESIGNER Jul 08, 2020 14:27
--- NOTE | 2020-07-08 15:18 | NUR ---
PATIENT C/O IV LOCATION IN LEFT AC. IV CATHETER TIP VISIBLY GETTING KINKED IN AC SPACE. CONT TO CREATE OCCLUSION IN IV FLUID ADMIN. PATIENT DOES NOT WANT TO WEAR IMMOBILIZER IT IMPAIRS THERAPY. IV D/BERHANE AND PLACED IN RIGHT FOREARM. PATIENT IS LEFT HANDED. PATIENT TOLERATED WELL. IV FLUSHED WITH EASE. IV FLUIDS AND FLAGYL INFUSING AT THIS TIME. NO C/O AT THIS TIME. CONT TO MONITOR THIS TIME.
[2020-07-08] MEDS: ENOXAPARIN 40 MG/0.4 ML (LOVENOX) SYR SC SCH (17:44)
[2020-07-08 17:56] VITALS: BP 156/94
[2020-07-09] MEDS: NS IV 1000 ML 1,000 ML IV SCH (04:04)
[2020-07-09] MEDS: metroNIDAZOLE 500MG/100ML IVPB 100 ML IV SCH ×3 (06:25→21:48)
[2020-07-09] MEDS: HYDROcodone/APAP 5 MG/325 MG (LORTAB) TAB PO PRN ×3 (06:25→16:36)
[2020-07-09] MEDS: CEFEPIME INJECTION 1,000 MG in WATER (STERILE) FOR INJECTION 10 ML IV SCH ×4 (06:25→23:54)
[2020-07-09 06:26] VITALS: BP 157/86
--- NOTE | 2020-07-09 06:47 | PM&R Progress Note ---
Subjective HPI/CC On Admission Date Seen by Provider: Jul 09, 2020 Time Seen by Provider: 10:00 Subjective/Events-last exam 07/09/20: Pt reports abdominal pain where the wound vac is Bowels are still loose and watery Overall feels like she is doing pretty good otherwise Chronic debility is improving 07/08/20: Needs pain medication before wound vac change Overall feels pretty good Eating and drinking well Overall progressing nicely 07/07/20: WBC 13.4 down from 16 Watery diarrhea Buttpaste ordered for ramos-area Lortab taken this morning Checked meds and labs Reviewed therapy notes Conferred with apprentice lineman third step of Systems General: Fatigue, Malaise Neurological: Weakness Objective Exam Vital Signs Vital Signs Date Time Temp Pulse Resp B/P (MAP) Pulse Ox O2 Delivery O2 Flow Rate FiO2 07/09/20 18:00 36.0 94 16 151/74 (99) 99 Room Air 07/09/20 14:02 21 Capillary Refill : Less Than 3 Seconds General Appearance: No Apparent Distress, WD/WN, Chronically ill HEENT: PERRL/EOMI, Normal ENT Inspection, Pharynx Normal Neck: Full Range of Motion, Normal Inspection, Non Tender, Supple, Carotid Bruit Respiratory: Chest Non Tender, Lungs Clear, Normal Breath Sounds, No Accessory Muscle Use, No Respiratory Distress Cardiovascular: Regular Rate, Rhythm, No Gallop, No JVD, No Murmur, Normal Peripheral Pulses Gastrointestinal: Normal Bowel Sounds, No Organomegaly, No Pulsatile Mass, Soft, Tenderness, Other (wound vac in place) Back: Normal Inspection, No CVA Tenderness, No Vertebral Tenderness Extremity: Normal Capillary Refill, Normal Inspection, Normal Range of Motion, Non Tender, No Calf Tenderness, Pedal Edema Neurologic/Psychiatric: Alert, Oriented x3, No Motor/Sensory Deficits, Normal Mood/Affect, elevator installer II-XII Norm as Tested, Motor Weakness (generalized weakness all extremities 4/5) Skin: Normal Color, Warm/Dry Lymphatic: No Adenopathy Results/Procedures Lab Patient resulted labs reviewed. FIM Transfers Therapy Code Descriptions/Definitions Functional [place] Measure: 0=Not Assessed/NA 4=Minimal Assistance 1=Total Assistance 5=Supervision or Setup 2=Maximal Assistance 6=Modified [place] 3=Moderate Assistance 7=Complete IndependenceSCALE: Activities may be completed with or without assistive devices. 9-Zmifwtxyje-iqsxayx completes the activity by him/herself with no assistance from a helper. 5-Set-up or Clean-up Assistance-helper sets up or cleans up; patient completes activity. [place] assists only prior to or following the activity. 4-Supervision or Touching Assistance-helper provides verbal cues and/or touching/steadying and/or contact guard assistance as patient completes activity. Assistance may be provided throughout the activity or intermittently. 3-Partial/Moderate Assistance-helper does LESS THAN HALF the effort. [place] lifts, holds or supports trunk or limbs, but provides less than half the effort. 2-Substantial/Maximal Assistance-helper does MORE THAN HALF the effort. [place] lifts or holds trunk or limbs and provides more than half the effort. 3-Kaksgiuoy-qerhez does ALL the effort. Patient does none of the effort to complete the activity. Or, the assistance of 2 or more helpers is required for the patient to complete the activity. If activity was not attempted, code reason: 7-Patient Refused. 9-Not Applicable-not attempted and the patient did not perform the activity b efore the current illness, exacerbation or injury. 10-Not Attempted due to Environmental Limitations-(lack of equipment, weather restraints, etc.). 88-Not Attempted due to Medical Conditions or Safety Concerns. Roll Left to Right (QC): 6 Sit to Lying (QC): 6 Sit to Stand (QC): 6 Chair/Txd-il-Nqqaj Xfer(QC): 6 Car Transfer (QC): 4 Gait Training Does the Patient Walk?: Yes Distance: 400'x2 Walk 10 feet (QC): 5 Walk 50 ft with 2 Turns(QC): 5 Walk 150 ft (QC): 5 Walking 10ft/uneven surface-QC: 0 (will assess at follow up visit) Gait Persons Needed: 1 Gait Assistive Device: FWW Wheelchair Training Does the Pt Use a Wheelchair?: No Wheel 50 ft with 2 turns (QC): 9 Wheel 150 ft (QC): 9 Stair Training Stair Training: Handrails/: uses walker #of Steps: 1 1 Step (curb) (QC): 4 4 Steps (QC): 0 12 Steps (QC): 88 Balance Picking up an Object (QC): 88 ADL-Treatment Eating (QC): 6 (Pt reports having no difficulty eating lunch) Oral Hygiene (QC): 6 (IND seated at sink) Shower/Bathe Self (QC): 4 (Pt completed sponge bath seated at sink, SBA in stance.) Upper Body Dressing (QC): 5 (set up ) Lower Body Dressing (QC): 4 (SBA in stance for pant hike.) On/Off Footwear (QC): 3 (min A due to pain. 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 Anasarca hx Hirsutism Poor albumin level improved h/o Ascites s/p paracentesis just bloody serous NGTD Anemia s/p transfusions 2 units 03/17/20 Situational depression Plan: IRF protocol Continue treatment plan Appreciate Surgery management 07/07/20: Monitor white count now 13 down from 16 Watery diarrhea monitoring Butt paste as needed Pain medication as needed 07/08/20: Continue changing wound vac Pain medication before wound vac change Continue strengthening from physical therapy Encourage good nutrition 07/09/20: Continue wound vac changes Bowels still loose Supportive care (1) Debility (2) Evisceration of bowel Status: Acute (3) Surgical wound dehiscence Status: Acute (4) Hypertensive emergency Status: Acute (5) Hypertension Status: Chronic (6) Hyperlipidemia Status: Chronic (7) Coronary artery disease Status: Chronic (8) Abdominal pain Status: Acute (9) Anasarca (10) Anemia (11) Hirsutism (12) Leukocytosis SESAR BEEBE DO Jul 09, 2020 06:47
[2020-07-09] MEDS: polyethylene glycoL POWDER 17 GM (MIRALAX) PACK PO SCH ×2 (08:06→21:02)
[2020-07-09] MEDS: DOCUSATE SODIUM 100 MG (COLACE) CAP PO SCH ×2 (08:06→21:02)
[2020-07-09] MEDS: meTOprolol SUCCINATE 100 MG (TOPROL XL) TAB PO SCH (08:06)
[2020-07-09] MEDS: SENNA W/DOCUSATE (SENOKOT S) TABLET PO SCH ×2 (08:06→21:03)
[2020-07-09 08:14] VITALS: BP 147/82
--- NOTE | 2020-07-09 10:11 | Occupational Ther Daily Note ---
OT Current Status-Daily Note Subjective Pt seen in room, up in recliner, agreeable to OT. No pain mentioned to OT. Appearance Alert, cooperative. Good advocate for her care. Mental Status/Objective Patient Orientation: Person, Place, Time, Situation Attachments: IV, Other-See Comments (wound vac) ADL-Treatment Pt got up from recliner with SBA, FWW, and walked SBA, FWW to bathroom, with OT help with IV pole and wound vac. Pt managed tubing, with cues. Toilet transfer mod I, using grab bar and taller toilet. Toileting mod I, with pt managing clothing and hygiene. Pt walked SBA, FWW to sink and sat on BSC to bathe, pulling chair up behind her without help. She cleaned her dentures and washed her hair with bath pack, combed hair, all mod I, seated at sink. She ran water for sponge bath and washed/dried upper body without help and lower body with SBA for balance. She was able to reach her lower legs and balance on one leg, without LOB. She dressed upper body with setup and lower body with SBA for safety. Pt walked back to recliner with SBA, FWW, with OT managing IV pole. Transferred back into recliner without help. Therapy Code Descriptions/Definitions Functional [place] Measure: 0=Not Assessed/NA 4=Minimal Assistance 1=Total Assistance 5=Supervision or Setup 2=Maximal Assistance 6=Modified [place] 3=Moderate Assistance 7=Complete IndependenceSCALE: Activities may be completed with or without assistive devices. 4-Iupzuiuezz-ajqbmhr completes the activity by him/herself with no assistance from a helper. 5-Set-up or Clean-up Assistance-helper sets up or cleans up; patient completes activity. [place] assists only prior to or following the activity. 4-Supervision or Touching Assistance-helper provides verbal cues and/or touching/steadying and/or contact guard assistance as patient completes activity. Assistance may be provided throughout the activity or intermittently. 3-Partial/Moderate Assistance-helper does LESS THAN HALF the effort. [place] lifts, holds or supports trunk or limbs, but provides less than half the effort. 2-Substantial/Maximal Assistance-helper does MORE THAN HALF the effort. [place] lifts or holds trunk or limbs and provides more than half the effort. 0-Rajjtzkvi-eaasqz does ALL the effort. Patient does none of the effort to complete the activity. Or, the assistance of 2 or more helpers is required for the patient to complete the activity. If activity was not attempted, code reason: 7-Patient Refused. 9-Not Applicable-not attempted and the patient did not perform the activity before the current illness, exacerbation or injury. 10-Not Attempted due to Environmental Limitations-(lack of equipment, weather restraints, etc.). 88-Not Attempted due to Medical Conditions or Safety Concerns. Oral Hygiene (QC): 6 Shower/Bathe Self (QC): 4 (SBA) Upper Body Dressing (QC): 5 (setup) Lower Body Dressing (QC): 4 (SBA) Toileting Hygiene (QC): 6 Toilet Transfer (QC): 6 Other Treatment Pt provided with yellow theraband (gentle resistance) and was shown 4 different bilat UE exercises that she can do in her room. She completed 10 reps each. These work on muscle groups that help with sit to stand during transfers and ADLs. Pt encouraged to do exercises on her own and return demo'd stretches. Pt left up in recliner, all needs met, IV and wound vac plugged in. Education OT Patient Education: Exercise program, Modified ADL techniques, Progress toward Goal/Update tx plan, Purpose of tx/functional activities Teaching Recipient: Patient Teaching Methods: Demonstration, Discussion Response to Teaching: Verbalize Understanding, Return Demonstration OT Custodial Goals Tissue Technician Goals Time Frame: Jul 20, 2020 Eating (QC): 6 Oral Hygiene (QC): 6 Toileting Hygiene (QC): 6 Shower/Bathe Self (QC): 6 Upper Body Dressing (QC): 6 Lower Body Dressing (QC): 6 On/Off Footwear (QC): 6 Additional Goals: 1-Demonstrate ADL Tasks, 2-Verbalize Understanding, 3- ImproveStrength/Fern 1=Demonstrate adherence to instructed precautions during ADL tasks. 2=Patient will verbalize/demonstrate understanding of assistive devices/modifications for ADL. 3=Patient will improve strength/tolerance for activity to enable patient to perform ADL's. OT Education/Plan Discharge Recommendations Plan/Recommendations: Continue POC Treatment Plan/Plan of Care Patient would benefit from OT for education, treatment and training to promote independence in ADL's, mobility, safety and/or upper extremity function for ADL's. Plan of Care: ADL Retraining, Concurrent Therapy, Functional Mobility, Group Exercise/Act as Ind, UE Funct Exercise/Act Treatment Duration: Jul 20, 2020 Frequency: At least 5 of 7 days/Wk (IRF) Estimated Hrs Per Day: 1.5 hours per day Agreement: Yes Rehab Potential: Good Time/GCodes Start Time: 09:00 Stop Time: 10:00 Total Time Billed (hr/min): 60 Billed Treatment Time visit, 45 minutes ADL, 15 minutes exercise REVA PRINGLE OT Jul 09, 2020 10:11
--- NOTE | 2020-07-09 10:16 | NUR ---
[facility] IVF PER DR. BEEBE.
--- NOTE | 2020-07-09 11:51 | Physical Therapy Daily Note ---
PT Daily Note-Current Subjective Pt sitting in recliner upon arrival. Pt agrees to PT. Pain Location: No Pain Reported Mental Status Patient Orientation: Person, Place, Time, Situation Attachments: Other-See Comments (Wound Vac.), IV Transfers SCALE: Activities may be completed with or without assistive devices. 8-Gmqcddtzhf-wzctoha completes the activity by him/herself with no assistance from a helper. 5-Set-up or Clean-up Assistance-helper sets up or cleans up; patient completes activity. [place] assists only prior to or following the activity. 4-Supervision or Touching Assistance-helper provides verbal cues and/or touching/steadying and/or contact guard assistance as patient completes activity. Assistance may be provided throughout the activity or intermittently. 3-Partial/Moderate Assistance-helper does LESS THAN HALF the effort. [place] lifts, holds or supports trunk or limbs, but provides less than half the effort. 2-Substantial/Maximal Assistance-helper does MORE THAN HALF the effort. [place] lifts or holds trunk or limbs and provides more than half the effort. 1-Jygzzayaw-vffqju does ALL the effort. Patient does none of the effort to complete the activity. Or, the assistance of 2 or more helpers is required for the patient to complete the activity. If activity was not attempted, code reason: 7-Patient Refused. 9-Not Applicable-not attempted and the patient did not perform the activity before the current illness, exacerbation or injury. 10-Not Attempted due to Environmental Limitations-(lack of equipment, weather restraints, etc.). 88-Not Attempted due to Medical Conditions or Safety Concerns. Sit to Stand (QC): 5 Weight Bearing Right Lower Extremity: Right Weight Bearing/Tolerated Left Lower Extremity: Left Weight Bearing/Tolerated Gait Training Does the Patient Walk?: Yes Distance: 100', 300' Walk 10 feet (QC): 5 Walk 50 ft with 2 Turns(QC): 5 Walk 150 ft (QC): 5 Gait Persons Needed: 1 Gait Assistive Device: FWW FRACTIONATION PLANT SUPERVISOR raised FWW to prevent pt from amb. with my kyphotic posture. Pt reports more comfortable. Wheelchair Training Does the Pt Use a Wheelchair?: No Exercises Supine Ex: Ankle pumps, Quad Set, Heel Slides, Straight leg raise, Hip abd/add Supine Reps: 15 NuStep Minutes: 15 NuStep Workload: 4 Treatments Pt transfers to standing and amb. in hallway. Pt uses NuStep for 15m at WL 4. Pt completes Supine Ex before amb. again in hallway extended distance. Pt returns to room to rest in recliner. Pt has all needs met, call light in hand. Assessment Current Status: Good Progress Pt is gaining strength and increasing mobility. PT Short Term Goals Short Term Goals Time Frame: Jul 11, 2020 Sit to lyin Lying to sitting on side of be: 4 Sit to stand: 5 Walk 150 feet: 4 4 steps: 4 PT Jail Goals Grass Farmer Goals PT Grass Farmer Goals Time Frame: Jul 22, 2020 Roll Left & Right (QC): 6 Sit to Lying (QC): 6 Lying-Sitting on Side/Bed(QC): 6 Sit to Stand (QC): 6 Chair/Upw-ro-Kxptn Xfer(QC): 6 Toilet Transfer (QC): 6 Car Transfer (QC): 6 Does the Patient Walk: Yes Walk 10 feet (QC): 6 Walk 50ft with 2 Turns (QC): 6 Walk 150 ft (QC): 6 Walking 10ft on Uneven Surface: 6 1 Step (curb) (QC): 6 4 Steps (QC): 6 12 Steps (QC): 4 Picking up an Object (QC): 4 Wheel 50 feet with 2 turns (QC: 9 Wheel 150 feet: 9 PT Plan Problem List Problem List: Activity Tolerance, Functional Strength Treatment/Plan Treatment Plan: Continue Plan of Care Treatment Plan: Bed Mobility, Education, Functional Activity Fern, Functional Strength, Group Therapy, Gait, Safety, Therapeutic Exercise, Transfers Treatment Duration: Jul 22, 2020 Frequency: At least 5 of 7 days/Wk (IRF) Estimated Hrs Per Day: 1.5 hours per day Patient and/or Family Agrees t: Yes Safety Risks/Education Patient Education: Gait Training, Transfer Techniques, Correct Positioning, Safety Issues Teaching Recipient: Patient Teaching Methods: Discussion Response to Teaching: Verbalize Understanding Time/GCodes Time In: 1030 Time Out: 1130 Total Billed Treatment Time: 60 Total Billed Treatment 1, GT (20m), EX x2 (30m) & FA (10m) PARTH TONEY FRACTIONATION PLANT SUPERVISOR Jul 09, 2020 11:51
--- NOTE | 2020-07-09 12:28 | Occupational Ther Daily Note ---
OT Current Status-Daily Note Subjective Pt seen in room, up in recliner, agreeable to OT. No pain mentioned. Appearance Alert, cooperative ADL-Treatment Therapy Code Descriptions/Definitions Functional [place] Measure: 0=Not Assessed/NA 4=Minimal Assistance 1=Total Assistance 5=Supervision or Setup 2=Maximal Assistance 6=Modified [place] 3=Moderate Assistance 7=Complete IndependenceSCALE: Activities may be completed with or without assistive devices. 9-Vctpvpklio-ktmrsod completes the activity by him/herself with no assistance from a helper. 5-Set-up or Clean-up Assistance-helper sets up or cleans up; patient completes activity. [place] assists only prior to or following the activity. 4-Supervision or Touching Assistance-helper provides verbal cues and/or touching/steadying and/or contact guard assistance as patient completes acti vity. Assistance may be provided throughout the activity or intermittently. 3-Partial/Moderate Assistance-helper does LESS THAN HALF the effort. [place] lifts, holds or supports trunk or limbs, but provides less than half the effort. 2-Substantial/Maximal Assistance-helper does MORE THAN HALF the effort. [place] lifts or holds trunk or limbs and provides more than half the effort. 8-Arcjgvsiu-gneiwp does ALL the effort. Patient does none of the effort to complete the activity. Or, the assistance of 2 or more helpers is required for the patient to complete the activity. If activity was not attempted, code reason: 7-Patient Refused. 9-Not Applicable-not attempted and the patient did not perform the activity before the current illness, exacerbation or injury. 10-Not Attempted due to Environmental Limitations-(lack of equipment, weather restraints, etc.). 88-Not Attempted due to Medical Conditions or Safety Concerns. Other Treatment Pt got up from recliner with SBA and walked SBA, FWW to gym, with OT managing IV pole with wound vac. Pt was able to get in/out of chair with arms without assistance but with effort. She completed 12 minutes bilat UE exercise with arm bike set at 15-20W resistance, taking two brief recovery breaks. She also completed graded clothes pins, without additional resistance, to strengthen arms to help with standing during transfers and ADL and functional mobility. She walked back to her room with SBA, FWW and settled into recliner, wound vac plugged in. Pt left up in recliner, all needs met. Education OT Patient Education: Exercise program, Progress toward Goal/Update tx plan, Purpose of tx/functional activities Teaching Recipient: Patient Teaching Methods: Discussion Response to Teaching: Verbalize Understanding OT Cylinder Sander Operator Goals Cylinder Sander Operator Goals Time Frame: Jul 20, 2020 Eating (QC): 6 Oral Hygiene (QC): 6 Toileting Hygiene (QC): 6 Shower/Bathe Self (QC): 6 Upper Body Dressing (QC): 6 Lower Body Dressing (QC): 6 On/Off Footwear (QC): 6 Additional Goals: 1-Demonstrate ADL Tasks, 2-Verbalize Understanding, 3-ImproveStrength/Fern 1=Demonstrate adherence to instructed precautions during ADL tasks. 2=Patient will verbalize/demonstrate understanding of assistive devices/modifications for ADL. 3=Patient will improve strength/tolerance for activity to enable patient to perform ADL's. OT Education/Plan Discharge Recommendations Plan/Recommendations: Continue POC Treatment Plan/Plan of Care Patient would benefit from OT for education, treatment and training to promote independence in ADL's, mobility, safety and/or upper extremity function for ADL's. Plan of Care: ADL Retraining, Concurrent Therapy, Functional Mobility, Group Exercise/Act as Ind, UE Funct Exercise/Act Treatment Duration: Jul 20, 2020 Frequency: At least 5 of 7 days/Wk (IRF) Estimated Hrs Per Day: 1.5 hours per day Agreement: Yes Rehab Potential: Good Time/GCodes Start Time: 11:45 Stop Time: 12:15 Total Time Billed (hr/min): 30 Billed Treatment Time visit, 30 minutes exercise REVA PRINGLE OT Jul 09, 2020 12:28
[2020-07-09 14:02] VITALS: BP 147/82
--- NOTE | 2020-07-09 15:10 | Physical Therapy Daily Note ---
PT Daily Note-Current Subjective Pt sitting in recliner upon arrival. Pt agrees to PT. Pain Location: No Pain Reported Mental Status Patient Orientation: Person, Place, Time, Situation Attachments: Other-See Comments (Wound Vac.), IV Transfers SCALE: Activities may be completed with or without assistive devices. 6-Hshgyrkjat-oaxneww completes the activity by him/herself with no assistance from a helper. 5-Set-up or Clean-up Assistance-helper sets up or cleans up; patient completes activity. [place] assists only prior to or following the activity. 4-Supervision or Touching Assistance-helper provides verbal cues and/or touching/steadying and/or contact guard assistance as patient completes activity. Assistance may be provided throughout the activity or intermittently. 3-Partial/Moderate Assistance-helper does LESS THAN HALF the effort. [place] lifts, holds or supports trunk or limbs, but provides less than half the effort. 2-Substantial/Maximal Assistance-helper does MORE THAN HALF the effort. [place] lifts or holds trunk or limbs and provides more than half the effort. 8-Idadtsnwq-xbrurv does ALL the effort. Patient does none of the effort to complete the activity. Or, the assistance of 2 or more helpers is required for the patient to complete the activity. If activity was not attempted, code reason: 7-Patient Refused. 9-Not Applicable-not attempted and the patient did not perform the activity before the current illness, exacerbation or injury. 10-Not Attempted due to Environmental Limitations-(lack of equipment, weather restraints, etc.). 88-Not Attempted due to Medical Conditions or Safety Concerns. Sit to Stand (QC): 5 Weight Bearing Right Lower Extremity: Right Weight Bearing/Tolerated Left Lower Extremity: Left Weight Bearing/Tolerated Gait Training Does the Patient Walk?: Yes Distance: 400', 100' Walk 10 feet (QC): 5 Walk 50 ft with 2 Turns(QC): 5 Walk 150 ft (QC): 5 Gait Persons Needed: 1 Gait Assistive Device: FWW Wheelchair Training Does the Pt Use a Wheelchair?: No Exercises Standing: Hip Abduction, Hamstring curls, Heel/toe raises, Marching, Weight shifts Standing Reps: 20 Treatments Pt transfers to standing and amb. in hallway. Pt stands at //bars to complete Standing Ex. Pt returns to room to rest in recliner at end of tx. Pt has all needs met, call light in hand. Assessment Current Status: Good Progress Pt continues to gain strength and activity tolerance. PT Short Term Goals Short Term Goals Time Frame: Jul 11, 2020 Sit to lyin Lying to sitting on side of be: 4 Sit to stand: 5 Walk 150 feet: 4 4 steps: 4 PT [facility] Goals [facility] Goals PT Instructional Consultant Goals Time Frame: Jul 22, 2020 Roll Left & Right (QC): 6 Sit to Lying (QC): 6 Lying-Sitting on Side/Bed(QC): 6 Sit to Stand (QC): 6 Chair/Qbp-pb-Qaode Xfer(QC): 6 Toilet Transfer (QC): 6 Car Transfer (QC): 6 Does the Patient Walk: Yes Walk 10 feet (QC): 6 Walk 50ft with 2 Turns (QC): 6 Walk 150 ft (QC): 6 Walking 10ft on Uneven Surface: 6 1 Step (curb) (QC): 6 4 Steps (QC): 6 12 Steps (QC): 4 Picking up an Object (QC): 4 Wheel 50 feet with 2 turns (QC: 9 Wheel 150 feet: 9 PT Plan Problem List Problem List: Activity Tolerance, Functional Strength Treatment/Plan Treatment Plan: Continue Plan of Care Treatment Plan: Bed Mobility, Education, Functional Activity Fern, Functional Strength, Group Therapy, Gait, Safety, Therapeutic Exercise, Transfers Treatment Duration: Jul 22, 2020 Frequency: At least 5 of 7 days/Wk (IRF) Estimated Hrs Per Day: 1.5 hours per day Patient and/or Family Agrees t: Yes Safety Risks/Education Patient Education: Correct Positioning, Safety Issues Teaching Recipient: Patient Teaching Methods: Discussion Response to Teaching: Verbalize Understanding Time/GCodes Time In: 1430 Time Out: 1500 Total Billed Treatment Time: 30 Total Billed Treatment 1, GT (15m) & EX (15m) PARTH TONEY SOFTWARE QUALITY TEST ENGINEER Jul 09, 2020 15:10
--- NOTE | 2020-07-09 15:52 | NUR ---
CM/SS ADMISSION and PATIENT CARE CONFERENCE REVIEW Patient was admitted to ARU 07/06/20 from [facility] medical/surgical acute for debility. She had just undergone a secondary surgery for evisceration of bowel and wound dehiscence. Other diagnoses are, in part, chronic hypertension, hyperlipidemia, chronic CAD, abdominal pain, anasarca, anemia, hirsutism. Patient had an ileostomy in February of this year, returned 06/24/20 for small bowel resection and discharged 07/02. Returned 07/04 with evisceration of bowel with emergency surgery to follow. Patient stayed with a friend/caregiver after the initial ostomy surgery but had since returned to her own home. Her intention is to return there when released. She does reside alone and has a minimal support system regarding assistance. Her friend of 25 years, Donna Perez, has her own in-home caregiving agency which has nearly doubled so she does not have ample time to provide for patient. PCP: Heide Madsen APRN PHARMACY: [facility] INSURANCE: Uninsured, under [facility] at this time and making payments on previous medical bills. Attempted to apply for Disability but has too much fraga asset to qualify. Will continue to explore with Financial Services staff. Patient is getting unemployment at present time until it terminates. DME: Patient has two borrowed items, FWW and cane. BARRIERS TO DISCHARGE: Uninsured status, particularly if wound vac is needed. CONTACTS: Donna Perez, Friend/DPOA [address] [place] [address] Discussed Summary of Patient Care Conference with patient, she is in agreement to continued stay with [facility] 07/15/20. She has been on ARU earlier this year and does understand the purpose and process.
--- NOTE | 2020-07-09 16:55 | Progress Note - Surgery ---
FITONKECHI MED STUDENT 07/09/204: Subjective Date Seen by a Provider: Jul 09, 2020 Time Seen by a Provider: 07:40 Subjective/Events-last exam Pt continues to look better every day and regain more energy. Began solid diet yesterday and has been tolerating it well. Has continued to increase activity. Reports normal flatulence. Denies n/v, fever, chills, sob, chest pain. Objective Exam Vital Signs Date Time Temp Pulse Resp B/P (MAP) Pulse Ox O2 Delivery O2 Flow Rate FiO2 07/09/20 14:02 36.9 87 99 21 07/09/20 09:37 Room Air 07/09/20 08:14 87 147/82 (103) 07/09/20 06:26 36.9 84 16 157/86 (109) 99 Room Air 07/08/20 23:12 Room Air 07/08/20 21:00 Room Air 07/08/20 17:56 36.5 90 16 156/94 (114) 94 Room Air I & O 07/09/20 07:00 Intake Total 2280 ml Balance 2280 ml Capillary Refill : Less Than 3 Seconds General Appearance: No Apparent Distress, WD/WN, Chronically ill HEENT: PERRL/EOMI, Normal ENT Inspection, Pharynx Normal Neck: Full Range of Motion, Normal Inspection, Non Tender, Supple, Carotid Bruit Respiratory: Chest Non Tender, Lungs Clear, Normal Breath Sounds, No Accessory Muscle Use, No Respiratory Distress Cardiovascular: Regular Rate, Rhythm, No Gallop, No JVD, No Murmur, Normal Peripheral Pulses Gastrointestinal: soft, tenderness (incisional incisions c/d/i midline with wound vac) Extremity: Normal Capillary Refill, Normal Inspection, Normal Range of Motion, Non Tender, No Calf Tenderness, Pedal Edema Neurologic/Psychiatric: Alert, Oriented x3, No Motor/Sensory Deficits, Normal Mood/Affect, ice skater II-XII Norm as Tested, Motor Weakness (generalized weakness all extremities 4/5) Skin: Normal Color, Warm/Dry Lymphatic: No Adenopathy Assessment/Plan Assessment/Plan Assessment/Plan s/p ex lap closure of abdomen and laparoscopic hernia repair with Phasix mesh for bowel evisceration tolerating diet - advance pain control rehab she continues to slowly improve ARIADNE CARDONA DO 07/09/202031: Subjective Subjective/Events-last exam Continues to feel better. Tolerating diet. Pain better. Denies n/v fever sweats chills shortness of breath or chest pain. Objective Exam General Appearance: No Apparent Distress, Chronically ill HEENT: PERRL/EOMI, Normal ENT Inspection Neck: Non Tender, Supple Respiratory: Chest Non Tender, No Accessory Muscle Use, No Respiratory Distress Cardiovascular: Regular Rate, Rhythm Gastrointestinal: soft, tenderness (incisional incisions c/d/i midline with wound vac) Extremity: Non Tender, No Calf Tenderness Neurologic/Psychiatric: Alert, Oriented x3, Normal Mood/Affect, Motor Weakness (generalized weakness all extremities 4/5) Skin: Normal Color, Warm/Dry Lymphatic: No Adenopathy Assessment/Plan Assessment/Plan Assessment/Plan s/p ex lap closure of abdomen and laparoscopic hernia repair with Phasix mesh for bowel evisceration open midline wound continue wound vac at midline change MWF Pain control diet as tolerates rehab Supervisory-Addendum Brief Verification & Attestation Participated in pt care: history, MDM, physical Personally performed: exam, history, MDM, supervision of care Care discussed with: Medical Student Procedures: n/a Results interpretation: Verified all documentation Verification and Attestation of Medical Student E/M Service A medical student performed and documented this service in my presence. I reviewed and verified all information documented by the medical student and made modifications to such information, when appropriate. I personally performed the physical exam and medical decision making. Ariadne Cardona, Jul 09, 2020,20:35 NKECHI PAYTON MED STUDENT Jul 09, 2020 16:54 ARIADNE CARDONA DO Jul 09, 2020 20:32
[2020-07-09] MEDS: ENOXAPARIN 40 MG/0.4 ML (LOVENOX) SYR SC SCH (17:27)
[2020-07-09 18:00] VITALS: BP 151/74
[2020-07-10 06:00] VITALS: BP 170/85
[2020-07-10] MEDS: metroNIDAZOLE 500MG/100ML IVPB 100 ML IV SCH ×3 (06:26→22:00)
[2020-07-10] MEDS: CEFEPIME INJECTION 1,000 MG in WATER (STERILE) FOR INJECTION 10 ML IV SCH ×3 (06:26→18:39)
[2020-07-10] MEDS: morphine INJ 4 MG/ML 1 ML (VIAL/SYRINGE) IVP PRN (06:46)
[2020-07-10] MEDS: DOCUSATE SODIUM 100 MG (COLACE) CAP PO SCH ×2 (08:51→19:42)
[2020-07-10] MEDS: polyethylene glycoL POWDER 17 GM (MIRALAX) PACK PO SCH ×2 (08:51→19:42)
[2020-07-10] MEDS: SENNA W/DOCUSATE (SENOKOT S) TABLET PO SCH ×2 (08:52→19:42)
[2020-07-10] MEDS: meTOprolol SUCCINATE 100 MG (TOPROL XL) TAB PO SCH (08:54)
--- NOTE | 2020-07-10 09:57 | PM&R Progress Note ---
Subjective HPI/CC On Admission Date Seen by Provider: Jul 10, 2020 Time Seen by Provider: 10:00 Subjective/Events-last exam 07/10/20: Changed wound vac and that will be done Monday, Monday and Monday Good healing Bowels are loose but that is a chronic issue Participating in therapy 07/09/20: Pt reports abdominal pain where the wound vac is Bowels are still loose and watery Overall feels like she is doing pretty good otherwise Chronic debility is improving 07/08/20: Needs pain medication before wound vac change Overall feels pretty good Eating and drinking well Overall progressing nicely 07/07/20: WBC 13.4 down from 16 Watery diarrhea Buttpaste ordered for ramos-area Lortab taken this morning Checked meds and labs Reviewed therapy notes Conferred with wheelchair driver of Systems General: Fatigue, Malaise Neurological: Weakness Objective Exam Vital Signs Vital Signs Date Time Temp Pulse Resp B/P (MAP) Pulse Ox O2 Delivery O2 Flow Rate FiO2 07/10/20 18:00 36.5 87 16 159/83 (108) 99 Room Air 07/09/20 14:02 21 Capillary Refill : Less Than 3 Seconds General Appearance: No Apparent Distress, WD/WN, Chronically ill HEENT: PERRL/EOMI, Normal ENT Inspection, Pharynx Normal Neck: Full Range of Motion, Normal Inspection, Non Tender, Supple, Carotid Bruit Respiratory: Chest Non Tender, Lungs Clear, Normal Breath Sounds, No Accessory Muscle Use, No Respiratory Distress Cardiovascular: Regular Rate, Rhythm, No Gallop, No JVD, No Murmur, Normal Peripheral Pulses Gastrointestinal: Normal Bowel Sounds, No Organomegaly, No Pulsatile Mass, Soft, Tenderness, Other (wound vac in place) Back: Normal Inspection, No CVA Tenderness, No Vertebral Tenderness Extremity: Normal Capillary Refill, Normal Inspection, Normal Range of Motion, Non Tender, No Calf Tenderness, Pedal Edema Neurologic/Psychiatric: Alert, Oriented x3, No Motor/Sensory Deficits, Normal Mood/Affect, taxation consultant II-XII Norm as Tested, Motor Weakness (generalized weakness all extremities 4/5) Skin: Normal Color, Warm/Dry Lymphatic: No Adenopathy Results/Procedures Lab Patient resulted labs reviewed. FIM Transfers Therapy Code Descriptions/Definitions Functional [place] Measure: 0=Not Assessed/NA 4=Minimal Assistance 1=Total Assistance 5=Supervision or Setup 2=Maximal Assistance 6=Modified [place] 3=Moderate Assistance 7=Complete IndependenceSCALE: Activities may be completed with or without assistive devices. 4-Dyrhaxuord-kfokzgf completes the activity by him/herself with no assistance from a helper. 5-Set-up or Clean-up Assistance-helper sets up or cleans up; patient completes activity. [place] assists only prior to or following the activity. 4-Supervision or Touching Assistance-helper provides verbal cues and/or touching/steadying and/or contact guard assistance as patient completes activity. Assistance may be provided throughout the activity or intermittently. 3-Partial/Moderate Assistance-helper does LESS THAN HALF the effort. [place] lifts, holds or supports trunk or limbs, but provides less than half the effort. 2-Substantial/Maximal Assistance-helper does MORE THAN HALF the effort. [place] lifts or holds trunk or limbs and provides more than half the effort. 2-Kgutkuumo-rqaxzj does ALL the effort. Patient does none of the effort to complete the activity. Or, the assistance of 2 or more helpers is required for the patient to complete the activity. If activity was not attempted, code reason: 7-Patient Refused. 9-Not Applicable-not attempted and the patient did not perform the activity before the current illness, exacerbation or injury. 10-Not Attempted due to Environmental Limitations-(lack of equipment, weather restraints, etc.). 88-Not Attempted due to Medical Conditions or Safety Concerns. Roll Left to Right (QC): 6 Sit to Lying (QC): 6 Sit to Stand (QC): 5 Chair/Tqi-yl-Yhewq Xfer(QC): 6 Car Transfer (QC): 4 Gait Training Does the Patient Walk?: Yes Distance: 400', 100' Walk 10 feet (QC): 5 Walk 50 ft with 2 Turns(QC): 5 Walk 150 ft (QC): 5 Walking 10ft/uneven surface-QC: 0 (will assess at follow up visit) Gait Persons Needed: 1 Gait Assistive Device: FWW Wheelchair Training Does the Pt Use a Wheelchair?: No Wheel 50 ft with 2 turns (QC): 9 Wheel 150 ft (QC): 9 Stair Training Stair Training: Handrails/: uses walker #of Steps: 1 1 Step (curb) (QC): 4 4 Steps (QC): 0 12 Steps (QC): 88 Balance Picking up an Object (QC): 88 ADL-Treatment Eating (QC): 6 (Pt reports having no difficulty eating lunch) Oral Hygiene (QC): 6 Shower/Bathe Self (QC): 4 (SBA) Upper Body Dressing (QC): 5 (setup) Lower Body Dressing (QC): 4 (SBA) On/Off Footwear (QC): 3 (min A due to pain. 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 Anasarca hx Hirsutism Poor albumin level improved h/o Ascites s/p paracentesis just bloody serous NGTD Anemia s/p transfusions 2 units 03/17/20 Situational depression Plan: IRF protocol Continue treatment plan Appreciate Surgery management 07/07/20: Monitor white count now 13 down from 16 Watery diarrhea monitoring Butt paste as needed Pain medication as needed 07/08/20: Continue changing wound vac Pain medication before wound vac change Continue strengthening from physical therapy Encourage good nutrition 07/09/20: Continue wound vac changes Bowels still loose Supportive care 07/10/20: Maintain wound vac change Monday, Monday, and Monday Good healing Bowels are still a little bit loose Continue aggressive treatment (1) Debility (2) Evisceration of bowel Status: Acute (3) Surgical wound dehiscence Status: Acute (4) Hypertensive emergency Status: Acute (5) Hypertension Status: Chronic (6) Hyperlipidemia Status: Chronic (7) Coronary artery disease Status: Chronic (8) Abdominal pain Status: Acute (9) Anasarca (10) Anemia (11) Hirsutism (12) Leukocytosis SESAR BEEBE DO Jul 10, 2020 09:56
--- NOTE | 2020-07-10 10:44 | Occupational Ther Daily Note ---
OT Current Status-Daily Note Subjective Pt seen in room, up in bed, agreeable to OT. No pain mentioned. Appearance Alert, cooperative Mental Status/Objective Patient Orientation: Person, Place, Time, Situation Attachments: Saline Lock, Other-See Comments (wound vac) ADL-Treatment Pt transitioned from supine to sit EOB with SBA and a little difficulty. She got up from bed SBA and walked with FWW to bathroom, SBA, with OT managing wound vac. She toileted with mod I and completed toilet transfer mod I. SBA to walk to sink, then she pulled chair up behind her without help, She cleaned her dentures, combed hair mod I, seated at sink. She ran water for sponge bath and washed/dried upper body without help and lower body and mod I for balance. . She dressed upper and lower body with setup. Pt walked to recliner with SBA, FWW and was left up in chair, all needs met. Therapy Code Descriptions/Definitions Functional [place] Measure: 0=Not Assessed/NA 4=Minimal Assistance 1=Total Assistance 5=Supervision or Setup 2=Maximal Assistance 6=Modified [place] 3=Moderate Assistance 7=Complete IndependenceSCALE: Activities may be completed with or without assistive devices. 4-Ugsyhtiodl-tuqkldt completes the activity by him/herself with no assistance from a helper. 5-Set-up or Clean-up Assistance-helper sets up or cleans up; patient completes activity. [place] assists only prior to or following the activity. 4-Supervision or Touching Assistance-helper provides verbal cues and/or touching/steadying and/or contact guard assistance as patient completes activity. Assistance may be provided throughout the activity or intermittently. 3-Partial/Moderate Assistance-helper does LESS THAN HALF the effort. [place] lifts, holds or supports trunk or limbs, but provides less than half the effort. 2-Substantial/Maximal Assistance-helper does MORE THAN HALF the effort. [place] lifts or holds trunk or limbs and provides more than half the effort. 7-Lvaidwhrk-whjrdq does ALL the effort. Patient does none of the effort to complete the activity. Or, the assistance of 2 or more helpers is required for the patient to complete the activity. If activity was not attempted, code reason: 7-Patient Refused. 9-Not Applicable-not attempted and the patient did not perform the activity before the current illness, exacerbation or injury. 10-Not Attempted due to Environmental Limitations-(lack of equipment, weather restraints, etc.). 88-Not Attempted due to Medical Conditions or Safety Concerns. Oral Hygiene (QC): 6 Shower/Bathe Self (QC): 6 Upper Body Dressing (QC): 5 Lower Body Dressing (QC): 5 On/Off Footwear: 5 Toileting Hygiene (QC): 6 Toilet Transfer (QC): 6 Education OT Patient Education: Modified ADL techniques, Progress toward Goal/Update tx plan, Purpose of tx/functional activities, Rehab process Teaching Recipient: Patient Teaching Methods: Discussion Response to Teaching: Verbalize Understanding, Return Demonstration OT Senior Information Developer Goals Senior Information Developer Goals Time Frame: Jul 20, 2020 Eating (QC): 6 Oral Hygiene (QC): 6 Toileting Hygiene (QC): 6 Shower/Bathe Self (QC): 6 Upper Body Dressing (QC): 6 Lower Body Dressing (QC): 6 On/Off Footwear (QC): 6 Additional Goals: 1-Demonstrate ADL Tasks, 2-Verbalize Understanding, 3-Impro veStrength/[place]ern 1=Demonstrate adherence to instructed precautions during ADL tasks. 2=Patient will verbalize/demonstrate understanding of assistive devices/modifications for ADL. 3=Patient will improve strength/tolerance for activity to enable patient to perform ADL's. OT Education/Plan Discharge Recommendations Plan/Recommendations: Continue POC Treatment Plan/Plan of Care Patient would benefit from OT for education, treatment and training to promote independence in ADL's, mobility, safety and/or upper extremity function for ADL's. Plan of Care: ADL Retraining, Concurrent Therapy, Functional Mobility, Group Exercise/Act as Ind, UE Funct Exercise/Act Treatment Duration: Jul 20, 2020 Frequency: At least 5 of 7 days/Wk (IRF) Estimated Hrs Per Day: 1.5 hours per day Agreement: Yes Rehab Potential: Good Time/GCodes Start Time: 09:30 Stop Time: 10:30 Total Time Billed (hr/min): 60 Billed Treatment Time visit, 60 minutes ADL REVA PRINGLE OT Jul 10, 2020 10:44
--- NOTE | 2020-07-10 12:03 | Physical Therapy Daily Note ---
PT Daily Note-Current Subjective Agrees to Rx, feeling stronger, has good appetite Pain Location: No Pain Reported Mental Status Patient Orientation: Normal For Age Attachments: Other-See Comments (wound vacc) Transfers SCALE: Activities may be completed with or without assistive devices. 7-Kuzzfdqieh-ehbjdho completes the activity by him/herself with no assistance from a helper. 5-Set-up or Clean-up Assistance-helper sets up or cleans up; patient completes activity. [place] assists only prior to or following the activity. 4-Supervision or Touching Assistance-helper provides verbal cues and/or touching/steadying and/or contact guard assistance as patient completes activity. Assistance may be provided throughout the activity or intermittently. 3-Partial/Moderate Assistance-helper does LESS THAN HALF the effort. [place] lifts, holds or supports trunk or limbs, but provides less than half the effort. 2-Substantial/Maximal Assistance-helper does MORE THAN HALF the effort. [place] lifts or holds trunk or limbs and provides more than half the effort. 4-Atyddzfyo-rxhgnq does ALL the effort. Patient does none of the effort to complete the activity. Or, the assistance of 2 or more helpers is required for the patient to complete the activity. If activity was not attempted, code reason: 7-Patient Refused. 9-Not Applicable-not attempted and the patient did not perform the activity before the current illness, exacerbation or injury. 10-Not Attempted due to Environmental Limitations-(lack of equipment, weather restraints, etc.). 88-Not Attempted due to Medical Conditions or Safety Concerns. Roll Left & Right (QC): 6 Sit to Lying (QC): 6 Lying to Sitting/Side of Bed(Q: 6 Sit to Stand (QC): 6 Chair/Gtc-xu-Ffzza Xfer(QC): 6 Weight Bearing Right Lower Extremity: Right Weight Bearing/Tolerated Left Lower Extremity: Left Weight Bearing/Tolerated Gait Training Does the Patient Walk?: Yes Walk 10 feet (QC): 6 Walk 50 ft with 2 Turns(QC): 5 Walk 150 ft (QC): 5 Gait Persons Needed: 1 Gait Assistive Device: FWW CGA to SBA , assist for [place], no LOB, slow, fatigues a little Exercises Supine Ex: Bridging, Ankle pumps, Quad Set, Rolling, Glut sets, Heel Slides, Short Arc Quads, Scooting, Straight leg raise, Hip abd/add (sidelying) Supine Reps: 17 NuStep Minutes: 11 NuStep Workload: 4 Assessment Current Status: Good Progress PT Short Term Goals Short Term Goals Time Frame: Jul 11, 2020 Sit to lyin Lying to sitting on side of be: 4 Sit to stand: 5 Walk 150 feet: 4 4 steps: 4 PT Iron Worker Apprentice Goals Iron Worker Apprentice Goals PT Retirement Goals Time Frame: Jul 22, 2020 Roll Left & Right (QC): 6 Sit to Lying (QC): 6 Lying-Sitting on Side/Bed(QC): 6 Sit to Stand (QC): 6 Chair/Gsc-lx-Sakpu Xfer(QC): 6 Toilet Transfer (QC): 6 Car Transfer (QC): 6 Does the Patient Walk: Yes Walk 10 feet (QC): 6 Walk 50ft with 2 Turns (QC): 6 Walk 150 ft (QC): 6 Walking 10ft on Uneven Surface: 6 1 Step (curb) (QC): 6 4 Steps (QC): 6 12 Steps (QC): 4 Picking up an Object (QC): 4 Wheel 50 feet with 2 turns (QC: 9 Wheel 150 feet: 9 PT Plan Treatment/Plan Treatment Plan: Continue Plan of Care Treatment Plan: Bed Mobility, Education, Functional Activity [place], Functional Strength, Group Therapy, Gait, Safety, Therapeutic Exercise, Transfers Treatment Duration: Jul 22, 2020 Frequency: At least 5 of 7 days/Wk (IRF) Estimated Hrs Per Day: 1.5 hours per day Patient and/or Family Agrees t: Yes Safety Risks/Education Patient Education: Gait Training, Transfer Techniques, Correct Positioning, Disease Process, Safety Issues Teaching Recipient: Patient Teaching Methods: Demonstration, Discussion Response to Teaching: Verbalize Understanding, Return Demonstration, Reinforcement Needed Time/GCodes Time In: 1100 Time Out: 1200 Total Billed Treatment Time: 60 Total Billed Treatment 1,EX30m,FA10m,GT20m AN CHUN PTA Jul 10, 2020 12:03
[2020-07-10] MEDS: HYDROcodone/APAP 5 MG/325 MG (LORTAB) TAB PO PRN (14:32)
--- NOTE | 2020-07-10 14:58 | Therapy Group Daily Note ---
Therapy Daily Group Note Patient Education Topic Home Safety, Other List Below (ARU orientation) Exercises LE Seated Exercise, UE Exercise Session Ratio (pt:therapist): 3:1 Goal of Session: Education on ARU Expectations, Home Safety Strategies, UE/LE Strengthing Goal Met for this Session: Yes Pt Benefit of Group: Contributions to Others, F/U Use of Strategies @Home, Increased Functional Safety, Increased Functional Strength, Socialization Other/Notes Pt. participated in group PT OT session this date. Pt. ambulated to and from with FWW SBA. Pt. was social, introducing self and shared briefly her hometown and what she might like to eat when she is out of the hospital. Pt. demonstrated seated U&L extremity exercises to others in group reading and following directions from written illustrated exercises which were distributed to all participants just prior to group. Pt. participated well performing all exercises with a few verbal cues. Home safety was topic of education with patients sharing their knowledge and experiences. Tripping hazards, adequate lighting sources, efficient ways of communication in case of emergency, as well as bathroom rails etc were covered. Explanation of ARU expectations and goals was outlined . Pt. donned mask for entire group session. After group pt. was assisted to room , in to bthroom and call kaur at hand with all . Start Time: 13:00 Stop Time: 14:15 Total Billed Treatment Time: 75 Total Billed Treatment 1,GRP 75m AN CHUN FLORIST DESIGNER Jul 10, 2020 14:57
[2020-07-10 16:30] VITALS: BP 134/69
[2020-07-10 18:00] VITALS: BP 159/83
[2020-07-10] MEDS: ENOXAPARIN 40 MG/0.4 ML (LOVENOX) SYR SC SCH (18:39)
[2020-07-11] MEDS: CEFEPIME INJECTION 1,000 MG in WATER (STERILE) FOR INJECTION 10 ML IV SCH ×2 (00:03→06:24)
[2020-07-11 06:00] VITALS: BP 175/85
[2020-07-11] MEDS: metroNIDAZOLE 500MG/100ML IVPB 100 ML IV SCH (06:24)
--- NOTE | 2020-07-11 06:53 | PM&R Progress Note ---
Subjective HPI/CC On Admission Date Seen by Provider: Jul 11, 2020 Time Seen by Provider: 12:30 Subjective/Events-last exam 07/11/20: Patient doing well Regular diet tolerated well Wound vac MWF Abx will be changed to PO since IV went bad and can't replace due to poor access 07/10/20: Changed wound vac and that will be done Monday, Monday and Monday Good healing Bowels are loose but that is a chronic issue Participating in therapy 07/09/20: Pt reports abdominal pain where the wound vac is Bowels are still loose and watery Overall feels like she is doing pretty good otherwise Chronic debility is improving 07/08/20: Needs pain medication before wound vac change Overall feels pretty good Eating and drinking well Overall progressing nicely 07/07/20: WBC 13.4 down from 16 Watery diarrhea Buttpaste ordered for ramos-area Lortab taken this morning Checked meds and labs Reviewed therapy notes Conferred with pile driver operator of Systems General: Fatigue, Malaise Gastrointestinal: Abdominal Pain Objective Exam Vital Signs Vital Signs Date Time Temp Pulse Resp B/P (MAP) Pulse Ox O2 Delivery O2 Flow Rate FiO2 07/11/20 16:30 35.8 87 14 169/85 (113) 99 Room Air 07/09/20 14:02 21 Capillary Refill : Less Than 3 Seconds General Appearance: No Apparent Distress, WD/WN, Chronically ill HEENT: PERRL/EOMI, Normal ENT Inspection, Pharynx Normal Neck: Full Range of Motion, Normal Inspection, Non Tender, Supple, Carotid Bruit Respiratory: Chest Non Tender, Lungs Clear, Normal Breath Sounds, No Accessory Muscle Use, No Respiratory Distress Cardiovascular: Regular Rate, Rhythm, No Gallop, No JVD, No Murmur, Normal Peripheral Pulses Gastrointestinal: Normal Bowel Sounds, No Organomegaly, No Pulsatile Mass, Soft, Tenderness, Other (wound vac in place) Back: Normal Inspection, No CVA Tenderness, No Vertebral Tenderness Extremity: Normal Capillary Refill, Normal Inspection, Normal Range of Motion, Non Tender, No Calf Tenderness, Pedal Edema Neurologic/Psychiatric: Alert, Oriented x3, No Motor/Sensory Deficits, Normal Mood/Affect, solder leveler printed circuit boards II-XII Norm as Tested, Motor Weakness (generalized weakness all extremities 4/5) Skin: Normal Color, Warm/Dry Lymphatic: No Adenopathy Results/Procedures Lab Patient resulted labs reviewed. FIM Transfers Therapy Code Descriptions/Definitions Functional [place] Measure: 0=Not Assessed/NA 4=Minimal Assistance 1=Total Assistance 5=Supervision or Setup 2=Maximal Assistance 6=Modified [place] 3=Moderate Assistance 7=Complete IndependenceSCALE: Activities may be completed with or without assistive devices. 4-Fprmasviyn-xaznmxm completes the activity by him/herself with no assistance from a helper. 5-Set-up or Clean-up Assistance-helper sets up or cleans up; patient completes activity. [place] assists only prior to or following the activity. 4-Supervision or Touching Assistance-helper provides verbal cues and/or touching/steadying and/or contact guard assistance as patient completes activity. Assistance may be provided throughout the activity or intermittently. 3-Partial/Moderate Assistance-helper does LESS THAN HALF the effort. [place] lifts, holds or supports trunk or limbs, but provides less than half the effort. 2-Substantial/Maximal Assistance-helper does MORE THAN HALF the effort. [place] lifts or holds trunk or limbs and provides more than half the effort. 2-Hpmdolmej-oahmae does ALL the effort. Patient does none of the effort to complete the activity. Or, the assistance of 2 or more helpers is required for the patient to complete the activity. If activity was not attempted, code reason: 7-Patient Refused. 9-Not Applicable-not attempted and the patient did not perform the activity before the current illness, exacerbation or injury. 10-Not Attempted due to Environmental Limitations-(lack of equipment, weather restraints, etc.). 88-Not Attempted due to Medical Conditions or Safety Concerns. Roll Left to Right (QC): 6 Sit to Lying (QC): 6 Sit to Stand (QC): 6 Chair/Gyn-xk-Vxnli Xfer(QC): 6 Car Transfer (QC): 4 Gait Training Does the Patient Walk?: Yes Distance: 400', 100' Walk 10 feet (QC): 6 Walk 50 ft with 2 Turns(QC): 5 Walk 150 ft (QC): 5 Walking 10ft/uneven surface-QC: 0 (will assess at follow up visit) Gait Persons Needed: 1 Gait Assistive Device: FWW Wheelchair Training Does the Pt Use a Wheelchair?: No Wheel 50 ft with 2 turns (QC): 9 Wheel 150 ft (QC): 9 Stair Training Stair Training: Handrails/: uses walker #of Steps: 1 1 Step (curb) (QC): 4 4 Steps (QC): 0 12 Steps (QC): 88 Balance Picking up an Object (QC): 88 ADL-Treatment Eating (QC): 6 (Pt reports having no difficulty eating lunch) Oral Hygiene (QC): 6 Shower/Bathe Self (QC): 6 Upper Body Dressing (QC): 5 Lower Body Dressing (QC): 5 On/Off Footwear (QC): 5 Toileting Hygiene (QC): 6 Toilet Transfer (QC): 6 Assessment/Plan Assessment and Plan Assess & Plan/Chief Complaint Assessment: Debility s/p critical illness and VDRF in March 2020 Iliostomy s/p takedown with wound dehiscence and s/p revision with wound vac in place 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 Anasarca hx Hirsutism Poor albumin level improved h/o Ascites s/p paracentesis just bloody serous NGTD Anemia s/p transfusions 2 units 03/17/20 Situational depression Plan: IRF protocol Continue treatment plan Appreciate Surgery management 07/07/20: Monitor white count now 13 down from 16 Watery diarrhea monitoring Butt paste as needed Pain medication as needed 07/08/20: Continue changing wound vac Pain medication before wound vac change Continue strengthening from physical therapy Encourage good nutrition 07/09/20: Continue wound vac changes Bowels still loose Supportive care 07/10/20: Maintain wound vac change Monday, Monday, and Monday Good healing Bowels are still a little bit loose Continue aggressive treatment 07/11/20: Surgery to decide about abx since IV went bad Increase PO nutrition (1) Debility (2) Evisceration of bowel Status: Acute (3) Surgical wound dehiscence Status: Acute (4) Hypertensive emergency Status: Acute (5) Hypertension Status: Chronic (6) Hyperlipidemia Status: Chronic (7) Coronary artery disease Status: Chronic (8) Abdominal pain Status: Acute (9) Anasarca (10) Anemia (11) Hirsutism (12) Leukocytosis SESAR BEEBE DO Jul 11, 2020 06:53
[2020-07-11] MEDS: meTOprolol SUCCINATE 100 MG (TOPROL XL) TAB PO SCH (08:54)
[2020-07-11] MEDS: polyethylene glycoL POWDER 17 GM (MIRALAX) PACK PO SCH ×2 (08:58→19:38)
[2020-07-11] MEDS: HYDROcodone/APAP 5 MG/325 MG (LORTAB) TAB PO PRN ×2 (08:58→18:13)
[2020-07-11] MEDS: SENNA W/DOCUSATE (SENOKOT S) TABLET PO SCH ×2 (08:58→19:39)
[2020-07-11] MEDS: DOCUSATE SODIUM 100 MG (COLACE) CAP PO SCH ×2 (08:58→19:38)
--- NOTE | 2020-07-11 09:19 | Physical Therapy Daily Note ---
PT Daily Note-Current Subjective Pt sitting in recliner upon arrival. Pt agrees to PT but asks to use restroom. Pain Location: No Pain Reported Mental Status Patient Orientation: Person, Place, Time, Situation Attachments: Other-See Comments (Wound Vac. ) Transfers SCALE: Activities may be completed with or without assistive devices. 4-Evfhgbcsoo-mbgmmll completes the activity by him/herself with no assistance from a helper. 5-Set-up or Clean-up Assistance-helper sets up or cleans up; patient completes activity. [place] assists only prior to or following the activity. 4-Supervision or Touching Assistance-helper provides verbal cues and/or touching/steadying and/or contact guard assistance as patient completes activity. Assistance may be provided throughout the activity or intermittently. 3-Partial/Moderate Assistance-helper does LESS THAN HALF the effort. [place] lifts, holds or supports trunk or limbs, but provides less than half the effort. 2-Substantial/Maximal Assistance-helper does MORE THAN HALF the effort. [place] lifts or holds trunk or limbs and provides more than half the effort. 7-Hgiwlkcfw-haqant does ALL the effort. Patient does none of the effort to complete the activity. Or, the assistance of 2 or more helpers is required for the patient to complete the activity. If activity was not attempted, code reason: 7-Patient Refused. 9-Not Applicable-not attempted and the patient did not perform the activity before the current illness, exacerbation or injury. 10-Not Attempted due to Environmental Limitations-(lack of equipment, weather restraints, etc.). 88-Not Attempted due to Medical Conditions or Safety Concerns. Sit to Stand (QC): 5 Toilet Transfer (QC): 5 Weight Bearing Right Lower Extremity: Right Weight Bearing/Tolerated Left Lower Extremity: Left Weight Bearing/Tolerated Gait Training Does the Patient Walk?: Yes Distance: 200' Walk 10 feet (QC): 5 Walk 50 ft with 2 Turns(QC): 5 Walk 150 ft (QC): 5 Gait Persons Needed: 1 Gait Assistive Device: FWW Wheelchair Training Does the Pt Use a Wheelchair?: No Exercises NuStep Minutes: 15 NuStep Workload: 5 Treatments Pt transfers to standing then uses restroom before leaving for tx. Pt amb. in hallway as well as uses NuStep for 15m at 5. Pt amb. back to room at end of tx. Pt resting in recliner with all needs met, call light in hand. Assessment Current Status: Good Progress Pt tolerates tx well, gaining strength and activity tolerance with tx. PT Short Term Goals Short Term Goals Time Frame: Jul 11, 2020 Sit to lyin Lying to sitting on side of be: 4 Sit to stand: 5 Walk 150 feet: 4 4 steps: 4 PT Pattern Stamper Goals Usp Goals PT Usp Goals Time Frame: Jul 22, 2020 Roll Left & Right (QC): 6 Sit to Lying (QC): 6 Lying-Sitting on Side/Bed(QC): 6 Sit to Stand (QC): 6 Chair/Pzm-ek-Pzfko Xfer(QC): 6 Toilet Transfer (QC): 6 Car Transfer (QC): 6 Does the Patient Walk: Yes Walk 10 feet (QC): 6 Walk 50ft with 2 Turns (QC): 6 Walk 150 ft (QC): 6 Walking 10ft on Uneven Surface: 6 1 Step (curb) (QC): 6 4 Steps (QC): 6 12 Steps (QC): 4 Picking up an Object (QC): 4 Wheel 50 feet with 2 turns (QC: 9 Wheel 150 feet: 9 PT Plan Problem List Problem List: Activity Tolerance Treatment/Plan Treatment Plan: Continue Plan of Care Treatment Plan: Bed Mobility, Education, Functional Activity Fern, Functional Strength, Group Therapy, Gait, Safety, Therapeutic Exercise, Transfers Treatment Duration: Jul 22, 2020 Frequency: At least 5 of 7 days/Wk (IRF) Estimated Hrs Per Day: 1.5 hours per day Patient and/or Family Agrees t: Yes Safety Risks/Education Patient Education: Gait Training, Correct Positioning, Safety Issues Teaching Recipient: Patient Teaching Methods: Discussion Response to Teaching: Verbalize Understanding Time/GCodes Time In: 805 Time Out: 840 Total Billed Treatment Time: 35 Total Billed Treatment 1, EX (15m) & GT (20m) PARTH TONEY STAFF ANALYST Jul 11, 2020 09:19
--- NOTE | 2020-07-11 11:01 | Progress Note - Surgery ---
KARTIK ROWLEY MED STUDENT 07/11/20 1101: Subjective Date Seen by a Provider: Jul 11, 2020 Time Seen by a Provider: 08:45 Subjective/Events-last exam Ms. Ray was seen and examined this morning. She was sitting up in her chair and had much more energy than previously. She says she is feeling a lot better and enjoying being able to eat normal food. Her incisions are not causing her too much pain but she states that they feel sore. She has been much more active since moving to rehab floor and says she has been using incentive spirometer regularly. She continues to have diarrhea but denies N/V, chest pain and shortness of breath. Objective Exam Vital Signs Date Time Temp Pulse Resp B/P (MAP) Pulse Ox O2 Delivery O2 Flow Rate FiO2 07/11/20 06:00 36.0 86 16 175/85 (115) 98 Room Air 07/10/20 21:51 Room Air 07/10/20 18:00 36.5 87 16 159/83 (108) 99 Room Air 07/10/20 16:30 35.5 83 14 134/69 (90) 95 Room Air 07/10/20 11:14 Room Air I & O 07/11/20 07:00 Intake Total 1510 ml Balance 1510 ml Capillary Refill : Less Than 3 Seconds General Appearance: No Apparent Distress, WD/WN, Chronically ill HEENT: PERRL/EOMI Respiratory: Chest Non Tender, Lungs Clear, Normal Breath Sounds, No Accessory Muscle Use, No Respiratory Distress Cardiovascular: Regular Rate, Rhythm, No Gallop, No Murmur Gastrointestinal: soft, tenderness (incisional incisions c/d/i midline with wound vac) Neurologic/Psychiatric: Alert, Oriented x3, No Motor/Sensory Deficits, Normal Mood/Affect, occupational therapy instructor II-XII Norm as Tested, Motor Weakness (generalized weakness all extremities 4/5) Skin: Normal Color, Warm/Dry Assessment/Plan Assessment/Plan Assessment/Plan s/p ex lap closure of abdomen and laparoscopic hernia repair with Phasix mesh for bowel evisceration open midline wound continue wound vac at midline change MWF Pain control diet as tolerates rehab DIONY JI DO 07/11/20 1640: Subjective Time Seen by a Provider: 14:07 Subjective/Events-last exam Pt seen and examined, states she is doing much better and feeling stronger. Review of Systems General: Fatigue Cardiovascular: No: Chest Pain, Palpitations Gastrointestinal: No: Nausea, Vomiting Objective Exam General Appearance: No Apparent Distress, Chronically ill Respiratory: Lungs Clear, Normal Breath Sounds, No Accessory Muscle Use, No Res piratory Distress Cardiovascular: Regular Rate, Rhythm, No Murmur Gastrointestinal: soft, tenderness (incisional incisions c/d/i ), other (wound VAC in place looks good) Assessment/Plan Assessment/Plan Assessment/Plan S/P Closure of abdomen after dehiscence Continue wound VAC, encourage ambulation and IS use, increased protein for recovery Supervisory-Addendum Brief Verification & Attestation Participated in pt care: history, MDM, physical Personally performed: exam, history, MDM Care discussed with: Medical Student Procedures: n/a Verification and Attestation of Medical Student E/M Service A medical student performed and documented this service. I then reviewed and verified all information documented by the medical student and made modifications to such information, when appropriate. I personally performed a physical exam, medical decision making and then discussed any differences between the notes and made revisions as necessary to create one note. Diony Ji , 07/11/20 , 16:40 KARTIK ROWLEY MED STUDENT Jul 11, 2020 11:01 DIONY JI DO Jul 11, 2020 16:40
[2020-07-11] MEDS: metroNIDAZOLE 500 MG (FLAGYL) TAB PO SCH ×2 (15:07→20:13)
[2020-07-11 16:30] VITALS: BP 169/85
[2020-07-11] MEDS: AUGMENTIN 875 MG TAB (AMOXICILLIN/CLAVULANATE) PO SCH (18:12)
[2020-07-11] MEDS: ENOXAPARIN 40 MG/0.4 ML (LOVENOX) SYR SC SCH (18:13)
[2020-07-12] MEDS: HYDROcodone/APAP 5 MG/325 MG (LORTAB) TAB PO PRN ×3 (05:06→19:42)
[2020-07-12 06:26] VITALS: BP 160/81
[2020-07-12 07:56] VITALS: BP 144/70
[2020-07-12] MEDS: AUGMENTIN 875 MG TAB (AMOXICILLIN/CLAVULANATE) PO SCH ×2 (07:59→17:56)
[2020-07-12] MEDS: metroNIDAZOLE 500 MG (FLAGYL) TAB PO SCH ×3 (08:00→19:42)
[2020-07-12] MEDS: meTOprolol SUCCINATE 100 MG (TOPROL XL) TAB PO SCH (08:00)
[2020-07-12] MEDS: polyethylene glycoL POWDER 17 GM (MIRALAX) PACK PO SCH ×2 (08:01→19:30)
[2020-07-12] MEDS: DOCUSATE SODIUM 100 MG (COLACE) CAP PO SCH ×2 (08:01→19:30)
[2020-07-12] MEDS: SENNA W/DOCUSATE (SENOKOT S) TABLET PO SCH ×2 (08:01→19:30)
--- NOTE | 2020-07-12 08:50 | Progress Note - Surgery ---
KARTIK ROWLEY MED STUDENT 07/12/20 0850: Subjective Date Seen by a Provider: Jul 12, 2020 Time Seen by a Provider: 08:30 Subjective/Events-last exam Ms. Ray was doing well this morning when examined. She continues to feel better each day and has been active with therapy and uses her incentive spirometer regularly. She is eating well and tolerating current diet- had a cheeseburger last night. She says her abdominal incisions are sore but not painful unless they are changing her wound vac. She is having regular bowel movements. They are loose but she states that this is normal for her as she has chronic diarrhea. She denies N/V, chest pain, shortness of breath, fever and chills. Objective Exam Vital Signs Date Time Temp Pulse Resp B/P (MAP) Pulse Ox O2 Delivery O2 Flow Rate FiO2 07/12/20 07:56 82 144/70 (94) 07/12/20 06:26 36.5 83 20 160/81 (107) 96 Room Air 07/11/20 22:27 97 Room Air 07/11/20 20:20 Room Air 07/11/20 16:30 35.8 87 14 169/85 (113) 99 Room Air 07/11/20 09:00 Room Air I & O 07/12/20 07:00 Intake Total 2390 ml Balance 2390 ml Capillary Refill : Less Than 3 Seconds General Appearance: No Apparent Distress, WD/WN, Chronically ill HEENT: PERRL/EOMI Respiratory: Chest Non Tender, Lungs Clear, Normal Breath Sounds, No Accessory Muscle Use, No Respiratory Distress Cardiovascular: Regular Rate, Rhythm, No Gallop, No Murmur Gastrointestinal: soft, tenderness (incisional incisions c/d/i ), other (wound VAC in place looks good) Neurologic/Psychiatric: Alert, Oriented x3, No Motor/Sensory Deficits, Normal Mood/Affect, Motor Weakness (generalized weakness all extremities 4/5) Skin: Normal Color, Warm/Dry Assessment/Plan Assessment/Plan Assessment/Plan S/P Closure of abdomen after dehiscence Continue wound VAC, encourage ambulation and IS use, increased protein for recovery DIONY JI DO 07/12/20 1214: Subjective Time Seen by a Provider: 10:16 Subjective/Events-last exam Pt seen and examined, no complaints. Review of Systems Pulmonary: No Dyspnea, No Cough Cardiovascular: No: Chest Pain, Palpitations Gastrointestinal: No: Nausea, Vomiting Objective Exam General Appearance: No Apparent Distress Respiratory: Lungs Clear, Normal Breath Sounds, No Accessory Muscle Use Gastrointestinal: soft, tenderness (incisional incisions c/d/i ), other (wound VAC in place looks good) Assessment/Plan Assessment/Plan Assessment/Plan Continue wound VAC Supervisory-Addendum Brief Verification & Attestation Participated in pt care: history, MDM, physical Personally performed: exam, history, MDM Care discussed with: Medical Student Procedures: n/a Verification and Attestation of Medical Student E/M Service A medical student performed and documented this service. I then reviewed and verified all information documented by the medical student and made modifications to such information, when appropriate. I personally performed a physical exam, medical decision making and then discussed any differences between the notes and made revisions as necessary to create one note. Diony Ji , 07/12/20 , 12:14 KARTIK ROWLEY MED STUDENT Jul 12, 2020 08:50 DIONY JI DO Jul 12, 2020 12:14
--- NOTE | 2020-07-12 11:24 | PM&R Progress Note ---
Subjective HPI/CC On Admission Date Seen by Provider: Jul 12, 2020 Time Seen by Provider: 12:15 Subjective/Events-last exam 07/12/20: Patient feels good Regular diet tolerated No pain is reported except when wound vac changed Labs due tomorrow 07/11/20: Patient doing well Regular diet tolerated well Wound vac MWF Abx will be changed to PO since IV went bad and can't replace due to poor access 07/10/20: Changed wound vac and that will be done Monday, Monday and Monday Good healing Bowels are loose but that is a chronic issue Participating in therapy 07/09/20: Pt reports abdominal pain where the wound vac is Bowels are still loose and watery Overall feels like she is doing pretty good otherwise Chronic debility is improving 07/08/20: Needs pain medication before wound vac change Overall feels pretty good Eating and drinking well Overall progressing nicely 07/07/20: WBC 13.4 down from 16 Watery diarrhea Buttpaste ordered for ramos-area Lortab taken this morning Checked meds and labs Reviewed therapy notes Conferred with network systems administrator of Systems General: Fatigue, Malaise Gastrointestinal: Abdominal Pain Objective Exam Vital Signs Vital Signs Date Time Temp Pulse Resp B/P (MAP) Pulse Ox O2 Delivery O2 Flow Rate FiO2 07/12/20 17:53 35.4 77 18 161/78 (105) 99 Room Air 07/09/20 14:02 21 Capillary Refill : Less Than 3 Seconds General Appearance: No Apparent Distress, WD/WN, Chronically ill HEENT: PERRL/EOMI Neck: Full Range of Motion, Normal Inspection, Non Tender, Supple Respiratory: Chest Non Tender, Lungs Clear, Normal Breath Sounds, No Accessory Muscle Use, No Respiratory Distress Cardiovascular: Regular Rate, Rhythm, No Gallop, No Murmur Gastrointestinal: Normal Bowel Sounds, No Organomegaly, No Pulsatile Mass, Soft, Tenderness, Other (wound vac in place) Back: Normal Inspection, No CVA Tenderness, No Vertebral Tenderness Neurologic/Psychiatric: Alert, Oriented x3, No Motor/Sensory Deficits, Normal Mood/Affect, Motor Weakness (generalized weakness all extremities 4/5) Skin: Normal Color, Warm/Dry Results/Procedures Lab Patient resulted labs reviewed. FIM Transfers Therapy Code Descriptions/Definitions Functional [place] Measure: 0=Not Assessed/NA 4=Minimal Assistance 1=Total Assistance 5=Supervision or Setup 2=Maximal Assistance 6=Modified [place] 3=Moderate Assistance 7=Complete IndependenceSCALE: Activities may be completed with or without assistive devices. 4-Ilhctqvjwi-qnnjzok completes the activity by him/herself with no assistance f rom a helper. 5-Set-up or Clean-up Assistance-helper sets up or cleans up; patient completes activity. [place] assists only prior to or following the activity. 4-Supervision or Touching Assistance-helper provides verbal cues and/or touching/steadying and/or contact guard assistance as patient completes activity. Assistance may be provided throughout the activity or intermittently. 3-Partial/Moderate Assistance-helper does LESS THAN HALF the effort. [place] lifts, holds or supports trunk or limbs, but provides less than half the effort. 2-Substantial/Maximal Assistance-helper does MORE THAN HALF the effort. [place] lifts or holds trunk or limbs and provides more than half the effort. 6-Wmxtnomnm-wooytq does ALL the effort. Patient does none of the effort to complete the activity. Or, the assistance of 2 or more helpers is required for the patient to complete the activity. If activity was not attempted, code reason: 7-Patient Refused. 9-Not Applicable-not attempted and the patient did not perform the activity before the current illness, exacerbation or injury. 10-Not Attempted due to Environmental Limitations-(lack of equipment, weather restraints, etc.). 88-Not Attempted due to Medical Conditions or Safety Concerns. Roll Left to Right (QC): 6 Sit to Lying (QC): 6 Sit to Stand (QC): 5 Chair/Obh-ok-Umlzi Xfer(QC): 6 Car Transfer (QC): 4 Gait Training Does the Patient Walk?: Yes Distance: 200' Walk 10 feet (QC): 5 Walk 50 ft with 2 Turns(QC): 5 Walk 150 ft (QC): 5 Walking 10ft/uneven surface-QC: 0 (will assess at follow up visit) Gait Persons Needed: 1 Gait Assistive Device: FWW Wheelchair Training Does the Pt Use a Wheelchair?: No Wheel 50 ft with 2 turns (QC): 9 Wheel 150 ft (QC): 9 Stair Training Stair Training: Handrails/: uses walker #of Steps: 1 1 Step (curb) (QC): 4 4 Steps (QC): 0 12 Steps (QC): 88 Balance Picking up an Object (QC): 88 ADL-Treatment Eating (QC): 6 (Pt reports having no difficulty eating lunch) Oral Hygiene (QC): 6 Shower/Bathe Self (QC): 6 Upper Body Dressing (QC): 5 Lower Body Dressing (QC): 5 On/Off Footwear (QC): 5 Toileting Hygiene (QC): 6 Toilet Transfer (QC): 6 Assessment/Plan Assessment and Plan Assess & Plan/Chief Complaint Assessment: Debility s/p critical illness and VDRF in March 2020 Iliostomy s/p takedown with wound dehiscence and s/p revision with wound vac in place 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 Anasarca hx Hirsutism Poor albumin level improved h/o Ascites s/p paracentesis just bloody serous NGTD Anemia s/p transfusions 2 units 03/17/20 Situational depression Plan: IRF protocol Continue treatment plan Appreciate Surgery management 07/07/20: Monitor white count now 13 down from 16 Watery diarrhea monitoring Butt paste as needed Pain medication as needed 07/08/20: Continue changing wound vac Pain medication before wound vac change Continue strengthening from physical therapy Encourage good nutrition 07/09/20: Continue wound vac changes Bowels still loose Supportive care 07/10/20: Maintain wound vac change Monday, Monday, and Monday Good healing Bowels are still a little bit loose Continue aggressive treatment 07/11/20: Surgery to decide about abx since IV went bad Increase PO nutrition 07/12/20: Monitor nutrition Monitor labs Wound vac changed MWF (1) Debility (2) Evisceration of bowel Status: Acute (3) Surgical wound dehiscence Status: Acute (4) Hypertensive emergency Status: Acute (5) Hypertension Status: Chronic (6) Hyperlipidemia Status: Chronic (7) Coronary artery disease Status: Chronic (8) Abdominal pain Status: Acute (9) Anasarca (10) Anemia (11) Hirsutism (12) Leukocytosis SESAR BEEBE DO Jul 12, 2020 11:24
--- NOTE | 2020-07-12 16:10 | NUR ---
PT IS UP IN CHAIR. PT DENIES ANY RESPIRATORY DISTRESS. Addendum: 07/12/20 at 1611 by BRIANNA HDZ RT Amended: Links added.
[2020-07-12 17:53] VITALS: BP 161/78
[2020-07-12] MEDS: ENOXAPARIN 40 MG/0.4 ML (LOVENOX) SYR SC SCH (17:57)
[2020-07-13] MEDS: HYDROcodone/APAP 5 MG/325 MG (LORTAB) TAB PO PRN ×3 (02:32→15:27)
[2020-07-13 05:04] VITALS: BP 168/80
[2020-07-13 06:01] LABS: BASOPHILS % (AUTO) 0 % (0-10); EOSINOPHILS # (AUTO) 0.2 10^3/uL (0.0-0.3); EOSINOPHILS % (AUTO) 2 % (0-10); HEMATOCRIT 25 % (35-52); HEMOGLOBIN 8.2 G/DL (11.5-16.0); LYMPHOCYTES # (AUTO) 0.9 X 10^3 (1.0-4.0); LYMPHOCYTES % (AUTO) 13 % (12-44); MEAN CORPUSCULAR HEMOGLOBIN 27 PG (25-34); MEAN CORPUSCULAR HGB CONC 32 G/DL (32-36); MEAN CORPUSCULAR VOLUME 83 FL (80-99); MEAN PLATELET VOLUME 8.3 FL (7.4-10.4); MONOCYTES # (AUTO) 0.6 X 10^3 (0.0-1.0); MONOCYTES % (AUTO) 9 % (0-12); NEUTROPHILS # (AUTO) 4.9 X 10^3 (1.8-7.8); NEUTROPHILS % (AUTO) 75 % (42-75); PLATELET COUNT 341 10^3/uL (130-400); WHITE BLOOD COUNT 6.5 10^3/uL (4.3-11.0)
[2020-07-13 06:22] LABS: ALANINE AMINOTRANSFERASE 6 U/L (0-55); ALBUMIN 2.4 GM/DL (3.2-4.5); ALKALINE PHOSPHATASE 105 U/L (40-136); BILIRUBIN,TOTAL 0.2 MG/DL (0.1-1.0); BUN/CREATININE RATIO 14; CARBON DIOXIDE 24 MMOL/L (21-32); CHLORIDE 108 MMOL/L (98-107); CREATININE SERUM 0.59 MG/DL (0.60-1.30); GFR ESTIMATED > 60; GLUCOSE 99 MG/DL (70-105); POTASSIUM 3.5 MMOL/L (3.6-5.0); SODIUM 139 MMOL/L (135-145); TOTAL PROTEIN 5.4 GM/DL (6.4-8.2)
[2020-07-13] MEDS: metroNIDAZOLE 500 MG (FLAGYL) TAB PO SCH ×3 (09:14→20:23)
[2020-07-13] MEDS: AUGMENTIN 875 MG TAB (AMOXICILLIN/CLAVULANATE) PO SCH ×2 (09:14→18:26)
[2020-07-13] MEDS: SENNA W/DOCUSATE (SENOKOT S) TABLET PO SCH (09:14)
[2020-07-13] MEDS: DOCUSATE SODIUM 100 MG (COLACE) CAP PO SCH (09:14)
[2020-07-13] MEDS: meTOprolol SUCCINATE 100 MG (TOPROL XL) TAB PO SCH (09:14)
[2020-07-13] MEDS: polyethylene glycoL POWDER 17 GM (MIRALAX) PACK PO SCH (09:14)
--- NOTE | 2020-07-13 09:30 | NUR ---
PATIENT C/O CONSISTENT DIARRHEA, WOULD LIKE TO STOP TAKING SCHEDULED DOSES OF STOOL SOFTENERS. DR NOTIFIED, ORDERS REC'D TO STOP SCHEDULED STOOL SOFTENERS, KEEP PRN ORDERS FOR SOFTENERS AT THIS TIME.
--- NOTE | 2020-07-13 10:55 | Physical Therapy Daily Note ---
PT Daily Note-Current Subjective Patient in recliner pre tx, agrees to PT, no complaints of pain. Appearance Patient in recliner post tx with nurse call, phone, tray, all needs met. Mental Status Patient Orientation: Normal For Age wound vac Transfers SCALE: Activities may be completed with or without assistive devices. 1-Invhmimahp-rwnglea completes the activity by him/herself with no assistance from a helper. 5-Set-up or Clean-up Assistance-helper sets up or cleans up; patient completes activity. [place] assists only prior to or following the activity. 4-Supervision or Touching Assistance-helper provides verbal cues and/or touchin g/steadying and/or contact guard assistance as patient completes activity. Assistance may be provided throughout the activity or intermittently. 3-Partial/Moderate Assistance-helper does LESS THAN HALF the effort. [place] lifts, holds or supports trunk or limbs, but provides less than half the effort. 2-Substantial/Maximal Assistance-helper does MORE THAN HALF the effort. [place] lifts or holds trunk or limbs and provides more than half the effort. 7-Asbsynihp-jeyujt does ALL the effort. Patient does none of the effort to complete the activity. Or, the assistance of 2 or more helpers is required for the patient to complete the activity. If activity was not attempted, code reason: 7-Patient Refused. 9-Not Applicable-not attempted and the patient did not perform the activity before the current illness, exacerbation or injury. 10-Not Attempted due to Environmental Limitations-(lack of equipment, weather restraints, etc.). 88-Not Attempted due to Medical Conditions or Safety Concerns. Sit to Stand (QC): 6 Chair/Ifm-jv-Rytgy Xfer(QC): 6 Weight Bearing Right Lower Extremity: Right Weight Bearing/Tolerated Left Lower Extremity: Left Weight Bearing/Tolerated Gait Training Distance: 400'x2 Walk 10 feet (QC): 6 Walk 50 ft with 2 Turns(QC): 6 Walk 150 ft (QC): 6 Gait Assistive Device: FWW Patient would be able to ambulate on her own if she didn't need someone to carry her wound vac Exercises LAQ alternating for 5 min with 2# ankle weights NuStep Minutes: 15 NuStep Workload: 5 Treatments transfers, ambulation, functional strengthening Assessment Current Status: Fair Progress strength and endurance PT Short Term Goals Short Term Goals Time Frame: Jul 11, 2020 Sit to lyin Lying to sitting on side of be: 4 Sit to stand: 5 Walk 150 feet: 4 4 steps: 4 PT Snf Goals Door Frame Builder Goals PT Door Frame Builder Goals Time Frame: Jul 22, 2020 Roll Left & Right (QC): 6 Sit to Lying (QC): 6 Lying-Sitting on Side/Bed(QC): 6 Sit to Stand (QC): 6 Chair/Udg-uu-Flvqw Xfer(QC): 6 Toilet Transfer (QC): 6 Car Transfer (QC): 6 Does the Patient Walk: Yes Walk 10 feet (QC): 6 Walk 50ft with 2 Turns (QC): 6 Walk 150 ft (QC): 6 Walking 10ft on Uneven Surface: 6 1 Step (curb) (QC): 6 4 Steps (QC): 6 12 Steps (QC): 4 Picking up an Object (QC): 4 Wheel 50 feet with 2 turns (QC: 9 Wheel 150 feet: 9 PT Plan Problem List Problem List: Activity Tolerance, Functional Strength, Safety, Balance, Gait, Transfer Treatment/Plan Treatment Plan: Continue Plan of Care Treatment Plan: Bed Mobility, Education, Functional Activity Fern, Functional Strength, Group Therapy, Gait, Safety, Therapeutic Exercise, Transfers Treatment Duration: Jul 22, 2020 Frequency: At least 5 of 7 days/Wk (IRF) Estimated Hrs Per Day: 1.5 hours per day Patient and/or Family Agrees t: Yes Safety Risks/Education Patient Education: Gait Training, Transfer Techniques, Correct Positioning, Safety Issues Teaching Recipient: Patient Teaching Methods: Demonstration, Discussion Response to Teaching: Reinforcement Needed Time/GCodes Time In: 1015 Time Out: 1100 Total Billed Treatment Time: 45 Total Billed Treatment 1 visit EX 20' FA 25' KEI CRUZ PT Jul 13, 2020 10:55
--- NOTE | 2020-07-13 11:06 | Progress Note ---
MARY ELLEN TAYLOR MED STUDENT 07/13/20 1106: Progress Note 55 yo F presents post op for bowel evisceration. Therapy progression pt stated that therapy has been going very well for her. pt stated that she is walking much better than before pt stated that pain is only associated with wound vac changes Goals pt stated that she wanted to learn as much as she could before getting discharged other goal stated was to get as healthy and healed up as possible pt stated that she is extremely grateful for rehabilitation and wants to work on as much as she possibly can ANALI HACKETT DO 07/13/202034: Supervisory-Addendum Brief Verification & Attestation Participated in pt care: history, MDM, physical Personally performed: exam, history, MDM, supervision of care Care discussed with: Medical Student Procedures: n/a Results interpretation: Verified all documentation Verification and Attestation of Medical Student E/M Service A medical student performed and documented this service in my presence. I reviewed and verified all information documented by the medical student and made modifications to such information, when appropriate. I personally performed the physical exam and medical decision making. Anali Hackett, Jul 13, 2020,20:35 MARY ELLEN TAYLOR MED STUDENT Jul 13, 2020 11:06 ANALI HACKETT DO Jul 13, 2020 20:35
--- NOTE | 2020-07-13 11:33 | PM&R Progress Note ---
Subjective HPI/CC On Admission Date Seen by Provider: Jul 13, 2020 Time Seen by Provider: 10:00 Subjective/Events-last exam 07/13/20: Hgb stable at 8.2, potassium 3.5 Redness around sutures will inquire with Dr. Cardona about removing them No picc line will be needed since we will shift to oral pain medication an hour before the wound vac change Lisinopril will be added for elevated BP 07/12/20: Patient feels good Regular diet tolerated No pain is reported except when wound vac changed Labs due tomorrow 07/11/20: Patient doing well Regular diet tolerated well Wound vac MWF Abx will be changed to PO since IV went bad and can't replace due to poor access 07/10/20: Changed wound vac and that will be done Monday, Monday and Monday Good healing Bowels are loose but that is a chronic issue Participating in therapy 07/09/20: Pt reports abdominal pain where the wound vac is Bowels are still loose and watery Overall feels like she is doing pretty good otherwise Chronic debility is improving 07/08/20: Needs pain medication before wound vac change Overall feels pretty good Eating and drinking well Overall progressing nicely 07/07/20: WBC 13.4 down from 16 Watery diarrhea Buttpaste ordered for [place]amos-area Lortab taken this morning Checked meds and labs Reviewed therapy notes Conferred with check cashier of Systems General: Fatigue, Malaise Neurological: Weakness Objective Exam Vital Signs Vital Signs Date Time Temp Pulse Resp B/P (MAP) Pulse Ox O2 Delivery O2 Flow Rate FiO2 07/13/20 17:34 36.3 85 18 166/89 (114) 99 Room Air 07/09/20 14:02 21 Capillary Refill : Less Than 3 Seconds General Appearance: No Apparent Distress, WD/WN, Chronically ill HEENT: PERRL/EOMI Neck: Full Range of Motion, Normal Inspection, Non Tender, Supple Respiratory: Chest Non Tender, Lungs Clear, Normal Breath Sounds, No Accessory Muscle Use, No Respiratory Distress Cardiovascular: Regular Rate, Rhythm, No Gallop, No Murmur Gastrointestinal: Normal Bowel Sounds, No Organomegaly, No Pulsatile Mass, Soft, Tenderness, Other (wound vac in place) Back: Normal Inspection, No CVA Tenderness, No Vertebral Tenderness Neurologic/Psychiatric: Alert, Oriented x3, No Motor/Sensory Deficits, Normal Mood/Affect, Motor Weakness (generalized weakness all extremities 4/5) Skin: Normal Color, Warm/Dry Results/Procedures Lab Laboratory Tests 07/13/20 05:52 Patient resulted labs reviewed. FIM Transfers Therapy Code Descriptions/Definitions Functional [place] Measure: 0=Not Assessed/NA 4=Minimal Assistance 1=Total Assistance 5=Supervision or Setup 2=Maximal Assistance 6=Modified [place] 3=Moderate Assistance 7=Complete IndependenceSCALE: Activities may be completed with or without assistive devices. 0-Hlfbzlwdii-ufektip completes the activity by him/herself with no assistance from a helper. 5-Set-up or Clean-up Assistance-helper sets up or cleans up; patient completes activity. [place] assists only prior to or following the activity. 4-Supervision or Touching Assistance-helper provides verbal cues and/or t ouching/steadying and/or contact guard assistance as patient completes activity. Assistance may be provided throughout the activity or intermittently. 3-Partial/Moderate Assistance-helper does LESS THAN HALF the effort. [place] lifts, holds or supports trunk or limbs, but provides less than half the effort. 2-Substantial/Maximal Assistance-helper does MORE THAN HALF the effort. [place] lifts or holds trunk or limbs and provides more than half the effort. 6-Syacralax-nullhf does ALL the effort. Patient does none of the effort to complete the activity. Or, the assistance of 2 or more helpers is required for the patient to complete the activity. If activity was not attempted, code reason: 7-Patient Refused. 9-Not Applicable-not attempted and the patient did not perform the activity before the current illness, exacerbation or injury. 10-Not Attempted due to Environmental Limitations-(lack of equipment, weather restraints, etc.). 88-Not Attempted due to Medical Conditions or Safety Concerns. Roll Left to Right (QC): 6 Sit to Lying (QC): 6 Sit to Stand (QC): 6 Chair/Nll-we-Pntxt Xfer(QC): 6 Car Transfer (QC): 4 Gait Training Does the Patient Walk?: Yes Distance: 400'x2 Walk 10 feet (QC): 6 Walk 50 ft with 2 Turns(QC): 6 Walk 150 ft (QC): 6 Walking 10ft/uneven surface-QC: 0 (will assess at follow up visit) Gait Persons Needed: 1 Gait Assistive Device: FWW Wheelchair Training Does the Pt Use a Wheelchair?: No Wheel 50 ft with 2 turns (QC): 9 Wheel 150 ft (QC): 9 Stair Training Stair Training: Handrails/: uses walker #of Steps: 1 1 Step (curb) (QC): 4 4 Steps (QC): 0 12 Steps (QC): 88 Balance Picking up an Object (QC): 88 ADL-Treatment Eating (QC): 6 (Pt reports having no difficulty eating lunch) Oral Hygiene (QC): 6 Shower/Bathe Self (QC): 6 Upper Body Dressing (QC): 5 Lower Body Dressing (QC): 5 On/Off Footwear (QC): 5 Toileting Hygiene (QC): 6 Toilet Transfer (QC): 6 Assessment/Plan Assessment and Plan Assess & Plan/Chief Complaint Assessment: Debility s/p critical illness and VDRF in March 2020 Iliostomy s/p takedown with wound dehiscence and s/p revision with wound vac in place 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 Anasarca hx Hirsutism Poor albumin level improved h/o Ascites s/p paracentesis just bloody serous NGTD Anemia s/p transfusions 2 units 03/17/20 Situational depression Plan: IRF protocol Continue treatment plan Appreciate Surgery management 07/07/20: Monitor white count now 13 down from 16 Watery diarrhea monitoring Butt paste as needed Pain medication as needed 07/08/20: Continue changing wound vac Pain medication before wound vac change Continue strengthening from physical therapy Encourage good nutrition 07/09/20: Continue wound vac changes Bowels still loose Supportive care 07/10/20: Maintain wound vac change Monday, Monday, and Monday Good healing Bowels are still a little bit loose Continue aggressive treatment 07/11/20: Surgery to decide about abx since IV went bad Increase PO nutrition 07/12/20: Monitor nutrition Monitor labs Wound vac changed MWF 07/13/20: Inquire with Dr. Cardona regarding redness around sutures trolley car overhauler to pill form of pain medication before wound vac Restart Lisinopril as she takes at home (1) Debility (2) Evisceration of bowel Status: Acute (3) Surgical wound dehiscence Status: Acute (4) Hypertensive emergency Status: Acute (5) Hypertension Status: Chronic (6) Hyperlipidemia Status: Chronic (7) Coronary artery disease Status: Chronic (8) Abdominal pain Status: Acute (9) Anasarca (10) Anemia (11) Hirsutism (12) Leukocytosis SESAR BEEBE DO Jul 13, 2020 11:33
--- NOTE | 2020-07-13 12:04 | Occupational Ther Daily Note ---
OT Current Status-Daily Note Subjective Pt in reclining chair with no c/o pain and agreeable to therapy this am. Mental Status/Objective Patient Orientation: Person, Place, Time, Situation Attachments: Drains, IV ADL-Treatment Therapy Code Descriptions/Definitions Functional [place] Measure: 0=Not Assessed/NA 4=Minimal Assistance 1=Total Assistance 5=Supervision or Setup 2=Maximal Assistance 6=Modified [place] 3=Moderate Assistance 7=Complete IndependenceSCALE: Activities may be completed with or without assistive devices. 7-Ktphyjrnji-lnfssbc completes the activity by him/herself with no assistance from a helper. 5-Set-up or Clean-up Assistance-helper sets up or cleans up; patient completes activity. [place] assists only prior to or following the activity. 4-Supervision or Touching Assistance-helper provides verbal cues and/or touching/steadying and/or contact guard assistance as patient completes activity. Assistance may be provided throughout the activity or intermittently. 3-Partial/Moderate Assistance-helper does LESS THAN HALF the effort. [place] lifts, holds or supports trunk or limbs, but provides less than half the effort. 2-Substantial/Maximal Assistance-helper does MORE THAN HALF the effort. [place] lifts or holds trunk or limbs and provides more than half the effort. 3-Ealsnrzdx-vtdaqn does ALL the effort. Patient does none of the effort to complete the activity. Or, the assistance of 2 or more helpers is required for the patient to complete the activity. If activity was not attempted, code reason: 7-Patient Refused. 9-Not Applicable-not attempted and the patient did not perform the activity before the current illness, exacerbation or injury. 10-Not Attempted due to Environmental Limitations-(lack of equipment, weather restraints, etc.). 88-Not Attempted due to Medical Conditions or Safety Concerns. Oral Hygiene (QC): 5 Shower/Bathe Self (QC): 5 Upper Body Dressing (QC): 5 Lower Body Dressing (QC): 5 On/Off Footwear: 5 Toileting Hygiene (QC): 6 Toilet Transfer (QC): 3 (For wound vac) Pt agreeable to sponge bath at sink this am. She transferred to toilet with walker requiring min A to move wound vac. Pt. independent with toilet hygiene. She required set up for grooming, oral hygiene, bathing and drying at the bathroom sink while seated. Pt able to don shirt, shorts, and slipper socks independently after having them handed to her. Pt. transferred back to reclining chair with walker and min A for wound vac. She was in reclining chair with call light in reach when OT left room. All needs met. Education OT Patient Education: Correct positioning, Energy conservation, Modified ADL techniques, Progress toward Goal/Update tx plan, Purpose of tx/functional activities, Reviewed precautions, Rehab process, Safety issues, Transfer techn iques Teaching Recipient: Patient Teaching Methods: Demonstration, Discussion Response to Teaching: Verbalize Understanding, Return Demonstration OT Usp Goals [place] Operator Goals Time Frame: Jul 20, 2020 Eating (QC): 6 Oral Hygiene (QC): 6 Toileting Hygiene (QC): 6 Shower/Bathe Self (QC): 6 Upper Body Dressing (QC): 6 Lower Body Dressing (QC): 6 On/Off Footwear (QC): 6 Additional Goals: 1-Demonstrate ADL Tasks, 2-Verbalize Understanding, 3- ImproveStrength/[place] 1=Demonstrate adherence to instructed precautions during ADL tasks. 2=Patient will verbalize/demonstrate understanding of assistive devices/ modifications for ADL. 3=Patient will improve strength/tolerance for activity to enable patient to perform ADL's. OT Education/Plan Problem List/Assessment Assessment: Decreased Activ Tolerance, Impaired I ADL's Discharge Recommendations Plan/Recommendations: Continue POC Treatment Plan/Plan of Care Treatment,Training & Education: Yes Patient would benefit from OT for education, treatment and training to promote independence in ADL's, mobility, safety and/or upper extremity function for ADL's. Plan of Care: ADL Retraining, Concurrent Therapy, Functional Mobility, Group Exercise/Act as Ind, UE Funct Exercise/Act Treatment Duration: Jul 20, 2020 Frequency: At least 5 of 7 days/Wk (IRF) Estimated Hrs Per Day: 1.5 hours per day Agreement: Yes Rehab Potential: Good Time/GCodes Start Time: 09:15 Stop Time: 10:15 Total Time Billed (hr/min): 60 Billed Treatment Time 1, ADL 4 (60 minutes) PAOLA MENDOZA OT Jul 13, 2020 12:04
--- NOTE | 2020-07-13 14:15 | NUR ---
ORDERS REC'D FROM DR. DE OLIVEIRA TO REMOVE BRUCE IN UPPER RIGHT, UPPER LEFT, AND LOWER LEFT ABDOMEN. LEAVE BRUCE IN RIGHT LOWER ABDOMEN UNTIL LATER THIS WEEK. PLACE STERI-STRIPS OVER UPPER RT, LEFT, AND LOWER LEFT INCISIONAL AREAS. BRUCE REMOVED USING CLEAN TECHNIQUE, INCISIONS WELL-APPROXIMATED, STERI STRIPS APPLIED. PT TOLERATES PROCEDURE WELL. WILL CON'T TO MONITOR.
--- NOTE | 2020-07-13 14:16 | Physical Therapy Daily Note ---
PT Daily Note-Current Subjective Patient in restroom pre tx, agrees to PT, uses nurse call a minute later because she is done, has 3/10 pain in abdomen. Appearance Patient in bed post tx with nurse call, phone, tray, nurse in room. Mental Status Patient Orientation: Normal For Age wound vac Transfers SCALE: Activities may be completed with or without assistive devices. 9-Habfhkrsln-dhzpyej completes the activity by him/herself with no assistance from a helper. 5-Set-up or Clean-up Assistance-helper sets up or cleans up; patient completes activity. [place] assists only prior to or following the activity. 4-Supervision or Touching Assistance-helper provides verbal cues and/or touching/steadying and/or contact guard assistance as patient completes activity. Assistance may be provided throughout the activity or intermittently. 3-Partial/Moderate Assistance-helper does LESS THAN HALF the effort. [place] lifts, holds or supports trunk or limbs, but provides less than half the effort. 2-Substantial/Maximal Assistance-helper does MORE THAN HALF the effort. [place] lifts or holds trunk or limbs and provides more than half the effort. 6-Yciwvqnpy-loebra does ALL the effort. Patient does none of the effort to complete the activity. Or, the assistance of 2 or more helpers is required for the patient to complete the activity. If activity was not attempted, code reason: 7-Patient Refused. 9-Not Applicable-not attempted and the patient did not perform the activity before the current illness, exacerbation or injury. 10-Not Attempted due to Environmental Limitations-(lack of equipment, weather restraints, etc.). 88-Not Attempted due to Medical Conditions or Safety Concerns. Roll Left & Right (QC): 6 Sit to Lying (QC): 6 Sit to Stand (QC): 6 Chair/Dgq-mb-Gtwtr Xfer(QC): 6 Weight Bearing Right Lower Extremity: Right Weight Bearing/Tolerated Left Lower Extremity: Left Weight Bearing/Tolerated Gait Training Distance: 800', 150' Walk 10 feet (QC): 6 Walk 50 ft with 2 Turns(QC): 6 Walk 150 ft (QC): 6 Gait Assistive Device: FWW Ambulated 800' with a rolling walker with independence, needs somebody to hold her wound vac. Patient also ambulated 150' with a SPC with close SBA, no LOB but some unsteadiness. Exercises Standing: Hip Abduction, Heel/toe raises, Mini squats, Step-ups Standing Reps: 20 Treatments bed mobility and transfers, ambulation, LE exercise Assessment Current Status: Fair Progress improving endurance, independent ambulation using a rolling walker (very slow but steady), SBA with ambulation using a SPC PT Short Term Goals Short Term Goals Time Frame: Jul 11, 2020 Sit to lyin Lying to sitting on side of be: 4 Sit to stand: 5 Walk 150 feet: 4 4 steps: 4 PT Occupational Physician Goals Occupational Physician Goals PT Occupational Physician Goals Time Frame: Jul 22, 2020 Roll Left & Right (QC): 6 Sit to Lying (QC): 6 Lying-Sitting on Side/Bed(QC): 6 Sit to Stand (QC): 6 Chair/Diw-dn-Lcwzp Xfer(QC): 6 Toilet Transfer (QC): 6 Car Transfer (QC): 6 Does the Patient Walk: Yes Walk 10 feet (QC): 6 Walk 50ft with 2 Turns (QC): 6 Walk 150 ft (QC): 6 Walking 10ft on Uneven Surface: 6 1 Step (curb) (QC): 6 4 Steps (QC): 6 12 Steps (QC): 4 Picking up an Object (QC): 4 Wheel 50 feet with 2 turns (QC: 9 Wheel 150 feet: 9 PT Plan Problem List Problem List: Activity Tolerance, Functional Strength, Safety, Balance, Gait, Transfer Treatment/Plan Treatment Plan: Continue Plan of Care Treatment Plan: Bed Mobility, Education, Functional Activity Fern, Functional Strength, Group Therapy, Gait, Safety, Therapeutic Exercise, Transfers Treatment Duration: Jul 22, 2020 Frequency: At least 5 of 7 days/Wk (IRF) Estimated Hrs Per Day: 1.5 hours per day Patient and/or Family Agrees t: Yes Safety Risks/Education Patient Education: Gait Training, Transfer Techniques, Correct Positioning, Safety Issues Teaching Recipient: Patient Teaching Methods: Demonstration, Discussion Response to Teaching: Reinforcement Needed Time/GCodes Time In: 1330 Time Out: 1415 Total Billed Treatment Time: 45 Total Billed Treatment 1 visit EX 15' GT 30' KEI CRUZ PT Jul 13, 2020 14:16
--- NOTE | 2020-07-13 14:30 | NUR ---
MORPHINE IV GIVEN PER MAR, PRIOR TO WOUND VAC CHANGE. PT RESTS. WILL CON'T TO MONITOR.
[2020-07-13] MEDS: morphine INJ 4 MG/ML 1 ML (VIAL/SYRINGE) IVP PRN (14:33)
--- NOTE | 2020-07-13 14:54 | Occupational Ther Daily Note ---
OT Current Status-Daily Note Subjective Pt in reclining chair when OT entered room. No c/o pain. Pt agreeable to therapy. Mental Status/Objective Patient Orientation: Person, Place, Time, Situation Attachments: Drains ADL-Treatment Therapy Code Descriptions/Definitions Functional [place] Measure: 0=Not Assessed/NA 4=Minimal Assistance 1=Total Assistance 5=Supervision or Setup 2=Maximal Assistance 6=Modified [place] 3=Moderate Assistance 7=Complete IndependenceSCALE: Activities may be completed with or without assistive devices. 9-Pgbrjzhcpi-oxmolmq completes the activity by him/herself with no assistance from a helper. 5-Set-up or Clean-up Assistance-helper sets up or cleans up; patient completes activity. [place] assists only prior to or following the activity. 4-Supervision or Touching Assistance-helper provides verbal cues and/or touching/steadying and/or contact guard assistance as patient completes activity. Assistance may be provided throughout the activity or intermittently. 3-Partial/Moderate Assistance-helper does LESS THAN HALF the effort. [place] lifts, holds or supports trunk or limbs, but provides less than half the effort. 2-Substantial/Maximal Assistance-helper does MORE THAN HALF the effort. [place] lifts or holds trunk or limbs and provides more than half the effort. 4-Dezkkqjcr-pykrlm does ALL the effort. Patient does none of the effort to complete the activity. Or, the assistance of 2 or more helpers is required for the patient to complete the activity. If activity was not attempted, code reason: 7-Patient Refused. 9-Not Applicable-not attempted and the patient did not perform the activity before the current illness, exacerbation or injury. 10-Not Attempted due to Environmental Limitations-(lack of equipment, weather restraints, etc.). 88-Not Attempted due to Medical Conditions or Safety Concerns. Other Treatment OT provided skilled education and techniques for medication management. Pt utilized phone to create a list of her daily medications and dosage to provide herself with a record, as she was unable to tell nursing of her current medications. She was very excited about this reporting that it would "help her at any appointments and pharmacy visits". Pt able to demonstrate opening and changing the list. She then ambulated to the gym with min A for wound vac. Once in the gym, she participated in a 12 minute functional activity aimed at fine motor skills and standing tolerance for ADLs. Pt returned to room with walker and min A for wound vac. She was in the restroom with PT waiting to start tx at the end of OT session. All needs met. Education OT Patient Education: Correct positioning, Energy conservation, Modified ADL techniques, Progress toward Goal/Update tx plan, Purpose of tx/functional activities, Reviewed precautions, Rehab process, Safety issues Teaching Recipient: Patient Teaching Methods: Demonstration, Discussion Response to Teaching: Verbalize Understanding, Return Demonstration OT Market Researcher Goals Market Researcher Goals Time Frame: Jul 20, 2020 Eating (QC): 6 Oral Hygiene (QC): 6 Toileting Hygiene (QC): 6 Shower/Bathe Self (QC): 6 Upper Body Dressing (QC): 6 Lower Body Dressing (QC): 6 On/Off Footwear (QC): 6 Additional Goals: 1-Demonstrate ADL Tasks, 2-Verbalize Understanding, 3-Impro veStrength/Fern 1=Demonstrate adherence to instructed precautions during ADL tasks. 2=Patient will verbalize/demonstrate understanding of assistive devices/modifications for ADL. 3=Patient will improve strength/tolerance for activity to enable patient to perform ADL's. OT Education/Plan Problem List/Assessment Assessment: Decreased Activ Tolerance, Dependent Transfers, Impaired I ADL's, Impaired Self-Care Skills Discharge Recommendations Plan/Recommendations: Continue POC Therapy Discharge Recommendati: Home & Family Treatment Plan/Plan of Care Treatment,Training & Education: Yes Patient would benefit from OT for education, treatment and training to promote independence in ADL's, mobility, safety and/or upper extremity function for ADL's. Plan of Care: ADL Retraining, Concurrent Therapy, Functional Mobility, Group Exercise/Act as Ind, UE Funct Exercise/Act Treatment Duration: Jul 20, 2020 Frequency: At least 5 of 7 days/Wk (IRF) Estimated Hrs Per Day: 1.5 hours per day Agreement: Yes Rehab Potential: Good Time/GCodes Start Time: 12:59 Stop Time: 13:29 Total Time Billed (hr/min): 30 Billed Treatment Time 1, ADL (15 minutes), FA (15 minutes) PAOLA MENDOZA OT Jul 13, 2020 14:54
--- NOTE | 2020-07-13 15:15 | NUR ---
1 TAB PAIN MED GIVEN PO PER PT REQUEST, WOUND VAC IS CHANGED. GIVEN. SEE WOUND VAC ASSESSMENT FOR UPDATES. PATIENT TOLERATES PROCEDURE WELL. WILL CON'T TO MONITOR.
[2020-07-13 17:34] VITALS: BP 166/89
[2020-07-13] MEDS: ENOXAPARIN 40 MG/0.4 ML (LOVENOX) SYR SC SCH (18:27)
[2020-07-13] MEDS: lisINopril 20 MG (PRINIVIL) TABLET PO SCH (20:24)
[2020-07-14] MEDS: HYDROcodone/APAP 5 MG/325 MG (LORTAB) TAB PO PRN ×3 (01:43→14:28)
[2020-07-14 05:30] VITALS: BP 161/85
[2020-07-14] MEDS: AUGMENTIN 875 MG TAB (AMOXICILLIN/CLAVULANATE) PO SCH ×2 (08:35→17:02)
[2020-07-14] MEDS: lisINopril 20 MG (PRINIVIL) TABLET PO SCH ×2 (08:35→21:01)
[2020-07-14] MEDS: meTOprolol SUCCINATE 100 MG (TOPROL XL) TAB PO SCH (08:35)
[2020-07-14] MEDS: metroNIDAZOLE 500 MG (FLAGYL) TAB PO SCH ×3 (08:35→21:01)
--- NOTE | 2020-07-14 10:41 | PM&R Progress Note ---
Subjective HPI/CC On Admission Date Seen by Provider: Jul 14, 2020 Time Seen by Provider: 09:00 Subjective/Events-last exam 07/14/20: Bowels moved yesterday No major issues Wound vac changed every Monday, Monday and Monday Discharge at the end of the week hopefully 07/13/20: Hgb stable at 8.2, potassium 3.5 Redness around sutures will inquire with Dr. Cardona about removing them No picc line will be needed since we will shift to oral pain medication an hour before the wound vac change Lisinopril will be added for elevated BP 07/12/20: Patient feels good Regular diet tolerated No pain is reported except when wound vac changed Labs due tomorrow 07/11/20: Patient doing well Regular diet tolerated well Wound vac MWF Abx will be changed to PO since IV went bad and can't replace due to poor access 07/10/20: Changed wound vac and that will be done Monday, Monday and Monday Good healing Bowels are loose but that is a chronic issue Participating in therapy 07/09/20: Pt reports abdominal pain where the wound vac is Bowels are still loose and watery Overall feels like she is doing pretty good otherwise Chronic debility is improving 07/08/20: Needs pain medication before wound vac change Overall feels pretty good Eating and drinking well Overall progressing nicely 07/07/20: WBC 13.4 down from 16 Watery diarrhea Buttpaste ordered for ramos-area Lortab taken this morning Checked meds and labs Reviewed therapy notes Conferred with line walker of Systems General: Fatigue, Malaise Neurological: Weakness Objective Exam Vital Signs Vital Signs Date Time Temp Pulse Resp B/P (MAP) Pulse Ox O2 Delivery O2 Flow Rate FiO2 07/14/20 16:30 35.8 84 14 150/79 (102) 98 Room Air 07/09/20 14:02 21 Capillary Refill : Less Than 3 Seconds General Appearance: No Apparent Distress, WD/WN, Chronically ill HEENT: PERRL/EOMI Neck: Full Range of Motion, Normal Inspection, Non Tender, Supple Respiratory: Chest Non Tender, Lungs Clear, Normal Breath Sounds, No Accessory Muscle Use, No Respiratory Distress Cardiovascular: Regular Rate, Rhythm, No Gallop, No Murmur Gastrointestinal: Normal Bowel Sounds, No Organomegaly, No Pulsatile Mass, Soft, Tenderness, Other (wound vac in place) Back: Normal Inspection, No CVA Tenderness, No Vertebral Tenderness Neurologic/Psychiatric: Alert, Oriented x3, No Motor/Sensory Deficits, Normal Mood/Affect, Motor Weakness (generalized weakness all extremities 4/5) Skin: Normal Color, Warm/Dry Results/Procedures Lab Patient resulted labs reviewed. FIM Transfers Therapy Code Descriptions/Definitions Functional [place] Measure: 0=Not Assessed/NA 4=Minimal Assistance 1=Total Assistance 5=Supervision or Setup 2=Maximal Assistance 6=Modified [place] 3=Moderate Assistance 7=Complete IndependenceSCALE: Activities may be completed with or without assistive devices. 3-Dssozptkuv-ouamrec completes the activity by him/herself with no assistance from a helper. 5-Set-up or Clean-up Assistance-helper sets up or cleans up; patient completes activity. [place] assists only prior to or following the activity. 4-Supervision or Touching Assistance-helper provides verbal cues and/or touching/steadying and/or contact guard assistance as patient completes activity. Assistance may be provided throughout the activity or intermittently. 3-Partial/Moderate Assistance-helper does LESS THAN HALF the effort. [place] lifts, holds or supports trunk or limbs, but provides less than half the effort. 2-Substantial/Maximal Assistance-helper does MORE THAN HALF the effort. [place] lifts or holds trunk or limbs and provides more than half the effort. 8-Dgmycpnrm-lgeihk does ALL the effort. Patient does none of the effort to complete the activity. Or, the assistance of 2 or more helpers is required for the patient to complete the activity. If activity was not attempted, code reason: 7-Patient Refused. 9-Not Applicable-not attempted and the patient did not perform the activity before the current illness, exacerbation or injury. 10-Not Attempted due to Environmental Limitations-(lack of equipment, weather restraints, etc.). 88-Not Attempted due to Medical Conditions or Safety Concerns. Roll Left to Right (QC): 6 Sit to Lying (QC): 6 Sit to Stand (QC): 6 Chair/Rmk-tj-Dplwe Xfer(QC): 6 Car Transfer (QC): 4 Gait Training Does the Patient Walk?: Yes Distance: 800', 150' Walk 10 feet (QC): 6 Walk 50 ft with 2 Turns(QC): 6 Walk 150 ft (QC): 6 Walking 10ft/uneven surface-QC: 0 (will assess at follow up visit) Gait Persons Needed: 1 Gait Assistive Device: FWW Wheelchair Training Does the Pt Use a Wheelchair?: No Wheel 50 ft with 2 turns (QC): 9 Wheel 150 ft (QC): 9 Stair Training Stair Training: Handrails/: uses walker #of Steps: 1 1 Step (curb) (QC): 4 4 Steps (QC): 0 12 Steps (QC): 88 Balance Picking up an Object (QC): 88 ADL-Treatment Eating (QC): 6 (Pt reports having no difficulty eating lunch) Oral Hygiene (QC): 5 Shower/Bathe Self (QC): 5 Upper Body Dressing (QC): 5 Lower Body Dressing (QC): 5 On/Off Footwear (QC): 5 Toileting Hygiene (QC): 6 Toilet Transfer (QC): 3 (For wound vac) Assessment/Plan Assessment and Plan Assess & Plan/Chief Complaint Assessment: Debility s/p critical illness and VDRF in March 2020 Iliostomy s/p takedown with wound dehiscence and s/p revision with wound vac in place 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 Anasarca hx Hirsutism Poor albumin level improved h/o Ascites s/p paracentesis just bloody serous NGTD Anemia s/p transfusions 2 units 03/17/20 Situational depression Plan: IRF protocol Continue treatment plan Appreciate Surgery management 07/07/20: Monitor white count now 13 down from 16 Watery diarrhea monitoring Butt paste as needed Pain medication as needed 07/08/20: Continue changing wound vac Pain medication before wound vac change Continue strengthening from physical therapy Encourage good nutrition 07/09/20: Continue wound vac changes Bowels still loose Supportive care 07/10/20: Maintain wound vac change Monday, Monday, and Monday Good healing Bowels are still a little bit loose Continue aggressive treatment 07/11/20: Surgery to decide about abx since IV went bad Increase PO nutrition 07/12/20: Monitor nutrition Monitor labs Wound vac changed MWF 07/13/20: Inquire with Dr. Cardona regarding redness around sutures body coverer to pill form of pain medication before wound vac Restart Lisinopril as she takes at home 07/14/20: Maintain bowel regimen Wound vac change Monday, Monday, and Monday Pain control Remove IV today (1) Debility (2) Evisceration of bowel Status: Acute (3) Surgical wound dehiscence Status: Acute (4) Hypertensive emergency Status: Acute (5) Hypertension Status: Chronic (6) Hyperlipidemia Status: Chronic (7) Coronary artery disease Status: Chronic (8) Abdominal pain Status: Acute (9) Anasarca (10) Anemia (11) Hirsutism (12) Leukocytosis SESAR BEEBE DO Jul 14, 2020 10:41
--- NOTE | 2020-07-14 11:01 | Occupational Ther Daily Note ---
OT Current Status-Daily Note Subjective Pt alert, sitting at bathroom sink. Pt agrees to therapy. No c/o pain. Mental Status/Objective Patient Orientation: Person, Place, Time, Situation Attachments: Other-See Comments (wound vac) ADL-Treatment Therapy Code Descriptions/Definitions Functional [place] Measure: 0=Not Assessed/NA 4=Minimal Assistance 1=Total Assistance 5=Supervision or Setup 2=Maximal Assistance 6=Modified [place] 3=Moderate Assistance 7=Complete IndependenceSCALE: Activities may be completed with or without assistive devices. 8-Rojeddochx-haswjms completes the activity by him/herself with no assistance from a helper. 5-Set-up or Clean-up Assistance-helper sets up or cleans up; patient completes activity. [place] assists only prior to or following the activity. 4-Supervision or Touching Assistance-helper provides verbal cues and/or touching/steadying and/or contact guard assistance as patient completes acti vity. Assistance may be provided throughout the activity or intermittently. 3-Partial/Moderate Assistance-helper does LESS THAN HALF the effort. [place] lifts, holds or supports trunk or limbs, but provides less than half the effort. 2-Substantial/Maximal Assistance-helper does MORE THAN HALF the effort. [place] lifts or holds trunk or limbs and provides more than half the effort. 0-Etvpdheqc-vhigal does ALL the effort. Patient does none of the effort to complete the activity. Or, the assistance of 2 or more helpers is required for the patient to complete the activity. If activity was not attempted, code reason: 7-Patient Refused. 9-Not Applicable-not attempted and the patient did not perform the activity before the current illness, exacerbation or injury. 10-Not Attempted due to Environmental Limitations-(lack of equipment, weather restraints, etc.). 88-Not Attempted due to Medical Conditions or Safety Concerns. Oral Hygiene (QC): 6 ( Sat at chair at sink, completed oral care byself. ) Bathing Location: L Arm, R Arm, L Upper Leg, R Upper Leg, L Lower Leg (including foot), R Lower Leg (including foot), Chest, Abdomen, Buttocks, Perineal Area Shower/Bathe Self (QC): 5 (after set up, pt completed all steps of showering, w/ supervison ) Upper Body Dressing (QC): 5 (after set up, pt thread shirt over arms and pulled over head. ) Lower Body Dressing (QC): 4 (after set up, pt able to thread B feet through briefs and pants and hike them over hips, with supervison) On/Off Footwear: 2 (pt was able to lift feet, max assist to don jimmie hose and socks.) pt ambulated from shower to sink w/ SPC. Pt requires min assist to transfer wound vac. After therapy, pt sitting in recliner with call light/phone in reach. All needs met in room. OT Pushcart Peddler Goals Alf Goals Time Frame: Jul 20, 2020 Eating (QC): 6 Oral Hygiene (QC): 6 Toileting Hygiene (QC): 6 Shower/Bathe Self (QC): 6 Upper Body Dressing (QC): 6 Lower Body Dressing (QC): 6 On/Off Footwear (QC): 6 Additional Goals: 1-Demonstrate ADL Tasks, 2-Verbalize Understanding, 3-ImproveStrength/Fern 1=Demonstrate adherence to instructed precautions during ADL tasks. 2=Patient will verbalize/demonstrate understanding of assistive devices/modifications for ADL. 3=Patient will improve strength/tolerance for activity to enable patient to perform ADL's. OT Education/Plan Discharge Recommendations Plan/Recommendations: Continue POC Treatment Plan/Plan of Care Patient would benefit from OT for education, treatment and training to promote independence in ADL's, mobility, safety and/or upper extremity function for ADL's. Plan of Care: ADL Retraining, Concurrent Therapy, Functional Mobility, Group Exercise/Act as Ind, UE Funct Exercise/Act Treatment Duration: Jul 20, 2020 Frequency: At least 5 of 7 days/Wk (IRF) Estimated Hrs Per Day: 1.5 hours per day Agreement: Yes Rehab Potential: Good Time/GCodes Start Time: 10:00 Stop Time: 11:00 Total Time Billed (hr/min): 60 Billed Treatment Time 1 visit-ADL 4 (60 min) LEYDA HOBSON Jul 14, 2020 11:01
--- NOTE | 2020-07-14 12:17 | Physical Therapy Daily Note ---
PT Daily Note-Current Subjective Pt sitting in recliner upon arrival. Pt agrees to PT. Pain Location: No Pain Reported Mental Status Patient Orientation: Person, Place, Time, Situation Attachments: Other-See Comments (Wound Vac.) Transfers SCALE: Activities may be completed with or without assistive devices. 4-Pkiwgckbnx-atwpypm completes the activity by him/herself with no assistance from a helper. 5-Set-up or Clean-up Assistance-helper sets up or cleans up; patient completes activity. [place] assists only prior to or following the activity. 4-Supervision or Touching Assistance-helper provides verbal cues and/or touching/steadying and/or contact guard assistance as patient completes activity. Assistance may be provided throughout the activity or intermittently. 3-Partial/Moderate Assistance-helper does LESS THAN HALF the effort. [place] lifts, holds or supports trunk or limbs, but provides less than half the effort. 2-Substantial/Maximal Assistance-helper does MORE THAN HALF the effort. [place] lifts or holds trunk or limbs and provides more than half the effort. 8-Fescclopn-cjlxou does ALL the effort. Patient does none of the effort to complete the activity. Or, the assistance of 2 or more helpers is required for the patient to complete the activity. If activity was not attempted, code reason: 7-Patient Refused. 9-Not Applicable-not attempted and the patient did not perform the activity before the current illness, exacerbation or injury. 10-Not Attempted due to Environmental Limitations-(lack of equipment, weather restraints, etc.). 88-Not Attempted due to Medical Conditions or Safety Concerns. Sit to Stand (QC): 6 Weight Bearing Right Lower Extremity: Right Weight Bearing/Tolerated Left Lower Extremity: Left Weight Bearing/Tolerated Gait Training Does the Patient Walk?: Yes Distance: 150' x2 Walk 10 feet (QC): 6 Walk 50 ft with 2 Turns(QC): 6 Walk 150 ft (QC): 6 Gait Persons Needed: 1 Gait Assistive Device: Cane Large Base Quad Pt feels more comfortable using LBQC instead of SPC and already has one at home. Wheelchair Training Does the Pt Use a Wheelchair?: No Exercises Seated Therapy Exercises: Long arc quads Treatments Pt transfers to standing and amb. in hallway. Pt uses NuStep as well as completes LAQ for 5m using 2# ankle weights. Pt amb. in hallway and returns to room. Pt resting in recliner with all needs met, call light in hand. Assessment Current Status: Good Progress Pt demonstrates improved strength and mobility. PT Short Term Goals Short Term Goals Time Frame: Jul 11, 2020 Sit to lyin Lying to sitting on side of be: 4 Sit to stand: 5 Walk 150 feet: 4 4 steps: 4 PT Occupational Therapy Director Goals Occupational Therapy Director Goals PT Longterm Goals Time Frame: Jul 22, 2020 Roll Left & Right (QC): 6 Sit to Lying (QC): 6 Lying-Sitting on Side/Bed(QC): 6 Sit to Stand (QC): 6 Chair/Rra-xh-Pffba Xfer(QC): 6 Toilet Transfer (QC): 6 Car Transfer (QC): 6 Does the Patient Walk: Yes Walk 10 feet (QC): 6 Walk 50ft with 2 Turns (QC): 6 Walk 150 ft (QC): 6 Walking 10ft on Uneven Surface: 6 1 Step (curb) (QC): 6 4 Steps (QC): 6 12 Steps (QC): 4 Picking up an Object (QC): 4 Wheel 50 feet with 2 turns (QC: 9 Wheel 150 feet: 9 PT Plan Problem List Problem List: Activity Tolerance Treatment/Plan Treatment Plan: Continue Plan of Care Treatment Plan: Bed Mobility, Education, Functional Activity Fern, Functional Strength, Group Therapy, Gait, Safety, Therapeutic Exercise, Transfers Treatment Duration: Jul 22, 2020 Frequency: At least 5 of 7 days/Wk (IRF) Estimated Hrs Per Day: 1.5 hours per day Patient and/or Family Agrees t: Yes Safety Risks/Education Patient Education: Correct Positioning, Safety Issues Teaching Recipient: Patient Teaching Methods: Discussion Response to Teaching: Verbalize Understanding Time/GCodes Time In: 1100 Time Out: 1200 Total Billed Treatment Time: 60 Total Billed Treatment 1, GT (20m), FA (15m) & EX x2 (25m) PARTH TONEY LICENSE EXAMINER Jul 14, 2020 12:17
--- NOTE | 2020-07-14 13:21 | NUR ---
"RD ASSESSMENT PMHx: hypercholesterolemia; HTN; MS; recent ileostomy reversal PT INTERACTION: Pt was awake and very pleasant during nutrition follow-up. Pt states she has been eating very well since her diet was advanced. Note avg PO intake >75% x4d, per chart review. Pt states some issues with diarrhea since last assessment, but feels this will be a chronic issue upon discharge. Note last BM was 07/14, and pt not currently on bowel regimen per chart review. Note presence of wound (mid-abdomen incision), per chart review. ABNORMAL NUTRITION-RELATED LAB VALUES LOW: K 3.5; cr 0.59; Ca 8.0; Pro 5.4; alb 2.4 HIGH: Cl 108 Est. kcal needs: 1500 kcal | 20 kcal/kg Est. Pro needs: 90 g Pro | 1.2 g Pro/kg PES STATEMENT: Inadequate protein intake ([id number]) related to increased protein needs as evidenced by presence of wound (mid-abdomen incision) INTERVENTION: Continue with current diet order of Regular diet. Add Ensure HP (vary) to meals TID. Provides 160 kcal and 16 g Pro per serving, for perceived benefit to wound healing. Will continue to follow and reassess as pt needs, intake, and status change. MONITOR/EVALUATE: PO Intake; Plan of Care; Hydration Status; Weight Status; Lab Values Camron Rogers, , RD, LD"
--- NOTE | 2020-07-14 13:26 | Physical Therapy Daily Note ---
PT Daily Note-Current Subjective Pt sitting in recliner upon arrival. Pt agrees to PT. Pain Numeric Pain Scale: 3 Location Body Site: Abdomen Pain Description: Ache Mental Status Patient Orientation: Person, Place, Time, Situation Attachments: Other-See Comments (Wound Vac.) Transfers SCALE: Activities may be completed with or without assistive devices. 9-Wwlwkvxnsq-wzymzdu completes the activity by him/herself with no assistance from a helper. 5-Set-up or Clean-up Assistance-helper sets up or cleans up; patient completes activity. [place] assists only prior to or following the activity. 4-Supervision or Touching Assistance-helper provides verbal cues and/or to uching/steadying and/or contact guard assistance as patient completes activity. Assistance may be provided throughout the activity or intermittently. 3-Partial/Moderate Assistance-helper does LESS THAN HALF the effort. [place] lifts, holds or supports trunk or limbs, but provides less than half the effort. 2-Substantial/Maximal Assistance-helper does MORE THAN HALF the effort. [place] lifts or holds trunk or limbs and provides more than half the effort. 8-Imkpsdijy-cewaak does ALL the effort. Patient does none of the effort to complete the activity. Or, the assistance of 2 or more helpers is required for the patient to complete the activity. If activity was not attempted, code reason: 7-Patient Refused. 9-Not Applicable-not attempted and the patient did not perform the activity before the current illness, exacerbation or injury. 10-Not Attempted due to Environmental Limitations-(lack of equipment, weather restraints, etc.). 88-Not Attempted due to Medical Conditions or Safety Concerns. Sit to Stand (QC): 6 Weight Bearing Right Lower Extremity: Right Weight Bearing/Tolerated Left Lower Extremity: Left Weight Bearing/Tolerated Gait Training Does the Patient Walk?: Yes Distance: 450' Walk 10 feet (QC): 5 Walk 50 ft with 2 Turns(QC): 5 Walk 150 ft (QC): 5 Gait Persons Needed: 1 Gait Assistive Device: Cane Large Base Quad Wheelchair Training Does the Pt Use a Wheelchair?: No Stair Training Stair Training: Handrails/: 1 handrail, uses cane Treatments Pt transfers from recliner to standing then amb. in hallway. Pt completes 1 set of 4 steps. Pt then amb. again in hallway before returning to room at end of tx. Pt has all needs met, call light in hand. Assessment Current Status: Good Progress Pt is moving well, just needing assistance to carry Wound Vac. at this time. PT Short Term Goals Short Term Goals Time Frame: Jul 11, 2020 Sit to lyin Lying to sitting on side of be: 4 Sit to stand: 5 Walk 150 feet: 4 4 steps: 4 PT Group Home Goals Group Home Goals PT Machine Biller Goals Time Frame: Jul 22, 2020 Roll Left & Right (QC): 6 Sit to Lying (QC): 6 Lying-Sitting on Side/Bed(QC): 6 Sit to Stand (QC): 6 Chair/Iwu-bj-Sierf Xfer(QC): 6 Toilet Transfer (QC): 6 Car Transfer (QC): 6 Does the Patient Walk: Yes Walk 10 feet (QC): 6 Walk 50ft with 2 Turns (QC): 6 Walk 150 ft (QC): 6 Walking 10ft on Uneven Surface: 6 1 Step (curb) (QC): 6 4 Steps (QC): 6 12 Steps (QC): 4 Picking up an Object (QC): 4 Wheel 50 feet with 2 turns (QC: 9 Wheel 150 feet: 9 PT Plan Problem List Problem List: Activity Tolerance Treatment/Plan Treatment Plan: Continue Plan of Care Treatment Plan: Bed Mobility, Education, Functional Activity Fern, Functional Strength, Group Therapy, Gait, Safety, Therapeutic Exercise, Transfers Treatment Duration: Jul 22, 2020 Frequency: At least 5 of 7 days/Wk (IRF) Estimated Hrs Per Day: 1.5 hours per day Patient and/or Family Agrees t: Yes Safety Risks/Education Patient Education: Correct Positioning, Safety Issues Teaching Recipient: Patient Teaching Methods: Discussion Response to Teaching: Verbalize Understanding Time/GCodes Time In: 1300 Time Out: 1330 Total Billed Treatment Time: 30 Total Billed Treatment 1, FA (10m) & GT (20m) PARTH TONEY TAX COMPLIANCE REPRESENTATIVE Jul 14, 2020 13:26
--- NOTE | 2020-07-14 14:38 | Occupational Ther Daily Note ---
OT Current Status-Daily Note Subjective Pt alert, sitting in recliner. Pt agrees to therapy. Pain Numeric Pain Scale: 0-No Pain Mental Status/Objective Patient Orientation: Person, Place, Time, Situation Attachments: Other-See Comments (wound vac) ADL-Treatment Assist to manipulate tubing and wound vac. Once back in room after treatment, pt stated that she needed to use the restroom. Pt was able to transfer to toilet with supervision. Pt was able to complete toileting hygiene with supervision. Pt ambulated back to recliner. Wound vac plugged in. Call light/phone in reach. All needs met. Therapy Code Descriptions/Definitions Functional Burt Measure: 0=Not Assessed/NA 4=Minimal Assistance 1=Total Assistance 5=Supervision or Setup 2=Maximal Assistance 6=Modified Burt 3=Moderate Assistance 7=Complete IndependenceSCALE: Activities may be completed with or without assistive devices. 8-Xhpregudwq-phapvys completes the activity by him/herself with no assistance from a helper. 5-Set-up or Clean-up Assistance-helper sets up or cleans up; patient completes activity. [place] assists only prior to or following the activity. 4-Supervision or Touching Assistance-helper provides verbal cues and/or touching/steadying and/or contact guard assistance as patient completes activity. Assistance may be provided throughout the activity or intermittently. 3-Partial/Moderate Assistance-helper does LESS THAN HALF the effort. [place] lifts, holds or supports trunk or limbs, but provides less than half the effort. 2-Substantial/Maximal Assistance-helper does MORE THAN HALF the effort. [place] lifts or holds trunk or limbs and provides more than half the effort. 0-Xvibillqn-ydkuxj does ALL the effort. Patient does none of the effort to complete the activity. Or, the assistance of 2 or more helpers is required for the patient to complete the activity. If activity was not attempted, code reason: 7-Patient Refused. 9-Not Applicable-not attempted and the patient did not perform the activity before the current illness, exacerbation or injury. 10-Not Attempted due to Environmental Limitations-(lack of equipment, weather restraints, etc.). 88-Not Attempted due to Medical Conditions or Safety Concerns. On/Off Footwear: 5 (Pt able to don/doff socks by crossing foot over knee.) Toileting Hygiene (QC): 4 Toilet Transfer (QC): 4 Wound vac transferred with IV pole. Other Treatment Pt ambulated from room to gym using quadcave with supervision. Once in gym, pt sat at chair with desk. Pt completed 1 round of 3 sets of arch with 1 pound weights around wrist for strengthening of BUE and standing balance. Pt requested recovery break. Pt then completed B UE gross and fine motor task with OT while standing with 1# wrist wts. Participated in 4 rounds and no recovery break required. Pt ambulated using quadcane back to room with supervision. OT Sales Training Representative Goals Sales Training Representative Goals Time Frame: Jul 20, 2020 Eating (QC): 6 Oral Hygiene (QC): 6 Toileting Hygiene (QC): 6 Shower/Bathe Self (QC): 6 Upper Body Dressing (QC): 6 Lower Body Dressing (QC): 6 On/Off Footwear (QC): 6 Additional Goals: 1-Demonstrate ADL Tasks, 2-Verbalize Understanding, 3- ImproveStrength/Fern 1=Demonstrate adherence to instructed precautions during ADL tasks. 2=Patient will verbalize/demonstrate understanding of assistive devices/modifications for ADL. 3=Patient will improve strength/tolerance for activity to enable patient to perform ADL's. OT Education/Plan Problem List/Assessment Assessment: Decreased Activ Tolerance, Impaired I ADL's, Impaired Self-Care Skills, Restricted Funct UE ROM Discharge Recommendations Plan/Recommendations: Continue POC Treatment Plan/Plan of Care Patient would benefit from OT for education, treatment and training to promote independence in ADL's, mobility, safety and/or upper extremity function for ADL's. Plan of Care: ADL Retraining, Concurrent Therapy, Functional Mobility, Group Exercise/Act as Ind, UE Funct Exercise/Act Treatment Duration: Jul 20, 2020 Frequency: At least 5 of 7 days/Wk (IRF) Estimated Hrs Per Day: 1.5 hours per day Agreement: Yes Rehab Potential: Good Time/GCodes Start Time: 14:00 Stop Time: 14:38 Total Time Billed (hr/min): 38 Billed Treatment Time 1 visit- ADL 1 (8 min), EX 2 (30) LEYDA HOBSON Jul 14, 2020 14:38
--- NOTE | 2020-07-14 15:56 | Progress Note - Surgery ---
FITONKECHI MED STUDENT 07/14/20 1556: Subjective Date Seen by a Provider: Jul 14, 2020 Time Seen by a Provider: 07:30 Subjective/Events-last exam Pt comfortable sitting up in chair. Has been tolerating increase in diet and activity well. Reports some abdominal soreness but it is well managed. Suture sites look clean with no visible signs of infection. Sutures need removed today. Reports normal bowel functions. Denies n/v, fever, chest pain, sob. Objective Exam Vital Signs Date Time Temp Pulse Resp B/P (MAP) Pulse Ox O2 Delivery O2 Flow Rate FiO2 07/14/20 09:24 Room Air 07/14/20 05:30 36.2 81 14 161/85 (110) Room Air 07/13/20 21:00 99 Room Air 07/13/20 17:34 36.3 85 18 166/89 (114) 99 Room Air I & O 07/14/20 07:00 Intake Total 1610 ml Balance 1610 ml Capillary Refill : Less Than 3 Seconds General Appearance: No Apparent Distress, WD/WN, Chronically ill HEENT: PERRL/EOMI Neck: Full Range of Motion, Normal Inspection, Non Tender, Supple Respiratory: Chest Non Tender, Lungs Clear, Normal Breath Sounds, No Accessory Muscle Use, No Respiratory Distress Cardiovascular: Regular Rate, Rhythm, No Gallop, No Murmur Gastrointestinal: soft, tenderness (incisional incisions c/d/i ), other (wound VAC in place looks good) Neurologic/Psychiatric: Alert, Oriented x3, No Motor/Sensory Deficits, Normal Mood/Affect, Motor Weakness (generalized weakness all extremities 4/5) Skin: Normal Color, Warm/Dry Assessment/Plan Assessment/Plan Assessment/Plan Continue wound VAC Remove sutures ARIADNE CARDONA DO 07/14/202137: Subjective Subjective/Events-last exam tolerating diet. pain controlled. wound vac at midline. no new complaints denies n/v fever sweats chills shortness of breath or chest pain. Objective Exam General Appearance: No Apparent Distress, Chronically ill HEENT: PERRL/EOMI Neck: Full Range of Motion, Normal Inspection, Non Tender, Supple Respiratory: Chest Non Tender, No Accessory Muscle Use, No Respiratory Distress Cardiovascular: Regular Rate, Rhythm Gastrointestinal: soft, tenderness (incisional incisions c/d/i ), other (wound VAC midline) Extremity: Non Tender Neurologic/Psychiatric: Alert, Oriented x3, No Motor/Sensory Deficits, Normal Mood/Affect Skin: Normal Color, Warm/Dry Lymphatic: No Adenopathy Assessment/Plan Assessment/Plan Assessment/Plan ileostomy reversal bowel evisceration with closure of abdomen and placement of phasix mesh (hernia repair) debility patient improving diet as tolerates continue wound vac changes/wound care Supervisory-Addendum Brief Verification & Attestation Participated in pt care: history, MDM, physical Personally performed: exam, history, MDM, supervision of care Care discussed with: Medical Student Procedures: n/a Results interpretation: Verified all documentation Verification and Attestation of Medical Student E/M Service A medical student performed and documented this service in my presence. I reviewed and verified all information documented by the medical student and made modifications to such information, when appropriate. I personally performed the physical exam and medical decision making. Ariadne Cardona, Jul 14, 2020,21:38 NKECHI PAYTON MED STUDENT Jul 14, 2020 15:56 ARIADNE CARDONA DO Jul 14, 2020 21:38
[2020-07-14 16:30] VITALS: BP 150/79
[2020-07-14] MEDS: ENOXAPARIN 40 MG/0.4 ML (LOVENOX) SYR SC SCH (17:02)
--- NOTE | 2020-07-16 07:12 | Progress Note - Surgery ---
Subjective Date Seen by a Provider: Jul 16, 2020 Time Seen by a Provider: 06:50 Subjective/Events-last exam Pt comfortable sitting up in chair. Has been tolerating diet well. Reports normal BM and urination. Is experiencing some abdominal soreness, but nothing of new onset. Incision c/d/i. No other concerns at this time. Denies n/v, fever, chest pain, sob. Objective Exam Capillary Refill : Less Than 3 Seconds General Appearance: No Apparent Distress, Chronically ill HEENT: PERRL/EOMI Neck: Full Range of Motion, Normal Inspection, Non Tender, Supple Respiratory: Chest Non Tender, No Accessory Muscle Use, No Respiratory Distress Cardiovascular: Regular Rate, Rhythm Gastrointestinal: soft, tenderness (incisional incisions c/d/i ), other (wound VAC midline) Extremity: Non Tender Neurologic/Psychiatric: Alert, Oriented x3, No Motor/Sensory Deficits, Normal Mood/Affect Skin: Normal Color, Warm/Dry Lymphatic: No Adenopathy Assessment/Plan Assessment/Plan Assessment/Plan ileostomy reversal bowel evisceration with closure of abdomen and placement of phasix mesh (hernia repair) debility patient improving diet as tolerates continue wound vac changes/wound care NKECHI PAYTON MED STUDENT Jul 16, 2020 07:12
--- NOTE | 2020-07-16 08:28 | PM&R Progress Note ---
Subjective HPI/CC On Admission Date Seen by Provider: Jul 15, 2020 Time Seen by Provider: 08:45 Subjective/Events-last exam 07/15/20: Patient has some loose stools which we will continue Changing wound VAC every Monday and Monday Feels like she is making some progress No falls reported 07/14/20: Bowels moved yesterday No major issues Wound vac changed every Monday, Monday and Monday Discharge at the end of the week hopefully 07/13/20: Hgb stable at 8.2, potassium 3.5 Redness around sutures will inquire with Dr. Cardona about removing them No picc line will be needed since we will shift to oral pain medication an hour before the wound vac change Lisinopril will be added for elevated BP 07/12/20: Patient feels good Regular diet tolerated No pain is reported except when wound vac changed Labs due tomorrow 07/11/20: Patient doing well Regular diet tolerated well Wound vac MWF Abx will be changed to PO since IV went bad and can't replace due to poor access 07/10/20: Changed wound vac and that will be done Monday, Monday and Monday Good healing Bowels are loose but that is a chronic issue Participating in therapy 07/09/20: Pt reports abdominal pain where the wound vac is Bowels are still loose and watery Overall feels like she is doing pretty good otherwise Chronic debility is improving 07/08/20: Needs pain medication before wound vac change Overall feels pretty good Eating and drinking well Overall progressing nicely 07/07/20: WBC 13.4 down from 16 Watery diarrhea Buttpaste ordered for ramos-area Lortab taken this morning Checked meds and labs Reviewed therapy notes Conferred with rail car repairer of Systems General: Fatigue, Malaise Neurological: Weakness Objective Exam Vital Signs Vital Signs Date Time Temp Pulse Resp B/P (MAP) Pulse Ox O2 Delivery O2 Flow Rate FiO2 07/14/20 20:20 Room Air 07/14/20 16:30 35.8 84 14 150/79 (102) 98 Capillary Refill : Less Than 3 Seconds General Appearance: No Apparent Distress, Chronically ill HEENT: PERRL/EOMI, Normal ENT Inspection, Pharynx Normal Neck: Full Range of Motion, Normal Inspection, Non Tender, Supple Respiratory: Chest Non Tender, Lungs Clear, Normal Breath Sounds, No Accessory Muscle Use, No Respiratory Distress, Decreased Breath Sounds Cardiovascular: Regular Rate, Rhythm, No Gallop, No JVD, No Murmur, Normal Peripheral Pulses Gastrointestinal: Normal Bowel Sounds, No Organomegaly, No Pulsatile Mass, Soft, Tenderness, Other (wound vac in place) Back: Normal Inspection, No CVA Tenderness, No Vertebral Tenderness Extremity: Normal Capillary Refill, Normal Inspection, Normal Range of Motion, Non Tender, No Calf Tenderness, Pedal Edema Neurologic/Psychiatric: Alert, Oriented x3, No Motor/Sensory Deficits, Normal Mood/Affect, advertising intern II-XII Norm as Tested, Motor Weakness (generalized) Skin: Normal Color, Warm/Dry Lymphatic: No Adenopathy Results/Procedures Lab Patient resulted labs reviewed. FIM Transfers Therapy Code Descriptions/Definitions Functional [place] Measure: 0=Not Assessed/NA 4=Minimal Assistance 1=Total Assistance 5=Supervision or Setup 2=Maximal Assistance 6=Modified [place] 3=Moderate Assistance 7=Complete IndependenceSCALE: Activities may be completed with or without assistive devices. 6-Jktuqqpppr-xnqvprj completes the activity by him/herself with no assistance from a helper. 5-Set-up or Clean-up Assistance-helper sets up or cleans up; patient completes activity. [place] assists only prior to or following the activity. 4-Supervision or Touching Assistance-helper provides verbal cues and/or touching/steadying and/or contact guard assistance as patient completes activity. Assistance may be provided throughout the activity or intermittently. 3-Partial/Moderate Assistance-helper does LESS THAN HALF the effort. [place] lifts, holds or supports trunk or limbs, but provides less than half the effort. 2-Substantial/Maximal Assistance-helper does MORE THAN HALF the effort. [place] lifts or holds trunk or limbs and provides more than half the effort. 0-Viheqvqdk-wzuxmc does ALL the effort. Patient does none of the effort to complete the activity. Or, the assistance of 2 or more helpers is required for the patient to complete the activity. If activity was not attempted, code reason: 7-Patient Refused. 9-Not Applicable-not attempted and the patient did not perform the activity before the current illness, exacerbation or injury. 10-Not Attempted due to Environmental Limitations-(lack of equipment, weather restraints, etc.). 88-Not Attempted due to Medical Conditions or Safety Concerns. Roll Left to Right (QC): 6 Sit to Lying (QC): 6 Sit to Stand (QC): 6 Chair/Lhy-vp-Ofrjl Xfer(QC): 6 Car Transfer (QC): 4 Gait Training Does the Patient Walk?: Yes Distance: 450' Walk 10 feet (QC): 5 Walk 50 ft with 2 Turns(QC): 5 Walk 150 ft (QC): 5 Walking 10ft/uneven surface-QC: 0 (will assess at follow up visit) Gait Persons Needed: 1 Gait Assistive Device: Cane Large Base Quad Wheelchair Training Does the Pt Use a Wheelchair?: No Wheel 50 ft with 2 turns (QC): 9 Wheel 150 ft (QC): 9 Stair Training Stair Training: Handrails/: 1 handrail, uses cane #of Steps: 1 1 Step (curb) (QC): 4 4 Steps (QC): 0 12 Steps (QC): 88 Balance Picking up an Object (QC): 88 ADL-Treatment Eating (QC): 6 (Pt reports having no difficulty eating lunch) Oral Hygiene (QC): 6 ( Sat at chair at sink, completed oral care byself. ) Bathing Location: L Arm, R Arm, L Upper Leg, R Upper Leg, L Lower Leg (including foot), R Lower Leg (including foot), Chest, Abdomen, Buttocks, Perineal Area Shower/Bathe Self (QC): 5 (after set up, pt completed all steps of showering, w/ supervison ) Upper Body Dressing (QC): 5 (after set up, pt thread shirt over arms and pulled over head. 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 Anasarca hx Hirsutism Poor albumin level improved h/o Ascites s/p paracentesis just bloody serous NGTD Anemia s/p transfusions 2 units 03/17/20 Situational depression Plan: IRF protocol Continue treatment plan Appreciate Surgery management 07/07/20: Monitor white count now 13 down from 16 Watery diarrhea monitoring Butt paste as needed Pain medication as needed 07/08/20: Continue changing wound vac Pain medication before wound vac change Continue strengthening from physical therapy Encourage good nutrition 07/09/20: Continue wound vac changes Bowels still loose Supportive care 07/10/20: Maintain wound vac change Monday, Monday, and Monday Good healing Bowels are still a little bit loose Continue aggressive treatment 07/11/20: Surgery to decide about abx since IV went bad Increase PO nutrition 07/12/20: Monitor nutrition Monitor labs Wound vac changed MWF 07/13/20: Inquire with Dr. Cardona regarding redness around sutures post form remover to pill form of pain medication before wound vac Restart Lisinopril as she takes at home 07/14/20: Maintain bowel regimen Wound vac change Monday, Monday, and Monday Pain control Remove IV today 07/15/20: Monitor pain Wound vac changes Reviewed team conference plans (1) Debility (2) Evisceration of bowel Status: Acute (3) Surgical wound dehiscence Status: Acute (4) Hypertensive emergency Status: Acute (5) Hypertension Status: Chronic (6) Hyperlipidemia Status: Chronic (7) Coronary artery disease Status: Chronic (8) Abdominal pain Status: Acute (9) Anasarca (10) Anemia (11) Hirsutism (12) Leukocytosis SESAR BEEBE DO Jul 16, 2020 08:28
--- NOTE | 2020-07-16 08:28 | PM&R Progress Note ---
Subjective HPI/CC On Admission Date Seen by Provider: Jul 16, 2020 Time Seen by Provider: 08:45 Subjective/Events-last exam 07/16/20: Wound vac changed one hour after pain pill given which is helping a great deal Pain is overall doing well Bowels are moving today Wound is much improved on her abdomen Overall progressing nicely 07/15/20: Patient has some loose stools which we will continue Changing wound VAC every Monday and Monday Feels like she is making some progress No falls reported 07/14/20: Bowels moved yesterday No major issues Wound vac changed every Monday, Monday and Monday Discharge at the end of the week hopefully 07/13/20: Hgb stable at 8.2, potassium 3.5 Redness around sutures will inquire with Dr. Cardona about removing them No picc line will be needed since we will shift to oral pain medication an hour before the wound vac change Lisinopril will be added for elevated BP 07/12/20: Patient feels good Regular diet tolerated No pain is reported except when wound vac changed Labs due tomorrow 07/11/20: Patient doing well Regular diet tolerated well Wound vac MWF Abx will be changed to PO since IV went bad and can't replace due to poor access 07/10/20: Changed wound vac and that will be done Monday, Monday and Monday Good healing Bowels are loose but that is a chronic issue Participating in therapy 07/09/20: Pt reports abdominal pain where the wound vac is Bowels are still loose and watery Overall feels like she is doing pretty good otherwise Chronic debility is improving 07/08/20: Needs pain medication before wound vac change Overall feels pretty good Eating and drinking well Overall progressing nicely 07/07/20: WBC 13.4 down from 16 Watery diarrhea Buttpaste ordered for ramos-area Lortab taken this morning Checked meds and labs Reviewed therapy notes Conferred with fig washer of Systems General: Fatigue, Malaise Gastrointestinal: Abdominal Pain Objective Exam Vital Signs Vital Signs Date Time Temp Pulse Resp B/P (MAP) Pulse Ox O2 Delivery O2 Flow Rate FiO2 07/16/20 20:20 Room Air 07/16/20 16:30 35.8 79 14 141/87 (105) 97 Capillary Refill : Less Than 3 Seconds General Appearance: No Apparent Distress, Chronically ill HEENT: PERRL/EOMI, Normal ENT Inspection, Pharynx Normal Neck: Full Range of Motion, Normal Inspection, Non Tender, Supple Respiratory: Chest Non Tender, Lungs Clear, Normal Breath Sounds, No Accessory Muscle Use, No Respiratory Distress, Decreased Breath Sounds Cardiovascular: Regular Rate, Rhythm, No Gallop, No JVD, No Murmur, Normal Peripheral Pulses Gastrointestinal: Normal Bowel Sounds, No Organomegaly, No Pulsatile Mass, Soft, Tenderness, Other (wound vac in place) Back: Normal Inspection, No CVA Tenderness, No Vertebral Tenderness Extremity: Normal Capillary Refill, Normal Inspection, Normal Range of Motion, Non Tender, No Calf Tenderness, Pedal Edema Neurologic/Psychiatric: Alert, Oriented x3, No Motor/Sensory Deficits, Normal Mood/Affect, inspector integrated circuits II-XII Norm as Tested, Motor Weakness (generalized) Skin: Normal Color, Warm/Dry Lymphatic: No Adenopathy Results/Procedures Lab Patient resulted labs reviewed. FIM Transfers Therapy Code Descriptions/Definitions Functional [place] Measure: 0=Not Assessed/NA 4=Minimal Assistance 1=Total Assistance 5=Supervision or Setup 2=Maximal Assistance 6=Modified [place] 3=Moderate Assistance 7=Complete IndependenceSCALE: Activities may be completed with or without assistive devices. 1-Oyfexgulep-yamgaoj completes the activity by him/herself with no assistance from a helper. 5-Set-up or Clean-up Assistance-helper sets up or cleans up; patient completes activity. [place] assists only prior to or following the activity. 4-Supervision or Touching Assistance-helper provides verbal cues and/or touching/steadying and/or contact guard assistance as patient completes activity. Assistance may be provided throughout the activity or intermittently. 3-Partial/Moderate Assistance-helper does LESS THAN HALF the effort. [place] lifts, holds or supports trunk or limbs, but provides less than half the effort. 2-Substantial/Maximal Assistance-helper does MORE THAN HALF the effort. [place] lifts or holds trunk or limbs and provides more than half the effort. 2-Cllglqgqw-uobvmd does ALL the effort. Patient does none of the effort to complete the activity. Or, the assistance of 2 or more helpers is required for the patient to complete the activity. If activity was not attempted, code reason: 7-Patient Refused. 9-Not Applicable-not attempted and the patient did not perform the activity before the current illness, exacerbation or injury. 10-Not Attempted due to Environmental Limitations-(lack of equipment, weather restraints, etc.). 88-Not Attempted due to Medical Conditions or Safety Concerns. Roll Left to Right (QC): 6 Sit to Lying (QC): 6 Sit to Stand (QC): 6 Chair/Xbf-cc-Ezgvw Xfer(QC): 6 Car Transfer (QC): 4 Gait Training Does the Patient Walk?: Yes Distance: 450' Walk 10 feet (QC): 5 Walk 50 ft with 2 Turns(QC): 5 Walk 150 ft (QC): 5 Walking 10ft/uneven surface-QC: 0 (will assess at follow up visit) Gait Persons Needed: 1 Gait Assistive Device: Cane Large Base Quad Wheelchair Training Does the Pt Use a Wheelchair?: No Wheel 50 ft with 2 turns (QC): 9 Wheel 150 ft (QC): 9 Stair Training Stair Training: Handrails/: 1 handrail, uses cane #of Steps: 1 1 Step (curb) (QC): 4 4 Steps (QC): 0 12 Steps (QC): 88 Balance Picking up an Object (QC): 88 ADL-Treatment Eating (QC): 6 (Pt reports having no difficulty eating lunch) Oral Hygiene (QC): 6 ( Sat at chair at sink, completed oral care byself. ) Bathing Location: L Arm, R Arm, L Upper Leg, R Upper Leg, L Lower Leg (including foot), R Lower Leg (including foot), Chest, Abdomen, Buttocks, Perineal Area Shower/Bathe Self (QC): 5 (after set up, pt completed all steps of showering, w/ supervison ) Upper Body Dressing (QC): 5 (after set up, pt thread shirt over arms and pulled over head. 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 Anasarca hx Hirsutism Poor albumin level improved h/o Ascites s/p paracentesis just bloody serous NGTD Anemia s/p transfusions 2 units 03/17/20 Situational depression Plan: IRF protocol Continue treatment plan Appreciate Surgery management 07/07/20: Monitor white count now 13 down from 16 Watery diarrhea monitoring Butt paste as needed Pain medication as needed 07/08/20: Continue changing wound vac Pain medication before wound vac change Continue strengthening from physical therapy Encourage good nutrition 07/09/20: Continue wound vac changes Bowels still loose Supportive care 07/10/20: Maintain wound vac change Monday, Monday, and Monday Good healing Bowels are still a little bit loose Continue aggressive treatment 07/11/20: Surgery to decide about abx since IV went bad Increase PO nutrition 07/12/20: Monitor nutrition Monitor labs Wound vac changed MWF 07/13/20: Inquire with Dr. Cardona regarding redness around sutures hand box coverer to pill form of pain medication before wound vac Restart Lisinopril as she takes at home 07/14/20: Maintain bowel regimen Wound vac change Monday, Monday, and Monday Pain control Remove IV today 07/15/20: Monitor pain Wound vac changes Reviewed team conference plans 07/16/20: Pain management Fall risk Wound vac management (1) Debility (2) Evisceration of bowel Status: Acute (3) Surgical wound dehiscence Status: Acute (4) Hypertensive emergency Status: Acute (5) Hypertension Status: Chronic (6) Hyperlipidemia Status: Chronic (7) Coronary artery disease Status: Chronic (8) Abdominal pain Status: Acute (9) Anasarca (10) Anemia (11) Hirsutism (12) Leukocytosis SESAR BEEBE DO Jul 16, 2020 08:28
--- NOTE | 2020-07-16 09:05 | Physical Therapy Daily Note ---
PT Daily Note-Current Subjective Pt sitting in recliner upon arrival. Pt agrees to PT. Pain Numeric Pain Scale: 3 Location Body Site: Abdomen Pain Description: Ache Mental Status Patient Orientation: Person, Place, Time, Situation Attachments: Other-See Comments (Wound Vac.) Transfers SCALE: Activities may be completed with or without assistive devices. 5-Zvyiqjbvyh-czrmboe completes the activity by him/herself with no assistance from a helper. 5-Set-up or Clean-up Assistance-helper sets up or cleans up; patient completes activity. [place] assists only prior to or following the activity. 4-Supervision or Touching Assistance-helper provides verbal cues and/or to uching/steadying and/or contact guard assistance as patient completes activity. Assistance may be provided throughout the activity or intermittently. 3-Partial/Moderate Assistance-helper does LESS THAN HALF the effort. [place] lifts, holds or supports trunk or limbs, but provides less than half the effort. 2-Substantial/Maximal Assistance-helper does MORE THAN HALF the effort. [place] lifts or holds trunk or limbs and provides more than half the effort. 7-Jvuijttti-sfnuoa does ALL the effort. Patient does none of the effort to complete the activity. Or, the assistance of 2 or more helpers is required for the patient to complete the activity. If activity was not attempted, code reason: 7-Patient Refused. 9-Not Applicable-not attempted and the patient did not perform the activity before the current illness, exacerbation or injury. 10-Not Attempted due to Environmental Limitations-(lack of equipment, weather restraints, etc.). 88-Not Attempted due to Medical Conditions or Safety Concerns. Sit to Stand (QC): 5 Toilet Transfer (QC): 5 Weight Bearing Right Lower Extremity: Right Weight Bearing/Tolerated Left Lower Extremity: Left Weight Bearing/Tolerated Gait Training Does the Patient Walk?: Yes Distance: 450' Walk 10 feet (QC): 5 Walk 50 ft with 2 Turns(QC): 5 Walk 150 ft (QC): 5 Gait Persons Needed: 1 Gait Assistive Device: Cane Large Base Quad Wheelchair Training Does the Pt Use a Wheelchair?: No Exercises Seated Therapy Exercises: Sit to stand, Long arc quads, Hip flexion, Kicking activity, Hip abd/add, Glut set Seated Reps: 20 NuStep Minutes: 15 NuStep Workload: 5 Treatments Pt transfers to standing, uses restroom and amb. in hallway. Pt completes Seated EX and uses NuStep. Pt takes extended amb. in hallway before returning to room. Pt rests in recliner with all needs met, call light in hand. Assessment Current Status: Good Progress Pt breezy. tx well. PT Short Term Goals Short Term Goals Time Frame: Jul 11, 2020 Sit to lyin Lying to sitting on side of be: 4 Sit to stand: 5 Walk 150 feet: 4 4 steps: 4 PT Loft Rigger Goals Retirement Goals PT Loft Rigger Goals Time Frame: Jul 22, 2020 Roll Left & Right (QC): 6 Sit to Lying (QC): 6 Lying-Sitting on Side/Bed(QC): 6 Sit to Stand (QC): 6 Chair/Zwq-bi-Kisrs Xfer(QC): 6 Toilet Transfer (QC): 6 Car Transfer (QC): 6 Does the Patient Walk: Yes Walk 10 feet (QC): 6 Walk 50ft with 2 Turns (QC): 6 Walk 150 ft (QC): 6 Walking 10ft on Uneven Surface: 6 1 Step (curb) (QC): 6 4 Steps (QC): 6 12 Steps (QC): 4 Picking up an Object (QC): 4 Wheel 50 feet with 2 turns (QC: 9 Wheel 150 feet: 9 PT Plan Problem List Problem List: Activity Tolerance Treatment/Plan Treatment Plan: Continue Plan of Care Treatment Plan: Bed Mobility, Education, Functional Activity [place], Functional Strength, Group Therapy, Gait, Safety, Therapeutic Exercise, Transfers Treatment Duration: Jul 22, 2020 Frequency: At least 5 of 7 days/Wk (IRF) Estimated Hrs Per Day: 1.5 hours per day Patient and/or Family Agrees t: Yes Safety Risks/Education Patient Education: Correct Positioning, Safety Issues Teaching Recipient: Patient Teaching Methods: Discussion Response to Teaching: Verbalize Understanding Time/GCodes Time In: 800 Time Out: 900 Total Billed Treatment Time: 60 Total Billed Treatment 1, GT (20m), FA (15m) & EX x2 (25m) PARTH TONEY HIDE INSPECTOR Jul 16, 2020 09:04
--- NOTE | 2020-07-16 10:59 | Occupational Ther Daily Note ---
OT Current Status-Daily Note Subjective Pt sitting on chair at sink. Pt requested to take a shower. No c/o of pain. Mental Status/Objective Patient Orientation: Person, Place, Time, Situation Attachments: Other-See Comments Wound vac ADL-Treatment Pt sit to stand from chair with supervision. Pt ambulated to shower bench for shower with supervision. OT wrapped wound. Pt able to wash all body parts, supervision for safety due to decrease in UE strength. Pt ambulated back to recliner. Call light/phone in reach. All needs met. Therapy Code Descriptions/Definitions Functional [place] Measure: 0=Not Assessed/NA 4=Minimal Assistance 1=Total Assistance 5=Supervision or Setup 2=Maximal Assistance 6=Modified [place] 3=Moderate Assistance 7=Complete IndependenceSCALE: Activities may be completed with or without assistive devices. 0-Zofsixtnab-pfvvugx completes the activity by him/herself with no assistance from a helper. 5-Set-up or Clean-up Assistance-helper sets up or cleans up; patient completes activity. [place] assists only prior to or following the activity. 4-Supervision or Touching Assistance-helper provides verbal cues and/or touching/steadying and/or contact guard assistance as patient completes activity. Assistance may be provided throughout the activity or intermittently. 3-Partial/Moderate Assistance-helper does LESS THAN HALF the effort. [place] lifts, holds or supports trunk or limbs, but provides less than half the effort. 2-Substantial/Maximal Assistance-helper does MORE THAN HALF the effort. [place] lifts or holds trunk or limbs and provides more than half the effort. 5-Znibfswmx-rttyza does ALL the effort. Patient does none of the effort to complete the activity. Or, the assistance of 2 or more helpers is required for the patient to complete the activity. If activity was not attempted, code reason: 7-Patient Refused. 9-Not Applicable-not attempted and the patient did not perform the activity before the current illness, exacerbation or injury. 10-Not Attempted due to Environmental Limitations-(lack of equipment, weather restraints, etc.). 88-Not Attempted due to Medical Conditions or Safety Concerns. Oral Hygiene (QC): 6 (Pt completed sitting at sink.) Bathing Location: L Arm, R Arm, L Upper Leg, R Upper Leg, L Lower Leg (including foot), R Lower Leg (including foot), Chest, Perineal Area Shower/Bathe Self (QC): 4 Upper Body Dressing (QC): 5 (After set up, pt able to don/doff shirt by self.) Lower Body Dressing (QC): 5 (After set up, pt able to complete lower body dressing by self.) On/Off Footwear: 3 (Assist to don jimmie hose, attempted sock aide. Pt able to don/doff socks byself.) Education OT Patient Education: Safety issues Teaching Recipient: Patient, Significant Other Teaching Methods: Demonstration Response to Teaching: Return Demonstration OT Detention Goals Detention Goals Time Frame: Jul 20, 2020 Eating (QC): 6 Oral Hygiene (QC): 6 Toileting Hygiene (QC): 6 Shower/Bathe Self (QC): 6 Upper Body Dressing (QC): 6 Lower Body Dressing (QC): 6 On/Off Footwear (QC): 6 Additional Goals: 1-Demonstrate ADL Tasks, 2-Verbalize Understanding, 3- ImproveStrength/Fern 1=Demonstrate adherence to instructed precautions during ADL tasks. 2=Patient will verbalize/demonstrate understanding of assistive devices/modifications for ADL. 3=Patient will improve strength/tolerance for activity to enable patient to perform ADL's. OT Education/Plan Problem List/Assessment Assessment: Decreased UE Strength, Impaired I ADL's, Impaired Self-Care Skills, Restricted Funct UE ROM Discharge Recommendations Plan/Recommendations: Continue POC Treatment Plan/Plan of Care Patient would benefit from OT for education, treatment and training to promote independence in ADL's, mobility, safety and/or upper extremity function for ADL's. Plan of Care: ADL Retraining, Concurrent Therapy, Functional Mobility, Group Exercise/Act as Ind, UE Funct Exercise/Act Treatment Duration: Jul 20, 2020 Frequency: At least 5 of 7 days/Wk (IRF) Estimated Hrs Per Day: 1.5 hours per day Agreement: Yes Rehab Potential: Good Time/GCodes Start Time: 10:00 Stop Time: 11:00 Total Time Billed (hr/min): 60 Billed Treatment Time 1 visit- ADL 4 (60 mins) LEYDA HOBSON Jul 16, 2020 10:59
[2020-07-16] MEDS: HYDROcodone/APAP 5 MG/325 MG (LORTAB) TAB PO PRN ×2 (11:35→23:54)
[2020-07-16] MEDS: lisINopril 20 MG (PRINIVIL) TABLET PO SCH ×3 (11:37→20:53)
[2020-07-16] MEDS: meTOprolol SUCCINATE 100 MG (TOPROL XL) TAB PO SCH ×2 (11:37→11:43)
[2020-07-16] MEDS: metroNIDAZOLE 500 MG (FLAGYL) TAB PO SCH ×4 (11:37→14:53)
[2020-07-16] MEDS: AUGMENTIN 875 MG TAB (AMOXICILLIN/CLAVULANATE) PO SCH ×2 (11:37→11:43)
[2020-07-16 11:44] VITALS: BP 145/83
--- NOTE | 2020-07-16 13:24 | NUR ---
CM/SS PATIENT CARE CONFERENCE Reviewed Summary with patient, she understands a primary discharge component is the wound vac and how long that will be needed. DISCHARGE BARRIERS: Patient remains uninsured. Wound vac is still required due to complicated abdominal surgery x 2, including evisceration of bowel. Since the exact discontinuance is relative to how the wound heals, a home vac would have to be approved jasbir. At present, a short term home health RN would be recommended to follow patient at home due to the vac and wound dressing/care. Associate Professor has explored home health agencies in patient's service area who may provide under a jasbir status. [facility] could do jasbir but patient resides too far out of service area to flex acceptance. [facility] denied. Associate Professor did contact [facility], they agreed to review a care plan packet and determine from there. Associate Professor has discussed with patient, she is simply not able to pay privately for home health services but would accept if there was no financial obligation. She also indicated she would not be comfortable managing a wound vac at home alone without [facility] support. Referral sent to [facility], will update progress notes when decision provided. Patient to be reviewed next Monday07/22/20 unless circumstances change for in-home support and patient is able to get a jasbir wound vac.
--- NOTE | 2020-07-16 14:10 | Occupational Ther Daily Note ---
OT Current Status-Daily Note Subjective Pt alert in recliner. Pt agreed to therapy. No c/o of pain. Mental Status/Objective Patient Orientation: Person, Place, Time, Situation ADL-Treatment Therapy Code Descriptions/Definitions Functional [place] Measure: 0=Not Assessed/NA 4=Minimal Assistance 1=Total Assistance 5=Supervision or Setup 2=Maximal Assistance 6=Modified [place] 3=Moderate Assistance 7=Complete IndependenceSCALE: Activities may be completed with or without assistive devices. 2-Fnmtnhmkmu-hipqorm completes the activity by him/herself with no assistance from a helper. 5-Set-up or Clean-up Assistance-helper sets up or cleans up; patient completes activity. [place] assists only prior to or following the activity. 4-Supervision or Touching Assistance-helper provides verbal cues and/or touching/steadying and/or contact guard assistance as patient completes activity. Assistance may be provided throughout the activity or intermittently. 3-Partial/Moderate Assistance-helper does LESS THAN HALF the effort. [place] lifts, holds or supports trunk or limbs, but provides less than half the effort. 2-Substantial/Maximal Assistance-helper does MORE THAN HALF the effort. [place] lifts or holds trunk or limbs and provides more than half the effort. 5-Iprlnhkub-blthbg does ALL the effort. Patient does none of the effort to complete the activity. Or, the assistance of 2 or more helpers is required for the patient to complete the activity. If activity was not attempted, code reason: 7-Patient Refused. 9-Not Applicable-not attempted and the patient did not perform the activity before the current illness, exacerbation or injury. 10-Not Attempted due to Environmental Limitations-(lack of equipment, weather restraints, etc.). 88-Not Attempted due to Medical Conditions or Safety Concerns. Other Treatment Pt ambulated to gym using quad cane with supervision and assist to manipulate wound vac and tubing. Pt completed 15 mins of arm bike to increase AROM and strengthening UE for daily functional tasks. Pt completed 10 mins of foreword rotation and 5 mins of backward rotation on 15 resistance. Pt took recovery breaks during arm bike exercises due to decreased activity tolerance. After session, pt ambulated back to room using quad cane with supervision. Pt sat on recliner. Call light/phone in reach. All needs met. Education OT Patient Education: Energy conservation (Take resting break if desired.) OT Olive Brine Tester Goals Olive Brine Tester Goals Time Frame: Jul 20, 2020 Eating (QC): 6 Oral Hygiene (QC): 6 Toileting Hygiene (QC): 6 Shower/Bathe Self (QC): 6 Upper Body Dressing (QC): 6 Lower Body Dressing (QC): 6 On/Off Footwear (QC): 6 Additional Goals: 1-Demonstrate ADL Tasks, 2-Verbalize Understanding, 3- ImproveStrength/Fern 1=Demonstrate adherence to instructed precautions during ADL tasks. 2=Patient will verbalize/demonstrate understanding of assistive devices/modifications for ADL. 3=Patient will improve strength/tolerance for activity to enable patient to perform ADL's. OT Education/Plan Problem List/Assessment Assessment: Decreased UE Strength, Impaired I ADL's, Impaired Self-Care Skills, Restricted Funct UE ROM Discharge Recommendations Plan/Recommendations: Continue POC Treatment Plan/Plan of Care Patient would benefit from OT for education, treatment and training to promote independence in ADL's, mobility, safety and/or upper extremity function for ADL's. Plan of Care: ADL Retraining, Concurrent Therapy, Functional Mobility, Group Exercise/Act as Ind, UE Funct Exercise/Act Treatment Duration: Jul 20, 2020 Frequency: At least 5 of 7 days/Wk (IRF) Estimated Hrs Per Day: 1.5 hours per day Agreement: Yes Rehab Potential: Good Time/GCodes Start Time: 13:00 Stop Time: 13:30 Total Time Billed (hr/min): 30 Billed Treatment Time 1 visit- EX 2 (30 mins) LEYDA HOBSON Jul 16, 2020 14:10
--- NOTE | 2020-07-16 15:38 | Physical Therapy Daily Note ---
PT Daily Note-Current Subjective Pt sitting in recliner upon arrival. Pt agrees to PT. Pain Numeric Pain Scale: 3 Location: Incisional Location Body Site: Abdomen Pain Description: Ache Mental Status Patient Orientation: Person, Place, Time, Situation Attachments: Other-See Comments (Wound Vac.) Transfers SCALE: Activities may be completed with or without assistive devices. 4-Sdblzhqfee-tuoydyo completes the activity by him/herself with no assistance from a helper. 5-Set-up or Clean-up Assistance-helper sets up or cleans up; patient completes activity. [place] assists only prior to or following the activity. 4-Supervision or Touching Assistance-helper provides verbal cues and/or touching/steadying and/or contact guard assistance as patient completes activity. Assistance may be provided throughout the activity or intermittently. 3-Partial/Moderate Assistance-helper does LESS THAN HALF the effort. [place] lifts, holds or supports trunk or limbs, but provides less than half the effort. 2-Substantial/Maximal Assistance-helper does MORE THAN HALF the effort. [place] lifts or holds trunk or limbs and provides more than half the effort. 8-Daaruyhet-vlycsw does ALL the effort. Patient does none of the effort to complete the activity. Or, the assistance of 2 or more helpers is required for the patient to complete the activity. If activity was not attempted, code reason: 7-Patient Refused. 9-Not Applicable-not attempted and the patient did not perform the activity before the current illness, exacerbation or injury. 10-Not Attempted due to Environmental Limitations-(lack of equipment, weather restraints, etc.). 88-Not Attempted due to Medical Conditions or Safety Concerns. Sit to Stand (QC): 5 Toilet Transfer (QC): 5 Weight Bearing Right Lower Extremity: Right Weight Bearing/Tolerated Left Lower Extremity: Left Weight Bearing/Tolerated Gait Training Does the Patient Walk?: Yes Distance: 450' Walk 10 feet (QC): 5 Walk 50 ft with 2 Turns(QC): 5 Walk 150 ft (QC): 5 Gait Persons Needed: 1 Gait Assistive Device: Cane Large Base Quad Wheelchair Training Does the Pt Use a Wheelchair?: No Treatments Pt transfers to standing and amb. extended distance in hallway before returning to room to use restroom. Pt states will take a minute so Nursing notified and pt will pull call light. Assessment Current Status: Good Progress Pt breezy. tx well and is improving with strength and mobility. PT Short Term Goals Short Term Goals Time Frame: Jul 11, 2020 Sit to lyin Lying to sitting on side of be: 4 Sit to stand: 5 Walk 150 feet: 4 4 steps: 4 PT Mcfp Goals Elect Equip Maint Eng Goals PT Mcfp Goals Time Frame: Jul 22, 2020 Roll Left & Right (QC): 6 Sit to Lying (QC): 6 Lying-Sitting on Side/Bed(QC): 6 Sit to Stand (QC): 6 Chair/Vxs-yc-Haljv Xfer(QC): 6 Toilet Transfer (QC): 6 Car Transfer (QC): 6 Does the Patient Walk: Yes Walk 10 feet (QC): 6 Walk 50ft with 2 Turns (QC): 6 Walk 150 ft (QC): 6 Walking 10ft on Uneven Surface: 6 1 Step (curb) (QC): 6 4 Steps (QC): 6 12 Steps (QC): 4 Picking up an Object (QC): 4 Wheel 50 feet with 2 turns (QC: 9 Wheel 150 feet: 9 PT Plan Problem List Problem List: Activity Tolerance Treatment/Plan Treatment Plan: Continue Plan of Care Treatment Plan: Bed Mobility, Education, Functional Activity [place], Functional Strength, Group Therapy, Gait, Safety, Therapeutic Exercise, Transfers Treatment Duration: Jul 22, 2020 Frequency: At least 5 of 7 days/Wk (IRF) Estimated Hrs Per Day: 1.5 hours per day Patient and/or Family Agrees t: Yes Safety Risks/Education Patient Education: Gait Training, Correct Positioning, Safety Issues Teaching Recipient: Patient Teaching Methods: Discussion Response to Teaching: Verbalize Understanding Time/GCodes Time In: 1400 Time Out: 1430 Total Billed Treatment Time: 30 Total Billed Treatment 1, GT (20m) & FA (10m) PARTH TONEY OUTREACH AND EDUCATION SOCIAL WORKER Jul 16, 2020 15:38
[2020-07-16 16:30] VITALS: BP 141/87
[2020-07-16] MEDS: ENOXAPARIN 40 MG/0.4 ML (LOVENOX) SYR SC SCH (18:15)
[2020-07-17 06:34] VITALS: BP 170/89
[2020-07-17] MEDS: lisINopril 20 MG (PRINIVIL) TABLET PO SCH ×2 (07:08→21:01)
[2020-07-17] MEDS: meTOprolol SUCCINATE 100 MG (TOPROL XL) TAB PO SCH (07:09)
[2020-07-17] MEDS: HYDROcodone/APAP 5 MG/325 MG (LORTAB) TAB PO PRN ×2 (08:16→18:04)
[2020-07-17 09:44] VITALS: BP 154/70
--- NOTE | 2020-07-17 10:32 | PM&R Progress Note ---
Subjective HPI/CC On Admission Date Seen by Provider: Jul 17, 2020 Time Seen by Provider: 10:40 Subjective/Events-last exam 07/17/20: Wound vac changed MWF BM++ Cardiology consulted for elevated BP 07/16/20: Wound vac changed one hour after pain pill given which is helping a great deal Pain is overall doing well Bowels are moving today Wound is much improved on her abdomen Overall progressing nicely 07/15/20: Patient has some loose stools which we will continue Changing wound VAC every Monday and Monday Feels like she is making some progress No falls reported 07/14/20: Bowels moved yesterday No major issues Wound vac changed every Monday, Monday and Monday Discharge at the end of the week hopefully 07/13/20: Hgb stable at 8.2, potassium 3.5 Redness around sutures will inquire with Dr. Cardona about removing them No picc line will be needed since we will shift to oral pain medication an hour before the wound vac change Lisinopril will be added for elevated BP 07/12/20: Patient feels good Regular diet tolerated No pain is reported except when wound vac changed Labs due tomorrow 07/11/20: Patient doing well Regular diet tolerated well Wound vac MWF Abx will be changed to PO since IV went bad and can't replace due to poor access 07/10/20: Changed wound vac and that will be done Monday, Monday and Monday Good healing Bowels are loose but that is a chronic issue Participating in therapy 07/09/20: Pt reports abdominal pain where the wound vac is Bowels are still loose and watery Overall feels like she is doing pretty good otherwise Chronic debility is improving 07/08/20: Needs pain medication before wound vac change Overall feels pretty good Eating and drinking well Overall progressing nicely 07/07/20: WBC 13.4 down from 16 Watery diarrhea Buttpaste ordered for ramos-area Lortab taken this morning Checked meds and labs Reviewed therapy notes Conferred with dental hygiene teacher of Systems General: Fatigue, Malaise Gastrointestinal: Abdominal Pain Objective Exam Vital Signs Vital Signs Date Time Temp Pulse Resp B/P (MAP) Pulse Ox O2 Delivery O2 Flow Rate FiO2 07/17/20 16:30 35.8 89 14 135/81 (99) 97 Room Air Capillary Refill : Less Than 3 Seconds General Appearance: No Apparent Distress, Chronically ill HEENT: PERRL/EOMI, Normal ENT Inspection, Pharynx Normal Neck: Full Range of Motion, Normal Inspection, Non Tender, Supple Respiratory: Chest Non Tender, Lungs Clear, Normal Breath Sounds, No Accessory Muscle Use, No Respiratory Distress, Decreased Breath Sounds Cardiovascular: Regular Rate, Rhythm, No Gallop, No JVD, No Murmur, Normal Peripheral Pulses Gastrointestinal: Normal Bowel Sounds, No Organomegaly, No Pulsatile Mass, Soft, Tenderness, Other (wound vac in place) Back: Normal Inspection, No CVA Tenderness, No Vertebral Tenderness Extremity: Normal Capillary Refill, Normal Inspection, Normal Range of Motion, Non Tender, No Calf Tenderness, Pedal Edema Neurologic/Psychiatric: Alert, Oriented x3, No Motor/Sensory Deficits, Normal Mood/Affect, 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 FIM Transfers Therapy Code Descriptions/Definitions Functional [place] Measure: 0=Not Assessed/NA 4=Minimal Assistance 1=Total Assistance 5=Supervision or Setup 2=Maximal Assistance 6=Modified [place] 3=Moderate Assistance 7=Complete IndependenceSCALE: Activities may be completed with or without assistive devices. 8-Csaeymyyot-jiwebek completes the activity by him/herself with no assistance from a helper. 5-Set-up or Clean-up Assistance-helper sets up or cleans up; patient completes activity. [place] assists only prior to or following the activity. 4-Supervision or Touching Assistance-helper provides verbal cues and/or touching/steadying and/or contact guard assistance as patient completes activity. Assistance may be provided throughout the activity or intermittently. 3-Partial/Moderate Assistance-helper does LESS THAN HALF the effort. [place] lifts, holds or supports trunk or limbs, but provides less than half the effort. 2-Substantial/Maximal Assistance-helper does MORE THAN HALF the effort. [place] lifts or holds trunk or limbs and provides more than half the effort. 3-Dqousetsv-nxmryu does ALL the effort. Patient does none of the effort to complete the activity. Or, the assistance of 2 or more helpers is required for the patient to complete the activity. If activity was not attempted, code reason: 7-Patient Refused. 9-Not Applicable-not attempted and the patient did not perform the activity before the current illness, exacerbation or injury. 10-Not Attempted due to Environmental Limitations-(lack of equipment, weather restraints, etc.). 88-Not Attempted due to Medical Conditions or Safety Concerns. Roll Left to Right (QC): 6 Sit to Lying (QC): 6 Sit to Stand (QC): 5 Chair/Qde-au-[place]zyuw Xfer(QC): 6 Car Transfer (QC): 4 Gait Training Does the Patient Walk?: Yes Distance: 450' Walk 10 feet (QC): 5 Walk 50 ft with 2 Turns(QC): 5 Walk 150 ft (QC): 5 Walking 10ft/uneven surface-QC: 0 (will assess at follow up visit) Gait Persons Needed: 1 Gait Assistive Device: Cane Large Base Quad Wheelchair Training Does the Pt Use a Wheelchair?: No Wheel 50 ft with 2 turns (QC): 9 Wheel 150 ft (QC): 9 Stair Training Stair Training: Handrails/: 1 handrail, uses cane #of Steps: 1 1 Step (curb) (QC): 4 4 Steps (QC): 0 12 Steps (QC): 88 Balance Picking up an Object (QC): 88 ADL-Treatment Eating (QC): 6 (Pt reports having no difficulty eating lunch) Oral Hygiene (QC): 6 (Pt completed sitting at sink.) Bathing Location: L Arm, R Arm, L Upper Leg, R Upper Leg, L Lower Leg (including foot), R Lower Leg (including foot), Chest, Perineal Area Shower/Bathe Self (QC): 4 Upper Body Dressing (QC): 5 (After set up, pt able to don/doff shirt by self.) Lower Body Dressing (QC): 5 (After set up, pt able to complete lower body dressing by self.) On/Off Footwear (QC): 3 (Assist to don jimmie hose, attempted sock aide. 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 Anasarca hx Hirsutism Poor albumin level improved h/o Ascites s/p paracentesis just bloody serous NGTD Anemia s/p transfusions 2 units 03/17/20 Situational depression Plan: IRF protocol Continue treatment plan Appreciate Surgery management 07/07/20: Monitor white count now 13 down from 16 Watery diarrhea monitoring Butt paste as needed Pain medication as needed 07/08/20: Continue changing wound vac Pain medication before wound vac change Continue strengthening from physical therapy Encourage good nutrition 07/09/20: Continue wound vac changes Bowels still loose Supportive care 07/10/20: Maintain wound vac change Monday, Monday, and Monday Good healing Bowels are still a little bit loose Continue aggressive treatment 07/11/20: Surgery to decide about abx since IV went bad Increase PO nutrition 07/12/20: Monitor nutrition Monitor labs Wound vac changed MWF 07/13/20: Inquire with Dr. Cardona regarding redness around sutures cut and cover line worker to pill form of pain medication before wound vac Restart Lisinopril as she takes at home 07/14/20: Maintain bowel regimen Wound vac change Monday, Monday, and Monday Pain control Remove IV today 07/15/20: Monitor pain Wound vac changes Reviewed team conference plans 07/16/20: Pain management Fall risk Wound vac management 07/17/20: Wound vac changes Pain control (1) Debility (2) Evisceration of bowel Status: Acute (3) Surgical wound dehiscence Status: Acute (4) Hypertensive emergency Status: Acute (5) Hypertension Status: Chronic (6) Hyperlipidemia Status: Chronic (7) Coronary artery disease Status: Chronic (8) Abdominal pain Status: Acute (9) Anasarca (10) Anemia (11) Hirsutism (12) Leukocytosis SESAR BEEBE DO Jul 17, 2020 10:32
--- NOTE | 2020-07-17 11:07 | Occupational Ther Daily Note ---
OT Current Status-Daily Note Subjective Pt sitting at chair. Requested to take a shower. No c/o of pain. Mental Status/Objective Attachments: Other-See Comments wound vac ADL-Treatment Pt sit to stand from chair at sink then ambulated to shower bench for shower using quadcane, supervision. OT covered wound. Pt able to wash all body parts using shower bench, grabbar and hand held shower. Pt ambulated back to recliner. Call light/phone in reach. All needs met. Therapy Code Descriptions/Definitions Functional [place] Measure: 0=Not Assessed/NA 4=Minimal Assistance 1=Total Assistance 5=Supervision or Setup 2=Maximal Assistance 6=Modified [place] 3=Moderate Assistance 7=Complete IndependenceSCALE: Activities may be completed with or without assistive devices. 9-Qxutttkyey-tpkdggi completes the activity by him/herself with no assistance from a helper. 5-Set-up or Clean-up Assistance-helper sets up or cleans up; patient completes activity. [place] assists only prior to or following the activity. 4-Supervision or Touching Assistance-helper provides verbal cues and/or touching/steadying and/or contact guard assistance as patient completes activity. Assistance may be provided throughout the activity or intermittently. 3-Partial/Moderate Assistance-helper does LESS THAN HALF the effort. [place] lifts, holds or supports trunk or limbs, but provides less than half the effort. 2-Substantial/Maximal Assistance-helper does MORE THAN HALF the effort. [place] lifts or holds trunk or limbs and provides more than half the effort. 7-Ygrthbwbj-advysi does ALL the effort. Patient does none of the effort to complete the activity. Or, the assistance of 2 or more helpers is required for the patient to complete the activity. If activity was not attempted, code reason: 7-Patient Refused. 9-Not Applicable-not attempted and the patient did not perform the activity before the current illness, exacerbation or injury. 10-Not Attempted due to Environmental Limitations-(lack of equipment, weather restraints, etc.). 88-Not Attempted due to Medical Conditions or Safety Concerns. Oral Hygiene (QC): 6 (Completed oral hygiene sitting at sink independently.) Shower/Bathe Self (QC): 6 Upper Body Dressing (QC): 5 (After set up, pt able to don shirt by self.) Lower Body Dressing (QC): 5 (After set up, pt able to complete lower body dressing) On/Off Footwear: 3 (Assist to don jimmie hose. After set up, pt able to don socks byself) Education OT Patient Education: Safety issues Teaching Recipient: Patient Teaching Methods: Discussion Response to Teaching: Return Demonstration OT Halfway Goals Halfway Goals Time Frame: Jul 20, 2020 Eating (QC): 6 Oral Hygiene (QC): 6 Toileting Hygiene (QC): 6 Shower/Bathe Self (QC): 6 Upper Body Dressing (QC): 6 Lower Body Dressing (QC): 6 On/Off Footwear (QC): 6 Additional Goals: 1-Demonstrate ADL Tasks, 2-Verbalize Understanding, 3- ImproveStrength/Fern 1=Demonstrate adherence to instructed precautions during ADL tasks. 2=Patient will verbalize/demonstrate understanding of assistive devices/modifications for ADL. 3=Patient will improve strength/tolerance for activity to enable patient to perform ADL's. OT Education/Plan Problem List/Assessment Assessment: Decreased UE Strength, Impaired Funct Balance, Impaired I ADL's, Impaired Self-Care Skills, Restricted Funct UE ROM Discharge Recommendations Plan/Recommendations: Continue POC Treatment Plan/Plan of Care Patient would benefit from OT for education, treatment and training to promote independence in ADL's, mobility, safety and/or upper extremity function for ADL's. Plan of Care: ADL Retraining, Concurrent Therapy, Functional Mobility, Group Exercise/Act as Ind, UE Funct Exercise/Act Treatment Duration: Jul 20, 2020 Frequency: At least 5 of 7 days/Wk (IRF) Estimated Hrs Per Day: 1.5 hours per day Agreement: Yes Rehab Potential: Good Time/GCodes Start Time: 10:00 Stop Time: 11:00 Total Time Billed (hr/min): 60 Billed Treatment Time 1 visit ADL 4 (60 mins) LEYDA HOBSON Jul 17, 2020 11:07
--- NOTE | 2020-07-17 11:12 | Consultation-Cardiology ---
HPI-Cardiology Cardiology Consultation: Date of Consultation 07/17/20 Time Seen by a Provider: 11:00 Date of Admission 07/06/2020 Attending Physician Anali Hackett DO Admitting Physician [place] Consulting Physician Hipolito Crump MD HPI: Chief Complaint: Uncontrolled hypertension Ms. Ray is a 55 year old female who underwent ileostomy reversal on Jul 04, [address] De Oliveira. She was then transferred to [facility] for strengthening. We have been consulted for blood pressure management. She reports this morning when they woke her up to check her BP she was having a dream that she was late for starting [employer] and was rushing around. She states the BP cuff pinched her arm and caused her discomfort. She states she was anxious about having her wound vac changed out this morning as well and believes this may have contributed to her elevated BP. She denies any c/o CP, palpitations, dyspnea, syncope or near syncope. Review of Systems-Cardiology All Other Systems Reviewed Negative Unless Noted: Yes BWD-Nkswqt-Yvgles Hx Patient Social History Marrital Status: single Employed/Student: unemployed Alcohol Use: Denies Use Recreational Drug Use: No Smoking Status: Never a Smoker 2nd Hand Smoke Exposure: No Recent Foreign Travel: No Physical Abuse Screen: No Sexual Abuse: No Past Medical History PMH As described under Assessment. Family Medical History Family Medical History: No fam h/o early CAD reported or found in records Family History: Cardiovascular disease 19 FATHER Hypertension 19 MOTHER Allergies and Home Medications Allergies Coded Allergies: No Known Drug Allergies (Unverified , 11/11/19) Home Medications Alprazolam 0.25 Mg Tablet, 0.25 MG PO Q8H PRN for ANXIETY, (Reported) Lisinopril 20 Mg Tablet, 20 MG PO BID, (Reported) Metoprolol Tartrate 100 Mg Tablet, 100 MG PO BID, (Reported) Nitrofurantoin Macrocrystal 50 Mg Capsule, 50 MG PO Q6H Prescribed by: SHEILA DE OLIVEIRA on 07/02/20 0946 Oxycodone HCl 5 Mg Capsule, 5 MG PO Q4H PRN for PAIN-MODERATE (5-7), (Reported) Pantoprazole Sodium 40 Mg Tablet.dr, 40 MG PO DAILY, (Reported) Patient Home Medication List Home Medication List Reviewed: Yes Physical Exam-Cardiology Physical Exam Vital Signs/I&O 07/21/20 03:27 Temp 36.4 Pulse 83 Resp 16 B/P (MAP) 146/72 (96) Pulse Ox 99 O2 Delivery Room Air 07/21/20 00:00 Intake Total 1381 ml Balance 1381 ml Capillary Refill : Less Than 3 Seconds Constitutional: AAO x 3, well-developed, well-nourished HEENT: PERRL; No hard of hearing Neck: carotid pulses are 2 + bilaterally Respiratory: No accessory muscle use, No respiratory distress; chest expansion is symmetric, chest is bilaterally symmetric, lungs clear to auscultation Cardiovascular: regular rate-rhythm; No JVD; S1 and S2 Gastrointestinal: other (post op abdomen with wound vac in place) Extremities: no lower extremity edema bilateral Neurologic/Psychiatric: grossly intact (moves all extremities) Skin: No rash on exposed areas, No ulcerations on exposed areas A/P-Cardiology Assessment/Admission Diagnosis Uncontrolled hypertension CAD, h/o cor stenting at [facility] in Oct 2019 (to treat angina, not to treat [place], according to the patient). Last card cath on 03/05/20: patent stents in the mid left circumflex and the mid right coronary arteries. There is moderate diffuse disease of all coronary arteries. There is moderately severe diffuse disease of the distal left anterior descending. A small caliber obtuse marginal has 70% to 80% ostial stenosis. Normal left ventricular end-diastolic pressure. Echo of 03/05/20: LVEF 60-65%, mild to mod TR, RVSP 35-40 mmHg, mild dilatation of LA S/p colectomy and ileostomy for intestinal obstruction. S/P ileostomy reversal bowel evisceration with closure of abdomen and placement of phasix mesh (hernia repair) by Dr. De Oliveira Discussion and Recomendations BP not well controlled, previously taking 100mg metoprolol tartrate, but is now taking metoprolol succinate for BP Add Norvasc for BP control Continue all other medications D/t known h/o CAD as documented above we advise resumption of ASA and Plavix if ok from surgical stand point Monitor lab from time to time We would like to thank medical services for this consult Further recs will be based on her hospital course BENJI WILLOUGHBY Jul 17, 2020 11:12
[2020-07-17 12:00] VITALS: BP 157/75
--- NOTE | 2020-07-17 12:00 | NUR ---
DR BEEBE HERE WITH NEW ORDERS ADDRESSING HYPERTENSION. CARDIAC CONSULT. DUGLAS CAIN WITH NEW ORDERS. PATIENT EDUCATED ON NEW PAIN MEDICATIONS. COTN TO MONITOR. Addendum: 07/20/20 at 2125 by PARTH NG RN NEW CARDIAC MEDICATIONS NOT PAIN
--- NOTE | 2020-07-17 12:04 | Physical Therapy Daily Note ---
PT Daily Note-Current Subjective Pt. agrees to Rx. Feels she is improving, "its just this you know" pointing to her abdomen and wound vacc Pain Location: No Pain Reported Mental Status Patient Orientation: Normal For Age Attachments: Other-See Comments (wound vacc) Transfers SCALE: Activities may be completed with or without assistive devices. 4-Hvaqfmmtml-hozgvxj completes the activity by him/herself with no assistance from a helper. 5-Set-up or Clean-up Assistance-helper sets up or cleans up; patient completes activity. [place] assists only prior to or following the activity. 4-Supervision or Touching Assistance-helper provides verbal cues and/or touching/steadying and/or contact guard assistance as patient completes activity. Assistance may be provided throughout the activity or intermittently. 3-Partial/Moderate Assistance-helper does LESS THAN HALF the effort. [place] lifts, holds or supports trunk or limbs, but provides less than half the effort. 2-Substantial/Maximal Assistance-helper does MORE THAN HALF the effort. [place] lifts or holds trunk or limbs and provides more than half the effort. 9-Xqlfnvqdx-ohmdmg does ALL the effort. Patient does none of the effort to complete the activity. Or, the assistance of 2 or more helpers is required for the patient to complete the activity. If activity was not attempted, code reason: 7-Patient Refused. 9-Not Applicable-not attempted and the patient did not perform the activity before the current illness, exacerbation or injury. 10-Not Attempted due to Environmental Limitations-(lack of equipment, weather restraints, etc.). 88-Not Attempted due to Medical Conditions or Safety Concerns. Roll Left & Right (QC): 6 Sit to Lying (QC): 6 Lying to Sitting/Side of Bed(Q: 6 Sit to Stand (QC): 6 Chair/Pym-pn-Cihtl Xfer(QC): 6 Toilet Transfer (QC): 6 Weight Bearing Right Lower Extremity: Right Weight Bearing/Tolerated Left Lower Extremity: Left Weight Bearing/Tolerated Gait Training Does the Patient Walk?: Yes Walk 10 feet (QC): 6 Walk 50 ft with 2 Turns(QC): 6 Walk 150 ft (QC): 6 Gait Persons Needed: 1 (for [place] only) Gait Assistive Device: Cane Large Base Quad slow, somewhat flexed at trunk, even step length no parish LOB Stair Training Stair Training: Handrails/: 1 handrail (cane in other hand) #of Steps: 8 4 Steps (QC): 5 Stairs: Pattern: Reciprocal manages all in safe manner Exercises Supine Ex: Bridging, Ankle pumps, Quad Set, Rolling, Glut sets, Lower trunk rotation, Heel Slides, Knee to chest, Short Arc Quads, Scooting, Straight leg raise, Hip abd/add (side and sup) Supine Reps: 15 Seated Therapy Exercises: Ankle pumps, Sit to stand, Long arc quads, Hip flexion Seated Reps: 12 Standing: Hip Abduction, Hamstring curls, Heel/toe raises, Mini squats Standing Reps: 10 NuStep Minutes: 10 NuStep Workload: 5 Assessment Current Status: Good Progress pt. progressing well, could be up ad roro except for [place] equip PT Short Term Goals Short Term Goals Time Frame: Jul 11, 2020 Sit to lyin Lying to sitting on side of be: 4 Sit to stand: 5 Walk 150 feet: 4 4 steps: 4 PT Clicker Operator Goals Fpc Goals PT Fpc Goals Time Frame: Jul 22, 2020 Roll Left & Right (QC): 6 Sit to Lying (QC): 6 Lying-Sitting on Side/Bed(QC): 6 Sit to Stand (QC): 6 Chair/Jxz-kp-Glyeb Xfer(QC): 6 Toilet Transfer (QC): 6 Car Transfer (QC): 6 Does the Patient Walk: Yes Walk 10 feet (QC): 6 Walk 50ft with 2 Turns (QC): 6 Walk 150 ft (QC): 6 Walking 10ft on Uneven Surface: 6 1 Step (curb) (QC): 6 4 Steps (QC): 6 12 Steps (QC): 4 Picking up an Object (QC): 4 Wheel 50 feet with 2 turns (QC: 9 Wheel 150 feet: 9 PT Plan Treatment/Plan Treatment Plan: Continue Plan of Care Treatment Plan: Bed Mobility, Education, Functional Activity Fern, Functional Strength, Group Therapy, Gait, Safety, Therapeutic Exercise, Transfers Treatment Duration: Jul 22, 2020 Frequency: At least 5 of 7 days/Wk (IRF) Estimated Hrs Per Day: 1.5 hours per day Patient and/or Family Agrees t: Yes Safety Risks/Education Patient Education: Gait Training, Transfer Techniques, Steps, Correct Positioning, Disease Process, Safety Issues Teaching Recipient: Patient Teaching Methods: Demonstration, Discussion Response to Teaching: Verbalize Understanding, Return Demonstration, Reinforcement Needed Time/GCodes Time In: 1100 Time Out: 1200 Total Billed Treatment Time: 60 Total Billed Treatment 1,GT15m,EX35m,FA10m AN CHUN PUBLIC WORKS MANAGER Jul 17, 2020 12:04
[2020-07-17] MEDS ORDERED: amLODIPine 5 MG (NORVASC) TAB PO NR (12:30)
--- NOTE | 2020-07-17 14:42 | Therapy Group Daily Note ---
Therapy Daily Group Note Patient Education Topic Other List Below (preparing for independence, TRFs and mobility) Exercises LE Seated Exercise, UE Exercise Session Ratio (pt:therapist): 4:1 Goal of Session: Memory Strategies, UE/LE Strengthing, Safety with Transfers Goal Met for this Session: Yes Pt Benefit of Group: F/U Use of Strategies @Home, Increased Functional Safety, Increased Functional Strength, Socialization Other/Notes Pt. participated in group PT OT session . Pt. came and went ambulating using Qcane and some assist for wound vacc. Pts. reviewed the memory activity of last group session recalling 5 items, all successful. Monday therapy was explained. Bed and chair TRFs were demonstrated and explained in detail. The goal of working toward independence and home was discussed. Seated U&L extremity therex was done with pts leading and demonstrating from written illustration cards. Pt. to room after with all needs met, kaur at hand Start Time: 13:00 Stop Time: 14:15 Total Billed Treatment Time: 75 Total Billed Treatment 1,GRP AN CHUN ASSISTANT BASKETBALL COACH Jul 17, 2020 14:42
[2020-07-17] MEDS ORDERED: ASPIRIN 81 MG CHEW (CHILDREN'S ASA) PO NR (15:00)
--- NOTE | 2020-07-17 15:08 | Consultation-Cardiology ---
HPI-Cardiology Cardiology Consultation: Date of Consultation 07/17/20 Time Seen by a Provider: 14:30 Date of Admission Attending Physician Anali Hackett DO Admitting Physician [place] Consulting Physician VI KO MD, MA, FACP, FACC, [facility], CCDS HPI: Chief Complaint: Reason for Cardiology consultation: Uncontrolled hypertension, h/o CAD HPI Ms. Ray is a 55 year old female who underwent ileostomy reversal on Jul 04, [address] De Oliveira. She was then transferred to [facility] for strengthening. We have been consulted for blood pressure management. She reports this morning when they woke her up to check her BP she was having a dream that she was late for starting [employer] and was rushing around. She states the BP cuff pinched her arm and caused her discomfort. She states she was anxious about having her wound vac changed out this morning as well and believes this may have contributed to her elevated BP. She denies any c/o CP, palpitations, dyspnea, syncope or near syncope. Review of Systems-Cardiology Review of Systems Constitutional: No weight loss, No weight gain Eyes: No vision change Ears/Nose/Throat: No ear discharge, No nasal drainage, No recent hearing loss Respiratory: As described under HPI Cardiovascular: As described under HPI Gastrointestinal: No diarrhea, No vomiting Genitourinary: No dysuria, No hematuria, No urine frequency changes Musculoskeletal: back pain (chronic) Skin: No rash on exposed areas, No ulcerations on exposed areas Psychiatric/Neurological: No focal weakness, No syncope All Other Systems Reviewed Negative Unless Noted: Yes TWM-Dlpefp-Kephgo Hx Patient Social History Marrital Status: single Employed/Student: unemployed Alcohol Use: Denies Use Recreational Drug Use: No Smoking Status: Never a Smoker 2nd Hand Smoke Exposure: No Recent Foreign Travel: No Physical Abuse Screen: No Sexual Abuse: No Past Medical History PMH As described under Assessment. Family Medical History Family Medical History: No fam h/o early CAD reported or found in records Family History: Cardiovascular disease 19 FATHER Hypertension 19 MOTHER Allergies and Home Medications Allergies Coded Allergies: No Known Drug Allergies (Unverified , 11/11/19) Home Medications Alprazolam 0.25 Mg Tablet, 0.25 MG PO Q8H PRN for ANXIETY, (Reported) Lisinopril 20 Mg Tablet, 20 MG PO BID, (Reported) Metoprolol Tartrate 100 Mg Tablet, 100 MG PO BID, (Reported) Nitrofurantoin Macrocrystal 50 Mg Capsule, 50 MG PO Q6H Prescribed by: SHEILA DE OLIVEIRA on 07/02/20 0946 Oxycodone HCl 5 Mg Capsule, 5 MG PO Q4H PRN for PAIN-MODERATE (5-7), (Reported) Pantoprazole Sodium 40 Mg Tablet.dr, 40 MG PO DAILY, (Reported) Patient Home Medication List Home Medication List Reviewed: Yes Physical Exam-Cardiology Physical Exam Vital Signs/I&O 07/17/20 07/17/20 07/17/20 07/17/20 06:34 07:18 09:44 12:00 Temp 35.4 Pulse 98 85 Resp 18 B/P (MAP) 170/89 (116) 154/70 (98) 157/75 (102) Pulse Ox 97 O2 Delivery Room Air Room Air 07/17/20 00:00 Intake Total 880 ml Balance 880 ml Capillary Refill : Less Than 3 Seconds Constitutional: AAO x 3, well-developed, well-nourished HEENT: PERRL; No hard of hearing Neck: carotid pulses are 2 + bilaterally Respiratory: No accessory muscle use, No respiratory distress; chest expansion is symmetric, chest is bilaterally symmetric, lungs clear to auscultation Cardiovascular: regular rate-rhythm; No JVD; S1 and S2 Gastrointestinal: other (post op abdomen with wound vac in place) Extremities: no lower extremity edema bilateral Neurologic/Psychiatric: grossly intact (moves all extremities) Skin: No rash on exposed areas, No ulcerations on exposed areas A/P-Cardiology Assessment/Admission Diagnosis Uncontrolled hypertension CAD, h/o cor stenting at [facility] in Oct 2019 (to treat angina, not to treat [place], according to the patient). Last card cath on 03/05/20: patent stents in the mid left circumflex and the mid right coronary arteries. There is moderate diffuse disease of all coronary arteries. There is moderately severe diffuse disease of the distal left anterior descending. A small caliber obtuse marginal has 70% to 80% ostial stenosis. Normal left ventricular end-diastolic pressure. Echo of 03/05/20: LVEF 60-65%, mild to mod TR, RVSP 35-40 mmHg, mild dilatation of LA S/p colectomy and ileostomy for intestinal obstruction. S/P ileostomy reversal bowel evisceration with closure of abdomen and placement of phasix mesh (hernia repair) by Dr. De Oliveira Discussion and Recomendations BP not well controlled, previously taking 100mg metoprolol tartrate, but is now taking metoprolol succinate for BP Add Norvasc for BP control Continue all other medications D/t known h/o CAD, as documented above, we advise resumption of ASA and Plavix if ok from surgical stand point Monitor lab from time to time We would like to thank Medical services for this consult Further recs will be based on her hospital course VI KO MD FACP FACC CCDS Jul 17, 2020 15:08
[2020-07-17 16:30] VITALS: BP 135/81
--- NOTE | 2020-07-17 16:44 | NUR ---
CM/SS CONCURRENT DOCUMENTATION Completed I wound vac jasbir program application. Will provide to RN/NTarethar for processing on Monday. Patient's discharge date not yet set, pursuing vac as part of timely planning phase.
[2020-07-17] MEDS: ENOXAPARIN 40 MG/0.4 ML (LOVENOX) SYR SC SCH (17:55)
[2020-07-18] MEDS: HYDROcodone/APAP 5 MG/325 MG (LORTAB) TAB PO PRN ×3 (01:17→18:12)
[2020-07-18 06:00] VITALS: BP 142/72
[2020-07-18 07:32] LABS: HEMOGLOBIN 9.7 G/DL (11.5-16.0); MEAN PLATELET VOLUME 8.7 FL (7.4-10.4); RED CELL DISTRIBUTION WIDTH 15.6 % (10.0-14.5); WHITE BLOOD COUNT 6.1 10^3/uL (4.3-11.0)
[2020-07-18 07:47] LABS: BUN/CREATININE RATIO 14; CALCIUM 8.5 MG/DL (8.5-10.1); CARBON DIOXIDE 24 MMOL/L (21-32); CHLORIDE 104 MMOL/L (98-107); CREATININE SERUM 0.66 MG/DL (0.60-1.30); GFR ESTIMATED > 60; GLUCOSE 95 MG/DL (70-105); POTASSIUM 4.2 MMOL/L (3.6-5.0); SODIUM 138 MMOL/L (135-145)
[2020-07-18 09:26] VITALS: BP 127/80
[2020-07-18] MEDS: amLODIPine 5 MG (NORVASC) TAB PO SCH (09:27)
[2020-07-18] MEDS: ASPIRIN 81 MG CHEW (CHILDREN'S ASA) PO SCH (09:28)
[2020-07-18] MEDS: CLOPIDOGREL 75 MG (PLAVIX) TABLET PO SCH (09:28)
[2020-07-18] MEDS: meTOprolol SUCCINATE 100 MG (TOPROL XL) TAB PO SCH (09:28)
[2020-07-18] MEDS: lisINopril 20 MG (PRINIVIL) TABLET PO SCH ×2 (09:28→20:28)
--- NOTE | 2020-07-18 11:54 | PM&R Progress Note ---
Subjective HPI/CC On Admission Date Seen by Provider: Jul 18, 2020 Time Seen by Provider: 12:00 Subjective/Events-last exam 07/18/20: Patient denies new issues Pain controlled Sutures removed except 1 07/17/20: Wound vac changed MWF BM++ Cardiology consulted for elevated BP 07/16/20: Wound vac changed one hour after pain pill given which is helping a great deal Pain is overall doing well Bowels are moving today Wound is much improved on her abdomen Overall progressing nicely 07/15/20: Patient has some loose stools which we will continue Changing wound VAC every Monday and Monday Feels like she is making some progress No falls reported 07/14/20: Bowels moved yesterday No major issues Wound vac changed every Monday, Monday and Monday Discharge at the end of the week hopefully 07/13/20: Hgb stable at 8.2, potassium 3.5 Redness around sutures will inquire with Dr. Cardona about removing them No picc line will be needed since we will shift to oral pain medication an hour before the wound vac change Lisinopril will be added for elevated BP 07/12/20: Patient feels good Regular diet tolerated No pain is reported except when wound vac changed Labs due tomorrow 07/11/20: Patient doing well Regular diet tolerated well Wound vac MWF Abx will be changed to PO since IV went bad and can't replace due to poor access 07/10/20: Changed wound vac and that will be done Monday, Monday and Monday Good healing Bowels are loose but that is a chronic issue Participating in therapy 07/09/20: Pt reports abdominal pain where the wound vac is Bowels are still loose and watery Overall feels like she is doing pretty good otherwise Chronic debility is improving 07/08/20: Needs pain medication before wound vac change Overall feels pretty good Eating and drinking well Overall progressing nicely 07/07/20: WBC 13.4 down from 16 Watery diarrhea Buttpaste ordered for ramos-area Lortab taken this morning Checked meds and labs Reviewed therapy notes Conferred with flake or shred roll operator of Systems General: Fatigue, Malaise Gastrointestinal: Abdominal Pain Objective Exam Vital Signs Vital Signs Date Time Temp Pulse Resp B/P (MAP) Pulse Ox O2 Delivery O2 Flow Rate FiO2 07/18/20 09:26 127/80 (96) 07/18/20 08:00 Room Air 07/18/20 06:00 36.3 79 18 96 Capillary Refill : Less Than 3 Seconds General Appearance: No Apparent Distress, Chronically ill HEENT: PERRL/EOMI, Normal ENT Inspection, Pharynx Normal Neck: Full Range of Motion, Normal Inspection, Non Tender, Supple Respiratory: Chest Non Tender, Lungs Clear, Normal Breath Sounds, No Accessory Muscle Use, No Respiratory Distress, Decreased Breath Sounds Cardiovascular: Regular Rate, Rhythm, No Gallop, No JVD, No Murmur, Normal Peripheral Pulses Gastrointestinal: Normal Bowel Sounds, No Organomegaly, No Pulsatile Mass, Soft, Tenderness, Other (wound vac in place) Back: Normal Inspection, No CVA Tenderness, No Vertebral Tenderness Extremity: Normal Capillary Refill, Normal Inspection, Normal Range of Motion, Non Tender, No Calf Tenderness, Pedal Edema Neurologic/Psychiatric: Alert, Oriented x3, No Motor/Sensory Deficits, Normal Mood/Affect, accounts receivable supervisor II-XII Norm as Tested, Motor Weakness (generalized) Skin: Normal Color, Warm/Dry Lymphatic: No Adenopathy Results/Procedures Lab Laboratory Tests 07/18/20 07:13 Patient resulted labs reviewed. FIM Transfers Therapy Code Descriptions/Definitions Functional [place] Measure: 0=Not Assessed/NA 4=Minimal Assistance 1=Total Assistance 5=Supervision or Setup 2=Maximal Assistance 6=Modified [place] 3=Moderate Assistance 7=Complete IndependenceSCALE: Activities may be completed with or without assistive devices. 5-Ajqjpajdko-rkcafnl completes the activity by him/herself with no assistance from a helper. 5-Set-up or Clean-up Assistance-helper sets up or cleans up; patient completes activity. [place] assists only prior to or following the activity. 4-Supervision or Touching Assistance-helper provides verbal cues and/or holly bianka/steadying and/or contact guard assistance as patient completes activity. Assistance may be provided throughout the activity or intermittently. 3-Partial/Moderate Assistance-helper does LESS THAN HALF the effort. [place] lifts, holds or supports trunk or limbs, but provides less than half the effort. 2-Substantial/Maximal Assistance-helper does MORE THAN HALF the effort. [place] lifts or holds trunk or limbs and provides more than half the effort. 5-Pdhcbhpxu-tzqvnw does ALL the effort. Patient does none of the effort to complete the activity. Or, the assistance of 2 or more helpers is required for the patient to complete the activity. If activity was not attempted, code reason: 7-Patient Refused. 9-Not Applicable-not attempted and the patient did not perform the activity b efore the current illness, exacerbation or injury. 10-Not Attempted due to Environmental Limitations-(lack of equipment, weather restraints, etc.). 88-Not Attempted due to Medical Conditions or Safety Concerns. Roll Left to Right (QC): 6 Sit to Lying (QC): 6 Sit to Stand (QC): 6 Chair/Mnh-xi-Idiri Xfer(QC): 6 Car Transfer (QC): 4 Gait Training Does the Patient Walk?: Yes Distance: 450' Walk 10 feet (QC): 6 Walk 50 ft with 2 Turns(QC): 6 Walk 150 ft (QC): 6 Walking 10ft/uneven surface-QC: 0 (will assess at follow up visit) Gait Persons Needed: 1 (for [place] only) Gait Assistive Device: Cane Large Base Quad Wheelchair Training Does the Pt Use a Wheelchair?: No Wheel 50 ft with 2 turns (QC): 9 Wheel 150 ft (QC): 9 Stair Training Stair Training: Handrails/: 1 handrail (cane in other hand) #of Steps: 8 1 Step (curb) (QC): 4 4 Steps (QC): 5 12 Steps (QC): 88 Stairs: Pattern: Reciprocal Balance Picking up an Object (QC): 88 ADL-Treatment Eating (QC): 6 (Pt reports having no difficulty eating lunch) Oral Hygiene (QC): 6 (Completed oral hygiene sitting at sink independently.) Bathing Location: L Arm, R Arm, L Upper Leg, R Upper Leg, L Lower Leg (including foot), R Lower Leg (including foot), Chest, Perineal Area Shower/Bathe Self (QC): 6 Upper Body Dressing (QC): 5 (After set up, pt able to don shirt by self.) Lower Body Dressing (QC): 5 (After set up, pt able to complete lower body dressing) On/Off Footwear (QC): 3 (Assist to don jimmie hose. 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 Anasarca hx Hirsutism Poor albumin level improved h/o Ascites s/p paracentesis just bloody serous NGTD Anemia s/p transfusions 2 units 03/17/20 Situational depression Plan: IRF protocol Continue treatment plan Appreciate Surgery management 07/07/20: Monitor white count now 13 down from 16 Watery diarrhea monitoring Butt paste as needed Pain medication as needed 07/08/20: Continue changing wound vac Pain medication before wound vac change Continue strengthening from physical therapy Encourage good nutrition 07/09/20: Continue wound vac changes Bowels still loose Supportive care 07/10/20: Maintain wound vac change Monday, Monday, and Monday Good healing Bowels are still a little bit loose Continue aggressive treatment 07/11/20: Surgery to decide about abx since IV went bad Increase PO nutrition 07/12/20: Monitor nutrition Monitor labs Wound vac changed MWF 07/13/20: Inquire with Dr. Cardona regarding redness around sutures overage shortage and damage clerk to pill form of pain medication before wound vac Restart Lisinopril as she takes at home 07/14/20: Maintain bowel regimen Wound vac change Monday, Monday, and Monday Pain control Remove IV today 07/15/20: Monitor pain Wound vac changes Reviewed team conference plans 07/16/20: Pain management Fall risk Wound vac management 07/17/20: Wound vac changes Pain control 07/18/20: Pain control Increase therapy Fall risk prevention (1) Debility (2) Evisceration of bowel Status: Acute (3) Surgical wound dehiscence Status: Acute (4) Hypertensive emergency Status: Acute (5) Hypertension Status: Chronic (6) Hyperlipidemia Status: Chronic (7) Coronary artery disease Status: Chronic (8) Abdominal pain Status: Acute (9) Anasarca (10) Anemia (11) Hirsutism (12) Leukocytosis SESAR BEEBE DO Jul 18, 2020 11:53
--- NOTE | 2020-07-18 12:47 | Physical Therapy Daily Note ---
PT Daily Note-Current Subjective Pt agreeable. Pt denied pain. Mental Status Patient Orientation: Person, Place, Situation Transfers SCALE: Activities may be completed with or without assistive devices. 8-Kyhjgsrnzj-gopahmi completes the activity by him/herself with no assistance f rom a helper. 5-Set-up or Clean-up Assistance-helper sets up or cleans up; patient completes activity. [place] assists only prior to or following the activity. 4-Supervision or Touching Assistance-helper provides verbal cues and/or touching/steadying and/or contact guard assistance as patient completes activity. Assistance may be provided throughout the activity or intermittently. 3-Partial/Moderate Assistance-helper does LESS THAN HALF the effort. [place] lifts, holds or supports trunk or limbs, but provides less than half the effort. 2-Substantial/Maximal Assistance-helper does MORE THAN HALF the effort. [place] lifts or holds trunk or limbs and provides more than half the effort. 4-Ycsdgbcdk-svetqh does ALL the effort. Patient does none of the effort to complete the activity. Or, the assistance of 2 or more helpers is required for the patient to complete the activity. If activity was not attempted, code reason: 7-Patient Refused. 9-Not Applicable-not attempted and the patient did not perform the activity before the current illness, exacerbation or injury. 10-Not Attempted due to Environmental Limitations-(lack of equipment, weather restraints, etc.). 88-Not Attempted due to Medical Conditions or Safety Concerns. Weight Bearing Right Lower Extremity: Right Weight Bearing/Tolerated Left Lower Extremity: Left Weight Bearing/Tolerated Treatments Pt transfers mod (I). Pt amb with QC x 700ft at steady speed. F/u of wound vacc. CGA-SBA throughout. Pt on toilet post therapy session, nurse aid notified. Assessment Current Status: Excellent Progress Pt progressing nicely with functional mobility. Pt breezy well. PT Short Term Goals Short Term Goals Time Frame: Jul 11, 2020 Sit to lyin Lying to sitting on side of be: 4 Sit to stand: 5 Walk 150 feet: 4 4 steps: 4 PT Senior Care Goals Senior Care Goals PT Jigger Machine Operator Goals Time Frame: Jul 22, 2020 Roll Left & Right (QC): 6 Sit to Lying (QC): 6 Lying-Sitting on Side/Bed(QC): 6 Sit to Stand (QC): 6 Chair/Clk-zs-Nybcg Xfer(QC): 6 Toilet Transfer (QC): 6 Car Transfer (QC): 6 Does the Patient Walk: Yes Walk 10 feet (QC): 6 Walk 50ft with 2 Turns (QC): 6 Walk 150 ft (QC): 6 Walking 10ft on Uneven Surface: 6 1 Step (curb) (QC): 6 4 Steps (QC): 6 12 Steps (QC): 4 Picking up an Object (QC): 4 Wheel 50 feet with 2 turns (QC: 9 Wheel 150 feet: 9 PT Plan Treatment/Plan Treatment Plan: Continue Plan of Care Treatment Plan: Bed Mobility, Education, Functional Activity [place], Functional Strength, Group Therapy, Gait, Safety, Therapeutic Exercise, Transfers Treatment Duration: Jul 22, 2020 Frequency: At least 5 of 7 days/Wk (IRF) Estimated Hrs Per Day: 1.5 hours per day Patient and/or Family Agrees t: Yes Time/GCodes Time In: 810 Time Out: 825 Total Billed Treatment Time: 15 Total Billed Treatment 1, gait 15' MOISÉS EMERSON CPTA Jul 18, 2020 12:47
--- NOTE | 2020-07-18 12:54 | Progress Note - Cardiology ---
Cardiology SOAP Progress Note Subjective: No cp or palp or syncope or shortness of breath at rest Gen weakness improving No n/v/d Objective: I&O/Vital Signs 07/18/20 07/18/20 07/18/20 06:00 08:00 09:26 Temp 36.3 Pulse 79 Resp 18 B/P (MAP) 142/72 (95) 127/80 (96) Pulse Ox 96 O2 Delivery Room Air Room Air 07/18/20 00:00 Intake Total 720 ml Balance 720 ml Constitutional: AAO x 3, well-developed, well-nourished Respiratory: No accessory muscle use, No respiratory distress; chest expansion is symmetric, chest is bilaterally symmetric, lungs clear to auscultation Cardiovascular: regular rate-rhythm; No JVD; S1 and S2 Gastrointestional: other (post op abdomen with wound vac in place) Extremities: no lower extremity edema bilateral Neurologic/Psychiatric: grossly intact (moves all extremities) Skin: No rash on exposed areas, No ulcerations on exposed areas Results/Procedures: Labs Laboratory Tests 07/18/20 07:13: White Blood Count 6.1, Red Blood Count 3.52L, Hemoglobin 9.7L, Hematocrit 30L, Mean Corpuscular Volume 84, Mean Corpuscular Hemoglobin 28, Mean Corpuscular Hemoglobin Concent 33, Red Cell Distribution Width 15.6H, Platelet Count 332, Mean Platelet Volume 8.7, Sodium Level 138, Potassium Level 4.2, Chloride Level 104, Carbon Dioxide Level 24, Anion Gap 10, Blood Urea Nitrogen 9, Creatinine 0.66, Estimat Glomerular Filtration Rate > 60, BUN/Creatinine Ratio 14, Glucose Level 95, Calcium Level 8.5 Laboratory Tests 07/18/20 07:13 A/P: Assessment: Uncontrolled hypertension, now improved CAD, h/o cor stenting at [facility] in Oct 2019 (to treat angina, not to treat DC, according to the patient). Last card cath on 03/05/20: patent stents in the mid left circumflex and the mid right coronary arteries. There is moderate diffuse disease of all coronary arteries. There is moderately severe diffuse disease of the distal left anterior descending. A small caliber obtuse marginal has 70% to 80% ostial stenosis. Normal left ventricular end-diastolic pressure. Echo of 03/05/20: LVEF 60-65%, mild to mod TR, RVSP 35-40 mmHg, mild dilatation of LA S/p colectomy and ileostomy for intestinal obstruction. S/P ileostomy reversal bowel evisceration with closure of abdomen and placement of phasix mesh (hernia repair) by Dr. Ji Plan: Continue current regimen D/t known h/o CAD, as documented above, we advise resumption of ASA and Plavix if ok from surgical stand point Monitor lab from time to time VI KO MD FACP FAC CCDS Jul 18, 2020 12:54
[2020-07-18 18:00] VITALS: BP 161/85
[2020-07-18] MEDS: ENOXAPARIN 40 MG/0.4 ML (LOVENOX) SYR SC SCH (18:11)
[2020-07-19 06:00] VITALS: BP 137/77
[2020-07-19] MEDS: CLOPIDOGREL 75 MG (PLAVIX) TABLET PO SCH (09:53)
[2020-07-19] MEDS: meTOprolol SUCCINATE 100 MG (TOPROL XL) TAB PO SCH (09:53)
[2020-07-19] MEDS: amLODIPine 5 MG (NORVASC) TAB PO SCH (09:53)
[2020-07-19] MEDS: ASPIRIN 81 MG CHEW (CHILDREN'S ASA) PO SCH (09:53)
[2020-07-19] MEDS: lisINopril 20 MG (PRINIVIL) TABLET PO SCH ×2 (09:53→20:38)
[2020-07-19 09:55] VITALS: BP 149/81
--- NOTE | 2020-07-19 10:49 | PM&R Progress Note ---
Subjective HPI/CC On Admission Date Seen by Provider: Jul 19, 2020 Time Seen by Provider: 10:45 Subjective/Events-last exam 07/19/20: Patient doing well No pain reported NO falls Eating well 07/18/20: Patient denies new issues Pain controlled Sutures removed except 1 07/17/20: Wound vac changed MWF BM++ Cardiology consulted for elevated BP 07/16/20: Wound vac changed one hour after pain pill given which is helping a great deal Pain is overall doing well Bowels are moving today Wound is much improved on her abdomen Overall progressing nicely 07/15/20: Patient has some loose stools which we will continue Changing wound VAC every Monday and Monday Feels like she is making some progress No falls reported 07/14/20: Bowels moved yesterday No major issues Wound vac changed every Monday, Monday and Monday Discharge at the end of the week hopefully 07/13/20: Hgb stable at 8.2, potassium 3.5 Redness around sutures will inquire with Dr. Cardona about removing them No picc line will be needed since we will shift to oral pain medication an hour before the wound vac change Lisinopril will be added for elevated BP 07/12/20: Patient feels good Regular diet tolerated No pain is reported except when wound vac changed Labs due tomorrow 07/11/20: Patient doing well Regular diet tolerated well Wound vac MWF Abx will be changed to PO since IV went bad and can't replace due to poor access 07/10/20: Changed wound vac and that will be done Monday, Monday and Monday Good healing Bowels are loose but that is a chronic issue Participating in therapy 07/09/20: Pt reports abdominal pain where the wound vac is Bowels are still loose and watery Overall feels like she is doing pretty good otherwise Chronic debility is improving 07/08/20: Needs pain medication before wound vac change Overall feels pretty good Eating and drinking well Overall progressing nicely 07/07/20: WBC 13.4 down from 16 Watery diarrhea Buttpaste ordered for [place]-area Lortab taken this morning Checked meds and labs Reviewed therapy notes Conferred with coffee sommelier of Systems General: Fatigue, Malaise Objective Exam Vital Signs Vital Signs Date Time Temp Pulse Resp B/P (MAP) Pulse Ox O2 Delivery O2 Flow Rate FiO2 07/19/20 16:29 Room Air 07/19/20 09:55 86 149/81 (103) 07/19/20 06:00 36.6 18 100 Capillary Refill : Less Than 3 Seconds General Appearance: No Apparent Distress, Chronically ill HEENT: PERRL/EOMI, Normal ENT Inspection, Pharynx Normal Neck: Full Range of Motion, Normal Inspection, Non Tender, Supple Respiratory: Chest Non Tender, Lungs Clear, Normal Breath Sounds, No Accessory Muscle Use, No Respiratory Distress, Decreased Breath Sounds Cardiovascular: Regular Rate, Rhythm, No Gallop, No JVD, No Murmur, Normal Peripheral Pulses Gastrointestinal: Normal Bowel Sounds, No Organomegaly, No Pulsatile Mass, Soft, Tenderness, Other (wound vac in place) Back: Normal Inspection, No CVA Tenderness, No Vertebral Tenderness Extremity: Normal Capillary Refill, Normal Inspection, Normal Range of Motion, Non Tender, No Calf Tenderness, Pedal Edema Neurologic/Psychiatric: Alert, Oriented x3, No Motor/Sensory Deficits, Normal Mood/Affect, financial services representative II-XII Norm as Tested, Motor Weakness (generalized) Skin: Normal Color, Warm/Dry Lymphatic: No Adenopathy Results/Procedures Lab Patient resulted labs reviewed. FIM Transfers Therapy Code Descriptions/Definitions Functional [place] Measure: 0=Not Assessed/NA 4=Minimal Assistance 1=Total Assistance 5=Supervision or Setup 2=Maximal Assistance 6=Modified [place] 3=Moderate Assistance 7=Complete IndependenceSCALE: Activities may be completed with or without assistive devices. 0-Zynmsbhsvj-nhrvdjy completes the activity by him/herself with no assistance from a helper. 5-Set-up or Clean-up Assistance-helper sets up or cleans up; patient completes activity. [place] assists only prior to or following the activity. 4-Supervision or Touching Assistance-helper provides verbal cues and/or touching/steadying and/or contact guard assistance as patient completes activity. Assistance may be provided throughout the activity or intermittently. 3-Partial/Moderate Assistance-helper does LESS THAN HALF the effort. [place] lifts, holds or supports trunk or limbs, but provides less than half the effort. 2-Substantial/Maximal Assistance-helper does MORE THAN HALF the effort. [place] lifts or holds trunk or limbs and provides more than half the effort. 9-Kbcnmietu-dlzxoo does ALL the effort. Patient does none of the effort to c omplete the activity. Or, the assistance of 2 or more helpers is required for the patient to complete the activity. If activity was not attempted, code reason: 7-Patient Refused. 9-Not Applicable-not attempted and the patient did not perform the activity before the current illness, exacerbation or injury. 10-Not Attempted due to Environmental Limitations-(lack of equipment, weather restraints, etc.). 88-Not Attempted due to Medical Conditions or Safety Concerns. Roll Left to Right (QC): 6 Sit to Lying (QC): 6 Sit to Stand (QC): 6 Chair/Kqq-ad-Ywcqr Xfer(QC): 6 Car Transfer (QC): 4 Gait Training Does the Patient Walk?: Yes Distance: 450' Walk 10 feet (QC): 6 Walk 50 ft with 2 Turns(QC): 6 Walk 150 ft (QC): 6 Walking 10ft/uneven surface-QC: 0 (will assess at follow up visit) Gait Persons Needed: 1 (for [place] only) Gait Assistive Device: Cane Large Base Quad Wheelchair Training Does the Pt Use a Wheelchair?: No Wheel 50 ft with 2 turns (QC): 9 Wheel 150 ft (QC): 9 Stair Training Stair Training: Handrails/: 1 handrail (cane in other hand) #of Steps: 8 1 Step (curb) (QC): 4 4 Steps (QC): 5 12 Steps (QC): 88 Stairs: Pattern: Reciprocal Balance Picking up an Object (QC): 88 ADL-Treatment Eating (QC): 6 (Pt reports having no difficulty eating lunch) Oral Hygiene (QC): 6 (Completed oral hygiene sitting at sink independently.) Bathing Location: L Arm, R Arm, L Upper Leg, R Upper Leg, L Lower Leg (i ncluding foot), R Lower Leg (including foot), Chest, Perineal Area Shower/Bathe Self (QC): 6 Upper Body Dressing (QC): 5 (After set up, pt able to don shirt by self.) Lower Body Dressing (QC): 5 (After set up, pt able to complete lower body dressing) On/Off Footwear (QC): 3 (Assist to don jimmie hose. 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 Anasarca hx Hirsutism Poor albumin level improved h/o Ascites s/p paracentesis just bloody serous NGTD Anemia s/p transfusions 2 units 03/17/20 Situational depression Plan: IRF protocol Continue treatment plan Appreciate Surgery management 07/07/20: Monitor white count now 13 down from 16 Watery diarrhea monitoring Butt paste as needed Pain medication as needed 07/08/20: Continue changing wound vac Pain medication before wound vac change Continue strengthening from physical therapy Encourage good nutrition 07/09/20: Continue wound vac changes Bowels still loose Supportive care 07/10/20: Maintain wound vac change Monday, Monday, and Monday Good healing Bowels are still a little bit loose Continue aggressive treatment 07/11/20: Surgery to decide about abx since IV went bad Increase PO nutrition 07/12/20: Monitor nutrition Monitor labs Wound vac changed MWF 07/13/20: Inquire with Dr. Cardona regarding redness around sutures snow remover to pill form of pain medication before wound vac Restart Lisinopril as she takes at home 07/14/20: Maintain bowel regimen Wound vac change Monday, Monday, and Monday Pain control Remove IV today 07/15/20: Monitor pain Wound vac changes Reviewed team conference plans 07/16/20: Pain management Fall risk Wound vac management 07/17/20: Wound vac changes Pain control 07/18/20: Pain control Increase therapy Fall risk prevention 07/19/20: Monitor pain Increase po nutrition (1) Debility (2) Evisceration of bowel Status: Acute (3) Surgical wound dehiscence Status: Acute (4) Hypertensive emergency Status: Acute (5) Hypertension Status: Chronic (6) Hyperlipidemia Status: Chronic (7) Coronary artery disease Status: Chronic (8) Abdominal pain Status: Acute (9) Anasarca (10) Anemia (11) Hirsutism (12) Leukocytosis SESAR BEEBE DO Jul 19, 2020 10:49
[2020-07-19] MEDS: HYDROcodone/APAP 5 MG/325 MG (LORTAB) TAB PO PRN ×2 (13:32→23:54)
--- NOTE | 2020-07-19 14:54 | Progress Note - Cardiology ---
Cardiology SOAP Progress Note Subjective: No new symptoms Gen weakness improving No cp or palp or syncope No n/v/d Objective: I&O/Vital Signs 07/19/20 07/19/20 06:00 09:55 Temp 36.6 Pulse 83 86 Resp 18 B/P (MAP) 137/77 (97) 149/81 (103) Pulse Ox 100 O2 Delivery Room Air 07/19/20 00:00 Intake Total 1020 ml Balance 1020 ml Constitutional: AAO x 3, well-developed, well-nourished Respiratory: No accessory muscle use, No respiratory distress; chest expansion is symmetric, chest is bilaterally symmetric, lungs clear to auscultation Cardiovascular: regular rate-rhythm; No JVD; S1 and S2 Gastrointestional: other (post op abdomen with wound vac in place) Extremities: no lower extremity edema bilateral Neurologic/Psychiatric: grossly intact (moves all extremities) Skin: No rash on exposed areas, No ulcerations on exposed areas Results/Procedures: Labs Laboratory Tests 07/18/20 07:13 A/P: Assessment: Hypertension, under fair control CAD, h/o cor stenting at [facility] in Oct 2019 (to treat angina, not to treat [place], according to the patient). Last card cath on 03/05/20: patent stents in the mid left circumflex and the mid right coronary arteries. There is moderate diffuse disease of all coronary arteries. There is moderately severe diffuse disease of the distal left anterior descending. A small caliber obtuse marginal has 70% to 80% ostial stenosis. Normal left ventricular end-diastolic pressure. Echo of 03/05/20: LVEF 60-65%, mild to mod TR, RVSP 35-40 mmHg, mild dilatation of LA S/p colectomy and ileostomy for intestinal obstruction. S/P ileostomy reversal bowel evisceration with closure of abdomen and placement of phasix mesh (hernia repair) by Dr. Ji Plan: Continue current regimen Monitor lab from time to time Adjust antihypertensive regimen as needed VI KO MD FACP FAC CCDS Jul 19, 2020 14:54
[2020-07-19 17:44] VITALS: BP 145/82
[2020-07-19] MEDS: ENOXAPARIN 40 MG/0.4 ML (LOVENOX) SYR SC SCH (18:35)
--- NOTE | 2020-07-20 05:34 | PM&R Progress Note ---
Subjective HPI/CC On Admission Date Seen by Provider: Jul 20, 2020 Time Seen by Provider: 08:00 Subjective/Events-last exam 07/20/20: Pt doing very well Hgb 9.2 Albumin good at 3.0 Wound vac changed every Monday, Monday, and Monday07/19/20: Patient doing well No pain reported NO falls Eating well 07/18/20: Patient denies new issues Pain controlled Sutures removed except 1 07/17/20: Wound vac changed MWF BM++ Cardiology consulted for elevated BP 07/16/20: Wound vac changed one hour after pain pill given which is helping a great deal Pain is overall doing well Bowels are moving today Wound is much improved on her abdomen Overall progressing nicely 07/15/20: Patient has some loose stools which we will continue Changing wound VAC every Monday and Monday Feels like she is making some progress No falls reported 07/14/20: Bowels moved yesterday No major issues Wound vac changed every Monday, Monday and Monday Discharge at the end of the week hopefully 07/13/20: Hgb stable at 8.2, potassium 3.5 Redness around sutures will inquire with Dr. Cardona about removing them No picc line will be needed since we will shift to oral pain medication an hour before the wound vac change Lisinopril will be added for elevated BP 07/12/20: Patient feels good Regular diet tolerated No pain is reported except when wound vac changed Labs due tomorrow 07/11/20: Patient doing well Regular diet tolerated well Wound vac MWF Abx will be changed to PO since IV went bad and can't replace due to poor access 07/10/20: Changed wound vac and that will be done Monday, Monday and Monday Good healing Bowels are loose but that is a chronic issue Participating in therapy 07/09/20: Pt reports abdominal pain where the wound vac is Bowels are still loose and watery Overall feels like she is doing pretty good otherwise Chronic debility is improving 07/08/20: Needs pain medication before wound vac change Overall feels pretty good Eating and drinking well Overall progressing nicely 07/07/20: WBC 13.4 down from 16 Watery diarrhea Buttpaste ordered for ramso-area Lortab taken this morning Checked meds and labs Reviewed therapy notes Conferred with professor of family medicine of [employer] General: Fatigue, Malaise Neurological: Weakness Objective Exam Vital Signs Vital Signs Date Time Temp Pulse Resp B/P (MAP) Pulse Ox O2 Delivery O2 Flow Rate FiO2 07/20/20 16:30 35.5 80 14 128/78 (95) 92 Room Air Capillary Refill : Less Than 3 Seconds General Appearance: No Apparent Distress, Chronically ill HEENT: PERRL/EOMI, Normal ENT Inspection, Pharynx Normal Neck: Full Range of Motion, Normal Inspection, Non Tender, Supple Respiratory: Chest Non Tender, Lungs Clear, Normal Breath Sounds, No Accessory Muscle Use, No Respiratory Distress, Decreased Breath Sounds Cardiovascular: Regular Rate, Rhythm, No Gallop, No JVD, No Murmur, Normal Peripheral Pulses Gastrointestinal: Normal Bowel Sounds, No Organomegaly, No Pulsatile Mass, Soft, Tenderness, Other (wound vac in place) Back: Normal Inspection, No CVA Tenderness, No Vertebral Tenderness Extremity: Normal Capillary Refill, Normal Inspection, Normal Range of Motion, Non Tender, No Calf Tenderness, Pedal Edema Neurologic/Psychiatric: Alert, Oriented x3, No Motor/Sensory Deficits, Normal Mood/Affect, principal investigator II-XII Norm as Tested, Motor Weakness (generalized) Skin: Normal Color, Warm/Dry Lymphatic: No Adenopathy Results/Procedures Lab Laboratory Tests 07/20/20 05:16 Patient resulted labs reviewed. FIM Transfers Therapy Code Descriptions/Definitions Functional [place] Measure: 0=Not Assessed/NA 4=Minimal Assistance 1=Total Assistance 5=Supervision or Setup 2=Maximal Assistance 6=Modified [place] 3=Moderate Assistance 7=Complete IndependenceSCALE: Activities may be completed with or without assistive devices. 1-Cachtbhnob-inabznz completes the activity by him/herself with no assistance from a helper. 5-Set-up or Clean-up Assistance-helper sets up or cleans up; patient completes activity. [place] assists only prior to or following the activity. 4-Supervision or Touching Assistance-helper provides verbal cues and/or touching/steadying and/or contact guard assistance as patient completes activi ty. Assistance may be provided throughout the activity or intermittently. 3-Partial/Moderate Assistance-helper does LESS THAN HALF the effort. [place] lifts, holds or supports trunk or limbs, but provides less than half the effort. 2-Substantial/Maximal Assistance-helper does MORE THAN HALF the effort. [place] lifts or holds trunk or limbs and provides more than half the effort. 7-Ilnjjmrij-sphbjr does ALL the effort. Patient does none of the effort to complete the activity. Or, the assistance of 2 or more helpers is required for the patient to complete the activity. If activity was not attempted, code reason: 7-Patient Refused. 9-Not Applicable-not attempted and the patient did not perform the activity before the current illness, exacerbation or injury. 10-Not Attempted due to Environmental Limitations-(lack of equipment, weather restraints, etc.). 88-Not Attempted due to Medical Conditions or Safety Concerns. Roll Left to Right (QC): 6 Sit to Lying (QC): 6 Sit to Stand (QC): 6 Chair/Nxw-fv-Lgfiy Xfer(QC): 6 Car Transfer (QC): 4 Gait Training Does the Patient Walk?: Yes Distance: 450' Walk 10 feet (QC): 6 Walk 50 ft with 2 Turns(QC): 6 Walk 150 ft (QC): 6 Walking 10ft/uneven surface-QC: 0 (will assess at follow up visit) Gait Persons Needed: 1 (for [place] only) Gait Assistive Device: Cane Large Base Quad Wheelchair Training Does the Pt Use a Wheelchair?: No Wheel 50 ft with 2 turns (QC): 9 Wheel 150 ft (QC): 9 Stair Training Stair Training: Handrails/: 1 handrail (cane in other hand) #of Steps: 8 1 Step (curb) (QC): 4 4 Steps (QC): 5 12 Steps (QC): 88 Stairs: Pattern: Reciprocal Balance Picking up an Object (QC): 88 ADL-Treatment Eating (QC): 6 (Pt reports having no difficulty eating lunch) Oral Hygiene (QC): 6 (Completed oral hygiene sitting at sink independently.) Bathing Location: L Arm, R Arm, L Upper Leg, R Upper Leg, L Lower Leg (including foot), R Lower Leg (including foot), Chest, Perineal Area Shower/Bathe Self (QC): 6 Upper Body Dressing (QC): 5 (After set up, pt able to don shirt by self.) Lower Body Dressing (QC): 5 (After set up, pt able to complete lower body dressing) On/Off Footwear (QC): 3 (Assist to don jimmie hose. 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 Anasarca hx Hirsutism Poor albumin level improved h/o Ascites s/p paracentesis just bloody serous NGTD Anemia s/p transfusions 2 units 03/17/20 Situational depression Plan: IRF protocol Continue treatment plan Appreciate Surgery management 07/07/20: Monitor white count now 13 down from 16 Watery diarrhea monitoring Butt paste as needed Pain medication as needed 07/08/20: Continue changing wound vac Pain medication before wound vac change Continue strengthening from physical therapy Encourage good nutrition 07/09/20: Continue wound vac changes Bowels still loose Supportive care 07/10/20: Maintain wound vac change Monday, Monday, and Monday Good healing Bowels are still a little bit loose Continue aggressive treatment 07/11/20: Surgery to decide about abx since IV went bad Increase PO nutrition 07/12/20: Monitor nutrition Monitor labs Wound vac changed MWF 07/13/20: Inquire with Dr. Cardona regarding redness around sutures looseleaf binder coverer to pill form of pain medication before wound vac Restart Lisinopril as she takes at home 07/14/20: Maintain bowel regimen Wound vac change Monday, Monday, and Monday Pain control Remove IV today 07/15/20: Monitor pain Wound vac changes Reviewed team conference plans 07/16/20: Pain management Fall risk Wound vac management 07/17/20: Wound vac changes Pain control 07/18/20: Pain control Increase therapy Fall risk prevention 07/19/20: Monitor pain Increase po nutrition 07/20/20: Labs stable with hemoglobin 9.2 Encourage good nutrition Pain control with wound vac change (1) Debility (2) Evisceration of bowel Status: Acute (3) Surgical wound dehiscence Status: Acute (4) Hypertensive emergency Status: Acute (5) Hypertension Status: Chronic (6) Hyperlipidemia Status: Chronic (7) Coronary artery disease Status: Chronic (8) Abdominal pain Status: Acute (9) Anasarca (10) Anemia (11) Hirsutism (12) Leukocytosis SESAR BEEBE DO Jul 20, 2020 05:34
[2020-07-20 05:42] LABS: BASOPHILS % (AUTO) 0 % (0-10); EOSINOPHILS # (AUTO) 0.2 10^3/uL (0.0-0.3); EOSINOPHILS % (AUTO) 3 % (0-10); HEMATOCRIT 29 % (35-52); HEMOGLOBIN 9.2 G/DL (11.5-16.0); LYMPHOCYTES # (AUTO) 1.1 X 10^3 (1.0-4.0); LYMPHOCYTES % (AUTO) 20 % (12-44); MEAN CORPUSCULAR HEMOGLOBIN 27 PG (25-34); MEAN CORPUSCULAR HGB CONC 32 G/DL (32-36); MEAN CORPUSCULAR VOLUME 85 FL (80-99); MEAN PLATELET VOLUME 8.8 FL (7.4-10.4); MONOCYTES # (AUTO) 0.6 X 10^3 (0.0-1.0); MONOCYTES % (AUTO) 11 % (0-12); NEUTROPHILS # (AUTO) 3.7 X 10^3 (1.8-7.8); NEUTROPHILS % (AUTO) 66 % (42-75); PLATELET COUNT 338 10^3/uL (130-400); RED CELL DISTRIBUTION WIDTH 15.7 % (10.0-14.5); WHITE BLOOD COUNT 5.7 10^3/uL (4.3-11.0)
[2020-07-20 06:00] VITALS: BP 131/78
[2020-07-20 06:01] LABS: ALANINE AMINOTRANSFERASE 7 U/L (0-55); ALKALINE PHOSPHATASE 118 U/L (40-136); BILIRUBIN,TOTAL 0.2 MG/DL (0.1-1.0); BUN/CREATININE RATIO 16; CALCIUM 8.3 MG/DL (8.5-10.1); CARBON DIOXIDE 20 MMOL/L (21-32); CHLORIDE 104 MMOL/L (98-107); CREATININE SERUM 0.68 MG/DL (0.60-1.30); GFR ESTIMATED > 60; GLUCOSE 89 MG/DL (70-105); POTASSIUM 4.1 MMOL/L (3.6-5.0); SODIUM 136 MMOL/L (135-145); TOTAL PROTEIN 6.6 GM/DL (6.4-8.2)
--- NOTE | 2020-07-20 08:55 | NUR ---
CM/SS CONCURRENT DOCUMENTATION Completed wound vac jasbir application forwarded to RN/NTyler as planned.
[2020-07-20 09:10] VITALS: BP 147/89
[2020-07-20] MEDS: amLODIPine 5 MG (NORVASC) TAB PO SCH (09:10)
[2020-07-20] MEDS: meTOprolol SUCCINATE 100 MG (TOPROL XL) TAB PO SCH (09:10)
[2020-07-20] MEDS: ASPIRIN 81 MG CHEW (CHILDREN'S ASA) PO SCH (09:10)
[2020-07-20] MEDS: lisINopril 20 MG (PRINIVIL) TABLET PO SCH ×2 (09:10→20:56)
[2020-07-20] MEDS: CLOPIDOGREL 75 MG (PLAVIX) TABLET PO SCH (09:10)
[2020-07-20] MEDS: HYDROcodone/APAP 5 MG/325 MG (LORTAB) TAB PO PRN ×2 (09:11→13:41)
--- NOTE | 2020-07-20 09:21 | Occupational Ther Daily Note ---
OT Current Status-Daily Note Subjective Pt alert, sitting in recliner. Pt agreed to therapy. No c/o of pain. Mental Status/Objective Patient Orientation: Person, Place, Time, Situation ADL-Treatment Sit to stand from recliner with quad cane, independently. Ambulated to bathroom using quad cane, supervision. Transferred to toilet and completed toilet hygiene using quad cane, independently. Pt ambulated to shower bench for showering. OT covered wound. Pt completes bathing by self using shower bench, grab bars, and hand held shower. After therapy, pt sitting at sink completing grooming. Call light in reach, nrsg notified of pt's position. All needs met in room. Therapy Code Descriptions/Definitions Functional [place] Measure: 0=Not Assessed/NA 4=Minimal Assistance 1=Total Assistance 5=Supervision or Setup 2=Maximal Assistance 6=Modified [place] 3=Moderate Assistance 7=Complete IndependenceSCALE: Activities may be completed with or without assistive devices. 8-Aybqtgruew-xjlfyia completes the activity by him/herself with no assistance from a helper. 5-Set-up or Clean-up Assistance-helper sets up or cleans up; patient completes activity. [place] assists only prior to or following the activity. 4-Supervision or Touching Assistance-helper provides verbal cues and/or touching/steadying and/or contact guard assistance as patient completes activity. Assistance may be provided throughout the activity or intermittently. 3-Partial/Moderate Assistance-helper does LESS THAN HALF the effort. [place] lifts, holds or supports trunk or limbs, but provides less than half the effort. 2-Substantial/Maximal Assistance-helper does MORE THAN HALF the effort. [place] lifts or holds trunk or limbs and provides more than half the effort. 2-Oehvfeitk-dwvkvx does ALL the effort. Patient does none of the effort to complete the activity. Or, the assistance of 2 or more helpers is required for the patient to complete the activity. If activity was not attempted, code reason: 7-Patient Refused. 9-Not Applicable-not attempted and the patient did not perform the activity before the current illness, exacerbation or injury. 10-Not Attempted due to Environmental Limitations-(lack of equipment, weather restraints, etc.). 88-Not Attempted due to Medical Conditions or Safety Concerns. Oral Hygiene (QC): 6 (Sitting at sink, pt completes independently. ) Shower/Bathe Self (QC): 6 Upper Body Dressing (QC): 5 (After set up, pt able to don shirt by self.) Lower Body Dressing (QC): 5 (After set up, pt able to complete lower body dressing by self.) On/Off Footwear: 3 (Assist to don jimmie hose. After set up, pt able to don socks by self.) Toileting Hygiene (QC): 6 Toilet Transfer (QC): 6 Education OT Patient Education: Modified ADL techniques Teaching Recipient: Patient Teaching Methods: Discussion Response to Teaching: Verbalize Understanding, Return Demonstration OT Loading Dock Helper Goals Loading Dock Helper Goals Time Frame: Jul 20, 2020 Eating (QC): 6 Oral Hygiene (QC): 6 Toileting Hygiene (QC): 6 Shower/Bathe Self (QC): 6 Upper Body Dressing (QC): 6 Lower Body Dressing (QC): 6 On/Off Footwear (QC): 6 Additional Goals: 1-Demonstrate ADL Tasks, 2-Verbalize Understanding, 3- ImproveStrength/Fern 1=Demonstrate adherence to instructed precautions during ADL tasks. 2=Patient will verbalize/demonstrate understanding of assistive devices/modifications for ADL. 3=Patient will improve strength/tolerance for activity to enable patient to perform ADL's. OT Education/Plan Problem List/Assessment Assessment: Decreased UE Strength, Impaired Coordination, Impaired Funct Balance, Impaired I ADL's, Impaired Self-Care Skills Discharge Recommendations Plan/Recommendations: Continue POC Treatment Plan/Plan of Care Patient would benefit from OT for education, treatment and training to promote independence in ADL's, mobility, safety and/or upper extremity function for ADL's. Plan of Care: ADL Retraining, Concurrent Therapy, Functional Mobility, Group Exercise/Act as Ind, UE Funct Exercise/Act Treatment Duration: Jul 20, 2020 Frequency: At least 5 of 7 days/Wk (IRF) Estimated Hrs Per Day: 1.5 hours per day Agreement: Yes Rehab Potential: Good Time/GCodes Start Time: 07:30 Stop Time: 08:30 Total Time Billed (hr/min): 60 Billed Treatment Time 1 visit- ADL 4 (60 mins) LEYDA HOBSON Jul 20, 2020 09:21
--- NOTE | 2020-07-20 13:28 | Occupational Ther Daily Note ---
OT Current Status-Daily Note Subjective Pt alert, at recliner. Agreed to therapy. No c/o of pain. Mental Status/Objective Patient Orientation: Person, Place, Time, Situation ADL-Treatment Therapy Code Descriptions/Definitions Functional [place] Measure: 0=Not Assessed/NA 4=Minimal Assistance 1=Total Assistance 5=Supervision or Setup 2=Maximal Assistance 6=Modified [place] 3=Moderate Assistance 7=Complete IndependenceSCALE: Activities may be completed with or without assistive devices. 8-Nlvcfykfru-apsgrxs completes the activity by him/herself with no assistance from a helper. 5-Set-up or Clean-up Assistance-helper sets up or cleans up; patient completes activity. [place] assists only prior to or following the activity. 4-Supervision or Touching Assistance-helper provides verbal cues and/or touching/steadying and/or contact guard assistance as patient completes activity. Assistance may be provided throughout the activity or intermittently. 3-Partial/Moderate Assistance-helper does LESS THAN HALF the effort. [place] lifts, holds or supports trunk or limbs, but provides less than half the effort. 2-Substantial/Maximal Assistance-helper does MORE THAN HALF the effort. [place] lifts or holds trunk or limbs and provides more than half the effort. 7-Tvncipqlc-atqhpp does ALL the effort. Patient does none of the effort to c omplete the activity. Or, the assistance of 2 or more helpers is required for the patient to complete the activity. If activity was not attempted, code reason: 7-Patient Refused. 9-Not Applicable-not attempted and the patient did not perform the activity before the current illness, exacerbation or injury. 10-Not Attempted due to Environmental Limitations-(lack of equipment, weather restraints, etc.). 88-Not Attempted due to Medical Conditions or Safety Concerns. Other Treatment Sit to stand from recliner with quad cane. Ambulated to gym, independently with quad cane. Pt stand to sit at EOM. Pt participated in 3 rounds of 10 min dynamic sitting and standing balance while hitting a balloon with a 2 pound bar using BUE. Activity completed to increase pt's ability to functionally complete ADLs and IADls. Pt ambulated back to room using quad cane. Stand to sit at recliner. Pt takes increased time to complete tasks. Call light/phone in reach. All needs met in room. OT Supervisor Mechanic Boilermaking Goals Alf Goals Time Frame: Jul 20, 2020 Eating (QC): 6 Oral Hygiene (QC): 6 Toileting Hygiene (QC): 6 Shower/Bathe Self (QC): 6 Upper Body Dressing (QC): 6 Lower Body Dressing (QC): 6 On/Off Footwear (QC): 6 Additional Goals: 1-Demonstrate ADL Tasks, 2-Verbalize Understanding, 3-ImproveStrength/Fern 1=Demonstrate adherence to instructed precautions during ADL tasks. 2=Patient will verbalize/demonstrate understanding of assistive devices/modifications for ADL. 3=Patient will improve strength/tolerance for activity to enable patient to perform ADL's. OT Education/Plan Problem List/Assessment Assessment: Decreased UE Strength, Impaired Coordination, Impaired Funct Balance, Impaired I ADL's, Impaired Self-Care Skills, Restricted Funct UE ROM Discharge Recommendations Plan/Recommendations: Continue POC Treatment Plan/Plan of Care Patient would benefit from OT for education, treatment and training to promote independence in ADL's, mobility, safety and/or upper extremity function for ADL's. Plan of Care: ADL Retraining, Concurrent Therapy, Functional Mobility, Group Exercise/Act as Ind, UE Funct Exercise/Act Treatment Duration: Jul 20, 2020 Frequency: At least 5 of 7 days/Wk (IRF) Estimated Hrs Per Day: 1.5 hours per day Agreement: Yes Rehab Potential: Good Time/GCodes Start Time: 13:00 Stop Time: 13:30 Total Time Billed (hr/min): 30 Billed Treatment Time 1 Visit -FA 2(30 min) LEYDA HOBSON Jul 20, 2020 13:28
--- NOTE | 2020-07-20 14:39 | Physical Therapy Daily Note ---
PT Daily Note-Current Subjective Pt. pleasant and agreeable to Rx. No c/o pain. Awaiting a visit from wound care nurse. Pain Location: No Pain Reported Mental Status Patient Orientation: Normal For Age Attachments: Other-See Comments (wound vacc on IV standard) Transfers SCALE: Activities may be completed with or without assistive devices. 9-Rmpzxptelo-ybkbaxh completes the activity by him/herself with no assistance from a helper. 5-Set-up or Clean-up Assistance-helper sets up or cleans up; patient completes activity. [place] assists only prior to or following the activity. 4-Supervision or Touching Assistance-helper provides verbal cues and/or touching/steadying and/or contact guard assistance as patient completes activity. Assistance may be provided throughout the activity or intermittently. 3-Partial/Moderate Assistance-helper does LESS THAN HALF the effort. [place] lifts, holds or supports trunk or limbs, but provides less than half the effort. 2-Substantial/Maximal Assistance-helper does MORE THAN HALF the effort. [place] lifts or holds trunk or limbs and provides more than half the effort. 6-Buujfmuie-fsoxde does ALL the effort. Patient does none of the effort to complete the activity. Or, the assistance of 2 or more helpers is required for the patient to complete the activity. If activity was not attempted, code reason: 7-Patient Refused. 9-Not Applicable-not attempted and the patient did not perform the activity before the current illness, exacerbation or injury. 10-Not Attempted due to Environmental Limitations-(lack of equipment, weather restraints, etc.). 88-Not Attempted due to Medical Conditions or Safety Concerns. Roll Left & Right (QC): 6 Sit to Lying (QC): 6 Lying to Sitting/Side of Bed(Q: 6 Sit to Stand (QC): 6 Chair/Bvn-ub-Xkoxd Xfer(QC): 6 Toilet Transfer (QC): 6 Weight Bearing Right Lower Extremity: Right Weight Bearing/Tolerated Left Lower Extremity: Left Weight Bearing/Tolerated Gait Training Does the Patient Walk?: Yes Walk 10 feet (QC): 6 Walk 50 ft with 2 Turns(QC): 6 Walk 150 ft (QC): 6 Gait Persons Needed: 0 (needed only to assist with IV standard as its wheels are difficult at times and afraid pt. might have trouble if left up ad roro to manage this) Gait Assistive Device: Cane Large Base Quad 200jql3, 200x1, 50 ft all SBA, no parish LOB Stair Training Stair Training: Handrails/: 2 handrails #of Steps: 4 4 Steps (QC): 5 Stairs: Pattern: Reciprocal Exercises Supine Ex: Ankle pumps, Quad Set, Rolling, Heel Slides, Hip abd/add Supine Reps: 15 Seated Therapy Exercises: Ankle pumps, Sit to stand, Long arc quads, Hip flexion, Hip abd/add Seated Reps: 12 Standing: Hip Abduction, Heel/toe raises, Marching, Mini squats Standing Reps: 15 NuStep Minutes: 10 NuStep Workload: 4 Assessment Current Status: Excellent Progress PT Short Term Goals Short Term Goals Time Frame: Jul 11, 2020 Sit to lyin Lying to sitting on side of be: 4 Sit to stand: 5 Walk 150 feet: 4 4 steps: 4 PT Correction Goals Chief Information Security Officer Goals PT Chief Information Security Officer Goals Time Frame: Jul 22, 2020 Roll Left & Right (QC): 6 Sit to Lying (QC): 6 Lying-Sitting on Side/Bed(QC): 6 Sit to Stand (QC): 6 Chair/Yne-cc-Hvznx Xfer(QC): 6 Toilet Transfer (QC): 6 Car Transfer (QC): 6 Does the Patient Walk: Yes Walk 10 feet (QC): 6 Walk 50ft with 2 Turns (QC): 6 Walk 150 ft (QC): 6 Walking 10ft on Uneven Surface: 6 1 Step (curb) (QC): 6 4 Steps (QC): 6 12 Steps (QC): 4 Picking up an Object (QC): 4 Wheel 50 feet with 2 turns (QC: 9 Wheel 150 feet: 9 PT Plan Treatment/Plan Treatment Plan: Continue Plan of Care Treatment Plan: Bed Mobility, Education, Functional Activity [place], Functional Strength, Group Therapy, Gait, Safety, Therapeutic Exercise, Transfers Treatment Duration: Jul 22, 2020 Frequency: At least 5 of 7 days/Wk (IRF) Estimated Hrs Per Day: 1.5 hours per day Patient and/or Family Agrees t: Yes Safety Risks/Education Patient Education: Gait Training, Transfer Techniques, Steps, Correct Positioning, Disease Process, Safety Issues Teaching Recipient: Patient Teaching Methods: Demonstration, Discussion Response to Teaching: Verbalize Understanding, Return Demonstration, Reinforcement Needed Time/GCodes Time In: 1105 Time Out: 1205 Total Billed Treatment Time: 60 Total Billed Treatment 1,EX30m,FA15m,GT15m AN CHUN MANAGER BUSINESS BANKING Jul 20, 2020 14:39
--- NOTE | 2020-07-20 15:28 | Physical Therapy Daily Note ---
PT Daily Note-Current Subjective Patient agrees to PT. Wound vac changed. Mental Status Patient Orientation: Normal For Age wound vac Transfers SCALE: Activities may be completed with or without assistive devices. 6-Vytmedqxll-mdgmdgi completes the activity by him/herself with no assistance from a helper. 5-Set-up or Clean-up Assistance-helper sets up or cleans up; patient completes activity. [place] assists only prior to or following the activity. 4-Supervision or Touching Assistance-helper provides verbal cues and/or touching /steadying and/or contact guard assistance as patient completes activity. Assistance may be provided throughout the activity or intermittently. 3-Partial/Moderate Assistance-helper does LESS THAN HALF the effort. [place] lifts, holds or supports trunk or limbs, but provides less than half the effort. 2-Substantial/Maximal Assistance-helper does MORE THAN HALF the effort. [place] lifts or holds trunk or limbs and provides more than half the effort. 3-Zkxfdhnwn-trlyke does ALL the effort. Patient does none of the effort to complete the activity. Or, the assistance of 2 or more helpers is required for the patient to complete the activity. If activity was not attempted, code reason: 7-Patient Refused. 9-Not Applicable-not attempted and the patient did not perform the activity before the current illness, exacerbation or injury. 10-Not Attempted due to Environmental Limitations-(lack of equipment, weather restraints, etc.). 88-Not Attempted due to Medical Conditions or Safety Concerns. Roll Left & Right (QC): 6 Sit to Lying (QC): 6 Lying to Sitting/Side of Bed(Q: 6 Sit to Stand (QC): 6 Chair/Aed-bm-Lzcxg Xfer(QC): 6 Car Transfer (QC): 6 Weight Bearing Right Lower Extremity: Right Weight Bearing/Tolerated Left Lower Extremity: Left Weight Bearing/Tolerated Gait Training Does the Patient Walk?: Yes Distance: 400' x 2 Walk 10 feet (QC): 6 Walk 50 ft with 2 Turns(QC): 6 Walk 150 ft (QC): 6 Gait Assistive Device: Cane Small Base Quad safe and functional with no deviation Stair Training Stair Training: Handrails/: 1 handrail, uses cane #of Steps: 12 1 Step (curb) (QC): 5 4 Steps (QC): 5 12 Steps (QC): 5 Stairs: Pattern: Step to Assessment Patient tolerated treatment well and returned to recliner in room. Patient is highly motivated with progress. PT Short Term Goals Short Term Goals Time Frame: Jul 11, 2020 Sit to lyin Lying to sitting on side of be: 4 Sit to stand: 5 Walk 150 feet: 4 4 steps: 4 PT Skilled Nursing Goals [place] Goals PT Skilled Nursing Goals Time Frame: Jul 22, 2020 Roll Left & Right (QC): 6 Sit to Lying (QC): 6 Lying-Sitting on Side/Bed(QC): 6 Sit to Stand (QC): 6 Chair/Uje-gx-Terft Xfer(QC): 6 Toilet Transfer (QC): 6 Car Transfer (QC): 6 Does the Patient Walk: Yes Walk 10 feet (QC): 6 Walk 50ft with 2 Turns (QC): 6 Walk 150 ft (QC): 6 Walking 10ft on Uneven Surface: 6 1 Step (curb) (QC): 6 4 Steps (QC): 6 12 Steps (QC): 4 Picking up an Object (QC): 4 Wheel 50 feet with 2 turns (QC: 9 Wheel 150 feet: 9 PT Plan Treatment/Plan Treatment Plan: Continue Plan of Care Treatment Plan: Bed Mobility, Education, Functional Activity Fern, Functional Strength, Group Therapy, Gait, Safety, Therapeutic Exercise, Transfers Treatment Duration: Jul 22, 2020 Frequency: At least 5 of 7 days/Wk (IRF) Estimated Hrs Per Day: 1.5 hours per day Patient and/or Family Agrees t: Yes Time/GCodes Time In: 1455 Time Out: 1525 Total Billed Treatment Time: 30 Total Billed Treatment 1 visit FA x 2 30 min PHIL GERBER PT Jul 20, 2020 15:28
[2020-07-20 16:30] VITALS: BP 128/78
[2020-07-20] MEDS: ENOXAPARIN 40 MG/0.4 ML (LOVENOX) SYR SC SCH (18:14)
[2020-07-21] MEDS: HYDROcodone/APAP 5 MG/325 MG (LORTAB) TAB PO PRN ×2 (03:11→09:31)
[2020-07-21 03:27] VITALS: BP 146/72
--- NOTE | 2020-07-21 08:31 | Occupational Ther Daily Note ---
OT Current Status-Daily Note Subjective Pt alert, sitting at recliner. Agreed to OT treatment. No c/o of pain reported. Mental Status/Objective Patient Orientation: Person, Place, Time, Situation Attachments: Other-See Comments Wound vac ADL-Treatment Sit to stand from recliner with quad cane, independently. Ambulated to bathroom using quad cane, supervision (assist to manipulate wound vac on IV pole). Transferred to toilet and completed toilet hygiene using quad cane, independently. Pt ambulated to shower bench for showering. OT covered wound. Pt completes bathing by self using shower bench, grab bars, and hand held shower. Takes time to complete all steps of showering After therapy, pt sitting at sink completing grooming. Call light in reach, nrsg notified of pt's position. All needs met in room. Therapy Code Descriptions/Definitions Functional [place] Measure: 0=Not Assessed/NA 4=Minimal Assistance 1=Total Assistance 5=Supervision or Setup 2=Maximal Assistance 6=Modified [place] 3=Moderate Assistance 7=Complete IndependenceSCALE: Activities may be completed with or without assistive devices. 7-Zkpwhmtakq-hzlkwdj completes the activity by him/herself with no assistance from a helper. 5-Set-up or Clean-up Assistance-helper sets up or cleans up; patient completes activity. [place] assists only prior to or following the activity. 4-Supervision or Touching Assistance-helper provides verbal cues and/or touching/steadying and/or contact guard assistance as patient completes activity. Assistance may be provided throughout the activity or intermittently. 3-Partial/Moderate Assistance-helper does LESS THAN HALF the effort. [place] lifts, holds or supports trunk or limbs, but provides less than half the effort. 2-Substantial/Maximal Assistance-helper does MORE THAN HALF the effort. [place] l ifts or holds trunk or limbs and provides more than half the effort. 6-Eugooytwb-fhugsq does ALL the effort. Patient does none of the effort to complete the activity. Or, the assistance of 2 or more helpers is required for the patient to complete the activity. If activity was not attempted, code reason: 7-Patient Refused. 9-Not Applicable-not attempted and the patient did not perform the activity before the current illness, exacerbation or injury. 10-Not Attempted due to Environmental Limitations-(lack of equipment, weather restraints, etc.). 88-Not Attempted due to Medical Conditions or Safety Concerns. Oral Hygiene (QC): 6 (Completes sitting at sink, pt completes independently ) Bathing Location: L Arm, R Arm, L Upper Leg, R Upper Leg, L Lower Leg (including foot), R Lower Leg (including foot), Chest, Abdomen, Buttocks, Perineal Area Shower/Bathe Self (QC): 6 Upper Body Dressing (QC): 5 (After set up, pt dons shirt by self) Lower Body Dressing (QC): 5 (After set up, pt completes lower body dressing by self) On/Off Footwear: 3 (Assist to don jimmie hose, pt don/doff sock by self) Toileting Hygiene (QC): 6 (pt completes toilet hygiene by self) Toilet Transfer (QC): 6 (Pt transferes to toilet independenty using quad cane) OT Java Developer Consultant Goals Retirement Goals Time Frame: Jul 20, 2020 Eating (QC): 6 Oral Hygiene (QC): 6 Toileting Hygiene (QC): 6 Shower/Bathe Self (QC): 6 Upper Body Dressing (QC): 6 Lower Body Dressing (QC): 6 On/Off Footwear (QC): 6 Additional Goals: 1-Demonstrate ADL Tasks, 2-Verbalize Understanding, 3- ImproveStrength/[place] 1=Demonstrate adherence to instructed precautions during ADL tasks. 2=Patient will verbalize/demonstrate understanding of assistive devices/modifications for ADL. 3=Patient will improve strength/tolerance for activity to enable patient to perform ADL's. OT Education/Plan Problem List/Assessment Assessment: Decreased UE Strength, Impaired Coordination, Impaired Funct Balance, Impaired I ADL's, Impaired Self-Care Skills Discharge Recommendations Plan/Recommendations: Continue POC Treatment Plan/Plan of Care Patient would benefit from OT for education, treatment and training to promote independence in ADL's, mobility, safety and/or upper extremity function for ADL's. Plan of Care: ADL Retraining, Concurrent Therapy, Functional Mobility, Group Exercise/Act as Ind, UE Funct Exercise/Act Treatment Duration: Jul 20, 2020 Frequency: At least 5 of 7 days/Wk (IRF) Estimated Hrs Per Day: 1.5 hours per day Agreement: Yes Rehab Potential: Good Time/GCodes Start Time: 07:30 Stop Time: 08:30 Total Time Billed (hr/min): 60 Billed Treatment Time 1 visit- ADL 4(60 mins) LEYDA HOBSON Jul 21, 2020 08:31
--- NOTE | 2020-07-21 08:44 | PM&R Progress Note ---
Subjective HPI/CC On Admission Date Seen by Provider: Jul 21, 2020 Time Seen by Provider: 08:00 Subjective/Events-last exam 07/21/20: Bowels are moving everyday Pain is well controlled Wound vac is helping the wound Doing very well 07/20/20: Pt doing very well Hgb 9.2 Albumin good at 3.0 Wound vac changed every Monday, Monday, and Monday07/19/20: Patient doing well No pain reported NO falls Eating well 07/18/20: Patient denies new issues Pain controlled Sutures removed except 1 07/17/20: Wound vac changed MWF BM++ Cardiology consulted for elevated BP 07/16/20: Wound vac changed one hour after pain pill given which is helping a great deal Pain is overall doing well Bowels are moving today Wound is much improved on her abdomen Overall progressing nicely 07/15/20: Patient has some loose stools which we will continue Changing wound VAC every Monday and Monday Feels like she is making some progress No falls reported 07/14/20: Bowels moved yesterday No major issues Wound vac changed every Monday, Monday and Monday Discharge at the end of the week hopefully 07/13/20: Hgb stable at 8.2, potassium 3.5 Redness around sutures will inquire with Dr. Cardona about removing them No picc line will be needed since we will shift to oral pain medication an hour before the wound vac change Lisinopril will be added for elevated BP 07/12/20: Patient feels good Regular diet tolerated No pain is reported except when wound vac changed Labs due tomorrow 07/11/20: Patient doing well Regular diet tolerated well Wound vac MWF Abx will be changed to PO since IV went bad and can't replace due to poor access 07/10/20: Changed wound vac and that will be done Monday, Monday and Monday Good healing Bowels are loose but that is a chronic issue Participating in therapy 07/09/20: Pt reports abdominal pain where the wound vac is Bowels are still loose and watery Overall feels like she is doing pretty good otherwise Chronic debility is improving 07/08/20: Needs pain medication before wound vac change Overall feels pretty good Eating and drinking well Overall progressing nicely 07/07/20: WBC 13.4 down from 16 Watery diarrhea Buttpaste ordered for ramos-area Lortab taken this morning Checked meds and labs Reviewed therapy notes Conferred with learning and development analyst of Systems General: Fatigue, Malaise Neurological: Weakness Objective Exam Vital Signs Vital Signs Date Time Temp Pulse Resp B/P (MAP) Pulse Ox O2 Delivery O2 Flow Rate FiO2 07/21/20 16:45 35.6 90 14 126/72 (90) 97 Room Air Capillary Refill : Less Than 3 Seconds General Appearance: No Apparent Distress, Chronically ill HEENT: PERRL/EOMI, Normal ENT Inspection, Pharynx Normal Neck: Full Range of Motion, Normal Inspection, Non Tender, Supple Respiratory: Chest Non Tender, Lungs Clear, Normal Breath Sounds, No Accessory Muscle Use, No Respiratory Distress, Decreased Breath Sounds Cardiovascular: Regular Rate, Rhythm, No Gallop, No JVD, No Murmur, Normal Peripheral Pulses Gastrointestinal: Normal Bowel Sounds, No Organomegaly, No Pulsatile Mass, Soft, Tenderness, Other (wound vac in place) Back: Normal Inspection, No CVA Tenderness, No Vertebral Tenderness Extremity: Normal Capillary Refill, Normal Inspection, Normal Range of Motion, Non Tender, No Calf Tenderness, Pedal Edema Neurologic/Psychiatric: Alert, Oriented x3, No Motor/Sensory Deficits, Normal Mood/Affect, site auditor II-XII Norm as Tested, Motor Weakness (generalized) Skin: Normal Color, Warm/Dry Lymphatic: No Adenopathy Results/Procedures Lab Patient resulted labs reviewed. FIM Transfers Therapy Code Descriptions/Definitions Functional [place] Measure: 0=Not Assessed/NA 4=Minimal Assistance 1=Total Assistance 5=Supervision or Setup 2=Maximal Assistance 6=Modified [place] 3=Moderate Assistance 7=Complete IndependenceSCALE: Activities may be completed with or without assistive devices. 5-Ujnuixtnxj-etzhuja completes the activity by him/herself with no assistance from a helper. 5-Set-up or Clean-up Assistance-helper sets up or cleans up; patient completes activity. [place] assists only prior to or following the activity. 4-Supervision or Touching Assistance-helper provides verbal cues and/or touching/steadying and/or contact guard assistance as patient completes activity. Assistance may be provided throughout the activity or intermittently. 3-Partial/Moderate Assistance-helper does LESS THAN HALF the effort. [place] lifts, holds or supports trunk or limbs, but provides less than half the effort. 2-Substantial/Maximal Assistance-helper does MORE THAN HALF the effort. [place] lifts or holds trunk or limbs and provides more than half the effort. 4-Qaqociycq-fwfply does ALL the effort. Patient does none of the effort to complete the activity. Or, the assistance of 2 or more helpers is required for the patient to complete the activity. If activity was not attempted, code reason: 7-Patient Refused. 9-Not Applicable-not attempted and the patient did not perform the activity before the current illness, exacerbation or injury. 10-Not Attempted due to Environmental Limitations-(lack of equipment, weather restraints, etc.). 88-Not Attempted due to Medical Conditions or Safety Concerns. Roll Left to Right (QC): 6 Sit to Lying (QC): 6 Sit to Stand (QC): 6 Chair/Fqw-qk-Lnxmc Xfer(QC): 6 Car Transfer (QC): 6 Gait Training Does the Patient Walk?: Yes Distance: 400' x 2 Walk 10 feet (QC): 6 Walk 50 ft with 2 Turns(QC): 6 Walk 150 ft (QC): 6 Walking 10ft/uneven surface-QC: 0 (will assess at follow up visit) Gait Persons Needed: 0 (needed only to assist with IV standard as its wheels are difficult at times and afraid pt. might have trouble if left up ad roro to manage this) Gait Assistive Device: Cane Small Base Quad Wheelchair Training Does the Pt Use a Wheelchair?: No Wheel 50 ft with 2 turns (QC): 9 Wheel 150 ft (QC): 9 Stair Training Stair Training: Handrails/: 1 handrail, uses cane #of Steps: 12 1 Step (curb) (QC): 5 4 Steps (QC): 5 12 Steps (QC): 5 Stairs: Pattern: Step to Balance Picking up an Object (QC): 88 ADL-Treatment Eating (QC): 6 (Pt reports having no difficulty eating lunch) Oral Hygiene (QC): 6 (Completes sitting at sink, pt completes independently ) Bathing Location: L Arm, R Arm, L Upper Leg, R Upper Leg, L Lower Leg (including foot), R Lower Leg (including foot), Chest, Abdomen, Buttocks, Perineal Area Shower/Bathe Self (QC): 6 Upper Body Dressing (QC): 5 (After set up, pt dons shirt by self) Lower Body Dressing (QC): 5 (After set up, pt completes lower body dressing by self) On/Off Footwear (QC): 3 (Assist to don jimmie hose, pt don/doff sock by self) Toileting Hygiene (QC): 6 (pt completes toilet hygiene by self) Toilet Transfer (QC): 6 (Pt transferes to toilet independenty using quad cane) Assessment/Plan Assessment and Plan Assess & Plan/Chief Complaint Assessment: Debility s/p critical illness and VDRF in March 2020 Iliostomy s/p takedown with wound dehiscence and s/p revision with wound vac in place 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 Anasarca hx Hirsutism Poor albumin level improved h/o Ascites s/p paracentesis just bloody serous NGTD Anemia s/p transfusions 2 units 03/17/20 Situational depression Plan: IRF protocol Continue treatment plan Appreciate Surgery management 07/07/20: Monitor white count now 13 down from 16 Watery diarrhea monitoring Butt paste as needed Pain medication as needed 07/08/20: Continue changing wound vac Pain medication before wound vac change Continue strengthening from physical therapy Encourage good nutrition 07/09/20: Continue wound vac changes Bowels still loose Supportive care 07/10/20: Maintain wound vac change Monday, Monday, and Monday Good healing Bowels are still a little bit loose Continue aggressive treatment 07/11/20: Surgery to decide about abx since IV went bad Increase PO nutrition 07/12/20: Monitor nutrition Monitor labs Wound vac changed MWF 07/13/20: Inquire with Dr. Cardona regarding redness around sutures tier over to pill form of pain medication before wound vac Restart Lisinopril as she takes at home 07/14/20: Maintain bowel regimen Wound vac change Monday, Monday, and Monday Pain control Remove IV today 07/15/20: Monitor pain Wound vac changes Reviewed team conference plans 07/16/20: Pain management Fall risk Wound vac management 07/17/20: Wound vac changes Pain control 07/18/20: Pain control Increase therapy Fall risk prevention 07/19/20: Monitor pain Increase po nutrition 07/20/20: Labs stable with hemoglobin 9.2 Encourage good nutrition Pain control with wound vac change 07/21/20: Continue bowel regimen Wound vac until wound healed (1) Debility (2) Evisceration of bowel Status: Acute (3) Surgical wound dehiscence Status: Acute (4) Hypertensive emergency Status: Acute (5) Hypertension Status: Chronic (6) Hyperlipidemia Status: Chronic (7) Coronary artery disease Status: Chronic (8) Abdominal pain Status: Acute (9) Anasarca (10) Anemia (11) Hirsutism (12) Leukocytosis SESAR BEEBE DO Jul 21, 2020 08:44
[2020-07-21] MEDS: CLOPIDOGREL 75 MG (PLAVIX) TABLET PO SCH (09:24)
[2020-07-21] MEDS: ASPIRIN 81 MG CHEW (CHILDREN'S ASA) PO SCH (09:24)
[2020-07-21] MEDS: meTOprolol SUCCINATE 100 MG (TOPROL XL) TAB PO SCH (09:24)
[2020-07-21] MEDS: lisINopril 20 MG (PRINIVIL) TABLET PO SCH ×2 (09:24→20:25)
[2020-07-21] MEDS: amLODIPine 5 MG (NORVASC) TAB PO SCH (09:24)
--- NOTE | 2020-07-21 11:08 | Progress Note - Cardiology ---
Cardiology SOAP Progress Note Subjective: Up working with PT. States she feels good today. Objective: I&O/Vital Signs 07/23/20 07/23/20 07/23/20 05:13 09:00 09:12 Temp 36.2 Pulse 82 92 Resp 16 B/P (MAP) 116/71 (86) 113/79 (90) Pulse Ox 98 O2 Delivery Room Air Room Air 07/23/20 00:00 Intake Total 1180 ml Balance 1180 ml Constitutional: AAO x 3, well-developed, well-nourished Respiratory: No accessory muscle use, No respiratory distress; chest expansion is symmetric, chest is bilaterally symmetric, lungs clear to auscultation Cardiovascular: regular rate-rhythm; No JVD; S1 and S2 Gastrointestional: other (post op abdomen with wound vac in place) Extremities: no lower extremity edema bilateral Neurologic/Psychiatric: grossly intact (moves all extremities) Skin: No rash on exposed areas, No ulcerations on exposed areas A/P: Assessment: Hypertension, under fair control CAD, h/o cor stenting [facility] in Oct 2019 (to treat angina, not to treat NV, according to the patient). Last card cath on 03/05/20: patent stents in the mid left circumflex and the mid right coronary arteries. There is moderate diffuse disease of all coronary arteries. There is moderately severe diffuse disease of the distal left anterior descending. A small caliber obtuse marginal has 70% to 80% ostial stenosis. Normal left ventricular end-diastolic pressure. Echo of 03/05/20: LVEF 60-65%, mild to mod TR, RVSP 35-40 mmHg, mild dilatation of LA S/p colectomy and ileostomy for intestinal obstruction. S/P ileostomy reversal bowel evisceration with closure of abdomen and placement of phasix mesh (hernia repair) by Dr. Ji Plan: Continue current regimen Monitor lab from time to time Adjust antihypertensive regimen as needed BENJI WILLOUGHBY Jul 21, 2020 11:08
--- NOTE | 2020-07-21 11:36 | Physical Therapy Daily Note ---
PT Daily Note-Current Subjective Patient agrees to PT. No c/o. Mental Status Patient Orientation: Normal For Age wound vac Transfers SCALE: Activities may be completed with or without assistive devices. 5-Aiqbfunece-gzspswd completes the activity by him/herself with no assistance f rom a helper. 5-Set-up or Clean-up Assistance-helper sets up or cleans up; patient completes activity. [place] assists only prior to or following the activity. 4-Supervision or Touching Assistance-helper provides verbal cues and/or touching/steadying and/or contact guard assistance as patient completes activity. Assistance may be provided throughout the activity or intermittently. 3-Partial/Moderate Assistance-helper does LESS THAN HALF the effort. [place] lifts, holds or supports trunk or limbs, but provides less than half the effort. 2-Substantial/Maximal Assistance-helper does MORE THAN HALF the effort. [place] lifts or holds trunk or limbs and provides more than half the effort. 1-Bdcukzwxy-syvkwu does ALL the effort. Patient does none of the effort to complete the activity. Or, the assistance of 2 or more helpers is required for the patient to complete the activity. If activity was not attempted, code reason: 7-Patient Refused. 9-Not Applicable-not attempted and the patient did not perform the activity before the current illness, exacerbation or injury. 10-Not Attempted due to Environmental Limitations-(lack of equipment, weather restraints, etc.). 88-Not Attempted due to Medical Conditions or Safety Concerns. Sit to Stand (QC): 6 Car Transfer (QC): 6 Weight Bearing Right Lower Extremity: Right Weight Bearing/Tolerated Left Lower Extremity: Left Weight Bearing/Tolerated Gait Training Does the Patient Walk?: Yes Distance: 400' x 2 Walk 10 feet (QC): 6 Walk 50 ft with 2 Turns(QC): 6 Walk 150 ft (QC): 6 Gait Assistive Device: Cane Small Base Quad Exercises Seated Therapy Exercises: Ankle pumps, Long arc quads Seated Reps: 15 (2 sets) Standing: Heel/toe raises, 3 way Ex=Flex, Abd, Ext, Marching, Mini squats, Side steps Standing Reps: 15 (2 sets) NuStep Minutes: 20 NuStep Workload: 4 (to improve endurance and functional mobility) Assessment Patient tolerated treatment well and is highly motivated with progress. PT Short Term Goals Short Term Goals Time Frame: Jul 11, 2020 Sit to lyin Lying to sitting on side of be: 4 Sit to stand: 5 Walk 150 feet: 4 4 steps: 4 PT Hire Car Driver Goals Group Home Goals PT Group Home Goals Time Frame: Jul 22, 2020 Roll Left & Right (QC): 6 Sit to Lying (QC): 6 Lying-Sitting on Side/Bed(QC): 6 Sit to Stand (QC): 6 Chair/Eou-va-Zeoju Xfer(QC): 6 Toilet Transfer (QC): 6 Car Transfer (QC): 6 Does the Patient Walk: Yes Walk 10 feet (QC): 6 Walk 50ft with 2 Turns (QC): 6 Walk 150 ft (QC): 6 Walking 10ft on Uneven Surface: 6 1 Step (curb) (QC): 6 4 Steps (QC): 6 12 Steps (QC): 4 Picking up an Object (QC): 4 Wheel 50 feet with 2 turns (QC: 9 Wheel 150 feet: 9 PT Plan Treatment/Plan Treatment Plan: Continue Plan of Care Treatment Plan: Bed Mobility, Education, Functional Activity Fern, Functional Strength, Group Therapy, Gait, Safety, Therapeutic Exercise, Transfers Treatment Duration: Jul 22, 2020 Frequency: At least 5 of 7 days/Wk (IRF) Estimated Hrs Per Day: 1.5 hours per day Patient and/or Family Agrees t: Yes Time/GCodes Time In: 1030 Time Out: 1130 Total Billed Treatment Time: 60 Total Billed Treatment 1 visit FA 16 min EX x 3 44 min PHIL GERBER PT Jul 21, 2020 11:36
--- NOTE | 2020-07-21 12:36 | Occupational Ther Daily Note ---
OT Current Status-Daily Note Subjective Pt was alert, at recliner. Agreed to OT. No c/o of pain. Mental Status/Objective Patient Orientation: Person, Place, Time, Situation ADL-Treatment Therapy Code Descriptions/Definitions Functional [place] Measure: 0=Not Assessed/NA 4=Minimal Assistance 1=Total Assistance 5=Supervision or Setup 2=Maximal Assistance 6=Modified [place] 3=Moderate Assistance 7=Complete IndependenceSCALE: Activities may be completed with or without assistive devices. 4-Qqbppcvsyu-wnubbnf completes the activity by him/herself with no assistance from a helper. 5-Set-up or Clean-up Assistance-helper sets up or cleans up; patient completes activity. [place] assists only prior to or following the activity. 4-Supervision or Touching Assistance-helper provides verbal cues and/or touching/steadying and/or contact guard assistance as patient completes activity. Assistance may be provided throughout the activity or intermittently. 3-Partial/Moderate Assistance-helper does LESS THAN HALF the effort. [place] lifts, holds or supports trunk or limbs, but provides less than half the effort. 2-Substantial/Maximal Assistance-helper does MORE THAN HALF the effort. [place] lifts or holds trunk or limbs and provides more than half the effort. 6-Uenaepzsf-aqnfbo does ALL the effort. Patient does none of the effort to co mplete the activity. Or, the assistance of 2 or more helpers is required for the patient to complete the activity. If activity was not attempted, code reason: 7-Patient Refused. 9-Not Applicable-not attempted and the patient did not perform the activity before the current illness, exacerbation or injury. 10-Not Attempted due to Environmental Limitations-(lack of equipment, weather restraints, etc.). 88-Not Attempted due to Medical Conditions or Safety Concerns. Other Treatment Pt sit to stand from recliner to quad cane, independently. Pt ambulated to elevator to go outside, independently. Pt ambulated using quad cane through doorways, over carpeting and around obstacles to increase physical strength and balance to complete ADLs safely and independently. Pt ambulated back to elevator, then room independently using quad cane. Pt transferred to recliner and completed 4 B UE exercises, 2x10 reps using light resistance theraband for strengthening UE to complete daily task. Pt was sitting in recliner, call light/phone in reach. All needs met. Education OT Patient Education: Exercise program Teaching Recipient: Patient Teaching Methods: Demonstration Response to Teaching: Verbalize Understanding, Return Demonstration OT Tool And Die Machinist Goals Mcfp Goals Time Frame: Jul 20, 2020 Eating (QC): 6 Oral Hygiene (QC): 6 Toileting Hygiene (QC): 6 Shower/Bathe Self (QC): 6 Upper Body Dressing (QC): 6 Lower Body Dressing (QC): 6 On/Off Footwear (QC): 6 Additional Goals: 1-Demonstrate ADL Tasks, 2-Verbalize Understanding, 3- ImproveStrength/[place]ern 1=Demonstrate adherence to instructed precautions during ADL tasks. 2=Patient will verbalize/demonstrate understanding of assistive devices/modifi cations for ADL. 3=Patient will improve strength/tolerance for activity to enable patient to perform ADL's. OT Education/Plan Problem List/Assessment Assessment: Decreased UE Strength, Impaired Coordination, Impaired Funct Balance, Impaired I ADL's, Impaired Self-Care Skills Discharge Recommendations Plan/Recommendations: Continue POC Treatment Plan/Plan of Care Treatment,Training & Education: Yes Patient would benefit from OT for education, treatment and training to promote independence in ADL's, mobility, safety and/or upper extremity function for ADL's. Plan of Care: ADL Retraining, Concurrent Therapy, Functional Mobility, Group Exercise/Act as Ind, UE Funct Exercise/Act Treatment Duration: Jul 20, 2020 Frequency: At least 5 of 7 days/Wk (IRF) Estimated Hrs Per Day: 1.5 hours per day Agreement: Yes Rehab Potential: Good Time/GCodes Start Time: 11:30 Stop Time: 12:00 Total Time Billed (hr/min): 30 Billed Treatment Time 1 visit- EX 2 (30) LEYDA HOBSON Jul 21, 2020 12:36
--- NOTE | 2020-07-21 13:29 | Physical Therapy Daily Note ---
PT Daily Note-Current Subjective Patient agrees to PT. Mental Status Patient Orientation: Normal For Age wound vac Transfers SCALE: Activities may be completed with or without assistive devices. 1-Hbeusnwzzs-okwhfaa completes the activity by him/herself with no assistance from a helper. 5-Set-up or Clean-up Assistance-helper sets up or cleans up; patient completes activity. [place] assists only prior to or following the activity. 4-Supervision or Touching Assistance-helper provides verbal cues and/or touching/steadying and/or contact guard assistance as patient completes activity. Assistance may be provided throughout the activity or intermittently. 3-Partial/Moderate Assistance-helper does LESS THAN HALF the effort. [place] lifts, holds or supports trunk or limbs, but provides less than half the effort. 2-Substantial/Maximal Assistance-helper does MORE THAN HALF the effort. [place] lifts or holds trunk or limbs and provides more than half the effort. 7-Svaaxzhop-hxvbor does ALL the effort. Patient does none of the effort to complete the activity. Or, the assistance of 2 or more helpers is required for the patient to complete the activity. If activity was not attempted, code reason: 7-Patient Refused. 9-Not Applicable-not attempted and the patient did not perform the activity before the current illness, exacerbation or injury. 10-Not Attempted due to Environmental Limitations-(lack of equipment, weather restraints, etc.). 88-Not Attempted due to Medical Conditions or Safety Concerns. Sit to Stand (QC): 6 Weight Bearing Right Lower Extremity: Right Weight Bearing/Tolerated Left Lower Extremity: Left Weight Bearing/Tolerated Gait Training Does the Patient Walk?: Yes Distance: 400' x 2 Walk 10 feet (QC): 6 Walk 50 ft with 2 Turns(QC): 6 Walk 150 ft (QC): 6 Gait Assistive Device: Cane Small Base Quad Exercises Seated Therapy Exercises: Ankle pumps, Long arc quads Seated Reps: 15 (x 2 reps) Assessment Current Status: Excellent Progress PT Short Term Goals Short Term Goals Time Frame: Jul 11, 2020 Sit to lyin Lying to sitting on side of be: 4 Sit to stand: 5 Walk 150 feet: 4 4 steps: 4 PT Supervisor [place] Goals Nursing Home Goals PT Supervisor [place] Goals Time Frame: Jul 22, 2020 Roll Left & Right (QC): 6 Sit to Lying (QC): 6 Lying-Sitting on Side/Bed(QC): 6 Sit to Stand (QC): 6 Chair/Dcr-zu-Gzckb Xfer(QC): 6 Toilet Transfer (QC): 6 Car Transfer (QC): 6 Does the Patient Walk: Yes Walk 10 feet (QC): 6 Walk 50ft with 2 Turns (QC): 6 Walk 150 ft (QC): 6 Walking 10ft on Uneven Surface: 6 1 Step (curb) (QC): 6 4 Steps (QC): 6 12 Steps (QC): 4 Picking up an Object (QC): 4 Wheel 50 feet with 2 turns (QC: 9 Wheel 150 feet: 9 PT Plan Treatment/Plan Treatment Plan: Continue Plan of Care Treatment Plan: Bed Mobility, Education, Functional Activity Fern, Functional Strength, Group Therapy, Gait, Safety, Therapeutic Exercise, Transfers Treatment Duration: Jul 22, 2020 Frequency: At least 5 of 7 days/Wk (IRF) Estimated Hrs Per Day: 1.5 hours per day Patient and/or Family Agrees t: Yes Time/GCodes Time In: 1250 Time Out: 1320 Total Billed Treatment Time: 30 Total Billed Treatment 1 visit FA 12 min EX 18 min PHIL GERBER PT Jul 21, 2020 13:29
--- NOTE | 2020-07-21 13:51 | NUR ---
"RD ASSESSMENT PMHx: hypercholesterolemia; HTN; MT; recent ileostomy reversal PT INTERACTION: Pt was awake and pleasant during nutrition assessment. Pt states she has been eating well since last assessment. Note avg PO intake >75% x4d, per chart review. Pt states no issues with nausea, vomiting, constipation, or diarrhea since last assessment. Note last BM was 07/21, and pt currently on bowel regimen of colace PRN; and bisacodyl PRN, per chart review. ABNORMAL NUTRITION-RELATED LAB VALUES LOW: Ca 8.3; alb 3.0 HIGH: Est. kcal needs: 1500 kcal | 20 kcal/kg Est. Pro needs: 90 g Pro | 1.2 g Pro/kg PES STATEMENT: Given current PO intake, no nutrition diagnosis at this time (NO-1.1) INTERVENTION: Continue with current diet order of Regular diet. Will continue to follow and reassess as pt needs, intake, and status change. MONITOR/EVALUATE: PO Intake; Plan of Care; Hydration Status; Weight Status; Lab Values Camron Rogers, MS, RD, LD"
--- NOTE | 2020-07-21 14:12 | Physical Therapy Rehab Re-Cert ---
PT Re-Certification Form Physical Therapy Treatment Plan: Continue Plan of Care Bed Mobility, Education, Functional Activity Fern, Functional Strength, Group Therapy, Gait, Safety, Therapeutic Exercise, Transfers Patient has been performing bed mobility and transfer training, balance and endurance training, functional strengthening, stair training, gait training, and education. Treatment Duration: 08/07/20 Frequency: At least 5 of 7 days/Wk (IRF) Estimated Hrs Per Day: 1.5 hours per day Patient and/or Family Agrees t: Yes Rehab Potential: Fair Current intermediate goals appropriate, continue with current POC PT Short Term Goals Short Term Goals Time Frame: Jul 11, 2020 Sit to lyin Lying to sitting on side of be: 4 Sit to stand: 5 Walk 150 feet: 4 4 steps: 4 PT Instructor Psychiatric Aide Goals Nursing Home Goals PT Nursing Home Goals Time Frame: Jul 22, 2020 Roll Left & Right (QC): 6 Sit to Lying (QC): 6 Lying-Sitting on Side/Bed(QC): 6 Sit to Stand (QC): 6 Chair/Wwu-xc-Voxyw Xfer(QC): 6 Toilet Transfer (QC): 6 Car Transfer (QC): 6 Does the Patient Walk: Yes Walk 10 feet (QC): 6 Walk 50ft with 2 Turns (QC): 6 Walk 150 ft (QC): 6 Walking 10ft on Uneven Surface: 6 1 Step (curb) (QC): 6 4 Steps (QC): 6 12 Steps (QC): 4 Picking up an Object (QC): 4 Wheel 50 feet with 2 turns (QC: 9 Wheel 150 feet: 9 KEI CRUZ PT Jul 21, 2020 14:12
--- NOTE | 2020-07-21 15:03 | NUR ---
Zofran po given per pt request, PCT states that pt just vomited lunch. Pt sitting up in recliner, watching tv, states that she feels better now, requested Sprite.
[2020-07-21 16:45] VITALS: BP 126/72
[2020-07-21] MEDS: ENOXAPARIN 40 MG/0.4 ML (LOVENOX) SYR SC SCH (18:20)
[2020-07-22] MEDS: HYDROcodone/APAP 5 MG/325 MG (LORTAB) TAB PO PRN ×2 (00:22→10:18)
[2020-07-22 06:07] VITALS: BP 126/73
--- NOTE | 2020-07-22 08:22 | Occupational Ther Daily Note ---
OT Current Status-Daily Note Subjective Pt alert at recliner. Agreed to OT. No c/o pain. Pt did report she n/v yesterday after lunch, but feels good today. Mental Status/Objective Patient Orientation: Person, Place, Time, Situation ADL-Treatment Sit to stand from recliner with quad cane, independently. Ambulated to bathroom using quad cane, supervision (assist to manipulate wound vac on IV pole). Transferred to toilet and completed toilet hygiene using quad cane, independently. Pt ambulated to shower bench for showering. OT covered wound. Pt completes bathing by self using shower bench, grab bars, and hand held shower. Takes time to complete all steps of showering After therapy, pt sitting at sink completing grooming. Call light in reach. All needs met in room. Therapy Code Descriptions/Definitions Functional [place] Measure: 0=Not Assessed/NA 4=Minimal Assistance 1=Total Assistance 5=Supervision or Setup 2=Maximal Assistance 6=Modified [place] 3=Moderate Assistance 7=Complete IndependenceSCALE: Activities may be completed with or without assistive devices. 2-Qbexgexcat-lwaspkz completes the activity by him/herself with no assistance from a helper. 5-Set-up or Clean-up Assistance-helper sets up or cleans up; patient completes activity. [place] assists only prior to or following the activity. 4-Supervision or Touching Assistance-helper provides verbal cues and/or touching/steadying and/or contact guard assistance as patient completes activity. Assistance may be provided throughout the activity or intermittently. 3-Partial/Moderate Assistance-helper does LESS THAN HALF the effort. [place] lifts, holds or supports trunk or limbs, but provides less than half the effort. 2-Substantial/Maximal Assistance-helper does MORE THAN HALF the effort. [place] lifts or holds trunk or limbs and provides more than half the effort. 6-Rlhxrxdlk-knfrpt does ALL the effort. Patient does none of the effort to complete the activity. Or, the assistance of 2 or more helpers is required for the patient to complete the activity. If activity was not attempted, code reason: 7-Patient Refused. 9-Not Applicable-not attempted and the patient did not perform the activity before the current illness, exacerbation or injury. 10-Not Attempted due to Environmental Limitations-(lack of equipment, weather restraints, etc.). 88-Not Attempted due to Medical Conditions or Safety Concerns. Oral Hygiene (QC): 6 (Pt completes indpendently, sitting at sink ) Bathing Location: L Arm, R Arm, L Upper Leg, R Upper Leg, L Lower Leg (including foot), R Lower Leg (including foot), Chest, Abdomen, Buttocks, Perineal Area Shower/Bathe Self (QC): 6 Upper Body Dressing (QC): 6 (Pt able to don shirt independently ) Lower Body Dressing (QC): 6 (Pt able to complete lower body dressing, indpendently) On/Off Footwear: 6 (Pt able to don/doff socks independently.) Toileting Hygiene (QC): 6 (Pt completes toilet hygiene independently ) Toilet Transfer (QC): 6 (Pt completes toilet transfer indpendently, using quad cane) OT Rack Maker Goals Rack Maker Goals Time Frame: Jul 20, 2020 Eating (QC): 6 Oral Hygiene (QC): 6 Toileting Hygiene (QC): 6 Shower/Bathe Self (QC): 6 Upper Body Dressing (QC): 6 Lower Body Dressing (QC): 6 On/Off Footwear (QC): 6 Additional Goals: 1-Demonstrate ADL Tasks, 2-Verbalize Understanding, 3- ImproveStrength/Fern 1=Demonstrate adherence to instructed precautions during ADL tasks. 2=Patient will verbalize/demonstrate understanding of assistive devices/modifications for ADL. 3=Patient will improve strength/tolerance for activity to enable patient to perform ADL's. OT Education/Plan Problem List/Assessment Assessment: Decreased UE Strength, Impaired Coordination, Impaired I ADL's, Impaired Self-Care Skills Discharge Recommendations Plan/Recommendations: Continue POC Treatment Plan/Plan of Care Patient would benefit from OT for education, treatment and training to promote independence in ADL's, mobility, safety and/or upper extremity function for ADL's. Plan of Care: ADL Retraining, Concurrent Therapy, Functional Mobility, Group Exercise/Act as Ind, UE Funct Exercise/Act Treatment Duration: Jul 20, 2020 Frequency: At least 5 of 7 days/Wk (IRF) Estimated Hrs Per Day: 1.5 hours per day Agreement: Yes Rehab Potential: Fair Time/GCodes Start Time: 07:30 Stop Time: 08:30 Total Time Billed (hr/min): 60 Billed Treatment Time 1 visit-ADL 4(60 mins) LEYDA HOBSON Jul 22, 2020 08:22
--- NOTE | 2020-07-22 08:56 | PM&R Progress Note ---
Subjective HPI/CC On Admission Date Seen by Provider: Jul 22, 2020 Time Seen by Provider: 08:00 Subjective/Events-last exam 07/22/20: Wound vac to change today NO major issues 07/21/20: Bowels are moving everyday Pain is well controlled Wound vac is helping the wound Doing very well 07/20/20: Pt doing very well Hgb 9.2 Albumin good at 3.0 Wound vac changed every Monday, Monday, and Monday07/19/20: Patient doing well No pain reported NO falls Eating well 07/18/20: Patient denies new issues Pain controlled Sutures removed except 1 07/17/20: Wound vac changed MWF BM++ Cardiology consulted for elevated BP 07/16/20: Wound vac changed one hour after pain pill given which is helping a great deal Pain is overall doing well Bowels are moving today Wound is much improved on her abdomen Overall progressing nicely 07/15/20: Patient has some loose stools which we will continue Changing wound VAC every Monday and Monday Feels like she is making some progress No falls reported 07/14/20: Bowels moved yesterday No major issues Wound vac changed every Monday, Monday and Monday Discharge at the end of the week hopefully 07/13/20: Hgb stable at 8.2, potassium 3.5 Redness around sutures will inquire with Dr. Cardona about removing them No picc line will be needed since we will shift to oral pain medication an hour before the wound vac change Lisinopril will be added for elevated BP 07/12/20: Patient feels good Regular diet tolerated No pain is reported except when wound vac changed Labs due tomorrow 07/11/20: Patient doing well Regular diet tolerated well Wound vac MWF Abx will be changed to PO since IV went bad and can't replace due to poor access 07/10/20: Changed wound vac and that will be done Monday, Monday and Monday Good healing Bowels are loose but that is a chronic issue Participating in therapy 07/09/20: Pt reports abdominal pain where the wound vac is Bowels are still loose and watery Overall feels like she is doing pretty good otherwise Chronic debility is improving 07/08/20: Needs pain medication before wound vac change Overall feels pretty good Eating and drinking well Overall progressing nicely 07/07/20: WBC 13.4 down from 16 Watery diarrhea Buttpaste ordered for ramos-area Lortab taken this morning Checked meds and labs Reviewed therapy notes Conferred with junior legal secretary of Systems General: Fatigue, Malaise Neurological: Weakness Objective Exam Vital Signs Vital Signs Date Time Temp Pulse Resp B/P (MAP) Pulse Ox O2 Delivery O2 Flow Rate FiO2 07/22/20 17:33 36.1 87 12 140/83 (102) 98 Room Air Capillary Refill : Less Than 3 Seconds General Appearance: No Apparent Distress, Chronically ill HEENT: PERRL/EOMI, Normal ENT Inspection, Pharynx Normal Neck: Full Range of Motion, Normal Inspection, Non Tender, Supple Respiratory: Chest Non Tender, Lungs Clear, Normal Breath Sounds, No Accessory Muscle Use, No Respiratory Distress, Decreased Breath Sounds Cardiovascular: Regular Rate, Rhythm, No Gallop, No JVD, No Murmur, Normal Peripheral Pulses Gastrointestinal: Normal Bowel Sounds, No Organomegaly, No Pulsatile Mass, Soft, Tenderness, Other (wound vac in place) Back: Normal Inspection, No CVA Tenderness, No Vertebral Tenderness Extremity: Normal Capillary Refill, Normal Inspection, Normal Range of Motion, Non Tender, No Calf Tenderness, Pedal Edema Neurologic/Psychiatric: Alert, Oriented x3, No Motor/Sensory Deficits, Normal Mood/Affect, leak hunter II-XII Norm as Tested, Motor Weakness (generalized) Skin: Normal Color, Warm/Dry Lymphatic: No Adenopathy Results/Procedures Lab Patient resulted labs reviewed. FIM Transfers Therapy Code Descriptions/Definitions Functional [place] Measure: 0=Not Assessed/NA 4=Minimal Assistance 1=Total Assistance 5=Supervision or Setup 2=Maximal Assistance 6=Modified [place] 3=Moderate Assistance 7=Complete IndependenceSCALE: Activities may be completed with or without assistive devices. 2-Bpicwubeiu-fduxlhu completes the activity by him/herself with no assistance from a helper. 5-Set-up or Clean-up Assistance-helper sets up or cleans up; patient completes activity. [place] assists only prior to or following the activity. 4-Supervision or Touching Assistance-helper provides verbal cues and/or touching/steadying and/or contact guard assistance as patient completes activity. Assistance may be provided throughout the activity or intermittently. 3-Partial/Moderate Assistance-helper does LESS THAN HALF the effort. [place] lifts, holds or supports trunk or limbs, but provides less than half the effort. 2-Substantial/Maximal Assistance-helper does MORE THAN HALF the effort. [place] lifts or holds trunk or limbs and provides more than half the effort. 6-Tjkculpdb-xauizd does ALL the effort. Patient does none of the effort to complete the activity. Or, the assistance of 2 or more helpers is required for the patient to complete the activity. If activity was not attempted, code reason: 7-Patient Refused. 9-Not Applicable-not attempted and the patient did not perform the activity before the current illness, exacerbation or injury. 10-Not Attempted due to Environmental Limitations-(lack of equipment, weather restraints, etc.). 88-Not Attempted due to Medical Conditions or Safety Concerns. Roll Left to Right (QC): 6 Sit to Lying (QC): 6 Sit to Stand (QC): 6 Chair/Hja-wr-Lgnqk Xfer(QC): 6 Car Transfer (QC): 6 Gait Training Does the Patient Walk?: Yes Distance: 400' x 2 Walk 10 feet (QC): 6 Walk 50 ft with 2 Turns(QC): 6 Walk 150 ft (QC): 6 Walking 10ft/uneven surface-QC: 0 (will assess at follow up visit) Gait Persons Needed: 0 (needed only to assist with IV standard as its wheels are difficult at times and afraid pt. might have trouble if left up ad roro to manage this) Gait Assistive Device: Cane Small Base Quad Wheelchair Training Does the Pt Use a Wheelchair?: No Wheel 50 ft with 2 turns (QC): 9 Wheel 150 ft (QC): 9 Stair Training Stair Training: Handrails/: 1 handrail, uses cane #of Steps: 12 1 Step (curb) (QC): 5 4 Steps (QC): 5 12 Steps (QC): 5 Stairs: Pattern: Step to Balance Picking up an Object (QC): 88 ADL-Treatment Eating (QC): 6 (Pt reports having no difficulty eating lunch) Oral Hygiene (QC): 6 (Pt completes indpendently, sitting at sink ) Bathing Location: L Arm, R Arm, L Upper Leg, R Upper Leg, L Lower Leg (including foot), R Lower Leg (including foot), Chest, Abdomen, Buttocks, Perineal Area Shower/Bathe Self (QC): 6 Upper Body Dressing (QC): 6 (Pt able to don shirt independently ) Lower Body Dressing (QC): 6 (Pt able to complete lower body dressing, indpendently) On/Off Footwear (QC): 6 (Pt able to don/doff socks independently.) Toileting Hygiene (QC): 6 (Pt completes toilet hygiene independently ) Toilet Transfer (QC): 6 (Pt completes toilet transfer indpendently, using quad cane) Assessment/Plan Assessment and Plan Assess & Plan/Chief Complaint Assessment: Debility s/p critical illness and VDRF in March 2020 Iliostomy s/p takedown with wound dehiscence and s/p revision with wound vac in place 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 Anasarca hx Hirsutism Poor albumin level improved h/o Ascites s/p paracentesis just bloody serous NGTD Anemia s/p transfusions 2 units 03/17/20 Situational depression Plan: IRF protocol Continue treatment plan Appreciate Surgery management 07/07/20: Monitor white count now 13 down from 16 Watery diarrhea monitoring Butt paste as needed Pain medication as needed 07/08/20: Continue changing wound vac Pain medication before wound vac change Continue strengthening from physical therapy Encourage good nutrition 07/09/20: Continue wound vac changes Bowels still loose Supportive care 07/10/20: Maintain wound vac change Monday, Monday, and Monday Good healing Bowels are still a little bit loose Continue aggressive treatment 07/11/20: Surgery to decide about abx since IV went bad Increase PO nutrition 07/12/20: Monitor nutrition Monitor labs Wound vac changed MWF 07/13/20: Inquire with Dr. Cardona regarding redness around sutures roll coverer to pill form of pain medication before wound vac Restart Lisinopril as she takes at home 07/14/20: Maintain bowel regimen Wound vac change Monday, Monday, and Monday Pain control Remove IV today 07/15/20: Monitor pain Wound vac changes Reviewed team conference plans 07/16/20: Pain management Fall risk Wound vac management 07/17/20: Wound vac changes Pain control 07/18/20: Pain control Increase therapy Fall risk prevention 07/19/20: Monitor pain Increase po nutrition 07/20/20: Labs stable with hemoglobin 9.2 Encourage good nutrition Pain control with wound vac change 07/21/20: Continue bowel regimen Wound vac until wound healed 07/22/20: Change wound vac Monitor pain Continue therapies (1) Debility (2) Evisceration of bowel Status: Acute (3) Surgical wound dehiscence Status: Acute (4) Hypertensive emergency Status: Acute (5) Hypertension Status: Chronic (6) Hyperlipidemia Status: Chronic (7) Coronary artery disease Status: Chronic (8) Abdominal pain Status: Acute (9) Anasarca (10) Anemia (11) Hirsutism (12) Leukocytosis SESAR BEEBE DO Jul 22, 2020 08:56
[2020-07-22 09:08] VITALS: BP 126/82
[2020-07-22] MEDS: lisINopril 20 MG (PRINIVIL) TABLET PO SCH ×2 (09:09→20:34)
[2020-07-22] MEDS: ASPIRIN 81 MG CHEW (CHILDREN'S ASA) PO SCH (09:09)
[2020-07-22] MEDS: meTOprolol SUCCINATE 100 MG (TOPROL XL) TAB PO SCH (09:09)
[2020-07-22] MEDS: amLODIPine 5 MG (NORVASC) TAB PO SCH (09:09)
[2020-07-22] MEDS: CLOPIDOGREL 75 MG (PLAVIX) TABLET PO SCH (09:09)
--- NOTE | 2020-07-22 10:21 | NUR ---
CM/SS CONCURRENT DOCUMENTATION Continue to search for a home health agency that will cover patient's service area and accept her as an uninsured patient. HH: Referral to [facility] this a.m., they are affiliated with [facility] in [place], [place] and just recently added the [place] area to service option. Discussed case with Evy, she agreed to review brief clinical and understood the visits would be M-W-F for vac change. Await their confirmation or denial. DENIALS: [facility] (no pay source) [facility], [facility] (no pay source and distance) [facility] (out of service area too far) [facility] (referral reviewed, denied, no pay source and care needed) [facility] (not in service area) [facility] ([place] [facility] [place] [facility] and denied) [employer] Examiner spoke with patient's friend, Donna Perez, yesterday since she had taken patient into her home last major surgery, and this would be in [place] service area. However, Donna has increased her private business two-fold and she is not able to take on any responsibility or share her home at this time. Plan continues to be for patient to return home. Uninsured status is a major rosio regarding post hospital care planning. She has no pending funding at this time due to the specific circumstances and criteria of each source. Addendum: 07/22/20 at 1152 by LINDSEY LUGO DENIALS: [facility] (no pay source and level of care needed) Addendum: 07/22/20 at 1206 by LINDSEY RICHARDS [facility] DENIALS: [facility] (denied, no payor source, no pending payor source, and at the max of their jasbir financials)
--- NOTE | 2020-07-22 11:56 | Physical Therapy Daily Note ---
PT Daily Note-Current Subjective Pt. agrees to Rx. States she is having new onset pain in right lateral elbow. "just started" rates 6/10. Pain Numeric Pain Scale: 6 Location: Right Location Body Site: Elbow Pain Description: Burning Comment: lateral epicondyle area tneder to touch, no open skin or redness or heat no Mental Status Patient Orientation: Normal For Age Attachments: Other-See Comments (wound vacc) Transfers SCALE: Activities may be completed with or without assistive devices. 5-Nalafocxmj-tdpmnvm completes the activity by him/herself with no assistance from a helper. 5-Set-up or Clean-up Assistance-helper sets up or cleans up; patient completes activity. [place] assists only prior to or following the activity. 4-Supervision or Touching Assistance-helper provides verbal cues and/or touching/steadying and/or contact guard assistance as patient completes activity. Assistance may be provided throughout the activity or intermittently. 3-Partial/Moderate Assistance-helper does LESS THAN HALF the effort. [place] lifts, holds or supports trunk or limbs, but provides less than half the effort. 2-Substantial/Maximal Assistance-helper does MORE THAN HALF the effort. [place] lifts or holds trunk or limbs and provides more than half the effort. 6-Ymngpramb-iuarmf does ALL the effort. Patient does none of the effort to complete the activity. Or, the assistance of 2 or more helpers is required for the patient to complete the activity. If activity was not attempted, code reason: 7-Patient Refused. 9-Not Applicable-not attempted and the patient did not perform the activity before the current illness, exacerbation or injury. 10-Not Attempted due to Environmental Limitations-(lack of equipment, weather restraints, etc.). 88-Not Attempted due to Medical Conditions or Safety Concerns. Roll Left & Right (QC): 6 Sit to Lying (QC): 6 Lying to Sitting/Side of Bed(Q: 6 Sit to Stand (QC): 6 Chair/Ibb-xm-Tlzyy Xfer(QC): 6 Toilet Transfer (QC): 6 Weight Bearing Right Lower Extremity: Right Weight Bearing/Tolerated Left Lower Extremity: Left Weight Bearing/Tolerated Gait Training Does the Patient Walk?: Yes Walk 10 feet (QC): 6 Walk 50 ft with 2 Turns(QC): 6 Walk 150 ft (QC): 6 Gait Persons Needed: 1 (*) Gait Assistive Device: Cane Small Base Quad pt. requires assist to walk only for wound vacc on IV standard Wheelchair Training Does the Pt Use a Wheelchair?: No Stair Training Stair Training: Handrails/: 2 handrails #of Steps: 8 4 Steps (QC): 5 Stairs: Pattern: Reciprocal Balance Picking up an Object (QC): 5 Exercises Standing: Hip Abduction, Hamstring curls, Heel/toe raises, Marching, Mini squats Standing Reps: 12 NuStep Minutes: 10 NuStep Workload: 4 Treatments ice applied to right lateral elbow 10 minutes with pt commenting on positive results, less pain Assessment Current Status: Good Progress PT Short Term Goals Short Term Goals Time Frame: Jul 11, 2020 Sit to lyin Lying to sitting on side of be: 4 Sit to stand: 5 Walk 150 feet: 4 4 steps: 4 PT Pharmacovigilance Scientist Goals Detention Goals PT Pharmacovigilance Scientist Goals Time Frame: Jul 22, 2020 Roll Left & Right (QC): 6 Sit to Lying (QC): 6 Lying-Sitting on Side/Bed(QC): 6 Sit to Stand (QC): 6 Chair/Gmb-fn-Ppuhp Xfer(QC): 6 Toilet Transfer (QC): 6 Car Transfer (QC): 6 Does the Patient Walk: Yes Walk 10 feet (QC): 6 Walk 50ft with 2 Turns (QC): 6 Walk 150 ft (QC): 6 Walking 10ft on Uneven Surface: 6 1 Step (curb) (QC): 6 4 Steps (QC): 6 12 Steps (QC): 4 Picking up an Object (QC): 4 Wheel 50 feet with 2 turns (QC: 9 Wheel 150 feet: 9 PT Plan Treatment/Plan Treatment Plan: Continue Plan of Care Treatment Plan: Bed Mobility, Education, Functional Activity Fern, Functional Strength, Group Therapy, Gait, Safety, Therapeutic Exercise, Transfers Treatment Duration: Jul 22, 2020 Frequency: At least 5 of 7 days/Wk (IRF) Estimated Hrs Per Day: 1.5 hours per day Patient and/or Family Agrees t: Yes Safety Risks/Education Patient Education: Gait Training, Transfer Techniques, Steps Teaching Recipient: Patient Teaching Methods: Demonstration, Discussion Response to Teaching: Verbalize Understanding, Return Demonstration Time/GCodes Time In: 1045 Time Out: 1145 Total Billed Treatment Time: 60 Total Billed Treatment 1,GT15m,EX25m,FA20m AN [employer] POLICY ANALYST Jul 22, 2020 11:56
--- NOTE | 2020-07-22 14:51 | Therapy Group Daily Note ---
Therapy Daily Group Note Patient Education Topic Exercises, Other List Below (positioning) Exercises LE Seated Exercise, UE Exercise Session Ratio (pt:therapist): 4:1 Goal of Session: UE/LE Strengthing, Other (list) (positioning) Goal Met for this Session: Yes Pt Benefit of Group: Contributions to Others, F/U Use of Strategies @Home, Increased Functional Safety, Increased Functional Strength, Improved Cognition, Recognition of Peers, Socialization Other/Notes Pt transported using w/c to OT/PT. Group consisted of introductions (name, place living, biggest challenge), socialization, seated UE/LE exercises (theraband UE) and educational topics of benefits of exercise and positioning. Pt introduced self and actively listened to peer introductions. Pt was able to complete UE/LE exercises and attentive to educational topics. Pt demonstrated knowledge of educational topics by giving personal strategies and participating in peer conversations.After therapy pt in recliner. Call light/phone in reach. All needs met. Start Time: 13:00 Stop Time: 14:00 Total Billed Treatment Time: 60 Total Billed Treatment 1 GRP (60) LEYDA HOBSON Jul 22, 2020 14:50
--- NOTE | 2020-07-22 15:17 | Occ Therapy Rehab Re-Cert ---
OT Re-Certification Form Plan of Care: ADL Retraining, Concurrent Therapy, Functional Mobility, Group Exercise/Act as Ind, UE Funct Exercise/Act Continue LTGs. Pt is working towards higher fx IND. This recertification due 07/20/20. Continue tx through 08/03/20. Treatment Duration: 08/03/20 Frequency: At least 5 of 7 days/Wk (IRF) Estimated Hrs Per Day: 1.5 hours per day Agreement: Yes Rehab Potential: Good OT Snf Goals Machine Operator Replanter Goals Time Frame: Jul 20, 2020 Eating (QC): 6 Oral Hygiene (QC): 6 Toileting Hygiene (QC): 6 Shower/Bathe Self (QC): 6 Upper Body Dressing (QC): 6 Lower Body Dressing (QC): 6 On/Off Footwear (QC): 6 Additional Goals: 1-Demonstrate ADL Tasks, 2-Verbalize Understanding, 3- ImproveStrength/Fern 1=Demonstrate adherence to instructed precautions during ADL tasks. 2=Patient will verbalize/demonstrate understanding of assistive devices/modifications for ADL. 3=Patient will improve strength/tolerance for activity to enable patient to perform ADL's. MAISHA DAVENPORT OTR Jul 22, 2020 15:17
--- NOTE | 2020-07-22 15:51 | NUR ---
Team Conference Met with patient to discuss details specific to today's meeting. Upon informing patient of her scheduled discharge date of 07/27, she became tearful. Patient states she is fearful of returning home and the complications that could potentially arise with her wound. This expert medical writer ensured patient the surgeon will be by to assess her wound, and he will ultimately make the decision in regard to duration of wound vac. It was explained to the patient that she will not be sent home with the wound vac. In fact, the plan is to remove the wound vac and provide sufficient teaching/training specific to wound dressing, to ensure she feels confident and returns home safely. This expert medical writer recapitulated her notable progress with therapy, i.e., transfers, ambulation, and ADLs are being completed with independence. Despite this encouragement, patient remained tearful. Patient agreeable to dismissal date, pending surgeon's recommendation and teaching/training.
[2020-07-22 17:33] VITALS: BP 140/83
[2020-07-22] MEDS: ENOXAPARIN 40 MG/0.4 ML (LOVENOX) SYR SC SCH (18:19)
[2020-07-23] MEDS: HYDROcodone/APAP 5 MG/325 MG (LORTAB) TAB PO PRN ×2 (00:16→09:13)
[2020-07-23 05:13] VITALS: BP 116/71
--- NOTE | 2020-07-23 06:14 | PM&R Progress Note ---
Subjective HPI/CC On Admission Date Seen by Provider: Jul 23, 2020 Time Seen by Provider: 08:00 Subjective/Events-last exam 07/23/20: Pt doing pretty well today Leaving wound vac off as of Monday Very anxious about DC, she will be taught how to change her dressing No other new issues 07/22/20: Wound vac to change today NO major issues 07/21/20: Bowels are moving everyday Pain is well controlled Wound vac is helping the wound Doing very well 07/20/20: Pt doing very well Hgb 9.2 Albumin good at 3.0 Wound vac changed every Monday, Monday, and Monday07/19/20: Patient doing well No pain reported NO falls Eating well 07/18/20: Patient denies new issues Pain controlled Sutures removed except 1 07/17/20: Wound vac changed MWF BM++ Cardiology consulted for elevated BP 07/16/20: Wound vac changed one hour after pain pill given which is helping a great deal Pain is overall doing well Bowels are moving today Wound is much improved on her abdomen Overall progressing nicely 07/15/20: Patient has some loose stools which we will continue Changing wound VAC every Monday and Monday Feels like she is making some progress No falls reported 07/14/20: Bowels moved yesterday No major issues Wound vac changed every Monday, Monday and Monday Discharge at the end of the week hopefully 07/13/20: Hgb stable at 8.2, potassium 3.5 Redness around sutures will inquire with Dr. Cardona about removing them No picc line will be needed since we will shift to oral pain medication an hour before the wound vac change Lisinopril will be added for elevated BP 07/12/20: Patient feels good Regular diet tolerated No pain is reported except when wound vac changed Labs due tomorrow 07/11/20: Patient doing well Regular diet tolerated well Wound vac MWF Abx will be changed to PO since IV went bad and can't replace due to poor access 07/10/20: Changed wound vac and that will be done Monday, Monday and Monday Good healing Bowels are loose but that is a chronic issue Participating in therapy 07/09/20: Pt reports abdominal pain where the wound vac is Bowels are still loose and watery Overall feels like she is doing pretty good otherwise Chronic debility is improving 07/08/20: Needs pain medication before wound vac change Overall feels pretty good Eating and drinking well Overall progressing nicely 07/07/20: WBC 13.4 down from 16 Watery diarrhea Buttpaste ordered for ramos-area Lortab taken this morning Checked meds and labs Reviewed therapy notes Conferred with manager export of Systems General: Fatigue, Malaise Neurological: Weakness Objective Exam Vital Signs Vital Signs Date Time Temp Pulse Resp B/P (MAP) Pulse Ox O2 Delivery O2 Flow Rate FiO2 07/23/20 21:44 Room Air 07/23/20 18:35 36.3 100 20 113/71 (85) 95 Capillary Refill : Less Than 3 Seconds General Appearance: No Apparent Distress, Chronically ill HEENT: PERRL/EOMI, Normal ENT Inspection, Pharynx Normal Neck: Full Range of Motion, Normal Inspection, Non Tender, Supple Respiratory: Chest Non Tender, Lungs Clear, Normal Breath Sounds, No Accessory Muscle Use, No Respiratory Distress, Decreased Breath Sounds Cardiovascular: Regular Rate, Rhythm, No Gallop, No JVD, No Murmur, Normal Peripheral Pulses Gastrointestinal: Normal Bowel Sounds, No Organomegaly, No Pulsatile Mass, Soft, Tenderness, Other (wound vac in place) Back: Normal Inspection, No CVA Tenderness, No Vertebral Tenderness Extremity: Normal Capillary Refill, Normal Inspection, Normal Range of Motion, Non Tender, No Calf Tenderness, Pedal Edema Neurologic/Psychiatric: Alert, Oriented x3, No Motor/Sensory Deficits, Normal Mood/Affect, glue mill operator II-XII Norm as Tested, Motor Weakness (generalized) Skin: Normal Color, Warm/Dry Lymphatic: No Adenopathy Results/Procedures Lab Patient resulted labs reviewed. FIM Transfers Therapy Code Descriptions/Definitions Functional [place] Measure: 0=Not Assessed/NA 4=Minimal Assistance 1=Total Assistance 5=Supervision or Setup 2=Maximal Assistance 6=Modified [place] 3=Moderate Assistance 7=Complete IndependenceSCALE: Activities may be completed with or without assistive devices. 1-Mutgczokuw-hyupngv completes the activity by him/herself with no assistance from a helper. 5-Set-up or Clean-up Assistance-helper sets up or cleans up; patient completes activity. [place] assists only prior to or following the activity. 4-Supervision or Touching Assistance-helper provides verbal cues and/or touching/steadying and/or contact guard assistance as patient completes activ ity. Assistance may be provided throughout the activity or intermittently. 3-Partial/Moderate Assistance-helper does LESS THAN HALF the effort. [place] lifts, holds or supports trunk or limbs, but provides less than half the effort. 2-Substantial/Maximal Assistance-helper does MORE THAN HALF the effort. [place] lifts or holds trunk or limbs and provides more than half the effort. 5-Ozzsvecfd-rdqjfc does ALL the effort. Patient does none of the effort to complete the activity. Or, the assistance of 2 or more helpers is required for the patient to complete the activity. If activity was not attempted, code reason: 7-Patient Refused. 9-Not Applicable-not attempted and the patient did not perform the activity before the current illness, exacerbation or injury. 10-Not Attempted due to Environmental Limitations-(lack of equipment, weather restraints, etc.). 88-Not Attempted due to Medical Conditions or Safety Concerns. Roll Left to Right (QC): 6 Sit to Lying (QC): 6 Sit to Stand (QC): 6 Chair/Wfw-ru-Kiahz Xfer(QC): 6 Car Transfer (QC): 6 Gait Training Does the Patient Walk?: Yes Distance: 400' x 2 Walk 10 feet (QC): 6 Walk 50 ft with 2 Turns(QC): 6 Walk 150 ft (QC): 6 Walking 10ft/uneven surface-QC: 0 (will assess at follow up visit) Gait Persons Needed: 1 (*) Gait Assistive Device: Cane Small Base Quad Wheelchair Training Does the Pt Use a Wheelchair?: No Wheel 50 ft with 2 turns (QC): 9 Wheel 150 ft (QC): 9 Stair Training Stair Training: Handrails/: 2 handrails #of Steps: 8 1 Step (curb) (QC): 5 4 Steps (QC): 5 12 Steps (QC): 5 Stairs: Pattern: Reciprocal Balance Picking up an Object (QC): 5 ADL-Treatment Eating (QC): 6 (Pt reports having no difficulty eating lunch) Oral Hygiene (QC): 6 (Pt completes indpendently, sitting at sink ) Bathing Location: L Arm, R Arm, L Upper Leg, R Upper Leg, L Lower Leg (including foot), R Lower Leg (including foot), Chest, Abdomen, Buttocks, Perineal Area Shower/Bathe Self (QC): 6 Upper Body Dressing (QC): 6 (Pt able to don shirt independently ) Lower Body Dressing (QC): 6 (Pt able to complete lower body dressing, indpendently) On/Off Footwear (QC): 6 (Pt able to don/doff socks independently.) Toileting Hygiene (QC): 6 (Pt completes toilet hygiene independently ) Toilet Transfer (QC): 6 (Pt completes toilet transfer indpendently, using quad cane) Assessment/Plan Assessment and Plan Assess & Plan/Chief Complaint Assessment: Debility s/p critical illness and VDRF in March 2020 Iliostomy s/p takedown with wound dehiscence and s/p revision with wound vac in place 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 Anasarca hx Hirsutism Poor albumin level improved h/o Ascites s/p paracentesis just bloody serous NGTD Anemia s/p transfusions 2 units 03/17/20 Situational depression Plan: IRF protocol Continue treatment plan Appreciate Surgery management 07/07/20: Monitor white count now 13 down from 16 Watery diarrhea monitoring Butt paste as needed Pain medication as needed 07/08/20: Continue changing wound vac Pain medication before wound vac change Continue strengthening from physical therapy Encourage good nutrition 07/09/20: Continue wound vac changes Bowels still loose Supportive care 07/10/20: Maintain wound vac change Monday, Monday, and Monday Good healing Bowels are still a little bit loose Continue aggressive treatment 07/11/20: Surgery to decide about abx since IV went bad Increase PO nutrition 07/12/20: Monitor nutrition Monitor labs Wound vac changed MWF 07/13/20: Inquire with Dr. Cardona regarding redness around sutures cryolite recovery operator to pill form of pain medication before wound vac Restart Lisinopril as she takes at home 07/14/20: Maintain bowel regimen Wound vac change Monday, Monday, and Monday Pain control Remove IV today 07/15/20: Monitor pain Wound vac changes Reviewed team conference plans 07/16/20: Pain management Fall risk Wound vac management 07/17/20: Wound vac changes Pain control 07/18/20: Pain control Increase therapy Fall risk prevention 07/19/20: Monitor pain Increase po nutrition 07/20/20: Labs stable with hemoglobin 9.2 Encourage good nutrition Pain control with wound vac change 07/21/20: Continue bowel regimen Wound vac until wound healed 07/22/20: Change wound vac Monitor pain Continue therapies 07/23/20: Discontinue wound vac tomorrow Anxious about discharge Monitor pain (1) Debility (2) Evisceration of bowel Status: Acute (3) Surgical wound dehiscence Status: Acute (4) Hypertensive emergency Status: Acute (5) Hypertension Status: Chronic (6) Hyperlipidemia Status: Chronic (7) Coronary artery disease Status: Chronic (8) Abdominal pain Status: Acute (9) Anasarca (10) Anemia (11) Hirsutism (12) Leukocytosis SESAR BEEBE DO Jul 23, 2020 06:14
--- NOTE | 2020-07-23 09:00 | Occupational Ther Daily Note ---
OT Current Status-Daily Note Subjective Pt was alert, sitting at recliner. Pt agreed to OT. Pain reported to nursing and were getting pt pain meds. Mental Status/Objective Patient Orientation: Person, Place, Time, Situation Attachments: Other-See Comments Wound vac ADL-Treatment Sit to stand from recliner with quad cane, independently. Ambulated to bathroom using quad cane, supervision (assist to manipulate wound vac on IV pole). Reached for clean socks and briefs on counter and took them to bathroom for dressing. Transferred to toilet and completed toilet hygiene using quad cane, independently. Pt ambulated to shower bench for showering. Pt doffed hospital gown and socks independently. OT covered wound. Pt completes bathing by self using shower bench, grab bars, and hand held shower. Takes time to complete all steps of showering. Pt able to take coverings off of wound, independently. Pt dons shirt independently after reaching for it from the IV pole. Pt completed lower body dressing independently. Donned socks, independently. Pt then ambulates to sink, and sits at chair to compete oral hygiene, independently. Once finished, Pt ambulated to elevator to go to gift shop, independently. Pt ambulated using quad cane through doorways and around obstacles to increase physical strength and balance to complete ADLs safely and independently.After therapy, pt sitting at recliner. Call light in reach. All needs met in room. Therapy Code Descriptions/Definitions Functional [place] Measure: 0=Not Assessed/NA 4=Minimal Assistance 1=Total Assistance 5=Supervision or Setup 2=Maximal Assistance 6=Modified [place] 3=Moderate Assistance 7=Complete IndependenceSCALE: Activities may be completed with or without assistive devices. 4-Qryzjojaoc-muvwqks completes the activity by him/herself with no assistance from a helper. 5-Set-up or Clean-up Assistance-helper sets up or cleans up; patient completes activity. [place] assists only prior to or following the activity. 4-Supervision or Touching Assistance-helper provides verbal cues and/or touching/steadying and/or contact guard assistance as patient completes activity. Assistance may be provided throughout the activity or intermittently. 3-Partial/Moderate Assistance-helper does LESS THAN HALF the effort. [place] lifts, holds or supports trunk or limbs, but provides less than half the effort. 2-Substantial/Maximal Assistance-helper does MORE THAN HALF the effort. [place] lifts or holds trunk or limbs and provides more than half the effort. 6-Lrxewtykh-biguhv does ALL the effort. Patient does none of the effort to complete the activity. Or, the assistance of 2 or more helpers is required for the patient to complete the activity. If activity was not attempted, code reason: 7-Patient Refused. 9-Not Applicable-not attempted and the patient did not perform the activity before the current illness, exacerbation or injury. 10-Not Attempted due to Environmental Limitations-(lack of equipment, weather restraints, etc.). 88-Not Attempted due to Medical Conditions or Safety Concerns. Oral Hygiene (QC): 6 Bathing Location: L Arm, R Arm, L Upper Leg, R Upper Leg, L Lower Leg (including foot), R Lower Leg (including foot), Chest, Abdomen, Buttocks, Perineal Area Shower/Bathe Self (QC): 6 Upper Body Dressing (QC): 6 Lower Body Dressing (QC): 6 On/Off Footwear: 6 Toileting Hygiene (QC): 6 Toilet Transfer (QC): 6 OT First Officer And Flight Instructor Goals Halfway Goals Time Frame: Jul 20, 2020 Eating (QC): 6 Oral Hygiene (QC): 6 Toileting Hygiene (QC): 6 Shower/Bathe Self (QC): 6 Upper Body Dressing (QC): 6 Lower Body Dressing (QC): 6 On/Off Footwear (QC): 6 Additional Goals: 1-Demonstrate ADL Tasks, 2-Verbalize Understanding, 3- ImproveStrength/Fern 1=Demonstrate adherence to instructed precautions during ADL tasks. 2=Patient will verbalize/demonstrate understanding of assistive dev ices/modifications for ADL. 3=Patient will improve strength/tolerance for activity to enable patient to perform ADL's. OT Education/Plan Problem List/Assessment Assessment: Decreased UE Strength, Impaired Coordination, Impaired Funct Balance, Impaired I ADL's, Impaired Self-Care Skills Discharge Recommendations Plan/Recommendations: Continue POC Treatment Plan/Plan of Care Patient would benefit from OT for education, treatment and training to promote independence in ADL's, mobility, safety and/or upper extremity function for ADL's. Plan of Care: ADL Retraining, Concurrent Therapy, Functional Mobility, Group Exercise/Act as Ind, UE Funct Exercise/Act Treatment Duration: Jul 20, 2020 Frequency: At least 5 of 7 days/Wk (IRF) Estimated Hrs Per Day: 1.5 hours per day Agreement: Yes Rehab Potential: Good Time/GCodes Start Time: 07:30 Stop Time: 09:00 Total Time Billed (hr/min): 90 Billed Treatment Time 1 visit- ADL 4 (65mins), FA 2 (25 mins) LEYDA HOBSON Jul 23, 2020 09:00
[2020-07-23 09:12] VITALS: BP 113/79
[2020-07-23] MEDS: lisINopril 20 MG (PRINIVIL) TABLET PO SCH ×2 (09:13→21:07)
[2020-07-23] MEDS: CLOPIDOGREL 75 MG (PLAVIX) TABLET PO SCH (09:13)
[2020-07-23] MEDS: amLODIPine 5 MG (NORVASC) TAB PO SCH (09:13)
[2020-07-23] MEDS: meTOprolol SUCCINATE 100 MG (TOPROL XL) TAB PO SCH (09:13)
[2020-07-23] MEDS: ASPIRIN 81 MG CHEW (CHILDREN'S ASA) PO SCH (09:13)
--- NOTE | 2020-07-23 10:59 | Physical Therapy Daily Note ---
PT Daily Note-Current Subjective Pt siting in recliner upon arrival. Pt agrees to PT. Pain Numeric Pain Scale: 3 Location: Right Location Body Site: Elbow Pain Description: Ache Mental Status Patient Orientation: Person, Place, Time, Situation Attachments: Other-See Comments (Wound Vac.) Transfers SCALE: Activities may be completed with or without assistive devices. 6-Nhlrmxdfxq-ujeqzvx completes the activity by him/herself with no assistance from a helper. 5-Set-up or Clean-up Assistance-helper sets up or cleans up; patient completes activity. [place] assists only prior to or following the activity. 4-Supervision or Touching Assistance-helper provides verbal cues and/or touching/steadying and/or contact guard assistance as patient completes activity. Assistance may be provided throughout the activity or intermittently. 3-Partial/Moderate Assistance-helper does LESS THAN HALF the effort. [place] lifts, holds or supports trunk or limbs, but provides less than half the effort. 2-Substantial/Maximal Assistance-helper does MORE THAN HALF the effort. [place] lifts or holds trunk or limbs and provides more than half the effort. 5-Ekiwojjrs-dakvon does ALL the effort. Patient does none of the effort to complete the activity. Or, the assistance of 2 or more helpers is required for the patient to complete the activity. If activity was not attempted, code reason: 7-Patient Refused. 9-Not Applicable-not attempted and the patient did not perform the activity before the current illness, exacerbation or injury. 10-Not Attempted due to Environmental Limitations-(lack of equipment, weather restraints, etc.). 88-Not Attempted due to Medical Conditions or Safety Concerns. Sit to Stand (QC): 6 Weight Bearing Right Lower Extremity: Right Weight Bearing/Tolerated Left Lower Extremity: Left Weight Bearing/Tolerated Gait Training Does the Patient Walk?: Yes Distance: 150', 450' Walk 10 feet (QC): 6 Walk 50 ft with 2 Turns(QC): 6 Walk 150 ft (QC): 6 Gait Persons Needed: 1 Gait Assistive Device: Cane Large Base Quad Wheelchair Training Does the Pt Use a Wheelchair?: No Exercises Seated Therapy Exercises: Ankle pumps, Sit to stand, Long arc quads, Hip flexion, Kicking activity, Hip abd/add Seated Reps: 15 NuStep Minutes: 20 NuStep Workload: 5 Treatments Pt transfers to standing. Pt uses restroom then amb. in hallway. Pt uses NuStep for 20m at WL 5 and completes Seated EX. Pt amb. in hallway and returns to rest in recliner with all needs met, call light in hand. Assessment Current Status: Good Progress Pt is a little teary when she reports she sill DC on Monday (07/28). Pt is a little nervous about wound care at home, WARDROBE SUPERVISOR reassures pt that she will be very capable after given instruction this weekend. PT Short Term Goals Short Term Goals Time Frame: Jul 11, 2020 Sit to lyin Lying to sitting on side of be: 4 Sit to stand: 5 Walk 150 feet: 4 4 steps: 4 PT Retirement Goals Retirement Goals PT Golf Ball Trimmer Goals Time Frame: Jul 22, 2020 Roll Left & Right (QC): 6 Sit to Lying (QC): 6 Lying-Sitting on Side/Bed(QC): 6 Sit to Stand (QC): 6 Chair/Zyj-qr-Dmpuc Xfer(QC): 6 Toilet Transfer (QC): 6 Car Transfer (QC): 6 Does the Patient Walk: Yes Walk 10 feet (QC): 6 Walk 50ft with 2 Turns (QC): 6 Walk 150 ft (QC): 6 Walking 10ft on Uneven Surface: 6 1 Step (curb) (QC): 6 4 Steps (QC): 6 12 Steps (QC): 4 Picking up an Object (QC): 4 Wheel 50 feet with 2 turns (QC: 9 Wheel 150 feet: 9 PT Plan Problem List Problem List: Activity Tolerance Treatment/Plan Treatment Plan: Continue Plan of Care Treatment Plan: Bed Mobility, Education, Functional Activity Fern, Functional Strength, Group Therapy, Gait, Safety, Therapeutic Exercise, Transfers Treatment Duration: Jul 22, 2020 Frequency: At least 5 of 7 days/Wk (IRF) Estimated Hrs Per Day: 1.5 hours per day Patient and/or Family Agrees t: Yes Safety Risks/Education Patient Education: Safety Issues Teaching Recipient: Patient Teaching Methods: Discussion Response to Teaching: Verbalize Understanding Time/GCodes Time In: 1000 Time Out: 1100 Total Billed Treatment Time: 60 Total Billed Treatment 1, GT (15m), FA (15m) & EX x2 (30m) PARTH TONEY WARDROBE SUPERVISOR Jul 23, 2020 10:59
--- NOTE | 2020-07-23 15:41 | Physical Therapy Daily Note ---
PT Daily Note-Current Subjective Pt sitting in restroom upon arrival. Pt agrees to PT. Pain Location: No Pain Reported Mental Status Patient Orientation: Person, Place, Time, Situation Attachments: Other-See Comments (Wound Vac.) Transfers SCALE: Activities may be completed with or without assistive devices. 1-Eujwuklfur-rdfebky completes the activity by him/herself with no assistance from a helper. 5-Set-up or Clean-up Assistance-helper sets up or cleans up; patient completes activity. [place] assists only prior to or following the activity. 4-Supervision or Touching Assistance-helper provides verbal cues and/or touching/steadying and/or contact guard assistance as patient completes activity. Assistance may be provided throughout the activity or intermittently. 3-Partial/Moderate Assistance-helper does LESS THAN HALF the effort. [place] lifts, holds or supports trunk or limbs, but provides less than half the effort. 2-Substantial/Maximal Assistance-helper does MORE THAN HALF the effort. [place] lifts or holds trunk or limbs and provides more than half the effort. 6-Ouxxlslbj-uddhxh does ALL the effort. Patient does none of the effort to complete the activity. Or, the assistance of 2 or more helpers is required for the patient to complete the activity. If activity was not attempted, code reason: 7-Patient Refused. 9-Not Applicable-not attempted and the patient did not perform the activity before the current illness, exacerbation or injury. 10-Not Attempted due to Environmental Limitations-(lack of equipment, weather restraints, etc.). 88-Not Attempted due to Medical Conditions or Safety Concerns. Sit to Stand (QC): 6 Weight Bearing Right Lower Extremity: Right Weight Bearing/Tolerated Left Lower Extremity: Left Weight Bearing/Tolerated Gait Training Does the Patient Walk?: Yes Distance: 150' x2 Walk 10 feet (QC): 6 Walk 50 ft with 2 Turns(QC): 6 Walk 150 ft (QC): 6 Gait Persons Needed: 1 Gait Assistive Device: Cane Large Base Quad Wheelchair Training Does the Pt Use a Wheelchair?: No Stair Training Stair Training: Handrails/: 2 handrails #of Steps: 4 1 Step (curb) (QC): 6 4 Steps (QC): 6 Exercises Standing: Hip Abduction, Hamstring curls, Heel/toe raises, 3 way Ex=Flex, Abd, Ext, Marching, Mini squats Standing Reps: 15 Treatments After finishing in restroom, Pt transfers to standing and amb. in hallway. Pt amb. 1 set of stairs then completes Standing EX at //bars. Pt returns to room at end of tx to rest in recliner with all needs met, call light in hand. Assessment Current Status: Good Progress Pt continues to gain independence and safety with her mobility. PT Short Term Goals Short Term Goals Time Frame: Jul 11, 2020 Sit to lyin Lying to sitting on side of be: 4 Sit to stand: 5 Walk 150 feet: 4 4 steps: 4 PT Community Health Coordinator Goals [facility] Goals PT Community Health Coordinator Goals Time Frame: Jul 22, 2020 Roll Left & Right (QC): 6 Sit to Lying (QC): 6 Lying-Sitting on Side/Bed(QC): 6 Sit to Stand (QC): 6 Chair/Sij-wn-Uyghk Xfer(QC): 6 Toilet Transfer (QC): 6 Car Transfer (QC): 6 Does the Patient Walk: Yes Walk 10 feet (QC): 6 Walk 50ft with 2 Turns (QC): 6 Walk 150 ft (QC): 6 Walking 10ft on Uneven Surface: 6 1 Step (curb) (QC): 6 4 Steps (QC): 6 12 Steps (QC): 4 Picking up an Object (QC): 4 Wheel 50 feet with 2 turns (QC: 9 Wheel 150 feet: 9 PT Plan Problem List Problem List: Activity Tolerance Treatment/Plan Treatment Plan: Continue Plan of Care Treatment Plan: Bed Mobility, Education, Functional Activity Fern, Functional Strength, Group Therapy, Gait, Safety, Therapeutic Exercise, Transfers Treatment Duration: Jul 22, 2020 Frequency: At least 5 of 7 days/Wk (IRF) Estimated Hrs Per Day: 1.5 hours per day Patient and/or Family Agrees t: Yes Safety Risks/Education Patient Education: Safety Issues Teaching Recipient: Patient Teaching Methods: Discussion Response to Teaching: Verbalize Understanding Time/GCodes Time In: 1400 Time Out: 1430 Total Billed Treatment Time: 30 Total Billed Treatment 1, GT (15m) & EX (15m) PARTH TONEY PHONE SPECIALIST Jul 23, 2020 15:41
[2020-07-23] MEDS: ENOXAPARIN 40 MG/0.4 ML (LOVENOX) SYR SC SCH (18:19)
[2020-07-23 18:35] VITALS: BP 113/71
[2020-07-24] MEDS: HYDROcodone/APAP 5 MG/325 MG (LORTAB) TAB PO PRN ×3 (00:02→16:19)
[2020-07-24 05:27] VITALS: BP 126/77
--- NOTE | 2020-07-24 07:52 | Occupational Ther Daily Note ---
OT Current Status-Daily Note Subjective Pt alert, sitting in recliner. Agreed to OT. No c/o of pain reported. Mental Status/Objective Patient Orientation: Person, Place, Time, Situation ADL-Treatment Sit to stand from recliner with quad cane, independently. Ambulated to bathroom using quad cane, supervision (assist to manipulate wound vac on IV pole). Transferred to toilet and completed toilet hygiene using quad cane, i ndependently. Pt ambulated to shower bench for showering. Pt doffed hospital gown and socks independently. OT covered wound. Pt completes bathing by self using shower bench, grab bars, and hand held shower. Takes time to complete all steps of showering. Pt able to take coverings off of wound, independently. Pt dons shirt independently after reaching for it from the IV pole. Pt completed lower body dressing independently. Donned socks, independently. After dressing, pt ambulates to sink and sits at chair, completes oral hygiene independently. After therapy, pt sitting at sink , call light in reach. Nursing notified of position, all needs met. Therapy Code Descriptions/Definitions Functional Mower Measure: 0=Not Assessed/NA 4=Minimal Assistance 1=Total Assistance 5=Supervision or Setup 2=Maximal Assistance 6=Modified Mower 3=Moderate Assistance 7=Complete IndependenceSCALE: Activities may be completed with or without assistive devices. 6-Lkefmxmsfj-uopzjqn completes the activity by him/herself with no assistance from a helper. 5-Set-up or Clean-up Assistance-helper sets up or cleans up; patient completes activity. [place] assists only prior to or following the activity. 4-Supervision or Touching Assistance-helper provides verbal cues and/or touching/steadying and/or contact guard assistance as patient completes activity. Assistance may be provided throughout the activity or intermittently. 3-Partial/Moderate Assistance-helper does LESS THAN HALF the effort. [place] lifts, holds or supports trunk or limbs, but provides less than half the effort. 2-Substantial/Maximal Assistance-helper does MORE THAN HALF the effort. [place] lifts or holds trunk or limbs and provides more than half the effort. 0-Nawscgkrg-zisnhr does ALL the effort. Patient does none of the effort to c omplete the activity. Or, the assistance of 2 or more helpers is required for the patient to complete the activity. If activity was not attempted, code reason: 7-Patient Refused. 9-Not Applicable-not attempted and the patient did not perform the activity before the current illness, exacerbation or injury. 10-Not Attempted due to Environmental Limitations-(lack of equipment, weather restraints, etc.). 88-Not Attempted due to Medical Conditions or Safety Concerns. Shower/Bathe Self (QC): 6 Upper Body Dressing (QC): 6 Lower Body Dressing (QC): 6 On/Off Footwear: 6 Toileting Hygiene (QC): 6 Toilet Transfer (QC): 6 OT Seafood Packer Goals Seafood Packer Goals Time Frame: Jul 20, 2020 Eating (QC): 6 Oral Hygiene (QC): 6 Toileting Hygiene (QC): 6 Shower/Bathe Self (QC): 6 Upper Body Dressing (QC): 6 Lower Body Dressing (QC): 6 On/Off Footwear (QC): 6 Additional Goals: 1-Demonstrate ADL Tasks, 2-Verbalize Understanding, 3-Im proveStrength/Fern 1=Demonstrate adherence to instructed precautions during ADL tasks. 2=Patient will verbalize/demonstrate understanding of assistive devices/modifications for ADL. 3=Patient will improve strength/tolerance for activity to enable patient to perform ADL's. OT Education/Plan Problem List/Assessment Assessment: Decreased UE Strength, Impaired Coordination, Impaired I ADL's, Impaired Self-Care Skills Discharge Recommendations Plan/Recommendations: Continue POC Treatment Plan/Plan of Care Patient would benefit from OT for education, treatment and training to promote independence in ADL's, mobility, safety and/or upper extremity function for ADL' s. Plan of Care: ADL Retraining, Concurrent Therapy, Functional Mobility, Group Exercise/Act as Ind, UE Funct Exercise/Act Treatment Duration: Jul 20, 2020 Frequency: At least 5 of 7 days/Wk (IRF) Estimated Hrs Per Day: 1.5 hours per day Agreement: Yes Rehab Potential: Good Time/GCodes Start Time: 07:30 Stop Time: 08:30 Total Time Billed (hr/min): 60 Billed Treatment Time 1 visit-ADL 4 (60 mins) LEYDA HOBSON Jul 24, 2020 07:52
[2020-07-24] MEDS: CLOPIDOGREL 75 MG (PLAVIX) TABLET PO SCH (09:13)
[2020-07-24] MEDS: ASPIRIN 81 MG CHEW (CHILDREN'S ASA) PO SCH (09:13)
--- NOTE | 2020-07-24 09:50 | Physical Therapy Daily Note ---
PT Daily Note-Current Subjective Pt presents up in restroom upon arrival to room, agreeable to work with therapy. Pt with no reports of pain at this time. Appearance Following session, pt up in restroom, with instruction to use call light when done. Pt voices understanding. Mental Status Patient Orientation: Person, Place, Situation Attachments: Other-See Comments (woundvac) Transfers SCALE: Activities may be completed with or without assistive devices. 5-Dfuzifyopa-iqqvhfl completes the activity by him/herself with no assistance from a helper. 5-Set-up or Clean-up Assistance-helper sets up or cleans up; patient completes activity. [place] assists only prior to or following the activity. 4-Supervision or Touching Assistance-helper provides verbal cues and/or touching/steadying and/or contact guard assistance as patient completes activity. Assistance may be provided throughout the activity or intermittently. 3-Partial/Moderate Assistance-helper does LESS THAN HALF the effort. [place] lifts, holds or supports trunk or limbs, but provides less than half the effort. 2-Substantial/Maximal Assistance-helper does MORE THAN HALF the effort. [place] lifts or holds trunk or limbs and provides more than half the effort. 2-Hqqinrqlq-hisaol does ALL the effort. Patient does none of the effort to complete the activity. Or, the assistance of 2 or more helpers is required for the patient to complete the activity. If activity was not attempted, code reason: 7-Patient Refused. 9-Not Applicable-not attempted and the patient did not perform the activity before the current illness, exacerbation or injury. 10-Not Attempted due to Environmental Limitations-(lack of equipment, weather restraints, etc.). 88-Not Attempted due to Medical Conditions or Safety Concerns. Sit to Stand (QC): 6 Toilet Transfer (QC): 6 Weight Bearing Right Lower Extremity: Right Weight Bearing/Tolerated Left Lower Extremity: Left Weight Bearing/Tolerated Gait Training Distance: 450' 150' Gait Assistive Device: Cane Large Base Quad Stair Training Stair Training: Handrails/: 1 handrail, uses cane 4 Steps (QC): 5 Exercises Standing: Hip Abduction, Heel/toe raises, 3 way Ex=Flex, Abd, Ext, Marching, Mini squats NuStep Minutes: 20 NuStep Workload: 5 Assessment Current Status: Excellent Progress Pt progressing very well with therapy. PT Short Term Goals Short Term Goals Time Frame: Jul 11, 2020 Sit to lyin Lying to sitting on side of be: 4 Sit to stand: 5 Walk 150 feet: 4 4 steps: 4 PT Septic Tank Service Technician Goals Septic Tank Service Technician Goals PT Septic Tank Service Technician Goals Time Frame: Jul 22, 2020 Roll Left & Right (QC): 6 Sit to Lying (QC): 6 Lying-Sitting on Side/Bed(QC): 6 Sit to Stand (QC): 6 Chair/Juy-xg-Jlric Xfer(QC): 6 Toilet Transfer (QC): 6 Car Transfer (QC): 6 Does the Patient Walk: Yes Walk 10 feet (QC): 6 Walk 50ft with 2 Turns (QC): 6 Walk 150 ft (QC): 6 Walking 10ft on Uneven Surface: 6 1 Step (curb) (QC): 6 4 Steps (QC): 6 12 Steps (QC): 4 Picking up an Object (QC): 4 Wheel 50 feet with 2 turns (QC: 9 Wheel 150 feet: 9 PT Plan Problem List Problem List: Activity Tolerance, Functional Strength, Safety, Balance, Gait, Transfer, Bed Mobility, ROM Treatment/Plan Treatment Plan: Continue Plan of Care Treatment Plan: Bed Mobility, Education, Functional Activity Fern, Functional Strength, Group Therapy, Gait, Safety, Therapeutic Exercise, Transfers Treatment Duration: Jul 22, 2020 Frequency: At least 5 of 7 days/Wk (IRF) Estimated Hrs Per Day: 1.5 hours per day Patient and/or Family Agrees t: Yes Time/GCodes Time In: 845 Time Out: 945 Total Billed Treatment Time: 60 Total Billed Treatment 1 visit EX (35') FA (8') GT (17') GEORGE JACKSON PT Jul 24, 2020 09:50
--- NOTE | 2020-07-24 10:02 | PM&R Progress Note ---
Subjective HPI/CC On Admission Date Seen by Provider: Jul 24, 2020 Time Seen by Provider: 08:00 Subjective/Events-last exam 07/24/20: Wound vac is discontinued today Wound care will be managed Pain is well controlled 07/23/20: Pt doing pretty well today Leaving wound vac off as of Monday Very anxious about DC, she will be taught how to change her dressing No other new issues 07/22/20: Wound vac to change today NO major issues 07/21/20: Bowels are moving everyday Pain is well controlled Wound vac is helping the wound Doing very well 07/20/20: Pt doing very well Hgb 9.2 Albumin good at 3.0 Wound vac changed every Monday, Monday, and Monday07/19/20: Patient doing well No pain reported NO falls Eating well 07/18/20: Patient denies new issues Pain controlled Sutures removed except 1 07/17/20: Wound vac changed MWF BM++ Cardiology consulted for elevated BP 07/16/20: Wound vac changed one hour after pain pill given which is helping a great deal Pain is overall doing well Bowels are moving today Wound is much improved on her abdomen Overall progressing nicely 07/15/20: Patient has some loose stools which we will continue Changing wound VAC every Monday and Monday Feels like she is making some progress No falls reported 07/14/20: Bowels moved yesterday No major issues Wound vac changed every Monday, Monday and Monday Discharge at the end of the week hopefully 07/13/20: Hgb stable at 8.2, potassium 3.5 Redness around sutures will inquire with Dr. Cardona about removing them No picc line will be needed since we will shift to oral pain medication an hour before the wound vac change Lisinopril will be added for elevated BP 07/12/20: Patient feels good Regular diet tolerated No pain is reported except when wound vac changed Labs due tomorrow 07/11/20: Patient doing well Regular diet tolerated well Wound vac MWF Abx will be changed to PO since IV went bad and can't replace due to poor access 07/10/20: Changed wound vac and that will be done Monday, Monday and Monday Good healing Bowels are loose but that is a chronic issue Participating in therapy 07/09/20: Pt reports abdominal pain where the wound vac is Bowels are still loose and watery Overall feels like she is doing pretty good otherwise Chronic debility is improving 07/08/20: Needs pain medication before wound vac change Overall feels pretty good Eating and drinking well Overall progressing nicely 07/07/20: WBC 13.4 down from 16 Watery diarrhea Buttpaste ordered for ramos-area Lortab taken this morning Checked meds and labs Reviewed therapy notes Conferred with horse stud manager of Systems General: Fatigue, Malaise Neurological: Weakness Objective Exam Vital Signs Vital Signs Date Time Temp Pulse Resp B/P (MAP) Pulse Ox O2 Delivery O2 Flow Rate FiO2 07/24/20 20:30 Room Air 07/24/20 16:30 35.7 86 16 136/76 (96) 96 Capillary Refill : Less Than 3 Seconds General Appearance: No Apparent Distress, Chronically ill HEENT: PERRL/EOMI, Normal ENT Inspection, Pharynx Normal Neck: Full Range of Motion, Normal Inspection, Non Tender, Supple Respiratory: Chest Non Tender, Lungs Clear, Normal Breath Sounds, No Accessory Muscle Use, No Respiratory Distress, Decreased Breath Sounds Cardiovascular: Regular Rate, Rhythm, No Gallop, No JVD, No Murmur, Normal Peripheral Pulses Gastrointestinal: Normal Bowel Sounds, No Organomegaly, No Pulsatile Mass, Soft, Tenderness, Other (wound vac in place) Back: Normal Inspection, No CVA Tenderness, No Vertebral Tenderness Extremity: Normal Capillary Refill, Normal Inspection, Normal Range of Motion, Non Tender, No Calf Tenderness, Pedal Edema Neurologic/Psychiatric: Alert, Oriented x3, No Motor/Sensory Deficits, Normal Mood/Affect, 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 FIM Transfers Therapy Code Descriptions/Definitions Functional [place] Measure: 0=Not Assessed/NA 4=Minimal Assistance 1=Total Assistance 5=Supervision or Setup 2=Maximal Assistance 6=Modified [place] 3=Moderate Assistance 7=Complete IndependenceSCALE: Activities may be completed with or without assistive devices. 5-Pznebaakyd-uqwijum completes the activity by him/herself with no assistance from a helper. 5-Set-up or Clean-up Assistance-helper sets up or cleans up; patient completes activity. [place] assists only prior to or following the activity. 4-Supervision or Touching Assistance-helper provides verbal cues and/or touching/steadying and/or contact guard assistance as patient completes activity. Assistance may be provided throughout the activity or intermittently. 3-Partial/Moderate Assistance-helper does LESS THAN HALF the effort. [place] lif ts, holds or supports trunk or limbs, but provides less than half the effort. 2-Substantial/Maximal Assistance-helper does MORE THAN HALF the effort. [place] lifts or holds trunk or limbs and provides more than half the effort. 3-Xdokvhvpt-sqpaml does ALL the effort. Patient does none of the effort to complete the activity. Or, the assistance of 2 or more helpers is required for the patient to complete the activity. If activity was not attempted, code reason: 7-Patient Refused. 9-Not Applicable-not attempted and the patient did not perform the activity before the current illness, exacerbation or injury. 10-Not Attempted due to Environmental Limitations-(lack of equipment, weather restraints, etc.). 88-Not Attempted due to Medical Conditions or Safety Concerns. Roll Left to Right (QC): 6 Sit to Lying (QC): 6 Sit to Stand (QC): 6 Chair/Awa-im-Brtxr Xfer(QC): 6 Car Transfer (QC): 6 Gait Training Does the Patient Walk?: Yes Distance: 450' 150' Walk 10 feet (QC): 6 Walk 50 ft with 2 Turns(QC): 6 Walk 150 ft (QC): 6 Walking 10ft/uneven surface-QC: 0 (will assess at follow up visit) Gait Persons Needed: 1 Gait Assistive Device: Cane Large Base Quad Wheelchair Training Does the Pt Use a Wheelchair?: No Wheel 50 ft with 2 turns (QC): 9 Wheel 150 ft (QC): 9 Stair Training Stair Training: Handrails/: 1 handrail, uses cane #of Steps: 4 1 Step (curb) (QC): 6 4 Steps (QC): 5 12 Steps (QC): 5 Stairs: Pattern: Reciprocal Balance Picking up an Object (QC): 5 ADL-Treatment Eating (QC): 6 (Pt reports having no difficulty eating lunch) Oral Hygiene (QC): 6 Bathing Location: L Arm, R Arm, L Upper Leg, R Upper Leg, L Lower Leg (including foot), R Lower Leg (including foot), Chest, Abdomen, Buttocks, Perineal Area Shower/Bathe Self (QC): 6 Upper Body Dressing (QC): 6 Lower Body Dressing (QC): 6 On/Off Footwear (QC): 6 Toileting Hygiene (QC): 6 Toilet Transfer (QC): 6 Assessment/Plan Assessment and Plan Assess & Plan/Chief Complaint Assessment: Debility s/p critical illness and VDRF in March 2020 Iliostomy s/p takedown with wound dehiscence and s/p revision with wound vac in place 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 Anasarca hx Hirsutism Poor albumin level improved h/o Ascites s/p paracentesis just bloody serous NGTD Anemia s/p transfusions 2 units 03/17/20 Situational depression Plan: IRF protocol Continue treatment plan Appreciate Surgery management 07/07/20: Monitor white count now 13 down from 16 Watery diarrhea monitoring Butt paste as needed Pain medication as needed 07/08/20: Continue changing wound vac Pain medication before wound vac change Continue strengthening from physical therapy Encourage good nutrition 07/09/20: Continue wound vac changes Bowels still loose Supportive care 07/10/20: Maintain wound vac change Monday, Monday, and Monday Good healing Bowels are still a little bit loose Continue aggressive treatment 07/11/20: Surgery to decide about abx since IV went bad Increase PO nutrition 07/12/20: Monitor nutrition Monitor labs Wound vac changed MWF 07/13/20: Inquire with Dr. 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 to pill form of pain medication before wound vac Restart Lisinopril as she takes at home 07/14/20: Maintain bowel regimen Wound vac change Monday, Monday, and Monday Pain control Remove IV today 07/15/20: Monitor pain Wound vac changes Reviewed team conference plans 07/16/20: Pain management Fall risk Wound vac management 07/17/20: Wound vac changes Pain control 07/18/20: Pain control Increase therapy Fall risk prevention 07/19/20: Monitor pain Increase po nutrition 07/20/20: Labs stable with hemoglobin 9.2 Encourage good nutrition Pain control with wound vac change 07/21/20: Continue bowel regimen Wound vac until wound healed 8/26/20: Change wound vac Monitor pain Continue therapies 07/23/20: Discontinue wound vac tomorrow Anxious about discharge Monitor pain 07/24/20: Discontinuing wound vac Wound care will monitor the wound and teach her how to take care of it at home (1) Debility (2) Evisceration of bowel Status: Acute (3) Surgical wound dehiscence Status: Acute (4) Hypertensive emergency Status: Acute (5) Hypertension Status: Chronic (6) Hyperlipidemia Status: Chronic (7) Coronary artery disease Status: Chronic (8) Abdominal pain Status: Acute (9) Anasarca (10) Anemia (11) Hirsutism (12) Leukocytosis SESAR BEEBE DO Jul 24, 2020 10:02
[2020-07-24] MEDS: lisINopril 20 MG (PRINIVIL) TABLET PO SCH ×2 (10:27→20:55)
[2020-07-24] MEDS: amLODIPine 5 MG (NORVASC) TAB PO SCH (10:27)
[2020-07-24] MEDS: meTOprolol SUCCINATE 100 MG (TOPROL XL) TAB PO SCH (10:27)
--- NOTE | 2020-07-24 14:20 | Therapy Group Daily Note ---
Therapy Daily Group Note Patient Education Topic Home Safety, Exercises Exercises LE Seated Exercise, UE Exercise Session Ratio (pt:therapist): 4:1 Goal of Session: Home Safety Strategies, UE/LE Strengthing Goal Met for this Session: Yes Pt Benefit of Group: Contributions to Others, F/U Use of Strategies @Home, Increased Functional Safety, Increased Functional Strength, Improved Cognition, Recognition of Peers, Socialization Other/Notes Pt ambulated using quadcane to OT/PT group in [facility]. Group consisted of introductions (name, place living, what activity on Monday), socialization, UE/LE seated exercises (peer led), education on home safety and Home Safety Bingo. Pt able to introduce self appropriately then actively listen to peers' introductions. Pt able to complete UE/LE seated exercises appropriately. Pt was able to complete fine/gross motor UE movements without difficulty and visually scan to find matching pictures. Pt demonstrated un derstanding of educational topic by giving personal experiences and strategies. Pt was able to communicate with peers. After session, pt lying in bed with call light/phone in reach. All needs met in room. Start Time: 12:50 Stop Time: 13:50 Total Billed Treatment Time: 60 Total Billed Treatment 1,MIN JOCELEYDA ESCAMILLA Jul 24, 2020 14:20
[2020-07-24 16:30] VITALS: BP 136/76
[2020-07-24] MEDS: ENOXAPARIN 40 MG/0.4 ML (LOVENOX) SYR SC SCH (18:39)
[2020-07-25] MEDS: HYDROcodone/APAP 5 MG/325 MG (LORTAB) TAB PO PRN ×3 (00:19→18:09)
[2020-07-25 05:56] VITALS: BP 119/74
--- NOTE | 2020-07-25 07:37 | PM&R Progress Note ---
Subjective HPI/CC On Admission Date Seen by Provider: Jul 25, 2020 Time Seen by Provider: 11:00 Subjective/Events-last exam 07/25/20: Monitor pain when wound dressing change Improved dietary intake 07/24/20: Wound vac is discontinued today Wound care will be managed Pain is well controlled 07/23/20: Pt doing pretty well today Leaving wound vac off as of Monday Very anxious about DC, she will be taught how to change her dressing No other new issues 07/22/20: Wound vac to change today NO major issues 07/21/20: Bowels are moving everyday Pain is well controlled Wound vac is helping the wound Doing very well 07/20/20: Pt doing very well Hgb 9.2 Albumin good at 3.0 Wound vac changed every Monday, Monday, and Monday07/19/20: Patient doing well No pain reported NO falls Eating well 07/18/20: Patient denies new issues Pain controlled Sutures removed except 1 07/17/20: Wound vac changed MWF BM++ Cardiology consulted for elevated BP 07/16/20: Wound vac changed one hour after pain pill given which is helping a great deal Pain is overall doing well Bowels are moving today Wound is much improved on her abdomen Overall progressing nicely 07/15/20: Patient has some loose stools which we will continue Changing wound VAC every Monday and Monday Feels like she is making some progress No falls reported 07/14/20: Bowels moved yesterday No major issues Wound vac changed every Monday, Monday and Monday Discharge at the end of the week hopefully 07/13/20: Hgb stable at 8.2, potassium 3.5 Redness around sutures will inquire with Dr. Cardona about removing them No picc line will be needed since we will shift to oral pain medication an hour before the wound vac change Lisinopril will be added for elevated BP 07/12/20: Patient feels good Regular diet tolerated No pain is reported except when wound vac changed Labs due tomorrow 07/11/20: Patient doing well Regular diet tolerated well Wound vac MWF Abx will be changed to PO since IV went bad and can't replace due to poor access 07/10/20: Changed wound vac and that will be done Monday, Monday and Monday Good healing Bowels are loose but that is a chronic issue Participating in therapy 07/09/20: Pt reports abdominal pain where the wound vac is Bowels are still loose and watery Overall feels like she is doing pretty good otherwise Chronic debility is improving 07/08/20: Needs pain medication before wound vac change Overall feels pretty good Eating and drinking well Overall progressing nicely 07/07/20: WBC 13.4 down from 16 Watery diarrhea Buttpaste ordered for ramos-area Lortab taken this morning Checked meds and labs Reviewed therapy notes Conferred with wind farm designer of Systems Gastrointestinal: Abdominal Pain Objective Exam Vital Signs Vital Signs Date Time Temp Pulse Resp B/P (MAP) Pulse Ox O2 Delivery O2 Flow Rate FiO2 07/25/20 09:00 Room Air 07/25/20 08:24 84 115/72 (86) 07/25/20 05:56 36.4 18 99 Capillary Refill : Less Than 3 Seconds General Appearance: No Apparent Distress, Chronically ill HEENT: PERRL/EOMI, Normal ENT Inspection, Pharynx Normal Neck: Full Range of Motion, Normal Inspection, Non Tender, Supple Respiratory: Chest Non Tender, Lungs Clear, Normal Breath Sounds, No Accessory Muscle Use, No Respiratory Distress, Decreased Breath Sounds Cardiovascular: Regular Rate, Rhythm, No Gallop, No JVD, No Murmur, Normal Peripheral Pulses Gastrointestinal: Normal Bowel Sounds, No Organomegaly, No Pulsatile Mass, Soft, Tenderness, Other (wound vac in place) Back: Normal Inspection, No CVA Tenderness, No Vertebral Tenderness Extremity: Normal Capillary Refill, Normal Inspection, Normal Range of Motion, Non Tender, No Calf Tenderness, Pedal Edema Neurologic/Psychiatric: Alert, Oriented x3, No Motor/Sensory Deficits, Normal Mood/Affect, court magistrate II-XII Norm as Tested, Motor Weakness (generalized) Skin: Normal Color, Warm/Dry Lymphatic: No Adenopathy Results/Procedures Lab Patient resulted labs reviewed. FIM Transfers Therapy Code Descriptions/Definitions Functional [place] Measure: 0=Not Assessed/NA 4=Minimal Assistance 1=Total Assistance 5=Supervision or Setup 2=Maximal Assistance 6=Modified [place] 3=Moderate Assistance 7=Complete IndependenceSCALE: Activities may be completed with or without assistive devices. 7-Rkhniojayk-fqvwfky completes the activity by him/herself with no assistance from a helper. 5-Set-up or Clean-up Assistance-helper sets up or cleans up; patient completes activity. [place] assists only prior to or following the activity. 4-Supervision or Touching Assistance-helper provides verbal cues and/or touching/steadying and/or contact guard assistance as patient completes activity. Assistance may be provided throughout the activity or intermittently. 3-Partial/Moderate Assistance-helper does LESS THAN HALF the effort. [place] lifts, holds or supports trunk or limbs, but provides less than half the effort. 2-Substantial/Maximal Assistance-helper does MORE THAN HALF the effort. [place] lifts or holds trunk or limbs and provides more than half the effort. 5-Cbacfcjil-fcfvby does ALL the effort. Patient does none of the effort to complete the activity. Or, the assistance of 2 or more helpers is required for the patient to complete the activity. If activity was not attempted, code reason: 7-Patient Refused. 9-Not Applicable-not attempted and the patient did not perform the activity before the current illness, exacerbation or injury. 10-Not Attempted due to Environmental Limitations-(lack of equipment, weather restraints, etc.). 88-Not Attempted due to Medical Conditions or Safety Concerns. Roll Left to Right (QC): 6 Sit to Lying (QC): 6 Sit to Stand (QC): 6 Chair/Pre-sj-Ikbps Xfer(QC): 6 Car Transfer (QC): 6 Gait Training Does the Patient Walk?: Yes Distance: 450' 150' Walk 10 feet (QC): 6 Walk 50 ft with 2 Turns(QC): 6 Walk 150 ft (QC): 6 Walking 10ft/uneven surface-QC: 0 (will assess at follow up visit) Gait Persons Needed: 1 Gait Assistive Device: Cane Large Base Quad Wheelchair Training Does the Pt Use a Wheelchair?: No Wheel 50 ft with 2 turns (QC): 9 Wheel 150 ft (QC): 9 Stair Training Stair Training: Handrails/: 1 handrail, uses cane #of Steps: 4 1 Step (curb) (QC): 6 4 Steps (QC): 5 12 Steps (QC): 5 Stairs: Pattern: Reciprocal Balance Picking up an Object (QC): 5 ADL-Treatment Eating (QC): 6 (Pt reports having no difficulty eating lunch) Oral Hygiene (QC): 6 Bathing Location: L Arm, R Arm, L Upper Leg, R Upper Leg, L Lower Leg (including foot), R Lower Leg (including foot), Chest, Abdomen, Buttocks, Perineal Area Shower/Bathe Self (QC): 6 Upper Body Dressing (QC): 6 Lower Body Dressing (QC): 6 On/Off Footwear (QC): 6 Toileting Hygiene (QC): 6 Toilet Transfer (QC): 6 Assessment/Plan Assessment and Plan Assess & Plan/Chief Complaint Assessment: Debility s/p critical illness and VDRF in March 2020 Iliostomy s/p takedown with wound dehiscence and s/p revision with wound vac in place 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 Anasarca hx Hirsutism Poor albumin level improved h/o Ascites s/p paracentesis just bloody serous NGTD Anemia s/p transfusions 2 units 03/17/20 Situational depression Plan: IRF protocol Continue treatment plan Appreciate Surgery management 07/07/20: Monitor white count now 13 down from 16 Watery diarrhea monitoring Butt paste as needed Pain medication as needed 07/08/20: Continue changing wound vac Pain medication before wound vac change Continue strengthening from physical therapy Encourage good nutrition 07/09/20: Continue wound vac changes Bowels still loose Supportive care 07/10/20: Maintain wound vac change Monday, Monday, and Monday Good healing Bowels are still a little bit loose Continue aggressive treatment 07/11/20: Surgery to decide about abx since IV went bad Increase PO nutrition 07/12/20: Monitor nutrition Monitor labs Wound vac changed MWF 07/13/20: Inquire with Dr. 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 to pill form of pain medication before wound vac Restart Lisinopril as she takes at home 07/14/20: Maintain bowel regimen Wound vac change Monday, Monday, and Monday Pain control Remove IV today 07/15/20: Monitor pain Wound vac changes Reviewed team conference plans 07/16/20: Pain management Fall risk Wound vac management 07/17/20: Wound vac changes Pain control 07/18/20: Pain control Increase therapy Fall risk prevention 07/19/20: Monitor pain Increase po nutrition 07/20/20: Labs stable with hemoglobin 9.2 Encourage good nutrition Pain control with wound vac change 07/21/20: Continue bowel regimen Wound vac until wound healed 07/22/20: Change wound vac Monitor pain Continue therapies 07/23/20: Discontinue wound vac tomorrow Anxious about discharge Monitor pain 07/24/20: Discontinuing wound vac Wound care will monitor the wound and teach her how to take care of it at home 07/25/20: Monitor dressing changes Pain control (1) Debility (2) Evisceration of bowel Status: Acute (3) Surgical wound dehiscence Status: Acute (4) Hypertensive emergency Status: Acute (5) Hypertension Status: Chronic (6) Hyperlipidemia Status: Chronic (7) Coronary artery disease Status: Chronic (8) Abdominal pain Status: Acute (9) Anasarca (10) Anemia (11) Hirsutism (12) Leukocytosis SESAR BEEBE DO Jul 25, 2020 07:37
[2020-07-25 08:24] VITALS: BP 115/72
[2020-07-25] MEDS: lisINopril 20 MG (PRINIVIL) TABLET PO SCH ×2 (08:26→20:55)
[2020-07-25] MEDS: amLODIPine 5 MG (NORVASC) TAB PO SCH (08:26)
[2020-07-25] MEDS: ASPIRIN 81 MG CHEW (CHILDREN'S ASA) PO SCH (08:26)
[2020-07-25] MEDS: meTOprolol SUCCINATE 100 MG (TOPROL XL) TAB PO SCH (08:26)
[2020-07-25] MEDS: CLOPIDOGREL 75 MG (PLAVIX) TABLET PO SCH (08:26)
--- NOTE | 2020-07-25 11:29 | Physical Therapy Daily Note ---
PT Daily Note-Current Subjective Pt agreeable, ready for PT. No pain per pt. Mental Status Patient Orientation: Person, Place, Situation Transfers SCALE: Activities may be completed with or without assistive devices. 9-Usegndznsi-aqihxmh completes the activity by him/herself with no assistance from a helper. 5-Set-up or Clean-up Assistance-helper sets up or cleans up; patient completes activity. [place] assists only prior to or following the activity. 4-Supervision or Touching Assistance-helper provides verbal cues and/or touch ing/steadying and/or contact guard assistance as patient completes activity. Assistance may be provided throughout the activity or intermittently. 3-Partial/Moderate Assistance-helper does LESS THAN HALF the effort. [place] lifts, holds or supports trunk or limbs, but provides less than half the effort. 2-Substantial/Maximal Assistance-helper does MORE THAN HALF the effort. [place] lifts or holds trunk or limbs and provides more than half the effort. 6-Nqrpbiwug-efgver does ALL the effort. Patient does none of the effort to complete the activity. Or, the assistance of 2 or more helpers is required for the patient to complete the activity. If activity was not attempted, code reason: 7-Patient Refused. 9-Not Applicable-not attempted and the patient did not perform the activity before the current illness, exacerbation or injury. 10-Not Attempted due to Environmental Limitations-(lack of equipment, weather restraints, etc.). 88-Not Attempted due to Medical Conditions or Safety Concerns. Weight Bearing Right Lower Extremity: Right Weight Bearing/Tolerated Left Lower Extremity: Left Weight Bearing/Tolerated Treatments Pt transfers and mobility mod (I). Pt amb with QC x 700(+) ft at steady speed, SBA. Pt performed standing 3 way hip, ham curl, heel raises x 20 each Pt back to recliner with call light and all needs met. Assessment Current Status: Excellent Progress Pt transfers and mobility mod (I). Pt appears safe with all mobility, no unsteadiness. Pt progressing appropriately toward goals. PT Short Term Goals Short Term Goals Time Frame: Jul 11, 2020 Sit to lyin Lying to sitting on side of be: 4 Sit to stand: 5 Walk 150 feet: 4 4 steps: 4 PT Shelter Goals Shelter Goals PT Shelter Goals Time Frame: Jul 22, 2020 Roll Left & Right (QC): 6 Sit to Lying (QC): 6 Lying-Sitting on Side/Bed(QC): 6 Sit to Stand (QC): 6 Chair/Gny-zd-Omiip Xfer(QC): 6 Toilet Transfer (QC): 6 Car Transfer (QC): 6 Does the Patient Walk: Yes Walk 10 feet (QC): 6 Walk 50ft with 2 Turns (QC): 6 Walk 150 ft (QC): 6 Walking 10ft on Uneven Surface: 6 1 Step (curb) (QC): 6 4 Steps (QC): 6 12 Steps (QC): 4 Picking up an Object (QC): 4 Wheel 50 feet with 2 turns (QC: 9 Wheel 150 feet: 9 PT Plan Treatment/Plan Treatment Plan: Continue Plan of Care Treatment Plan: Bed Mobility, Education, Functional Activity [place], Functional Strength, Group Therapy, Gait, Safety, Therapeutic Exercise, Transfers Treatment Duration: Jul 22, 2020 Frequency: At least 5 of 7 days/Wk (IRF) Estimated Hrs Per Day: 1.5 hours per day Patient and/or Family Agrees t: Yes Time/GCodes Time In: 805 Time Out: 820 Total Billed Treatment Time: 15 Total Billed Treatment 1, gait 10', ther ex 5' MOISÉS EMERSON CPTA Jul 25, 2020 11:29
[2020-07-25 16:30] VITALS: BP 116/68
[2020-07-25] MEDS: ENOXAPARIN 40 MG/0.4 ML (LOVENOX) SYR SC SCH (18:09)
[2020-07-25 20:50] VITALS: BP 116/77
[2020-07-26] MEDS: HYDROcodone/APAP 5 MG/325 MG (LORTAB) TAB PO PRN ×3 (00:23→23:52)
[2020-07-26 06:09] VITALS: BP 126/82
[2020-07-26 07:30] VITALS: BP 126/70
[2020-07-26] MEDS: lisINopril 20 MG (PRINIVIL) TABLET PO SCH ×2 (07:32→21:07)
[2020-07-26] MEDS: meTOprolol SUCCINATE 100 MG (TOPROL XL) TAB PO SCH (07:32)
[2020-07-26] MEDS: ASPIRIN 81 MG CHEW (CHILDREN'S ASA) PO SCH (07:32)
[2020-07-26] MEDS: CLOPIDOGREL 75 MG (PLAVIX) TABLET PO SCH (07:32)
[2020-07-26] MEDS: amLODIPine 5 MG (NORVASC) TAB PO SCH (07:32)
--- NOTE | 2020-07-26 09:59 | PM&R Progress Note ---
Subjective HPI/CC On Admission Date Seen by Provider: Jul 26, 2020 Time Seen by Provider: 11:00 Subjective/Events-last exam 07/26/20: Patient doing well Dressing change went well Hesitant about DC 07/25/20: Monitor pain when wound dressing change Improved dietary intake 07/24/20: Wound vac is discontinued today Wound care will be managed Pain is well controlled 07/23/20: Pt doing pretty well today Leaving wound vac off as of Monday Very anxious about DC, she will be taught how to change her dressing No other new issues 07/22/20: Wound vac to change today NO major issues 07/21/20: Bowels are moving everyday Pain is well controlled Wound vac is helping the wound Doing very well 07/20/20: Pt doing very well Hgb 9.2 Albumin good at 3.0 Wound vac changed every Monday, Monday, and Monday07/19/20: Patient doing well No pain reported NO falls Eating well 07/18/20: Patient denies new issues Pain controlled Sutures removed except 1 07/17/20: Wound vac changed MWF BM++ Cardiology consulted for elevated BP 07/16/20: Wound vac changed one hour after pain pill given which is helping a great deal Pain is overall doing well Bowels are moving today Wound is much improved on her abdomen Overall progressing nicely 07/15/20: Patient has some loose stools which we will continue Changing wound VAC every Monday and Monday Feels like she is making some progress No falls reported 07/14/20: Bowels moved yesterday No major issues Wound vac changed every Monday, Monday and Monday Discharge at the end of the week hopefully 07/13/20: Hgb stable at 8.2, potassium 3.5 Redness around sutures will inquire with Dr. Cardona about removing them No picc line will be needed since we will shift to oral pain medication an hour before the wound vac change Lisinopril will be added for elevated BP 07/12/20: Patient feels good Regular diet tolerated No pain is reported except when wound vac changed Labs due tomorrow 07/11/20: Patient doing well Regular diet tolerated well Wound vac MWF Abx will be changed to PO since IV went bad and can't replace due to poor access 07/10/20: Changed wound vac and that will be done Monday, Monday and Monday Good healing Bowels are loose but that is a chronic issue Participating in therapy 07/09/20: Pt reports abdominal pain where the wound vac is Bowels are still loose and watery Overall feels like she is doing pretty good otherwise Chronic debility is improving 07/08/20: Needs pain medication before wound vac change Overall feels pretty good Eating and drinking well Overall progressing nicely 07/07/20: WBC 13.4 down from 16 Watery diarrhea Buttpaste ordered for ramos-area Lortab taken this morning Checked meds and labs Reviewed therapy notes Conferred with circuit board assembler of Systems General: Fatigue, Malaise Gastrointestinal: Abdominal Pain Objective Exam Vital Signs Vital Signs Date Time Temp Pulse Resp B/P (MAP) Pulse Ox O2 Delivery O2 Flow Rate FiO2 07/26/20 17:15 35.4 78 16 112/67 (82) 100 Room Air Capillary Refill : Less Than 3 Seconds General Appearance: No Apparent Distress, Chronically ill HEENT: PERRL/EOMI, Normal ENT Inspection, Pharynx Normal Neck: Full Range of Motion, Normal Inspection, Non Tender, Supple Respiratory: Chest Non Tender, Lungs Clear, Normal Breath Sounds, No Accessory Muscle Use, No Respiratory Distress, Decreased Breath Sounds Cardiovascular: Regular Rate, Rhythm, No Gallop, No JVD, No Murmur, Normal Peripheral Pulses Gastrointestinal: Normal Bowel Sounds, No Organomegaly, No Pulsatile Mass, Soft, Tenderness, Other (wound vac in place) Back: Normal Inspection, No CVA Tenderness, No Vertebral Tenderness Extremity: Normal Capillary Refill, Normal Inspection, Normal Range of Motion, Non Tender, No Calf Tenderness, Pedal Edema Neurologic/Psychiatric: Alert, Oriented x3, No Motor/Sensory Deficits, Normal Mood/Affect, whizzer operator II-XII Norm as Tested, Motor Weakness (generalized) Skin: Normal Color, Warm/Dry Lymphatic: No Adenopathy Results/Procedures Lab Patient resulted labs reviewed. FIM Transfers Therapy Code Descriptions/Definitions Functional [place] Measure: 0=Not Assessed/NA 4=Minimal Assistance 1=Total Assistance 5=Supervision or Setup 2=Maximal Assistance 6=Modified [place] 3=Moderate Assistance 7=Complete IndependenceSCALE: Activities may be completed with or without assistive devices. 9-Unezsasqaj-tqszrke completes the activity by him/herself with no assistance from a helper. 5-Set-up or Clean-up Assistance-helper sets up or cleans up; patient completes activity. [place] assists only prior to or following the activity. 4-Supervision or Touching Assistance-helper provides verbal cues and/or touching/steadying and/or contact guard assistance as patient completes activity. Assistance may be provided throughout the activity or intermittently. 3-Partial/Moderate Assistance-helper does LESS THAN HALF the effort. [place] lifts, holds or supports trunk or limbs, but provides less than half the effort. 2-Substantial/Maximal Assistance-helper does MORE THAN HALF the effort. [place] lifts or holds trunk or limbs and provides more than half the effort. 4-Lzjhbwznp-auxxme does ALL the effort. Patient does none of the effort to complete the activity. Or, the assistance of 2 or more helpers is required for the patient to complete the activity. If activity was not attempted, code reason: 7-Patient Refused. 9-Not Applicable-not attempted and the patient did not perform the activity before the current illness, exacerbation or injury. 10-Not Attempted due to Environmental Limitations-(lack of equipment, weather restraints, etc.). 88-Not Attempted due to Medical Conditions or Safety Concerns. Roll Left to Right (QC): 6 Sit to Lying (QC): 6 Sit to Stand (QC): 6 Chair/Wsx-ax-Cfqcz Xfer(QC): 6 Car Transfer (QC): 6 Gait Training Does the Patient Walk?: Yes Distance: 450' 150' Walk 10 feet (QC): 6 Walk 50 ft with 2 Turns(QC): 6 Walk 150 ft (QC): 6 Walking 10ft/uneven surface-QC: 0 (will assess at follow up visit) Gait Persons Needed: 1 Gait Assistive Device: Cane Large Base Quad Wheelchair Training Does the Pt Use a Wheelchair?: No Wheel 50 ft with 2 turns (QC): 9 Wheel 150 ft (QC): 9 Stair Training Stair Training: Handrails/: 1 handrail, uses cane #of Steps: 4 1 Step (curb) (QC): 6 4 Steps (QC): 5 12 Steps (QC): 5 Stairs: Pattern: Reciprocal Balance Picking up an Object (QC): 5 ADL-Treatment Eating (QC): 6 (Pt reports having no difficulty eating lunch) Oral Hygiene (QC): 6 Bathing Location: L Arm, R Arm, L Upper Leg, R Upper Leg, L Lower Leg (including foot), R Lower Leg (including foot), Chest, Abdomen, Buttocks, Perineal Area Shower/Bathe Self (QC): 6 Upper Body Dressing (QC): 6 Lower Body Dressing (QC): 6 On/Off Footwear (QC): 6 Toileting Hygiene (QC): 6 Toilet Transfer (QC): 6 Assessment/Plan Assessment and Plan Assess & Plan/Chief Complaint Assessment: Debility s/p critical illness and VDRF in March 2020 Iliostomy s/p takedown with wound dehiscence and s/p revision with wound vac in place 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 Anasarca hx Hirsutism Poor albumin level improved h/o Ascites s/p paracentesis just bloody serous NGTD Anemia s/p transfusions 2 units 03/17/20 Situational depression Plan: IRF protocol Continue treatment plan Appreciate Surgery management 07/07/20: Monitor white count now 13 down from 16 Watery diarrhea monitoring Butt paste as needed Pain medication as needed 07/08/20: Continue changing wound vac Pain medication before wound vac change Continue strengthening from physical therapy Encourage good nutrition 07/09/20: Continue wound vac changes Bowels still loose Supportive care 07/10/20: Maintain wound vac change Monday, Monday, and Monday Good healing Bowels are still a little bit loose Continue aggressive treatment 07/11/20: Surgery to decide about abx since IV went bad Increase PO nutrition 07/12/20: Monitor nutrition Monitor labs Wound vac changed MWF 07/13/20: Inquire with Dr. 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 to pill form of pain medication before wound vac Restart Lisinopril as she takes at home 07/14/20: Maintain bowel regimen Wound vac change Monday, Monday, and Monday Pain control Remove IV today 07/15/20: Monitor pain Wound vac changes Reviewed team conference plans 07/16/20: Pain management Fall risk Wound vac management 07/17/20: Wound vac changes Pain control 07/18/20: Pain control Increase therapy Fall risk prevention 07/19/20: Monitor pain Increase po nutrition 07/20/20: Labs stable with hemoglobin 9.2 Encourage good nutrition Pain control with wound vac change 07/21/20: Continue bowel regimen Wound vac until wound healed 07/22/20: Change wound vac Monitor pain Continue therapies 07/23/20: Discontinue wound vac tomorrow Anxious about discharge Monitor pain 07/24/20: Discontinuing wound vac Wound care will monitor the wound and teach her how to take care of it at home 07/25/20: Monitor dressing changes Pain control 07/26/20: DC tomorrow Dressing changes daily (1) Debility (2) Evisceration of bowel Status: Acute (3) Surgical wound dehiscence Status: Acute (4) Hypertensive emergency Status: Acute (5) Hypertension Status: Chronic (6) Hyperlipidemia Status: Chronic (7) Coronary artery disease Status: Chronic (8) Abdominal pain Status: Acute (9) Anasarca (10) Anemia (11) Hirsutism (12) Leukocytosis SESAR BEEBE DO Jul 26, 2020 09:59
[2020-07-26] MEDS: ENOXAPARIN 40 MG/0.4 ML (LOVENOX) SYR SC SCH (17:06)
[2020-07-26 17:15] VITALS: BP 112/67
--- NOTE | 2020-07-26 19:17 | NUR ---
Patient has successfully changed her dressing by herself today and yesterday.
[2020-07-27] MEDS ORDERED: HYDR-3812 PO (05:51)
[2020-07-27] MEDS ORDERED: ALPR0.254 PO (05:51)
[2020-07-27] MEDS ORDERED: AMLO5TAB9 PO (05:51)
[2020-07-27] MEDS ORDERED: MTP100TCR PO (05:51)
[2020-07-27] MEDS ORDERED: CLOP75TA28 PO (05:51)
[2020-07-27] MEDS ORDERED: ASPI-999 PO (05:51)
--- NOTE | 2020-07-27 05:52 | Discharge Summary ---
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 Anasarca hx Hirsutism Poor albumin level improved h/o Ascites s/p paracentesis just bloody serous NGTD Anemia s/p transfusions 2 units 03/17/20 Situational depression Plan: IRF protocol Continue treatment plan Appreciate Surgery management 07/07/20: Monitor white count now 13 down from 16 Watery diarrhea monitoring Butt paste as needed Pain medication as needed 07/08/20: Continue changing wound vac Pain medication before wound vac change Continue strengthening from physical therapy Encourage good nutrition 07/09/20: Continue wound vac changes Bowels still loose Supportive care 07/10/20: Maintain wound vac change Monday, Monday, and Monday Good healing Bowels are still a little bit loose Continue aggressive treatment 07/11/20: Surgery to decide about abx since IV went bad Increase PO nutrition 07/12/20: Monitor nutrition Monitor labs Wound vac changed MWF 07/13/20: Inquire with Dr. Cardona regarding redness around sutures coverstitch binder to pill form of pain medication before wound vac Restart Lisinopril as she takes at home 07/14/20: Maintain bowel regimen Wound vac change Monday, Monday, and Monday Pain control Remove IV today 07/15/20: Monitor pain Wound vac changes Reviewed team conference plans 07/16/20: Pain management Fall risk Wound vac management 07/17/20: Wound vac changes Pain control 07/18/20: Pain control Increase therapy Fall risk prevention 07/19/20: Monitor pain Increase po nutrition 07/20/20: Labs stable with hemoglobin 9.2 Encourage good nutrition Pain control with wound vac change 07/21/20: Continue bowel regimen Wound vac until wound healed 07/22/20: Change wound vac Monitor pain Continue therapies 07/23/20: Discontinue wound vac tomorrow Anxious about discharge Monitor pain 07/24/20: Discontinuing wound vac Wound care will monitor the wound and teach her how to take care of it at home 07/25/20: Monitor dressing changes Pain control 07/26/20: DC tomorrow Dressing changes daily Discharge Summary Discharge Physical Examination Allergies: Coded Allergies: No Known Drug Allergies (Unverified , 11/11/19) Vitals & I&Os Vital Signs Date Time Temp Pulse Resp B/P (MAP) Pulse Ox O2 Delivery O2 Flow Rate FiO2 07/27/20 17:09 36.2 84 18 120/70 98 Room Air General Appearance: Alert, Oriented X3 Cardiovascular: Regular Rate Neuro: Normal Speech Psych/Mental Status: Mental Status NL Hospital Course Was the Problem List Reviewed?: Yes Hospital course: Pt had a lengthy hospital course for three weeks, she was admitted had a wound vac placed for abdominal dehiscence from ileostomy take- down and Pt underwent aggressive PT. She was able to regain good function, back to baseline, worked on her nutrition which helped tremendously, pain was controlled and overall she did very well. She was hesitant about leaving and tearful that she couldnt stay a couple more days but she was discharged in improved condition, all medications were sent to [facility] and will monitor that closely. Labs (last 24 hrs) Laboratory Tests 07/07/20 04:24: White Blood Count 13.4H, Red Blood Count 3.43L, Hemoglobin 9.4L, Hematocrit 29L, Mean Corpuscular Volume 83, Mean Corpuscular Hemoglobin 27, Mean Corpuscular Hemoglobin Concent 33, Red Cell Distribution Width 14.9H, Platelet Count 353, Mean Platelet Volume 8.9, Neutrophils (%) (Auto) 81H, Lymphocytes (%) (Auto) 6L, Monocytes (%) (Auto) 12, Eosinophils (%) (Auto) 2, Basophils (%) (Auto) 0, Neutrophils # (Auto) 10.9H, Lymphocytes # (Auto) 0.7L, Monocytes # (Auto) 1.6H, Eosinophils # (Auto) 0.2, Basophils # (Auto) 0.0, Neutrophils % (Manual) 84, Lymphocytes % (Manual) 5, Monocytes % (Manual) 9, Eosinophils % (Manual) 2, Blood Morphology Comment NORMAL, Sodium Level 134L, Potassium Level 4.1, [place] Level 109H, Carbon Dioxide Level 17L, Anion Gap 8, Blood Urea Nitrogen 12, Creatinine 0.70, Estimat Glomerular Filtration Rate > 60, BUN/Creatinine Ratio 17, Glucose Level 93, Calcium Level 8.0L, Corrected Calcium 9.0, Total Bilirubin 0.3, Aspartate Amino Transf (AST/SGOT) 8, Alanine Aminotransferase (ALT/SGPT) 13, Alkaline Phosphatase 147H, Total Protein 6.2L, Albumin 2.7L 07/13/20 05:52: White Blood Count 6.5, Red Blood Count 3.06L, Hemoglobin 8.2L, Hematocrit 25L, Mean Corpuscular Volume 83, Mean Corpuscular Hemoglobin 27, Mean Corpuscular Hemoglobin Concent 32, Red Cell Distribution Width 15.0H, Platelet Count 341, Mean Platelet Volume 8.3, Neutrophils (%) (Auto) 75, Lymphocytes (%) (Auto) 13, Monocytes (%) (Auto) 9, Eosinophils (%) (Auto) 2, Basophils (%) (Auto) 0, Neutrophils # (Auto) 4.9, Lymphocytes # (Auto) 0.9L, Monocytes # (Auto) 0.6, Eosinophils # (Auto) 0.2, Basophils # (Auto) 0.0, Sodium Level 139, Potassium Level 3.5L, Chlor[place] Level 108H, Carbon Dioxide Level 24, Anion Gap 7, Blood Urea Nitrogen 8, Creatinine 0.59L, Estimat Glomerular Filtration Rate > 60, BUN/Creatinine Ratio 14, Glucose Level 99, Calcium Level 8.0L, Corrected Calcium 9.3, Total Bilirubin 0.2, Aspartate Amino Transf (AST/SGOT) 11, Alanine Aminotransferase (ALT/SGPT) 6, Alkaline Phosphatase 105, Total Protein 5.4L, Al bumin 2.4L 07/18/20 07:13: White Blood Count 6.1, Red Blood Count 3.52L, Hemoglobin 9.7L, Hematocrit 30L, Mean Corpuscular Volume 84, Mean Corpuscular Hemoglobin 28, Mean Corpuscular Hemoglobin Concent 33, Red Cell Distribution Width 15.6H, Platelet Count 332, Mean Platelet Volume 8.7, Sodium Level 138, Potassium Level 4.2, Chloride Level 104, Carbon Dioxide Level 24, Anion Gap 10, Blood Urea Nitrogen 9, Creatinine 0.66, Estimat Glomerular Filtration Rate > 60, BUN/Creatinine Ratio 14, Glucose Level 95, Calcium Level 8.5 07/20/20 05:16: White Blood Count 5.7, Red Blood Count 3.39L, Hemoglobin 9.2L, Hematocrit 29L, Mean Corpuscular Volume 85, Mean Corpuscular Hemoglobin 27, Mean Corpuscular Hemoglobin Concent 32, Red Cell Distribution Width 15.7H, Platelet Count 338, Mean Platelet Volume 8.8, Neutrophils (%) (Auto) 66, Lymphocytes (%) (Auto) 20, Monocytes (%) (Auto) 11, Eosinophils (%) (Auto) 3, Basophils (%) (Auto) 0, Neutrophils # (Auto) 3.7, Lymphocytes # (Auto) 1.1, Monocytes # (Auto) 0.6, Eosinophils # (Auto) 0.2, Basophils # (Auto) 0.0, Sodium Level 136, Potassium Level 4.1, Chloride Level 104, Carbon Dioxide Level 20L, Anion Gap 12, Blood Urea Nitrogen 11, Creatinine 0.68, Estimat Glomerular Filtration Rate > 60, BUN/Creatinine Ratio 16, Glucose Level 89, Calcium Level 8.3L, Corrected Calcium 9.1, Total Bilirubin 0.2, Aspartate Amino Transf (AST/SGOT) 13, Alanine Aminotransferase (ALT/SGPT) 7, Alkaline Phosphatase 118, Total Protein 6.6, Albumin 3.0L 07/27/20 06:00: White Blood Count 6.1, Red Blood Count 3.80L, Hemoglobin 10.2L, Hematocrit 32L, Mean Corpuscular Volume 83, Mean Corpuscular Hemoglobin 27, Mean Corpuscular Hemoglobin Concent 32, Red Cell Distribution Width 15.5H, Platelet Count 334, Mean Platelet Volume 9.1, Neutrophils (%) (Auto) 63, Lymphocytes (%) (Auto) 21, Monocytes (%) (Auto) 11, Eosinophils (%) (Auto) 4, Basophils (%) (Auto) 1, Neutrophils # (Auto) 3.8, Lymphocytes # (Auto) 1.3, Monocytes # (Auto) 0.7, Eosinophils # (Auto) 0.3, Basophils # (Auto) 0.0, Sodium Level 134L, Potassium Level 4.4, Chloride Level 104, Carbon Dioxide Level 20L, Anion Gap 10, Blood Urea Nitrogen 19H, Creatinine 0.84, Estimat Glomerular Filtration Rate > 60, BUN/Creatinine Ratio 23, Glucose Level 85, Calcium Level 8.7, Corrected Calcium 9.3, Total Bilirubin 0.3, Aspartate Amino Transf (AST/SGOT) 11, Alanine Aminotransferase (ALT/SGPT) 6, Alkaline Phosphatase 111, Total Protein 6.8, Albumin 3.2 Pending Labs Laboratory Tests 07/07/20 04:24: White Blood Count 13.4, Red Blood Count 3.43, Hemoglobin 9.4, Hematocrit 29, Mean Corpuscular Volume 83, Mean Corpuscular Hemoglobin 27, Mean Corpuscular Hemoglobin Concent 33, Red Cell Distribution Width 14.9, Platelet Count 353, Mean Platelet Volume 8.9, Neutrophils (%) (Auto) 81, Lymphocytes (%) (Auto) 6, Monocytes (%) (Auto) 12, Eosinophils (%) (Auto) 2, Basophils (%) (Auto) 0, Neutrophils # (Auto) 10.9, Lymphocytes # (Auto) 0.7, Monocytes # (Auto) 1.6, Eosinophils # (Auto) 0.2, Basophils # (Auto) 0.0, Neutrophils % (Manual) 84, Lymphocytes % (Manual) 5, Monocytes % (Manual) 9, Eosinophils % (Manual) 2, Blood Morphology Comment NORMAL, Sodium Level 134, Potassium Level 4.1, [place]lor[place] Level 109, Carbon Dioxide Level 17, Anion Gap 8, Blood Urea Nitrogen 12, Creatinine 0.70, Estimat Glomerular Filtration Rate > 60, BUN/Creatinine Ratio 17, Glucose Level 93, Calcium Level 8.0, Corrected Calcium 9.0, Total Bilirubin 0.3, Aspartate Amino Transf (AST/SGOT) 8, Alanine Aminotransferase (ALT/SGPT) 13, Alkaline Phosphatase 147, Total Protein 6.2, Albumin 2.7 07/13/20 05:52: White Blood Count 6.5, Red Blood Count 3.06, Hemoglobin 8.2, Hematocrit 25, Mean Corpuscular Volume 83, Mean Corpuscular Hemoglobin 27, Mean Corpuscular Hemoglobin Concent 32, Red Cell Distribution Width 15.0, Platelet Count 341, Mean Platelet Volume 8.3, Neutrophils (%) (Auto) 75, Lymphocytes (%) (Auto) 13, Monocytes (%) (Auto) 9, Eosinophils (%) (Auto) 2, Basophils (%) (Auto) 0, Neutrophils # (Auto) 4.9, Lymphocytes # (Auto) 0.9, Monocytes # (Auto) 0.6, Eosinophils # (Auto) 0.2, Basophils # (Auto) 0.0, Sodium Level 139, Potassium Level 3.5, Chloride Level 108, Carbon Dioxide Level 24, Anion Gap 7, Blood Urea Nitrogen 8, Creatinine 0.59, Estimat Glomerular Filtration Rate > 60, BUN/Creati nine Ratio 14, Glucose Level 99, Calcium Level 8.0, Corrected Calcium 9.3, Total Bilirubin 0.2, Aspartate Amino Transf (AST/SGOT) 11, Alanine Aminotransferase (ALT/SGPT) 6, Alkaline Phosphatase 105, Total Protein 5.4, Albumin 2.4 07/18/20 07:13: White Blood Count 6.1, Red Blood Count 3.52, Hemoglobin 9.7, Hematocrit 30, Mean Corpuscular Volume 84, Mean Corpuscular Hemoglobin 28, Mean Corpuscular Hemoglobin Concent 33, Red Cell Distribution Width 15.6, Platelet Count 332, Mean Platelet Volume 8.7, Sodium Level 138, Potassium Level 4.2, Chloride Level 104, Carbon Dioxide Level 24, Anion Gap 10, Blood Urea Nitrogen 9, Creatinine 0.66, Estimat Glomerular Filtration Rate > 60, BUN/Creatinine Ratio 14, Glucose Level 95, Calcium Level 8.5 07/20/20 05:16: White Blood Count 5.7, Red Blood Count 3.39, Hemoglobin 9.2, Hematocrit 29, Mean Corpuscular Volume 85, Mean Corpuscular Hemoglobin 27, Mean Corpuscular Hemoglobin Concent 32, Red Cell Distribution Width 15.7, Platelet Count 338, Mean Platelet Volume 8.8, Neutrophils (%) (Auto) 66, Lymphocytes (%) (Auto) 20, Monocytes (%) (Auto) 11, Eosinophils (%) (Auto) 3, Basophils (%) (Auto) 0, Neutrophils # (Auto) 3.7, Lymphocytes # (Auto) 1.1, Monocytes # (Auto) 0.6, Eosinophils # (Auto) 0.2, Basophils # (Auto) 0.0, Sodium Level 136, Potassium Level 4.1, Chloride Level 104, Carbon Dioxide Level 20, Anion Gap 12, Blood Urea Nitrogen 11, Creatinine 0.68, Estimat Glomerular Filtration Rate > 60, BUN/Creatinine Ratio 16, Glucose Level 89, Calcium Level 8.3, Corrected Calcium 9.1, Total Bilirubin 0.2, Aspartate Amino Transf (AST/SGOT) 13, Alanine Aminotransferase (ALT/SGPT) 7, Alkaline Phosphatase 118, Total Protein 6.6, Albumin 3.0 07/27/20 06:00: White Blood Count 6.1, Red Blood Count 3.80, Hemoglobin 10.2, Hematocrit 32, Mean Corpuscular Volume 83, Mean Corpuscular Hemoglobin 27, Mean Corpuscular Hemoglobin Concent 32, Red Cell Distribution Width 15.5, Platelet Count 334, Mean Platelet Volume 9.1, Neutrophils (%) (Auto) 63, Lymphocytes (%) (Auto) 21, Monocytes (%) (Auto) 11, Eosinophils (%) (Auto) 4, Basophils (%) (Auto) 1, Neutrophils # (Auto) 3.8, Lymphocytes # (Auto) 1.3, Monocytes # (Auto) 0.7, Eosinophils # (Auto) 0.3, Basophils # (Auto) 0.0, Sodium Level 134, Potassium Level 4.4, Chloride Level 104, Carbon Dioxide Level 20, Anion Gap 10, Blood Urea Nitrogen 19, Creatinine 0.84, Estimat Glomerular Filtration Rate > 60, BUN/Creatinine Ratio 23, Glucose Level 85, Calcium Level 8.7, Corrected Calcium 9.3, Total Bilirubin 0.3, Aspartate Amino Transf (AST/SGOT) 11, Alanine Aminotransferase (ALT/SGPT) 6, Alkaline Phosphatase 111, Total Protein 6.8, Albumin 3.2 Discharge Home Medications: Active Scripts Active Hydrocodone-Acetamin 5-325 mg (Hydrocodone/Acetaminophen) 1 Each Tablet 1 Tab PO Q4H PRN Aspirin 81 Mg Tab.chew 81 Mg PO DAILY Amlodipine Besylate 5 Mg Tablet 5 Mg PO DAILY Metoprolol Succinate 100 Mg Tab.er.24h 100 Mg PO DAILY Clopidogrel (Clopidogrel Bisulfate) 75 Mg Tablet 75 Mg PO DAILY Alprazolam 0.25 Mg Tablet 0.25 Mg PO Q8H PRN Reported Oxycodone HCl 5 Mg Capsule 5 Mg PO Q4H PRN Pantoprazole Sodium 40 Mg Tablet.dr 40 Mg PO DAILY Lisinopril 20 Mg Tablet 20 Mg PO BID Instructions to patient/family Please see electronic discharge instructions given to patient. Diagnosis/Problems Diagnosis/Problems (1) Debility (2) Evisceration of bowel Status: Acute (3) Surgical wound dehiscence Status: Acute (4) Hypertensive emergency Status: Acute (5) Hypertension Status: Chronic (6) Hyperlipidemia Status: Chronic (7) Coronary artery disease Status: Chronic (8) Abdominal pain Status: Acute (9) Anasarca (10) Anemia (11) Hirsutism (12) Leukocytosis SESAR BEEBE DO Jul 27, 2020 05:52
[2020-07-27 06:00] VITALS: BP 120/70
[2020-07-27 06:30] LABS: BASOPHILS % (AUTO) 1 % (0-10); EOSINOPHILS # (AUTO) 0.3 10^3/uL (0.0-0.3); EOSINOPHILS % (AUTO) 4 % (0-10); HEMATOCRIT 32 % (35-52); HEMOGLOBIN 10.2 G/DL (11.5-16.0); LYMPHOCYTES # (AUTO) 1.3 X 10^3 (1.0-4.0); LYMPHOCYTES % (AUTO) 21 % (12-44); MEAN CORPUSCULAR HEMOGLOBIN 27 PG (25-34); MEAN CORPUSCULAR HGB CONC 32 G/DL (32-36); MEAN CORPUSCULAR VOLUME 83 FL (80-99); MEAN PLATELET VOLUME 9.1 FL (7.4-10.4); MONOCYTES # (AUTO) 0.7 X 10^3 (0.0-1.0); MONOCYTES % (AUTO) 11 % (0-12); NEUTROPHILS # (AUTO) 3.8 X 10^3 (1.8-7.8); NEUTROPHILS % (AUTO) 63 % (42-75); PLATELET COUNT 334 10^3/uL (130-400); RED CELL DISTRIBUTION WIDTH 15.5 % (10.0-14.5); WHITE BLOOD COUNT 6.1 10^3/uL (4.3-11.0)
[2020-07-27 06:51] LABS: ALBUMIN 3.2 GM/DL (3.2-4.5); CHLORIDE 104 MMOL/L (98-107); POTASSIUM 4.4 MMOL/L (3.6-5.0); SODIUM 134 MMOL/L (135-145)
[2020-07-27 06:52] LABS: CALCIUM 8.7 MG/DL (8.5-10.1)
[2020-07-27 06:53] LABS: GLUCOSE 85 MG/DL (70-105); TOTAL PROTEIN 6.8 GM/DL (6.4-8.2)
[2020-07-27 06:54] LABS: CARBON DIOXIDE 20 MMOL/L (21-32)
[2020-07-27 06:55] LABS: BILIRUBIN,TOTAL 0.3 MG/DL (0.1-1.0)
[2020-07-27 06:57] LABS: ALKALINE PHOSPHATASE 111 U/L (40-136); CREATININE SERUM 0.84 MG/DL (0.60-1.30); GFR ESTIMATED > 60
[2020-07-27 06:58] LABS: BUN/CREATININE RATIO 23
[2020-07-27 07:00] LABS: ALANINE AMINOTRANSFERASE 6 U/L (0-55)
--- NOTE | 2020-07-27 07:43 | Occupational Ther Daily Note ---
OT Current Status-Daily Note Subjective Pt was alert, sitting at sink. Pt agreed to OT. No c/o of pain reported. Mental Status/Objective Patient Orientation: Person, Place, Time, Situation ADL-Treatment Pt sit to stand from chair and ambulated to counter and grasped clean clothing for after showering. Pt then ambulated back to shower bench. OT covered wound. Pt doffed sock and hospital gown independently. Pt completes bathing by self using shower bench, grab bars, and hand held shower. Takes time to complete all steps of showering. Pt able to take coverings off of wound, independently. Pt reached for shirt and was able don independently. Pt was able to complete lower body dressing, independently. Pt donned socks, independently. After bathing, pt ambulated to sink and sat at chair. Completed oral hygiene independently. Ambulated to recliner. After therapy, call/light phone in reach. All needs met. Therapy Code Descriptions/Definitions Functional [place] Measure: 0=Not Assessed/NA 4=Minimal Assistance 1=Total Assistance 5=Supervision or Setup 2=Maximal Assistance 6=Modified [place] 3=Moderate Assistance 7=Complete IndependenceSCALE: Activities may be completed with or without assistive devices. 0-Zrisgkbtyb-zehzonj completes the activity by him/herself with no assistance from a helper. 5-Set-up or Clean-up Assistance-helper sets up or cleans up; patient completes activity. [place] assists only prior to or following the activity. 4-Supervision or Touching Assistance-helper provides verbal cues and/or touching/steadying and/or contact guard assistance as patient completes activity. Assistance may be provided throughout the activity or intermittently. 3-Partial/Moderate Assistance-helper does LESS THAN HALF the effort. [place] lifts, holds or supports trunk or limbs, but provides less than half the effort. 2-Substantial/Maximal Assistance-helper does MORE THAN HALF the effort. [place] lifts or holds trunk or limbs and provides more than half the effort. 3-Sixqvyeaw-okuyra does ALL the effort. Patient does none of the effort to complete the activity. Or, the assistance of 2 or more helpers is required for the patient to complete the activity. If activity was not attempted, code reason: 7-Patient Refused. 9-Not Applicable-not attempted and the patient did not perform the activity before the current illness, exacerbation or injury. 10-Not Attempted due to Environmental Limitations-(lack of equipment, weather restraints, etc.). 88-Not Attempted due to Medical Conditions or Safety Concerns. Eating (QC): 6 (per clinical judgement, pt able to complete own set up of meal and use regular utensils.) Oral Hygiene (QC): 6 Bathing Location: L Arm, R Arm, L Upper Leg, R Upper Leg, L Lower Leg (including foot), R Lower Leg (including foot), Chest, Abdomen, Buttocks, Perineal Area Shower/Bathe Self (QC): 6 Upper Body Dressing (QC): 6 Lower Body Dressing (QC): 6 On/Off Footwear: 6 Toileting Hygiene (QC): 6 (Using clinical judgment, pt able to complete hygiene and clothing manipulation for toileting.) Toilet Transfer (QC): 6 (Using clinical judgement, pt able to transfer to toilet by self.) OT Retirement Goals Dye Tub Tender Goals Time Frame: Jul 20, 2020 Eating (QC): 6 (Met) Oral Hygiene (QC): 6 (Met) Toileting Hygiene (QC): 6 (met) Shower/Bathe Self (QC): 6 (Met) Upper Body Dressing (QC): 6 (Met) Lower Body Dressing (QC): 6 (Met) On/Off Footwear (QC): 6 (Met) Additional Goals: 1-Demonstrate ADL Tasks, 2-Verbalize Understanding, 3- ImproveStrength/Fern 1=Demonstrate adherence to instructed precautions during ADL tasks. 2=Patient will verbalize/demonstrate understanding of assistive devices/modifications for ADL. 3=Patient will improve strength/tolerance for activity to enable patient to perform ADL's. OT Education/Plan Problem List/Assessment Assessment: Impaired Funct Balance, Impaired I ADL's, Impaired Self-Care Skills Discharge Recommendations Plan/Recommendations: Discharge/Goals Met Treatment Plan/Plan of Care Patient would benefit from OT for education, treatment and training to promote independence in ADL's, mobility, safety and/or upper extremity function for ADL's. Plan of Care: ADL Retraining, Concurrent Therapy, Functional Mobility, Group Exercise/Act as Ind, UE Funct Exercise/Act Treatment Duration: Jul 20, 2020 Frequency: At least 5 of 7 days/Wk (IRF) Estimated Hrs Per Day: 1.5 hours per day Agreement: Yes Rehab Potential: Good Time/GCodes Start Time: 07:30 Stop Time: 08:30 Total Time Billed (hr/min): 60 Billed Treatment Time 1 Visit- ADL 4 (60 mins) LEYDA HOBSON Jul 27, 2020 07:43
[2020-07-27 09:00] VITALS: BP 145/87
--- NOTE | 2020-07-27 10:08 | Physical Therapy Daily Note ---
PT Daily Note-Current Subjective Pt very tearful about discharge this date. Hoping to stay one more day. Reports she is nervous about her bandage change. Pain Numeric Pain Scale: 0-No Pain Location: No Pain Reported Mental Status Patient Orientation: Person, Place, Time, Situation Transfers SCALE: Activities may be completed with or without assistive devices. 6-Afpuzkxbwa-qcbzkvv completes the activity by him/herself with no assistance from a helper. 5-Set-up or Clean-up Assistance-helper sets up or cleans up; patient completes activity. [place] assists only prior to or following the activity. 4-Supervision or Touching Assistance-helper provides verbal cues and/or touching/steadying and/or contact guard assistance as patient completes activity. Assistance may be provided throughout the activity or intermittently. 3-Partial/Moderate Assistance-helper does LESS THAN HALF the effort. [place] lifts, holds or supports trunk or limbs, but provides less than half the effort. 2-Substantial/Maximal Assistance-helper does MORE THAN HALF the effort. [place] lifts or holds trunk or limbs and provides more than half the effort. 6-Yydlfutze-tsjfag does ALL the effort. Patient does none of the effort to complete the activity. Or, the assistance of 2 or more helpers is required for the patient to complete the activity. If activity was not attempted, code reason: 7-Patient Refused. 9-Not Applicable-not attempted and the patient did not perform the activity before the current illness, exacerbation or injury. 10-Not Attempted due to Environmental Limitations-(lack of equipment, weather restraints, etc.). 88-Not Attempted due to Medical Conditions or Safety Concerns. Roll Left & Right (QC): 6 Sit to Lying (QC): 6 Lying to Sitting/Side of Bed(Q: 6 Sit to Stand (QC): 6 Chair/Bcn-pw-Zxblb Xfer(QC): 6 Toilet Transfer (QC): 6 Car Transfer (QC): 6 Weight Bearing Right Lower Extremity: Right Weight Bearing/Tolerated Left Lower Extremity: Left Weight Bearing/Tolerated Gait Training Does the Patient Walk?: Yes Walk 10 feet (QC): 6 Walk 50 ft with 2 Turns(QC): 6 Walk 150 ft (QC): 6 Walking 10ft/uneven surface-QC: 6 Gait Assistive Device: Cane Small Base Quad steady gait Wheelchair Training Does the Pt Use a Wheelchair?: No Wheel 50 ft with 2 turns (QC): 9 Wheel 150 ft (QC): 9 Stair Training 1 Step (curb) (QC): 6 4 Steps (QC): 6 12 Steps (QC): 6 Balance Picking up an Object (QC): 5 Exercises NuStep Minutes: 15 Treatments Gait training >1000 in the valera with quad cane. UP/down a flight of steps. Education on safety and encouragement for her planned discharge. Assessment Current Status: Excellent Progress Pt has progressed well and is meeting PT goals this date. Appears to be fearful about discharge. PT Short Term Goals Short Term Goals Time Frame: Jul 11, 2020 Sit to lyin Lying to sitting on side of be: 4 Sit to stand: 5 Walk 150 feet: 4 4 steps: 4 PT Plate Slitter And Inspector Goals Assisted Goals PT Plate Slitter And Inspector Goals Time Frame: Jul 22, 2020 Roll Left & Right (QC): 6 (met) Sit to Lying (QC): 6 (met) Lying-Sitting on Side/Bed(QC): 6 (met) Sit to Stand (QC): 6 (met) Chair/Dfl-za-Htzgx Xfer(QC): 6 (met) Toilet Transfer (QC): 6 (met) Car Transfer (QC): 6 (met) Does the Patient Walk: Yes Walk 10 feet (QC): 6 (met) Walk 50ft with 2 Turns (QC): 6 (met) Walk 150 ft (QC): 6 (met) Walking 10ft on Uneven Surface: 6 (metmet) 1 Step (curb) (QC): 6 (met) 4 Steps (QC): 6 (met) 12 Steps (QC): 4 (met) Picking up an Object (QC): 4 (exeeded) Wheel 50 feet with 2 turns (QC: 9 Wheel 150 feet: 9 PT Plan Problem List Problem List: Activity Tolerance Treatment/Plan Treatment Plan: Discontinue PT Treatment Plan: Bed Mobility, Education, Functional Activity Fern, Functional Strength, Group Therapy, Gait, Safety, Therapeutic Exercise, Transfers Treatment Duration: Jul 22, 2020 Frequency: At least 5 of 7 days/Wk (IRF) Estimated Hrs Per Day: 1.5 hours per day Patient and/or Family Agrees t: Yes Safety Risks/Education Patient Education: Safety Issues Teaching Recipient: Patient Teaching Methods: Discussion Response to Teaching: Verbalize Understanding Time/GCodes Time In: 905 Time Out: 1000 Total Billed Treatment Time: 55 Total Billed Treatment visit FA 40 EX 15 LEYDA GHOSH PT Jul 27, 2020 10:08
--- NOTE | 2020-07-27 10:22 | NUR ---
CM/SS Patient discharged as planned over the past 5 days. She has self-directed her transport home via a friend. Patient does not have a car and, when working, she used taxi services. This adds an additional psychosocial burden to patient's already complex situation as far as followup appointments, care, treatment. Unit RN will send home wound care supplies because there was no home health accepting agency in patient's service area due to uninsured status. Transformer Builder informed her DPOA-HC/Donna that patient was leaving today as a courtesy and so that Donna can check on her status periodically.
[2020-07-27] MEDS: meTOprolol SUCCINATE 100 MG (TOPROL XL) TAB PO SCH (10:31)
[2020-07-27] MEDS: ASPIRIN 81 MG CHEW (CHILDREN'S ASA) PO SCH (10:32)
[2020-07-27] MEDS: amLODIPine 5 MG (NORVASC) TAB PO SCH (10:32)
[2020-07-27] MEDS: lisINopril 20 MG (PRINIVIL) TABLET PO SCH (10:32)
[2020-07-27] MEDS: CLOPIDOGREL 75 MG (PLAVIX) TABLET PO SCH (10:32)
[2020-07-27] MEDS: HYDROcodone/APAP 5 MG/325 MG (LORTAB) TAB PO PRN (13:25)
--- NOTE | 2020-07-27 14:21 | Therapy Team Discharge Summary ---
Therapy Discharge Summary Discharge Recommendations Date of Discharge Physical Therapy This patient was admitted to ARU post acute hospital stay due to debility. At home, she had been at a mod indep level of mobility after a recent discharge from ARU> Upon admission to this unit, she was generally min assist with bed mobiltiy, transfers and gait. Treatment has focused on functional strength, balance and mobility to allow her to return home with the least amount of assist and least restrictive AD. At discharge, she is mod indep with all transfers, bed mobility, and gait as well as on stairs. She has made excellent progress and has met all goals set at evaluation. She is to discharge home. Recommend [facility] PT to follow, but pt resistant to home services in her home. Pt to discharge at this time. Occupational Therapy Impaired Funct Balance, Impaired I ADL's, Impaired Self-Care Skills PT Wildlife Management Professor Goals Wildlife Management Professor Goals PT Wildlife Management Professor Goals Time Frame: Jul 22, 2020 Roll Left to Right (QC): 6 (met) Sit to Lying (QC): 6 (met) Lying-Sitting on Side/Bed(QC): 6 (met) Sit to Stand (QC): 6 (met) Chair/Dkg-ng-Lxokj Xfer(QC): 6 (met) Car Transfer (QC): 6 (met) Does the Patient Walk: Yes Walk 10 feet (QC): 6 (met) Walk 10ft-Uneven Surface(QC): 6 (metmet) Walk 50ft with 2 Turns (QC): 6 (met) Walk 150 ft (QC): 6 (met) Wheel 50 feet with 2 turns (QC: 9 1 Step (curb) (QC): 6 (met) 4 Steps (QC): 6 (met) 12 Steps (QC): 4 (met) Picking up an Object (QC): 4 (exeeded) All goals met. OT Wildlife Management Professor Goals Senior Living Goals Time Frame: Jul 20, 2020 Eating (QC): 6 (Met) Oral Hygiene (QC): 6 (Met) Shower/Bathe Self (QC): 6 (Met) Upper Body Dressing (QC): 6 (Met) Lower Body Dressing (QC): 6 (Met) On/Off Footwear (QC): 6 (Met) Toileting Hygiene (QC): 6 (met, per clinical judgement) Toilet/Commode Transfer (QC): 6 (met) Additional Goals: 1-Demonstrate ADL Tasks, 2-Verbalize Understanding, 3- ImproveStrength/Fern 1=Demonstrate adherence to instructed precautions during ADL tasks. 2=Patient will verbalize/demonstrate understanding of assistive devices/modifications for ADL. 3=Patient will improve strength/tolerance for activity to enable patient to perform ADL's. LEYDA GHOSH PT Jul 27, 2020 14:21
[2020-07-27 17:09] VITALS: BP 120/70
--- NOTE | 2020-07-28 10:47 | Therapy Team Discharge Summary ---
Therapy Discharge Summary Discharge Recommendations Date of Discharge Jul 27, 2020 at 13:45 Occupational Therapy Pt admits to ARU with debility/ ileoproctostomy dx. During initial eval, pt with SBA for showering/ CGA for toileting. Pt completes UB dressing with w/u and min A for footwear, LB dressing. Pt and OT work toward higher fx IND through ADL retraining, UE fx activity tolerance, safety and education. Pt d/c's with all ADLs at IND level. Pt to d/c home; d/c OT at this time. Impaired Funct Balance, Impaired I ADL's, Impaired Self-Care Skills PT Charger Operator Goals Charger Operator Goals PT Charger Operator Goals Time Frame: Jul 22, 2020 Roll Left to Right (QC): 6 (met) Sit to Lying (QC): 6 (met) Lying-Sitting on Side/Bed(QC): 6 (met) Sit to Stand (QC): 6 (met) Chair/Wuv-rs-Ydiwx Xfer(QC): 6 (met) Car Transfer (QC): 6 (met) Does the Patient Walk: Yes Walk 10 feet (QC): 6 (met) Walk 10ft-Uneven Surface(QC): 6 (metmet) Walk 50ft with 2 Turns (QC): 6 (met) Walk 150 ft (QC): 6 (met) Wheel 50 feet with 2 turns (QC: 9 1 Step (curb) (QC): 6 (met) 4 Steps (QC): 6 (met) 12 Steps (QC): 4 (met) Picking up an Object (QC): 4 (exeeded) OT Charger Operator Goals Charger Operator Goals Time Frame: Jul 20, 2020 Eating (QC): 6 (Met) Oral Hygiene (QC): 6 (Met) Shower/Bathe Self (QC): 6 (Met) Upper Body Dressing (QC): 6 (Met) Lower Body Dressing (QC): 6 (Met) On/Off Footwear (QC): 6 (Met) Toileting Hygiene (QC): 6 (met) Toilet/Commode Transfer (QC): 6 (met) Additional Goals: 1-Demonstrate ADL Tasks, 2-Verbalize Understanding, 3- ImproveStrength/Fern 1=Demonstrate adherence to instructed precautions during ADL tasks. 2=Patient will verbalize/demonstrate understanding of assistive devices/modifications for ADL. 3=Patient will improve strength/tolerance for activity to enable patient to perform ADL's. MAISHA DAVENPORT OTR Jul 28, 2020 10:47
== END 2020-07-27 13:45 | disposition home or self-care (01) | DRG 948 ==
PROVIDERS: ADMIT Internal Medicine; ATTEND Internal Medicine
DX: R53.1 Weakness (principal); R53.81 Other malaise; Z48.815 Encounter for surgical aftercare following surgery on the digestive system; I10 Essential (primary) hypertension; E78.5 Hyperlipidemia, unspecified; F43.21 Adjustment disorder with depressed mood; F41.9 Anxiety disorder, unspecified; I25.10 Atherosclerotic heart disease of native coronary artery without angina pectoris; D64.9 Anemia, unspecified; R19.7 Diarrhea, unspecified; L68.0 Hirsutism; I25.2 Old myocardial infarction; Z87.01 Personal history of pneumonia (recurrent); Z95.5 Presence of coronary angioplasty implant and graft
CPT/HCPCS: 36415; 80048; 80053; 85007; 85025; 85027

== ENCOUNTER → 2020-12-24 | Outpatient (CLI) | payer SELFPAY ==
[~2020-12-24] MED LIST changes: +ACHD5005 PO; +ALPR.25T PO; -ALPR0.254 PO; +AMLO-250 PO; +ASPI-1238 PO; -ASPI-983 PO; +ASPI-999 PO; +MTP100TCR PO; +OXC5T PO; -OXYC5TAB96 PO; -PANT40TA3 PO; +PANT40TA52 PO
--- NOTE | 2020-12-24 15:12 | Diagnostic Imaging Report ---
INDICATION: Pelvic pain. Right hip pain. EXAMINATION: AP view of the pelvis. FINDINGS: No acute fracture or dislocation. There is some enthesopathy of the iliac crests and greater trochanters. IMPRESSION: No acute abnormality is seen in the pelvis. Dictated by: Dictated on workstation # [id number]
--- NOTE | 2020-12-24 15:39 | Diagnostic Imaging Report ---
INDICATION: Fall with sacral pain. AP and lateral views of sacrum and coccyx are obtained. No overt sacral fracture seen. Sacral foramina appear symmetric. SI joints show moderate degenerative change. IMPRESSION: No acute sacral fracture. Underlying degenerative findings. Dictated by: Dictated on workstation # [id number]
== END ==
LOC: RAD FS 14:37
PROVIDERS: ATTEND Nurse Practitioner Family
DX: M25.551 Pain in right hip (principal); M53.3 Sacrococcygeal disorders, not elsewhere classified; W19.XXXA Unspecified fall, initial encounter
CPT/HCPCS: 72170; 72220

== ENCOUNTER 2021-01-09 20:20 | Emergency (ER) | payer SELFPAY ==
[~2021-01-09 20:20] MED LIST changes: -LISI-552 PO; +LISI20TA26 PO
--- NOTE | 2021-01-09 20:44 | ED General ---
General Stated Complaint: LOWER BACK PAIN History of Present Illness Date Seen by Provider: Jan 09, 2021 Time Seen by Provider: 20:39 Initial Comments 55-year-old female presents via EMS with complaint of back pain. Denies any trauma or injury or previous problems with back pain. States she had Covid illness 2 months ago and since then has not been feeling well. She complains of generalized body aches and muscle pain. Denies fever or chills. Denies nausea vomiting constipation or diarrhea. Denies chest pain, swelling of extremities, cough or shortness of air. Allergies and Home Medications Allergies Coded Allergies: No Known Drug Allergies (Unverified , 11/11/19) Home Medications ALPRAZolam 0.25 Mg Tablet, 0.25 MG PO Q8H PRN for ANXIETY Prescribed by: SESAR BEEBE on 07/27/2052 Amlodipine Besylate 5 Mg Tablet, 5 MG PO DAILY Prescribed by: SESAR BEEBE on 07/27/2051 Aspirin 81 Mg Tab.chew, 81 MG PO DAILY Prescribed by: SESAR BEEBE on 07/27/2051 Clopidogrel Bisulfate 75 Mg Tablet, 75 MG PO DAILY Prescribed by: SESAR BEEBE on 07/27/20 0551 Hydrocodone/Acetaminophen 1 Each Tablet, 1 TAB PO Q4H PRN for PAIN-MODERATE (5- 7) Prescribed by: SESAR BEEBE on 07/27/20 0552 Lisinopril 20 Mg Tablet, 20 MG PO BID, (Reported) Metoprolol Succinate 100 Mg Tab.er.24h, 100 MG PO DAILY Prescribed by: SESAR BEEBE on 07/27/20 0551 Oxycodone HCl 5 Mg Capsule, 5 MG PO Q4H PRN for PAIN-MODERATE (5-7), (Reported) Pantoprazole Sodium 40 Mg Tablet.dr, 40 MG PO DAILY, (Reported) Patient Home Medication List Home Medication List Reviewed: Yes Review of Systems Review of Systems Constitutional: see HPI; No chills, No dizziness, No fever; malaise, weakness EENTM: no symptoms reported Respiratory: No cough Cardiovascular: No chest pain, No edema, No palpitations, No syncope Gastrointestinal: No abdominal pain, No constipation, No diarrhea, No nausea, No vomiting Genitourinary: No dysuria, No frequency, No hematuria Musculoskeletal: back pain; No joint pain, No joint swelling; muscle pain Skin: No change in color, No rash Psychiatric/Neurological: Denies Numbness, Denies Paresthesia, Denies Tremors, Denies Weakness Past Mtgkzpx-Zlxwyq-Hyunhx Hx Past Med/Social Hx: Reviewed Nursing Past Med/Soc Hx Patient Social History 2nd Hand Smoke Exposure: No Recent Hopitalizations: Yes Seasonal Allergies Seasonal Allergies: Yes Past Medical History Surgeries: Yes (ILEOSTOMY take down and reanastamosis) Abdominal, Cardiac, Coronary Stent Respiratory: No Currently Using CPAP: No Currently Using BIPAP: No Cardiac: Yes (STENTS X3) Heart Attack, High Cholesterol, Hypertension Neurological: No Sexually Transmitted Disease: No HIV/AIDS: No Genitourinary: No Gastrointestinal: Yes (ILEOSTOMY, HX BLOCKED BOWEL, ILLEOSTOMY TAKEDOWN) Obstructive Bowel, Chronic Constipation Musculoskeletal: No Endocrine: No HEENT: No Cancer: No Psychosocial: Yes Sleep Difficulties, Anxiety, Depression Integumentary: No Blood Disorders: No Adverse Reaction/Blood Tranf: No (HAD TRANSFUSION WITHOUT PROBLEMS) Family Medical History Cardiovascular disease 19 FATHER Hypertension 19 MOTHER No Pertinent Family Hx, Hypertension, Other Conditions/Hx Physical Exam Vital Signs Vital Signs - First Documented 01/09/21 20:28 Temp 36.2 Pulse 77 Resp 16 B/P (MAP) 85/53 (64) Pulse Ox 100 O2 Delivery Room Air Capillary Refill : Height, Weight, BMI Height: '" Weight: lbs. oz. kg; 29.10 BMI Method: General Appearance: No Apparent Distress, WD/WN Eyes: Bilateral Eye Normal Inspection, Bilateral Eye PERRL, Bilateral Eye EOMI HEENT: PERRL/EOMI, Other (DRY Mucous membranes) Neck: Non Tender, Supple Respiratory: Chest Non Tender, Lungs Clear, Normal Breath Sounds, No Accessory Muscle Use Cardiovascular: Regular Rate, Rhythm, No Edema, No JVD Back: Normal Inspection, No Vertebral Tenderness, CVA Tenderness (L), CVA Tenderness (R), Other (diffuse paraspinal TTP lower thoracic and lumbar) Extremity: Normal Capillary Refill, Normal Inspection, Non Tender Neurologic/Psychiatric: Alert, Oriented x3, No Motor/Sensory Deficits, Depressed Affect Focused Exam Lactate Level 01/09/21 21:22: Lactic Acid Level 0.81 Lactic Acid Level Laboratory Tests Test 01/09/21 21:22 Lactic Acid Level 0.81 MMOL/L (0.50-2.00) Progress/Results/Core Measures Suspected Sepsis SIRS Temperature: Pulse: Respiratory Rate: Laboratory Tests 01/09/21 20:46: White Blood Count 18.3H Blood Pressure / Mean: 01/09/21 21:22: Lactic Acid Level 0.81 Laboratory Tests 01/09/21 20:46: Creatinine 6.13H, Platelet Count 273, Total Bilirubin 0.2 Results/Orders Lab Results Laboratory Tests Test 01/09/21 20:46 01/09/21 21:22 Range/Units White Blood Count 18.3 H 4.3-11.0 10^3/uL Red Blood Count 4.39 4.35-5.85 10^6/uL Hemoglobin 11.9 11.5-16.0 G/DL Hematocrit 36 35-52 % Mean Corpuscular Volume 82 80-99 FL Mean Corpuscular Hemoglobin 27 25-34 PG Mean Corpuscular Hemoglobin Concent 33 32-36 G/DL Red Cell Distribution Width 15.9 H 10.0-14.5 % Platelet Count 273 130-400 10^3/uL Mean Platelet Volume 9.7 7.4-10.4 FL Immature Granulocyte % (Auto) 0 % Neutrophils (%) (Auto) 91 H 42-75 % Lymphocytes (%) (Auto) 3 L 12-44 % Monocytes (%) (Auto) 5 0-12 % Eosinophils (%) (Auto) 0 0-10 % Basophils (%) (Auto) 0 0-10 % Neutrophils # (Auto) 16.7 H 1.8-7.8 X 10^3 Lymphocytes # (Auto) 0.6 L 1.0-4.0 X 10^3 Monocytes # (Auto) 0.9 0.0-1.0 X 10^3 Eosinophils # (Auto) 0.0 0.0-0.3 10^3/uL Basophils # (Auto) 0.0 0.0-0.1 10^3/uL Immature Granulocyte # (Auto) 0.1 0.0-0.1 10^3/uL Neutrophils % (Manual) 97 % Lymphocytes % (Manual) 3 % Sodium Level 124 *L 135-145 MMOL/L Potassium Level 7.3 *H 3.6-5.0 MMOL/L Chloride Level 102 98-107 MMOL/L Carbon Dioxide Level 8 *L 21-32 MMOL/L Anion Gap 14 5-14 MMOL/L Blood Urea Nitrogen 270 *H 7-18 MG/DL Creatinine 6.13 H 0.60-1.30 MG/DL Estimat Glomerular Filtration Rate 7 BUN/Creatinine Ratio 44 Glucose Level 100 70-105 MG/DL Calcium Level 7.7 L 8.5-10.1 MG/DL Corrected Calcium 8.6 8.5-10.1 MG/DL Total Bilirubin 0.2 0.1-1.0 MG/DL Aspartate Amino Transf (AST/SGOT) 7 5-34 U/L Alanine Aminotransferase (ALT/SGPT) 9 0-55 U/L Alkaline Phosphatase 97 40-136 U/L Total Protein 6.6 6.4-8.2 GM/DL Albumin 2.9 L 3.2-4.5 GM/DL Lipase 74 8-78 U/L Lactic Acid Level 0.81 0.50-2.00 MMOL/L My Orders Orders - ROVENSTANNIE MURCIA DO Ed Iv/Invasive Line Start (01/09/21 20:40) Cbc With Automated Diff (01/09/21 20:40) Comprehensive Metabolic Panel (01/09/21 20:40) Lipase (01/09/21 20:40) Lactic Acid Analyzer (01/09/21 20:40) Urinalysis (01/09/21 20:40) Ns Iv 1000 Ml (Sodium Chloride 0.9%) (01/09/21 20:45) Manual Differential (01/09/21 20:46) Ns Iv 1000 Ml (Sodium Chloride 0.9%) (01/09/21 20:53) Chest 1 View Ap/Pa Only (01/09/21 21:29) Ekg Tracing (01/09/21 21:57) Calcium Chloride 10% Injection (Calcium (01/09/21 22:30) Insulin (Regular) Human (Novolin R (Per (01/09/21 22:30) D50w (Emergency) Syringe (Dextrose 50% 5 (01/09/21 22:30) Ns Iv 1000 Ml (Sodium Chloride 0.9%) (01/09/21 22:30) Norepinephrine 4 Mg/250 Ml (Norepinephri (01/09/21 22:45) Medications Given in ED Current Medications Medications Dose Ordered Sig/Foster Route Start Time Stop Time Status Last Admin Dose Admin Calcium Chloride 1 gm ONCE ONCE INJ 01/09/21 22:30 01/09/21 22:31 DC 01/09/21 22:34 1 GM Dextrose 50 ml ONCE ONCE IV 01/09/21 22:30 01/09/21 22:31 DC 01/09/21 22:32 50 ML Insulin Human Regular 10 unit ONCE ONCE SC 01/09/21 22:30 01/09/21 22:31 DC 01/09/21 22:32 10 UNIT Sodium Chloride 1,000 ml @ 250 mls/hr Q4H ONCE IV 01/09/21 22:30 01/10/21 02:29 01/09/21 22:33 250 MLS/HR Vital Signs/I&O 01/09/21 20:28 Temp 36.2 Pulse 77 Resp 16 B/P (MAP) 85/53 (64) Pulse Ox 100 O2 Delivery Room Air Capillary Refill : ECG Initial ECG Impression Time: 22:00 Initial ECG Rate: 76 Initial ECG Rhythm: Normal Sinus Initial ECG Intervals: Normal Initial ECG Comparisson: No Previous ECG Available Comment Non specific IV conduct delay. NO ectopy or ST changes. Normal T waves, low voltage Critical Care Note Critical Care Start Time: 22:00 Stop Time: 23:00 Total Time (minutes) 60 Progress Patient presented via EMS with complaint of back pain. States she has had back pain for at least a week and has been on pain medications, taking hydrocodone but not getting any better. On arrival patient in mild pain, no distress vital signs normal with the exception of a low blood pressure 80s over 50s and heart rate in the 70s. Physical exam unremarkable with bilateral CVA tenderness. Initial labs delayed due to repeat chemistry because of elevated potassium and suspected hemolyzed, however repeat potassium also elevated and patient with significant abnormalities of BUN/creatinine and other chemistries. An EKG was done with no significant heart block, normal sinus rhythm and nonspecific interventricular conduction delay. Treatment for hyperkalemia initiated with calcium chloride then insulin 10 units IV and D50. Initiated transfer/admission to [facility]. Patient's blood pressure continued to be soft and not improved with normal saline boluses, so started on Levophed drip at 4 mcg prior to EMS departure. Departure Impression Primary Impression: Acute renal failure Qualified Codes: N17.9 - Acute kidney failure, unspecified Additional Impressions: Dehydration Hyperkalemia Disposition: 02 XFER SHT-TRM HOSP ([facility]) Condition: Stable Transfer Transfer Reason: Exceeds level of care Time Spoke to Accepting Phy: 22:40 Transfer Progress Notes Patient needed ICU care and possibly dialysis. Called [place] and no beds available. [facility] with waiting list and minimal beds. Called [facility] and accepted to [facility]. Dr Akin May accepting @ [phone] Departure-Patient Inst. Referrals: [facility] (PCP) Primary Care Physician KARTIK HEREDIA APRN (Family) Primary Care Physician ANNIE GONZALEZ DO Jan 09, 2021 20:44
[2021-01-09] MEDS ORDERED: NS IV 1000 ML 1,000 ML IV SCH (20:45)
[2021-01-09] MEDS ORDERED: NS IV 1000 ML 1,000 ML ONE (20:53)
[2021-01-09 20:54] LABS: BASOPHILS % (AUTO) 0 % (0-10); EOSINOPHILS % (AUTO) 0 % (0-10); HEMATOCRIT 36 % (35-52); HEMOGLOBIN 11.9 G/DL (11.5-16.0); LYMPHOCYTES # (AUTO) 0.6 X 10^3 (1.0-4.0); LYMPHOCYTES % (AUTO) 3 % (12-44); MEAN CORPUSCULAR HEMOGLOBIN 27 PG (25-34); MEAN CORPUSCULAR HGB CONC 33 G/DL (32-36); MEAN CORPUSCULAR VOLUME 82 FL (80-99); MEAN PLATELET VOLUME 9.7 FL (7.4-10.4); MONOCYTES % (AUTO) 5 % (0-12); NEUTROPHILS # (AUTO) 16.7 X 10^3 (1.8-7.8); NEUTROPHILS % (AUTO) 91 % (42-75); PLATELET COUNT 273 10^3/uL (130-400); WHITE BLOOD COUNT 18.3 10^3/uL (4.3-11.0)
[2021-01-09 20:55] LABS: MONOCYTES # (AUTO) 0.9 X 10^3 (0.0-1.0)
[2021-01-09 22:05] LABS: POTASSIUM 7.3 MMOL/L (3.6-5.0)
[2021-01-09 22:06] LABS: CREATININE SERUM 6.13 MG/DL (0.60-1.30)
[2021-01-09 22:07] LABS: ALBUMIN 2.9 GM/DL (3.2-4.5); BILIRUBIN,TOTAL 0.2 MG/DL (0.1-1.0); CALCIUM 7.7 MG/DL (8.5-10.1); TOTAL PROTEIN 6.6 GM/DL (6.4-8.2)
[2021-01-09 22:17] LABS: LYMPHOCYTES % (MANUAL) 3 %; NEUTROPHILS % (MANUAL) 97 %
--- NOTE | 2021-01-09 22:22 | Diagnostic Imaging Report ---
Clinical indication: Patient with weakness. Exam: Portable chest x-ray upright view. Comparisons: None. Findings: Lungs/pleura: Slight low lung volumes seen with minimal bibasilar atelectasis. Otherwise, lungs are clear. There is no pneumothorax. There is no pleural effusion. Mediastinum: Unremarkable. Pulmonary vasculature: Unremarkable. Heart: Unremarkable. Bones/extrathoracic soft tissue: There are degenerative spurs involving the thoracic spine. Impression: There is no radiographic evidence of acute cardiopulmonary process. Dictated by: Dictated on workstation # [id number]
[2021-01-09] MEDS ORDERED: CALCIUM CHLORIDE 1 GM/10 ML (IMS) SYR INJ ONE (22:30)
[2021-01-09] MEDS ORDERED: inSUlin (REGULAR) HUMAN 1 UNIT/0.01 ML (CHARGE PER UNIT) SC ONE (22:30)
[2021-01-09] MEDS ORDERED: DEXTROSE 50% 50 ML (IMS) SYR IV ONE (22:30)
[2021-01-09] MEDS ORDERED: NS IV 1000 ML 1,000 ML IV ONE (22:30)
[2021-01-09] MEDS ORDERED: NOREPINEPHRINE 4 MG/250 ML 250 ML IV SCH (22:45)
[2021-01-09 23:03] VITALS: BP 87/47
== END 2021-01-09 23:36 | disposition short-term general hospital (02) ==
LOC: EDUNIT# 20:20 → ER FS 20:31
DX: N19 Unspecified kidney failure (principal); E86.0 Dehydration; E87.5 Hyperkalemia; I25.2 Old myocardial infarction; F41.9 Anxiety disorder, unspecified; I10 Essential (primary) hypertension; Z82.49 Family history of ischemic heart disease and other diseases of the circulatory system; Z95.5 Presence of coronary angioplasty implant and graft; Z79.82 Long term (current) use of aspirin
CPT/HCPCS: 36415; 71045; 80053; 83605; 83690; 85007; 85027

== ENCOUNTER 2021-02-17 08:13 | Inpatient (IN) | payer OTHER ==
[~2021-02-17] VITALS: Ht 160 cm; Wt 60.3 kg
[~2021-02-17 08:13] MED LIST changes: +ALPR0.25 PO; +CARV3.12 PO; +CLOP75TA69 PO; +CYCL10TA9 PO; +ONDA4TAB11 PO
[2021-02-17] MEDS ORDERED: DOCUSATE SODIUM 100 MG (COLACE) CAP PO PRN (08:45)
[2021-02-17] MEDS ORDERED: guaiFENesin/CODEINE (ROBITUSSIN AC) 10ML UDC PO PRN (08:45)
[2021-02-17] MEDS ORDERED: diphenhydrAMINE 25 MG TAB (BENADRYL) PO PRN (08:45)
[2021-02-17] MEDS ORDERED: BISACODYL 10 MG SUPP (DULCOLAX) PR PRN (08:45)
[2021-02-17] MEDS ORDERED: LOPERAMIDE 2 MG (IMODIUM) TABLET PO PRN (08:45)
[2021-02-17] MEDS ORDERED: FLEET ENEMA ADULT 1 EA BTL PR PRN (08:45)
[2021-02-17] MEDS ORDERED: CALCIUM CARBONATE 500 MG (TUMS) TAB.CHEW PO PRN (08:45)
[2021-02-17] MEDS ORDERED: ALPRAZolam 0.25 MG (XANAX) TAB PO PRN (08:45)
[2021-02-17] MEDS ORDERED: ONDANSETRON 4 MG (ZOFRAN) ORAL DISSOLVE TAB PO PRN (08:45)
[2021-02-17] MEDS ORDERED: LACTULOSE SYRUP 10GM/15ML (ENULOSE) 30ML UDC PO PRN (08:45)
[2021-02-17] MEDS ORDERED: ACETAMINOPHEN 500 MG TAB (TYLENOL) PO PRN (08:45)
[2021-02-17] MEDS ORDERED: CARVEDILOL 3.125 MG (COREG) TABLET PO SCH ×2 (09:00→21:00)
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
--- NOTE | 2021-02-17 09:28 | PM&R Post Admission Assessment ---
PM&R HP Date of Visit: Feb 17, 2021 Time of Visit: 11:00 History of Present Illness CC: Debility HPI: This is a 55yoWF with a PMH of multiple abdominal surgeries who was in reha b a couple of times before who presents from [facility] after one night spent at [facility] until admission was arranged. She was admitted to [facility] from [facility] on 02/07 and underwent emergency exploratory laparotomy revealing an area of obstruction from adhesions that was managed and it took several days for her to stabilize due to acute renal failure and hyperkalemia but ultimately she returns now for intense recovery and therapy in order to return back to an independent-living state. Checked meds and labs and I did review [facility] notes. Tachycardia noted and will give IVF. Labs reviewed. Past Rfzctoi-Fqgfmd-Vbdjqj Hx Past Med/Social Hx: Reviewed Nursing Past Med/Soc Hx, Reviewed and Corrections made Patient Social History Marrital Status: single Employed/Student: unemployed Alcohol Use: Denies Use Smoking Status: Never a Smoker 2nd Hand Smoke Exposure: No Recent Hopitalizations: Yes Immunizations Up To Date Tetanus Booster (TDap): Unknown Seasonal Allergies Seasonal Allergies: Yes Past Medical History Surgeries: Abdominal, Cardiac, Coronary Stent Respiratory: Pneumonia Currently Using CPAP: No Currently Using BIPAP: No Cardiac: Heart Attack, High Cholesterol, Hypertension Sexually Transmitted Disease: No HIV/AIDS: No Gastrointestinal: Obstructive Bowel, Chronic Constipation Psychosocial: Sleep Difficulties, Anxiety, Depression History of Blood Disorders: No Adverse Reaction to Blood Mcgrath: No (HAD TRANSFUSION WITHOUT PROBLEMS) Family History Cardiovascular disease 19 FATHER Hypertension 19 MOTHER No Pertinent Family Hx, Hypertension, Other Conditions/Hx Prior Level of Function Bed Mobility: 6 Transfers: 6 Gait: 6 Stairs: 9 Indoor Mobility (Ambulation): Independent Stairs: Not Applicalbe Prior Devices Use: None 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 Level of Fuctioning Roll Left to Right: 4 Sit to Lyin Lying to Sitting/Side of Bed: 4 Sit to Stand: 4 Chair/Fhy-cg-Cifzp Xfer: 4 Car Transfer: 4 Does the Patient Walk: Yes Mode of Locomotion: Walk Anticipated Mode of Locomotion: Walk Walk 10 feet: 4 Walk 50 ft with 2 Turns: 4 Walk 150 ft: 4 Walking 10ft on uneven surface: 4 Gait Assistive Device: FWW Does the Pt Use a Wheelchair: No Wheel 50 ft with 2 turns: 9 Wheel 150 ft: 9 Type of Wheelchair: N/A #of Steps: 12 1 Step (curb): 4 4 Steps: 4 12 Steps: 4 Picking up an Object: 4 PM&R Allergy/Meds/Data Review Allergies Coded Allergies: No Known Drug Allergies (Unverified , 11/11/19) Home Medications Scheduled Aspirin (Aspirin EC), 81 MG PO DAILY, (Reported) Carvedilol (Coreg), 3.125 MG PO BID, (Reported) Clopidogrel Bisulfate (Plavix), 75 MG PO DAILY, (Reported) Pantoprazole Sodium (Pantoprazole Sodium), 40 MG PO DAILY, (Reported) Scheduled PRN Alprazolam (Xanax), 0.25 MG PO Q8H PRN for ANXIETY, (Reported) Cyclobenzaprine HCl (Cyclobenzaprine HCl), 10 MG PO HS PRN for MUSCLE SPASMS, (Reported) Hydrocodone/Acetaminophen (Hydrocodone-Acetamin 5-325 mg), 1 TAB PO Q12H PRN for PAIN-MODERATE (5-7), (Reported) Ondansetron (Ondansetron Odt), 4 MG PO Q8H PRN for NAUSEA/VOMITING-1ST LINE, (Reported) Discontinued Medications ALPRAZolam (Xanax Tablet), 0.25 MG PO Q8H PRN for ANXIETY Discontinued Reason: Duplicate Order Amlodipine Besylate (Amlodipine Besylate), 5 MG PO DAILY Discontinued Reason: Duplicate Order Aspirin (Aspirin), 81 MG PO DAILY Discontinued Reason: Duplicate Order Clopidogrel Bisulfate (Clopidogrel), 75 MG PO DAILY Discontinued Reason: Duplicate Order Hydrocodone/Acetaminophen (Hydrocodone-Acetamin 5-325 mg), 1 TAB PO Q4H PRN for PAIN-MODERATE (5-7) Discontinued Reason: Duplicate Order Lisinopril (Lisinopril), 20 MG PO BID, (Reported) Discontinued Reason: Duplicate Order Metoprolol Succinate (Metoprolol Succinate), 100 MG PO DAILY Discontinued Reason: Duplicate Order Oxycodone HCl (Oxycodone HCl), 5 MG PO Q4H PRN for PAIN-MODERATE (5-7), (Reported) Discontinued Reason: Duplicate Order Current Medications Current Medications Reviewed Review of Systems Constitutional: see HPI, malaise, weakness EENTM: no symptoms reported Respiratory: no symptoms reported Cardiovascular: no symptoms reported Gastrointestinal: no symptoms reported Genitourinary: no symptoms reported Musculoskeletal: back pain, joint pain Skin: no symptoms reported Psychiatric/Neurological: Anxiety, Depressed All Other Systems Reviewed Negative Unless Noted: Yes Physical Exam Physical Exam Vital Signs Capillary Refill : Height, Weight, BMI Height: '" Weight: lbs. oz. kg; 29.10 BMI Method: General Appearance: No Apparent Distress, WD/WN, Anxious, Chronically ill Eyes: Bilateral Eye Normal Inspection, Bilateral Eye PERRL HEENT: PERRL/EOMI, Normal ENT Inspection, Pharynx Normal Neck: Full Range of Motion, Normal Inspection, Non Tender, Supple, Carotid Bruit Respiratory: Chest Non Tender, Lungs Clear, Normal Breath Sounds, No Accessory Muscle Use, No Respiratory Distress Cardiovascular: Regular Rate, Rhythm, No Edema, No Gallop, No JVD, No Murmur, Normal Peripheral Pulses, Tachycardia Gastrointestinal: Normal Bowel Sounds, No Organomegaly, No Pulsatile Mass, Non Tender, Soft Back: Normal Inspection, No CVA Tenderness, No Vertebral Tenderness Extremity: Normal Capillary Refill, Normal Inspection, Normal Range of Motion, Non Tender, No Calf Tenderness, No Pedal Edema Neurologic/Psychiatric: Alert, Oriented x3, Normal Mood/Affect, Abnormal Gait, Motor Weakness (generalized all extremities) Skin: Normal Color, Warm/Dry Lymphatic: No Adenopathy PM&R Medical Assessment & Plan REHAB/MEDICAL ASSESSMENT AND PLAN: REHAB IMPAIRMENT GROUP: Myopathy ETIOLOGIC DIAGNOSIS: Myopathy The comorbidities that impact the patients function and/or functional outcome by: poor social situation, chronic intestinal obstructions, tachycardia, poor reserve REHAB PLAN: The patient is being admitted to our comprehensive inpatient rehabilitation facility and can tolerate the intensity of service consisting of at least: 180 minutes of therapy a day, 5 out of 7 days a week Rehab treatment will consist of: PT OT will focus on regaining function with use of AD and increase independent ADL's in order to return to independent living The patient/family has a good understanding of our discharge process and will benefit from an interdisciplinary inpatient rehabilitation program. The patient has potential to make improvement and is in need of at least two of the following multidisciplinary therapies including but not limited to physical, occupational, speech, and prosthetics and orthotics. Additionally the patient will need services from respiratory, nutritional services, wound care, psychology, etc. (Customize this to each patient). Given the patients complex condition and risk of further medical complications, rehabilitation services cannot be safely or effectively provided at a lower level of care such as a care home facility. BARRIERS TO DISCHARGE: Poor reserve and poor social situation ESTIMATED LOS: 7 days DISPOSITION: Home RELEVANT CHANGES SINCE PREADMISSION SCREENING: I have compared the patients medical and functional status at the time of the preadmission screening and there are: no changes PROGNOSIS: Good REHABILITATION GOALS: 1. PT OT will focus on regaining function with use of AD and increase independent ADL's in order to return to independent living All the above goals were reviewed with the patient and he/she is in agreement. By signing this document, I acknowledge that I have personally performed a full physical examination on this patient within 24 hours of admission to this inpatient rehabilitation facility and have determined the patient to be able to tolerate the above course of treatment at an intensive level for a reasonable period of time. I will be completing a detailed individualized Plan of Care for this patient by day #4 of the patients stay based upon the Preadmission Screen, the Post-Admission Evaluation, and the therapy evaluations. Admission Dx/Comorbidities: (1) Myopathy ICD Codes: G72.9 - Myopathy, unspecified (2) Bowel obstruction Status: Acute ICD Codes: K56.609 - Unspecified intestinal obstruction, unspecified as to partial versus complete obstruction (3) Tachycardia ICD Codes: R00.0 - Tachycardia, unspecified (4) Anemia ICD Codes: D64.9 - Anemia, unspecified (5) Hirsutism ICD Codes: L68.0 - Hirsutism (6) Hyperlipidemia Status: Chronic ICD Codes: E78.5 - Hyperlipidemia, unspecified (7) Abdominal pain Status: Acute ICD Codes: R10.9 - Unspecified abdominal pain (8) Debility ICD Codes: R53.81 - Other malaise (9) Hypertension Status: Chronic ICD Codes: I10 - Essential (primary) hypertension (10) Dehydration Status: Acute ICD Codes: E86.0 - Dehydration Assessment/Plan Assessment and Plan Assess & Plan/Chief Complaint Assessment: Debility/Myopathy s/p EMIGDIO 02/07/21 Current tachycardia placed on IVF s/p critical illness and VDRF in March 2020 and 02/07/21 requiring [facility] admit Iliostomy s/p takedown with wound dehiscence and s/p revision 06/2020 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
[2021-02-17] MEDS: DOCUSATE SODIUM 100 MG (COLACE) CAP PO SCH ×2 (10:32→20:35)
[2021-02-17] MEDS: polyethylene glycoL POWDER 17 GM (MIRALAX) PACK PO SCH ×2 (10:32→20:35)
[2021-02-17] MEDS: SENNA W/DOCUSATE (SENOKOT S) TABLET PO SCH ×2 (10:33→20:35)
[2021-02-17] MEDS: CYCLOBENZAPRINE 10 MG (FLEXERIL) TAB PO SCH (10:34)
[2021-02-17] MEDS: PANTOPRAZOLE 40 MG (PROTONIX) TAB PO SCH (10:34)
[2021-02-17] MEDS: CLOPIDOGREL 75 MG (PLAVIX) TABLET PO SCH (10:34)
[2021-02-17] MEDS: ASPIRIN E.C. 81 MG (ECOTRIN) TAB PO SCH (10:34)
[2021-02-17 10:49] LABS: BASOPHILS % (AUTO) 0 % (0-10); EOSINOPHILS # (AUTO) 0.1 10^3/uL (0.0-0.3); EOSINOPHILS % (AUTO) 1 % (0-10); HEMATOCRIT 32 % (35-52); HEMOGLOBIN 10.4 g/dL (11.5-16.0); LYMPHOCYTES # (AUTO) 0.9 10^3/uL (1.0-4.0); LYMPHOCYTES % (AUTO) 8 % (12-44); MEAN CORPUSCULAR HEMOGLOBIN 28 pg (25-34); MEAN CORPUSCULAR HGB CONC 33 g/dL (32-36); MEAN CORPUSCULAR VOLUME 86 fL (80-99); MEAN PLATELET VOLUME 8.9 fL (9.0-12.2); MONOCYTES # (AUTO) 0.9 10^3/uL (0.0-1.0); MONOCYTES % (AUTO) 8 % (0-12); NEUTROPHILS # (AUTO) 9.7 10^3/uL (1.8-7.8); NEUTROPHILS % (AUTO) 82 % (42-75); PLATELET COUNT 538 10^3/uL (130-400); WHITE BLOOD COUNT 11.9 10^3/uL (4.3-11.0)
[2021-02-17 10:57] LABS: ALBUMIN 3.7 GM/DL (3.2-4.5); POTASSIUM 4.1 MMOL/L (3.6-5.0)
[2021-02-17 10:58] LABS: CALCIUM 9.3 MG/DL (8.5-10.1)
[2021-02-17 10:59] LABS: TOTAL PROTEIN 7.9 GM/DL (6.4-8.2)
[2021-02-17 11:01] LABS: BILIRUBIN,TOTAL 0.4 MG/DL (0.1-1.0)
[2021-02-17 11:03] LABS: CREATININE SERUM 1.48 MG/DL (0.60-1.30)
[2021-02-17 11:09] VITALS: BP 126/83
[2021-02-17 11:16] LABS: LYMPHOCYTES % (MANUAL) 9 %; MONOCYTES % (MANUAL) 6 %; NEUTROPHILS % (MANUAL) 85 %
[2021-02-17 11:17] LABS: RBC MORPH NORMAL
--- NOTE | 2021-02-17 12:35 | ST Cognitive Linguistic Eval ---
Speech Evaluation-General Medical Diagnosis chronic SBO, s/p ex lap with resection end ileostomy Onset Date: Feb 04, 2021 Therapy Diagnosis Therapy Diagnosis: Cognitive-communication Referral Referring Physician: Dr. Hackett Medical History Pertinent Medical History: CAD, Heart Failure, HTN, [place] Reviewed History: Yes Social History Current Living Status: Alone Speech PLF-Current Status Prior Level of Function Patient lives alone where she is independent for her daily needs. She does have a great support system of friends that assist her as needed. Subjective Patient was pleasant and cooperative with the cognitive assessment. Language Eval: Auditory Comprehends Simple Yes/No Ques: Functional Indent/Objects Multiple Campbell: Functional Ident/Pics in Multiple Campbell: Functional Follows 1-Step Commands: Functional Follows Complex Directions: Functional Follows General Conversations: Functional Language Eval: Verbal Language Completes Spontaneous Greeting: Functional Produces Auto, Serial Info: Functional Imitates Simple Words/Phrases: Functional Word Finding: Functional Requests Basic Needs: Functional States Basic Personal Info: Functional Expresses Complex Ideas: Functional Objective Cognitive Domain Attention: WNL Memory: WNL Problem Solving: Functional Executive Functions: WNL Visuospatial Skills: WNL Composite Severity Rating: WNL Clock Drawing Severity Rating: WNL Objective Formal/Standardized Tests [facility] Mental Status ([facility]) Results 28/30, within normal range of function Oral Motor/Speech Production Within Normal Limits Impression Patient is a pleasant 55 y/o female who was admitted to the ARU due to chronic illness. Patient has been an ARU patient previously. Patient was given the SLUMS with a score of 28/30 obtained. This score is within the normal range of function. Patient exhibits appropriate cognitive function, speech production and swallowing function. No further ST services are warranted at this time. Speech Patient Assess Expression of Ideas/Wants: Expression (4) Understanding Verbal Content: Understands (4) Brief Interview-Mental Status: Yes Repetition of Three Words: Three (3) Temporal Orientation: Year: Correct (3) Temporal Orientation: Month: Accurate within 5 days(2) Temporal Orientation: Day: Correct (1) Recall : Wear to say "Sock": Yes, no cue required (2) Recall : Color: Yes, after cueing (1) Recall : Bed: Yes,after cueing (1) Memory/Recall Ability: Current season, Location of own room, Staff names and faces, That he or she is in a hsp/hsp unit Speech-Plan Patient/Family Goals Patient/Family Goals: Patient plans on discharging to her own home. She is currently applying for an apartment to move to. Treatment Plan Speech Therapy Treatment Plan: Discontinue ST Treatment Duration: Feb 17, 2021 Frequency: 1 time per week Estimated Hrs Per Day: .5 hour per day Rehab Potential: Good Barriers to Learning: None identified Pt/Family Agrees to Plan: Yes Safety Risks/Education Teaching Recipient: Patient Teaching Methods: Discussion Response to Teaching: Verbalize Understanding Education Topics Provided: Safety within her room and communication of wants/needs Time Speech Therapy Time In: 10:00 Speech Therapy Time Out: 10:30 Total Billed Time: 30 Billed Treatment Time 1, SPSTABITHA Espinal Feb 17, 2021 12:35
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
[2021-02-17] MEDS ORDERED: NS IV 1000 ML 1,000 ML IV SCH (13:00)
[2021-02-17] MEDS: ENOXAPARIN 40 MG/0.4 ML (LOVENOX) SYR SC SCH (13:31)
--- NOTE | 2021-02-17 13:55 | Consultation-Cardiology ---
HPI-Cardiology Cardiology Consultation: Date of Consultation 02/17/21 Date of Admission Attending Physician Anali Hackett DO Admitting Physician [place] Consulting Physician BENJI ARDON BXU-Nnkxtj-Kbumog Hx Patient Social History Smoking Status: Never a Smoker 2nd Hand Smoke Exposure: No Have you traveled recently?: No Alcohol Use?: No Pt feels they are or have been: No Immunizations Up To Date Tetanus Booster (TDap): Unknown Date of Influenza Vaccine: Aug 20, 2020 Past Medical History PMH As described under Assessment. Family Medical History Family Medical History: No fam h/o early CAD reported or found in records Family History: Cardiovascular disease 19 FATHER Hypertension 19 MOTHER Allergies and Home Medications Allergies Coded Allergies: No Known Drug Allergies (Unverified , 11/11/19) Home Medications Alprazolam 0.25 Mg Tablet, 0.25 MG PO Q8H PRN for ANXIETY, (Reported) Aspirin 81 Mg Tablet.dr, 81 MG PO DAILY, (Reported) Carvedilol 3.125 Mg Tablet, 3.125 MG PO BID, (Reported) Clopidogrel Bisulfate 75 Mg Tablet, 75 MG PO DAILY, (Reported) Cyclobenzaprine HCl 10 Mg Tablet, 10 MG PO HS PRN for MUSCLE SPASMS, (Reported) Hydrocodone/Acetaminophen 1 Each Tablet, 1 TAB PO Q12H PRN for PAIN-MODERATE (5- 7), (Reported) Ondansetron 4 Mg Tab.rapdis, 4 MG PO Q8H PRN for NAUSEA/VOMITING-1ST LINE, (Reported) Pantoprazole Sodium 40 Mg Tablet.dr, 40 MG PO DAILY, (Reported) Physical Exam-Cardiology Physical Exam Vital Signs/I&O 02/18/21 02/18/21 06:15 08:08 Temp 36.1 Pulse 83 Resp 18 B/P (MAP) 121/80 (94) Pulse Ox 100 100 O2 Delivery Room Air 02/18/21 00:00 Intake Total 3320 ml Output Total 700 ml Balance 2620 ml Capillary Refill : Data Review Labs Laboratory Tests 02/18/21 05:30: White Blood Count 7.5, Red Blood Count 2.93L, Hemoglobin 8.2#L, Hematocrit 25L, Mean Corpuscular Volume 86, Mean Corpuscular Hemoglobin 28, Mean Corpuscular Hemoglobin Concent 33, Red Cell Distribution Width 14.0, Platelet Count 382, Mean Platelet Volume 8.7L, Immature Granulocyte % (Auto) 2, Neutrophils (%) (Auto) 74, Lymphocytes (%) (Auto) 12, Monocytes (%) (Auto) 10, Eosinophils (%) (Auto) 2, Basophils (%) (Auto) 0, Neutrophils # (Auto) 5.5, Lymphocytes # (Auto) 0.9L, Monocytes # (Auto) 0.7, Eosinophils # (Auto) 0.2, Basophils # (Auto) 0.0, Immature Granulocyte # (Auto) 0.2H, Sodium Level 135, Potassium Level 3.8, Chloride Level 106, Carbon Dioxide Level 19L, Anion Gap 10, Blood Urea Nitrogen 36H, Creatinine 1.16, Estimat Glomerular Filtration Rate 49, BUN/Creatinine Ratio 31, Glucose Level 101, Calcium Level 8.1L, Corrected Calcium 9.0, Total Bilirubin 0.3, Aspartate Amino Transf (AST/SGOT) 28, Alanine Aminotransferase (ALT/SGPT) 52, Alkaline Phosphatase 237H, Total Protein 6.0L, Albumin 2.9L A/P-Cardiology Assessment/Admission Diagnosis Uncontrolled HTN, now better controlled CAD, h/o cor stenting at [facility] in Oct 2019 (to treat angina, not to treat [place], according to the patient). Last card cath on 03/05/20: patent stents in the mid left circumflex and the mid right coronary arteries. There is moderate diffuse disease of all coronary arteries. There is moderately severe diffuse disease of the distal left anterior descending. A small caliber obtuse marginal has 70% to 80% ostial stenosis. Normal left ventricular end-diastolic pressure. Echo of 03/05/20: LVEF 60-65%, mild to mod TR, RVSP 35-40 mmHg, mild dilatation of LA S/p colectomy and ileostomy for intestinal obstruction - subsequent ileostomy reversal in May 2020 BENJI WILLOUGHBY Feb 17, 2021 13:55
[2021-02-17] MEDS: NS IV 1000 ML 1,000 ML IV SCH (16:03)
[2021-02-17 18:16] VITALS: BP 109/74
--- NOTE | 2021-02-17 18:27 | Consultation-Cardiology ---
HPI-Cardiology Cardiology Consultation: Date of Consultation 02/17/21 Time Seen by a Provider: 18:10 Date of Admission Attending Physician Anali Hackett DO Admitting Physician [place] Consulting Physician VI KO MD, MA, FACP, FACC, [facility], [facility] Physician requesting consult: Dr Hackett HPI: Chief Complaint: Reason for cardiology consult: Sinus tach HPI 55 yo woman who has undergone exp lap and small bowel resection and ileostomy placement earlier this month and has been admitted by Dr Hackett for rehab. Her heart rate has been high. She notes gen malaise and weakness. She denies cp or palp or syncope or shortness of breath. She denies n/v of abd pain Review of Systems-Cardiology Review of Systems Constitutional: malaise, tiredness; No weight gain Eyes: No vision change Ears/Nose/Throat: No ear discharge, No nasal drainage, No recent hearing loss Respiratory: As described under HPI Cardiovascular: As described under HPI Gastrointestinal: As described under HPI Genitourinary: No dysuria, No hematuria, No urine frequency changes Musculoskeletal: No back pain, No joint pain Skin: No rash, No ulcerations Psychiatric/Neurological: No seizure, No focal weakness CSX-Mhzhtm-Wmkgzy Hx Patient Social History Smoking Status: Never a Smoker 2nd Hand Smoke Exposure: No Have you traveled recently?: No Alcohol Use?: No Pt feels they are or have been: No Immunizations Up To Date Tetanus Booster (TDap): Unknown Date of Influenza Vaccine: Aug 20, 2020 Past Medical History PMH As described under Assessment. Family Medical History Family Medical History: No fam h/o early CAD reported or found in records Family History: Cardiovascular disease 19 FATHER Hypertension 19 MOTHER Allergies and Home Medications Allergies Coded Allergies: No Known Drug Allergies (Unverified , 11/11/19) Home Medications Alprazolam 0.25 Mg Tablet, 0.25 MG PO Q8H PRN for ANXIETY, (Reported) Aspirin 81 Mg Tablet.dr, 81 MG PO DAILY, (Reported) Carvedilol 3.125 Mg Tablet, 3.125 MG PO BID, (Reported) Clopidogrel Bisulfate 75 Mg Tablet, 75 MG PO DAILY, (Reported) Cyclobenzaprine HCl 10 Mg Tablet, 10 MG PO HS PRN for MUSCLE SPASMS, (Reported) Hydrocodone/Acetaminophen 1 Each Tablet, 1 TAB PO Q12H PRN for PAIN-MODERATE (5- 7), (Reported) Ondansetron 4 Mg Tab.rapdis, 4 MG PO Q8H PRN for NAUSEA/VOMITING-1ST LINE, (Reported) Pantoprazole Sodium 40 Mg Tablet.dr, 40 MG PO DAILY, (Reported) Patient Home Medication List Home Medication List Reviewed: Yes Physical Exam-Cardiology Physical Exam Vital Signs/I&O 02/17/21 02/17/21 02/17/21 11:09 11:11 18:16 Temp 36.3 36.4 Pulse 116 91 Resp 14 16 B/P (MAP) 126/83 (97) 109/74 (86) Pulse Ox 100 100 100 O2 Delivery Room Air Room Air Room Air Capillary Refill : Constitutional: AAO x 3, well-developed, well-nourished HEENT: EOMI, hearing is well preserved; No xanthelasmas are seen Neck: carotid pulses are 2 + bilaterally, with good upstrokes Respiratory: No accessory muscle use; other (fair to good, bilateral air entry) Cardiovascular: regular rate-rhythm, S1 and S2, systolic murmur (soft AURA at card basee) Gastrointestinal: No tender; soft; No guarding, No rebound; audible bowel sounds, other (ostomy in the RLQ) Extremities: No clubbing, No cyanosis, No significant edema Neurologic/Psychiatric: oriented x 3, other (moves all limbs equally) Skin: normal color, warm/dry; No cool, No diaphoresis, No rash on exposed areas, No ulcerations on exposed areas Data Review Labs Laboratory Tests 02/17/21 10:40: White Blood Count 11.9H, Red Blood Count 3.69L, Hemoglobin 10.4L, Hematocrit 32L , Mean Corpuscular Volume 86, Mean Corpuscular Hemoglobin 28, Mean Corpuscular Hemoglobin Concent 33, Red Cell Distribution Width 14.0, Platelet Count 538H, Mean Platelet Volume 8.9L, Immature Granulocyte % (Auto) 2, Neutrophils (%) ( Auto) 82H, Lymphocytes (%) (Auto) 8L, Monocytes (%) (Auto) 8, Eosinophils (%) (Auto) 1, Basophils (%) (Auto) 0, Neutrophils # (Auto) 9.7H, Lymphocytes # (Auto) 0.9L, Monocytes # (Auto) 0.9, Eosinophils # (Auto) 0.1, Basophils # (Auto) 0.0, Immature Granulocyte # (Auto) 0.2H, Neutrophils % (Manual) 85, Lym phocytes % (Manual) 9, Monocytes % (Manual) 6, Blood Morphology Comment NORMAL, Sodium Level 134L, Potassium Level 4.1, Chloride Level 98, Carbon Dioxide Level 21, Anion Gap 15H, Blood Urea Nitrogen 39H, Creatinine 1.48H, Estimat Glomerular Filtration Rate 37, BUN/Creatinine Ratio 26, Glucose Level 128H, Calcium Level 9.3, Corrected Calcium 9.5, Total Bilirubin 0.4, Aspartate Amino Transf ( T/SGOT) 31, Alanine Aminotransferase (ALT/SGPT) 74H, Alkaline Phosphatase 342H, Total Protein 7.9, Albumin 3.7, Thyroid Stimulating Hormone (TSH) 2.67 Laboratory Tests 02/17/21 10:40 A/P-Cardiology Assessment/Admission Diagnosis Sinus tach and renal insuff, likely due to volume deptletion CAD, h/o cor stenting at [facility] in Oct 2019 (to treat angina, not to treat VT, according to the patient). Last card cath on 03/05/20: patent stents in the mid left circumflex and the mid right coronary arteries. There is moderate diffuse disease of all coronary arteries. There is moderately severe diffuse disease of the distal left anterior descending. A small caliber obtuse marginal has 70% to 80% ostial stenosis. Normal left ventricular end-diastolic pressure. Echo of 03/05/20: LVEF 60-65%, mild to mod TR, RVSP 35-40 mmHg, mild dilatation of LA Abdominal surgeries - S/p colectomy and ileostomy for intestinal obstruction - subsequent ileostomy reversal in May 2020 - Exp lap and small bowel resection and ileostomy in January 2021 Discussion and Recomendations * iv fluids (Dr Hackett managing)) * Beta-nadeem if bp tolerates * Monitor labs VI KO MD [facility] Feb 17, 2021 18:27
[2021-02-17] MEDS: CARVEDILOL 6.25 MG (COREG) TAB PO SCH (20:41)
[2021-02-18] MEDS: NS IV 1000 ML 1,000 ML IV SCH (01:31)
[2021-02-18 05:48] LABS: BASOPHILS % (AUTO) 0 % (0-10); EOSINOPHILS # (AUTO) 0.2 10^3/uL (0.0-0.3); EOSINOPHILS % (AUTO) 2 % (0-10); HEMATOCRIT 25 % (35-52); HEMOGLOBIN 8.2 g/dL (11.5-16.0); LYMPHOCYTES # (AUTO) 0.9 10^3/uL (1.0-4.0); LYMPHOCYTES % (AUTO) 12 % (12-44); MEAN CORPUSCULAR HEMOGLOBIN 28 pg (25-34); MEAN CORPUSCULAR HGB CONC 33 g/dL (32-36); MEAN CORPUSCULAR VOLUME 86 fL (80-99); MEAN PLATELET VOLUME 8.7 fL (9.0-12.2); MONOCYTES # (AUTO) 0.7 10^3/uL (0.0-1.0); MONOCYTES % (AUTO) 10 % (0-12); NEUTROPHILS # (AUTO) 5.5 10^3/uL (1.8-7.8); NEUTROPHILS % (AUTO) 74 % (42-75); PLATELET COUNT 382 10^3/uL (130-400); WHITE BLOOD COUNT 7.5 10^3/uL (4.3-11.0)
[2021-02-18 06:08] LABS: ALBUMIN 2.9 GM/DL (3.2-4.5); POTASSIUM 3.8 MMOL/L (3.6-5.0)
[2021-02-18 06:09] LABS: CALCIUM 8.1 MG/DL (8.5-10.1)
[2021-02-18 06:12] LABS: BILIRUBIN,TOTAL 0.3 MG/DL (0.1-1.0)
[2021-02-18 06:14] LABS: CREATININE SERUM 1.16 MG/DL (0.60-1.30)
[2021-02-18 06:15] VITALS: BP 121/80
[2021-02-18] MEDS: DOCUSATE SODIUM 100 MG (COLACE) CAP PO SCH ×2 (07:58→20:00)
[2021-02-18] MEDS: SENNA W/DOCUSATE (SENOKOT S) TABLET PO SCH ×2 (07:58→20:00)
[2021-02-18] MEDS: polyethylene glycoL POWDER 17 GM (MIRALAX) PACK PO SCH ×2 (07:58→20:00)
[2021-02-18] MEDS: CLOPIDOGREL 75 MG (PLAVIX) TABLET PO SCH (07:59)
[2021-02-18] MEDS: CARVEDILOL 6.25 MG (COREG) TAB PO SCH ×2 (07:59→22:24)
[2021-02-18] MEDS: ASPIRIN E.C. 81 MG (ECOTRIN) TAB PO SCH (07:59)
[2021-02-18] MEDS: PANTOPRAZOLE 40 MG (PROTONIX) TAB PO SCH (07:59)
[2021-02-18] MEDS: CYCLOBENZAPRINE 10 MG (FLEXERIL) TAB PO SCH (07:59)
--- NOTE | 2021-02-18 10:12 | Occupational Ther Daily Note ---
OT Current Status-Daily Note Subjective Pt AxO, no pain. Pt agrees to tx, desires shower. Pt alert, no pain, agrees to ther ex. Denies bathroom needs. Mental Status/Objective Patient Orientation: Person, Place, Situation, Normal For Age ADL-Treatment Therapy Code Descriptions/Definitions Functional [place] Measure: 0=Not Assessed/NA 4=Minimal Assistance 1=Total Assistance 5=Supervision or Setup 2=Maximal Assistance 6=Modified [place] 3=Moderate Assistance 7=Complete IndependenceSCALE: Activities may be completed with or without assistive devices. 2-Lbcttyvnqo-zabdayv completes the activity by him/herself with no assistance from a helper. 5-Set-up or Clean-up Assistance-helper sets up or cleans up; patient completes activity. [place] assists only prior to or following the activity. 4-Supervision or Touching Assistance-helper provides verbal cues and/or touching/steadying and/or contact guard assistance as patient completes activity. Assistance may be provided throughout the activity or intermittently. 3-Partial/Moderate Assistance-helper does LESS THAN HALF the effort. [place] lifts, holds or supports trunk or limbs, but provides less than half the effort. 2-Substantial/Maximal Assistance-helper does MORE THAN HALF the effort. [place] lifts or holds trunk or limbs and provides more than half the effort. 9-Ultsqccsd-edrdvt does ALL the effort. Patient does none of the effort to complete the activity. Or, the assistance of 2 or more helpers is required for the patient to complete the activity. If activity was not attempted, code reason: 7-Patient Refused. 9-Not Applicable-not attempted and the patient did not perform the activity before the current illness, exacerbation or injury. 10-Not Attempted due to Environmental Limitations-(lack of equipment, weather restraints, etc.). 88-Not Attempted due to Medical Conditions or Safety Concerns. Eating (QC): 6 Oral Hygiene (QC): 5 (s/u chair in bathroom; pt able to comlete oral care in seated with IND.) Bathing Location: L Arm, R Arm, L Upper Leg, R Upper Leg, L Lower Leg (including foot), R Lower Leg (including foot), Chest, Abdomen, Buttocks, Perineal Area Shower/Bathe Self (QC): 4 (SBA in stance, SUP in sit. s/u for wound coverage.) Upper Body Dressing (QC): 5 (s/u) Lower Body Dressing (QC): 4 (SBA during stance.) On/Off Footwear: 5 (s/u ) Toileting Hygiene (QC): 4 (SUP) Toilet Transfer (QC): 4 (SBA, use of walker.) Other Treatment Pt sit to stand with SBA, ambulates with walker to toilet. Completes toileting and iliostomy care. Pt completes shower transfer, states she believes apt. complex has walk in showers. Sits during showering, completes ADLs as outlined. Pt returns to recliner with all needs met, call light in reach. Fair energy. Pt sit to stand SBA, ambulates with SBA to therapy gym. With moderate tension, pt completes 10 min arm bike ex with minimal rest breaks. Pt denies pain post- tx. Pt ambulates through halls to work towards higher fx activity tolerance during I/ADLs, ambulates with SBA and returns to room without rest. Pt in chair end of session with all needs met, call light on lap. Pt states need for nap. Education OT Patient Education: Correct positioning, Exercise program, Home exercise program, Progress toward Goal/Update tx plan, Purpose of tx/functional activities, Safety issues, Transfer techniques Teaching Recipient: Patient Teaching Methods: Demonstration, Discussion Response to Teaching: Verbalize Understanding, Return Demonstration OT Halfway Goals Halfway Goals Time Frame: Mar 03, 2021 Eating (QC): 6 Oral Hygiene (QC): 6 Toileting Hygiene (QC): 6 Shower/Bathe Self (QC): 5 Upper Body Dressing (QC): 6 Lower Body Dressing (QC): 6 On/Off Footwear (QC): 6 Additional Goals: 1-Demonstrate ADL Tasks, 2-Verbalize Understanding, 3- ImproveStrength/Fern 1=Demonstrate adherence to instructed precautions during ADL tasks. 2=Patient will verbalize/demonstrate understanding of assistive devices/modifications for ADL. 3=Patient will improve strength/tolerance for activity to enable patient to perform ADL's. OT Education/Plan Problem List/Assessment Assessment: Decreased Activ Tolerance, Decreased UE Strength, Impaired I ADL's, Impaired Self-Care Skills Discharge Recommendations Plan/Recommendations: Continue POC Therapy Discharge Recommendati: Intermittent Supervision, Home & Family Treatment Plan/Plan of Care Treatment,Training & Education: Yes Patient would benefit from OT for education, treatment and training to promote independence in ADL's, mobility, safety and/or upper extremity function for ADL's. Plan of Care: ADL Retraining, Functional Mobility, Group Exercise/Act as Ind, UE Funct Exercise/Act Treatment Duration: Mar 03, 2021 Frequency: At least 5 of 7 days/Wk (IRF) Estimated Hrs Per Day: 1.5 hours per day Agreement: Yes Rehab Potential: Good Time/GCodes Start Time: 08:00 (1300) Stop Time: 09:00 (1330) Total Time Billed (hr/min): 90 Billed Treatment Time 1910-2386: 1, ADL 4 (60) [id number]: 1, EX 2 (30) MAISHA DAVENPORT OTR Feb 18, 2021 10:12
--- NOTE | 2021-02-18 10:25 | Individualized Plan of Care ---
Individualized Plan of Care Rehab Nursing IPOC Order Admission Date Feb 17, 2021 at 08:13 Current Orders Orders Transfer - Bed/Room/Location (02/17/21 08:13) Admission Order(Inpt,Obs,Sdc) (02/17/21 08:39) Antonio Partidapeter (02/17/21 08:39) Sequential Compression Device .admit (02/17/21 08:39) Fund Raiser-Inpt Rehab Con (02/17/21 08:39) Rehab Nursing Orders-Ipoc (02/17/21 08:39) Physical Therapy Rehab Orders (02/17/21 08:39) Occupational Therapy Rehab Ord (02/17/21 08:39) Speech Therapy Rehab Orders (02/17/21 08:39) Cbc With Automated Diff (02/18/21 06:00) Comprehensive Metabolic Panel (02/18/21 06:00) Precautions (Aru) (02/17/21 08:39) Weekly Weight WEEK (02/17/21 08:39) Rehab-Intensity Of Therapy (02/17/21 08:39) Initiate Admission Nursing Pro .admission (02/17/21 08:39) Acetaminophen Tablet (Tylenol Tablet) (02/17/21 08:45) Calcium Carbonate Chew Tablet (Antacid C (02/17/21 08:45) Diphenhydramine Tablet (Benadryl Tablet) (02/17/21 08:45) Docusate Sodium Capsule (Colace Capsule) (02/17/21 09:00) Docusate Sodium Capsule (Colace Capsule) (02/17/21 08:45) Bisacodyl Suppository (Dulcolax Supposit (02/17/21 08:45) Lactulose Oral Solution (Enulose Oral So (02/17/21 08:45) Na Phos/Na Biphos Enema (Fleet Enema Fer (02/17/21 08:45) Guaifenesin/Codeine Syrup (Robitussin Ac (02/17/21 08:45) Hydrocodone/Apap 5/325 Tablet (Lortab 5 (02/17/21 08:45) Loperamide Tablet (Imodium Tablet) (02/17/21 08:45) Enoxaparin Injection (Lovenox Injection) (02/17/21 11:00) Melatonin Tablet (Melatonin Tablet) (02/17/21 08:45) Polyethylene Glycol Powder Pkt (Miralax (02/17/21 09:00) Ondansetron Oral Dissolve Tab (Zofran (02/17/21 08:45) Senna S Tablet (Senokot S Tablet) (02/17/21 09:00) Code/Resuscitation (02/17/21 08:39) Initiate Admission Nursing Pro .admission (02/17/21 08:39) Alprazolam Tablet (Xanax Tablet) (02/17/21 08:45) Aspirin Enteric Coated Tablet (Ecotrin T (02/17/21 09:00) Carvedilol Tablet (Coreg Tablet) (02/17/21 09:00) Clopidogrel Tablet (Plavix Tablet) (02/17/21 09:00) Pantoprazole Tablet (Protonix Tablet) (02/17/21 09:00) Cyclobenzaprine Tablet (Flexeril Tablet) (02/17/21 09:00) Fiber/Restrict Gas Causing (02/17/21 Breakfast) Cbc With Automated Diff (02/17/21 09:26) Comprehensive Metabolic Panel (02/17/21 09:26) Thyroid Stimulating Hormone (02/17/21 09:26) Iron Test (Fe) (02/17/21 09:26) Manual Differential (02/17/21 10:40) Ekg Tracing (02/17/21 11:44) Consult Cardiology (02/17/21 11:44) Ns Iv 1000 Ml (Sodium Chloride 0.9%) (02/17/21 13:00) Ns Iv 1000 Ml (Sodium Chloride 0.9%) (02/17/21 13:00) Patient Visit (02/17/21 ) Speech Sound Lang Comp (02/17/21 ) Patient Visit (02/17/21 ) Pt Eval Low Complexity (02/17/21 ) Functional Activities, Ea 15 (02/17/21 ) Patient Visit (02/17/21 ) Exercise Therap, Ea 15 Min (02/17/21 ) Venous Access Request Order (02/17/21 14:17) Carvedilol Tablet (Coreg Tablet) (02/17/21 21:00) Carvedilol Tablet (Coreg Tablet) (02/17/21 21:00) Iron Sucrose Injection (Venofer Injectio (02/18/21 10:30) Enlive Variety (02/18/21 14:00) Patient Visit (02/18/21 ) Gait Training, Ea 15 Min (02/18/21 ) Exercise Therap, Ea 15 Min (02/18/21 ) Functional Activities, Ea 15 (02/18/21 ) Rehab Nursing Orders: Ongoing Assess. of Cognitive Status, Ongoing Assess. of Function Status, Bladder Management, Bladder Scan, Bladder Training, Bowel Management, Bowel Training, Disease Management & Educaiton, DVT Prophylaxis, Fall Prevention, Fluid/Electrolyte/Nutrition Mgmt, Infection Prevention, Medication Management & Education, Management of Risks & Complications, Management of Skin Intergrity, Nutrition Management, Pain Management, Patient/Family Support, Safety Management Intensity of Therapy to be met Patient to be seen: Min.3h per day/5 of 7d PT IPOC Problem List: Activity Tolerance, Functional Strength, Safety, Balance, Gait, Transfer, Bed Mobility Treatment Plan: Continue Plan of Care Bed Mobility, Education, Functional Activity Fern, Functional Strength, Group Therapy, Gait, Safety, Therapeutic Exercise, Transfers Treatment Duration: Mar 03, 2021 Frequency: At least 5 of 7 days/Wk (IRF) Estimated Hrs Per Day: 1.5 hours per day OT IPOC Problems: Decreased Activ Tolerance, Decreased UE Strength, Impaired I ADL's, Impaired Self-Care Skills OT Treatment, Training and Edu: Yes Plan of Care: ADL Retraining, Functional Mobility, Group Exercise/Act as Ind, UE Funct Exercise/Act Treatment Duration: Mar 03, 2021 Frequency: At least 5 of 7 days/Wk (IRF) Estimated Hrs Per Day: 1.[address] IPOC Speech Therapy Treatment Plan: Discontinue ST Treatment Duration: Feb 17, 2021 Frequency: 1 time per week Estimated Hrs Per Day: .5 hour per day Fund Raiser/Case Mgmt Fund Raiser/Case Managemen: Discharge Planning Dietitian/Furniture Painter Dietitian/Furniture Painter to monitor nutritional status and make changes and/or recommendations as needed and work with speech pathology on dietary upgrades as the occur. Physician IPOC Medical Issues being managed closely and that require the 24 hour availability of a physician: Recent critical illness require close physician monitoring for decompensation due to tachycardia and risk of dehydration and bowel obstruction Medical Issues: Bowel/Bladder Function, DVT Prophylaxis, Falls Precautions, Fluid/Electrolyte/Nutrition Balance, Infection Protection, Pain Management Brief Synthesis of Preadmission Screen, Post-Admission Evaluation, and Therapy Evaluations: PT OT will focus on regaining function with use of AD and increase ability to return to independent living Medical Prognosis: Good Anticipated Length of Stay: 7 days SESAR BEEBE DO Feb 18, 2021 10:25
--- NOTE | 2021-02-18 10:25 | PM&R Progress Note ---
Subjective HPI/CC On Admission Date Seen by Provider: Feb 18, 2021 Time Seen by Provider: 10:30 Subjective/Events-last exam 02/18/21: Patient doing well HLIVF Tachy improved Coreg increased dose helping Venofer ordered for iron 29 AP decreased to 237 today Creat 1.16 Jeet look good Review of Systems General: Fatigue, Malaise Objective Exam Vital Signs Vital Signs Date Time Temp Pulse Resp B/P (MAP) Pulse Ox O2 Delivery O2 Flow Rate FiO2 02/18/21 20:15 99 Room Air 02/18/21 16:25 36.5 90 18 114/78 (90) Capillary Refill : General Appearance: No Apparent Distress, WD/WN, Anxious, Chronically ill HEENT: PERRL/EOMI, Normal ENT Inspection, Pharynx Normal Neck: Full Range of Motion, Normal Inspection, Non Tender, Supple, Carotid Bru it Respiratory: Chest Non Tender, Lungs Clear, Normal Breath Sounds, No Accessory Muscle Use, No Respiratory Distress Cardiovascular: Regular Rate, Rhythm, No Edema, No Gallop, No JVD, No Murmur, Normal Peripheral Pulses, Tachycardia Gastrointestinal: Normal Bowel Sounds, No Organomegaly, No Pulsatile Mass, Non Tender, Soft Back: Normal Inspection, No CVA Tenderness, No Vertebral Tenderness Extremity: Normal Capillary Refill, Normal Inspection, Normal Range of Motion, Non Tender, No Calf Tenderness, No Pedal Edema Neurologic/Psychiatric: Alert, Oriented x3, Normal Mood/Affect, Abnormal Gait, Motor Weakness (generalized all extremities) Skin: Normal Color, Warm/Dry Lymphatic: No Adenopathy Results/Procedures Lab Laboratory Tests 02/18/21 05:30 Patient resulted labs reviewed. FIM Transfers Therapy Code Descriptions/Definitions Functional [place] Measure: 0=Not Assessed/NA 4=Minimal Assistance 1=Total Assistance 5=Supervision or Setup 2=Maximal Assistance 6=Modified [place] 3=Moderate Assistance 7=Complete IndependenceSCALE: Activities may be completed with or without assistive devices. 3-Qrpylhmnsx-awtrnwd completes the activity by him/herself with no assistance from a helper. 5-Set-up or Clean-up Assistance-helper sets up or cleans up; patient completes activity. [place] assists only prior to or following the activity. 4-Supervision or Touching Assistance-helper provides verbal cues and/or touching/steadying and/or contact guard assistance as patient completes activity. Assistance may be provided throughout the activity or intermittently. 3-Partial/Moderate Assistance-helper does LESS THAN HALF the effort. [place] li fts, holds or supports trunk or limbs, but provides less than half the effort. 2-Substantial/Maximal Assistance-helper does MORE THAN HALF the effort. [place] lifts or holds trunk or limbs and provides more than half the effort. 9-Zgzvhdoix-ecbxtv does ALL the effort. Patient does none of the effort to complete the activity. Or, the assistance of 2 or more helpers is required for the patient to complete the activity. If activity was not attempted, code reason: 7-Patient Refused. 9-Not Applicable-not attempted and the patient did not perform the activity before the current illness, exacerbation or injury. 10-Not Attempted due to Environmental Limitations-(lack of equipment, weather restraints, etc.). 88-Not Attempted due to Medical Conditions or Safety Concerns. Roll Left to Right (QC): 4 Sit to Lying (QC): 4 Sit to Stand (QC): 4 Chair/Fal-gk-Chtda Xfer(QC): 4 Car Transfer (QC): 4 Gait Training Does the Patient Walk?: Yes Walk 10 feet (QC): 4 Walk 50 ft with 2 Turns(QC): 4 Walk 150 ft (QC): 4 Walking 10ft/uneven surface-QC: 4 Gait Assistive Device: FWW Wheelchair Training Does the Pt Use a Wheelchair?: No Wheel 50 ft with 2 turns (QC): 9 Wheel 150 ft (QC): 9 Type of Wheelchair: N/A Stair Training #of Steps: 12 1 Step (curb) (QC): 4 4 Steps (QC): 4 12 Steps (QC): 4 Balance Picking up an Object (QC): 4 ADL-Treatment Eating (QC): 6 Oral Hygiene (QC): 5 (s/u chair in bathroom; pt able to comlete oral care in seated with IND.) Bathing Location: L Arm, R Arm, L Upper Leg, R Upper Leg, L Lower Leg (including foot), R Lower Leg (including foot), Chest, Abdomen, Buttocks, Perineal Area Shower/Bathe Self (QC): 4 (SBA in stance, SUP in sit. 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
--- NOTE | 2021-02-18 10:57 | Physical Therapy Daily Note ---
PT Daily Note-Current Subjective Pt. agrees to Rx, states she feels better and stronger but its slow. Pt. is now in process of attempting to move from her current mobile home to a [place] apt in [place]. Pain Numeric Pain Scale: 0-No Pain Location: No Pain Reported Mental Status Patient Orientation: Normal For Age Attachments: Colostomy/Ileostomy, Other-See Comments (mask) Transfers SCALE: Activities may be completed with or without assistive devices. 1-Hzlefuasmk-pdllfzu completes the activity by him/herself with no assistance from a helper. 5-Set-up or Clean-up Assistance-helper sets up or cleans up; patient completes activity. [place] assists only prior to or following the activity. 4-Supervision or Touching Assistance-helper provides verbal cues and/or touching/steadying and/or contact guard assistance as patient completes activity. Assistance may be provided throughout the activity or intermittently. 3-Partial/Moderate Assistance-helper does LESS THAN HALF the effort. [place] lifts, holds or supports trunk or limbs, but provides less than half the effort. 2-Substantial/Maximal Assistance-helper does MORE THAN HALF the effort. [place] lifts or holds trunk or limbs and provides more than half the effort. 0-Xlipuyhor-toinyk does ALL the effort. Patient does none of the effort to complete the activity. Or, the assistance of 2 or more helpers is required for the patient to complete the activity. If activity was not attempted, code reason: 7-Patient Refused. 9-Not Applicable-not attempted and the patient did not perform the activity before the current illness, exacerbation or injury. 10-Not Attempted due to Environmental Limitations-(lack of equipment, weather restraints, etc.). 88-Not Attempted due to Medical Conditions or Safety Concerns. Roll Left & Right (QC): 6 Sit to Lying (QC): 6 Lying to Sitting/Side of Bed(Q: 6 Sit to Stand (QC): 6 Chair/Owj-yc-Nniyq Xfer(QC): 6 Toilet Transfer (QC): 6 Weight Bearing Right Lower Extremity: Right Full Weight Bearing Left Lower Extremity: Left Full Weight Bearing Gait Training Does the Patient Walk?: Yes Walk 10 feet (QC): 6 Walk 50 ft with 2 Turns(QC): 6 Walk 150 ft (QC): 6 Gait Persons Needed: 1 Gait Assistive Device: FWW [id number] SBA, no LOB, no c/o , flexed posture over FWW, near up ad roro status Stair Training Stair Training: Handrails/: 2 handrails #of Steps: 12 1 Step (curb) (QC): 5 4 Steps (QC): 5 12 Steps (QC): 5 Stairs: Pattern: Step to Exercises Supine Ex: Bridging, Ankle pumps, Quad Set, Rolling, Glut sets, Lower trunk rotation, Heel Slides, Short Arc Quads, Straight leg raise, Hip abd/add Supine Reps: 20 Seated Therapy Exercises: Ankle pumps, Sit to stand, Long arc quads, Hip flexion, Hip abd/add Seated Reps: 15 Standing: Side steps, Weight shifts Standing Reps: 12 NuStep Minutes: 15 NuStep Workload: 2 Treatments pt. with personal goal on nustep of 1000 steps was met. Assessment Current Status: Good Progress needs some seated rest breaks, gives good effort PT Short Term Goals Short Term Goals Time Frame: Feb 20, 2021 Roll Left & Right: 6 Sit to lyin Lying to sitting on side of be: 6 Sit to stand: 6 Chair/jto-ox-pyewo transfer: 6 PT Supervisory Historian Goals [facility] Goals PT Supervisory Historian Goals Time Frame: Mar 03, 2021 Roll Left & Right (QC): 6 Sit to Lying (QC): 6 Lying-Sitting on Side/Bed(QC): 6 Sit to Stand (QC): 6 Chair/Ulz-wl-Nbvue Xfer(QC): 6 Toilet Transfer (QC): 6 Car Transfer (QC): 6 Does the Patient Walk: Yes Walk 10 feet (QC): 6 Walk 50ft with 2 Turns (QC): 6 Walk 150 ft (QC): 6 Walking 10ft on Uneven Surface: 6 1 Step (curb) (QC): 6 4 Steps (QC): 6 12 Steps (QC): 6 Picking up an Object (QC): 6 Does the Pt use WC or Scooter?: No Wheel 50 feet with 2 turns (QC: 9 Type: N/A Wheel 150 feet: 9 Type: N/A PT Plan Treatment/Plan Treatment Plan: Continue Plan of Care Treatment Plan: Bed Mobility, Education, Functional Activity Fern, Functional Strength, Group Therapy, Gait, Safety, Therapeutic Exercise, Transfers Treatment Duration: Mar 03, 2021 Frequency: At least 5 of 7 days/Wk (IRF) Estimated Hrs Per Day: 1.5 hours per day Patient and/or Family Agrees t: Yes Safety Risks/Education Patient Education: Gait Training, Transfer Techniques, Steps, Correct Positioning, Disease Process, Safety Issues Teaching Recipient: Patient Teaching Methods: Demonstration, Discussion Response to Teaching: Verbalize Understanding, Return Demonstration, Reinforcement Needed Time/GCodes Time In: 930 Time Out: 1100 Total Billed Treatment Time: 90 Total Billed Treatment 1,GT30m,EX40m,FA20m AN 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
[2021-02-18] MEDS: ENOXAPARIN 40 MG/0.4 ML (LOVENOX) SYR SC SCH (11:06)
[2021-02-18] MEDS: IRON SUCROSE 200 MG/10 ML (VENOFER) VIAL IV SCH (11:06)
--- NOTE | 2021-02-18 12:05 | Progress Note - Cardiology ---
Cardiology SOAP Progress Note Subjective: Up with PT States she feels better today No c/o CP or SOB Objective: I&O/Vital Signs 02/19/21 06:00 Temp 36.8 Pulse 84 Resp 20 B/P (MAP) 110/69 (83) Pulse Ox 97 O2 Delivery Room Air 02/19/21 00:00 Intake Total 960 ml Output Total 800 ml Balance 160 ml Constitutional: AAO x 3, well-developed, well-nourished Respiratory: other Cardiovascular: regular rate-rhythm, S1 and S2, systolic murmur Gastrointestional: soft, audible bowel sounds, other Extremities: No clubbing, No cyanosis, No significant edema Neurologic/Psychiatric: oriented x 3, other Skin: normal color, warm/dry Results/Procedures: Labs A/P: Assessment: Sinus tach and renal insuff, likely due to volume deptletion CAD, h/o cor stenting at [facility] in Oct 2019 (to treat angina, not to treat [place], according to the patient). Last card cath on 03/05/20: patent stents in the mid left circumflex and the mid right coronary arteries. There is moderate diffuse disease of all coronary arteries. There is moderately severe diffuse disease of the distal left anterior descending. A small caliber obtuse marginal has 70% to 80% ostial stenosis. Normal left ventricular end-diastolic pressure. Echo of 03/05/20: LVEF 60-65%, mild to mod TR, RVSP 35-40 mmHg, mild dilatation of LA Abdominal surgeries - S/p colectomy and ileostomy for intestinal obstruction - subsequent ileostomy reversal in May 2020 - Exp lap and small bowel resection and ileostomy in January 2021 Plan: * Continue current regimen * Beta-nadeem if bp tolerates * Monitor labs BENJI WILLOUGHBY Feb 18, 2021 12:05
[2021-02-18 16:25] VITALS: BP 114/78
--- NOTE | 2021-02-18 18:52 | Progress Note - Cardiology ---
Cardiology SOAP Progress Note Subjective: Feels better today Less weak No cp or palp or syncope No n/v Objective: I&O/Vital Signs 02/18/21 02/18/21 08:08 16:25 Temp 36.5 Pulse 90 Resp 18 B/P (MAP) 114/78 (90) Pulse Ox 100 99 O2 Delivery Room Air Room Air 02/18/21 00:00 Intake Total 3320 ml Output Total 700 ml Balance 2620 ml Constitutional: AAO x 3, well-developed, well-nourished Respiratory: other Cardiovascular: regular rate-rhythm, S1 and S2, systolic murmur Gastrointestional: soft, audible bowel sounds, other Extremities: No clubbing, No cyanosis, No significant edema Neurologic/Psychiatric: oriented x 3, other Skin: normal color, warm/dry Results/Procedures: Labs Laboratory Tests 02/18/21 05:30: White Blood Count 7.5, Red Blood Count 2.93L, Hemoglobin 8.2#L, Hematocrit 25L, Mean Corpuscular Volume 86, Mean Corpuscular Hemoglobin 28, Mean Corpuscular Hemoglobin Concent 33, Red Cell Distribution Width 14.0, Platelet Count 382, Mean Platelet Volume 8.7L, Immature Granulocyte % (Auto) 2, Neutrophils (%) (Auto) 74, Lymphocytes (%) (Auto) 12, Monocytes (%) (Auto) 10, Eosinophils (%) (Auto) 2, Basophils (%) (Auto) 0, Neutrophils # (Auto) 5.5, Lymphocytes # (Auto) 0.9L, Monocytes # (Auto) 0.7, Eosinophils # (Auto) 0.2, Basophils # (Auto) 0.0, Immature Granulocyte # (Auto) 0.2H, Sodium Level 135, Potassium Level 3.8, Chloride Level 106, Carbon Dioxide Level 19L, Anion Gap 10, Blood Urea Nitrogen 36H, Creatinine 1.16, Estimat Glomerular Filtration Rate 49, BUN/Creatinine Ratio 31, Glucose Level 101, Calcium Level 8.1L, Corrected Calcium 9.0, Total Bilirubin 0.3, Aspartate Amino Transf (AST/SGOT) 28, Alanine Aminotransferase (ALT/SGPT) 52, Alkaline Phosphatase 237H, Total Protein 6.0L, Albumin 2.9L Laboratory Tests 02/17/21 10:40 02/18/21 05:30 A/P: Assessment: Sinus tach and renal insuff, likely due to volume depletion, improved with repletion CAD, h/o cor stenting at [facility] in Oct 2019 (to treat angina, not to treat [place], according to the patient). Last card cath on 03/05/20: patent stents in the mid left circumflex and the mid right coronary arteries. There is moderate diffuse disease of all coronary arteries. There is moderately severe diffuse disease of the distal left anterior descending. A small caliber obtuse marginal has 70% to 80% ostial stenosis. Normal left ventricular end-diastolic pressure. Echo of 03/05/20: LVEF 60-65%, mild to mod TR, RVSP 35-40 mmHg, mild dilatation of LA Abdominal surgeries - S/p colectomy and ileostomy for intestinal obstruction - subsequent ileostomy reversal in May 2020 - Exp lap and small bowel resection and ileostomy in January 2021 Plan: * Continue current regimen * Beta-nadeem if bp tolerates * Monitor labs VI KO MD FACP [facility] Feb 18, 2021 18:52
[2021-02-18] MEDS: HYDROcodone/APAP 5 MG/325 MG (LORTAB) TAB PO PRN (23:17)
[2021-02-19 06:00] VITALS: BP 110/69
--- NOTE | 2021-02-19 06:13 | PM&R Progress Note ---
Subjective HPI/CC On Admission Date Seen by Provider: Feb 19, 2021 Time Seen by Provider: 13:00 Subjective/Events-last exam 02/19/21: Improved status Therapy states she is doing well Patient denies any issues 02/18/21: Patient doing well HLIVF Tachy improved Coreg increased dose helping Venofer ordered for iron 29 AP decreased to 237 today Creat 1.16 [place] look good Review of Systems General: Fatigue, Malaise Objective Exam Vital Signs Vital Signs Date Time Temp Pulse Resp B/P (MAP) Pulse Ox O2 Delivery O2 Flow Rate FiO2 02/19/21 16:00 36.7 100 16 121/84 (96) 98 02/19/21 08:00 Room Air Capillary Refill : General Appearance: No Apparent Distress, WD/WN, Anxious, Chronically ill HEENT: PERRL/EOMI, Normal ENT Inspection, Pharynx Normal Neck: Full Range of Motion, Normal Inspection, Non Tender, Supple, Carotid Bruit Respiratory: Chest Non Tender, Lungs Clear, Normal Breath Sounds, No Accessory Muscle Use, No Respiratory Distress Cardiovascular: Regular Rate, Rhythm, No Edema, No Gallop, No JVD, No Murmur, Normal Peripheral Pulses, Tachycardia Gastrointestinal: Normal Bowel Sounds, No Organomegaly, No Pulsatile Mass, Non Tender, Soft Back: Normal Inspection, No CVA Tenderness, No Vertebral Tenderness Extremity: Normal Capillary Refill, Normal Inspection, Normal Range of Motion, Non Tender, No Calf Tenderness, No Pedal Edema Neurologic/Psychiatric: Alert, Oriented x3, Normal Mood/Affect, Abnormal Gait, Motor Weakness (generalized all extremities) Skin: Normal Color, Warm/Dry Lymphatic: No Adenopathy Results/Procedures Lab Patient resulted labs reviewed. FIM Transfers Therapy Code Descriptions/Definitions Functional [place] Measure: 0=Not Assessed/NA 4=Minimal Assistance 1=Total Assistance 5=Supervision or Setup 2=Maximal Assistance 6=Modified [place] 3=Moderate Assistance 7=Complete IndependenceSCALE: Activities may be completed with or without assistive devices. 9-Vrasuepuab-snkpnqm completes the activity by him/herself with no assistance from a helper. 5-Set-up or Clean-up Assistance-helper sets up or cleans up; patient completes activity. [place] assists only prior to or following the activity. 4-Supervision or Touching Assistance-helper provides verbal cues and/or touching/steadying and/or contact guard assistance as patient completes activity. Assistance may be provided throughout the activity or intermittently. 3-Partial/Moderate Assistance-helper does LESS THAN HALF the effort. [place] lifts, holds or supports trunk or limbs, but provides less than half the effort. 2-Substantial/Maximal Assistance-helper does MORE THAN HALF the effort. [place] lifts or holds trunk or limbs and provides more than half the effort. 5-Bmbezxahb-upxwzd does ALL the effort. Patient does none of the effort to complete the activity. Or, the assistance of 2 or more helpers is required for the patient to complete the activity. If activity was not attempted, code reason: 7-Patient Refused. 9-Not Applicable-not attempted and the patient did not perform the activity before the current illness, exacerbation or injury. 10-Not Attempted due to Environmental Limitations-(lack of equipment, weather restraints, etc.). 88-Not Attempted due to Medical Conditions or Safety Concerns. Roll Left to Right (QC): 6 Sit to Lying (QC): 6 Sit to Stand (QC): 6 Chair/Itz-ew-Kuvhy Xfer(QC): 6 Car Transfer (QC): 4 Gait Training Does the Patient Walk?: Yes Walk 10 feet (QC): 6 Walk 50 ft with 2 Turns(QC): 6 Walk 150 ft (QC): 6 Walking 10ft/uneven surface-QC: 4 Gait Persons Needed: 1 Gait Assistive Device: FWW Wheelchair Training Does the Pt Use a Wheelchair?: No Wheel 50 ft with 2 turns (QC): 9 Wheel 150 ft (QC): 9 Type of Wheelchair: N/A Stair Training Stair Training: Handrails/: 2 handrails #of Steps: 12 1 Step (curb) (QC): 5 4 Steps (QC): 5 12 Steps (QC): 5 Stairs: Pattern: Step to Balance Picking up an Object (QC): 4 ADL-Treatment Eating (QC): 6 Oral Hygiene (QC): 5 (s/u chair in bathroom; pt able to comlete oral care in seated with IND.) Bathing Location: L Arm, R Arm, L Upper Leg, R Upper Leg, L Lower Leg (including foot), R Lower Leg (including foot), Chest, Abdomen, Buttocks, Perine al Area Shower/Bathe Self (QC): 4 (SBA in stance, SUP in sit. s/u for wound coverage.) Upper Body Dressing (QC): 5 (s/u) Lower Body Dressing (QC): 4 (SBA during stance.) On/Off Footwear (QC): 5 (s/u ) Toileting Hygiene (QC): 4 (SUP) Toilet Transfer (QC): 4 (SBA, use of walker.) Assessment/Plan Assessment and Plan Assess & Plan/Chief Complaint Assessment: Debility/Myopathy s/p EMIGDIO 02/07/21 Current tachycardia placed on IVF s/p critical illness and VDRF in March 2020 and 02/07/[address] 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
--- NOTE | 2021-02-19 08:09 | Occupational Ther Daily Note ---
OT Current Status-Daily Note Subjective Pt AxO, upright in chair, finished breakfast. Slept well last night, agrees to tx. Desires a shower once more. Pt expresses minimal pain in R guerrier from hitting it on the bus stairs during transport. Mental Status/Objective Patient Orientation: Normal For Age ADL-Treatment Therapy Code Descriptions/Definitions Functional [place] Measure: 0=Not Assessed/NA 4=Minimal Assistance 1=Total Assistance 5=Supervision or Setup 2=Maximal Assistance 6=Modified [place] 3=Moderate Assistance 7=Complete IndependenceSCALE: Activities may be completed with or without assistive devices. 4-Kxnbupzdmc-golcefu completes the activity by him/herself with no assistance from a helper. 5-Set-up or Clean-up Assistance-helper sets up or cleans up; patient completes activity. [place] assists only prior to or following the activity. 4-Supervision or Touching Assistance-helper provides verbal cues and/or touching/steadying and/or contact guard assistance as patient completes activity. Assistance may be provided throughout the activity or intermittently. 3-Partial/Moderate Assistance-helper does LESS THAN HALF the effort. [place] lifts, holds or supports trunk or limbs, but provides less than half the effort. 2-Substantial/Maximal Assistance-helper does MORE THAN HALF the effort. [place] lifts or holds trunk or limbs and provides more than half the effort. 7-Laxszadld-ldviwn does ALL the effort. Patient does none of the effort to comp lete the activity. Or, the assistance of 2 or more helpers is required for the patient to complete the activity. If activity was not attempted, code reason: 7-Patient Refused. 9-Not Applicable-not attempted and the patient did not perform the activity before the current illness, exacerbation or injury. 10-Not Attempted due to Environmental Limitations-(lack of equipment, weather restraints, etc.). 88-Not Attempted due to Medical Conditions or Safety Concerns. Eating (QC): 6 Oral Hygiene (QC): 6 Shower/Bathe Self (QC): 6 (Pt completes s/u (covers bagging and dressing), completes shower on sc and in stance with IND.) Upper Body Dressing (QC): 6 (gathers clothing, completes with IND) Lower Body Dressing (QC): 6 (gathers clothing, dons IND) On/Off Footwear: 6 (gathers clothing, dons IND) Toileting Hygiene (QC): 6 (Completes toilet transfer with mod I, toilet care with IND in bathroom. ) Toilet Transfer (QC): 6 (mod I with use of walker and BSC) Other Treatment Pt completes all sit to stands with SBA-SUP level. Completes showering (including s/u) with IND. Pt dresses in bathroom with chair supplied beside shower. Completes oral care and shaving at sink level in seated position with IND. Pt agrees to further tx, ambulates through valera with SBA-SUP with walker. No instances of LOB. Pt sits EOM, completing 2 min (1 set of each) of bicep curls with marches and shoulder flexion with kicks to address functional strength/ core balance. No pain noted from pt. Pt returns to room with all needs met, call light in reach, pt in recliner end of session. Education OT Patient Education: Correct positioning, Exercise program, Home exercise program, Progress toward Goal/Update tx plan, Purpose of tx/functional activities Teaching Recipient: Patient Teaching Methods: Demonstration, Discussion Response to Teaching: Verbalize Understanding, Return Demonstration OT Director Of Hotel Goals Senior Living Goals Time Frame: Mar 03, 2021 Eating (QC): 6 Oral Hygiene (QC): 6 Toileting Hygiene (QC): 6 Shower/Bathe Self (QC): 5 Upper Body Dressing (QC): 6 Lower Body Dressing (QC): 6 On/Off Footwear (QC): 6 Additional Goals: 1-Demonstrate ADL Tasks, 2-Verbalize Understanding, 3- ImproveStrength/Fern 1=Demonstrate adherence to instructed precautions during ADL tasks. 2=Patient will verbalize/demonstrate understanding of assistive devices/modifications for ADL. 3=Patient will improve strength/tolerance for activity to enable patient to perform ADL's. OT Education/Plan Problem List/Assessment Assessment: Decreased Activ Tolerance, Decreased UE Strength, Impaired I ADL's Discharge Recommendations Plan/Recommendations: Continue POC Therapy Discharge Recommendati: Intermittent Supervision, Home & Family Comment depends on environment upon d/c. Treatment Plan/Plan of Care Treatment,Training & Education: Yes Patient would benefit from OT for education, treatment and training to promote independence in ADL's, mobility, safety and/or upper extremity function for ADL's. Plan of Care: ADL Retraining, Functional Mobility, Group Exercise/Act as Ind, UE Funct Exercise/Act Treatment Duration: Mar 03, 2021 Frequency: At least 5 of 7 days/Wk (IRF) Estimated Hrs Per Day: 1.5 hours per day Agreement: Yes Rehab Potential: Good Time/GCodes Start Time: 07:45 Stop Time: 09:00 Total Time Billed (hr/min): 75 Billed Treatment Time 2250-8405: 1, ADL 4 (60), EX (15) MAISHA DAVENPORT OTR Feb 19, 2021 08:09
[2021-02-19] MEDS: CLOPIDOGREL 75 MG (PLAVIX) TABLET PO SCH (08:28)
[2021-02-19] MEDS: CARVEDILOL 6.25 MG (COREG) TAB PO SCH ×2 (08:28→21:20)
[2021-02-19] MEDS: PANTOPRAZOLE 40 MG (PROTONIX) TAB PO SCH (08:28)
[2021-02-19] MEDS: CYCLOBENZAPRINE 10 MG (FLEXERIL) TAB PO SCH (08:28)
[2021-02-19] MEDS: ASPIRIN E.C. 81 MG (ECOTRIN) TAB PO SCH (08:28)
[2021-02-19] MEDS: polyethylene glycoL POWDER 17 GM (MIRALAX) PACK PO SCH ×2 (08:29→21:19)
[2021-02-19] MEDS: DOCUSATE SODIUM 100 MG (COLACE) CAP PO SCH ×2 (08:29→21:19)
[2021-02-19] MEDS: SENNA W/DOCUSATE (SENOKOT S) TABLET PO SCH ×2 (08:29→21:19)
--- NOTE | 2021-02-19 11:59 | Physical Therapy Daily Note ---
PT Daily Note-Current Subjective Pt. states she is making progress, feeling stronger and more endurance. Pt. spoke a lot about hoping she can move from the mobile home she lives in but needs to move , sell and get rid of a lot. Pt. also concerned about trying to get disability etc. Pain Location: No Pain Reported Mental Status Patient Orientation: Normal For Age Attachments: Colostomy/Ileostomy Transfers SCALE: Activities may be completed with or without assistive devices. 6-Xfkawjlzuf-qawnzcw completes the activity by him/herself with no assistance from a helper. 5-Set-up or Clean-up Assistance-helper sets up or cleans up; patient completes activity. [place] assists only prior to or following the activity. 4-Supervision or Touching Assistance-helper provides verbal cues and/or touching/steadying and/or contact guard assistance as patient completes activity. Assistance may be provided throughout the activity or intermittently. 3-Partial/Moderate Assistance-helper does LESS THAN HALF the effort. [place] lifts, holds or supports trunk or limbs, but provides less than half the effort. 2-Substantial/Maximal Assistance-helper does MORE THAN HALF the effort. [place] lifts or holds trunk or limbs and provides more than half the effort. 8-Uccvckuku-csqson does ALL the effort. Patient does none of the effort to complete the activity. Or, the assistance of 2 or more helpers is required for the patient to complete the activity. If activity was not attempted, code reason: 7-Patient Refused. 9-Not Applicable-not attempted and the patient did not perform the activity before the current illness, exacerbation or injury. 10-Not Attempted due to Environmental Limitations-(lack of equipment, weather restraints, etc.). 88-Not Attempted due to Medical Conditions or Safety Concerns. Roll Left & Right (QC): 6 Sit to Lying (QC): 6 Lying to Sitting/Side of Bed(Q: 6 Sit to Stand (QC): 6 Chair/Wqt-us-Xfeko Xfer(QC): 6 Toilet Transfer (QC): 6 Weight Bearing Right Lower Extremity: Right Full Weight Bearing Left Lower Extremity: Left Full Weight Bearing Gait Training Does the Patient Walk?: Yes Walk 10 feet (QC): 6 Walk 50 ft with 2 Turns(QC): 5 Walk 150 ft (QC): 5 Gait Persons Needed: 1 Gait Assistive Device: FWW [id number] some rest breaks needed in sitting, no SOB Exercises Supine Ex: Bridging, Ankle pumps, Quad Set, Rolling, Glut sets, Heel Slides, Straight leg raise, Hip abd/add (sidelying) Supine Reps: 15 Seated Therapy Exercises: Ankle pumps, Sit to stand, Shoulder Flex, Long arc quads, Shoulder Abd, Hip flexion, Hip abd/add Seated Reps: 20 NuStep Minutes: 10 NuStep Workload: 4 Treatments toileted managing colostomy indep Assessment Current Status: Good Progress PT Short Term Goals Short Term Goals Time Frame: Feb 20, 2021 Roll Left & Right: 6 Sit to lyin Lying to sitting on side of be: 6 Sit to stand: 6 Chair/srv-qb-movhr transfer: 6 PT Pulp Refiner Operator Goals Residential Goals PT Pulp Refiner Operator Goals Time Frame: Mar 03, 2021 Roll Left & Right (QC): 6 Sit to Lying (QC): 6 Lying-Sitting on Side/Bed(QC): 6 Sit to Stand (QC): 6 Chair/Huf-ke-Rlocl Xfer(QC): 6 Toilet Transfer (QC): 6 Car Transfer (QC): 6 Does the Patient Walk: Yes Walk 10 feet (QC): 6 Walk 50ft with 2 Turns (QC): 6 Walk 150 ft (QC): 6 Walking 10ft on Uneven Surface: 6 1 Step (curb) (QC): 6 4 Steps (QC): 6 12 Steps (QC): 6 Picking up an Object (QC): 6 Does the Pt use WC or Scooter?: No Wheel 50 feet with 2 turns (QC: 9 Type: N/A Wheel 150 feet: 9 Type: N/A PT Plan Treatment/Plan Treatment Plan: Continue Plan of Care Treatment Plan: Bed Mobility, Education, Functional Activity Fern, Functional Strength, Group Therapy, Gait, Safety, Therapeutic Exercise, Transfers Treatment Duration: Mar 03, 2021 Frequency: At least 5 of 7 days/Wk (IRF) Estimated Hrs Per Day: 1.5 hours per day Patient and/or Family Agrees t: Yes Safety Risks/Education Patient Education: Gait Training, Transfer Techniques, Correct Positioning, Safety Issues Teaching Recipient: Patient Teaching Methods: Demonstration, Discussion Response to Teaching: Verbalize Understanding, Return Demonstration, Reinforcement Needed Time/GCodes Time In: 1030 Time Out: 1200 Total Billed Treatment Time: 90 Total Billed Treatment 1,EX45m,FA15m,GT30m AN 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
[2021-02-19] MEDS: ENOXAPARIN 40 MG/0.4 ML (LOVENOX) SYR SC SCH (12:02)
--- NOTE | 2021-02-19 13:37 | Occupational Ther Daily Note ---
OT Current Status-Daily Note Subjective Pt alert, sitting in recliner. Pt agrees to therapy. No c/o pain. Mental Status/Objective Patient Orientation: Person, Place, Time, Situation Attachments: Colostomy/Ileostomy ADL-Treatment Therapy Code Descriptions/Definitions Functional [place] Measure: 0=Not Assessed/NA 4=Minimal Assistance 1=Total Assistance 5=Supervision or Setup 2=Maximal Assistance 6=Modified [place] 3=Moderate Assistance 7=Complete IndependenceSCALE: Activities may be completed with or without assistive devices. 1-Prxetryqyp-rtvfjey completes the activity by him/herself with no assistance from a helper. 5-Set-up or Clean-up Assistance-helper sets up or cleans up; patient completes activity. [place] assists only prior to or following the activity. 4-Supervision or Touching Assistance-helper provides verbal cues and/or touching/steadying and/or contact guard assistance as patient completes activity. Assistance may be provided throughout the activity or intermittently. 3-Partial/Moderate Assistance-helper does LESS THAN HALF the effort. [place] lifts, holds or supports trunk or limbs, but provides less than half the effort. 2-Substantial/Maximal Assistance-helper does MORE THAN HALF the effort. [place] lifts or holds trunk or limbs and provides more than half the effort. 1-Wzmtfeqib-mbiyws does ALL the effort. Patient does none of the effort to complete the activity. Or, the assistance of 2 or more helpers is required for the patient to complete the activity. If activity was not attempted, code reason: 7-Patient Refused. 9-Not Applicable-not attempted and the patient did not perform the activity before the current illness, exacerbation or injury. 10-Not Attempted due to Environmental Limitations-(lack of equipment, weather restraints, etc.). 88-Not Attempted due to Medical Conditions or Safety Concerns. Other Treatment Pt ambulated using FWW, independently around ARU. Pt completed B UE task in standing to work on activity tolerance and strengthening for daily functional tasks. After session, pt sitting in recliner with call light/phone in reach. All needs met in room. OT Computer Forensics Examiner Goals [facility] Goals Time Frame: Mar 03, 2021 Eating (QC): 6 Oral Hygiene (QC): 6 Toileting Hygiene (QC): 6 Shower/Bathe Self (QC): 5 Upper Body Dressing (QC): 6 Lower Body Dressing (QC): 6 On/Off Footwear (QC): 6 Additional Goals: 1-Demonstrate ADL Tasks, 2-Verbalize Understanding, 3- ImproveStrength/[place] 1=Demonstrate adherence to instructed precautions during ADL tasks. 2=Patient will verbalize/demonstrate understanding of assistive devices/modifications for ADL. 3=Patient will improve strength/tolerance for activity to enable patient to perform ADL's. OT Education/Plan Problem List/Assessment Assessment: Decreased Activ Tolerance, Decreased UE Strength Discharge Recommendations Plan/Recommendations: Continue POC Treatment Plan/Plan of Care Patient would benefit from OT for education, treatment and training to promote independence in ADL's, mobility, safety and/or upper extremity function for ADL's. Plan of Care: ADL Retraining, Functional Mobility, Group Exercise/Act as Ind, UE Funct Exercise/Act Treatment Duration: Mar 03, 2021 Frequency: At least 5 of 7 days/Wk (IRF) Estimated Hrs Per Day: 1.5 hours per day Agreement: Yes Rehab Potential: Good Time/GCodes Start Time: 13:00 Stop Time: 13:15 Total Time Billed (hr/min): 15 Billed Treatment Time 1 visit-FA 1 (15 min) LEYDA HOBSON Feb 19, 2021 13:37
[2021-02-19] MEDS ORDERED: AMLO-250 PO (15:10)
[2021-02-19] MEDS ORDERED: MTP100TCR PO (15:10)
[2021-02-19] MEDS ORDERED: LISI20TA26 PO (15:10)
[2021-02-19 16:00] VITALS: BP 121/84
[2021-02-20] MEDS: HYDROcodone/APAP 5 MG/325 MG (LORTAB) TAB PO PRN ×2 (00:01→23:17)
[2021-02-20] MEDS: MELATONIN 3 MG TABLET PO PRN (01:42)
[2021-02-20 06:00] VITALS: BP 101/69
[2021-02-20] MEDS: CYCLOBENZAPRINE 10 MG (FLEXERIL) TAB PO SCH (08:22)
[2021-02-20] MEDS: CARVEDILOL 6.25 MG (COREG) TAB PO SCH ×2 (08:22→20:24)
[2021-02-20] MEDS: SENNA W/DOCUSATE (SENOKOT S) TABLET PO SCH ×3 (08:22→21:00)
[2021-02-20] MEDS: PANTOPRAZOLE 40 MG (PROTONIX) TAB PO SCH (08:22)
[2021-02-20] MEDS: CLOPIDOGREL 75 MG (PLAVIX) TABLET PO SCH (08:22)
[2021-02-20] MEDS: polyethylene glycoL POWDER 17 GM (MIRALAX) PACK PO SCH ×2 (08:22→21:00)
[2021-02-20] MEDS: ASPIRIN E.C. 81 MG (ECOTRIN) TAB PO SCH (08:22)
[2021-02-20] MEDS: DOCUSATE SODIUM 100 MG (COLACE) CAP PO SCH ×3 (08:23→21:00)
[2021-02-20] MEDS: IRON SUCROSE 200 MG/10 ML (VENOFER) VIAL IV SCH (08:25)
[2021-02-20 08:29] VITALS: BP 106/69
--- NOTE | 2021-02-20 08:42 | PM&R Progress Note ---
Subjective HPI/CC On Admission Date Seen by Provider: Feb 20, 2021 Time Seen by Provider: 14:15 Subjective/Events-last exam 02/20/21: Patient feels good [place] intact No pain reported 02/19/21: Improved status Therapy states she is doing well Patient denies any issues 02/18/21: Patient doing well HLIVF Tachy improved Coreg increased dose helping Venofer ordered for iron 29 AP decreased to 237 today Creat 1.16 [place] look good Review of Systems General: Fatigue, Malaise Objective Exam Vital Signs Vital Signs Date Time Temp Pulse Resp B/P (MAP) Pulse Ox O2 Delivery O2 Flow Rate FiO2 02/20/21 16:18 36.3 92 16 113/80 (91) 99 02/20/21 09:15 Room Air Capillary Refill : General Appearance: No Apparent Distress, WD/WN, Anxious, Chronically ill HEENT: PERRL/EOMI, Normal ENT Inspection, Pharynx Normal Neck: Full Range of Motion, Normal Inspection, Non Tender, Supple, Carotid Bruit Respiratory: Chest Non Tender, Lungs Clear, Normal Breath Sounds, No Accessory Muscle Use, No Respiratory Distress Cardiovascular: Regular Rate, Rhythm, No Edema, No Gallop, No JVD, No Murmur, Normal Peripheral Pulses, Tachycardia Gastrointestinal: Normal Bowel Sounds, No Organomegaly, No Pulsatile Mass, Non Tender, Soft Back: Normal Inspection, No CVA Tenderness, No Vertebral Tenderness Extremity: Normal Capillary Refill, Normal Inspection, Normal Range of Motion, Non Tender, No Calf Tenderness, No Pedal Edema Neurologic/Psychiatric: Alert, Oriented x3, Normal Mood/Affect, Abnormal Gait, Motor Weakness (generalized all extremities) Skin: Normal Color, Warm/Dry Lymphatic: No Adenopathy Results/Procedures Lab Patient resulted labs reviewed. FIM Transfers Therapy Code Descriptions/Definitions Functional [place] Measure: 0=Not Assessed/NA 4=Minimal Assistance 1=Total Assistance 5=Supervision or Setup 2=Maximal Assistance 6=Modified [place] 3=Moderate Assistance 7=Complete IndependenceSCALE: Activities may be completed with or without assistive devices. 2-Puqxvyrnll-nmmvtjb completes the activity by him/herself with no assistance from a helper. 5-Set-up or Clean-up Assistance-helper sets up or cleans up; patient completes activity. [place] assists only prior to or following the activity. 4-Supervision or Touching Assistance-helper provides verbal cues and/or touching/steadying and/or contact guard assistance as patient completes activity. Assistance may be provided throughout the activity or intermittently. 3-Partial/Moderate Assistance-helper does LESS THAN HALF the effort. [place] lifts, holds or supports trunk or limbs, but provides less than half the effort. 2-Substantial/Maximal Assistance-helper does MORE THAN HALF the effort. [place] lifts or holds trunk or limbs and provides more than half the effort. 9-Zrhtwfxzd-xdsbkg does ALL the effort. Patient does none of the effort to complete the activity. Or, the assistance of 2 or more helpers is required for the patient to complete the activity. If activity was not attempted, code reason: 7-Patient Refused. 9-Not Applicable-not attempted and the patient did not perform the activity before the current illness, exacerbation or injury. 10-Not Attempted due to Environmental Limitations-(lack of equipment, weather restraints, etc.). 88-Not Attempted due to Medical Conditions or Safety Concerns. Roll Left to Right (QC): 6 Sit to Lying (QC): 6 Sit to Stand (QC): 6 Chair/Mwe-vz-Mcxln Xfer(QC): 6 Car Transfer (QC): 4 Gait Training Does the Patient Walk?: Yes Walk 10 feet (QC): 6 Walk 50 ft with 2 Turns(QC): 5 Walk 150 ft (QC): 5 Walking 10ft/uneven surface-QC: 4 Gait Persons Needed: 1 Gait Assistive Device: FWW Wheelchair Training Does the Pt Use a Wheelchair?: No Wheel 50 ft with 2 turns (QC): 9 Wheel 150 ft (QC): 9 Type of Wheelchair: N/A Stair Training Stair Training: Handrails/: 2 handrails #of Steps: 12 1 Step (curb) (QC): 5 4 Steps (QC): 5 12 Steps (QC): 5 Stairs: Pattern: Step to Balance Picking up an Object (QC): 4 ADL-Treatment Eating (QC): 6 Oral Hygiene (QC): 6 Bathing Location: L Arm, R Arm, L Upper Leg, R Upper Leg, L Lower Leg (including foot), R Lower Leg (including foot), Chest, Abdomen, Buttocks, Perineal Area Shower/Bathe Self (QC): 6 (Pt completes s/u (covers bagging and dressing), completes shower on sc and in stance with IND.) Upper Body Dressing (QC): 6 (gathers clothing, completes with IND) Lower Body Dressing (QC): 6 (gathers clothing, dons IND) On/Off Footwear (QC): 6 (gathers clothing, dons IND) Toileting Hygiene (QC): 6 (Completes toilet transfer with mod I, toilet care with IND in bathroom. 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 Anasarca hx Hirsutism Poor albumin level h/o Ascites s/p paracentesis 06/2020 Anemia s/p transfusions 2 units 03/17/20 so will give Venofer for iron level low at 29 02/18/21 Situational depression Anxiety Poor social situation Plan: Monitor closely IVF IRF protocol 02/18/21: HLIVF Venofer 02/19/21: Monitor tachy supportive care 02/20/21: Monitor closely Monitor BP (1) Myopathy (2) Bowel obstruction Status: Acute (3) Tachycardia (4) Anemia (5) Hirsutism (6) Hyperlipidemia Status: Chronic (7) Abdominal pain Status: Acute (8) Debility (9) Hypertension Status: Chronic (10) Dehydration Status: Acute SESAR BEEBE DO Feb 20, 2021 08:42
--- NOTE | 2021-02-20 10:52 | Physical Therapy Daily Note ---
PT Daily Note-Current Subjective Pt supine in bed upon arrival w/ Iron transfusion running. RN entered room and disconnected transfusion d/t it being completed. Pt agrees to supine ex only this date d/t being extremely tired d/t not sleeping well at all. Pain Numeric Pain Scale: 0-No Pain Location: No Pain Reported Mental Status Patient Orientation: Normal For Age Attachments: [place] Transfers SCALE: Activities may be completed with or without assistive devices. 2-Uxihefgkjc-iuewbtu completes the activity by him/herself with no assistance from a helper. 5-Set-up or Clean-up Assistance-helper sets up or cleans up; patient completes activity. [place] assists only prior to or following the activity. 4-Supervision or Touching Assistance-helper provides verbal cues and/or touching/steadying and/or contact guard assistance as patient completes activity. Assistance may be provided throughout the activity or intermittently. 3-Partial/Moderate Assistance-helper does LESS THAN HALF the effort. [place] lifts, holds or supports trunk or limbs, but provides less than half the effort. 2-Substantial/Maximal Assistance-helper does MORE THAN HALF the effort. [place] lifts or holds trunk or limbs and provides more than half the effort. 7-Btlhgqklp-oefsdl does ALL the effort. Patient does none of the effort to complete the activity. Or, the assistance of 2 or more helpers is required for the patient to complete the activity. If activity was not attempted, code reason: 7-Patient Refused. 9-Not Applicable-not attempted and the patient did not perform the activity before the current illness, exacerbation or injury. 10-Not Attempted due to Environmental Limitations-(lack of equipment, weather restraints, etc.). 88-Not Attempted due to Medical Conditions or Safety Concerns. Weight Bearing Right Lower Extremity: Right Full Weight Bearing Left Lower Extremity: Left Full Weight Bearing Exercises Supine Ex: Ankle pumps, Quad Set, Glut sets, Heel Slides, Straight leg raise, Hip abd/add Supine Reps: 20 (x2) Treatments Supine ex completed only this date per pt request. Pt remains supine in bed w/ call light and bedside table w/in reach and all needs met at end of tx. Assessment Current Status: Good Progress Pt doing well, but extremely tired this date d/t lack of sleep. PT Short Term Goals Short Term Goals Time Frame: Feb 20, 2021 Roll Left & Right: 6 Sit to lyin Lying to sitting on side of be: 6 Sit to stand: 6 Chair/uco-zp-gookb transfer: 6 PT Last Model Maker Goals [facility] Goals PT [facility] Goals Time Frame: Mar 03, 2021 Roll Left & Right (QC): 6 Sit to Lying (QC): 6 Lying-Sitting on Side/Bed(QC): 6 Sit to Stand (QC): 6 Chair/Uod-ez-Yzgqo Xfer(QC): 6 Toilet Transfer (QC): 6 Car Transfer (QC): 6 Does the Patient Walk: Yes Walk 10 feet (QC): 6 Walk 50ft with 2 Turns (QC): 6 Walk 150 ft (QC): 6 Walking 10ft on Uneven Surface: 6 1 Step (curb) (QC): 6 4 Steps (QC): 6 12 Steps (QC): 6 Picking up an Object (QC): 6 Does the Pt use WC or Scooter?: No Wheel 50 feet with 2 turns (QC: 9 Type: N/A Wheel 150 feet: 9 Type: N/A PT Plan Problem List Problem List: Activity Tolerance, Functional Strength, Safety, Balance, Gait, Transfer, Bed Mobility Treatment/Plan Treatment Plan: Continue Plan of Care Treatment Plan: Bed Mobility, Education, Functional Activity [place], Functional Strength, Group Therapy, Gait, Safety, Therapeutic Exercise, Transfers Treatment Duration: Mar 03, 2021 Frequency: At least 5 of 7 days/Wk (IRF) Estimated Hrs Per Day: 1.5 hours per day Patient and/or Family Agrees t: Yes Safety Risks/Education Patient Education: Safety Issues Teaching Recipient: Patient Teaching Methods: Discussion Response to Teaching: Verbalize Understanding Time/GCodes Time In: 917 Time Out: 932 Total Billed Treatment Time: 15 Total Billed Treatment 1, EX x1 (15m) JOSE STOLL BLOOD BANK CALENDAR CONTROL CLERK Feb 20, 2021 10:52
[2021-02-20] MEDS: ENOXAPARIN 40 MG/0.4 ML (LOVENOX) SYR SC SCH (10:54)
[2021-02-20 16:18] VITALS: BP 113/80
[2021-02-20 21:00] VITALS: BP 117/81
[2021-02-21 06:17] VITALS: BP 108/73
--- NOTE | 2021-02-21 07:20 | PM&R Progress Note ---
Subjective HPI/CC On Admission Date Seen by Provider: Feb 21, 2021 Time Seen by Provider: 13:30 Subjective/Events-last exam 02/21/21: No issues Labs tomorrow 02/20/21: Patient feels good [place] intact No pain reported 02/19/21: Improved status Therapy states she is doing well Patient denies any issues 02/18/21: Patient doing well HLIVF Tachy improved Coreg increased dose helping Venofer ordered for iron 29 AP decreased to 237 today Creat 1.16 [place] look good Review of Systems General: Fatigue, Malaise Neurological: Weakness Objective Exam Vital Signs Vital Signs Date Time Temp Pulse Resp B/P (MAP) Pulse Ox O2 Delivery O2 Flow Rate FiO2 02/21/21 17:19 36.8 94 18 119/84 (96) 99 Room Air Capillary Refill : General Appearance: No Apparent Distress, WD/WN, Anxious, Chronically ill HEENT: PERRL/EOMI, Normal ENT Inspection, Pharynx Normal Neck: Full Range of Motion, Normal Inspection, Non Tender, Supple, Carotid Bruit Respiratory: Chest Non Tender, Lungs Clear, Normal Breath Sounds, No Accessory Muscle Use, No Respiratory Distress Cardiovascular: Regular Rate, Rhythm, No Edema, No Gallop, No JVD, No Murmur, Normal Peripheral Pulses, Tachycardia Gastrointestinal: Normal Bowel Sounds, No Organomegaly, No Pulsatile Mass, Non Tender, Soft Back: Normal Inspection, No CVA Tenderness, No Vertebral Tenderness Extremity: Normal Capillary Refill, Normal Inspection, Normal Range of Motion, Non Tender, No Calf Tenderness, No Pedal Edema Neurologic/Psychiatric: Alert, Oriented x3, Normal Mood/Affect, Abnormal Gait, Motor Weakness (generalized all extremities) Skin: Normal Color, Warm/Dry Lymphatic: No Adenopathy Results/Procedures Lab Patient resulted labs reviewed. FIM Transfers Therapy Code Descriptions/Definitions Functional [place] Measure: 0=Not Assessed/NA 4=Minimal Assistance 1=Total Assistance 5=Supervision or Setup 2=Maximal Assistance 6=Modified [place] 3=Moderate Assistance 7=Complete IndependenceSCALE: Activities may be completed with or without assistive devices. 1-Fbknwwfhuw-gpgnonl completes the activity by him/herself with no assistance from a helper. 5-Set-up or Clean-up Assistance-helper sets up or cleans up; patient completes activity. [place] assists only prior to or following the activity. 4-Supervision or Touching Assistance-helper provides verbal cues and/or touching/steadying and/or contact guard assistance as patient completes activity. Assistance may be provided throughout the activity or intermittently. 3-Partial/Moderate Assistance-helper does LESS THAN HALF the effort. [place] lifts, holds or supports trunk or limbs, but provides less than half the effort. 2-Substantial/Maximal Assistance-helper does MORE THAN HALF the effort. [place] lifts or holds trunk or limbs and provides more than half the effort. 4-Bsqfqgzgj-wshbjp does ALL the effort. Patient does none of the effort to complete the activity. Or, the assistance of 2 or more helpers is required for the patient to complete the activity. If activity was not attempted, code reason: 7-Patient Refused. 9-Not Applicable-not attempted and the patient did not perform the activity before the current illness, exacerbation or injury. 10-Not Attempted due to Environmental Limitations-(lack of equipment, weather restraints, etc.). 88-Not Attempted due to Medical Conditions or Safety Concerns. Roll Left to Right (QC): 6 Sit to Lying (QC): 6 Sit to Stand (QC): 6 Chair/Zaf-wm-Ydlnd Xfer(QC): 6 Car Transfer (QC): 4 Gait Training Does the Patient Walk?: Yes Walk 10 feet (QC): 6 Walk 50 ft with 2 Turns(QC): 5 Walk 150 ft (QC): 5 Walking 10ft/uneven surface-QC: 4 Gait Persons Needed: 1 Gait Assistive Device: FWW Wheelchair Training Does the Pt Use a Wheelchair?: No Wheel 50 ft with 2 turns (QC): 9 Wheel 150 ft (QC): 9 Type of Wheelchair: N/A Stair Training Stair Training: Handrails/: 2 handrails #of Steps: 12 1 Step (curb) (QC): 5 4 Steps (QC): 5 12 Steps (QC): 5 Stairs: Pattern: Step to Balance Picking up an Object (QC): 4 ADL-Treatment Eating (QC): 6 Oral Hygiene (QC): 6 Bathing Location: L Arm, R Arm, L Upper Leg, R Upper Leg, L Lower Leg (including foot), R Lower Leg (including foot), Chest, Abdomen, Buttocks, Perineal Area Shower/Bathe Self (QC): 6 (Pt completes s/u (covers bagging and dressing), completes shower on sc and in stance with IND.) Upper Body Dressing (QC): 6 (gathers clothing, completes with IND) Lower Body Dressing (QC): 6 (gathers clothing, dons IND) On/Off Footwear (QC): 6 (gathers clothing, dons IND) Toileting Hygiene (QC): 6 (Completes toilet transfer with mod I, toilet care with IND in bathroom. 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 Anasarca hx Hirsutism Poor albumin level h/o Ascites s/p paracentesis 06/2020 Anemia s/p transfusions 2 units 03/17/20 so will give Venofer for iron level low at 29 02/18/21 Situational depression Anxiety Poor social situation Plan: Monitor closely IVF IRF protocol 02/18/21: HLIVF Venofer 02/19/21: Monitor tachy supportive care 02/20/21: Monitor closely Monitor BP 02/21/21: PO intake good Labs tomorrow (1) Myopathy (2) Bowel obstruction Status: Acute (3) Tachycardia (4) Anemia (5) Hirsutism (6) Hyperlipidemia Status: Chronic (7) Abdominal pain Status: Acute (8) Debility (9) Hypertension Status: Chronic (10) Dehydration Status: Acute SESAR BEEBE DO Feb 21, 2021 07:20
[2021-02-21] MEDS: ASPIRIN E.C. 81 MG (ECOTRIN) TAB PO SCH (09:17)
[2021-02-21] MEDS: DOCUSATE SODIUM 100 MG (COLACE) CAP PO SCH ×2 (09:17→20:15)
[2021-02-21] MEDS: PANTOPRAZOLE 40 MG (PROTONIX) TAB PO SCH (09:17)
[2021-02-21] MEDS: CYCLOBENZAPRINE 10 MG (FLEXERIL) TAB PO SCH (09:17)
[2021-02-21] MEDS: CLOPIDOGREL 75 MG (PLAVIX) TABLET PO SCH (09:17)
[2021-02-21] MEDS: CARVEDILOL 6.25 MG (COREG) TAB PO SCH ×2 (09:17→20:14)
[2021-02-21] MEDS: HYDROcodone/APAP 5 MG/325 MG (LORTAB) TAB PO PRN ×2 (09:18→22:31)
[2021-02-21] MEDS: polyethylene glycoL POWDER 17 GM (MIRALAX) PACK PO SCH ×2 (09:18→20:15)
[2021-02-21] MEDS: SENNA W/DOCUSATE (SENOKOT S) TABLET PO SCH ×2 (09:19→20:15)
[2021-02-21] MEDS: ENOXAPARIN 40 MG/0.4 ML (LOVENOX) SYR SC SCH (11:01)
[2021-02-21 17:19] VITALS: BP 119/84
[2021-02-21] MEDS: CATHETER FLUSH 10 ML SYR IV SCH (20:15)
[2021-02-21] MEDS: MELATONIN 3 MG TABLET PO PRN (22:31)
[2021-02-22] MEDS: CATHETER FLUSH 10 ML SYR IV SCH ×3 (05:47→20:48)
[2021-02-22 06:00] VITALS: BP 102/67
[2021-02-22 06:45] LABS: BASOPHILS % (AUTO) 1 % (0-10); EOSINOPHILS # (AUTO) 0.3 10^3/uL (0.0-0.3); EOSINOPHILS % (AUTO) 3 % (0-10); HEMATOCRIT 27 % (35-52); HEMOGLOBIN 8.5 g/dL (11.5-16.0); LYMPHOCYTES # (AUTO) 1.3 10^3/uL (1.0-4.0); LYMPHOCYTES % (AUTO) 17 % (12-44); MEAN CORPUSCULAR HEMOGLOBIN 28 pg (25-34); MEAN CORPUSCULAR HGB CONC 32 g/dL (32-36); MEAN CORPUSCULAR VOLUME 86 fL (80-99); MONOCYTES # (AUTO) 0.9 10^3/uL (0.0-1.0); MONOCYTES % (AUTO) 12 % (0-12); NEUTROPHILS # (AUTO) 5.3 10^3/uL (1.8-7.8); NEUTROPHILS % (AUTO) 67 % (42-75); PLATELET COUNT 458 10^3/uL (130-400)
[2021-02-22 07:19] LABS: BILIRUBIN,TOTAL 0.3 MG/DL (0.1-1.0); CALCIUM 8.5 MG/DL (8.5-10.1); CREATININE SERUM 1.12 MG/DL (0.60-1.30); POTASSIUM 3.6 MMOL/L (3.6-5.0); TOTAL PROTEIN 6.5 GM/DL (6.4-8.2)
[2021-02-22] MEDS: polyethylene glycoL POWDER 17 GM (MIRALAX) PACK PO SCH ×2 (07:49→20:40)
[2021-02-22] MEDS: SENNA W/DOCUSATE (SENOKOT S) TABLET PO SCH ×2 (07:49→20:40)
[2021-02-22] MEDS: DOCUSATE SODIUM 100 MG (COLACE) CAP PO SCH ×2 (07:49→20:40)
[2021-02-22] MEDS: PANTOPRAZOLE 40 MG (PROTONIX) TAB PO SCH (07:50)
[2021-02-22] MEDS: CARVEDILOL 6.25 MG (COREG) TAB PO SCH ×2 (07:50→20:47)
[2021-02-22] MEDS: IRON SUCROSE 200 MG/10 ML (VENOFER) VIAL IV SCH (07:50)
[2021-02-22] MEDS: ASPIRIN E.C. 81 MG (ECOTRIN) TAB PO SCH (07:50)
[2021-02-22] MEDS: CYCLOBENZAPRINE 10 MG (FLEXERIL) TAB PO SCH (07:50)
[2021-02-22] MEDS: CLOPIDOGREL 75 MG (PLAVIX) TABLET PO SCH (07:50)
[2021-02-22 07:55] VITALS: BP 112/77
--- NOTE | 2021-02-22 08:43 | PM&R Progress Note ---
Subjective HPI/CC On Admission Date Seen by Provider: Feb 22, 2021 Time Seen by Provider: 10:30 Subjective/Events-last exam 02/22/21: Pt is in the shower Hgb 8.5 Creatinine is 1.12 Ileostomy is producing some loose stools 02/21/21: No issues Labs tomorrow 02/20/21: Patient feels good [place] intact No pain reported 02/19/21: Improved status Therapy states she is doing well Patient denies any issues 02/18/21: Patient doing well HLIVF Tachy improved Coreg increased dose helping Venofer ordered for iron 29 AP decreased to 237 today Creat 1.16 Jeet look good Review of Systems General: Fatigue, Malaise Objective Exam Vital Signs Vital Signs Date Time Temp Pulse Resp B/P (MAP) Pulse Ox O2 Delivery O2 Flow Rate FiO2 02/22/21 20:15 Room Air 02/22/21 17:40 37.0 101 20 114/80 (91) 100 Capillary Refill : General Appearance: No Apparent Distress, WD/WN, Anxious, Chronically ill HEENT: PERRL/EOMI, Normal ENT Inspection, Pharynx Normal Neck: Full Range of Motion, Normal Inspection, Non Tender, Supple, Carotid Bruit Respiratory: Chest Non Tender, Lungs Clear, Normal Breath Sounds, No Accessory Muscle Use, No Respiratory Distress Cardiovascular: Regular Rate, Rhythm, No Edema, No Gallop, No JVD, No Murmur, Normal Peripheral Pulses, Tachycardia Gastrointestinal: Normal Bowel Sounds, No Organomegaly, No Pulsatile Mass, Non Tender, Soft Back: Normal Inspection, No CVA Tenderness, No Vertebral Tenderness Extremity: Normal Capillary Refill, Normal Inspection, Normal Range of Motion, Non Tender, No Calf Tenderness, No Pedal Edema Neurologic/Psychiatric: Alert, Oriented x3, Normal Mood/Affect, Abnormal Gait, Motor Weakness (generalized all extremities) Skin: Normal Color, Warm/Dry Lymphatic: No Adenopathy Results/Procedures Lab Laboratory Tests 02/22/21 05:40 Patient resulted labs reviewed. FIM Transfers Therapy Code Descriptions/Definitions Functional [place] Measure: 0=Not Assessed/NA 4=Minimal Assistance 1=Total Assistance 5=Supervision or Setup 2=Maximal Assistance 6=Modified [place] 3=Moderate Assistance 7=Complete IndependenceSCALE: Activities may be completed with or without assistive devices. 5-Svtfwknuys-msjvxzt completes the activity by him/herself with no assistance from a helper. 5-Set-up or Clean-up Assistance-helper sets up or cleans up; patient completes activity. [place] assists only prior to or following the activity. 4-Supervision or Touching Assistance-helper provides verbal cues and/or touching/steadying and/or contact guard assistance as patient completes activity. Assistance may be provided throughout the activity or intermittently. 3-Partial/Moderate Assistance-helper does LESS THAN HALF the effort. [place] lifts, holds or supports trunk or limbs, but provides less than half the effort. 2-Substantial/Maximal Assistance-helper does MORE THAN HALF the effort. [place] lifts or holds trunk or limbs and provides more than half the effort. 4-Vbgiyfpoh-uaspca does ALL the effort. Patient does none of the effort to complete the activity. Or, the assistance of 2 or more helpers is required for the patient to complete the activity. If activity was not attempted, code reason: 7-Patient Refused. 9-Not Applicable-not attempted and the patient did not perform the activity before the current illness, exacerbation or injury. 10-Not Attempted due to Environmental Limitations-(lack of equipment, weather restraints, etc.). 88-Not Attempted due to Medical Conditions or Safety Concerns. Roll Left to Right (QC): 6 Sit to Lying (QC): 6 Sit to Stand (QC): 6 Chair/Ksy-bm-Erhaq Xfer(QC): 6 Car Transfer (QC): 4 Gait Training Does the Patient Walk?: Yes Walk 10 feet (QC): 6 Walk 50 ft with 2 Turns(QC): 5 Walk 150 ft (QC): 5 Walking 10ft/uneven surface-QC: 4 Gait Persons Needed: 1 Gait Assistive Device: FWW Wheelchair Training Does the Pt Use a Wheelchair?: No Wheel 50 ft with 2 turns (QC): 9 Wheel 150 ft (QC): 9 Type of Wheelchair: N/A Stair Training Stair Training: Handrails/: 2 handrails #of Steps: 12 1 Step (curb) (QC): 5 4 Steps (QC): 5 12 Steps (QC): 5 Stairs: Pattern: Step to Balance Picking up an Object (QC): 4 ADL-Treatment Eating (QC): 6 Oral Hygiene (QC): 6 Bathing Location: L Arm, R Arm, L Upper Leg, R Upper Leg, L Lower Leg (including foot), R Lower Leg (including foot), Chest, Abdomen, Buttocks, Perineal Area Shower/Bathe Self (QC): 6 (Pt completes s/u (covers bagging and dressing), completes shower on sc and in stance with IND.) Upper Body Dressing (QC): 6 (gathers clothing, completes with IND) Lower Body Dressing (QC): 6 (gathers clothing, dons IND) On/Off Footwear (QC): 6 (gathers clothing, dons IND) Toileting Hygiene (QC): 6 (Completes toilet transfer with mod I, toilet care with IND in bathroom. 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 Anasarca hx Hirsutism Poor albumin level h/o Ascites s/p paracentesis 06/2020 Anemia s/p transfusions 2 units 03/17/20 so will give Venofer for iron level low at 29 02/18/21 Situational depression Anxiety Poor social situation Plan: Monitor closely IVF IRF protocol 02/18/21: HLIVF Venofer 02/19/21: Monitor tachy supportive care 02/20/21: Monitor closely Monitor BP 02/21/21: PO intake good Labs tomorrow 02/22/21: Monitor closely Monitor BP (1) Myopathy (2) Bowel obstruction Status: Acute (3) Tachycardia (4) Anemia (5) Hirsutism (6) Hyperlipidemia Status: Chronic (7) Abdominal pain Status: Acute (8) Debility (9) Hypertension Status: Chronic (10) Dehydration Status: Acute SESAR BEEBE DO Feb 22, 2021 08:43
--- NOTE | 2021-02-22 08:52 | Cardiology Progress Note ---
Subjective Date Seen by Provider: Feb 22, 2021 Time Seen by Provider: 18:00 Subjective/Events-last exam No CP, SOB, leg swelling, dizziness, or light-headedness. No new complaints. BP 112/77. Review of Systems General: No Chills, No Night Sweats, No Fatigue, No Malaise, No Appetite, No Other Pulmonary: No Dyspnea, No Cough, No Pleuritic Chest Pain, No Other Cardiovascular: No: Chest Pain, Palpitations, Orthopnea, Paroxysmal Noc. Dyspnea, Edema, Lt Headedness, Other Objective-Cardiology Exam Last Set of Vital Signs Vital Signs 02/22/21 17:40 Temp 37.0 Pulse 101 Resp 20 B/P (MAP) 114/80 (91) Pulse Ox 100 O2 Delivery Room Air Capillary Refill : I&O Intake and Output 02/22/21 00:00 Intake Total 1000 ml Output Total 1150 ml Balance -150 ml Intake Oral 1000 ml Output Stool Total 1150 ml # Voids 3 General: Alert, Oriented X3, Cooperative HEENT: Atraumatic, PERRLA Neck: Supple, No JVD, No Thyromegaly Lungs: Clear to Auscultation, Normal Air Movement Heart: Normal S1, Normal S2, No Murmurs, Other (tachycardic) Extremities: No Clubbing, No Cyanosis, No Edema, Normal Pulses, No Tenderness/Swelling Neuro: Normal Gait, Normal Speech Psych/Mental Status: Mental Status NL, Mood NL Results Lab Laboratory Tests 02/22/21 05:40 A/P-Cardiology Admission Diagnosis HTN CAD Sinus Tachycardia Anemia Assessment/Plan Hypertension, well-controlled, continue current regimen of Coreg 6.25 mg Sinus tach and renal insuff, likely due to volume depletion, improved with repletion, continue to monitor labs CAD, [place] [facility] [place] (to treat angina, not to treat MS, according to the patient). Last card cath on 03/05/20: patent stents in the mid left circumflex and the mid right coronary arteries. There is moderate diffuse disease of all coronary arteries. There is moderately severe diffuse disease of the distal left anterior descending. A small caliber obtuse marginal has 70% to 80% ostial stenosis. Normal left ventricular end-diastolic pressure. On ASA 81 mg and Plavix 75 mg. Echo of 03/05/20: LVEF 60-65%, mild to mod TR, RVSP 35-40 mmHg, mild dilatation of LA S/p colectomy and ileostomy for intestinal obstruction - subsequent ileostomy reversal in May 2020 Exp lap and small bowel resection and ileostomy in January 2021 Supervisory-Addendum Brief Supervisory Addendum Participated in pt care: history, MDM, physical Personally performed: exam, history, MDM Care discussed with: Medical Student ALFIE KOO MED STUDENT Feb 22, 2021 08:52 MALLORY MELLO MD Feb 22, 2021 19:19
[2021-02-22] MEDS: ENOXAPARIN 40 MG/0.4 ML (LOVENOX) SYR SC SCH (11:15)
--- NOTE | 2021-02-22 12:07 | Physical Therapy Daily Note ---
PT Daily Note-Current Subjective Pt. states she had a restful weekend. Feeling stronger. Agrees to trial a hurry cane Pain Location: No Pain Reported Mental Status Patient Orientation: Normal For Age Attachments: Colostomy/Ileostomy, Other-See Comments (mask) Transfers SCALE: Activities may be completed with or without assistive devices. 8-Sraoppmsbx-ydskrgo completes the activity by him/herself with no assistance from a helper. 5-Set-up or Clean-up Assistance-helper sets up or cleans up; patient completes activity. [place] assists only prior to or following the activity. 4-Supervision or Touching Assistance-helper provides verbal cues and/or touching/steadying and/or contact guard assistance as patient completes activity. Assistance may be provided throughout the activity or intermittently. 3-Partial/Moderate Assistance-helper does LESS THAN HALF the effort. [place] lifts, holds or supports trunk or limbs, but provides less than half the effort. 2-Substantial/Maximal Assistance-helper does MORE THAN HALF the effort. [place] lifts or holds trunk or limbs and provides more than half the effort. 2-Zrnhxtwqb-zccbvd does ALL the effort. Patient does none of the effort to complete the activity. Or, the assistance of 2 or more helpers is required for the patient to complete the activity. If activity was not attempted, code reason: 7-Patient Refused. 9-Not Applicable-not attempted and the patient did not perform the activity before the current illness, exacerbation or injury. 10-Not Attempted due to Environmental Limitations-(lack of equipment, weather restraints, etc.). 88-Not Attempted due to Medical Conditions or Safety Concerns. Sit to Stand (QC): 6 Chair/Skl-nm-Ljulz Xfer(QC): 6 Toilet Transfer (QC): 6 Weight Bearing Right Lower Extremity: Right Full Weight Bearing Left Lower Extremity: Left Full Weight Bearing Gait Training Does the Patient Walk?: Yes Walk 10 feet (QC): 6 Walk 50 ft with 2 Turns(QC): 6 Walk 150 ft (QC): 6 Gait Assistive Device: Cane Single Point (hurry tri tip) gait 400ft with FWW SBA, 200ft with hurry cane CGA, improving, pt. instructed to use FWW in and about room and slowly gain using cane while with PT Exercises Seated Therapy Exercises: Ankle pumps, Sit to stand, Long arc quads, Hip flexion, Hip abd/add Seated Reps: 15 Standing: Hip Abduction, Heel/toe raises, Marching, Mini squats, Side steps Standing Reps: 15 NuStep Minutes: 12 NuStep Workload: 4 Treatments gait with crossovers for balance, 360 degree turns, backing etc Assessment Current Status: Good Progress PT Short Term Goals Short Term Goals Time Frame: Feb 20, 2021 Roll Left & Right: 6 Sit to lyin Lying to sitting on side of be: 6 Sit to stand: 6 Chair/hun-tt-txcvu transfer: 6 PT Long-Term Goals Long-Term Goals PT Continuous Process Rotary Drum Tanner Goals Time Frame: Mar 03, 2021 Roll Left & Right (QC): 6 Sit to Lying (QC): 6 Lying-Sitting on Side/Bed(QC): 6 Sit to Stand (QC): 6 Chair/Eau-tz-Aqqvy Xfer(QC): 6 Toilet Transfer (QC): 6 Car Transfer (QC): 6 Does the Patient Walk: Yes Walk 10 feet (QC): 6 Walk 50ft with 2 Turns (QC): 6 Walk 150 ft (QC): 6 Walking 10ft on Uneven Surface: 6 1 Step (curb) (QC): 6 4 Steps (QC): 6 12 Steps (QC): 6 Picking up an Object (QC): 6 Does the Pt use WC or Scooter?: No Wheel 50 feet with 2 turns (QC: 9 Type: N/A Wheel 150 feet: 9 Type: N/A PT Plan Treatment/Plan Treatment Plan: Continue Plan of Care Treatment Plan: Bed Mobility, Education, Functional Activity [place], Functional Strength, Group Therapy, Gait, Safety, Therapeutic Exercise, Transfers Treatment Duration: Mar 03, 2021 Frequency: At least 5 of 7 days/Wk (IRF) Estimated Hrs Per Day: 1.5 hours per day Patient and/or Family Agrees t: Yes Safety Risks/Education Patient Education: Gait Training, Transfer Techniques, Correct Positioning, Disease Process, Safety Issues Teaching Recipient: Patient Teaching Methods: Demonstration, Discussion Response to Teaching: Verbalize Understanding, Return Demonstration, Reinforcement Needed Time/GCodes Time In: 1100 Time Out: 1200 Total Billed Treatment Time: 60 Total Billed Treatment 1,GT30m,EX30m AN CHUN PTA Feb 22, 2021 12:06
--- NOTE | 2021-02-22 14:04 | Occupational Ther Daily Note ---
OT Current Status-Daily Note Subjective No pain reported. Appearance Pt. up in chair. Agrees to work with OT. Mental Status/Objective Patient Orientation: Person, Place, Time, Situation ADL-Treatment Therapy Code Descriptions/Definitions Functional [place] Measure: 0=Not Assessed/NA 4=Minimal Assistance 1=Total Assistance 5=Supervision or Setup 2=Maximal Assistance 6=Modified [place] 3=Moderate Assistance 7=Complete IndependenceSCALE: Activities may be completed with or without assistive devices. 7-Ihcjgsdhsz-mmwptyq completes the activity by him/herself with no assistance from a helper. 5-Set-up or Clean-up Assistance-helper sets up or cleans up; patient completes activity. [place] assists only prior to or following the activity. 4-Supervision or Touching Assistance-helper provides verbal cues and/or touching/steadying and/or contact guard assistance as patient completes activity. Assistance may be provided throughout the activity or intermittently. 3-Partial/Moderate Assistance-helper does LESS THAN HALF the effort. [place] lifts, holds or supports trunk or limbs, but provides less than half the effort. 2-Substantial/Maximal Assistance-helper does MORE THAN HALF the effort. [place] lifts or holds trunk or limbs and provides more than half the effort. 4-Dwqlfdftr-chzcos does ALL the effort. Patient does none of the effort to complete the activity. Or, the assistance of 2 or more helpers is required for the patient to complete the activity. If activity was not attempted, code reason: 7-Patient Refused. 9-Not Applicable-not attempted and the patient did not perform the activity before the current illness, exacerbation or injury. 10-Not Attempted due to Environmental Limitations-(lack of equipment, weather restraints, etc.). 88-Not Attempted due to Medical Conditions or Safety Concerns. Eating (QC): 6 Oral Hygiene (QC): 5 Shower/Bathe Self (QC): 4 Upper Body Dressing (QC): 5 Lower Body Dressing (QC): 5 On/Off Footwear: 5 Toileting Hygiene (QC): 5 Toilet Transfer (QC): 4 Other Treatment Pt. agrees to treatment. Pt. completes shower/dressing activities in bathroom after set up. Pt. able to empty colostomy bag on her own several times during treatment. Pt. up in chair with all needs met at end of session. Education OT Patient Education: Correct positioning, Modified ADL techniques, Progress toward Goal/Update tx plan, Purpose of tx/functional activities, Reviewed precautions, Rehab process, Transfer techniques Teaching Recipient: Patient Teaching Methods: Demonstration, Discussion Response to Teaching: Verbalize Understanding, Return Demonstration OT Jail Goals Materials Scheduler Goals Time Frame: Mar 03, 2021 Eating (QC): 6 Oral Hygiene (QC): 6 Toileting Hygiene (QC): 6 Shower/Bathe Self (QC): 5 Upper Body Dressing (QC): 6 Lower Body Dressing (QC): 6 On/Off Footwear (QC): 6 Additional Goals: 1-Demonstrate ADL Tasks, 2-Verbalize Understanding, 3- ImproveStrength/Fern 1=Demonstrate adherence to instructed precautions during ADL tasks. 2=Patient will verbalize/demonstrate understanding of assistive devices/modifications for ADL. 3=Patient will improve strength/tolerance for activity to enable patient to perform ADL's. OT Education/Plan Problem List/Assessment Assessment: Decreased Activ Tolerance Discharge Recommendations Plan/Recommendations: Continue POC Therapy Discharge Recommendati: Home & Family Treatment Plan/Plan of Care Treatment,Training & Education: Yes Patient would benefit from OT for education, treatment and training to promote independence in ADL's, mobility, safety and/or upper extremity function for ADL's. Plan of Care: ADL Retraining, Functional Mobility, Group Exercise/Act as Ind, UE Funct Exercise/Act Treatment Duration: Mar 03, 2021 Frequency: At least 5 of 7 days/Wk (IRF) Estimated Hrs Per Day: 1.5 hours per day Agreement: Yes Rehab Potential: Good Time/GCodes Start Time: 10:00 Stop Time: 11:00 Total Time Billed (hr/min): 60 Billed Treatment Time 1, ADL x 4 PAOLA MENDOZA OT Feb 22, 2021 14:04
--- NOTE | 2021-02-22 14:08 | Occupational Ther Daily Note ---
OT Current Status-Daily Note Subjective No pain reported. Mental Status/Objective Patient Orientation: Person, Place, Time, Situation ADL-Treatment Therapy Code Descriptions/Definitions Functional [place] Measure: 0=Not Assessed/NA 4=Minimal Assistance 1=Total Assistance 5=Supervision or Setup 2=Maximal Assistance 6=Modified [place] 3=Moderate Assistance 7=Complete IndependenceSCALE: Activities may be completed with or without assistive devices. 2-Urejcocrpk-ozfoatm completes the activity by him/herself with no assistance from a helper. 5-Set-up or Clean-up Assistance-helper sets up or cleans up; patient completes activity. [place] assists only prior to or following the activity. 4-Supervision or Touching Assistance-helper provides verbal cues and/or touching/steadying and/or contact guard assistance as patient completes activity. Assistance may be provided throughout the activity or intermittently. 3-Partial/Moderate Assistance-helper does LESS THAN HALF the effort. [place] lifts, holds or supports trunk or limbs, but provides less than half the effort. 2-Substantial/Maximal Assistance-helper does MORE THAN HALF the effort. [place] lifts or holds trunk or limbs and provides more than half the effort. 1-Pnekpmbqa-rtycdw does ALL the effort. Patient does none of the effort to complete the activity. Or, the assistance of 2 or more helpers is required for the patient to complete the activity. If activity was not attempted, code reason: 7-Patient Refused. 9-Not Applicable-not attempted and the patient did not perform the activity before the current illness, exacerbation or injury. 10-Not Attempted due to Environmental Limitations-(lack of equipment, weather restraints, etc.). 88-Not Attempted due to Medical Conditions or Safety Concerns. Pt. agrees to treatment. She is able to empty her colostomy bag on her own independently in bathroom. She is able to ambulate with hurri-cane to therapy gym. Pt. requests for OT to don gait belt as she does not feel as stable with her cane, but wants to practice with it. Pt. ambulates to therapy gym and completes arm bike x 10 minutes at mod resistance. After rest break, pt. completes pulleys with bilateral, reciprocal movements to increase overall strength and independence. Pt. ambulated back to room with SBA. All needs met. Education OT Patient Education: Correct positioning, Exercise program, Modified ADL techniques, Progress toward Goal/Update tx plan, Purpose of tx/functional activities, Reviewed precautions, Rehab process, Transfer techniques Teaching Recipient: Patient Teaching Methods: Demonstration, Discussion Response to Teaching: Verbalize Understanding, Return Demonstration OT Detention Goals Wire Products Inspector Goals Time Frame: Mar 03, 2021 Eating (QC): 6 Oral Hygiene (QC): 6 Toileting Hygiene (QC): 6 Shower/Bathe Self (QC): 5 Upper Body Dressing (QC): 6 Lower Body Dressing (QC): 6 On/Off Footwear (QC): 6 Additional Goals: 1-Demonstrate ADL Tasks, 2-Verbalize Understanding, 3- ImproveStrength/[place]ern 1=Demonstrate adherence to instructed precautions during ADL tasks. 2=Patient will verbalize/demonstrate understanding of assistive devices/modifications for ADL. 3=Patient will improve strength/tolerance for activity to enable patient to perform ADL's. OT Education/Plan Problem List/Assessment Assessment: Decreased Activ Tolerance Discharge Recommendations Plan/Recommendations: Continue POC Therapy Discharge Recommendati: Home & Family Treatment Plan/Plan of Care Treatment,Training & Education: Yes Patient would benefit from OT for education, treatment and training to promote independence in ADL's, mobility, safety and/or upper extremity function for ADL's. Plan of Care: ADL Retraining, Functional Mobility, Group Exercise/Act as Ind, UE Funct Exercise/Act Treatment Duration: Mar 03, 2021 Frequency: At least 5 of 7 days/Wk (IRF) Estimated Hrs Per Day: 1.5 hours per day Agreement: Yes Rehab Potential: Good Time/GCodes Start Time: 13:00 Stop Time: 13:30 Total Time Billed (hr/min): 30 Billed Treatment Time 1, Ex x 2 PAOLA MENDOZA OT Feb 22, 2021 14:08
--- NOTE | 2021-02-22 14:52 | Physical Therapy Daily Note ---
PT Daily Note-Current Subjective Pt. agrees to Rx. Pain Location: No Pain Reported Mental Status Patient Orientation: Normal For Age Transfers SCALE: Activities may be completed with or without assistive devices. 6-Ihvkdhhdix-qxrsdoy completes the activity by him/herself with no assistance from a helper. 5-Set-up or Clean-up Assistance-helper sets up or cleans up; patient completes activity. [place] assists only prior to or following the activity. 4-Supervision or Touching Assistance-helper provides verbal cues and/or touching/steadying and/or contact guard assistance as patient completes activity. Assistance may be provided throughout the activity or intermittently. 3-Partial/Moderate Assistance-helper does LESS THAN HALF the effort. [place] lifts, holds or supports trunk or limbs, but provides less than half the effort. 2-Substantial/Maximal Assistance-helper does MORE THAN HALF the effort. [place] lifts or holds trunk or limbs and provides more than half the effort. 0-Tyxhgfsoe-xtotvr does ALL the effort. Patient does none of the effort to complete the activity. Or, the assistance of 2 or more helpers is required for the patient to complete the activity. If activity was not attempted, code reason: 7-Patient Refused. 9-Not Applicable-not attempted and the patient did not perform the activity before the current illness, exacerbation or injury. 10-Not Attempted due to Environmental Limitations-(lack of equipment, weather restraints, etc.). 88-Not Attempted due to Medical Conditions or Safety Concerns. all TRFs sup to sit , sit to sup and sit to stand mod I Weight Bearing Right Lower Extremity: Right Full Weight Bearing Left Lower Extremity: Left Full Weight Bearing Gait Training Does the Patient Walk?: Yes Gait Assistive Device: Cane Single Point (coco 3 pt cane) 160ft x 2 SBA to CGA, no LOB, handling cane much better Exercises Supine Ex: Bridging, Ankle pumps, Quad Set, Rolling, Glut sets, Heel Slides, Short Arc Quads, Scooting, Straight leg raise, Hip abd/add (sidelying clam shells) Supine Reps: 15 Assessment Current Status: Good Progress PT Short Term Goals Short Term Goals Time Frame: Feb 20, 2021 Roll Left & Right: 6 Sit to lyin Lying to sitting on side of be: 6 Sit to stand: 6 Chair/yfx-do-mbnnc transfer: 6 PT Mcfp Goals Mcfp Goals PT Donor Relations Coordinator Goals Time Frame: Mar 03, 2021 Roll Left & Right (QC): 6 Sit to Lying (QC): 6 Lying-Sitting on Side/Bed(QC): 6 Sit to Stand (QC): 6 Chair/Ygy-tm-Qwguo Xfer(QC): 6 Toilet Transfer (QC): 6 Car Transfer (QC): 6 Does the Patient Walk: Yes Walk 10 feet (QC): 6 Walk 50ft with 2 Turns (QC): 6 Walk 150 ft (QC): 6 Walking 10ft on Uneven Surface: 6 1 Step (curb) (QC): 6 4 Steps (QC): 6 12 Steps (QC): 6 Picking up an Object (QC): 6 Does the Pt use WC or Scooter?: No Wheel 50 feet with 2 turns (QC: 9 Type: N/A Wheel 150 feet: 9 Type: N/A PT Plan Treatment/Plan Treatment Plan: Continue Plan of Care Treatment Plan: Bed Mobility, Education, Functional Activity Fern, Functional Strength, Group Therapy, Gait, Safety, Therapeutic Exercise, Transfers Treatment Duration: Mar 03, 2021 Frequency: At least 5 of 7 days/Wk (IRF) Estimated Hrs Per Day: 1.5 hours per day Patient and/or Family Agrees t: Yes Safety Risks/Education Patient Education: Gait Training, Transfer Techniques, Correct Positioning, Disease Process, Safety Issues Teaching Recipient: Patient Teaching Methods: Demonstration, Discussion Response to Teaching: Verbalize Understanding, Return Demonstration, Reinforcement Needed Time/GCodes Time In: 1405 Time Out: 1435 Total Billed Treatment Time: 30 Total Billed Treatment 1,GT15m,EX15m AN CHUN PRINCIPLE SOFTWARE ENGINEER Feb 22, 2021 14:52
[2021-02-22 17:40] VITALS: BP 114/80
[2021-02-22] MEDS: MELATONIN 3 MG TABLET PO PRN (23:09)
[2021-02-22] MEDS: HYDROcodone/APAP 5 MG/325 MG (LORTAB) TAB PO PRN (23:09)
[2021-02-23 06:15] VITALS: BP 111/74
[2021-02-23] MEDS: CATHETER FLUSH 10 ML SYR IV SCH ×3 (06:15→20:42)
[2021-02-23 08:00] VITALS: BP 138/93
[2021-02-23] MEDS: ALPRAZolam 0.25 MG (XANAX) TAB PO PRN (08:09)
[2021-02-23] MEDS: CARVEDILOL 6.25 MG (COREG) TAB PO SCH ×2 (08:09→20:42)
[2021-02-23] MEDS: PANTOPRAZOLE 40 MG (PROTONIX) TAB PO SCH (08:09)
[2021-02-23] MEDS: CYCLOBENZAPRINE 10 MG (FLEXERIL) TAB PO SCH (08:09)
[2021-02-23] MEDS: ASPIRIN E.C. 81 MG (ECOTRIN) TAB PO SCH (08:09)
[2021-02-23] MEDS: CLOPIDOGREL 75 MG (PLAVIX) TABLET PO SCH (08:09)
[2021-02-23] MEDS: DOCUSATE SODIUM 100 MG (COLACE) CAP PO SCH ×2 (08:11→19:34)
[2021-02-23] MEDS: polyethylene glycoL POWDER 17 GM (MIRALAX) PACK PO SCH ×2 (08:12→19:34)
[2021-02-23] MEDS: SENNA W/DOCUSATE (SENOKOT S) TABLET PO SCH ×2 (08:12→19:35)
--- NOTE | 2021-02-23 08:20 | Cardiology Progress Note ---
Subjective Date Seen by Provider: Feb 23, 2021 Time Seen by Provider: 09:00 Subjective/Events-last exam Pt doing well, denies CP, SOB, leg swelling or any new complaints. However, pt notes that earlier this morning her pulse was elevated at about 110 bpm, but she was anxious and expecting a phone call. Review of Systems General: No Chills, No Night Sweats, No Fatigue, No Malaise, No Appetite, No Other Pulmonary: No Dyspnea, No Cough, No Pleuritic Chest Pain, No Other Cardiovascular: No: Chest Pain, Palpitations, Orthopnea, Paroxysmal Noc. Dyspnea, Edema, Lt Headedness, Other Objective-Cardiology Exam Last Set of Vital Signs Vital Signs 02/23/21 02/23/21 06:15 08:00 Temp 36.2 Pulse 78 Resp 18 B/P (MAP) 111/74 (86) Pulse Ox 98 O2 Delivery Room Air Capillary Refill : I&O Intake and Output 02/23/21 00:00 Intake Total 1450 ml Output Total 1550 ml Balance -100 ml Intake Oral 1450 ml Output Stool Total 1550 ml # Voids 7 General: Alert, Oriented X3, Cooperative HEENT: Atraumatic, PERRLA Neck: Supple, No JVD, No Thyromegaly Lungs: Clear to Auscultation, Normal Air Movement Heart: Normal S1, Normal S2, No Murmurs, Other (tachycardic) Extremities: No Clubbing, No Cyanosis, No Edema, Normal Pulses, No Tenderness/Swelling Neuro: Normal Gait, Normal Speech Psych/Mental Status: Mental Status NL A/P-Cardiology Admission Diagnosis HTN CAD Sinus Tachycardia Anemia Assessment/Plan Hypertension, well-controlled, continue current regimen of Coreg 6.25 mg Sinus tach and renal insuff, likely due to volume depletion, improved with repletion, continue to monitor labs CAD, h/o cor stenting at [facility] in Oct 2019 (to treat angina, not to treat [place], according to the patient). Last card cath on 03/05/20: patent stents in the mid left circumflex and the mid right coronary arteries. There is moderate diffuse disease of all coronary arteries. There is moderately severe diffuse disease of the distal left anterior descending. A small caliber obtuse marginal has 70% to 80% ostial stenosis. Normal left ventricular end-diastolic pressure. On ASA 81 mg and Plavix 75 mg. Echo of 03/05/20: LVEF 60-65%, mild to mod TR, RVSP 35-40 mmHg, mild dilatation of LA S/p colectomy and ileostomy for intestinal obstruction - subsequent ileostomy reversal in May 2020 Exp lap and small bowel resection and ileostomy in January 2021 Supervisory-Addendum Brief Supervisory Addendum Participated in pt care: history, MDM, physical Personally performed: exam, history, MDM Care discussed with: VANNESSA Notes: Patient was seen at bedside Sitting comfortably No new complaint Blood pressure is well controlled Clinically stable. Continue to monitor Anemia, Monitor H&H ALFIE KOO MED STUDENT Feb 23, 2021 08:20 MALLORY MELLO MD Feb 23, 2021 11:24
--- NOTE | 2021-02-23 09:09 | PM&R Progress Note ---
Subjective HPI/CC On Admission Date Seen by Provider: Feb 23, 2021 Time Seen by Provider: 09:15 Subjective/Events-last exam 02/23/21: Pt ambulating around pretty well Had a social security phone call today of which she has tried to work through some things Jeet will be removed at upcoming appointment when its rescheduled 02/22/21: Pt is in the shower Hgb 8.5 Creatinine is 1.12 Ileostomy is producing some loose stools 02/21/21: No issues Labs tomorrow 02/20/21: Patient feels good [place] intact No pain reported 02/19/21: Improved status Therapy states she is doing well Patient denies any issues 02/18/21: Patient doing well HLIVF Tachy improved Coreg increased dose helping Venofer ordered for iron 29 AP decreased to 237 today Creat 1.16 Jeet look good Review of Systems General: Fatigue, Malaise Neurological: Weakness Objective Exam Vital Signs Vital Signs Date Time Temp Pulse Resp B/P (MAP) Pulse Ox O2 Delivery O2 Flow Rate FiO2 02/23/21 20:45 Room Air 02/23/21 17:07 36.6 97 18 115/72 (86) 97 Capillary Refill : General Appearance: No Apparent Distress, WD/WN, Anxious, Chronically ill HEENT: PERRL/EOMI, Normal ENT Inspection, Pharynx Normal Neck: Full Range of Motion, Normal Inspection, Non Tender, Supple, Carotid Bruit Respiratory: Chest Non Tender, Lungs Clear, Normal Breath Sounds, No Accessory Muscle Use, No Respiratory Distress Cardiovascular: Regular Rate, Rhythm, No Edema, No Gallop, No JVD, No Murmur, Normal Peripheral Pulses, Tachycardia Gastrointestinal: Normal Bowel Sounds, No Organomegaly, No Pulsatile Mass, Non Tender, Soft Back: Normal Inspection, No CVA Tenderness, No Vertebral Tenderness Extremity: Normal Capillary Refill, Normal Inspection, Normal Range of Motion, Non Tender, No Calf Tenderness, No Pedal Edema Neurologic/Psychiatric: Alert, Oriented x3, Normal Mood/Affect, Abnormal Gait, Motor Weakness (generalized all extremities) Skin: Normal Color, Warm/Dry Lymphatic: No Adenopathy Results/Procedures Lab Patient resulted labs reviewed. FIM Transfers Therapy Code Descriptions/Definitions Functional [place] Measure: 0=Not Assessed/NA 4=Minimal Assistance 1=Total Assistance 5=Supervision or Setup 2=Maximal Assistance 6=Modified [place] 3=Moderate Assistance 7=Complete IndependenceSCALE: Activities may be completed with or without assistive devices. 5-Dsyakqsyor-ibnlsgh completes the activity by him/herself with no assistance from a helper. 5-Set-up or Clean-up Assistance-helper sets up or cleans up; patient completes activity. [place] assists only prior to or following the activity. 4-Supervision or Touching Assistance-helper provides verbal cues and/or touching/steadying and/or contact guard assistance as patient completes activity. Assistance may be provided throughout the activity or intermittently. 3-Partial/Moderate Assistance-helper does LESS THAN HALF the effort. [place] lifts, holds or supports trunk or limbs, but provides less than half the effort. 2-Substantial/Maximal Assistance-helper does MORE THAN HALF the effort. [place] lifts or holds trunk or limbs and provides more than half the effort. 1-Koxhhfhvc-msekmt does ALL the effort. Patient does none of the effort to complete the activity. Or, the assistance of 2 or more helpers is required for the patient to complete the activity. If activity was not attempted, code reason: 7-Patient Refused. 9-Not Applicable-not attempted and the patient did not perform the activity before the current illness, exacerbation or injury. 10-Not Attempted due to Environmental Limitations-(lack of equipment, weather restraints, etc.). 88-Not Attempted due to Medical Conditions or Safety Concerns. Roll Left to Right (QC): 6 Sit to Lying (QC): 6 Sit to Stand (QC): 6 Chair/Etp-kh-Uwvzr Xfer(QC): 6 Car Transfer (QC): 4 Gait Training Does the Patient Walk?: Yes Walk 10 feet (QC): 6 Walk 50 ft with 2 Turns(QC): 6 Walk 150 ft (QC): 6 Walking 10ft/uneven surface-QC: 4 Gait Persons Needed: 1 Gait Assistive Device: Cane Single Point ([facility] 3 pt cane) Wheelchair Training Does the Pt Use a Wheelchair?: No Wheel 50 ft with 2 turns (QC): 9 Wheel 150 ft (QC): 9 Type of Wheelchair: N/A Stair Training Stair Training: Handrails/: 2 handrails #of Steps: 12 1 Step (curb) (QC): 5 4 Steps (QC): 5 12 Steps (QC): 5 Stairs: Pattern: Step to Balance Picking up an Object (QC): 4 ADL-Treatment Eating (QC): 6 Oral Hygiene (QC): 5 Bathing Location: L Arm, R Arm, L Upper Leg, R Upper Leg, L Lower Leg (including foot), R Lower Leg (including foot), Chest, Abdomen, Buttocks, Perineal Area Shower/Bathe Self (QC): 4 Upper Body Dressing (QC): 5 Lower Body Dressing (QC): 5 On/Off Footwear (QC): 5 Toileting Hygiene (QC): 5 Toilet Transfer (QC): 4 Assessment/Plan Assessment and Plan Assess & Plan/Chief Complaint Assessment: Debility/Myopathy s/p EMIGDIO 02/07/21 Current tachycardia placed on IVF s/p critical illness and VDRF in March 2020 and 02/07/21 requiring [facility] admit Iliostomy s/p takedown with wound dehiscence and s/p revision 06/2020 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 Anasarca hx Hirsutism Poor albumin level h/o Ascites s/p paracentesis 06/2020 Anemia s/p transfusions 2 units 03/17/20 so will give Venofer for iron level low at 29 02/18/21 Situational depression Anxiety Poor social situation Plan: Monitor closely IVF IRF protocol 02/18/21: HLIVF Venofer 02/19/21: Monitor tachy supportive care 02/20/21: Monitor closely Monitor BP 02/21/21: PO intake good Labs tomorrow 02/22/21: Monitor closely Monitor BP 02/23/21: Monitor BP Monitor ileostomy (1) Myopathy (2) Bowel obstruction Status: Acute (3) Tachycardia (4) Anemia (5) Hirsutism (6) Hyperlipidemia Status: Chronic (7) Abdominal pain Status: Acute (8) Debility (9) Hypertension Status: Chronic (10) Dehydration Status: Acute SESAR BEEBE DO Feb 23, 2021 09:09
[2021-02-23] MEDS: ENOXAPARIN 40 MG/0.4 ML (LOVENOX) SYR SC SCH (10:54)
--- NOTE | 2021-02-23 12:05 | Physical Therapy Daily Note ---
PT Daily Note-Current Subjective Pt sitting at EOB with Nurse present upon arrival. Pt agrees to PT but both pt & Nurse report pt is uneasy about phone conference she will have after tx. Pt is teary and emotional throughout tx. Pt agrees to PT/OT co-treat. Pain Location: No Pain Reported Mental Status Patient Orientation: Person, Place, Time, Situation Attachments: Colostomy/Ileostomy Transfers SCALE: Activities may be completed with or without assistive devices. 3-Ghempcwxka-brjwzyz completes the activity by him/herself with no assistance from a helper. 5-Set-up or Clean-up Assistance-helper sets up or cleans up; patient completes activity. [place] assists only prior to or following the activity. 4-Supervision or Touching Assistance-helper provides verbal cues and/or touching/steadying and/or contact guard assistance as patient completes activity. Assistance may be provided throughout the activity or intermittently. 3-Partial/Moderate Assistance-helper does LESS THAN HALF the effort. [place] lifts, holds or supports trunk or limbs, but provides less than half the effort. 2-Substantial/Maximal Assistance-helper does MORE THAN HALF the effort. [place] lifts or holds trunk or limbs and provides more than half the effort. 8-Dpugmawcm-uervan does ALL the effort. Patient does none of the effort to complete the activity. Or, the assistance of 2 or more helpers is required for the patient to complete the activity. If activity was not attempted, code reason: 7-Patient Refused. 9-Not Applicable-not attempted and the patient did not perform the activity before the current illness, exacerbation or injury. 10-Not Attempted due to Environmental Limitations-(lack of equipment, weather restraints, etc.). 88-Not Attempted due to Medical Conditions or Safety Concerns. Sit to Stand (QC): 6 Toilet Transfer (QC): 6 Weight Bearing Right Lower Extremity: Right Full Weight Bearing Left Lower Extremity: Left Full Weight Bearing Gait Training Does the Patient Walk?: Yes Distance: 150' Walk 10 feet (QC): 5 Walk 50 ft with 2 Turns(QC): 5 Walk 150 ft (QC): 5 Gait Persons Needed: 1 Gait Assistive Device: FWW Wheelchair Training Does the Pt Use a Wheelchair?: No Treatments Pt. seen for co-treatment from PT/OT. While OT facilitated and assisted with ADL skills, PT addressed concerns regarding home situation and set up. Pt. is tearful because she states that her friend, who is also her DPOA, let her know that she will likely have to go to a senior living at discharge because her trailer is unlivable at this time, and she has not been accepted into any housing. PT addresses possible equipment needs, including walker vs. hurri- cane, any stairs she may need to use, and other possible things that may need to be addressed. Pt. very teary due to anxiety from upcoming social security call. Pt. is able to dress self after clothing is retrieved for her. Pt. is also able to empty her own colostomy bag at toilet. Pt. states that she would like to practice with hurri-cane more for increased independence. All needs met. Assessment Current Status: Good Progress Pt is preoccupied due to phone call she will receive shortly. PT Short Term Goals Short Term Goals Time Frame: Feb 20, 2021 Roll Left & Right: 6 Sit to lyin Lying to sitting on side of be: 6 Sit to stand: 6 Chair/iwh-hq-lmvjs transfer: 6 PT Informix Developer Goals Informix Developer Goals PT Informix Developer Goals Time Frame: Mar 03, 2021 Roll Left & Right (QC): 6 Sit to Lying (QC): 6 Lying-Sitting on Side/Bed(QC): 6 Sit to Stand (QC): 6 Chair/Jda-tr-Nvkgy Xfer(QC): 6 Toilet Transfer (QC): 6 Car Transfer (QC): 6 Does the Patient Walk: Yes Walk 10 feet (QC): 6 Walk 50ft with 2 Turns (QC): 6 Walk 150 ft (QC): 6 Walking 10ft on Uneven Surface: 6 1 Step (curb) (QC): 6 4 Steps (QC): 6 12 Steps (QC): 6 Picking up an Object (QC): 6 Does the Pt use WC or Scooter?: No Wheel 50 feet with 2 turns (QC: 9 Type: N/A Wheel 150 feet: 9 Type: N/A PT Plan Problem List Problem List: Activity Tolerance Treatment/Plan Treatment Plan: Continue Plan of Care Treatment Plan: Bed Mobility, Education, Functional Activity Fern, Functional Strength, Group Therapy, Gait, Safety, Therapeutic Exercise, Transfers Treatment Duration: Mar 03, 2021 Frequency: At least 5 of 7 days/Wk (IRF) Estimated Hrs Per Day: 1.5 hours per day Patient and/or Family Agrees t: Yes Safety Risks/Education Patient Education: Gait Training, Correct Positioning Teaching Recipient: Patient Teaching Methods: Discussion Response to Teaching: Verbalize Understanding Time/GCodes Time In: 800 Time Out: 900 Total Billed Treatment Time: 60 Total Billed Treatment 1, FA x3 (45m) & GT (15m) Co-treat with OT for 45m ([id number]) PARTH TONEY PTA Feb 23, 2021 12:05
--- NOTE | 2021-02-23 15:20 | Occupational Ther Daily Note ---
OT Current Status-Daily Note Subjective No pain reported. However, pt. very tearful about current status. She is also expecting phone call from social security. Please see note below. Mental Status/Objective Patient Orientation: Person, Place, Time, Situation Attachments: Colostomy/Ileostomy ADL-Treatment Therapy Code Descriptions/Definitions Functional [place] Measure: 0=Not Assessed/NA 4=Minimal Assistance 1=Total Assistance 5=Supervision or Setup 2=Maximal Assistance 6=Modified [place] 3=Moderate Assistance 7=Complete IndependenceSCALE: Activities may be completed with or without assistive devices. 8-Ctayllskex-whxnlyh completes the activity by him/herself with no assistance from a helper. 5-Set-up or Clean-up Assistance-helper sets up or cleans up; patient completes activity. [place] assists only prior to or following the activity. 4-Supervision or Touching Assistance-helper provides verbal cues and/or touching/steadying and/or contact guard assistance as patient completes activity. Assistance may be provided throughout the activity or intermittently. 3-Partial/Moderate Assistance-helper does LESS THAN HALF the effort. [place] lifts, holds or supports trunk or limbs, but provides less than half the effort. 2-Substantial/Maximal Assistance-helper does MORE THAN HALF the effort. [place] lifts or holds trunk or limbs and provides more than half the effort. 6-Vmakvxuax-kwwrwx does ALL the effort. Patient does none of the effort to complete the activity. Or, the assistance of 2 or more helpers is required for the patient to complete the activity. If activity was not attempted, code reason: 7-Patient Refused. 9-Not Applicable-not attempted and the patient did not perform the activity before the current illness, exacerbation or injury. 10-Not Attempted due to Environmental Limitations-(lack of equipment, weather restraints, etc.). 88-Not Attempted due to Medical Conditions or Safety Concerns. Eating (QC): 6 Oral Hygiene (QC): 4 Upper Body Dressing (QC): 5 Lower Body Dressing (QC): 5 On/Off Footwear: 5 Toileting Hygiene (QC): 6 Toilet Transfer (QC): 4 Other Treatment Pt. seen for co-treatment from PT/OT. While OT facilitated and assisted with ADL skills, PT addressed concerns regarding home situation and set up. Pt. is tearful because she states that her friend, who is also her DPOA, let her know that she will likely have to go to a correction at discharge because her trailer is unlivable at this time, and she has not been accepted into any housing. PT addresses possible equipment needs, including walker vs. hurri- cane, any stairs she may need to use, and other possible things that may need to be addressed. Pt. very teary due to anxiety from upcoming social security call. Pt. is able to dress self after clothing is retrieved for her. Pt. is also able to empty her own colostomy bag at toilet. Pt. states that she would like to practice with hurri-cane more for increased independence. All needs met. Education OT Patient Education: Correct positioning, Exercise program, Modified ADL techniques, Progress toward Goal/Update tx plan, Purpose of tx/functional activities, Reviewed precautions, Rehab process, Transfer techniques Teaching Recipient: Patient Teaching Methods: Demonstration, Discussion Response to Teaching: Verbalize Understanding, Return Demonstration OT Group Home Goals Group Home Goals Time Frame: Mar 03, 2021 Eating (QC): 6 Oral Hygiene (QC): 6 Toileting Hygiene (QC): 6 Shower/Bathe Self (QC): 5 Upper Body Dressing (QC): 6 Lower Body Dressing (QC): 6 On/Off Footwear (QC): 6 Additional Goals: 1-Demonstrate ADL Tasks, 2-Verbalize Understanding, 3-Im proveStrength/[place] 1=Demonstrate adherence to instructed precautions during ADL tasks. 2=Patient will verbalize/demonstrate understanding of assistive devices/modifications for ADL. 3=Patient will improve strength/tolerance for activity to enable patient to perform ADL's. OT Education/Plan Problem List/Assessment Assessment: Decreased Activ Tolerance Discharge Recommendations Plan/Recommendations: Continue POC Treatment Plan/Plan of Care Treatment,Training & Education: Yes Patient would benefit from OT for education, treatment and training to promote independence in ADL's, mobility, safety and/or upper extremity function for ADL's. Plan of Care: ADL Retraining, Functional Mobility, Group Exercise/Act as Ind, UE Funct Exercise/Act Treatment Duration: Mar 03, 2021 Frequency: At least 5 of 7 days/Wk (IRF) Estimated Hrs Per Day: 1.5 hours per day Agreement: Yes Rehab Potential: Good Time/GCodes Start Time: 08:15 Stop Time: 09:00 Total Time Billed (hr/min): 45 Billed Treatment Time 1, ADL x 30minutes, FA x 15minutes Co-treatment with PT. Please see above note for designated roles. PAOLA MENDOZA OT Feb 23, 2021 15:20
--- NOTE | 2021-02-23 15:26 | Occupational Ther Daily Note ---
OT Current Status-Daily Note Subjective No pain reported. Mental Status/Objective Patient Orientation: Person, Place, Time, Situation ADL-Treatment Therapy Code Descriptions/Definitions Functional [place] Measure: 0=Not Assessed/NA 4=Minimal Assistance 1=Total Assistance 5=Supervision or Setup 2=Maximal Assistance 6=Modified [place] 3=Moderate Assistance 7=Complete IndependenceSCALE: Activities may be completed with or without assistive devices. 1-Mvhrwddsvm-sxxaxpx completes the activity by him/herself with no assistance from a helper. 5-Set-up or Clean-up Assistance-helper sets up or cleans up; patient completes activity. [place] assists only prior to or following the activity. 4-Supervision or Touching Assistance-helper provides verbal cues and/or touching/steadying and/or contact guard assistance as patient completes activity. Assistance may be provided throughout the activity or intermittently. 3-Partial/Moderate Assistance-helper does LESS THAN HALF the effort. [place] lifts, holds or supports trunk or limbs, but provides less than half the effort. 2-Substantial/Maximal Assistance-helper does MORE THAN HALF the effort. [place] lifts or holds trunk or limbs and provides more than half the effort. 9-Zsqxzgnkw-jhfiuc does ALL the effort. Patient does none of the effort to complete the activity. Or, the assistance of 2 or more helpers is required for the patient to complete the activity. If activity was not attempted, code reason: 7-Patient Refused. 9-Not Applicable-not attempted and the patient did not perform the activity before the current illness, exacerbation or injury. 10-Not Attempted due to Environmental Limitations-(lack of equipment, weather restraints, etc.). 88-Not Attempted due to Medical Conditions or Safety Concerns. Toileting Hygiene (QC): 6 Toilet Transfer (QC): 4 Other Treatment Pt. ambulated with hurri-cane to therapy gym with SBA. Pt. donned 1 lb. wrist weights and completed series of UE strengthening tasks, including nut/bolt activity and peg activity. Tolerated well for continued increase of overall endurance. All needs met back in room. Education OT Patient Education: Correct positioning, Exercise program, Modified ADL techniques, Progress toward Goal/Update tx plan, Purpose of tx/functional activities, Reviewed precautions, Rehab process, Transfer techniques Teaching Recipient: Patient Teaching Methods: Demonstration, Discussion Response to Teaching: Verbalize Understanding, Return Demonstration OT Supervisor [employer] Goals Supervisor [employer] Goals Time Frame: Mar 03, 2021 Eating (QC): 6 Oral Hygiene (QC): 6 Toileting Hygiene (QC): 6 Shower/Bathe Self (QC): 5 Upper Body Dressing (QC): 6 Lower Body Dressing (QC): 6 On/Off Footwear (QC): 6 Additional Goals: 1-Demonstrate ADL Tasks, 2-Verbalize Understanding, 3- ImproveStrength/[place]ern 1=Demonstrate adherence to instructed precautions during ADL tasks. 2=Patient will verbalize/demonstrate understanding of assistive devices/modifications for ADL. 3=Patient will improve strength/tolerance for activity to enable patient to perform ADL's. OT Education/Plan Problem List/Assessment Assessment: Decreased Activ Tolerance Discharge Recommendations Plan/Recommendations: Continue POC Treatment Plan/Plan of Care Treatment,Training & Education: Yes Patient would benefit from OT for education, treatment and training to promote independence in ADL's, mobility, safety and/or upper extremity function for ADL's. Plan of Care: ADL Retraining, Functional Mobility, Group Exercise/Act as Ind, UE Funct Exercise/Act Treatment Duration: Mar 03, 2021 Frequency: At least 5 of 7 days/Wk (IRF) Estimated Hrs Per Day: 1.5 hours per day Agreement: Yes Rehab Potential: Good Time/GCodes Start Time: 13:00 Stop Time: 13:45 Total Time Billed (hr/min): 45 Billed Treatment Time 1, ADL x 15minutes, FA x 30minutes PAOLA MENDOZA OT Feb 23, 2021 15:26
--- NOTE | 2021-02-23 15:59 | Physical Therapy Daily Note ---
PT Daily Note-Current Subjective Pt sitting in recliner upon arrival. Pt agrees to PT. Pain Location: No Pain Reported Mental Status Patient Orientation: Person, Place, Time, Situation Attachments: Colostomy/Ileostomy Transfers SCALE: Activities may be completed with or without assistive devices. 0-Vwasomrxhw-wnzffzc completes the activity by him/herself with no assistance from a helper. 5-Set-up or Clean-up Assistance-helper sets up or cleans up; patient completes activity. [place] assists only prior to or following the activity. 4-Supervision or Touching Assistance-helper provides verbal cues and/or touching/steadying and/or contact guard assistance as patient completes activity. Assistance may be provided throughout the activity or intermittently. 3-Partial/Moderate Assistance-helper does LESS THAN HALF the effort. [place] lif ts, holds or supports trunk or limbs, but provides less than half the effort. 2-Substantial/Maximal Assistance-helper does MORE THAN HALF the effort. [place] lifts or holds trunk or limbs and provides more than half the effort. 6-Oaigmatqd-oprozb does ALL the effort. Patient does none of the effort to complete the activity. Or, the assistance of 2 or more helpers is required for the patient to complete the activity. If activity was not attempted, code reason: 7-Patient Refused. 9-Not Applicable-not attempted and the patient did not perform the activity before the current illness, exacerbation or injury. 10-Not Attempted due to Environmental Limitations-(lack of equipment, weather restraints, etc.). 88-Not Attempted due to Medical Conditions or Safety Concerns. Sit to Stand (QC): 5 Toilet Transfer (QC): 5 Weight Bearing Right Lower Extremity: Right Full Weight Bearing Left Lower Extremity: Left Full Weight Bearing Gait Training Does the Patient Walk?: Yes Distance: 150' x2 Walk 10 feet (QC): 5 Walk 50 ft with 2 Turns(QC): 5 Walk 150 ft (QC): 5 Gait Persons Needed: 1 Gait Assistive Device: Cane Small Base Quad Wheelchair Training Does the Pt Use a Wheelchair?: No Exercises NuStep Minutes: 15 NuStep Workload: 4 Treatments TF to standing and uses BR. Pt amb. in hallway then uses NuStep before amb. back to room. Pt resting in recliner with all needs met, call light in hand. Assessment Current Status: Good Progress Pt is in better spirits this afternoon. Pt has gained strength and activity tolerance so pt is more independent with tasks. PT Short Term Goals Short Term Goals Time Frame: Feb 20, 2021 Roll Left & Right: 6 Sit to lyin Lying to sitting on side of be: 6 Sit to stand: 6 Chair/buo-do-wggqf transfer: 6 PT Forestry Aid Technician Goals [facility] Goals PT Forestry Aid Technician Goals Time Frame: Mar 03, 2021 Roll Left & Right (QC): 6 Sit to Lying (QC): 6 Lying-Sitting on Side/Bed(QC): 6 Sit to Stand (QC): 6 Chair/Jew-yi-Llsva Xfer(QC): 6 Toilet Transfer (QC): 6 Car Transfer (QC): 6 Does the Patient Walk: Yes Walk 10 feet (QC): 6 Walk 50ft with 2 Turns (QC): 6 Walk 150 ft (QC): 6 Walking 10ft on Uneven Surface: 6 1 Step (curb) (QC): 6 4 Steps (QC): 6 12 Steps (QC): 6 Picking up an Object (QC): 6 Does the Pt use WC or Scooter?: No Wheel 50 feet with 2 turns (QC: 9 Type: N/A Wheel 150 feet: 9 Type: N/A PT Plan Treatment/Plan Treatment Plan: Continue Plan of Care Treatment Plan: Bed Mobility, Education, Functional Activity Fern, Functional Strength, Group Therapy, Gait, Safety, Therapeutic Exercise, Transfers Treatment Duration: Mar 03, 2021 Frequency: At least 5 of 7 days/Wk (IRF) Estimated Hrs Per Day: 1.5 hours per day Patient and/or Family Agrees t: Yes Time/GCodes Time In: 1350 Time Out: 1420 Total Billed Treatment Time: 30 Total Billed Treatment 1, GT (15m) & EX (15m) PARTH TONEY STE[employer] LAYOUT WORKER Feb 23, 2021 15:58
[2021-02-23 17:07] VITALS: BP 115/72
[2021-02-23] MEDS: MELATONIN 3 MG TABLET PO PRN (23:15)
[2021-02-23] MEDS: HYDROcodone/APAP 5 MG/325 MG (LORTAB) TAB PO PRN (23:16)
--- NOTE | 2021-02-24 05:36 | PM&R Progress Note ---
Subjective HPI/CC On Admission Date Seen by Provider: Feb 24, 2021 Subjective/Events-last exam 02/23/21: Pt ambulating around pretty well Had a social security phone call today of which she has tried to work through some things Jeet will be removed at upcoming appointment when its rescheduled 02/22/21: Pt is in the shower Hgb 8.5 Creatinine is 1.12 Ileostomy is producing some loose stools 02/21/21: No issues Labs tomorrow 02/20/21: Patient feels good [place] intact No pain reported 02/19/21: Improved status Therapy states she is doing well Patient denies any issues 02/18/21: Patient doing well HLIVF Tachy improved Coreg increased dose helping Venofer ordered for iron 29 AP decreased to 237 today Creat 1.16 [place] look good Objective Exam Vital Signs Vital Signs Date Time Temp Pulse Resp B/P (MAP) Pulse Ox O2 Delivery O2 Flow Rate FiO2 02/24/21 08:00 Room Air 02/24/21 06:42 36.0 78 16 125/81 (96) 99 Capillary Refill : General Appearance: No Apparent Distress, WD/WN, Anxious, Chronically ill HEENT: PERRL/EOMI, Normal ENT Inspection, Pharynx Normal Neck: Full Range of Motion, Normal Inspection, Non Tender, Supple, Carotid Bruit Respiratory: Chest Non Tender, Lungs Clear, Normal Breath Sounds, No Accessory Muscle Use, No Respiratory Distress Cardiovascular: Regular Rate, Rhythm, No Edema, No Gallop, No JVD, No Murmur, Normal Peripheral Pulses, Tachycardia Gastrointestinal: Normal Bowel Sounds, No Organomegaly, No Pulsatile Mass, Non Tender, Soft Back: Normal Inspection, No CVA Tenderness, No Vertebral Tenderness Extremity: Normal Capillary Refill, Normal Inspection, Normal Range of Motion, Non Tender, No Calf Tenderness, No Pedal Edema Neurologic/Psychiatric: Alert, Oriented x3, Normal Mood/Affect, Abnormal Gait, Motor Weakness (generalized all extremities) Skin: Normal Color, Warm/Dry Lymphatic: No Adenopathy Results/Procedures Lab Patient resulted labs reviewed. FIM Transfers Therapy Code Descriptions/Definitions Functional [place] Measure: 0=Not Assessed/NA 4=Minimal Assistance 1=Total Assistance 5=Supervision or Setup 2=Maximal Assistance 6=Modified [place] 3=Moderate Assistance 7=Complete IndependenceSCALE: Activities may be completed with or without assistive devices. 3-Vfgozfzgtc-pcwxpzi completes the activity by him/herself with no assistance from a helper. 5-Set-up or Clean-up Assistance-helper sets up or cleans up; patient completes a ctivity. [place] assists only prior to or following the activity. 4-Supervision or Touching Assistance-helper provides verbal cues and/or touching/steadying and/or contact guard assistance as patient completes activity. Assistance may be provided throughout the activity or intermittently. 3-Partial/Moderate Assistance-helper does LESS THAN HALF the effort. [place] lifts, holds or supports trunk or limbs, but provides less than half the effort. 2-Substantial/Maximal Assistance-helper does MORE THAN HALF the effort. [place] lifts or holds trunk or limbs and provides more than half the effort. 0-Pijwbrwwj-vxslcc does ALL the effort. Patient does none of the effort to complete the activity. Or, the assistance of 2 or more helpers is required for the patient to complete the activity. If activity was not attempted, code reason: 7-Patient Refused. 9-Not Applicable-not attempted and the patient did not perform the activity before the current illness, exacerbation or injury. 10-Not Attempted due to Environmental Limitations-(lack of equipment, weather restraints, etc.). 88-Not Attempted due to Medical Conditions or Safety Concerns. Roll Left to Right (QC): 6 Sit to Lying (QC): 6 Sit to Stand (QC): 5 Chair/Jpe-hb-Qwidk Xfer(QC): 6 Car Transfer (QC): 4 Gait Training Does the Patient Walk?: Yes Distance: 150' x2 Walk 10 feet (QC): 5 Walk 50 ft with 2 Turns(QC): 5 Walk 150 ft (QC): 5 Walking 10ft/uneven surface-QC: 4 Gait Persons Needed: 1 Gait Assistive Device: Cane Small Base Quad Wheelchair Training Does the Pt Use a Wheelchair?: No Wheel 50 ft with 2 turns (QC): 9 Wheel 150 ft (QC): 9 Type of Wheelchair: N/A Stair Training Stair Training: Handrails/: 2 handrails #of Steps: 12 1 Step (curb) (QC): 5 4 Steps (QC): 5 12 Steps (QC): 5 Stairs: Pattern: Step to Balance Picking up an Object (QC): 4 ADL-Treatment Eating (QC): 6 Oral Hygiene (QC): 4 Bathing Location: L Arm, R Arm, L Upper Leg, R Upper Leg, L Lower Leg (including foot), R Lower Leg (including foot), Chest, Abdomen, Buttocks, Perineal Area Shower/Bathe Self (QC): 4 Upper Body Dressing (QC): 5 Lower Body Dressing (QC): 5 On/Off Footwear (QC): 5 Toileting Hygiene (QC): 6 Toilet Transfer (QC): 4 Assessment/Plan Assessment and Plan Assess & Plan/Chief Complaint Assessment: Debility/Myopathy s/p EMIGDIO 02/07/21 Current tachycardia placed on IVF s/p critical illness and VDRF in March 2020 and 02/07/21 requiring [facility] admit Iliostomy s/p takedown with wound dehiscence and s/p revision 06/2020 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 Anasarca hx Hirsutism Poor albumin level h/o Ascites s/p paracentesis 06/2020 Anemia s/p transfusions 2 units 03/17/20 so will give Venofer for iron level low at 29 02/18/21 Situational depression Anxiety Poor social situation Plan: Monitor closely IVF IRF protocol 02/18/21: HLIVF Venofer 02/19/21: Monitor tachy supportive care 02/20/21: Monitor closely Monitor BP 02/21/21: PO intake good Labs tomorrow 02/22/21: Monitor closely Monitor BP 02/23/21: Monitor BP Monitor ileostomy (1) Myopathy (2) Bowel obstruction Status: Acute (3) Tachycardia (4) Anemia (5) Hirsutism (6) Hyperlipidemia Status: Chronic (7) Abdominal pain Status: Acute (8) Debility (9) Hypertension Status: Chronic (10) Dehydration Status: Acute SESAR BEEBE DO Feb 24, 2021 05:36
[2021-02-24] MEDS: CATHETER FLUSH 10 ML SYR IV SCH (05:57)
[2021-02-24 06:42] VITALS: BP 125/81
[2021-02-24] MEDS: polyethylene glycoL POWDER 17 GM (MIRALAX) PACK PO SCH (07:51)
[2021-02-24] MEDS: DOCUSATE SODIUM 100 MG (COLACE) CAP PO SCH (07:51)
[2021-02-24] MEDS: SENNA W/DOCUSATE (SENOKOT S) TABLET PO SCH (07:52)
--- NOTE | 2021-02-24 08:00 | Cardiology Progress Note ---
Subjective Date Seen by Provider: Feb 24, 2021 Time Seen by Provider: 07:55 Subjective/Events-last exam Pt doing well, no new complaints. Anxiety improved from yesterday. BP 125/81. Review of Systems General: No Chills, No Night Sweats, No Fatigue, No Malaise, No Appetite, No Other Pulmonary: No Dyspnea, No Cough, No Pleuritic Chest Pain, No Other Cardiovascular: No: Chest Pain, Palpitations, Orthopnea, Paroxysmal Noc. Dyspnea, Edema, Lt Headedness, Other Objective-Cardiology Exam Last Set of Vital Signs Vital Signs 02/24/21 13:26 Temp 36.0 Pulse 78 Resp 16 B/P (MAP) 125/81 Pulse Ox 99 O2 Delivery Room Air Capillary Refill : I&O Intake and Output 02/24/21 00:00 Intake Total 1950 ml Output Total 725 ml Balance 1225 ml Intake Oral 1950 ml Output Stool Total 725 ml # Voids 6 General: Alert, Oriented X3, Cooperative, No Acute Distress HEENT: Atraumatic, PERRLA, EOMI Neck: Supple, No JVD, No Thyromegaly Lungs: Clear to Auscultation, Normal Air Movement Heart: Regular Rate, Normal S1, Normal S2, No Murmurs Extremities: No Clubbing, No Cyanosis, No Edema, Normal Pulses, No Tenderness/Swelling Neuro: Normal Gait, Normal Speech Psych/Mental Status: Mental Status NL, Mood NL A/P-Cardiology Admission Diagnosis HTN CAD Sinus Tachycardia Anemia Assessment/Plan Hypertension, well-controlled, continue current regimen of Coreg 6.25 mg Sinus tach and renal insuff, likely due to volume depletion, improved with repletion, continue to monitor labs CAD, h/o cor stenting at [facility] in Oct 2019 (to treat angina, not to treat [place], according to the patient). Last card cath on 03/05/20: patent stents in the mid left circumflex and the mid right coronary arteries. There is moderate diffuse disease of all coronary arteries. There is moderately severe diffuse disease of the distal left anterior descending. A small caliber obtuse marginal has 70% to 80% ostial stenosis. Normal left ventricular end-diastolic pressure. On ASA 81 mg and Plavix 75 mg. Echo of 03/05/20: LVEF 60-65%, mild to mod TR, RVSP 35-40 mmHg, mild dilatation of LA S/p colectomy and ileostomy for intestinal obstruction - subsequent ileostomy reversal in May 2020 Exp lap and small bowel resection and ileostomy in January 2021 Supervisory-Addendum Brief Supervisory Addendum Participated in pt care: history, MDM, physical Personally performed: exam, history, MDM Care discussed with: PA Notes: Patient is being discharged today. No changes were recommended Discussed the management plan with the medical student ALFIE KOO STUDENT Feb 24, 2021 08:00 MALLORY MELLO MD Feb 24, 2021 16:16
[2021-02-24] MEDS: ASPIRIN E.C. 81 MG (ECOTRIN) TAB PO SCH (08:30)
[2021-02-24] MEDS: PANTOPRAZOLE 40 MG (PROTONIX) TAB PO SCH (08:30)
[2021-02-24] MEDS: CLOPIDOGREL 75 MG (PLAVIX) TABLET PO SCH (08:30)
[2021-02-24] MEDS: CYCLOBENZAPRINE 10 MG (FLEXERIL) TAB PO SCH (08:30)
[2021-02-24] MEDS: IRON SUCROSE 200 MG/10 ML (VENOFER) VIAL IV SCH (08:30)
[2021-02-24] MEDS: CARVEDILOL 6.25 MG (COREG) TAB PO SCH (08:30)
[2021-02-24] MEDS ORDERED: CARV6.252 PO (09:37)
[2021-02-24] MEDS ORDERED: ALPR0.25 PO (09:37)
--- NOTE | 2021-02-24 09:37 | Physical Therapy Daily Note ---
PT Daily Note-Current Subjective Agreeable to PT. Mental Status Patient Orientation: Person, Place, Time, Situation Transfers SCALE: Activities may be completed with or without assistive devices. 4-Swsrxxekew-vypyxql completes the activity by him/herself with no assistance from a helper. 5-Set-up or Clean-up Assistance-helper sets up or cleans up; patient completes activity. [place] assists only prior to or following the activity. 4-Supervision or Touching Assistance-helper provides verbal cues and/or touching/steadying and/or contact guard assistance as patient completes activity. Assistance may be provided throughout the activity or intermittently. 3-Partial/Moderate Assistance-helper does LESS THAN HALF the effort. [place] lifts, holds or supports trunk or limbs, but provides less than half the effort. 2-Substantial/Maximal Assistance-helper does MORE THAN HALF the effort. [place] lifts or holds trunk or limbs and provides more than half the effort. 8-Zovxlfgdo-xajljz does ALL the effort. Patient does none of the effort to complete the activity. Or, the assistance of 2 or more helpers is required for the patient to complete the activity. If activity was not attempted, code reason: 7-Patient Refused. 9-Not Applicable-not attempted and the patient did not perform the activity before the current illness, exacerbation or injury. 10-Not Attempted due to Environmental Limitations-(lack of equipment, weather restraints, etc.). 88-Not Attempted due to Medical Conditions or Safety Concerns. Roll Left & Right (QC): 6 Sit to Lying (QC): 6 Lying to Sitting/Side of Bed(Q: 6 Sit to Stand (QC): 6 Chair/Guj-sc-Kqmnz Xfer(QC): 6 Toilet Transfer (QC): 6 Car Transfer (QC): 6 Weight Bearing Right Lower Extremity: Right Full Weight Bearing Left Lower Extremity: Left Full Weight Bearing Gait Training Does the Patient Walk?: Yes Walk 10 feet (QC): 6 Walk 50 ft with 2 Turns(QC): 6 Walk 150 ft (QC): 6 Walking 10ft/uneven surface-QC: 6 Gait Assistive Device: Cane Single Point Wheelchair Training Does the Pt Use a Wheelchair?: No Stair Training 1 Step (curb) (QC): 4 (without handrail with SPC; SBA for safety) 4 Steps (QC): 6 (using handrail) 12 Steps (QC): 6 (using handrail) Stairs: Pattern: Reciprocal Balance Picking up an Object (QC): 4 Treatments Functional assessment complete. Assessment Current Status: Excellent Progress Pt has made excellent progress. Meeting PT goals. PT Short Term Goals Short Term Goals Time Frame: Feb 20, 2021 Roll Left & Right: 6 Sit to lyin Lying to sitting on side of be: 6 Sit to stand: 6 Chair/jwg-yj-alxbo transfer: 6 PT [facility] Goals Skilled Nursing Goals PT Skilled Nursing Goals Time Frame: Mar 03, 2021 Roll Left & Right (QC): 6 (met) Sit to Lying (QC): 6 (met) Lying-Sitting on Side/Bed(QC): 6 (met) Sit to Stand (QC): 6 (met) Chair/Oqr-gs-Vzroh Xfer(QC): 6 (met) Toilet Transfer (QC): 6 (met) Car Transfer (QC): 6 (met) Does the Patient Walk: Yes Walk 10 feet (QC): 6 (met) Walk 50ft with 2 Turns (QC): 6 (met) Walk 150 ft (QC): 6 (met) Walking 10ft on Uneven Surface: 6 (met) 1 Step (curb) (QC): 6 (scored 4) 4 Steps (QC): 6 (met) 12 Steps (QC): 6 (met) Picking up an Object (QC): 6 (scored 4) Does the Pt use WC or Scooter?: No Wheel 50 feet with 2 turns (QC: 9 Type: N/A Wheel 150 feet: 9 Type: N/A PT Plan Problem List Problem List: Activity Tolerance Treatment/Plan Treatment Plan: Continue Plan of Care (possible dC this date) Treatment Plan: Bed Mobility, Education, Functional Activity [place], Functional Strength, Group Therapy, Gait, Safety, Therapeutic Exercise, Transfers Treatment Duration: Mar 03, 2021 Frequency: At least 5 of 7 days/Wk (IRF) Estimated Hrs Per Day: 1.5 hours per day Patient and/or Family Agrees t: Yes Safety Risks/Education Patient Education: Safety Issues Teaching Recipient: Patient Teaching Methods: Discussion Response to Teaching: Return Demonstration Time/GCodes Time In: 900 Time Out: 925 Total Billed Treatment Time: 25 Total Billed Treatment visit FA 25 LEYDA GHOSH PT Feb 24, 2021 09:37
--- NOTE | 2021-02-24 09:38 | Discharge Summary ---
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 Anasarca hx Hirsutism Poor albumin level h/o Ascites s/p paracentesis 06/2020 Anemia s/p transfusions 2 units 03/17/20 so will give Venofer for iron level low at 29 02/18/21 Situational depression Anxiety Poor social situation Plan: Monitor closely IVF IRF protocol 02/18/21: HLIVF Venofer 02/19/21: Monitor tachy supportive care 02/20/21: Monitor closely Monitor BP 02/21/21: PO intake good Labs tomorrow 02/22/21: Monitor closely Monitor BP 02/23/21: Monitor BP Monitor ileostomy (1) Myopathy (2) Bowel obstruction Status: Acute (3) Tachycardia (4) Anemia (5) Hirsutism (6) Hyperlipidemia Status: Chronic (7) Abdominal pain Status: Acute (8) Debility (9) Hypertension Status: Chronic (10) Dehydration Status: Acute Discharge Summary Discharge Physical Examination Allergies: Coded Allergies: No Known Drug Allergies (Unverified , 11/11/19) Vitals & I&Os Vital Signs Date Time Temp Pulse Resp B/P (MAP) Pulse Ox O2 Delivery O2 Flow Rate FiO2 02/24/21 13:26 36.0 78 16 125/81 99 Room Air General Appearance: Alert, Oriented X3, Cooperative Respiratory: Clear to Auscultation Cardiovascular: Regular Rate Neuro: Normal Gait Psych/Mental Status: Mental Status NL Hospital Course Was the Problem List Reviewed?: Yes Hospital course: Pt had an uneventful week hospital course, she was admitted, placed on IV fluids for tachycardia and medication was evaluated and modified per cardiology, ileostomy was functioning well, no evidence of any other issues during the hospital stay and she was discharged to intermediate for long-term care. Labs (last 24 hrs) Laboratory Tests 02/17/21 10:40: White Blood Count 11.9H, Red Blood Count 3.69L, Hemoglobin 10.4L, Hematocrit 32L , Mean Corpuscular Volume 86, Mean Corpuscular Hemoglobin 28, Mean Corpuscular Hemoglobin Concent 33, Red Cell Distribution Width 14.0, Platelet Count 538H, Mean Platelet Volume 8.9L, Immature Granulocyte % (Auto) 2, Neutrophils (%) (Auto) 82H, Lymphocytes (%) (Auto) 8L, Monocytes (%) (Auto) 8, Eosinophils (%) (Auto) 1, Basophils (%) (Auto) 0, Neutrophils # (Auto) 9.7H, Lymphocytes # (Auto ) 0.9L, Monocytes # (Auto) 0.9, Eosinophils # (Auto) 0.1, Basophils # (Auto) 0.0, Immature Granulocyte # (Auto) 0.2H, Neutrophils % (Manual) 85, Lymphocytes % (Manual) 9, Monocytes % (Manual) 6, Blood Morphology Comment NORMAL, Sodium Level 134L, Potassium Level 4.1, Chloride Level 98, Carbon Dioxide Level 21, Anion Gap 15H, Blood Urea Nitrogen 39H, Creatinine 1.48H, Estimat Glomerular Filtration Rate 37, BUN/Creatinine Ratio 26, Glucose Level 128H, Calcium Level 9.3, Corrected Calcium 9.5, Iron Level 29L, Total Bilirubin 0.4, Aspartate Amino Transf (AST/SGOT) 31, Alanine Aminotransferase (ALT/SGPT) 74H, Alkaline Phosphatase 342H, Total Protein 7.9, Albumin 3.7, Thyroid Stimulating Hormone (TSH) 2.67 02/18/21 05:30: White Blood Count 7.5, Red Blood Count 2.93L, Hemoglobin 8.2#L, Hematocrit 25L, Mean Corpuscular Volume 86, Mean Corpuscular Hemoglobin 28, Mean Corpuscular Hemoglobin Concent 33, Red Cell Distribution Width 14.0, Platelet Count 382, Mean Platelet Volume 8.7L, Immature Granulocyte % (Auto) 2, Neutrophils (%) (Auto) 74, Lymphocytes (%) (Auto) 12, Monocytes (%) (Auto) 10, Eosinophils (%) (Auto) 2, Basophils (%) (Auto) 0, Neutrophils # (Auto) 5.5, Lymphocytes # (Auto) 0.9L, Monocytes # (Auto) 0.7, Eosinophils # (Auto) 0.2, Basophils # (Auto) 0.0, Immature Granulocyte # (Auto) 0.2H, Sodium Level 135, Potassium Level 3.8, Chloride Level 106, Carbon Dioxide Level 19L, Anion Gap 10, Blood Urea Nitrogen 36H, Creatinine 1.16, Estimat Glomerular Filtration Rate 49, BUN/Creatinine Ratio 31, Glucose Level 101, Calcium Level 8.1L, Corrected Calcium 9.0, Total Bilirubin 0.3, Aspartate Amino Transf (AST/SGOT) 28, Alanine Aminotransferase (ALT/SGPT) 52, Alkaline Phosphatase 237H, Total Protein 6.0L, Albumin 2.9L 02/22/21 05:40: White Blood Count 8.0, Red Blood Count 3.08L, Hemoglobin 8.5L, Hematocrit 27L, Mean Corpuscular Volume 86, Mean Corpuscular Hemoglobin 28, Mean Corpuscular Hemoglobin Concent 32, Red Cell Distribution Width 14.0, Platelet Count 458H, Mean Platelet Volume 9.0, Immature Granulocyte % (Auto) 2, Neutrophils (%) (Auto) 67, Lymphocytes (%) (Auto) 17, Monocytes (%) (Auto) 12, Eosinophils (%) (Auto) 3, Basophils (%) (Auto) 1, Neutrophils # (Auto) 5.3, Lymphocytes # (Auto) 1.3, Monocytes # (Auto) 0.9, Eosinophils # (Auto) 0.3, Basophils # (Auto) 0.0, Immature Granulocyte # (Auto) 0.1, Sodium Level 134L, Potassium Level 3.6, Chloride Level 100, Carbon Dioxide Level 20L, Anion Gap 14, Blood Urea Nitrogen 42H, Creatinine 1.12, Estimat Glomerular Filtration Rate 51, BUN/Creatinine Ratio 38, Glucose Level 89, Calcium Level 8.5, Corrected Calcium 9.3, Total Bilirubin 0.3, Aspartate Amino Transf (AST/SGOT) 17, Alanine Aminotransferase (ALT/SGPT) 29, Alkaline Phosphatase 172H, Total Protein 6.5, Albumin 3.0L 02/23/21 12:00: Coronavirus 2019 ([facility]) Negative Pending Labs Laboratory Tests 02/17/21 10:40: White Blood Count 11.9, Red Blood Count 3.69, Hemoglobin 10.4, Hematocrit 32, Mean Corpuscular Volume 86, Mean Corpuscular Hemoglobin 28, Mean Corpuscular Hemoglobin Concent 33, Red Cell Distribution Width 14.0, Platelet Count 538, Mean Platelet Volume 8.9, Immature Granulocyte % (Auto) 2, Neutrophils (%) (Auto) 82, Lymphocytes (%) (Auto) 8, Monocytes (%) (Auto) 8, Eosinophils (%) (Auto) 1, Basophils (%) (Auto) 0, Neutrophils # (Auto) 9.7, Lymphocytes # (Auto) 0.9, Monocytes # (Auto) 0.9, Eosinophils # (Auto) 0.1, Basophils # (Auto) 0.0, Immature Granulocyte # (Auto) 0.2, Neutrophils % (Manual) 85, Lymphocytes % (Manual) 9, Monocytes % (Manual) 6, Blood Morphology Comment NORMAL, Sodium Level 134, Potassium Level 4.1, Chloride Level 98, Carbon Dioxide Level 21, Anion Gap 15, Blood Urea Nitrogen 39, Creatinine 1.48, Estimat Glomerular Filtration Rate 37, BUN/Creatinine Ratio 26, Glucose Level 128, Calcium Level 9.3, Corrected Calcium 9.5, Iron Level 29, Total Bilirubin 0.4, Aspartate Amino Transf (AST/SGOT) 31, Alanine Aminotransferase (ALT/SGPT) 74, Alkaline Phosphatase 342, Total Protein 7.9, Albumin 3.7, Thyroid Stimulating Hormone (TSH) 2.67 02/18/21 05:30: White Blood Count 7.5, Red Blood Count 2.93, Hemoglobin 8.2, Hematocrit 25, Mean Corpuscular Volume 86, Mean Corpuscular Hemoglobin 28, Mean Corpuscular Hemoglobin Concent 33, Red Cell Distribution Width 14.0, Platelet Count 382, Mean Platelet Volume 8.7, Immature Granulocyte % (Auto) 2, Neutrophils (%) (Auto) 74, Lymphocytes (%) (Auto) 12, Monocytes (%) (Auto) 10, Eosinophils (%) (Auto) 2, Basophils (%) (Auto) 0, Neutrophils # (Auto) 5.5, Lymphocytes # (Auto) 0.9, Monocytes # (Auto) 0.7, Eosinophils # (Auto) 0.2, Basophils # (Auto) 0.0, Immature Granulocyte # (Auto) 0.2, Sodium Level 135, Potassium Level 3.8, Chloride Level 106, Carbon Dioxide Level 19, Anion Gap 10, Blood Urea Nitrogen 36, Creatinine 1.16, Estimat Glomerular Filtration Rate 49, BUN/Creatinine Ratio 31, Glucose Level 101, Calcium Level 8.1, Corrected Calcium 9.0, Total Bilirubin 0.3, Aspartate Amino Transf (AST/SGOT) 28, Alanine Aminotransferase (ALT/SGPT) 52, Alkaline Phosphatase 237, Total Protein 6.0, Albumin 2.9 02/22/21 05:40: White Blood Count 8.0, Red Blood Count 3.08, Hemoglobin 8.5, Hematocrit 27, Mean Corpuscular Volume 86, Mean Corpuscular Hemoglobin 28, Mean Corpuscular Hemoglobin Concent 32, Red Cell Distribution Width 14.0, Platelet Count 458, Mean Platelet Volume 9.0, Immature Granulocyte % (Auto) 2, Neutrophils (%) (Auto) 67, Lymphocytes (%) (Auto) 17, Monocytes (%) (Auto) 12, Eosinophils (%) (Auto) 3, Basophils (%) (Auto) 1, Neutrophils # (Auto) 5.3, Lymphocytes # (Auto) 1.3, Monocytes # (Auto) 0.9, Eosinophils # (Auto) 0.3, Basophils # (Auto) 0.0, Immature Granulocyte # (Auto) 0.1, Sodium Level 134, Potassium Level 3.6, Chloride Level 100, Carbon Dioxide Level 20, Anion Gap 14, Blood Urea Nitrogen 42, Creatinine 1.12, Estimat Glomerular Filtration Rate 51, BUN/Creatinine Ratio 38, Glucose Level 89, Calcium Level 8.5, Corrected Calcium 9.3, Total Bilirubin 0.3, Aspartate Amino Transf (AST/SGOT) 17, Alanine Aminotransferase (ALT/SGPT) 29, Alkaline Phosphatase 172, Total Protein 6.5, Albumin 3.0 02/23/21 12:00: Coronavirus 2019 ([facility]) Negative Discharge Home Medications: Active Scripts Active Carvedilol 6.25 Mg Tablet 6.25 Mg PO BID 30 Days Xanax (Alprazolam) 0.25 Mg Tablet 0.25 Mg PO Q8H PRN Reported Ondansetron Odt (Ondansetron) 4 Mg Tab.rapdis 4 Mg PO Q8H PRN Cyclobenzaprine HCl 10 Mg Tablet 10 Mg PO HS PRN Plavix (Clopidogrel Bisulfate) 75 Mg Tablet 75 Mg PO DAILY Aspirin EC (Aspirin) 81 Mg Tablet.dr 81 Mg PO DAILY Pantoprazole Sodium 40 Mg Tablet.dr 40 Mg PO DAILY Instructions to patient/family Please see electronic discharge instructions given to patient. Diagnosis/Problems Diagnosis/Problems (1) Myopathy (2) Bowel obstruction Status: Acute (3) Tachycardia (4) Anemia (5) Hirsutism (6) Hyperlipidemia Status: Chronic (7) Abdominal pain Status: Acute (8) Debility (9) Hypertension Status: Chronic (10) Dehydration Status: Acute SESAR BEEBE DO Feb 24, 2021 09:37
--- NOTE | 2021-02-24 09:41 | Therapy Team Discharge Summary ---
Therapy Discharge Summary Discharge Recommendations Date of Discharge 02/24/21 Physical Therapy This patient admitted to ARU post acute hospital stay due to chronic SBO, s/p ex lap with resection end ileostomy. Prior to the acute hospital stay, she was living alone at an indep level. Upon admission to this unit, she was grossly SBA with all functional bed mobility, transfers, gait and steps. Treatment has focused on functional strength, gait, balance, functional activity tolerance progression and transition to use of a cane for ambulation. She has made excellent progress and is indep with bed mobility and transfers and mod indep with gait using a SPT. She is indep on steps, SBA on a curb step since there is not a handrail to a curb. She is meeting goals to a satisfactory level. She may benefit from continued skilled intervention upon discharge to increase functional gait distance, increase functional activity tolernace and continue to progress gait to walk without an AD as she did prior. In addition, she would benefit from high level dynamic balance training to decrease fall risk and restore her ability to safely interact in her community. Will DC from ARU this date due to discharge from our facility. Occupational Therapy Decreased Activ Tolerance PT Care Home Goals Erosion Control Coordinator Goals PT Care Home Goals Time Frame: Mar 03, 2021 Roll Left to Right (QC): 6 (met) Sit to Lying (QC): 6 (met) Lying-Sitting on Side/Bed(QC): 6 (met) Sit to Stand (QC): 6 (met) Chair/Ctj-zn-Qvfum Xfer(QC): 6 (met) Car Transfer (QC): 6 (met) Does the Patient Walk: Yes Walk 10 feet (QC): 6 (met) Walk 10ft-Uneven Surface(QC): 6 (met) Walk 50ft with 2 Turns (QC): 6 (met) Walk 150 ft (QC): 6 (met) Does the Pt use WC or Scooter?: No Wheel 50 feet with 2 turns (QC: 9 1 Step (curb) (QC): 6 (scored 4) 4 Steps (QC): 6 (met) 12 Steps (QC): 6 (met) Picking up an Object (QC): 6 (scored 4) OT Care Home Goals Erosion Control Coordinator Goals Time Frame: Mar 03, 2021 Eating (QC): 6 Oral Hygiene (QC): 6 Shower/Bathe Self (QC): 5 Upper Body Dressing (QC): 6 Lower Body Dressing (QC): 6 On/Off Footwear (QC): 6 Toileting Hygiene (QC): 6 Toilet/Commode Transfer (QC): 6 (met) Additional Goals: 1-Demonstrate ADL Tasks, 2-Verbalize Understanding, 3- ImproveStrength/Fern 1=Demonstrate adherence to instructed precautions during ADL tasks. 2=Patient will verbalize/demonstrate understanding of assistive devices/modifications for ADL. 3=Patient will improve strength/tolerance for activity to enable patient to perform ADL's. LEYDA GHOSH PT Feb 24, 2021 09:41
[2021-02-24] MEDS: ALPRAZolam 0.25 MG (XANAX) TAB PO PRN (10:39)
--- NOTE | 2021-02-24 11:04 | Occupational Ther Daily Note ---
OT Current Status-Daily Note Subjective No pain reported. Mental Status/Objective Patient Orientation: Person, Place, Time, Situation ADL-Treatment Therapy Code Descriptions/Definitions Functional [place] Measure: 0=Not Assessed/NA 4=Minimal Assistance 1=Total Assistance 5=Supervision or Setup 2=Maximal Assistance 6=Modified [place] 3=Moderate Assistance 7=Complete IndependenceSCALE: Activities may be completed with or without assistive devices. 9-Iasujzeolu-ciatxfw completes the activity by him/herself with no assistance from a helper. 5-Set-up or Clean-up Assistance-helper sets up or cleans up; patient completes activity. [place] assists only prior to or following the activity. 4-Supervision or Touching Assistance-helper provides verbal cues and/or touching/steadying and/or contact guard assistance as patient completes activity. Assistance may be provided throughout the activity or intermittently. 3-Partial/Moderate Assistance-helper does LESS THAN HALF the effort. [place] lifts, holds or supports trunk or limbs, but provides less than half the effort. 2-Substantial/Maximal Assistance-helper does MORE THAN HALF the effort. [place] lifts or holds trunk or limbs and provides more than half the effort. 6-Yszrztmxi-bmqvxv does ALL the effort. Patient does none of the effort to complete the activity. Or, the assistance of 2 or more helpers is required for the patient to complete the activity. If activity was not attempted, code reason: 7-Patient Refused. 9-Not Applicable-not attempted and the patient did not perform the activity before the current illness, exacerbation or injury. 10-Not Attempted due to Environmental Limitations-(lack of equipment, weather restraints, etc.). 88-Not Attempted due to Medical Conditions or Safety Concerns. Eating (QC): 6 Oral Hygiene (QC): 6 Shower/Bathe Self (QC): 6 Upper Body Dressing (QC): 6 Lower Body Dressing (QC): 6 On/Off Footwear: 6 Toileting Hygiene (QC): 6 Toilet Transfer (QC): 6 Education OT Patient Education: Correct positioning, Modified ADL techniques, Progress toward Goal/Update tx plan, Purpose of tx/functional activities, Reviewed precautions, Rehab process, Transfer techniques Teaching Recipient: Patient Teaching Methods: Demonstration, Discussion Response to Teaching: Verbalize Understanding, Return Demonstration OT [facility] Goals Consulting Technical Manager Goals Time Frame: Mar 03, 2021 Eating (QC): 6 Oral Hygiene (QC): 6 Toileting Hygiene (QC): 6 Shower/Bathe Self (QC): 5 Upper Body Dressing (QC): 6 Lower Body Dressing (QC): 6 On/Off Footwear (QC): 6 Additional Goals: 1-Demonstrate ADL Tasks, 2-Verbalize Understanding, 3- ImproveStrength/Fern 1=Demonstrate adherence to instructed precautions during ADL tasks. 2=Patient will verbalize/demonstrate understanding of assistive devices/modifications for ADL. 3=Patient will improve strength/tolerance for activity to enable patient to perform ADL's. OT Education/Plan Problem List/Assessment Assessment: Decreased Activ Tolerance Discharge Recommendations Plan/Recommendations: Continue POC Treatment Plan/Plan of Care Treatment,Training & Education: Yes Patient would benefit from OT for education, treatment and training to promote independence in ADL's, mobility, safety and/or upper extremity function for ADL's. Plan of Care: ADL Retraining, Functional Mobility, Group Exercise/Act as Ind, UE Funct Exercise/Act Treatment Duration: Mar 03, 2021 Frequency: At least 5 of 7 days/Wk (IRF) Estimated Hrs Per Day: 1.5 hours per day Agreement: Yes Rehab Potential: Good Time/GCodes Start Time: 09:25 Stop Time: 10:00 Total Time Billed (hr/min): 35 Billed Treatment Time 1, ADL x 2 PAOLA MENDOZA OT Feb 24, 2021 11:04
--- NOTE | 2021-02-24 11:08 | Therapy Team Discharge Summary ---
Therapy Discharge Summary Discharge Recommendations Date of Discharge 02-24-21 Therapy D/C Recommendations: Residential (TCU/NH) Occupational Therapy Pt. has been seen by OT to work on increased independence with daily skills. Pt. doing well. Pt. is able to complete ADLs with Mod I. She is able to shower, dress, and empty her colostomy independently. Pt. is to transfer to skilled unit for continued strengthening. No equipment needed at this time. Decreased Activ Tolerance PT Return To Factory Clerk Goals Return To Factory Clerk Goals PT Return To Factory Clerk Goals Time Frame: Mar 03, 2021 Roll Left to Right (QC): 6 (met) Sit to Lying (QC): 6 (met) Lying-Sitting on Side/Bed(QC): 6 (met) Sit to Stand (QC): 6 (met) Chair/Dny-hx-Szfgu Xfer(QC): 6 (met) Car Transfer (QC): 6 (met) Does the Patient Walk: Yes Walk 10 feet (QC): 6 (met) Walk 10ft-Uneven Surface(QC): 6 (met) Walk 50ft with 2 Turns (QC): 6 (met) Walk 150 ft (QC): 6 (met) Does the Pt use WC or Scooter?: No Wheel 50 feet with 2 turns (QC: 9 1 Step (curb) (QC): 6 (scored 4) 4 Steps (QC): 6 (met) 12 Steps (QC): 6 (met) Picking up an Object (QC): 6 (scored 4) OT Snf Goals Snf Goals Time Frame: Mar 03, 2021 Eating (QC): 6 (met) Oral Hygiene (QC): 6 (met) Shower/Bathe Self (QC): 5 (met) Upper Body Dressing (QC): 6 (met) Lower Body Dressing (QC): 6 (met) On/Off Footwear (QC): 6 (met) Toileting Hygiene (QC): 6 (met) Toilet/Commode Transfer (QC): 6 (met) Additional Goals: 1-Demonstrate ADL Tasks, 2-Verbalize Understanding, 3- ImproveStrength/Fern 1=Demonstrate adherence to instructed precautions during ADL tasks. 2=Patient will verbalize/demonstrate understanding of assistive devices/modifications for ADL. 3=Patient will improve strength/tolerance for activity to enable patient to perform ADL's. PAOLA MENDOZA OT Feb 24, 2021 11:08
[2021-02-24] MEDS: ENOXAPARIN 40 MG/0.4 ML (LOVENOX) SYR SC SCH (12:07)
[2021-02-24 13:26] VITALS: BP 125/81
--- NOTE | 2021-02-24 14:03 | Physical Therapy Daily Note ---
PT Daily Note-Current Subjective Pt. agrees to Rx, Pain Location: No Pain Reported Mental Status Patient Orientation: Normal For Age Transfers SCALE: Activities may be completed with or without assistive devices. 1-Laxgmzgrta-ahjkmnx completes the activity by him/herself with no assistance from a helper. 5-Set-up or Clean-up Assistance-helper sets up or cleans up; patient completes activity. [place] assists only prior to or following the activity. 4-Supervision or Touching Assistance-helper provides verbal cues and/or touching/steadying and/or contact guard assistance as patient completes activity. Assistance may be provided throughout the activity or intermittently. 3-Partial/Moderate Assistance-helper does LESS THAN HALF the effort. [place] lifts, holds or supports trunk or limbs, but provides less than half the effort. 2-Substantial/Maximal Assistance-helper does MORE THAN HALF the effort. [place] lifts or holds trunk or limbs and provides more than half the effort. 5-Pchtqnqrc-adeqxs does ALL the effort. Patient does none of the effort to complete the activity. Or, the assistance of 2 or more helpers is required for the patient to complete the activity. If activity was not attempted, code reason: 7-Patient Refused. 9-Not Applicable-not attempted and the patient did not perform the activity before the current illness, exacerbation or injury. 10-Not Attempted due to Environmental Limitations-(lack of equipment, weather restraints, etc.). 88-Not Attempted due to Medical Conditions or Safety Concerns. all TRFs mod I Weight Bearing Right Lower Extremity: Right Full Weight Bearing Left Lower Extremity: Left Full Weight Bearing Gait Training Gait Assistive Device: FWW 160 ft x 2 SBA Exercises Standing: Hip Abduction, Hamstring curls, Heel/toe raises, Marching, Mini squats Standing Reps: 15 Assessment Current Status: Good Progress PT Short Term Goals Short Term Goals Time Frame: Feb 20, 2021 Roll Left & Right: 6 Sit to lyin Lying to sitting on side of be: 6 Sit to stand: 6 Chair/sbf-bf-lfhnh transfer: 6 PT Skilled Nursing Goals General Foundry Worker Goals PT General Foundry Worker Goals Time Frame: Mar 03, 2021 Roll Left & Right (QC): 6 (met) Sit to Lying (QC): 6 (met) Lying-Sitting on Side/Bed(QC): 6 (met) Sit to Stand (QC): 6 (met) Chair/Rmi-ef-Qsqfc Xfer(QC): 6 (met) Toilet Transfer (QC): 6 (met) Car Transfer (QC): 6 (met) Does the Patient Walk: Yes Walk 10 feet (QC): 6 (met) Walk 50ft with 2 Turns (QC): 6 (met) Walk 150 ft (QC): 6 (met) Walking 10ft on Uneven Surface: 6 (met) 1 Step (curb) (QC): 6 (scored 4) 4 Steps (QC): 6 (met) 12 Steps (QC): 6 (met) Picking up an Object (QC): 6 (scored 4) Does the Pt use WC or Scooter?: No Wheel 50 feet with 2 turns (QC: 9 Type: N/A Wheel 150 feet: 9 Type: N/A PT Plan Treatment/Plan Treatment Plan: Continue Plan of Care Treatment Plan: Bed Mobility, Education, Functional Activity Fern, Functional Strength, Group Therapy, Gait, Safety, Therapeutic Exercise, Transfers Treatment Duration: Mar 03, 2021 Frequency: At least 5 of 7 days/Wk (IRF) Estimated Hrs Per Day: 1.5 hours per day Patient and/or Family Agrees t: Yes Safety Risks/Education Patient Education: Correct Positioning Time/GCodes Time In: 1330 Time Out: 1345 Total Billed Treatment Time: 15 Total Billed Treatment 1,EX15m (the above Rx was rendered on 02-17-2021 AN [place] PTA, PTA Feb 24, 2021 14:03
== END 2021-02-24 12:30 | DRG 93 ==
PROVIDERS: ADMIT Internal Medicine; ATTEND Internal Medicine
DX: G72.89 Other specified myopathies (principal); Z48.815 Encounter for surgical aftercare following surgery on the digestive system; R26.9 Unspecified abnormalities of gait and mobility; R00.0 Tachycardia, unspecified; N28.9 Disorder of kidney and ureter, unspecified; E86.9 Volume depletion, unspecified; I25.10 Atherosclerotic heart disease of native coronary artery without angina pectoris; Z93.2 Ileostomy status; Z20.822 Contact with and (suspected) exposure to COVID-19; D64.9 Anemia, unspecified; E78.00 Pure hypercholesterolemia, unspecified; I10 Essential (primary) hypertension; F41.9 Anxiety disorder, unspecified; F43.21 Adjustment disorder with depressed mood; I07.1 Rheumatic tricuspid insufficiency; L68.0 Hirsutism; I25.2 Old myocardial infarction; Z87.01 Personal history of pneumonia (recurrent); Z95.5 Presence of coronary angioplasty implant and graft; Z79.82 Long term (current) use of aspirin; Z82.49 Family history of ischemic heart disease and other diseases of the circulatory system
CPT/HCPCS: 36410; 36415; 76937; 80053; 83540; 84443; 85007; 85025; 85027; 87635; 93005

== ENCOUNTER 2021-03-27 18:19 | Emergency (ER) | payer OTHER ==
[~2021-03-27] VITALS: Ht 160 cm; Wt 65.7 kg
[~2021-03-27 18:19] MED LIST changes: +CARV6.252 PO
--- NOTE | 2021-03-27 18:51 | ED GI ---
General Chief Complaint: Abdominal/GI Problems Stated Complaint: ABDOMINAL PAIN Nursing Triage Note: Patient reports she had an ileostomy placed February 04 at [facility]. She states her bowel prolapsed yesterday and Dr. Ramey was able to reduce it in the office. She states she was eating dinner today around 5:30pm and noticed her bowel had prolapsed again. Patient states she is a resident of [facility]. Sepsis Screen: No Definite Risk Source of Information: Patient, EMS History of Present Illness Date Seen by Provider: March 27, 2021 Time Seen by Provider: 18:21 Initial Comments 55-year-old female presenting from [facility] by EMS. She was complaining of prolapsed bowel through ileostomy site. The ileostomy was placed February 04 at [facility]. She had this happen yesterday on March [address] Ramey was present and reduce the prolapse. [facility] she noticed that she had a lot of pressure like her bag was full even though she just changed it but when she looked down the small bowel had prolapse out of the ileostomy again. She denies any pain with this. She has no nausea or vomiting. She has an appointment to see Dr. Castaneda her colorectal surgeon on Monday for follow-up. Allergies and Home Medications Allergies Coded Allergies: No Known Drug Allergies (Unverified , 11/11/19) Home Medications Alprazolam 0.25 Mg Tablet, 0.25 MG PO Q8H PRN for ANXIETY Prescribed by: SESAR BEEBE on 02/24/21936 Aspirin 81 Mg Tablet., 81 MG PO DAILY, (Reported) Carvedilol 6.25 Mg Tablet, 6.25 MG PO BID Prescribed by: SESAR BEEBE on 02/24/21936 Clopidogrel Bisulfate 75 Mg Tablet, 75 MG PO DAILY, (Reported) Cyclobenzaprine HCl 10 Mg Tablet, 10 MG PO HS PRN for MUSCLE SPASMS, (Reported) Ondansetron 4 Mg Tab.rapdis, 4 MG PO Q8H PRN for NAUSEA/VOMITING-1ST LINE, (Reported) Pantoprazole Sodium 40 Mg Tablet., 40 MG PO DAILY, (Reported) Patient Home Medication List Home Medication List Reviewed: Yes Review of Systems Review of Systems Constitutional: No chills, No dizziness, No fever EENTM: No Symptoms Reported Respiratory: No Symptoms Reported Cardiovascular: No Symptoms Reported Gastrointestinal: See HPI; Denies Abdomen Distended, Denies Abdominal Pain, Denies Constipated, Denies Nausea, Denies Poor Appetite, Denies Vomiting Genitourinary: No Symptoms Reported Musculoskeletal: no symptoms reported Skin: no symptoms reported Psychiatric/Neurological: No Symptoms Reported Past Dumyfis-Kbswtv-Yfhhga Hx Past Med/Social Hx: Reviewed Nursing Past Med/Soc Hx Patient Social History Alcohol Use: Denies Use Smoking Status: Never a Smoker 2nd Hand Smoke Exposure: No Recent Infectious Disease Expo: No Recent Hopitalizations: Yes Immunizations Up To Date Tetanus Booster (TDap): Unknown Date of Influenza Vaccine: Aug 20, 2020 Seasonal Allergies Seasonal Allergies: Yes Past Medical History Surgeries: Yes (ILEOSTOMY take down and reanastamosis) Abdominal, Cardiac, Coronary Stent Respiratory: No Currently Using CPAP: No Currently Using BIPAP: No Cardiac: Yes (STENTS X3) Heart Attack, High Cholesterol, Hypertension Neurological: No Sexually Transmitted Disease: No HIV/AIDS: No Genitourinary: No Gastrointestinal: Yes (ILEOSTOMY, HX BLOCKED BOWEL, ILLEOSTOMY TAKEDOWN) Obstructive Bowel, Chronic Constipation Musculoskeletal: No Endocrine: No HEENT: No Cancer: No Psychosocial: Yes Sleep Difficulties, Anxiety, Depression Integumentary: No Blood Disorders: No Adverse Reaction/Blood Tranf: No (HAD TRANSFUSION WITHOUT PROBLEMS) Family Medical History Cardiovascular disease 19 FATHER Hypertension 19 MOTHER No Pertinent Family Hx, Hypertension, Other Conditions/Hx Physical Exam Vital Signs Vital Signs - First Documented 03/27/21 18:25 Temp 36.6 Pulse 90 Resp 18 B/P (MAP) 184/106 (132) Pulse Ox 100 O2 Delivery Room Air Capillary Refill : Less Than 3 Seconds Height/Weight/BMI Height: '" Weight: lbs. oz. kg; 25.00 BMI Method: General Appearance: WD/WN, no apparent distress HEENT: PERRL/EOMI Respiratory: chest non-tender, lungs clear, normal breath sounds Cardiovascular: normal peripheral pulses, regular rate, rhythm Gastrointestinal: normal bowel sounds, non tender, soft, no pulsatile mass, other (prolapsed ileostomy in ostomy bag and it is beefy red in color without pain, active bleeding or dusky appearance. Easily reduced with gentle palpation and insertion into the ostomy site) Neurologic/Psychiatric: alert, oriented x 3 Skin: normal color, warm/dry Images 1 - prolapsed ileostomy within ostomy bag Progress/Results/Core Measures Results/Orders My Orders Orders - JOLIE EASLEY MD Abdominal Binder (03/27/21 19:42) Vital Signs/I&O 03/27/21 03/27/21 18:25 20:05 Temp 36.6 36.6 Pulse 90 90 Resp 18 18 B/P (MAP) 184/106 (132) 184/106 (132) Pulse Ox 100 100 O2 Delivery Room Air Room Air Blood Pressure Mean: 132 Progress Progress Note : Progress Note prolapse easily reduced in the ED by myself. discussed case with Dr. Castaneda and he advised that without signs of incarceration or pain and with it easily reducing that this would not be a surgical emergency. Will rehabilitation counselor on how to try and reduce it herself.. Use abdominal binder to put loose pressure over the osto my to help prevent recurrence. Departure Impression Primary Impression: Ileostomy prolapse Disposition: HOME, SELF-CARE Condition: Improved Departure-Patient Inst. Decision time for Depature: 19:38 Referrals: [facility]/ (PCP) Primary Care Physician KARTIK HEREDIA APRN (Family) Primary Care Physician Patient Instructions: Ileostomy Care, Ileostomy Diet Add. Discharge Instructions: Follow up with Dr. Devin Castaneda Monday as scheduled. If you have more concerns or questions the nurses could call and reach him through the answering service by calling [phone] You could try wearing the abdominal binder so that it puts some loose pressure over the stoma. Do not have it tight where it would block off the stool and gas. If you have the prolapse happen again you could have the nurses help you to gently massage and squeeze the bowel back inside the stoma. If you have pain or the prolapsed bowel is looking purple or dusky then you need to be seen as you may have incarcerated or twisted bowel that is not getting blood flow. All discharge instructions reviewed with patient and/or family. Voiced understanding. JOLIE EASLEY MD March 27, 2021 18:51
[2021-03-27 20:05] VITALS: BP 184/106
== END 2021-03-27 20:07 | disposition home or self-care (01) ==
LOC: EDUNIT# 18:19 → ER FS 18:20
DX: K94.19 Other complications of enterostomy (principal); I10 Essential (primary) hypertension; I25.2 Old myocardial infarction; F41.9 Anxiety disorder, unspecified; Z79.82 Long term (current) use of aspirin; Z79.899 Other long term (current) drug therapy
CPT/HCPCS: 99283

== ENCOUNTER 2021-06-17 14:45 | Emergency (ER) | payer MEDICAID, OTHER ==
[~2021-06-17] VITALS: Ht 160 cm; Wt 73.0 kg
[2021-06-17] MEDS ORDERED: NS IV 1000 ML 1,000 ML IV SCH (15:00)
[2021-06-17] MEDS ORDERED: ONDANSETRON 4 MG/2 ML (SDV) Z0FRAN IVP ONE (15:00)
[2021-06-17 15:10] LABS: HEMATOCRIT 43 % (35-52); HEMOGLOBIN 14.2 G/DL (11.5-16.0); MEAN CORPUSCULAR HEMOGLOBIN 27 PG (25-34); MEAN CORPUSCULAR VOLUME 82 FL (80-99)
[2021-06-17 15:11] LABS: BASOPHILS % (AUTO) 0 % (0-10); EOSINOPHILS # (AUTO) 0.1 10^3/uL (0.0-0.3); EOSINOPHILS % (AUTO) 1 % (0-10); LYMPHOCYTES # (AUTO) 0.8 X 10^3 (1.0-4.0); LYMPHOCYTES % (AUTO) 6 % (12-44); MEAN CORPUSCULAR HGB CONC 33 G/DL (32-36); MEAN PLATELET VOLUME 9.1 FL (7.4-10.4); MONOCYTES # (AUTO) 0.7 X 10^3 (0.0-1.0); MONOCYTES % (AUTO) 5 % (0-12); NEUTROPHILS # (AUTO) 11.4 X 10^3 (1.8-7.8); NEUTROPHILS % (AUTO) 88 % (42-75); PLATELET COUNT 259 10^3/uL (130-400)
[2021-06-17 15:16] LABS: CLARITY,URINE CLEAR; COLOR,URINE YELLOW
[2021-06-17 15:19] LABS: AMORPHOUS SEDIMENT,UR FEW AMOR URATES /LPF; BACTERIA,URINE NEGATIVE /HPF; BILIRUBIN,URINE NEGATIVE (NEGATIVE); GLUCOSE, URINE (UA) NEGATIVE (NEGATIVE); KETONES,URINE NEGATIVE (NEGATIVE); LEUKOCYTE ESTERASE ,URINE NEGATIVE (NEGATIVE); NITRITE,URINE NEGATIVE (NEGATIVE); PROTEIN,URINE NEGATIVE (NEGATIVE); RBC,URINE 0-2 /HPF; SQUAMOUS EPITHELIAL CELL,UR 0-2 /HPF; WBC,URINE 0-2 /HPF
[2021-06-17 15:23] LABS: BAND NEUTROPHILS 4 %; NEUTROPHILS % (MANUAL) 85 %
[2021-06-17 15:24] LABS: LYMPHOCYTES % (MANUAL) 8 %; MONOCYTES % (MANUAL) 3 %; RBC MORPH NORMAL
[2021-06-17 15:27] LABS: CHLORIDE 104 MMOL/L (98-107); POTASSIUM 4.5 MMOL/L (3.6-5.0); SODIUM 138 MMOL/L (135-145)
[2021-06-17 15:28] LABS: ALANINE AMINOTRANSFERASE 12 U/L (0-55); ALBUMIN 4.1 GM/DL (3.2-4.5); ALKALINE PHOSPHATASE 129 U/L (40-136); BILIRUBIN,TOTAL 0.3 MG/DL (0.1-1.0); BUN/CREATININE RATIO 21; CALCIUM 9.1 MG/DL (8.5-10.1); CARBON DIOXIDE 21 MMOL/L (21-32); CREATININE SERUM 1.34 MG/DL (0.60-1.30); GFR ESTIMATED 41; GLUCOSE 127 MG/DL (70-105)
[2021-06-17] MEDS ORDERED: CATHETER FLUSH 10 ML SYR IV PRN (15:45)
[2021-06-17] MEDS ORDERED: HOLD METFORMIN - RECEIVED CONTRAST 20 ML VIAL IV SCH (15:45)
[2021-06-17] MEDS ORDERED: NS 100 ML (IVPB) BAG IV ONE (15:45)
[2021-06-17] MEDS ORDERED: IOHEXOL 350 MG/ML 100 ML (OMNIPAQUE 350) VIAL IV ONE (15:45)
--- NOTE | 2021-06-17 15:49 | ED General ---
General Chief Complaint: Abdominal/GI Problems Stated Complaint: BOWEL PROLAPSE; VOMITING Nursing Triage Note: PT ARRIVED BY [facility] WITH CHIEF COMPLAINT OF BOWEL PROLAPSE, VOMITING AND NAUSEA. PT WAS ALERT, ORIENTED X 4 AND WHEELED TO ROOM 5 WHERE VITALS WERE DONE, IV WAS STARTED WITH BLOOD DRAW, AND URINE WAS OBTAINED BY STRAIGHT CATH. LEONELA RN FROM [facility] STATED SHE WAS SEEN BY SPECIALIST 2 DAYS AGO FOR PROLAPSE INTO ILEOSTOMY BAG. HE STATED TO CONTINUE TO WEAR ABDOMINAL BINDER AND PUSH IT BACK IN WHEN IT HAPPENS. LEONELA STATED THAT SHEHASN'T BEEN FEELING WELL (NAUSEA, VOMITING) AND PROLAPSE HAS OCCURRED MULTIPLE TIMES TODAY. SHE TRIED TO GIVE XANAX AND ZOFRAN, BUT SHE THREW IT BACK UP. PT STATED THAT BOWEL STARTED HAVING ISSUES AROUND [phone] TODAY. PT STATED SHE HAS HAD BLOATING, NAUSEA, VOMITING, UNABLE TO URINATE AND WEAKNESS. PT DENIES ALLERGIES, SMOKING, ALCOHOL OR DRUG USE. PT HAS PMH OF ANEMIA, DEHYDRATION, ESSENTIAL (PRIMARY) HYPERTENSION, HYPERLIPIDEMIA, MALAISE, ABDOMINAL PAIN, ANXIETY, HIRSUTISM, MYOPATHY, TACHYCARDIA, AND INTESTINAL OBSTRUCTION. PT IS A FULL CODE. Source of Information: Patient Exam Limitations: No Limitations History of Present Illness Date Seen by Provider: Jun 17, 2021 Time Seen by Provider: 14:45 Initial Comments Patient is a 56-year-old female medical [place] patient with history of colostomy and parastomal herniation who presents with complaints of nausea and vomiting since yesterday. Patient has had very little to eat or drink since then but has been able to keep her medications down. She reports feeling generally weak but denies dizziness or lightheadedness. She denies abdominal pain. She does report decreased ostomy output. Denies cough, sore throat, fever chills, sweats. No chest pain, palpitations or shortness of breath. No flank pain, uri nary frequency or urgency. Reports decreased urinary output. No other acute symptoms or complaints. Timing/Duration: 1 Day Severity: Moderate Modifying Factors: improves with Other Associated Systoms: Denies Symptoms, Other Allergies and Home Medications Allergies Coded Allergies: No Known Drug Allergies (Unverified , 11/11/19) Home Medications Alprazolam 0.25 Mg Tablet, 0.25 MG PO Q8H PRN for ANXIETY Prescribed by: SESAR BEEBE on 02/24/21 0937 Aspirin 81 Mg Tablet., 81 MG PO DAILY, (Reported) Carvedilol 6.25 Mg Tablet, 6.25 MG PO BID Prescribed by: SESAR BEEBE on 02/24/21 0937 Clopidogrel Bisulfate 75 Mg Tablet, 75 MG PO DAILY, (Reported) Cyclobenzaprine HCl 10 Mg Tablet, 10 MG PO HS PRN for MUSCLE SPASMS, (Reported) Ondansetron 4 Mg Tab.rapdis, 4 MG PO Q8H PRN for NAUSEA/VOMITING-1ST LINE, (Reported) Pantoprazole Sodium 40 Mg Tablet., 40 MG PO DAILY, (Reported) Patient Home Medication List Home Medication List Reviewed: Yes Review of Systems Review of Systems Constitutional: see HPI EENTM: see HPI Respiratory: see HPI Cardiovascular: see HPI Gastrointestinal: see HPI Genitourinary: see HPI Musculoskeletal: see HPI Skin: see HPI Psychiatric/Neurological: See HPI Hematologic/Lymphatic: See HPI Immunological/Allergic: see HPI All Other Systems Reviewed Negative Unless Noted: Yes Past Vfeulyr-Pkdtrc-Vqwxvb Hx Patient Social History Tobacco Use?: No Smoking Status: Never a Smoker Substance use?: No Alcohol Use?: No Pt feels they are or have been: No Immunizations Up To Date Tetanus Booster (TDap): Unknown Seasonal Allergies Seasonal Allergies: Yes Past Medical History Surgeries: Yes (ILEOSTOMY take down and reanastamosis) Abdominal, Cardiac, Coronary Stent Respiratory: No Currently Using CPAP: No Currently Using BIPAP: No Cardiac: Yes (STENTS X3) Heart Attack, High Cholesterol, Hypertension Neurological: No Sexually Transmitted Disease: No HIV/AIDS: No Genitourinary: No Gastrointestinal: Yes (ILEOSTOMY, HX BLOCKED BOWEL, ILLEOSTOMY TAKEDOWN) Obstructive Bowel, Chronic Constipation Musculoskeletal: No Endocrine: No HEENT: No Cancer: No Psychosocial: Yes Sleep Difficulties, Anxiety, Depression Integumentary: No Blood Disorders: No Adverse Reaction/Blood Tranf: No (HAD TRANSFUSION WITHOUT PROBLEMS) Family Medical History Cardiovascular disease 19 FATHER Hypertension 19 MOTHER No Pertinent Family Hx, Hypertension, Other Conditions/Hx Physical Exam Vital Signs Vital Signs - First Documented 06/17/21 14:55 Temp 36.5 Pulse 69 Resp 16 B/P (MAP) 185/83 (117) Pulse Ox 100 O2 Delivery Room Air Capillary Refill : Less Than 3 Seconds Height, Weight, BMI Height: '" Weight: lbs. oz. kg; 28.00 BMI Method: General Appearance: No Apparent Distress, WD/WN Eyes: Bilateral Eye Normal Inspection, Bilateral Eye PERRL, Bilateral Eye EOMI HEENT: PERRL/EOMI, Normal ENT Inspection, Pharynx Normal Neck: Full Range of Motion, Non Tender, Supple Respiratory: Chest Non Tender, Lungs Clear Cardiovascular: Regular Rate, Rhythm, No Edema Gastrointestinal: Non Tender, Soft, Distended, Other (Prolapsed ostomy bag with minimal light brown liquid stool output) Back: Normal Inspection, No CVA Tenderness Extremity: Non Tender, No Calf Tenderness Neurologic/Psychiatric: Alert, Oriented x3, No Motor/Sensory Deficits, Normal 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, 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 Norm as Tested Skin: Normal Color, Warm/Dry Lymphatic: No Adenopathy Focused Exam Sepsis Stage: Ruled Out Lactate Level 06/17/21 14:54: Lactic Acid Level 1.23 Lactic Acid Level Laboratory Tests Test 06/17/21 14:54 Lactic Acid Level 1.23 MMOL/L (0.50-2.00) Progress/Results/Core Measures Suspected Sepsis SIRS Temperature: Pulse: 69 Respiratory Rate: 16 Laboratory Tests 06/17/21 14:54: White Blood Count 13.0H Blood Pressure 185 /83 Mean: 117 06/17/21 14:54: Lactic Acid Level 1.23 Laboratory Tests 06/17/21 14:54: Creatinine 1.34H, Platelet Count 259, Total Bilirubin 0.3 Results/Orders Lab Results Laboratory Tests Test 06/17/21 14:54 06/17/21 15:04 Range/Units White Blood Count 13.0 H 4.3-11.0 10^3/uL Red Blood Count 5.25 4.35-5.85 10^6/uL Hemoglobin 14.2 11.5-16.0 G/DL Hematocrit 43 35-52 % Mean Corpuscular Volume 82 80-99 FL Mean Corpuscular Hemoglobin 27 25-34 PG Mean Corpuscular Hemoglobin Concent 33 32-36 G/DL Red Cell Distribution Width 14.6 H 10.0-14.5 % Platelet Count 259 130-400 10^3/uL Mean Platelet Volume 9.1 7.4-10.4 FL Immature Granulocyte % (Auto) 0 % Neutrophils (%) (Auto) 88 H 42-75 % Lymphocytes (%) (Auto) 6 L 12-44 % Monocytes (%) (Auto) 5 0-12 % Eosinophils (%) (Auto) 1 0-10 % Basophils (%) (Auto) 0 0-10 % Neutrophils # (Auto) 11.4 H 1.8-7.8 X 10^3 Lymphocytes # (Auto) 0.8 L 1.0-4.0 X 10^3 Monocytes # (Auto) 0.7 0.0-1.0 X 10^3 Eosinophils # (Auto) 0.1 0.0-0.3 10^3/uL Basophils # (Auto) 0.0 0.0-0.1 10^3/uL Immature Granulocyte # (Auto) 0.0 0.0-0.1 10^3/uL Neutrophils % (Manual) 85 % Lymphocytes % (Manual) 8 % Monocytes % (Manual) 3 % Band Neutrophils 4 % Blood Morphology Comment NORMAL Sodium Level 138 135-145 MMOL/L Potassium Level 4.5 3.6-5.0 MMOL/L Chloride Level 104 98-107 MMOL/L Carbon Dioxide Level 21 21-32 MMOL/L Anion Gap 13 5-14 MMOL/L Blood Urea Nitrogen 28 H 7-18 MG/DL Creatinine 1.34 H 0.60-1.30 MG/DL Estimat Glomerular Filtration Rate 41 BUN/Creatinine Ratio 21 Glucose Level 127 H 70-105 MG/DL Lactic Acid Level 1.23 0.50-2.00 MMOL/L Calcium Level 9.1 8.5-10.1 MG/DL Corrected Calcium 9.0 8.5-10.1 MG/DL Total Bilirubin 0.3 0.1-1.0 MG/DL Aspartate Amino Transf (AST/SGOT) 12 5-34 U/L Alanine Aminotransferase (ALT/SGPT) 12 0-55 U/L Alkaline Phosphatase 129 40-136 U/L Troponin I < 0.30 <0.30 NG/ML Total Protein 8.0 6.4-8.2 GM/DL Albumin 4.1 3.2-4.5 GM/DL Urine Color YELLOW Urine Clarity CLEAR Urine pH 6.0 5-9 Urine Specific Collbran 1.025 H 1.016-1.022 Urine Protein NEGATIVE NEGATIVE Urine Glucose (UA) NEGATIVE NEGATIVE Urine Ketones NEGATIVE NEGATIVE Urine Nitrite NEGATIVE NEGATIVE Urine Bilirubin NEGATIVE NEGATIVE Urine Urobilinogen 0.2 < = 1.0 MG/DL Urine Leukocyte Esterase NEGATIVE NEGATIVE Urine RBC (Auto) 1+ H NEGATIVE Urine RBC 0-2 /HPF Urine WBC 0-2 /HPF Urine Squamous Epithelial Cells 0-2 /HPF Urine Crystals NONE /LPF Urine Amorphous Sediment FEW CRISTOBAL URATES H /LPF Urine Bacteria NEGATIVE /HPF Urine Casts NONE /LPF Urine Mucus NEGATIVE /LPF Urine Culture Indicated NO My Orders Orders - CARO MAX DO Cbc With Automated Diff (06/17/21 14:52) Comprehensive Metabolic Panel (06/17/21 14:52) Urinalysis (06/17/21 14:52) Troponin I Fs (06/17/21 14:52) Lactic Acid Analyzer (06/17/21 14:52) Ns Iv 1000 Ml (Sodium Chloride 0.9%) (06/17/21 15:00) Ondansetron Injection (Zofran Injectio (06/17/21 15:00) Ekg Tracing (06/17/21 15:08) Manual Differential (06/17/21 14:54) Ct Abdomen/Pelvis W (06/17/21 15:31) Iohexol Injection (Omnipaque 350 Mg/Ml 1 (06/17/21 15:45) Received Contrast (Hold Metformin- Contr (06/17/21 15:45) Sodium Chloride Flush (Catheter Flush Sy (06/17/21 15:45) Ns (Ivpb) (Sodium Chloride 0.9% Ivpb Bag (06/17/21 15:45) Medications Given in ED Current Medications Medications Dose Ordered Sig/Foster Route Start Time Stop Time Status Last Admin Dose Admin Iohexol 50 ml ONCE ONCE IV 06/17/21 15:45 06/17/21 15:46 DC 06/17/21 15:57 50 ML Ondansetron HCl 4 mg ONCE ONCE IVP 06/17/21 15:00 06/17/21 15:01 DC 06/17/21 14:58 4 MG Sodium Chloride 10 ml NEEDED PRN IV 06/17/21 15:45 06/17/21 15:57 10 ML Sodium Chloride 100 ml ONCE ONCE IV 06/17/21 15:45 06/17/21 15:46 DC 06/17/21 15:57 100 ML Vital Signs/I&O 06/17/21 14:55 Temp 36.5 Pulse 69 Resp 16 B/P (MAP) 185/83 (117) Pulse Ox 100 O2 Delivery Room Air Capillary Refill : Less Than 3 Seconds Blood Pressure Mean: 117 Departure Communication (Admissions) CT abdomen pelvis: Distal right 3 mm UVJ with mild hydronephrosis EKG: Sinus rhythm, subtle ST depression in lateral leads. No acute ST elevation. EKG lab and imaging studies were reviewed. Suspect nausea and vomiting is related to kidney stone. Mild hydronephrosis without evidence of urinary tract infection. Patient denies exertional symptoms. No chest pain shortness of breath sweats. History of known CAD with CT in 2019. Troponin negative. Hospital admission at [facility] offered for treatment of kidney stone and evaluation of heart disease. Patient declined. She states she does not feel her symptoms are in any way cardiac related and she prefers to follow- up with Dr. Crump in the office. I did discuss with her the need to immediately return to the emergency department should any of her symptoms worsen or should she develop new concerning symptoms. She agrees to do this. Patient verbalizes understanding agreement discharge instructions prior to departure. Impression Primary Impression: Kidney stone Additional Impressions: Nausea & vomiting Abnormal EKG Disposition: HOME, SELF-CARE Condition: Stable Departure-Patient Inst. Decision time for Depature: 17:44 Referrals: [facility] (PCP) Primary Care Physician KARTIK HEREDIA APRN (Family) Primary Care Physician Patient Instructions: Nausea and Vomiting, Adult, Kidney Stones in Adults Add. Discharge Instructions: You were evaluated in the emergency department for nausea and vomiting. CT EKG and lab were performed. Your symptoms are consistent with a small kidney stone which is likely to pass. Please increase fluids and take nausea medication as directed additionally, it was noted that you had an abnormal EKG. This is different than your prior EKGs. 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 In the meantime if you develop new or concerning symptoms or your symptoms worsen, please return immediately to the emergency department. All discharge instructions reviewed with patient and/or family. Voiced understanding. Scripts Ondansetron (Ondansetron Odt) 4 Mg Tab.rapdis 4 MG PO Q6H, #10 TAB Prov: CARO MAX DO 06/17/21 CARO MAX DO Jun 17, 2021 15:49
--- NOTE | 2021-06-17 16:27 | Diagnostic Imaging Report ---
PROCEDURE: CT abdomen and pelvis with contrast. TECHNIQUE: Multiple contiguous axial images were obtained through the abdomen and pelvis after administration of intravenous contrast. Auto Exposure Controls were utilized during the CT exam to meet ALARA standards for radiation dose reduction. All CT scans use one or more of the following dose optimizing techniques: automated exposure control, MA and/or KvP adjustment based on patient size and exam type or iterative reconstruction. DATE: June 17, 2021. COMPARISON: CT abdomen pelvis March 16, 2020. INDICATION: 56-year-old female, nausea and vomiting. Abdominal bloating. FINDINGS: The visualized portions of the lung bases are clear. The heart is not enlarged. There is no pericardial effusion. The liver is unremarkable in size and contour. There is no identified liver lesion. The gallbladder is unremarkable. There is no identified biliary ductal dilation. The main pancreatic duct is not grossly dilated. The pancreatic parenchyma is unremarkable in appearance. The spleen measures 14 cm in craniocaudal dimension and does not meet size threshold criteria for diagnosis of splenomegaly. There is mild right hydronephrosis and prominence of the right ureter. There is a stone in the region of the right distal ureterovesical junction on axial image 77 measuring 3 mm in size. There are pelvic calcifications compatible with phleboliths. There is no left-sided hydronephrosis. The urinary bladder is otherwise grossly unremarkable in appearance. There is low-attenuation in the region of the central uterus. 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 There are sutures at the level of the sigmoid colon. There is nonspecific wall thickening of the transverse colon including extending through the ostomy site. The intestinal tract is not grossly distended. There is no free intracranial air. There is no identified focal drainable fluid collection. There is no sizable volume ascites. There are atherosclerotic calcifications. There is no identified abnormally enlarged lymph node in the abdomen or pelvis meeting CT size criteria for adenopathy. There is no identified acute bony abnormality. There is a chronic appearing deformity of the upper coccyx. IMPRESSION: CT ABDOMEN AND PELVIS. 1. Nonspecific wall thickening of the transverse colon extending through the ostomy site. This may reflect a nonspecific colitis. 2. Mild right hydronephrosis with 3 mm stone at the level of the distal ureterovesical junction. Dictated by: Dictated on workstation # [id number]
[2021-06-17] MEDS ORDERED: ONDA4TAB11 PO (17:46)
[2021-06-17 18:08] VITALS: BP 140/92
== END 2021-06-17 18:08 | disposition home or self-care (01) ==
LOC: EDUNIT# 14:45 → ER FS 14:47
DX: N13.2 Hydronephrosis with renal and ureteral calculous obstruction (principal); R94.31 Abnormal electrocardiogram [ECG] [EKG]; I25.2 Old myocardial infarction; I10 Essential (primary) hypertension; F41.9 Anxiety disorder, unspecified; Z79.82 Long term (current) use of aspirin; Z79.899 Other long term (current) drug therapy; Z79.01 Long term (current) use of anticoagulants
CPT/HCPCS: 36415; 51701; 74177; 80053; 81000; 83605; 84484; 85007; 85025; 85027; 93005

== ENCOUNTER 2021-11-17 16:02 | Emergency (ER) | payer MEDICAID ==
[~2021-11-17] VITALS: Ht 160 cm; Wt 75.6 kg
--- OUTSIDE RECORDS SUMMARY | 2021-11-17 16:07 | XMS REPORT | Clinical Summary ---
Author Author [facility] Organization [facility] Address Unknown Phone Unavailable Care Team Providers Care Form Worker Name Role Phone ArnoldoHeide green MARY PCP Allergies No known active allergies Medications End Date Status Medication Sig Dispensed Refills Start Date Active citalopram (CELEXA) 10 mg Take 10 mg by 0 / tablet mouth daily. 1 Active ALPRAZolam (XANAX) 0.25 Take 0.25 mg 0 MG tablet by mouth 3 (three) times a day. Active amLODIPine (NORVASC) 5 MG Take 5 mg by 0 06/27 tablet mouth daily. 1 Active ondansetron (ZOFRAN) 4 MG Take 4 mg by 0 11/28 tablet mouth 4 1 (four) times a day as needed. Active methylcellulose Take 500 mg 0 (CITRUCEL) 500 mg Tab by mouth 1 tablet every 12 (twelve) hours. Active caRVEDILoL (COREG) 12.5 Take 12.5 mg 0 MG tablet by mouth 2 1 (two) times a day. Active melatonin 10 mg Tab Take 10 mg by 0 mouth 1 nightly. Active tramadoL (ULTRAM) 50 mg Take 50 mg by 0 tablet mouth every 4 1 (four) hours as needed. Active cyclobenzaprine Take 10 mg by 0 (FLEXERIL) 10 MG tablet mouth daily 1 as needed. Active clopidogreL (PLAVIX) 75 Take 75 mg by 0 mg tablet mouth daily. 1 Active pantoprazole (PROTONIX) Take 40 mg by 0 40 MG tablet mouth daily. Active aspirin 81 MG EC tablet Take 81 mg by 0 mouth daily. Active Problems Not on file Social History Date Tobacco Use Types Packs/Day Years Used Never Smoker Smokeless Tobacco: Never Used Sex Assigned at Date Recorded Not on file Last Filed Vital Signs Reading Time Taken Comments Vital Sign 162/97 08/13/2021 2:00 PM CDT Blood Pressure 78 08/13/2021 2:00 PM CDT Pulse 36.8 C (98.2 F) 08/13/2021 11:56 AM CDT Temperature 14 08/13/2021 12:15 PM CDT Respiratory Rate 99% 08/13/2021 2:00 PM CDT Oxygen Saturation - - Inhaled Oxygen Concentration 71.7 kg (158 lb) 08/13/2021 11:53 AM CDT Weight 160 cm (5' 3") 08/13/2021 11:53 AM CDT Height 27.99 08/13/2021 11:53 AM CDT Body Mass Index Plan of Treatment Health Maintenance Due Date Last Done Comments Td/Tdap# 1965 Cervical Cancer Screening 1987 via Pap Smear Colorectal Screening via 2016 Colonoscopy Mammogram Screening 2016 Zoster Vaccine# (1 of 2) 2016 Influenza Vaccine (#1) 2021 09/10/2020, 11/15/2019 COVID-19 Vaccine (3 - 10/08/2021 04/07/2021, Booster) 03/11/2021 Pneumococcal Vaccine: Aged Out No longer eligib le based on patient's age to Pediatrics (0 to 5 Years) complete this topic and At-Risk Patients (6 to 64 Years) Results Not on filefrom Last 3 Months Insurance Type Payer Benefit Subscriber ID Effective Phone Address Plan / Dates Group MEDICAID MANAGED CARE AETNA [id number] 2021- [address] Present [id number] [facility] [id number] 1 Naomi Ray Personal/F Self 1965 [address] amily (Home) [place], [place] [address] Advance Directives For more information, please contact: [phone] 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
--- OUTSIDE RECORDS SUMMARY | 2021-11-17 16:07 | XMS REPORT | Clinical Summary ---
Author Author [facility] Organization [facility] Address Unknown Phone Unavailable Care Team Providers Care Pump Attendant Name Role Phone Self, Adam COPPOLA PCP Heide Mclaughlin NP [phone] Hipolito Crump MD Unavailable Source Comments Some departments are not documenting in the electronic medical record. If you d o not see the information that you expected, contact Release of Information in [facility] [employer] [facility] Information Management department at [phone] for further assistan ce in locating additional records.[facility] Allergies Not on File Medications Not on file Active Problems Not on file Encounters Care Team Description Date Type Specialty Akin Weber DO New Patient 09/07/2021 Telephone Oncology from Last 3 Months Social History Date Tobacco Use Types Packs/Day Years Used Never Assessed Sex Assigned at Date Recorded Not on file Last Filed Vital Signs Not on file Plan of Treatment Health Maintenance Due Date Last Done Comments HIV SCREENING 1981 DTAP/TDAP VACCINES ( - 1984 Tdap) HEPATITIS C SCREENING 1984 PHYSICAL (COMPREHENSIVE) 1984 EXAM CERVICAL CANCER SCREENING 1987 BREAST CANCER SCREENING 2006 COLORECTAL CANCER 2016 SCREENING SHINGLES RECOMBINANT 2016 VACCINE (1 of 2) INFLUENZA VACCINE 06/27/2021 Results Not on filefrom Last 3 Months Insurance Type Payer Benefit Subscriber ID Effective Phone Address Plan / Dates Group AETNA MEDICAID AETNA [id number] 2021-P [phone] [address] [facility] [address] [place] [address] Advance Directives Patient 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
--- NOTE | 2021-11-17 17:08 | ED GU-Female ---
General Chief Complaint: - Reproductive Stated Complaint: HEMOGLOBIN LOW Source: patient, old records History of Present Illness Date Seen by Provider: Nov 17, 2021 Time Seen by Provider: 16:10 Initial Comments 56-year-old female presenting with complaints of feeling generally weak. She has been having heavier postmenopausal bleeding in the last few weeks. She has been passing large clots. She had seen Dr. Rodas yesterday and was started on Provera after having a endometrial biopsy done. She is scheduled to have an ultrasound done tomorrow. When she told the alf she was feeling weak they had done a CBC to look at her blood count. It was found that she had a hemoglobin of 7.3 earlier this afternoon. She was told that she needed a transfusion and was advised to come to the emergency department at [facility] in [place] to get blood and then go home. However, the patient was advised that with the stand-alone ED status we no longer had a blood bank available for routine transfusions of patients. Patient started breaking down crying and being upset because she was concerned about having to be admitted into the hospital right before [facility]. Advised that I would check with Dr. Rodas about further management Timing/Duration: changing over time Severity/Quality: moderate Location: suprapubic Radiation: suprapubic Activities at Onset: none Sexual [place] History: not active Associated Symptoms: No abdominal pain, No diaphoresis, No dysuria, No fever/chills, No loss of bladder control, No lower back pain, No lumps, No mass, No nausea/vomiting, No nocturia, No polyuria, No swelling, No syncope, No urinary frequency Allergies and Home Medications Allergies Coded Allergies: No Known Drug Allergies (Unverified , 11/11/19) Patient Home Medication List Home Medication List Reviewed: Yes Alprazolam (Xanax) 0.25 Mg Tablet, 0.25 MG PO Q8H PRN for ANXIETY Prescribed by: SESAR BEEBE on 02/24/21 09 Aspirin (Aspirin EC) 81 Mg Tablet.dr 81 MG PO DAILY, (Reported) Entered as Reported by: EDU HORAN on 02/16/21 170 Carvedilol (Carvedilol) 6.25 Mg Tablet, 6.25 MG PO BID Prescribed by: SESAR BEEBE on 02/24/21 0937 Clopidogrel Bisulfate (Plavix) 75 Mg Tablet, 75 MG PO DAILY, (Reported) Entered as Reported by: EDU HORAN on 02/16/21 170 Cyclobenzaprine HCl (Cyclobenzaprine HCl) 10 Mg Tablet, 10 MG PO HS PRN for MUSCLE SPASMS, (Reported) Entered as Reported by: EDU HORAN on 02/16/21 170 Ondansetron (Ondansetron Odt) 4 Mg Tab.rapdis, 4 MG PO Q8H PRN for NAUSEA/VOMITING-1ST LINE, (Reported) Entered as Reported by: EDU HORAN on 02/16/21 170 Ondansetron (Ondansetron Odt) 4 Mg Tab.rapdis, 4 MG PO Q6H Prescribed by: CARO MAX on 06/17/21 174 Pantoprazole Sodium (Pantoprazole Sodium) 40 Mg Tablet.dr, 40 MG PO DAILY, (Reported) Entered as Reported by: KEVIN CANTRELL on 06/17/20 1344 Review of Systems Review of Systems Constitutional: No chills; dizziness EENTM: no symptoms reported Respiratory: no symptoms reported Cardiovascular: no symptoms reported Gastrointestinal: no symptoms reported Genitourinary: see HPI Musculoskeletal: no symptoms reported Skin: no symptoms reported Psychiatric/Neurological: See HPI, Anxiety, Weakness (generalized) Past Gnytzot-Pkkbrf-Tjfblc Hx Immunizations Up To Date Tetanus Booster (TDap): Unknown Seasonal Allergies Seasonal Allergies: Yes Past Medical History Surgeries: Yes (ILEOSTOMY take down and reanastamosis) Abdominal, Cardiac, Coronary Stent Respiratory: No Currently Using CPAP: No Currently Using BIPAP: No Cardiac: Yes (STENTS X3) Heart Attack, High Cholesterol, Hypertension Neurological: No Sexually Transmitted Disease: No HIV/AIDS: No Genitourinary: No Gastrointestinal: Yes (ILEOSTOMY, HX BLOCKED BOWEL, ILLEOSTOMY TAKEDOWN) Obstructive Bowel, Chronic Constipation Musculoskeletal: No Endocrine: No HEENT: No Cancer: No Psychosocial: Yes Sleep Difficulties, Anxiety, Depression Integumentary: No Blood Disorders: No Adverse Reaction/Blood Tranf: No (HAD TRANSFUSION WITHOUT PROBLEMS) Family Medical History Cardiovascular disease 19 FATHER Hypertension 19 MOTHER No Pertinent Family Hx, Hypertension, Other Conditions/Hx Physical Exam Vital Signs Vital Signs - First Documented 11/17/21 16:09 Temp 36.1 Pulse 69 Resp 14 B/P (MAP) 158/78 (104) Pulse Ox 99 O2 Delivery Room Air Capillary Refill : Height, Weight, BMI Height: '" Weight: lbs. oz. kg; 28.00 BMI Method: General Appearance: WD/WN HEENT: PERRL/EOMI, normal ENT inspection Cardiovascular: normal peripheral pulses Respiratory: chest non-tender, lungs clear, normal breath sounds Gastrointestinal: normal bowel sounds, non tender, no pulsatile mass, other (colostomy present) Rectal: deferred Pelvic: normal external exam Extremities: normal range of motion, non-tender Neurologic/Psychiatric: teller vault II-XII nml as tested, alert, oriented x 3 Progress/Results/Core Measures Suspected Sepsis SIRS Temperature: Pulse: Respiratory Rate: Blood Pressure / Mean: Results/Orders Vital Signs/I&O 11/17/21 17:11 Pulse 75 Resp 16 B/P (MAP) 146/81 Pulse Ox 100 O2 Delivery Room Air Capillary Refill : Progress Note #1: Progress Note Reassured patient that her vital signs were stable I did indicate signs of hemodynamic instability. She was not tachycardic or hypotensive. She was not hypoxic. Especially since patient was having the bleeding slowing down with Provera it seemed reasonable to hold off on any emergent transfusion. Will contact Dr. Rodas and get his input since he has been managing the patient. Progress Note #2: Progress Note Discussed with Dr. Rodas and he agreed with the patient being hemodynamically stable that she would not necessarily have to be emergently transfused. Will have her get ultrasound on as scheduled and he will check with [facility] to see if it is possible to get an outpatient transfusion done through [place]. Updated patient about this and she was happy to hear that she would not have to be admitted to the hospital right before [place]. Counseled that there was no guarantee that the transfusion would happen or that it would be able to be done as an outpatient but Dr. Rodas would work on it. In the meantime continue the iron supplements and the medications as he had prescribed. Departure Impression Primary Impression: Anemia due to acute blood loss Additional Impression: Abnormal uterine bleeding (AUB) Disposition: HOME, SELF-CARE Condition: Stable Departure-Patient Inst. Decision time for Depature: 17:06 Referrals: [facility] (PCP) Primary Care Physician YAN,KARTIK S RESIDENT DIRECTOR (Family) Primary Care Physician DIEGO RODAS DO Patient Instructions: IRREGULAR VAGINAL BLEEDING Add. Discharge Instructions: Check back with Dr. Rodas about your bleeding. Continue on Iron and Provera medicine for your bleeding and anemia. Dr. Rodas is going to check about possibility of performing outpatient transfusion at [place] rather than have to be admitted for a transfusion All discharge instructions reviewed with patient and/or family. Voiced understanding. JOLIE EASLEY MD Nov 17, 2021 17:08
[2021-11-17 17:11] VITALS: BP 146/81
== END 2021-11-17 17:29 | disposition home or self-care (01) ==
LOC: EDUNIT# 16:02 → ER FS 16:03
DX: D62 Acute posthemorrhagic anemia (principal); N93.9 Abnormal uterine and vaginal bleeding, unspecified; I25.2 Old myocardial infarction; I10 Essential (primary) hypertension; F41.9 Anxiety disorder, unspecified; F32.9 Major depressive disorder, single episode, unspecified; Z79.01 Long term (current) use of anticoagulants; Z79.82 Long term (current) use of aspirin; Z79.899 Other long term (current) drug therapy
CPT/HCPCS: 99282

== ENCOUNTER → 2021-11-17 | Outpatient (CLI) | payer MEDICAID ==
[~2021-11-17] MED LIST changes: +CYCL10TA25 PO; -CYCL10TA9 PO
[2021-11-17 14:11] LABS: HEMATOCRIT 22 % (35-52); HEMOGLOBIN 7.3 g/dL (11.5-16.0); MEAN CORPUSCULAR HEMOGLOBIN 27 pg (25-34); MEAN CORPUSCULAR HGB CONC 33 g/dL (32-36); MEAN CORPUSCULAR VOLUME 83 fL (80-99); MEAN PLATELET VOLUME 8.9 fL (9.0-12.2); PLATELET COUNT 283 10^3/uL (130-400); WHITE BLOOD COUNT 5.4 10^3/uL (4.3-11.0)
[2021-11-17 14:12] LABS: BASOPHILS % (AUTO) 0 % (0-10); EOSINOPHILS % (AUTO) 3 % (0-10); MONOCYTES % (AUTO) 9 % (0-12); NEUTROPHILS % (AUTO) 68 % (42-75)
[2021-11-17 14:13] LABS: EOSINOPHILS # (AUTO) 0.2 10^3/uL (0.0-0.3); LYMPHOCYTES % (AUTO) 19 % (12-44); MONOCYTES # (AUTO) 0.5 X 10^3 (0.0-1.0); NEUTROPHILS # (AUTO) 3.7 X 10^3 (1.8-7.8)
== END ==
PROVIDERS: ATTEND Family Medicine
DX: N93.9 Abnormal uterine and vaginal bleeding, unspecified (principal)
CPT/HCPCS: 36415; 85025

== ENCOUNTER → 2022-03-22 | Outpatient (CLI) | payer MEDICAID ==
[2022-03-22 14:59] LABS: BILIRUBIN,URINE NEGATIVE (NEGATIVE); CLARITY,URINE SL CLOUDY; COLOR,URINE YELLOW; GLUCOSE, URINE (UA) NEGATIVE (NEGATIVE); KETONES,URINE NEGATIVE (NEGATIVE); LEUKOCYTE ESTERASE ,URINE 1+ (NEGATIVE); NITRITE,URINE NEGATIVE (NEGATIVE); PROTEIN,URINE NEGATIVE (NEGATIVE)
[2022-03-22 15:11] LABS: BACTERIA,URINE FEW /HPF; SQUAMOUS EPITHELIAL CELL,UR 0-2 /HPF; WBC,URINE >100 /HPF
[2022-03-22 15:16] LABS: BILIRUBIN,TOTAL 0.3 MG/DL (0.1-1.0); CALCIUM 9.2 MG/DL (8.5-10.1); CREATININE SERUM 0.93 MG/DL (0.60-1.30); POTASSIUM 4.5 MMOL/L (3.6-5.0); TOTAL PROTEIN 7.1 GM/DL (6.4-8.2)
[2022-03-22 15:17] LABS: ALBUMIN 4.2 GM/DL (3.2-4.5)
== END ==
PROVIDERS: ATTEND Family Medicine
DX: Z43.3 Encounter for attention to colostomy (principal)
CPT/HCPCS: 36415; 80053; 81000; 87088

== ENCOUNTER → 2022-03-23 | Outpatient (CLI) | payer MEDICAID ==
[2022-03-23 12:58] LABS: BASOPHILS % (AUTO) 1 % (0-10); EOSINOPHILS # (AUTO) 0.4 10^3/uL (0.0-0.3); EOSINOPHILS % (AUTO) 6 % (0-10); HEMATOCRIT 39 % (35-52); HEMOGLOBIN 13.3 g/dL (11.5-16.0); LYMPHOCYTES # (AUTO) 1.2 10^3/uL (1.0-4.0); LYMPHOCYTES % (AUTO) 17 % (12-44); MEAN CORPUSCULAR HEMOGLOBIN 27 pg (25-34); MEAN CORPUSCULAR HGB CONC 34 g/dL (32-36); MEAN CORPUSCULAR VOLUME 80 fL (80-99); MEAN PLATELET VOLUME 10.7 fL (9.0-12.2); MONOCYTES # (AUTO) 0.7 10^3/uL (0.0-1.0); MONOCYTES % (AUTO) 9 % (0-12); NEUTROPHILS # (AUTO) 4.8 10^3/uL (1.8-7.8); NEUTROPHILS % (AUTO) 67 % (42-75); PLATELET COUNT 239 10^3/uL (130-400); WHITE BLOOD COUNT 7.2 10^3/uL (4.3-11.0)
== END ==
PROVIDERS: ATTEND Family Medicine
DX: K56.609 Unspecified intestinal obstruction, unspecified as to partial versus complete obstruction (principal)
CPT/HCPCS: 36415; 85025

== ENCOUNTER → 2022-04-15 | Outpatient (CLI) | payer MEDICAID ==
[2022-04-15 11:45] LABS: BASOPHILS % (AUTO) 1 % (0-10); EOSINOPHILS # (AUTO) 0.6 10^3/uL (0.0-0.3); EOSINOPHILS % (AUTO) 7 % (0-10); HEMATOCRIT 35 % (35-52); HEMOGLOBIN 11.8 g/dL (11.5-16.0); LYMPHOCYTES # (AUTO) 1.1 10^3/uL (1.0-4.0); LYMPHOCYTES % (AUTO) 13 % (12-44); MEAN CORPUSCULAR HEMOGLOBIN 28 pg (25-34); MEAN CORPUSCULAR HGB CONC 34 g/dL (32-36); MEAN CORPUSCULAR VOLUME 81 fL (80-99); MEAN PLATELET VOLUME 9.2 fL (9.0-12.2); MONOCYTES # (AUTO) 0.7 10^3/uL (0.0-1.0); MONOCYTES % (AUTO) 8 % (0-12); NEUTROPHILS # (AUTO) 6.1 10^3/uL (1.8-7.8); NEUTROPHILS % (AUTO) 72 % (42-75); PLATELET COUNT 313 10^3/uL (130-400); WHITE BLOOD COUNT 8.5 10^3/uL (4.3-11.0)
== END ==
PROVIDERS: ATTEND Family Medicine
DX: D64.9 Anemia, unspecified (principal); I10 Essential (primary) hypertension
CPT/HCPCS: 82728; 83540; 83550; 85025

== ENCOUNTER → 2022-05-17 | Outpatient (CLI) | payer MEDICAID ==
[~2022-05-17] VITALS: Ht 160 cm; Wt 79.0 kg
[~2022-05-17] MED LIST changes: +CATHETER FLUSH 10 ML SYR IVP PRN; +REGADENOSON 0.4 MG/5 ML SYR (LEXISCAN) IV ONE
[2022-05-17 13:10] VITALS: BP 180/99
== END ==
LOC: CARD 10:02
PROVIDERS: ATTEND Internal Medicine Cardiovascular Disease
DX: I07.1 Rheumatic tricuspid insufficiency (principal); I25.10 Atherosclerotic heart disease of native coronary artery without angina pectoris
CPT/HCPCS: 78452; 93017; 93306

== ENCOUNTER 2022-06-07 09:53 | Day surgery (SDC) | payer MEDICAID ==
[2022-06-07] VITALS (22 sets, daily range): BP systolic 108–156; BP diastolic 76–93
[~2022-06-07] VITALS: Ht 160.2 cm; Wt 81.4 kg
[~2022-06-07 09:53] MED LIST changes: -CATHETER FLUSH 10 ML SYR IVP PRN; -REGADENOSON 0.4 MG/5 ML SYR (LEXISCAN) IV ONE
[2022-06-07] MEDS ORDERED: NS IV 1000 ML 1,000 ML ONE (10:15)
[2022-06-07] MEDS ORDERED: NS IV 1000 ML 1,000 ML IV SCH (10:15)
[2022-06-07] MEDS ORDERED: LIDOCAINE 1% INJ 20 ML VIAL ONE (10:15)
[2022-06-07] MEDS ORDERED: HEParin (CATH LAB) 2,000 ML IV ONE (10:15)
[2022-06-07 10:47] LABS: HEMATOCRIT 40 % (35-52); MEAN CORPUSCULAR HEMOGLOBIN 27 pg (25-34); MEAN CORPUSCULAR HGB CONC 33 g/dL (32-36); MEAN CORPUSCULAR VOLUME 82 fL (80-99); MEAN PLATELET VOLUME 9.3 fL (9.0-12.2); PLATELET COUNT 249 10^3/uL (130-400); WHITE BLOOD COUNT 7.3 10^3/uL (4.3-11.0)
[2022-06-07] MEDS ORDERED: MIDAZOLAM 5 MG/5 ML (VERSED) VIAL ONE (10:56)
[2022-06-07] MEDS ORDERED: fentaNYL INJ 100 MCG/2 ML AMP ONE (10:56)
[2022-06-07] MEDS ORDERED: MELA10TA2 PO (11:00)
[2022-06-07] MEDS ORDERED: CITA20TA9 PO (11:00)
[2022-06-07] MEDS ORDERED: AMLO-250 PO (11:00)
[2022-06-07] MEDS ORDERED: CARV12.53 PO (11:00)
[2022-06-07] MEDS ORDERED: TRAM50TA3 PO (11:00)
[2022-06-07] MEDS ORDERED: PANT20TA18 PO (11:00)
[2022-06-07] MEDS ORDERED: DICY20TA PO (11:00)
[2022-06-07] MEDS ORDERED: IRON1TAB89 PO (11:00)
[2022-06-07 11:01] LABS: POTASSIUM 4.3 MMOL/L (3.6-5.0)
[2022-06-07 11:02] LABS: CALCIUM 9.2 MG/DL (8.5-10.1)
[2022-06-07 11:03] LABS: TOTAL PROTEIN 7.9 GM/DL (6.4-8.2)
[2022-06-07 11:05] LABS: BILIRUBIN,TOTAL 0.4 MG/DL (0.1-1.0)
[2022-06-07 11:07] LABS: CREATININE SERUM 1.14 MG/DL (0.60-1.30)
[2022-06-07] MEDS ORDERED: HEParin 1000 UNIT/ML (10ML VIAL) FOR BOLUS ONE (11:54)
[2022-06-07] MEDS ORDERED: EPTIFIBATIDE BOLUS 10 ML IV ONE ×2 (11:55→11:59)
[2022-06-07 12:07] LABS: INR 1.1 (0.8-1.4); PROTHROMBIN TIME PATIENT 14.3 SEC (12.2-14.7)
[2022-06-07] MEDS ORDERED: NITRO DRIP 25000 MCG/D5W 250 ML IV ONE (12:12)
[2022-06-07] MEDS ORDERED: CLOPIDOGREL 75 MG (PLAVIX) TABLET ONE (12:21)
[2022-06-07] MEDS ORDERED: ASPIRIN 81 MG CHEW (CHILDREN'S ASA) ONE (12:21)
--- NOTE | 2022-06-07 13:58 | Cardiac Procedure Note-CS/ASA ---
Pre-Procedure Note Pre-Op Procedure Note H&P Reviewed The H&P was reviewed, patient examined and no changes noted. Date H&P Reviewed: Jun 07, 2022 Time H&P Reviewed: 11:00 Conscious Sedation Pre-Proced Time 11:00 ASA Score 3 For ASA 3 and 4: Consider anesthesia and medical clearance. Also, for patients with a history of failed moderate sedation consider anesthesia. Airway Lungs Heart ASA score ASA 1: a normal healthy patient ASA 2: a patient with a mild systemic disease (mid diabetes, controlled hypertension, obesity ASA 3: a patient with a severe systemic disease that limits activity (angina, COPD, prior Myocardial infarction) ASA 4: a patient with an incapacitating disease that is a constant threat to life (CHF, renal failure) ASA 5: a moribund patient not expected to survive 24 hrs. (ruptured aneurysm) ASA 6: a declared brain- patient whose organs are being harvested. For emergent operations, add the letter E after the classification Mallampati Classification Grade 2 Sedation Plan Analgesia, Amnesia, Plan communicated to team members The patient is an appropriate candidate to undergo the planned procedure, sedation, and anesthesia. The patient immediately re-assessed prior to indication. VI KO MD FACP FAC CCDS Jun 07, 2022 13:58
[2022-06-07] MEDS ORDERED: ALPRAZolam 0.25 MG (XANAX) TAB PO PRN (14:00)
[2022-06-07] MEDS ORDERED: PATIENT MAY USE OWN MEDS, ALL PO SCH (14:00)
[2022-06-07] MEDS ORDERED: ONDANSETRON 4 MG (ZOFRAN) ORAL DISSOLVE TAB PO PRN (14:00)
[2022-06-07] MEDS ORDERED: RX-CYCLOBENZAPRINE 10 MG (FLEXERIL) TAB PPK#3 PO PRN (14:00)
[2022-06-07] MEDS: NS IV 1000 ML 1,000 ML IV SCH (14:30)
[2022-06-07] MEDS: ONDANSETRON 4 MG (ZOFRAN) ORAL DISSOLVE TAB PO SCH ×2 (15:34→20:51)
--- NOTE | 2022-06-07 15:38 | CARDIAC CATHETERIZATION ---
DATE OF SERVICE: 06/07/2022 CARDIAC CATHETERIZATION AND CORONARY INTERVENTION REPORT The patient is a 57-year-old lady, who is known to have coronary artery disease. A recent myocardial perfusion imaging study indicated significant anteroapical ischemia. Cardiac catheterization was recommended. Informed consent was obtained. DESCRIPTION OF PROCEDURE: She was brought to the cardiac catheterization laboratory in a fasting state. The right groin was prepared and draped in the usual sterile fashion. Lidocaine 1% was used for local anesthesia. Modified Seldinger technique was used to advance a 5-[place] sheath in the right femoral artery, 5-[place] JL4 catheter was used for left coronary angiography, 5[place] JR4 catheter for right coronary angiography, 5-[place] pigtail catheter was used for left heart catheterization and left ventricular angiography. Subsequently, percutaneous intervention was carried out to the left anterior descending and it is described below. PERCUTANEOUS INTERVENTION OF THE LEFT ANTERIOR DESCENDING ARTERY We exchanged the sheath over a wire for a 6-[place]izen [place] sheath. We gave 5000 units of intravenous heparin. A double bolus of Integrilin was given during the procedure. We used a 6-[place]izen [place] JL4 guide catheter. We advanced a ChoICE extra support wire across the lesion in the mid left anterior descending and the tip was placed in the distal vessel. We carried out balloon angioplasty with a 2.0 x 12 mm balloon. The lesion was subsequently stented with Skypoint 2.25 x 12 mm stent that was deployed at 16 atmospheres achieving a final stent lumen size of 2.53. Subsequent angiography revealed 0% residual stenosis at the previous site of 90% stenosis in the mid left anterior descending. The distal left anterior descending artery has multiple up to 50 to 60% stenoses. These were not intervened on. The first diagonal branch, left anterior descending artery has severe ostial and proximal and mid vessel disease. This vessel is of a small caliber and is not amenable to intervention. HEMODYNAMICS: Left ventricular end-diastolic pressure following coronary angiography was 12 mmHg. There was no significant pressure gradient on pullback across the aortic valve. Ascending aortic pressure was 126/81 with a mean of 98 mmHg. CORONARY ANGIOGRAPHY: Left main coronary artery is free of significant disease. Left anterior descending artery had 90% mid vessel stenosis. This was successfully stented with Skypoint 2.25 x 12 mm stent. Distal left anterior descending artery has moderate disease that was not intervened on. The first diagonal branch, left anterior descending artery has severe ostial, proximal and mid vessel disease, but is not amenable to intervention on account of small vessel size. The left circumflex artery has a widely patent stent in its mid portion. The first obtuse marginal branch is of a relatively small caliber and has approximately 60% to 70% ostial and proximal stenosis. The right coronary artery is dominant. It has patent stents in its proximal and mid portions. The stents do not exhibit significant in-stent restenosis. Distal right coronary artery has diffuse mild to moderate disease. Right coronary artery is dominant. LEFT VENTRICULAR ANGIOGRAPHY: Left ventricular angiography showed well preserved global left ventricular systolic function with ejection fraction of approximately 55% to 60%. There is a localized segment of apical dyskinesis. CONCLUSIONS: 1. Coronary artery disease primarily consisting of 90% mid vessel stenosis of the left anterior descending that was successfully stented with Skypoint 2.25 x 12 mm stent. The first diagonal branch has severe disease, but is of small caliber and not amenable to intervention. The left circumflex artery has a widely patent stent in its mid portion. The first obtuse marginal branch has 60% to 70% ostial and proximal stenosis and is of a relatively small caliber. The right coronary artery is dominant and has patent stents in its proximal and mid portions and has diffuse mild to moderate disease in its distal portion. 2. Localized area of apical dyskinesis. 3. Well preserved global left ventricular systolic function with ejection fraction approximately 55% to 60%. 4. Mildly elevated left ventricular end-diastolic pressure. DISCUSSION AND RECOMMENDATIONS: She is being hospitalized for overnight observation after today's procedure and medications will be optimized as far as possible. Job ID: [id number] DocumentID: [id number] Dictated Date: 06/07/2022 13:53:33 Mental Hygiene Consultant Date: 06/07/2022 15:38:05 Dictated By: VI KO MD, MA, FACP, FACC, MTDD
[2022-06-07] MEDS ORDERED: MELATONIN 10 MG TABLET PO PRN (16:15)
[2022-06-07] MEDS ORDERED: CYCLOBENZAPRINE 10 MG (FLEXERIL) TAB PO PRN (16:15)
[2022-06-07] MEDS: ALPRAZolam 0.25 MG (XANAX) TAB PO PRN (20:48)
[2022-06-07] MEDS: DICYCLOMINE 20 MG TABLET PO SCH (20:48)
[2022-06-07] MEDS ORDERED: NON-FORMULARY MEDICATION 1 EA EA (Dicyclomine HCl 20 MG) PO SCH (21:00)
[2022-06-07] MEDS ORDERED: DICYCLOMINE 10 MG (BENTYL) CAP PO SCH (21:00)
[2022-06-08] MEDS: NS IV 1000 ML 1,000 ML IV SCH
[2022-06-08] MEDS: ONDANSETRON 4 MG (ZOFRAN) ORAL DISSOLVE TAB PO SCH ×2 (02:48→08:59)
[2022-06-08 03:58] VITALS: BP 131/89
[2022-06-08 06:13] LABS: BASOPHILS % (AUTO) 0 % (0-10); EOSINOPHILS # (AUTO) 0.3 10^3/uL (0.0-0.3); EOSINOPHILS % (AUTO) 5 % (0-10); HEMATOCRIT 35 % (35-52); HEMOGLOBIN 11.6 g/dL (11.5-16.0); LYMPHOCYTES # (AUTO) 1.2 10^3/uL (1.0-4.0); LYMPHOCYTES % (AUTO) 17 % (12-44); MEAN CORPUSCULAR HEMOGLOBIN 27 pg (25-34); MEAN CORPUSCULAR HGB CONC 33 g/dL (32-36); MEAN CORPUSCULAR VOLUME 82 fL (80-99); MEAN PLATELET VOLUME 9.5 fL (9.0-12.2); MONOCYTES # (AUTO) 0.7 10^3/uL (0.0-1.0); MONOCYTES % (AUTO) 10 % (0-12); NEUTROPHILS # (AUTO) 4.8 10^3/uL (1.8-7.8); NEUTROPHILS % (AUTO) 68 % (42-75); PLATELET COUNT 241 10^3/uL (130-400); WHITE BLOOD COUNT 7.1 10^3/uL (4.3-11.0)
[2022-06-08 06:24] LABS: POTASSIUM 3.7 MMOL/L (3.6-5.0)
[2022-06-08 06:25] LABS: CALCIUM 8.9 MG/DL (8.5-10.1)
[2022-06-08 06:29] LABS: CREATININE SERUM 0.94 MG/DL (0.60-1.30)
[2022-06-08 08:00] VITALS: BP 139/92
--- NOTE | 2022-06-08 08:23 | Progress Note - Cardiology ---
Cardiology SOAP Progress Note Objective: I&O/Vital Signs 06/07/22 06/08/22 06/08/22 06/08/22 23:20 01:00 03:58 07:00 Pulse 73 71 69 65 Resp 16 16 B/P (MAP) 114/76 (89) 131/89 (103) Pulse Ox 96 96 O2 Delivery Room Air Room Air 06/08/22 08:00 Temp 36.4 Pulse 76 Resp 12 B/P (MAP) 139/92 (108) Pulse Ox 98 O2 Delivery Room Air Side: right Bruising: mild bruising Constitutional: AAO x 3, well-developed, well-nourished Respiratory: No accessory muscle use, No respiratory distress; chest expansion is symmetric, chest is bilaterally symmetric, lungs clear to auscultation Cardiovascular: regular rate-rhythm; No JVD; S1 and S2 Gastrointestional: No tender; soft, round, audible bowel sounds Extremities: no lower extremity edema bilateral Neurologic/Psychiatric: grossly intact (moves all extremities) Skin: No rash on exposed areas, No ulcerations on exposed areas Results/Procedures: Labs Laboratory Tests 06/07/22 10:38: White Blood Count 7.3, Red Blood Count 4.85, Hemoglobin 13.0, Hematocrit 40, Mean Corpuscular Volume 82, Mean Corpuscular Hemoglobin 27, Mean Corpuscular Hemoglobin Concent 33, Red Cell Distribution Width 14.0, Platelet Count 249, Mean Platelet Volume 9.3, Sodium Level 137, Potassium Level 4.3, Chloride Level 106, Carbon Dioxide Level 19L, Anion Gap 12, Blood Urea Nitrogen 18, Creatinine 1.14, Estimat Glomerular Filtration Rate 56, BUN/Creatinine Ratio 16, Glucose Level 94, Calcium Level 9.2, Corrected Calcium 9.2, Total Bilirubin 0.4, Aspartate Amino Transf (AST/SGOT) 24, Alanine Aminotransferase (ALT/SGPT) 20, Al kaline Phosphatase 116, Total Protein 7.9, Albumin 4.0, Triglycerides Level 139, Cholesterol Level 160, LDL Cholesterol Direct 102, VLDL Cholesterol 28, HDL Cholesterol 36L 06/07/22 11:35: Prothrombin Time 14.3, INR Comment 1.1, Activated Partial Thromboplast Time 29 06/08/22 06:08: White Blood Count 7.1, Red Blood Count 4.30, Hemoglobin 11.6, Hematocrit 35, Mean Corpuscular Volume 82, Mean Corpuscular Hemoglobin 27, Mean Corpuscular Hemoglobin Concent 33, Red Cell Distribution Width 14.3, Platelet Count 241, Mean Platelet Volume 9.5, Sodium Level 135, Potassium Level 3.7, Chloride Level 106, Carbon Dioxide Level 19L, Anion Gap 10, Blood Urea Nitrogen 17, Creatinine 0.94, Estimat Glomerular Filtration Rate 71, BUN/Creatinine Ratio 18, Glucose Level 88, Calcium Level 8.9, Immature Granulocyte % (Auto) 0, Neutrophils (%) (Auto) 68, Lymphocytes (%) (Auto) 17, Monocytes (%) (Auto) 10, Eosinophils (%) (Auto) 5, Basophils (%) (Auto) 0, Neutrophils # (Auto) 4.8, Lymphocytes # (Auto) 1.2, Monocytes # (Auto) 0.7, Eosinophils # (Auto) 0.3, Basophils # (Auto) 0.0, Immature Granulocyte # (Auto) 0.0, Magnesium Level 2.0 Microbiology 06/07/22 MRSA Screen - Final, Complete MRSA not isolated Laboratory Tests 06/07/22 10:38 06/08/22 06:08 A/P: Assessment: CAD - h/o cor stenting at [facility] in Oct 2019 (to treat angina, not to treat UT, according to the patient). - Last card cath on 03/05/20: patent stents in the mid left circumflex and the mid right coronary arteries. There is moderate diffuse disease of all coronary arteries. There is moderately severe diffuse disease of the distal left anterior descending. A small caliber obtuse marginal has 70% to 80% ostial stenosis. Normal left ventricular end-diastolic pressure. - Echo of 03/05/20: LVEF 60-65%, mild to mod TR, RVSP 35-40 mmHg, mild dilatation of LA - MPI 05-17-22: This study is indicative of a moderate apical ischemia. Apical hypokinesis. Well preserved global left ventricular systolic function with a calculated ejection fraction 71% - Cardiac cath of 06-07-22: Coronary artery disease primarily consisting of 90% mid vessel stenosis of the left anterior descending that was successfully stented with Skypoint 2.25 x 12 mm stent. The first diagonal branch has severe disease, but is of small caliber and not amenable to intervention. The left circumflex artery has a widely patent stent in its mid portion. The first obtuse marginal branch has 60% to 70% ostial and proximal stenosis and is of a relatively small caliber. The right coronary artery is dominant and has patent stents in its proximal and mid portions and has diffuse mild to moderate disease in its distal portion. Localized area of apical dyskinesis. Well preserved global left ventricular systolic function with ejection fraction approximately 55% to 60%. Mildly elevated left ventricular end-diastolic pressure. HTN with component of white coat HTN - controlled GI - S/p colectomy and ileostomy for intestinal obstruction - subsequent ileostomy reversal in May 2020 - Replacement of ileostomy at [facility] in January 2021; subsequent prolapsed bowel with repair; has had recurrent prolapsed bowel for which she has had re- current surgery at [facility] in February 2022 Plan: S/p successful coronary intervention on 06-07-22 OK to discharge home Continue DAPT, BB and statin Advise f/u in 4 - 6 weeks or sooner if needed BENJI WILLOUGHBY Jun 08, 2022 08:23
[2022-06-08] MEDS ORDERED: ATOR20TA66 PO (08:24)
--- NOTE | 2022-06-08 08:25 | Discharge Inst-Cardiology ---
Discharge Inst-Cardiac Discharge Medications New Medications: Atorvastatin Calcium (Atorvastatin Calcium) 20 Mg Tablet 20 MG PO HS, #30 TAB 3 Refills Continued Medications: Alprazolam (Xanax) 0.25 Mg Tablet 0.25 MG PO Q8H PRN for ANXIETY, #30 TAB Amlodipine Besylate (Amlodipine Besylate) 5 Mg Tablet 5 MG PO DAILY, TAB Aspirin (Aspirin EC) 81 Mg Tablet.dr 81 MG PO DAILY, TAB Carvedilol (Carvedilol) 12.5 Mg Tablet 12.5 MG PO BID, TAB Citalopram Hydrobromide (Citalopram HBr) 20 Mg Tablet 20 MG PO DAILY, TAB Clopidogrel Bisulfate (Plavix) 75 Mg Tablet 75 MG PO DAILY, TAB Cyclobenzaprine HCl (Cyclobenzaprine HCl) 10 Mg Tablet 10 MG PO HS PRN for MUSCLE SPASMS, TAB Dicyclomine HCl (Dicyclomine HCl) 20 Mg Tablet 20 MG PO TID, TAB Iron,Carbonyl/Ascorbic Acid (Iron 100-Vitamin C Tablet) 100 Mg-250 Mg Tablet 1 EACH PO, TAB Melatonin (Melatonin) 10 Mg Tablet 10 MG PO DAILY, TAB Ondansetron (Ondansetron Odt) 4 Mg Tab.rapdis 4 MG PO Q8H PRN for NAUSEA/VOMITING-1ST LINE, TAB Ondansetron (Ondansetron Odt) 4 Mg Tab.rapdis 4 MG PO Q6H, #10 TAB Pantoprazole Sodium (Pantoprazole Sodium) 40 Mg Tablet.dr 40 MG PO DAILY, TAB Pantoprazole Sodium (Pantoprazole Sodium) 20 Mg Tablet.dr 20 MG PO DAILY, TAB Tramadol HCl (Tramadol HCl) 50 Mg Tablet 50 MG PO Q6H PRN for PAIN-MODERATE (5-7), TAB New, Converted or Re-Newed RX: Transmitted to Pharmacy Patient Instructions Patient Instructions: Please schedule follow up appointment to see Dr. Crump in 4-6 weeks BENJI WILLOUGHBY Jun 08, 2022 08:25
[2022-06-08] MEDS ORDERED: MELATONIN 10 MG TABLET PO SCH (09:00)
[2022-06-08] MEDS ORDERED: CLOPIDOGREL 75 MG (PLAVIX) TABLET PO SCH (09:00)
[2022-06-08] MEDS ORDERED: PANTOPRAZOLE 40 MG (PROTONIX) TAB PO SCH (09:00)
[2022-06-08] MEDS ORDERED: ASPIRIN E.C. 81 MG (ECOTRIN) TAB PO SCH (09:00)
[2022-06-08] MEDS ORDERED: amLODIPine 5 MG (NORVASC) TAB PO SCH (09:00)
[2022-06-08] MEDS ORDERED: PANTOPRAZOLE 20 MG TABLET (PROTONIX) PO SCH (09:00)
[2022-06-08] MEDS: DICYCLOMINE 20 MG TABLET PO SCH (09:01)
[2022-06-08] MEDS: ALPRAZolam 0.25 MG (XANAX) TAB PO PRN (09:10)
--- NOTE | 2022-06-08 12:51 | Progress Note - Cardiology ---
Cardiology SOAP Progress Note Subjective: No cp or palp or syncope or shortness of breath No groin or leg discomfor No n/v/d Objective: I&O/Vital Signs 06/08/22 06/08/22 06/08/22 06/08/22 01:00 03:58 07:00 08:00 Temp 36.4 Pulse 71 69 65 76 Resp 16 12 B/P (MAP) 131/89 (103) 139/92 (108) Pulse Ox 96 98 O2 Delivery Room Air Room Air 06/08/22 08:00 O2 Delivery Room Air Side: right Bruising: mild bruising Constitutional: AAO x 3, well-developed, well-nourished Respiratory: No accessory muscle use, No respiratory distress; chest expansion is symmetric, chest is bilaterally symmetric, lungs clear to auscultation Cardiovascular: regular rate-rhythm; No JVD; S1 and S2 Gastrointestional: No tender; soft, round, audible bowel sounds Extremities: no lower extremity edema bilateral Neurologic/Psychiatric: grossly intact (moves all extremities) Skin: No rash on exposed areas, No ulcerations on exposed areas Results/Procedures: Labs Laboratory Tests 06/08/22 06:08: White Blood Count 7.1, Red Blood Count 4.30, Hemoglobin 11.6, Hematocrit 35, Mean Corpuscular Volume 82, Mean Corpuscular Hemoglobin 27, Mean Corpuscular Hemoglobin Concent 33, Red Cell Distribution Width 14.3, Platelet Count 241, Mean Platelet Volume 9.5, Immature Granulocyte % (Auto) 0, Neutrophils (%) (Auto) 68, Lymphocytes (%) (Auto) 17, Monocytes (%) (Auto) 10, Eosinophils (%) (Auto) 5, Basophils (%) (Auto) 0, Neutrophils # (Auto) 4.8, Lymphocytes # (Auto) 1.2, Monocytes # (Auto) 0.7, Eosinophils # (Auto) 0.3, Basophils # (Auto) 0.0, Immature Granulocyte # (Auto) 0.0, Sodium Level 135, Potassium Level 3.7, Chloride Level 106, Carbon Dioxide Level 19L, Anion Gap 10, Blood Urea Nitrogen 17, Creatinine 0.94, Estimat Glomerular Filtration Rate 71, BUN/Creatinine Ratio 18, Glucose Level 88, Calcium Level 8.9, Magnesium Level 2.0 Microbiology 06/07/22 MRSA Screen - Final, Complete MRSA not isolated Laboratory Tests 06/07/22 10:38 06/08/22 06:08 A/P: Assessment: CAD - h/o cor stenting at [facility] in Oct 2019 (to treat angina, not to treat MN, according to the patient). - Last card cath on 03/05/20: patent stents in the mid left circumflex and the mid right coronary arteries. There is moderate diffuse disease of all coronary arteries. There is moderately severe diffuse disease of the distal left anterior descending. A small caliber obtuse marginal has 70% to 80% ostial stenosis. Normal left ventricular end-diastolic pressure. - Echo of 03/05/20: LVEF 60-65%, mild to mod TR, RVSP 35-40 mmHg, mild dilatation of LA - MPI 05-17-22: This study is indicative of a moderate apical ischemia. Apical hypokinesis. Well preserved global left ventricular systolic function with a calculated ejection fraction 71% - Cardiac cath of 06-07-22: Coronary artery disease primarily consisting of 90% mid vessel stenosis of the left anterior descending that was successfully stented with Skypoint 2.25 x 12 mm stent. The first diagonal branch has severe disease, but is of small caliber and not amenable to intervention. The left circumflex artery has a widely patent stent in its mid portion. The first obtuse marginal branch has 60% to 70% ostial and proximal stenosis and is of a relatively small caliber. The right coronary artery is dominant and has patent stents in its proximal and mid portions and has diffuse mild to moderate disease in its distal portion. Localized area of apical dyskinesis. Well preserved global left ventricular systolic function with ejection fraction approximately 55% to 60%. Mildly elevated left ventricular end-diastolic pressure. HTN with component of white coat HTN - controlled GI - S/p colectomy and ileostomy for intestinal obstruction - subsequent ileostomy reversal in May 2020 - Replacement of ileostomy at [facility] in January 2021; subsequent prolapsed bowel with repair; has had recurrent prolapsed bowel for which she has had re- current surgery at [facility] in February 2022 Plan: S/p successful coronary intervention on 06-07-22 OK to discharge home Continue DAPT, BB and statin Advise f/u in 4 - 6 weeks or sooner if needed VI KO MD FACP FAC CCDS Jun 08, 2022 12:51
== END 2022-06-08 13:25 | disposition home or self-care (01) ==
LOC: CATH 09:53 → CSD 12:55 → CATH 06-08 13:25
PROVIDERS: ATTEND Internal Medicine Cardiovascular Disease
DX: I25.10 Atherosclerotic heart disease of native coronary artery without angina pectoris (principal); I10 Essential (primary) hypertension; I07.1 Rheumatic tricuspid insufficiency; I15.8 Other secondary hypertension
CPT/HCPCS: 36415; 80048; 80053; 80061; 83735; 85025; 85027; 85610; 85730; 87081; 93458

== ENCOUNTER → 2023-01-19 | Outpatient (CLI) | payer MEDICARE, MEDICAID ==
[~2023-01-19] MED LIST changes: +ATOR20TA66 PO; +CARV12.53 PO; +CITA20TA9 PO; +CLOP-31 PO; -CLOP75TA69 PO; +DICY20TA PO; +IRON1TAB89 PO; +MELA10TA2 PO; +PANT20TA18 PO; +TRAM50TA3 PO
[2023-01-19 13:23] LABS: HEMATOCRIT 45 % (35-52); HEMOGLOBIN 15.2 g/dL (11.5-16.0); MEAN CORPUSCULAR HEMOGLOBIN 26 pg (25-34); MEAN CORPUSCULAR HGB CONC 34 g/dL (32-36); MEAN CORPUSCULAR VOLUME 77 fL (80-99); MEAN PLATELET VOLUME 9.6 fL (9.0-12.2); PLATELET COUNT 407 10^3/uL (130-400); WHITE BLOOD COUNT 11.9 10^3/uL (4.3-11.0)
[2023-01-19 13:46] LABS: POTASSIUM 5.9 MMOL/L (3.6-5.0)
[2023-01-19 13:47] LABS: ALBUMIN 4.3 GM/DL (3.2-4.5); BILIRUBIN,TOTAL 0.3 MG/DL (0.1-1.0); CALCIUM 9.6 MG/DL (8.5-10.1); CREATININE SERUM 1.15 MG/DL (0.60-1.30); TOTAL PROTEIN 8.8 GM/DL (6.4-8.2)
== END ==
PROVIDERS: ATTEND Family Medicine
DX: D64.9 Anemia, unspecified (principal); R00.0 Tachycardia, unspecified
CPT/HCPCS: 80053; 85027